=== PATIENT | female | born 1945 | race Caucasian/White ===

== ENCOUNTER 2017-10-19 12:57 | Inpatient (IN) | payer MEDICARE, OTHER, SELFPAY ==
[2017-10-08 11:19] VITALS: BP 150/87; PULSE 54; RESP 17; TEMP 37.1; O2SAT 99; BMI 42.7
--- NOTE | 2017-10-15 15:58 | CASEMGMT ---
TAMIE DAN called and spoke with patient regarding discharge needs after upcoming surgery. Patient states that she has a walker and cane, denies need for further DME. Patient states that she is setup with [facility] for outpatient therapy and that her will be providing transportation. TAMIE DAN will follow up with patient after surgery and will assist with discharge needs.
[2017-10-19] VITALS (12 sets, daily range): BP systolic 156–213; BP diastolic 60–90; PULSE 53–70; RESP 16–18; TEMP 36.7–37; O2SAT 94–100; BMI 42.7
[2017-10-19] MEDS: Acetaminophen 500 MG Tablet 1000 MG PO ×2 (13:38→22:08)
[2017-10-19] MEDS: Celecoxib 200 MG Capsule 400 MG PO (13:38)
[2017-10-19] MEDS: oxyCODONE HCl Cr 10 MG Tablet PO (13:39)
[2017-10-19] MEDS: Scopolamine 1mg/72hr Patch 1 PATCH TD (14:05)
--- NOTE | 2017-10-19 14:55 | KNEE_PTH ---
PATIENT: BIANCA MORAES LOC: [id number] U#:[id number] AGE/SX: 72/F ROOM: [facility] [place] RE10/19/[address]: Dr. Last Blanchard DO : 1945 BED: 1 DIS: 10/20/2017 SPEC #: [id number] RECD: 10/20/17 14:55 STATUS: WES REQ #: [id number] ARNALDO: 10/19/17 14:[address]: Last Blanchard DEPT: SURGICAL PATHOLOGY RECD BY: Chacorta Gill ENTERED: 10/20/17 11:58 SP TYPE: TOTAL KNEE OTHR DR: Dr. Miladys Del Valle DO Tissues: Knee, NOS Procedures: Decalcification bone/plaque Surgery Specimen Level IV HEADER OPERATION: Left total knee replacement PRE-OP DIAGNOSIS: Unilateral primary osteoarthritis left knee TISSUE SUBMITTED: Left knee bone chips MICROSCOPIC DIAGNOSIS Left knee bone, total knee replacement: Pieces of bone with degenerative osteoarthritic changes. CHANDRA:lucas 10/23/17 MICROSCOPIC DESCRIPTION Slides are reviewed. GROSS DESCRIPTION Received is one container designated left knee bone chips. The specimen consists of multiple fragments of kaminski-yellow bone measuring in aggregate 11 x 8 x 3.5 cm. No soft tissue is identified. A number of bony fragments contain articular surfaces consistent with tibial plateau and femoral condyle and displaying prominent osteophyte formation and bone erosion. Geologic Technician sections are submitted in one cassette after decalcification. / CHANDRA:lucas 10/20/17 TC:5 [facility]: [id number], [id number]
--- NOTE | 2017-10-19 15:52 | OP.PN_ITS ---
Immediate Post-Op Note Date of Procedure: 10/19/17 Primary Surgeon/Physician: Last Blanchard shipping receiving manager: Haim Madison Pre-Operative Diagnosis: OA left knee Post-Operative Diagnosis: same Surgery/Procedure Performed:: Left TKR Description of Surgical Findings:: see note Estimated Blood Loss: 25cc Specimen's removed: bone Type of Anesthesia:: Spinal ASA Class: ASA2 Mod Systematic Disease - Admit VTE Documentation VTE Present on Admission: No VTE Mechan Device Prophylaxis: SCD's, Thigh High MARCUS Hose VTE Pharm Prophylaxis ordered?: Yes
--- NOTE | 2017-10-19 16:34 | EKG12_ITS ---
Test Reason : HYPERTENSION Blood Pressure : / mmHG Vent. Rate : 052 BPM Atrial Rate : 052 BPM P-R Int : 278 ms QRS Dur : 104 ms QT Int : 462 ms P-R-T Axes : 063 033 019 degrees QTc Int : 429 ms Sinus bradycardia with 1st degree A-V block Otherwise normal ECG Confirmed by ERNA CAMPOS, DIPESH ([id number]), film and video editor GIRISH FREY ([id number]) on 10/23/2017 8:35:09 AM Referred By: Last Blanchard Confirmed By:DIPESH UMANZOR MD
--- NOTE | 2017-10-19 17:42 | SUR.PHASEI ---
SBP RUNNING IN LOW 200'S PERIODICALLY IN PACU, WAS WELL AT THE END OF THE O.R. CASE PER REPORT. PATIENT DENIES ANY NO CP, VISION CHANGES, HEADACHE, OR OTHER C/O. DR NEVILLE CONFERRED WITH DR GONZALEZ BY PHONE, NO FURTHER TREATMENT NEEDED AT THIS TIME. PATIENT DOES STATE THIS HAS HAPPENED TO ME BEFORE AFTER SURGERY. WILL NOTIFY MED-SURG NURSING.
[2017-10-19] MEDS: Lactated Ringers 1,000 ML 125 ML IV (17:55)
[2017-10-19 18:09] LABS: Hemoglobin 12.1 g/dl (12.0-15.0); Mean Corp Hgb Conc 31.8 g/gl (32-36); Mean Corpuscular Hgb 29.8 pg (27.0-32.0); Mean Corpuscular Volume 93.6 fL (81-99); Mean Platelet Vol. 10.4 fl (6.2-12.0); Platelet Count 288 K/mm3 (150-450); RBC Distribution Width CV 12.5 % (11.6-14.6); RBC Distribution Width SD 41.9 fl (35.1-43.9); Red Blood Count 4.06 M/mm3 (4.2-5.4); White Blood Count 10.6 K/mm3 (4.4-11.0)
[2017-10-19 18:12] LABS: Anion Gap 9 (5-15); BUN 19 mg/dL (7-18); BUN/Creat Ratio 27.8 RATIO (10-20); Calcium,Total 8.8 mg/dL (8.5-10.1); Chloride 106 mmol/L (98-107); Creatinine, Serum 0.68 mg/dL (0.55-1.02); EST Glomerular Filtration Rate 90 mL/min (>60); Est Glom Filt Rate - Afr Amer 109 mL/min (>60); Estimated Creatinine Clearance 79.42 ml/min; Glucose 93 mg/dL (74-106); Sodium Level 141 mmol/L (136-145)
[2017-10-19 18:14] LABS: Scan Indicated on CBC? Y/N NO
--- NOTE | 2017-10-19 20:55 | NURSING ---
Oxygen sats reading 89%. O2 applied at 1L via n/c and sats quickly abeba to 96%
[2017-10-19] MEDS: Carvedilol 12.5 MG Tablet PO (22:08)
[2017-10-19] MEDS: Aspirin 325 MG Tablet PO (22:09)
[2017-10-20 04:15] VITALS: BP 143/57; PULSE 56; RESP 16; TEMP 37.1; O2SAT 97
[2017-10-20] MEDS: Acetaminophen 500 MG Tablet 1000 MG PO ×2 (06:18→13:36)
[2017-10-20 06:30] LABS: Hematocrit 33.7 % (37-47); Hemoglobin 10.7 g/dl (12.0-15.0); Mean Corp Hgb Conc 31.8 g/gl (32-36); Mean Corpuscular Hgb 29.5 pg (27.0-32.0); Mean Corpuscular Volume 92.8 fL (81-99); Mean Platelet Vol. 10.2 fl (6.2-12.0); Platelet Count 222 K/mm3 (150-450); RBC Distribution Width CV 12.8 % (11.6-14.6); RBC Distribution Width SD 43.1 fl (35.1-43.9); Red Blood Count 3.63 M/mm3 (4.2-5.4); White Blood Count 7.9 K/mm3 (4.4-11.0)
[2017-10-20 06:36] LABS: Anion Gap 8 (5-15); BUN 22 mg/dL (7-18); BUN/Creat Ratio 35.6 RATIO (10-20); Calcium,Total 8.4 mg/dL (8.5-10.1); Chloride 106 mmol/L (98-107); Creatinine, Serum 0.62 mg/dL (0.55-1.02); EST Glomerular Filtration Rate 102 mL/min (>60); Est Glom Filt Rate - Afr Amer 123 mL/min (>60); Estimated Creatinine Clearance 79.42 ml/min; Glucose 126 mg/dL (74-106); Sodium Level 141 mmol/L (136-145)
[2017-10-20 06:37] LABS: Scan Indicated on CBC? Y/N NO
--- NOTE | 2017-10-20 07:49 | PCM.PN.ORT ---
Subjective: Pt. reports pain around the thigh from tourniquet, but knee pain is minimal. - Physical Exam General: Alert, Oriented x3, No apparent distress HEENT: Atraumatic Oral: Moist Mucosa Extremities: No clubbing, No cyanosis, No edema, Capillary Refill Less than 3 Seconds, No Calf Tenderness Skin: Incision - stable Neurological: Neuro grossly intact Vital Signs Temp Pulse Resp BP Pulse Ox 98.8 F 56 L 16 143/57 H 97 10/20/17 04:15 10/20/17 04:15 10/20/17 04:15 10/20/17 04:15 10/20/17 04:15 Oxygen Flow Rate (L/min) 2 Oxygen Delivery Method Room Air Weight: 211 lb 13.828 oz Body Mass Index (BMI) 42.7 Intake and Output for Last 24 Hours 10/18/17 10/19/17 10/20/17 23:59 23:59 23:59 Intake Total 1949 789 / 789 Output Total 200 / 200 Balance 1949 589 / 589 Laboratory Tests Past 24 Hrs 10/19/17 10/19/17 10/20/17 17:50 17:50 05:50 WBC 10.6 7.9 RBC 4.06 L 3.63 L Hgb 12.1 10.7 L Hct 38.0 33.7 L MCV 93.6 92.8 MCH 29.8 29.5 MCHC 31.8 L 31.8 L RDW 12.5 12.8 RDW Differential 41.9 43.1 Plt Count 288 222 MPV 10.4 10.2 Sodium 141 Potassium 4.0 Chloride 106 Carbon Dioxide 26.0 Anion Gap 9 BUN 19 H Creatinine 0.68 Estim Creat Clear Calc 79.42 Est GFR (MDRD) Af Amer 109 Est GFR (MDRD) Non-Af 90 BUN/Creatinine Ratio 27.8 H Glucose 93 Calcium 8.8 10/20/17 05:50 WBC RBC Hgb Hct MCV MCH MCHC RDW RDW Differential Plt Count MPV Sodium 141 Potassium 4.0 Chloride 106 Carbon Dioxide 27.0 Anion Gap 8 BUN 22 H Creatinine 0.62 Estim Creat Clear Calc 79.42 Est GFR (MDRD) Af Amer 123 Est GFR (MDRD) Non-Af 102 BUN/Creatinine Ratio 35.6 H Glucose 126 H Calcium 8.4 L Medical Necessity - Tobacco Use Smoking Status: Former smoker Tobacco Use: Cigarettes Assessment/Plan All Active Problems (Last Reviewed 07/30/17 @ 14:43 by Antoinette Kaplan) SVT (supraventricular tachycardia) (Acute) Premature ventricular contraction (Acute) Premature atrial contractions (Acute) Sinus bradycardia (Acute) Palpitations (Acute) s/p L TKR PT today, hoping to go home tonight. Will get everything ready to do so and check back on her this evening.
--- NOTE | 2017-10-20 08:09 | DCINST_ITS ---
Discharge Diet: No Restrictions Discharge Activity: May Not Drive, May Shower, Use Walker May shower in (days): 3 Ice area for (Minutes): 20 - each hour while awake. Weight Bearing Status: Weight bearing as tolerated Elevate: Operative Extremity Additional Activity Instructions:: Wear elastic stockings for 2 weeks after your surgery. Call your doctor if your incision/area has: Continuous Slow Oozing, Sudden Increased Bleeding, Increased Pain/ Swelling, Increased Redness, Foul Smelling Discharge Call your doctor if you observe: Fever of 101 or Higher, Coldness, Increased Pain - in extremity, Numbness or Tingling, Change in Color, Calf discomfort, Uncontrolled pain Change Dressing in (Days):: 0 - and daily as needed. Remove Dressing in (days):: 9 Cleanse incision/area with: Soap & Water Allergies/Adverse Reactions: Allergies Iodinated Contrast- Oral and IV Dye Allergy (Intermediate, Verified 10/08/17 11: 12) Rash Sulfa (Sulfonamide Antibiotics) Allergy (Verified 10/08/17 11:12) Rash Medications to take at Discharge Calcium Carbonate/Vitamin D3 [Calcium 500+D Tablet Chew] 1 ea PO BID 09/12/15 Multivitamin [Daily Multiple Vitamin] 1 ea PO DAILY 09/12/15 Omeprazole [Prilosec] 20 mg PO DAILY 09/12/15 Venlafaxine XR [Effexor Xr] 37.5 mg PO DAILY 09/12/15 Carvedilol 12.5 mg PO BID 10/08/17 Acetaminophen [Tylenol] 1,000 mg PO Q8 #90 tab 10/20/17 Aspirin 325 mg PO BIDCM #60 tab 10/20/17 Oxycodone [Oxyir] 5 - 10 mg PO Q4H PRN PRN 7 Days #90 tab 10/20/17 The following prescriptions were given: Oxycodone [Oxyir] 5 - 10 mg PO Q4H PRN PRN 7 Days #90 tab PRN Reason: Mod-Severe Pain (4-10/10) Acetaminophen [Tylenol] 1,000 mg PO Q8 #90 tab Aspirin 325 mg PO BIDCM #60 tab Primary Care Physician: Miladys Del Valle DO [Primary Care Provider] - Test Results: Test results from this visit will be discussed in further detail at your follow- up appointment, if applicable. Please Follow Up With: Knapic,Last, DO When: see pink sheet
[2017-10-20 08:20] VITALS: BP 160/60; PULSE 56; RESP 18; TEMP 36.7; O2SAT 95
[2017-10-20] MEDS: Multivitamins,Therapeutic Tablet 1 TABLET PO (08:23)
[2017-10-20] MEDS: Aspirin 325 MG Tablet PO (08:23)
[2017-10-20] MEDS: Venlafaxine XR 37.5 MG Capsule PO (08:24)
[2017-10-20] MEDS: Pantoprazole Sodium 20 MG Tablet PO (08:24)
[2017-10-20] MEDS: Carvedilol 12.5 MG Tablet PO (08:24)
[2017-10-20] MEDS: oxyCODONE 5 MG Tablet PO ×2 (08:27→12:09)
--- NOTE | 2017-10-20 09:08 | CASEMGMT ---
CM INITIAL ASSESSMENT: Home: Patient lives in a two story home with first floor setup (bedroom and bathroom). She lives with her spouse. He will assist with transportation to outpatient therapy. HHS/Aides: Denies. Patient has been scheduled for outpatient therapy to start this Thursday. Her will drive her. DME: Walker at bedside and cane at home. Patient also has grab bars in shower. Denies further DME needs. Home Oxygen: Denies. [facility]acy: [facility] [place] PCP: Miladys Del Valle Specialists: Dr. Lang, Dr. Veliz (Gym Instructor) and Dr. Blanchard Patient has a follow-up appointment scheduled for 11/17/[address] Blanchard's office. Outpatient therapy to start this Thursday. DC Plan: Home with outpatient therapy. No further needs identified.
[2017-10-20 11:53] VITALS: BP 162/67; PULSE 64; RESP 18; TEMP 36.5; O2SAT 94
== END 2017-10-20 14:15 | disposition home or self-care (01) | DRG 470 ==
LOC: ACINP 12:57 → MS3 10-20 07:57
PROVIDERS: Admitting Provider Orthopaedic Surgery; Family Provider Internal Medicine; PCP Internal Medicine; Visit Provider Orthopaedic Surgery
PROC: 0SRD069 Replacement of Left Knee Joint with Oxidized Zirconium on Polyethylene Synthetic Substitute, Cemented, Open Approach (ICD-10-PCS; CPT 27447; principal; 2017-10-19 14:30)
DX: M17.12 Unilateral primary osteoarthritis, left knee (principal); R00.2 Palpitations; I10 Essential (primary) hypertension; K21.9 Gastro-esophageal reflux disease without esophagitis; L40.9 Psoriasis, unspecified; Z79.899 Other long term (current) drug therapy; Z96.651 Presence of right artificial knee joint; Z85.3 Personal history of malignant neoplasm of breast; Z90.11 Acquired absence of right breast and nipple; F41.9 Anxiety disorder, unspecified; G47.30 Sleep apnea, unspecified; Z87.891 Personal history of nicotine dependence
CPT/HCPCS: 36415; 80048; 85027; 87081; 88305; 88311; 93005; 97162; 97166; 97530; C1776; J7120; A4216; J2405; J3260

== ENCOUNTER → 2018-07-01 | Outpatient (CLI) | payer MEDICARE, OTHER, SELFPAY ==
--- NOTE | 2018-07-01 12:17 | CT_ITS ---
STUDY: CTA CHEST REASON FOR EXAM: Female, 72 years old. SOB. Right breast CA. RADIATION DOSAGE (If Supplied By Facility): CTDIvol = ( 13.45 ) mGy, DLP = ( 469.60 ) mGycm TECHNIQUE: The examination was performed with the intravenous administration of 100CC IV Isovue 370. Post-processing of the angiographic images was performed, with multiplanar reformation and 3D reconstruction. Individualized dose optimization techniques were used for this CT. COMPARISON: None. FINDINGS: The heart and pericardium are normal. The aorta is normal in caliber, with no aneurysm or dissection. There is no mediastinal mass or adenopathy. There is no hilar or axillary adenopathy. There is no evidence of pulmonary embolus. Pulmonary arteries are unremarkable. There is a moderate right pleural effusion. There is no pulmonary consolidation. There is a 7 x 5 mm nodular density at the intersection of the right minor and major fissures. No additional pulmonary nodule is noted. Fibrotic atelectatic changes are noted in the lingula. There is compressive atelectasis in the right lung base. Visualized abdomen is unremarkable. There is no osseous abnormality. Surgical clips in the right axilla are consistent with lymph node dissection. There are multiple calcifications in the right breast, nonspecific. CT/CTA Chest W/WO Contrast IMPRESSION: 1. No pulmonary embolus or aortic dissection. 2. Right pleural effusion. 3. A 7 mm right pulmonary nodule, possibly fibrotic. Given the history of primary malignancy, 3-6 month follow-up is advised. 4. Right breast calcifications, nonspecific but possibly associated with the patient's known carcinoma. Electronically Signed: Lily Cramer MD at 17:11 EDT Tel , Service support ,
[2018-07-01 12:36] LABS: Anion Gap 7 (5-15); BUN 16 mg/dL (7-18); BUN/Creat Ratio 27.2 RATIO (10-20); Calcium,Total 9.2 mg/dL (8.5-10.1); Chloride 107 mmol/L (98-107); Creatinine, Serum 0.59 mg/dL (0.55-1.02); EST Glomerular Filtration Rate 107 mL/min (>60); Est Glom Filt Rate - Afr Amer 130 mL/min (>60); Glucose 91 mg/dL (74-106); Potassium 4.1 mmol/L (3.5-5.1); Sodium Level 142 mmol/L (136-145)
[2018-07-01 13:47] VITALS: BP 196/74; PULSE 67; RESP 18; O2SAT 97; BMI 42.4
[2018-07-01] MEDS: MethylPREDNISolone 125 MG/2 ML Vial 60 MG IV (14:05)
[2018-07-01] MEDS: DiphenhydrAMINE 50 MG/ML Syringe IV (14:05)
--- NOTE | 2018-07-01 15:42 | NURSING ---
PT TOLERATED CTA WELL. DRESSED AND AMBULATED TO ELEVATOR WITHOUT DIFFICULTY.
== END | disposition home or self-care (01) ==
LOC: CT 12:02
PROVIDERS: Family Provider Internal Medicine; PCP Internal Medicine; Referring Provider Internal Medicine; Visit Provider Internal Medicine
DX: R06.02 Shortness of breath (principal)
CPT/HCPCS: 36415; 71275; 80048; Q9967

== ENCOUNTER → 2018-07-05 10:04 | Outpatient (CLI) | payer MEDICARE, OTHER, SELFPAY ==
[2018-07-01 13:47] VITALS: BMI 42.4
--- NOTE | 2018-07-05 10:09 | RAD_ITS ---
STUDY: X-RAY CHEST REASON FOR EXAM: Female, 72 years old. History of pleural effusion. TECHNIQUE: Right and left decubitus views. COMPARISON: None. FINDINGS: No significant free flowing pleural effusion is seen. RAD/Special CXR (Obl/Decub/A/L) IMPRESSION: No free flowing pleural effusion is seen. Electronically Signed: Abhinav Freeman, at 10:56 EDT , Service support ,
== END ==
PROVIDERS: Family Provider Internal Medicine; PCP Internal Medicine; Referring Provider Internal Medicine; Visit Provider Internal Medicine
DX: J90 Pleural effusion, not elsewhere classified (principal)
CPT/HCPCS: 71046

== ENCOUNTER → 2018-07-13 13:07 | Outpatient (CLI) | payer MEDICARE, OTHER, SELFPAY ==
[2018-07-01 13:47] VITALS: BMI 42.4
[2018-07-13 14:00] LABS: Absolute Lymphocyte Count 1.46 X10^3/ul (0.83-4.51); Absolute Neutrophil Count 6.4 X10^3/uL (2.0-7.7); Basophil# 0.04 X10^3/uL; Basophil% 0.5 % (0-1); Eosinophil# 0.27 X10^3/uL; Eosinophils% 3.1 % (0-5); Hematocrit 41.5 % (37-47); Hemoglobin 13.4 g/dl (12.0-15.0); Lymphocyte # 1.46 X10^3/ul (4.0); Lymphocyte % 16.6 % (19-41); Mean Corp Hgb Conc 32.3 g/gl (32-36); Mean Corpuscular Volume 89.8 fL (81-99); Mean Platelet Vol. 10.1 fl (6.2-12.0); Monocyte# 0.56 X10^3/uL; Monocyte% 6.4 % (0-10); Neutrophil # 6.42 X10^3/uL (2.7-7.7); Neutrophil % 73.1 % (47-70); Platelet Count 304 K/mm3 (150-450); RBC Distribution Width CV 12.6 % (11.6-14.6); Red Blood Count 4.62 M/mm3 (4.2-5.4); White Blood Count 8.8 K/mm3 (4.4-11.0)
[2018-07-13 14:04] LABS: Prothrombin Time (Protime)PT. 13.3 SECONDS (11.7-14.9)
[2018-07-13 14:05] LABS: POSITIVE COUNT NO; POSITIVE DIFFERENTIAL NO; POSITIVE MORPHOLOGY NO; Partial Thromboplast Time 25.8 Seconds (24.1-36.2)
[2018-07-13 14:06] LABS: Erythrocyte Sedimentation Rate 21 mm/hr (0-30)
== END ==
PROVIDERS: Family Provider Internal Medicine; PCP Internal Medicine; Referring Provider Internal Medicine Pulmonary Disease; Visit Provider Internal Medicine Pulmonary Disease
DX: Z01.812 Encounter for preprocedural laboratory examination (principal); J90 Pleural effusion, not elsewhere classified
CPT/HCPCS: 36415; 85025; 85610; 85652; 85730

== ENCOUNTER → 2018-07-14 10:37 | Outpatient (CLI) | payer MEDICARE, OTHER, SELFPAY ==
[2018-07-01 13:47] VITALS: BMI 42.4
--- NOTE | 2018-07-14 10:41 | US_ITS ---
Procedure: Sonographic survey to evaluate for size of pleural effusion in anticipation of ultrasound-guided thoracentesis. Concent: Unknown. Physician: Bharat. Date of procedure July 14, 2018. FINDINGS: Survey images of the right and left lung bases are submitted. There is a small quantity of bibasilar, uncomplicated pleural fluid. US/Chest IMPRESSION: There is not enough pleural fluid to safely perform a thoracentesis. Procedure not performed. Comment: Sonographic imaging services provided for clinical procedure. Please refer to operating physician's procedure note for additional detail. Electronically Signed: Segun Son MD at 11:59 EDT , Service support ,
== END ==
PROVIDERS: Family Provider Internal Medicine; PCP Internal Medicine; Referring Provider Internal Medicine Pulmonary Disease; Visit Provider Internal Medicine Pulmonary Disease
DX: J90 Pleural effusion, not elsewhere classified (principal)
CPT/HCPCS: 76604

== ENCOUNTER → 2018-07-30 13:37 | Outpatient (CLI) | payer MEDICARE, OTHER, SELFPAY ==
[2018-07-01 13:47] VITALS: BMI 42.4
--- NOTE | 2018-07-30 13:41 | RAD_ITS ---
STUDY: X-RAY CHEST REASON FOR EXAM: Female, 72 years old. Pleural effusion TECHNIQUE: PA and lateral views of the chest. COMPARISON: July 05, 2018 minutes a chest x-ray, July 14, 2018 Thoracentesis chest ultrasound FINDINGS: There is partial opacification of the right lower lobe. Blunting of the right costophrenic angle. Postoperative changes in the right axilla. There is borderline cardiomegaly. Normal mediastinum and hazel. Normal visualized pulmonary arteries. Normal visualized aortic arch and descending thoracic aorta. There are diffuse degenerative changes of the visualized thoracic spine. Normal visualized ribs, clavicles, and shoulders. There is no demonstrated abnormality of the visualized soft tissue structures of the upper abdomen. RAD/Chest PA and Lateral IMPRESSION: Moderate volume right effusion. Right lower lobe atelectasis. This is persistent since prior study dated July 01, 2018 CT chest. There is postoperative change in the right axilla and right breast soft tissues status post axillary dissection and probable lumpectomy breast cancer history. Given the history. Consider possible metastatic effusion. Electronically Signed: Nancy Moya MD at 14:11 EDT Tel , Service support ,
== END ==
PROVIDERS: Family Provider Internal Medicine; PCP Internal Medicine; Referring Provider Internal Medicine Pulmonary Disease; Visit Provider Internal Medicine Pulmonary Disease
DX: J90 Pleural effusion, not elsewhere classified (principal)
CPT/HCPCS: 71046

== ENCOUNTER → 2018-08-31 12:40 | Outpatient (CLI) | payer MEDICARE, OTHER, SELFPAY ==
[2018-08-09 13:45] VITALS: BMI 41.8
--- NOTE | 2018-08-31 12:43 | ECHOD_ITS ---
Reason For Study: Arrhythmia Procedure This was a 2D Doppler, Color Flow transthoracic echocardiogram. Myocardial strain analysis was performed in this exam to aid in the assessment of cardiac function. The study was technically difficult. Exam performed in department. Left Ventricle Normal LV size. Left ventricular systolic function is normal. The estimated ejection fraction is 65 %. The global longitudinal strain = -26 % (normal). No evidence for diastolic dysfunction. No regional wall motion abnormalities noted. Right Ventricle Normal RV size. Normal systolic function. Atria The left atrium is mildly enlarged. Normal right atrium. No doppler evidence for ASD. Mitral Valve There is no mitral annular calcification. Normal mitral valve. Trivial mitral valve insufficiency. Tricuspid Valve Normal tricuspid valve. Trivial tricuspid valve insufficiency. Right ventricular systolic pressure estimated to be 40 mmHg. Aortic Valve Trisinus/trileaflet aortic valve. Mild focal aortic valve thickening. Pulmonic Valve The pulmonic valve is not well visualized. Great Vessels Normal sized aortic root. Pericardium/Pleural No pericardial effusion. MMode/2D Measurements & Calculations LVIDd: 4.1 cm IVSd: 1.5 cm Ao root diam: 3.0 cm LVIDs: 2.1 cm LVPWd: 1.2 cm LA dimension: 4.0 cm RVDd: 3.2 cm FS: 48.6 % LAV(MOD-bp): 56.8 ml LA A4 area: 20.5 cm2 LAV(MOD-bp) Indexed: 30.8 ml/m2 LAV(MOD-sp2): 48.8 ml LAV(MOD-sp4): 60.5 ml Time Measurements MV dec time: 0.22 sec Doppler Measurements & Calculations MV E max albino: 84.9 cm/sec Lat Peak E' Albino: 13.5 cm/sec Med Peak E' Albino: 8.6 cm/sec MV A max albino: 94.4 cm/sec E/E' lat: 6.3 E/E' med: 9.9 MV E/A: 0.90 MV V2 max: 94.4 cm/sec MV P1/2t max albino: 95.3 cm/sec Ao V2 max: 148.5 cm/sec MV max P.6 mmHg MV P1/2t: 84.1 msec Ao max P.8 mmHg MV V2 mean: 56.2 cm/sec MV dec slope: 332.1 cm/sec2 Ao V2 mean: 97.0 cm/sec MV mean P.5 mmHg MVA(P1/2t): 2.6 cm2 Ao mean P.3 mmHg MV V2 VTI: 28.1 cm Ao V2 VTI: 37.1 cm LV V1 max: 119.7 cm/sec PA V2 max: 95.3 cm/sec TR max albino: 303.9 cm/sec LV V1 max P.7 mmHg TR max P.9 mmHg LV V1 mean P.6 mmHg LV V1 mean: 75.3 cm/sec LV V1 VTI: 27.7 cm Interpretation Summary The study was technically difficult. Left ventricular systolic function is normal. The estimated ejection fraction is 65 %. The global longitudinal strain = -26 % (normal). The left atrium is mildly enlarged. Trivial mitral valve insufficiency. Trivial tricuspid valve insufficiency. Mild focal aortic valve thickening. Right ventricular systolic pressure estimated to be 40 mmHg. No evidence for diastolic dysfunction. Ordering Physician: Filemon Lang Referring Physician: Miladys Del Valle M.D. Performed By: Jonathon Kaufman RCS
--- NOTE | 2018-08-31 13:24 | RAD_ITS ---
HISTORY: follow up pleural effusion EXAMINATION/TECHNIQUE: XR Chest Special Views: bilateral decubitus chest 2 views COMPARISON: 2 view chest 08/31/2018 FINDINGS: Small right pleural effusion which layers with decubitus positioning and is free. No significant loculated fluid collections. With left lateral decubitus positioning, no significant right basilar infiltrate or atelectasis is seen. No pneumothorax. Normal heart size. No pleural effusion on the left. Right axillary surgical clips. RAD/Special CXR (Obl/Decub/A/L) IMPRESSION: Small right pleural effusion which is free and not loculated. at 0407 Reported and signed by: Conor Butt MD Electronically Signed: Conor Butt, at 4:06 EDT Tel , Service support ,
--- NOTE | 2018-08-31 13:24 | RAD_ITS ---
STUDY: X-RAY CHEST REASON FOR EXAM: Female, 73 years old. Follow-up pleural effusion. TECHNIQUE: PA and lateral views of the chest. COMPARISON: July 30, 2018 FINDINGS: There is a stable right pleural effusion. There are surgical clips projecting over the right axilla and right lower hemithorax. There is stable borderline cardiomegaly. Normal mediastinum and hazel. Normal visualized pulmonary arteries. Normal visualized aortic arch and descending thoracic aorta. Normal visualized thoracic spine. Normal visualized ribs, clavicles, and shoulders. There is no demonstrated abnormality of the visualized soft tissue structures of the upper abdomen. RAD/Chest PA and Lateral IMPRESSION: Stable right pleural effusion, cannot exclude associated right basilar atelectasis and/or pneumonia. Stable borderline cardiomegaly. Electronically Signed: Melanie Ulloa MD at 19:19 EDT Tel , Service support ,
== END ==
PROVIDERS: Family Provider Internal Medicine; PCP Internal Medicine; Referring Provider Internal Medicine Cardiovascular Disease; Visit Provider Internal Medicine Cardiovascular Disease
DX: I47.1 Supraventricular tachycardia (principal); J90 Pleural effusion, not elsewhere classified
CPT/HCPCS: 71046; 93306

== ENCOUNTER → 2018-09-17 14:33 | Outpatient (CLI) | payer MEDICARE, OTHER, SELFPAY ==
[2018-08-09 13:45] VITALS: BMI 41.8
--- NOTE | 2018-09-17 14:38 | RAD_ITS ---
STUDY: X-RAY CHEST REASON FOR EXAM: Female, 73 years old. Shortness of breath TECHNIQUE: Left side down decubitus COMPARISON: [id number] decubitus same day FINDINGS: There are surgical clips in the right axilla. No airspace consolidation. Blunting of the right costophrenic angle correlates to effusion evident on right decubitus x-ray. No layering effusion on the left side. There is borderline cardiomegaly. Normal mediastinum and hazel. Normal visualized pulmonary arteries. Normal visualized aortic arch and descending thoracic aorta. Normal visualized thoracic spine. Normal visualized ribs, clavicles, and shoulders. There is no demonstrated abnormality of the visualized soft tissue structures of the upper abdomen. RAD/Special CXR (Obl/Decub/A/L) IMPRESSION: 1. NO effusion on the left side. 2. Right pleural effusion described on right chest decubitus x-ray. Electronically Signed: Parminder Giang MD at 14:14 EDT , Service support ,
--- NOTE | 2018-09-17 14:38 | RAD_ITS ---
STUDY: X-RAY CHEST REASON FOR EXAM: Female, 73 years old. Pleural effusion TECHNIQUE: [id number] decubitus (one image) COMPARISON: 08/31/2018 FINDINGS: There are surgical clips in the right axilla. No airspace consolidation documented. A small layering right pleural effusion is similar in volume when compared to 08/31/2018. There is borderline cardiomegaly. Normal mediastinum and hazel. Normal visualized pulmonary arteries. Normal visualized aortic arch and descending thoracic aorta. Normal visualized thoracic spine. Normal visualized ribs, clavicles, and shoulders. There is no demonstrated abnormality of the visualized soft tissue structures of the upper abdomen. RAD/Special CXR (Obl/Decub/A/L) IMPRESSION: Similar volume right layering pleural effusion. Electronically Signed: Parminder Giang MD at 14:12 EDT , Service support ,
== END ==
PROVIDERS: Family Provider Internal Medicine; PCP Internal Medicine; Referring Provider Internal Medicine; Visit Provider Internal Medicine
DX: J90 Pleural effusion, not elsewhere classified (principal)
CPT/HCPCS: 71046

== ENCOUNTER → 2018-11-10 10:14 | Outpatient (CLI) | payer MEDICARE, OTHER, SELFPAY ==
[2018-08-09 13:45] VITALS: BMI 41.8
--- NOTE | 2018-11-10 10:19 | US_ITS ---
STUDY: ABDOMINAL ULTRASOUND - RIGHT UPPER QUADRANT REASON FOR VISIT: Female, 73 years old. Right upper quadrant pain. TECHNIQUE: Ultrasound evaluation of the right upper quadrant was performed with real-time and static arteaga-scale imaging. TECHNICAL QUALITY: Adequate. COMPARISON: CT dated 08/18/2016 FINDINGS: Incidentally noted is a right pleural effusion. Liver: The liver measures 13.6 cm. There is increased echogenicity consistent with fatty infiltration. The bile ducts are within normal limits. There is hepatic color flow. The direction of portal flow is hepatopetal. There is no demonstrated mass lesion. Gallbladder: Normal distended gallbladder. The gallbladder wall measures 2 mm. There is a negative sonographic Lim's sign. There is no pericholecystic fluid. There are no gallstones. There is a 3 mm polyp in the gallbladder. Common Bile Duct (C.B.D.): The common bile duct measures 7 mm. Pancreas: The pancreatic head and body are within normal limits. The pancreatic tail is not well-visualized. There is no demonstrated pancreatic mass or cyst. Right Kidney: Normal size of the right kidney. The right kidney measures 11.2 cm. Normal renal cortex. There is no demonstrated renal mass or cyst. There is no right hydronephrosis. US/Abdomen Limited IMPRESSION: 3 mm polyp in the gallbladder. Otherwise, normal gallbladder. Fatty liver. Incidentally noted is a right pleural effusion. Electronically Signed: Vinay Tapia, at 15:02 EDT Tel , Service support ,
== END ==
PROVIDERS: Family Provider Internal Medicine; PCP Internal Medicine; Referring Provider Nurse Practitioner; Visit Provider Nurse Practitioner
DX: K82.4 Cholesterolosis of gallbladder (principal); K76.0 Fatty (change of) liver, not elsewhere classified; R10.11 Right upper quadrant pain
CPT/HCPCS: 76705

== ENCOUNTER → 2018-11-15 09:21 | Outpatient (CLI) | payer MEDICARE, OTHER, SELFPAY ==
[2018-08-09 13:45] VITALS: BMI 41.8
--- NOTE | 2018-11-15 09:24 | NM_ITS ---
CLINICAL: 73-year-old female with reported history of right upper quadrant abdominal pain and nausea. RADIONUCLIDE HEPATOBILIARY SCINTIGRAPHY COMPARISON: Abdominal ultrasound report 11/10/2018 FINDINGS: Following the intravenous administration of 5.6 mCi of 99m Tc Mebrofenin, hepatobiliary images reveal: 1. Relatively prompt and homogeneous radiopharmaceutical concentration is noted by a normal sized liver. No parenchymal defects are identified. 2. Gallbladder activity is identified at 15 minutes post radiopharmaceutical administration. 3. Small intestinal tract is not visualized during 60 minutes of pre-CCK sequential imaging. Small bowel activity is identified following the administration of cholecystokinin. 4. Washout of the radiopharmaceutical by the hepatic parenchyma appears qualitatively normal. Cholecystokinin (0.02 ug/kg) was administered intravenously over a 30-minute period. The post CCK gallbladder ejection fraction calculated at 20 minutes following Cholecystokinin administration was noted to be 76.0 % (normal greater than 35%). During 30 minutes of post CCK imaging, there is no scintigraphic evidence of reflux of the radiotracer into the common hepatic duct or refilling of the gallbladder. AZ/Hepatobilliary Img w/Pharm Int IMPRESSION: 1. NORMAL 99m Tc Mebrofenin hepatobiliary imaging examination with Cholecystokinin. A. A gallbladder ejection fraction calculated to be greater than 35% following the administration of Cholecystokinin makes the probability of functional hepatobiliary disease (gallbladder and/or sphincter of Oddi dyskinesia) and/or organic hepatobiliary disease (chronic acalculous cholecystitis and/or cystic duct syndrome) to be low. (Hussein Cui et al, Journal of Nuclear Medicine 32:1695, 1990). Electronically Signed: Marc Gregory DO at 23:04 EDT Tel , Service support ,
== END ==
PROVIDERS: Family Provider Internal Medicine; PCP Internal Medicine; Referring Provider Nurse Practitioner; Visit Provider Nurse Practitioner
DX: R10.11 Right upper quadrant pain (principal)
CPT/HCPCS: 78227; A9537; J2805

== ENCOUNTER → 2018-12-13 09:55 | Outpatient (CLI) | payer MEDICARE, OTHER, SELFPAY ==
[2018-08-09 13:45] VITALS: BMI 41.8
[2018-12-09 15:43] LABS: Platelet Count 324 K/mm3 (150-450)
[2018-12-09 15:53] LABS: International Normalized Ratio 1.1; Partial Thromboplast Time 26.8 Seconds (24.1-36.2); Prothrombin Time (Protime)PT. 13.5 SECONDS (11.7-14.9)
--- NOTE | 2018-12-13 09:58 | US_ITS ---
PROCEDURE: ULTRASOUND GUIDED THORACENTESIS. DATE: December 13, 2018. INDICATION: Female, 73 years old. Right pleural effusion PHYSICIAN: Abhinav Freeman M.D. PROCEDURE: The risks, benefits, and alternatives to the procedure were explained to the patient. The specific risks of bleeding, infection, and pneumothorax requiring chest tube insertion were discussed and accepted. Written informed consent was obtained. Ultrasonographic evaluation of the right lower pleural space was carried out. An adequate pocket was identified. The patient was placed in the sitting, upright position. The overlying skin was prepped and draped in sterile fashion. 1% lidocaine was administered subcutaneously for local anesthesia. Under ultrasound guidance, a 5 [place] thoracentesis needle/catheter system was advanced into the right posterior lower pleural fluid collection. Approximately 950 mL of julita-colored fluid fluid was drained. The catheter was removed, and a sterile dressing was applied. The patient tolerated the procedure well. A chest x-ray was ordered. US/Thoracentesis W US IMPRESSION: Ultrasound-guided right thoracentesis. Electronically Signed: Abhinav Freeman, at 11:13 EDT , Service support ,
[2018-12-13 10:28] VITALS: PULSE 60; PULSE 66; RESP 16; RESP 18; O2SAT 93; O2SAT 94
--- NOTE | 2018-12-13 10:38 | RAD_ITS ---
STUDY: X-RAY CHEST REASON FOR EXAM: Female, 73 years old. The patient is status post right thoracentesis. TECHNIQUE: AP inspiration and expiration views. COMPARISON: Comparison is made with prior study dated August 31, 2018. FINDINGS: The patient is status post right thoracentesis. Residual mild pleural parenchymal changes at the right lung base. There is no evidence of pneumothorax. Surgical clips are seen in the right axillary region. Incidental note is made of calcific tendinitis of the right rotator cuff. RAD/Chest Insp/Exp 2 View IMPRESSION: Status post right thoracentesis. There is no evidence of pneumothorax. Minimal pleural-parenchymal changes persist at the right lung base. Electronically Signed: Abhinav Freeman, at 11:01 EDT , Service support ,
== END ==
PROVIDERS: Family Provider Internal Medicine; PCP Internal Medicine; Referring Provider Internal Medicine Pulmonary Disease; Visit Provider Internal Medicine Pulmonary Disease
DX: J90 Pleural effusion, not elsewhere classified (principal); Z79.82 Long term (current) use of aspirin
CPT/HCPCS: 32555; 36415; 71046; 85049; 85610; 85730

== ENCOUNTER → 2018-12-21 11:52 | Outpatient (CLI) | payer MEDICARE, OTHER, SELFPAY ==
[2018-08-09 13:45] VITALS: BMI 41.8
--- NOTE | 2018-12-21 11:55 | RAD_ITS ---
STUDY: X-RAY CHEST REASON FOR EXAM: Female, 73 years old. Fluid in the lungs TECHNIQUE: PA and lateral views of the chest. COMPARISON: 12/13/2018 FINDINGS: Increased right lower lobe effusion. Stable COPD. Lungs are otherwise clear. Normal size heart. Normal mediastinum and hazel. Normal visualized pulmonary arteries. Normal visualized aortic arch and descending thoracic aorta. There are diffuse degenerative changes of the visualized thoracic spine. Normal visualized ribs, clavicles, and shoulders. There is no demonstrated abnormality of the visualized soft tissue structures of the upper abdomen. RAD/Chest PA and Lateral IMPRESSION: Increased right basilar effusion Electronically Signed: Rafal Chao DO at 12:59 EDT Tel , Service support ,
--- NOTE | 2018-12-21 11:56 | RAD_ITS ---
STUDY: X-RAY - ABDOMEN/PELVIS REASON FOR EXAM: Female, 73 years old. Right upper quadrant pain. TECHNIQUE: Two AP supine views of the abdomen and pelvis. COMPARISON: Ultrasound dated 11/10/2018. FINDINGS: There is no bowel obstruction. There is a large amount of stool in the colon, consistent with constipation. There are surgical clips noted in the left lower quadrant. The visualized osseous structures are within normal limits. RAD/Abdomen Single View IMPRESSION: No bowel obstruction. Constipation. Electronically Signed: Vinay Tapia, at 16:21 EDT Tel , Service support ,
== END ==
PROVIDERS: Family Provider Internal Medicine; PCP Internal Medicine; Referring Provider Nurse Practitioner; Visit Provider Nurse Practitioner
DX: K59.00 Constipation, unspecified (principal); J90 Pleural effusion, not elsewhere classified; R10.84 Generalized abdominal pain; R05 Cough
CPT/HCPCS: 71046; 74018

== ENCOUNTER → 2019-01-03 13:59 | Outpatient (CLI) | payer MEDICARE, OTHER, SELFPAY ==
[2018-08-09 13:45] VITALS: BMI 41.8
--- NOTE | 2019-01-03 | FLU_PTH ---
PATIENT: BIANCA MORAES LOC: U#:[id number] AGE/SX: 79/F ROOM: RE01/03/[address]: ELI Latham : 1945 BED: DIS: SPEC #: [id number] RECD: 01/03/19 15:02 STATUS: WES DAVIS #: [id number] ARNALDO: 01/03/19 00:[address]: Isela Aldana NP DEPT: CYTOLOGY RECD BY: Chacorta Gill ENTERED: 01/04/19 09:50 SP TYPE: Fluid OTHR DR: Dr. Miladys Del Valle, Tissues: THORACIC FLUID Procedures: Special Stain Group II Surgery Specimen Level IV Cytospin Fluid HEADER OPERATION: Ultrasound-guided right thoracentesis PRE-OP DIAGNOSIS: Right pleural effusion TISSUE SUBMITTED: Thoracentesis fluid for cytology DIAGNOSIS CYTOLOGY Thoracentesis fluid for cytology (cytospin and cell block): Positive for malignant cells consistent with metastatic carcinoma consistent with breast primary. See comment. AM:lucas 01/05/19 COMMENT Immunohistochemistry ([id number]) supports the above diagnosis. Case has been reviewed in consultation with Dr. Kaufman who concurs with the above diagnosis. IDC:SJ CYTOLOGY STUDY Slides are reviewed. CYTOLOGY GROSS Received is 100 ml of cloudy yellow fluid labeled with the patient's name and and designated per the requisition as thoracentesis. Submitted for cytology preparation including cell block. / lucas 01/04/19 TC:0 CPT: 39722, 75762
--- NOTE | 2019-01-03 | IMM_PTH ---
PATIENT: BIANCA MORAES LOC: U#:[id number] AGE/SX: 79/F ROOM: RE01/03/[address]: ELI Latham : 1945 BED: DIS: SPEC #: [id number] RECD: 01/05/19 13:16 STATUS: WES REQ #: [id number] ARNALDO: 01/03/19 00:[address]: Isela Aldana NP DEPT: IMMUNOHISTOCHEMISTRY RECD BY: Betty Monahan ENTERED: 01/05/19 13:19 SP TYPE: IMMUNO OTHR DR: Dr. Miladys Del Valle, Tissues: THORACIC FLUID Procedures: RCC (add) NAPSIN A (add) CK14 (add) CK19 (add) CK20 (add) CK5-6 (add) CK7 (add) CK8 (add) HEP PAR (add) HER2 ROSEY (add) MAMM (add) NE (add) TTF1 (add) Vimentin (add) 34BE12 (add) Pankeratin (add) GATA3 (add) P40 (add) CDX2 (add) ER (initial) S-100 (add) PHYSICIAN & INSTITUTION [place] [address] SPECIMEN INFORMATION: Tissue Source: Thoracentesis fluid Clinical Info: Right pleural effusion Specimen Number: [id number] CPT code: 88190, 22150 x20 METHODOLOGY: Deparaffinized sections of prefer/formalin-fixed tissue or PAP/DQ stained slides are incubated with monoclonal/polyclonal antibodies/oligonucleotide probes. Localization is made via biotin free immunoperoxidase method. Appropriate controls are performed and reacted as expected. Results on target cell population are indicated in the following table: RESULTS: ANTIBODY / CLONE RESULT ER (6F11) positive NE (1E2) positive Her-2neu (CB11) negative Mammaglobin (31A5) positive, focal GATA3 (L50-823) positive AE1-3 (AE1/AE3/PCK26) positive CK7 (OV-TL12/30) positive CK8 (75klqzN60) positive CK20 (KS20.8) negative CDX2 (QXB9290C) negative Vimentin (V9) negative 34BE12 (34BE12) positive S-100 (4C4.9) negative CK19 (A53-B/A2.26) positive TTF-1 (8G7G3/1) negative Napsin A (Rabbit Polyclonal) negative HepPar (OCh1E5) negative RCC (PN-15) negative CK5-6 (D5 & 1684) negative CK14 (LL002) negative P40 (BC28) negative These tests were developed and their performance characteristics determined by [facility]. They may not have been cleared or approved by the U.S. Food and Drug Administration. The FDA has determined that such clearance or approval is not necessary. The above immunohistochemical/dualISH markers are ordered and reviewed by the Pathologist. 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 AM:lucas 01/06/19 Case has been reviewed in consultation with Dr. Kaufman who concurs with the above diagnosis. IDC:SJ
--- NOTE | 2019-01-03 14:02 | US_ITS ---
PROCEDURE: ULTRASOUND GUIDED THORACENTESIS. DATE: January 03, 2019. INDICATION: Female, 73 years old. Right pleural effusion. PHYSICIAN: Abhinav Freeman M.D. PROCEDURE: The risks, benefits, and alternatives to the procedure were explained to the patient. The specific risks of bleeding, infection, and pneumothorax requiring chest tube insertion were discussed and accepted. Written informed consent was obtained. Ultrasonographic evaluation of the right lower pleural space was carried out. An adequate pocket was identified. The patient was placed in the sitting, upright position. The overlying skin was prepped and draped in sterile fashion. 1% lidocaine was administered subcutaneously for local anesthesia. Under ultrasound guidance, a 5 Syriac thoracentesis needle/catheter system was advanced into the right posterior lower pleural fluid collection. Approximately 920 mL of julita-colored fluid was drained. The catheter was removed, and a sterile dressing was applied. A specimen was collected and sent to the laboratory for analysis, as requested by the referring clinician. The patient tolerated the procedure well. A chest x-ray was ordered. US/Thoracentesis W US IMPRESSION: Ultrasound-guided right thoracentesis. Electronically Signed: Abhinav Freeman, at 15:45 EDT , Service support ,
[2019-01-03 14:13] VITALS: BP 154/76; BP 155/70; BP 158/65; PULSE 62; PULSE 66; PULSE 69; RESP 16; RESP 18; O2SAT 95; O2SAT 98
--- NOTE | 2019-01-03 14:45 | RAD_ITS ---
STUDY: X-RAY CHEST REASON FOR EXAM: Female, 73 years old. Status post right thoracentesis. TECHNIQUE: AP inspiration and expiration views. COMPARISON: Comparison is made with prior study dated December 21, 2018. FINDINGS: Surgical clips are seen in the right axillary region. The patient is status post right thoracentesis. Minimal pleural-parenchymal changes persist at the right lung base. Incidental note is made of a right calcific tendinitis. RAD/Chest Insp/Exp 2 View IMPRESSION: Status post right thoracentesis. There is no evidence of pneumothorax. Electronically Signed: Abhinav Freeman, at 15:35 EDT , Service support ,
[2019-01-04 08:21] LABS: Cytology, Body Fluid / CSF SEE PATHOLOGY REPORT
[2019-01-04 09:00] LABS: Body Fluid Mononuclear WBC # 0.012 10^3/uL; Body Fluid Mononuclear WBC % 85.7 %; Body Fluid Polynuclear WBC # 0.002 10^3/uL; Body Fluid Polynuclear WBC % 14.3 %; Body Fluid Total Cells Counted 0.014 10^3/ul (0.000-0.000); White Blood Count/Body Fluid 0.014 10^3/uL
[2019-01-04 09:19] LABS: Appearance/Body Fluid CLEAR; Auto B Fluid Analyzer BKGD Ct COUNTS W/IN LIMITS (W/IN LIMITS); Color/Body Fluid YELLOW
[2019-01-04 09:20] LABS: Red Cell Count/Body Fluid 10 /mm3; Source- Body Fluid THORACENTESIS
[2019-01-04 09:53] LABS: Glucose, Body Fluid 106 mg/dL (40-70)
[2019-01-04 10:30] LABS: Lymphocytes 90 %; Macrophages 1 %; Monocytes 2 %; Neutrophil (Segs) 1 %; Other Cell Type/BF 6 %
[2019-01-04 10:36] LABS: Body Fluid QC Type(s) BF1Q,BF2Q
[2019-01-05 14:50] LABS: Pathologist Comment/Body Fluid Reviewed
== END ==
PROVIDERS: Family Provider Internal Medicine; PCP Internal Medicine; Referring Provider Nurse Practitioner; Visit Provider Nurse Practitioner
DX: J90 Pleural effusion, not elsewhere classified (principal); R07.9 Chest pain, unspecified
CPT/HCPCS: 32555; 71046; 82945; 84157; 87070; 87075; 87205; 88108; 88305; 88313; 88341; 88342; 89050

== ENCOUNTER → 2019-01-17 | Outpatient (CLI) | payer MEDICARE, OTHER, SELFPAY ==
[2018-08-09 13:45] VITALS: BMI 41.8
--- NOTE | 2019-01-17 11:00 | PET_ITS ---
EXAMINATION: FDG PET CT INDICATIONS: A 73-year-old female with reported history of carcinoma of the breast presenting for initial staging examination. COMPARISON EXAMINATION: None available. INDEX LESION SIZE SUV INTERPRETATION Right lower medial hemithorax pleural interface 40.8 mm largest (frame 179) 4.9 (max) Fulfills quantitative criteria for viable neoplasm Axial skeletal structures 8.4 (max) Fulfills quantitative criteria for viable osseous neoplasm TECHNIQUE: Following the intravenous administration of 14.4 mCi of F-18 deoxyglucose via the left antecubital fossa, multiplanar image acquisitions of the neck, chest, abdomen and pelvis to level of mid thigh, obtained at one hour post radiopharmaceutical administration contemporaneously interpreted with the current CT of the neck, chest, abdomen and pelvis to level of mid thigh, dated 01/17/19 via coregistration reveal: SERUM GLUCOSE LEVEL: 88 mg/dl. HEIGHT: 59 inches. WEIGHT: 186 lbs. FINDINGS: 1. There is an increase in glucose metabolism identified in the right lower medial and anteromedial hemithorax at the pleural interface generating a calculated maximum standard uptake value of 4.9. The largest corresponding pleural-based density on review of CT of the chest dated 01/17/19 is approximately 40.8 mm (AP). 2. Enhanced FDG concentration is noted in the first and second lumbar, the ninth, eleventh and twelfth thoracic vertebrae generating a calculated maximum standard uptake value of 8.4. Mixed sclerotic-lytic changes are noted in the analogous locations on review of CT of the chest-abdomen dated 01/17/19. 3. Normal physiologic distribution of the radiopharmaceutical is apparent in the hepatic (2.8) and splenic parenchyma, both renal units, bladder and visualized intestinal tract. There is uniform distribution of the radiopharmaceutical concentration defined in the visualized cerebellar hemispheres and cerebral cortical structures.? Diffuse intestinal tract activity is noted throughout all four quadrants of the abdominal-pelvic retroperitoneum, mesentery consistent with normal physiologic distribution of the radiopharmaceutical. Mild increased glucose metabolism is defined in the right anterior chest wall generating a calculated maximum standard uptake value of 1.3. Quantitative criteria for viable neoplasm are not fulfilled. Pertinent CT findings are as follows. CHEST: A right hemithorax pleural effusion demonstrates no evidence of quantitatively significant increased FDG concentration. Surgical clips are identified in the right breast-chest wall, as well as right axilla. Visualized right and left axillary soft tissue densities demonstrate no evidence of facilitated FDG uptake. There are no parenchymal densities-nodules defined in the right and left hemithorax demonstrating discernible increased glucose metabolism. A subcentimeter density noted in the left lower posterior medial lung field-left lower lobe is ametabolic. ABDOMEN AND PELVIS: Atherosclerotic calcification is defined in the abdominal aorta without evidence of dilatation, aneurysm formation. Pelvic arterial calcification is observed. A prominent fat-containing right inguinal hernia is noted. Bilateral inguinal soft tissue densities with fatty hilus are non-glucose avid. Colonic diverticulosis is defined. The uterus appears surgically absent. Apparent postsurgical changes are defined in the left anterior pelvic wall. SKELETAL: Degenerative changes defined in the cervical, thoracic and lumbar spine demonstrate no evidence for glucose hypermetabolism. Mixed sclerotic-lytic changes are manifest in the ninth, eleventh-twelfth thoracic, first-second lumbar vertebrae with facilitated increased glucose metabolism. PET/PET/CT Tumor Base -Thigh Init IMPRESSION: 1. ABNORMAL EXAMINATION INDICATIVE OF MALIGNANT-METASTATIC VIABLE NEOPLASM. 2. Facilitated radiopharmaceutical concentration observed in the right lower medial hemithorax at the pleural interface fulfills quantitative criteria for viable pleural neoplasm. (Cao, et al, Chest 122:1918, 2002). 3. Osseous skeletal hypermetabolic foci fulfill quantitative criteria for viable osseous neoplasm. (Yary almeida al, Clinical Nuclear Medicine 29:161, 2004). 4. Enhanced tracer distribution noted in the right anterior chest wall does not fulfill quantitative criteria for viable neoplasm and is most consistent with postsurgical change. (Hector almeida al, Journal of Nuclear Medicine 46:34P, 2005). Electronic Signature Marc Gregory D.O. Electronically Signed: Marc Gregory DO at 23:26 EDT Tel , Service support ,
== END | disposition home or self-care (01) ==
LOC: ONC 10:18
PROVIDERS: Family Provider Internal Medicine; PCP Internal Medicine; Referring Provider Internal Medicine Hematology & Oncology; Visit Provider Internal Medicine Hematology & Oncology
DX: C50.111 Malignant neoplasm of central portion of right female breast (principal); J91.0 Malignant pleural effusion
CPT/HCPCS: 78815; A9552

== ENCOUNTER → 2019-01-18 12:55 | Outpatient (CLI) | payer MEDICARE, OTHER, SELFPAY ==
[2018-08-09 13:45] VITALS: BMI 41.8
--- NOTE | 2019-01-18 13:08 | US_ITS ---
PROCEDURE: ULTRASOUND GUIDED THORACENTESIS. DATE: January 18, 2019.. INDICATION: Female, 73 years old. Right pleural effusion. PHYSICIAN: Abhinav Freeman M.D. PROCEDURE: The risks, benefits, and alternatives to the procedure were explained to the patient. The specific risks of bleeding, infection, and pneumothorax requiring chest tube insertion were discussed and accepted. Written informed consent was obtained. Ultrasonographic evaluation of the right lower pleural space was carried out. An adequate pocket was identified. The patient was placed in the sitting, upright position. The overlying skin was prepped and draped in sterile fashion. 1% lidocaine was administered subcutaneously for local anesthesia. Under ultrasound guidance, a 5 Montserratian thoracentesis needle/catheter system was advanced into the right posterior lower pleural fluid collection. Approximately 750 mL of julita-colored fluid was drained. The catheter was removed, and a sterile dressing was applied. The patient tolerated the procedure well. A chest x-ray was ordered. US/Thoracentesis W US IMPRESSION: Ultrasound-guided right thoracentesis. Electronically Signed: Abhinav Freeman, at 8:10 EDT , Service support ,
[2019-01-18 13:16] LABS: Hematocrit 43.5 % (37-47); Hemoglobin 13.6 g/dL (12.0-15.0); Mean Corp Hgb Conc 31.3 g/dL (32-36); Mean Corpuscular Hgb 29.3 pg (27.0-32.0); Mean Corpuscular Volume 93.8 fL (81-99); Mean Platelet Vol. 9.7 fl (6.2-12.0); Platelet Count 348 K/mm3 (150-450); RBC Distribution Width CV 12.4 % (11.6-14.6); RBC Distribution Width SD 42.6 fl (35.1-43.9); Red Blood Count 4.64 M/mm3 (4.2-5.4); White Blood Count 7.2 K/mm3 (4.4-11.0)
[2019-01-18 13:20] LABS: International Normalized Ratio 1.1; Prothrombin Time (Protime)PT. 13.6 SECONDS (11.7-14.9)
--- NOTE | 2019-01-18 14:00 | RAD_ITS ---
STUDY: X-RAY CHEST REASON FOR EXAM: Female, 73 years old. Status post right thoracentesis. TECHNIQUE: AP inspiration and expiration views. COMPARISON: Comparison is made with prior examination dated January 03, 2019. FINDINGS: Surgical clips are seen in the right axillary region. Minimal pleural parenchymal changes are seen at the right lung base. No evidence of pneumothorax. RAD/Chest Insp/Exp 2 View IMPRESSION: No evidence of pneumothorax. Electronically Signed: Abhinav Freeman, at 15:07 EDT , Service support ,
[2019-01-18 14:05] VITALS: BP 146/61; BP 147/75; BP 156/54; BP 156/67; BP 159/63; BP 161/71; PULSE 59; PULSE 61; PULSE 62; PULSE 63; RESP 16; RESP 18; O2SAT 96; O2SAT 99
== END ==
PROVIDERS: Nurse Practitioner; Family Provider Internal Medicine; PCP Internal Medicine; Referring Provider Internal Medicine Hematology & Oncology; Visit Provider Internal Medicine Hematology & Oncology
DX: C50.411 Malignant neoplasm of upper-outer quadrant of right female breast (principal); C79.9 Secondary malignant neoplasm of unspecified site; J91.0 Malignant pleural effusion
CPT/HCPCS: 32555; 36415; 71046; 85027; 85610

== ENCOUNTER → 2019-04-29 11:51 | Outpatient (CLI) | payer MEDICARE, OTHER, SELFPAY ==
[2018-08-09 13:45] VITALS: BMI 41.8
--- NOTE | 2019-04-29 | FLU_PTH ---
PATIENT: BIANCA MORAES LOC: U#:[id number] AGE/SX: 79/F ROOM: RE04/29/[address]: Dr. Fariba James MD : 1945 BED: DIS: SPEC #: [id number] RECD: 04/29/19 13:14 STATUS: WES DINGArlene #: [id number] ARNALDO: 04/29/19 00:[address]: Fariba James DEPT: CYTOLOGY RECD BY: Gena Breaux ENTERED: 04/29/19 14:06 SP TYPE: Fluid OTHR DR: Dr. Miladys Del Valle, Tissues: THORACIC FLUID Procedures: Special Stain Group II Surgery Specimen Level IV Cytospin Fluid HEADER OPERATION: Ultrasound-guided right thoracentesis PRE-OP DIAGNOSIS: Pleural effusion TISSUE SUBMITTED: Thoracentesis fluid for cytology DIAGNOSIS CYTOLOGY Thoracentesis fluid for cytology (cytospin and cell block): Negative for malignant cells. See comment. SJ:lucas 05/02/19 COMMENT Correlation with clinical findings and appropriate follow up are necessary. Please make reference to previous specimen ([id number]) thoracentesis fluid for cytology with diagnosis of positive for malignant cells consistent with metastatic carcinoma consistent with breast primary. CYTOLOGY STUDY Slides are reviewed. CYTOLOGY GROSS Received is 85 ml of yellow hazy fluid labeled with the patient's name and and designated per the requisition as thoracentesis. Submitted for cytology preparation including cell block. / lucas 04/29/19 TC:5 CPT: 51065, 43274
--- NOTE | 2019-04-29 12:09 | US_ITS ---
STUDY: ULTRASOUND-GUIDED RIGHT THORACENTESIS-diagnostic REASON FOR EXAM: Female, 73 years old. Difficulty breathing, right pleural effusion TECHNIQUE: Sonographic guidance COMPARISON: None. FINDINGS: Sonographic evaluation of the right hemithorax showed a large collection of anechoic fluid. Appropriate site for thoracentesis was marked. After informed consent was obtained, the patient was placed sitting upright on the edge of the sonographic bed leaning over on a table slightly. The area was prepped and draped in a sterile manner and 2% Xylocaine was used as local anesthetic. Under fluoroscopic guidance, a 14-gauge valved drainage catheter was advanced into the right hemithorax. 100 mL of straw-colored fluid was withdrawn and sent to the lab per the attending physician''s instructions. Another 900 mL of straw-colored serous fluid was withdrawn from the right thorax. Upright inspiration and expiration chest x-rays showed no pneumothorax and only a small residual right pleural effusion remaining. Patient tolerated the procedure well with no immediate complications and was discharged to home in stable condition. US/Thoracentesis W US IMPRESSION: Successful diagnostic ultrasound-guided thoracentesis Electronically Signed: Matt Koroma MD at 14:51 EST , Service support ,
[2019-04-29 12:29] LABS: Hematocrit 33.1 % (37-47); Mean Corp Hgb Conc 33.2 g/dL (32-36); Mean Corpuscular Hgb 34.2 pg (27.0-32.0); Mean Corpuscular Volume 102.8 fL (81-99); Mean Platelet Vol. 9.1 fl (6.2-12.0); POSITIVE MORPHOLOGY YES; Platelet Count 305 K/mm3 (150-450); RBC Distribution Width CV 17.2 % (11.6-14.6); RBC Distribution Width SD 65.1 fl (35.1-43.9); Red Blood Count 3.22 M/mm3 (4.2-5.4); White Blood Count 3.3 K/mm3 (4.4-11.0)
[2019-04-29 12:31] LABS: International Normalized Ratio 1.1; Partial Thromboplast Time 28.2 Seconds (24.1-36.2); Prothrombin Time (Protime)PT. 13.6 SECONDS (11.7-14.9)
[2019-04-29 12:43] VITALS: BP 130/60; BP 170/67; PULSE 53; PULSE 62; RESP 16; O2SAT 95; O2SAT 96
[2019-04-29 12:56] LABS: Scan Indicated on CBC? Y/N YES- FLAGS NOTED
--- NOTE | 2019-04-29 12:59 | RAD_ITS ---
STUDY: X-RAY CHEST REASON FOR EXAM: Female, 73 years old. Chest pain after thoracentesis TECHNIQUE: Inspiratory and expiratory films after thoracentesis COMPARISON: 01/18/2019 FINDINGS: No postprocedural pneumothorax noted. Small residual right pleural effusion noted with blunting of the right costophrenic angle. The left lung is clear and well expanded. Normal size heart. Normal mediastinum and hazel. Normal visualized pulmonary arteries. Normal visualized aortic arch and descending thoracic aorta. There are diffuse degenerative changes of the visualized thoracic spine. There is degenerative osteoarthritis of the bilateral shoulders. There is no demonstrated abnormality of the visualized soft tissue structures of the upper abdomen. RAD/Chest Insp/Exp 2 View IMPRESSION: No postprocedural pneumothorax Small residual right pleural effusion Left lung is clear Electronically Signed: Matt Koroma MD at 13:19 EST , Service support ,
[2019-04-29 13:24] LABS: Cytology, Body Fluid / CSF SEE PATHOLOGY REPORT
[2019-04-29 13:41] LABS: Body Fluid Mononuclear WBC # 0.426 10^3/uL; Body Fluid Mononuclear WBC % 98.2 %; Body Fluid Polynuclear WBC # 0.008 10^3/uL; Body Fluid Polynuclear WBC % 1.8 %; Body Fluid Total Cells Counted 0.443 10^3/ul; White Blood Count/Body Fluid 0.434 10^3/uL
[2019-04-29 14:11] LABS: Glucose, Body Fluid 103 mg/dL (40-70)
[2019-04-29 14:19] LABS: Auto B Fluid Analyzer BKGD Ct COUNTS W/IN LIMITS (W/IN LIMITS)
[2019-04-29 14:20] LABS: Appearance/Body Fluid CLEAR; Color/Body Fluid YELLOW; Red Cell Count/Body Fluid 189 /mm3; Source- Body Fluid THORACENTESIS
[2019-04-29 14:43] LABS: Lymphocytes 76 %; Macrophages 1 %; Mesothelial Cells 5 %; Monocytes 3 %; Neutrophil (Segs) 15 %
[2019-04-29 14:44] LABS: Body Fluid QC Type(s) BF1Q
[2019-05-02 13:41] LABS: Pathologist Comment/Body Fluid Reviewed
== END ==
PROVIDERS: PCP Internal Medicine; Referring Provider Internal Medicine Hematology & Oncology; Visit Provider Internal Medicine Hematology & Oncology
DX: C79.81 Secondary malignant neoplasm of breast (principal); C80.1 Malignant (primary) neoplasm, unspecified; J91.0 Malignant pleural effusion; R06.02 Shortness of breath
CPT/HCPCS: 32555; 36415; 71046; 82945; 85027; 85610; 85730; 88108; 88305; 88313; 89050

== ENCOUNTER → 2021-11-06 | Outpatient (CLI) | payer MEDICARE, OTHER, SELFPAY ==
--- NOTE | 2021-11-06 09:03 | CDU_ITS ---
Reason For Study: Bruit Rt. Velocities/BP Lt. Velocities/BP Prox CCA 122.9/22.5 cm/sec. Prox CCA 139/33.6 cm/sec. Mid CCA 132.1/26.1 cm/sec. Mid CCA 132.3/35.8 cm/sec. Dist CCA 88.2/24.3 cm/sec. Dist CCA 121.4/29.2 cm/sec. Prox ICA 88.8/21.2 cm/sec. Prox ICA 106.5/31.6 cm/sec. Mid ICA 82.6/23.7 cm/sec. Mid ICA 133.9/37.1 cm/sec. Dist ICA 82.6/23.7 cm/sec. Dist ICA 117.4/31.6 cm/sec. Rt. ICA/CCA = 0.72. Lt. ICA/CCA = 1.01. Prox ECA 115.6/18.8 cm/sec. Prox ECA 112/20.6 cm/sec. Rt. Vert. 54.4/16.3 cm/sec. Lt. Vert. 58.6/17.9 cm/sec. Right Extracranial There is intimal thickening but no significant atherosclerotic plaque noted in the right common carotid artery. There is intimal thickening but no significant atherosclerotic plaque noted in the right internal carotid artery. There is intimal thickening but no significant atherosclerotic plaque noted in the right external carotid artery. Antegrade flow is noted in the right vertebral artery. Left Extracranial There is intimal thickening but no significant atherosclerotic plaque noted in the left common carotid artery. There is intimal thickening but no significant atherosclerotic plaque noted in the left internal carotid artery. The left internal carotid artery is very tortuous. There is intimal thickening but no significant atherosclerotic plaque noted in the left external carotid artery. Antegrade flow is noted in the left vertebral artery. Procedure Carotid Duplex 12827. This is a Carotid Duplex examination using B-mode, color flow and specral Doppler. Exam performed in department. VL/Carotid Duplex Ultrasound Interpretation Summary Intimal thickening of the right carotid bulb and proximal internal carotid ernesto ry with less than 50% stenosis of the internal carotid artery Less than 50% stenosis right external carotid artery Intimal thickening at the left carotid bulb and proximal internal carotid arter y with 50 to 69% stenosis of the left mid internal carotid artery although no significant plaque identified at that location. Less than 50% stenosis left external carotid artery Patent antegrade vertebrals bilaterally Ordering Physician: Filemon Lang Referring Physician: Miladys Del Valle M.D. Performed By: Lili Hernandez RVT
== END | disposition home or self-care (01) ==
LOC: CVS 09:02
PROVIDERS: PCP Internal Medicine; Referring Provider Internal Medicine Cardiovascular Disease; Visit Provider Internal Medicine Cardiovascular Disease
DX: I47.1 Supraventricular tachycardia (principal); R09.89 Other specified symptoms and signs involving the circulatory and respiratory systems; I49.3 Ventricular premature depolarization; I49.1 Atrial premature depolarization; E78.5 Hyperlipidemia, unspecified; I10 Essential (primary) hypertension
CPT/HCPCS: 93880

== ENCOUNTER → 2022-01-14 | Outpatient (CLI) | payer MEDICARE, OTHER, SELFPAY ==
--- NOTE | 2022-01-14 08:06 | VDLE_ITS ---
Reason For Study: pain RIGHT LEFT GSV is normal. CFV is compressible, spontaneous, phasic, CFV is compressible, spontaneous, phasic, competent, and demonstrates normal competent and demonstrates normal augmentation. augmentation. FV is compressible, spontaneous, phasic, competent and demonstrates normal augmentation. POP V is compressible, spontaneous, phasic, competent and demonstrates normal augmentation. T/P Trunk is compressible. PTV is compressible. RT PerV is compressible. Procedure This is a venous duplex using B-mode, color flow and spectral Doppler. Exam performed in department. The exam was diagnostic. A preliminary report was called and/or faxed to Dr. Del Valle. VL/Venous Duplex US, Unilateral Interpretation Summary Deep veins of the right lower extremity are patent and compressible segmentally . There is no evidence of right lower extremity deep vein thrombosis. Valvular competence svetlana ears intact within the proximal deep venous system on the right . The right great saphenous vein a ppears patent and compressible segmentally. Ordering Physician: Miladys Del Valle Performed By: Jerry Jones RVT
== END | disposition home or self-care (01) ==
LOC: CVS 08:04
PROVIDERS: PCP Internal Medicine; Referring Provider Internal Medicine; Visit Provider Internal Medicine
DX: M79.604 Pain in right leg (principal)
CPT/HCPCS: 93971

== ENCOUNTER 2024-09-07 15:15 | Observation (INO) | payer MEDICARE, OTHER, SELFPAY ==
[2024-09-07] VITALS (19 sets, daily range): BP systolic 155–188; BP diastolic 51–83; PULSE 70–82; RESP 15–23; TEMP 36.7–37.6; O2SAT 88–100; BMI 40.2
[2024-09-07 16:44] LABS: Absolute Lymphocyte Count 0.24 X10^3/uL (0.83-4.51); Absolute Neutrophil Count 4.3 X10^3/uL (2.0-7.7); Basophil# 0.01 X10^3/uL; Basophil% 0.2 % (0-1); Eosinophil# 0.05 X10^3/uL; Hematocrit 16.6 % (37-47); Lymphocyte # 0.24 X10^3/ul (0.83-4.51); Mean Corp Hgb Conc 30.7 g/dL (32-36); Mean Corpuscular Hgb 35.4 pg (27.0-32.0); Mean Corpuscular Volume 115.3 fL (81-99); Monocyte# 0.19 X10^3/uL; Monocyte% 3.9 % (0-10); NRBC Flagged by Analyzer 0 % (0-5); Neutrophil # 4.29 X10^3/uL (2.7-7.7); Neutrophil % 88.7 % (47-70); POSITIVE COUNT YES; POSITIVE DIFFERENTIAL YES; POSITIVE MORPHOLOGY YES; RBC Distribution Width CV 16.1 % (11.6-14.6); RBC Distribution Width SD 65.6 fl (35.1-43.9); Red Blood Count 1.44 M/mm3 (4.2-5.4); White Blood Count 4.8 K/mm3 (4.4-11.0)
--- NOTE | 2024-09-07 16:46 | EDS_ITS ---
HPI History of Present Illness Chief Complaint: Abn Labs Informant: patient Narrative Narrative: 79-year-old female states that she is here for low hemoglobin. This case is historically very complicated as the patient was recently admitted at [facility] and gets outpatient care through [facility]. Patient states that she was admitted Hospital and Had an Intestine Surgery. She States That She Did Not Get a Blood Transfusion There. She States That She Gets Monthly Chemotherapy Injections for Breast Cancer at [facility] and Went There Today and Was Told That Her Hemoglobin Level Is Half of What It Should Be. She States That since Being Hospitalized She Feels Very Fatigued and Cold. I went online and given the limitations of [employer] was able to find some information. I see that the patient was admitted into the emergency on 08/12. She had a CT scan which showed ileocolic intussusception. Patient underwent surgery with Dr. Barton hemoglobin on admission to hospital was 10.8. Leukocytes 1.4 platelet count of 200. I see that on 08/20 of this year the patient had a hemoglobin level of 7.3 platelet count of 144. She states that she is having brown soft stools. [facility] Medical History (Updated 09/07/24 @ 18:[address] Jake Cortés, DO) Pleural effusion Hiatal hernia SVT (supraventricular tachycardia) Premature ventricular contraction Premature atrial contractions Breast cancer GERD (gastroesophageal reflux disease) Sinus bradycardia Palpitations Hyperlipidemia Atrial paroxysmal tachycardia Essential (primary) hypertension Home Medications ?Medication ?Instructions ?Recorded ?Last Taken ?Type multivitamin 1 ea PO DAILY SUPPLEMENT Unknown History omeprazole 20 mg capsule,delayed 20 mg PO DAILY GERD 0 09/12/15 10/19/17 10:00 History release venlafaxine 37.5 mg 37.5 mg PO DAILY ANXIETY 10/01/15 05:15 History capsule,extended release 24 hr fulvestrant 250 mg/5 mL 500 mg IM QMONTH 08/08/19 Un known History intramuscular syringe (Faslodex) calcium 500 mg (as carbonate)-vit 2 tab PO DAILY SUPPL EMENT 09/26/20 Unknown History D3 10 mcg (400 unit) chewable tablet loratadine 10 mg tablet (Claritin) 10 mg PO DAILY PRN allergy symptoms 09/26/20 Unknown History Lactobacillus rhamnosus GG 5 1 tab PO BID PRN 09/30/21 Unknown History billion cell chewable tablet (Culturelle Kids Probiotics) cyanocobalamin (vitamin B-12) 5,000 mcg PO DAILY 09/30 Unknown History 5,000 mcg disintegrating tablet elderberry fruit 460 mg-elderberry 1 cap PO DAILY 09/20 04/13 Unknown History flower 115 mg capsule melatonin 3 mg tablet 6 mg PO HS PRN sleep 2 Unknown History palbociclib 125 mg tablet (Ibrance) 125 mg PO .COMPLEX 09/30/21 Unknown History carvedilol 12.5 mg tablet See Rx Instructions .Route 1 04/05/23 Unknown Rx .COMPLEX #180 tabs Allergy/AdvReac Type Severity Reaction Status Date / Time Iodinated Contrast Media Allergy Intermediate Rash Verified 09/07/24 15:18 (Iodinated Contrast- Oral and IV Dye) Sulfa (Sulfonamide Allergy Rash Verified 09/07/24 15:18 Antibiotics) Family History Mother CAD (coronary artery disease) Surgical History History of lung surgery History of left knee replacement History of hernia repair (~07/2016) History of breast reconstruction History of breast biopsy History of total right knee replacement History of partial mastectomy of right breast Status post wrist surgery History of total hysterectomy Social History Smoking Status: Former smoker alcohol intake: current details: occasional substance use type: does not use ROS ROS ED ROS Narrative Fatigue Constitutional Constitutional ED: Reports weight loss; Denies chills or fever(s) Eyes Eyes: Denies change in vision or diplopia ENT ENT ED: Denies ear pain, rhinorrhea or sore throat Cardiovascular Cardiovascular: Denies chest pain, orthopnea, palpitations or racing heartbeat Respiratory/Chest Respiratory/Chest: Denies cough, dyspnea or orthopnea Gastrointestinal Gastrointestinal: Denies abdominal pain, diarrhea, nausea or vomiting Genitourinary Genitourinary ED: Denies dysuria, hematuria or urinary frequency Musculoskeletal Musculoskeletal: Denies arthralgias or myalgias Integumentary Denies abscess or rash Neurologic Neurologic: Denies headache(s) or weakness Psychiatric Psychiatric: Denies anxiety, depression, suicidal ideation or suicidal thoughts Endocrine Endocrinology: Denies polydipsia, polyphagia or polyuria Allergic/Immunologic Allergic/Immunologic ED: Denies mouth swelling, tongue swelling or urticaria EXAM Physical Exam Const Vital Signs: 09/07/24 15:15 09/07/24 16:15 09/07/24 16:28 Temperature 98.3 F Temperature Source Oral Pulse Rate 82 79 Respiratory Rate 16 21 H Respiratory Effort Short of Breath Respiratory Pattern Normal Blood Pressure 155/59 H Blood Pressure Mean 91 Blood Pressure Source Blood Pressure Position Blood Pressure Location Pulse Ox 98 88 Oxygen Delivery Method Room Air Room Air Oxygen Flow Rate (L/min) 09/07/24 16:33 09/07/24 17:20 09/07/24 18:00 Temperature Temperature Source Pulse Rate 74 76 80 Respiratory Rate 21 H 23 H 15 Respiratory Effort Respiratory Pattern Blood Pressure 179/66 H 162/62 H 178/51 H Blood Pressure Mean 103 95 93 Blood Pressure Source Blood Pressure Position Blood Pressure Location Pulse Ox 100 100 97 Oxygen Delivery Method Nasal Cannula Room Air Nasal Cannula Oxygen Flow Rate (L/min) 2 2 09/07/24 18:44 09/07/24 18:55 09/07/24 18:59 Temperature 99.4 F H 99.4 F H 99.6 F H Temperature Source Temporal Temporal Pulse Rate 78 79 80 Respiratory Rate 20 H 15 18 Respiratory Effort Respiratory Pattern Blood Pressure 182/57 H 181/56 H 177/62 H Blood Pressure Mean 98 97 100 Blood Pressure Source Monitor Monitor Blood Pressure Position Semi-Fowlers Semi-Fowlers Blood Pressure Location Left Arm Left Arm Pulse Ox 95 97 97 Oxygen Delivery Method Nasal Cannula Nasal Cannula Oxygen Flow Rate (L/min) 2 2 Positive well nourished, well developed and obese General Appearance ED: well developed and NAD Nutritional Appearance: obese HEENT Reports normocephalic, head/scalp atraumatic and moist mucous membranes Eyes PERRL and EOMs intact bilaterally Neck no lymphadenopathy, supple and no JVD Resp normal respiratory effort and clear to auscultation bilaterally Cardio regular rate, regular rhythm and no murmurs GI GI Narrative: There is a healing abdominal midline incision Inspection: Negative for abdominal distention Auscultation: normoactive bowel sounds Palpation: soft; Negative for guarding or rebound tenderness present Back/Spine no CVA tenderness and normal ROM Extremity normal to inspection General Extremety ED: Negative for edema General Extremity: Negative for edema Neuro oriented x3 and CN's II-XII intact bilaterally Sensorium / Orientation: alert Motor Exam: strength 5/5 throughout Psych mental status grossly normal Mood & Affect: Negative for depressed or tearful Skin no rashes or lesions noted and no wounds MDM MDM MDM Narrative Medical decision making narrative: Differential diagnosis includes but not limited to anemia requiring transfusion blood loss anemia bone marrow suppression dehydration Patient's white count is 4.8 hemoglobin level is 5.1. Interesting is that her MCV level is 115.3. BUN of 13 creatinine 0.81. She is Hemoccult negative. LFTs show an alkaline phosphatase of 108 total protein of 5.6 albumin 2.7. She is O+. She is typed and crossed for 2 units. Patient does not have any specific abdominal complaints. Her incision appears clean dry and intact. She does not have any evidence of blood per rectum or in the stool. The patient B12 returns at 885. Folic acid is currently pending. Plan of care will be admission for transfusion. History & Record Review Discussion w/independent historian: Patient and Family Additional record(s) reviewed:: Prior inpatient record, Prior outpatient record, Prior ED visit and Prior labs Lab Data Attestation: I reviewed the patient's lab results. Labs: Laboratory Results - last 24 hr 09/07/24 16:30 WBC 4.8 RBC 1.44 L Hgb 5.1 L* Hct 16.6 L MCV 115.3 H MCH 35.4 H MCHC 30.7 L RDW Std Deviation 65.6 H RDW Coeff of Isaias 16.1 H Plt Count TNP MPV TNP Immature Gran % (Auto) 1.200 H Neut % (Auto) 88.7 H Lymph % (Auto) 5.0 L Weakley % (Auto) 3.9 Eos % (Auto) 1.0 Baso % (Auto) 0.2 Absolute Neuts (auto) 4.3 Absolute Lymphs (auto) 0.24 L Nucleated RBC % 0 Differential Comment SCANNED Platelet Estimate ADEQUATE Polychromasia 2+ Anisocytosis 2+ Sodium 138 Potassium 3.8 Chloride 102 Carbon Dioxide 22.9 Anion Gap 14 BUN 13 Creatinine 0.81 Estim Creat Clear Calc 58.27 Est GFR (MDRD) Non-Af 75 BUN/Creatinine Ratio 15.7 Glucose 85 Calcium 8.6 Total Bilirubin 0.77 AST 33 H ALT 9 Alkaline Phosphatase 108 H Total Protein 5.6 L Albumin 2.7 L Globulin 2.9 Albumin/Globulin Ratio 1.0 Vitamin B12 885 Blood Type O POSITIVE Antibody Screen NEGATIVE Crossmatch See Detail Management Discussion w/another healthcare provider: Hospitalist (Dr Atkinson) Discharge Plan Dx/Rx/DC Orders Clinical Impression: Weakness, History of breast cancer, Anemia requiring transfusions Disposition Disposition: Acute Care Hospital [facility]
[2024-09-07 17:13] LABS: AST(SGOT) 33 U/L (<=31); Alanine Aminotransfer ALT/SGPT 9 U/L (<=34); Albumin, Serum 2.7 g/dL (3.4-4.8); Alkaline Phosphatase 108 U/L (35-104); Anion Gap 14 (5-15); BUN 13 mg/dL (4-19); BUN/Creat Ratio 15.7 RATIO (10-20); Calcium,Total 8.6 mg/dL (7.6-11.0); Carbon Dioxide 22.9 mmol/L (21.0-32.0); Chloride 102 mmol/L (98-108); Creatinine, Serum 0.81 mg/dL (0.70-1.20); EST Glomerular Filtration Rate 75 (>60); Estimated Creatinine Clearance 58.27 ml/min (50-250); Globulin 2.9 g/dL (2.2-4.2); Glucose 85 mg/dL (70-99); Potassium 3.8 mmol/L (3.3-5.1); Protein, Total 5.6 g/dL (5.9-8.4); Sodium Level 138 mmol/L (133-145); Total Bilirubin 0.77 mg/dL (0.00-1.30)
[2024-09-07 17:18] LABS: Hemoglobin 5.1 g/dL (12.0-15.0)
[2024-09-07 17:19] LABS: Differential Indicated SCAN CRITERIA MET
[2024-09-07 18:27] LABS: Differential Comment SCANNED
[2024-09-07 18:28] LABS: Anisocytosis 2+; Platelet Estimate ADEQUATE (ADEQ); Polychromasia 2+
--- NOTE | 2024-09-07 18:44 | HP.PCM.HOS_ITS ---
HPI - General General Date of Admission: 09/07/24 Date of Service: 09/07/24 Chief Complaint: Low hemoglobin level HPI Narrative BIANCA MORAES, is a 79 F who presented to [facility] ED on 09/07/2024 with low hemoglobin level. Patient has complex recent medical history, reviewed [facility] records. Patient was recent hospitalized at [facility] in [place] for an acute small bowel obstruction secondary to ileocolic intussusception. She underwent surgery at that time. Hemoglobin on admission to the hospital and was 10.8 but had dropped to 7.3 by the day of discharge on 08/20. She had follow-up labs drawn today that showed a hemoglobin of 5.1 so she was referred to the ED for further evaluation. Patient lives at home by herself. She was initially discharged to SNF but did not have a good experience there so she went home. She has at home health care seeing her since then. Patient actually works at [facility] and has good follow-up established there. She has prior history of breast cancer and the pathology from the small obstruction showed cancer consistent with a metastatic lesion from breast cancer. She is scheduled to see Dr. Hills with Oncology in the office next week. States that she has been feeling somewhat weak and fatigued over the past week or so but has otherwise been doing okay. She has been having normal bowel movements. Notably MCV was 115 on CBC today. Patient has vitamin B12 5000 mcg daily prescribed but she is unsure if she is taking this. 2 units of blood were ordered as well as folate and vitamin B12 levels, and hospitalist was contacted for admission. I saw the patient at bedside in the ED. Patient was pale appearing and mildly fatigued appearing but otherwise sitting back comfortably in bed, conversing normally and in no acute distress. She denied any acute pain or discomfort currently. No other acute concerns. Will be admitted for further management. [facility] Medical History (Updated 09/07/24 @ 18:[address] Jake Cortés, DO) Pleural effusion Hiatal hernia SVT (supraventricular tachycardia) Premature ventricular contraction Premature atrial contractions Breast cancer GERD (gastroesophageal reflux disease) Sinus bradycardia Palpitations Hyperlipidemia Atrial paroxysmal tachycardia Essential (primary) hypertension Home Medications ?Medication ?Instructions ?Recorded ?Last Taken ?Type multivitamin 1 ea PO DAILY SUPPLEMENT Unknown History omeprazole 20 mg capsule,delayed 20 mg PO DAILY GERD 0 6/22/16 07/30/18 10:00 History release venlafaxine 37.5 mg 37.5 mg PO DAILY ANXIETY 10/01/15 05:15 History capsule,extended release 24 hr fulvestrant 250 mg/5 mL 500 mg IM QMONTH 08/08/19 Un known History intramuscular syringe (Faslodex) calcium 500 mg (as carbonate)-vit 2 tab PO DAILY SUPPL EMENT 09/26/20 Unknown History D3 10 mcg (400 unit) chewable tablet loratadine 10 mg tablet (Claritin) 10 mg PO DAILY PRN allergy symptoms 09/26/20 Unknown History Lactobacillus rhamnosus GG 5 1 tab PO BID PRN 09/30/21 Unknown History billion cell chewable tablet ([employer]ll[employer]ood Kids Probiotics) cyanocobalamin (vitamin B-12) 5,000 mcg PO DAILY 09/30 Unknown History 5,000 mcg disintegrating tablet elderberry fruit 460 mg-elderberry 1 cap PO DAILY 09/20 04/13 Unknown History flower 115 mg capsule melatonin 3 mg tablet 6 mg PO HS PRN sleep 2 Unknown History palbociclib 125 mg tablet (Ibrance) 125 mg PO .COMPLEX 09/30/21 Unknown History carvedilol 12.5 mg tablet See Rx Instructions .Route 1 04/05/23 Unknown Rx .COMPLEX #180 tabs Allergy/AdvReac Type Severity Reaction Status Date / Time Iodinated Contrast Media Allergy Intermediate Rash Verified 09/07/24 15:18 (Iodinated Contrast- Oral and IV Dye) Sulfa (Sulfonamide Allergy Rash Verified 09/07/24 15:18 Antibiotics) Family History Mother CAD (coronary artery disease) Surgical History History of lung surgery History of left knee replacement History of hernia repair (~07/2016) History of breast reconstruction History of breast biopsy History of total right knee replacement History of partial mastectomy of right breast Status post wrist surgery History of total hysterectomy Social History Smoking Status: Former smoker alcohol intake: current details: occasional substance use type: does not use ROS Constitutional Constitutional: Reports fatigue; Denies chills, fever(s) or weakness Eyes Eyes: Denies change in vision Cardiovascular Cardiovascular: Denies chest pain Respiratory/Chest Respiratory/Chest: Denies shortness of breath at rest Gastrointestinal Gastrointestinal: Denies abdominal pain Musculoskeletal Musculoskeletal: Denies arthralgias or myalgias Neurologic Neurologic: Denies dizziness, focal weakness or headache(s) Vital Signs Vital Signs Vital Signs: 09/07/24 15:15 09/07/24 16:15 09/07/24 16:28 Temperature 98.3 F Temperature Source Oral Pulse Rate 82 79 Respiratory Rate 16 21 H Respiratory Effort Short of Breath Respiratory Pattern Normal Blood Pressure 155/59 H Blood Pressure Mean 91 Pulse Ox 98 88 Oxygen Delivery Method Room Air Room Air Oxygen Flow Rate (L/min) 09/07/24 16:33 09/07/24 17:20 Temperature Temperature Source Pulse Rate 74 76 Respiratory Rate 21 H 23 H Respiratory Effort Respiratory Pattern Blood Pressure 179/66 H 162/62 H Blood Pressure Mean 103 95 Pulse Ox 100 100 Oxygen Delivery Method Nasal Cannula Room Air Oxygen Flow Rate (L/min) 2 Weight Weight: 90.4 kg Body Mass Index (BMI) 40.2 Physical Exam Const alert, oriented x3 and no apparent distress Constitutional Narrative: Elderly female, class III obesity, mildly fatigued and pale appearing, otherwise laying back comfortably in bed, conversing normally, in no acute distress. General Appearance: cooperative and comfortable HEENT normocephalic, head/scalp atraumatic, hearing grossly normal bilaterally, nasal mucous membranes and turbinates normal and moist oral mucous membranes Eyes PERRL, EOMs intact bilaterally and conjunctivae normal Neck full ROM Chest inspection of chest normal Resp normal respiratory effort, normal air movement, no use of accessory muscles and clear to auscultation bilaterally Cardio regular rate, regular rhythm, no murmurs and peripheral pulses 2+ throughout GI normal to inspection, nondistended, normoactive bowel sounds, soft to palpation, non-tender and non-distended Back/Spine normal ROM Extremity normal to inspection, full ROM and no pedal edema Skin no rashes or lesions noted Psych mental status grossly normal Results Lab / Micro Data 09/07/24 16:30 09/07/24 16:30 Labs: Laboratory Results - last 24 hr 09/07/24 16:30: WBC 4.8, RBC 1.44 L, Hgb 5.1 L*, Hct 16.6 L, MCV 115.3 H, MCH 35.4 H, MCHC 30.7 L, RDW Std Deviation 65.6 H, RDW Coeff of Isaias 16.1 H, Plt Count TNP, MPV TNP, Immature Gran % (Auto) 1.200 H, Neut % (Auto) 88.7 H, Lymph % (Auto) 5.0 L, Coffee % (Auto) 3.9, Eos % (Auto) 1.0, Baso % (Auto) 0.2, Absolute Neuts (auto) 4.3, Absolute Lymphs (auto) 0.24 L, Nucleated RBC % 0, Differential Comment SCANNED, Platelet Estimate ADEQUATE, Polychromasia 2+, Anisocytosis 2+, Sodium 138, Potassium 3.8, Chloride 102, Carbon Dioxide 22.9, Anion Gap 14, BUN 13, Creatinine 0.81, Estim Creat Clear Calc 58.27, Est GFR (MDRD) Non-Af 75, BUN/Creatinine Ratio 15.7, Glucose 85, Calcium 8.6, Total Bilirubin 0.77, AST 33 H, ALT 9, Alkaline Phosphatase 108 H, Total Protein 5.6 L, Albumin 2.7 L, Globulin 2.9, Albumin/Globulin Ratio 1.0, Blood Type O POSITIVE, Antibody Screen NEGATIVE, Crossmatch See Detail Micro: Microbiology 09/07/24 17:28 Stool Stool Occult Blood (GE[facility]) - Final Assessment & Plan Assessment/Plan (1) Anemia requiring transfusions: PLAN: Plan Patient is a 79-year-old female who presented [facility] ED on 09/07/2024 for low hemoglobin level. 1. Acute on chronic macrocytic anemia ? Admit under patient status to [facility]. Hemoglobin 5.1 on admit, MCV 115. Most recent hemoglobin was 7.3 at outside hospital on 08/20. See HPI for further details. Stool occult is negative and patient with normal bowel movements. No other overt areas of blood loss noted. Suspect poor absorption of folate due to recent ileocecectomy is playing a role. Folate and vitamin B12 level ordered. Will transfuse with 3 units of blood tonight and recheck CBC tomorrow. If hemoglobin is responded well, patient should be fine for discharge home tomorrow. Continue home vitamin B12 supplement. 2. Recent SBO secondary to ileocecal intussusception s/p surgical ileocecectomy due to metastatic breast cancer with acute on chronic debility ? Patient with recent hospitalization at [facility] in [place] for ileocecal intussusception s/p surgical ileocecectomy. Pathology consistent with metastatic lesion from breast cancer. Has history of breast cancer from 15 years ago that was in remission until now. Has an appointment with Dr. Hills with oncology scheduled for next week. Lives at home alone and was recently discharged to SNF but had a poor experience there and opted to go home with home health care shortly after that. Patient has home health care set up so we will hold off on having case management or therapy see her while here, as I anticipate this will be a short hospitalization for her. 3. GERD ? Continue home PPI. 4. Hypertension ? Continue home Coreg. 5. Class III obesity ? BMI 40 on admit. Complicates hospital course, care and prognosis. DVT prophylaxis: SCDs CODE STATUS: Full code, verified Expected disposition: Home, 2 to 3 days Total clinical time spent by myself addressing the patient's medical issues, reviewing all the data, and collaborating with patient's care team: 75 minutes. Charges/Coding Visit Charges Inpatient E&M: 75412 Init Hosp L3
[2024-09-07 19:08] LABS: Vitamin B12 885 pg/mL (180-914)
--- NOTE | 2024-09-07 20:00 | CASEMGMT ---
Care Management Face to Face with patient for initial transition planning/care coordination assessment in the ED.? This news writer introduced self and role at [facility]. Patient alert and oriented. Patient willing to participate in assessment and is able to answer all questions appropriately.? Care providers, pharmacy, and demographics verified. Admitting Diagnosis: ?Anemia Other diagnosis history: ?breast cancer, hyperlipidemia, tachycardia, hypertension PCP: ?Eligio Specialists: ?[facility] oncology, public health engineer Preferred Pharmacy: [facility] Insurance: ?Medicare Prescription Benefit: ?yes Living Will/HPOA: would like to complete while admitted LNOK: daughter Living Arrangements: ?patient lives alone in a one story home, has required assistance with ADLs.? Transportation: ?daughter driving DME: ?walker, lift chair, raised toilet, bed rail, grab bars in bathroom, Alexas in 5 rooms set to call family if needed HHC: ?HH through [facility], OT and PT started this week SNF/Rehab: ?[facility] Community Resources: ?none Behavioral Health History: ?none Patient goals: Patient goals uncertain at this time. Disposition Plan: admission to acute; RN CM/SW to follow for discharge planning needs that may arise. Marian Guzman, DESKTOP ARCHITECT, STRUCTURAL IRON WORKER
--- OUTSIDE RECORDS SUMMARY | 2024-09-07 22:49 | XMS RPT_ITS | CCD ---
Author Organization [facility] Care Team Providers Care Java Developer Architect Name Role Phone Fady VAULT TELLER, Margret N Unavailable Unavailab le Fady VAULT TELLER, Margret N Unavailable Unavailab le Fady VAULT TELLER, Margret N Unavailable Unavailab Dot Schmitz Unavailable Niharika Leon Unavailable Unavailable Eloy Kwan Unavailable Unavailable Indu Lee Unavailable Unavailable Unavailable Unavailable Apollo Nicholson Unavailable Gravius, Denisa Unavailable Unavailable Yelena Aldana Unavailable Bhumika Ravi Unavailable Unavailable Julita Longoria Unavailable Unavailable Unavailable Unavailable Eloy Kwan Unavailable Unavailable Eloy Lee Unavailable Unavailable Niharika Leon Unavailable Unavailable Jorge, Shanta Unavailable Unavailable Gravius, Denisa Unavailable Unavailable Dot Allen DO Unavailable Apollo Nicholson Unavailable Gravkerry ALVAREZ, Denisa Unavailable Unavailable Niharika Leon RN Unavailable Unavailable Jesus HERNADEZ, Eloy Unavailable Unavailable Jorge VAULT TELLER, Shanta Unavailable Unavailable Unavailable Unavailable Slarb VAULT TELLER, Anushka Unavailable Unavailable Dot Allen DO Primary Care Provider Julita Galarza RN Unavailable Unavailable Apollo Daly Unavailable Stephania Hayes MD Unavailable Carito La RN Unavailable Stephania Hayes MD Unavailable Carito La RN Unavailable Dr. Dot Allen Primary Care Provider Dr. Dot Allen Referring Provider Dr. Dipesh Lang Attending Provider Dr. Apollo Valero Attending Provider Dot Allen DO Primary Care Provider Apollo Daly Unavailable Stephania Hayes MD Unavailable Abhinav WILLETT, Carito Unavailable Eligio DODot Primary Care Provider Abhinav WILLETT, Carito Unavailable Eligio DO, Dot Unavailable Tatum Santana [place] [facility] Unavailable Unavailable Unavailable Dr. Dipesh Lang Referring Provider [phone] Lucero Allenhleen Primary Care Unavailable Apollo Valero Attending Unavailable Dipesh Lang Referring Unavailable Dot Allen Primary Care Unavailable Dipesh Lang Referring Unavailable Dipesh Lang Attending Unavailable EligioDot crow Referring Unavailable EligioDot crow Attending Unavailable Dot Allen Primary Care Unavailable Dot Allen Referring Unavailable Dot Allen Primary Care Unavailable Dipesh Lang Attending Unavailable Eligio DO, Dot Attending Unavailable Eligio DO, Dot Referring Unavailable Eligio DO, Dot Consulting Unavailable [place] DIGITAL MEDIA STRATEGIST, Kayela Unavailable Unavailable Dot Allen DO Primary Care Provider Apollo Daly Unavailable Stephania Hayes MD Unavailable Abhinav WILLETT, Carito Unavailable Dipesh Lang Unavailable TATUM SANTANA Attending Unavailable DOT ALLEN Referring Unavailab le DOT ALLEN Primary Care Unavailab le [facility], [facility] Unavailable Alla VAULT TELLER, Zaki Unavailable Unavailable Dot Allen Unavailable Keith Cao Admitting Unavailable Keith Cao Attending Unavailable Keith Cao Referring Unavailable Eligio, Dr. Dot Giles Primary Care Unavailab le CaoKeith Admitting Unavailable CaoKeith Attending Unavailable CaoKeith Referring Unavailable Eligio, Dr. Dot Giles Primary Care Unavailab Dimas Gallegos Attending Unavailable Eligio, Dr. Dot Giles Primary Care Unavailab Dimas Gallegos Attending Unavailable Eligio, Dr. Dot Giles Primary Care Unavailab aidan La RN, Carito Unavailable Jeana CAMPOS, Damaso Unavailable Precious CAMPOS, Dipesh Dwyer Unavailable RICHARD CALDERÓN Attending Unavailable MONICA TOMPKINS Referring Unavailable ELIGIODOT Primary Care Unavailab le Eligio Dot MATT Primary Care Provider DOT ALLEN Primary Care Unavailable NANCI MCGEE Attending Unavailable Eligio Dot MATT Primary Care Provider DIMAS RUIZ Attending Unavailable DOT ALLEN Primary Care Unavailable YELENA GARCIA Attending Unavailable DTO ALLEN Primary Care Unavailable ELIGIODOT Primary Care Unavailab le ABRAMOVICDAMASO Borjas Referring Unavailable ELIGIODOT Primary Care Unavailab LUCIANA Patino Attending Unavailable LUCIANA FLOREZ Referring Unavailable ELIGIODOT CROW Primary Care Unavailab le ABRAMDAMASO JETER Referring Unavailable ELIGIODOT Primary Care Unavailab STEPHANIA Villafuerte Referring Unavailable ELIGIODOT Primary Care Unavailab STEPHANIA Villafuerte Referring Unavailable ELIGIODOT Primary Care Unavailab le ABRAMOVICDAMASO Borjas Referring Unavailable JYOTHIOVICHDAMASO Attending Unavailable DOT ALLEN Primary Care Unavailab STEPHANIA Villafuerte Referring Unavailable ELIGIO, DOT BUNDY Primary Care Unavailab le ABRAMOVICDAMASO Borjas Referring Unavailable ELIGIODOT Primary Care Unavailab le ABRAMDAMASO JETER Referring Unavailable ELIGIODOT Primary Care Unavailab STEPHANIA Villafuerte Referring Unavailable ELIGIODOT Primary Care Unavailab le ABRAMSTEFFANY, DAMASO Attending Unavailable ELIGIO, DOT BUNDY Primary Care Unavailab le ABRAMOVICH, DAMASO Referring Unavailable ELIGIO, DOT BUNDY Primary Care Unavailab le ABRAMOVICH, DAMASO Referring Unavailable ELIGIO, DOT BUNDY Primary Care Unavailab le ABRAMOVICH, DAMASO Attending Unavailable ABRAMOVICH, DAMASO Referring Unavailable ELIGIO, DOT BUNDY Primary Care Unavailab le ELIGIO, DOT BUNDY Primary Care Unavailab le GAUTAMLUCIANA Attending Unavailable ELIGIO, DOT BUNDY Primary Care Unavailab le ABRAMOVICH, DAMASO Referring Unavailable ELIGIO, DOT BUNDY Primary Care Unavailab le ABRAMOVICH, DAMASO Referring Unavailable ELIGIO, DOT BUNDY Primary Care Unavailab le ABRAMOVICH, DAMASO Referring Unavailable ELIGIO, DOT BUNDY Primary Care Unavailab le ABRAMOVICH, DAMASO Referring Unavailable ELIGIO, DOT BUNDY Primary Care Unavailab le ABRAMOVICH, DAMASO Referring Unavailable ELIGIO, DOT BUNDY Primary Care Unavailab le ELIGIO, DOT BUNDY Primary Care Unavailab le ABRAMOVICH, DAMASO Referring Unavailable JACOBSTEPHANIA Referring Unavailable ELIGIO, DOT BUNDY Primary Care Unavailab le ELIGIO, DOT BUNDY Primary Care Unavailab le ABRAMOVICH, DAMASO Referring Unavailable ELIGIO, DOT BUNDY Primary Care Unavailab le ABRAMOVICH, DAMASO Referring Unavailable ELIGIO, DOT BUNDY Primary Care Unavailab le ABRAMOVICH, DAMASO Referring Unavailable ELIGIO, DOT BUNDY Primary Care Unavailab le ELIGIO, DOT BUNDY Primary Care Unavailab le JACOBSTEPHANIA Referring Unavailable JACOBSTEPHANIA Referring Unavailable ELIGIO, DOT BUNDY Primary Care Unavailab le ELIGIO, DOT BUNDY Primary Care Unavailab le GAUTAMLUCIANA Attending Unavailable JACOBSTEPHANIA Referring Unavailable ELIGIO, DOT BUNDY Primary Care Unavailab le ELIGIO, DOT BUNDY Primary Care Unavailab le EILGIO, DOT BUNDY Primary Care Unavailab le GAUTAMLUCIANA Attending Unavailable ELIGIO, DOT BUNDY Primary Care Unavailab le ABRAMOVICH, DAMASO Referring Unavailable GAUTAM DAFIDE Attending Unavailable ABRAMOVICH, DAMASO Referring Unavailable ELIGIO, DOT BUNDY Primary Care Unavailab le ELIGIO, DOT BUNDY Primary Care Unavailab le ABRAMOVICH, DAMASO Referring Unavailable ELIGIO, DOT BUNDY Primary Care Unavailab DAMASO Ryan Referring Unavailable DOT ALLEN Primary Care Unavailab DAMASO Ryan Referring Unavailable DOT ALLEN Primary Care Unavailable YELENA GARCIA Consulting Unavailable YELENA GARCIA Attending Unavailable YELENA GARCIA Admitting Unavailable DOT ALLEN Primary Care Unavailable ABUNDIO BUCHANAN Attending Unavailable Eligio MATT, Dr. Hook Primary Care Provider Dr. Jake Cortés DO Emergency Provider Demetrio MATT, Dr. Burgos Admit Provider [phone] Dr. Aubrey Atkinson DO Attending Provider Dr. Aubrey Atkinson DO Referring Provider Allergies Allergy Classification Reported Allergen(s) Allergy Type Date of Onset Reaction(s) Facility Sulfonamides (antibiotic) (2 sources) Sulfonamides (Antibiotic); Translations: [Sulfa Drugs] Drug Allergy [facility]; [facility] Work Phone: (3 sources) Sulfonamides (Antibiotic) drug allergy 07-19-19 11 [facility] Work Phone: (20 sources) Sulfonamides (Antibiotic); Translations: [Sulfa Drugs] allergy to substance Hives [facility] Work Phone: (20 sources) Iodinated Contrast; Translations: [Iodinated Contrast] allergy to substance Hives [facility] Work Phone: (20 sources) Iodine; Translations: [IODINE] Drug Allergy 01-14-20 19 Rash [facility] Work Phone: (20 sources) Sulfonamides (Antibiotic); Translations: [SULFA (SULFONAMIDE ANTIBIOTICS)] Drug Intolerance 03-23-18 99 Rash, Hives, Unknown, Itching, Swelling [facility] (8 sources) Iodinated Contrast Media; Translations: [Iodinated Contrast Media] Allergy to substance 10-01-19 22 Hives, Swelling [facility] (2 sources) Sulfonamides (Antibiotic) Allergy to substance 10-01-19 22 Rash [facility] (1 source) Sulfonamides (Antibiotic) Drug allergy (disorder) 10-01-19 [facility] (4 sources) Contrast Media Ready-Box MISC; Translations: [Contrast Media Ready-Box MISC] Allergy to drug (finding) [id number] [address] Work Phone: (1 source) CT: IODINATED CONTRAST- ORAL AND IV DYE; Translations: [CT: IODINATED CONTRAST- ORAL AND IV DYE] Propensity to adverse reactions to drug (disorder) 07-27-19 [facility] Medications Current Medications Medication Drug Class(es) Dates Sig (Normalized) Sig (Original) acetaminophen 325 mg oral tablet (20 sources) Start: 08-21-2024 End: 08-31-2024 take 2 tablets by mouth every six hours for pain acetaminophen (Tylenol) 325 mg tablet Indications: Intussusception, ileocecal (Multi) Take 2 tablets (650 mg) by mouth every 6 hours if needed for mild pain (1 - 3) for up to 20 doses. 20 tablet 08/21/2024 08/31/2024 Active Start: 08-13-2024 End: 08-14-2024 take 1 tablet by mouth every six hours as needed 650 mg, oral, Every 6 hours PRN, pain mild (1-3), first line, Starting on 08/14/24 at 1815, Phase II/On Unit, If ordered PRN for pain, nurse is permitted to administer this medication for higher pain scores based on patient preference? Yes Start: 10-20-2017 End: 09-26-2020 take 2 tablets by mouth every eight hours Acetaminophen 500 MG tablet Discontinued 1000 mg PO EVERY 8 HOURS October 20, 2017 12:00am September 26, 2020 1:13pm Start: 10-20-2017 End: 09-26-2020 take 1000 mg by mouth every eight hours Acetaminophen Discontinued 1000 MG PO EVERY 8 HOURS October 20, 2017 12:00am September 26, 2020 1:13pm Tylenol Extra St rength 500 MG Oral Tablet one q6-8hrs prn (500 MG) Inactive calcium carb/vitamin D3/vit K1 (SOFT CHEWS CALCIUM ORAL) (20 sources) take 2 doses by mout h once daily calcium carb/vitamin D3/vit K1 (SOFT CHEWS CALCIUM ORAL) Take 2 Each by mouth once daily. Active take 2 doses by mouth once daily calcium carb/vitamin D3/vit K1 (SOFT CHEWS CALCIUM ORAL) Take 2 Each by mouth once daily. 0 Active calcium carb/vit marti D3/vit K1 (SOFT CHEWS CALCIUM ORAL) Take 2 Units by mouth once daily. 2 chewables daily 0 Active Comment on above: Take 2 Units by mout h once daily. 2 chewables daily Take 2 Each by mouth once daily. calcium carbonate 1250 mg / cholecalciferol 0.01 mg chewable tablet (20 sources) Vitamin D Start: 09-26-2020 Calcium Carbonate-Vitamin D3 500 mg(1,250mg) -400 unit tablet,chewable Active 2 {tbl} PO DAILY September 26, 2020 1:14pm Start: 09-12-2015 End: 09-26-2020 Calcium Carbonate-Vitamin D3 1 EACH tablet,chewable Discontinued 1 NMA PO TWICE A DAY September 12, 2015 12:00am September 26, 2020 1:16pm Start: 09-12-2015 End: 09-26-2020 Calcium Carbonate-Vitamin D3 Discontinued 1 EACH PO TWICE A DAY September 12, 2015 12:00am September 26, 2020 1:16pm Start: 05-15-2014 take 1 tablet by jean th once daily CALCIUM 500/VITAMIN D, [id number] (Oral Tablet) 1 (one) Tablet qd for 30 days Refills: 0 Ordered: 10-Feb-2022 Dot Allen DO, DO, Kathleen Start : 15-May-2014 Active End: 08-12-2024 take 1 tablet by mouth once daily calcium carbonate-vitamin D3 600 mg-5 mcg (200 unit) tablet Take 1 tablet by mouth once daily. 08/12/2024 Discontinued (Entered in Error) carvedilol 12.5 mg oral tablet (20 sources) alpha-Adrenergic Colt, beta-Adrenergic Colt Start: 09-12-2015 End: 06-23-2017 take 1 tablet by mouth twice daily Carvedilol 25 MG tablet Discontinued 25 mg PO TWICE A DAY September 12, 2015 12:00am June 23, 2017 9:49am Start: 03-21-2010 End: 02-04-2024 take 1 tablet by mouth twice daily Carvedilol 12.5 mg tablet Active 0 .ROUTE .COMPLEX 180 February 04, 2024 9:26am TAKE 1 TABLET BY MOUTH TWICE A DAY FOR HEART Start: 03-21-2010 carvedilol (CO REG) 12.5 mg tablet Take one(1) tablet two(2) times daily. 0 03/21/2010 Active Comment on above: Take one(1) tablet t wo(2) times daily. Take 12.5 mg by mout h twice daily with meals. Take with food. cephalexin 500 mg oral capsule (1 source) Cephalosporin Antibacterial Start: 10-28-19 End: 11-07-19 24 take 1 capsule by mouth twice daily cephALEXin (KEFLEX) 500 mg capsule Take 500 mg by mouth two times a day. 0 10/28/2023 11/07/2023 Active chlorhexidine gluconate 1.2 mg/ml mouthwash (20 sources) Start: 02-27-20 End: 06-16-19 Chlorhexidine Gluconate (PERIDEX) 0.12 % solution Use 15 mL as instructed two times a day. Rinse around mouth for 30 seconds then expectorate 473 mL 06/15/2024 Active Start: 02-26-2022 End: 08-12-2024 take 15 mL by mouth twice daily as needed chlorhexidine (Peridex) 0.12 % solution Place 15 mL into mouth between cheek and gum 2 times a day as needed. 02/26/2022 08/12/2024 Discontinued (Entered in Error) Comment on above: Use 15 mL as instruc susan twice daily. Rinse around mouth for 30 seconds then expectorate diphenhydrAMINE hydrochloride 50 mg oral capsule (9 sources) Histamine-1 Receptor Antagonist Start: 025 take 1 capsule by mouth every hour diphenhydrAMINE (BENADRYL) 50 mg capsule Take 1 capsule by mouth as directed for 1 dose. one (1) hour prior to exam. 1 capsule 04/21/2024 Active ELDERBERRY FRUIT (20 sources) take 1 tablet by mouth once daily ELDERBERRY FRUIT ORAL Take 1 tablet by mouth once daily. gummy Active take 1 tablet by mouth once norah y elderberry fruit (ELDERBERRY ORAL) Take 1 tablet by mouth once daily. Active take 1 tablet by mouth once norah y elderberry fruit (ELDERBERRY ORAL) Take 1 tablet by mouth once daily. 0 Active elderberry fruit (ELDERBERRY ORAL) Take by mouth. Daily gummy 0 Active Comment on above: Take by mouth. Daily gummy Take 1 tablet by jean th once daily. Elderberry Fruit And Flower (2 sources) Start: 2 take 1 capsule by mouth once daily Elderberry Fruit And Flower Active 1 CAP PO DAILY September 30, 2021 12:00am Elderberry Fruit And Flower 460-115 mg capsule (1 source) Start: 2 take 1 capsule by mouth once daily Elderberry Fruit And Flower 460-115 mg capsule Active 1 NMA PO DAILY September 30, 2021 12:00am 0.4 ml enoxaparin sodium 100 mg/ml prefilled syringe (3 sources) Low Molecular Weight Heparin Start: inject 40 mg by subcutaneous injection every twenty-four hours 40 mg, subcutaneous, Every 24 hours, First dose (after last modification) on Thu08/16/24 at 0900, Phase II/On Unit, Indications: deep vein thrombosis prevention Start: 08-15-2024 End: 08-16-2024 inject 30 mg by subcutaneous injection every twenty-four hours 30 mg, subcutaneous, Every 24 hours, First dose (after last modification) on Thu08/15/24 at 0900, Phase II/On Unit, Indications: deep vein thrombosis prevention Start: 08-13-2024 End: 08-14-2024 inject 40 mg by subcutaneous injection every twenty-four hours 40 mg, subcutaneous, Every 24 hours, First dose on Thu08/13/24 at 0900, Phase II/On Unit, Indications: deep vein thrombosis prevention enteric contrast (will be provided with radiology test) (5 sources) Start: 07-28-2024 End: 07-28-2024 take 1 dose by mouth once, then take 1 dose by mouth once enteric contrast (will be provided with radiology test) Indications: Malignant neoplasm of upper-outer quadrant of right breast in female, estrogen receptor positive (HCC) , Pleural effusion, malignant (HCC) , Malignant neoplasm metastatic to bone (HCC) , Malignant neoplasm of breast in female, estrogen receptor positive, unspecified laterality, unspecified site of breast (HCC) Take 1 each by mouth one time only for [address] ABD/PEL WO Routine order Administer, As Directed One Time Only, via Oral, Rectal, both Oral and Rectal, Enteric Tube, Stoma or Indwelling Catheter, Enteric Contrast as designated per enteric contrast guidelines 1 each 07/28/2024 07/28/2024 Active Start: 04-21-2024 End: 04-21-2024 take 1 dose by mouth once, then take 1 dose by mouth once enteric contrast (will be provided with radiology test) Take 1 Each by mouth one time only for [address] ABD/PEL WO Routine order Administer, As Directed One Time Only, via Oral, Rectal, both Oral and Rectal, Enteric Tube, Stoma or Indwelling Catheter, Enteric Contrast as designated per enteric contrast guidelines 1 Each 04/21/2024 04/21/2024 Start: 10-07-2023 End: 10-07-2023 take 1 dose by mouth once, then take 1 dose by mouth once enteric contrast (will be provided with radiology test) Take 1 Each by mouth one time only for [address] Chest ABD/PEL WO Routine order Administer, As Directed One Time Only, via Oral, Rectal, both Oral and Rectal, Enteric Tube, Stoma or Indwelling Catheter, Enteric Contrast as designated per enteric contrast guidelines 1 Each 0 10/07/2023 10/07/2023 Active Start: 11-26-2022 End: 11-27-2022 enteric contrast (will be pr ovided with radiology test) For CT CHESTABD/PEL W IVCON Routine order Administer, As Directed One Time Only, via Oral, Rectal, both Oral and Rectal, Enteric Tube, Stoma or Indwelling Catheter, Enteric Contrast as designated per enteric contrast guidelines 1 Each 0 11/26/2022 11/27/2022 Active Start: 12-04-2021 End: 12-04-2021 take 1 dose by mouth once, then take 1 dose by mouth once enteric contrast (will be provided with radiology test) Indications: Malignant neoplasm of upper-outer quadrant of right breast in female, estrogen receptor positive (HCC) , Bone metastases (HCC) , Malignant neoplasm of breast in female, estrogen receptor positive, unspecified laterality, unspecified site of breast (HCC) Take 1 Each by mouth one time only for [address] ABD/PEL WO Routine order Administer, As Directed One Time Only, via Oral, Rectal, both Oral and Rectal, Enteric Tube, Stoma or Indwelling Catheter, Enteric Contrast as designated per enteric contrast guidelines 1 Each 0 12/04/2021 12/04/2021 Active Comment on above: Take 1 Each by mouth one time only for [address] ABD/PEL WO Routine order Administer, As Directed One Time Only, via Oral, Rectal, both Oral and Rectal, Enteric Tube, Stoma or Indwelling Catheter, Enteric Contrast as designated per enteric contrast guidelines For CT CHESTABD/PEL W IVCON Routine order Administer, As Directed One Time Only, via Oral, Rectal, both Oral and Rectal, Enteric Tube, Stoma or Indwelling Catheter, Enteric Contrast as designated per enteric contrast guidelines fluorometholone 1 mg/ml ophthalmic suspension (20 sources) Corticosteroid Start: 022 take 1 drop(s) into the eye(s) three times daily fluorometholone (FML) 0.1 % ophthalmic suspension Administer 1 drop into affected eye(s) 3 times a day. 03/21/2022 Active Start: 02-17-2022 End: 03-21-2022 fluorometholone (FML LIQUID FILM) 0.1 % ophthalmic suspension Use 1 Drop in the right eye three times daily. 10 mL 2 03/21/2022 Active Comment on above: Use 1 Drop in both e yes three times daily. Use 1 Drop in the ri ght eye three times daily. ibuprofen 600 mg oral tablet (3 sources) Nonsteroidal Anti-inflammatory Drug Start: 08-21-2024 End: 08-31-2024 take 1 tablet by mouth every six hours for pain ibuprofen 600 mg tablet Indications: Intussusception, ileocecal (Multi) Take 1 tablet (600 mg) by mouth every 6 hours if needed for moderate pain (4 - 6) for up to 20 doses. 20 tablet 08/21/2024 08/31/2024 Active Start: 08-13-2024 End: 08-14-2024 take 800 mg by mouth every six hours as needed for pain 800 mg, oral, Every 6 hours scheduled, First dose on 08/13/24 at 0615, Phase II/On Unit, To be used in combination with narcotic analgesia. Post Op Day 1., If ordered PRN for pain, nurse is permitted to administer this medication for higher pain scores based on patient preference? Yes iv contrast (will be provided with radiology test) (1 source) Start: 11-26-2022 End: 11-27-2022 iv contrast (will be provided with radiology test) CT Chest ABD/PEL-Inject, intravenously, once for 1 dose.No IV access, insert saline lock prior to the beginning of sedation, infusion, injection of imaging exam. Discontinue saline lock post exam. If Pt. has a central line or IVAD, may access for administration according to line specific nursing protocol. Once exam is complete flush line and de-access according to line specific nursing protocol in the CT contrast administration guidelines link. 1 Each 0 11/26/2022 11/27/2022 Active Comment on above: CT Chest ABD/PEL-Inj ect, intravenously, once for 1 dose.No IV access, insert saline lock prior to the beginning of sedation, infusion, injection of imaging exam. Discontinue saline lock post exam. If Pt. has a central line or IVAD, may access for administration according to line specific nursing protocol. Once exam is complete flush line and de-access according to line specific nursing protocol in the CT contrast administration guidelines link. ketorolac tromethamine 5 mg/ml ophthalmic solution (9 sources) Nonsteroidal Anti-inflammatory Drug, Cyclooxygenase Inhibitor Start: 03-21-2022 End: 04-29-2022 take 1 drop(s) into the eye(s) four times daily keTORolac (ACULAR) 0.5 % ophthalmic solution Use 1 Drop in the right eye four times daily. 5 mL 1 03/25/2022 04/29/2022 Active Comment on above: Use 1 Drop in the le ft eye four times daily. Use 1 Drop in the ri ght eye four times daily. lactobacillus rhamnosus gg [id number] unt chewable tablet (6 sources) Start: 09-26-2020 End: 09-30-2021 take 5 tablets by mouth twice daily as needed Lactobacillus Rhamnosus Gg ([facility] [employer] Probiotics) 5 billion cell tablet,chewable Active 1 {tbl} PO TWICE A DAY as needed September 30, 2021 1:11pm loratadine 10 mg oral tablet (3 sources) Start: 09-26-2020 take 1 tablet by mouth once daily as needed Loratadine (Claritin) 10 mg tablet Active 10 mg PO DAILY as needed for allergy symptoms September 26, 2020 12:00am melatonin 3 mg oral tablet (20 sources) Start: 09-30-2021 take 2 tablets by mouth at bedtime as needed for sleep Melatonin 3 mg tablet Active 6 mg PO BEDTIME as needed for sleep September 30, 2021 12:00am Start: 09-30-2021 take 6 mg by mouth at bedtime Melatonin Active 6 MG PO BEDTIME September 30, 2021 12:00am Start: 11-23-2018 take 1 capsule by mo uth once daily at bedtime Melatonin 3 MG Oral Capsule 1 (one) Capsule qhs for 30 days Quantity: 30 {Capsule} Refills: 3 Ordered: 21-Dec-2018 Dot Allen DO, DO, Kathleen Start : 23-Nov-2018 Active take 3 tablets by mo uth once daily at bedtime as needed melatonin 3 mg tablet 6 mg daily at bedtime. Take 3 tablets by mouth at bedtime as needed. Active End: 06-18-2021 take 1 tablet by mouth every twenty-four hours as needed melatonin 10 mg tab Take 1 tablet by mouth at bedtime as needed for for insomnia. 0 06/18/2021 Discontinued Comment on above: Take 1 tablet by jean th at bedtime as needed for for insomnia. Take two tablets by mouth at bedtime as needed. Take 3 mg by mouth d aily at bedtime. Take 3 tablets by mouth at bedtime as needed. Take 3 tablets by mo uth at bedtime as needed. Multivitamin 1 EACH tablet (1 source) Start: 6 Multivitamin 1 EACH tablet Active 1 NMA PO DAILY September 12, 2015 12:00am multivitamin capsule (2 sources) multivitamin cap suki Take 2 capsules by mouth. Active MULTIVITAMIN ORAL (20 sources) take 1 tablet by mouth once daily MULTIVITAMIN ORAL Take 1 tablet by mouth once daily. Active take 1 tablet by mouth once norah y MULTIVITAMIN ORAL Take 1 tablet by mouth once daily. 0 Active Comment on above: Take 1 tablet by jean th once daily. Multivitamin preparation (2 sources) Start: 09-12-2015 Multivitamin Active 1 EACH PO DAILY September 12, 2015 12:00am multivitamin with minerals (HAIR,SKIN AND NAILS) tablet (20 sources) take 1 tablet by mouth once daily multivitamin with minerals (HAIR,SKIN AND NAILS) tablet Take 1 tablet by mouth once daily. Active take 1 tablet by mouth once norah y multivitamin with minerals (HAIR,SKIN AND NAILS) tablet Take 1 tablet by mouth once daily. 0 Active take 1 tablet by mouth every oth er day multivitamin with minerals (HAIR,SKIN AND NAILS) tablet Take 1 tablet by mouth every other day. 0 Active Comment on above: Take 1 tablet by jean th every other day. Take 1 tablet by jean th once daily. multivitamin with minerals (Hair,Skin and Nails) tablet (2 sources) take 1 tablet by mouth every twenty-four hours as needed multivitamin with minerals (Hair,Skin and Nails) tablet Take 1 tablet by mouth once daily as needed. Active Naloxone (1 source) Opioid Antagonist Start: 5 NON FORMULARY (2 sources) take 2 doses by mouth once daily NON FORMULARY Take 2 each by mouth once daily. Collagen gummies Active omeprazole 20 mg delayed release oral capsule (20 sources) Proton Pump Inhibitor Start: 1 take 1 tablet by mouth once daily PRILOSEC 20 MG CPDR One tablet by mouth daily OMEPRAZOLE [id number] Chayito Lawrence Start: 05-22-2006 take 1 capsule by mo m[facility] once daily Omeprazole 20 MG capsule Active 20 mg PO DAILY September 12, 2015 12:00am take 1 tablet by jean th once daily omeprazole OTC (PriLOSEC OTC) 20 mg EC tablet Take 1 tablet (20 mg) by mouth once daily. Active Comment on above: Take one(1) capsule daily. Take by mouth once d aily. ondansetron ODT (Zofran-ODT) disintegrating tablet 4 mg (1 source) Start: 5 take 1 tablet by mouth every eight hours as needed ondansetron ODT (Zofran-ODT) disintegrating tablet 4 mg oxyCODONE hydrochloride 5 mg oral tablet (5 sources) Opioid Agonist Start: 5 take 1 tablet by mouth every four hours as needed 5 mg, oral, Every 4 hours PRN, pain moderate (4-6), first line, Starting on 08/13/24 at 0559, Phase II/On Unit, If ordered PRN for pain, nurse is permitted to administer this medication for higher pain scores based on patient preference? Yes Start: 08-13-2024 take 1 tablet by jean th every four hours as needed Start: 10-20-2017 End: 08-09-2018 take 5-10 mg by mouth every four hours as needed for pain Oxycodone 5 MG tablet Discontinued 5 - 10 mg PO EVERY 4 HOURS NEEDED as needed for Mod-Severe Pain (-12/30) 90 7 October 20, 2017 12:00am August 09, 2018 1:50pm oxygen (O2) therapy (3 sources) Start: 08-13-2024 inhalation, Co ntinuous PRN - O2/gases, other, Starting on 08/13/24 at 1301, May use O2 vis Nasal Cannula if needed till NG is out, Device: Non-Invasive Ventilation, Rate in liters per minute: 2 LPM, FIO2: 28, Keep O2 Sat Above: 90% Start: 08-13-2024 inhalation, Co ntinuous PRN - O2/gases, other, Starting on 08/13/24 at 0559, Phase II/On Unit, Wean to room air., Device: Nasal Cannula, Rate in liters per minute: 2 Lpm, Keep O2 Sat Above: 92% Start: 08-13-2024 End: 08-13-2024 inhalation, Continuous PRN - O2/gases, other, Starting on 08/13/24 at 0125, Recovery (only), Device: Simple Face Mask, Rate in Liters per minute: 6 LPM, Keep O2 Sat Above: 92% palbociclib 125 mg oral tablet (20 sources) Kinase Inhibitor Start: 01-23-2023 palbociclib ( IBRANCE) 125 mg tablet Indications: Malignant neoplasm of upper-outer quadrant of right breast in female, estrogen receptor positive (HCC) Take 1 tablet (125mg) by mouth once daily for 3 weeks on, followed by 1 week off. Take with or without food 21 tablet 2 01/23/2023 Active Start: 01-20-2022 End: 12-03-2022 palbociclib (IBRANCE) 125 mg tablet Indications: Malignant neoplasm of upper-outer quadrant of right breast in female, estrogen receptor positive (HCC) Take 1 tablet (125mg) by mouth once daily for 3 weeks on, followed by 1 week off. Take with or without food 21 tablet 2 12/03/2022 Active Start: 09-30-2021 Palbociclib (I brance) 125 mg tablet Active 125 mg PO .COMPLEX September 30, 2021 1:12pm 125 mg orally administer on days 1 through 21 of a 28-day treatment cycle; Start: 08-08-2019 End: 01-17-2022 Palbociclib (Ibrance) 125 mg tablet Discontinued 125 mg PO DAILY August 08, 2019 12:00am September 30, 2021 1:15pm administer on days 1 through 21 of a 28-day treatment cycle palbociclib (IBR ANCE ORAL) Take by mouth. 28 days off and off 1 week Active take 1 mg by mouth once daily Ib mukul 125 MG Oral Capsule daily (125 MG) Active Comments: off of it for one week a monthDrKarol White Comment on above: off of it for one we ek a monthDr. White Take 1 tablet (125mg ) by mouth once daily for 3 weeks on, followed by 1 week off. Take with or without food pantoprazole 40 mg delayed release oral tablet (1 source) Proton Pump Inhibitor Start: take 40 mg by mouth once daily before breakfast for gastroesophageal reflux disease 40 mg, oral, Daily before breakfast, First dose on Thu08/13/24 at 0700, Phase II/On Unit, For patients with a pre-op history of GERD Do not crush, chew, or split. phenol 14 mg/ml mucosal spray (1 source) Start: 1 spray, Mouth/Throat, Every 2 hour PRN, sore throat, Starting on Thu08/13/24 at 1944, Phase II/On Unit, Instruct patient to spit out after 15 seconds. phenylephrine hydrochloride 25 mg/ml ophthalmic solution (1 source) alpha-1 Adrenergic Agonist Start: End: PHENYLephrine 2.5 % 1 Drop (AK-DILATE, ERA-SYNEPHRINE) potassium chloride 20 meq powder for oral solution (3 sources) Start: take 1 [oz_av] by mouth twice daily 20 mEq, oral, 2 times daily, First dose on Thu08/16/24 at 0900, Dissolve each packet in 4 ounces of water = 5 mEq per 1 oz fluid. Start: 08-15-2024 End: 08-15-2024 take 20 mEq intravenously every two hours 20 mEq, intravenous, at 50 mL/hr, Administer over 2 Hours, Every 2 hours, First dose on 08/15/24 at 0630, For 2 doses, Total dose is 40 mEq via peripheral line. Start: 08-13-2024 End: 08-13-2024 take 20 mEq intravenously every two hours 20 mEq, intravenous, at 50 mL/hr, Administer over 2 Hours, Every 2 hours, First dose on Thu08/13/24 at 1000, For 2 doses, Total dose is 40 mEq via peripheral line. prednisoLONE acetate 10 mg/ml ophthalmic suspension (9 sources) Corticosteroid Start: 03-21-2022 End: 04-29-2022 prednisoLONE acetate (PRED FORTE, ECONOPRED PLUS) 1 % ophthalmic suspension Use 1 Drop in the right eye four times daily. 5 mL 1 03/25/2022 04/29/2022 Active Comment on above: Use 1 Drop in the le ft eye four times daily. Use 1 Drop in the ri ght eye four times daily. Propylene glycol (20 sources) take 1 drop(s) into the eye(s) three times daily propylene glycol (SYSTANE BALANCE OPHTHALMIC) Use 1 Drop in eyes three times a day. Active take 1 drop(s) into the eye(s) three times daily propylene glycol (SYSTANE BALANCE OPHTHALMIC) Use 1 Drop in eyes three times a day. 0 Active take 1 drop(s) into the eye(s) three times daily propylene glycol (SYSTANE BALANCE OPHTHALMIC) Use 1 Drop in eyes three times daily. 0 Active Comment on above: Use 1 Drop in eyes t hree times daily. Use 1 Drop in eyes t hree times a day. sennosides, correction 8.6 mg oral tablet (20 sources) Start: 020 take 2 tablets by mouth once daily as needed senna (SENOKOT) 8.6 mg tab Take 2 tablets by mouth once daily as needed. 30 tablet 06/07/2019 Active Comment on above: Take 2 tablets by [facility] once daily as needed. triamcinolone acetonide 1 mg/ml topical cream (20 sources) Corticosteroid Start: 023 triamcinolone acetonide (KENALOG) 0.1 % cream Apply to affected area twice daily. APPLY TO AFFECTED AREA 07/10/2022 Active Comment on above: Apply to affected ar ea twice daily. APPLY TO AFFECTED AREA tropicamide 10 mg/ml ophthalmic solution (1 source) Anticholinergic Start: End: tropicamide 1 % 1 Drop (MYDRIACYL) 24 hr venlafaxine 37.5 mg extended release oral capsule (20 sources) Serotonin and Norepinephrine Reuptake Inhibitor Start: take 1 capsule by mouth once daily Venlafaxine 37.5 MG capsule Active 37.5 mg PO DAILY September 12, 2015 12:00am Start: 07-18-2010 take 1 tablet by jean th once daily EFFEXOR XR 37.5 MG [id number] One tablet by mouth daily VENLAFAXINE HCL [id number] Chayito Lawrence Comment on above: Take 37.5 mg by mout h once daily. vitamin b12 5 mg disintegrating oral tablet (20 sources) Vitamin B12 Start: take 1 tablet by mouth once daily Cyanocobalamin (Vitamin B-12) 5,000 mcg tablet,disintegrating Active 5000 ug PO DAILY September 30, 2021 12:00am End: 08-12-2024 cyanocobalamin, vitamin B-12 , 5,000 mcg cap Take by mouth once daily. Active Comment on above: Take by mouth once d aily. Completed/Discontinued Medications Medication Drug Class(es) Dates Sig (Normalized) Sig (Original) acetaminophen 325 mg / oxyCODONE hydrochloride 5 mg oral tablet (3 sources) Opioid Agonist Start: 08-18-2016 End: 07-30-2017 Oxycodone-Acetamino phen 1 TABLET tablet Discontinued 1 - 2 {tbl} PO EVERY 4 HOURS NEEDED as needed for Pain August 18, 2016 12:00am July 30, 2017 2:40pm Start: 08-18-2016 End: 07-30-2017 take 1 tablet by mouth every four hours as needed Oxycodone-Acetaminophen Discontinued 1 - 2 TABLET PO EVERY 4 HOURS NEEDED August 18, 2016 12:00am July 30, 2017 2:40pm albuterol 0.83 mg/ml inhalation solution (20 sources) beta2-Adrenergic Agonist Start: 07-01-2018 End: 11-23-2018 Albuterol Sulfate (2.5 MG/3ML) 0.083% Inhalation Nebulization Solution 1 (one) Milliliter Milliliter x1 for 0 days Quantity: 1 {Nebule} Refills: 0 Ordered: 23-Nov-2018 Julita Longoria RN Start : 01-Jul-2018 End : 23-Nov-2018 Inactive ALPRAZolam 0.5 mg oral tablet (20 sources) Benzodiazepine Start: 12-13-2019 End: 12-18-2021 take 1 tablet by mouth three times daily as needed ALPRAZolam 0.5 MG Oral Tablet 1 (one) Tablet tid prn for 0 days Quantity: 60 {Tablet} Refills: 0 Ordered: 18-Dec-2021 Art ALVAREZDenisa Start : 13-Dec-2019 End : 18-Dec-2021 Inactive Comments: [facility] Anxietysixty Comment on above: [facility] Anxietysix ty aluminum hydroxide 40 mg/ml / magnesium hydroxide 40 mg/ml / simethicone 4 mg/ml oral suspension (1 source) Start: 08-12-2024 End: 08-12-2024 take 30 mL by mouth once 30 mL, oral, Once, On Thu08/12/24 at 1205, For 1 dose aspirin 325 mg oral tablet (3 sources) Platelet Aggregation Inhibitor, Nonsteroidal Anti-inflammatory Drug Start: 10-20-2017 End: 08-09-2018 take 1 tablet by mouth twice daily at mealtime Aspirin 325 MG tablet Discontinued 325 mg PO TWICE DAILY WITH MEALS 60 October 20, 2017 12:00am August 09, 2018 1:49pm benzonatate 100 mg oral capsule (20 sources) Non-narcotic Antitussive Start: 11-23-2018 End: 12-21-2018 take 1 capsule by mouth three times daily as needed for cough Tessalon Perles 100 MG Oral Capsule 1 (one) Capsule tid prn cough for 0 days Quantity: 60 {Capsule} Refills: 0 Ordered: 21-Dec-2018 Eloy Lee LPN Start : 23-Nov-2018 End : 21-Dec-2018 Inactive Comments: or generic Comment on above: or generic bifidobacterium animalis [id number] unt / lactobacillus acidophilus [id number] unt oral capsule (20 sources) Start: 11-23-2018 take 1 capsule by mouth once daily Probiotic Oral Capsule 1 (one) Capsule daily as directed for 0 days Quantity: 30 {Capsule} Refills: 0 Ordered: 21-Dec-2018 Eloy Lee LPN Start : 23-Nov-2018 Active Start: 11-23-2018 take 1 capsule by mo [facility] once daily Probiotic Oral Capsule 1 (one) Capsule daily as directed for 0 days Quantity: 30 {Capsule} Refills: 0 Ordered: 21-Dec-2018 Aquiles HERNADEZ Eloy Start : 23-Nov-2018 Active biotin 1 mg oral tablet (1 source) End: 08-12-2024 take 2 tablets by mouth once daily biotin 1 mg tablet Take 2 tablets (2 mg) by mouth once daily. 08/12/2024 Discontinued (Entered in Error) calcium carbonate / vitamin D (3 sources) Start: 11-24-2012 take 1 tablet by jean th once daily CALCIUM + D 600-200 MG-UNIT TABS One tablet by mouth daily CALCIUM CARBONATE-VITAMIN D Antoinette Cohn PA-C calcium chloride 0.0014 meq/ml / potassium chloride 0.004 meq/ml / sodium chloride 0.103 meq/ml / sodium lactate 0.028 meq/ml injectable solution (3 sources) Start: 08-12-2024 End: 08-20-2024 take 75 mL intravenously every hour 75 mL/hr, intravenous, Continuous, Starting on 08/13/24 at 0200, For 192 hours, Recovery & On Unit CALCIUM-VITAMIN D-VITAMIN K CHEW (6 sources) Start: 07-18-2010 VIACTIV CHEW S oft calcium Chews - One tablet by mouth daily CALCIUM-VITAMIN D-VITAMIN K CHEW [id number] Chayito Lawrence Start: 07-18-2010 End: 05-24-2012 VIACTIV CHEW Soft calcium Ch ews - One tablet by mouth daily CALCIUM-VITAMIN D-VITAMIN K CHEW [id number] Dipesh Lang MD ceFAZolin 2000 mg injection (4 sources) Cephalosporin Antibacterial Start: 08-12-2024 End: 08-17-2024 take 2 g intravenously every eight hours 2 g, intravenous, at 100 mL/hr, Administer over 30 Minutes, Every 8 hours, First dose (after last modification) on Thu08/16/24 at 0915, Recovery & On Unit, Duplex bag - activate before hanging., Dosing of this medication varies based on severity of illness. Does this patient have sepsis or concern for sepsis (probable or documented infection plus systemic manifestations of infection)? No, Suspected Indication (Select all that apply): Surgical Prophylaxis, Indications: Surgical Prophylaxis diatrizoate polly-diatrizoat sod (Gastrografin 37% organic bound iodine) solution 60 mL (1 source) Start: 08-17-2024 End: 08-17-2024 60 mL, oral, Once, On Thu08/17/24 at 1215, For 1 dose, May be diluted 1:1 with water, carbonated beverage, milk, or mineral oil for older adults with cachexia., What is the indication of use? Diagnostic Use doxycycline hyclate 100 mg oral tablet (4 sources) Tetracycline-class Drug Start: 04-15-2021 End: 06-18-2021 take 1 tablet by mouth twice daily doxycycline (VIBRA-TABS) 100 mg tablet Take 100 mg by mouth twice daily. 0 04/15/2021 06/18/2021 Discontinued Comment on above: Take 100 mg by mouth twice daily. Elderberry preparation (4 sources) Elderberry CAPS TAKE 1 CAPSULE Daily Quantity: 0 Refills: 0 Ordered: 09-Oct-2022 DO Active 2 ml famotidine 10 mg/ml injection (1 source) Histamine-2 Receptor Antagonist Start: 08-12-2024 End: 08-12-2024 20 mg, intravenous, Administer over 2 Minutes, Once, On Thu08/12/24 at 2315, For 1 dose, Preprocedure Start: 08-12-2024 End: 08-12-2024 20 mg, intravenous, Administ er over 2 Minutes, Once, On Thu08/12/24 at 2315, For 1 dose, Preprocedure 5 ml fulvestrant 50 mg/ml prefilled syringe (20 sources) Estrogen Receptor Antagonist Start: 06-15-2024 End: 06-15-2024 inject 1 dose by intramuscular injection once 500 mg, INTRAMUSCULAR, ONCE, 1 dose, On Thu06/15/24 at 1400, Hazardous Chemotherapy Drug: Use appropriate PPE. Refrigerate. Start: 05-18-2024 End: 05-18-2024 inject 1 dose by intramuscular injection once 500 mg, INTRAMUSCULAR, ONCE, 1 dose, On Thu05/18/24 at 1430, Hazardous Chemotherapy Drug: Use appropriate PPE. Refrigerate. Start: 04-20-2024 End: 04-20-2024 inject 1 dose by intramuscular injection once 500 mg, INTRAMUSCULAR, ONCE, 1 dose, On Thu04/20/24 at 1430, Hazardous Chemotherapy Drug: Use appropriate PPE. Refrigerate. Start: 03-22-2024 End: 03-22-2024 inject 1 dose by intramuscular injection once 500 mg, INTRAMUSCULAR, ONCE, 1 dose, On Tu03/22/24 at 1330, Hazardous Chemotherapy Drug: Use appropriate PPE. Refrigerate. Start: 02-24-2024 End: 02-24-2024 inject 1 dose by intramuscular injection once 500 mg, INTRAMUSCULAR, ONCE, 1 dose, On Thu02/24/24 at 1430, Hazardous Chemotherapy Drug: Use appropriate PPE. Refrigerate. Start: 01-27-2024 End: 01-27-2024 inject 1 dose by intramuscular injection once 500 mg, INTRAMUSCULAR, ONCE, 1 dose, On Thu01/27/24 at 1400, Hazardous Chemotherapy Drug: Use appropriate PPE. Refrigerate. Start: 12-30-2023 End: 12-30-2023 inject 1 dose by intramuscular injection once 500 mg, INTRAMUSCULAR, ONCE, 1 dose, On 12/30/23 at 1430, Hazardous Chemotherapy Drug: Use appropriate PPE. Refrigerate. Start: 12-02-2023 End: 12-02-2023 inject 1 dose by intramuscular injection once 500 mg, INTRAMUSCULAR, ONCE, 1 dose, On Thu12/02/23 at 1430, Hazardous Chemotherapy Drug: Use appropriate PPE. Refrigerate. Start: 11-04-2023 End: 11-04-2023 fulvestrant 500 mg injection (FASLODEX) Start: 10-07-2023 End: 10-07-2023 fulvestrant 500 mg injection (FASLODEX) Start: 09-09-2023 End: 09-09-2023 fulvestrant 500 mg injection (FASLODEX) Start: 08-12-2023 End: 08-12-2023 fulvestrant 500 mg injection (FASLODEX) Start: 08-08-2019 End: 07-15-2023 fulvestrant 500 mg injection (FASLODEX) fulvestrant (FAS LODEX IM) Inject into the muscle. Every 28 days Active Faslodex SOLN IM every 28 days. Quantity: 0 Refills: 0 Ordered: 09-Oct-2022 DO Active Comment on above: Dr. White 2 ml furosemide 10 mg/ml injection (8 sources) Loop Diuretic Start: 08-19-2024 End: 08-20-2024 take 20 mg intravenously once 20 mg, intravenous, Once, On Thu08/20/24 at 0815, For 1 dose, For doses less than or = 160 mg, give IV push at maximum rate of 40 mg/min For doses greater than 160 mg, dilute in 50 mL and administer at 4 mg/min Start: 09-25-2022 take 1 tablet by jean th once daily in the morning as needed, then take 1 tablet by mouth once daily in the evening as needed Furosemide 20 MG Oral Tablet TAKE 1 TABLET BY MOUTH EVERY MORNING X3 DAYS THEN TAKE 1 TABLET EVERY EVENING NEEDED FOR EDEMMA Quantity: 30 Refills: 0 Ordered: 25-Sep-2022 DO Start : 25-Sep-2022 Active 50 ml glucose 500 mg/ml prefilled syringe (1 source) Start: 08-16-2024 End: 08-16-2024 12.5 g, intravenous, Once, O n 08/16/24 at 0700, For 1 dose Start: 08-16-2024 End: 08-16-2024 12.5 g, intravenous, Once, O n 08/16/24 at 0700, For 1 dose Hair/Skin/Nails Oral Tablet (11 sources) take 1 tablet by mouth once Hair/Skin/Nails Oral Tablet 1 (One) tab Once at night. Active 1 ml heparin sodium, porcine 5000 unt/ml injection (1 source) Unfractionated Heparin, Anti-coagulant Start: 2024 End: 2024 inject 5000 [IU] by subcutaneous injection once 5,000 Units, subcutaneous, Once, On Thu08/12/24 at 2300, For 1 dose, Preprocedure, Prior to surgery Start: 08-12-2024 End: 08-12-2024 inject 5000 [IU] by subcutaneous injection once 5,000 Units, subcutaneous, Once, On Thu08/12/24 at 2300, For 1 dose, Preprocedure, Prior to surgery 0.5 ml HYDROmorphone hydrochloride 1 mg/ml prefilled syringe (1 source) Opioid Agonist Start: 08-13-2024 End: 08-13-2024 0.5 mg, intravenous, Every 5 min PRN, pain moderate (4-6), first line, Starting on Thu08/13/24 at 0125, Recovery (only), Max total of 4 mg regardless of dose. iohexol (OMNIPaque) 12 mg iodine/mL oral contrast 500 mL (1 source) Start: 08-12-2024 End: 08-12-2024 500 mL, oral, Once, On Thu08/12/24 at 1455, For 1 dose, Administer over 20-60 minutes as directed by imaging protocol and/or imaging provider. CONTRAST - for procedural imaging use only. L.acid/L.casei/B.bif/B.frank /FOS (PROBIOTIC BLEND ORAL) (3 sources) End: 09-10-2021 L.acid/L.casei/B.bif/B.l on/FOS (PROBIOTIC BLEND ORAL) Take by mouth once daily. 0 09/10/2021 Discontinued L.acid/L.casei/B .bif/B.frank/FOS (PROBIOTIC BLEND ORAL) Take by mouth once daily. 0 Active Comment on above: Take by mouth once d aily. levoFLOXacin 750 mg oral tablet (20 sources) Quinolone Antimicrobial Start: 07-02-19 End: 11-24-19 19 take 1 tablet by mouth once daily levoFLOXacin 750 MG Oral Tablet 1 (one) Tablet Tablet qd for 0 days Quantity: 5 {Tablet} Refills: 0 Ordered: 23-Nov-2018 Julita Longoria RN Start : 01-Jul-2018 End : 23-Nov-2018 Inactive 10 ml lidocaine hydrochloride 10 mg/ml injection (2 sources) Antiarrhythmic, Amide Local Anesthetic Start: 08-17-19 25 End: 08-17-19 25 50 mg (5 mL), infiltration, Once, On Thu08/16/24 at 0715, For 1 dose Start: 08-12-2024 End: 08-12-2024 take 15 mL by mouth once 15 mL, oral, Once, On Thu at 1205, For 1 dose 50 ml magnesium sulfate 40 mg/ml injection (1 source) Start: 08-13-2024 End: 08-13-2024 2 g, intravenous, at 25 mL/hr, Administer over 2 Hours, Once, On Thu08/13/24 at 1000, For 1 dose 100 ml metroNIDAZOLE 5 mg/ml injection (2 sources) Nitroimidazole Antimicrobial Start: 08-13-2024 End: 08-17-2024 take 500 mg intravenously every eight hours 500 mg, intravenous, Administer over 60 Minutes, Every 8 hours, First dose on Thu08/13/24 at 0700, Recovery & On Unit, Do NOT give with alcohol or drug products with significant alcohol content., Suspected Indication (Select all that apply): Surgical Prophylaxis, Indications: Surgical Prophylaxis Start: 08-12-2024 End: 08-12-2024 500 mg, intravenous, Adminis ter over 60 Minutes, Once, On Thu08/12/24 at 2300, For 1 dose, Preprocedure, Administer within 60 minutes of incision., Dosing of this medication varies based on severity of illness. Does this patient have sepsis or concern for sepsis (probable or documented infection plus systemic manifestations of infection)? No, Suspected Indication (Select all that apply): Surgical Prophylaxis, Indications: Surgical Prophylaxis 1 ml morphine sulfate 4 mg/ml prefilled syringe (2 sources) Opioid Agonist Start: 08-12-2024 End: 08-12-2024 4 mg, intravenous, Once, On Thu08/12/24 at 1825, For 1 dose Start: 08-12-2024 End: 08-12-2024 2 mg, intravenous, Once, On Thu08/12/24 at 1425, For 1 dose Multi Adult Gummies Oral Tablet Chewable (4 sources) take 1 tablet by mouth once daily Multi Adult Gummies Oral Tablet Chewable CHEW AND SWALLOW 1 TABLET DAILY. Quantity: 0 Refills: 0 Ordered: 09-Oct-2022 DO Active MULTIPLE VITAMIN (3 sources) Start: 05-25-19 13 take 1 tablet by mouth once daily MULTIVITAMINS TABS One tablet by mouth daily MULTIPLE VITAMIN [id number] Dipesh Lang MD MULTIVITAMINS (Oral Capsule) (20 sources) Start: 05-15-19 15 take 1 capsule by mouth once daily MULTIVITAMINS (Oral Capsule) 1 (one) Capsule qd for 30 days Refills: 0 Ordered: 15-May-2014 Dot Allen DO, DO, Kathleen Start : 15-May-2014 Active naproxen sodium 220 mg oral capsule (20 sources) Nonsteroidal Anti-inflammatory Drug Start: 07-31-19 18 End: 10-21-19 18 take 2 capsules by mouth once daily as needed for pain Naproxen Sodium (Aleve) 220 mg capsule Discontinued 440 mg PO daily as needed for Pain July 30, 2017 12:00am October 20, 2017 8:07am Start: 09-12-2015 End: 10-03-2015 Naproxen Sodium (Aleve) 220 MG tablet Discontinued 220 mg PO NEEDED as needed for Pain September 12, 2015 12:00am October 03, 2015 2:55pm Start: 12-11-2014 End: 07-20-2016 ALEVE 220 MG TABS as needed NAPROXEN SODIUM [id number] Dipesh Lang MD naproxen sodium (ANAPROX) 220 mg tablet Take 440 mg by mouth as needed. Active Comment on above: Take 440 mg by mouth as needed. 2 ml ondansetron 2 mg/ml injection (2 sources) Serotonin-3 Receptor Antagonist Start: 08-12-2024 End: 08-12-2024 4 mg, intravenous, Once, On Thu08/12/24 at 1425, For 1 dose, When administering via IV Push, administer over 3-5 minutes. potassium phosphates 15 mmol in dextrose 5% 250 mL IV (1 source) Start: 08-13-2024 End: 08-13-2024 15 mmol, intravenous, at 63.8 mL/hr, Administer over 4 Hours, Once, On [facility] 08/13/24 at 1000, For 1 dose, Each 3 mmol contains 4.4 mEq potassium. potassium phosphates 21 mmol in dextrose 5% 250 mL IV (2 sources) Start: 08-20-2024 End: 08-20-2024 21 mmol, intravenous, at 42.8 mL/hr, Administer over 6 Hours, Once, On [facility] 08/20/24 at 0645, For 1 dose, Each 3 mmol contains 4.4 mEq potassium. Start: 08-18-2024 End: 08-18-2024 21 mmol, intravenous, at 42. 8 mL/hr, Administer over 6 Hours, Once, On [facility] 08/18/24 at 0800, For 1 dose, Each 3 mmol contains 4.4 mEq potassium. Probiotic Oral Capsule (6 sources) Start: 11-23-2018 take 1 capsule by mouth once daily Probiotic Oral Capsule 1 (one) Capsule daily as directed for 0 days Quantity: 30 {Capsule} Refills: 0 Ordered: 21-Dec-2018 Jesus HERNADEZ Eloy Start : 23-Nov-2018 Active prochlorperazine 5 mg/ml injectable solution (1 source) Phenothiazine Start: 08-12-2024 End: 08-12-2024 5 mg, intravenous, Once, On Thu08/12/24 at 1825, For 1 dose proparacaine hydrochloride 5 mg/ml ophthalmic solution (2 sources) Local Anesthetic Start: 03-21-2022 End: 03-22-2022 proparacaine 0.5 % 1 Drop (ALCAINE) Start: 01-24-2022 End: 01-24-2022 proparacaine 0.5 % 1 Drop (A LCAINE) 1000 ml sodium chloride 9 mg/ml injection (5 sources) Start: 08-12-2024 End: 08-14-2024 250 mL, intravenous, at 250 mL/hr, Administer over 1 Hours, Once, On Thu08/14/24 at 0715, For 1 dose tamoxifen 20 mg oral tablet (6 sources) Estrogen Agonist/Antago nist Start: 07-18-2010 End: 11-24-2012 take 1 tablet by mouth once daily TAMOXIFEN CITRATE 20 MG TABS One tablet by mouth daily TAMOXIFEN CITRATE [id number] Chayito Lawrence traMADol hydrochloride 50 mg oral tablet (6 sources) Opioid Agonist Start: 12-11-2014 End: 06-19-2015 take 1 tablet by mouth twice daily TRAMADOL HCL 50 MG TABS One tablet by mouth twice daily TRAMADOL HCL [id number] Dipesh Lang MD CHOLECALCIFEROL TABS (6 sources) Start: 11-24-2012 take 1 tablet by mouth once daily VITAMIN D TABS One tablet by mouth daily CHOLECALCIFEROL TABS [id number] Antoinette Cohn PA-C Start: 11-24-2012 End: 07-13-2013 take 1 tablet by mouth once daily VITAMIN D TABS One tablet by mouth daily CHOLECALCIFEROL TABS [id number] Dipesh Lang MD 100 ml zoledronic acid 0.04 mg/ml injection (20 sources) Bisphosphonate Start: 05-18-2024 End: 05-18-2024 4 mg, INTRAVENOUS, Administer over 15 Minutes, ONCE, 1 dose, On Thu05/18/24 at 1500, Hazardous Potential Reproductive Risk Drug: Use appropriate PPE. Start: 02-24-2024 End: 02-24-2024 4 mg, INTRAVENOUS, Administe r over 15 Minutes, ONCE, 1 dose, On Thu02/24/24 at 1500, Hazardous Potential Reproductive Risk Drug: Use appropriate PPE. Start: 12-02-2023 End: 12-02-2023 4 mg, INTRAVENOUS, Administe r over 15 Minutes, ONCE, 1 dose, On Thu12/02/23 at 1530, Hazardous Potential Reproductive Risk Drug: Use appropriate PPE. Start: 09-09-2023 End: 09-09-2023 zoledronic [id number]-[id number] Cl 4 mg iv piggyback 100 mL (ZOMETA) Start: 08-08-2019 End: 09-30-2021 zoledronic acid Discontinued 4 mg IV every 12 weeks August 08, 2019 12:00am September 30, 2021 1:14pm Start: 08-08-2019 End: 09-30-2021 zoledronic acid Discontinued 4 MG IV every 12 weeks August 08, 2019 12:00am September 30, 2021 1:14pm zoledronic acid (ZOMETA IV) Infuse into a venous catheter. Every 3 months Active Zometa 4 MG/5ML Intravenous Concentrate q 3 months (4 MG/5ML) Active Comments: dr white Comment on above: dr white Problems Active Problems Problem Classification Problem Date Documented Date Episodic/Chronic Abdominal pain (20 sources) Abdominal pain; Translations: [Right upper quadrant pain] Onset: 08-12-2024 Resolved: 02-10-2022 11-23-2018 Episodic Comment on above: on prilosec, try pro biotic now rt upper quad pa in Adjustment disorders (20 sources) Grief finding; Translations: [Grief] 12-13-2019 Chronic Anxiety disorders (20 sources) Anxiety; Translations: [Anxiety] Onset: 05-30-2019 07-01-2018 Chronic Biliary tract disease (20 sources) Polyp of gallbladder; Translations: [Gallbladder polyp] 11-23-2018 Episodic Comment on above: stable Cancer of breast (20 sources) Malignant tumor of breast ; Translations: [Primary malignant neoplasm of breast] Onset: 03-09-2007 07-01-2018 Chronic Comment on above: estrpgem [id number] mastectomy 2006-- partial maste ctomy Cancer of breast (20 sources) History of malignant neoplasm of breast; Translations: [Personal history of malignant neoplasm of breast] Onset: 07-04-2011 07-04-2011 Episodic Cardiac dysrhythmias (20 sources) Atrial paroxysmal tachycardia; Translations: [Sinus bradycardia] Onset: 07-18-2010 07-18-2010 Chronic Cardiac dysrhythmias (20 sources) Palpitations; Translations: [Sinus bradycardia] Onset: 07-18-2010 07-18-2010 Episodic Cataract (20 sources) Senile combined form cataract of right eye; Translations: [Combined forms of age-related cataract, right eye] Onset: 01-24-2022 Resolved: 03-21-2022 Chronic Coronary atherosclerosis and other heart disease (4 sources) Disorder of cardiovascular system; Translations: [Cardiovascular disease, unspecified] Chronic Coronary atherosclerosis and other heart disease (20 sources) Coronary atherosclerosis and other heart disease Deficiency and other anemia (1 source) Anemia in neoplastic disease; Translations: [Anemia in neoplastic disease] Chronic Deficiency and other anemia (20 sources) Anemia; Translations: [Anemia, unspecified] Onset: 10-31-2020 10-31-2020 Episodic Disorders of lipid metabolism (20 sources) Hyperlipidemia; Translations: [Hyperlipidemia, mild] Onset: 03-25-2011 03-25-2011 Chronic Esophageal disorders (20 sources) Gastroesophageal reflux disease; Translations: [Chronic GERD] Onset: 05-30-2019 07-01-2018 Chronic Esophageal disorders (20 sources) Esophageal disorders Essential hypertension (20 sources) Hypertensive disorder; Translations: [Benign essential hypertension] Onset: 07-18-2010 07-18-2010 Chronic Gastritis and duodenitis (2 sources) Gastritis, unspecified, without bleeding; Translations: [Gastritis, unspecified, without bleeding] Onset: 07-26-2024 Episodic Headache; including migraine (20 sources) Muscular headache ; Translations: [Muscle tension headache] 07-01-2018 Chronic Comment on above: gave rx fo rmassages Immunity disorders (3 sources) Patient immunocompromised; Translations: [Immunodeficiency, unspecified] Onset: 08-12-2024 08-12-2024 Chronic Immunizations and screening for infectious disease (20 sources) Encounter for screening for respiratory tuberculosis; Translations: [Tuberculosis screening status] 07-01-2018 Episodic Inflammation; infection of eye (except that caused by tuberculosis or sexually transmitteddisease) (20 sources) Bilateral punctate keratitis of eyes; Translations: [Punctate keratitis, bilateral] Onset: 01-24-2022 Chronic Intestinal obstruction without hernia (11 sources) Intussusception of intestine; Translations: [Intussusception] Onset: 08-12-2024 08-13-2024 Episodic Malaise and fatigue (5 sources) Fatigue; Translations: [Asthenia] Onset: 03-06-2014 03-06-2014 Episodic Mood disorders (20 sources) Depressive disorder; Translations: [Depression] 03-26-2020 Chronic Mood disorders (11 sources) Mood disorders; Translations: [Depression, unspecified] Onset: 03-25-2022 Nonmalignant breast conditions (20 sources) Breast lump; Translations: [Calcification of breast] Resolved: 10-02-2017 10-02-2017 Episodic Comment on above: left-- s/p lumpectom y due for mamm fu h/o breast cancer an d per pt after breast ca dx and treatment has had persisstnet calfication Nonspecific chest pain (20 sources) Chest pain, unspecified; Translations: [Atypical chest pain] Onset: 07-18-2010 Resolved: 02-10-2022 07-18-2010 Episodic Other aftercare (4 sources) Patient encounter status; Translations: [Therapeutic drug monitoring] 09-25-2022 Episodic Other aftercare (1 source) Radiotherapy follow-up; Translations: [Encounter for follow-up examination after completed treatment for conditions other than malignant neoplasm] 03-25-2024 Episodic Other bone disease and musculoskeletal deformities (20 sources) Osteopenia; Translations: [Osteopenia, unspecified location] 07-01-2018 Episodic Other circulatory disease (20 sources) Abnormal chest sounds; Translations: [Abnormal lung sounds] Resolved: 02-10-2022 07-05-2018 Episodic Other circulatory disease (3 sources) Carotid bruit; Translations: [Other specified symptoms and signs involving the circulatory and respiratory systems] 09-30-2021 Episodic Other connective tissue disease (1 source) Presence of unspecified artificial knee joint; Translations: [Presence of unspecified artificial knee joint] Onset: 03-25-2022 Chronic Other connective tissue disease (20 sources) Spasm; Translations: [Muscle spasm] 07-01-2018 Episodic Other connective tissue disease (20 sources) Pain in bilateral legs; Translations: [Pain in both lower extremities] 12-18-2021 Episodic Other connective tissue disease (1 source) Pain in right leg; Translations: [Pain in right leg] Onset: 01-20-2022 Episodic Other connective tissue disease (1 source) Pain in bilateral lower legs; Translations: [Pain in right lower leg] Episodic Other connective tissue disease (1 source) Pain in right lower leg; Translations: [Pain in both lower legs] Onset: 02-27-2022 Episodic Other connective tissue disease (1 source) Pain in left lower leg; Translations: [Pain in both lower legs] Onset: 02-27-2022 Episodic Other connective tissue disease (1 source) Other specified soft tissue disorders; Translations: [Other specified soft tissue disorders] Onset: 10-20-2022 Episodic Other diseases of veins and lymphatics (20 sources) Lymphedema of right upper limb; Translations: [Lymphedema, not elsewhere classified] Onset: 10-31-2020 10-31-2020 Chronic Other diseases of veins and lymphatics (4 sources) Lymphedema; Translations: [Lymphedema] 09-25-2022 Chronic Other eye disorders (1 source) H/O: R cataract extraction; Translations: [Cataract extraction status, right eye] Episodic Other inflammatory condition of skin (20 sources) Itching of skin; Translations: [Itchy skin] 12-13-2019 Episodic Other lower respiratory disease (20 sources) Dyspnea; Translations: [SOB (shortness of breath)] Onset: 07-18-2010 Resolved: 02-10-2022 07-18-2010 Episodic Other lower respiratory disease (20 sources) Cough; Translations: [Cough] Resolved: 02-10-2022 07-01-2018 Episodic Comment on above: persistent, has rt p leural effusion seeing SibiliaOk to use albuterol nebulizer Other lower respiratory disease (20 sources) Hypoxia; Translations: [Hypoxia] Resolved: 02-10-2022 07-01-2018 Episodic Other lower respiratory disease (16 sources) Lung mass; Translations: [Pulmonary nodule, right] 11-23-2018 Episodic Comment on above: to ask Sibilia re re peat CT Other lower respiratory disease (20 sources) Solitary pulmonary nodule; Translations: [Nodule of lung] 12-13-2019 Episodic Comment on above: to ask Sibilia re re peat CT Other lower respiratory disease (4 sources) Dyspnea on exertion; Translations: [Other respiratory abnormalities] Episodic Other lower respiratory disease (2 sources) Other forms of dyspnea; Translations: [Other forms of dyspnea] Onset: 10-22-2022 Episodic Other lower respiratory disease (1 source) Dyspnea, unspecified; Translations: [Dyspnea, unspecified] Onset: 10-22-2022 Episodic Other nutritional; endocrine; and metabolic disorders (9 sources) Body mass index (BMI) 39.0-39.9, adult; Translations: [Body mass index (BMI) 38.0-38.9, adult] Onset: 07-13-2013 07-13-2013 Chronic Other nutritional; endocrine; and metabolic disorders (20 sources) Body mass index 30+ - obesity; Translations: [BMI 35.0-35.9,adult] Resolved: 02-10-2022 07-01-2018 Chronic Other nutritional; endocrine; and metabolic disorders (20 sources) Body mass index 40+ - severely obese; Translations: [BMI 40.0-44.9, adult] 09-04-2017 Chronic Other nutritional; endocrine; and metabolic disorders (20 sources) Severe obesity; Translations: [Morbid (severe) obesity due to excess calories] Onset: 05-30-2019 05-30-2019 Chronic Other nutritional; endocrine; and metabolic disorders (2 sources) Body mass index 25-29 - overweight; Translations: [BMI 29.0-29.9,adult] 12-18-2021 Episodic Other nutritional; endocrine; and metabolic disorders (20 sources) Overweight in adulthood with body mass index of 25 or more but less than 30; Translations: [BMI 29.0-29.9,adult] Resolved: 02-10-2022 12-18-2021 Episodic Other and delivery including normal (20 sources) History of past delivery; Translations: [Vaginal delivery] 07-01-2018 Episodic Comment on above: Other skin disorders (20 sources) Eruption; Translations: [Rash] Resolved: 02-10-2022 12-13-2019 Episodic Pleurisy; pneumothorax; pulmonary collapse (20 sources) Pleural effusion; Translations: [Pleural effusion on right] Onset: 05-31-2019 07-05-2018 Episodic Comment on above: recurrent cough, SOB , and pain, chest xray showing fluid last thoracentesis Dec 20 2 weeks ago. will order thoracentesis. Pneumonia (except that caused by tuberculosis or sexually transmitted disease) (20 sources) Bacterial pneumonia; Translations: [Pneumonia, bacterial] Resolved: 02-10-2022 07-01-2018 Episodic Residual codes; unclassified (20 sources) Obstructive sleep apnea syndrome; Translations: [LAURA on CPAP] Onset: 05-30-2019 07-01-2018 Chronic Comment on above: stable wears cpap stable Residual codes; unclassified (20 sources) Sleep apnea; Translations: [Sleep apnea, unspecified] Onset: 01-24-2022 Chronic Residual codes; unclassified (1 source) Obstructive sleep apnea (adult) (pediatric); Translations: [Obstructive sleep apnea (adult) (pediatric)] Onset: 03-25-2022 Chronic Residual codes; unclassified (20 sources) H/O: hysterectomy; Translations: [Hysterectomy] 07-01-2018 Episodic Residual codes; unclassified (20 sources) Past history of procedure; Translations: [Breast biopsy] 07-01-2018 Episodic Comment on above: Residual codes; unclassified (20 sources) H/O: surgery; Translations: [Breast surgery] 07-01-2018 Episodic Comment on above: 2011 Residual codes; unclassified (20 sources) Postmenopausal state; Translations: [Postmenopausal (Renamed from Postmenopausal status)] 07-01-2018 Episodic Comment on above: gets nuclear bone de nsity scans bc mets to spine Residual codes; unclassified (20 sources) Non-smoker; Translations: [Non-smoker] 06-15-2019 Episodic Residual codes; unclassified (20 sources) Influenza vaccination declined; Translations: [Influenza vaccination declined (Renamed from Refused influenza vaccine)] 12-18-2021 Episodic Residual codes; unclassified (4 sources) Bilateral lower limb edema; Translations: [Bilateral leg edema] 09-25-2022 Episodic Residual codes; unclassified (4 sources) Edema of lower extremity; Translations: [Edema] Episodic Secondary malignancies (20 sources) Secondary malignant neoplasm of bone; Translations: [Secondary malignant neoplasm of bone] Onset: 02-15-2019 Chronic Secondary malignancies (20 sources) Malignant pleural effusion; Translations: [Malignant pleural effusion] Onset: 01-13-2019 Chronic Secondary malignancies (20 sources) Secondary malignant neoplasm of liver; Translations: [Secondary malignant neoplasm of liver and intrahepatic bile duct] Onset: 12-26-2020 12-26-2020 Chronic Secondary malignancies (1 source) Secondary malignant neoplasm of bone; Translations: [Malignant neoplasm metastatic to bone (HCC)] Onset: 06-24-2022 Chronic Unclassified (20 sources) BMI 40.0-44.9, adult Unclassified (20 sources) Non-smoker; Translations: [Non-smoker] 07-01-2018 Unclassified (20 sources) Body mass index (BMI) of 30.0 to 39.9 Unclassified (20 sources) LAURA on CPAP Unclassified (20 sources) PAT (paroxysmal atrial tachycardia) Unclassified (20 sources) PVC (premature ventricular contraction) Unclassified (20 sources) PAC (premature atrial contraction) Unclassified (20 sources) Benign essential HTN Unclassified (20 sources) Osteopenia, unspecified location Unclassified (2 sources) Pleural effusion, malignant (HCC) 07-28-2024 Unclassified (2 sources) Post-op; Translations: [Post-op] Onset: 08-26-2024 Past or Other Problems Problem Classification Problem Date Documented Date Episodic/Chronic Administrative/social admission (20 sources) Counseling procedure with explicit context; Translations: [Patient encounter status] Onset: 06-02-2019 07-01-2018 Episodic Allergic reactions (2 sources) Allergy status to sulfonamides status; Translations: [Radiographic dye allergy status] Onset: 03-25-2022 Episodic Fever of unknown origin (20 sources) Low grade pyrexia; Translations: [Fever, unspecified] Onset: 06-02-2019 06-02-2019 Episodic Headache; including migraine (20 sources) Headache; including migraine Hepatitis (1 source) Hepatitis Influenza (20 sources) Influenza Other aftercare (9 sources) 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; Translations: [Long-term (current) use of other medications] Onset: 09-21-2012 Resolved: 12-06-2014 12-06-2014 Episodic Other circulatory disease (10 sources) Other specified symptoms and signs involving the circulatory and respiratory systems; Translations: [Other symptoms involving cardiovascular system] Onset: 07-20-2016 07-20-2016 Episodic Other connective tissue disease (20 sources) Swelling of upper limb; Translations: [Other specified soft tissue disorders] Onset: 11-02-2020 11-02-2020 Episodic Other eye disorders (20 sources) 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; Translations: [Nodular corneal degeneration, bilateral] Onset: 01-24-2022 Episodic Other eye disorders (20 sources) Tear film insufficiency; Translations: [Dry eye syndrome of bilateral lacrimal glands] Onset: 01-24-2022 Episodic Other eye disorders (20 sources) Conjunctival hemorrhage of right eye; Translations: [Conjunctival hemorrhage, right eye] Onset: 02-24-2022 Episodic Other eye disorders (20 sources) H/O: L cataract extraction; Translations: [Cataract extraction status, left eye] Onset: 03-21-2022 Episodic Other nervous system disorders (20 sources) Acute postoperative pain; Translations: [Other acute postprocedural pain] Onset: 06-01-2019 06-02-2019 Episodic Other non-traumatic joint disorders (20 sources) Pain in lower limb; Translations: [Pain in unspecified knee] Onset: 06-06-2008 06-06-2008 Episodic Other screening for suspected conditions (not mental disorders or infectious disease) (20 sources) Breast neoplasm screening status; Translations: [Breast cancer screening] Onset: 09-17-2005 Resolved: 10-02-2017 07-01-2018 Episodic Comment on above: cologard neg 2016 cologard neg 2016pt refused colonosocpy 2020-- repeat cologard with breast ca being followed by oncology - Dr white Other skin disorders (20 sources) Sebaceous cyst of skin; Translations: [Sebaceous cyst] Onset: 06-17-2010 06-17-2010 Episodic Other upper respiratory infections (4 sources) Upper respiratory infection; Translations: [Acute sinusitis, unspecified] Onset: 07-20-2016 07-20-2016 Episodic Pneumonia (except that caused by tuberculosis or sexually transmitted disease) (20 sources) Pneumonia (except that caused by tuberculosis or sexually transmitted disease) Residual codes; unclassified (1 source) Acquired absence of unspecified breast and nipple; Translations: [Acquired absence of unspecified breast and nipple] Onset: 03-25-2022 Episodic Residual codes; unclassified (2 sources) Estrogen receptor positive status [ER+]; Translations: [Malignant neoplasm of breast in female, estrogen receptor positive, unspecified laterality, unspecified site of breast (HCC)] Onset: 06-01-2019 Episodic Tuberculosis (20 sources) Tuberculosis Unclassified (20 sources) Encounter for screening mammogram for breast cancer (Renamed from Encounter for screening mammogram for malignant neoplasm of breast); Translations: [Patient encounter status] 07-01-2018 Unclassified (20 sources) Patient encounter status; Translations: [Annual Medicare Physical WITH abnormal findings (Renamed from Encounter for general adult medical examination with abnormal findings)] Resolved: 10-02-2017 07-01-2018 Unclassified (20 sources) PHYSICAL EXAM, ROUTINE (V70.0) Unclassified (20 sources) Annual Medicare Phyiscal WITHOUT abnormal findings (Renamed from Encounter for general adult medical examination without abnormal findings) Unclassified (20 sources) Onset: 10-29-2023 Unclassified (20 sources) Breast cancer screening Unclassified (20 sources) Postmenopausal (Renamed from Postmenopausal status) Unclassified (20 sources) Encounter for screening for malignant neoplasm of colon (Renamed from Special screening for malignant neoplasms, colon); Translations: [Screening status] 07-01-2018 Comment on above: cologard neg 2016 Unclassified (20 sources) D&C 07-01-2018 Comment on above: 2008 Unclassified (20 sources) Lt wrist sx 07-01-2018 Comment on above: Unclassified (20 sources) Pregnancies (); Translations: [Pregnancies ()] 07-01-2018 Comment on above: 2. Unclassified (20 sources) Abnormal lung sounds Unclassified (20 sources) Nutritional counseling Unclassified (20 sources) Muscle spasm Unclassified (20 sources) Pleural effusion on right Unclassified (20 sources) Breast calcification, right Unclassified (20 sources) Tuberculosis screening status; Translations: [SCREENING EXAMINATION FOR PULMONARY TUBERCULOSIS] 07-05-2018 Unclassified (20 sources) BMI 38.0-38.9,adult Unclassified (20 sources) Gallbladder polyp Unclassified (20 sources) Abdominal pain, colicky Unclassified (20 sources) Abdominal pain, RUQ Unclassified (20 sources) Pulmonary nodule, right Unclassified (16 sources) BMI 36.0-36.9,adult Unclassified (16 sources) Chest pain, atypical Unclassified (19 sources) BMI 37.0-37.9, adult Unclassified (6 sources) Screening status; Translations: [Screening for osteoporosis (Renamed from Encounter for screening for osteoporosis)] Resolved: 10-02-2017 10-02-2017 Unclassified (20 sources) BMI 35.0-35.9,adult Unclassified (12 sources) Grief Unclassified (9 sources) Rash Unclassified (9 sources) Itchy skin Unclassified (4 sources) Metastatic breast cancer Unclassified (1 source) BMI 39.0-39.9,adult Unclassified (1 source) Encounter for annual general medical examination with abnormal findings in adult Results Test Name Value Interpretation Reference Range Facility Absolute lymphocyte countOrd ered By: Jake Cortés on 09-07-2024 Lymphocytes Auto (Unsp spec) [#/Vol] 0.24 10*3/uL Low 0.83-4.51 [facility] Absolute neutrophil countOrd ered By: Jake Cortés on 09-07-2024 Neutrophils (Bld) [#/Vol] 4.3 10*3/uL 2.0-7.7 [facility] Anion gap in Serum or Plasma Ordered By: Jake Cortés on 09-07-2024 Anion gap [Moles/Vol] 14 mmol/L 5-15 [facility] Automated lymphocyte count a s percentage of total leukocytesOrdered By: Jake Cortés on 09-07-2024 Lymphocytes/100 WBC Auto (Unsp spec) 5.0 % Low 19-41 [facility] BUN/creatinine ratioOrdered By: Jake Cortés on 09-07-2024 Urea nitrogen/Creatinine [Mass ratio] 15.7 mg/mg 10-20 [facility] Basophil percentageOrdered B y: Jake Cortés on 09-07-2024 Basophils/100 WBC (Bld) 0.2 % 0-1 [facility] Bilirubin, totalOrdered By: Jake Cortés on 09-07-2024 Bilirubin [Mass/Vol] 0.77 mg/dL 0.00-1.30 [facility] Blood manual differential co mment interpretation (narrative result)Ordered By: Jake Cortés on 09-07-2024 Manual differential comment Rubin (Bld) [Interp] SCANNED [facility] Blood polychromasia detectio n by light microscopyOrdered By: Jake Cortés on 09-07-2024 Polychromasia LM Ql (Bld) 2+ [facility] Carbon dioxide, total [Moles /volume] in Central venous bloodOrdered By: Jake Cortés on 09-07-2024 CO2 [Moles/Vol] 22.9 mmol/L 21.0-32.0 [facility] Chloride assayOrdered By: Polo Cortés on 09-07-2024 Chloride [Moles/Vol] 102 mmol/L 98-108 [facility] Eosinophil percentageOrdered By: Jake Cortés on 09-07-2024 Eosinophils/100 WBC (Bld) 1.0 % 0-5 [facility] Erythrocyte distribution wid th ratioOrdered By: Jake Cortés on 09-07-2024 Erythrocyte distribution width (RBC) [Ratio] 16.1 % High 11.6-14.6 [facility] Erythrocyte distribution wid th standard deviationOrdered By: Jake Cortés on 09-07-2024 Erythrocyte distribution width (RBC) [Ratio] 65.6 fl High 35.1-43.9 [facility] Glomerular filtration rate ( GFR) estimation/1.73 sq m using serum, plasma, or whole bOrdered By: Jake Cortés on 09-07-2024 GFR/1.73 sq M.predicted among non-blacks MDRD (S/P/Bld) [Vol rate/Area] 75 mL/min/{1.73_m2} >60 [facility] Comment on above: mL/min/1.73m2 CKD-EP I Creatinine Equation (2020) Hematocrit Auto (Bld) [Volum e fraction]Ordered By: Jake Cortés on 09-07-2024 Hematocrit (Bld) [Volume fraction] 16.6 % Low 37-47 [facility] Hemoglobin measurementOrdere d By: Jake Cortés on 09-07-2024 Hemoglobin (Bld) [Mass/Vol] 5.1 g/dL Low 12.0-15.0 [facility] Comment on above: CRITICAL VALUE FRANKS D TO MUKESH STAHL09/07/24 1718 Meliza Foy.RESULTS READ BACK BY SAME. Immature granulocytes/100 WB C Auto (Bld)Ordered By: Jake Cortés on 09-07-2024 Immature granulocytes/100 WBC (Bld) 1.200 % High 0.0-0.9 [facility] Comment on above: IG% - Immature Granu locytes (promyelocytes, myelocytes and metamyelocytes) > 1% indicates that a LEFT SHIFT is Present. Laboratory - Chemistry and C hemistry - challengeOrdered By: Jake Cortés on 09-07-2024 AST [Catalytic activity/Vol] 33 U/L High <32 [facility] Comment on above: Hemolysis present, R esults could be affected. Laboratory - Hematology and Cell countsOrdered By: Jake Cortés on 09-07-2024 Anisocytosis Ql (Bld) 2+ [facility] MCV (mean corpuscular volume ) determinationOrdered By: Jake Cortés on 09-07-2024 MCV (RBC) [Entitic vol] 115.3 fL High 81-99 [facility] Mean corpuscular hemoglobin (MCH) determinationOrdered By: Jake Cortés on 09-07-2024 MCH (RBC) [Entitic mass] 35.4 pg High 27.0-32.0 [facility] Mean corpuscular hemoglobin concentration (MCHC) determinationOrdered By: Jake Cortés on 09-07-2024 MCHC (RBC) [Mass/Vol] 30.7 g/dL Low 32-36 [facility] Mean platelet volume determi nationOrdered By: Jake Cortés on 09-07-2024 Mean platelet volume determination TNP [facility] Comment on above: Test not performed Monocyte percentageOrdered B y: Jake Cortés on 09-07-2024 Monocytes/100 WBC (Bld) 3.9 % 0-10 [facility] Neutrophil percentageOrdered By: Jake Cortés on 09-07-2024 Neutrophils/100 WBC (Bld) 88.7 % High 47-70 [facility] Nucleated red blood cell per centageOrdered By: Jake Cortés on 09-07-2024 Nucleated RBC/100 WBC (Bld) [Ratio] 0 % 0-5 [facility] Platelet countOrdered By: Polo Cortés on 09-07-2024 Platelet count TNP [facility] Comment on above: Test not performedPl ease note: For this sample, a platelet estimate is provided rather than a platelet count due to platelet clumping. Other parameters associated with this sample are not affected by platelet clumping. If a more accurate platelet count is required, a redraw of the patient will be necessary. Platelet estimateOrdered By: Jake Cortés on 09-07-2024 Platelets LM Ql (Bld) ADEQUATE ADEQ [facility] Potassium measurement (mass/ volume)Ordered By: Jake Cortés on 09-07-2024 Potassium (Unsp spec) [Mass/Vol] 3.8 mmol/L 3.3-5.1 [facility] Comment on above: Hemolysis present, R esults could be affected. RBC Auto (Bld) [#/Vol]Ordere d By: Jake Cortés on 09-07-2024 RBC (Bld) [#/Vol] 1.44 10*6/uL Low 4.2-5.4 [facility] Serum creatinine measurement (mass/volume)Ordered By: Jake Cortés on 09-07-2024 Creatinine [Mass/Vol] 0.81 mg/dL 0.70-1.20 [facility] Serum globulin measurementOr dered By: Jake Cortés on 09-07-2024 Globulin (S) [Mass/Vol] 2.9 g/dL 2.2-4.2 [facility] Serum glucose measurement (m ass/volume)Ordered By: Jake Cortés on 09-07-2024 Glucose [Mass/Vol] 85 mg/dL 70-99 [facility] Serum or plasma alanine marti otransferase (ALT) measurementOrdered By: Jake Cortés on 09-07-2024 ALT [Catalytic activity/Vol] 9 U/L <35 [facility] Serum or plasma albumin paddy urement (mass/volume)Ordered By: Jake Cortés on 09-07-2024 Albumin [Mass/Vol] 2.7 g/dL Low 3.4-4.8 [facility] Serum or plasma albumin/glob ulin mass ratioOrdered By: Jake Cortés on 09-07-2024 Albumin/Globulin [Mass ratio] 1.0 {ratio} 0.9-2.4 [facility] Serum or plasma alkaline kizzy sphatase measurementOrdered By: Jake Cortés on 09-07-2024 ALP [Catalytic activity/Vol] 108 U/L High 35-104 [facility] Serum or plasma calcium paddy urement (mass/volume)Ordered By: Jake Cortés on 09-07-2024 Calcium [Mass/Vol] 8.6 mg/dL 7.6-11.0 [facility] Serum or plasma urea nitroge n measurement (mass/volume)Ordered By: Jake Cortés on 09-07-2024 Urea nitrogen [Mass/Vol] 13 mg/dL 4-19 [facility] Sodium levelOrdered By: Brandan Cortés on 09-07-2024 Sodium [Moles/Vol] 138 mmol/L 133-145 [facility] Stool gastrointestinal hemog lobin detection by immunologic methodOrdered By: Jake Cortés on 09-07-2024 Lower GI hemoglobin IA Ql (Stl) [facility] Total proteinOrdered By: Troy Cortés on 09-07-2024 Protein [Mass/Vol] 5.6 g/dL Low 5.9-8.4 [facility] Vitamin B12 ser/plasOrdered By: Jake Cortés on 09-07-2024 Cobalamin (Vitamin B12) [Mass/Vol] 885 pg/mL 180-914 [facility] White blood cell (WBC) count Ordered By: Jake Cortés on 09-07-2024 WBC (Bld) [#/Vol] 4.8 10*3/uL 4.4-11.0 [facility] CNPNon 08-26-2024 CNPN Normal [facility] Basic metabolic 2000 panelon 08-20-2024 Anion gap [Moles/Vol] 10 mmol/L 10 - 2 0 mmol/L [facility] Calcium [Mass/Vol] 7.8 mg/dL Low 8.6 - 10. 3 mg/dL [facility] Chloride [Moles/Vol] 105 mmol/L 98 - 10 7 mmol/L [facility] CO2 [Moles/Vol] 30 mmol/L 21 - 32 mmol/L [facility] Creatinine [Mass/Vol] 0.66 mg/dL 0.50 - 1.05 mg/dL [facility] eGFR - PINF [facility] Comment on above: Calculations of nhan mated GFR are performed using the 2020 CKD-EPI Study Refit equation without the race variable for the IDMS-Traceable creatinine methods. https://jasn.asnjournals.org/content//ASN.901157 0459 Glucose [Mass/Vol] 99 mg/dL 74 - 99 mg/dL [facility] Potassium [Moles/Vol] 3.3 mmol/L Low 3.5 - 5.3 mmol/L [facility] Sodium [Moles/Vol] 142 mmol/L 136 - 145 mmol/L [facility] Urea nitrogen [Mass/Vol] 16 mg/dL 6 - 23 mg/dL [facility] Anion gap [Moles/Vol] 10 mmol/L Normal 10-20 [facility] Comment on above: Performed By: #### 2 524-7 #### FELICITAS PICKETT ([id number]) [facility] ([facility]) [address] [place] [address] Calcium [Mass/Vol] 7.8 mg/dL Low 8.6-10.3 [facility] Comment on above: Performed By: #### 2 524-7 #### FELICITAS PICKETT ([id number]) [facility] ([facility]) [address] [place] [address] Chloride [Moles/Vol] 105 mmol/L Normal 98-107 [facility] Comment on above: Performed By: #### 2 524-7 #### FELICITAS PICKETT ([id number]) [facility] ([facility]) [address] [place] [address] CO2 [Moles/Vol] 30 mmol/L Normal 21-32 [facility] Comment on above: Performed By: #### 2 524-7 #### FELICITAS PICKETT ([id number]) [facility] ([facility]) [address] [place] [address] Creatinine [Mass/Vol] 0.66 mg/dL Normal 0.50-1.05 [facility] Comment on above: Performed By: #### 2 524-7 #### FELICITAS PICKETT ([id number]) [facility] ([facility]) [address] [place] [phone] GFR/1.73 sq M.predicted MDRD (S/P/Bld) [Vol rate/Area] mL/min/{1.73_m2} Normal >60 [facility] Comment on above: Result Comment: Calc ulations of estimated GFR are performed using the 2020 CKD-EPI Study Refit equation without the race variable for the IDMS-Traceable creatinine methods. https://jasn.asnjournals.org/content/early//ASN.887659 9879 Performed By: #### 2 524-7 #### FELICITAS PICKETT ([id number]) [facility] ([facility]) [address] [place] [address] [phone] Glucose [Mass/Vol] 99 mg/dL Normal 74-99 [facility] Comment on above: Performed By: #### 2 524-7 #### FELICITAS PICKETT ([id number]) [facility] ([facility]) [address] [place] [address] [phone] Potassium [Moles/Vol] 3.3 mmol/L Low 3.5-5.3 [facility] Comment on above: Performed By: #### 2 524-7 #### FELICITAS PICKETT ([id number]) [facility] ([facility]) [address] [place] [address] 34487 Sodium [Moles/Vol] 142 mmol/L Normal 136-145 [facility] Comment on above: Performed By: #### 2 524-7 #### FELICITAS PICKETT ([id number]) [facility] ([facility]) [address] [place] [address] [phone] Urea nitrogen [Mass/Vol] 16 mg/dL Normal 6-23 [facility] Comment on above: Performed By: #### 2 524-7 #### FELICITAS PICKETT ([id number]) [facility] ([facility]) [address] [place] [address] CBC panel Auto (Bld)on 08-20 Erythrocyte distribution width (RBC) [Ratio] 18.1 % High 11.5 - 14.5 % [facility] Hematocrit (Bld) [Volume fraction] 22.2 % Low 36.0 - 46.0 % [facility] Hemoglobin (Bld) [Mass/Vol] 7.3 g/dL Low 12.0 - 16.0 g/dL [facility] Interpretation and review of laboratory results Abnormal [facility] MCH (RBC) [Entitic mass] 35.4 pg High 26.0 - 34.0 pg [facility] MCHC (RBC) [Mass/Vol] 32.9 g/dL 32.0 - 36.0 g/dL [facility] MCV (RBC) [Entitic vol] 108 fL High 80 - 100 fL [facility] Nucleated RBC/100 WBC (Bld) [Ratio] 0 % [facility] Platelets (Bld) [#/Vol] 144 10*3/uL Low [facility] RBC (Bld) [#/Vol] 2.06 10*6/uL [facility] WBC (Bld) [#/Vol] 4.4 10*3/uL [facility] Erythrocyte distribution width (RBC) [Ratio] 18.1 % High 11.5-14.5 [facility] Comment on above: Performed By: #### 2 524-7 #### FELICITAS PICKETT ([id number]) [facility] ([facility]) [address] [place] [address] Hematocrit (Bld) [Volume fraction] 22.2 % Low 36.0-46.0 [facility] Comment on above: Performed By: #### 2 524-7 #### FELICITAS PICKETT ([id number]) [facility] ([facility]) [address] [place] [address] Hemoglobin (Bld) [Mass/Vol] 7.3 g/dL Low 12.0-16.0 [facility] Comment on above: Performed By: #### 2 524-7 #### FELICITAS PICKETT ([id number]) [facility] ([facility]) [facility] [place] [address] MCH (RBC) [Entitic mass] 35.4 pg High 26.0-34.0 [facility] Comment on above: Performed By: #### 2 524-7 #### FELICITAS PICKETT ([id number]) [facility] ([facility]) [address] [place] [address] 08888 MCHC (RBC) [Mass/Vol] 32.9 g/dL Normal 32.0-36.0 [facility] Comment on above: Performed By: #### 2 524-7 #### FELICITAS PICKETT ([id number]) [facility] ([facility]) [address] [place] [address] 73703 MCV (RBC) [Entitic vol] 108 fL High 80-100 [facility] Comment on above: Performed By: #### 2 524-7 #### FELICITAS PICKETT ([id number]) [facility] ([facility]) [address] [place] [address] Nucleated RBC/100 WBC (Bld) [Ratio] 0.0 /100 WBCs Normal 0.0-0.0 [facility] Comment on above: Performed By: #### 2 524-7 #### FELICITAS PICKETT ([id number]) [facility] ([facility]) [address] [place] [address] [phone] Platelets (Bld) [#/Vol] 144 x10*3/uL Low 150-450 [facility] Comment on above: Performed By: #### 2 524-7 #### FELICITAS PICKETT ([id number]) [facility] ([facility]) [address] [place] [address] [phone] RBC (Bld) [#/Vol] 2.06 x10*6/uL Low 4.00-5.20 [facility] Comment on above: Performed By: #### 2 524-7 #### FELICITAS PICKETT ([id number]) [facility] ([facility]) [address] [place] [address] WBC (Bld) [#/Vol] 4.4 x10*3/uL Normal 4.4-11.3 [facility] Comment on above: Performed By: #### 2 524-7 #### FELICITAS PICKETT ([id number]) [facility] ([facility]) [address] [place] [address] [phone] Magnesiumon 08-20-2024 Magnesium [Mass/Vol] 1.82 mg/dL 1.60 - 2.40 mg/dL [facility] Magnesium [Mass/Vol] 1.82 mg/dL Normal 1.60-2.40 [facility] Comment on above: Performed By: #### 2 524-7 #### FELICITAS PICKETT ([id number]) [facility] ([facility]) [address] [place] [address] [phone] Magnesium [Mass/Vol]on 08-20 Interpretation and review of laboratory results Normal [facility] No Panel Informationon 08-20 Interpretation and review of laboratory results Abnormal [facility] Phosphateon 08-20-2024 Phosphate [Mass/Vol] 1.5 mg/dL Low 2.5-4.9 [facility] Comment on above: Performed By: #### 2 524-7 #### FELICITAS PICKETT ([id number]) [facility] ([facility]) [address] [place] [address] 39848 Phosphoruson 08-20-2024 Phosphate [Mass/Vol] 1.5 mg/dL Low 2.5 - 4 .9 mg/dL [facility] [place] SMALL BOWEL SERIESon 07-23 [place] SMALL BOWEL SERIES Interpreted By: Gautam Gordillo, STUDY: [place] SMALL BOWEL SERIES; 08/19/2024 11:31 am INDICATION: Signs/Symptoms:ileus. COMPARISON: None. ACCESSION NUMBER(S): [id number] ORDERING CLINICIAN: YELENA GARCIA TECHNIQUE: An initial radiograph of the abdomen and pelvis was obtained. Following the oral administration of approximately 240 mL of contrast Gastrografin, delayed static fluoroscopic images of the abdomen in the posteroanterior projection were obtained at multiple intervals until contrast was observed to reach the colon. 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 An enteric tube is present within the mid stomach. Residual oral contrast is seen within the colon. The small bowel is of normalcaliber with no mucosal thickening appreciated. A normal feathery appearance is observed to the jejunum. The normal smooth appearance of the ileum is observed. There is no evidence for annular constricting lesions, large intraluminal mass lesion, or mucosal ulceration. The terminal ileum and cecum are well visualized and within normal limits. Transit time of contrast to the cecum was identified by 80 minutes. IMPRESSION: 1. No evidence of bowel obstruction.. MACRO: None Signed by: Gautam Puri 08/19/2024 11:57 AM Dictation workstation: [id number] [facility] RF Small bowel Views W contr ast Nic 08-19-2024 1. No evidence of edmar wel obstruction.. MACRO: None Signed by: Gautam Puri 08/19/2024 11:57 AM Dictation workstation: [id number] [facility] WILSON Interpreted By: Gautam Coleman, STUDY: [place] SMALL BOWEL SERIES; 08/19/2024 11:31 am INDICATION: Signs/Symptoms:ileus. COMPARISON: None. ACCESSION NUMBER(S): [id number] ORDERING CLINICIAN: YELENA GARCIA TECHNIQUE: An initial radiograph of the abdomen and pelvis was obtained. Following the oral administration of approximately 240 mL of contrast Gastrografin, delayed static fluoroscopic images of the abdomen in the posteroanterior projection were obtained at multiple intervals until contrast was observed to reach the colon. 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 An enteric tube is present within the mid stomach. Residual oral contrast is seen within the colon. The small bowel is of normalcaliber with no mucosal thickening appreciated. A normal feathery appearance is observed to the jejunum. The normal smooth appearance of the ileum is observed. There is no evidence for annular constricting lesions, large intraluminal mass lesion, or mucosal ulceration. The terminal ileum and cecum are well visualized and within normal limits. Transit time of contrast to the cecum was identified by 80 minutes. [facility] Gautam Gallegos MD - 08/19/2024 Interpreted By: Gautam Puri, STUDY: [place] SMALL BOWEL SERIES; 08/19/2024 11:31 am INDICATION: Signs/Symptoms:ileus. COMPARISON: None. ACCESSION NUMBER(S): [id number] ORDERING CLINICIAN: YELENA GARCIA TECHNIQUE: An initial radiograph of the abdomen and pelvis was obtained. Following the oral administration of approximately 240 mL of contrast Gastrografin, delayed static fluoroscopic images of the abdomen in the posteroanterior projection were obtained at multiple intervals until contrast was observed to reach the colon. 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 An enteric tube is present within the mid stomach. Residual oral contrast is seen within the colon. The small bowel is of normalcaliber with no mucosal thickening appreciated. A normal feathery appearance is observed to the jejunum. The normal smooth appearance of the ileum is observed. There is no evidence for annular constricting lesions, large intraluminal mass lesion, or mucosal ulceration. The terminal ileum and cecum are well visualized and within normal limits. Transit time of contrast to the cecum was identified by 80 minutes. IMPRESSION: 1. No evidence of bowel obstruction.. MACRO: None Signed by: Gautam Puri 08/19/2024 11:57 AM Dictation workstation: [id number] [facility] Work Phone: [facility] Work Phone: Radiology Study observation (narrative) [facility] Work Phone: XR ABDOMEN 2 VIEWS WITH CHES T 1 VIEWon 08-19-2024 XR ABDOMEN 2 VIEWS WITH CHEST 1 VIEW Interpreted By: Romain Hoffmann, STUDY: XR ABDOMEN 2 VIEWS WITH CHEST 1 VIEW; 08/19/2024 8:29 am INDICATION: Signs/Symptoms:sbo. COMPARISON: 08/12/2024 ACCESSION NUMBER(S): [id number] ORDERING CLINICIAN: YELENA GARCIA TECHNIQUE: Abdomen supine and upright views Chest PA view FINDINGS: NG tube tip within the stomach. Contrast identified within the colon. No stigmata of bowel obstruction. Midline surgical marga. Pleural effusion right lung base. Fluid is present within the minor fissure on the right. Low lung volumes. Densities of the right hemithorax likely pleural plaques. No free air. IMPRESSION: 1. NG tube tip within the stomach. Proximal port near the GE junction. Consider advancement by 5 cm. 2. Chronic right pleural effusion albeit smaller than 2019. Densities of the right lung base likely reflecting pleural plaques. 3. Nonobstructive bowel gas pattern with residual contrast in the colon. MACRO: None Signed by: Romain Hoffmann 08/19/2024 10:17 AM Dictation workstation: [id number] [facility] XR Chest View and Abdomen [place] and [place] 08-19-2024 1. NG tube tip withi n the stomach. Proximal port near the GE junction. Consider advancement by 5 cm. 2. Chronic right pleural effusion albeit smaller than 2019. Densities of the right lung base likely reflecting pleural plaques. 3. Nonobstructive bowel gas pattern with residual contrast in the colon. MACRO: None Signed by: Romain Hoffmann 08/19/2024 10:17 AM Dictation workstation: [id number] [facility] Interpreted By: Romain Hoffmann, STUDY: XR ABDOMEN 2 VIEWS WITH CHEST 1 VIEW; 08/19/2024 8:29 am INDICATION: Signs/Symptoms:sbo. COMPARISON: 08/12/2024 ACCESSION NUMBER(S): [id number] ORDERING CLINICIAN: YELENA GARCIA TECHNIQUE: Abdomen supine and upright views Chest PA view FINDINGS: NG tube tip within the stomach. Contrast identified within the colon. No stigmata of bowel obstruction. Midline surgical marga. Pleural effusion right lung base. Fluid is present within the minor fissure on the right. Low lung volumes. Densities of the right hemithorax likely pleural plaques. No free air. [facility] Romain Hoffmann MD - 08/19/2024 Interpreted By: Romain Hoffmann, STUDY: XR ABDOMEN 2 VIEWS WITH CHEST 1 VIEW; 08/19/2024 8:29 am INDICATION: Signs/Symptoms:sbo. COMPARISON: 08/12/2024 ACCESSION NUMBER(S): [id number] ORDERING CLINICIAN: YELENA GARCIA TECHNIQUE: Abdomen supine and upright views Chest PA view FINDINGS: NG tube tip within the stomach. Contrast identified within the colon. No stigmata of bowel obstruction. Midline surgical marga. Pleural effusion right lung base. Fluid is present within the minor fissure on the right. Low lung volumes. Densities of the right hemithorax likely pleural plaques. No free air. IMPRESSION: 1. NG tube tip within the stomach. Proximal port near the GE junction. Consider advancement by 5 cm. 2. Chronic right pleural effusion albeit smaller than 2019. Densities of the right lung base likely reflecting pleural plaques. 3. Nonobstructive bowel gas pattern with residual contrast in the colon. MACRO: None Signed by: Romain Hoffmann 08/19/2024 10:17 AM Dictation workstation: [id number] [facility] Work Phone: Radiology Study observation (narrative) [facility] Work Phone: XR Chest View and Abdomen Bond [place] and UprightOrdered By: Romain Hoffmann on 08-19-2024 [facility] Work Phone: Basic metabolic 2000 panelon 08-18-2024 Anion gap [Moles/Vol] 11 mmol/L 10 - 2 0 mmol/L [facility] Calcium [Mass/Vol] 8 mg/dL Low 8.6 - 10. 3 mg/dL [facility] Chloride [Moles/Vol] 109 mmol/L High 98 - 10 7 mmol/L [facility] CO2 [Moles/Vol] 28 mmol/L 21 - 32 mmol/L [facility] Creatinine [Mass/Vol] 0.76 mg/dL 0.50 - 1.05 mg/dL [facility] GFR/1.73 sq M.predicted among non-blacks MDRD (S/P/Bld) [Vol rate/Area] 81 mL/min/{1.73_m2} - PINF [facility] Comment on above: Calculations of nhan mated GFR are performed using the 2020 CKD-EPI Study Refit equation without the race variable for the IDMS-Traceable creatinine methods. https://jasn.asnjournals.org/content/early/ASN.205131 3869 Glucose [Mass/Vol] 70 mg/dL Low 74 - 99 mg/dL [facility] Potassium [Moles/Vol] 3.8 mmol/L 3.5 - 5.3 mmol/L [facility] Sodium [Moles/Vol] 144 mmol/L 136 - 145 mmol/L [facility] Urea nitrogen [Mass/Vol] 19 mg/dL 6 - 23 mg/dL [facility] Anion gap [Moles/Vol] 11 mmol/L Normal 10-20 [facility] Comment on above: Performed By: #### 2 524-7 #### FELICITAS PICKETT ([id number]) [facility] ([facility]) [address] [place] [address] Calcium [Mass/Vol] 8.0 mg/dL Low 8.6-10.3 [facility] Comment on above: Performed By: #### 2 524-7 #### FELICITAS PICKETT ([id number]) [facility] ([facility]) [address] [place] [address] Chloride [Moles/Vol] 109 mmol/L High 98-107 [facility] Comment on above: Performed By: #### 2 524-7 #### FELICITAS PICKETT ([id number]) [facility] ([facility]) [address] [place] [address] CO2 [Moles/Vol] 28 mmol/L Normal 21-32 [facility] Comment on above: Performed By: #### 2 524-7 #### FELICITAS PICKETT ([id number]) [facility] ([facility]) [facility] [place] [address] Creatinine [Mass/Vol] 0.76 mg/dL Normal 0.50-1.05 [facility] Comment on above: Performed By: #### 2 524-7 #### FELICITAS PICKETT ([id number]) [facility] ([facility]) [facility] [place] [address] Glomerular filtration rate/1.73 sq M.predicted 81 mL/min/1.73m*2 Normal >60 [facility] Comment on above: Result Comment: Calc ulations of estimated GFR are performed using the 2020 CKD-EPI Study Refit equation without the race variable for the IDMS-Traceable creatinine methods. https://jasn.asnjournals.org/content//ASN.638297 5804 Performed By: #### 2 524-7 #### FELICITAS PICKETT ([id number]) [facility] ([facility]) [address] [place] [address] 16190 Glucose [Mass/Vol] 70 mg/dL Low 74-99 [facility] Comment on above: Performed By: #### 2 524-7 #### FELICITAS PICKETT ([id number]) [facility] ([facility]) [address] [place] [address] 11224 Potassium [Moles/Vol] 3.8 mmol/L Normal 3.5-5.3 [facility] Comment on above: Performed By: #### 2 524-7 #### FELICITAS PICKETT ([id number]) [facility] ([facility]) [address] [place] [address] 51585 Sodium [Moles/Vol] 144 mmol/L Normal 136-145 [facility] Comment on above: Performed By: #### 2 524-7 #### FELICITAS PICKETT ([id number]) [facility] ([facility]) [address] [place] [address] 35962 Urea nitrogen [Mass/Vol] 19 mg/dL Normal 6-23 [facility] Comment on above: Performed By: #### 2 524-7 #### FELICITAS PICKETT ([id number]) [facility] [facility] ([facility]) [address] [place] [address] [phone] CBC panel Auto (Bld)on 08-18 Erythrocyte distribution width (RBC) [Ratio] 18 % High 11.5 - 14.5 % [facility] Hematocrit (Bld) [Volume fraction] 24.8 % Low 36.0 - 46.0 % [facility] Hemoglobin (Bld) [Mass/Vol] 7.9 g/dL Low 12.0 - 16.0 g/dL [facility] Interpretation and review of laboratory results Abnormal [facility] MCH (RBC) [Entitic mass] 34.8 pg High 26.0 - 34.0 pg [facility] MCHC (RBC) [Mass/Vol] 31.9 g/dL Low 32.0 - 36.0 g/dL [facility] MCV (RBC) [Entitic vol] 109 fL High 80 - 100 fL [facility] Nucleated RBC/100 WBC (Bld) [Ratio] 0 % [facility] Platelets (Bld) [#/Vol] 135 10*3/uL Low [facility] RBC (Bld) [#/Vol] 2.27 10*6/uL [facility] WBC (Bld) [#/Vol] 2.5 10*3/uL Low [facility] Erythrocyte distribution width (RBC) [Ratio] 18.0 % High 11.5-14.5 [facility] Comment on above: Performed By: #### 3 040-3 #### FELICITAS PICKETT ([id number]) [facility] ([facility]) [address] [place] [address] 63892 Hematocrit (Bld) [Volume fraction] 24.8 % Low 36.0-46.0 [facility] Comment on above: Performed By: #### 3 040-3 #### FELICITAS PICKETT ([id number]) [facility] ([facility]) [address] [place] [address] 15837 Hemoglobin (Bld) [Mass/Vol] 7.9 g/dL Low 12.0-16.0 [facility] Comment on above: Performed By: #### 3 040-3 #### FELICITAS PICKETT ([id number]) [facility] ([facility]) [address] [place] [address] 07960 MCH (RBC) [Entitic mass] 34.8 pg High 26.0-34.0 [facility] Comment on above: Performed By: #### 3 040-3 #### FELICITAS PICKETT ([id number]) [facility] ([facility]) [address] [place] [address] 14558 MCHC (RBC) [Mass/Vol] 31.9 g/dL Low 32.0-36.0 [facility] Comment on above: Performed By: #### 3 040-3 #### FELICITAS PICKETT ([id number]) [facility] ([facility]) [address] [place] [address] 20181 MCV (RBC) [Entitic vol] 109 fL High 80-100 [facility] Comment on above: Performed By: #### 3 040-3 #### FLEICITAS PICKETT ([id number]) [facility] ([facility]) [address] [place] [address] 42875 Nucleated RBC/100 WBC (Bld) [Ratio] 0.0 /100 WBCs Normal 0.0-0.0 [facility] Comment on above: Performed By: #### 3 040-3 #### FELICITAS PICKETT ([id number]) [facility] ([facility]) [address] [place] [address] [phone] Platelets (Bld) [#/Vol] 135 x10*3/uL Low 150-450 [facility] Comment on above: Performed By: #### 3 040-3 #### FELICITAS PICKETT ([id number]) [facility] ([facility]) [address] [place] [address] 09048 RBC (Bld) [#/Vol] 2.27 x10*6/uL Low 4.00-5.20 [facility] Comment on above: Performed By: #### 3 040-3 #### FELICITAS PICKETT ([id number]) [facility] ([facility]) [address] [place] [address] 37601 WBC (Bld) [#/Vol] 2.5 x10*3/uL Low 4.4-11.3 [facility] Comment on above: Performed By: #### 3 040-3 #### FELICITAS PICKETT ([id number]) [facility] ([facility]) [address] [place], [place] [id number] Magnesiumon 08-18-2024 Magnesium [Mass/Vol] 2.18 mg/dL 1.60 - 2.40 mg/dL [facility] Magnesium [Mass/Vol] 2.18 mg/dL Normal 1.60-2.40 [facility] Comment on above: Performed By: #### 3 040-3 #### FELICITAS PICKETT ([id number]) [facility] ([facility]) [address] [place] [address] Magnesium [Mass/Vol]on 08-18 Interpretation and review of laboratory results Normal [facility] No Panel Informationon 08-18 Interpretation and review of laboratory results Abnormal [facility] Phosphateon 08-18-2024 Phosphate [Mass/Vol] 1.6 mg/dL Low 2.5-4.9 [facility] Comment on above: Performed By: #### 3 040-3 #### FELICITAS PICKETT ([id number]) [facility] ([facility]) [facility] [place] [address] Phosphoruson 08-18-2024 Phosphate [Mass/Vol] 1.6 mg/dL Low 2.5 - 4 .9 mg/dL [facility] RF Small bowel Views W contr ast Nic 08-18-2024 1. Patient unable to tolerate the examination, vomiting the majority of the administered contrast. 2. Minimal oral contrast seen within the nondilated small bowel. Signed by: Gautam Puri 08/18/2024 8:09 AM Dictation workstation: [id number] DENZEL WILSON Interpreted By: Gautam Coleman, STUDY: Double-contrast upper GI series with small-bowel follow-through dated 08/17/2024. INDICATION: Pain. COMPARISON: None. ACCESSION NUMBER(S): [id number] ORDERING CLINICIAN: YELENA GARCIA TECHNIQUE: [employer] Tender radiograph of the abdomen was obtained. The patient was then given a barium meal and serial radiography of the abdomen was obtained.. 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 Residual oral contrast is seen within the proximal colon. A nonobstructive small bowel gas pattern with present. The administered contrast remained within the stomach until 50 minutes at which point the patient vomited and was unable to continue with the examination. Only minimal contrast was seen within the nondilated small bowel. MMODAL Gautam Puri MD - 08/18/2024 Interpreted By: Gautam Puri, STUDY: Double-contrast upper GI series with small-bowel follow-through dated 08/17/2024. INDICATION: Pain. COMPARISON: None. ACCESSION NUMBER(S): [id number] ORDERING CLINICIAN: YELENA GARCIA TECHNIQUE: [employer] Furnace Tender radiograph of the abdomen was obtained. The patient was then given a barium meal and serial radiography of the abdomen was obtained.. 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 Residual oral contrast is seen within the proximal colon. A nonobstructive small bowel gas pattern with present. The administered contrast remained within the stomach until 50 minutes at which point the patient vomited and was unable to continue with the examination. Only minimal contrast was seen within the nondilated small bowel. IMPRESSION: 1. Patient unable to tolerate the examination, vomiting the majority of the administered contrast. 2. Minimal oral contrast seen within the nondilated small bowel. Signed by: Gautam Puri 08/18/2024 8:09 AM Dictation workstation: [id number] [facility] Work Phone: RF Small bowel Views W contr ast POOrdered By: Gautam Puri on 08-18-2024 [facility] Work Phone: SST TOPon 08-18-2024 Extra Tube Hold for add-ons. [facility] Work Phone: Comment on above: Auto resulted. [facility] Work Phone: FL SMALL BOWEL SERIESon 07-22 FL SMALL BOWEL SERIES Interpreted By: Gautam Gordillo, STUDY: Double-contrast upper GI series with small-bowel follow-through dated 08/17/2024. INDICATION: Pain. COMPARISON: None. ACCESSION NUMBER(S): [id number] ORDERING CLINICIAN: YELENA GARCIA TECHNIQUE: [employer]cible Furnace Tender radiograph of the abdomen was obtained. The patient was then given a barium meal and serial radiography of the abdomen was obtained.. 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 Residual oral contrast is seen within the proximal colon. A nonobstructive small bowel gas pattern with present. The administered contrast remained within the stomach until 50 minutes at which point the patient vomited and was unable to continue with the examination. Only minimal contrast was seen within the nondilated small bowel. IMPRESSION: 1. Patient unable to tolerate the examination, vomiting the majority of the administered contrast. 2. Minimal oral contrast seen within the nondilated small bowel. Signed by: Gautam Puri 08/18/2024 8:09 AM Dictation workstation: [id number] [facility] Comment on above: Order Comment: Venip uncture immediately after or during the administration of Metamizole may lead to falsely low results. Testing should be performed immediately prior to Metamizole dosing. RF Small bowel Views W contr ast Nic 08-17-2024 Radiology Study observation (narrative) [facility] Work Phone: Basic metabolic 2000 panelon 08-16-2024 Anion gap [Moles/Vol] 13 mmol/L 10 - 2 0 mmol/L [facility] Calcium [Mass/Vol] 7.9 mg/dL Low 8.6 - 10. 3 mg/dL [facility] Chloride [Moles/Vol] 110 mmol/L High 98 - 10 7 mmol/L [facility] CO2 [Moles/Vol] 22 mmol/L 21 - 32 mmol/L [facility] Creatinine [Mass/Vol] 1.05 mg/dL 0.50 - 1.05 mg/dL [facility] GFR/1.73 sq M.predicted among non-blacks MDRD (S/P/Bld) [Vol rate/Area] 55 mL/min/{1.73_m2} Low - PINF [facility] Comment on above: Calculations of nhan mated GFR are performed using the 2020 CKD-EPI Study Refit equation without the race variable for the IDMS-Traceable creatinine methods. https://jasn.asnjournals.org/content//ASN.073887 8612 Glucose [Mass/Vol] 59 mg/dL Low 74 - 99 mg/dL [facility] Interpretation and review of laboratory results Abnormal [facility] Potassium [Moles/Vol] 3.7 mmol/L 3.5 - 5.3 mmol/L [facility] Sodium [Moles/Vol] 141 mmol/L 136 - 145 mmol/L [facility] Urea nitrogen [Mass/Vol] 19 mg/dL 6 - 23 mg/dL [facility] Anion gap [Moles/Vol] 13 mmol/L Normal 10-20 [facility] Comment on above: Performed By: #### 3 040-3 #### FELICITAS PICKETT ([id number]) [facility] ([facility]) [facility] [place] [address] Calcium [Mass/Vol] 7.9 mg/dL Low 8.6-10.3 [facility] Comment on above: Performed By: #### 3 040-3 #### FELICITAS PICKETT ([id number]) [facility] ([facility]) [address] [place] [address] 31744 Chloride [Moles/Vol] 110 mmol/L High 98-107 [facility] Comment on above: Performed By: #### 3 040-3 #### FELICITAS PICKETT ([id number]) [facility] ([facility]) [address] [place] [address] 75595 CO2 [Moles/Vol] 22 mmol/L Normal 21-32 [facility] Comment on above: Performed By: #### 3 040-3 #### FELICITAS PICKETT ([id number]) [facility] ([facility]) [facility] [place] [address] Creatinine [Mass/Vol] 1.05 mg/dL Normal 0.50-1.05 [facility] Comment on above: Performed By: #### 3 040-3 #### FELICITAS PICKETT ([id number]) [facility] ([facility]) [address] [place] [address] 46070 Glomerular filtration rate/1.73 sq M.predicted 55 mL/min/1.73m*2 Low >60 [facility] Comment on above: Result Comment: Calc ulations of estimated GFR are performed using the 2020 CKD-EPI Study Refit equation without the race variable for the IDMS-Traceable creatinine methods. https://jasn.asnjournals.org/content//ASN.202111 0454 Performed By: #### 3 040-3 #### FELICITAS PICKETT ([id number]) [facility] ([facility]) [address] [place] [address] 08531 Glucose [Mass/Vol] 59 mg/dL Low 74-99 [facility] Comment on above: Performed By: #### 3 040-3 #### FELICITAS PICKETT ([id number]) [facility] ([facility]) [address] [place] [address] 36668 Potassium [Moles/Vol] 3.7 mmol/L Normal 3.5-5.3 [facility] Comment on above: Performed By: #### 3 040-3 #### FELICITAS PICKETT ([id number]) [facility] ([facility]) [address] [place] [address] 80440 Sodium [Moles/Vol] 141 mmol/L Normal 136-145 [facility] Comment on above: Performed By: #### 3 040-3 #### FELICITAS PICKETT ([id number]) [facility] ([facility]) [address] [place] [address] 80492 Urea nitrogen [Mass/Vol] 19 mg/dL Normal 6-23 [facility] Comment on above: Performed By: #### 3 040-3 #### FELICITAS PICKETT ([id number]) [facility] ([facility]) [address] [place] [address] 78524 CBC panel Auto (Bld)on 08-16 Erythrocyte distribution width (RBC) [Ratio] 18.3 % High 11.5 - 14.5 % [facility] Hematocrit (Bld) [Volume fraction] 25.8 % Low 36.0 - 46.0 % [facility] Hemoglobin (Bld) [Mass/Vol] 8.4 g/dL Low 12.0 - 16.0 g/dL [facility] Interpretation and review of laboratory results Abnormal [facility] MCH (RBC) [Entitic mass] 36.1 pg High 26.0 - 34.0 pg [facility] MCHC (RBC) [Mass/Vol] 32.6 g/dL 32.0 - 36.0 g/dL [facility] MCV (RBC) [Entitic vol] 111 fL High 80 - 100 fL [facility] Nucleated RBC/100 WBC (Bld) [Ratio] 0 % [facility] Platelets (Bld) [#/Vol] 128 10*3/uL Low [facility] RBC (Bld) [#/Vol] 2.33 10*6/uL [facility] WBC (Bld) [#/Vol] 2.6 10*3/uL Low [facility] Erythrocyte distribution width (RBC) [Ratio] 18.3 % High 11.5-14.5 [facility] Comment on above: Performed By: #### 3 040-3 #### FELICITAS PICKETT ([id number]) [facility] ([facility]) [address] [place] [address] Hematocrit (Bld) [Volume fraction] 25.8 % Low 36.0-46.0 [facility] Comment on above: Performed By: #### 3 040-3 #### FELICITAS PICKETT ([id number]) [facility] ([facility]) [address] [place] [address] 23364 Hemoglobin (Bld) [Mass/Vol] 8.4 g/dL Low 12.0-16.0 [facility] Comment on above: Performed By: #### 3 040-3 #### FELICITAS PICKETT ([id number]) [facility] ([facility]) [address] [place] [address] 60790 MCH (RBC) [Entitic mass] 36.1 pg High 26.0-34.0 [facility] Comment on above: Performed By: #### 3 040-3 #### FELICITAS PICKETT ([id number]) [facility] ([facility]) [address] [place] [address] 52916 MCHC (RBC) [Mass/Vol] 32.6 g/dL Normal 32.0-36.0 [facility] Comment on above: Performed By: #### 3 040-3 #### FELICITAS PICKETT ([id number]) [facility] ([facility]) [address] [place] [address] 46041 MCV (RBC) [Entitic vol] 111 fL High 80-100 [facility] Comment on above: Performed By: #### 3 040-3 #### FELICITAS PICKETT ([id number]) [facility] ([facility]) [address] [place] [address] 90403 Nucleated RBC/100 WBC (Bld) [Ratio] 0.0 /100 WBCs Normal 0.0-0.0 [facility] Comment on above: Performed By: #### 3 040-3 #### FELICITAS PICKETT ([id number]) [facility] ([facility]) [address] [place] [address] 79968 Platelets (Bld) [#/Vol] 128 x10*3/uL Low 150-450 [facility] Comment on above: Performed By: #### 3 040-3 #### FELICITAS PICKETT (68089) [facility] ([facility]) [address] [place] [address] 52968 RBC (Bld) [#/Vol] 2.33 x10*6/uL Low 4.00-5.20 [facility] Comment on above: Performed By: #### 3 040-3 #### FELICITAS PICKETT ([id number]) [facility] ([facility]) [address] [place] [address] 63697 WBC (Bld) [#/Vol] 2.6 x10*3/uL Low 4.4-11.3 [facility] Comment on above: Performed By: #### 3 040-3 #### FELICITAS PICKETT ([id number]) [facility] ([facility]) [address] [place] [address] 31514 Glucose Test strip manual (B ld) [Mass/Vol]on 08-16-2024 Glucose [Mass/Vol] 89 mg/dL 74 - 99 mg/dL [facility] Interpretation and review of laboratory results Normal [facility] Glucose [Mass/Vol] 89 mg/dL Normal 74-99 [facility] Comment on above: Performed By: #### 3 040-3 #### FELICITAS PICKETT ([id number]) [facility] ([facility]) [address] [place] [address] Magnesiumon 08-16-2024 Magnesium [Mass/Vol] 2.28 mg/dL 1.60 - 2.40 mg/dL [facility] Magnesium [Mass/Vol] 2.28 mg/dL Normal 1.60-2.40 [facility] Comment on above: Performed By: #### 3 040-3 #### POLK PIYUSH ([id number]) [facility] ([facility]) [address] [place] [address] Magnesium [Mass/Vol]on 08-16 Interpretation and review of laboratory results Normal [facility] No Panel InformationOrdered By: Jaden Bond on 08-16-2024 Extra Tube 293 [facility] Work Phone: [facility] Work Phone: No Panel Informationon 08-16 [facility] Basic metabolic 2000 panelon 08-15-2024 Anion gap [Moles/Vol] 12 mmol/L 10 - 2 0 mmol/L [facility] Calcium [Mass/Vol] 7.4 mg/dL Low 8.6 - 10. 3 mg/dL [facility] Chloride [Moles/Vol] 109 mmol/L High 98 - 10 7 mmol/L [facility] CO2 [Moles/Vol] 23 mmol/L 21 - 32 mmol/L [facility] Creatinine [Mass/Vol] 1.44 mg/dL High 0.50 - 1.05 mg/dL [facility] GFR/1.73 sq M.predicted among non-blacks MDRD (S/P/Bld) [Vol rate/Area] 38 mL/min/{1.73_m2} Low - PINF [facility] Comment on above: Calculations of nhan mated GFR are performed using the 2020 CKD-EPI Study Refit equation without the race variable for the IDMS-Traceable creatinine methods. https://jasn.asnjournals.org/content//ASN.301328 3906 Glucose [Mass/Vol] 70 mg/dL Low 74 - 99 mg/dL [facility] Interpretation and review of laboratory results Abnormal [facility] Potassium [Moles/Vol] 3.6 mmol/L 3.5 - 5.3 mmol/L [facility] Sodium [Moles/Vol] 140 mmol/L 136 - 145 mmol/L [facility] Urea nitrogen [Mass/Vol] 23 mg/dL 6 - 23 mg/dL [facility] Anion gap [Moles/Vol] 12 mmol/L Normal 10-20 [facility] Comment on above: Performed By: #### 3 040-3 #### FELICITAS PICKETT ([id number]) [facility] ([facility]) [address] [place] [address] 07418 Calcium [Mass/Vol] 7.4 mg/dL Low 8.6-10.3 [facility] Comment on above: Performed By: #### 3 040-3 #### FELICITAS PICKETT ([id number]) [facility] ([facility]) [address] [place] [address] 14103 Chloride [Moles/Vol] 109 mmol/L High 98-107 [facility] Comment on above: Performed By: #### 3 040-3 #### FELICITAS PICKETT ([id number]) [facility] ([facility]) [address] [place] [address] [phone] CO2 [Moles/Vol] 23 mmol/L Normal 21-32 [facility] Comment on above: Performed By: #### 3 040-3 #### FELICITAS PICKETT ([id number]) [facility] ([facility]) [address] [place] [address] 09622 Creatinine [Mass/Vol] 1.44 mg/dL High 0.50-1.05 [facility] Comment on above: Performed By: #### 3 040-3 #### FELICITAS PICKETT (35783) [facility] ([facility]) [address] [place] [address] 31713 Glomerular filtration rate/1.73 sq M.predicted 38 mL/min/1.73m*2 Low >60 [facility] Comment on above: Result Comment: Calc ulations of estimated GFR are performed using the 2020 CKD-EPI Study Refit equation without the race variable for the IDMS-Traceable creatinine methods. https://jasn.asnjournals.org/content//ASN.439271 2037 Performed By: #### 3 040-3 #### FELICITAS PICKETT ([id number]) [facility] ([facility]) [address] [place] [address] 83376 Glucose [Mass/Vol] 70 mg/dL Low 74-99 [facility] Comment on above: Performed By: #### 3 040-3 #### FELICITAS PICKETT ([id number]) [facility] ([facility]) [address] [place] [address] 17088 Potassium [Moles/Vol] 3.6 mmol/L Normal 3.5-5.3 [facility] Comment on above: Performed By: #### 3 040-3 #### FELICITAS PICKETT ([id number]) [facility] ([facility]) [address] [place] [address] 09959 Sodium [Moles/Vol] 140 mmol/L Normal 136-145 [facility] Comment on above: Performed By: #### 3 040-3 #### FELICITAS PICKETT (14903) [facility] ([facility]) [address] [place] [address] 91842 Urea nitrogen [Mass/Vol] 23 mg/dL Normal 6-23 [facility] Comment on above: Performed By: #### 3 040-3 #### FELICITAS PICKETT ([id number]) [facility] ([facility]) [address] [place] [address] 08828 CBC panel Auto (Bld)on 08-15 Erythrocyte distribution width (RBC) [Ratio] 17.9 % High 11.5 - 14.5 % [facility] Hematocrit (Bld) [Volume fraction] 24 % Low 36.0 - 46.0 % [facility] Hemoglobin (Bld) [Mass/Vol] 7.9 g/dL Low 12.0 - 16.0 g/dL [facility] Interpretation and review of laboratory results Abnormal [facility] MCH (RBC) [Entitic mass] 36.4 pg High 26.0 - 34.0 pg [facility] MCHC (RBC) [Mass/Vol] 32.9 g/dL 32.0 - 36.0 g/dL [facility] MCV (RBC) [Entitic vol] 111 fL High 80 - 100 fL [facility] Nucleated RBC/100 WBC (Bld) [Ratio] 0 % [facility] Platelets (Bld) [#/Vol] 133 10*3/uL Low [facility] RBC (Bld) [#/Vol] 2.17 10*6/uL [facility] WBC (Bld) [#/Vol] 1.7 10*3/uL [facility] Erythrocyte distribution width (RBC) [Ratio] 17.9 % High 11.5-14.5 [facility] Comment on above: Performed By: #### 2 4325-3 #### FELICITAS PICKETT ([id number]) [facility] ([facility]) [address] [place] [address] 84958 Hematocrit (Bld) [Volume fraction] 24.0 % Low 36.0-46.0 [facility] Comment on above: Performed By: #### 2 5-3 #### FELICITAS PICKETT ([id number]) [facility] ([facility]) [address] [place] [address] [phone] Hemoglobin (Bld) [Mass/Vol] 7.9 g/dL Low 12.0-16.0 [facility] Comment on above: Performed By: #### 2 4325-3 #### FELICITAS PICKETT (60262) [facility] ([facility]) [address] [place] [address] 57564 MCH (RBC) [Entitic mass] 36.4 pg High 26.0-34.0 [facility] Comment on above: Performed By: #### 2 4325-3 #### FELICITAS PICKETT ([id number]) [facility] ([facility]) [address] [place] [address] 68975 MCHC (RBC) [Mass/Vol] 32.9 g/dL Normal 32.0-36.0 [facility] Comment on above: Performed By: #### 2 4324-3 #### FELICITAS PICKETT ([id number]) [facility] ([facility]) [address] [place] [address] [phone] MCV (RBC) [Entitic vol] 111 fL High 80-100 [facility] Comment on above: Performed By: #### 2 4324-3 #### FELICITAS PICKETT ([id number]) [facility] ([facility]) [address] [place] [address] 62039 Nucleated RBC/100 WBC (Bld) [Ratio] 0.0 /100 WBCs Normal 0.0-0.0 [facility] Comment on above: Performed By: #### 2 4324-3 #### FELICITAS PICKETT ([id number]) [facility] ([facility]) [address] [place] [address] 32232 Platelets (Bld) [#/Vol] 133 x10*3/uL Low 150-450 [facility] Comment on above: Performed By: #### 2 4324-3 #### FELICITAS PICKETT ([id number]) [facility] ([facility]) [address] [place] [address] 60990 RBC (Bld) [#/Vol] 2.17 x10*6/uL Low 4.00-5.20 [facility] Comment on above: Performed By: #### 2 4324-3 #### FELICITAS PICKETT ([id number]) [facility] ([facility]) [address] [place] [address] 31192 WBC (Bld) [#/Vol] 1.7 x10*3/uL Low 4.4-11.3 [facility] Comment on above: Performed By: #### 2 4324-3 #### FELICITAS PICKETT ([id number]) [facility] ([facility]) [address] [place] [address] 48841 Magnesiumon 08-15-2024 Magnesium [Mass/Vol] 2.13 mg/dL 1.60 - 2.40 mg/dL [facility] Magnesium [Mass/Vol] 2.13 mg/dL Normal 1.60-2.40 [facility] Comment on above: Performed By: #### 3 040-3 #### FELICITAS PICKETT ([id number]) [facility] ([facility]) [address] [place] [address] No Panel Informationon 08-15 Interpretation and review of laboratory results Normal [facility] Phosphateon 08-15-2024 Phosphate [Mass/Vol] 3.0 mg/dL Normal 2.5-4.9 [facility] Comment on above: Performed By: #### 3 040-3 #### FELICITAS PICKETT ([id number]) [facility] ([facility]) [address] [place] [address] Phosphoruson 08-15-2024 Phosphate [Mass/Vol] 3 mg/dL 2.5 - 4 .9 mg/dL [facility] Bacteria identified Cx Nom ( U)Ordered By: Eugenia Rasheed on 08-14-2024 Interpretation and review of laboratory results Normal [facility] Basic metabolic 2000 panelon 08-14-2024 Anion gap [Moles/Vol] 12 mmol/L 10 - 2 0 mmol/L [facility] Calcium [Mass/Vol] 7.3 mg/dL Low 8.6 - 10. 3 mg/dL [facility] Chloride [Moles/Vol] 107 mmol/L 98 - 10 7 mmol/L [facility] CO2 [Moles/Vol] 22 mmol/L 21 - 32 mmol/L [facility] Creatinine [Mass/Vol] 1.75 mg/dL High 0.50 - 1.05 mg/dL [facility] GFR/1.73 sq M.predicted among non-blacks MDRD (S/P/Bld) [Vol rate/Area] 30 mL/min/{1.73_m2} Low - PINF [facility] Comment on above: Calculations of nhan mated GFR are performed using the 2020 CKD-EPI Study Refit equation without the race variable for the IDMS-Traceable creatinine methods. https://jasn.asnjournals.org/content/early//ASN.580405 2660 Glucose [Mass/Vol] 94 mg/dL 74 - 99 mg/dL [facility] Interpretation and review of laboratory results Abnormal [facility] Potassium [Moles/Vol] 4.3 mmol/L 3.5 - 5.3 mmol/L [facility] Sodium [Moles/Vol] 137 mmol/L 136 - 145 mmol/L [facility] Urea nitrogen [Mass/Vol] 24 mg/dL High 6 - 23 mg/dL [facility] Anion gap [Moles/Vol] 12 mmol/L Normal 10-20 [facility] Comment on above: Order Comment: Post op day 1. Performed By: #### 2 4325-3 #### FELICITAS PICKETT ([id number]) [facility] ([facility]) [address] [place] [address] 00102 Calcium [Mass/Vol] 7.3 mg/dL Low 8.6-10.3 [facility] Comment on above: Order Comment: Post op day 1. Performed By: #### 2 5-3 #### FELICITAS PICKETT ([id number]) [facility] ([facility]) [address] [place] [address] Chloride [Moles/Vol] 107 mmol/L Normal 98-107 [facility] Comment on above: Order Comment: Post op day 1. Performed By: #### 2 4325-3 #### FELICITAS PICKETT ([id number]) [facility] ([facility]) [facility] [place] [address] CO2 [Moles/Vol] 22 mmol/L Normal 21-32 [facility] Comment on above: Order Comment: Post op day 1. Performed By: #### 2 4325-3 #### FELICITAS PICKETT ([id number]) [facility] ([facility]) [facility] [place] [address] Creatinine [Mass/Vol] 1.75 mg/dL High 0.50-1.05 [facility] Comment on above: Order Comment: Post op day 1. Performed By: #### 2 5-3 #### FELICITAS PICKETT ([id number]) [facility] ([facility]) [facility] [place] [address] Glomerular filtration rate/1.73 sq M.predicted 30 mL/min/1.73m*2 Low >60 [facility] Comment on above: Order Comment: Post op day 1. Result Comment: Calc ulations of estimated GFR are performed using the 2020 CKD-EPI Study Refit equation without the race variable for the IDMS-Traceable creatinine methods. https://jasn.asnjournals.org/content/early//ASN.131260 6914 Performed By: #### 2 4325-3 #### FELICITAS PICKETT ([id number]) [facility] ([facility]) [address] [place] [address] 60434 Glucose [Mass/Vol] 94 mg/dL Normal 74-99 [facility] Comment on above: Order Comment: Post op day 1. Performed By: #### 2 4324-3 #### FELICITAS PICKETT ([id number]) [facility] ([facility]) [address] [place] [address] 68320 Potassium [Moles/Vol] 4.3 mmol/L Normal 3.5-5.3 [facility] Comment on above: Order Comment: Post op day 1. Performed By: #### 2 4325-3 #### FELICITAS PICKETT ([id number]) [facility] ([facility]) [address] [place] [address] 17963 Sodium [Moles/Vol] 137 mmol/L Normal 136-145 [facility] Comment on above: Order Comment: Post op day 1. Performed By: #### 2 4325-3 #### FELICITAS PICKETT ([id number]) [facility] ([facility]) [address] [place] [address] 35714 Urea nitrogen [Mass/Vol] 24 mg/dL High 6-23 [facility] Comment on above: Order Comment: Post op day 1. Performed By: #### 2 4325-3 #### FELICITAS PICKETT ([id number]) [facility] ([facility]) [address] [place] [address] CBC panel Auto (Bld)on 08-14 Erythrocyte distribution width (RBC) [Ratio] 17.7 % High 11.5 - 14.5 % [facility] Hematocrit (Bld) [Volume fraction] 26.6 % Low 36.0 - 46.0 % [facility] Hemoglobin (Bld) [Mass/Vol] 8.6 g/dL Low 12.0 - 16.0 g/dL [facility] Interpretation and review of laboratory results Abnormal [facility] MCH (RBC) [Entitic mass] 35.8 pg High 26.0 - 34.0 pg [facility] MCHC (RBC) [Mass/Vol] 32.3 g/dL 32.0 - 36.0 g/dL [facility] MCV (RBC) [Entitic vol] 111 fL High 80 - 100 fL [facility] Nucleated RBC/100 WBC (Bld) [Ratio] 0 % [facility] Platelets (Bld) [#/Vol] 128 10*3/uL Low [facility] RBC (Bld) [#/Vol] 2.4 10*6/uL Low [facility] WBC (Bld) [#/Vol] 1.7 10*3/uL Low [facility] Erythrocyte distribution width (RBC) [Ratio] 17.7 % High 11.5-14.5 [facility] Comment on above: Order Comment: Post op day 1. Performed By: #### 2 4325-3 #### FELICITAS PICKETT ([id number]) [facility] ([facility]) [facility] [place] [address] Hematocrit (Bld) [Volume fraction] 26.6 % Low 36.0-46.0 [facility] Comment on above: Order Comment: Post op day 1. Performed By: #### 2 4325-3 #### FELICITAS PICKETT ([id number]) [facility] ([facility]) [facility] [place] [address] Hemoglobin (Bld) [Mass/Vol] 8.6 g/dL Low 12.0-16.0 [facility] Comment on above: Order Comment: Post op day 1. Performed By: #### 2 4325-3 #### FELICITAS PICKETT ([id number]) [facility] ([facility]) [address] [place] [address] 69176 MCH (RBC) [Entitic mass] 35.8 pg High 26.0-34.0 [facility] Comment on above: Order Comment: Post op day 1. Performed By: #### 2 4324-3 #### FELICITAS PICKETT ([id number]) [facility] ([facility]) [address] [place] [address] 80286 MCHC (RBC) [Mass/Vol] 32.3 g/dL Normal 32.0-36.0 [facility] Comment on above: Order Comment: Post op day 1. Performed By: #### 2 4324-3 #### FELICITAS PICKETT ([id number]) [facility] ([facility]) [address] [place] [address] 68841 MCV (RBC) [Entitic vol] 111 fL High 80-100 [facility] Comment on above: Order Comment: Post op day 1. Performed By: #### 2 4324-3 #### FELICITAS PICKETT ([id number]) [facility] ([facility]) [address] [place] [address] 74913 Nucleated RBC/100 WBC (Bld) [Ratio] 0.0 /100 WBCs Normal 0.0-0.0 [facility] Comment on above: Order Comment: Post op day 1. Performed By: #### 2 4324-3 #### FELICITAS PICKETT ([id number]) [facility] ([facility]) [address] [place] [address] 95970 Platelets (Bld) [#/Vol] 128 x10*3/uL Low 150-450 [facility] Comment on above: Order Comment: Post op day 1. Performed By: #### 2 4325-3 #### FELICITAS PICKETT ([id number]) [facility] ([facility]) [address] [place] [address] 05188 RBC (Bld) [#/Vol] 2.40 x10*6/uL Low 4.00-5.20 [facility] Comment on above: Order Comment: Post op day 1. Performed By: #### 2 4325-3 #### FELICITAS PICKETT ([id number]) [facility] ([facility]) [address] [place] [address] WBC (Bld) [#/Vol] 1.7 x10*3/uL Low 4.4-11.3 [facility] Comment on above: Order Comment: Post op day 1. Performed By: #### 2 4325-3 #### FELICITAS PICKETT ([id number]) [facility] ([facility]) [facility] [place] [address] Urine CultureOrdered By: Adrienne Rasheed on 08-14-2024 Bacteria identified Cx Nom (U) Clinically insignificant growth based on current clinical standards. [facility] Basic metabolic 2000 panelon 08-13-2024 Anion gap [Moles/Vol] 13 mmol/L 10 - 2 0 mmol/L [facility] Calcium [Mass/Vol] 7.8 mg/dL Low 8.6 - 10. 3 mg/dL [facility] Comment on above: Confirmed by repeat analysis Chloride [Moles/Vol] 105 mmol/L 98 - 10 7 mmol/L [facility] CO2 [Moles/Vol] 24 mmol/L 21 - 32 mmol/L [facility] Creatinine [Mass/Vol] 1.78 mg/dL High 0.50 - 1.05 mg/dL [facility] Comment on above: Confirmed by repeat analysis GFR/1.73 sq M.predicted among non-blacks MDRD (S/P/Bld) [Vol rate/Area] 29 mL/min/{1.73_m2} Low - PINF [facility] Comment on above: Calculations of nhan mated GFR are performed using the 2020 CKD-EPI Study Refit equation without the race variable for the IDMS-Traceable creatinine methods. https://jasn.asnjournals.org/content//ASN.670350 1172 Glucose [Mass/Vol] 106 mg/dL High 74 - 99 mg/dL [facility] Interpretation and review of laboratory results Abnormal [facility] Potassium [Moles/Vol] 4.5 mmol/L 3.5 - 5.3 mmol/L [facility] Sodium [Moles/Vol] 137 mmol/L 136 - 145 mmol/L [facility] Urea nitrogen [Mass/Vol] 19 mg/dL 6 - 23 mg/dL [facility] Anion gap [Moles/Vol] 13 mmol/L Normal 10-20 [facility] Comment on above: Performed By: #### 2 4325-3 #### FELICITAS PICKETT (22007) [facility] ([facility]) [address] [place] [address] 99400 Calcium [Mass/Vol] 7.8 mg/dL Low 8.6-10.3 [facility] Comment on above: Result Comment: Conf irmed by repeat analysis Performed By: #### 2 5-3 #### FELICITAS PICKETT ([id number]) [facility] ([facility]) [address] [place] [address] 95112 Chloride [Moles/Vol] 105 mmol/L Normal 98-107 [facility] Comment on above: Performed By: #### 2 5-3 #### FELICITAS PICKETT ([id number]) [facility] ([facility]) [address] [place] [address] 30492 CO2 [Moles/Vol] 24 mmol/L Normal 21-32 [facility] Comment on above: Performed By: #### 2 5-3 #### FELICITAS PICKETT ([id number]) [facility] ([facility]) [address] [place] [address] 25417 Creatinine [Mass/Vol] 1.78 mg/dL High 0.50-1.05 [facility] Comment on above: Result Comment: Conf irmed by repeat analysis Performed By: #### 2 4325-3 #### FELICITAS PICKETT (58466) [facility] ([facility]) [address] [place] [address] 06855 Glomerular filtration rate/1.73 sq M.predicted 29 mL/min/1.73m*2 Low >60 [facility] Comment on above: Result Comment: Calc ulations of estimated GFR are performed using the 2020 CKD-EPI Study Refit equation without the race variable for the IDMS-Traceable creatinine methods. https://jasn.asnjournals.org/content/early/ASN.082454 1090 Performed By: #### 2 4325-3 #### FELICITAS PICKETT ([id number]) [facility] ([facility]) [address] [place] [address] 47598 Glucose [Mass/Vol] 106 mg/dL High 74-99 [facility] Comment on above: Performed By: #### 2 4325-3 #### FELICITAS PICKETT ([id number]) [facility] ([facility]) [address] [place] [address] 83542 Potassium [Moles/Vol] 4.5 mmol/L Normal 3.5-5.3 [facility] Comment on above: Performed By: #### 2 4325-3 #### FELICITAS PICKETT ([id number]) [facility] ([facility]) [address] [place] [address] 78487 Sodium [Moles/Vol] 137 mmol/L Normal 136-145 [facility] Comment on above: Performed By: #### 2 4325-3 #### FELICITAS PICKETT ([id number]) [facility] ([facility]) [address] [place] [address] 31138 Urea nitrogen [Mass/Vol] 19 mg/dL Normal 6-23 [facility] Comment on above: Performed By: #### 2 4325-3 #### FELICITAS PICKETT (28395) [facility] ([facility]) [address] [place] [address] 67357 Anion gap [Moles/Vol] 10 mmol/L 10 - 2 0 mmol/L [facility] Calcium [Mass/Vol] 6.6 mg/dL Low 8.6 - 10. 3 mg/dL [facility] Comment on above: Confirmed by repeat analysis Chloride [Moles/Vol] 112 mmol/L High 98 - 10 7 mmol/L [facility] CO2 [Moles/Vol] 21 mmol/L 21 - 32 mmol/L [facility] Creatinine [Mass/Vol] 0.97 mg/dL 0.50 - 1.05 mg/dL [facility] GFR/1.73 sq M.predicted among non-blacks MDRD (S/P/Bld) [Vol rate/Area] 61 mL/min/{1.73_m2} - PINF [facility] Comment on above: Calculations of nhan mated GFR are performed using the 2020 CKD-EPI Study Refit equation without the race variable for the IDMS-Traceable creatinine methods. https://jasn.asnjournals.org/content//ASN.121998 1970 Glucose [Mass/Vol] 107 mg/dL High 74 - 99 mg/dL [facility] Interpretation and review of laboratory results Abnormal [facility] Potassium [Moles/Vol] 3.2 mmol/L Low 3.5 - 5.3 mmol/L [facility] Sodium [Moles/Vol] 140 mmol/L 136 - 145 mmol/L [facility] Urea nitrogen [Mass/Vol] 12 mg/dL 6 - 23 mg/dL [facility] Anion gap [Moles/Vol] 10 mmol/L Normal 10-20 [facility] Comment on above: Performed By: #### 2 4325-3 #### FELICITAS PICKETT ([id number]) [facility] ([facility]) [address] [place] [address] [phone] Calcium [Mass/Vol] 6.6 mg/dL Low 8.6-10.3 [facility] Comment on above: Result Comment: Conf irmed by repeat analysis Performed By: #### 2 8435-3 #### FELICITAS PICKETT (28701) [facility] ([facility]) [facility] [place] [address] Chloride [Moles/Vol] 112 mmol/L High 98-107 [facility] Comment on above: Performed By: #### 2 4325-3 #### FELICITAS PICKETT (59647) [facility] ([facility]) [address] [place] [address] CO2 [Moles/Vol] 21 mmol/L Normal 21-32 [facility] Comment on above: Performed By: #### 2 5-3 #### FELICITAS PICKETT ([id number]) [facility] ([facility]) [address] [place] [address] 60781 Creatinine [Mass/Vol] 0.97 mg/dL Normal 0.50-1.05 [facility] Comment on above: Performed By: #### 2 4324-3 #### FELICITAS PICKETT (83182) [facility] ([facility]) [address] [place] [address] 96615 Glomerular filtration rate/1.73 sq M.predicted 61 mL/min/1.73m*2 Normal >60 [facility] Comment on above: Result Comment: Calc ulations of estimated GFR are performed using the 2020 CKD-EPI Study Refit equation without the race variable for the IDMS-Traceable creatinine methods. https://jasn.asnjournals.org/content/early//ASN.829656 0458 Performed By: #### 2 5-3 #### FELICITAS PICKETT ([id number]) [facility] ([facility]) [address] [place] [address] 89563 Glucose [Mass/Vol] 107 mg/dL High 74-99 [facility] Comment on above: Performed By: #### 2 4324-3 #### FELICITAS PICKETT (76258) [facility] ([facility]) [address] [place] [address] 45628 Potassium [Moles/Vol] 3.2 mmol/L Low 3.5-5.3 [facility] Comment on above: Performed By: #### 2 5-3 #### FELICITAS PICKETT ([id number]) [facility] ([facility]) [address] [place] [address] 22232 Sodium [Moles/Vol] 140 mmol/L Normal 136-145 [facility] Comment on above: Performed By: #### 2 4325-3 #### FELICITAS PICKETT (53453) [facility] ([facility]) [address] [place] [address] Urea nitrogen [Mass/Vol] 12 mg/dL Normal - [facility] Comment on above: Performed By: #### 2 4325-3 #### FELICITAS PICKETT ([id number]) [facility] ([facility]) [address] [place] [id number] CBC W Auto Differential pane l (Bld)on 08-13-2024 Erythrocyte distribution width (RBC) [Ratio] 17.9 % High 11.5 - 14.5 % [facility] Hematocrit (Bld) [Volume fraction] 32.3 % Low 36.0 - 46.0 % [facility] Hemoglobin (Bld) [Mass/Vol] 10.8 g/dL Low 12.0 - 16.0 g/dL [facility] Immature granulocytes (Bld) [#/Vol] 0.03 10*3/uL [facility] Immature granulocytes/100 WBC (Bld) 1.5 % High 0.0 - 0.9 % [facility] Comment on above: Immature Granulocyte Count (IG) includes promyelocytes, myelocytes and metamyelocytes but does not include bands. Percent differential counts (%) should be interpreted in the context of the absolute cell counts (cells/UL). MCH (RBC) [Entitic mass] 35.9 pg High 26.0 - 34.0 pg [facility] MCHC (RBC) [Mass/Vol] 33.4 g/dL 32.0 - 36.0 g/dL [facility] MCV (RBC) [Entitic vol] 107 fL High 80 - 100 fL [facility] Nucleated RBC/100 WBC (Bld) [Ratio] 0 % [facility] Platelets (Bld) [#/Vol] 138 10*3/uL Low [facility] RBC (Bld) [#/Vol] 3.01 10*6/uL Low [facility] WBC (Bld) [#/Vol] 2 10*3/uL Low [facility] Erythrocyte distribution width (RBC) [Ratio] 17.9 % High 11.5-14.5 [facility] Comment on above: Performed By: #### 2 4325-3 #### FELICITAS PICKETT ([id number]) [facility] ([facility]) [address] [place] [address] Hematocrit (Bld) [Volume fraction] 32.3 % Low 36.0-46.0 [facility] Comment on above: Performed By: #### 2 5-3 #### FELICITAS PICKETT (04657) [facility] ([facility]) [address] [place], [place] [phone] Hemoglobin (Bld) [Mass/Vol] 10.8 g/dL Low 12.0-16.0 [facility] Comment on above: Performed By: #### 2 4324-3 #### FELICITAS PICKETT (26677) [facility] ([facility]) [address] [place] [address] Immature granulocytes (Bld) [#/Vol] 0.03 x10*3/uL Normal 0.00-0.50 [facility] Comment on above: Performed By: #### 2 5-3 #### FELICITAS PICKETT ([id number]) [facility] ([facility]) [address] [place], [place] [phone] Immature granulocytes/100 WBC (Bld) 1.5 % High 0.0-0.9 [facility] Comment on above: Result Comment: Ioana ture Granulocyte Count (IG) includes promyelocytes, myelocytes and metamyelocytes but does not include bands. Percent differential counts (%) should be interpreted in the context of the absolute cell counts (cells/UL). Performed By: #### 2 5-3 #### FELICITAS PICKETT (26089) [facility] ([facility]) [address] [place] [address] [phone] MCH (RBC) [Entitic mass] 35.9 pg High 26.0-34.0 [facility] Comment on above: Performed By: #### 2 4325-3 #### FELICITAS PICKETT ([id number]) [facility] ([facility]) [address] [place] [address] 75247 MCHC (RBC) [Mass/Vol] 33.4 g/dL Normal 32.0-36.0 [facility] Comment on above: Performed By: #### 2 4324-3 #### FELICITAS PICKETT ([id number]) [facility] ([facility]) [address] [place] [address] [phone] MCV (RBC) [Entitic vol] 107 fL High 80-100 [facility] Comment on above: Performed By: #### 2 4324-3 #### FELICITAS PICKETT (35116) [facility] ([facility]) [address] [place] [address] [phone] Nucleated RBC/100 WBC (Bld) [Ratio] 0.0 /100 WBCs Normal 0.0-0.0 [facility] Comment on above: Performed By: #### 2 4324-3 #### FELICITAS PICKETT ([id number]) [facility] ([facility]) [address] [place] [address] 99535 Platelets (Bld) [#/Vol] 138 x10*3/uL Low 150-450 [facility] Comment on above: Performed By: #### 2 4324-3 #### FELICITAS PICKETT (99593) [facility] ([facility]) [address] [place] [address] [phone] RBC (Bld) [#/Vol] 3.01 x10*6/uL Low 4.00-5.20 [facility] Comment on above: Performed By: #### 2 4324-3 #### FELICITAS PICKETT ([id number]) [facility] ([facility]) [address] [place] [address] 38707 WBC (Bld) [#/Vol] 2.0 x10*3/uL Low 4.4-11.3 [facility] Comment on above: Performed By: #### 2 4324-3 #### FELICITAS PICKETT ([id number]) [facility] ([facility]) [address] [place] [address] 84124 CBC panel Auto (Bld)on 08-13 Erythrocyte distribution width (RBC) [Ratio] 17.2 % High 11.5 - 14.5 % [facility] Hematocrit (Bld) [Volume fraction] 35.5 % Low 36.0 - 46.0 % [facility] Hemoglobin (Bld) [Mass/Vol] 12 g/dL 12.0 - 16.0 g/dL [facility] Interpretation and review of laboratory results Abnormal [facility] MCH (RBC) [Entitic mass] 35.8 pg High 26.0 - 34.0 pg [facility] MCHC (RBC) [Mass/Vol] 33.8 g/dL 32.0 - 36.0 g/dL [facility] MCV (RBC) [Entitic vol] 106 fL High 80 - 100 fL [facility] Nucleated RBC/100 WBC (Bld) [Ratio] 0 % [facility] Platelets (Bld) [#/Vol] 205 10*3/uL [facility] RBC (Bld) [#/Vol] 3.35 10*6/uL [facility] WBC (Bld) [#/Vol] 1.3 10*3/uL Low [facility] Erythrocyte distribution width (RBC) [Ratio] 17.2 % High 11.5-14.5 [facility] Comment on above: Performed By: #### 2 4321-2 #### FELICITAS PICKETT ([id number]) [facility] ([facility]) [address] [place] [address] 32096 Hematocrit (Bld) [Volume fraction] 35.5 % Low 36.0-46.0 [facility] Comment on above: Performed By: #### 2 4321-2 #### FELICITAS PICKETT ([id number]) [facility] ([facility]) [address] [place] [address] [phone] Hemoglobin (Bld) [Mass/Vol] 12.0 g/dL Normal 12.0-16.0 [facility] Comment on above: Performed By: #### 2 4321-2 #### FELICITAS PICKETT ([id number]) [facility] ([facility]) [address] [place] [address] [phone] MCH (RBC) [Entitic mass] 35.8 pg High 26.0-34.0 [facility] Comment on above: Performed By: #### 2 4321-2 #### FELICITAS PICKETT ([id number]) [facility] ([facility]) [address] [place] [address] [phone] MCHC (RBC) [Mass/Vol] 33.8 g/dL Normal 32.0-36.0 [facility] Comment on above: Performed By: #### 2 4321-2 #### FELICITAS PICKETT ([id number]) [facility] ([facility]) [address] [place] [address] [phone] MCV (RBC) [Entitic vol] 106 fL High 80-100 [facility] Comment on above: Performed By: #### 2 432-2 #### FELICITAS PICKETT ([id number]) [facility] ([facility]) [address] [place] [address] [phone] Nucleated RBC/100 WBC (Bld) [Ratio] 0.0 /100 WBCs Normal 0.0-0.0 [facility] Comment on above: Performed By: #### 2 4321-2 #### FELICITAS PICKETT ([id number]) [facility] ([facility]) [address] [place] [address] [phone] Platelets (Bld) [#/Vol] 205 x10*3/uL Normal 150-450 [facility] Comment on above: Performed By: #### 2 4321-2 #### FELICITAS PICKETT ([id number]) [facility] ([facility]) [address] [place] [address] [phone] RBC (Bld) [#/Vol] 3.35 x10*6/uL Low 4.00-5.20 [facility] Comment on above: Performed By: #### 2 4321-2 #### FELICITAS PICKETT ([id number]) [facility] ([facility]) [address] [place] [address] 25815 WBC (Bld) [#/Vol] 1.3 x10*3/uL Low 4.4-11.3 [facility] Comment on above: Performed By: #### 2 4321-2 #### POLK PIYUSH ([id number]) [facility] ([facility]) [address] [place] [address] ECG 12 LeadOrdered By: Melissa Garcia on 08-13-2024 Atrial Rate 67 BPM [facility] Work Phone: P Burnside 61 degrees [facility] Work Phone: P Offset 166 ms [facility] Work Phone: P Onset 110 [facility] Work Phone: MI Interval 214 [facility] Work Phone: Q Onset 217 ms [facility] Work Phone: QRS Count 12 beats [facility] Work Phone: QRS Duration 94 ms [facility] Work Phone: QT Interval 384 [facility] Work Phone: QTC Calculation(Bazett) 405 [facility] Work Phone: QTC Fredericia 398 [facility] Work Phone: R Burnside 18 degrees [facility] Work Phone: T Burnside 24 degrees [facility] Work Phone: T Offset 409 ms [facility] Work Phone: Ventricular Rate 67 BPM [facility] Work Phone: [facility] Work Phone: ECG 12 Leadon 08-13-2024 Sinus rhythm with 1s t degree AV block Otherwise normal ECG When compared with ECG of 09-OCT-2022 15:45, No significant change was found See ED provider note for full interpretation and clinical correlation Confirmed by Jesusita Garcia ([id number]) on 08/13/2024 3:33:08 PM MUSE Gloria Garcia, DIGITIZER-SPEECH TEACHER - 08/13/2024 Sinus rhythm with 1st degree AV block Otherwise normal ECG When compared with ECG of 09-OCT-2022 15:45, No significant change was found See ED provider note for full interpretation and clinical correlation Confirmed by Jesusita Garcia ([id number]) on 08/13/2024 3:33:08 PM [facility] Work Phone: Extra Urine Doss Tubeon 07-22 Extra Tube Hold for add-ons. [facility] Comment on above: Auto resulted. [facility] Magnesiumon 08-13-2024 Magnesium [Mass/Vol] 2.14 mg/dL 1.60 - 2.40 mg/dL [facility] Magnesium [Mass/Vol] 2.14 mg/dL Normal 1.60-2.40 [facility] Comment on above: Performed By: #### 2 4325-3 #### FELICITAS PICKETT ([id number]) [facility] ([facility]) [address] [place] [address] Magnesium [Mass/Vol] 1.32 mg/dL Low 1.60 - 2.40 mg/dL [facility] Magnesium [Mass/Vol] 1.32 mg/dL Low 1.60-2.40 [facility] Comment on above: Performed By: #### 2 4321-2 #### FELICITAS PICKETT ([id number]) [facility] ([facility]) [address] [place] [address] Manual differential performe d Ql (Bld)on 08-13-2024 Band form neutrophils (Bld) [#/Vol] 0.14 10*3/uL [facility] Band form neutrophils/100 WBC (Bld) 7 % 0.0 - 5.0 % [facility] Basophils (Bld) [#/Vol] 0 10*3/uL [facility] Basophils/100 WBC (Bld) 0 % 0.0 - 2.0 % [facility] Cells Counted Total (Bld) [#] 100 {cells} [facility] Dacrocytes LM Ql (Bld) Few [facility] Eosinophils (Bld) [#/Vol] 0 10*3/uL [facility] Eosinophils/100 WBC (Bld) 0 % 0.0 - 6.0 % [facility] Lymphocytes (Bld) [#/Vol] 0.16 10*3/uL Low [facility] Lymphocytes/100 WBC (Bld) 8 % 13.0 - 44.0 % [facility] Monocytes (Bld) [#/Vol] 0.08 10*3/uL [facility] Monocytes/100 WBC (Bld) 4 % 2.0 - 10.0 % [facility] Neutrophils (Bld) [#/Vol] 1.76 10*3/uL [facility] Ovalocytes LM Ql (Bld) Many [facility] RBC morphology finding Nom (Bld) See Below [facility] Segmented neutrophils (Bld) [#/Vol] 1.62 10*3/uL [facility] Segmented neutrophils/100 WBC (Bld) 81 % 40.0 - 80.0 % [facility] Comment on above: Percent differential counts (%) should be interpreted in the context of the absolute cell counts (cells/uL). Band form neutrophils (Bld) [#/Vol] 0.14 x10*3/uL Normal 0.00-0.50 [facility] Comment on above: Performed By: #### 2 4325-3 #### FELICITAS PICKETT ([id number]) [facility] ([facility]) [address] [place] [address] [phone] Band form neutrophils/100 WBC (Bld) 7.0 % Normal 0.0-5.0 [facility] Comment on above: Performed By: #### 2 4325-3 #### FELICITAS PICKETT ([id number]) [facility] ([facility]) [address] [place] [address] 78022 Basophils (Bld) [#/Vol] 0.00 x10*3/uL Normal 0.00-0.10 [facility] Comment on above: Performed By: #### 2 4325-3 #### FELICITAS PICKETT ([id number]) [facility] ([facility]) [address] [place] [address] 89914 Basophils/100 WBC (Bld) 0.0 % Normal 0.0-2.0 [facility] Comment on above: Performed By: #### 2 4324-3 #### FELICITAS PICKETT ([id number]) [facility] ([facility]) [address] [place] [address] 64544 Cells Counted Total (Bld) [#] 100 Normal [facility] Comment on above: Performed By: #### 2 4324-3 #### FELICITAS PICKETT ([id number]) [facility] ([facility]) [address] [place] [address] 36943 Dacrocytes LM Ql (Bld) Few Normal [facility] Comment on above: Performed By: #### 2 4324-3 #### FELICITAS PICKETT (26505) [facility] ([facility]) [address] [place] [address] [phone] Eosinophils (Bld) [#/Vol] 0.00 x10*3/uL Normal 0.00-0.40 [facility] Comment on above: Performed By: #### 2 4324-3 #### FELICITAS PICKETT ([id number]) [facility] ([facility]) [address] [place] [address] 11184 Eosinophils/100 WBC (Bld) 0.0 % Normal 0.0-6.0 [facility] Comment on above: Performed By: #### 2 4324-3 #### FELICITAS PICKETT ([id number]) [facility] ([facility]) [address] [place] [address] 03213 Lymphocytes (Bld) [#/Vol] 0.16 x10*3/uL Low 0.80-3.00 [facility] Comment on above: Performed By: #### 2 4324-3 #### FELICITAS PICKETT ([id number]) [facility] ([facility]) [address] [place] [address] 94750 Lymphocytes/100 WBC (Bld) 8.0 % Normal 13.0-44.0 [facility] Comment on above: Performed By: #### 2 4324-3 #### FELICITAS PICKETT ([id number]) [facility] ([facility]) [address] [place] [address] 20523 Monocytes (Bld) [#/Vol] 0.08 x10*3/uL Normal 0.05-0.80 [facility] Comment on above: Performed By: #### 2 4324-3 #### FELICITAS PICKETT ([id number]) [facility] ([facility]) [address] [place] [address] 41700 Monocytes/100 WBC (Bld) 4.0 % Normal 2.0-10.0 [facility] Comment on above: Performed By: #### 2 4324-3 #### FELICITAS PICKETT ([id number]) [facility] ([facility]) [address] [place] [address] 08305 Neutrophils (Bld) [#/Vol] 1.76 x10*3/uL Normal 1.60-5.50 [facility] Comment on above: Performed By: #### 2 4324-3 #### FELICITAS PICKETT ([id number]) [facility] ([facility]) [address] [place] [address] 04144 Ovalocytes LM Ql (Bld) Many Normal [facility] Comment on above: Performed By: #### 2 4324-3 #### FELICITAS PICKETT ([id number]) [facility] ([facility]) [address] [place] [address] 85786 RBC morphology finding Nom (Bld) See Below Normal [facility] Comment on above: Performed By: #### 2 4324-3 #### FELICITAS PICKETT ([id number]) [facility] ([facility]) [address] [place] [address] 14336 Segmented neutrophils (Bld) [#/Vol] 1.62 x10*3/uL Normal 1.60-5.00 [facility] Comment on above: Performed By: #### 2 4324-3 #### FELICITAS PICKETT ([id number]) [facility] ([facility]) [address] [place] [address] 72187 Segmented neutrophils/100 WBC (Bld) 81.0 % Normal 40.0-80.0 [facility] Comment on above: Result Comment: Perc ent differential counts (%) should be interpreted in the context of the absolute cell counts (cells/uL). Performed By: #### 2 4325-3 #### FELICITAS PICKETT ([id number]) [facility] ([facility]) [address] [place] [address] No Panel Informationon 08-13 Interpretation and review of laboratory results Normal [facility] Interpretation and review of laboratory results Abnormal [facility] Interpretation and review of laboratory results Abnormal [facility] Phosphateon 08-13-2024 Phosphate [Mass/Vol] 4.7 mg/dL Normal 2.5-4.9 [facility] Comment on above: Performed By: #### 2 4325-3 #### FELICITAS PICKETT ([id number]) [facility] ([facility]) [address] [place] [address] Phosphate [Mass/Vol] 2.4 mg/dL Low 2.5-4.9 [facility] Comment on above: Performed By: #### 2 4321-2 #### FELICITAS PICKETT ([id number]) [facility] ([facility]) [address] [place] [address] Phosphoruson 08-13-2024 Phosphate [Mass/Vol] 4.7 mg/dL 2.5 - 4 .9 mg/dL [facility] Phosphate [Mass/Vol] 2.4 mg/dL Low 2.5 - 4 .9 mg/dL [facility] Surgical pathology studyon 0 08-13-2024 Surgical pathology study Pathology report.total SEE COMMENT Surgical Pathology Case: [id number] Authorizing Provider: Yelena Garcia MD Collected: 08/13/2024 0047 Ordering Location: [facility] Received: 08/16/2024 1620 Center OR Pathologist: Spring Pruitt MD Specimen: COLON - RIGHT HEMICOLECTOMY, ileocecectomy with intussusception Path report.final diagnosis SEE COMMENT A. 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 - Metastatic adenocarcinoma is present at the proximal and distal margins of resection. - Metastatic adenocarcinoma involves fifteen out of sixteen lymph nodes (15/16). - See note. NOTE: Multiple sections from the terminal ileum, appendix, ileocecal valve, cecum and ascending colon show involvement by invasive adenocarcinoma. No precursor lesion is identified. The tumor predominantly involves the submucosa, muscularis propria, and serosal surfaces of the small bowel and colon. Given the history of invasive ductal carcinoma (2008), the findings would be most consistent with metastatic breast cancer. The sampled mesenteric margin shows invasive carcinoma within a lymph node. The separate ring of bowel wall with marga does not show evidence of malignancy. Immunohistochemical stains were performed to further evaluate this lesion and show the following staining within lesional cells: Positive: CK7, MAURILIO-3 Negative:CK20, CDX-2 The case findings were communicated via secure email to Dr. Yelena Garcia on 08/22/2024 at 10:48 AM. The results of ancillary stains (ER/MI/HER2) will be reported as an addendum. Addendum electronically signed by Paresh Chino DO on 08/31/2024 at 1211 EDT Addendum electronically signed by Paresh Chino DO on 08/26/2024 at 1253 EDT at 1533 EDT Laboratory comment By the signature on this report, the individual or group listed as making the Final Interpretation/Diagnosis certifies that they have reviewed this case. Synoptic report SEE COMMENT Breast Biomarker Reporting Template (Added in Addendum) BREAST BIOMARKER REPORTING TEMPLATE - A Protocol posted: 03/04/2023 Test(s) Performed: Estrogen Receptor (ER) Status: Positive (greater than 10% of cells demonstrate nuclear positivity) Percentage of Cells with Nuclear Positivity: 21-30% Average Intensity of Staining: Moderate Test Type: Food and Drug Administration (FDA) cleared (test / vendor): Lyly CONFIRM anti-(ER) (SP1) Rabbit Monoclonal Primary Antibody, Lyly Multimer Detection Primary Antibody: SP1 Scoring System: No separate scoring system used Test(s) Performed: Progesterone Receptor (PgR) Status: Positive Percentage of Cells with Nuclear Positivity: 51-60% Average Intensity of Staining: Strong Test Type: Food and Drug Administration (FDA) cleared (test / vendor): Lyly CONFIRM anti-(MI) (1E2) Rabbit Monoclonal Primary Anitbody, Lyly Multimer Detection Primary Antibody: 1E2 Scoring System: No separate scoring system used Test(s) Performed: HER2 by Immunohistochemistry: Equivocal (Score 2+) Test Type: Food and Drug Administration (FDA) cleared (test / vendor): Lyly Pathway anti-HER-2/roderick (4B5) Rabbit Monoclonal Primary Antibody, Lyly Multimer Detection Primary Antibody: 4B5 Cold Ischemia and Fixation Times: Cannot be determined: Indeterminate Testing Performed on Block Number(s): A10 METHODS Fixative: Formalin Image Analysis: Not performed Comment(s): Her2 by DISH is in progress and results will be issued in an addendum Breast Biomarker Reporting Template (Added in Addendum) BREAST BIOMARKER REPORTING TEMPLATE - A Protocol posted: 03/04/2023 Test(s) Performed: HER2 by in situ Hybridization: Negative (not amplified) Number of Observers: 1 Number of Invasive Tumor Cells Counted: 20 cells Method: Dual probe assay Average Number of HER2 Signals per Cell: 3.2 Average Number of CEP17 Signals per Cell: 2.9 HER2 / CEP17 Ratio: 1.1 Test Type: Food and Drug Administration (FDA) cleared (test / vendor): Lyly Glyndon HER2 Dual JACIEL DNA Probe Cocktail Assay, Lyly UltraView SISH DNP Detection. Cold Ischemia and Fixation Times: Meet requirements specified in latest version of the ASCO / CAP Guidelines Testing Performed on Block Number(s): A10 METHODS Fixative: Formalin Image Analysis: Not performed Path report.relevant Hx SEE COMMENT Pre-op diagnosis: Intussusception (Multi) [K56.1] Path report.gross observation SEE COMMENT A: Received in formalin, labeled with the patient's name and hospital number, and HEMICOL R, is a convoluted and adhesed segment of colon, including the terminal ileum, and attached appendix. The terminal ileum measures 3.3 cm in length. The colon measures 10.5 cm in length. The attached appendix measures 4.5 cm in length and is centrally stenotic, measuring 0.2 cm (more content not included)... [facility] Comment on above: Order Comment: Venip uncture immediately after or during the administration of Metamizole may lead to falsely low results. Testing should be performed immediately prior to Metamizole dosing. Bacteria identifiedon 2024 Bacteria identified Cx Nom (U) Test: Urine Culture Specimen Source: Clean Catch/Voided Specimen Type: Urine Specimen Date: 08/12/20241324 Result Date: 08/14/2024824 Result Status: Final result Abnormal: No Resulting Lab: [facility] [address] [place] [address] CULTURE Clinically insignificant growth based on current clinical standards. [facility] Comment on above: Performed By: #### 2 4325-3 #### POLK PIYUSH ([id number]) [facility] ([facility]) [address] [place] [address] Basic metabolic 2000 panelon 08-12-2024 Anion gap [Moles/Vol] 11 mmol/L 10 - 2 0 mmol/L [facility] Calcium [Mass/Vol] 8.9 mg/dL 8.6 - 10. 3 mg/dL [facility] Chloride [Moles/Vol] 105 mmol/L 98 - 10 7 mmol/L [facility] CO2 [Moles/Vol] 27 mmol/L 21 - 32 mmol/L [facility] Creatinine [Mass/Vol] 0.81 mg/dL 0.50 - 1.05 mg/dL [facility] GFR/1.73 sq M.predicted among non-blacks MDRD (S/P/Bld) [Vol rate/Area] 75 mL/min/{1.73_m2} - PINF [facility] Comment on above: Calculations of nhan mated GFR are performed using the 2020 CKD-EPI Study Refit equation without the race variable for the IDMS-Traceable creatinine methods. https://jasn.asnjournals.org/content/early//ASN.859236 7517 Glucose [Mass/Vol] 94 mg/dL 74 - 99 mg/dL [facility] Potassium [Moles/Vol] 3.6 mmol/L 3.5 - 5.3 mmol/L [facility] Sodium [Moles/Vol] 139 mmol/L 136 - 145 mmol/L [facility] Urea nitrogen [Mass/Vol] 9 mg/dL 6 - 23 mg/dL [facility] Anion gap [Moles/Vol] 11 mmol/L Normal 10-20 [facility] Comment on above: Performed By: #### 2 4321-2 #### FELICITAS PICKETT ([id number]) [facility] ([facility]) [address] [place] [address] Calcium [Mass/Vol] 8.9 mg/dL Normal 8.6-10.3 [facility] Comment on above: Performed By: #### 2 4321-2 #### FELICITAS PICKETT ([id number]) [facility] ([facility]) [address] [place] [address] Chloride [Moles/Vol] 105 mmol/L Normal 98-107 [facility] Comment on above: Performed By: #### 2 4321-2 #### FELICITAS PICKETT ([id number]) [facility] ([facility]) [address] [place] [address] CO2 [Moles/Vol] 27 mmol/L Normal 21-32 [facility] Comment on above: Performed By: #### 2 4321-2 #### FELICITAS PICKETT ([id number]) [facility] ([facility]) [address] [place] [address] Creatinine [Mass/Vol] 0.81 mg/dL Normal 0.50-1.05 [facility] Comment on above: Performed By: #### 2 4321-2 #### FELICITAS PICKETT ([id number]) [facility] ([facility]) [facility] [place] [address] Glomerular filtration rate/1.73 sq M.predicted 75 mL/min/1.73m*2 Normal >60 [facility] Comment on above: Result Comment: Calc ulations of estimated GFR are performed using the 2020 CKD-EPI Study Refit equation without the race variable for the IDMS-Traceable creatinine methods. https://jasn.asnjournals.org/content/early//ASN.290244 8447 Performed By: #### 2 4321-2 #### FELICITAS PICKETT ([id number]) [facility] ([facility]) [address] [place] [address] 14496 Glucose [Mass/Vol] 94 mg/dL Normal 74-99 [facility] Comment on above: Performed By: #### 2 4321-2 #### FELICITAS PICKETT ([id number]) [facility] ([facility]) [address] [place] [address] 10097 Potassium [Moles/Vol] 3.6 mmol/L Normal 3.5-5.3 [facility] Comment on above: Performed By: #### 2 4321-2 #### FELICITAS PICKETT ([id number]) [facility] ([facility]) [address] [place] [address] 51041 Sodium [Moles/Vol] 139 mmol/L Normal 136-145 [facility] Comment on above: Performed By: #### 2 4321-2 #### FELICITAS PICKETT ([id number]) [facility] ([facility]) [address] [place] [address] 77743 Urea nitrogen [Mass/Vol] 9 mg/dL Normal 6-23 [facility] Comment on above: Performed By: #### 2 4321-2 #### FELICITAS PICKETT ([id number]) [facility] ([facility]) [address] [place] [address] 21920 Anion gap [Moles/Vol] 11 mmol/L 10 - 2 0 mmol/L [facility] Calcium [Mass/Vol] 9.5 mg/dL 8.6 - 10. 3 mg/dL [facility] Chloride [Moles/Vol] 104 mmol/L 98 - 10 7 mmol/L [facility] CO2 [Moles/Vol] 29 mmol/L 21 - 32 mmol/L [facility] Creatinine [Mass/Vol] 0.93 mg/dL 0.50 - 1.05 mg/dL [facility] GFR/1.73 sq M.predicted among non-blacks MDRD (S/P/Bld) [Vol rate/Area] 64 mL/min/{1.73_m2} - PINF [facility] Comment on above: Calculations of nhan mated GFR are performed using the 2020 CKD-EPI Study Refit equation without the race variable for the IDMS-Traceable creatinine methods. https://jasn.asnjournals.org/content//ASN.578819 8736 Glucose [Mass/Vol] 112 mg/dL High 74 - 99 mg/dL [facility] Interpretation and review of laboratory results Abnormal [facility] Potassium [Moles/Vol] 4 mmol/L 3.5 - 5.3 mmol/L [facility] Sodium [Moles/Vol] 140 mmol/L 136 - 145 mmol/L [facility] Urea nitrogen [Mass/Vol] 11 mg/dL 6 - 23 mg/dL [facility] Anion gap [Moles/Vol] 11 mmol/L Normal 10-20 [facility] Comment on above: Performed By: #### 2 4321-2 #### FELICITAS PICKETT ([id number]) [facility] ([facility]) [facility] [place] [address] Calcium [Mass/Vol] 9.5 mg/dL Normal 8.6-10.3 [facility] Comment on above: Performed By: #### 2 4321-2 #### FELICITAS PICKETT ([id number]) [facility] ([facility]) [address] [place] [address] Chloride [Moles/Vol] 104 mmol/L Normal 98-107 [facility] Comment on above: Performed By: #### 2 4321-2 #### FELICITAS PICKETT ([id number]) [facility] ([facility]) [facility] [place] [address] CO2 [Moles/Vol] 29 mmol/L Normal 21-32 [facility] Comment on above: Performed By: #### 2 4321-2 #### FELICITAS PICKETT ([id number]) [facility] ([facility]) [facility] [place] [address] Creatinine [Mass/Vol] 0.93 mg/dL Normal 0.50-1.05 [facility] Comment on above: Performed By: #### 2 4321-2 #### FELICITAS PICKETT ([id number]) [facility] ([facility]) [address] [place] [address]0844 Glomerular filtration rate/1.73 sq M.predicted 64 mL/min/1.73m*2 Normal >60 [facility] Comment on above: Result Comment: Calc ulations of estimated GFR are performed using the 2020 CKD-EPI Study Refit equation without the race variable for the IDMS-Traceable creatinine methods. https://jasn.asnjournals.org/content//ASN.632552 8661 Performed By: #### 2 4321-2 #### FELICITAS PICKETT ([id number]) [facility] ([facility]) [address] [place] [address] 17575 Glucose [Mass/Vol] 112 mg/dL High 74-99 [facility] Comment on above: Performed By: #### 2 4321-2 #### FELICITAS PICKETT ([id number]) [facility] ([facility]) [address] [place] [address] 64218 Potassium [Moles/Vol] 4.0 mmol/L Normal 3.5-5.3 [facility] Comment on above: Performed By: #### 2 4321-2 #### FELICITAS PICKETT ([id number]) [facility] ([facility]) [address] [place] [address] 34850 Sodium [Moles/Vol] 140 mmol/L Normal 136-145 [facility] Comment on above: Performed By: #### 2 4321-2 #### FELICITAS PICKETT ([id number]) [facility] ([facility]) [address] [place] [address] 10562 Urea nitrogen [Mass/Vol] 11 mg/dL Normal 6-23 [facility] Comment on above: Performed By: #### 2 4321-2 #### FELICITAS PICKETT ([id number]) [facility] ([facility]) [address] [place] [address] CBC W Auto Differential pane l (Bld)on 08-12-2024 Basophils (Bld) [#/Vol] 0.03 10*3/uL [facility] Basophils/100 WBC (Bld) 2.2 % 0.0 - 2.0 % [facility] Eosinophils (Bld) [#/Vol] 0.01 10*3/uL [facility] Eosinophils/100 WBC (Bld) 0.7 % 0.0 - 6.0 % [facility] Erythrocyte distribution width (RBC) [Ratio] 16.7 % High 11.5 - 14.5 % [facility] Hematocrit (Bld) [Volume fraction] 31.6 % Low 36.0 - 46.0 % [facility] Hemoglobin (Bld) [Mass/Vol] 10.8 g/dL Low 12.0 - 16.0 g/dL [facility] Immature granulocytes (Bld) [#/Vol] 0.01 10*3/uL [facility] Immature granulocytes/100 WBC (Bld) 0.7 % 0.0 - 0.9 % [facility] Comment on above: Immature Granulocyte Count (IG) includes promyelocytes, myelocytes and metamyelocytes but does not include bands. Percent differential counts (%) should be interpreted in the context of the absolute cell counts (cells/UL). Interpretation and review of laboratory results Abnormal [facility] Lymphocytes (Bld) [#/Vol] 0.24 10*3/uL Low [facility] Lymphocytes/100 WBC (Bld) 17.4 % 13.0 - 44.0 % [facility] MCH (RBC) [Entitic mass] 35.9 pg High 26.0 - 34.0 pg [facility] MCHC (RBC) [Mass/Vol] 34.2 g/dL 32.0 - 36.0 g/dL [facility] MCV (RBC) [Entitic vol] 105 fL High 80 - 100 fL [facility] Monocytes (Bld) [#/Vol] 0.2 10*3/uL [facility] Monocytes/100 WBC (Bld) 14.5 % 2.0 - 10.0 % [facility] Neutrophils (Bld) [#/Vol] 0.89 10*3/uL Low [facility] Comment on above: Percent differential counts (%) should be interpreted in the context of the absolute cell counts (cells/uL). Neutrophils/100 WBC (Bld) 64.5 % 40.0 - 80.0 % [facility] Nucleated RBC/100 WBC (Bld) [Ratio] 0 % [facility] Platelets (Bld) [#/Vol] 200 10*3/uL [facility] RBC (Bld) [#/Vol] 3.01 10*6/uL [facility] WBC (Bld) [#/Vol] 1.4 10*3/uL [facility] Basophils (Bld) [#/Vol] 0.03 x10*3/uL Normal 0.00-0.10 [facility] Comment on above: Performed By: #### 5 7021-8 #### FELICITAS PICKETT ([id number]) [facility] ([facility]) [address] [place] [address] 17604 Basophils/100 WBC (Bld) 2.2 % Normal 0.0-2.0 [facility] Comment on above: Performed By: #### 5 7021-8 #### FELICITAS PICKETT ([id number]) [facility] ([facility]) [address] [place] [address] 86045 Eosinophils (Bld) [#/Vol] 0.01 x10*3/uL Normal 0.00-0.40 [facility] Comment on above: Performed By: #### 5 7021-8 #### FELICITAS PICKETT ([id number]) [facility] ([facility]) [address] [place] [address] 39900 Eosinophils/100 WBC (Bld) 0.7 % Normal 0.0-6.0 [facility] Comment on above: Performed By: #### 5 7021-8 #### FELICITAS PICKETT ([id number]) [facility] ([facility]) [address] [place] [address] 51928 Erythrocyte distribution width (RBC) [Ratio] 16.7 % High 11.5-14.5 [facility] Comment on above: Performed By: #### 5 7021-8 #### FELICITAS PICKETT ([id number]) [facility] ([facility]) [address] [place] [address] Hematocrit (Bld) [Volume fraction] 31.6 % Low 36.0-46.0 [facility] Comment on above: Performed By: #### 5 7021-8 #### FELICITAS PICKETT ([id number]) [facility] ([facility]) [address] [place] [address] Hemoglobin (Bld) [Mass/Vol] 10.8 g/dL Low 12.0-16.0 [facility] Comment on above: Performed By: #### 5 7021-8 #### FELICITAS PICKETT ([id number]) [facility] ([facility]) [address] [place] [address] Immature granulocytes (Bld) [#/Vol] 0.01 x10*3/uL Normal 0.00-0.50 [facility] Comment on above: Performed By: #### 5 7021-8 #### FELICITAS PICKETT ([id number]) [facility] ([facility]) [address] [place] [address] Immature granulocytes/100 WBC (Bld) 0.7 % Normal 0.0-0.9 [facility] Comment on above: Result Comment: Ioana ture Granulocyte Count (IG) includes promyelocytes, myelocytes and metamyelocytes but does not include bands. Percent differential counts (%) should be interpreted in the context of the absolute cell counts (cells/UL). Performed By: #### 5 7021-8 #### FELICITAS PICKETT ([id number]) [facility] ([facility]) [address] [place], [place] [id number] Lymphocytes (Bld) [#/Vol] 0.24 x10*3/uL Low 0.80-3.00 [facility] Comment on above: Performed By: #### 5 7021-8 #### FELICITAS PICKETT ([id number]) [facility] ([facility]) [address] [place] [address] 33553 Lymphocytes/100 WBC (Bld) 17.4 % Normal 13.0-44.0 [facility] Comment on above: Performed By: #### 5 7021-8 #### FELICITAS PICKETT ([id number]) [facility] ([facility]) [address] [place] [address] 20857 MCH (RBC) [Entitic mass] 35.9 pg High 26.0-34.0 [facility] Comment on above: Performed By: #### 5 7021-8 #### FELICITAS PICKETT ([id number]) [facility] ([facility]) [address] [place] [address] 51773 MCHC (RBC) [Mass/Vol] 34.2 g/dL Normal 32.0-36.0 [facility] Comment on above: Performed By: #### 5 7021-8 #### FELICITAS PICKETT ([id number]) [facility] ([facility]) [address] [place] [address] 34470 MCV (RBC) [Entitic vol] 105 fL High 80-100 [facility] Comment on above: Performed By: #### 5 7021-8 #### FELICITAS PICKETT ([id number]) [facility] ([facility]) [address] [place] [address] 89410 Monocytes (Bld) [#/Vol] 0.20 x10*3/uL Normal 0.05-0.80 [facility] Comment on above: Performed By: #### 5 7021-8 #### FELICITAS PICKETT ([id number]) [facility] ([facility]) [address] [place] [address] 16436 Monocytes/100 WBC (Bld) 14.5 % Normal 2.0-10.0 [facility] Comment on above: Performed By: #### 5 7021-8 #### FELICITAS PICKETT ([id number]) [facility] ([facility]) [address] [place] [address] 69865 Neutrophils (Bld) [#/Vol] 0.89 x10*3/uL Low 1.60-5.50 [facility] Comment on above: Result Comment: Perc ent differential counts (%) should be interpreted in the context of the absolute cell counts (cells/uL). Performed By: #### 5 7021-8 #### FELICITAS PICKETT ([id number]) [facility] ([facility]) [address] [place] [address] 32770 Neutrophils/100 WBC (Bld) 64.5 % Normal 40.0-80.0 [facility] Comment on above: Performed By: #### 5 7021-8 #### FELICITAS PICKETT ([id number]) [facility] ([facility]) [address] [place] [address] 90617 Nucleated RBC/100 WBC (Bld) [Ratio] 0.0 /100 WBCs Normal 0.0-0.0 [facility] Comment on above: Performed By: #### 5 7021-8 #### FELICITAS PICKETT ([id number]) [facility] ([facility]) [address] [place] [address] 40163 Platelets (Bld) [#/Vol] 200 x10*3/uL Normal 150-450 [facility] Comment on above: Performed By: #### 5 7021-8 #### FELICITAS PICKETT ([id number]) [facility] ([facility]) [address] [place] [address] 20199 RBC (Bld) [#/Vol] 3.01 x10*6/uL Low 4.00-5.20 [facility] Comment on above: Performed By: #### 5 7021-8 #### FELICITAS PICKETT ([id number]) [facility] ([facility]) [address] [place] [address] 04543 WBC (Bld) [#/Vol] 1.4 x10*3/uL Low 4.4-11.3 [facility] Comment on above: Performed By: #### 5 7021-8 #### FELICITAS PICKETT ([id number]) [facility] ([facility]) [address] [place] [address] 22556 CBC panel Auto (Bld)on 08-12 Erythrocyte distribution width (RBC) [Ratio] 16.7 % High 11.5 - 14.5 % [facility] Hematocrit (Bld) [Volume fraction] 28.7 % Low 36.0 - 46.0 % [facility] Hemoglobin (Bld) [Mass/Vol] 9.7 g/dL Low 12.0 - 16.0 g/dL [facility] Interpretation and review of laboratory results Abnormal [facility] MCH (RBC) [Entitic mass] 35.8 pg High 26.0 - 34.0 pg [facility] MCHC (RBC) [Mass/Vol] 33.8 g/dL 32.0 - 36.0 g/dL [facility] MCV (RBC) [Entitic vol] 106 fL High 80 - 100 fL [facility] Nucleated RBC/100 WBC (Bld) [Ratio] 0 % [facility] Platelets (Bld) [#/Vol] 186 10*3/uL [facility] RBC (Bld) [#/Vol] 2.71 10*6/uL [facility] WBC (Bld) [#/Vol] 1.2 10*3/uL Low [facility] Erythrocyte distribution width (RBC) [Ratio] 16.7 % High 11.5-14.5 [facility] Comment on above: Performed By: #### 2 4321-2 #### FELICITAS PICKETT ([id number]) [facility] ([facility]) [address] [place] [address] 28199 Hematocrit (Bld) [Volume fraction] 28.7 % Low 36.0-46.0 [facility] Comment on above: Performed By: #### 2 4321-2 #### FELICITAS PICKETT (83641) [facility] ([facility]) [address] [place] [address] 47998 Hemoglobin (Bld) [Mass/Vol] 9.7 g/dL Low 12.0-16.0 [facility] Comment on above: Performed By: #### 2 4321-2 #### FELICITAS PICKETT ([id number]) [facility] ([facility]) [address] [place] [address] 82602 MCH (RBC) [Entitic mass] 35.8 pg High 26.0-34.0 [facility] Comment on above: Performed By: #### 2 4321-2 #### FELICITAS PICKETT ([id number]) [facility] ([facility]) [address] [place] [address] 34564 MCHC (RBC) [Mass/Vol] 33.8 g/dL Normal 32.0-36.0 [facility] Comment on above: Performed By: #### 2 4321-2 #### FELICITAS PICKETT ([id number]) [facility] ([facility]) [address] [place] [address] 44924 MCV (RBC) [Entitic vol] 106 fL High 80-100 [facility] Comment on above: Performed By: #### 2 4321-2 #### FELICITAS PICKETT ([id number]) [facility] ([facility]) [address] [place] [address] 41283 Nucleated RBC/100 WBC (Bld) [Ratio] 0.0 /100 WBCs Normal 0.0-0.0 [facility] Comment on above: Performed By: #### 2 4321-2 #### FELICITAS PICKETT ([id number]) [facility] ([facility]) [address] [place] [address] 74497 Platelets (Bld) [#/Vol] 186 x10*3/uL Normal 150-450 [facility] Comment on above: Performed By: #### 2 4321-2 #### FELICITAS PICKETT ([id number]) [facility] ([facility]) [address] [place] [address] 79106 RBC (Bld) [#/Vol] 2.71 x10*6/uL Low 4.00-5.20 [facility] Comment on above: Performed By: #### 2 4321-2 #### FELICITAS PICKETT ([id number]) [facility] ([facility]) [address] [place] [address] 67908 WBC (Bld) [#/Vol] 1.2 x10*3/uL Low 4.4-11.3 [facility] Comment on above: Performed By: #### 2 4321-2 #### POLK PIYUSH ([id number]) [facility] ([facility]) [address] [place] [address] CT ABDOMEN PELVIS WO IV CONT Juliana 08-12-2024 CT ABDOMEN PELVIS WO IV CONTRAST Interpreted By: Aubrey Middleton, STUDY: CT ABDOMEN PELVIS WO IV CONTRAST; 08/12/2024 5:11 pm INDICATION: Signs/Symptoms:Concern for intussusception. COMPARISON: Same day ACCESSION NUMBER(S): [id number] ORDERING CLINICIAN: JESUSITA SIM TECHNIQUE: CT of the abdomen and pelvis was performed without IV contrast.. Contiguous axial images were obtained at 3 mm slice thickness through the abdomen and pelvis. Coronal and sagittal reconstructions at 3 mm slice thickness were performed. No intravenous contrast was administered; positive oral contrast was given. FINDINGS: Please note that the evaluation of vessels, lymph nodes and organs is limited without intravenous contrast. LOWER CHEST: The visualized lung base is unremarkable. The heart is normal in size without evidence of pericardial effusion. No pleural effusion is present. Visualized distal esophagus appears normal. ABDOMEN: LIVER: The liver is normal in size without evidence of focal liver lesions. BILE DUCTS: The intrahepatic and extrahepatic ducts are not dilated. GALLBLADDER: The gallbladder is present. PANCREAS: The pancreas appears unremarkable without evidence of ductal dilatation or masses. SPLEEN: The spleen is normal in size. ADRENAL GLANDS: Bilateral adrenal glands appear normal. KIDNEYS AND URETERS: The kidneys are normal in size and unremarkable in appearance. No hydroureteronephrosis or nephroureterolithiasis is identified. PELVIS: BLADDER: The urinary bladder appears normal without abnormal wall thickening. REPRODUCTIVE ORGANS: Hysterectomy. 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 This fatty density (2/83, 81) may also reflect the ileocecal valve. Small bowel loops in the right lower quadrant are now more distended and there is new ascites. Diverticulosis. Evidence of prior left inguinal hernia/left ventral wall hernia repair. VESSELS: There is no aneurysmal dilatation of the abdominal aorta. The IVC appears normal. PERITONEUM/RETROPERITONEU M/LYMPH NODES: There is no free or loculated fluid collection, no free intraperitoneal air. The retroperitoneum appears normal. New small volume ascites. ABDOMINAL WALL: The abdominal wall soft tissues appear normal. Small fat containing right inguinal hernia. Induration of the gluteal soft tissues re-identified. Similar to earlier in the day BONES: Multifocal sclerotic lesions throughout the visualized spine. Posterior osteophyte formation at L3 causing moderate spinal canal stenosis. IMPRESSION: 1. Similar appearance of the fatty density and question of ileocolic intussusception. There may be a lipoma in this region acting as a lead point. There is progressed small-bowel dilatation and new ascites, concerning for progressive obstruction. Recommend surgical consultation. MACRO: None Signed by: Aubrey Middleton 08/12/2024 5:30 PM Dictation workstation: [id number] [facility] CT ABDOMEN PELVIS WO IV CONTRAST Interpreted By: Bari Campa, STUDY: CT ABDOMEN PELVIS WO IV CONTRAST; 08/12/2024 12:47 pm INDICATION: Signs/Symptoms:abdominal pain, vomiting. COMPARISON: None ACCESSION NUMBER(S): [id number] ORDERING CLINICIAN: JESUSITA SIM TECHNIQUE: CT of the abdomen and pelvis was performed. Contiguous axial images were obtained at 3 mm slice thickness through the abdomen and pelvis. Coronal and sagittal reconstructions at 3 mm slice thickness were performed. No intravenous or oral contrast agents were administered. FINDINGS: Please note that the evaluation of vessels, lymph nodes and organs is limited without intravenous contrast. LOWER CHEST: Small hiatus hernia otherwise unremarkable ABDOMEN: LIVER: Within normal limits. BILE DUCTS: Normal caliber. GALLBLADDER: No calcified stones. No wall thickening. PANCREAS: Some parenchymal atrophy and fat replacement otherwise unremarkable SPLEEN: Within normal limits. ADRENAL GLANDS: Bilateral adrenal glands appear normal. KIDNEYS AND URETERS: The kidneys are normal in size and unremarkable in appearance. No hydroureteronephrosis or nephroureterolithiasis is identified. PELVIS: BLADDER: Not well distended REPRODUCTIVE ORGANS: Surgically absent BOWEL: Small hiatus hernia otherwise unremarkable stomach. Proximal small bowel loops are normal in caliber. There is mild dilation of mid small bowel loops a moderate dilation of the distal ileum. Within the distal ileum, there is fecalization of some of the distal ileal contents. There is a short segment ileocolic intussusception possibly due to a lipoma or lipomatosis infiltration of the ileocecal valve. This may intermittently resultant short-segment intussusception cyst explaining the distal ileal contents. The appendix appears normal. VESSELS: There is no aneurysmal dilatation of the abdominal aorta. The IVC appears normal. PERITONEUM/RETROPERITONEU M/LYMPH NODES: There is a small amount of peritoneal fluid in the perihepatic peritoneum. Of note, no other peritoneal fluid is seen. No abdominopelvic lymphadenopathy is present. ABDOMINAL WALL: Hazy infiltration noted along both flanks in the subcutaneous fat. There is a moderate fat containing right inguinal hernia. Previous left inguinal hernia repair. Abdominal wall structures appear otherwise intact. BONES: There are significant degenerative findings in the lumbar spine. However there is more geographic sclerosis seen in the L2 vertebral body as well as the T10 and T8 vertebral bodies. Blastic metastases are consideration. Several smaller sclerotic foci are noted in the sacrum. The foci are noted in the proximal left femur as well as the right iliac bone. Blastic metastases are consideration. IMPRESSION: 1. Possible intermittent short-segment ileocolic intussusception resulting in some stasis veins and fecalization of distal ileal contents and moderate dilation of the distal ileal bowel loops. Of note, proximal bowel loops are normal in caliber the stomach is not distended. 2. Multifocal sclerotic lesions in several of the bony structures as detailed above. Blastic metastatic lesions are consideration. 3. There is a small amount of perihepatic peritoneal fluid. 4. There is a moderate size hiatus hernia. 5. There is a small fat containing right inguinal hernia. 6. Possible areas of ecchymosis along the flanks bilaterally posterolateral and superior to the superior aspect of the gluteus musculature. MACRO: None Signed by: Bari Campa 08/12/2024 1:27 PM Dictation workstation: [id number] [facility] CT Abdomen WO contraston 1. Similar appearanc e of the fatty density and question of ileocolic intussusception. There may be a lipoma in this region acting as a lead point. There is progressed small-bowel dilatation and new ascites, concerning for progressive obstruction. Recommend surgical consultation. MACRO: None Signed by: Aubrey Middleton 08/12/2024 5:30 PM Dictation workstation: [id number] [facility]AL Interpreted By: Aubrey Cannon, STUDY: CT ABDOMEN PELVIS WO IV CONTRAST; 08/12/2024 5:11 pm INDICATION: Signs/Symptoms:Concern for intussusception. COMPARISON: Same day ACCESSION NUMBER(S): [id number] ORDERING CLINICIAN: JESUSITA SIM TECHNIQUE: CT of the abdomen and pelvis was performed without IV contrast.. Contiguous axial images were obtained at 3 mm slice thickness through the abdomen and pelvis. Coronal and sagittal reconstructions at 3 mm slice thickness were performed. No intravenous contrast was administered; positive oral contrast was given. FINDINGS: Please note that the evaluation of vessels, lymph nodes and organs is limited without intravenous contrast. LOWER CHEST: The visualized lung base is unremarkable. The heart is normal in size without evidence of pericardial effusion. No pleural effusion is present. Visualized distal esophagus appears normal. ABDOMEN: LIVER: The liver is normal in size without evidence of focal liver lesions. BILE DUCTS: The intrahepatic and extrahepatic ducts are not dilated. GALLBLADDER: The gallbladder is present. PANCREAS: The pancreas appears unremarkable without evidence of ductal dilatation or masses. SPLEEN: The spleen is normal in size. ADRENAL GLANDS: Bilateral adrenal glands appear normal. KIDNEYS AND URETERS: The kidneys are normal in size and unremarkable in appearance. No hydroureteronephrosis or nephroureterolithiasis is identified. PELVIS: BLADDER: The urinary bladder appears normal without abnormal wall thickening. REPRODUCTIVE ORGANS: Hysterectomy. 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 This fatty density (2/83, 81) may also reflect the ileocecal valve. Small bowel loops in the right lower quadrant are now more distended and there is new ascites. Diverticulosis. Evidence of prior left inguinal hernia/left ventral wall hernia repair. VESSELS: There is no aneurysmal dilatation of the abdominal aorta. The IVC appears normal. PERITONEUM/RETROPERITONEU M/LYMPH NODES: There is no free or loculated fluid collection, no free intraperitoneal air. The retroperitoneum appears normal. New small volume ascites. ABDOMINAL WALL: The abdominal wall soft tissues appear normal. Small fat containing right inguinal hernia. Induration of the gluteal soft tissues re-identified. Similar to earlier in the day BONES: Multifocal sclerotic lesions throughout the visualized spine. Posterior osteophyte formation at L3 causing moderate spinal canal stenosis. MMAubrey Robles DO - 08/12/2024 Interpreted By: Aubrey Middleton, STUDY: CT ABDOMEN PELVIS WO IV CONTRAST; 08/12/2024 5:11 pm INDICATION: Signs/Symptoms:Concern for intussusception. COMPARISON: Same day ACCESSION NUMBER(S): [id number] ORDERING CLINICIAN: JESUSITA SIM TECHNIQUE: CT of the abdomen and pelvis was performed without IV contrast.. Contiguous axial images were obtained at 3 mm slice thickness through the abdomen and pelvis. Coronal and sagittal reconstructions at 3 mm slice thickness were performed. No intravenous contrast was administered; positive oral contrast was given. FINDINGS: Please note that the evaluation of vessels, lymph nodes and organs is limited without intravenous contrast. LOWER CHEST: The visualized lung base is unremarkable. The heart is normal in size without evidence of pericardial effusion. No pleural effusion is present. Visualized distal esophagus appears normal. ABDOMEN: LIVER: The liver is normal in size without evidence of focal liver lesions. BILE DUCTS: The intrahepatic and extrahepatic ducts are not dilated. GALLBLADDER: The gallbladder is present. PANCREAS: The pancreas appears unremarkable without evidence of ductal dilatation or masses. SPLEEN: The spleen is normal in size. ADRENAL GLANDS: Bilateral adrenal glands appear normal. KIDNEYS AND URETERS: The kidneys are normal in size and unremarkable in appearance. No hydroureteronephrosis or nephroureterolithiasis is identified. PELVIS: BLADDER: The urinary bladder appears normal without abnormal wall thickening. REPRODUCTIVE ORGANS: Hysterectomy. 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 This fatty density (2/83, 81) may also reflect the ileocecal valve. Small bowel loops in the right lower quadrant are now more distended and there is new ascites. Diverticulosis. Evidence of prior left inguinal hernia/left ventral wall hernia repair. VESSELS: There is no aneurysmal dilatation of the abdominal aorta. The IVC appears normal. PERITONEUM/RETROPERITONEU M/LYMPH NODES: There is no free or loculated fluid collection, no free intraperitoneal air. The retroperitoneum appears normal. New small volume ascites. ABDOMINAL WALL: The abdominal wall soft tissues appear normal. Small fat containing right inguinal hernia. Induration of the gluteal soft tissues re-identified. Similar to earlier in the day BONES: Multifocal sclerotic lesions throughout the visualized spine. Posterior osteophyte formation at L3 causing moderate spinal canal stenosis. IMPRESSION: 1. Similar appearance of the fatty density and question of ileocolic intussusception. There may be a lipoma in this region acting as a lead point. There is progressed small-bowel dilatation and new ascites, concerning for progressive obstruction. Recommend surgical consultation. MACRO: None Signed by: Aubrey Colonsdon 08/12/2024 5:30 PM Dictation workstation: [id number] [facility] Work Phone: Radiology Study observation (narrative) [facility] Work Phone: 1. Possible intermit tent short-segment ileocolic intussusception resulting in some stasis veins and fecalization of distal ileal contents and moderate dilation of the distal ileal bowel loops. Of note, proximal bowel loops are normal in caliber the stomach is not distended. 2. Multifocal sclerotic lesions in several of the bony structures as detailed above. Blastic metastatic lesions are consideration. 3. There is a small amount of perihepatic peritoneal fluid. 4. There is a moderate size hiatus hernia. 5. There is a small fat containing right inguinal hernia. 6. Possible areas of ecchymosis along the flanks bilaterally posterolateral and superior to the superior aspect of the gluteus musculature. MACRO: None Signed by: Bari Campa 08/12/2024 1:27 PM Dictation workstation: [id number] [facility] Interpreted By: Bari Campa, STUDY: CT ABDOMEN PELVIS WO IV CONTRAST; 08/12/2024 12:47 pm INDICATION: Signs/Symptoms:abdominal pain, vomiting. COMPARISON: None ACCESSION NUMBER(S): [id number] ORDERING CLINICIAN: JESUSITA SIM TECHNIQUE: CT of the abdomen and pelvis was performed. Contiguous axial images were obtained at 3 mm slice thickness through the abdomen and pelvis. Coronal and sagittal reconstructions at 3 mm slice thickness were performed. No intravenous or oral contrast agents were administered. FINDINGS: Please note that the evaluation of vessels, lymph nodes and organs is limited without intravenous contrast. LOWER CHEST: Small hiatus hernia otherwise unremarkable ABDOMEN: LIVER: Within normal limits. BILE DUCTS: Normal caliber. GALLBLADDER: No calcified stones. No wall thickening. PANCREAS: Some parenchymal atrophy and fat replacement otherwise unremarkable SPLEEN: Within normal limits. ADRENAL GLANDS: Bilateral adrenal glands appear normal. KIDNEYS AND URETERS: The kidneys are normal in size and unremarkable in appearance. No hydroureteronephrosis or nephroureterolithiasis is identified. PELVIS: BLADDER: Not well distended REPRODUCTIVE ORGANS: Surgically absent BOWEL: Small hiatus hernia otherwise unremarkable stomach. Proximal small bowel loops are normal in caliber. There is mild dilation of mid small bowel loops a moderate dilation of the distal ileum. Within the distal ileum, there is fecalization of some of the distal ileal contents. There is a short segment ileocolic intussusception possibly due to a lipoma or lipomatosis infiltration of the ileocecal valve. This may intermittently resultant short-segment intussusception cyst explaining the distal ileal contents. The appendix appears normal. VESSELS: There is no aneurysmal dilatation of the abdominal aorta. The IVC appears normal. PERITONEUM/RETROPERITONEU M/LYMPH NODES: There is a small amount of peritoneal fluid in the perihepatic peritoneum. Of note, no other peritoneal fluid is seen. No abdominopelvic lymphadenopathy is present. ABDOMINAL WALL: Hazy infiltration noted along both flanks in the subcutaneous fat. There is a moderate fat containing right inguinal hernia. Previous left inguinal hernia repair. Abdominal wall structures appear otherwise intact. BONES: There are significant degenerative findings in the lumbar spine. However there is more geographic sclerosis seen in the L2 vertebral body as well as the T10 and T8 vertebral bodies. Blastic metastases are consideration. Several smaller sclerotic foci are noted in the sacrum. The foci are noted in the proximal left femur as well as the right iliac bone. Blastic metastases are consideration. [facility] Bari Campa MD - 08/12/2024 Interpreted By: Bari Campa, STUDY: CT ABDOMEN PELVIS WO IV CONTRAST; 08/12/2024 12:47 pm INDICATION: Signs/Symptoms:abdominal pain, vomiting. COMPARISON: None ACCESSION NUMBER(S): [id number] ORDERING CLINICIAN: JESUSITA SIM TECHNIQUE: CT of the abdomen and pelvis was performed. Contiguous axial images were obtained at 3 mm slice thickness through the abdomen and pelvis. Coronal and sagittal reconstructions at 3 mm slice thickness were performed. No intravenous or oral contrast agents were administered. FINDINGS: Please note that the evaluation of vessels, lymph nodes and organs is limited without intravenous contrast. LOWER CHEST: Small hiatus hernia otherwise unremarkable ABDOMEN: LIVER: Within normal limits. BILE DUCTS: Normal caliber. GALLBLADDER: No calcified stones. No wall thickening. PANCREAS: Some parenchymal atrophy and fat replacement otherwise unremarkable SPLEEN: Within normal limits. ADRENAL GLANDS: Bilateral adrenal glands appear normal. KIDNEYS AND URETERS: The kidneys are normal in size and unremarkable in appearance. No hydroureteronephrosis or nephroureterolithiasis is identified. PELVIS: BLADDER: Not well distended REPRODUCTIVE ORGANS: Surgically absent BOWEL: Small hiatus hernia otherwise unremarkable stomach. Proximal small bowel loops are normal in caliber. There is mild dilation of mid small bowel loops a moderate dilation of the distal ileum. Within the distal ileum, there is fecalization of some of the distal ileal contents. There is a short segment ileocolic intussusception possibly due to a lipoma or lipomatosis infiltration of the ileocecal valve. This may intermittently resultant short-segment intussusception cyst explaining the distal ileal contents. The appendix appears normal. VESSELS: There is no aneurysmal dilatation of the abdominal aorta. The IVC appears normal. PERITONEUM/RETROPERITONEU M/LYMPH NODES: There is a small amount of peritoneal fluid in the perihepatic peritoneum. Of note, no other peritoneal fluid is seen. No abdominopelvic lymphadenopathy is present. ABDOMINAL WALL: Hazy infiltration noted along both flanks in the subcutaneous fat. There is a moderate fat containing right inguinal hernia. Previous left inguinal hernia repair. Abdominal wall structures appear otherwise intact. BONES: There are significant degenerative findings in the lumbar spine. However there is more geographic sclerosis seen in the L2 vertebral body as well as the T10 and T8 vertebral bodies. Blastic metastases are consideration. Several smaller sclerotic foci are noted in the sacrum. The foci are noted in the proximal left femur as well as the right iliac bone. Blastic metastases are consideration. IMPRESSION: 1. Possible intermittent short-segment ileocolic intussusception resulting in some stasis veins and fecalization of distal ileal contents and moderate dilation of the distal ileal bowel loops. Of note, proximal bowel loops are normal in caliber the stomach is not distended. 2. Multifocal sclerotic lesions in several of the bony structures as detailed above. Blastic metastatic lesions are consideration. 3. There is a small amount of perihepatic peritoneal fluid. 4. There is a moderate size hiatus hernia. 5. There is a small fat containing right inguinal hernia. 6. Possible areas of ecchymosis along the flanks bilaterally posterolateral and superior to the superior aspect of the gluteus musculature. MACRO: None Signed by: Bari Campa 08/12/2024 1:27 PM Dictation workstation: [id number] [facility] Work Phone: Radiology Study observation (narrative) [facility] Work Phone: CT Abdomen WO contrastOrdere d By: Aubrey Middleton on 08-12-2024 [facility] Work Phone: CT Abdomen WO contrastOrdere d By: Bari Campa on 08-12-2024 [facility] Work Phone: Critical Careon 08-12-2024 Kashif Zimmer DO 08/14/2024 7:21 AM Critical Care Performed by: Jesusita Sim PA-C Authorized by: Jesusita Sim PA-C Critical care provider statement: Critical care was necessary to treat or prevent imminent or life-threatening deterioration of the following conditions: Intussception. Critical care was time spent personally by me on the following activities: Ordering and performing treatments and interventions, ordering and review of laboratory studies, ordering and review of radiographic studies, re-evaluation of patient's condition, examination of patient, evaluation of patient's response to treatment and discussions with consultants Care discussed with: admitting provider [facility] Work Phone: Critical CareOrdered By: Enrique Zimmer on 08-12-2024 [facility] Work Phone: ECG 12-LEADon 08-12-2024 ECG 12-LEAD Ventricular Rate 67 Atrial Rate 67 P-R Interval 214 QRS Duration 94 Q-T Interval 384 QTC Calculation(Bazett) 405 P Burnside 61 R Burnside 18 T Burnside 24 QRS Count 12 Q Onset 217 P Onset 110 P Offset 166 T Offset 409 QTC Fredericia 398 Diagnosis Sinus rhythm with 1st degree AV block Otherwise normal ECG When compared with ECG of 09-OCT-2022 15:45, No significant change was found See ED provider note for full interpretation and clinical correlation Confirmed by Jesusita Garcia ([id number]) on 08/13/2024 3:33:08 PM Normal [facility] Hepatic function 2000 panelo n 08-12-2024 Albumin BCP dye [Mass/Vol] 4 g/dL 3.4 - 5.0 g/dL [facility] ALP [Catalytic activity/Vol] 59 U/L 33 - 136 U/L [facility] ALT With P-5'-P [Catalytic activity/Vol] 9 U/L 7 - 45 U/L [facility] Comment on above: Patients treated wit h Sulfasalazine may generate falsely decreased results for ALT. AST With P-5'-P [Catalytic activity/Vol] 17 U/L 9 - 39 U/L [facility] Bilirubin [Mass/Vol] 0.7 mg/dL 0.0 - 1 .2 mg/dL [facility] Bilirubin.direct [Mass/Vol] 0.1 mg/dL 0.0 - 0.3 mg/dL [facility] Protein [Mass/Vol] 6.7 g/dL 6.4 - 8.2 g/dL [facility] Albumin BCP dye [Mass/Vol] 4.0 g/dL Normal 3.4-5.0 [facility] Comment on above: Performed By: #### 2 4325-3 #### FELICITAS PICKETT ([id number]) [facility] ([facility]) [address] [place] [address] ALP [Catalytic activity/Vol] 59 U/L Normal 33-136 [facility] Comment on above: Performed By: #### 2 4325-3 #### FELICITAS PICKETT ([id number]) [facility] ([facility]) [address] [place] [id number] ALT With P-5'-P [Catalytic activity/Vol] 9 U/L Normal 7-45 [facility] Comment on above: Result Comment: Zulma ents treated with Sulfasalazine may generate falsely decreased results for ALT. Performed By: #### 2 4325-3 #### FELICITAS PICKETT ([id number]) [facility] ([facility]) [address] [place] [phone] AST With P-5'-P [Catalytic activity/Vol] 17 U/L Normal 9-39 [facility] Comment on above: Performed By: #### 2 4325-3 #### FELICITAS PICKETT ([id number]) [facility] ([facility]) [address] [place] [phone] Bilirubin [Mass/Vol] 0.7 mg/dL Normal 0.0-1.2 [facility] Comment on above: Performed By: #### 2 4325-3 #### FELICITAS PICKETT ([id number]) [facility] ([facility]) [address] [place] [address] Bilirubin.direct [Mass/Vol] 0.1 mg/dL Normal 0.0-0.3 [facility] Comment on above: Performed By: #### 2 4325-3 #### FELICITAS PICKETT ([id number]) [facility] ([facility]) [address] [place] [address] Protein [Mass/Vol] 6.7 g/dL Normal 6.4-8.2 [facility] Comment on above: Performed By: #### 2 4325-3 #### FELICITAS PICKETT ([id number]) [facility] ([facility]) [address] [place], [place] [id number] Lactateon 08-12-2024 Lactate [Moles/Vol] 0.5 mmol/L 0.4 - 2. 0 mmol/L [facility] Lactate [Moles/Vol] 0.5 mmol/L Normal 0.4-2.0 [facility] Comment on above: Order Comment: Venip uncture immediately after or during the administration of Metamizole may lead to falsely low results. Testing should be performed immediately prior to Metamizole dosing. Performed By: #### 2 4321-2 #### FELICITAS PICKETT ([id number]) [facility] ([facility]) [address] [place] [phone] Lactate [Moles/Vol] 0.9 mmol/L 0.4 - 2. 0 mmol/L [facility] Lactate [Moles/Vol] 0.9 mmol/L Normal 0.4-2.0 [facility] Comment on above: Order Comment: Venip uncture immediately after or during the administration of Metamizole may lead to falsely low results. Testing should be performed immediately prior to Metamizole dosing. Performed By: #### 2 524-7 #### FELICITAS PICKETT ([id number]) [facility] ([facility]) [address] [place] [address] Lactate [Moles/Vol]on 2024 Interpretation and review of laboratory results Normal [facility] Venipuncture immedia tely after or during the administration of Metamizole may lead to falsely low results. Testing should be performed immediately prior to Metamizole dosing. [facility] Lipaseon 08-12-2024 Lipase [Catalytic activity/Vol] 17 U/L 9 - 82 U/L [facility] Magnesiumon 08-12-2024 Magnesium [Mass/Vol] 1.83 mg/dL 1.60 - 2.40 mg/dL [facility] Magnesium [Mass/Vol] 1.83 mg/dL Normal 1.60-2.40 [facility] Comment on above: Performed By: #### 2 4321-2 #### FELICITAS PICKETT ([id number]) [facility] ([facility]) [address] [place] [address] No Panel Informationon 08-12 Interpretation and review of laboratory results Normal [facility] Interpretation and review of laboratory results Abnormal [facility] Interpretation and review of laboratory results Normal [facility] Venipuncture immedia tely after or during the administration of Metamizole may lead to falsely low results. Testing should be performed immediately prior to Metamizole dosing. [facility] Triacylglycerol lipaseon Lipase [Catalytic activity/Vol] 17 U/L Normal -82 [facility] Comment on above: Order Comment: Venip uncture immediately after or during the administration of Metamizole may lead to falsely low results. Testing should be performed immediately prior to Metamizole dosing. Performed By: #### 3 040-3 #### FELICITAS DORSEYHRLI ([id number]) [facility] ([facility]) [address] [place] [address] Tropinin I.cardiac panel Hig h sensitivity methodon 08-12-2024 Interpretation and review of laboratory results Normal [facility] Less than 99th perce ntile of normal range cutoff- Female and children under 18 years old <14 ng/L; Male <21 ng/L: Negative Repeat testing should be performed if clinically indicated. Female and children under 18 years old 14-50 ng/L; Male 21-50 ng/L: Consistent with possible cardiac damage and possible increased clinical risk. Serial measurements may help to assess extent of myocardial damage. >50 ng/L: Consistent with cardiac damage, increased clinical risk and myocardial infarction. Serial measurements may help assess extent of myocardial damage. NOTE: Children less than 1 year old may have higher baseline troponin levels and results should be interpreted in conjunction with the overall clinical context. NOTE: Troponin I testing is performed using a different testing methodology at [facility] than at other [facility]. Direct result comparisons should only be made within the same method. [facility] Troponin I, High Sensitivity on 08-12-2024 Tropinin I.cardiac panel High sensitivity method 7 ng/L 0 - 13 ng/L [facility] Troponin I.cardiac panelon 0 08-12-2024 Tropinin I.cardiac panel High sensitivity method 7 ng/L Normal 0-13 [facility] Comment on above: Order Comment: Less than 99th percentile of normal range cutoff- Female and children under 18 years old <14 ng/L; Male <21 ng/L: Negative Repeat testing should be performed if clinically indicated. Female and children under 18 years old 14-50 ng/L; Male 21-50 ng/L: Consistent with possible cardiac damage and possible increased clinical risk. Serial measurements may help to assess extent of myocardial damage. >50 ng/L: Consistent with cardiac damage, increased clinical risk and myocardial infarction. Serial measurements may help assess extent of myocardial damage. NOTE: Children less than 1 year old may have higher baseline troponin levels and results should be interpreted in conjunction with the overall clinical context. NOTE: Troponin I testing is performed using a different testing methodology at [facility] than at other [facility]. Direct result comparisons should only be made within the same method. Performed By: #### 8 9577-1 #### FELICITAS PICKETT ([id number]) [facility] ([facility]) [facility] [place] [address] Urinalysis complete W Reflex Culture panel (U)on 08-12-2024 Appearance (U) Clear Clear [facility] Bilirubin (U) [Mass/Vol] Negative NEGATIVE mg/dL [facility] Color (U) Light-Yellow Light-[place] ow, Yellow, Dark-Yello w [facility] Glucose Auto test strip (U) [Mass/Vol] Normal Normal mg/dL [facility] Ketones (U) [Mass/Vol] TRACE Abnormal NEGATIVE mg/dL [facility] Leukocyte esterase Auto test strip Ql (U) 250 Fadumo/uL Abnormal NEGATIVE [facility] Nitrite Auto test strip Ql (U) Negative NEGATIVE [facility] pH (U) 6.5 [pH] 5.0, 5.5, 6.0, 6.5, 7.0, 7.5, 8.0 [facility] Protein (U) [Mass/Vol] Negative NEGATIVE, 10 (TRACE), 20 (TRACE) mg/dL [facility] RBC (U) [#/Vol] Negative NEGATIVE mg/dL [facility] Specific gravity (U) [Rel density] 1.013 1.005 - 1.035 [facility] Urobilinogen (U) [Mass/Vol] Normal Normal mg/dL [facility] Appearance (U) Clear Normal Clear [facility] Comment on above: Performed By: #### 5 8077-9 #### FELICITAS PICKETT ([id number]) [facility] ([facility]) [facility] [place] [id number] Bilirubin (U) [Mass/Vol] Negative Normal NEGATIVE [facility] Comment on above: Performed By: #### 5 8077-9 #### FELICITAS PICKETT ([id number]) [facility] ([facility]) [address] [place] [phone] Color (U) Light-Yellow Normal Light-[place] ow, Yellow, Dark-Yello w [facility] Comment on above: Performed By: #### 5 8077-9 #### FELICITAS PICKETT ([id number]) [facility] ([facility]) [address] [place] [address] Glucose Auto test strip (U) [Mass/Vol] Normal Normal Normal [facility] Comment on above: Performed By: #### 5 8077-9 #### FELICITAS PICKETT ([id number]) [facility] ([facility]) [address] [place] [phone] Ketones (U) [Mass/Vol] TRACE Abnormal NEGATIVE [facility] Comment on above: Performed By: #### 5 8077-9 #### FELICITAS PICKETT ([id number]) [facility] ([facility]) [address] [place] [address] Leukocyte esterase Auto test strip Ql (U) 250 Fadumo/uL Abnormal NEGATIVE [facility] Comment on above: Performed By: #### 5 8077-9 #### FELICITAS PICKETT ([id number]) [facility] ([facility]) [address] [place] [address] Nitrite Auto test strip Ql (U) Negative Normal NEGATIVE [facility] Comment on above: Performed By: #### 5 8077-9 #### FELICITAS PICKETT ([id number]) [facility] ([facility]) [address] [place] [address] pH (U) 6.5 [pH] Normal 5.0, 5.5, 6.0, 6.5, 7.0, 7.5, 8.0 [facility] Comment on above: Performed By: #### 5 8077-9 #### FELICITAS PICKETT ([id number]) [facility] ([facility]) [address] [place] [phone] Protein (U) [Mass/Vol] Negative Normal NEGATIVE, 10 (TRACE), 20 (TRACE) [facility] Comment on above: Performed By: #### 5 8077-9 #### FELICITAS PICKETT ([id number]) [facility] ([facility]) [address] [place] [address]952 RBC (U) [#/Vol] Negative Normal NEGATIVE [facility] Comment on above: Performed By: #### 5 8077-9 #### FELICITAS PICKETT ([id number]) [facility] ([facility]) [address] [place] [address] Specific gravity (U) [Rel density] 1.013 Normal 1.005-1.[address] [place] [address] Comment on above: Performed By: #### 5 8077-9 #### FELICITAS PICKETT ([id number]) [facility] ([facility]) [address] [place] [address] Urobilinogen (U) [Mass/Vol] Normal Normal Normal [facility] Comment on above: Performed By: #### 5 8077-9 #### FELICITAS PIKCETT ([id number]) [facility] ([facility]) [address] [place] [address] Urinalysis microscopic panel Auto Ql (U)on 08-12-2024 Crystals.amorphous Computer assisted (U) [#/Area] 1+ NONE, 1+, 2+ /HPF [facility] Mucus Auto (Urine sed) [#/Area] FEW Reference range not establishe d. /LPF [facility] RBC Auto (Urine sed) [#/Area] 1-2 NONE, 1-2, 3-5 /HPF [facility] WBC Auto (Urine sed) [#/Area] 11-20 Abnormal 1-5, NONE /HPF [facility] Crystals.amorphous Computer assisted (U) [#/Area] 1+ /HPF Normal NONE, 1+, 2+ [facility] Comment on above: Performed By: #### 5 3315-8 #### FELICITAS PICKETT ([id number]) [facility] ([facility]) [address] [place] [address] Mucus Auto (Urine sed) [#/Area] FEW Normal Reference range not establishe d. [facility] Comment on above: Performed By: #### 5 3315-8 #### FELICITAS PICKETT ([id number]) [facility] ([facility]) [address] [place] [address] RBC Auto (Urine sed) [#/Area] 1-2 Normal NONE, 1-2, 3-5 [facility] Comment on above: Performed By: #### 5 3315-8 #### FELICITAS PICKETT ([id number]) [facility] ([facility]) [address] [place] [address] WBC Auto (Urine sed) [#/Area] 11-20 Abnormal 1-5, NONE [facility] Comment on above: Performed By: #### 5 3315-8 #### FELICITAS PICKETT ([id number]) [facility] ([facility]) [address] [place] [address] XR ABDOMEN 1 VIEWon 08-13-19 XR ABDOMEN 1 VIEW Interpreted By: Aubrey Cannon, STUDY: XR ABDOMEN 1 VIEW; 08/12/2024 8:55 pm INDICATION: Signs/Symptoms:per surgeon's request, to see if contrast has progressed since previous xray. COMPARISON: Multiple study same day ACCESSION NUMBER(S): [id number] ORDERING CLINICIAN: JESUSITA SIM FINDINGS: Enteric tube projects in the gastric fundus. Persistently dilated loops of small bowel up to 3.9 cm, with some minimally increased number of dilated loops. Question some oral contrast in the colon, however the contrast is very dilute and difficult to definitively evaluate. Limited evaluation of pneumoperitoneum on supine imaging, however no gross evidence of free air is noted. Visualized lungs are clear. Osseous structures demonstrate no acute bony changes. IMPRESSION: 1. Persistently dilated small bowel loops with minimal interval increase concerning for obstruction. Question some enteric contrast in the distal transverse colon, however evaluation is limited as the contrast is very dilute. Consider CT of the abdomen and pelvis follow-up. MACRO: None Signed by: Aubrey Middleton 08/12/2024 9:07 PM Dictation workstation: [id number] Normal [facility] XR ABDOMEN 1 VIEW Interpreted By: Aubrey Cannon, STUDY: XR ABDOMEN 1 VIEW; 08/12/2024 6:20 pm INDICATION: Signs/Symptoms:recent oral contrast-evaluation of contrast. COMPARISON: Same day CT abdomen and pelvis. ACCESSION NUMBER(S): [id number] ORDERING CLINICIAN: JESUSITA SIM FINDINGS: Dilated loops of small bowel now measuring up to 3.9 cm again appearing progressed concerning for obstruction. Orally administered contrast limited evaluation of pneumoperitoneum on supine imaging, however no gross evidence of free air is noted. Visualized lungs are clear. Osseous structures demonstrate no acute bony changes. IMPRESSION: 1. Orally administered contrast is very dilute and limits evaluation. Not definitively seen within the colon. There is again noted increasing distention of loops of small bowel now measuring up to 3.9 cm concerning for obstruction. MACRO: None Signed by: Aubrey Middleton 08/12/2024 6:30 PM Dictation workstation: [id number] [facility] XR Abdomen Single viewon 1. Persistently dila susan small bowel loops with minimal interval increase concerning for obstruction. Question some enteric contrast in the distal transverse colon, however evaluation is limited as the contrast is very dilute. Consider CT of the abdomen and pelvis follow-up. MACRO: None Signed by: Aubrey Middleton 08/12/2024 9:07 PM Dictation workstation: [id number] MMODAL Interpreted By: Aubrey Cannon, STUDY: XR ABDOMEN 1 VIEW; 08/12/2024 8:55 pm INDICATION: Signs/Symptoms:per surgeon's request, to see if contrast has progressed since previous xray. COMPARISON: Multiple study same day ACCESSION NUMBER(S): [id number] ORDERING CLINICIAN: JESUSITA SIM FINDINGS: Enteric tube projects in the gastric fundus. Persistently dilated loops of small bowel up to 3.9 cm, with some minimally increased number of dilated loops. Question some oral contrast in the colon, however the contrast is very dilute and difficult to definitively evaluate. Limited evaluation of pneumoperitoneum on supine imaging, however no gross evidence of free air is noted. Visualized lungs are clear. Osseous structures demonstrate no acute bony changes. [facility] Aubrey Middleton DO - 08/12/2024 Interpreted By: Aubrey Middleton, STUDY: XR ABDOMEN 1 VIEW; 08/12/2024 8:55 pm INDICATION: Signs/Symptoms:per surgeon's request, to see if contrast has progressed since previous xray. COMPARISON: Multiple study same day ACCESSION NUMBER(S): [id number] ORDERING CLINICIAN: JESUSITA SIM FINDINGS: Enteric tube projects in the gastric fundus. Persistently dilated loops of small bowel up to 3.9 cm, with some minimally increased number of dilated loops. Question some oral contrast in the colon, however the contrast is very dilute and difficult to definitively evaluate. Limited evaluation of pneumoperitoneum on supine imaging, however no gross evidence of free air is noted. Visualized lungs are clear. Osseous structures demonstrate no acute bony changes. IMPRESSION: 1. Persistently dilated small bowel loops with minimal interval increase concerning for obstruction. Question some enteric contrast in the distal transverse colon, however evaluation is limited as the contrast is very dilute. Consider CT of the abdomen and pelvis follow-up. MACRO: None Signed by: Aubrey Middleton 08/12/2024 9:07 PM Dictation workstation: [id number] [facility] Work Phone: [facility] Work Phone: Radiology Study observation (narrative) [facility] Work Phone: Interpreted By: Aubrey Cannon, STUDY: XR ABDOMEN 1 VIEW; 08/12/2024 6:20 pm INDICATION: Signs/Symptoms:recent oral contrast-evaluation of contrast. COMPARISON: Same day CT abdomen and pelvis. ACCESSION NUMBER(S): [id number] ORDERING CLINICIAN: JESUSITA SIM FINDINGS: Dilated loops of small bowel now measuring up to 3.9 cm again appearing progressed concerning for obstruction. Orally administered contrast limited evaluation of pneumoperitoneum on supine imaging, however no gross evidence of free air is noted. Visualized lungs are clear. Osseous structures demonstrate no acute bony changes. [facility] Aubrey Middleton , DO - 08/12/2024 Interpreted By: Aubrey Middleton, STUDY: XR ABDOMEN 1 VIEW; 08/12/2024 6:20 pm INDICATION: Signs/Symptoms:recent oral contrast-evaluation of contrast. COMPARISON: Same day CT abdomen and pelvis. ACCESSION NUMBER(S): [id number] ORDERING CLINICIAN: JESUSITA SIM FINDINGS: Dilated loops of small bowel now measuring up to 3.9 cm again appearing progressed concerning for obstruction. Orally administered contrast limited evaluation of pneumoperitoneum on supine imaging, however no gross evidence of free air is noted. Visualized lungs are clear. Osseous structures demonstrate no acute bony changes. IMPRESSION: 1. Orally administered contrast is very dilute and limits evaluation. Not definitively seen within the colon. There is again noted increasing distention of loops of small bowel now measuring up to 3.9 cm concerning for obstruction. MACRO: None Signed by: Aubrey Middleton 08/12/2024 6:30 PM Dictation workstation: [id number] [facility] Work Phone: [facility] Work Phone: Radiology Study observation (narrative) [facility] Work Phone: XR CHEST ABDOMEN FOR OG NG P LACEMENTon 08-12-2024 XR CHEST ABDOMEN FOR OG NG PLACEMENT Interpreted By: Aubrey Middleton, STUDY: XR CHEST ABDOMEN FOR OG NG PLACEMENT; ; 08/12/2024 7:05 pm INDICATION: Signs/Symptoms:NG tube placement confirmation. COMPARISON: Same day KUB ACCESSION NUMBER(S): [id number] ORDERING CLINICIAN: JESUSITA SIM FINDINGS: Enteric tube projects in the gastric fundus. Partially visualized bowel gas with multiple dilated loops of small bowel. No free air on limited exam. IMPRESSION: Enteric tube projects in the gastric fundus. MACRO: None Signed by: Aubrey Middleton 08/12/2024 7:32 PM Dictation workstation: [id number] [facility] XR Chest and Abdomen Viewson 08-12-2024 Enteric tube project s in the gastric fundus. MACRO: None Signed by: Aubrey Middleton 08/12/2024 7:32 PM Dictation workstation: [id number] [facility] Interpreted By: Aubrey Cannon, STUDY: XR CHEST ABDOMEN FOR OG NG PLACEMENT; ; 08/12/2024 7:05 pm INDICATION: Signs/Symptoms:NG tube placement confirmation. COMPARISON: Same day KUB ACCESSION NUMBER(S): [id number] ORDERING CLINICIAN: JESUSITA SIM FINDINGS: Enteric tube projects in the gastric fundus. Partially visualized bowel gas with multiple dilated loops of small bowel. No free air on limited exam. [facility] Aubrey Middleton DO - 08/12/2024 Interpreted By: Aubrey Middleton, STUDY: XR CHEST ABDOMEN FOR OG NG PLACEMENT; ; 08/12/2024 7:05 pm INDICATION: Signs/Symptoms:NG tube placement confirmation. COMPARISON: Same day KUB ACCESSION NUMBER(S): [id number] ORDERING CLINICIAN: JESUSITA SIM FINDINGS: Enteric tube projects in the gastric fundus. Partially visualized bowel gas with multiple dilated loops of small bowel. No free air on limited exam. IMPRESSION: Enteric tube projects in the gastric fundus. MACRO: None Signed by: Aubrey Middleton 08/12/2024 7:32 PM Dictation workstation: [id number] [facility] Work Phone: [facility] Work Phone: Radiology Study observation (narrative) [facility] Work Phone: CBC W Auto Differential pane l (Bld)on 08-10-2024 Anisocytosis Ql (Bld) Present Normal [facility] Comment on above: Order Comment: Speci men Type: BLOOD SPECIMENOrdering Facility: [facility] Address: [address] [place] [address] Performed By: #### 5 7021-8 ####[facility] [id number] [address] LABCLIA [id number] [place] [address] [place] Basophils (Bld) [#/Vol] 0.04 10*3/uL Normal <0.11 [facility] Comment on above: Order Comment: Speci men Type: BLOOD SPECIMENOrdering Facility: [facility] Address: [address] [place] [address] Performed By: #### 5 7021-8 ####[facility] [id number] [address] LABCLIA [id number] [place] [address] [place] Basophils/100 WBC (Bld) 2.0 % Normal [facility] Comment on above: Order Comment: Speci men Type: BLOOD SPECIMENOrdering Facility: [facility] Address: [address] [place] [address] Performed By: #### 5 7021-8 ####[facility] MILLWNCLIA [id number] [address] LABCLIA [id number] [place] [address] [place] Dacrocytes LM Ql (Bld) Few Normal [facility] Comment on above: Order Comment: Speci men Type: BLOOD SPECIMENOrdering Facility: [facility] Address: [address] [place] [address] Performed By: #### 5 7021-8 ####[facility] [id number] [address] LABCLIA [id number] [place] [address] [place] Differential cell count method Nom (Bld) Manual Normal [facility] Comment on above: Order Comment: Speci men Type: BLOOD SPECIMENOrdering Facility: [facility] Address: [address] [place] [address] Performed By: #### 5 7021-8 ####[facility] [id number] [address] LABCLIA [id number] [place] [address] [place] Eosinophils (Bld) [#/Vol] 0.02 10*3/uL Normal <0.46 [facility] Comment on above: Order Comment: Speci men Type: BLOOD SPECIMENOrdering Facility: [facility] Address: [address] [place] [address] Performed By: #### 5 7021-8 ####[facility] MILLWNCLIA [id number] [address] LABCLIA [id number] [facility] [address] [place] [address] [place] Eosinophils/100 WBC (Bld) 1.0 % Normal [facility] Comment on above: Order Comment: Speci men Type: BLOOD SPECIMENOrdering Facility: [facility] Address: [address] [place] [address] Performed By: #### 5 7021-8 ####[facility]ENTERWNCLIA [id number] [address] LABCLIA [id number] [facility] [address], [facility] [place] Erythrocyte distribution width (RBC) [Ratio] 17.0 % High 11.5-15.0 [facility] Comment on above: Order Comment: Speci men Type: BLOOD SPECIMENOrdering Facility: [facility] Address: [address] [place] [address] Performed By: #### 5 7021-8 ####[facility] CENTERWRILIA [id number] [address] LABCLIA [id number] [address] [place] [address] [place] Hematocrit (Bld) [Volume fraction] 31.0 % Low 36.0-46.0 [facility] Comment on above: Order Comment: Speci men Type: BLOOD SPECIMENOrdering Facility: [facility] Address: [address] [place], [place] [address] Performed By: #### 5 7021-8 ####[facility]ENTERWNCLIA [id number] [address] LABCLIA [id number] [facility] [address] [place] [address] [place] Hemoglobin (Bld) [Mass/Vol] 10.3 g/dL Low 11.5-15.5 [facility] Comment on above: Order Comment: Speci men Type: BLOOD SPECIMENOrdering Facility: [facility] Address: [address] [place] [address] Performed By: #### 5 7021-8 ####[facility] CENTERWNCLIA [id number] [address] LABCLIA [id number] [place] [address] [place] Lymphocytes (Bld) [#/Vol] 0.29 10*3/uL Low 1.00-4.00 [facility] Comment on above: Order Comment: Speci men Type: BLOOD SPECIMENOrdering Facility: [facility] Address: [address] [place] [address] Performed By: #### 5 7021-8 ####[facility]ALTHL[facility] [id number] [address] LABCLIA [id number] [place] [address] [place] Lymphocytes/100 WBC (Bld) 14.0 % Normal [facility] Comment on above: Order Comment: Speci men Type: BLOOD SPECIMENOrdering Facility: [facility] Address: [address] [place] [address] Performed By: #### 5 7021-8 ####[facility] PLACIDNCLIA [id number] [address] LABCLIA [id number] [place] [address] [place] MCH (RBC) [Entitic mass] 35.3 pg High 26.0-34.0 [facility] Comment on above: Order Comment: Speci men Type: BLOOD SPECIMENOrdering Facility: [facility] Address: [address] [place] [address] Performed By: #### 5 7021-8 ####[facility] MILLTOWNCLIA [id number] [address] LABCLIA [id number] [place] [address] [place] MCHC (RBC) [Mass/Vol] 33.2 g/dL Normal 30.5-36.0 [facility] Comment on above: Order Comment: Speci men Type: BLOOD SPECIMENOrdering Facility: [facility] Address: [address] [place] [address] Performed By: #### 5 7021-8 ####[facility] PLACIDNCLIA [id number] [address] LABROCK[facility] [id number] [place] [address] [place] MCV (RBC) [Entitic vol] 106.2 fL High 80.0-100.0 [facility] Comment on above: Order Comment: Speci men Type: BLOOD SPECIMENOrdering Facility: [facility] Address: [address] [place] [address] Performed By: #### 5 7021-8 ####[facility]ENTERWNCLIA [id number] [address] LABCLIA [id number] [place] [address] [place] Monocytes (Bld) [#/Vol] 0.12 10*3/uL Normal <0.87 [facility] Comment on above: Order Comment: Speci men Type: BLOOD SPECIMENOrdering Facility: [facility] Address: [address] [place] [address] Performed By: #### 5 7021-8 ####[facility] MILLTOWNCLIA [id number] [address] LABCLIA [id number] [address] [address] [place] Monocytes/100 WBC (Bld) 6.0 % Normal [facility] Comment on above: Order Comment: Speci men Type: BLOOD SPECIMENOrdering Facility: [facility] Address: [address] [place] [address] Performed By: #### 5 7021-8 ####[facility] MILLTOWNCLIA [id number] [place] [address] [place] [facility] LABCLIA [id number] [place] [address] [place] Neutrophils (Bld) [#/Vol] 1.60 10*3/uL Normal 1.45-7.50 [facility] Comment on above: Order Comment: Speci men Type: BLOOD SPECIMENOrdering Facility: [facility] Address: [address] [place] [address] Performed By: #### 5 7021-8 ####[facility] CENTERWNCLIA [id number] [address] LABCLIA [id number] [place] [address] [place] Neutrophils/100 WBC (Bld) 77.0 % Normal [facility] Comment on above: Order Comment: Speci men Type: BLOOD SPECIMENOrdering Facility: [facility] Address: [address] [place] [address] Performed By: #### 5 7021-8 ####[facility] MILLWNCLIA [id number] [place] [address] [place] [facility] LABCLIA [id number] [place] [address] [place] Nucleated RBC (Bld) [#/Vol] 10*3/uL Normal <0.01 [facility] Comment on above: Order Comment: Speci men Type: BLOOD SPECIMENOrdering Facility: [facility] Address: [address] [place] [address] Performed By: #### 5 7021-8 ####[facility] MILLTOWNCLIA [id number] [address] STATES [facility] LABCLIA [id number] [address] [place] Nucleated RBC/100 WBC (Bld) [Ratio] 0.0 /100 WBC Normal [facility] Comment on above: Order Comment: Speci men Type: BLOOD SPECIMENOrdering Facility: [facility] Address: [address] [place] [address] Performed By: #### 5 7021-8 ####[facility]ALTHLIA [id number] [address] STATES OF [facility] LABCLIA [id number] [place] [address] [place] Ovalocytes LM Ql (Bld) Few Normal [facility] Comment on above: Order Comment: Speci men Type: BLOOD SPECIMENOrdering Facility: [facility] Address: [address] [place] [address] Performed By: #### 5 7021-8 ####[facility]ENTERWNCLIA [id number] [place] [address] [place] [facility] LABCLIA [id number] [place] [address] [place] Platelet mean volume (Bld) [Entitic vol] 11.3 fL Normal 9.0-12.7 [facility] Comment on above: Order Comment: Speci men Type: BLOOD SPECIMENOrdering Facility: [facility] Address: [address] [place] [address] Performed By: #### 5 7021-8 ####[facility] MILLTOWNCLIA [id number] [place] [address] [place] [facility] LABCLIA [id number] [facility] [address] [place] [address] [place] Platelets (Bld) [#/Vol] 172 10*3/uL Normal 150-400 [facility] Comment on above: Order Comment: Speci men Type: BLOOD SPECIMENOrdering Facility: [facility] Address: [address] [place] [address] Result Comment: No c lot detected. Performed By: #### 5 7021-8 ####[facility] MILLTOWNCLIA [id number] [place] [address] [place] [facility] LABCLIA [id number] [facility] [address] [place] [address] [place] Platelets Estimate (Bld) [#/Vol] Adequate Normal [facility] Comment on above: Order Comment: Speci men Type: BLOOD SPECIMENOrdering Facility: [facility] Address: [address] [place] [address] Performed By: #### 5 7021-8 ####[facility]ENTERWNCLIA [id number] [address] STATES OF [facility] LABCLIA [id number] [facility] [address] [place] [address] [place] Polychromasia LM Ql (Bld) Slight Normal [facility] Comment on above: Order Comment: Speci men Type: BLOOD SPECIMENOrdering Facility: [facility] Address: [address] [place], [place] [address] Performed By: #### 5 7021-8 ####[facility] MILLTOWNCLIA [id number] [place] [address] [place] [facility] LABCLIA [id number] [facility] [address] [place] [address] [place] RBC (Bld) [#/Vol] 2.92 10*6/uL Low 3.90-5.20 [facility] Comment on above: Order Comment: Speci men Type: BLOOD SPECIMENOrdering Facility: [facility] Address: [address] [place] [address] Performed By: #### 5 7021-8 ####[facility] CENTERWNCLIA [id number] [address] STATES [facility] LABCLIA [id number] [address] [address] [place] RBC FRAGMENTS Few Abnormal None Seen [facility] Comment on above: Order Comment: Speci men Type: BLOOD SPECIMENOrdering Facility: [facility] Address: [address] [place] [address] Performed By: #### 5 7021-8 ####[facility] [id number] [place] [address] [place] [facility] LABCLIA [id number] [place] [address] [place] RED CELL MORPH Reviewed: see result s of individual morphologies Normal [facility] Comment on above: Order Comment: Speci men Type: BLOOD SPECIMENOrdering Facility: [facility] Address: [address] [place] [address] Performed By: #### 5 7021-8 ####[facility]ALTHL[facility] [id number] [address] STATES [facility] LABCLIA [id number] [address] [place] [address] [place] WBC (Bld) [#/Vol] 2.08 10*3/uL Low 3.70-11.00 [facility] Comment on above: Order Comment: Speci men Type: BLOOD SPECIMENOrdering Facility: [facility] Address: [address] [place] [address] Performed By: #### 5 7021-8 ####[facility] CENTERWNCLIA [id number] [place] [address] [place] [facility] LABCLIA [id number] [place] [address] [place] Cancer Ag15-3 SerPl-aCncon 0 08-10-2024 Cancer Ag 15-3 Qn 210.1 U/mL High <26.0 [facility] Comment on above: Order Comment: Speci men Type: BLOOD SPECIMENOrdering Facility: [facility] Address: [address] [place] [address] Result Comment: The CA 15-3 test methodology used is the Electrochemiluminescence Immunoassay by [employer]. Results obtained with different methods or kits cannot be used interchangeably. Performed By: #### 6 875-9 ####[facility] LABCLIA [id number] [place] [address] [place] Comprehensive metabolic 2000 panelon 08-10-2024 Albumin [Mass/Vol] 3.9 g/dL Normal 3.9-4.9 [facility] Comment on above: Order Comment: Speci men Type: BLOOD SPECIMENOrdering Facility: [facility] Address: [address] [place] [address] Performed By: #### 2 4323-8 ####[facility] PLACIDNCLIA [id number] [place] [address] [place] ALP [Catalytic activity/Vol] 66 U/L Normal 34-123 [facility] Comment on above: Order Comment: Speci men Type: BLOOD SPECIMENOrdering Facility: [facility] Address: [address] [place] [address] Performed By: #### 2 4323-8 ####[facility]IDNCLIA [id number] [place] [address] [place] ALT [Catalytic activity/Vol] 9 U/L Normal 7-38 [facility] Comment on above: Order Comment: Speci men Type: BLOOD SPECIMENOrdering Facility: [facility] Address: [address] [place] [address] Performed By: #### 2 4323-8 ####[facility] MILLTOWNCLIA [id number] [place] [address] [place] Anion gap [Moles/Vol] 11 mmol/L Normal 8-15 [facility] Comment on above: Order Comment: Speci men Type: BLOOD SPECIMENOrdering Facility: [facility] Address: [address] [place] [address] Performed By: #### 2 4323-8 ####[facility] MILLWNCLIA [id number] [place] [address] [place] AST [Catalytic activity/Vol] 17 U/L Normal 13-35 [facility] Comment on above: Order Comment: Speci men Type: BLOOD SPECIMENOrdering Facility: [facility] Address: [address] [place] [address] Performed By: #### 2 4323-8 ####[facility] MILLTOWNCLIA [id number] [place] [address] [place] Bilirubin [Mass/Vol] 0.5 mg/dL Normal 0.2-1.3 [facility] Comment on above: Order Comment: Speci men Type: BLOOD SPECIMENOrdering Facility: [facility] Address: [address] [place] [address] Performed By: #### 2 4323-8 ####[facility] MILLTOWNCLIA [id number] [place] [address] [place] Calcium [Mass/Vol] 9.6 mg/dL Normal 8.5-10.2 [facility] Comment on above: Order Comment: Speci men Type: BLOOD SPECIMENOrdering Facility: [facility] Address: [address] [place] [address] Performed By: #### 2 4323-8 ####[facility]ENTERWNCLIA [id number] [place] [address] [place] Chloride [Moles/Vol] 104 mmol/L Normal 98-107 [facility] Comment on above: Order Comment: Speci men Type: BLOOD SPECIMENOrdering Facility: [facility] Address: [address] [place] [address] Performed By: #### 2 4323-8 ####[facility]ALTH[facility] [id number] [place] [address] [place] CO2 [Moles/Vol] 23 mmol/L Normal 22-30 [facility] Comment on above: Order Comment: Speci men Type: BLOOD SPECIMENOrdering Facility: [facility] Address: [address] [place] [address] Performed By: #### 2 4323-8 ####[facility] [id number] [place] [address] [place] Creatinine [Mass/Vol] 1.02 mg/dL High 0.58-0.96 [facility] Comment on above: Order Comment: Speci men Type: BLOOD SPECIMENOrdering Facility: [facility] Address: [address] [place] [address] Performed By: #### 2 4323-8 ####[facility]ALTHLIA [id number] [place] [address] [place] [facility] Creatinine and Glomerular filtration rate.predicted panel (S/P/Bld) 57 mL/min/1.73m??? Low >=60 [facility] Comment on above: Order Comment: Speci men Type: BLOOD SPECIMENOrdering Facility: [facility] Address: [address] [place] [address] Result Comment: Nhan mated Glomerular Filtration Rate (eGFR) is calculated using the 2020 CKD-EPI creatinine equation. This equation utilizes serum creatinine, sex, and age as parameters. The creatinine assay has traceable calibration to isotope dilution-mass spectrometry. Refer to KDIGO guidelines for clinical interpretation. In patients with unstable renal function, e.g. those with acute kidney injury, the eGFR may not accurately reflect actual GFR. Performed By: #### 2 4323-8 ####[facility]ENTERWNCLIA [id number] [place] [address] [place] Glucose [Mass/Vol] 109 mg/dL High 74-99 [facility] Comment on above: Order Comment: Speci men Type: BLOOD SPECIMENOrdering Facility: [facility] Address: [address] [place], [place] [id number] Result Comment: The [place] Diabetes Association (ADA) provides guidance for cutoff values for fasting glucose and random glucose. The ADA defines fasting as no caloric intake for at least 8 hours. Fasting plasma glucose results between 100 to 125 mg/dL indicate increased risk for diabetes (prediabetes).Fasting plasma glucose results greater than or equal to 126 mg/dL meet the criteria for diagnosis of diabetes. In the absence of unequivocal hyperglycemia, results should be confirmed by repeat testing. In a patient with classic symptoms of hyperglycemia or hyperglycemic crisis, random plasma glucose results greater than or equal to 200 mg/dL meet the criteria for diagnosis of diabetes.Reference: Standards of Medical Care in Diabetes 2016, [place] Diabetes Association. Diabetes Care. 2016.39(Suppl 1). Performed By: #### 2 4323-8 ####[facility] PLACIDNCLIA [id number] [place] [address] [place] Potassium [Moles/Vol] 4.1 mmol/L Normal 3.7-5.1 [facility] Comment on above: Order Comment: Speci men Type: BLOOD SPECIMENOrdering Facility: [facility] Address: [address] [place] [address] Performed By: #### 2 4323-8 ####[facility] [id number] [place] [address] [place] Protein [Mass/Vol] 6.5 g/dL Normal 6.3-8.0 [facility] Comment on above: Order Comment: Speci men Type: BLOOD SPECIMENOrdering Facility: [facility] Address: [address] [place] [address] Performed By: #### 2 4323-8 ####[facility] RACHELLE SNOWLIA [id number] [place] [address] [place] Sodium [Moles/Vol] 138 mmol/L Normal 136-144 [facility] Comment on above: Order Comment: Speci men Type: BLOOD SPECIMENOrdering Facility: [facility] Address: [address] [place] [address] Performed By: #### 2 4323-8 ####[facility] EDYLIA [id number] [address] [place] Urea nitrogen [Mass/Vol] 12 mg/dL Normal 7-21 [facility] Comment on above: Order Comment: Speci men Type: BLOOD SPECIMENOrdering Facility: [facility] Address: [address] [place] [address] Performed By: #### 2 4323-8 ####[facility] RACHELLE EDYLIA [id number] [place] [address] [place] CNPNon 07-27-2024 CNPN Normal [facility] CT ABDOMEN PELVIS WITHOUT CO NTRASTon 07-26-2024 CT ABDOMEN PELVIS WITHOUT CONTRAST EXAMINATION: CT ABDOMEN PELVIS WITHOUT CONTRAST HISTORY: ORDERING SYSTEM PROVIDED HISTORY: Abd pain. TECHNOLOGIST PROVIDED HISTORY: Illness/Other. Reason for exam: [id number]-[id number] abd pain. Encounter Type: Initial. Additional signs and symptoms: Feels gassy. COMPARISON: None. TECHNIQUE: CT examination of the abdomen and pelvis without IV contrast. Coronal and sagittal reformations were performed. Dose reduction techniques were achieved by using automated exposure control and/or adjustment of mA and/or kV according to patient size and/or use of iterative reconstruction technique. FINDINGS: LOWER CHEST: Normal. ABDOMEN: Liver: Hepatomegaly. Subcentimeter low attending focus in the left hepatic lobe is too small to definitively characterize. Bile ducts: Normal caliber. Gallbladder: No calcified gallstones. Normal caliber wall. Pancreas: Moderate atrophy. No acute inflammatory changes identified. Spleen: Normal. Adrenals: Normal. Kidneys: No hydronephrosis or nephrolithiasis. PELVIS: Reproductive organs: No pelvic masses. Uterus is surgically absent. Ureters: Normal. Bladder: Suboptimally distended without gross abnormality. OTHER ABDOMEN AND PELVIS: Bowel: Nonspecific thickening and fecalization of the terminal ileum. Fatty infiltration of the ileocecal valve. No appendicitis. Mild diffuse colonic stool burden. No bowel obstruction. Sigmoid colonic diverticulosis. Peritoneum: No free intraperitoneal air. No ascites or fluid collection. Vessels: Normal caliber abdominal aorta with knpe-bo-[id number]. Lymph nodes: No enlarged lymph nodes. Abdominal wall: Small fat-containing umbilical hernia. Small fat-containing right inguinal hernia. Prior left inguinal hernia repair. Osseous structures: Sclerotic lesions scattered throughout the axial skeleton measuring up to 2.9 x 2.4 cm in the right iliac wing and 2.5 x 3.3 cm at the L2 vertebral body. Possible large posterior disc-osteophyte complex of L2-3 or exophytic osseous metastasis measuring up to 0.9 x 1.4 cm contributing to severe spinal canal stenosis. Interval tiny sclerotic lesions scattered throughout the axial skeleton. Miscellaneous: Moderate bilateral subcutaneous fat stranding in the gluteal regions. May relate to region injections. IMPRESSION: Interval sclerotic lesions scattered throughout the visualized axial skeleton. 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 Recommend oncology evaluation. Recommend mammogram if not recently performed and nonemergent enhanced CT of the chest, abdomen and pelvis. Large posterior disc-osteophyte complex of L2-3 or exophytic osseous metastasis contributing to severe spinal canal stenosis. Recommend MRI lumbar spine with without contrast. Nonspecific thickening and fecalization of the terminal ileum. Findings may relate to underlying ileus and/or ileitis. No overt bowel obstruction. Sigmoid colonic diverticulosis. No diverticulitis. [employer] Workstation ID: [id number] Dictated by: FILEMON ROBLES on ThuJuly 26, 2024 12:23:09 PM EDT Transcribed by: ROSEANNA BELTRAN on ThuJuly 26, 2024 12:30:06 PM EDT Finalized by: FILEMON ROBLES on ThuJuly 26, 2024 11:26:57 PM EDT [facility] Comment on above: Order Comment: Injur y/Trauma or Illness?:Illness/Other How long have you had these symptoms (acute/chronic)?:Acute Reason for exam?:mid to lower abd pain Type of Exam?:Initial Additional signs and symptoms?:luisflorence shazia ED Prov Noteon 07-26-2024 ED Prov Note HPI: 07/26/2024, Time: @CAMPOS@ Marina Moraes is a 78 y.o. female presenting to the ED for gradual onset of nausea vomiting and stomach upset, beginning over the last 3 weeks ago. The complaint has been intermittent, moderate in severity, and worsened by nothing. No alleviating factors. No fever chills or fatigue. No diarrhea or constipation or black or bloody stools ROS: Pertinent positives and negatives are stated within HPI, all other systems reviewed and are negative. PAST HISTORY Past Medical History: @[facility]@ Past Surgical History: has a past surgical history that includes Hysterectomy; Joint replacement; and orthopedic surgery. Social History: reports that she has never smoked. She has never used smokeless tobacco. She reports that she does not currently use alcohol. She reports that she does not use drugs. Family History: family history is not on file. The patient's home medications have been reviewed. Allergies: Ct: iodinated contrast- oral and iv dye and Sulfa (sulfonamide antibiotics) RESULTS All laboratory and radiology results have been personally reviewed by myself LABS: Results for orders placed or performed during the hospital encounter of 07/26/24 POC CBC and Differential Collection Time: 07/26/24 11:48 AM Result Value Ref Range WBC 2.51 (L) 4.50 - 11.00 K/mcL RBC 2.91 (L) 4.00 - 5.20 M/mcL Hemoglobin 10.2 (L) 12.0 - 16.0 g/dL Hematocrit 30.9 (L) 36.0 - 46.0 % MCV 106.2 (H) 80.0 - 100.0 fL MCH 35.1 (H) 26.0 - 34.0 pg MCHC 33.0 31.0 - 37.0 g/dL RDW - CV 16.6 (H) 11.6 - 14.8 % Platelets 255 150 - 400 K/mcL MPV 9.6 9.4 - 12.4 fL Comment See Comment (CR) (none) POC Basic Metabolic Panel Collection Time: 07/26/24 11:56 AM Result Value Ref Range Glucose 105 (H) 65 - 99 mg/dL BUN 10 8 - 25 mg/dL Creatinine 1.00 0.60 - 1.20 mg/dL GFR 59 (L) >=60 mL/min/1.73 m2 Sodium 139 135 - 145 mmol/L Potassium 4.2 3.5 - 5.1 mmol/L Chloride 103 98 - 108 mmol/L TCO2 27 21 - 32 mmol/L Ionized Calcium 4.9 4.5 - 5.3 mg/dL POC Liver Panel Plus Collection Time: 07/26/24 11:56 AM Result Value Ref Range Albumin 3.8 3.2 - 5.2 g/dL Alkaline Phosphatase 62 40 - 150 U/L ALT (SGPT) 14 0 - 40 U/L AST (SGOT) 25 0 - 45 U/L Bilirubin, Total 0.7 0.0 - 1.3 mg/dL Total Protein 6.7 6.0 - 8.0 g/dL Amylase 46 25 - 115 U/L GGT 17 7 - 33 U/L POC CBC and Differential Collection Time: 07/26/24 12:13 PM Result Value Ref Range WBC 2.63 (L) 4.50 - 11.00 K/mcL RBC 2.97 (L) 4.00 - 5.20 M/mcL Hemoglobin 10.6 (L) 12.0 - 16.0 g/dL Hematocrit 31.5 (L) 36.0 - 46.0 % MCV 106.1 (H) 80.0 - 100.0 fL MCH 35.7 (H) 26.0 - 34.0 pg MCHC 33.7 31.0 - 37.0 g/dL RDW - CV 16.8 (H) 11.6 - 14.8 % Platelets 289 150 - 400 K/mcL MPV 9.3 (L) 9.4 - 12.4 fL Neutrophils 73.4 % Lymphocytes 12.9 % Monocytes 9.9 % Eosinophils 1.5 % Basophils 1.9 % IG Percent 0.40 % Neutrophils Abs 1.93 1.70 - 7.00 K/mcL Lymphocytes Abs 0.34 (L) 0.90 - 4.00 K/mcL Monocytes Abs 0.26 (L) 0.30 - 0.90 K/mcL Eosinophils Abs 0.04 0.00 - 0.50 K/mcL Basophils Abs 0.05 0.00 - 0.30 K/mcL IG Absolute 0.01 0.00 - 0.30 K/mcL RADIOLOGY: Interpreted by Radiologist. CT Abdomen Pelvis Without Contrast Preliminary Result Interval sclerotic lesions scattered throughout the visualized axial skeleton. 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 Recommend oncology evaluation. Recommend mammogram if not recently performed and nonemergent enhanced CT of the chest, abdomen and pelvis. Large posterior disc-osteophyte complex of L2-3 or exophytic osseous metastasis contributing to severe spinal canal stenosis. Recommend MRI lumbar spine with without contrast. Nonspecific thickening and fecalization of the terminal ileum. Findings may relate to underlying ileus and/or ileitis. No overt bowel obstruction. Sigmoid colonic diverticulosis. No diverticulitis. [employer] Workstation ID: [id number] NURSING NOTES AND VITALS REVIEWED -- The nursing notes within the ED encounter and vital signs as below have been reviewed. BP (!) 154/70 (BP Location: Left arm, Patient Position: Sitting) Pulse 67 Temp 99 degrees F (37.2 degrees C) (Temporal) Resp 18 Ht 4' 11 Wt 83.9 kg (185 lb) SpO2 95% BMI 37.37 kg/m Oxygen Saturation Interpretation: Normal -PHYSICAL EXAM Constitutional/General: Alert and oriented x3, well appearing, non toxic in NAD Head: NC/AT Eyes: PERRL, EOMI Mouth: Oropharynx clear, handling secretions, no trismus Neck: Supple, full ROM, no meningeal signs Pulmonary: Lungs clear to auscultation bilaterally, no wheezes, rales, or rhonchi. Not in respirat (more content not included)... Normal [facility] POC BASIC METABOLIC PANEL - [facility] 07-26-2024 Chloride [Moles/Vol] 103 mmol/L Normal 98-108 [facility] Comment on above: Order Comment: [facility] has implemented the eGFR calculation approach that does not have a coefficient for race that conforms to the NKF-ASN Task Force Recommendations. CO2 [Moles/Vol] 27 mmol/L Normal 21-32 [facility] Comment on above: Order Comment: [facility] has implemented the eGFR calculation approach that does not have a coefficient for race that conforms to the NKF-ASN Task Force Recommendations. Creatinine [Mass/Vol] 1.00 mg/dL Normal 0.60-1.20 [facility] Comment on above: Order Comment: [facility] has implemented the eGFR calculation approach that does not have a coefficient for race that conforms to the NKF-ASN Task Force Recommendations. Glucose [Mass/Vol] 105 mg/dL High 65-99 [facility] Comment on above: Order Comment: [facility] has implemented the eGFR calculation approach that does not have a coefficient for race that conforms to the NKF-ASN Task Force Recommendations. POC GFR 59 mL/min/1.73 m2 Low >=60 [facility] Comment on above: Order Comment: [facility] has implemented the eGFR calculation approach that does not have a coefficient for race that conforms to the NKF-ASN Task Force Recommendations. Result Comment: Nhan mated GFR was calculated using the 2020 CKD-EPI creatinine equation. POC IONIZED CALCIUM 4.9 mg/dL Normal 4.5-5.3 [facility] Comment on above: Order Comment: [facility] has implemented the eGFR calculation approach that does not have a coefficient for race that conforms to the NKF-ASN Task Force Recommendations. Potassium [Moles/Vol] 4.2 mmol/L Normal 3.5-5.1 [facility] Comment on above: Order Comment: [facility] has implemented the eGFR calculation approach that does not have a coefficient for race that conforms to the NKF-ASN Task Force Recommendations. Sodium [Moles/Vol] 139 mmol/L Normal 135-145 [facility] Comment on above: Order Comment: [facility] has implemented the eGFR calculation approach that does not have a coefficient for race that conforms to the NKF-ASN Task Force Recommendations. Urea nitrogen [Mass/Vol] 10 mg/dL Normal 8-25 [facility] Comment on above: Order Comment: [facility] has implemented the eGFR calculation approach that does not have a coefficient for race that conforms to the NKF-ASN Task Force Recommendations. POC CBC AND DIFFERENTIALon 0 - BASOPHILS ABSOLUTE COUNT 0.05 K/mcL Normal 0.00-0.30 [facility] Basophils/100 WBC (Bld) 1.9 % Normal [facility] Eosinophils (Bld) [#/Vol] 0.04 10*3/uL Normal 0.00-0.50 [facility] Eosinophils/100 WBC (Bld) 1.5 % Normal [facility] Erythrocyte distribution width (RBC) [Ratio] 16.8 % High 11.6-14.8 [facility] Hematocrit (Bld) [Volume fraction] 31.5 % Low 36.0-46.0 [facility] Hemoglobin (Bld) [Mass/Vol] 10.6 g/dL Low 12.0-16.0 [facility] IG ABSOLUTE 0.01 K/mcL Normal 0.00-0.30 [facility] IG PERCENT 0.40 % Normal [facility] Comment on above: Result Comment: The IG parameter is the percentage of metamyelocytes, myelocytes and promyelocytes. An immature granulocyte count (IG) of 1% or more suggests the possibility of infection, an IG count of 3% is very likely related to an infection. Lymphocytes (Bld) [#/Vol] 0.34 10*3/uL Low 0.90-4.00 [facility] Lymphocytes/100 WBC (Bld) 12.9 % Normal [facility] MCH (RBC) [Entitic mass] 35.7 pg High 26.0-34.0 [facility] MCV (RBC) [Entitic vol] 106.1 fL High 80.0-100.0 [facility] MEAN CORPUSCULAR HEMOGLOBIN CONC 33.7 g/dL Normal 31.0-37.0 [facility] Monocytes (Bld) [#/Vol] 0.26 10*3/uL Low 0.30-0.90 [facility] Monocytes/100 WBC (Bld) 9.9 % Normal [facility] NEUTROPHILS ABSOLUTE COUNT 1.93 K/mcL Normal 1.70-7.00 [facility] Neutrophils/100 WBC (Bld) 73.4 % Normal [facility] Platelet mean volume (Bld) [Entitic vol] 9.3 fL Low 9.4-12.4 [facility] Platelets (Bld) [#/Vol] 289 10*3/uL Normal 150-400 [facility] RBC (Bld) [#/Vol] 2.97 10*6/uL Low 4.00-5.20 [facility] WBC (Bld) [#/Vol] 2.63 10*3/uL Low 4.50-11.00 [facility] Erythrocyte distribution width (RBC) [Ratio] 16.6 % High 11.6-14.8 [facility] Hematocrit (Bld) [Volume fraction] 30.9 % Low 36.0-46.0 [facility] Hemoglobin (Bld) [Mass/Vol] 10.2 g/dL Low 12.0-16.0 [facility] MCH (RBC) [Entitic mass] 35.1 pg High 26.0-34.0 [facility] MCV (RBC) [Entitic vol] 106.2 fL High 80.0-100.0 [facility] MEAN CORPUSCULAR HEMOGLOBIN CONC 33.0 g/dL Normal 31.0-37.0 [facility] Platelet mean volume (Bld) [Entitic vol] 9.6 fL Normal 9.4-12.4 [facility] Platelets (Bld) [#/Vol] 255 10*3/uL Normal 150-400 [facility] RBC (Bld) [#/Vol] 2.91 10*6/uL Low 4.00-5.20 [facility] WBC (Bld) [#/Vol] 2.51 10*3/uL Low 4.50-11.00 [facility] XNBLASTCOM See Comment Critically abnormal (none) [facility] Comment on above: Result Comment: JUAN VELAZQUEZ. CBCD reordered and sent to . Possible presence of Blasts/ immature granulocytes and /or atypical lymphocytes present. Automated differential not reported. POC LIVER PANEL PLUS [facility] 07-26-2024 Albumin [Mass/Vol] 3.8 g/dL Normal 3.2-5.2 [facility] ALP [Catalytic activity/Vol] 62 U/L Normal 40-150 [facility] ALT [Catalytic activity/Vol] 14 U/L Normal 0-40 [facility] Amylase [Catalytic activity/Vol] 46 U/L Normal 25-115 [facility] Amylase [Catalytic activity/Vol] 17 U/L Normal 7-33 [facility] AST [Catalytic activity/Vol] 25 U/L Normal 0-45 [facility] Bilirubin [Mass/Vol] 0.7 mg/dL Normal 0.0-1.3 [facility] Protein [Mass/Vol] 6.7 g/dL Normal 6.0-8.0 [facility] CA 27.29on 07-13-2024 Cancer Ag 27-29 Qn 329.2 [arb'U]/mL High <38.6 [facility] Comment on above: Order Comment: Speci men Type: BLOOD SPECIMENOrdering Facility: [facility] Address: [address] [id number] Result Comment: The CA27.29 test was performed using the Siemens Centaur XP chemiluminometric immunoassay method. Results obtained with different assay methods or kits cannot be used interchangeably.[facility] will discontinue CA 27.29 testing effective 08/09/2024, with CA 15-3 as its replacement. In preparation for the discontinuation, CA 15-3 testing in parallel was conducted with CA 27.29 to establish a new baseline. Performed By: #### L [id number] ####[facility] LABCLIA [id number] [address] [address] [place] CBC W Auto Differential pane l (Bld)on 07-13-2024 Anisocytosis Ql (Bld) Present Normal [facility] Comment on above: Order Comment: Speci men Type: BLOOD SPECIMENOrdering Facility: [facility] Address: [address] [place] [address] Performed By: #### 5 7021-8 ####[facility] MILLTOWNCLIA [id number] [place] [address] [place] [facility] LABCLIA [id number] [place] [address] [place] Basophils (Bld) [#/Vol] 0.09 10*3/uL Normal <0.11 [facility] Comment on above: Order Comment: Speci men Type: BLOOD SPECIMENOrdering Facility: [facility] Address: [address] [place] [address] Performed By: #### 5 7021-8 ####[facility] MILLTOWNCLIA [id number] [address] STATES [facility] LABCLIA [id number] [place] [address] [place] Basophils/100 WBC (Bld) 3.5 % Normal [facility] Comment on above: Order Comment: Speci men Type: BLOOD SPECIMENOrdering Facility: [facility] Address: [address] [place] [address] Performed By: #### 5 7021-8 ####[facility] MILLTOWNCLIA [id number] [address] LABCLIA [id number] [place] [address] [place] Dacrocytes LM Ql (Bld) Few Normal [facility] Comment on above: Order Comment: Speci men Type: BLOOD SPECIMENOrdering Facility: [facility] Address: [address] [place] [address] Performed By: #### 5 7021-8 ####[facility] MILLTOWNCLIA [id number] [address] LABCLIA [id number] [place] [address] [place] Differential cell count method Nom (Bld) Manual Normal [facility] Comment on above: Order Comment: Speci men Type: BLOOD SPECIMENOrdering Facility: [facility] Address: [address] [place] [address] Performed By: #### 5 7021-8 ####[facility] CENTERWNCLIA [id number] [address] LABCLIA [id number] [place] [address] [place] Eosinophils (Bld) [#/Vol] 0.07 10*3/uL Normal <0.46 [facility] Comment on above: Order Comment: Speci men Type: BLOOD SPECIMENOrdering Facility: [facility] Address: [address] [place] [address] Performed By: #### 5 7021-8 ####[facility] CENTERWNCLIA [id number] [address] LABCLIA [id number] [place] [address] [place] Eosinophils/100 WBC (Bld) 2.6 % Normal [facility] Comment on above: Order Comment: Speci men Type: BLOOD SPECIMENOrdering Facility: [facility] Address: [address] [place] [address] Performed By: #### 5 7021-8 ####[facility] CENTERWNCLIA [id number] [address] LABCLIA [id number] [facility] [address] [address] [place] Erythrocyte distribution width (RBC) [Ratio] 16.1 % High 11.5-15.0 [facility] Comment on above: Order Comment: Speci men Type: BLOOD SPECIMENOrdering Facility: [facility] Address: [address] [place] [address] Performed By: #### 5 7021-8 ####[facility] MILLTOWNCLIA [id number] [address] LABCLIA [id number] [facility] [place] [address] [place] Hematocrit (Bld) [Volume fraction] 30.5 % Low 36.0-46.0 [facility] Comment on above: Order Comment: Speci men Type: BLOOD SPECIMENOrdering Facility: [facility] Address: [address] [place] [address] Performed By: #### 5 7021-8 ####[facility] CENTERWNCLIA [id number] [address] LABCLIA [id number] [address], [facility]95 [place] Hemoglobin (Bld) [Mass/Vol] 10.4 g/dL Low 11.5-15.5 [facility] Comment on above: Order Comment: Speci men Type: BLOOD SPECIMENOrdering Facility: [facility] Address: [address] [place], [place] [address] Performed By: #### 5 7021-8 ####[facility] MILLWNCLIA [id number] [address] LABCLIA [id number] [facility] [place] [id number] [place] Lymphocytes (Bld) [#/Vol] 0.31 10*3/uL Low 1.00-4.00 [facility] Comment on above: Order Comment: Speci men Type: BLOOD SPECIMENOrdering Facility: [facility] Address: [address] [place] [address] Performed By: #### 5 7021-8 ####[facility] HEALTHLIA [id number] [address] LABCLIA [id number] [place] [address] [place] Lymphocytes/100 WBC (Bld) 12.3 % Normal [facility] Comment on above: Order Comment: Speci men Type: BLOOD SPECIMENOrdering Facility: [facility] Address: [address] [place] [address] Performed By: #### 5 7021-8 ####[facility] [id number] [address] LABCLIA [id number] [place] [address] [place] MCH (RBC) [Entitic mass] 35.0 pg High 26.0-34.0 [facility] Comment on above: Order Comment: Speci men Type: BLOOD SPECIMENOrdering Facility: [facility] Address: [address] [place] [address] Performed By: #### 5 7021-8 ####[facility] HEALTHLIA [id number] [address] LABCLIA [id number] [place] [address] [place] MCHC (RBC) [Mass/Vol] 34.1 g/dL Normal 30.5-36.0 [facility] Comment on above: Order Comment: Speci men Type: BLOOD SPECIMENOrdering Facility: [facility] Address: [address] [place] [address] Performed By: #### 5 7021-8 ####[facility] MILLTOWNCLIA [id number] [address] LABCLIA [id number] [address] [address] [place] MCV (RBC) [Entitic vol] 102.7 fL High 80.0-100.0 [facility] Comment on above: Order Comment: Speci men Type: BLOOD SPECIMENOrdering Facility: [facility] Address: [address] [place] [address] Performed By: #### 5 7021-8 ####[facility] PLACIDNCLIA [id number] [address] LABCLIA [id number] [place] [address] [place] Monocytes (Bld) [#/Vol] 0.15 10*3/uL Normal <0.87 [facility] Comment on above: Order Comment: Speci men Type: BLOOD SPECIMENOrdering Facility: [facility] Address: [address] [place] [address] Performed By: #### 5 7021-8 ####[facility] PLACIDNCLIA [id number] [address] LABCLIA [id number] [place] [address] [place] Monocytes/100 WBC (Bld) 6.1 % Normal [facility] Comment on above: Order Comment: Speci men Type: BLOOD SPECIMENOrdering Facility: [facility] Address: [address] [place] [address] Performed By: #### 5 7021-8 ####[facility] MILLWNCLIA [id number] [address] LABCLIA [id number] [address] [address] [place] Neutrophils (Bld) [#/Vol] 1.91 10*3/uL Normal 1.45-7.50 [facility] Comment on above: Order Comment: Speci men Type: BLOOD SPECIMENOrdering Facility: [facility] Address: [address] [place] [address] Performed By: #### 5 7021-8 ####[facility] MILLWNCLIA [id number] [address] STATES OF [facility] LABCLIA [id number] [place] [address] [place] Neutrophils/100 WBC (Bld) 75.5 % Normal [facility] Comment on above: Order Comment: Speci men Type: BLOOD SPECIMENOrdering Facility: [facility] Address: [address] [place] [address] Performed By: #### 5 7021-8 ####[facility] CENTERWNCLIA [id number] [address] LABCLIA [id number] [place] [address] [place] Nucleated RBC (Bld) [#/Vol] 10*3/uL Normal <0.01 [facility] Comment on above: Order Comment: Speci men Type: BLOOD SPECIMENOrdering Facility: [facility] Address: [address] [place] [address] Performed By: #### 5 7021-8 ####[facility] MILLWNCLIA [id number] [address] STATES OF [facility] LABCLIA [id number] [place] [id number] [place] Nucleated RBC/100 WBC (Bld) [Ratio] 0.0 /100 WBC Normal [facility] Comment on above: Order Comment: Speci men Type: BLOOD SPECIMENOrdering Facility: [facility] Address: [address] [place] [address] Performed By: #### 5 7021-8 ####[facility] MILLTOWNCLIA [id number] [place] [address] [place] [facility] LABCLIA [id number] [place] [address] [place] Ovalocytes LM Ql (Bld) Few Normal [facility] Comment on above: Order Comment: Speci men Type: BLOOD SPECIMENOrdering Facility: [facility] Address: [address] [place] [address] Performed By: #### 5 7021-8 ####[facility] CENTERWNCLIA [id number] [address] STATES [facility] LABCLIA [id number] [place] [address] [place] Platelet mean volume (Bld) [Entitic vol] 9.1 fL Normal 9.0-12.7 [facility] Comment on above: Order Comment: Speci men Type: BLOOD SPECIMENOrdering Facility: [facility] Address: [address] [place] [address] Performed By: #### 5 7021-8 ####[facility] CENTERWNCLIA [id number] [place] [address] [place] [facility] LABCLIA [id number] [place] [id number] [place] Platelets (Bld) [#/Vol] 182 10*3/uL Normal 150-400 [facility] Comment on above: Order Comment: Speci men Type: BLOOD SPECIMENOrdering Facility: [facility] Address: [address] [place] [address] Performed By: #### 5 7021-8 ####[facility] MILLWNCLIA [id number] [place] [address] [place] [facility] LABCLIA [id number] [facility] CENTERK [address] [place] [address] [place] Platelets Estimate (Bld) [#/Vol] Adequate Normal [facility] Comment on above: Order Comment: Speci men Type: BLOOD SPECIMENOrdering Facility: [facility] Address: [address] [place] [address] Performed By: #### 5 7021-8 ####[facility] MILLTOWNCLIA [id number] [address] STATES [facility] LABCLIA [id number] [place] [address] [place] Polychromasia LM Ql (Bld) Slight Normal [facility] Comment on above: Order Comment: Speci men Type: BLOOD SPECIMENOrdering Facility: [facility] Address: [address] [place] [address] Performed By: #### 5 7021-8 ####[facility] MILLTOWNCLIA [id number] [place] [address] [place] [facility] LABCLIA [id number] [address] [place] [address] [place] RBC (Bld) [#/Vol] 2.97 10*6/uL Low 3.90-5.20 [facility] Comment on above: Order Comment: Speci men Type: BLOOD SPECIMENOrdering Facility: [facility] Address: [address] [place] [address] Performed By: #### 5 7021-8 ####[facility] MILLTOWNCLIA [id number] [place] [address] [place] [facility] LABCLIA [id number] [facility] [address] [place] [address] [place] RBC FRAGMENTS Few Abnormal None Seen [facility] Comment on above: Order Comment: Speci men Type: BLOOD SPECIMENOrdering Facility: [facility] Address: [address] [place] [address] Performed By: #### 5 7021-8 ####[facility] PLACIDNCLIA [id number] [address] LABCLIA [id number] [place] [address] [place] RED CELL MORPH Reviewed: see result s of individual morphologies Normal [facility] Comment on above: Order Comment: Speci men Type: BLOOD SPECIMENOrdering Facility: [facility] Address: [address] [place] [address] Performed By: #### 5 7021-8 ####[facility] [id number] [address] LABCLIA [id number] [place] [address] [place] WBC (Bld) [#/Vol] 2.53 10*3/uL Low 3.70-11.00 [facility] Comment on above: Order Comment: Speci men Type: BLOOD SPECIMENOrdering Facility: [facility] Address: [address] [place] [address] Performed By: #### 5 7021-8 ####[facility] [id number] [address] LABCLIA [id number] [place] [address] [place] Cancer Ag15-3 SerPl-aCncon 0 07-13-2024 Cancer Ag 15-3 Qn 206.4 U/mL High <26.0 [facility] Comment on above: Order Comment: Speci men Type: BLOOD SPECIMENOrdering Facility: [facility] Address: [address] [place] [address] Result Comment: The CA 15-3 test methodology used is the Electrochemiluminescence Immunoassay by [employer]. Results obtained with different methods or kits cannot be used interchangeably.[facility] will discontinue CA 27.29 testing effective 08/09/2024, with CA 15-3 as its replacement. In preparation for the discontinuation, CA 15-3 testing in parallel was conducted with CA 27.29 to establish a new baseline. Performed By: #### 6 875-9 ####[facility] LABCLIA [id number] [place] [address] [place] Comprehensive metabolic 2000 panelon 07-13-2024 Albumin [Mass/Vol] 4.1 g/dL Normal 3.9-4.9 [facility] Comment on above: Order Comment: Speci men Type: BLOOD SPECIMENOrdering Facility: [facility] Address: [address] [place], [place] [address] Performed By: #### 2 4323-8 ####[facility]ITALA [id number] [place] [address] [place] ALP [Catalytic activity/Vol] 84 U/L Normal 34-123 [facility] Comment on above: Order Comment: Speci men Type: BLOOD SPECIMENOrdering Facility: [facility] Address: [address] [place], [place] [address] Performed By: #### 2 4323-8 ####[facility] HEALTHLIA [id number] [place] [address] [place] ALT [Catalytic activity/Vol] 11 U/L Normal 7-38 [facility] Comment on above: Order Comment: Speci men Type: BLOOD SPECIMENOrdering Facility: [facility] Address: [address] [place], [place] [address] Performed By: #### 2 4323-8 ####[facility] PLACIDNCLIA [id number] [place] [address] [place] Anion gap [Moles/Vol] 8 mmol/L Normal 8-15 [facility] Comment on above: Order Comment: Speci men Type: BLOOD SPECIMENOrdering Facility: [facility] Address: [address] [place] [address] Performed By: #### 2 4323-8 ####[facility] TASHANCLIA [id number] [place] [address] [place] AST [Catalytic activity/Vol] 17 U/L Normal 13-35 [facility] Comment on above: Order Comment: Speci men Type: BLOOD SPECIMENOrdering Facility: [facility] Address: [address] [place] [address] Performed By: #### 2 4323-8 ####[facility] RAJINDERWNCLIA [id number] [place] [address] [place] Bilirubin [Mass/Vol] 0.4 mg/dL Normal 0.2-1.3 [facility] Comment on above: Order Comment: Speci men Type: BLOOD SPECIMENOrdering Facility: [facility] Address: [address] [place] [address] Performed By: #### 2 4323-8 ####[facility] RAJINDERPEWAUKEENCLIA [id number] [place] [address] [place] Calcium [Mass/Vol] 9.9 mg/dL Normal 8.5-10.2 [facility] Comment on above: Order Comment: Speci men Type: BLOOD SPECIMENOrdering Facility: [facility] Address: [address] [place] [address] Performed By: #### 2 4323-8 ####[facility] PLACIDNCLIA [id number] [place] [address] [place] Chloride [Moles/Vol] 102 mmol/L Normal 98-107 [facility] Comment on above: Order Comment: Speci men Type: BLOOD SPECIMENOrdering Facility: [facility] Address: [address] [place] [address] Performed By: #### 2 4323-8 ####[facility] PLACIDNCLIA [id number] [place] [address] [place] CO2 [Moles/Vol] 28 mmol/L Normal 22-30 [facility] Comment on above: Order Comment: Speci men Type: BLOOD SPECIMENOrdering Facility: [facility] Address: [address] [place] [address] Performed By: #### 2 4323-8 ####[facility] PLACIDNCLI [id number] [place] [address] [place] Creatinine [Mass/Vol] 0.97 mg/dL High 0.58-0.96 [facility] Comment on above: Order Comment: Speci men Type: BLOOD SPECIMENOrdering Facility: [facility] Address: [address] [place] [address] Performed By: #### 2 4323-8 ####[facility] [id number] [place] [address] [place] Creatinine and Glomerular filtration rate.predicted panel (S/P/Bld) 61 mL/min/1.73m??? Normal >=60 [facility] Comment on above: Order Comment: Speci men Type: BLOOD SPECIMENOrdering Facility: [facility] Address: [address] [place] [address] Result Comment: Nhan mated Glomerular Filtration Rate (eGFR) is calculated using the 2020 CKD-EPI creatinine equation. This equation utilizes serum creatinine, sex, and age as parameters. The creatinine assay has traceable calibration to isotope dilution-mass spectrometry. Refer to KDIGO guidelines for clinical interpretation. In patients with unstable renal function, e.g. those with acute kidney injury, the eGFR may not accurately reflect actual GFR. Performed By: #### 2 4323-8 ####[facility] PLACIDNCLIA [id number] [place] [address] [place] Glucose [Mass/Vol] 87 mg/dL Normal 74-99 [facility] Comment on above: Order Comment: Speci men Type: BLOOD SPECIMENOrdering Facility: [facility] Address: [address] [place], [place] [address] Result Comment: The [place] Diabetes Association (ADA) provides guidance for cutoff values for fasting glucose and random glucose. The ADA defines fasting as no caloric intake for at least 8 hours. Fasting plasma glucose results between 100 to 125 mg/dL indicate increased risk for diabetes (prediabetes).Fasting plasma glucose results greater than or equal to 126 mg/dL meet the criteria for diagnosis of diabetes. In the absence of unequivocal hyperglycemia, results should be confirmed by repeat testing. In a patient with classic symptoms of hyperglycemia or hyperglycemic crisis, random plasma glucose results greater than or equal to 200 mg/dL meet the criteria for diagnosis of diabetes.Reference: Standards of Medical Care in Diabetes 2016, [place] [employer] Association. Diabetes Care. 2016.39(Suppl 1). Performed By: #### 2 4323-8 ####[facility] PLACIDDHEERAJHayley [id number] [place] [address] [place] Potassium [Moles/Vol] 4.2 mmol/L Normal 3.7-5.1 [facility] Comment on above: Order Comment: Amberi men Type: BLOOD SPECIMENOrdering Facility: [facility] Address: [address] [place], [place] [address] Performed By: #### 2 4323-8 ####[facility] PLACIDSUNDAY [id number] [place] [address] [place] Protein [Mass/Vol] 6.7 g/dL Normal 6.3-8.0 [facility] Comment on above: Order Comment: Speci men Type: BLOOD SPECIMENOrdering Facility: [facility] Address: [address] [place], [place] [address] Performed By: #### 2 4323-8 ####[facility] PLACIDDHEERAJLIA [id number] [place] [address] [place] Sodium [Moles/Vol] 138 mmol/L Normal 136-144 [facility] Comment on above: Order Comment: Speci men Type: BLOOD SPECIMENOrdering Facility: [facility] Address: [address] [place] [address] Performed By: #### 2 4323-8 ####[facility] CENTERRADAMESNCABRAHAM [id number] [place] [address] [place] Urea nitrogen [Mass/Vol] 16 mg/dL Normal 7-21 [facility] Comment on above: Order Comment: Speci men Type: BLOOD SPECIMENOrdering Facility: [facility] Address: [address] [place] [address] Performed By: #### 2 4323-8 ####[facility] PLACIDNCMOUNTAIN WEST [facility] [id number] [place] [address] [place] CA 27.29on 06-15-2024 Cancer Ag 27-29 Qn 318.2 [arb'U]/mL High <38.6 [facility] Comment on above: Order Comment: Speci men Type: BLOOD SPECIMENOrdering Facility: [facility] Address: [address] [place] [address] Result Comment: The CA27.29 test was performed using the [employer] Arachnoaur XP chemiluminometric immunoassay method. Results obtained with different assay methods or kits cannot be used interchangeably.[facility] will discontinue CA 27.29 testing effective 08/09/2024, with CA 15-3 as its replacement. In preparation for the discontinuation, CA 15-3 testing in parallel was conducted with CA 27.29 to establish a new baseline. Performed By: #### L [id number] ####[facility] LABCLIA [id number] [place] [address] [place] CBC W Auto Differential pane l (Bld)on 06-15-2024 Basophils (Bld) [#/Vol] 0.07 10*3/uL Normal <0.11 [facility] Comment on above: Order Comment: Speci men Type: BLOOD SPECIMENOrdering Facility: [facility] Address: [address] [place], [place] [address] Performed By: #### 5 7021-8 ####[facility] MILLTOWNCLIA [id number] [place] [address] [place] [facility] LABCLIA [id number] [facility] MED[facility] CENTERLID AVENUESHARP GROSSMONT HOSPITALK [address] [place] [address] [place] Basophils/100 WBC (Bld) 3.4 % Normal [facility] Comment on above: Order Comment: Speci men Type: BLOOD SPECIMENOrdering Facility: [facility] Address: [address] [place], [place] [address] Performed By: #### 5 7021-8 ####[facility] MILLTOWNCLIA [id number] [place] [address] [place] [facility] LABCLIA [id number] [facility] CENTERLID AVENUESHARP GROSSMONT HOSPITALK [address] [place] [address] [place] Dacrocytes LM Ql (Bld) Few Normal [facility] Comment on above: Order Comment: Speci men Type: BLOOD SPECIMENOrdering Facility: [facility] Address: [address] [place] [address] Performed By: #### 5 7021-8 ####[facility] MILLTOWNCLIA [id number] [place], [place] [address] [place] [address] [place] [facility] LABCLIA [id number] [facility] MED[facility] CENTERLID AVENUEDESK [address] [place] [address] [place] Differential cell count method Nom (Bld) Manual Normal [facility] Comment on above: Order Comment: Speci men Type: BLOOD SPECIMENOrdering Facility: [facility] Address: [address] [place], [place] [address] Performed By: #### 5 7021-8 ####[facility] MILLTOWNCLIA [id number] [place], [place] [id number] [place] [address] [place] [facility] LABCLIA [id number] [facility] [place] [address] [place] Eosinophils (Bld) [#/Vol] 0.06 10*3/uL Normal <0.46 [facility] Comment on above: Order Comment: Speci men Type: BLOOD SPECIMENOrdering Facility: [facility] Address: [address] [place] [address] Performed By: #### 5 7021-8 ####[facility] CENTERWNCLIA [id number] [address] LABCLIA [id number] [place] [address] [place] Eosinophils/100 WBC (Bld) 2.5 % Normal [facility] Comment on above: Order Comment: Speci men Type: BLOOD SPECIMENOrdering Facility: [facility] Address: [address] [place] [address] Performed By: #### 5 7021-8 ####[facility] CENTERWRILIA [id number] [address] LABCLIA [id number] [place] [address] [place] Erythrocyte distribution width (RBC) [Ratio] 14.4 % Normal 11.5-15.0 [facility] Comment on above: Order Comment: Speci men Type: BLOOD SPECIMENOrdering Facility: [facility] Address: [address] [place] [address] Performed By: #### 5 7021-8 ####[facility] CENTERWNCLIA [id number] [address] LABCLIA [id number] [address] [place] Hematocrit (Bld) [Volume fraction] 30.8 % Low 36.0-46.0 [facility] Comment on above: Order Comment: Speci men Type: BLOOD SPECIMENOrdering Facility: [facility] Address: [address] [place] [address] Performed By: #### 5 7021-8 ####[facility] RAJINDERMARIOLIA [id number] [address] LABCLIA [id number] [address] [address] [place] Hemoglobin (Bld) [Mass/Vol] 10.2 g/dL Low 11.5-15.5 [facility] Comment on above: Order Comment: Speci men Type: BLOOD SPECIMENOrdering Facility: [facility] Address: [address] [place] [address] Performed By: #### 5 7021-8 ####[facility] PLACIDDHEERAJLIA [id number] [address] LABCLIA [id number] [place] [address] [place] Lymphocytes (Bld) [#/Vol] 0.39 10*3/uL Low 1.00-4.00 [facility] Comment on above: Order Comment: Speci men Type: BLOOD SPECIMENOrdering Facility: [facility] Address: [address] [place] [address] Performed By: #### 5 7021-8 ####[facility] PLACIDDHEERAJLIA [id number] [address] LABCLIA [id number] [place] [address] [place] Lymphocytes/100 WBC (Bld) 17.6 % Normal [facility] Comment on above: Order Comment: Speci men Type: BLOOD SPECIMENOrdering Facility: [facility] Address: [address] [place] [address] Performed By: #### 5 7021-8 ####[facility] HEALTHLIA [id number] [place] [address] [place] [facility] LABCLIA [id number] [facility] [place] [address] [place] MCH (RBC) [Entitic mass] 34.2 pg High 26.0-34.0 [facility] Comment on above: Order Comment: Speci men Type: BLOOD SPECIMENOrdering Facility: [facility] Address: [address] [place] [address] Performed By: #### 5 7021-8 ####[facility] HEALTHLIA [id number] [address] STATES [facility] LABCLIA [id number] [place] [address] [place] MCHC (RBC) [Mass/Vol] 33.1 g/dL Normal 30.5-36.0 [facility] Comment on above: Order Comment: Speci men Type: BLOOD SPECIMENOrdering Facility: [facility] Address: [address] [place] [address] Performed By: #### 5 7021-8 ####[facility] [id number] [address] STATES [facility] LABCLIA [id number] [place] [address] [place] MCV (RBC) [Entitic vol] 103.4 fL High 80.0-100.0 [facility] Comment on above: Order Comment: Speci men Type: BLOOD SPECIMENOrdering Facility: [facility] Address: [address] [place] [address] Performed By: #### 5 7021-8 ####[facility] HEALTHLIA [id number] [place] [address] [place] [facility] LABCLIA [id number] [place] [address] [place] Monocytes (Bld) [#/Vol] 0.06 10*3/uL Normal <0.87 [facility] Comment on above: Order Comment: Speci men Type: BLOOD SPECIMENOrdering Facility: [facility] Address: [address] [place] [address] Performed By: #### 5 7021-8 ####[facility] CENTERWNCLIA [id number] [address] STATES OF [facility] LABCLIA [id number] [place] [address] [place] Monocytes/100 WBC (Bld) 2.5 % Normal [facility] Comment on above: Order Comment: Speci men Type: BLOOD SPECIMENOrdering Facility: [facility] Address: [address] [place] [address] Performed By: #### 5 7021-8 ####[facility]ALTHLIA [id number] [address] STATES OF [facility] LABCLIA [id number] [place] [address] [place] Neutrophils (Bld) [#/Vol] 1.63 10*3/uL Normal 1.45-7.50 [facility] Comment on above: Order Comment: Speci men Type: BLOOD SPECIMENOrdering Facility: [facility] Address: [address] [place] [address] Performed By: #### 5 7021-8 ####[facility] CENTERWNCLIA [id number] [address] STATES OF [facility] LABCLIA [id number] [place] [address] [place] Neutrophils/100 WBC (Bld) 74.0 % Normal [facility] Comment on above: Order Comment: Speci men Type: BLOOD SPECIMENOrdering Facility: [facility] Address: [address] [place] [address] Performed By: #### 5 7021-8 ####[facility] MILLTOWNCLIA [id number] [address] LABCLIA [id number] [place] [address] [place] Nucleated RBC (Bld) [#/Vol] 10*3/uL Normal <0.01 [facility] Comment on above: Order Comment: Speci men Type: BLOOD SPECIMENOrdering Facility: [facility] Address: [address] [place] [address] Performed By: #### 5 7021-8 ####[facility] MILLTOWNCLIA [id number] [address] LABCLIA [id number] [place] [address] [place] Nucleated RBC/100 WBC (Bld) [Ratio] 0.0 /100 WBC Normal [facility] Comment on above: Order Comment: Speci men Type: BLOOD SPECIMENOrdering Facility: [facility] Address: [address] [place] [address] Performed By: #### 5 7021-8 ####[facility] CENTERWNCLIA [id number] [address] LABCLIA [id number] [facility] [address] [place] Ovalocytes LM Ql (Bld) Few Normal [facility] Comment on above: Order Comment: Speci men Type: BLOOD SPECIMENOrdering Facility: [facility] Address: [address] [place] [address] Performed By: #### 5 7021-8 ####[facility] MILLTOWNCLIA [id number] [address] STATES OF [facility] LABCLIA [id number] [address] [address] [place] Platelet mean volume (Bld) [Entitic vol] 10.2 fL Normal 9.0-12.7 [facility] Comment on above: Order Comment: Speci men Type: BLOOD SPECIMENOrdering Facility: [facility] Address: [address] [place] [address] Performed By: #### 5 7021-8 ####[facility] MILLTOWNCLIA [id number] [place] [address] [place] [facility] LABCLIA [id number] [place] [address] [place] Platelets (Bld) [#/Vol] 148 10*3/uL Low 150-400 [facility] Comment on above: Order Comment: Speci men Type: BLOOD SPECIMENOrdering Facility: [facility] Address: [address] [place] [address] Performed By: #### 5 7021-8 ####[facility] MILLWNCLIA [id number] [place] [address] [place] [facility] LABCLIA [id number] [place] [address] [place] Platelets Estimate (Bld) [#/Vol] Decreased Normal [facility] Comment on above: Order Comment: Speci men Type: BLOOD SPECIMENOrdering Facility: [facility] Address: [address] [place] [address] Performed By: #### 5 7021-8 ####[facility] MILLPEWAUKEENCLIA [id number] [address] LABCLIA [id number] [place] [address] [place] Polychromasia LM Ql (Bld) Slight Normal [facility] Comment on above: Order Comment: Speci men Type: BLOOD SPECIMENOrdering Facility: [facility] Address: [address] [place] [address] Performed By: #### 5 7021-8 ####[facility] MILLWNCLIA [id number] [address] LABCLIA [id number] [address] [address] [place] RBC (Bld) [#/Vol] 2.98 10*6/uL Low 3.90-5.20 [facility] Comment on above: Order Comment: Speci men Type: BLOOD SPECIMENOrdering Facility: [facility] Address: [address] [place] [address] Performed By: #### 5 7021-8 ####[facility] MILLWNCLIA [id number] [address] LABCLIA [id number] [place] [address] [place] RBC FRAGMENTS Few Abnormal None Seen [facility] Comment on above: Order Comment: Speci men Type: BLOOD SPECIMENOrdering Facility: [facility] Address: [address] [place] [address] Performed By: #### 5 7021-8 ####[facility] PLACIDNCLIA [id number] [address] LABCLIA [id number] [address] [place] RED CELL MORPH Reviewed: see result s of individual morphologies Normal [facility] Comment on above: Order Comment: Speci men Type: BLOOD SPECIMENOrdering Facility: [facility] Address: [address] [place] [address] Performed By: #### 5 7021-8 ####[facility] MILLWNCLIA [id number] [address] LABCLIA [id number] [address] [address] [place] WBC (Bld) [#/Vol] 2.20 10*3/uL Low 3.70-11.00 [facility] Comment on above: Order Comment: Speci men Type: BLOOD SPECIMENOrdering Facility: [facility] Address: [address] [place] [address] Performed By: #### 5 7021-8 ####[facility] RACHELLE [facility] HOSPITALNCLIA [id number] [place] [address] [place] [facility] LABCLIA [id number] [place] [address] [place] CNOVSPon 06-15-2024 CNOVSP Normal [facility] Cancer Ag15-3 SerPl-aCncon 0 06-15-2024 Cancer Ag 15-3 Qn 173.0 U/mL High <26.0 [facility] Comment on above: Order Comment: Speci men Type: BLOOD SPECIMENOrdering Facility: [facility] Address: [address] [place] [address] Result Comment: The CA 15-3 test methodology used is the Electrochemiluminescence Immunoassay by [employer]. Results obtained with different methods or kits cannot be used interchangeably.[facility] will discontinue CA 27.29 testing effective 08/09/2024, with CA 15-3 as its replacement. In preparation for the discontinuation, CA 15-3 testing in parallel was conducted with CA 27.29 to establish a new baseline. Performed By: #### 6 875-9 ####[facility] LABCLIA [id number] [place] [address] [place] Comprehensive metabolic 2000 panelon 06-15-2024 Albumin [Mass/Vol] 4.1 g/dL Normal 3.9-4.9 [facility] Comment on above: Order Comment: Speci men Type: BLOOD SPECIMENOrdering Facility: [facility] Address: [address] [place] [address] Performed By: #### 2 4323-8 ####[facility] RACHELLE MILLTOWNCLIA [id number] [place] [address] [place] ALP [Catalytic activity/Vol] 85 U/L Normal 34-123 [facility] Comment on above: Order Comment: Speci men Type: BLOOD SPECIMENOrdering Facility: [facility] Address: [address] [place] [address] Performed By: #### 2 4323-8 ####[facility] MILLTOWNCLIA [id number] [place] [address] [place] ALT [Catalytic activity/Vol] 12 U/L Normal 7-38 [facility] Comment on above: Order Comment: Speci men Type: BLOOD SPECIMENOrdering Facility: [facility] Address: [address] [place] [address] Performed By: #### 2 4323-8 ####[facility] PLACIDNCLIA [id number] [place] [address] [place] Anion gap [Moles/Vol] 9 mmol/L Normal 8-15 [facility] Comment on above: Order Comment: Speci men Type: BLOOD SPECIMENOrdering Facility: [facility] Address: [address] [place] [address] Performed By: #### 2 4323-8 ####[facility] CENTERWNCLIA [id number] [place] [address] [place] AST [Catalytic activity/Vol] 19 U/L Normal 13-35 [facility] Comment on above: Order Comment: Speci men Type: BLOOD SPECIMENOrdering Facility: [facility] Address: [address] [place] [address] Performed By: #### 2 4323-8 ####[facility] CENTERWNCLIA [id number] [place] [address] [place] Bilirubin [Mass/Vol] 0.4 mg/dL Normal 0.2-1.3 [facility] Comment on above: Order Comment: Speci men Type: BLOOD SPECIMENOrdering Facility: [facility] Address: [address] [place] [address] Performed By: #### 2 4323-8 ####[facility] PLACIDNCLIA [id number] [place] [address] [place] Calcium [Mass/Vol] 9.9 mg/dL Normal 8.5-10.2 [facility] Comment on above: Order Comment: Speci men Type: BLOOD SPECIMENOrdering Facility: [facility] Address: [address] [place] [address] Performed By: #### 2 4323-8 ####[facility] PLACIDNCA [id number] [place] [address] [place] Chloride [Moles/Vol] 101 mmol/L Normal 98-107 [facility] Comment on above: Order Comment: Speci men Type: BLOOD SPECIMENOrdering Facility: [facility] Address: [address] [place] [address] Performed By: #### 2 4323-8 ####[facility]ITALA [id number] [place] [address] [place] CO2 [Moles/Vol] 29 mmol/L Normal 22-30 [facility] Comment on above: Order Comment: Speci men Type: BLOOD SPECIMENOrdering Facility: [facility] Address: [address] [place] [address] Performed By: #### 2 4323-8 ####[facility] PLACIDNCA [id number] [place] [address] [place] Creatinine [Mass/Vol] 0.99 mg/dL High 0.58-0.96 [facility] Comment on above: Order Comment: Speci men Type: BLOOD SPECIMENOrdering Facility: [facility] Address: [address] [place], [place] [address] Performed By: #### 2 4323-8 ####[facility] PLACIDNCLI [id number] [place] [address] [place] Creatinine and Glomerular filtration rate.predicted panel (S/P/Bld) 59 mL/min/1.73m??? Low >=60 [facility] Comment on above: Order Comment: Gianna corbett Type: BLOOD SPECIMENOrdering Facility: [facility] Address: [address] [place] [address] Result Comment: Nhan mated Glomerular Filtration Rate (eGFR) is calculated using the 2020 CKD-EPI creatinine equation. This equation utilizes serum creatinine, sex, and age as parameters. The creatinine assay has traceable calibration to isotope dilution-mass spectrometry. Refer to KDIGO guidelines for clinical interpretation. In patients with unstable renal function, e.g. those with acute kidney injury, the eGFR may not accurately reflect actual GFR. Performed By: #### 2 4323-8 ####[facility] [id number] [place] [address] [place] Glucose [Mass/Vol] 91 mg/dL Normal 74-99 [facility] Comment on above: Order Comment: Gianna corbett Type: BLOOD SPECIMENOrdering Facility: [facility] Address: [address] [place] [address] Result Comment: The [place] Diabetes Association (ADA) provides guidance for cutoff values for fasting glucose and random glucose. The ADA defines fasting as no caloric intake for at least 8 hours. Fasting plasma glucose results between 100 to 125 mg/dL indicate increased risk for diabetes (prediabetes).Fasting plasma glucose results greater than or equal to 126 mg/dL meet the criteria for diagnosis of diabetes. In the absence of unequivocal hyperglycemia, results should be confirmed by repeat testing. In a patient with classic symptoms of hyperglycemia or hyperglycemic crisis, random plasma glucose results greater than or equal to 200 mg/dL meet the criteria for diagnosis of diabetes.Reference: Standards of Medical Care in Diabetes 2016, [place] [employer] Association. Diabetes Care. 2016.39(Suppl 1). Performed By: #### 2 4323-8 ####[facility] PLACIDNCLIA [id number] [place] [address] [place] Potassium [Moles/Vol] 4.1 mmol/L Normal 3.7-5.1 [facility] Comment on above: Order Comment: Speci men Type: BLOOD SPECIMENOrdering Facility: [facility] Address: [address] [place] [address] Performed By: #### 2 4323-8 ####[facility] MILLWNCLIA [id number] [place] [address] [place] Protein [Mass/Vol] 6.8 g/dL Normal 6.3-8.0 [facility] Comment on above: Order Comment: Speci men Type: BLOOD SPECIMENOrdering Facility: [facility] Address: [address] [place] [address] Performed By: #### 2 4323-8 ####[facility] PLACIDDHEERAJLIA [id number] [place] [address] [place] Sodium [Moles/Vol] 139 mmol/L Normal 136-144 [facility] Comment on above: Order Comment: Speci men Type: BLOOD SPECIMENOrdering Facility: [facility] Address: [address] [place] [address] Performed By: #### 2 4323-8 ####[facility] PLACIDNCLIA [id number] [place] [address] [place] Urea nitrogen [Mass/Vol] 18 mg/dL Normal 7-21 [facility] Comment on above: Order Comment: Speci men Type: BLOOD SPECIMENOrdering Facility: [facility] Address: [address] [place] [address] Performed By: #### 2 4323-8 ####[facility] CENTERWNCLIA [id number] [place] [address] [place] CA 27.29on 05-18-2024 Cancer Ag 27-29 Qn 261.9 [arb'U]/mL High <38.6 [facility] Comment on above: Order Comment: Speci men Type: BLOOD SPECIMENOrdering Facility: [facility] Address: [address] [place] [address] Result Comment: The CA27.29 test was performed using the [employer] Centaur XP chemiluminometric immunoassay method. Results obtained with different assay methods or kits cannot be used interchangeably.[facility] will discontinue CA 27.29 testing effective 08/09/2024, with CA 15-3 as its replacement. In preparation for the discontinuation, CA 15-3 testing in parallel was conducted with CA 27.29 to establish a new baseline. Performed By: #### L [id number] ####[facility] LABCLIA [id number] [place] [address] [place] CBC W Auto Differential pane l (Bld)on 05-18-2024 Basophils (Bld) [#/Vol] 0.10 10*3/uL Normal <0.11 [facility] Comment on above: Order Comment: Speci men Type: BLOOD SPECIMENOrdering Facility: [facility] Address: [address] [place] [address] Performed By: #### 5 7021-8 ####[facility] [id number] [place] [address] [place] Basophils/100 WBC (Bld) 1.2 % Normal [facility] Comment on above: Order Comment: Speci men Type: BLOOD SPECIMENOrdering Facility: [facility] Address: [address] [place] [address] Performed By: #### 5 7021-8 ####[facility] [id number] [place] [address] [place] Differential cell count method Nom (Bld) Auto Normal [facility] Comment on above: Order Comment: Speci men Type: BLOOD SPECIMENOrdering Facility: [facility] Address: [address] [place] [address] Performed By: #### 5 7021-8 ####[facility] MILLWNCLIA [id number] [place] [address] [place] Eosinophils (Bld) [#/Vol] 0.50 10*3/uL High <0.46 [facility] Comment on above: Order Comment: Speci men Type: BLOOD SPECIMENOrdering Facility: [facility] Address: [address] [place] [address] Performed By: #### 5 7021-8 ####[facility]ALTHLIA [id number] [place] [address] [place] Eosinophils/100 WBC (Bld) 5.9 % Normal [facility] Comment on above: Order Comment: Speci men Type: BLOOD SPECIMENOrdering Facility: [facility] Address: [address] [place] [address] Performed By: #### 5 7021-8 ####[facility]ALTHLIA [id number] [place] [address] [place] Erythrocyte distribution width (RBC) [Ratio] 12.9 % Normal 11.5-15.0 [facility] Comment on above: Order Comment: Speci men Type: BLOOD SPECIMENOrdering Facility: [facility] Address: [address] [place] [address] Performed By: #### 5 7021-8 ####[facility]ALTHL[facility] [id number] [place] [address] [place] Hematocrit (Bld) [Volume fraction] 34.1 % Low 36.0-46.0 [facility] Comment on above: Order Comment: Speci men Type: BLOOD SPECIMENOrdering Facility: [facility] Address: [address] [place] [address] Performed By: #### 5 7021-8 ####[facility] PLACIDNCLIA [id number] [place] [id number] [place] Hemoglobin (Bld) [Mass/Vol] 11.3 g/dL Low 11.5-15.5 [facility] Comment on above: Order Comment: Speci men Type: BLOOD SPECIMENOrdering Facility: [facility] Address: [address] [place] [address] Performed By: #### 5 7021-8 ####[facility] PLACIDDHEERAJLIA [id number] [place] [address] [place] Immature granulocytes (Bld) [#/Vol] 0.12 10*3/uL High <0.10 [facility] Comment on above: Order Comment: Speci men Type: BLOOD SPECIMENOrdering Facility: [facility] Address: [address] [place] [address] Performed By: #### 5 7021-8 ####[facility]ITALA [id number] [place] [address] [place] Immature granulocytes/100 WBC (Bld) 1.4 % Normal [facility] Comment on above: Order Comment: Speci men Type: BLOOD SPECIMENOrdering Facility: [facility] Address: [address] [place] [address] Performed By: #### 5 7021-8 ####[facility]ALTHLIA [id number] [place] [address] [place] Lymphocytes (Bld) [#/Vol] 0.74 10*3/uL Low 1.00-4.00 [facility] Comment on above: Order Comment: Speci men Type: BLOOD SPECIMENOrdering Facility: [facility] Address: [address] [place] [address] Performed By: #### 5 7021-8 ####[facility] PLACIDNCLIA [id number] [place] [address] [place] Lymphocytes/100 WBC (Bld) 8.8 % Normal [facility] Comment on above: Order Comment: Speci men Type: BLOOD SPECIMENOrdering Facility: [facility] Address: [address] [place] [address] Performed By: #### 5 7021-8 ####[facility] LIANNA [id number] [place] [address] [place] MCH (RBC) [Entitic mass] 36.0 pg High 26.0-34.0 [facility] Comment on above: Order Comment: Speci men Type: BLOOD SPECIMENOrdering Facility: [facility] Address: [address] [place] [address] Performed By: #### 5 7021-8 ####[facility] PLACIDNCABRAHAM [id number] [place] [address] [place] MCHC (RBC) [Mass/Vol] 33.1 g/dL Normal 30.5-36.0 [facility] Comment on above: Order Comment: Speci men Type: BLOOD SPECIMENOrdering Facility: [facility] Address: [address] [place] [address] Performed By: #### 5 7021-8 ####[facility] PLACIDNCA [id number] [place] [address] [place] MCV (RBC) [Entitic vol] 108.6 fL High 80.0-100.0 [facility] Comment on above: Order Comment: Speci men Type: BLOOD SPECIMENOrdering Facility: [facility] Address: [address] [place] [address] Performed By: #### 5 7021-8 ####[facility] PLACIDNCA [id number] [place] [address] [place] Monocytes (Bld) [#/Vol] 0.91 10*3/uL High <0.87 [facility] Comment on above: Order Comment: Speci men Type: BLOOD SPECIMENOrdering Facility: [facility] Address: [address] [place] [address] Performed By: #### 5 7021-8 ####[facility] MILLWNCLIA [id number] [place] [address] [place] Monocytes/100 WBC (Bld) 10.8 % Normal [facility] Comment on above: Order Comment: Speci men Type: BLOOD SPECIMENOrdering Facility: [facility] Address: [address] [place] [address] Performed By: #### 5 7021-8 ####[facility] PLACIDNCLIA [id number] [place] [address] [place] Neutrophils (Bld) [#/Vol] 6.04 10*3/uL Normal 1.45-7.50 [facility] Comment on above: Order Comment: Speci men Type: BLOOD SPECIMENOrdering Facility: [facility] Address: [address] [place] [address] Performed By: #### 5 7021-8 ####[facility]ALTHLIA [id number] [place] [address] [place] Neutrophils/100 WBC (Bld) 71.9 % Normal [facility] Comment on above: Order Comment: Speci men Type: BLOOD SPECIMENOrdering Facility: [facility] Address: [address] [place] [address] Performed By: #### 5 7021-8 ####[facility]ACIDNCLIA [id number] [place] [address] [place] Nucleated RBC (Bld) [#/Vol] 10*3/uL Normal <0.01 [facility] Comment on above: Order Comment: Speci men Type: BLOOD SPECIMENOrdering Facility: [facility] Address: [address] [place] [address] Performed By: #### 5 7021-8 ####[facility] PLACIDNCLIA [id number] [place] [address] [place] Nucleated RBC/100 WBC (Bld) [Ratio] 0.0 /100 WBC Normal [facility] Comment on above: Order Comment: Speci men Type: BLOOD SPECIMENOrdering Facility: [facility] Address: [address] [place] [address] Performed By: #### 5 7021-8 ####[facility] PLACIDNCGEOVANIA [id number] [place] [address] [place] Platelet mean volume (Bld) [Entitic vol] 10.2 fL Normal 9.0-12.7 [facility] Comment on above: Order Comment: Speci men Type: BLOOD SPECIMENOrdering Facility: [facility] Address: [address] [place] [address] Performed By: #### 5 7021-8 ####[facility] PLACIDNCA [id number] [place] [address] [place] Platelets (Bld) [#/Vol] 316 10*3/uL Normal 150-400 [facility] Comment on above: Order Comment: Speci men Type: BLOOD SPECIMENOrdering Facility: [facility] Address: [address] [place] [address] Performed By: #### 5 7021-8 ####[facility] PLACIDNCLIA [id number] [place] [address] [place] RBC (Bld) [#/Vol] 3.14 10*6/uL Low 3.90-5.20 [facility] Comment on above: Order Comment: Speci men Type: BLOOD SPECIMENOrdering Facility: [facility] Address: [address] [place] [address] Performed By: #### 5 7021-8 ####[facility] PLACIDNCLIA [id number] [place] [address] [place] WBC (Bld) [#/Vol] 8.41 10*3/uL Normal 3.70-11.00 [facility] Comment on above: Order Comment: Speci men Type: BLOOD SPECIMENOrdering Facility: [facility] Address: [address] [place], [place] [address] Performed By: #### 5 7021-8 ####[facility]IDNCMOUNTAIN [facility] [id number] [place] [address] [place] CNPNon 05-18-2024 CNPN Normal [facility] Cancer Ag15-3 SerPl-aCncon 0 05-18-2024 Cancer Ag 15-3 Qn 125.0 U/mL High <26.0 [facility] Comment on above: Order Comment: Speci men Type: BLOOD SPECIMENOrdering Facility: [facility] Address: [address] [place] [address] Result Comment: The CA 15-3 test methodology used is the Electrochemiluminescence Immunoassay by [employer]. Results obtained with different methods or kits cannot be used interchangeably.[facility] will discontinue CA 27.29 testing effective 08/09/2024, with CA 15-3 as its replacement. In preparation for the discontinuation, CA 15-3 testing in parallel was conducted with CA 27.29 to establish a new baseline. Performed By: #### 6 875-9 ####[facility] LABORATORYCLIA [id number] [place] [address] [place] Comprehensive metabolic 2000 panelon 05-18-2024 Albumin [Mass/Vol] 4.1 g/dL Normal 3.9-4.9 [facility] Comment on above: Order Comment: Speci men Type: BLOOD SPECIMENOrdering Facility: [facility] Address: [address] [place] [address] Performed By: #### 2 4323-8 ####[facility] [id number] [place] [address] [place] ALP [Catalytic activity/Vol] 91 U/L Normal 34-123 [facility] Comment on above: Order Comment: Speci men Type: BLOOD SPECIMENOrdering Facility: [facility] Address: [address] [place] [address] Performed By: #### 2 4323-8 ####[facility] MILLWNCLIA [id number] [place] [address] [place] ALT [Catalytic activity/Vol] 13 U/L Normal 7-38 [facility] Comment on above: Order Comment: Speci men Type: BLOOD SPECIMENOrdering Facility: [facility] Address: [address] [place] [address] Performed By: #### 2 4323-8 ####[facility] PLACIDNCLIA [id number] [place] [address] [place] Anion gap [Moles/Vol] 9 mmol/L Normal 8-15 [facility] Comment on above: Order Comment: Speci men Type: BLOOD SPECIMENOrdering Facility: [facility] Address: [address] [place] [address] Performed By: #### 2 4323-8 ####[facility]ALTHLIA [id number] [place] [address] [place] AST [Catalytic activity/Vol] 21 U/L Normal 13-35 [facility] Comment on above: Order Comment: Speci men Type: BLOOD SPECIMENOrdering Facility: [facility] Address: [address] [place] [address] Performed By: #### 2 4323-8 ####[facility] PLACIDNCLIA [id number] [place] [address] [place] Bilirubin [Mass/Vol] 0.4 mg/dL Normal 0.2-1.3 [facility] Comment on above: Order Comment: Speci men Type: BLOOD SPECIMENOrdering Facility: [facility] Address: [address] [place] [address] Performed By: #### 2 4323-8 ####[facility] PLACIDNCLIA [id number] [place] [address] [place] Calcium [Mass/Vol] 10.3 mg/dL High 8.5-10.2 [facility] Comment on above: Order Comment: Speci men Type: BLOOD SPECIMENOrdering Facility: [facility] Address: [address] [place] [address] Performed By: #### 2 4323-8 ####[facility]ENTERWDHEERAJLIA [id number] [place] [address] [place] Chloride [Moles/Vol] 101 mmol/L Normal 98-107 [facility] Comment on above: Order Comment: Speci men Type: BLOOD SPECIMENOrdering Facility: [facility] Address: [address] [place] [address] Performed By: #### 2 4323-8 ####[facility] PLACIDDHEERAJLIA [id number] [place] [address] [place] CO2 [Moles/Vol] 29 mmol/L Normal 22-30 [facility] Comment on above: Order Comment: Speci men Type: BLOOD SPECIMENOrdering Facility: [facility] Address: [address] [place] [address] Performed By: #### 2 4323-8 ####[facility] PLACIDNCLIA [id number] [place] [address] [place] Creatinine [Mass/Vol] 0.81 mg/dL Normal 0.58-0.96 [facility] Comment on above: Order Comment: Speci men Type: BLOOD SPECIMENOrdering Facility: [facility] Address: [address] [place] [address] Performed By: #### 2 4323-8 ####[facility] HEALTHLIA [id number] [place] [address] [place] Creatinine and Glomerular filtration rate.predicted panel (S/P/Bld) 75 mL/min/1.73m??? Normal >=60 [facility] Comment on above: Order Comment: Gianna corbett Type: BLOOD SPECIMENOrdering Facility: [facility] Address: [address] [place] [address] Result Comment: Nhan mated Glomerular Filtration Rate (eGFR) is calculated using the 2020 CKD-EPI creatinine equation. This equation utilizes serum creatinine, sex, and age as parameters. The creatinine assay has traceable calibration to isotope dilution-mass spectrometry. Refer to KDIGO guidelines for clinical interpretation. In patients with unstable renal function, e.g. those with acute kidney injury, the eGFR may not accurately reflect actual GFR. Performed By: #### 2 4323-8 ####[facility] [id number] [place] [address] [place] Glucose [Mass/Vol] 82 mg/dL Normal 74-99 [facility] Comment on above: Order Comment: Gianna corbett Type: BLOOD SPECIMENOrdering Facility: [facility] Address: [address] [place] [address] Result Comment: The [place] Diabetes Association (ADA) provides guidance for cutoff values for fasting glucose and random glucose. The ADA defines fasting as no caloric intake for at least 8 hours. Fasting plasma glucose results between 100 to 125 mg/dL indicate increased risk for diabetes (prediabetes).Fasting plasma glucose results greater than or equal to 126 mg/dL meet the criteria for diagnosis of diabetes. In the absence of unequivocal hyperglycemia, results should be confirmed by repeat testing. In a patient with classic symptoms of hyperglycemia or hyperglycemic crisis, random plasma glucose results greater than or equal to 200 mg/dL meet the criteria for diagnosis of diabetes.Reference: Standards of Medical Care in Diabetes 2016, [place] Diabetes Association. Diabetes Care. 2016.39(Suppl 1). Performed By: #### 2 4323-8 ####[facility] [id number] [place] [address] [place] Potassium [Moles/Vol] 4.1 mmol/L Normal 3.7-5.1 [facility] Comment on above: Order Comment: Gianna corbett Type: BLOOD SPECIMENOrdering Facility: [facility] Address: [address] [place] [address] Performed By: #### 2 4323-8 ####[facility] RAJINDERWNCLIA [id number] [place] [address] [place] Protein [Mass/Vol] 7.1 g/dL Normal 6.3-8.0 [facility] Comment on above: Order Comment: Speci men Type: BLOOD SPECIMENOrdering Facility: [facility] Address: [address] [place] [address] Performed By: #### 2 4323-8 ####[facility] PLACIDNCLIA [id number] [place] [address] [place] Sodium [Moles/Vol] 139 mmol/L Normal 136-144 [facility] Comment on above: Order Comment: Speci men Type: BLOOD SPECIMENOrdering Facility: [facility] Address: [address] [place] [address] Performed By: #### 2 4323-8 ####[facility] HEALTHLIA [id number] [place] [address] [place] Urea nitrogen [Mass/Vol] 14 mg/dL Normal 7-21 [facility] Comment on above: Order Comment: Speci men Type: BLOOD SPECIMENOrdering Facility: [facility] Address: [address] [place] [address] Performed By: #### 2 4323-8 ####[facility] HEALTHLIA [id number] [place] [address] [place] ABD/PEL WO IVCONon 2024 CT ABD/PEL WO IVCON Normal [facility] CT CHEST WO IVCONon 05-11-19 CT CHEST WO IVCON Normal [facility] CNPNon 05-05-2024 CNPN Normal [facility] CBC W Auto Differential pane l (Bld)on 04-20-2024 Basophils (Bld) [#/Vol] 0.07 10*3/uL Normal <0.11 [facility] Comment on above: Order Comment: Speci men Type: BLOOD SPECIMENOrdering Facility: [facility] Address: [address] [place] [address] Performed By: #### 5 7021-8 ####[facility] MILLTOWNCLIA [id number] [address] STATES [facility] LABCLIA [id number] [place] [address] [place] Basophils/100 WBC (Bld) 2.1 % Normal [facility] Comment on above: Order Comment: Speci men Type: BLOOD SPECIMENOrdering Facility: [facility] Address: [address] [place] [address] Performed By: #### 5 7021-8 ####[facility] MILLWNCLIA [id number] [place] [address] [place] [facility] LABCLIA [id number] [place] [address] [place] Dacrocytes LM Ql (Bld) Few Normal [facility] Comment on above: Order Comment: Speci men Type: BLOOD SPECIMENOrdering Facility: [facility] Address: [address] [place] [address] Performed By: #### 5 7021-8 ####[facility] CENTERWNCLIA [id number] [address] STATES [facility] LABCLIA [id number] [place] [address] [place] Differential cell count method Nom (Bld) Auto Normal [facility] Comment on above: Order Comment: Speci men Type: BLOOD SPECIMENOrdering Facility: [facility] Address: [address] [place] [address] Performed By: #### 5 7021-8 ####[facility] MILLTOWNCLIA [id number] [address] LABCLIA [id number] [place] [address] [place] Eosinophils (Bld) [#/Vol] 0.05 10*3/uL Normal <0.46 [facility] Comment on above: Order Comment: Speci men Type: BLOOD SPECIMENOrdering Facility: [facility] Address: [address] [place] [address] Performed By: #### 5 7021-8 ####[facility] CENTERWNCLIA [id number] [address] LABCLIA [id number] [place] [address] [place] Eosinophils/100 WBC (Bld) 1.5 % Normal [facility] Comment on above: Order Comment: Speci men Type: BLOOD SPECIMENOrdering Facility: [facility] Address: [address] [place] [address] Performed By: #### 5 7021-8 ####[facility]ALTHLIA [id number] [address] LABCLIA [id number] [place] [address] [place] Erythrocyte distribution width (RBC) [Ratio] 14.3 % Normal 11.5-15.0 [facility] Comment on above: Order Comment: Speci men Type: BLOOD SPECIMENOrdering Facility: [facility] Address: [address] [place], [place] [address] Performed By: #### 5 7021-8 ####[facility] CENTERWNCLIA [id number] [address] LABCLIA [id number] [place] [address] [place] Hematocrit (Bld) [Volume fraction] 29.8 % Low 36.0-46.0 [facility] Comment on above: Order Comment: Speci men Type: BLOOD SPECIMENOrdering Facility: [facility] Address: [address] [place] [address] Performed By: #### 5 7021-8 ####[facility]ALTHL[facility] [id number] [address] LABCLIA [id number] [place] [address] [place] Hemoglobin (Bld) [Mass/Vol] 10.0 g/dL Low 11.5-15.5 [facility] Comment on above: Order Comment: Speci men Type: BLOOD SPECIMENOrdering Facility: [facility] Address: [address] [place] [address] Performed By: #### 5 7021-8 ####[facility]ITALA [id number] [address] LABCLIA [id number] [place] [address] [place] Immature granulocytes (Bld) [#/Vol] 0.03 10*3/uL Normal <0.10 [facility] Comment on above: Order Comment: Speci men Type: BLOOD SPECIMENOrdering Facility: [facility] Address: [address] [place] [address] Performed By: #### 5 7021-8 ####[facility] HEALTHLIA [id number] [address] LABCLIA [id number] [place] [address] [place] Immature granulocytes/100 WBC (Bld) 0.9 % Normal [facility] Comment on above: Order Comment: Speci men Type: BLOOD SPECIMENOrdering Facility: [facility] Address: [address] [place] [address] Performed By: #### 5 7021-8 ####[facility] MILLTOWNCLIA [id number] [address] LABCLIA [id number] [place] [address] [place] Lymphocytes (Bld) [#/Vol] 0.36 10*3/uL Low 1.00-4.00 [facility] Comment on above: Order Comment: Speci men Type: BLOOD SPECIMENOrdering Facility: [facility] Address: [address] [place] [address] Performed By: #### 5 7021-8 ####[facility] PLACIDNCLIA [id number] [address] LABCLIA [id number] [place] [address] [place] Lymphocytes/100 WBC (Bld) 11.0 % Normal [facility] Comment on above: Order Comment: Speci men Type: BLOOD SPECIMENOrdering Facility: [facility] Address: [address] [place] [address] Performed By: #### 5 7021-8 ####[facility] PLACIDNCLIA [id number] [address] LABCLIA [id number] [place] [address] [place] MCH (RBC) [Entitic mass] 38.2 pg High 26.0-34.0 [facility] Comment on above: Order Comment: Speci men Type: BLOOD SPECIMENOrdering Facility: [facility] Address: [address] [place] [address] Performed By: #### 5 7021-8 ####[facility] CENTERWNCLIA [id number] [address] [facility] LABCLIA [id number] [place] [address] [place] MCHC (RBC) [Mass/Vol] 33.6 g/dL Normal 30.5-36.0 [facility] Comment on above: Order Comment: Speci men Type: BLOOD SPECIMENOrdering Facility: [facility] Address: [address] [place] [address] Performed By: #### 5 7021-8 ####[facility] MILLTOWNCLIA [id number] [address] LABCLIA [id number] [place] [address] [place] MCV (RBC) [Entitic vol] 113.7 fL High 80.0-100.0 [facility] Comment on above: Order Comment: Speci men Type: BLOOD SPECIMENOrdering Facility: [facility] Address: [address] [place] [address] Performed By: #### 5 7021-8 ####[facility] MILLWNCLIA [id number] [address] LABCLIA [id number] [place] [address] [place] Monocytes (Bld) [#/Vol] 0.48 10*3/uL Normal <0.87 [facility] Comment on above: Order Comment: Speci men Type: BLOOD SPECIMENOrdering Facility: [facility] Address: [address] [place] [address] Performed By: #### 5 7021-8 ####[facility] MILLTOWNCLIA [id number] [address] LABCLIA [id number] [place] [address] [place] Monocytes/100 WBC (Bld) 14.7 % Normal [facility] Comment on above: Order Comment: Speci men Type: BLOOD SPECIMENOrdering Facility: [facility] Address: [address] [place] [address] Performed By: #### 5 7021-8 ####[facility] RAJINDERWNCLIA [id number] [address] LABCLIA [id number] [place] [address] [place] Neutrophils (Bld) [#/Vol] 2.27 10*3/uL Normal 1.45-7.50 [facility] Comment on above: Order Comment: Speci men Type: BLOOD SPECIMENOrdering Facility: [facility] Address: [address] [place] [address] Performed By: #### 5 7021-8 ####[facility] PLACIDNCLIA [id number] [address] LABCLIA [id number] [place] [address] [place] Neutrophils/100 WBC (Bld) 69.8 % Normal [facility] Comment on above: Order Comment: Speci men Type: BLOOD SPECIMENOrdering Facility: [facility] Address: [address] [place] [address] Performed By: #### 5 7021-8 ####[facility] PLACIDNCLIA [id number] [address] LABCLIA [id number] [place] [address] [place] Nucleated RBC (Bld) [#/Vol] 10*3/uL Normal <0.01 [facility] Comment on above: Order Comment: Speci men Type: BLOOD SPECIMENOrdering Facility: [facility] Address: [address] [place] [address] Performed By: #### 5 7021-8 ####[facility] MILLTOWNCLIA [id number] [address] LABCLIA [id number] [place] [address] [place] Nucleated RBC/100 WBC (Bld) [Ratio] 0.0 /100 WBC Normal [facility] Comment on above: Order Comment: Speci men Type: BLOOD SPECIMENOrdering Facility: [facility] Address: [address] [place] [address] Performed By: #### 5 7021-8 ####[facility] MILLWNCLIA [id number] [address] LABCLIA [id number] [place] [address] [place] Ovalocytes LM Ql (Bld) Few Normal [facility] Comment on above: Order Comment: Speci men Type: BLOOD SPECIMENOrdering Facility: [facility] Address: [address] [place] [address] Performed By: #### 5 7021-8 ####[facility] CENTERWNCLIA [id number] [address] LABCLIA [id number] [place] [address] [place] Platelet mean volume (Bld) [Entitic vol] 9.9 fL Normal 9.0-12.7 [facility] Comment on above: Order Comment: Speci men Type: BLOOD SPECIMENOrdering Facility: [facility] Address: [address] [place], [place] [address] Performed By: #### 5 7021-8 ####[facility] MILLTOWNCLIA [id number] [address] STATES [facility] LABCLIA [id number] [place] [address] [place] Platelets (Bld) [#/Vol] 189 10*3/uL Normal 150-400 [facility] Comment on above: Order Comment: Speci men Type: BLOOD SPECIMENOrdering Facility: [facility] Address: [address] [place] [address] Performed By: #### 5 7021-8 ####[facility] CENTERWNCLIA [id number] [place] [address] [place] [facility] LABCLIA [id number] [place] [address] [place] Platelets Estimate (Bld) [#/Vol] Adequate Normal [facility] Comment on above: Order Comment: Speci men Type: BLOOD SPECIMENOrdering Facility: [facility] Address: [address] [place] [address] Performed By: #### 5 7021-8 ####[facility] CENTERWNCLIA [id number] [place] [address] [place] [facility] LABCLIA [id number] [place] [address] [place] Polychromasia LM Ql (Bld) Slight Normal [facility] Comment on above: Order Comment: Speci men Type: BLOOD SPECIMENOrdering Facility: [facility] Address: [address] [place] [address] Performed By: #### 5 7021-8 ####[facility] MILLWNCLIA [id number] [place] [address] [place] [facility] LABCLIA [id number] [place] [address] [place] RBC (Bld) [#/Vol] 2.62 10*6/uL Low 3.90-5.20 [facility] Comment on above: Order Comment: Speci men Type: BLOOD SPECIMENOrdering Facility: [facility] Address: [address] [place] [address] Performed By: #### 5 7021-8 ####[facility] MILLTOWNCLIA [id number] [address] LABCLIA [id number] [place] [address] [place] RBC FRAGMENTS Few Abnormal None Seen [facility] Comment on above: Order Comment: Speci men Type: BLOOD SPECIMENOrdering Facility: [facility] Address: [address] [place] [address] Performed By: #### 5 7021-8 ####[facility] MILLWNCLIA [id number] [address] LABCLIA [id number] [place] [address] [place] RED CELL MORPH Reviewed: see result s of individual morphologies Normal [facility] Comment on above: Order Comment: Speci men Type: BLOOD SPECIMENOrdering Facility: [facility] Address: [address] [place] [address] Performed By: #### 5 7021-8 ####[facility] CENTERWNCLIA [id number] [address] LABCLIA [id number] [place] [address] [place] WBC (Bld) [#/Vol] 3.26 10*3/uL Low 3.70-11.00 [facility] Comment on above: Order Comment: Speci men Type: BLOOD SPECIMENOrdering Facility: [facility] Address: [address] [place] [address] Performed By: #### 5 7021-8 ####[facility] MILLTOWNCLIA [id number] [address] LABCLIA [id number] [address] [address] [place] CNPNon 04-20-2024 CNPN Normal [facility] Cancer Ag-29 SerPl-aCncon 04-20-2024 Cancer Ag Qn 193.7 [arb'U]/mL High <38.6 [facility] Comment on above: Order Comment: Speci men Type: BLOOD SPECIMENOrdering Facility: [facility] Address: [address] [place] [address] Result Comment: The CA27.29 test was performed using the [employer] Arachnoaur XP chemiluminometric immunoassay method. Results obtained with different assay methods or kits cannot be used interchangeably. Performed By: #### 1 7842-6 ####[facility] LABCLIA [id number] [address] [address] [place] Comprehensive metabolic 2000 panelon 04-20-2024 Albumin [Mass/Vol] 4.1 g/dL Normal 3.9-4.9 [facility] Comment on above: Order Comment: Speci men Type: BLOOD SPECIMENOrdering Facility: [facility] Address: [address] [place] [address] Performed By: #### 2 4323-8 ####[facility]ACIDSUNDAY [id number] [place] [address] [place] ALP [Catalytic activity/Vol] 87 U/L Normal 34-123 [facility] Comment on above: Order Comment: Speci men Type: BLOOD SPECIMENOrdering Facility: [facility] Address: [address] [place] [address] Performed By: #### 2 4323-8 ####[facility]ALTHGEOVANIA [id number] [place] [address] [place] ALT [Catalytic activity/Vol] 10 U/L Normal 7-38 [facility] Comment on above: Order Comment: Speci men Type: BLOOD SPECIMENOrdering Facility: [facility] Address: [address] [place] [address] Performed By: #### 2 4323-8 ####[facility] RACHELLE MILLTOWNCLIA [id number] [place] [address] [place] Anion gap [Moles/Vol] 9 mmol/L Normal 8-15 [facility] Comment on above: Order Comment: Speci men Type: BLOOD SPECIMENOrdering Facility: [facility] Address: [address] [place] [address] Performed By: #### 2 4323-8 ####[facility] MILLTOWNCLIA [id number] [place] [address] [place] AST [Catalytic activity/Vol] 20 U/L Normal 13-35 [facility] Comment on above: Order Comment: Speci men Type: BLOOD SPECIMENOrdering Facility: [facility] Address: [address] [place] [address] Performed By: #### 2 4323-8 ####[facility] MILLTOWNCLIA [id number] [place] [address] [place] Bilirubin [Mass/Vol] 0.4 mg/dL Normal 0.2-1.3 [facility] Comment on above: Order Comment: Speci men Type: BLOOD SPECIMENOrdering Facility: [facility] Address: [address] [place] [address] Performed By: #### 2 4323-8 ####[facility] MILLTOWNCLIA [id number] [place] [address] [place] Calcium [Mass/Vol] 9.8 mg/dL Normal 8.5-10.2 [facility] Comment on above: Order Comment: Speci men Type: BLOOD SPECIMENOrdering Facility: [facility] Address: [address] [place] [address] Performed By: #### 2 4323-8 ####[facility] MILLTOWNCLIA [id number] [place] [address] [place] Chloride [Moles/Vol] 104 mmol/L Normal 98-107 [facility] Comment on above: Order Comment: Speci men Type: BLOOD SPECIMENOrdering Facility: [facility] Address: [address] [place] [address] Performed By: #### 2 4323-8 ####[facility] [id number] [place] [address] [place] CO2 [Moles/Vol] 26 mmol/L Normal 22-30 [facility] Comment on above: Order Comment: Speci men Type: BLOOD SPECIMENOrdering Facility: [facility] Address: [address] [place] [address] Performed By: #### 2 4323-8 ####[facility] [id number] [place] [address] [place] Creatinine [Mass/Vol] 0.79 mg/dL Normal 0.58-0.96 [facility] Comment on above: Order Comment: Speci men Type: BLOOD SPECIMENOrdering Facility: [facility] Address: [address] [place] [address] Performed By: #### 2 4323-8 ####[facility] [id number] [address] [facility] Creatinine and Glomerular filtration rate.predicted panel (S/P/Bld) 78 mL/min/1.73m??? Normal >=60 [facility] Comment on above: Order Comment: Speci men Type: BLOOD SPECIMENOrdering Facility: [facility] Address: [address] [place] [address] Result Comment: Nhan mated Glomerular Filtration Rate (eGFR) is calculated using the 2020 CKD-EPI creatinine equation. This equation utilizes serum creatinine, sex, and age as parameters. The creatinine assay has traceable calibration to isotope dilution-mass spectrometry. Refer to KDIGO guidelines for clinical interpretation. In patients with unstable renal function, e.g. those with acute kidney injury, the eGFR may not accurately reflect actual GFR. Performed By: #### 2 4323-8 ####[facility] RAJINDERWNCLIA [id number] [place] [address] [place] Glucose [Mass/Vol] 99 mg/dL Normal 74-99 [facility] Comment on above: Order Comment: Speci men Type: BLOOD SPECIMENOrdering Facility: [facility] Address: [address] [place], [place] [address] Result Comment: The [place] Diabetes Association (ADA) provides guidance for cutoff values for fasting glucose and random glucose. The ADA defines fasting as no caloric intake for at least 8 hours. Fasting plasma glucose results between 100 to 125 mg/dL indicate increased risk for diabetes (prediabetes).Fasting plasma glucose results greater than or equal to 126 mg/dL meet the criteria for diagnosis of diabetes. In the absence of unequivocal hyperglycemia, results should be confirmed by repeat testing. In a patient with classic symptoms of hyperglycemia or hyperglycemic crisis, random plasma glucose results greater than or equal to 200 mg/dL meet the criteria for diagnosis of diabetes.Reference: Standards of Medical Care in Diabetes 2016, [place] [employer]. Diabetes Care. 2016.39(Suppl 1). Performed By: #### 2 4323-8 ####[facility] [id number] [place] [address] [place] Potassium [Moles/Vol] 4.2 mmol/L Normal 3.7-5.1 [facility] Comment on above: Order Comment: Speci men Type: BLOOD SPECIMENOrdering Facility: [facility] Address: [address] [place] [address] Performed By: #### 2 4323-8 ####[facility] PLACIDNCLIA [id number] [place] [address] [place] Protein [Mass/Vol] 6.7 g/dL Normal 6.3-8.0 [facility] Comment on above: Order Comment: Speci men Type: BLOOD SPECIMENOrdering Facility: [facility] Address: [address] [place] [address] Performed By: #### 2 4323-8 ####[facility] MILLWNCLIA [id number] [place] [address] [place] Sodium [Moles/Vol] 139 mmol/L Normal 136-144 [facility] Comment on above: Order Comment: Speci men Type: BLOOD SPECIMENOrdering Facility: [facility] Address: [address] [place] [address] Performed By: #### 2 4323-8 ####[facility] PLACIDNCLIA [id number] [place] [address] [place] Urea nitrogen [Mass/Vol] 16 mg/dL Normal 7-21 [facility] Comment on above: Order Comment: Speci men Type: BLOOD SPECIMENOrdering Facility: [facility] Address: [address] [place] [address] Performed By: #### 2 4323-8 ####[facility] PLACIDNCLIA [id number] [place] [address] [place] CBC W Auto Differential pane l (Bld)on 03-22-2024 Basophils (Bld) [#/Vol] 0.05 10*3/uL Normal <0.11 [facility] Comment on above: Order Comment: Speci men Type: BLOOD SPECIMENOrdering Facility: [facility] Address: [address] [place] [address] Performed By: #### 5 7021-8 ####[facility]ENTERWNCLIA [id number] [place] [address] [place] Basophils/100 WBC (Bld) 2.3 % Normal [facility] Comment on above: Order Comment: Speci men Type: BLOOD SPECIMENOrdering Facility: [facility] Address: [address] [place] [address] Performed By: #### 5 7021-8 ####[facility] PLACIDNCLIA [id number] [place] [address] [place] Differential cell count method Nom (Bld) Auto Normal [facility] Comment on above: Order Comment: Speci men Type: BLOOD SPECIMENOrdering Facility: [facility] Address: [address] [place] [address] Performed By: #### 5 7021-8 ####[facility] CENTERWDHEERAJA [id number] [place] [address] [place] Eosinophils (Bld) [#/Vol] 0.05 10*3/uL Normal <0.46 [facility] Comment on above: Order Comment: Speci men Type: BLOOD SPECIMENOrdering Facility: [facility] Address: [address] [place] [address] Performed By: #### 5 7021-8 ####[facility] PLACIDDHEERAJMOUNTAIN WEST [facility] [id number] [place] [address] [place] Eosinophils/100 WBC (Bld) 2.3 % Normal [facility] Comment on above: Order Comment: Speci men Type: BLOOD SPECIMENOrdering Facility: [facility] Address: [address] [place] [address] Performed By: #### 5 7021-8 ####[facility] PLACIDNCGEOVANI [id number] [place] [address] [place] Erythrocyte distribution width (RBC) [Ratio] 14.5 % Normal 11.5-15.0 [facility] Comment on above: Order Comment: Speci men Type: BLOOD SPECIMENOrdering Facility: [facility] Address: [address] [place] [address] Performed By: #### 5 7021-8 ####[facility] PLACIDNCLI [id number] [place] [address] [place] Hematocrit (Bld) [Volume fraction] 29.4 % Low 36.0-46.0 [facility] Comment on above: Order Comment: Speci men Type: BLOOD SPECIMENOrdering Facility: [facility] Address: [address] [place] [address] Performed By: #### 5 7021-8 ####[facility]IDSUNDAY [id number] [place] [address] [place] Hemoglobin (Bld) [Mass/Vol] 10.0 g/dL Low 11.5-15.5 [facility] Comment on above: Order Comment: Speci men Type: BLOOD SPECIMENOrdering Facility: [facility] Address: [address] [place] [address] Performed By: #### 5 7021-8 ####[facility] [id number] [place] [address] [place] Immature granulocytes (Bld) [#/Vol] 10*3/uL Normal <0.10 [facility] Comment on above: Order Comment: Speci men Type: BLOOD SPECIMENOrdering Facility: [facility] Address: [address] [place] [address] Performed By: #### 5 7021-8 ####[facility] [id number] [place] [address] [place] Immature granulocytes/100 WBC (Bld) 0.9 % Normal [facility] Comment on above: Order Comment: Speci men Type: BLOOD SPECIMENOrdering Facility: [facility] Address: [address] [place] [address] Performed By: #### 5 7021-8 ####[facility]LI [id number] [place] [address] [place] Lymphocytes (Bld) [#/Vol] 0.29 10*3/uL Low 1.00-4.00 [facility] Comment on above: Order Comment: Speci men Type: BLOOD SPECIMENOrdering Facility: [facility] Address: [address] [place] [address] Performed By: #### 5 7021-8 ####[facility] RAJINDERGretelNCGEOVANIA [id number] [place] [address] [place] Lymphocytes/100 WBC (Bld) 13.2 % Normal [facility] Comment on above: Order Comment: Speci men Type: BLOOD SPECIMENOrdering Facility: [facility] Address: [address] [place] [address] Performed By: #### 5 7021-8 ####[facility]IDSUN[facility] [id number] [place] [address] [place] MCH (RBC) [Entitic mass] 38.0 pg High 26.0-34.0 [facility] Comment on above: Order Comment: Speci men Type: BLOOD SPECIMENOrdering Facility: [facility] Address: [address] [place] [address] Performed By: #### 5 7021-8 ####[facility] PLACIDDHEERAJHayley [id number] [place] [address] [place] MCHC (RBC) [Mass/Vol] 34.0 g/dL Normal 30.5-36.0 [facility] Comment on above: Order Comment: Speci men Type: BLOOD SPECIMENOrdering Facility: [facility] Address: [address] [place] [address] Performed By: #### 5 7021-8 ####[facility]IDSUN[facility] [id number] [place] [address] [place] MCV (RBC) [Entitic vol] 111.8 fL High 80.0-100.0 [facility] Comment on above: Order Comment: Speci men Type: BLOOD SPECIMENOrdering Facility: [facility] Address: [address] [place] [address] Performed By: #### 5 7021-8 ####[facility] PLACIDNCLIA [id number] [place] [address] [place] Monocytes (Bld) [#/Vol] 0.26 10*3/uL Normal <0.87 [facility] Comment on above: Order Comment: Speci men Type: BLOOD SPECIMENOrdering Facility: [facility] Address: [address] [place] [address] Performed By: #### 5 7021-8 ####[facility] PLACIDNCA [id number] [place] [address] [place] Monocytes/100 WBC (Bld) 11.8 % Normal [facility] Comment on above: Order Comment: Speci men Type: BLOOD SPECIMENOrdering Facility: [facility] Address: [address] [place] [address] Performed By: #### 5 7021-8 ####[facility] PLACIDNCLI [id number] [place] [address] [place] Neutrophils (Bld) [#/Vol] 1.53 10*3/uL Normal 1.45-7.50 [facility] Comment on above: Order Comment: Speci men Type: BLOOD SPECIMENOrdering Facility: [facility] Address: [address] [place] [address] Performed By: #### 5 7021-8 ####[facility]ITALA [id number] [place] [address] [place] Neutrophils/100 WBC (Bld) 69.5 % Normal [facility] Comment on above: Order Comment: Speci men Type: BLOOD SPECIMENOrdering Facility: [facility] Address: [address] [place] [address] Performed By: #### 5 7021-8 ####[facility] PLACIDNCLIA [id number] [place] [address] [place] Nucleated RBC (Bld) [#/Vol] 10*3/uL Normal <0.01 [facility] Comment on above: Order Comment: Speci men Type: BLOOD SPECIMENOrdering Facility: [facility] Address: [address] [place] [address] Performed By: #### 5 7021-8 ####[facility] RAJINDERRADHA [id number] [place] [address] [place] Nucleated RBC/100 WBC (Bld) [Ratio] 0.0 /100 WBC Normal [facility] Comment on above: Order Comment: Speci men Type: BLOOD SPECIMENOrdering Facility: [facility] Address: [address] [place] [address] Performed By: #### 5 7021-8 ####[facility] PLACIDNCLIHayley [id number] [place] [address] [place] Platelet mean volume (Bld) [Entitic vol] 10.5 fL Normal 9.0-12.7 [facility] Comment on above: Order Comment: Speci men Type: BLOOD SPECIMENOrdering Facility: [facility] Address: [address] [place] [address] Performed By: #### 5 7021-8 ####[facility] PLACIDNCA [id number] [place] [address] [place] Platelets (Bld) [#/Vol] 208 10*3/uL Normal 150-400 [facility] Comment on above: Order Comment: Speci men Type: BLOOD SPECIMENOrdering Facility: [facility] Address: [address] [place] [address] Performed By: #### 5 7021-8 ####[facility] PLACIDNCLIA [id number] [place] [address] [place] RBC (Bld) [#/Vol] 2.63 10*6/uL Low 3.90-5.20 [facility] Comment on above: Order Comment: Speci men Type: BLOOD SPECIMENOrdering Facility: [facility] Address: [address] [place] [address] Performed By: #### 5 7021-8 ####[facility]ACIDNCMOUNTAIN WEST MEDICAL [facility]ENTER [id number] [place] [address] [place] WBC (Bld) [#/Vol] 2.20 10*3/uL Low 3.70-11.00 [facility] Comment on above: Order Comment: Speci men Type: BLOOD SPECIMENOrdering Facility: [facility] Address: [address] [place] [address] Performed By: #### 5 7021-8 ####[facility] PLACIDNCA [id number] [place] [address] [place] Cancer Ag27-29 SerPl-aCncon 03-22-2024 Cancer Ag 27-29 Qn 210.5 [arb'U]/mL High <38.6 [facility] Comment on above: Order Comment: Speci men Type: BLOOD SPECIMENOrdering Facility: [facility] Address: [address] [place] [address] Result Comment: The CA27.29 test was performed using the Siemens Arachnoaur XP chemiluminometric immunoassay method. Results obtained with different assay methods or kits cannot be used interchangeably. Performed By: #### 1 7842-6 ####[facility] LABCLIA [id number] [place] [address] [place] Comprehensive metabolic 2000 panelon 03-22-2024 Albumin [Mass/Vol] 4.2 g/dL Normal 3.9-4.9 [facility] Comment on above: Order Comment: Speci men Type: BLOOD SPECIMENOrdering Facility: [facility] Address: [address] [place] [address] Performed By: #### 2 4323-8 ####[facility]ITALA [id number] [place] [address] [place] ALP [Catalytic activity/Vol] 86 U/L Normal 34-123 [facility] Comment on above: Order Comment: Speci men Type: BLOOD SPECIMENOrdering Facility: [facility] Address: [address] [place] [address] Performed By: #### 2 4323-8 ####[facility] RACHELLE MILLTOWNCLIA [id number] [place] [address] [place] ALT [Catalytic activity/Vol] 10 U/L Normal 7-38 [facility] Comment on above: Order Comment: Speci men Type: BLOOD SPECIMENOrdering Facility: [facility] Address: [address] [place] [address] Performed By: #### 2 4323-8 ####[facility] RACHELLE MILLTOWNCLIA [id number] [place] [address] [place] Anion gap [Moles/Vol] 8 mmol/L Normal 8-15 [facility] Comment on above: Order Comment: Speci men Type: BLOOD SPECIMENOrdering Facility: [facility] Address: [address] [place] [address] Performed By: #### 2 4323-8 ####[facility] MILLTOWNCLIA [id number] [place] [address] [place] AST [Catalytic activity/Vol] 18 U/L Normal 13-35 [facility] Comment on above: Order Comment: Speci men Type: BLOOD SPECIMENOrdering Facility: [facility] Address: [address] [place] [address] Performed By: #### 2 4323-8 ####[facility] RACHELLE MILLTOWNCLIA [id number] [place] [address] [place] Bilirubin [Mass/Vol] 0.4 mg/dL Normal 0.2-1.3 [facility] Comment on above: Order Comment: Speci men Type: BLOOD SPECIMENOrdering Facility: [facility] Address: [address] [place] [address] Performed By: #### 2 4323-8 ####[facility] RACHELLE MILLTOWNCLIA [id number] [place] [address] [place] Calcium [Mass/Vol] 9.7 mg/dL Normal 8.5-10.2 [facility] Comment on above: Order Comment: Speci men Type: BLOOD SPECIMENOrdering Facility: [facility] Address: [address] [place] [address] Performed By: #### 2 4323-8 ####[facility] MILLWNCLIA [id number] [place] [address] [place] Chloride [Moles/Vol] 103 mmol/L Normal 98-107 [facility] Comment on above: Order Comment: Speci men Type: BLOOD SPECIMENOrdering Facility: [facility] Address: [address] [place] [address] Performed By: #### 2 4323-8 ####[facility] HEALTHLIA [id number] [place] [address] [place] CO2 [Moles/Vol] 27 mmol/L Normal 22-30 [facility] Comment on above: Order Comment: Speci men Type: BLOOD SPECIMENOrdering Facility: [facility] Address: [address] [place] [address] Performed By: #### 2 4323-8 ####[facility] HEALTHLIA [id number] [place] [address] [place] Creatinine [Mass/Vol] 0.82 mg/dL Normal 0.58-0.96 [facility] Comment on above: Order Comment: Speci men Type: BLOOD SPECIMENOrdering Facility: [facility] Address: [address] [place] [address] Performed By: #### 2 4323-8 ####[facility] PLACIDNCLIA [id number] [place] [address] [place] Creatinine and Glomerular filtration rate.predicted panel (S/P/Bld) 74 mL/min/1.73m??? Normal >=60 [facility] Comment on above: Order Comment: Gianna corbett Type: BLOOD SPECIMENOrdering Facility: [facility] Address: [address] [place] [address] Result Comment: Nhan mated Glomerular Filtration Rate (eGFR) is calculated using the 2020 CKD-EPI creatinine equation. This equation utilizes serum creatinine, sex, and age as parameters. The creatinine assay has traceable calibration to isotope dilution-mass spectrometry. Refer to KDIGO guidelines for clinical interpretation. In patients with unstable renal function, e.g. those with acute kidney injury, the eGFR may not accurately reflect actual GFR. Performed By: #### 2 4323-8 ####[facility] [id number] [place] [address] [place] Glucose [Mass/Vol] 97 mg/dL Normal 74-99 [facility] Comment on above: Order Comment: Gianna corbett Type: BLOOD SPECIMENOrdering Facility: [facility] Address: [address] [place] [address] Result Comment: The [place] Diabetes Association (ADA) provides guidance for cutoff values for fasting glucose and random glucose. The ADA defines fasting as no caloric intake for at least 8 hours. Fasting plasma glucose results between 100 to 125 mg/dL indicate increased risk for diabetes (prediabetes).Fasting plasma glucose results greater than or equal to 126 mg/dL meet the criteria for diagnosis of diabetes. In the absence of unequivocal hyperglycemia, results should be confirmed by repeat testing. In a patient with classic symptoms of hyperglycemia or hyperglycemic crisis, random plasma glucose results greater than or equal to 200 mg/dL meet the criteria for diagnosis of diabetes.Reference: Standards of Medical Care in Diabetes 2016, [place] [employer]. Diabetes Care. 2016.39(Suppl 1). Performed By: #### 2 4323-8 ####[facility] [id number] [place] [address] [place] Potassium [Moles/Vol] 3.7 mmol/L Normal 3.7-5.1 [facility] Comment on above: Order Comment: Gianna corbett Type: BLOOD SPECIMENOrdering Facility: [facility] Address: [address] [place] [address] Performed By: #### 2 4323-8 ####[facility] RAJINDERGretelNCLIA [id number] [place] [address] [place] Protein [Mass/Vol] 6.8 g/dL Normal 6.3-8.0 [facility] Comment on above: Order Comment: Speci men Type: BLOOD SPECIMENOrdering Facility: [facility] Address: [address] [place] [address] Performed By: #### 2 4323-8 ####[facility] PLACIDNCLIA [id number] [place] [address] [place] Sodium [Moles/Vol] 138 mmol/L Normal 136-144 [facility] Comment on above: Order Comment: Speci men Type: BLOOD SPECIMENOrdering Facility: [facility] Address: [address] [place] [address] Performed By: #### 2 4323-8 ####[facility] PLACIDNCLIA [id number] [place] [address] [place] Urea nitrogen [Mass/Vol] 16 mg/dL Normal 7-21 [facility] Comment on above: Order Comment: Speci men Type: BLOOD SPECIMENOrdering Facility: [facility] Address: [address] [place] [address] Performed By: #### 2 4323-8 ####[facility] CENTERWNCLIA [id number] [place] [address] [place] CNPNon 03-04-2024 CNPN Normal [facility] CNCNPATEDon 02-26-2024 CNCNPATED Normal [facility] CBC W Auto Differential pane l (Bld)on 02-24-2024 Basophils (Bld) [#/Vol] 0.05 10*3/uL Normal <0.11 [facility] Comment on above: Order Comment: Speci men Type: BLOOD SPECIMENOrdering Facility: [facility] Address: [address] [place] [address] Performed By: #### 5 7021-8 ####[facility] MILLTOWNCLIA [id number] [place] [address] [place] Basophils/100 WBC (Bld) 2.1 % Normal [facility] Comment on above: Order Comment: Speci men Type: BLOOD SPECIMENOrdering Facility: [facility] Address: [address] [place] [address] Performed By: #### 5 7021-8 ####[facility]ACIDNCLIA [id number] [place] [address] [place] Differential cell count method Nom (Bld) Auto Normal [facility] Comment on above: Order Comment: Speci men Type: BLOOD SPECIMENOrdering Facility: [facility] Address: [address] [place] [address] Performed By: #### 5 7021-8 ####[facility] MILLWRILIA [id number] [place] [address] [place] Eosinophils (Bld) [#/Vol] 0.06 10*3/uL Normal <0.46 [facility] Comment on above: Order Comment: Speci men Type: BLOOD SPECIMENOrdering Facility: [facility] Address: [address] [place] [address] Performed By: #### 5 7021-8 ####[facility] MILLTOWNCLIA [id number] [place] [address] [place] Eosinophils/100 WBC (Bld) 2.5 % Normal [facility] Comment on above: Order Comment: Speci men Type: BLOOD SPECIMENOrdering Facility: [facility] Address: [address] [place] [address] Performed By: #### 5 7021-8 ####[facility] MILLTOWNCLIA [id number] [place] [address] [place] Erythrocyte distribution width (RBC) [Ratio] 14.1 % Normal 11.5-15.0 [facility] Comment on above: Order Comment: Speci men Type: BLOOD SPECIMENOrdering Facility: [facility] Address: [address] [place] [address] Performed By: #### 5 7021-8 ####[facility] PLACIDSUNDAY [id number] [place] [address] [place] Hematocrit (Bld) [Volume fraction] 28.6 % Low 36.0-46.0 [facility] Comment on above: Order Comment: Speci men Type: BLOOD SPECIMENOrdering Facility: [facility] Address: [address] [place] [address] Performed By: #### 5 7021-8 ####[facility] PLACIDDHEERAJHayley [id number] [place] [address] [place] Hemoglobin (Bld) [Mass/Vol] 9.5 g/dL Low 11.5-15.5 [facility] Comment on above: Order Comment: Speci men Type: BLOOD SPECIMENOrdering Facility: [facility] Address: [address] [place] [address] Performed By: #### 5 7021-8 ####[facility] PLACIDSUNDAY [id number] [place] [address] [place] Immature granulocytes (Bld) [#/Vol] 10*3/uL Normal <0.10 [facility] Comment on above: Order Comment: Speci men Type: BLOOD SPECIMENOrdering Facility: [facility] Address: [address] [place] [address] Performed By: #### 5 7021-8 ####[facility] PLACIDNCLIA [id number] [place] [address] [place] Immature granulocytes/100 WBC (Bld) 0.4 % Normal [facility] Comment on above: Order Comment: Speci men Type: BLOOD SPECIMENOrdering Facility: [facility] Address: [address] [place] [address] Performed By: #### 5 7021-8 ####[facility] PLACIDNCGEOVANI [id number] [place] [address] [place] Lymphocytes (Bld) [#/Vol] 0.28 10*3/uL Low 1.00-4.00 [facility] Comment on above: Order Comment: Speci men Type: BLOOD SPECIMENOrdering Facility: [facility] Address: [address] [place] [address] Performed By: #### 5 7021-8 ####[facility] [id number] [place] [address] [place] Lymphocytes/100 WBC (Bld) 11.6 % Normal [facility] Comment on above: Order Comment: Speci men Type: BLOOD SPECIMENOrdering Facility: [facility] Address: [address] [place] [address] Performed By: #### 5 7021-8 ####[facility] [id number] [place] [address] [place] MCH (RBC) [Entitic mass] 37.7 pg High 26.0-34.0 [facility] Comment on above: Order Comment: Speci men Type: BLOOD SPECIMENOrdering Facility: [facility] Address: [address] [place] [address] Performed By: #### 5 7021-8 ####[facility]ITALA [id number] [place] [address] [place] MCHC (RBC) [Mass/Vol] 33.2 g/dL Normal 30.5-36.0 [facility] Comment on above: Order Comment: Speci men Type: BLOOD SPECIMENOrdering Facility: [facility] Address: [address] [place] [address] Performed By: #### 5 7021-8 ####[facility] PLACIDNCLIA [id number] [place] [address] [place] MCV (RBC) [Entitic vol] 113.5 fL High 80.0-100.0 [facility] Comment on above: Order Comment: Speci men Type: BLOOD SPECIMENOrdering Facility: [facility] Address: [address] [place] [address] Performed By: #### 5 7021-8 ####[facility]ACIDNCLIA [id number] [place] [address] [place] Monocytes (Bld) [#/Vol] 0.33 10*3/uL Normal <0.87 [facility] Comment on above: Order Comment: Speci men Type: BLOOD SPECIMENOrdering Facility: [facility] Address: [address] [place] [address] Performed By: #### 5 7021-8 ####[facility] PLACIDNCA [id number] [place] [address] [place] Monocytes/100 WBC (Bld) 13.7 % Normal [facility] Comment on above: Order Comment: Speci men Type: BLOOD SPECIMENOrdering Facility: [facility] Address: [address] [place] [address] Performed By: #### 5 7021-8 ####[facility] PLACIDNCLIA [id number] [place] [address] [place] Neutrophils (Bld) [#/Vol] 1.68 10*3/uL Normal 1.45-7.50 [facility] Comment on above: Order Comment: Speci men Type: BLOOD SPECIMENOrdering Facility: [facility] Address: [address] [place] [address] Performed By: #### 5 7021-8 ####[facility]ALTHLIA [id number] [place] [address] [place] Neutrophils/100 WBC (Bld) 69.7 % Normal [facility] Comment on above: Order Comment: Speci men Type: BLOOD SPECIMENOrdering Facility: [facility] Address: [address] [place] [address] Performed By: #### 5 7021-8 ####[facility] PLACIDDOROTEO [id number] [place] [address] [place] Nucleated RBC (Bld) [#/Vol] 0.03 10*3/uL High <0.01 [facility] Comment on above: Order Comment: Speci men Type: BLOOD SPECIMENOrdering Facility: [facility] Address: [address] [place] [address] Performed By: #### 5 7021-8 ####[facility] PLACIDNCMOUNTAIN [facility]ST [facility] [id number] [place] [address] [place] Nucleated RBC/100 WBC (Bld) [Ratio] 1.2 /100 WBC Normal [facility] Comment on above: Order Comment: Speci men Type: BLOOD SPECIMENOrdering Facility: [facility] Address: [address] [place] [address] Performed By: #### 5 7021-8 ####[facility] PLACIDNCABRAHAM [id number] [place] [address] [place] Platelet mean volume (Bld) [Entitic vol] 10.1 fL Normal 9.0-12.7 [facility] Comment on above: Order Comment: Speci men Type: BLOOD SPECIMENOrdering Facility: [facility] Address: [address] [place] [address] Performed By: #### 5 7021-8 ####[facility] PLACIDNCLI [id number] [place] [address] [place] Platelets (Bld) [#/Vol] 204 10*3/uL Normal 150-400 [facility] Comment on above: Order Comment: Speci men Type: BLOOD SPECIMENOrdering Facility: [facility] Address: [address] [place] [address] Performed By: #### 5 7021-8 ####[facility] PLACIDNCLIA [id number] [place] [address] [place] RBC (Bld) [#/Vol] 2.52 10*6/uL Low 3.90-5.20 [facility] Comment on above: Order Comment: Speci men Type: BLOOD SPECIMENOrdering Facility: [facility] Address: [address] [place] [address] Performed By: #### 5 7021-8 ####[facility] PLACIDNCA [id number] [place] [address] [place] WBC (Bld) [#/Vol] 2.41 10*3/uL Low 3.70-11.00 [facility] Comment on above: Order Comment: Speci men Type: BLOOD SPECIMENOrdering Facility: [facility] Address: [address] [place] [address] Performed By: #### 5 7021-8 ####[facility] PLACIDNCLIA [id number] [place] [address] [place] Cancer Ag27-29 SerPl-aCncon 02-24-2024 Cancer Ag 27-29 Qn 190.3 [arb'U]/mL High <38.6 [facility] Comment on above: Order Comment: Speci men Type: BLOOD SPECIMENOrdering Facility: [facility] Address: [address] [place] [address] Result Comment: The CA27.29 test was performed using the Siemens Centaur XP chemiluminometric immunoassay method. Results obtained with different assay methods or kits cannot be used interchangeably. Performed By: #### 1 7842-6 ####[facility] LABCLIA [id number] [place] [address] [place] Comprehensive metabolic 2000 panelon 02-24-2024 Albumin [Mass/Vol] 4.1 g/dL Normal 3.9-4.9 [facility] Comment on above: Order Comment: Speci men Type: BLOOD SPECIMENOrdering Facility: [facility] Address: [address] [place] [address] Performed By: #### 2 4323-8 ####[facility]ENTERWRILIA [id number] [place] [address] [place] ALP [Catalytic activity/Vol] 84 U/L Normal 34-123 [facility] Comment on above: Order Comment: Speci men Type: BLOOD SPECIMENOrdering Facility: [facility] Address: [address] [place] [address] Performed By: #### 2 4323-8 ####[facility] PLACIDNCLIA [id number] [place] [address] [place] ALT [Catalytic activity/Vol] 8 U/L Normal 7-38 [facility] Comment on above: Order Comment: Speci men Type: BLOOD SPECIMENOrdering Facility: [facility] Address: [address] [place] [address] Performed By: #### 2 4323-8 ####[facility] PLACIDNCLIA [id number] [place] [address] [place] Anion gap [Moles/Vol] 11 mmol/L Normal 8-15 [facility] Comment on above: Order Comment: Speci men Type: BLOOD SPECIMENOrdering Facility: [facility] Address: [address] [place] [address] Performed By: #### 2 4323-8 ####[facility] PLACIDNCLIA [id number] [place] [address] [place] AST [Catalytic activity/Vol] 20 U/L Normal 13-35 [facility] Comment on above: Order Comment: Speci men Type: BLOOD SPECIMENOrdering Facility: [facility] Address: [address] [place] [address] Performed By: #### 2 4323-8 ####[facility] RAJINDERMARIOGEOVANIA [id number] [place] [address] [place] Bilirubin [Mass/Vol] 0.4 mg/dL Normal 0.2-1.3 [facility] Comment on above: Order Comment: Speci men Type: BLOOD SPECIMENOrdering Facility: [facility] Address: [address] [place] [address] Performed By: #### 2 4323-8 ####[facility] PLACIDDHEERAJLIA [id number] [place] [address] [place] Calcium [Mass/Vol] 9.9 mg/dL Normal 8.5-10.2 [facility] Comment on above: Order Comment: Speci men Type: BLOOD SPECIMENOrdering Facility: [facility] Address: [address] [place] [address] Performed By: #### 2 4323-8 ####[facility] PLACIDDOROTEOA [id number] [place] [address] [place] Chloride [Moles/Vol] 105 mmol/L Normal 98-107 [facility] Comment on above: Order Comment: Speci men Type: BLOOD SPECIMENOrdering Facility: [facility] Address: [address] [place] [address] Performed By: #### 2 4323-8 ####[facility] PLACIDNCLIA [id number] [place] [address] [place] CO2 [Moles/Vol] 24 mmol/L Normal 22-30 [facility] Comment on above: Order Comment: Speci men Type: BLOOD SPECIMENOrdering Facility: [facility] Address: [address] [place] [address] Performed By: #### 2 4323-8 ####[facility] PLACIDNCLI [id number] [place] [address] [place] Creatinine [Mass/Vol] 0.87 mg/dL Normal 0.58-0.96 [facility] Comment on above: Order Comment: Specmanjeet corbett Type: BLOOD SPECIMENOrdering Facility: [facility] Address: [address] [place] [address] Performed By: #### 2 4323-8 ####[facility] [id number] [place] [address] [place] Creatinine and Glomerular filtration rate.predicted panel (S/P/Bld) 69 mL/min/1.73m??? Normal >=60 [facility] Comment on above: Order Comment: Gianna corbett Type: BLOOD SPECIMENOrdering Facility: [facility] Address: [address] [place] [address] Result Comment: Nhan mated Glomerular Filtration Rate (eGFR) is calculated using the 2020 CKD-EPI creatinine equation. This equation utilizes serum creatinine, sex, and age as parameters. The creatinine assay has traceable calibration to isotope dilution-mass spectrometry. Refer to KDIGO guidelines for clinical interpretation. In patients with unstable renal function, e.g. those with acute kidney injury, the eGFR may not accurately reflect actual GFR. Performed By: #### 2 4323-8 ####[facility] [id number] [place] [address] [place] Glucose [Mass/Vol] 104 mg/dL High 74-99 [facility] Comment on above: Order Comment: Speci men Type: BLOOD SPECIMENOrdering Facility: [facility] Address: [address] [id number] Result Comment: The [place] Diabetes Association (ADA) provides guidance for cutoff values for fasting glucose and random glucose. The ADA defines fasting as no caloric intake for at least 8 hours. Fasting plasma glucose results between 100 to 125 mg/dL indicate increased risk for diabetes (prediabetes).Fasting plasma glucose results greater than or equal to 126 mg/dL meet the criteria for diagnosis of diabetes. In the absence of unequivocal hyperglycemia, results should be confirmed by repeat testing. In a patient with classic symptoms of hyperglycemia or hyperglycemic crisis, random plasma glucose results greater than or equal to 200 mg/dL meet the criteria for diagnosis of diabetes.Reference: Standards of Medical Care in Diabetes 2016, [place] [employer]. Diabetes Care. 2016.39(Suppl 1). Performed By: #### 2 4323-8 ####[facility] PLACIDDHEERAJLIA [id number] [place] [address] [place] Potassium [Moles/Vol] 4.0 mmol/L Normal 3.7-5.1 [facility] Comment on above: Order Comment: Speci men Type: BLOOD SPECIMENOrdering Facility: [facility] Address: [address] [place] [address] Performed By: #### 2 4323-8 ####[facility] [id number] [place] [address] [place] Protein [Mass/Vol] 6.6 g/dL Normal 6.3-8.0 [facility] Comment on above: Order Comment: Speci men Type: BLOOD SPECIMENOrdering Facility: [facility] Address: [address] [place] [address] Performed By: #### 2 4323-8 ####[facility] [id number] [place] [address] [place] Sodium [Moles/Vol] 140 mmol/L Normal 136-144 [facility] Comment on above: Order Comment: Speci men Type: BLOOD SPECIMENOrdering Facility: [facility] Address: [address] [place] [address] Performed By: #### 2 4323-8 ####[facility] HEALTHLIA [id number] [place] [address] [place] Urea nitrogen [Mass/Vol] 14 mg/dL Normal 7-21 [facility] Comment on above: Order Comment: Speci men Type: BLOOD SPECIMENOrdering Facility: [facility] Address: [facility] [address] [id number] Performed By: #### 2 4323-8 ####[facility] RACHELLE RAJINDERPEWAUKEESUNDAY [id number] [place] [address] [place] CNOVon 02-23-2024 CNOV Normal [facility] CNOVon 02-16-2024 CNOV Normal [facility] CNOVon 02-12-2024 CNOV Normal [facility] CNPNon 02-12-2024 CNPN Normal [facility] CBC W Auto Differential pane l (Bld)on 01-27-2024 Basophils (Bld) [#/Vol] 0.06 10*3/uL [facility] Basophils/100 WBC (Bld) 1.9 % [facility] Differential cell count method Nom (Bld) Auto [facility] Eosinophils (Bld) [#/Vol] 0.07 10*3/uL [facility] Eosinophils/100 WBC (Bld) 2.2 % [facility] Erythrocyte distribution width (RBC) [Ratio] 13.6 % 11.5 - 15.0 % [facility] Hematocrit (Bld) [Volume fraction] 33.5 % Low 36.0 - 46.0 % [facility] Hemoglobin (Bld) [Mass/Vol] 11.3 g/dL Low 11.5 - 15.5 g/dL [facility] Immature granulocytes (Bld) [#/Vol] 0.04 10*3/uL [facility] Immature granulocytes/100 WBC (Bld) 1.2 % [facility] Interpretation and review of laboratory results Abnormal [facility] Lymphocytes (Bld) [#/Vol] 0.42 10*3/uL Low [facility] Lymphocytes/100 WBC (Bld) 13.0 % [facility] MCH (RBC) [Entitic mass] 38.2 pg High 26.0 - 34.0 pg [facility] MCHC (RBC) [Mass/Vol] 33.7 g/dL 30.5 - 36.0 g/dL [facility] MCV (RBC) [Entitic vol] 113.2 fL High 80.0 - 100.0 fL [facility] Monocytes (Bld) [#/Vol] 0.37 10*3/uL NINF [facility] Monocytes/100 WBC (Bld) 11.4 % [facility] Neutrophils (Bld) [#/Vol] 2.28 10*3/uL [facility] Neutrophils/100 WBC (Bld) 70.3 % [facility] Nucleated RBC (Bld) [#/Vol] 0.02 10*3/uL High NINF [facility] Nucleated RBC/100 WBC (Bld) [Ratio] 0.6 % /100 WBC [facility] Platelet mean volume (Bld) [Entitic vol] 10.0 fL 9.0 - 12.7 fL [facility] Platelets (Bld) [#/Vol] 222 10*3/uL [facility] RBC (Bld) [#/Vol] 2.96 10*6/uL Low 3.90 - 5.20 m/uL [facility] WBC (Bld) [#/Vol] 3.24 10*3/uL Low [facility] Basophils (Bld) [#/Vol] 0.06 10*3/uL Normal <0.11 [facility] Comment on above: Order Comment: Speci men Type: BLOOD SPECIMENOrdering Facility: [facility] Address: [address] [place] [address] Performed By: #### 5 7021-8 ####[facility] [id number] [place] [address] [place] Basophils/100 WBC (Bld) 1.9 % Normal [facility] Comment on above: Order Comment: Speci men Type: BLOOD SPECIMENOrdering Facility: [facility] Address: [address] [place] [address] Performed By: #### 5 7021-8 ####[facility] [id number] [place] [address] [place] Differential cell count method Nom (Bld) Auto Normal [facility] Comment on above: Order Comment: Speci men Type: BLOOD SPECIMENOrdering Facility: [facility] Address: [address] [place] [address] Performed By: #### 5 7021-8 ####[facility] MILLWNCLIA [id number] [place] [address] [place] Eosinophils (Bld) [#/Vol] 0.07 10*3/uL Normal <0.46 [facility] Comment on above: Order Comment: Speci men Type: BLOOD SPECIMENOrdering Facility: [facility] Address: [address] [place] [address] Performed By: #### 5 7021-8 ####[facility]ALTHL[facility] [id number] [place] [address] [place] Eosinophils/100 WBC (Bld) 2.2 % Normal [facility] Comment on above: Order Comment: Speci men Type: BLOOD SPECIMENOrdering Facility: [facility] Address: [address] [place] [address] Performed By: #### 5 7021-8 ####[facility]ALTHL[facility] [id number] [place] [address] [place] Erythrocyte distribution width (RBC) [Ratio] 13.6 % Normal 11.5-15.0 [facility] Comment on above: Order Comment: Speci men Type: BLOOD SPECIMENOrdering Facility: [facility] Address: [address] [place] [address] Performed By: #### 5 7021-8 ####[facility]ALTHLIA [id number] [place] [address] [place] Hematocrit (Bld) [Volume fraction] 33.5 % Low 36.0-46.0 [facility] Comment on above: Order Comment: Speci men Type: BLOOD SPECIMENOrdering Facility: [facility] Address: [address] [place] [address] Performed By: #### 5 7021-8 ####[facility]ALTHL[facility] [id number] [place] [address] [place] Hemoglobin (Bld) [Mass/Vol] 11.3 g/dL Low 11.5-15.5 [facility] Comment on above: Order Comment: Speci men Type: BLOOD SPECIMENOrdering Facility: [facility] Address: [address] [place] [address] Performed By: #### 5 7021-8 ####[facility] [id number] [place] [address] [place] Immature granulocytes (Bld) [#/Vol] 0.04 10*3/uL Normal <0.10 [facility] Comment on above: Order Comment: Speci men Type: BLOOD SPECIMENOrdering Facility: [facility] Address: [address] [place] [address] Performed By: #### 5 7021-8 ####[facility] [id number] [place] [address] [place] Immature granulocytes/100 WBC (Bld) 1.2 % Normal [facility] Comment on above: Order Comment: Speci men Type: BLOOD SPECIMENOrdering Facility: [facility] Address: [address] [place] [address] Performed By: #### 5 7021-8 ####[facility] [id number] [place] [address] [place] Lymphocytes (Bld) [#/Vol] 0.42 10*3/uL Low 1.00-4.00 [facility] Comment on above: Order Comment: Speci men Type: BLOOD SPECIMENOrdering Facility: [facility] Address: [address] [place] [address] Performed By: #### 5 7021-8 ####[facility] [id number] [place] [address] [place] Lymphocytes/100 WBC (Bld) 13.0 % Normal [facility] Comment on above: Order Comment: Speci men Type: BLOOD SPECIMENOrdering Facility: [facility] Address: [address] [place] [address] Performed By: #### 5 7021-8 ####[facility] RAJINDERGretelNCABRAHAM [id number] [place] [address] [place] MCH (RBC) [Entitic mass] 38.2 pg High 26.0-34.0 [facility] Comment on above: Order Comment: Speci men Type: BLOOD SPECIMENOrdering Facility: [facility] Address: [address] [place] [address] Performed By: #### 5 7021-8 ####[facility]ACIDNCMOUNT[facility] [id number] [place] [address] [place] MCHC (RBC) [Mass/Vol] 33.7 g/dL Normal 30.5-36.0 [facility] Comment on above: Order Comment: Speci men Type: BLOOD SPECIMENOrdering Facility: [facility] Address: [address] [place] [address] Performed By: #### 5 7021-8 ####[facility] PLACIDNCLIA [id number] [place] [address] [place] [place] MCV (RBC) [Entitic vol] 113.2 fL High 80.0-100.0 [facility] Comment on above: Order Comment: Speci men Type: BLOOD SPECIMENOrdering Facility: [facility] Address: [address] [place], [place] [address] Performed By: #### 5 7021-8 ####[facility]ACIDNCLIA [id number] [place] [address] [place] Monocytes (Bld) [#/Vol] 0.37 10*3/uL Normal <0.87 [facility] Comment on above: Order Comment: Speci men Type: BLOOD SPECIMENOrdering Facility: [facility] Address: [address] [place] [address] Performed By: #### 5 7021-8 ####[facility] RAJINDERPEWAUKEEDHEERAJLIA [id number] [place] [address] [place] Monocytes/100 WBC (Bld) 11.4 % Normal [facility] Comment on above: Order Comment: Speci men Type: BLOOD SPECIMENOrdering Facility: [facility] Address: [address] [place] [address] Performed By: #### 5 7021-8 ####[facility]ALTHL[facility] [id number] [place] [address] [place] Neutrophils (Bld) [#/Vol] 2.28 10*3/uL Normal 1.45-7.50 [facility] Comment on above: Order Comment: Speci men Type: BLOOD SPECIMENOrdering Facility: [facility] Address: [address] [place] [address] Performed By: #### 5 7021-8 ####[facility]ALTHL[facility] [id number] [place] [address] [place] Neutrophils/100 WBC (Bld) 70.3 % Normal [facility] Comment on above: Order Comment: Speci men Type: BLOOD SPECIMENOrdering Facility: [facility] Address: [address] [place] [address] Performed By: #### 5 7021-8 ####[facility]ALTHLIA [id number] [place] [address] [place] Nucleated RBC (Bld) [#/Vol] 0.02 10*3/uL High <0.01 [facility] Comment on above: Order Comment: Speci men Type: BLOOD SPECIMENOrdering Facility: [facility] Address: [address] [place] [address] Performed By: #### 5 7021-8 ####[facility]ALTHL[facility] [id number] [place] [address] [place] Nucleated RBC/100 WBC (Bld) [Ratio] 0.6 /100 WBC Normal [facility] Comment on above: Order Comment: Speci men Type: BLOOD SPECIMENOrdering Facility: [facility] Address: [address] [place] [address] Performed By: #### 5 7021-8 ####[facility] PLACIDDHEERAJABRAHAM [id number] [place] [address] [place] Platelet mean volume (Bld) [Entitic vol] 10.0 fL Normal 9.0-12.7 [facility] Comment on above: Order Comment: Speci men Type: BLOOD SPECIMENOrdering Facility: [facility] Address: [address] [place] [address] Performed By: #### 5 7021-8 ####[facility] PLACIDDHEERAJHayley [id number] [place] [address] [place] Platelets (Bld) [#/Vol] 222 10*3/uL Normal 150-400 [facility] Comment on above: Order Comment: Speci men Type: BLOOD SPECIMENOrdering Facility: [facility] Address: [address] [place] [address] Performed By: #### 5 7021-8 ####[facility] PLACIDDHEERAJABRAHAM [id number] [place] [address] [place] RBC (Bld) [#/Vol] 2.96 10*6/uL Low 3.90-5.20 [facility] Comment on above: Order Comment: Speci men Type: BLOOD SPECIMENOrdering Facility: [facility] Address: [address] [place] [address] Performed By: #### 5 7021-8 ####[facility] PLACIDNCLIA [id number] [place] [address] [place] WBC (Bld) [#/Vol] 3.24 10*3/uL Low 3.70-11.00 [facility] Comment on above: Order Comment: Speci men Type: BLOOD SPECIMENOrdering Facility: [facility] Address: [address] [place] [address] Performed By: #### 5 7021-8 ####[facility] RACHELLE CALVILLOPEWAUKEENCLIA [id number] [address] [place] CNOVSPon 01-27-2024 CNOVSP Normal [facility] Cancer Ag27-29 SerPl-aCncon 01-27-2024 Cancer Ag 27-29 Qn 170.7 [arb'U]/mL High <38.6 [facility] Comment on above: Order Comment: Speci men Type: BLOOD SPECIMENOrdering Facility: [facility] Address: [address] [place] [address] Result Comment: The CA27.29 test was performed using the Siemens Arachnoaur XP chemiluminometric immunoassay method. Results obtained with different assay methods or kits cannot be used interchangeably. Performed By: #### 1 7842-6 ####[facility] LABCLIA [id number] [address] [place] Comprehensive metabolic 2000 panelOrdered By: Candelaria Alonso on 01-27-2024 Albumin [Mass/Vol] 4.3 g/dL 3.9 - 4.9 g/dL [facility] ALP [Catalytic activity/Vol] 92 U/L 34 - 123 U/L [facility] ALT [Catalytic activity/Vol] 8 U/L 7 - 38 U/L [facility] Anion gap [Moles/Vol] 13 mmol/L 8 - 15 mmol/L [facility] AST [Catalytic activity/Vol] 19 U/L 13 - 35 U/L [facility] Bilirubin [Mass/Vol] 0.4 mg/dL 0.2 - 1 .3 mg/dL [facility] Calcium [Mass/Vol] 10.3 mg/dL High 8.5 - 10. 2 mg/dL [facility] Chloride [Moles/Vol] 103 mmol/L 98 - 10 7 mmol/L [facility] CO2 [Moles/Vol] 24 mmol/L 22 - 30 mmol/L [facility] Creatinine [Mass/Vol] 0.84 mg/dL 0.58 - 0.96 mg/dL [facility] GFR/1.73 sq M.predicted among non-blacks MDRD (S/P/Bld) [Vol rate/Area] 72 mL/min/{1.73_m2} - PINF [facility] Comment on above: Estimated Glomerular Filtration Rate (eGFR) is calculated using the 2020 CKD-EPI creatinine equation. This equation utilizes serum creatinine, sex, and age as parameters. The creatinine assay has traceable calibration to isotope dilution-mass spectrometry. Refer to KDIGO guidelines for clinical interpretation. In patients with unstable renal function, e.g. those with acute kidney injury, the eGFR may not accurately reflect actual GFR. Glucose [Mass/Vol] 116 mg/dL High 74 - 99 mg/dL [facility] Comment on above: The [place] Diabete s Association (ADA) provides guidance for cutoff values for fasting glucose and random glucose. The ADA defines fasting as no caloric intake for at least 8 hours. Fasting plasma glucose results between 100 to 125 mg/dL indicate increased risk for diabetes (prediabetes). Fasting plasma glucose results greater than or equal to 126 mg/dL meet the criteria for diagnosis of diabetes. In the absence of unequivocal hyperglycemia, results should be confirmed by repeat testing. In a patient with classic symptoms of hyperglycemia or hyperglycemic crisis, random plasma glucose results greater than or equal to 200 mg/dL meet the criteria for diagnosis of diabetes. Reference: Standards of Medical Care in Diabetes 2016, [place] [employer] Association. Diabetes Care. 2016.39(Suppl 1). Interpretation and review of laboratory results Abnormal [facility] Potassium [Moles/Vol] 4.2 mmol/L 3.7 - 5.1 mmol/L [facility] Protein [Mass/Vol] 7.2 g/dL 6.3 - 8.0 g/dL [facility] Sodium [Moles/Vol] 140 mmol/L 136 - 144 mmol/L [facility] Urea nitrogen [Mass/Vol] 16 mg/dL 7 - 21 mg/dL [facility] Comprehensive metabolic 2000 panelon 01-27-2024 Albumin [Mass/Vol] 4.3 g/dL Normal 3.9-4.9 [facility] Comment on above: Order Comment: Speci men Type: BLOOD SPECIMENOrdering Facility: [facility] Address: [address] [place] [address] Performed By: #### 2 4323-8 ####[facility] RACHELLE MILLTOWNCLIA [id number] [place] [address] [place] ALP [Catalytic activity/Vol] 92 U/L Normal 34-123 [facility] Comment on above: Order Comment: Speci men Type: BLOOD SPECIMENOrdering Facility: [facility] Address: [address] [place] [address] Performed By: #### 2 4323-8 ####[facility] MILLTOWNCLIA [id number] [place] [address] [place] ALT [Catalytic activity/Vol] 8 U/L Normal 7-38 [facility] Comment on above: Order Comment: Speci men Type: BLOOD SPECIMENOrdering Facility: [facility] Address: [address] [place] [address] Performed By: #### 2 4323-8 ####[facility] MILLTOWNCLIA [id number] [place] [address] [place] Anion gap [Moles/Vol] 13 mmol/L Normal 8-15 [facility] Comment on above: Order Comment: Speci men Type: BLOOD SPECIMENOrdering Facility: [facility] Address: [address] [place] [address] Performed By: #### 2 4323-8 ####[facility] MILLTOWNCLIA [id number] [place] [address] [place] AST [Catalytic activity/Vol] 19 U/L Normal 13-35 [facility] Comment on above: Order Comment: Speci men Type: BLOOD SPECIMENOrdering Facility: [facility] Address: [address] [place] [address] Performed By: #### 2 4323-8 ####[facility] MILLTOWNCLIA [id number] [place] [address] [place] Bilirubin [Mass/Vol] 0.4 mg/dL Normal 0.2-1.3 [facility] Comment on above: Order Comment: Speci men Type: BLOOD SPECIMENOrdering Facility: [facility] Address: [address] [place] [address] Performed By: #### 2 4323-8 ####[facility] RACHELLE MILLTOWNCLIA [id number] [place] [address] [place] Calcium [Mass/Vol] 10.3 mg/dL High 8.5-10.2 [facility] Comment on above: Order Comment: Speci men Type: BLOOD SPECIMENOrdering Facility: [facility] Address: [address] [place] [address] Performed By: #### 2 4323-8 ####[facility] MILLWNCLIA [id number] [place] [address] [place] Chloride [Moles/Vol] 103 mmol/L Normal 98-107 [facility] Comment on above: Order Comment: Speci men Type: BLOOD SPECIMENOrdering Facility: [facility] Address: [address] [place] [address] Performed By: #### 2 4323-8 ####[facility] RACHELLE MILLWNCLIA [id number] [place] [address] [place] CO2 [Moles/Vol] 24 mmol/L Normal 22-30 [facility] Comment on above: Order Comment: Speci men Type: BLOOD SPECIMENOrdering Facility: [facility] Address: [address] [place] [address] Performed By: #### 2 4323-8 ####[facility] RACHELLE MILLTOWNCLIA [id number] [place] [address] [place] Creatinine [Mass/Vol] 0.84 mg/dL Normal 0.58-0.96 [facility] Comment on above: Order Comment: Gianna corbett Type: BLOOD SPECIMENOrdering Facility: [facility] Address: [address] [place] [address] Performed By: #### 2 4323-8 ####[facility] [id number] [place] [address] [place] Creatinine and Glomerular filtration rate.predicted panel (S/P/Bld) 72 mL/min/1.73m??? Normal >=60 [facility] Comment on above: Order Comment: Gianna corbett Type: BLOOD SPECIMENOrdering Facility: [facility] Address: [address] [place] [address] Result Comment: Nhan mated Glomerular Filtration Rate (eGFR) is calculated using the 2020 CKD-EPI creatinine equation. This equation utilizes serum creatinine, sex, and age as parameters. The creatinine assay has traceable calibration to isotope dilution-mass spectrometry. Refer to KDIGO guidelines for clinical interpretation. In patients with unstable renal function, e.g. those with acute kidney injury, the eGFR may not accurately reflect actual GFR. Performed By: #### 2 4323-8 ####[facility] [id number] [place] [address] [place] Glucose [Mass/Vol] 116 mg/dL High 74-99 [facility] Comment on above: Order Comment: Gianna corbett Type: BLOOD SPECIMENOrdering Facility: [facility] Address: [address] [place] [address] Result Comment: The [place] Diabetes Association (ADA) provides guidance for cutoff values for fasting glucose and random glucose. The ADA defines fasting as no caloric intake for at least 8 hours. Fasting plasma glucose results between 100 to 125 mg/dL indicate increased risk for diabetes (prediabetes).Fasting plasma glucose results greater than or equal to 126 mg/dL meet the criteria for diagnosis of diabetes. In the absence of unequivocal hyperglycemia, results should be confirmed by repeat testing. In a patient with classic symptoms of hyperglycemia or hyperglycemic crisis, random plasma glucose results greater than or equal to 200 mg/dL meet the criteria for diagnosis of diabetes.Reference: Standards of Medical Care in Diabetes 2016, [place] [employer]. Diabetes Care. 2016.39(Suppl 1). Performed By: #### 2 4323-8 ####[facility] MILLTOWNCLIA [id number] [place] [address] [place] Potassium [Moles/Vol] 4.2 mmol/L Normal 3.7-5.1 [facility] Comment on above: Order Comment: Speci men Type: BLOOD SPECIMENOrdering Facility: [facility] Address: [address] [place] [address] Performed By: #### 2 4323-8 ####[facility] MILLTOWNCLIA [id number] [place] [address] [place] Protein [Mass/Vol] 7.2 g/dL Normal 6.3-8.0 [facility] Comment on above: Order Comment: Speci men Type: BLOOD SPECIMENOrdering Facility: [facility] Address: [address] [place] [address] Performed By: #### 2 4323-8 ####[facility] PLACIDNCLIA [id number] [place] [address] [place] Sodium [Moles/Vol] 140 mmol/L Normal 136-144 [facility] Comment on above: Order Comment: Speci men Type: BLOOD SPECIMENOrdering Facility: [facility] Address: [address] [place] [address] Performed By: #### 2 4323-8 ####[facility] MILLTOWNCLIA [id number] [place] [address] [place] Urea nitrogen [Mass/Vol] 16 mg/dL Normal 7-21 [facility] Comment on above: Order Comment: Speci men Type: BLOOD SPECIMENOrdering Facility: [facility] Address: [address] [place] [address] Performed By: #### 2 4323-8 ####[facility] MILLTOWNCLIA [id number] [place] [id number] [place] CT ABD/PEL WO IVCONon 2023 CT ABD/PEL WO IVCON Normal [facility] CT CHEST WO IVCONon 12-30-19 CT CHEST WO IVCON Normal [facility] Basic metabolic 2000 panelOr dered By: Candelaria Alonso on 12-02-2023 Anion gap [Moles/Vol] 9 mmol/L 8 - 15 mmol/L [facility] Calcium [Mass/Vol] 10.4 mg/dL High 8.5 - 10. 2 mg/dL [facility] Chloride [Moles/Vol] 103 mmol/L 98 - 10 7 mmol/L [facility] CO2 [Moles/Vol] 28 mmol/L 22 - 30 mmol/L [facility] Creatinine [Mass/Vol] 0.91 mg/dL 0.58 - 0.96 mg/dL [facility] GFR/1.73 sq M.predicted among non-blacks MDRD (S/P/Bld) [Vol rate/Area] 66 mL/min/{1.73_m2} - PINF [facility] Comment on above: Estimated Glomerular Filtration Rate (eGFR) is calculated using the 2020 CKD-EPI creatinine equation. This equation utilizes serum creatinine, sex, and age as parameters. The creatinine assay has traceable calibration to isotope dilution-mass spectrometry. Refer to KDIGO guidelines for clinical interpretation. In patients with unstable renal function, e.g. those with acute kidney injury, the eGFR may not accurately reflect actual GFR. Glucose [Mass/Vol] 116 mg/dL High 74 - 99 mg/dL [facility] Comment on above: The [place] Diabete s Association (ADA) provides guidance for cutoff values for fasting glucose and random glucose. The ADA defines fasting as no caloric intake for at least 8 hours. Fasting plasma glucose results between 100 to 125 mg/dL indicate increased risk for diabetes (prediabetes). Fasting plasma glucose results greater than or equal to 126 mg/dL meet the criteria for diagnosis of diabetes. In the absence of unequivocal hyperglycemia, results should be confirmed by repeat testing. In a patient with classic symptoms of hyperglycemia or hyperglycemic crisis, random plasma glucose results greater than or equal to 200 mg/dL meet the criteria for diagnosis of diabetes. Reference: Standards of Medical Care in Diabetes 2016, [place] Diabetes [employer]. Diabetes Care. 2016.39(Suppl 1). Interpretation and review of laboratory results Abnormal [facility] Potassium [Moles/Vol] 4.8 mmol/L 3.7 - 5.1 mmol/L [facility] Sodium [Moles/Vol] 140 mmol/L 136 - 144 mmol/L [facility] Urea nitrogen [Mass/Vol] 14 mg/dL 7 - 21 mg/dL [facility] Basic metabolic 2000 panelon 12-02-2023 Anion gap [Moles/Vol] 9 mmol/L Normal 8-15 [facility] Comment on above: Order Comment: Speci men Type: BLOOD SPECIMENOrdering Facility: [facility] Address: [address] [place] [address] Performed By: #### 2 4321-2 ####[facility] [id number] [place] [address] [place] Calcium [Mass/Vol] 10.4 mg/dL High 8.5-10.2 [facility] Comment on above: Order Comment: Speci men Type: BLOOD SPECIMENOrdering Facility: [facility] Address: [address] [place] [address] Performed By: #### 2 4321-2 ####[facility] PLACIDNCA [id number] [place] [address] [place] Chloride [Moles/Vol] 103 mmol/L Normal 98-107 [facility] Comment on above: Order Comment: Speci men Type: BLOOD SPECIMENOrdering Facility: [facility] Address: [address] [place] [address] Performed By: #### 2 4321-2 ####[facility] PLACIDNCLIA [id number] [place] [address] [place] CO2 [Moles/Vol] 28 mmol/L Normal 22-30 [facility] Comment on above: Order Comment: Speci men Type: BLOOD SPECIMENOrdering Facility: [facility] Address: [address] [place] [address] Performed By: #### 2 4321-2 ####[facility] PLACIDNCLIA [id number] [place] [address] [place] Creatinine [Mass/Vol] 0.91 mg/dL Normal 0.58-0.96 [facility] Comment on above: Order Comment: Speci men Type: BLOOD SPECIMENOrdering Facility: [facility] Address: [address] [place], [place] [address] [address] Performed By: #### 2 4321-2 ####[facility] PLACIDNCLI [id number] [place] [address] [place] Creatinine and Glomerular filtration rate.predicted panel (S/P/Bld) 66 mL/min/1.73m??? Normal >=60 [facility] Comment on above: Order Comment: Gianna corbett Type: BLOOD SPECIMENOrdering Facility: [facility] Address: [address] [place] [address] Result Comment: Nhan mated Glomerular Filtration Rate (eGFR) is calculated using the 2020 CKD-EPI creatinine equation. This equation utilizes serum creatinine, sex, and age as parameters. The creatinine assay has traceable calibration to isotope dilution-mass spectrometry. Refer to KDIGO guidelines for clinical interpretation. In patients with unstable renal function, e.g. those with acute kidney injury, the eGFR may not accurately reflect actual GFR. Performed By: #### 2 4321-2 ####[facility] [id number] [place] [address] [place] Glucose [Mass/Vol] 116 mg/dL High 74-99 [facility] Comment on above: Order Comment: Amberi men Type: BLOOD SPECIMENOrdering Facility: [facility] Address: [address] [place], [place] [id number] Result Comment: The [place] Diabetes Association (ADA) provides guidance for cutoff values for fasting glucose and random glucose. The ADA defines fasting as no caloric intake for at least 8 hours. Fasting plasma glucose results between 100 to 125 mg/dL indicate increased risk for diabetes (prediabetes).Fasting plasma glucose results greater than or equal to 126 mg/dL meet the criteria for diagnosis of diabetes. In the absence of unequivocal hyperglycemia, results should be confirmed by repeat testing. In a patient with classic symptoms of hyperglycemia or hyperglycemic crisis, random plasma glucose results greater than or equal to 200 mg/dL meet the criteria for diagnosis of diabetes.Reference: Standards of Medical Care in Diabetes 2016, [place] [employer]. Diabetes Care. 2016.39(Suppl 1). Performed By: #### 2 4321-2 ####[facility] MILLWNCLIA [id number] [place] [address] [place] Potassium [Moles/Vol] 4.8 mmol/L Normal 3.7-5.1 [facility] Comment on above: Order Comment: Amberi men Type: BLOOD SPECIMENOrdering Facility: [facility] Address: [address] [place] [address] Performed By: #### 2 4321-2 ####[facility] [id number] [place] [address] [place] Sodium [Moles/Vol] 140 mmol/L Normal 136-144 [facility] Comment on above: Order Comment: Gianna corbett Type: BLOOD SPECIMENOrdering Facility: [facility] Address: [address] [place] [address] Performed By: #### 2 4321-2 ####[facility]ALTHL[facility] [id number] [place] [address] [place] Urea nitrogen [Mass/Vol] 14 mg/dL Normal 7-21 [facility] Comment on above: Order Comment: Speci men Type: BLOOD SPECIMENOrdering Facility: [facility] Address: [address] [place] [address] Performed By: #### 2 4321-2 ####[facility]ALTH[facility] [id number] [place] [address] [place] CNOVSPon 09-11-2024 CNOVSP Normal [facility] CBC W Auto Differential pane l (Bld)on 10-07-2023 Basophils (Bld) [#/Vol] 0.06 10*3/uL Normal <0.11 [facility] Comment on above: Order Comment: Speci men Type: BLOOD SPECIMENOrdering Facility: [facility] Address: [address] [place] [address] Performed By: #### 5 7021-8 ####[facility] MILLWRILIA [id number] [place] [address] [place] Basophils/100 WBC (Bld) 2.2 % Normal [facility] Comment on above: Order Comment: Speci men Type: BLOOD SPECIMENOrdering Facility: [facility] Address: [address] [place] [address] Performed By: #### 5 7021-8 ####[facility] [id number] [place] [address] [place] Differential cell count method Nom (Bld) Auto Normal [facility] Comment on above: Order Comment: Speci men Type: BLOOD SPECIMENOrdering Facility: [facility] Address: [address] [place] [address] Performed By: #### 5 7021-8 ####[facility] [id number] [place] [address] [place] Eosinophils (Bld) [#/Vol] 0.07 10*3/uL Normal <0.46 [facility] Comment on above: Order Comment: Speci men Type: BLOOD SPECIMENOrdering Facility: [facility] Address: [address] [place] [address] Performed By: #### 5 7021-8 ####[facility]ALTHL[facility] [id number] [place] [address] [place] Eosinophils/100 WBC (Bld) 2.6 % Normal [facility] Comment on above: Order Comment: Speci men Type: BLOOD SPECIMENOrdering Facility: [facility] Address: [address] [place] [address] Performed By: #### 5 7021-8 ####[facility] RAJINDERRADHA [id number] [place] [address] [place] Erythrocyte distribution width (RBC) [Ratio] 13.7 % Normal 11.5-15.0 [facility] Comment on above: Order Comment: Speci men Type: BLOOD SPECIMENOrdering Facility: [facility] Address: [address] [place] [address] Performed By: #### 5 7021-8 ####[facility] PLACIDNCABRAHAM [id number] [place] [address] [place] Hematocrit (Bld) [Volume fraction] 28.6 % Low 36.0-46.0 [facility] Comment on above: Order Comment: Speci men Type: BLOOD SPECIMENOrdering Facility: [facility] Address: [address] [place] [address] Performed By: #### 5 7021-8 ####[facility] [id number] [place] [address] [place] Hemoglobin (Bld) [Mass/Vol] 9.8 g/dL Low 11.5-15.5 [facility] Comment on above: Order Comment: Speci men Type: BLOOD SPECIMENOrdering Facility: [facility] Address: [address] [place] [address] Performed By: #### 5 7021-8 ####[facility]ALTH[facility] [id number] [place] [address] [place] Immature granulocytes (Bld) [#/Vol] 10*3/uL Normal <0.10 [facility] Comment on above: Order Comment: Speci men Type: BLOOD SPECIMENOrdering Facility: [facility] Address: [address] [place] [address] Performed By: #### 5 7021-8 ####[facility]ACIDNCLIA [id number] [place] [address] [place] Immature granulocytes/100 WBC (Bld) 0.7 % Normal [facility] Comment on above: Order Comment: Speci men Type: BLOOD SPECIMENOrdering Facility: [facility] Address: [address] [place] [address] Performed By: #### 5 7021-8 ####[facility]ALTHLI [id number] [place] [address] [place] Lymphocytes (Bld) [#/Vol] 0.40 10*3/uL Low 1.00-4.00 [facility] Comment on above: Order Comment: Speci men Type: BLOOD SPECIMENOrdering Facility: [facility] Address: [address] [place] [address] Performed By: #### 5 7021-8 ####[facility] [id number] [place] [address] [place] Lymphocytes/100 WBC (Bld) 14.9 % Normal [facility] Comment on above: Order Comment: Speci men Type: BLOOD SPECIMENOrdering Facility: [facility] Address: [address] [place] [address] Performed By: #### 5 7021-8 ####[facility] PLACIDNCLIA [id number] [place] [address] [place] MCH (RBC) [Entitic mass] 38.0 pg High 26.0-34.0 [facility] Comment on above: Order Comment: Speci men Type: BLOOD SPECIMENOrdering Facility: [facility] Address: [address] [place] [address] Performed By: #### 5 7021-8 ####[facility] PLACIDNCLIA [id number] [place] [address] [place] MCHC (RBC) [Mass/Vol] 34.3 g/dL Normal 30.5-36.0 [facility] Comment on above: Order Comment: Speci men Type: BLOOD SPECIMENOrdering Facility: [facility] Address: [address] [place] [address] Performed By: #### 5 7021-8 ####[facility] [id number] [place] [address] [place] MCV (RBC) [Entitic vol] 110.9 fL High 80.0-100.0 [facility] Comment on above: Order Comment: Speci men Type: BLOOD SPECIMENOrdering Facility: [facility] Address: [address] [place] [address] Performed By: #### 5 7021-8 ####[facility] PLACIDNCMOUNTAIN [facility] [id number] [place] [address] [place] Monocytes (Bld) [#/Vol] 0.43 10*3/uL Normal <0.87 [facility] Comment on above: Order Comment: Speci men Type: BLOOD SPECIMENOrdering Facility: [facility] Address: [address] [place] [address] Performed By: #### 5 7021-8 ####[facility] [id number] [place] [address] [place] Monocytes/100 WBC (Bld) 16.0 % Normal [facility] Comment on above: Order Comment: Speci men Type: BLOOD SPECIMENOrdering Facility: [facility] Address: [address] [place] [address] Performed By: #### 5 7021-8 ####[facility] PLACIDNCLI [id number] [place] [address] [place] Neutrophils (Bld) [#/Vol] 1.70 10*3/uL Normal 1.45-7.50 [facility] Comment on above: Order Comment: Speci men Type: BLOOD SPECIMENOrdering Facility: [facility] Address: [address] [place] [address] Performed By: #### 5 7021-8 ####[facility] RAJINDERRADHA [id number] [place] [address] [place] Neutrophils/100 WBC (Bld) 63.6 % Normal [facility] Comment on above: Order Comment: Speci men Type: BLOOD SPECIMENOrdering Facility: [facility] Address: [address] [place] [address] Performed By: #### 5 7021-8 ####[facility] PLACIDDHEERAJMOUNTAIN WEST [facility]ICAL [facility] [id number] [place] [address] [place] Nucleated RBC (Bld) [#/Vol] 10*3/uL Normal <0.01 [facility] Comment on above: Order Comment: Speci men Type: BLOOD SPECIMENOrdering Facility: [facility] Address: [address] [place] [address] Performed By: #### 5 7021-8 ####[facility] PLACIDDHEERAJHayley [id number] [place] [address] [place] Nucleated RBC/100 WBC (Bld) [Ratio] 0.0 /100 WBC Normal [facility] Comment on above: Order Comment: Speci men Type: BLOOD SPECIMENOrdering Facility: [facility] Address: [address] [place] [address] Performed By: #### 5 7021-8 ####[facility] [id number] [place] [address] [place] Platelet mean volume (Bld) [Entitic vol] 10.0 fL Normal 9.0-12.7 [facility] Comment on above: Order Comment: Speci men Type: BLOOD SPECIMENOrdering Facility: [facility] Address: [address] [place] [address] Performed By: #### 5 7021-8 ####[facility] PLACIDNCLIA [id number] [place] [address] [place] Platelets (Bld) [#/Vol] 211 10*3/uL Normal 150-400 [facility] Comment on above: Order Comment: Speci men Type: BLOOD SPECIMENOrdering Facility: [facility] Address: [address] [place] [address] Performed By: #### 5 7021-8 ####[facility] PLACIDNCLIA [id number] [place] [address] [place] RBC (Bld) [#/Vol] 2.58 10*6/uL Low 3.90-5.20 [facility] Comment on above: Order Comment: Speci men Type: BLOOD SPECIMENOrdering Facility: [facility] Address: [address] [place] [address] Performed By: #### 5 7021-8 ####[facility] [id number] [place] [address] [place] WBC (Bld) [#/Vol] 2.68 10*3/uL Low 3.70-11.00 [facility] Comment on above: Order Comment: Speci men Type: BLOOD SPECIMENOrdering Facility: [facility] Address: [address] [place] [address] Performed By: #### 5 7021-8 ####[facility]ALTHLIA [id number] [place] [address] [place] CNOVSPon 10-07-2023 CNOVSP Normal [facility] Cancer Ag27-29 SerPl-aCncon 10-07-2023 Cancer Ag 27-29 Qn 96.6 [arb'U]/mL High <38.6 C [facility] Comment on above: Order Comment: Speci men Type: BLOOD SPECIMENOrdering Facility: [facility] Address: [address] [place] [address] Result Comment: The CA27.29 test was performed using the Siemens Centaur XP chemiluminometric immunoassay method. Results obtained with different assay methods or kits cannot be used interchangeably. Performed By: #### 1 7842-6 ####[facility] LABCLIA [id number] [address] [place] [address] [place] Comprehensive metabolic 2000 panelon 10-07-2023 Albumin [Mass/Vol] 4.0 g/dL Normal 3.9-4.9 [facility] Comment on above: Order Comment: Speci men Type: BLOOD SPECIMENOrdering Facility: [facility] Address: [address] [place] [address] Performed By: #### 2 4323-8 ####[facility] PLACIDNCMOUNTAIN WEST MEDICAL [facility]ENTER [id number] [place] [address] [place] ALP [Catalytic activity/Vol] 87 U/L Normal 34-123 [facility] Comment on above: Order Comment: Speci men Type: BLOOD SPECIMENOrdering Facility: [facility] Address: [address] [place] [address] Performed By: #### 2 4323-8 ####[facility]A [id number] [place] [address] [place] ALT [Catalytic activity/Vol] 8 U/L Normal 7-38 [facility] Comment on above: Order Comment: Speci men Type: BLOOD SPECIMENOrdering Facility: [facility] Address: [address] [place] [address] Performed By: #### 2 4323-8 ####[facility] PLACIDNCLIA [id number] [place] [address] [place] Anion gap [Moles/Vol] 10 mmol/L Normal 8-15 [facility] Comment on above: Order Comment: Speci men Type: BLOOD SPECIMENOrdering Facility: [facility] Address: [address] [place] [address] Performed By: #### 2 4323-8 ####[facility] MILLTOWNCLIA [id number] [place] [address] [place] AST [Catalytic activity/Vol] 18 U/L Normal 13-35 [facility] Comment on above: Order Comment: Speci men Type: BLOOD SPECIMENOrdering Facility: [facility] Address: [address] [place] [address] Performed By: #### 2 4323-8 ####[facility] MILLTOWNCLIA [id number] [place] [address] [place] Bilirubin [Mass/Vol] 0.4 mg/dL Normal 0.2-1.3 [facility] Comment on above: Order Comment: Speci men Type: BLOOD SPECIMENOrdering Facility: [facility] Address: [address] [place] [address] Performed By: #### 2 4323-8 ####[facility] CENTERWNCLIA [id number] [place] [address] [place] Calcium [Mass/Vol] 9.8 mg/dL Normal 8.5-10.2 [facility] Comment on above: Order Comment: Speci men Type: BLOOD SPECIMENOrdering Facility: [facility] Address: [address] [place] [address] Performed By: #### 2 4323-8 ####[facility] CENTERWNCLIA [id number] [place] [address] [place] Chloride [Moles/Vol] 103 mmol/L Normal 98-107 [facility] Comment on above: Order Comment: Speci men Type: BLOOD SPECIMENOrdering Facility: [facility] Address: [address] [place] [address] Performed By: #### 2 4323-8 ####[facility] CENTERWNCLIA [id number] [place] [address] [place] CO2 [Moles/Vol] 25 mmol/L Normal 22-30 [facility] Comment on above: Order Comment: Speci men Type: BLOOD SPECIMENOrdering Facility: [facility] Address: [address] [place] [address] Performed By: #### 2 4323-8 ####[facility] [id number] [place] [address] [place] Creatinine [Mass/Vol] 0.81 mg/dL Normal 0.58-0.96 [facility] Comment on above: Order Comment: Speci men Type: BLOOD SPECIMENOrdering Facility: [facility] Address: [address] [place] [address] Performed By: #### 2 4323-8 ####[facility] PLACIDNCMOUNTAIN WEST [facility] [id number] [place] [address] [place] Creatinine and Glomerular filtration rate.predicted panel (S/P/Bld) 75 mL/min/1.73m??? Normal >=60 [facility] Comment on above: Order Comment: Speci men Type: BLOOD SPECIMENOrdering Facility: [facility] Address: [address] [place] [address] Result Comment: Nhan mated Glomerular Filtration Rate (eGFR) is calculated using the 2020 CKD-EPI creatinine equation. This equation utilizes serum creatinine, sex, and age as parameters. The creatinine assay has traceable calibration to isotope dilution-mass spectrometry. Refer to KDIGO guidelines for clinical interpretation. In patients with unstable renal function, e.g. those with acute kidney injury, the eGFR may not accurately reflect actual GFR. Performed By: #### 2 4323-8 ####[facility]ITALA [id number] [place] [address] [place] Glucose [Mass/Vol] 97 mg/dL Normal 74-99 [facility] Comment on above: Order Comment: Speci men Type: BLOOD SPECIMENOrdering Facility: [facility] Address: [address] [place] [address] Result Comment: The [place] Diabetes Association (ADA) provides guidance for cutoff values for fasting glucose and random glucose. The ADA defines fasting as no caloric intake for at least 8 hours. Fasting plasma glucose results between 100 to 125 mg/dL indicate increased risk for diabetes (prediabetes).Fasting plasma glucose results greater than or equal to 126 mg/dL meet the criteria for diagnosis of diabetes. In the absence of unequivocal hyperglycemia, results should be confirmed by repeat testing. In a patient with classic symptoms of hyperglycemia or hyperglycemic crisis, random plasma glucose results greater than or equal to 200 mg/dL meet the criteria for diagnosis of diabetes.Reference: Standards of Medical Care in Diabetes 2016, [place] [employer] Association. Diabetes Care. 2016.39(Suppl 1). Performed By: #### 2 4323-8 ####[facility] PLACIDSUNDAY [id number] [place] [address] [place] Potassium [Moles/Vol] 4.1 mmol/L Normal 3.7-5.1 [facility] Comment on above: Order Comment: Speci men Type: BLOOD SPECIMENOrdering Facility: [facility] Address: [address] [place] [address] Performed By: #### 2 4323-8 ####[facility] HOSPITALHayley [id number] [place] [address] [place] Protein [Mass/Vol] 6.4 g/dL Normal 6.3-8.0 [facility] Comment on above: Order Comment: Speci men Type: BLOOD SPECIMENOrdering Facility: [facility] Address: [address] [id number] Performed By: #### 2 4323-8 ####[facility]ALTHABRAHAM [id number] [place] [address] [place] Sodium [Moles/Vol] 138 mmol/L Normal 136-144 [facility] Comment on above: Order Comment: Speci men Type: BLOOD SPECIMENOrdering Facility: [facility] Address: [address] [id number] Performed By: #### 2 4323-8 ####[facility] MILLTOWNCLIA [id number] [place] [address] [place] Urea nitrogen [Mass/Vol] 14 mg/dL Normal 7-21 [facility] Comment on above: Order Comment: Speci men Type: BLOOD SPECIMENOrdering Facility: [facility] Address: [address] [place] [address] Performed By: #### 2 4323-8 ####[facility] MILLTOWNCLIA [id number] [place] [address] [place] CBC W Auto Differential pane l (Bld)on 09-09-2023 Basophils (Bld) [#/Vol] 0.06 10*3/uL Normal <0.11 [facility] Comment on above: Order Comment: Speci men Type: BLOOD SPECIMENOrdering Facility: [facility] Address: [address] [place] [address] Performed By: #### L [id number] ####[facility] LABCLIA [id number] [place] [address] [place]#### 37807-3 ####[facility] MILLWNCLIA [id number] [place] [address] [place] [facility] LABCLIA [id number] [place] [address] [place] Basophils/100 WBC (Bld) 2.0 % Normal [facility] Comment on above: Order Comment: Speci men Type: BLOOD SPECIMENOrdering Facility: [facility] Address: [address] [place] [address] Performed By: #### L [id number] ####[facility] LABCLIA [id number] [place] [address] [place]#### 64373-9 ####[facility] MILLWNCLIA [id number] [place] [address] [place] [facility] LABCLIA [id number] [place] [address] [place] Dacrocytes LM Ql (Bld) Few Normal [facility] Comment on above: Order Comment: Speci men Type: BLOOD SPECIMENOrdering Facility: [facility] Address: [address] [place] [address] Performed By: #### L [id number] ####[facility] LABCLIA [id number] [place] [address] [place]#### 29390-5 ####[facility] MILLWNCLIA [id number] [address] STATES OF [facility] LABCLIA [id number] [place] [address] [place] Differential cell count method Nom (Bld) Manual Normal [facility] Comment on above: Order Comment: Speci men Type: BLOOD SPECIMENOrdering Facility: [facility] Address: [address] [place] [address] Performed By: #### L [id number] ####[facility] LABCLIA [id number] [place] [address] [place]#### 06002-8 ####[facility] CENTERWNCLIA [id number] [place] [address] [place] [facility] LABCLIA [id number] [place] [address] [place] Eosinophils (Bld) [#/Vol] 0.03 10*3/uL Normal <0.46 [facility] Comment on above: Order Comment: Speci men Type: BLOOD SPECIMENOrdering Facility: [facility] Address: [address] [place] [address] Performed By: #### L [id number] ####[facility] LABCLIA [id number] [place] [address] [place]#### 44898-6 ####[facility]ALTHL[facility] [id number] [address] STATES OF [facility] LABCLIA [id number] [place] [address] [place] Eosinophils/100 WBC (Bld) 1.0 % Normal [facility] Comment on above: Order Comment: Speci men Type: BLOOD SPECIMENOrdering Facility: [facility] Address: [address] [place] [address] Performed By: #### L [id number] ####[facility] LABCLIA [id number] [place] [address] [place]#### 03767-4 ####[facility]A [id number] [address] STATES OF [facility] LABCLIA [id number] [place] [address] [place] Erythrocyte distribution width (RBC) [Ratio] 14.1 % Normal 11.5-15.0 [facility] Comment on above: Order Comment: Speci men Type: BLOOD SPECIMENOrdering Facility: [facility] Address: [address] [place] [address] Performed By: #### L [id number] ####[facility] LABCLIA [id number] [place] [address] [place]#### 64374-9 ####[facility] PLACIDNCLIA [id number] [place] [address] [place] [facility] LABCLIA [id number] [place] [address] [place] Hematocrit (Bld) [Volume fraction] 31.1 % Low 36.0-46.0 [facility] Comment on above: Order Comment: Speci men Type: BLOOD SPECIMENOrdering Facility: [facility] Address: [address] [place] [address] Performed By: #### L [id number] ####[facility] LABCLIA [id number] [place] [address] [place]#### 33346-4 ####[facility]ALTHL[facility] [id number] [address] LABCLIA [id number] [place] [address] [place] Hemoglobin (Bld) [Mass/Vol] 10.4 g/dL Low 11.5-15.5 [facility] Comment on above: Order Comment: Speci men Type: BLOOD SPECIMENOrdering Facility: [facility] Address: [address] [place] [address] Performed By: #### L [id number] ####[facility] LABCLIA [id number] [place] [address] [place]#### 08268-5 ####[facility]ALTHL[facility] [id number] [address] STATES OF [facility] LABCLIA [id number] [place] [address] [place] Lymphocytes (Bld) [#/Vol] 0.78 10*3/uL Low 1.00-4.00 [facility] Comment on above: Order Comment: Speci men Type: BLOOD SPECIMENOrdering Facility: [facility] Address: [address] [place] [address] Performed By: #### L [id number] ####[facility] LABCLIA [id number] [place] [address] [place]#### 95785-5 ####[facility] CENTERWNCLIA [id number] [address] LABCLIA [id number] [place] [address] [place] Lymphocytes/100 WBC (Bld) 25.0 % Normal [facility] Comment on above: Order Comment: Speci men Type: BLOOD SPECIMENOrdering Facility: [facility] Address: [address] [place] [address] Performed By: #### L [id number] ####[facility] LABCLIA [id number] [address] [place]#### 23803-8 ####[facility]ITALA [id number] [address] LABCLIA [id number] [place] [address] [place] MCH (RBC) [Entitic mass] 38.0 pg High 26.0-34.0 [facility] Comment on above: Order Comment: Speci men Type: BLOOD SPECIMENOrdering Facility: [facility] Address: [address] [place] [address] Performed By: #### L [id number] ####[facility] LABCLIA [id number] [place] [address] [place]#### 11024-9 ####[facility]ALTHL[facility] [id number] [address] LABCLIA [id number] [place] [address] [place] MCHC (RBC) [Mass/Vol] 33.4 g/dL Normal 30.5-36.0 [facility] Comment on above: Order Comment: Speci men Type: BLOOD SPECIMENOrdering Facility: [facility] Address: [address] [place], [place] [address] Performed By: #### L [id number] ####[facility] LABCLIA [id number] [place] [address] [place]#### 43100-6 ####[facility] CENTERWNCLIA [id number] [place] [address] [place] [facility] LABCLIA [id number] [place] [address] [place] MCV (RBC) [Entitic vol] 113.5 fL High 80.0-100.0 [facility] Comment on above: Order Comment: Speci men Type: BLOOD SPECIMENOrdering Facility: [facility] Address: [address] [place] [address] Performed By: #### L [id number] ####[facility] LABCLIA [id number] [place] [address] [place]#### 12773-6 ####[facility] PLACIDNCLIA [id number] [place] [address] [place] [facility] LABCLIA [id number] [place] [address] [place] Monocytes (Bld) [#/Vol] 0.22 10*3/uL Normal <0.87 [facility] Comment on above: Order Comment: Speci men Type: BLOOD SPECIMENOrdering Facility: [facility] Address: [address] [place], [place] [address] Performed By: #### L [id number] ####[facility] LABCLIA [id number] [place] [address] [place]#### 20546-6 ####[facility] CENTERWNCLIA [id number] [address] [place] [id number] [place] [facility] LABCLIA [id number] [place] [address] [place] Monocytes/100 WBC (Bld) 7.0 % Normal [facility] Comment on above: Order Comment: Speci men Type: BLOOD SPECIMENOrdering Facility: [facility] Address: [address] [place], [place] [address] Performed By: #### L [id number] ####[facility] LABCLIA [id number] [place] [address] [place]#### 60095-9 ####[facility] MILLTOWNCLIA [id number] [address] STATES OF [facility] LABCLIA [id number] [place] [address] [place] MYELO% 1.0 % Normal [facility] Comment on above: Order Comment: Speci men Type: BLOOD SPECIMENOrdering Facility: [facility] Address: [address] [place] [address] Performed By: #### L [id number] ####[facility] LABCLIA [id number] [place] [address] [place]#### 81909-0 ####[facility] PLACIDNCLIA [id number] [place] [address] [place] [facility] LABCLIA [id number] [place] [address] [place] Neutrophils (Bld) [#/Vol] 1.98 10*3/uL Normal 1.45-7.50 [facility] Comment on above: Order Comment: Speci men Type: BLOOD SPECIMENOrdering Facility: [facility] Address: [address] [place], [place] [address] Performed By: #### L [id number] ####[facility] LABCLIA [id number] [place] [address] [place]#### 93475-8 ####[facility]ENTERWNCLIA [id number] [place] [address] [place] AMERICAAD[facility] LABCLIA [id number] [place] [address] [place] Neutrophils/100 WBC (Bld) 64.0 % Normal [facility] Comment on above: Order Comment: Speci men Type: BLOOD SPECIMENOrdering Facility: [facility] Address: [address] [place] [address] Result Comment: See Staff Review. Performed By: #### L [id number] ####[facility] LABCLIA [id number] [place] [address] [place]#### 00002-7 ####[facility]ACIDNCLIA [id number] [place] [address] [place] [facility] LABCLIA [id number] [place] [address] [place] Nucleated RBC (Bld) [#/Vol] 0.03 10*3/uL High <0.01 [facility] Comment on above: Order Comment: Speci men Type: BLOOD SPECIMENOrdering Facility: [facility] Address: [address] [place] [address] Performed By: #### L [id number] ####[facility] LABCLIA [id number] [place] [address] [place]#### 96624-8 ####[facility]ENTERWNCLIA [id number] [place] [address] [place] [facility] LABCLIA [id number] [place] [address] [place] Nucleated RBC/100 WBC (Bld) [Ratio] 1.0 /100 WBC Normal [facility] Comment on above: Order Comment: Speci men Type: BLOOD SPECIMENOrdering Facility: [facility] Address: [address] [place] [address] Performed By: #### L [id number] ####[facility] LABCLIA [id number] [place] [address] [place]#### 81964-0 ####[facility] MILLTOWNCLIA [id number] [place] [address] [place] [facility] LABCLIA [id number] [place] [address] [place] Ovalocytes LM Ql (Bld) Few Normal [facility] Comment on above: Order Comment: Speci men Type: BLOOD SPECIMENOrdering Facility: [facility] Address: [address] [place] [address] Performed By: #### L [id number] ####[facility] LABCLIA [id number] [place] [address] [place]#### 98776-2 ####[facility] PLACIDNCLIA [id number] [place] [address] [place] [facility] LABCLIA [id number] [place] [address] [place] Platelet mean volume (Bld) [Entitic vol] 10.9 fL Normal 9.0-12.7 [facility] Comment on above: Order Comment: Speci men Type: BLOOD SPECIMENOrdering Facility: [facility] Address: [address] [place] [address] Performed By: #### L [id number] ####[facility] LABCLIA [id number] [place] [address] [place]#### 56552-2 ####[facility]ITALA [id number] [place] [address] [place] [facility] LABCLIA [id number] [place] [address] [place] Platelets (Bld) [#/Vol] 219 10*3/uL Normal 150-400 [facility] Comment on above: Order Comment: Speci men Type: BLOOD SPECIMENOrdering Facility: [facility] Address: [address] [place] [address] Performed By: #### L [id number] ####[facility] LABCLIA [id number] [place] [address] [place]#### 07558-7 ####[facility]ALTHLIA [id number] [place] [address] [place] [facility] LABCLIA [id number] [place] [address] [place] Platelets Estimate (Bld) [#/Vol] Adequate Normal [facility] Comment on above: Order Comment: Speci men Type: BLOOD SPECIMENOrdering Facility: [facility] Address: [address] [place] [address] Performed By: #### L [id number] ####[facility] LABCLIA [id number] [place] [address] [place]#### 00274-1 ####[facility]ENTERWNCLIA [id number] [place] [address] [place] [facility] LABCLIA [id number] [place] [address] [place] Polychromasia LM Ql (Bld) Slight Normal [facility] Comment on above: Order Comment: Speci men Type: BLOOD SPECIMENOrdering Facility: [facility] Address: [address] [place] [address] Performed By: #### L [id number] ####[facility] LABCLIA [id number] [place] [address] [place]#### 61235-7 ####[facility] MILLWNCLIA [id number] [place] [address] [place] [facility] LABCLIA [id number] [place] [address] [place] RBC (Bld) [#/Vol] 2.74 10*6/uL Low 3.90-5.20 [facility] Comment on above: Order Comment: Speci men Type: BLOOD SPECIMENOrdering Facility: [facility] Address: [address] [place] [address] Performed By: #### L [id number] ####[facility] LABCLIA [id number] [place] [address] [place]#### 72194-4 ####[facility] PLACIDNCLIA [id number] [place] [address] [place] [facility] LABCLIA [id number] [place] [address] [place] RBC FRAGMENTS Few Abnormal None Seen [facility] Comment on above: Order Comment: Speci men Type: BLOOD SPECIMENOrdering Facility: [facility] Address: [address] [place] [address] Performed By: #### L [id number] ####[facility] LABCLIA [id number] [place] [address] [place]#### 98815-2 ####[facility]ENTERWNCLIA [id number] [place] [address] [place] [facility] LABCLIA [id number] [place] [address] [place] RED CELL MORPH Reviewed: see result s of individual morphologies Normal [facility] Comment on above: Order Comment: Speci men Type: BLOOD SPECIMENOrdering Facility: [facility] Address: [address] [place] [address] Performed By: #### L [id number] ####[facility] LABCLIA [id number] [place] [address] [place]#### 74586-9 ####[facility] MILLTOWNCLIA [id number] [address] LABCLIA [id number] [place] [address] [place] WBC (Bld) [#/Vol] 3.10 10*3/uL Low 3.70-11.00 [facility] Comment on above: Order Comment: Speci men Type: BLOOD SPECIMENOrdering Facility: [facility] Address: [address] [place] [address] Performed By: #### L [id number] ####[facility] LABCLIA [id number] [place] [address] [place]#### 02172-1 ####[facility] CENTERWRILIA [id number] [address] STATES OF [facility] LABCLIA [id number] [place] [address] [place] WBC Left Shift Ql (Bld) Present Normal [facility] Comment on above: Order Comment: Speci men Type: BLOOD SPECIMENOrdering Facility: [facility] Address: [address] [place] [address] Performed By: #### L [id number] ####[facility] LABCLIA [id number] [place] [address] [place]#### 94652-2 ####[facility] PLACIDNCLIA [id number] [place] [address] [place] [facility] LABCLIA [id number] [place] [address] [place] Cancer Ag27-29 SerPl-aCncon 09-09-2023 Cancer Ag 27-29 Qn 93.8 [arb'U]/mL High <38.6 C [facility] Comment on above: Order Comment: Speci men Type: BLOOD SPECIMENOrdering Facility: [facility] Address: [address] [place] [address] Result Comment: The CA27.29 test was performed using the Siemens Arachnoaur XP chemiluminometric immunoassay method. Results obtained with different assay methods or kits cannot be used interchangeably. Performed By: #### 1 7842-6 ####[facility] LABCLIA [id number] [place] [address] [place] Comprehensive metabolic 2000 panelon 09-09-2023 Albumin [Mass/Vol] 4.2 g/dL Normal 3.9-4.9 [facility] Comment on above: Order Comment: Speci men Type: BLOOD SPECIMENOrdering Facility: [facility] Address: [address] [place] [address] Performed By: #### 2 4323-8 ####[facility]ITALA [id number] [place] [address] [place] ALP [Catalytic activity/Vol] 85 U/L Normal 34-123 [facility] Comment on above: Order Comment: Speci men Type: BLOOD SPECIMENOrdering Facility: [facility] Address: [address] [place] [address] Performed By: #### 2 4323-8 ####[facility] PL[facility]IDNCLIA [id number] [place] [address] [place] ALT [Catalytic activity/Vol] 11 U/L Normal 7-38 [facility] Comment on above: Order Comment: Speci men Type: BLOOD SPECIMENOrdering Facility: [facility] Address: [address] [place] [address] Performed By: #### 2 4323-8 ####[facility] RAJINDERWDHEERAJLIA [id number] [place] [address] [place] Anion gap [Moles/Vol] 10 mmol/L Normal 8-15 [facility] Comment on above: Order Comment: Speci men Type: BLOOD SPECIMENOrdering Facility: [facility] Address: [address] [place] [address] Performed By: #### 2 4323-8 ####[facility]ALTHLIA [id number] [place] [address] [place] AST [Catalytic activity/Vol] 20 U/L Normal 13-35 [facility] Comment on above: Order Comment: Speci men Type: BLOOD SPECIMENOrdering Facility: [facility] Address: [address] [place] [address] Performed By: #### 2 4323-8 ####[facility]ALTHLIA [id number] [place] [address] [place] Bilirubin [Mass/Vol] 0.3 mg/dL Normal 0.2-1.3 [facility] Comment on above: Order Comment: Speci men Type: BLOOD SPECIMENOrdering Facility: [facility] Address: [address] [place] [address] Performed By: #### 2 4323-8 ####[facility] PLACIDNCLIA [id number] [place] [address] [place] Calcium [Mass/Vol] 9.8 mg/dL Normal 8.5-10.2 [facility] Comment on above: Order Comment: Speci men Type: BLOOD SPECIMENOrdering Facility: [facility] Address: [address] [place] [address] Performed By: #### 2 4323-8 ####[facility]ENTERWNCLIA [id number] [place] [address] [place] Chloride [Moles/Vol] 101 mmol/L Normal 98-107 [facility] Comment on above: Order Comment: Speci men Type: BLOOD SPECIMENOrdering Facility: [facility] Address: [address] [place] [address] Performed By: #### 2 4323-8 ####[facility]ALTHLI [id number] [place] [address] [place] CO2 [Moles/Vol] 27 mmol/L Normal 22-30 [facility] Comment on above: Order Comment: Speci men Type: BLOOD SPECIMENOrdering Facility: [facility] Address: [address] [place] [address] Performed By: #### 2 4323-8 ####[facility] [id number] [place] [address] [place] Creatinine [Mass/Vol] 0.86 mg/dL Normal 0.58-0.96 [facility] Comment on above: Order Comment: Speci men Type: BLOOD SPECIMENOrdering Facility: [facility] Address: [address] [place] [address] Performed By: #### 2 4323-8 ####[facility] PLACIDNCLIA [id number] [place] [address] [place] [facility] Creatinine and Glomerular filtration rate.predicted panel (S/P/Bld) 70 mL/min/1.73m??? Normal >=60 [facility] Comment on above: Order Comment: Speci men Type: BLOOD SPECIMENOrdering Facility: [facility] Address: [address] [place] [address] Result Comment: Nhan mated Glomerular Filtration Rate (eGFR) is calculated using the 2020 CKD-EPI creatinine equation. This equation utilizes serum creatinine, sex, and age as parameters. The creatinine assay has traceable calibration to isotope dilution-mass spectrometry. Refer to KDIGO guidelines for clinical interpretation. In patients with unstable renal function, e.g. those with acute kidney injury, the eGFR may not accurately reflect actual GFR. Performed By: #### 2 4323-8 ####[facility]ENTERWNCLIA [id number] [place] [address] [place] Glucose [Mass/Vol] 89 mg/dL Normal 74-99 [facility] Comment on above: Order Comment: Specmanjeet men Type: BLOOD SPECIMENOrdering Facility: [facility] Address: [address] [place] [address] Result Comment: The [place] Diabetes Association (ADA) provides guidance for cutoff values for fasting glucose and random glucose. The ADA defines fasting as no caloric intake for at least 8 hours. Fasting plasma glucose results between 100 to 125 mg/dL indicate increased risk for diabetes (prediabetes).Fasting plasma glucose results greater than or equal to 126 mg/dL meet the criteria for diagnosis of diabetes. In the absence of unequivocal hyperglycemia, results should be confirmed by repeat testing. In a patient with classic symptoms of hyperglycemia or hyperglycemic crisis, random plasma glucose results greater than or equal to 200 mg/dL meet the criteria for diagnosis of diabetes.Reference: Standards of Medical Care in Diabetes 2016, [place] Diabetes Association. Diabetes Care. 2016.39(Suppl 1). Performed By: #### 2 4323-8 ####[facility] PLACIDNCLIA [id number] [place] [address] [place] Potassium [Moles/Vol] 4.2 mmol/L Normal 3.7-5.1 [facility] Comment on above: Order Comment: Gianna corbett Type: BLOOD SPECIMENOrdering Facility: [facility] Address: [address] [place] [address] Performed By: #### 2 4323-8 ####[facility] PL[facility]IDNCLIA [id number] [place] [address] [place] Protein [Mass/Vol] 6.9 g/dL Normal 6.3-8.0 [facility] Comment on above: Order Comment: Speci men Type: BLOOD SPECIMENOrdering Facility: [facility] Address: [address] [place] [address] Performed By: #### 2 4323-8 ####[facility] RAJINDERWNCLIA [id number] [place] [address] [place] Sodium [Moles/Vol] 138 mmol/L Normal 136-144 [facility] Comment on above: Order Comment: Speci men Type: BLOOD SPECIMENOrdering Facility: [facility] Address: [address] [place] [address] Performed By: #### 2 4323-8 ####[facility] PLACIDNCA [id number] [address] [place] Urea nitrogen [Mass/Vol] 15 mg/dL Normal 7-21 [facility] Comment on above: Order Comment: Speci men Type: BLOOD SPECIMENOrdering Facility: [facility] Address: [address] [place] [address] Performed By: #### 2 4323-8 ####[facility] PLACIDNCLIA [id number] [address] [place] PATHOLOGIST INTERPRETATION C BC AND DIFFERENTIAL (LAB REFLEX ORDER-NO BILL)on 09-09-2023 Commercial Credit Officer review Rubin (Unsp spec) [Interp] Reviewed by Davey Alberto MD, PhD Normal [facility] Comment on above: Order Comment: Speci men Type: BLOOD SPECIMENOrdering Facility: [facility] Address: [address] [place] [address] Performed By: #### L [id number] ####[facility] LABCLIA [id number] [place] [address] [place]#### 22274-0 ####[facility]ENTERWNCLIA [id number] [place] [address] [place] [facility] LABCLIA [id number] [address] [place] STAFF REVIEW, CBCDIF Normal [facility] Comment on above: Order Comment: Speci men Type: BLOOD SPECIMENOrdering Facility: [facility] Address: [address] [place] [address] [place] [address] Result Comment: Macr ocytic anemia without hypersegmented PMN'sLeukoerythroblastic changesLeukopenia with absolute lymphopenia Performed By: #### L [id number] ####[facility] LABCLIA [id number] [place] [address] [place]#### 40393-8 ####[facility] RACHELLE MILLPEWAUKEENCLIA [id number] [place] [address] [place] [facility] LABCLIA [id number] [place] [address] [place] NM Whole body Bone Viewson 0 05-08-2023 [facility] Echocardiogramon 10-22-[address] [facility] [place] [address] [phone], TRANSTHORACIC ECHOCARDIOGRAM REPORT Patient Name: MARINA Gutierrez Physician: [id number] Dimas MORAES MD Study Date: 10/22/2022 Referring DIMAS RUIZ Physician: MRN/PID: [id number] PCP: Accession/Order#: [id number] Department [facility] Echo Lab Location: Date of : 1945 Fellow: Gender: F Nurse: Tamar Box RN Admit Date: Cnc Lathe Programmer: Jake Ramos RD Admission Status: Outpatient Additional Staff: Height: 152.40 cm CC Report to: Weight: 94.35 kg Study Type: Echocardiogram BSA: 1.90 m2 Diagnosis/ICD: R06.02-Shortness of breath Indication: Procedure/CPT: Echo Complete w Full Doppler-34262 Study Detail: The following Echo studies were performed: 2D, M-Mode, color flow and Doppler. Definity used as a contrast agent for endocardial border definition and agitated saline used as a contrast agent for intraseptal flow evaluation. Total contrast used for this procedure was 1.75cc mL via IV push. PHYSICIAN INTERPRETATION: Left Ventricle: Left ventricular systolic function is normal, with an estimated ejection fraction of 60-65%. There are no regional wall motion abnormalities. The left ventricular cavity size is normal. Spectral Doppler shows a pseudonormal pattern of left ventricular diastolic filling. Left Atrium: The left atrium is normal in size. A bubble study using agitated saline was performed. Bubble study is negative. Right Ventricle: The right ventricle is normal in size. There is normal right ventricular global systolic function. Right Atrium: The right atrium is normal in size. Aortic Valve: The aortic valve is probably trileaflet. There is no evidence of aortic valve regurgitation. The peak instantaneous gradient of the aortic valve is 13.5 mmHg. The mean gradient of the aortic valve is 7.0 mmHg. Mitral Valve: The mitral valve is normal in structure. There is no evidence of mitral valve regurgitation. Tricuspid Valve: The tricuspid valve is structurally normal. No evidence of tricuspid regurgitation. Pulmonic Valve: The pulmonic valve is not well visualized. There is no indication of pulmonic valve regurgitation. Pericardium: There is no pericardial effusion noted. Aorta: The aortic root is normal. Systemic Veins: The inferior vena cava appears to be of normal size. There is IVC inspiratory collapse greater than 50%. CONCLUSIONS: 1. Left ventricular systolic function is normal with a 60-65% estimated ejection fraction. 2. Spectral Doppler shows a pseudonormal pattern of left ventricular diastolic filling. QUANTITATIVE DATA SUMMARY: 2D MEASUREMENTS: Normal Ranges: Ao Root d: 2.90 cm (2.0-3.7cm) LAs: 3.80 cm (2.7-4.0cm) IVSd: 0.82 cm (0.6-1.1cm) LVPWd: 0.94 cm (0.6-1.1cm) LVIDd: 4.97 cm (3.9-5.9cm) LVIDs: 2.75 cm LV Mass Index: 80.1 g/m2 LV % FS 44.7 % LA VOLUME: Normal Ranges: LA Vol A4C: 54.6 ml (22+/-6mL/m2) LA Vol A2C: 34.7 ml LA Vol BP: 44.2 ml LA Vol Index A4C: 28.8ml/m2 LA Vol Index A2C: 18.3 ml/m2 LA Vol Index BP: 23.3 ml/m2 LA Area A4C: 19.1 cm2 LA Area A2C: 15.0 cm2 LA Major Burnside A4C: 5.7 cm LA Major Burnside A2C: 5.5 cm LA Volume Index: 28.2 ml/m2 LA Vol A4C: 53.5 ml LA Vol A2C: 35.0 ml LV SYSTOLIC FUNCTION BY 2D PLANIMETRY (MOD): Normal Ranges: EF-A4C View: 58.4 % (>=55%) EF-A2C View: 66.4 % EF-Biplane: 63.0 % LV DIASTOLIC FUNCTION: Normal Ranges: MV Peak E: 1.00 m/s (0.7-1.2 m/s) MV Peak A: 0.88 m/s (0.42-0.7 m/s) E/A Ratio: 1.14 (1.0-2.2) MV lateral e' 0.12 m/s MV medial e' 0.09 m/s MITRAL VALVE: Normal Ranges: MV DT: 239 msec (150-240msec) AORTIC VALVE: Normal Ranges: AoV Vmax: 1.84 m/s (<=1.7m/s) AoV Peak P.5 mmHg (<20mmHg) AoV Mean P.0 mmHg (1.7-11.5mmHg) LVOT Max Charissa: 1.27 m/s (<=1.1m/s) AoV VTI: 44.30 cm (18-25cm) LVOT VTI: 34.20 cm LVOT Diameter: 1.70 cm (1.8-2.4cm) AoV Area, VTI: 1.75 cm2 (2.5-5.5cm2) AoV Area,Vmax: 1.57 cm2 (2.5-4.5cm2) AoV Dimensionless Index: 0.77 RIGHT VENTRICLE: RV Basal 3.87 cm RV Mid 2.37 cm RV Major 8.4 cm TAPSE: 25.4 mm RV s' 0.13 m/s PULMONIC VALVE: Normal Ranges: PV Accel Time: 74 msec (>120ms) PV Max Charissa: 0.9 m/s (0.6-0.9m/s) PV Max P.4 mmHg [id number] Dimas Ruiz MD Electronically signed on 10/23/2022 at 1:01:23 PM Final Normal [facility] Echocardiography Please click on the link to view the study images Normal [address] Work Phone: Narrative Note - Outpatient- CPS for definityon 10-22-2022 Narrative Note - Outpatient-CPS for definity Narrative Note: Discipline/ClinicCPS for definity Description Was called to CPS department to give Definity. TAMIE Gilliam started a 22g IV in the L FA via US after two unsuccessful attempts by this RN. Flushed the IV with normal saline. Then the shampoo technician instructed to give 1.75 ml of Definity. Exam completed and IV flushed with normal saline and d/c with angiocath intact. Dressing applied to IV location. Patient tolerated without complaint Electronic Signatures: Tamar Box (RN) (Signed 22-Oct-2022 14:13) Authored: Narrative Note - OP Last Updated: 22-Oct-2022 14:13 by Tamar Box (RN) Normal [facility] Lipid Panelon 10-20-2022 Cholesterol [Mass/Vol] 181 mg/dL 0 - [address] Work Phone: Comment on above: . AGE DESIRABLE BORD ALEXANDRA HIGH HIGH 0-19 Y 0 - 169 170 - 199 >/= 200 20-24 Y 0 - 189 190 - 224 >/= 225 >24 Y 0 - 199 200 - 239 >/= 240 All ranges are based on fasting samples. Specific therapeutic targets will vary based on patient-specific cardiac risk.. Pediatric guidelines reference:Pediatrics 2011, 128(S5). Adult guidelines reference: NCEP ATPIII Guidelines, JOSE EDUARDO 2001, 258:2486-97. Venipuncture immediately after or during the administration of Metamizole may lead to falsely low results. Testing should be performed immediately prior to Metamizole dosing. Cholesterol in HDL [Mass/Vol] 49.0 mg/dL [place] [address] [employer] Work Phone: Comment on above: . AGE VERY LOW LOW N ORMAL HIGH 0-19 Y < 35 < 40 40-45 ---- 20- 24 Y ---- < 40 >45 ---- >24 Y ---- < 40 40-60 >60. Cholesterol in LDL [Mass/Vol] 106 mg/dL above high threshold 0 - 99 [employer] Work Phone: Comment on above: . NEAR BORD AGE TIM RABLE OPTIMAL HIGH HIGH VERY HIGH 0-19 Y 0 - 109 --- 110-129 >/= 130 ---- 20-24 Y 0 - 119 --- 120-159 >/= 160 ---- >24 Y 0 - 99 100-129 130-159 160-189 >/=190. Cholesterol.total/Cho lesterol in HDL [Mass ratio] 3.7 {ratio} [employer] Work Phone: Comment on above: REF VALUESDESIRABLE < 3.4HIGH RISK > 5.0 Triglyceride [Mass/Vol] 129 mg/dL 0 - 149 [employer] Work Phone: Comment on above: . AGE DESIRABLE BORD ALEXANDRA HIGH HIGH VERY HIGH 0 D-90 D 19 - 174 ---- ---- ----91 D- 9 Y 0 - 74 75 - 99 >/= 100 ---- 10-19 Y 0 - 89 90 - 129 >/= 130 ---- 20-24 Y 0 - 114 115 - 149 >/= 150 ---- >24 Y 0 - 149 150 - 199 200- 499 >/= 500. Venipuncture immediately after or during the administration of Metamizole may lead to falsely low results. Testing should be performed immediately prior to Metamizole dosing. Lipid Panel 26 mg/dL 0 - 40 [employer] Work Phone: No Panel Informationon 10-20 43 pg/mL 0 - 99 [employer] Work Phone: Comment on above: . <100 pg/mL - Heart failure gltydpbx854-788 pg/mL - Intermediate probability of acute heart. failure exacerbation. Correlate with clinical. context and patient history. >=300 pg/mL - Heart Failure likely. Correlate with clinical. context and patient history.BNP testing is performed using different testing methodology at [facility] than at other [facility]. Direct result comparisons should only be made within the same method. VAS LAB Venous Duplex Ultra sound DVTon 10-20-2022 VAS LAB Venous [place] [address] [phone], Vascular Lab Report Lower Venous Duplex Ultrasound Patient Name: MARINA GARCIADANICA Reading Physician: [id number] Omkar Tristan MD Study Date: 10/20/2022 Referring Physician: DIMAS RUIZ MRN/PID: [id number] PCP: Accession/Order#: [id number] CC Report to: Date of : 1945 Technologist: Chester Barnett RVT Gender: F Technologist 2: Admission Status: Outpatient Location Performed: [facility] Diagnosis/ICD: M79.604-Pain in right leg; M79.605-Pain in left leg Procedure/CPT: 76077 Peripheral venous duplex scan for DVT Limited-[id number] Pertinent History: Leg pain. CONCLUSIONS: Right Lower Venous: No evidence of acute deep vein thrombus visualized in the right lower extremity. Difficult bilaterally due to shadowing from calcified arteries. Left Lower Venous: No evidence of acute deep vein thrombus visualized in the left lower extremity. Imaging AND Doppler Findings: Right Compressible Thrombus Flow Distal External Iliac Spontaneous/Phasic CFV Yes None Spontaneous/Phasic PFV Yes None FV Proximal Yes None Spontaneous/Phasic FV Mid Yes None FV Distal Yes None Popliteal Yes None Spontaneous/Phasic Peroneal Yes None PTV Yes None Left Compress Thrombus Flow Distal External Iliac Spontaneous/Phasic CFV Yes None Spontaneous/Phasic PFV Yes None FV Proximal Yes None Spontaneous/Phasic FV Mid Yes None FV Distal Yes None Popliteal Yes None Spontaneous/Phasic Peroneal Yes None PTV Yes None [id number] Omkar Tristan MD Final [facility] VAS LAB Venous Duplex Ultra sound for DVTon 10-20-2022 VAS LAB Venous Duplex Ultrasound for DVT -Cardiology- [place] Gely Morales Work Phone: Office Visit (Cardiology)on 10-09-2022 Follow-up visit Diagnoses/Problems Health Maintenance/Risks Encounter for preventive health examination (V70.0) (Z00.00) Assessed Exertional dyspnea (786.09) (R06.09) Leg edema (782.3) (R60.0) Cardiovascular disorder (429.2) (I25.10) Orders Cardiovascular disorder Brain Natriuretic Peptide BNP; Status:Active; Requested for:[id number]; Cardiovascular disorder, Exertional dyspnea Echocardiogram; Status:Hold For - Scheduling; Requested for:[id number]; Cardiovascular disorder, Leg edema Lipid Panel; Status:Active; Requested for:[id number]; [facility] Venous Duplex Ultrasound for DVT; Status:Hold For - Scheduling; Requested for:[id number]; Laterality : Bilateral Health Maintenance IO EKG Electrocardiogram- 12 Lead; Status:Complete; Done: [id number] SocHx: Does not use tobacco Tobacco Use Screening; Status:Complete; Done: 64Mlm8301 Chief Complaint Shortness of breath History of Present [id number] female with a medical history of recurrent pleural effusions, metastatic breast cancer, Echocardiogram December 11, 2009: Normal left ventricular ejection fraction (65%,), mild left atrial enlargement, mild mitral regurgitation, mild tricuspid regurgitation Stress test December 11, 2009: Rest and stress SPECT Cardiolite imaging showed normal myocardial perfusion Holter monitor June 03, 2010: No sustained tachyarrhythmias noted. Patient here to establish care with a sock lining examiner. She notes shortness of breath with exertion that is mild to moderate. However that has remained stable for the past few years. She does note trace lower extremity edema and notes that her extremities are sore and painful and the soreness has been worsening over the past few weeks. She denies any orthopnea/PND. Denies any exertional angina. Surgical History Problems History of Hysterectomy History of Lung surgery History of Tubal ligation History of Wrist surgery Current Meds Medication NameInstruction Carvedilol 12.5 MG Oral TabletTAKE 1 TABLET BY MOUTH TWICE A DAY FOR HEART Furosemide 20 MG Oral TabletTAKE 1 TABLET BY MOUTH EVERY MORNING X3 DAYS THEN TAKE 1 TABLET EVERY EVENING NEEDED FOR EDEMMA Ibrance 125 MG Oral TabletTAKE 1 TABLET Daily on for 21 days, then off for 7 days, then resume Venlafaxine HCl ER 37.5 MG Oral Capsule Extended Release 24 HourTAKE 1 CAPSULE BY MOUTH EVERY DAY Allergies Medication Contrast Media Ready-Box MISC Recorded By: Lili Stoddard; 10/09/2022 3:42:32 PM Sulfa Drugs Other; Recorded By: Lili Stoddard; 10/09/2022 3:42:32 PM Family History Brother Family history of diabetes mellitus (V18.0) (Z83.3) Family history of malignant neoplasm of prostate (V16.42) (Z80.42) Family history of myocardial infarction (V17.3) (Z82.49) Social History Problems Daily caffeine consumption Does not use tobacco (V49.89) (Z78.9) No alcohol use No illicit drug use Review of Systems Constitutional: Denies any fever or chills Eyes: Denies any eye pain or blurry vision ENT: Denies any ear pain or hearing loss Cardiovascular: The heart rate is not slow, the heart rate is not fast Respiratory: Denies any asthma/wheezing Gastrointestinal: Denies any pierre colored stools or fatty food intolerance Genitourinary: Denies any blood in the urine or pelvic pain Musculoskeletal: Denies any swelling in the joints or difficulty walking Skin: Denies any skin lumps or skin lesions Neurological: Denies any dizziness/tingling Vitals Vital Signs Recorded: 91Tle5775 03:39PM Heart Rate81 Ynhaybhr155 Vbmqmedsu10 Height4 ft 11 in Ncnqlg158 lb 8 oz BMI Ignkqxepbq42.52 kg/m2 BSA Calculated1.88 Tobacco Useb) No Falls Screening (Age 18+)a) No falls within the last year O2 Glctsffeju04 Physical Exam General: AANDOx3 HEENT: NC/AT; EOMI; PERRLA, external ear is normal Neck: supple; no JVD Chest: CTAB; no wheezing CVS: S1S2 normal, no murmurs Abdomen: Soft, NT/ND, no organomegaly Extremities: no clubbing/cyanosis/edema Neuro: Grossly intact Impressions 77-year-old female with a medical history of recurrent pleural effusions, metastatic breast cancer, Echocardiogram December 11, 2009: Normal left ventricular ejection fraction (65%,), mild left atrial enlargement, mild mitral regurgitation, mild tricuspid regurgitation Stress test December 11, 2009: Rest and stress SPECT Cardiolite imaging showed normal myocardial perfusion Holter monitor June 03, 2010: No sustained tachyarrhythmias noted. Patient here to establish care with a sock lining examiner. She notes shortness of breath with exertion that is mild to moderate. However that has remained stable for the past few years. She does note trace lower extremity edema and notes that her extremities are sore and painful and the soreness has been worsening over the past few weeks. She denies any orthopnea/PND. Denies any exertional angina. Plan: -Overall the patient only appears to have trace lower extremity edema. In the absence of any JVD/rales (more content not included)... Normal [facility] Tobacco Screening.on 023 Fall risk assessment a) No falls within the last year [facility] Work Phone: Tobacco use status [facility] b) No [facility] Work Phone: Order Reconciliationon 03-25 Order Reconciliation Page 1 Discharge Reconciliation Document Reconciliation Type: Discharge requested on behalf of Keith Cao (Physician) done by Keith Cao) Discharge - Reconciliation: 25-Mar-2022 07:12 by: Keith Cao) Home Medications EnteredHOME MEDICATIONS AT DISCHARGE DateReconciliation Comment/ Additional Information biotin 1000 mcg oral tablet 1 tab(s) orally once a day 13-Mar-2022 12:19 biotin 1000 mcg oral tablet 1 tab(s) orally once a day 13-Mar-2022 12:19 biotin 1000 mcg oral tablet is continued as biotin 1000 mcg oral tablet Calcium 600+D 600 mg-5 mcg (200 intl units) oral tablet 1 tab(s) orally once a day 13-Mar-2022 12:19 Calcium 600+D 600 mg-5 mcg (200 intl units) oral tablet 1 tab(s) orally once a day 13-Mar-2022 12:19 Calcium 600+D 600 mg-5 mcg (200 intl units) oral tablet is continued as Calcium 600+D 600 mg-5 mcg (200 intl units) oral tablet Coreg 12.5 mg oral tablet 1 tab(s) orally 2 times a day 13-Mar-2022 12:19 Coreg 12.5 mg oral tablet 1 tab(s) orally 2 times a day 13-Mar-2022 12:19 Coreg 12.5 mg oral tablet is continued as Coreg 12.5 mg oral tablet Effexor 37.5 mg oral tablet 1 tab(s) orally once a day 13-Mar-2022 12:19 Effexor 37.5 mg oral tablet 1 tab(s) orally once a day 13-Mar-2022 12:19 Effexor 37.5 mg oral tablet is continued as Effexor 37.5 mg oral tablet FLAXIDEX every 28 days 15-Apr-2021 10:05 FLAXIDEX every 28 days 15-Apr-2021 10:05 FLAXIDEX is continued as FLAXIDEX Ibrance 3 weeks on, 1 week off 15-Apr-2021 10:04 Ibrance 3 weeks on, 1 week off 15-Apr-2021 10:04 Ibrance is continued as Ibrance Multiple Vitamins oral capsule 1 cap(s) orally once a day 13-Mar-2022 12:19 Multiple Vitamins oral capsule 1 cap(s) orally once a day 13-Mar-2022 12:19 Multiple Vitamins oral capsule is continued as Multiple Vitamins oral capsule PriLOSEC OTC 20 mg oral delayed release tablet 1 tab(s) orally once a day 15-Apr-2021 10:05 PriLOSEC OTC 20 mg oral delayed release tablet 1 tab(s) orally once a day 15-Apr-2021 10:05 PriLOSEC OTC 20 mg oral delayed release tablet is continued as PriLOSEC OTC 20 mg oral delayed release tablet Home Medications Added During Discharge Reconciliation Additional Patient Instructions Follow printed discharge instructions Discharge Discharge Diagnosis< H25.811 Combined forms of age-related cataract of right eye Discharge Provider, Keith Cao Discharge Disposition : .Home Condition at Discharge: Satisfactory Discharge Communication Instructions for Nursing Only: Remove IV prior to discharge from hospital. Do not remove any midline, if present, without an order from the provider. Discharge Instructions - PHR After your discharge from the hospital, two Summary of Care Documents will be available online in your Personal Health Record (PHR). 1.Consolidated-Clinical Document Architecture (C-CDA) Patient Discharge Summary This document is a summary of your hospital stay to be kept for your reference.2.C-CDA Visit Summary This document is a summary of your hospital stay to be shared with your follow-up providers (doctor, 911 telecommunicator, physical therapist, etc.). Post Procedure Discharge Criteria Criteria: Easily arousable / responding appropriately; Significant complications are absent; SpO2 = or > 92%, or if SpO2 < 92%, maintains within 2% of baseline; Vital signs +/- 20% of preprocedure status; Ambulates without dizziness / age appropriate activity and ambulatory status returns to pre-procedure baseline. 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 Do not remove any midline, if present, without an order from the provider. Discharge Instructions - PHR After your discharge from the hospital, two Summary of Care Documents will be available online in your Personal Health Record (PHR). 1.Consolidated-Clinical Document Architecture (C-CDA) Patient Discharge Summary This document is a summary of your hospital stay to be kept for your reference.2.C-CDA Visit Summary This document is a summary of your hospital stay to be shared with your follow-up providers (doctor, 911 telecommunicator, physical therapist, etc.). Effexor 37.5 mg oral tablet 1 tab(s) orally once a day FLAXIDEX every 28 days Ibrance 3 weeks on, 1 week off Multiple Vitamins oral capsule 1 cap(s) orally once a day Post Procedure Discharge Criteria Criteria: Easily a (more content not included)... [facility] Patient Profile - Preop v3on 03-21-2022 Patient Profile - Preop v3 Patient Profile - Preop: Initial Info: Patient DemographicsName: MARINA MORAES Date: 1945 Address: [facility] [address], [facility] Primary Phone [phone] Call Attemptedattempt 1 Instructions Givenappropriate clothing, bring responsible adult as the cdl b driver (procedure may be cancelled if no cdl b driver), center location, insurance information Prep Instructions Reviewedyes How to be AddressedANNE Spoken Language PreferredEnglish Source of Informationpatient Stated Reason for Admissionright cataract Primary Contact Name and NumberTERESA- DAUGHTER IN LAW [phone] Medications Brought to Hospitalno General Health: Weight in kg93.5 kilogram(s) Weight in hhe915.1 pound(s) Weight Methodactual (measured) Scale Typestanding Height in feet5 feet Height in inches0 inch(es) Height in cm152.4 centimeter(s) Height Methodstated BMI (kg/m2)40.257 square meter Patient or Family Member Reaction to Anesthesiano previous reaction; no previous family member reaction Blood Avoidance/Restrictionsnon e Previous Transfusion Reactionnot applicable Health Mgmt: Symptoms/Conditions Managed at [place] Barriers to Managing Healthnone Relationship/Environ: Lives Withalone Living Arrangementshouse Resource/Environmental Concernsnone [facility] Anticipated at Transitionnone Tobacco Use: Tobacco Useno Pre-op Checklist: Arrival [id number] Arrival Time07:05 Procedure TypeRIGHT EYE CATARACT NPOyes Last Food Fcjjrp38-Ebp-6384 18:30 Last Clear Fluid Bhkstr49-Pxf-7954 23:00 NPO CommentSIPS OF WATER WITH MEDS ID Band On Patientpatient ID (name), allergy Consent Signedyes H&P Completeyes Anesthesia Assessment Completedyes Chest X-Ray Performednot ordered Preop Antibioticsnot ordered Type and Screen Resultedn/a HCG Urine TestN/A Chlorhexadine Bath Givennot applicable Nasal Antiseptic Appliednot applicable Soap and Water Bath the Night Before Surgeryyes Hair Washed with Shampoonot applicable Bowel Prepno Surgical Site Infection Preventionno Pain Scales and Managementno Additional Information: Information Review: Allergies, Home Meds and Significant Events have been Reviewed and Verified with Patient/Familyyes Allergy, Intolerance, Adverse Event: Allergies: contrast (specific type unknown): Contrast, Hives/Urticaria, Active sulfamethizole: Drug, Hives/Urticaria, Active Electronic Signatures: Jennifer Arriaza) (Signed 25-Mar-2022 07:20) Authored: Initial Info, General Health, Pre-op Checklist, Additional Information January Butt (RN) (Signed 21-Mar-2022 10:12) Authored: Initial Info, General Health, Health Mgmt, Relationship/Environ, Tobacco Use, Pre-op Checklist, Additional Information Last Updated: 25-Mar-2022 07:20 by Jennifer Arriaza (RN) [facility] Order Reconciliationon 03-20 Order Reconciliation Page 1 Discharge Reconciliation Document Reconciliation Type: Discharge requested on behalf of Keith Cao (Physician) done by Keith Cao) Discharge - Reconciliation: 20-Mar-2022 09:42 by: Keith Cao) Home Medications EnteredHOME MEDICATIONS AT DISCHARGE DateReconciliation Comment/ Additional Information biotin 1000 mcg oral tablet 1 tab(s) orally once a day 13-Mar-2022 12:19 biotin 1000 mcg oral tablet 1 tab(s) orally once a day 13-Mar-2022 12:19 biotin 1000 mcg oral tablet is continued as biotin 1000 mcg oral tablet Calcium 600+D 600 mg-5 mcg (200 intl units) oral tablet 1 tab(s) orally once a day 13-Mar-2022 12:19 Calcium 600+D 600 mg-5 mcg (200 intl units) oral tablet 1 tab(s) orally once a day 13-Mar-2022 12:19 Calcium 600+D 600 mg-5 mcg (200 intl units) oral tablet is continued as Calcium 600+D 600 mg-5 mcg (200 intl units) oral tablet Coreg 12.5 mg oral tablet 1 tab(s) orally 2 times a day 13-Mar-2022 12:19 Coreg 12.5 mg oral tablet 1 tab(s) orally 2 times a day 13-Mar-2022 12:19 Coreg 12.5 mg oral tablet is continued as Coreg 12.5 mg oral tablet Effexor 37.5 mg oral tablet 1 tab(s) orally once a day 13-Mar-2022 12:19 Effexor 37.5 mg oral tablet 1 tab(s) orally once a day 13-Mar-2022 12:19 Effexor 37.5 mg oral tablet is continued as Effexor 37.5 mg oral tablet FLAXIDEX every 28 days 15-Apr-2021 10:05 FLAXIDEX every 28 days 15-Apr-2021 10:05 FLAXIDEX is continued as FLAXIDEX Ibrance 3 weeks on, 1 week off 15-Apr-2021 10:04 Ibrance 3 weeks on, 1 week off 15-Apr-2021 10:04 Ibrance is continued as Ibrance Multiple Vitamins oral capsule 1 cap(s) orally once a day 13-Mar-2022 12:19 Multiple Vitamins oral capsule 1 cap(s) orally once a day 13-Mar-2022 12:19 Multiple Vitamins oral capsule is continued as Multiple Vitamins oral capsule PriLOSEC OTC 20 mg oral delayed release tablet 1 tab(s) orally once a day 15-Apr-2021 10:05 PriLOSEC OTC 20 mg oral delayed release tablet 1 tab(s) orally once a day 15-Apr-2021 10:05 PriLOSEC OTC 20 mg oral delayed release tablet is continued as PriLOSEC OTC 20 mg oral delayed release tablet Current OrdersDateHOME MEDICATIONS AT DISCHARGE DateReconciliation Comment/ Additional Information Artificial Tears (Preservative Free) SolutionDOSE = 1 drop(s) Left Eye Every 10 Minutes, PRN Dry EyesStop After 4 Doses 13-Mar-2022 09:42 Artificial Tears (Preservative Free) is not required Ketorolac 0.5% Ophthalmic. Solution (ACULAR)DOSE = 1 drop(s) Left Eye Every 10 MinutesStop After 4 Doses 13-Mar-2022 09:42 Ketorolac 0.5% Ophthalmic. is not required Lactated Ringers Infusion IV Bag Volume = 1,000 mL Run at: 30 mL/hr IntraVenous 20-Mar-2022 08:50 Lactated Ringers Infusion is not required Lidocaine 1% - Phenylephrine 1.5% Intravitreal SolutionDOSE = 2 mL Intravitreal OnceClinician Notes: To be administered by surgeon 13-Mar-2022 09:42 Lidocaine 1% - Phenylephrine 1.5% Intravitreal is not required Midazolam Injectable (VERSED)DOSE = 2 mg IntraVenous Push Once 20-Mar-2022 08:50 Midazolam Injectable is not required Moxifloxacin 0.5% Ophthalmic. Solution (VIGAMOX)DOSE = 1 mL Left Eye OnceClinician Notes: To be administered by surgeon 13-Mar-2022 09:42 Moxifloxacin 0.5% Ophthalmic. is not required Phenylephrine 10% - Tropicamide 1% Ophthalmic Solution (MYDRIATIC COCKTAIL)DOSE = 1 drop(s) Left Eye Every 10 MinutesStop After 4 Doses 13-Mar-2022 09:42 Phenylephrine 10% - Tropicamide 1% Ophthalmic is not required Home Medications Added During Discharge Reconciliation Additional Patient Instructions Follow printed discharge instructions Discharge Discharge Diagnosis< H25.812 Combined form of age-related cataract, left eye Discharge Provider, Keith Cao Discharge Disposition : .Home Condition at Discharge: Satisfactory Discharge Communication Instructions for Nursing Only: Remove IV prior to discharge from hospital. Do not remove any midline, if present, without an order from the provider. Discharge Instructions - PHR After your discharge from the hospital, two Summary of Care Documents will be available online in your Personal Health Record (PHR). 1.Consolidated-Clinical Document Architecture (C-CDA) Patient Discharge Summary This document is a summary of your hospital stay to be kept for your reference.2.C-CDA Visit Summary This document is a summary of your hospital stay to be shared with your follow-up providers (doctor, 911 telecommunicator, physical therapist, etc.). Post Procedure Discharge Criteria Criteria: Easily arousable / responding appropriately; Significant complications are absent; SpO2 = or > 92%, or if SpO2 < 92%, maintains within 2% of baseline; Vital signs +/- 20% of preprocedure status; Ambulates without dizziness / age appropriate activity and ambulatory status returns to pre-procedure baseline. All Active Home Medications at time of Discharge Reconciliation: 20-Mar-2022 09:42 Addition (more content not included)... [facility] Patient Profile - Preop v3on 03-13-2022 Patient Profile - Preop v3 Patient Profile - Preop: Initial Info: Patient DemographicsName: MARINA MORAES Date: 1945 Address: [facility] [address], [address] Primary Phone [phone] Call Attemptedattempt 1 Instructions Givenappropriate clothing, bring responsible adult as the cdl b driver (procedure may be cancelled if no cdl b driver), center location, insurance information Prep Instructions Reviewedyes Instructed to Have No Fluids Aftermidnight How to be AddressedANNE Spoken Language PreferredEnglish Source of Informationpatient Stated Reason for AdmissionLEFT EYE Primary Contact Name and NumberTERESA- DAUGHTER IN LAW [phone] Medications Brought to Hospitalno General Health: Weight in kg92.4 kilogram(s) Weight in zgq080.7 pound(s) Weight Methodactual (measured) Scale Typestanding Height in feet5 feet Height in inches0 inch(es) Height in cm152.4 centimeter(s) Height Methodstated BMI (kg/m2)39.783 square meter Patient or Family Member Reaction to Anesthesiano previous reaction; no previous family member reaction Blood Avoidance/Restrictionsnon e Previous Transfusion Reactionnot applicable Health Mgmt: Symptoms/Conditions Managed at [place] Barriers to Managing Healthnone Relationship/Environ: Lives Withalone Living Arrangementshouse Resource/Environmental Concernsnone [facility] Anticipated at [facility]none Tobacco Use: Tobacco Useno Pre-op Checklist: Arrival [id number] Arrival Time08:50 Procedure TypeLEFT EYE CATARACT NPOyes Last Food Bzcsqa81-Vlr-7563 18:30 Last Clear Fluid Cuneee00-Rwj-5150 08:15 NPO CommentSIPS OF WATER WITH MEDS ID Band On Patientpatient ID (name), allergy Consent Signedyes H&P Completeyes Anesthesia Assessment Completedyes Chest X-Ray Performednot ordered Preop Antibioticsnot ordered Type and Screen Resultedn/a HCG Urine TestN/A Chlorhexadine Bath Givennot applicable Nasal Antiseptic Appliednot applicable Soap and Water Bath the Night Before Surgeryyes Hair Washed with Shampoonot applicable Bowel Prepno Surgical Site Infection Preventionno Pain Scales and Managementno Additional Information: Information Review: Allergies, Home Meds and Significant Events have been Reviewed and Verified with Patient/Familyyes Allergy, Intolerance, Adverse Event: Allergies: contrast (specific type unknown): Contrast, Hives/Urticaria, Active sulfamethizole: Drug, Hives/Urticaria, Active Problem List: Medical History: Hypertension: Catalog Name: Essential (primary) hypertension GERD (gastroesophageal reflux disease): Catalog Name: Gastro-esophageal reflux disease without esophagitis Anxiety and depression: Catalog Name: Anxiety disorder, unspecified LAURA on CPAP: Catalog Name: Obstructive sleep apnea (adult) (pediatric) Breast cancer: Catalog Name: Malignant neoplasm of unspecified site of unspecified female breast Surg History: History of mastectomy: Catalog Name: Acquired absence of unspecified breast and nipple History of lung surgery: Catalog Name: Other specified postprocedural states History of tubal ligation: Catalog Name: Tubal ligation status Wrist fracture: Catalog Name: Fracture of unspecified carpal bone, unspecified wrist, initial encounter for closed fracture Total knee replacement status: Catalog Name: Presence of unspecified artificial knee joint Electronic Signatures: Hilaria Weber (RN) (Signed 20-Mar-2022 09:30) Authored: Initial Info, General Health, Health Mgmt, Relationship/Environ, Pre-op Checklist, Additional Information January Butt (RN) (Signed 13-Mar-2022 12:42) Authored: Initial Info, General Health, Tobacco Use, Additional Information Last Updated: 20-Mar-2022 09:30 by Hilaria Weber (RN) [facility] [place] 02-27-2022 [facility] Office Visit (AGMIL) ----- AMITAMARINA ([id number]) 1945 F Date Time Provider Department 02/27/22 11:30 AM TATUM SANTANA During your visit today, we recorded the following information about you: Pulse Respiration Blood pressure Weight 64/minute 16/minute 128/66 94.3 kg Height 1.524 m Tatum Santana MD 02/27/2022 11:59 AM Signed Marina Nickkary is a 76 year old female presents for evaluation of leg pain. 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 Her BMI is 41. She had a RLE US done 12/2021 that showed no evidence of DVT. She was referred by her pcp for tender and raised on legs. The pt complains of some pain in her B ankles as well as some superficial bumps she has noticed that cause her discomfort when she is having the area massaged. She denies claudication or rest pain, though she does occasionally get a charliehorse at night. She has no tissue loss. She has no swelling in her legs and denies swelling. She does wear compression stockngs because they feel good to her and she was encouraged to keep doing this. She has easily palpable DP/PT pulses and I have a low suspicion of significant arterial disease. She dose have some superficial masses that you can feel mildly under the skin that are without infection or inflammation. I suspect they might be c/w something like a benign lymphoma, but will defer to pcp for further workup. HISTORIES: PAST MEDICAL HISTORY Diagnosis Date Bone metastases (HCC) 02/15/2019 Esophageal reflux Malignant neoplasm of upper-outer quadrant of right breast in female, estrogen receptor positive (HCC) 01/13/2019 Malignant neoplasm of upper-outer quadrant of right breast in female, estrogen receptor positive (HCC) 01/13/2019 Unspecified sleep apnea PAST SURGICAL HISTORY Procedure Laterality Date BREAST RECONSTRUCTION 2011 right BX BREAST PERC VACUUM/ROTN 04/18/13 left - benign BX/EXC LYMPH NODE OPEN DEEP AXILLARY NODE 04/20/2007 Negative HERNIA REPAIR HX 08/18/2016 HYSTERECTOMY HX 10/30 MASTECTOMY, PARTIAL 03/04/2007 Right upper outer quadrant PAST SURGICAL HISTORY OF 2006 left wrist fx ORIF PAST SURGICAL HISTORY OF 1997 left wrist FX - ex-fix PAST SURGICAL HISTORY OF tubal ligation Social History Tobacco Use Smoking status: Former Types: Cigarettes Quit date: 03/18/1979 Years since quittin.9 Smokeless tobacco: Never Tobacco comments: Pt smoked 1 cigarette daily on AND off x 10 years. Vaping Use Vaping Use: Never used Substance Use Topics Alcohol use: Yes Comment: occ Drug use: No MEDICATIONS: Current Outpatient Medications Medication Sig propylene glycol (SYSTANE BALANCE OPHTHALMIC) Use 1 Drop in eyes three times daily. multivitamin with minerals (HAIR,SKIN AND NAILS) tablet Take 1 tablet by mouth every other day. Chlorhexidine Gluconate (PERIDEX) 0.12 % solution Use 15 mL as instructed twice daily. Rinse around mouth for 30 seconds then expectorate fluorometholone (FML LIQUID FILM) 0.1 % ophthalmic suspension Use 1 Drop in both eyes three times daily. palbociclib (IBRANCE) 125 mg tablet Take 1 tablet (125mg) by mouth once daily for 3 weeks on, followed by 1 week off. Take with or without food cyanocobalamin, vitamin B-12, 5,000 mcg cap Take by mouth once daily. melatonin 3 mg tablet Take two tablets by mouth at bedtime as needed. elderberry fruit (ELDERBERRY ORAL) Take by mouth. Daily gummy naproxen sodium (ANAPROX) 220 mg tablet Take 440 mg by mouth as needed. calcium carb/vitamin D3/vit K1 (SOFT CHEWS CALCIUM ORAL) Take 2 Units by mouth once daily. 2 chewables daily senna (SENOKOT) 8.6 mg tab Take 2 tablets by mouth once daily as needed. MULTIVITAMIN ORAL Take 1 tablet by mouth once daily. VENLAFAXINE XR 37.5 mg 24 hr capsule Take 37.5 mg by mouth once daily. carvedilol (COREG) 12.5 mg tablet Take one(1) tablet two(2) times daily. PRILOSEC 20 MG CAP Take by mouth once daily. No current facility-administered medications for this visit. ALLERGIES: ALLERGIES Allergen Reactions Contrast Dye [Iodin* Rash Sulfa (Sulfonamide * Rash, Hives, Unknown REVIEW OF SYSTEMS: All other ROS: negative PHYSICAL EXAM: General appearance: Normal, healthy, well nourished, alert and cooperative individual, in no acute distress. Skin: No lesions, rashes or ulcerations; normal color and turgor. Pulmonary: No wheezing or rhonchi. Breathing unlabored on RA Coronary: RRR Lower Extremities: Feet and toes warm Negative edema Negative Ulcers Neuro: Awake, alert, and oriented., Gait normal. Sensation grossly intact., CN II-XII grossly intact. PULSES: Easily palpable DP/PT pulse IMPRESSION: BLE discomfort No evidence of significant arterial or venous disease PLAN: Continue compression and elevation Continue workup of source of discomfort and/or rodney (more content not included)... Normal [facility] CBC W/AUTO DIFF WBC (20668)O rdered By: T Rail Turner on 02-10-2022 Basophils (Bld) [#/Vol] 0.1 10*3/uL Normal 0.0-0.2 [facility]; [facility] Work Phone: Comment on above: PATIENT NOT FASTINGP ERFORMED BY: RAJ [facility] Uyejql1504 [facility] [id number] Basophils/100 WBC (Bld) 3 % Normal [facility]; [facility] Work Phone: Comment on above: PATIENT NOT FASTINGP ERFORMED BY: CB [facility] Doqjvk2954 [address] [place] [id number] Eosinophils (Bld) [#/Vol] 0.1 10*3/uL Normal 0.0-0.4 [facility]; [facility] Work Phone: Comment on above: PATIENT NOT FASTINGP ERFORMED BY: CB [facility] Suoatw3818 [address]Dublin [place] [id number] Eosinophils/100 WBC (Bld) 4 % Normal [facility]; [facility] Work Phone: Comment on above: PATIENT NOT FASTINGP ERFORMED BY: CB [facility] Ivtgip9529 [address]Dublin [place] [id number] Erythrocyte distribution width (RBC) [Ratio] 13.2 % Normal 11.7-15.4 [facility]; [facility] Work Phone: Comment on above: PATIENT NOT FASTINGP ERFORMED BY: CB [facility] Wpjudm9204 [address] [place] [id number] Hematocrit (Bld) [Volume fraction] 30.7 % Abnormal 34.0-46.6 [facility]; [facility] Work Phone: Comment on above: PATIENT NOT FASTINGP ERFORMED BY: CB [facility] Uybdks4883 [address] [place] [id number] Hemoglobin (Bld) [Mass/Vol] 10.6 g/dL Abnormal 11.1-15.9 [facility]; [facility] Work Phone: Comment on above: PATIENT NOT FASTINGP ERFORMED BY: CB [facility] Cyelue2857 [address]Dublin [place] [id number] Immature granulocytes (Bld) [#/Vol] 0.0 10*3/uL Normal 0.0-0.1 [facility]; [facility] Work Phone: Comment on above: PATIENT NOT FASTINGP ERFORMED BY: CB [facility] Ikxjad8991 [address]Dublin [place] [id number] Immature granulocytes/100 WBC (Bld) 1 % Normal [facility]; [facility] Work Phone: Comment on above: PATIENT NOT FASTINGP ERFORMED BY: CB [facility] Akcgwf6392 [address] [place] [id number] Lymphocytes (Bld) [#/Vol] 0.4 10*3/uL Abnormal 0.7-3.1 [facility]; [facility] Work Phone: Comment on above: PATIENT NOT FASTINGP ERFORMED BY: CB [facility] Ujetob9228 [address]Dublin [place] [id number] Lymphocytes/100 WBC (Bld) 16 % Normal [facility]; [facility] Work Phone: Comment on above: PATIENT NOT FASTINGP ERFORMED BY: CB [facility] Jpfsda6859 [address]Dublin [place] [id number] MCH (RBC) [Entitic mass] 37.2 pg Abnormal 26.6-33.0 [facility]; [facility] Work Phone: Comment on above: PATIENT NOT FASTINGP ERFORMED BY: CB [facility] Dkwdla7007 [address] [place] [id number] MCHC (RBC) [Mass/Vol] 34.5 g/dL Normal 31.5-35.7 [facility]; [facility] Work Phone: Comment on above: PATIENT NOT FASTINGP ERFORMED BY: CB [facility] Tgsrmd3346 [address] [place] [id number] MCV (RBC) [Entitic vol] 108 fL Abnormal 79-97 [facility]; [facility] Work Phone: Comment on above: PATIENT NOT FASTINGP ERFORMED BY: CB [facility] Blecth9801 [address]Dublin [place] [id number] Monocytes (Bld) [#/Vol] 0.2 10*3/uL Normal 0.1-0.9 [facility]; [facility] Work Phone: Comment on above: PATIENT NOT FASTINGP ERFORMED BY: CB [facility] Rhgjto0353 [address] [place] [id number] Monocytes/100 WBC (Bld) 8 % Normal [facility]; [facility] Work Phone: Comment on above: PATIENT NOT FASTINGP ERFORMED BY: CB [facility] Dsmhrg5656 [address] [place] [id number] Morphology Rubin (Bld) [Interp] Note: Normal [facility]; [facility] Work Phone: Comment on above: Verified by microsco pic examination. PATIENT NOT FASTINGP ERFORMED BY: CB [facility] Iazdru6779 [address] [place] [id number] Neutrophils (Bld) [#/Vol] 1.7 10*3/uL Normal 1.4-7.0 [facility]; [facility] Work Phone: Comment on above: PATIENT NOT FASTINGP ERFORMED BY: CB [facility] Grniab8300 [address] [place] [id number] Neutrophils/100 WBC (Bld) 68 % Normal [facility]; [facility] Work Phone: Comment on above: PATIENT NOT FASTINGP ERFORMED BY: CB [facility] Rpvyme4878 [address] [place] [id number] Platelets (Bld) [#/Vol] 308 10*3/uL Normal 150-450 [facility]; [facility] Work Phone: Comment on above: PATIENT NOT FASTINGP ERFORMED BY: CB [facility] Kxtdoj6495 [address]Dublin [place] [id number] RBC (Bld) [#/Vol] 2.85 10*6/uL Abnormal 3.77-5.28 Compr e[facility]; [facility] Work Phone: Comment on above: Polychromasia presen t PATIENT NOT FASTINGP ERFORMED BY: CB [facility] Ufrxpe2939 [address] [place] [id number] WBC (Bld) [#/Vol] 2.5 10*3/uL Abnormal 3.4-10.8 Compre [facility]; [facility] Work Phone: Comment on above: PATIENT NOT FASTINGP ERFORMED BY: CB [facility] Vyjnlo9466 [address]Dublin [place] [id number] METABOLIC PANEL, COMPREHENSI VE ([id number])Ordered By: T Rail Turner on 02-10-2022 Albumin [Mass/Vol] 4.2 g/dL Normal 3.7-4.7 [facility]; [facility] Work Phone: Comment on above: PATIENT NOT FASTINGP ERFORMED BY: CB [facility] Dtfoml4115 [address]Dublin [place] [id number] Albumin/Globulin [Mass ratio] 1.8 {ratio} Normal 1.2-2.2 [facility]; [facility] Work Phone: Comment on above: PATIENT NOT FASTINGP ERFORMED BY: CB [facility] Vecpht3737 [address] [place] [id number] ALP [Catalytic activity/Vol] 92 U/L Normal 44-121 [facility]; [facility] Work Phone: Comment on above: PATIENT NOT FASTINGP ERFORMED BY: CB [facility] Itmrxb8803 [address] [place] [id number] ALT [Catalytic activity/Vol] 10 U/L Normal 0-32 [facility]; [facility] Work Phone: Comment on above: PATIENT NOT FASTINGP ERFORMED BY: CB [facility] Rdwtdf2251 [address]Dublin [place] [id number] AST [Catalytic activity/Vol] 19 U/L Normal 0-40 [facility]; [facility] Work Phone: Comment on above: PATIENT NOT FASTINGP ERFORMED BY: CB [facility] Iopzai3203 [address] [place] [id number] Bilirubin [Mass/Vol] 0.3 mg/dL Normal 0.0-1.2 [facility]; [facility] Work Phone: Comment on above: PATIENT NOT FASTINGP ERFORMED BY: CB [facility] Jtcpkw2996 [address] [place] [id number] Calcium [Mass/Vol] 9.3 mg/dL Normal 8.7-10.3 [facility]; [facility] Work Phone: Comment on above: PATIENT NOT FASTINGP ERFORMED BY: CB [facility] Xeyuyz0120 [address]Dublin [place] [id number] Chloride [Moles/Vol] 104 mmol/L Normal 96-106 [facility] rehensive Internal Medicine; [facility] Work Phone: Comment on above: PATIENT NOT FASTINGP ERFORMED BY: CB [facility] Oimpha8205 [address]Dublin [place] [id number] CO2 [Moles/Vol] 24 mmol/L Normal 20-29 [facility]; [facility] Work Phone: Comment on above: PATIENT NOT FASTINGP ERFORMED BY: CB [facility] Vwznak5219 [address]Dublin [place] [id number] Creatinine [Mass/Vol] 0.75 mg/dL Normal 0.57-1.00 [facility] prehensive Internal Medicine; [facility] Work Phone: Comment on above: PATIENT NOT FASTINGP ERFORMED BY: CB [facility] Fzldts9784 [address]blin [place] [id number] GFR/1.73 sq M.predicted among non-blacks MDRD (S/P/Bld) [Vol rate/Area] 83 mL/min/{1.73_m2} Normal Comprehensiv e [facility]; [facility] Work Phone: Comment on above: PATIENT NOT FASTINGP ERFORMED BY: RAJ [facility] Nvdblg7495 [address]Duin [place] [id number] Globulin (S) [Mass/Vol] 2.4 g/dL Normal 1.5-4.5 [facility]; [facility] Work Phone: Comment on above: PATIENT NOT FASTINGP ERFORMED BY: CB [facility] Pfufls0746 [address] [place] [id number] Glucose [Mass/Vol] 93 mg/dL Normal 70-99 [facility]; [facility] Work Phone: Comment on above: PATIENT NOT FASTINGP ERFORMED BY: CB [facility] Clgwwj4472 [address]Dublin [place] [id number] Potassium [Moles/Vol] 4.6 mmol/L Normal 3.5-5.2 [facility] prehensive Internal Medicine; [facility] Work Phone: Comment on above: PATIENT NOT FASTINGP ERFORMED BY: RAJ [facility] Jobeny2573 [address]Dublin [place] [id number] Protein [Mass/Vol] 6.6 g/dL Normal 6.0-8.5 [facility]; [facility] Work Phone: Comment on above: PATIENT NOT FASTINGP ERFORMED BY: CB [facility] Ovggce9471 [address]Dublin [place] [id number] Sodium [Moles/Vol] 142 mmol/L Normal 134-144 [facility]; [facility] Work Phone: Comment on above: PATIENT NOT FASTINGP ERFORMED BY: RAJ [facility] Wqhpvt6646 [address]Dublin [place] [id number] Urea nitrogen [Mass/Vol] 16 mg/dL Normal 8-27 [facility]; [facility] Work Phone: Comment on above: PATIENT NOT FASTINGP ERFORMED BY: CB [facility] Yacmpr8337 [address] [place] [id number] Urea nitrogen/Creatinine [Mass ratio] 21 mg/mg Normal 12-28 [facility]; [facility] Work Phone: Comment on above: PATIENT NOT FASTINGP ERFORMED BY: CB [facility] Tpzhkv4877 [address] [place] [id number] PT (Prothrobim Time) (81628) Ordered By: T Rail Turner on 02-10-2022 INR Coag (PPP) [Relative time] 1.0 {INR} Normal 0.9-1.2 [facility]; [facility] Work Phone: Comment on above: Reference interval i s for non-anticoagulated patients. . Suggested INR therapeutic range for Vitamin K antagonist therapy: Standard Dose (moderate intensity therapeutic range): 2.0 - 3.0 Higher intensity therapeutic range 2.5 - 3.5 PATIENT NOT FASTINGP ERFORMED BY: CB [facility] Qxpefs4264 [address]Dublin [place] [id number] PT Coag (PPP) [Time] 10.2 s Normal 9.1-12.0 Comp rehensive [facility] Medicine; [facility] Work Phone: Comment on above: PATIENT NOT FASTINGP ERFORMED BY: [facility]6[address] [facility] [id number] PTT (Activated Partial Throm boplastin Time) (65533)Ordered By: T Rail Turner on 02-10-2022 aPTT Coag (PPP) [Time] 29 s Normal 24-33 [facility]; [facility] Work Phone: Comment on above: This test has not be en validated for monitoring unfractionated heparintherapy. aPTT-based therapeutic ranges for unfractionated heparintherapy have not been established. For general guidelines onHeparin monitoring, refer to the [facility] Directory of Services. PATIENT NOT FASTINGP ERFORMED BY: [facility]6[address] [facility] [id number] Venous Duplex US, Unilateral on 01-14-2022 Venous Duplex US, Unilateral [facility] [address] [place] [address] Venous Duplex US, Unilateral 01/14/22 0811 MR#: [id number] Acct: [id number] Name: MARINA MORAES Rep #: [id number] : 1945 76 From: Juarez Gutierres MD Attending Dr: Dr. Dot Allen, Status: R EG CLI Ordering Dr: Dot Allen DO Date: 01/14/22 Location: [facility] Sex: F C Admitted: Reason For Study: pain RIGHT LEFT GSV is normal. CFV is compressible, spontaneous, phasic, CFV is compressible, spontaneous, phasic, competent, and demonstrates normal competent and demonstrates normal augmentation. augmentation. FV is compressible, spontaneous, phasic, competent and demonstrates normal augmentation. POP V is compressible, spontaneous, phasic, competent and demonstrates normal augmentation. T/P Trunk is compressible. PTV is compressible. RT PerV is compressible. Procedure This is a venous duplex using B-mode, color flow and spectral Doppler. Exam performed in department. The exam was diagnostic. A preliminary report was called and/or faxed to Dr. Allen. VL/Venous Duplex US, Unilateral Interpretation Summary Deep veins of the right lower extremity are patent and compressible segmentally. There is no evidence of right lower extremity deep vein thrombosis. Valvular competence appears intact within the proximal deep venous system on the right . The right great saphenous vein appears patent and compressible segmentally. ___ Ordering Physician: Dot Allen Performed By: Jerry Jones RVT 01/14/221623 Date Juarez Gutierres MD CC: Dr. Dot Allen DO Date Dictated: 01/14/22810 Date Transcribed: 01/14/221623 Spark Plug Tester: Signed [facility] 12-23-2021 [facility] Telephone ([facility]) ----- MARINA MORAES ([id number]) 1945 F Date Time Provider Department 12/23/21 [facility] During your visit today, we recorded the following information about you: Shanta Allen 12/23/2021 2:07 PM Signed 2nd call Left to schedule OV in [place]. Also need confirmation on venous doppler testing that was ordered by Internal Medicine/Dot Allen DO Referral from Dot Allen DO #[phone] - Tender and raised on legs (venous doppler scheduled for ??) Allergies As of Date: 12/23/2021 Noted Allergy Reaction CONTRAST DYE (IODINE) 01/13/2019 2 - Rash SULFA (SULFONAMIDE ANTIBIOTICS) 09/17/2005 2 - Rash Date Reviewed: 12/04/2021 Reviewed by: Sandra Hogue APRN.SPEECH TEACHER - Fully Assessed Reason for Visit: Appointment [186] Cmt: Appointment Prescriptions as of 12/23/2021 - palbociclib (IBRANCE) 125 mg tablet Take 1 tablet (125mg) by mouth once daily for 3 weeks on, followed by 1 week off. Take with or without food - cyanocobalamin, vitamin B-12, 5,000 mcg cap Take by mouth once daily. - melatonin 3 mg tablet Take two tablets by mouth at bedtime as needed. - elderberry fruit (ELDERBERRY ORAL) Take by mouth. Daily gummy - naproxen sodium (ANAPROX) 220 mg tablet Take 440 mg by mouth as needed. - calcium carb/vitamin D3/vit K1 (SOFT CHEWS CALCIUM ORAL) Take 2 Units by mouth once daily. 2 chewables daily - senna (SENOKOT) 8.6 mg tab Take 2 tablets by mouth once daily as needed. - MULTIVITAMIN ORAL Take 1 tablet by mouth once daily. - VENLAFAXINE XR 37.5 mg 24 hr capsule Take 37.5 mg by mouth once daily. - carvedilol (COREG) 12.5 mg tablet Take one(1) tablet two(2) times daily. - PRILOSEC 20 MG CAP Take by mouth once daily. Problem List As Of Date 12/23/2021 Noted Resolved abnormal mammogram [R92.8] 09/17/2005 Malignant neoplasm of upper-outer quadrant of f*03/09/2007 PAIN IN JOINT, LOWER LEG [M25.569] 06/06/2008 Sebaceous cyst [L72.3] 06/17/2010 Personal history of breast cancer [Z85.3] 07/04/2011 Malignant neoplasm of upper-outer quadrant of r*01/13/2019 Pleural effusion, malignant [J91.0] 01/13/2019 Bone metastases (HCC) [C79.51] 02/15/2019 Tachycardia [R00.0] 05/30/2019 LAURA (obstructive sleep apnea) [G47.33] 05/30/2019 GERD (gastroesophageal reflux disease) [K21.9] 05/30/2019 Anxiety and depression [F41.9, F32.A] 05/30/2019 Class 2 severe obesity due to excess calories w*05/30/2019 Pleural effusion [J90] 05/31/2019 Acute post-operative pain [G89.18] 06/01/2019 Low grade fever [R50.9] 06/02/2019 Discharge planning issues [Z02.9] 06/02/2019 Anemia [D64.9] 10/31/2020 Lymphedema of right upper extremity [I89.0] 10/31/2020 Arm swelling [M79.89] 11/02/2020 Liver metastasis (HCC) [C78.7] 12/26/2020 Encounter Status:Closed by SHANTA ALLEN on 12/23/21 [facility] BONE WHOLE BODYon [facility] No Panel Informationon 12-23 [facility] C[facility] Telephone ([facility]) ----- MARINA MORAES ([id number]) 1945 F Date Time Provider Department 12/18/21 [facility] During your visit today, we recorded the following information about you: Shanta Allen 12/18/2021 2:50 PM Signed Left to schedule OV in [place]. Also need confirmation on venous doppler testing that was ordered by Internal Medicine/Dot Allen, Referral from Dot Allen DO #[phone] - Tender and raised on legs (venous doppler scheduled for ??) Allergies As of Date: 12/18/2021 Noted Allergy Reaction CONTRAST DYE (IODINE) 01/13/2019 2 - Rash SULFA (SULFONAMIDE ANTIBIOTICS) 09/17/2005 2 - Rash Date Reviewed: 12/04/2021 Reviewed by: Sandra Hogue APRN.SPEECH TEACHER - Fully Assessed Reason for Visit: Appointment [186] Cmt: Appointment Prescriptions as of 12/18/2021 - palbociclib (IBRANCE) 125 mg tablet Take 1 tablet (125mg) by mouth once daily for 3 weeks on, followed by 1 week off. Take with or without food - cyanocobalamin, vitamin B-12, 5,000 mcg cap Take by mouth once daily. - melatonin 3 mg tablet Take two tablets by mouth at bedtime as needed. - elderberry fruit (ELDERBERRY ORAL) Take by mouth. Daily gummy - naproxen sodium (ANAPROX) 220 mg tablet Take 440 mg by mouth as needed. - calcium carb/vitamin D3/vit K1 (SOFT CHEWS CALCIUM ORAL) Take 2 Units by mouth once daily. 2 chewables daily - senna (SENOKOT) 8.6 mg tab Take 2 tablets by mouth once daily as needed. - MULTIVITAMIN ORAL Take 1 tablet by mouth once daily. - VENLAFAXINE XR 37.5 mg 24 hr capsule Take 37.5 mg by mouth once daily. - carvedilol (COREG) 12.5 mg tablet Take one(1) tablet two(2) times daily. - PRILOSEC 20 MG CAP Take by mouth once daily. Problem List As Of Date 12/18/2021 Noted Resolved abnormal mammogram [R92.8] 09/17/2005 Malignant neoplasm of upper-outer quadrant of f*03/09/2007 PAIN IN JOINT, LOWER LEG [M25.569] 06/06/2008 Sebaceous cyst [L72.3] 06/17/2010 Personal history of breast cancer [Z85.3] 07/04/2011 Malignant neoplasm of upper-outer quadrant of r*01/13/2019 Pleural effusion, malignant [J91.0] 01/13/2019 Bone metastases (HCC) [C79.51] 02/15/2019 Tachycardia [R00.0] 05/30/2019 LAURA (obstructive sleep apnea) [G47.33] 05/30/2019 GERD (gastroesophageal reflux disease) [K21.9] 05/30/2019 Anxiety and depression [F41.9, F32.A] 05/30/2019 Class 2 severe obesity due to excess calories w*05/30/2019 Pleural effusion [J90] 05/31/2019 Acute post-operative pain [G89.18] 06/01/2019 Low grade fever [R50.9] 06/02/2019 Discharge planning issues [Z02.9] 06/02/2019 Anemia [D64.9] 10/31/2020 Lymphedema of right upper extremity [I89.0] 10/31/2020 Arm swelling [M79.89] 11/02/2020 Liver metastasis (HCC) [C78.7] 12/26/2020 Encounter Status:Closed by SHANTA ALLEN on 12/18/21 Normal [facility] Carotid Duplex Ultrasoundon 11-06-2021 Carotid Duplex Ultrasound [facility] [address] [place] [address] Carotid Duplex Ultrasound 11/06/21911 MR#: [id number] Acct: [id number] Name: MARINA MORAES Rep #: [id number] : 1945 76 From: Apollo Valero MD Attending Dr: Dr. Dipesh Lang MD Status: RE G CLI Ordering Dr: Dipesh Lang MD Date: 11/06/21 [facility] Sex: F C Admitted: Reason For Study: Bruit Rt. Velocities/BP Lt. Velocities/BP Prox CCA 122.9/22.5 cm/sec. Prox CCA 139/33.6 cm/sec. Mid CCA 132.1/26.1 cm/sec. Mid CCA 132.3/35.8 cm/sec. Dist CCA 88.2/24.3 cm/sec. Dist CCA 121.4/29.2 cm/sec. Prox ICA 88.8/21.2 cm/sec. Prox ICA 106.5/31.6 cm/sec. Mid ICA 82.6/23.7 cm/sec. Mid ICA 133.9/37.1 cm/sec. Dist ICA 82.6/23.7 cm/sec. Dist ICA 117.4/31.6 cm/sec. Rt. ICA/CCA = 0.72. Lt. ICA/CCA = 1.01. Prox ECA 115.6/18.8 cm/sec. Prox ECA 112/20.6 cm/sec. Rt. Vert. 54.4/16.3 cm/sec. Lt. Vert. 58.6/17.9 cm/sec. Right Extracranial There is intimal thickening but no significant atherosclerotic plaque noted in the right common carotid artery. There is intimal thickening but no significant atherosclerotic plaque noted in the right internal carotid artery. There is intimal thickening but no significant atherosclerotic plaque noted in the right external carotid artery. Antegrade flow is noted in the right vertebral artery. Left Extracranial There is intimal thickening but no significant atherosclerotic plaque noted in the left common carotid artery. There is intimal thickening but no significant atherosclerotic plaque noted in the left internal carotid artery. The left internal carotid artery is very tortuous. There is intimal thickening but no significant atherosclerotic plaque noted in the left external carotid artery. Antegrade flow is noted in the left vertebral artery. Procedure Carotid Duplex 64029. This is a Carotid Duplex examination using B-mode, color flow and specral Doppler. Exam performed in department. VL/Carotid Duplex Ultrasound Interpretation Summary Intimal thickening of the right carotid bulb and proximal internal carotid artery with less than 50% stenosis of the internal carotid artery Less than 50% stenosis right external carotid artery Intimal thickening at the left carotid bulb and proximal internal carotid artery with 50 to 69% stenosis of the left mid internal carotid artery although no significant plaque identified at that location. Less than 50% stenosis left external carotid artery Patent antegrade vertebrals bilaterally _ Ordering Physician: Dipesh Lang Referring Physician: Dot Allen M.D. Performed By: Lili Hernandez RVT 11/06/21 1123 Date Apollo Valero MD CC: Dr. Dot Allen DO; Dr. Dipesh Lang MD Date Dictated: 11/06/21911 Date Transcribed: 11/06/21 1123 Spark Plug Tester: Signed Normal [facility] Cardiology Visit Reporton Cardiology Visit Report [facility] [address] [place] [address] OFFICE VISIT Date of Service: 09/30/21 MR#: [id number] Acct: [id number] Name: MARINA MORAES Rep #: [id number] : 1945 Provider: Dr. Dipesh medrano MD Age/Sex: 76/F [place] [facility] [place] Signed HPI HPI History of Present Illness Details: This is a 76-year-old white female who presents today for outpatient follow-up of her history of PSVT, PACs, PVCs, superimposed upon a history of hyperlipidemia and hypertension. Overall since her last visit of approximately 1 year ago she states she is doing well from a cardiac standpoint. The patient denies symptoms considered classic for angina pectoris, CHF / pulmonary edema (with respect to orthopnea / PND), ongoing palpitations, or near syncope / syncope. The patient denies ongoing peripheral pitting edema. States based upon her oncology care she is been anemic . She states both her white blood count and red blood count have been low. Secondary to this she sometimes feels tired and fatigued. Intake Vital Signs 09/26/20 13:11 09/30/21 13:07 09/30/21 13:10 Height 4 ft 11 in 4 ft 11 in 4 ft 11 in Weight: 205 lb BMI 41.4 41.4 41.3 BP 140/74 H Blood Pressure Location Lt brachial Position Sitting Respiration 16 Pulse 64 Pulse Source Auscultation Intake Visit Reasons: 1 y fu Intern Brand Required: No Accompanied by: Self Allergies Iodinated Contrast Media [Iodinated Contrast- Oral and IV Dye] Allergy (Intermediate, Verified 09/30/21 13:11) Rash Sulfa (Sulfonamide Antibiotics) Allergy (Verified 09/30/21 13:11) Rash Medications multivitamin 1 ea PO DAILY SUPPLEMENT 09/12/15 [History Confirmed 09/30/21] omeprazole 20 mg capsule,delayed release 20 mg PO DAILY GERD 09/12/15 [History Confirmed 09/30/21] venlafaxine 37.5 mg capsule,extended release 24 hr 37.5 mg PO DAILY ANXIETY 09/12/15 [History Confirmed 09/30/21] fulvestrant 250 mg/5 mL intramuscular syringe (Faslodex) 500 mg IM QMONTH 08/08/19 [History Confirmed 09/30/21] carvedilol 12.5 mg tablet See Rx Instructions .Route .COMPLEX #180 tabs 09/05/20 [Rx Confirmed 09/30/21] calcium carbonate 500 mg-vitamin D3 10 mcg (400 unit) chewable tablet 2 tab PO DAILY SUPPLEMENT 09/26/20 [History Confirmed 09/30/21] loratadine 10 mg tablet (Claritin) 10 mg PO DAILY PRN 09/26/20 [History Confirmed 09/30/21] Lactobacillus rhamnosus GG 5 billion cell chewable tablet (Xunleis Probiotics) 1 tab PO BID PRN 09/30/21 [History Confirmed 09/30/21] cyanocobalamin (vitamin B-12) 5,000 mcg disintegrating tablet 5,000 mcg PO DAILY 09/30/21 [History Confirmed 09/30/21] elderberry fruit 460 mg-elderberry flower 115 mg capsule 1 cap PO DAILY 09/30/21 [History Confirmed 09/30/21] melatonin 3 mg tablet 6 mg PO HS PRN 09/30/21 [History Confirmed 09/30/21] palbociclib 125 mg tablet (Ibrance) 125 mg PO .COMPLEX 09/30/21 [History] [facility] Medical History (Updated 09/30/21 @ 13:[address] Dipesh Lang MD) Atrial paroxysmal tachycardia Breast cancer Essential (primary) hypertension GERD (gastroesophageal reflux disease) Hiatal hernia Hyperlipidemia Palpitations Pleural effusion Premature atrial contractions Premature ventricular contraction Sinus bradycardia SVT (supraventricular tachycardia) Surgical History History of breast biopsy History of breast reconstruction History of hernia repair ( 07/2016) History of left knee replacement History of lung surgery History of partial mastectomy of right breast History of total hysterectomy History of total right knee replacement Status post wrist surgery Family History Mother CAD (coronary artery disease) Social History Smoking Status: Former smoker alcohol intake: current details: occasional substance use type: does not use ROS Const Const: Positive for fatigue; Negative for weakness, body ache, fever(s), headache(s), chills, frequent falls, night sweats, daytime sleepiness, difficulty sleeping, excessive sweating, weight gain, weight loss, increased appetite, poor appetite, anorexia or other Eyes Eyes: Negative for blurry vision or double vision ENT ENT: Positive for dizziness (occasional;random); Negative for headache(s) or balance problems Cardio Chest Pain: No Palpitations: No Edema: Right (UE HX lymphademia) Muscle aches with walking: None Resp Respiratory: Positive for SOB with activity (baseline); Negative for SOB at rest, SOB orthopnea SOB lying down, Cough, Coughing up blood/hemoptysis, chest congestion, pain on inspiration, snoring, stridor, wheezing, crackles, paroxysmal nocturnal dyspnea or other (more content not included)... [facility] FERRITIN BLDon 09-10-2021 Ferritin [Mass/Vol] 101.0 ng/mL 14.7 - 205.1 ng/mL [facility] FOLATE SERUMon 09-10-2021 Folate [Mass/Vol] ng/mL >4.7 ng/mL [facility] Iron and Iron binding capaci ty panelon 09-10-2021 Iron [Mass/Vol] 59 ug/dL 41 - 186 ug/dL [facility] Iron binding capacity [Mass/Vol] 247 ug/dL 232 - 386 ug/dL [facility] Iron/TIBC [Molar ratio] 23.9 % 15.0 - 57.0 % [facility] RETIC COUNTon 09-10-2021 Reticulocytes (Bld) [#/Vol] 0.95819 10*3/uL High 0.018 - 0.100 M/uL [facility] Reticulocytes (Bld) [#/Vol]o n 09-10-2021 Reticulocytes/100 RBC (Bld) 3.9 % High 0.4 - 2.0 % [facility] VITAMIN B12 BLOODon 09-11-19 Cobalamin (Vitamin B12) [Mass/Vol] 541 pg/mL 232-1,245 pg/mL [facility] CBC and Differentialon 02-03 Abs Baso 0.04 k/uL Normal <0.11 [facility] Comment on above: Performed By: #### C BCDIF, CMP #### [facility] [address] [place] [address] Abs [place] 0.31 k/uL Normal <0.87 [facility] Comment on above: Performed By: #### C BCDIF, CMP #### [facility] [address] [place] [address] Abs Neut 6.15 k/uL Normal 1.45-7.50 [facility] Comment on above: Performed By: #### C BCDIF, CMP #### [facility] [address] [place] [address] Basophils/100 WBC (Bld) 0.5 % Normal [facility] Comment on above: Performed By: #### C BCDIF, CMP #### [facility] [address] [place] [address] Eosinophils (Bld) [#/Vol] 0.29 10*3/uL Normal <0.46 [facility] Comment on above: Performed By: #### C BCDIF, CMP #### [facility] [address] [place] [address] Eosinophils/100 WBC (Bld) 3.6 % Normal [facility] Comment on above: Performed By: #### C BCDIF, CMP #### [address] [phone] Erythrocyte distribution width (RBC) [Ratio] 13.0 % Normal 11.5-15.0 [facility] Comment on above: Performed By: #### C BCDIF, CMP #### [address] [phone] Hematocrit (Bld) [Volume fraction] 41.7 % Normal 36.0-46.0 [facility] Comment on above: Performed By: #### C BCDIF, CMP #### [address] [phone] Hemoglobin (Bld) [Mass/Vol] 13.3 g/dL Normal 11.5-15.5 [facility] Comment on above: Performed By: #### C BCDIF, CMP #### [address] [phone] Lymphocytes (Bld) [#/Vol] 1.22 10*3/uL Normal 1.00-4.00 [facility] Comment on above: Performed By: #### C BCDIF, CMP #### [address] [phone] Lymphocytes/100 WBC (Bld) 15.2 % Normal [facility] Comment on above: Performed By: #### C BCDIF, CMP #### [address] [phone] MCH (RBC) [Entitic mass] 30.1 pG Normal 26.0-34.0 [facility] Comment on above: Performed By: #### C BCDIF, CMP #### [address] [phone] MCHC (RBC) [Mass/Vol] 31.9 g/dL Normal 30.5-36.0 [facility] Comment on above: Performed By: #### C BCDIF, CMP #### [address] [phone] MCV (RBC) [Entitic vol] 94.3 fL Normal 80.0-100.0 [facility] Comment on above: Performed By: #### C BCDIF, CMP #### [address] [phone] Monocytes/100 WBC (Bld) 3.9 % Normal [facility] Comment on above: Performed By: #### C BCDIF, CMP #### [address] [phone] Neutrophils/100 WBC (Bld) 76.8 % Normal [facility] Comment on above: Performed By: #### C BCDIF, CMP #### [address] [phone] Platelet mean volume (Bld) [Entitic vol] 10.0 fL Normal 9.0-12.7 [facility] Comment on above: Performed By: #### C BCDIF, CMP #### [place] [phone] Platelets (Bld) [#/Vol] 327 10*3/uL Normal 150-400 [facility] Comment on above: Performed By: #### C BCDIF, CMP #### [address] [phone] RBC (Bld) [#/Vol] 4.42 10*6/uL Normal 3.90-5.20 [facility] Comment on above: Performed By: #### C BCDIF, CMP #### [address] [phone] WBC (Bld) [#/Vol] 8.01 10*3/uL Normal 3.70-11.00 [facility] Comment on above: Performed By: #### C BCDIF, CMP #### [address] [phone] Comp Metabolic Panelon 02-03 Albumin [Mass/Vol] 4.1 g/dL Normal 3.9-4.9 [facility] Comment on above: Performed By: #### C BCDIF, CMP #### [address] [phone] ALP [Catalytic activity/Vol] 111 U/L Normal 34-123 [facility] Comment on above: Performed By: #### C BCDIF, CMP #### [address] [phone] ALT [Catalytic activity/Vol] 14 U/L Normal 7-38 [facility] Comment on above: Performed By: #### C BCDIF, CMP #### [facility] [address] [facility] [phone] Anion gap [Moles/Vol] 11 mmol/L Normal 9-18 [facility] Comment on above: Performed By: #### C BCDIF, CMP #### [facility] [address] [place] [address] AST [Catalytic activity/Vol] 19 U/L Normal 13-35 [facility] Comment on above: Performed By: #### C BCDIF, CMP #### [facility] [address] [place] [address] Bilirubin [Mass/Vol] 0.4 mg/dL Normal 0.2-1.3 [facility] Comment on above: Performed By: #### C BCDIF, CMP #### [address] [phone] Calcium [Mass/Vol] 9.5 mg/dL Normal 8.8-10.2 [facility] Comment on above: Performed By: #### C BCDIF, CMP #### [facility] [address] [place] [address] Chloride [Moles/Vol] 100 mmol/L Normal 97-105 [facility] Comment on above: Performed By: #### C BCDIF, CMP #### [facility] [address] [place] [address] CO2 [Moles/Vol] 30 mmol/L Normal 22-30 [facility] Comment on above: Performed By: #### C BCDIF, CMP #### [facility] [address] [place] [address] Creatinine [Mass/Vol] 0.80 mg/dL Normal 0.58-0.96 [facility] Comment on above: Performed By: #### C BCDIF, CMP #### [address] [phone] eGFR- Amer. >60 Normal [facility] Comment on above: Performed By: #### C BCDIF, CMP #### [address] [phone] GFR/1.73 sq M predicted among non-blacks MDRD (S/P/Bld) [Vol rate/Area] mL/min/{1.73_m2} Normal [facility] Comment on above: Performed By: #### C BCDIF, CMP #### [address] [phone] Glucose [Mass/Vol] 106 mg/dL High 74-99 [facility] Comment on above: Performed By: #### C BCDIF, CMP #### [address] [phone] Potassium [Moles/Vol] 4.2 mmol/L Normal 3.7-5.1 [facility] Comment on above: Performed By: #### C BCDIF, CMP #### [address] [phone] Protein [Mass/Vol] 6.9 g/dL Normal 6.3-8.0 [facility] Comment on above: Performed By: #### C BCDIF, CMP #### [address] [phone] Sodium [Moles/Vol] 141 mmol/L Normal 136-144 [facility] Comment on above: Performed By: #### C BCDIF, CMP #### [address] [phone] Urea nitrogen [Mass/Vol] 11 mg/dL Normal 8-21 [facility] Comment on above: Performed By: #### C BCDIF, CMP #### [address] [phone] XR Chest 2 Viewson 9 XR Chest 2 Views Exam Date/Time: 10/21/2018 15:20 EDT Reason for Exam: Cough Report STUDY: XR Chest 2 Views; 10/21/2018 3:20 pm INDICATION: Cough. COMPARISON: None. ACCESSION NUMBER(S): [id number] ORDERING CLINICIAN: Woo Abdi FINDINGS: PA and lateral views of the chest were obtained. A small to moderate-sized right-sided pleural effusion is present. Adjacent airspace consolidation may represent atelectasis and/or pneumonia. No pneumothorax is identified. The cardiac silhouette is prominent. Mild discogenic degenerative changes are seen throughout the thoracic spine. IMPRESSION: Right-sided pleural effusion and basilar airspace consolidation, as described above. Clinical correlation and continued follow-up until clearing is recommended. FINAL REPORT Dictated: 10/21/2018 3:50 pm Gautam Puri MD Signed (Electronic Signature): 10/21/2018 3:50 pm Signed by: Gautam Puri MD Technologist: [facility] Normal [facility] Basic Metabolic Profile (BMP )on 07-01-2018 Basic metabolic 2000 panel 27.2 {RATIO} Abnormal 10-20 [facility] Work Phone: Comment on above: [facility] [address] [place], [place], [id number] Basic metabolic 2000 panel 130 mL/min Normal [facility] Work Phone: Comment on above: GFR Calc [facility] [address] [place], [place], [id number] Basic metabolic 2000 panel 7 1 Normal 5-15 [facility] Work Phone: Comment on above: [facility] [address] [place], [place], [address] Basic metabolic 2000 panel 4.1 mmol/L Normal 3.5-5.1 [facility] Work Phone: Comment on above: [facility] [address] [place], [place], [id number] Basic metabolic 2000 panel 142 mmol/L Normal 136-145 [facility] Work Phone: Comment on above: [facility] [address] [place], [place], [id number] Basic metabolic 2000 panel 107 mL/min Normal [facility] Work Phone: Comment on above: Non- GFR Calc [facility] [address] [place], [address] Basic metabolic 2000 panel 0.59 mg/dL Normal 0.55-1.02 [facility] Work Phone: Comment on above: The validity of the calculated GFR AND GFRAA in patients over70 years has not been determined. Clinical correlation isessential. [facility] [address] [place], [place], [address] Basic metabolic 2000 panel 9.2 mg/dL Normal 8.5-10.1 [facility] Work Phone: Comment on above: [facility] [address] [place], [place], [address] Basic metabolic 2000 panel 16 mg/dL Normal 7-18 [facility] Work Phone: Comment on above: [place] [address] [place], [place], [address] Basic metabolic 2000 panel 107 mmol/L Normal 98-107 [facility] Work Phone: Comment on above: [facility] [address] [place], [place], [address] Basic metabolic 2000 panel 28.0 mmol/L Normal 21.0-32.0 [facility] Work Phone: Comment on above: [place] [address] [place], [place], [address] Basic metabolic 2000 panel 91 mg/dL Normal 74-106 [facility] Work Phone: Comment on above: Please note revised GLUCOSE reference range wclvwqqty52/02/2018. [facility] [address] [place], [place], [id number] MRSA/SAID SCREENon 8 MRSA+SAID SCRN See Note Normal Comprehens jazmín [facility] Work Phone: Comment on above: MRSA/SAID SCRNS. AUR EUS S. aureus NegativeMRSA MRSA Negative [facility] [address] [place], [address] CBC W/AUTO DIFF WBC (64756)o n 09-04-2017 Basophils #/vol (Bld) 0.0 {x10E3/uL} Normal 0.0-0.2 [facility] Work Phone: Comment on above: PATIENT WAS FASTINGP ERFORMED BY: [address] [id number] BY: [facility] Dpfgks5865 Teran RoadDublin [place] [id number] Basophils/100 WBC (Bld) 0 % Normal [facility] Work Phone: Comment on above: PATIENT WAS FASTINGP ERFORMED BY: LabVycon[address] [id number] BY: [facility] Axqkff5[address] Teran RoadUNC Health Johnston [facility] [id number] Eosinophils #/vol (Bld) 0.2 {x10E3/uL} Normal 0.0-0.4 [facility] Work Phone: Comment on above: PATIENT WAS FASTINGP ERFORMED BY: LabVycon[address] [id number] BY: LabCoBayshore Community HospitalCpjfhp3001 Teran RoadUNC Health Johnston [facility] [id number] Eosinophils/100 WBC (Bld) 3 % Normal [facility] Work Phone: Comment on above: PATIENT WAS FASTINGP ERFORMED BY: [address]Vycon[address] [id number] BY: [facility] Eqsxjw[address] [facility] [id number] Erythrocyte distribution width Ratio (RBC) 13.6 % Normal 12.3-15.4 [facility] Work Phone: Comment on above: PATIENT WAS FASTINGP ERFORMED BY: [address] [id number] BY: [facility] Azhupt2682 [facility] [id number] Hematocrit Volume Fraction (Bld) 38.3 % Normal 34.0-46.6 [facility] Work Phone: Comment on above: PATIENT WAS FASTINGP ERFORMED BY: [address] [id number] BY: [facility]CoBayshore Community HospitalAcqwlk5685 TeranDeaconess Incarnate Word Health [facility] [id number] Hemoglobin mass conc (Bld) 12.5 g/dL Normal 11.1-15.9 [facility] Work Phone: Comment on above: PATIENT WAS FASTINGP ERFORMED BY: [address] [id number] BY: LabCoJoseph [place] [id number] [facility] [id number] Immature granulocytes #/vol (Bld) 0.0 {x10E3/uL} Normal 0.0-0.1 [facility] Work Phone: Comment on above: PATIENT WAS FASTINGP ERFORMED BY: [address] [id number] BY: [facility]CoBays[facility]ore Community HospitalTzkwqo9050 [facility] [id number] Immature granulocytes/100 WBC (Bld) 0 % Normal [facility] Work Phone: Comment on above: PATIENT WAS FASTINGP ERFORMED BY: [address] [id number] BY: LabCheryl [place] [id number] [facility] [id number] Lymphocytes #/vol (Bld) 1.5 {x10E3/uL} Normal 0.7-3.1 [facility] Work Phone: Comment on above: PATIENT WAS FASTINGP ERFORMED BY: [address] [id number] BY: [facility] Rssmcf[address] [facility] [id number] Lymphocytes/100 WBC (Bld) 22 % Normal [facility] Work Phone: Comment on above: PATIENT WAS FASTINGP ERFORMED BY: [address] [id number] BY: [facility]CoBays[facility] Community HospitalNjuczt4088 [facility] [id number] MCH Entitic mass (RBC) 29.5 pg Normal 26.6-33.0 [facility] Work Phone: Comment on above: PATIENT WAS FASTINGP ERFORMED BY: [address] [id number] BY: [facility]CoBayshore Community HospitalHtimrg5685 [facility] [id number] MCHC mass conc (RBC) 32.6 g/dL Normal 31.5-35.7 Comp [facility] Work Phone: Comment on above: PATIENT WAS FASTINGP ERFORMED BY: [address] [id number] BY: LabCheryl [place] [id number] [facility] [id number] MCV Entitic volume (RBC) 90 fL Normal 79-97 [facility] Work Phone: Comment on above: PATIENT WAS FASTINGP ERFORMED BY: [address] [id number] BY: LabBeaumont Hospital6370 [facility] [id number] Monocytes #/vol (Bld) 0.5 {x10E3/uL} Normal 0.1-0.9 [facility] Work Phone: Comment on above: PATIENT WAS FASTINGP ERFORMED BY: [address] [id number] BY: LabC[place] [id number] [facility] [id number] Monocytes/100 WBC (Bld) 7 % Normal [facility] Work Phone: Comment on above: PATIENT WAS FASTINGP ERFORMED BY: BN [address] [id number] BY: LabCoMiners' Colfax Medical CenterVodnqq5207 Teran RoadDublin [place] [id number] Neutrophils #/vol (Bld) 4.7 {x10E3/uL} Normal 1.4-7.0 [facility] Work Phone: Comment on above: PATIENT WAS FASTINGP ERFORMED BY: [address] [id number] BY: LabCoJoseph [place] 7895670 Teran RoadUnc Health Lenoirin [place] [id number] Neutrophils/100 WBC (Bld) 68 % Normal [facility] Work Phone: Comment on above: PATIENT WAS FASTINGP ERFORMED BY: [address] [id number] BY: LabCoJoseph [place] [id number] Teran RoadUNC Health Johnston [facility] [id number] Platelets #/vol (Bld) 331 {x10E3/uL} Normal 150-379 [facility] Work Phone: Comment on above: PATIENT WAS FASTINGP ERFORMED BY: [address] [id number] BY: LabBeaumont Hospital6370 [address] [facility] [id number] RBC #/vol (Bld) 4.24 {x10E6/uL} Normal 3.77-5.28 [facility] Work Phone: Comment on above: PATIENT WAS FASTINGP ERFORMED BY: [address] [id number] BY: LabCoBayshore Community HospitalLfyiog4839 [address] [facility] Hospitalin [place] [id number] WBC #/vol (Bld) 7.0 {x10E3/uL} Normal 3.4-10.8 [facility] Internal [facility] Work Phone: Comment on above: PATIENT WAS FASTINGP ERFORMED BY: [address] [id number] BY: [facility]6[address] [facility] [id number] CBC W/AUTO DIFF WBC (01828)O rdered By: T Rail Turner on 09-04-2017 Basophils (Bld) [#/Vol] 0.0 10*3/uL Normal 0.0-0.2 [facility]; [facility] Work Phone: Comment on above: PATIENT WAS FASTINGP ERFORMED BY: [address] [id number] BY: [place] [id number] [facility] [id number] Eosinophils (Bld) [#/Vol] 0.2 10*3/uL Normal 0.0-0.4 [facility]; [facility] Work Phone: Comment on above: PATIENT WAS FASTINGP ERFORMED BY: [address] [id number] BY: [place] [id number] [facility] [id number] Immature granulocytes (Bld) [#/Vol] 0.0 10*3/uL Normal 0.0-0.1 [facility]; [facility] Work Phone: Comment on above: PATIENT WAS FASTINGP ERFORMED BY: [address] [id number] BY: [place] [id number] [facility] [id number] Lymphocytes (Bld) [#/Vol] 1.5 10*3/uL Normal 0.7-3.1 [facility]; [facility] Work Phone: Comment on above: PATIENT WAS FASTINGP ERFORMED BY: [address] [id number] BY: [place] [id number] [facility] [id number] Monocytes (Bld) [#/Vol] 0.5 10*3/uL Normal 0.1-0.9 [facility]; [facility] Work Phone: Comment on above: PATIENT WAS FASTINGP ERFORMED BY: [facility] [address] [id number] BY: [facility] Njgwto4961 Teran RoadDublin [place] [id number] Neutrophils (Bld) [#/Vol] 4.7 10*3/uL Normal 1.4-7.0 [facility]; [facility] Work Phone: Comment on above: PATIENT WAS FASTINGP ERFORMED BY: [facility] [address] [id number] BY: [facility] Glcmqd8631 Teran RoadDublin [place] [id number] Platelets (Bld) [#/Vol] 331 10*3/uL Normal 150-379 [facility]; [facility] Work Phone: Comment on above: PATIENT WAS FASTINGP ERFORMED BY: [facility] [address] [id number] BY: [facility] Uuablh7820 [address] RoadDublin [place] [id number] RBC (Bld) [#/Vol] 4.24 10*6/uL Normal 3.77-5.28 Compr ensive [facility] Medicine; [facility] Work Phone: Comment on above: PATIENT WAS FASTINGP ERFORMED BY: [facility] [address] [id number] BY: [facility] Rcsngs1449 [address] RoadDublin [place] [id number] WBC (Bld) [#/Vol] 7.0 10*3/uL Normal 3.4-10.8 [facility]pre [facility]; [facility] Work Phone: Comment on above: PATIENT WAS FASTINGP ERFORMED BY: [address] [id number] BY: CB [facility] Pgpeou6330 Teran RoadDublin [place] [id number] LIPOPROTEIN, BLD, BY NMR (83 702)on 09-04-2017 Cholesterol in HDL mass conc 40 mg/dL Normal [facility] Work Phone: Comment on above: PATIENT WAS FASTINGP ERFORMED BY: [employer] [address] [id number] BY: [email or web address] [facility] [id number] Cholesterol in LDL mass conc 114 mg/dL Abnormal 0-99 [facility] Work Phone: Comment on above: . Optimal < 100 Abov e optimal 100 - 129 Borderline 130 - 159 High 160 - 189 Very high > 189 .LDL-C is inaccurate if patient is non-fasting. PATIENT WAS FASTINGP ERFORMED BY: IT MOVES IT[address] [id number] BY: [email or web address] [facility] SystemsUNC [facility] [id number] Cholesterol mass conc 189 mg/dL Normal 100-199 [facility] prehensive Internal Medicine Work Phone: Comment on above: PATIENT WAS FASTINGP ERFORMED BY: IT MOVES IT[address] [id number] BY: [email or web address] [address] [employer] ([email or web address])[facility] [id number] Lipoprotein.alpha molar conc 28.5 umol/L Abnormal [facility] Work Phone: Comment on above: PATIENT WAS FASTINGP ERFORMED BY: IT MOVES [address] [id number] BY: [email or web address] [facility] [id number] Lipoprotein.beta.subp article Entitic length 20.4 nm Normal [facility] Work Phone: Comment on above: INTERPRETATIVE INFORMATION PARTICLE CONCENTRATION AND SIZE <--Lower CVD Risk Higher CVD Risk--> LDL AND HDL PARTICLES Percentile in Reference Population HDL-P (total) High 75th 50th 25th Low >34.9 34.9 30.5 26.7 <26.7 . Small LDL-P Low 25th 50th 75th High <117 117 527 839 >839 . LDL Size <-Large (Pattern A)-> <-Small (Pattern B)-> 23.0 20.6 20.5 19.0 Small LDL-P and LDL Size are associated with CVD risk, but not afterLDL-P is taken into account. .These assays were developed and their performance characteristicsdetermined by [employer]. These assays have not been cleared by [place] Food and Drug Administration. The clinical utility of theselaboratory values have not been fully established. PATIENT WAS FASTINGP ERFORMED BY: IT MOVES ITton1447 [facility] [id number] BY: [email or web address] [facility] SystemsUNC [facility] Johnston [facility] [id number] Lipoprotein.beta.subp article molar conc 1443 nmol/L Abnormal [facility] Work Phone: Comment on above: Low < 1000 Moderate 1000 - 1299 Borderline-High 1300 - 1599 High 1600 - 2000 Very High > 2000 PATIENT WAS FASTINGP ERFORMED BY: IT MOVES ITton1447 [facility] [id number] BY: [email or web address] [facility] [id number] Lipoprotein.beta.subp article.small molar conc 913 nmol/L Abnormal [facility] Work Phone: Comment on above: PATIENT WAS FASTINGP ERFORMED BY: IT MOVES IT[address] [id number] BY: [email or web address] [facility] [id number] Triglyceride mass conc 173 mg/dL Abnormal 0-149 [facility] Work Phone: Comment on above: PATIENT WAS FASTINGP ERFORMED BY: [facility] Zczechyfkd3015 [facility] [id number] BY: RAJ [facility] Xrcojm1256 Teran Roadblin [place] [id number] METABOLIC PANEL, COMPREHENSI VE (06519)on 09-04-2017 Albumin mass conc 4.3 g/dL Normal 3.5-4.8 Compreh bannerive Internal Medicine Work Phone: Comment on above: PATIENT WAS FASTINGP ERFORMED BY: [facility] [address] [id number] BY: [facility] Jbmmay9238 [address] [facility] [id number] Albumin/Globulin mass ratio 1.7 {ratio} Normal 1.2-2.2 [facility] Work Phone: Comment on above: PATIENT WAS FASTINGP ERFORMED BY: [facility] [address] [id number] BY: RAJ [facility] Ziuxro3284 [address] [facility] [id number] ALP enzyme act/vol 101 [iU]/L Normal 39-117 [facility] Work Phone: Comment on above: PATIENT WAS FASTINGP ERFORMED BY: [facility] [id number] BY: [facility] Teksoz6716 [address] [facility]in [place] [id number] ALT enzyme act/vol 18 [iU]/L Normal 0-32 [facility] Work Phone: Comment on above: PATIENT WAS FASTINGP ERFORMED BY: [facility] [address] [id number] BY: CB [facility] Prguze1173 [address] RoadDublin [place] [id number] AST enzyme act/vol 25 [iU]/L Normal 0-40 [facility] Work Phone: Comment on above: PATIENT WAS FASTINGP ERFORMED BY: [facility] [address] [id number] BY: RAJ [facility] Gcsvsy6878 [address] [facility] [id number] Bilirubin mass conc 0.3 mg/dL Normal 0.0-1.2 Compr ehensive Internal Medicine Work Phone: Comment on above: PATIENT WAS FASTINGP ERFORMED BY: BN [facility] Yldxnfvgyu5[address] [id number] BY: RAJ [facility] Etjqsn5423 Ter[address] RoadUnc Health Lenoirin [place] [id number] Calcium mass conc 9.7 mg/dL Normal 8.7-10.3 Compreh ensive Internal Medicine Work Phone: Comment on above: PATIENT WAS FASTINGP ERFORMED BY: [facility] [address] [id number] BY: RAJ [facility] Ryuaen6434 [address] [facility] [id number] Chloride molar conc 101 mmol/L Normal 96-106 Compr ehensive Internal Medicine Work Phone: Comment on above: PATIENT WAS FASTINGP ERFORMED BY: [facility] [address] [id number] BY: RAJ [facility] Aylixl7950 [address] [facility] [id number] CO2 molar conc 25 mmol/L Normal 20-29 Comprehens jazmín Internal Medicine Work Phone: Comment on above: Please note refere nce interval change PATIENT WAS FASTINGP ERFORMED BY: [facility] [id number] BY: [facility] Ggduac5580 [facility] [id number] Creatinine mass conc 0.70 mg/dL Normal 0.57-1.00 Comp rehensive Internal Medicine Work Phone: Comment on above: PATIENT WAS FASTINGP ERFORMED BY: [facility] [address] [id number] BY: [facility] Wjfwho4020 [address] RoadDublin [place] [id number] GFR/1.73 sq M predicted among blacks CKD-EPI vol rate/area (S/P/Bld) 102 mL/min/1.73 Normal Comprehensiv e Internal Medicine Work Phone: Comment on above: PATIENT WAS FASTINGP ERFORMED BY: [facility] [id number] BY: [facility] Behfoi55[address] [facility] [place] [id number] GFR/1.73 sq M predicted among non-blacks CKD-EPI vol rate/area (S/P/Bld) 88 mL/min/1.73 Normal [facility] Work Phone: Comment on above: PATIENT WAS FASTINGP ERFORMED BY: Lab[address] [id number] BY: LabCoBayshore Community HospitalSbitwd5420 [facility] [id number] Globulin mass conc (S) 2.6 g/dL Normal 1.5-4.5 [facility] Work Phone: Comment on above: PATIENT WAS FASTINGP ERFORMED BY: [employer] [id number] BY: [facility] Ftgobx2429 [facility] [id number] Glucose mass conc 90 mg/dL Normal 65-99 Compreh ensive Internal Medicine Work Phone: Comment on above: PATIENT WAS FASTINGP ERFORMED BY: [employer] [id number] BY: [facility] Hotgtc7808 [facility] [id number] Potassium molar conc 5.0 mmol/L Normal 3.5-5.2 Comp rehensive Internal Medicine Work Phone: Comment on above: PATIENT WAS FASTINGP ERFORMED BY: [facility] [id number] BY: RAJ [facility] Stmkli5534 [address] RoadDublin [place] [id number] Protein mass conc 6.9 g/dL Normal 6.0-8.5 Compreh ensive Internal Medicine Work Phone: Comment on above: PATIENT WAS FASTINGP ERFORMED BY: [facility] [address] [id number] BY: CB [facility] Wuvmuh0525 [address] RoadDublin [place] [id number] Sodium molar conc 144 mmol/L Normal 134-144 Compreh ensive Internal Medicine Work Phone: Comment on above: PATIENT WAS FASTINGP ERFORMED BY: [facility] [id number] BY: RAJ [facility] Togwsc6281 [address] RoadDublin [place] [id number] Urea nitrogen mass conc 15 mg/dL Normal 8-27 [facility] Work Phone: Comment on above: PATIENT WAS FASTINGP ERFORMED BY: [facility] [id number] BY: RAJ [facility] Ubgwny1318 [address] RoadDublin [place] [id number] Urea nitrogen/Creatinine mass ratio 21 mg/mg Normal 12-28 [facility] Work Phone: Comment on above: PATIENT WAS FASTINGP ERFORMED BY: [facility] [id number] BY: [facility] Lspzqz6604 [address] RoadDublin [place] [id number] METABOLIC PANEL, COMPREHENSI VE (33456)Ordered By: T Rail Turner on 09-04-2017 ALP [Catalytic activity/Vol] 101 U/L Normal 39-117 [facility]; [facility] Work Phone: Comment on above: PATIENT WAS FASTINGP ERFORMED BY: [facility] [id number] BY: CB [facility] Ovzccu7528 [address] RoadDublin [place] [id number] ALT [Catalytic activity/Vol] 18 U/L Normal 0-32 [facility]; [facility] Work Phone: Comment on above: PATIENT WAS FASTINGP ERFORMED BY: [facility] [id number] BY: RAJ [facility] Prtfje2297 [address] RoadDublin [place] [id number] AST [Catalytic activity/Vol] 25 U/L Normal 0-40 [facility]; [facility] Work Phone: Comment on above: PATIENT WAS FASTINGP ERFORMED BY: [facility] [id number] BY: RAJ [facility] Zyuozq1101 [address] RoadDublin [place] [id number] MICROALBUMINOrdered By: Syst em Ham Doctor on 09-04-2017 Albumin DL <= 20 mg/L (U) [Mass/Vol] mg/dL Normal [facility]; [facility] Work Phone: Comment on above: PATIENT WAS FASTINGP ERFORMED BY: [address] [id number] BY: RAJ [facility] Kgpqmw3059 [address] RoadDublin [place] [id number] MICROALBUMINon 09-04-2017 Albumin DL <= 20 mg/L mass conc (U) mg/dL Normal [facility] Work Phone: Comment on above: PATIENT WAS FASTINGP ERFORMED BY: [facility] [id number] BY: RAJ [facility] Sjcgrx4292 [address] RoadDublin [place] [id number] Albumin/Creatinine mass ratio (U) <5.9 Normal 0.0-30.0 [facility] Work Phone: Comment on above: PATIENT WAS FASTINGP ERFORMED BY: [facility] [id number] BY: RAJ [facility] Bdadsa8155 [address] RoadDublin [place] [id number] Creatinine mass conc (U) 50.9 mg/dL Normal [facility] Work Phone: Comment on above: PATIENT WAS FASTINGP ERFORMED BY: [address] [id number] BY: [facility] Mrhsmp7620 [address] [facility] [id number] Microscopic Examinationon Bacteria LM.HPF #/area (Urine sed) Few Normal [facility] Work Phone: Comment on above: PATIENT WAS FASTINGP ERFORMED BY: [address] [id number] BY: LabCoJoseph Ville [id number] [facility] [id number] Epithelial cells LM.HPF #/area (Urine sed) 0-10 Normal 0 - 10 [facility] Work Phone: Comment on above: PATIENT WAS FASTINGP ERFORMED BY: [address] [id number] BY: [facility] Etruhr7263 [address] [facility] [id number] Mucus Ql (Urine sed) Present Normal Comp rehensive Internal Medicine Work Phone: Comment on above: PATIENT WAS FASTINGP ERFORMED BY: [address] [id number] BY: [facility] Xzwzdv2125 [address] [facility] [id number] RBC LM.HPF #/area (Urine sed) 0-2 Normal 0 - 2 [facility] Work Phone: Comment on above: PATIENT WAS FASTINGP ERFORMED BY: [address] [id number] BY: [facility] Ruvvuu2851 Teran RoadUnc Health Lenoirin [place] [id number] WBC LM.HPF #/area (Urine sed) 0-5 Normal 0 - 5 [facility] Work Phone: Comment on above: PATIENT WAS FASTINGP ERFORMED BY: [facility] [id number] BY: RAJ [facility] Nieadl7763 [address] RoadDublin [place] [id number] TSH (27859)on 09-04-2017 Thyrotropin Qn 1.680 {uIU/mL} Normal 0.450-4.50 0 [facility] Work Phone: Comment on above: PATIENT WAS FASTINGP ERFORMED BY: [facility] [id number] BY: RAJ [facility] Pnszrm2999 [address] RoadDublin [place] [id number] URINALYSIS, W/ MICRO (14941) on 09-04-2017 Appearance Nom (U) Clear Normal Compre hensive Internal Medicine Work Phone: Comment on above: PATIENT WAS FASTINGP ERFORMED BY: [facility] [id number] BY: RAJ [facility] Fopwsc8423 [address] RoadDublin [place] [id number] Bilirubin Ql (U) Negative Normal Comprehe nsive Internal Medicine Work Phone: Comment on above: PATIENT WAS FASTINGP ERFORMED BY: [facility] [id number] BY: RAJ [facility] Orgbac7125 [address] RoadDublin [place] [id number] Color Nom (U) Yellow Normal Comprehensi ve Internal Medicine Work Phone: Comment on above: PATIENT WAS FASTINGP ERFORMED BY: [facility] [id number] BY: RAJ [facility] Upzroh0110 [address] RoadDublin [place] [id number] Glucose Ql (U) Negative Normal Comprehens jazmín Internal Medicine Work Phone: Comment on above: PATIENT WAS FASTINGP ERFORMED BY: [facility] [id number] BY: [facility] Styyte9592 [address] RoadDublin [place] [id number] Hemoglobin Ql (U) Negative Normal Compreh ensive Internal Medicine Work Phone: Comment on above: PATIENT WAS FASTINGP ERFORMED BY: [address] [id number] BY: [facility] Ynbnsl8644 [address] RoadDublin [place] [id number] Ketones Ql (U) Negative Normal Comprehens jazmín Internal Medicine Work Phone: Comment on above: PATIENT WAS FASTINGP ERFORMED BY: [address] [id number] BY: [facility]6370 [address] RoadDublin [place] [id number] Leukocyte esterase Test strip Ql (U) Negative Normal [facility] Work Phone: Comment on above: PATIENT WAS FASTINGP ERFORMED BY: [address] [id number] BY: [facility]6[address] RoadDublin [place] [id number] Microscopic observation LM Nom (Urine sed) MICRON Normal [facility] Work Phone: Comment on above: Microscopic follows if indicated. PATIENT WAS FASTINGP ERFORMED BY: [address] [id number] BY: [facility] Jzupmq8999 [address] RoadDublin [place] [id number] Microscopic observation LM Nom (Urine sed) See below: Normal [facility] Work Phone: Comment on above: Microscopic was venita cated and was performed. PATIENT WAS FASTINGP ERFORMED BY: [address] [id number] BY: [facility]lin6370 [address] RoadDublin [place] [id number] Nitrite Ql (U) Negative Normal Comprehens jazmín Internal Medicine Work Phone: Comment on above: PATIENT WAS FASTINGP ERFORMED BY: [address] [id number] BY: [facility] Hyvcjk2308 [facility] [id number] pH (U) 6.0 [pH] Normal 5.0-7.5 [facility] Work Phone: Comment on above: PATIENT WAS FASTINGP ERFORMED BY: [address] [id number] BY: LabCoJoseph [place] 7895670 Ter[address] [facility] [id number] Protein Ql (U) Negative Normal Comprehens jazmín Internal Medicine Work Phone: Comment on above: PATIENT WAS FASTINGP ERFORMED BY: [address] [id number] BY: [place] [id number] [facility] [id number] Specific gravity Relative Density (U) 1.012 1 Normal 1.005-1.03 0 [facility] Work Phone: Comment on above: PATIENT WAS FASTINGP ERFORMED BY: [address] [id number] BY: [facility]6370 [facility] [id number] Urobilinogen Test strip mass conc (U) 0.2 mg/dL Normal 0.2-1.0 Comprehensiv e Internal Medicine Work Phone: Comment on above: PATIENT WAS FASTINGP ERFORMED BY: [address] [id number] BY: [facility]6370 [facility] [id number] URINALYSIS, W/ MICRO (14609) Ordered By: T Rail Turner on 09-04-2017 Bilirubin Ql (U) Negative Normal Comprehe nsive Internal Medicine; [facility] Work Phone: Comment on above: PATIENT WAS FASTINGP ERFORMED BY: [address] [id number] BY: RAJ [facility] Zxrtlr8893 [address] RoadDublin [place] [id number] Glucose Ql (U) Negative Normal Comprehens jazmín [facility]; [facility] Work Phone: Comment on above: PATIENT WAS FASTINGP ERFORMED BY: [address] [id number] BY: RAJ [facility] Uycchi6822 [address] RoadDublin [place] [id number] Hemoglobin Ql (U) Negative Normal Compreh ensive Internal Medicine; [facility] Work Phone: Comment on above: PATIENT WAS FASTINGP ERFORMED BY: [address] [id number] BY: RAJ [facility] Rqoiek1589 [address] RoadDublin [place] [id number] Ketones Ql (U) Negative Normal Comprehens jazmín [facility]; [facility] Work Phone: Comment on above: PATIENT WAS FASTINGP ERFORMED BY: [address] [id number] BY: RAJ [facility] Kbqswe0014 [address] RoadDublin [place] [id number] Leukocyte esterase Test strip Ql (U) Negative Normal [facility]; [facility] Work Phone: Comment on above: PATIENT WAS FASTINGP ERFORMED BY: [address] [id number] BY: [facility] Igzbcz8407 [address] RoadDublin [place] [id number] Nitrite Ql (U) Negative Normal Comprehens jazmín [facility]; [facility] Work Phone: Comment on above: PATIENT WAS FASTINGP ERFORMED BY: [address] [id number] BY: RAJ [facility] Avxxuv2286 [address] RoadDublin [place] [id number] Protein Ql (U) Negative Normal Comprehens jazmín [facility]; [facility] Work Phone: Comment on above: PATIENT WAS FASTINGP ERFORMED BY: [employer] [id number] BY: [facility] Sihuqt6052 [address] RoadDublin [place] [id number] Urobilinogen (U) [Mass/Vol] 0.2 mg/dL Normal 0.2-1.0 [facility]; [facility] Work Phone: Comment on above: PATIENT WAS FASTINGP ERFORMED BY: [facility] [id number] BY: [facility] Tspgux9840 [address] RoadDublin [place] [id number] CBC W/AUTO DIFF WBC (02595)o n 10-20-2016 Basophils #/vol (Bld) 0.1 {x10E3/uL} Normal 0.0-0.2 [facility] Work Phone: Comment on above: PATIENT WAS FASTINGP ERFORMED BY: [facility] Epfmhp1510 [address] RoadDublin [place] [id number] Basophils/100 WBC (Bld) 1 % Normal [facility] Work Phone: Comment on above: PATIENT WAS FASTINGP ERFORMED BY: [facility] Kpvavk9861 [address] RoadDublin [place] [id number] Eosinophils #/vol (Bld) 0.3 {x10E3/uL} Normal 0.0-0.4 [facility] Work Phone: Comment on above: PATIENT WAS FASTINGP ERFORMED BY: [facility] Rqwoqo1001 [address] RoadDublin [place] [id number] Eosinophils/100 WBC (Bld) 5 % Normal [facility] Work Phone: Comment on above: PATIENT WAS FASTINGP ERFORMED BY: [facility] Wjhurk4367 [address] RoadDublin [place] [id number] Erythrocyte distribution width Ratio (RBC) 13.6 % Normal 12.3-15.4 [facility] Work Phone: Comment on above: PATIENT WAS FASTINGP ERFORMED BY: RAJ Mckinneylin6370 [address] [facility]in [place] [id number] Hematocrit Volume Fraction (Bld) 37.7 % Normal 34.0-46.6 [facility] Work Phone: Comment on above: PATIENT WAS FASTINGP ERFORMED BY: RAJ Mckinneylin6[address] [facility]in [place] [id number] Hemoglobin mass conc (Bld) 12.3 g/dL Normal 11.1-15.9 [facility] Work Phone: Comment on above: PATIENT WAS FASTINGP ERFORMED BY: RAJ Mckinneylin6370 [address] RoadUnc Health [place]oirin [place] [id number] Immature granulocytes #/vol (Bld) 0.0 {x10E3/uL} Normal 0.0-0.1 [facility] Work Phone: Comment on above: PATIENT WAS FASTINGP ERFORMED BY: RAJ Mckinneylin6370 [address] [facility] [id number] Immature granulocytes/100 WBC (Bld) 0 % Normal [facility] Work Phone: Comment on above: PATIENT WAS FASTINGP ERFORMED BY: RAJ Mckinneylin6[address] [facility]in [place] [id number] Lymphocytes #/vol (Bld) 1.3 {x10E3/uL} Normal 0.7-3.1 [facility] Work Phone: Comment on above: PATIENT WAS FASTINGP ERFORMED BY: RAJ Mckinneylin6[address] [facility]in [place] [id number] Lymphocytes/100 WBC (Bld) 19 % Normal [facility] Work Phone: Comment on above: PATIENT WAS FASTINGP ERFORMED BY: RAJ Mckinneylin6[address] [facility] [place] [id number] [facility] Entitic mass (RBC) 29.2 pg Normal 26.6-33.0 [facility] Work Phone: Comment on above: PATIENT WAS FASTINGP ERFORMED BY: RAJ Mckinneylin6370 [address] RoadUNC Health Johnston [facility] [id number] MCHC mass conc (RBC) 32.6 g/dL Normal 31.5-35.7 Comp [facility] Internal Medicine Work Phone: Comment on above: PATIENT WAS FASTINGP ERFORMED BY: RAJ [facility] Cfkarz2943 [facility] [id number] MCV Entitic volume (RBC) 90 fL Normal 79-97 [facility] Work Phone: Comment on above: PATIENT WAS FASTINGP ERFORMED BY: RAJ [facility] Grlfnn7070 [facility] [id number] Monocytes #/vol (Bld) 0.5 {x10E3/uL} Normal 0.1-0.9 [facility] Work Phone: Comment on above: PATIENT WAS FASTINGP ERFORMED BY: RAJ [facility] Kptqis5386 [facility] [id number] Monocytes/100 WBC (Bld) 7 % Normal [facility] Work Phone: Comment on above: PATIENT WAS FASTINGP ERFORMED BY: RAJ [facility] Ijtnos7301 [facility] [id number] Neutrophils #/vol (Bld) 4.9 {x10E3/uL} Normal 1.4-7.0 [facility] Work Phone: Comment on above: PATIENT WAS FASTINGP ERFORMED BY: [facility] Hewjgp2731 [facility] [id number] Neutrophils/100 WBC (Bld) 68 % Normal [facility] Work Phone: Comment on above: PATIENT WAS FASTINGP ERFORMED BY: [facility] Ffmqqu6937 [facility] [id number] Platelets #/vol (Bld) 288 {x10E3/uL} Normal 150-379 [facility] Work Phone: Comment on above: PATIENT WAS FASTINGP ERFORMED BY: RAJ [facility] Zdpuoi3565 [facility] [id number] RBC #/vol (Bld) 4.21 {x10E6/uL} Normal 3.77-5.28 [facility] Internal Medicine Work Phone: Comment on above: PATIENT WAS FASTINGP ERFORMED BY: RAJ Vickers Werebo4743 [facility] [id number] WBC #/vol (Bld) 7.1 {x10E3/uL} Normal 3.4-10.8 [facility] Internal Medicine Work Phone: Comment on above: PATIENT WAS FASTINGP ERFORMED BY: [address] [id number] CBC W/AUTO DIFF WBC ([id number])O rdered By: T Rail Turner on 10-20-2016 Basophils (Bld) [#/Vol] 0.1 10*3/uL Normal 0.0-0.2 [facility]; [facility] Work Phone: Comment on above: PATIENT WAS FASTINGP ERFORMED BY: [place] [id number] [facility] [id number] Eosinophils (Bld) [#/Vol] 0.3 10*3/uL Normal 0.0-0.4 [facility]; [facility] Work Phone: Comment on above: PATIENT WAS FASTINGP ERFORMED BY: [facility]6370 [facility] [id number] Immature granulocytes (Bld) [#/Vol] 0.0 10*3/uL Normal 0.0-0.1 [facility]; [facility] Work Phone: Comment on above: PATIENT WAS FASTINGP ERFORMED BY: [facility]6370 [facility] [id number] Lymphocytes (Bld) [#/Vol] 1.3 10*3/uL Normal 0.7-3.1 [facility]; [facility] Work Phone: Comment on above: PATIENT WAS FASTINGP ERFORMED BY: [place] [id number] [facility] [id number] Monocytes (Bld) [#/Vol] 0.5 10*3/uL Normal 0.1-0.9 [facility]; [facility] Work Phone: Comment on above: PATIENT WAS FASTINGP ERFORMED BY: RAJ Aleeglenis Quwbct9276 [address] RoadDublin [place] [id number] Neutrophils (Bld) [#/Vol] 4.9 10*3/uL Normal 1.4-7.0 [facility]; [facility] Work Phone: Comment on above: PATIENT WAS FASTINGP ERFORMED BY: RAJ LabAndrews MckinneyRygsqc0865 [address] RoadDublin [place] [id number] Platelets (Bld) [#/Vol] 288 10*3/uL Normal 150-379 [facility]; [facility] Work Phone: Comment on above: PATIENT WAS FASTINGP ERFORMED BY: RAJ Aleeglenis Gawtvd6689 [address] RoadDublin [place] [id number] RBC (Bld) [#/Vol] 4.21 10*6/uL Normal 3.77-5.28 Compr ehensive Internal Medicine; [facility] Work Phone: Comment on above: PATIENT WAS FASTINGP ERFORMED BY: RAJ SierraAndrews Rkinmi6652 [address] Road[address]ublin [place] [id number] WBC (Bld) [#/Vol] 7.1 10*3/uL Normal 3.4-10.8 [facility]; [facility] Work Phone: Comment on above: PATIENT WAS FASTINGP ERFORMED BY: RAJ Mckinneylin6370 [address] [facility] [place] [id number] LIPID PANEL (51244)on 2016 Cholesterol in HDL mass conc 47 mg/dL Normal [facility] Work Phone: Comment on above: PATIENT WAS FASTINGP ERFORMED BY: RAJ LabAndrews Jzontn1429 [address] Road[address]ublin [place] [id number] Cholesterol in LDL mass conc 108 mg/dL Abnormal 0-99 [facility] Work Phone: Comment on above: PATIENT WAS FASTINGP ERFORMED BY: RAJ LabAndrews MckinneyCdpyum9065 [address] RoadDublin [place] [id number] Cholesterol in LDL/Cholesterol in HDL mass ratio 2.3 {ratio_units} Normal 0.0-3.2 [facility] Work Phone: Comment on above: LDL/HDL Ratio Men Wo men 1/2 Avg.Risk 1.0 1.5 Avg.Risk 3.6 3.2 2X Avg.Risk 6.2 5.0 3X Avg.Risk 8.0 6.1 PATIENT WAS FASTINGP ERFORMED BY: RAJ [facility] Dietzz5962 [facility] [id number] Cholesterol in VLDL mass conc 25 mg/dL Normal 5-40 [facility] Work Phone: Comment on above: PATIENT WAS FASTINGP ERFORMED BY: RAJ [facility] Qcqbin3709 [facility] [id number] Cholesterol mass conc 180 mg/dL Normal 100-199 [facility] prehensive Internal Medicine Work Phone: Comment on above: PATIENT WAS FASTINGP ERFORMED BY: ARJ LabCoglenis Rkkbhi6478 [facility] [id number] Triglyceride mass conc 125 mg/dL Normal 0-149 [facility] Work Phone: Comment on above: PATIENT WAS FASTINGP ERFORMED BY: RAJ LabCoglenis MckinneyNsinzt5001 [facility] [id number] METABOLIC PANEL, COMPREHENSI VE ([id number])on 10-20-2016 Albumin mass conc 4.1 g/dL Normal 3.6-4.8 Compreh ensive Internal Medicine Work Phone: Comment on above: PATIENT WAS FASTINGP ERFORMED BY: RAJ [facility] Rdzkld2724 [facility] [id number] Albumin/Globulin mass ratio 1.5 {ratio} Normal 1.2-2.2 [facility] Work Phone: Comment on above: PATIENT WAS FASTINGP ERFORMED BY: RAJ [facility] Olqiwh6832 [facility] [id number] ALP enzyme act/vol 110 [iU]/L Normal 39-117 [facility]pre [facility] Internal Medicine Work Phone: Comment on above: PATIENT WAS FASTINGP ERFORMED BY: RAJ [facility] Nvijse6024 [address] RoadDublin [place] [id number] ALT enzyme act/vol 17 [iU]/L Normal 0-32 [facility] Work Phone: Comment on above: PATIENT WAS FASTINGP ERFORMED BY: RAJ [facility] Owalus9370 [address] RoadDublin [place] [id number] AST enzyme act/vol 22 [iU]/L Normal 0-40 [facility] Work Phone: Comment on above: PATIENT WAS FASTINGP ERFORMED BY: RAJ [facility] Mpkzbm5676 [address] RoadDublin [place] [id number] Bilirubin mass conc 0.4 mg/dL Normal 0.0-1.2 Compr ensive Internal Medicine Work Phone: Comment on above: PATIENT WAS FASTINGP ERFORMED BY: RAJ LabAndrews Baker6370 [address]ublin [place] [id number] Calcium mass conc 9.5 mg/dL Normal 8.7-10.3 Compreh bannerive Internal Medicine Work Phone: Comment on above: PATIENT WAS FASTINGP ERFORMED BY: RAJ LabAndrews MckinneySmqaqp4444 [address] RoadDublin [place] [id number] Chloride molar conc 102 mmol/L Normal 96-106 Compr [facility] Internal Medicine Work Phone: Comment on above: PATIENT WAS FASTINGP ERFORMED BY: RAJ [facility] Chjxxe6003 [address] RoadDublin [place] [id number] CO2 molar conc 27 mmol/L Normal 18-29 Comprehens jazmín Internal Medicine Work Phone: Comment on above: PATIENT WAS FASTINGP ERFORMED BY: RAJ [facility] Nwoncx0538 [address] RoadDublin [place] [id number] Creatinine mass conc 0.68 mg/dL Normal 0.57-1.00 Comp [facility] Internal [facility] Work Phone: Comment on above: PATIENT WAS FASTINGP ERFORMED BY: RAJ [facility] Fwplhv7391 [address] RoadDublin [place] [id number] GFR/1.73 sq M predicted among blacks CKD-EPI vol rate/area (S/P/Bld) 103 mL/min/1.73 Normal Comprehensiv e Internal Medicine Work Phone: Comment on above: PATIENT WAS FASTINGP ERFORMED BY: RAJ [facility] Jnyldq5864 [address] Roadblin [place] [id number] GFR/1.73 sq M predicted among non-blacks CKD-EPI vol rate/area (S/P/Bld) 90 mL/min/1.73 Normal [facility] Work Phone: Comment on above: PATIENT WAS FASTINGP ERFORMED BY: RAJ [facility] Gkpljy9716 Ter[address] RoadUnc Health Lenoirin [place] [id number] Globulin mass conc (S) 2.8 g/dL Normal 1.5-4.5 [facility] Work Phone: Comment on above: PATIENT WAS FASTINGP ERFORMED BY: RAJ LabCoglenis MckinneyGsxold0987 [facility] [id number] Glucose mass conc 85 mg/dL Normal 65-99 Compreh ensive Internal Medicine Work Phone: Comment on above: PATIENT WAS FASTINGP ERFORMED BY: RAJ LabCoglenis Hmgmdo8006 Ter[address] [facility]in [place] [id number] Potassium molar conc 5.1 mmol/L Normal 3.5-5.2 Comp rehensive Internal Medicine Work Phone: Comment on above: PATIENT WAS FASTINGP ERFORMED BY: RAJ [facility] Utylhm9085 [facility] [id number] Protein mass conc 6.9 g/dL Normal 6.0-8.5 Compreh ensive Internal Medicine Work Phone: Comment on above: PATIENT WAS FASTINGP ERFORMED BY: RAJ [facility] Gljyzd6371 [address] [facility]in [place] [id number] Sodium molar conc 144 mmol/L Normal 134-144 Compreh ensive Internal Medicine Work Phone: Comment on above: PATIENT WAS FASTINGP ERFORMED BY: RAJ [facility] Puupqw6967 [facility] [id number] Urea nitrogen mass conc 17 mg/dL Normal 8-27 [facility] Work Phone: Comment on above: PATIENT WAS FASTINGP ERFORMED BY: RAJ Aleeglenis Sjgmwi3091 [address] RoadDublin [place] [id number] Urea nitrogen/Creatinine mass ratio 25 mg/mg Normal 12-28 [facility] Work Phone: Comment on above: PATIENT WAS FASTINGP ERFORMED BY: RAJ LabLalyglenis MckinneyGaqqqy6827 [address] RoadDublin [place] [id number] METABOLIC PANEL, COMPREHENSI VE ([id number])Ordered By: T Rail Turner on 10-20-2016 ALP [Catalytic activity/Vol] 110 U/L Normal 39-117 [facility]; [facility] Work Phone: Comment on above: PATIENT WAS FASTINGP ERFORMED BY: RAJ SierraAndrews MckinneyJnvhbi4895 [address] RoadDublin [place] [id number] ALT [Catalytic activity/Vol] 17 U/L Normal 0-32 [facility]; [facility] Work Phone: Comment on above: PATIENT WAS FASTINGP ERFORMED BY: RAJ SierraAndrews MckinneySxhzvt0627 [address] RoadDublin [place] [id number] AST [Catalytic activity/Vol] 22 U/L Normal 0-40 [facility]; [facility] Work Phone: Comment on above: PATIENT WAS FASTINGP ERFORMED BY: RAJ Mckinneylin6370 [address] RoadDublin [place] [id number] MICROALBUMINOrdered By: Syst em Ham Doctor on 10-20-2016 Albumin DL <= 20 mg/L (U) [Mass/Vol] mg/dL Normal [facility]; [facility] Work Phone: Comment on above: PATIENT WAS FASTINGP ERFORMED BY: RAJ LabAndrews MckinneyCuvger0262 [address] RoadDublin [place] [id number] MICROALBUMINon 10-20-2016 Albumin DL <= 20 mg/L mass conc (U) mg/dL Normal [facility] Work Phone: Comment on above: PATIENT WAS FASTINGP ERFORMED BY: RAJ LabS[facility] Rxoyvs5961 [address] RoadDublin [place] [id number] Albumin/Creatinine mass ratio (U) <11.4 Normal 0.0-30.0 [facility] Work Phone: Comment on above: PATIENT WAS FASTINGP ERFORMED BY: LabCoBayshore Community HospitalCtczwr6464 [address] [facility]in [place] [id number] Creatinine mass conc (U) 26.4 mg/dL Normal [facility] Work Phone: Comment on above: PATIENT WAS FASTINGP ERFORMED BY: LabCoBayshore Community HospitalFkbuup4476 [facility] [id number] Microscopic Examinationon Bacteria LM.HPF #/area (Urine sed) Few Normal [facility] Work Phone: Comment on above: PATIENT WAS FASTINGP ERFORMED BY: [facility]6370 [facility] [id number] Epithelial cells LM.HPF #/area (Urine sed) /[HPF] Abnormal 0 - 10 [facility] Work Phone: Comment on above: PATIENT WAS FASTINGP ERFORMED BY: [facility]CoBayshore Community HospitalHeluor1052 [facility] [id number] RBC LM.HPF #/area (Urine sed) 0-2 Normal 0 - 2 [facility] Work Phone: Comment on above: PATIENT WAS FASTINGP ERFORMED BY: [facility]CoBayshore Community HospitalPeeocg0495 [facility] [id number] WBC LM.HPF #/area (Urine sed) 0-5 Normal 0 - 5 [facility] Work Phone: Comment on above: PATIENT WAS FASTINGP ERFORMED BY: [facility] Nyqtnf7940 [facility] [id number] TSH ([id number])on 10-20-2016 Thyrotropin Qn 2.730 {uIU/mL} Normal 0.450-4.50 0 [facility] Work Phone: Comment on above: PATIENT WAS FASTINGP ERFORMED BY: [facility] Uyzwkd3755 [facility] [id number] URINALYSIS, W/ MICRO (00205) on 10-20-2016 Appearance Nom (U) Clear Normal Compre hensive Internal Medicine Work Phone: Comment on above: PATIENT WAS FASTINGP ERFORMED BY: RAJ Mckinneylin6370 [address] RoadDublin [place] [id number] Bilirubin Ql (U) Negative Normal Comprehe nsive Internal Medicine Work Phone: Comment on above: PATIENT WAS FASTINGP ERFORMED BY: RAJ LabAndrews MckinneyWfknos8938 [address] Roadblin [place] [id number] Color Nom (U) Yellow Normal Comprehensi ve Internal Medicine Work Phone: Comment on above: PATIENT WAS FASTINGP ERFORMED BY: RAJ LabAndrews MckinneyLbutku2037 [address] RoadUnc Health Lenoirin [place] [id number] Glucose Ql (U) Negative Normal Comprehens jazmín Internal Medicine Work Phone: Comment on above: PATIENT WAS FASTINGP ERFORMED BY: RAJ Mckinneylin6370 [address] RoadUnc Health [facility]in [place] [id number] Hemoglobin Ql (U) Negative Normal Compreh ensive Internal Medicine Work Phone: Comment on above: PATIENT WAS FASTINGP ERFORMED BY: RAJ Mckinneylin6370 [address] RoadUnc Health [facility]in [place] [id number] Ketones Ql (U) Negative Normal Comprehens jazmín Internal Medicine Work Phone: Comment on above: PATIENT WAS FASTINGP ERFORMED BY: RAJ Mckinneylin6370 [address] RoadLihue [place] [id number] Leukocyte esterase Test strip Ql (U) Negative Normal [facility] Work Phone: Comment on above: PATIENT WAS FASTINGP ERFORMED BY: RAJ LabAndrews MckinneyFctqws6486 [address] RoadDublin [place] [id number] Microscopic observation LM Nom (Urine sed) See below: Normal [facility] Work Phone: Comment on above: Microscopic was venita cated and was performed. PATIENT WAS FASTINGP ERFORMED BY: RAJ LabAndrews MckinneyCntabp8483 [address] RoadDublin [place] [id number] Microscopic observation LM Nom (Urine sed) MICRON Normal [facility] Work Phone: Comment on above: Microscopic follows if indicated. PATIENT WAS FASTINGP ERFORMED BY: RAJ Cesar Baker6370 [address] Vitals ([email or web address].[employer])bl[place] [id number] Nitrite Ql (U) Negative Normal Comprehens jazmín Internal Medicine Work Phone: Comment on above: PATIENT WAS FASTINGP ERFORMED BY: RAJ Alee Zzhgnu4470 [facility] [id number] pH (U) 6.5 [pH] Normal 5.0-7.5 [facility] Work Phone: Comment on above: PATIENT WAS FASTINGP ERFORMED BY: RAJ Alee Lzopnb4804 [facility] [id number] Protein Ql (U) Negative Normal Comprehens jazmín Internal Medicine Work Phone: Comment on above: PATIENT WAS FASTINGP ERFORMED BY: RAJ Alee Fiogda5835 [facility] [id number] Specific gravity Relative Density (U) 1.008 1 Normal 1.005-1.03 0 [facility] Work Phone: Comment on above: PATIENT WAS FASTINGP ERFORMED BY: RAJ Cesar Baker6370 [facility] [id number] Urobilinogen Test strip mass conc (U) 0.2 mg/dL Normal 0.2-1.0 Comprehensiv e Internal Medicine Work Phone: Comment on above: PATIENT WAS FASTINGP ERFORMED BY: RAJ SierraSsm Rehab Zgijbg8675 [facility] [id number] URINALYSIS, W/ MICRO ([id number]) Ordered By: T Rail Turner on 10-20-2016 Bilirubin Ql (U) Negative Normal Comprehe nsive Internal Medicine; [facility] Work Phone: Comment on above: PATIENT WAS FASTINGP ERFORMED BY: RAJ LabSsm Re[facility] Fnbjrn0818 Ter[address] [facility]in [place] [id number] Glucose Ql (U) Negative Normal Comprehens jazmín Internal Medicine; [facility] Work Phone: Comment on above: PATIENT WAS FASTINGP ERFORMED BY: RAJ [facility] Kgwrvq1626 [address] RoadDublin [place] [id number] Hemoglobin Ql (U) Negative Normal Compreh ensive Internal Medicine; [facility] Work Phone: Comment on above: PATIENT WAS FASTINGP ERFORMED BY: RAJ [facility] Jmmuga4744 [address] RoadDublin [place] [id number] Ketones Ql (U) Negative Normal Comprehens jazmín Internal Medicine; [facility] Work Phone: Comment on above: PATIENT WAS FASTINGP ERFORMED BY: RAJ [facility] Lpgduh6177 [address] RoadDublin [place] [id number] Leukocyte esterase Test strip Ql (U) Negative Normal [facility]; [facility] Work Phone: Comment on above: PATIENT WAS FASTINGP ERFORMED BY: RAJ [facility] Dwfjnp1255 [address] RoadDublin [place] [id number] Nitrite Ql (U) Negative Normal Comprehens jazmín Internal Medicine; [facility] Work Phone: Comment on above: PATIENT WAS FASTINGP ERFORMED BY: RAJ [facility] Weitmn6307 [address] RoadDublin [place] [id number] Protein Ql (U) Negative Normal Comprehens jazmín Internal Medicine; [facility] Work Phone: Comment on above: PATIENT WAS FASTINGP ERFORMED BY: RAJ [facility] Grelpp8866 [address] RoadDublin [place] [id number] Urobilinogen (U) [Mass/Vol] 0.2 mg/dL Normal 0.2-1.0 [facility]; [facility] Work Phone: Comment on above: PATIENT WAS FASTINGP ERFORMED BY: CB [facility] Kcrxpy5786 [address] RoadDublin [place] [id number] Basic Metabolic Profile (BMP )on 08-18-2016 Basic metabolic 2000 panel 9.8 mg/dL Normal 8.5-10.1 [facility] Work Phone: Comment on above: [facility] [address] [place], [place], [address]506[address] Basic metabolic 2000 panel 3.6 mmol/L Normal 3.5-5.1 [facility] Work Phone: Comment on above: [facility] [address] [place], [place], [address]6541 Basic metabolic 2000 panel 106 mmol/L Normal 98-107 [facility] Work Phone: Comment on above: [facility] [address]wn[address]vmf[address] [place], [place], [id number] Basic metabolic 2000 panel 30.0 mmol/L Normal 21.0-32.0 [facility] Work Phone: Comment on above: [facility] [address] [place], [place], [id number] Basic metabolic 2000 panel 8 1 Normal 5-15 [facility] Work Phone: Comment on above: [place] [address] [place], [place], [id number] Basic metabolic 2000 panel 0.79 mg/dL Normal 0.55-1.02 [facility] Work Phone: Comment on above: The validity of the calculated GFR AND GFRAA in patients over70 years has not been determined. Clinical correlation isessential. [facility] [address] [place], [place], [id number] Basic metabolic 2000 panel 14 mg/dL Normal 7-18 [facility] Work Phone: Comment on above: [facility] [address] [place], [place], [id number] Basic metabolic 2000 panel 117 mg/dL Abnormal 70-110 [facility] Work Phone: Comment on above: Fasting Glucose resu lt from 110 to <126 mg/dLsuggests IMPAIRED HOMEOSTASIS per A.D.A. criteria. [facility] [address] [place], [place], [id number] Basic metabolic 2000 panel 144 mmol/L Normal 136-145 [facility] Work Phone: Comment on above: [facility] [address] [place], [place], [address] Basic metabolic 2000 panel 77 mL/min Normal [facility] Work Phone: Comment on above: Non- GFR Calc [facility] [address] [place], [place], [id number] Basic metabolic 2000 panel 93 mL/min Normal [facility] Work Phone: Comment on above: GFR Calc [facility] [address] [place], [place], [address]1691 Basic metabolic 2000 panel 38.68 ml/min Normal [facility] Work Phone: Comment on above: [facility] [address]ibisty[address] [place], [place], [id number] Basic metabolic 2000 panel 17.7 {RATIO} Normal 10-20 [facility] Work Phone: Comment on above: [facility] [address] [place], [place], [id number] CBC W/Diff, Automatedon 05-2 Absolute Neut 10.2 {X10_3/uL} Abnormal 2.0-7.7 [facility] Internal Medicine Work Phone: Comment on above: [facility] [address] [place], [place], [address] Basophils/100 WBC (Bld) 0.2 % Normal 0-1 [facility] Work Phone: Comment on above: [facility] [address] [place], [place], [address] Eosinophils/100 WBC (Bld) 0.8 % Normal 0-5 [facility] Work Phone: Comment on above: [facility] [address]uf[address] [place], [place], [id number] Erythrocyte distribution width Ratio (RBC) 13.1 % Normal 11.6-14.6 [facility] Work Phone: Comment on above: [facility] [address] [place], [address] Hematocrit Volume Fraction (Bld) 46.1 % Normal 37-47 [facility] Work Phone: Comment on above: [facility] [address] [place], [address] Hemoglobin mass conc (Bld) 15.2 g/dL Abnormal 12.0-15.0 [facility] Work Phone: Comment on above: [facility] [address] [place], [address] IM GRAN % 0.200 % Normal 0.0-0.9 [facility] Work Phone: Comment on above: IG% - Immature Granu locytes (promyelocytes, myelocytes andmetamyelocytes) > 1% indicates that a LEFT SHIFT is Present. [facility] [address] [place], [address] Lymphocytes #/vol (Bld) 1.27 {X10_3/ul} Normal 0.83-4.51 [facility] Work Phone: Comment on above: [facility] [address] [place], [address] Lymphocytes/100 WBC (Bld) 10.1 % Abnormal 19-41 [facility] Work Phone: Comment on above: [facility] [address] [place], [address] MCH Entitic mass (RBC) 30.2 pg Normal 27.0-32.0 [facility] Work Phone: Comment on above: [facility] [address] [place], [address] MCHC mass conc (RBC) 33.0 {g/gl} Normal 32-36 Com prehensive Internal Medicine Work Phone: Comment on above: [facility] [address] [place], [address] MCV Entitic volume (RBC) 91.7 fL Normal 81-99 [facility] Work Phone: Comment on above: [facility] [address] [place], [address] Monocytes/100 WBC (Bld) 6.9 % Normal 0-10 [facility] Work Phone: Comment on above: [facility] [address] [place], [address] Neutrophils/100 WBC (Bld) 81.8 % Abnormal 47-70 [facility] Work Phone: Comment on above: [facility] [address] [place], [address] Platelet mean volume Entitic volume (Bld) 10.4 fL Normal 6.2-12.0 Comprehensi ve Internal Medicine Work Phone: Comment on above: [facility] [address] [place], [address] Platelets #/vol (Bld) 364 10*3/uL Normal 150-450 [facility] rehabehensive Internal Medicine Work Phone: Comment on above: [facility] [address] [place], [address] RBC #/vol (Bld) 5.03 {M/mm3} Normal 4.2-5.4 Compreh ensive Internal Medicine Work Phone: Comment on above: [facility] [address] [place], [address] RDW SD 43.3 fL Normal 35.1-43.9 [facility] Work Phone: Comment on above: [facility] [address] [place], [place], [address] WBC #/vol (Bld) 12.5 10*3/uL Abnormal 4.4-11.0 Compreh ensive Internal Medicine Work Phone: Comment on above: [facility] [address] [place], [place], [address] Office Visit: UC: barbara x 1 w magno 07-20-2016 Dietary management education, guidance, and counseling (procedure) yes Invalid Interpretation Code [facility] Work Phone: Documentation of current medications (procedure) Done Invalid Interpretation Code [facility] Work Phone: Fall risk assessment No Invalid Interpretation Code [facility] Work Phone: Tobacco use CPHS Former smoker Invalid Interpretation Code [facility] Work Phone: CBC W/AUTO DIFF WBC (57004)o n 05-02-2016 Basophils #/vol (Bld) 0.1 {x10E3/uL} Normal 0.0-0.2 [facility] Work Phone: Comment on above: PATIENT WAS FASTINGP ERFORMED BY: RAJ [employer]Match Tclolm7832 [facility] [id number] Information: DIFFICULT DRAW Basophils/100 WBC (Bld) 1 % Normal [facility] Work Phone: Comment on above: PATIENT WAS FASTINGP ERFORMED BY: RAJ [employer] Lytghh5630 [facility] [id number] Information: DIFFICULT DRAW Eosinophils #/vol (Bld) 0.3 {x10E3/uL} Normal 0.0-0.4 [facility] Work Phone: Comment on above: PATIENT WAS FASTINGP ERFORMED BY: RAJ ClauseMatchBayshore Community HospitalFpcxuj9975 [facility] [id number] Information: DIFFICULT DRAW Eosinophils/100 WBC (Bld) 4 % Normal [facility] Work Phone: Comment on above: PATIENT WAS FASTINGP ERFORMED BY: [place] [id number] [facility] [id number] Information: DIFFICULT DRAW Erythrocyte distribution width Ratio (RBC) 13.8 % Normal 12.3-15.4 [facility] Work Phone: Comment on above: PATIENT WAS FASTINGP ERFORMED BY: [place] [id number] [facility] [id number] Information: DIFFICULT DRAW Hematocrit Volume Fraction (Bld) 40.9 % Normal 34.0-46.6 [facility] Work Phone: Comment on above: PATIENT WAS FASTINGP ERFORMED BY: [address] [id number] Information: DIFFICULT DRAW Hemoglobin mass conc (Bld) 13.5 g/dL Normal 11.1-15.9 [facility] Work Phone: Comment on above: PATIENT WAS FASTINGP ERFORMED BY: [address] [id number] Information: DIFFICULT DRAW Immature granulocytes #/vol (Bld) 0.0 {x10E3/uL} Normal 0.0-0.1 [facility] Work Phone: Comment on above: PATIENT WAS FASTINGP ERFORMED BY: [place] [id number] [facility] [id number] Information: DIFFICULT DRAW Immature granulocytes/100 WBC (Bld) 0 % Normal [facility] Work Phone: Comment on above: PATIENT WAS FASTINGP ERFORMED BY: [place] [id number] [facility] [id number] Information: DIFFICULT DRAW Lymphocytes #/vol (Bld) 1.7 {x10E3/uL} Normal 0.7-3.1 [facility] Work Phone: Comment on above: PATIENT WAS FASTINGP ERFORMED BY: [place] [id number] [facility] [id number] Information: DIFFICULT DRAW Lymphocytes/100 WBC (Bld) 20 % Normal [facility] Work Phone: Comment on above: PATIENT WAS FASTINGP ERFORMED BY: RAJ [facility]6370 [facility] [id number] Information: DIFFICULT DRAW MCH Entitic mass (RBC) 29.9 pg Normal 26.6-33.0 [facility] Work Phone: Comment on above: PATIENT WAS FASTINGP ERFORMED BY: RAJ [place] [id number] [facility] [id number] Information: DIFFICULT DRAW MCHC mass conc (RBC) 33.0 g/dL Normal 31.5-35.7 Comp [facility] Internal Medicine Work Phone: Comment on above: PATIENT WAS FASTINGP ERFORMED BY: RAJ [place] [id number] [facility] [id number] Information: DIFFICULT DRAW MCV Entitic volume (RBC) 91 fL Normal 79-97 [facility] Work Phone: Comment on above: PATIENT WAS FASTINGP ERFORMED BY: RAJ [place] [id number] [facility] [id number] Information: DIFFICULT DRAW Monocytes #/vol (Bld) 0.6 {x10E3/uL} Normal 0.1-0.9 [facility] Work Phone: Comment on above: PATIENT WAS FASTINGP ERFORMED BY: RAJ [place] [id number] [facility] [id number] Information: DIFFICULT DRAW Monocytes/100 WBC (Bld) 7 % Normal [facility] Work Phone: Comment on above: PATIENT WAS FASTINGP ERFORMED BY: RAJ [place] 1477070 [facility] [id number] Information: DIFFICULT DRAW Neutrophils #/vol (Bld) 5.9 {x10E3/uL} Normal 1.4-7.0 [facility] Work Phone: Comment on above: PATIENT WAS FASTINGP ERFORMED BY: [place] [id number] [facility] [id number] Information: DIFFICULT DRAW Neutrophils/100 WBC (Bld) 68 % Normal [facility] Internal Medicine Work Phone: Comment on above: PATIENT WAS FASTINGP ERFORMED BY: RAJ Mckinneylin6370 [facility] [id number] Information: DIFFICULT DRAW Platelets #/vol (Bld) 318 {x10E3/uL} Normal 150-379 [facility] Internal Medicine Work Phone: Comment on above: PATIENT WAS FASTINGP ERFORMED BY: RAJ [address]ck[address] [id number] Information: DIFFICULT DRAW RBC #/vol (Bld) 4.52 {x10E6/uL} Normal 3.77-5.28 [facility] Internal Medicine Work Phone: Comment on above: PATIENT WAS FASTINGP ERFORMED BY: RAJ [facility] HospitalAndrew[facility] MckinneyLworpy7[address] [id number] Information: DIFFICULT DRAW WBC #/vol (Bld) 8.7 {x10E3/uL} Normal 3.4-10.8 [facility] Internal Medicine Work Phone: Comment on above: PATIENT WAS FASTINGP ERFORMED BY: RAJ Mckinney[address] [id number] Information: DIFFICULT DRAW CBC W/AUTO DIFF WBC (01020)O rdered By: T Rail Turner on 05-02-2016 Basophils (Bld) [#/Vol] 0.1 10*3/uL Normal 0.0-0.2 [facility] Internal Medicine; [facility] Internal Medicine Work Phone: Comment on above: PATIENT WAS FASTINGP ERFORMED BY: RAJ Guerrero [address] [id number] Information: DIFFICULT DRAW Eosinophils (Bld) [#/Vol] 0.3 10*3/uL Normal 0.0-0.4 [facility] Internal Medicine; [facility] Internal Medicine Work Phone: Comment on above: PATIENT WAS FASTINGP ERFORMED BY: RAJ Mckinney[address] [id number] Information: DIFFICULT DRAW Immature granulocytes (Bld) [#/Vol] 0.0 10*3/uL Normal 0.0-0.1 [facility] Internal Medicine; [facility] Internal Medicine Work Phone: Comment on above: PATIENT WAS FASTINGP ERFORMED BY: RAJ Baker6370 [facility] [id number] Information: DIFFICULT DRAW Lymphocytes (Bld) [#/Vol] 1.7 10*3/uL Normal 0.7-3.1 [facility] Internal Medicine; [facility] Internal Medicine Work Phone: Comment on above: PATIENT WAS FASTINGP ERFORMED BY: RAJ [address] [id number] Information: DIFFICULT DRAW Monocytes (Bld) [#/Vol] 0.6 10*3/uL Normal 0.1-0.9 [facility] Internal [facility] Work Phone: Comment on above: PATIENT WAS FASTINGP ERFORMED BY: RAJ [facility] Mycujt[address] [id number] Information: DIFFICULT DRAW Neutrophils (Bld) [#/Vol] 5.9 10*3/uL Normal 1.4-7.0 [facility] Internal Medicine; [facility] Internal Medicine Work Phone: Comment on above: PATIENT WAS FASTINGP ERFORMED BY: RAJ Alee Hucprr8550 [facility] [id number] Information: DIFFICULT DRAW Platelets (Bld) [#/Vol] 318 10*3/uL Normal 150-379 [facility] Internal Medicine; [facility] Internal Medicine Work Phone: Comment on above: PATIENT WAS FASTINGP ERFORMED BY: [place] [id number] [facility] [id number] Information: DIFFICULT DRAW RBC (Bld) [#/Vol] 4.52 10*6/uL Normal 3.77-5.28 [facility] Internal Medicine; [facility] Internal Medicine Work Phone: Comment on above: PATIENT WAS FASTINGP ERFORMED BY: RAJ [place] [id number] [facility] [id number] Information: DIFFICULT DRAW WBC (Bld) [#/Vol] 8.7 10*3/uL Normal 3.4-10.8 [facility] Internal Medicine; [facility] Work Phone: Comment on above: PATIENT WAS FASTINGP ERFORMED BY: RAJ [facility] Gvyscl6921 [address] RoadDublin [place] [id number] Information: DIFFICULT DRAW LIPID PANEL (20640)on 2016 Cholesterol in HDL mass conc 44 mg/dL Normal [facility] Work Phone: Comment on above: PATIENT WAS FASTINGP ERFORMED BY: RAJ [facility] Kctqvc4182 [address] RoadDublin [place] [id number] Cholesterol in LDL mass conc 138 mg/dL Abnormal 0-99 [facility] Work Phone: Comment on above: PATIENT WAS FASTINGP ERFORMED BY: RAJ LabCoglenis MckinneyTvbsyc9447 [address] RoadDuin [place] [id number] Cholesterol in LDL/Cholesterol in HDL mass ratio 3.1 {ratio_units} Normal 0.0-3.2 [facility] Work Phone: Comment on above: LDL/HDL Ratio Men Wo men 1/2 Avg.Risk 1.0 1.5 Avg.Risk 3.6 3.2 2X Avg.Risk 6.2 5.0 3X Avg.Risk 8.0 6.1 PATIENT WAS FASTINGP ERFORMED BY: RAJ LabCoglenis Fjaxdn[address] [facility] [place] [id number] Cholesterol in VLDL mass conc 33 mg/dL Normal 5-40 [facility] Work Phone: Comment on above: PATIENT WAS FASTINGP ERFORMED BY: RAJ [facility] Xzaixy7068 [address] RoadDublin [place] [id number] Cholesterol mass conc 215 mg/dL Abnormal 100-199 [facility] prehensive Internal Medicine Work Phone: Comment on above: PATIENT WAS FASTINGP ERFORMED BY: RAJ [facility] Jfgrbx7391 [address] RoadDublin [place] [id number] Triglyceride mass conc 167 mg/dL Abnormal 0-149 [facility] Work Phone: Comment on above: PATIENT WAS FASTINGP ERFORMED BY: RAJ [facility] Jhnepw[address] [facility] [place] [id number] METABOLIC PANEL, COMPREHENSI VE (91963)on 05-02-2016 Albumin mass conc 4.3 g/dL Normal 3.6-4.8 Compreh ensive Internal Medicine Work Phone: Comment on above: PATIENT WAS FASTINGP ERFORMED BY: RAJ [facility] Mjbibl[address] [facility] [place] [id number] Albumin/Globulin mass ratio 1.7 {ratio} Normal 1.1-2.5 [facility] Work Phone: Comment on above: PATIENT WAS FASTINGP ERFORMED BY: RAJ [facility] Uueugo3349 [address] RoadUnc Health Lenoirin [place] [id number] ALP enzyme act/vol 110 [iU]/L Normal 39-117 Compre [facility] Internal Medicine Work Phone: Comment on above: PATIENT WAS FASTINGP ERFORMED BY: RAJ [facility] Vjkuni[address] [facility] [place] [id number] ALT enzyme act/vol 18 [iU]/L Normal 0-32 Compre [facility] Internal Medicine Work Phone: Comment on above: PATIENT WAS FASTINGP ERFORMED BY: RAJ [facility] Euddcw[address] [facility] [place] [id number] AST enzyme act/vol 25 [iU]/L Normal 0-40 Compre [facility] Internal Medicine Work Phone: Comment on above: PATIENT WAS FASTINGP ERFORMED BY: [facility] Uctyjf[address] [facility] [place] [id number] Bilirubin mass conc 0.4 mg/dL Normal 0.0-1.2 Compr [facility] Internal Medicine Work Phone: Comment on above: PATIENT WAS FASTINGP ERFORMED BY: RAJ [facility] Zcrwuq74[address] [facility] [place] [id number] Calcium mass conc 9.7 mg/dL Normal 8.7-10.3 Compreh ensive Internal Medicine Work Phone: Comment on above: PATIENT WAS FASTINGP ERFORMED BY: RAJ LabAndrews Baker6370 [address] Roadblin [place] [id number] Chloride molar conc 101 mmol/L Normal 96-106 Compr ehensive Internal Medicine Work Phone: Comment on above: PATIENT WAS FASTINGP ERFORMED BY: RAJ LabAndrews Baker6370 [address] RoadDublin [place] [id number] CO2 molar conc 21 mmol/L Normal 18-29 Comprehens jazmín Internal Medicine Work Phone: Comment on above: PATIENT WAS FASTINGP ERFORMED BY: RAJ LabAndrews Baker6370 [address] RoadUnc Health Lenoirin [place] [id number] Creatinine mass conc 0.64 mg/dL Normal 0.57-1.00 Comp [facility] Internal Medicine Work Phone: Comment on above: PATIENT WAS FASTINGP ERFORMED BY: RAJ Mckinneylin6370 [address] RoadUnc Health Lenoirin [place] [id number] GFR/1.73 sq M predicted among blacks CKD-EPI vol rate/area (S/P/Bld) 106 mL/min/1.73 Normal Comprehensiv e Internal Medicine Work Phone: Comment on above: PATIENT WAS FASTINGP ERFORMED BY: RAJ Mckinneylin6370 [address] RoadUnc Health Lenoirin [place] [id number] GFR/1.73 sq M predicted among non-blacks CKD-EPI vol rate/area (S/P/Bld) 92 mL/min/1.73 Normal [facility] Internal Medicine Work Phone: Comment on above: PATIENT WAS FASTINGP ERFORMED BY: RAJ LabS[facility] Ltbvwx[address] [facility] [place] [id number] Globulin mass conc (S) 2.5 g/dL Normal 1.5-4.5 [facility] Work Phone: Comment on above: PATIENT WAS FASTINGP ERFORMED BY: RAJ LabAndrews MckinneyAogxkn60[address] [facility] [place] [id number] Glucose mass conc 84 mg/dL Normal 65-99 Compreh ensive Internal Medicine Work Phone: Comment on above: PATIENT WAS FASTINGP ERFORMED BY: RAJ LabAndrews MckinneyEbwusc3012 [address] RoadDublin [place] [id number] Potassium molar conc 5.0 mmol/L Normal 3.5-5.2 Comp rehensive Internal Medicine Work Phone: Comment on above: PATIENT WAS FASTINGP ERFORMED BY: RAJ LabCoglenis MckinneyOvcgmy0594 [address] RoadDublin [place] [id number] Protein mass conc 6.8 g/dL Normal 6.0-8.5 Compreh ensive Internal Medicine Work Phone: Comment on above: PATIENT WAS FASTINGP ERFORMED BY: RAJ LabCoglenis MckinneyQrjdld9445 [address] RoadDublin [place] [id number] Sodium molar conc 144 mmol/L Normal 134-144 Compreh ensive Internal Medicine Work Phone: Comment on above: PATIENT WAS FASTINGP ERFORMED BY: RAJ LabLalyglenis MckinneyUevxmq7156 [address] RoadDuin [place] [id number] Urea nitrogen mass conc 18 mg/dL Normal 8-27 [facility] Work Phone: Comment on above: PATIENT WAS FASTINGP ERFORMED BY: RAJ LabAndrews MckinneyHmvbam[address] [facility] [place] [id number] Urea nitrogen/Creatinine mass ratio 28 mg/mg Abnormal 11-26 [facility] Work Phone: Comment on above: PATIENT WAS FASTINGP ERFORMED BY: RAJ Mckinneylin[address] [facility]in [place] [id number] METABOLIC PANEL, COMPREHENSI VE (96790)Ordered By: T Rail Turner on 05-02-2016 ALP [Catalytic activity/Vol] 110 U/L Normal 39-117 [facility]; [facility] Work Phone: Comment on above: PATIENT WAS FASTINGP ERFORMED BY: RAJ [facility] Ardkgg4944 [address] RoadDublin [place] [id number] ALT [Catalytic activity/Vol] 18 U/L Normal 0-32 [facility]; [facility] Work Phone: Comment on above: PATIENT WAS FASTINGP ERFORMED BY: RAJ [facility] Zlmhec2810 [address] RoadDublin [place] [id number] AST [Catalytic activity/Vol] 25 U/L Normal 0-40 [facility]; [facility] Work Phone: Comment on above: PATIENT WAS FASTINGP ERFORMED BY: RAJ LabAndrews MckinneyAgzdec7280 [address] RoadDublin [place] [id number] MICROALBUMINOrdered By: Syst em Ham Doctor on 05-02-2016 Albumin DL <= 20 mg/L (U) [Mass/Vol] mg/dL Normal [facility]; [facility] Work Phone: Comment on above: PATIENT WAS FASTINGP ERFORMED BY: RAJ LabAndrews MckinneyBzuuzh0802 [address] RoadDublin [place] [id number] MICROALBUMINon 05-02-2016 Albumin DL <= 20 mg/L mass conc (U) mg/dL Normal [facility] Work Phone: Comment on above: PATIENT WAS FASTINGP ERFORMED BY: RAJ Mckinneylin6370 [address] RoadDublin [place] [id number] Albumin/Creatinine mass ratio (U) <8.5 Normal 0.0-30.0 [facility] Work Phone: Comment on above: PATIENT WAS FASTINGP ERFORMED BY: RAJ Mckinneylin6[address] RoadDublin [place] [id number] Creatinine mass conc (U) 35.4 mg/dL Normal [facility] Work Phone: Comment on above: PATIENT WAS FASTINGP ERFORMED BY: RAJ Mckinneylin6370 [address] RoadDublin [place] [id number] Microscopic Examinationon Bacteria LM.HPF #/area (Urine sed) None seen Normal [facility] Work Phone: Comment on above: PATIENT WAS FASTINGP ERFORMED BY: RAJ LabCoglenis Gemgpq6519 [address] RoadDublin [place] [id number] Epithelial cells LM.HPF #/area (Urine sed) /[HPF] Abnormal 0 - 10 [facility] Work Phone: Comment on above: PATIENT WAS FASTINGP ERFORMED BY: RAJ [facility] Hyyrhu1538 [address] RoadDublin [place] [id number] Mucus Ql (Urine sed) Present Normal Comp rehensive Internal Medicine Work Phone: Comment on above: PATIENT WAS FASTINGP ERFORMED BY: RAJ [facility] Hpextx0664 [address] RoadDublin [place] [id number] RBC LM.HPF #/area (Urine sed) None seen Normal 0 - 2 [facility] Work Phone: Comment on above: PATIENT WAS FASTINGP ERFORMED BY: CB [facility] Eoebwz4250 [address] RoadDublin [place] [id number] WBC LM.HPF #/area (Urine sed) 0-5 Normal 0 - 5 [facility] Work Phone: Comment on above: PATIENT WAS FASTINGP ERFORMED BY: RAJ [facility] Kkbtny8084 [address] RoadDublin [place] [id number] TSH (79724)on 05-02-2016 Thyrotropin Qn 1.490 {uIU/mL} Normal 0.450-4.50 0 [facility] Work Phone: Comment on above: PATIENT WAS FASTINGP ERFORMED BY: RAJ [facility] Geyfkh3141 [address] RoadDublin [place] [id number] URINALYSIS, W/ MICRO (18073) on 05-02-2016 Appearance Nom (U) Clear Normal Compre hensive Internal Medicine Work Phone: Comment on above: PATIENT WAS FASTINGP ERFORMED BY: RAJ [facility] Emspho9005 [address] RoadDublin [place] [id number] Bilirubin Ql (U) Negative Normal Comprehe nsive Internal Medicine Work Phone: Comment on above: PATIENT WAS FASTINGP ERFORMED BY: CB [facility] Lbcttf6644 [address] RoadDublin [place] [id number] Color Nom (U) Yellow Normal Comprehensi ve Internal Medicine Work Phone: Comment on above: PATIENT WAS FASTINGP ERFORMED BY: CB [facility] Yewukm1799 [address] RoadDublin [place] [id number] Glucose Ql (U) Negative Normal Comprehens jazmín Internal Medicine Work Phone: Comment on above: PATIENT WAS FASTINGP ERFORMED BY: RAJ [facility] Btidzu4848 [address] RoadDublin [place] [id number] Hemoglobin Ql (U) Negative Normal Compreh ensive Internal Medicine Work Phone: Comment on above: PATIENT WAS FASTINGP ERFORMED BY: RAJ [facility] Zytqne6108 [address] RoadDublin [place] [id number] Ketones Ql (U) Negative Normal Comprehens jazmín Internal Medicine Work Phone: Comment on above: PATIENT WAS FASTINGP ERFORMED BY: RAJ [facility] Xnsvqn3092 [address] RoadDublin [place] [id number] Leukocyte esterase Test strip Ql (U) 1+ Abnormal [facility] Work Phone: Comment on above: PATIENT WAS FASTINGP ERFORMED BY: RAJ [facility] Yfrzyv2972 [address] RoadDublin [place] [id number] Microscopic observation LM Nom (Urine sed) See below: Normal [facility] Work Phone: Comment on above: Microscopic was venita cated and was performed. PATIENT WAS FASTINGP ERFORMED BY: ARJ [facility] Hnpzqt4288 [address] RoadDublin [place] [id number] Nitrite Ql (U) Negative Normal Comprehens jazmín Internal Medicine Work Phone: Comment on above: PATIENT WAS FASTINGP ERFORMED BY: RAJ [facility] Xvdbik7385 [address] RoadDublin [place] [id number] pH (U) 6.5 [pH] Normal 5.0-7.5 [facility] Work Phone: Comment on above: PATIENT WAS FASTINGP ERFORMED BY: RAJ [facility] Fuwuht1647 [address] RoadDublin [place] [id number] Protein Ql (U) Negative Normal Comprehens jazmín Internal Medicine Work Phone: Comment on above: PATIENT WAS FASTINGP ERFORMED BY: RAJ [facility] Tbfrko0460 [address] RoadDublin [place] [id number] Specific gravity Relative Density (U) 1.010 1 Normal 1.005-1.03 0 [facility] Work Phone: Comment on above: PATIENT WAS FASTINGP ERFORMED BY: RAJ SierraAndrews MckinneySvvcss2428 [facility] [id number] Urobilinogen Test strip mass conc (U) 0.2 mg/dL Normal 0.2-1.0 Comprehensiv e Internal Medicine Work Phone: Comment on above: PATIENT WAS FASTINGP ERFORMED BY: RAJ SierraAndrews MckinneyXpnlmz2302 [facility] [id number] URINALYSIS, W/ MICRO ([id number]) Ordered By: T Rail Turner on 05-02-2016 Bilirubin Ql (U) Negative Normal Comprehe nsive Internal Medicine; [facility] Work Phone: Comment on above: PATIENT WAS FASTINGP ERFORMED BY: RAJ SierraAndrews MckinneyPixvgp4293 [facility] [id number] Glucose Ql (U) Negative Normal Comprehens jazmín Internal Medicine; [facility] Work Phone: Comment on above: PATIENT WAS FASTINGP ERFORMED BY: RAJ SierraAndrews MckinneyWpkvjc5252 [facility] [id number] Hemoglobin Ql (U) Negative Normal Compreh ensive Internal Medicine; [facility] Work Phone: Comment on above: PATIENT WAS FASTINGP ERFORMED BY: RAJ SierraAndrews MckinneyOzdufx4331 [facility] [id number] Ketones Ql (U) Negative Normal Comprehens jazmín Internal Medicine; [facility] Work Phone: Comment on above: PATIENT WAS FASTINGP ERFORMED BY: RAJ Mckinneylin6370 [facility] [id number] Nitrite Ql (U) Negative Normal Comprehens jazmín Internal Medicine; [facility] Work Phone: Comment on above: PATIENT WAS FASTINGP ERFORMED BY: RAJ SierraAndrews MckinneyPcrobn8776 [facility] [id number] Protein Ql (U) Negative Normal Comprehens jazmín Internal Medicine; [facility] Work Phone: Comment on above: PATIENT WAS FASTINGP ERFORMED BY: RAJ SierraAndrews MckinneyVethgk6381 [facility] [id number] Urobilinogen (U) [Mass/Vol] 0.2 mg/dL Normal 0.2-1.0 [facility]; [facility] Work Phone: Comment on above: PATIENT WAS FASTINGP ERFORMED BY: RAJ LabCoBayshore Community HospitalXlwzig9898 [facility] [id number] Office Visiton 12-10-2015 Dietary management education, guidance, and counseling (procedure) yes Invalid Interpretation Code [facility] Now [facility] Work Phone: Documentation of current medications (procedure) Done Invalid Interpretation Code [facility] Work Phone: Clinical Lists Update: 10-03-2015 Hematocrit (HCT) 35.1 % Invalid Interpretation Code [facility] Work Phone: Hemoglobin (HGB) 11.2 g/dL Invalid Interpretation Code [facility] Work Phone: Platelets 253 10*3/mm3 Invalid Interpretation Code [facility] Work Phone: WBC (Leukocytes) 12.5 10*3/uL Invalid Interpretation Code [facility] Work Phone: Clinical Lists Update: 10-02-2015 BUN/Creatinine Ratio 20.2 mg/mg Invalid Interpretation Code [facility] Work Phone: Calcium 8.4 mg/dL Invalid Interpretation Code [facility] Work Phone: Chloride 107 mmol/L Invalid Interpretation Code [facility] Work Phone: CO2 27.0 mmol/L Invalid Interpretation Code [facility] Work Phone: Creatinine 0.74 mg/dL Invalid Interpretation Code [facility] Work Phone: Glucose 137 mg/dL Invalid Interpretation Code [facility] Work Phone: Potassium 3.9 mmol/L Invalid Interpretation Code [facility] Work Phone: Sodium 142 mmol/L Invalid Interpretation Code [facility] Work Phone: Urea nitrogen 15 mg/dL Invalid Interpretation Code [facility] Work Phone: MRSA/SAID SCREENon 6 MRSA+SAID SCRN See Note Normal Comprehens jazmín Internal Medicine Work Phone: Comment on above: MRSA/SAID SCRNS. AUR EUS S. aureus NegativeMRSA MRSA Negative [facility] [address] [place], [place], [address] Basic Metabolic Profile (BMP )on 09-12-2015 Basic metabolic 2000 panel 9.1 mg/dL Normal 8.5-10.1 [facility] Work Phone: Comment on above: [facility] [address] [place], [place], [id number] Basic metabolic 2000 panel 105 mmol/L Normal 98-107 [facility] Work Phone: Comment on above: [facility] [address] [place], [place], [id number] Basic metabolic 2000 panel 17 mg/dL Normal 7-18 [facility] Work Phone: Comment on above: [facility] [address] [place], [place], [id number] Basic metabolic 2000 panel 0.65 mg/dL Normal 0.55-1.20 [facility] Work Phone: Comment on above: The validity of the calculated GFR AND GFRAA in patients over70 years has not been determined. Clinical correlation isessential. [facility] [address] [place], [place], [id number] Basic metabolic 2000 panel 97 mL/min Normal [facility] Work Phone: Comment on above: Non- GFR Calc [facility] [address] [place], [place], [id number] Basic metabolic 2000 panel 117 mL/min Normal [facility] Work Phone: Comment on above: GFR Calc [facility] [address] [place], [place], [id number] Basic metabolic 2000 panel 38.68 ml/min Normal [facility] Work Phone: Comment on above: [facility] [address] [place], [place], [address] Basic metabolic 2000 panel 26.3 {RATIO} Abnormal 10-20 [facility] Work Phone: Comment on above: [facility] [address] [place], [address] Basic metabolic 2000 panel 78 mg/dL Normal 70-110 [facility] Work Phone: Comment on above: [facility] [address] [place], [address] Basic metabolic 2000 panel 140 mmol/L Normal 136-145 [facility] Work Phone: Comment on above: [facility] [address] [place], [address] Basic metabolic 2000 panel 4.4 mmol/L Normal 3.5-5.1 [facility] Work Phone: Comment on above: [facility] [address] [place], [address] Basic metabolic 2000 panel 4 1 Abnormal 5-15 [facility] Work Phone: Comment on above: [facility] [address] [place], [address] Basic metabolic 2000 panel 31.0 mmol/L Normal 21.0-32.0 [facility] Work Phone: Comment on above: [facility] [address] [place], [place], [address] CBC-Complete Blood Cnt No Di ffon 09-12-2015 Erythrocyte distribution width Ratio (RBC) 12.7 % Normal 11.6-14.6 [facility] Work Phone: Comment on above: [facility] [address] [place], [address] Hematocrit Volume Fraction (Bld) 40.9 % Normal 37-47 [facility] Work Phone: Comment on above: [facility] [address] [place], [address] Hemoglobin mass conc (Bld) 13.3 g/dL Normal 12.0-15.0 [facility] Work Phone: Comment on above: [facility] [address] [place], [address] MCH Entitic mass (RBC) 30.4 pg Normal 27.0-32.0 [facility] Internal Medicine Work Phone: Comment on above: [facility] [address] [place], [address] MCHC mass conc (RBC) 32.5 {g/gl} Normal 32-36 Com prehensive Internal Medicine Work Phone: Comment on above: [facility] [address] [place], [address] MCV Entitic volume (RBC) 93.6 fL Normal 81-99 [facility] Work Phone: Comment on above: [facility] [address] [place], [address] Platelet mean volume Entitic volume (Bld) 10.9 fL Normal 6.2-12.0 Comprehensi Internal Medicine Work Phone: Comment on above: [facility] [address] [place], [address] Platelets #/vol (Bld) 290 10*3/uL Normal 150-450 [facility] Internal Medicine Work Phone: Comment on above: [facility] [address] [place], [address] RBC #/vol (Bld) 4.37 {M/mm3} Normal 4.2-5.4 Compreh [facility] Internal Medicine Work Phone: Comment on above: [facility] [address] [place], [place], [id number] WBC #/vol (Bld) 8.0 10*3/uL Normal 4.4-11.0 Comprehe nsive Internal Medicine Work Phone: Comment on above: [facility] [address] [place], [place], [id number] CBC-Complete Blood Cnt No Diff 42.5 fL Normal 35.1-43.9 [facility] Work Phone: Comment on above: [facility] [address] [place], [place], [id number] Urinalysis, Completeon 09-11 Protein mass conc (U) Negative Normal Com prehensive Internal Medicine Work Phone: Comment on above: How was Urine Obtain ed? [facility] [address] [place], [address] RBC #/vol (U) 0 SEEN Normal 0-5 Comprehensi ve Internal Medicine Work Phone: Comment on above: How was Urine Obtain ed? [facility] [address] [place], [address] Urinalysis complete panel - Urine 0 SEEN Normal [facility] Work Phone: Comment on above: How was Urine Obtain ed? [facility] [address] [place], [address] Urinalysis complete panel - Urine Negative Normal [facility] Work Phone: Comment on above: How was Urine Obtain ed? [facility] [address] [place], [place], [phone] Urinalysis complete panel - Urine Clear Normal [facility] Work Phone: Comment on above: How was Urine Obtain ed? [facility] [address] [place], [place], [address] Urinalysis complete panel - Urine 1.015 1 Normal 1.002-1.03 0 [facility] Work Phone: Comment on above: How was Urine Obtain ed? [facility] [address] [place], [place], [id number] Urinalysis complete panel - Urine Normal Normal [facility] Work Phone: Comment on above: How was Urine Obtain ed? [facility] [address] [place], [place], [id number] Urinalysis complete panel - Urine 6.0 1 Normal 5.0 - 8.0 [facility] Work Phone: Comment on above: How was Urine Obtain ed? [facility] [address] [place], [place], [id number] Urinalysis complete panel - Urine 5-10 SEEN Normal 5-10 [facility] Work Phone: Comment on above: How was Urine Obtain ed? [facility] [address] [place], [place], [phone] Urinalysis complete panel - Urine Yellow Normal [facility] Work Phone: Comment on above: How was Urine Obtain ed? [facility] [address] [place], [place], [address] Clinical Lists Updateon 05-22 Left ventricular Ejection fraction 65 % Invalid Interpretation Code [facility] Work Phone: Office Visiton 12-11-2014 General cardiovascular disease 10Y risk [#] [place].D'Agostino 11 % Invalid Interpretation Code [facility] Work Phone: Tobacco use CPHS Former smoker Invalid Interpretation Code [facility] Work Phone: Replaced Document: Mid[employer] E CG Observationson 12-11-2014 electrocardiogram interpretation Sinus Rhythm -First degree A-V block Giselle = 238-RSR(V1) -nondiagnostic. BORDERLINE RHYTHM Invalid Interpretation Code [facility] Work Phone: GE use only - for LinkLogic import when terms are not otherwise specified 392 ms Invalid Interpretation Code [facility] Work Phone: P wave axis, electrocardiogram 49 deg Invalid Interpretation Code [facility] Work Phone: MI interval, electrocardiogram 238 ms Invalid Interpretation Code [facility] Work Phone: Pulse (Heart Rate) 66 /min Invalid Interpretation Code [facility] Work Phone: QRS axis, electrocardiogram 17 deg Invalid Interpretation Code [facility] Work Phone: QRS duration, electrocardiogram 102 ms Invalid Interpretation Code [facility] Work Phone: QT interval, electrocardiogram new path ms Invalid Interpretation Code [facility] Work Phone: T wave axis, electrocardiogram 11 deg Invalid Interpretation Code [facility] Work Phone: Lab Report: Lipid Profileon 12-05-2014 Cholesterol 193 mg/dL Normal [facility] Work Phone: Comment on above: <200 mg/dL Desirable 200-240 mg/dL Borderline >240 mg/dL High Risk DONE PER PT. REQUEST Test performed at:[facility] [address] [place] [address] HDL Cholesterol 47 mg/dL Normal [facility] Work Phone: Comment on above: Reference Range HDL <40 mg/dL Low HDL Cholesterol HDL >or= 60 mg/dL High HDL Cholesterol DONE PER PT. REQUEST Test performed at:[facility] [address] [place], [place] [id number] LDL Cholesterol 120 mg/dL Normal 0-130 [facility] Work Phone: Comment on above: DONE PER PT. REQUEST Test performed at:[facility] [address] [place] [address] Triglyceride 131 mg/dL Normal [facility] Work Phone: Comment on above: Serum Triglycerides Reference Interval Normal <150 mg/dL Borderline high 150 - 199 mg/dL High 200 - 499 mg/dL Very High > or = 500 mg/dL DONE PER PT. REQUEST Test performed at:[facility] [address] [place] [address] very low density lipoproteins 26 mg/dL Invalid Interpretation Code 5-40 [facility] Work Phone: Lab Report: Liver Profileon 12-05-2014 Alanine aminotransferase (ALT) 30 U/L Normal 12-78 [facility] Work Phone: Comment on above: DONE PER PT. REQUEST Test performed at:[facility] [address] [place] [address] Albumin 3.4 g/dL Normal 3.4-5.0 [facility] Work Phone: Comment on above: DONE PER PT. REQUEST Test performed at:[facility] [address] [place] [address] Alkaline phosphatase (ALP) 118 U/L Normal 50-136 [facility] Work Phone: Comment on above: DONE PER PT. REQUEST Test performed at:[facility] [address] [place] [address] Aspartate aminotransferase (AST) 22 U/L Normal 15-37 [facility] Work Phone: Comment on above: DONE PER PT. REQUEST Test performed at:[facility] [address] [place] [address] Bilirubin (direct) 0.08 mg/dL Normal 0.00-0.30 [facility] Work Phone: Comment on above: DONE PER PT. REQUEST Test performed at:[facility] [address] [place] [address] Bilirubin (total) 0.30 mg/dL Normal 0.20-1.00 [facility] Work Phone: Comment on above: DONE PER PT. REQUEST Test performed at:[facility] [address] [place], [place] [id number] Protein 7.3 g/dL Normal 6.4-8.2 [facility] Work Phone: Comment on above: DONE PER PT. REQUEST Test performed at:[facility] [address] [place] [address] Globulin 3.9 g/dL High 2.3-3.5 [facility] Work Phone: Lipid Profileon 12-05-2014 Cholesterol in VLDL mass conc 26 mg/dL Normal 5-40 [facility] Work Phone: Comment on above: DONE PER PT. REQUEST Test performed at:[facility] [address] [place] [address] Liver Profileon 12-05-2014 Globulin mass conc (S) 3.9 g/dL Abnormal 2.3-3.5 [facility] Work Phone: Comment on above: DONE PER PT. REQUEST Test performed at:[facility] [address] [place] [address] LIPID PANEL ([id number])on 2014 Cholesterol in HDL mass conc 49 mg/dL Normal [facility] Work Phone: Comment on above: According to ATP-III Guidelines, HDL-C >59 mg/dL is considered anegative risk factor for CHD. PATIENT WAS FASTINGP ERFORMED BY: [employer] Vino70 [facility] [id number] Information: [id number] Cholesterol in LDL mass conc 111 mg/dL Abnormal 0-99 [facility] Work Phone: Comment on above: PATIENT WAS FASTINGP ERFORMED BY: [employer] Ljiqjg0846 [facility] [id number] Information: [id number] Cholesterol in LDL/Cholesterol in HDL mass ratio 2.3 {ratio_units} Normal 0.0-3.2 [facility] Work Phone: Comment on above: LDL/HDL Ratio Men Wo men 1/2 Avg.Risk 1.0 1.5 Avg.Risk 3.6 3.2 2X Avg.Risk 6.2 5.0 3X Avg.Risk 8.0 6.1 PATIENT WAS FASTINGP ERFORMED BY: CB [facility] Kqwszl5467 [facility] [id number] Information: [id number] Cholesterol in VLDL mass conc 23 mg/dL Normal 5-40 [facility] Work Phone: Comment on above: PATIENT WAS FASTINGP ERFORMED BY: CB [facility] Zaueog8717 [facility] [id number] Information: [id number] Cholesterol mass conc 183 mg/dL Normal 100-199 [facility] prehensive Internal Medicine Work Phone: Comment on above: PATIENT WAS FASTINGP ERFORMED BY: CB [facility] Vcqtej8251 [facility] [id number] Information: [id number] Triglyceride mass conc 117 mg/dL Normal 0-149 [facility] Work Phone: Comment on above: PATIENT WAS FASTINGP ERFORMED BY: CB [facility] Hjhshu2920 [facility] [id number] Information: [id number] PPD ([id number])Ordered By: Silvio Uribe on 07-04-2014 PPD ([id number]) Negative Normal [facility] Work Phone: Comment on above: lot:[id number]:06/05ro nan:IDdose:0.1mgSite:L forearmgiven by: ANSpt aware that test needs to be read in 48 to 72 hours PPD ([id number])on 07-04-2014 PPD (35017) Negative Normal [facility]; [facility] Work Phone: Comment on above: lot:[id number]:06/05ro nan:IDdose:0.1mgSite:L forearmgiven by: ANSpt aware that test needs to be read in 48 to 72 hours Office Visit: [facility] 03-06-20 14 cardiac risk group B Invalid Interpretation Code [facility] Work Phone: Lab Report: Ordered by Dr. Tisha gaytan 06-02-2013 Cholesterol to HDL Ratio N/A Invalid Interpretation Code [facility] Work Phone: Erythrocytes (RBC) 4.29 10*6/uL Invalid Interpretation Code [facility] Work Phone: MCH 31.5 pg Invalid Interpretation Code [facility] Work Phone: MCHC 34.2 % Invalid Interpretation Code [facility] Work Phone: MCV 92.0 fL Invalid Interpretation Code [facility] Work Phone: PMV by Bridger 8.5 fL Invalid Interpretation Code [facility] Work Phone: RDW-CA 12.9 % Invalid Interpretation Code [facility] Work Phone: Replaced Document: Phu Bautistaon 11-24-2012 Pulse (Heart Rate) 392 ms Invalid Interpretation Code [facility] Work Phone: IOL BIOMETRY W/ IOL CALC OU (BOTH EYES) [facility] Vital Signs Date Time Vital Sign Value Performing Clinician Facility 09-07-2024 21:00-0400 Diastolic blood pressure 83 mm[Hg] Dr. Dot Allen DO Work Phone: [facility] 09-07-2024 21:00-0400 Heart rate 75 /min Dr. Dot Allen DO Work Phone: [facility] 09-07-2024 21:00-0400 Inhaled oxygen flow rate 2 L/min Dr. Dot Allen DO Work Phone: [facility] 09-07-2024 21:00-0400 Respiratory rate 16 /min Dr. Dot Allen DO Work Phone: [facility] 09-07-2024 21:00-0400 SaO2% (BldA) [Mass fraction] 97 % Dr. Dot Allen DO Work Phone: [facility] 09-07-2024 21:00-0400 Systolic blood pressure 183 mm[Hg] Dr. Dot Allen DO Work Phone: [facility] 09-07-2024 20:41-0400 Body temperature 98.4 [degF] Dr. Dot Allen DO Work Phone: [facility] 09-07-2024 16:26-0400 Body mass index (BMI) [Ratio] 40.2 kg/m2 Dr. Dot Allen DO Work Phone: [facility] 09-07-2024 16:26-0400 Body weight 90.[address] Dot Allen DO Work Phone: [facility] 09-07-2024 15:15-0400 Body height 149.[address] Dot Allen DO Work Phone: [facility] 08-26-2024 10:19-0400 Body height 149.9 cm Yelena Garcia MD Work Phone: [facility] 08-26-2024 10:19-0400 Body mass index (BMI) [Ratio] 36.56 kg/m2 Yelena Garcia MD Work Phone: [facility] 08-26-2024 10:19-0400 Body weight 82.1 kg Yelena Garcia MD Work Phone: [facility] Comment on above: Recorded weight from last visit. 08-26-2024 10:19-0400 Diastolic blood pressure 76 mm[Hg] Yelena Garcia MD Work Phone: [facility] 08-26-2024 10:19-0400 Heart rate 70 /min Yelena Garcia MD Work Phone: [facility] 08-26-2024 10:19-0400 Systolic blood pressure 140 mm[Hg] Yelena Garcia MD Work Phone: [facility] 08-21-2024 07:00-0400 Body temperature 97.7 [degF] Yelena Garcia MD Work Phone: [facility] 08-21-2024 07:00-0400 Diastolic blood pressure 58 mm[Hg] Yelena Garcia MD Work Phone: [facility] 08-21-2024 07:00-0400 Heart rate 86 /min Yelena Garcia MD Work Phone: [facility] 08-21-2024 07:00-0400 Respiratory rate 16 /min Yelena Garcia MD Work Phone: [facility] 08-21-2024 07:00-0400 SaO2% (BldA) [Mass fraction] 95 % Yelena Garcia MD Work Phone: [facility] 08-21-2024 07:00-0400 Systolic blood pressure 98 mm[Hg] Yelena Garcia MD Work Phone: [facility] 08-21-2024 06:00-0400 Body mass index (BMI) [Ratio] 36.65 kg/m2 Yelena Garcia MD Work Phone: [facility] 08-21-2024 06:00-0400 Body weight 82.3 kg Yelena Garcia MD Work Phone: [facility] 08-12-2024 11:42-0400 Body height 149.9 cm Yelena Garcia MD Work Phone: [facility] 06-15-2024 13:51-0400 Body mass index (BMI) [Ratio] 39.08 kg/m2 Damaso Alvarez MD Work Phone: [facility] 06-15-2024 13:51-0400 Body temperature 97 [degF] Damaso Alvarez MD Work Phone: [facility] 06-15-2024 13:51-0400 Body weight 87.77 kg Damaso Alvarez MD Work Phone: [facility] 06-15-2024 13:51-0400 Diastolic blood pressure 57 mm[Hg] Damaso Alvarez MD Work Phone: [facility] 06-15-2024 13:51-0400 Heart rate 62 /min Damaso Alvarez MD Work Phone: [facility] 06-15-2024 13:51-0400 SaO2% (BldA) [Mass fraction] 95 % Damaso Alvarez MD Work Phone: [facility] 06-15-2024 13:51-0400 Systolic blood pressure 123 mm[Hg] Damaso Alvarez MD Work Phone: [facility] 05-18-2024 13:00-0500 Body temperature 98.29 [degF] Treatment Wstr Work Phone: [facility] 05-18-2024 13:00-0500 Diastolic blood pressure 80 mm[Hg] Treatment Wstr Work Phone: [facility] 05-18-2024 13:00-0500 Heart rate 72 /min Treatment Wstr Work Phone: [facility] 05-18-2024 13:00-0500 Systolic blood pressure 139 mm[Hg] Treatment Wstr Work Phone: [facility] 04-20-2024 14:15-0500 Body mass index (BMI) [Ratio] 39.99 kg/m2 Injection Wstr Work Phone: [facility] 04-20-2024 14:15-0500 Body temperature 97.59 [degF] Injection Wstr Work Phone: [facility] 04-20-2024 14:15-0500 Body weight 89.81 kg Injection Wstr Work Phone: [facility] 04-20-2024 14:15-0500 Diastolic blood pressure 70 mm[Hg] Injection Wstr Work Phone: [facility] 04-20-2024 14:15-0500 Heart rate 76 /min Injection Wstr Work Phone: [facility] 04-20-2024 14:15-0500 Respiratory rate 12 /min Injection Wstr Work Phone: [facility] 04-20-2024 14:15-0500 SaO2% (BldA) [Mass fraction] 98 % Injection Wstr Work Phone: [facility] 04-20-2024 14:15-0500 Systolic blood pressure 130 mm[Hg] Injection Wstr Work Phone: [facility] 03-22-2024 13:40-0500 Body mass index (BMI) [Ratio] 39.79 kg/m2 Injection Wstr Work Phone: [facility] 03-22-2024 13:40-0500 Body temperature 97.7 [degF] Injection Wstr Work Phone: [facility] 03-22-2024 13:40-0500 Body weight 89.36 kg Injection Wstr Work Phone: [facility] 03-22-2024 13:40-0500 Diastolic blood pressure 70 mm[Hg] Injection Wstr Work Phone: [facility] 03-22-2024 13:40-0500 Heart rate 60 /min Injection Wstr Work Phone: [facility] 03-22-2024 13:40-0500 Respiratory rate 12 /min Injection Wstr Work Phone: [facility] 03-22-2024 13:40-0500 SaO2% (BldA) [Mass fraction] 95 % Injection Wstr Work Phone: [facility] 03-22-2024 13:40-0500 Systolic blood pressure 110 mm[Hg] Injection Wstr Work Phone: [facility] 02-24-2024 14:19-0500 Body temperature 97.9 [degF] Treatment Wstr Work Phone: [facility] 02-24-2024 14:19-0500 Respiratory rate 16 /min Treatment Wstr Work Phone: [facility] 02-24-2024 14:19-0500 SaO2% (BldA) [Mass fraction] 95 % Treatment Wstr Work Phone: [facility] 02-23-2024 15:14-0500 Body mass index (BMI) [Ratio] 41.2 kg/m2 Luciana Florez MD Work Phone: [facility] 02-23-2024 15:14-0500 Body temperature 98.01 [degF] Luciana Florez MD Work Phone: [facility] 02-23-2024 15:14-0500 Body weight 92.53 kg Luciana Florez MD Work Phone: [facility] 02-23-2024 15:14-0500 Heart rate 56 /min Luciana Florez MD Work Phone: [facility] 02-23-2024 15:14-0500 Respiratory rate 16 /min Luciana Florez MD Work Phone: [facility] 02-23-2024 15:14-0500 SaO2% (BldA) [Mass fraction] 94 % Luciana Florez MD Work Phone: [facility] 02-12-2024 09:26-0500 Body mass index (BMI) [Ratio] 41.4 kg/m2 Luciana Florez MD Work Phone: [facility] 02-12-2024 09:26-0500 Body temperature 98.01 [degF] Luciana Florez MD Work Phone: [facility] 02-12-2024 09:26-0500 Body weight 92.99 kg Luciana Florez MD Work Phone: [facility] 02-12-2024 09:26-0500 Diastolic blood pressure 80 mm[Hg] Luciana Florez MD Work Phone: [facility] 02-12-2024 09:26-0500 Heart rate 63 /min Luciana Florez MD Work Phone: [facility] 02-12-2024 09:26-0500 Respiratory rate 16 /min Luciana Florez MD Work Phone: [facility] [facility] 09:26-0500 SaO2% (BldA) [Mass fraction] 95 % Luciana Florez MD Work Phone: [facility] 02-12-2024 09:26-0500 Systolic blood pressure 136 mm[Hg] Luciana Florez MD Work Phone: [facility] 01-27-2024 13:26-0500 Body mass index (BMI) [Ratio] 40.8 kg/m2 Damaso Alvarez MD Work Phone: [facility] 01-27-2024 13:26-0500 Body temperature 98.49 [degF] Damaso Alvarez MD Work Phone: [facility] 01-27-2024 13:26-0500 Body weight 91.63 kg Damaso Alvarez MD Work Phone: [facility] 01-27-2024 13:26-0500 Diastolic blood pressure 78 mm[Hg] Damaso Alvarez MD Work Phone: [facility] 01-27-2024 13:26-0500 Heart rate 64 /min Damaso Alvarez MD Work Phone: [facility] 01-27-2024 13:26-0500 SaO2% (BldA) [Mass fraction] 94 % Damaso Alvarez MD Work Phone: [facility] 01-27-2024 13:26-0500 Systolic blood pressure 118 mm[Hg] Damaso Alvarez MD Work Phone: [facility] 12-30-2023 14:07-0400 Body mass index (BMI) [Ratio] 41.2 kg/m2 Injection Wstr Work Phone: [facility] 12-30-2023 14:07-0400 Body temperature 97.7 [degF] Injection Wstr Work Phone: [facility] 12-30-2023 14:07-0400 Body weight 92.53 kg Injection Wstr Work Phone: [facility] 12-30-2023 14:07-0400 Diastolic blood pressure 70 mm[Hg] Injection Wstr Work Phone: [facility] 12-30-2023 14:07-0400 Heart rate 76 /min Injection Wstr Work Phone: [facility] 12-30-2023 14:07-0400 Respiratory rate 12 /min Injection Wstr Work Phone: [facility] 12-30-2023 14:07-0400 Systolic blood pressure 110 mm[Hg] Injection Wstr Work Phone: [facility] 12-02-2023 14:13-0400 Body temperature 96.91 [degF] Treatment Wstr Work Phone: [facility] 12-02-2023 14:13-0400 Diastolic blood pressure 78 mm[Hg] Treatment Wstr Work Phone: [facility] 12-02-2023 14:13-0400 Heart rate 59 /min Treatment Wstr Work Phone: [facility] 12-02-2023 14:13-0400 Respiratory rate 18 /min Treatment Wstr Work Phone: [facility] 12-02-2023 14:13-0400 SaO2% (BldA) [Mass fraction] 94 % Treatment Wstr Work Phone: [facility] 12-02-2023 14:13-0400 Systolic blood pressure 132 mm[Hg] Treatment Wstr Work Phone: [facility] 11-04-2023 15:25-0400 Body mass index (BMI) [Ratio] 41.2 kg/m2 Injection Wstr Work Phone: [facility] 11-04-2023 15:25-0400 Body temperature 98.4 [degF] Injection Wstr Work Phone: [facility] 11-04-2023 15:25-0400 Body weight 92.53 kg Injection Wstr Work Phone: [facility] 11-04-2023 15:25-0400 Diastolic blood pressure 83 mm[Hg] Injection Wstr Work Phone: [facility] 11-04-2023 15:25-0400 Heart rate 56 /min Injection Wstr Work Phone: [facility] 11-04-2023 15:25-0400 Systolic blood pressure 152 mm[Hg] Injection Wstr Work Phone: [facility] 10-07-2023 13:52-0400 Body mass index (BMI) [Ratio] 41.4 kg/m2 Damaso Alvarez MD Work Phone: [facility] 10-07-2023 13:52-0400 Body temperature 98.49 [degF] Damaso Alvarez MD Work Phone: [facility] 10-07-2023 13:52-0400 Body weight 92.99 kg Damaso Alvarez MD Work Phone: [facility] 10-07-2023 13:52-0400 Diastolic blood pressure 84 mm[Hg] Damaso Alvarez MD Work Phone: [facility] Comment on above: manual 10-07-2023 13:52-0400 Heart rate 55 /min Damaso Alvarez MD Work Phone: [facility] 10-07-2023 13:52-0400 SaO2% (BldA) [Mass fraction] 94 % Damaso Alvarez MD Work Phone: [facility] 10-07-2023 13:52-0400 Systolic blood pressure 148 mm[Hg] Damaso Alvarez MD Work Phone: [facility] Comment on above: manual 09-09-2023 14:17-0400 Body mass index (BMI) [Ratio] 41.51 kg/m2 Treatment Wstr Work Phone: [facility] 09-09-2023 14:17-0400 Body temperature 97.39 [degF] Treatment Wstr Work Phone: [facility] 09-09-2023 14:17-0400 Body weight 93.21 kg Treatment Wstr Work Phone: [facility] 09-09-2023 14:17-0400 Heart rate 57 /min Treatment Wstr Work Phone: [facility] 09-09-2023 14:17-0400 SaO2% (BldA) [Mass fraction] 97 % Treatment Wstr Work Phone: [facility] 08-12-2023 11:21-0400 Body mass index (BMI) [Ratio] 41.81 kg/m2 Injection Wstr Work Phone: [facility] 08-12-2023 11:21-0400 Body temperature 97.5 [degF] Injection Wstr Work Phone: [facility] 08-12-2023 11:21-0400 Body weight 93.89 kg Injection Wstr Work Phone: [facility] 08-12-2023 11:21-0400 Diastolic blood pressure 71 mm[Hg] Injection Wstr Work Phone: [facility] 08-12-2023 11:21-0400 Heart rate 66 /min Injection Wstr Work Phone: [facility] 08-12-2023 11:21-0400 Respiratory rate 12 /min Injection Wstr Work Phone: [facility] 08-12-2023 11:21-0400 SaO2% (BldA) [Mass fraction] 94 % Injection Wstr Work Phone: [facility] 08-12-2023 11:21-0400 Systolic blood pressure 149 mm[Hg] Injection Wstr Work Phone: [facility] 07-15-2023 11:35-0400 Body temperature 97.5 [degF] Injection Wstr Work Phone: [facility] 07-15-2023 11:35-0400 Diastolic blood pressure 80 mm[Hg] Injection Wstr Work Phone: [facility] 07-15-2023 11:35-0400 Heart rate 55 /min Injection Wstr Work Phone: [facility] 07-15-2023 11:35-0400 Respiratory rate 12 /min Injection Wstr Work Phone: [facility] 07-15-2023 11:35-0400 SaO2% (BldA) [Mass fraction] 97 % Injection Wstr Work Phone: [facility] 07-15-2023 11:35-0400 Systolic blood pressure 130 mm[Hg] Injection Wstr Work Phone: [facility] 05-20-2023 10:57-0500 Body temperature 97.7 [degF] Damaso Alvarez MD Work Phone: [facility] 05-20-2023 10:57-0500 Body weight 95.48 kg Damaso Alvarez MD Work Phone: [facility] 05-20-2023 10:57-0500 Diastolic blood pressure 74 mm[Hg] Damaso Alvarez MD Work Phone: [facility] 05-20-2023 10:57-0500 Heart rate 62 /min Damaso Alvarez MD Work Phone: [facility] 05-20-2023 10:57-0500 SaO2% (BldA) [Mass fraction] 97 % Damaso Alvarez MD Work Phone: [facility] 05-20-2023 10:57-0500 Systolic blood pressure 132 mm[Hg] Damaso Alvarez MD Work Phone: [facility] 02-23-2023 10:16-0500 Body temperature 98.2 [degF] Injection Wstr Work Phone: [facility] 02-23-2023 10:16-0500 Body weight 96.62 kg Injection Wstr Work Phone: [facility] 02-23-2023 10:16-0500 Diastolic blood pressure 86 mm[Hg] Injection Wstr Work Phone: [facility] 02-23-2023 10:16-0500 Heart rate 72 /min Injection Wstr Work Phone: [facility] 02-23-2023 10:16-0500 Systolic blood pressure 126 mm[Hg] Injection Wstr Work Phone: [facility] 01-26-2023 13:32-0500 Body temperature 98.2 [degF] Treatment Wstr Work Phone: [facility] 01-26-2023 13:32-0500 Body weight 96.16 kg Treatment Wstr Work Phone: [facility] 01-26-2023 13:32-0500 Diastolic blood pressure 98 mm[Hg] Treatment Wstr Work Phone: [facility] 01-26-2023 13:32-0500 Heart rate 74 /min Treatment Wstr Work Phone: [facility] 01-26-2023 13:32-0500 Systolic blood pressure 174 mm[Hg] Treatment Wstr Work Phone: [facility] 01-08-2023 09:58-0400 Body temperature 97.81 [degF] Damaso Alvarez MD Work Phone: [facility] 01-08-2023 09:58-0400 Body weight 97.07 kg Damaso Alvarez MD Work Phone: [facility] 01-08-2023 09:58-0400 Diastolic blood pressure 80 mm[Hg] Damaso Alvarez MD Work Phone: [facility] 01-08-2023 09:58-0400 Heart rate 61 /min Damaso Alvarez MD Work Phone: [facility] 01-08-2023 09:58-0400 Systolic blood pressure 120 mm[Hg] Damaso Alvarez MD Work Phone: [facility] 11-26-2022 10:46-0400 Body temperature 98.1 [degF] Injection Wstr Work Phone: [facility] 11-26-2022 10:46-0400 Body weight 94.8 kg Injection Wstr Work Phone: [facility] 11-26-2022 10:46-0400 Diastolic blood pressure 70 mm[Hg] Injection Wstr Work Phone: [facility] 11-26-2022 10:46-0400 Heart rate 104 /min Injection Wstr Work Phone: [facility] 11-26-2022 10:46-0400 Systolic blood pressure 130 mm[Hg] Injection Wstr Work Phone: [facility] 10-27-2022 11:44-0400 Body temperature 97.81 [degF] Injection Wstr Work Phone: [facility] 10-27-2022 11:44-0400 Body weight 96.16 kg Injection Wstr Work Phone: [facility] 10-27-2022 11:44-0400 Diastolic blood pressure 80 mm[Hg] Injection Wstr Work Phone: [facility] 10-27-2022 11:44-0400 Heart rate 60 /min Injection Wstr Work Phone: [facility] 10-27-2022 11:44-0400 Systolic blood pressure 140 mm[Hg] Injection Wstr Work Phone: [facility] 10-09-2022 15:39-0400 Body height 149.86 cm Dot Allen Work Phone: [facility] [address] Work Phone: 10-09-2022 15:39-0400 Body mass index (BMI) [Ratio] 42.52 kg/m2 Dot Allen Work Phone: EV-Yfyarhnbss-Vkqcms [address] Work Phone: 10-09-2022 15:39-0400 Body surface area Derived from formula 1.88 m2 Dot Allen Work Phone: VU-Bmoqldvvvg-Qnwsdv [address] Work Phone: 10-09-2022 15:39-0400 Body weight 95.48 kg Dot Allen Work Phone: SX-Ftqfscjjxo-Gkjxyh [address] Work Phone: 10-09-2022 15:39-0400 Diastolic blood pressure 62 mm[Hg] Dot Allen Work Phone: FK-Ufjeomlkzs-Ywhjgp [address] Work Phone: 10-09-2022 15:39-0400 Heart rate 81 /min Dot Allen Work Phone: OB-Lrbalgyvnz-Vutmzd [address] Work Phone: 10-09-2022 15:39-0400 SaO2% (BldA) [Mass fraction] 96 % Dot Allen Work Phone: MZ-Uxmbueuwlg-Odcipr [address] Work Phone: 10-09-2022 15:39-0400 Systolic blood pressure 132 mm[Hg] Dot Allen Work Phone: KD-Xjttnpoijy-Ksgipw [address] Work Phone: 09-25-2022 11:41-0400 Body height 153.67 cm [facility] Work Phone: 09-25-2022 11:41-0400 Body mass index (BMI) [Ratio] 40.53 kg/m2 [facility] Work Phone: 09-25-2022 11:41-0400 Body surface area Derived from formula 1.92 m2 [facility] Work Phone: 09-25-2022 11:41-0400 Body temperature 97 [degF] [facility] Work Phone: 09-25-2022 11:41-0400 Body weight 95.71 kg [facility] Work Phone: 09-25-2022 11:41-0400 Diastolic blood pressure 72 mm[Hg] [facility] Work Phone: Comment on above: Patient Position: Sitting; Cuff Location : Left Arm; Cuff Size: Standard 09-25-2022 11:41-0400 Heart rate 55 /min [facility] Work Phone: Comment on above: Pattern: Regular 09-25-2022 11:41-0400 Respiratory rate 16 /min [facility] Work Phone: Comment on above: Pattern: Unlabored 09-25-2022 11:41-0400 SaO2% (BldA) [Mass fraction] 96 % [facility] Work Phone: Comment on above: Room air 09-25-2022 11:41-0400 Systolic blood pressure 124 mm[Hg] [facility] Work Phone: Comment on above: Patient Position: Sitting; Cuff Location : Left Arm; Cuff Size: Standard 09-25-2022 09:55-0400 Body temperature 98.01 [degF] Injection Wstr Work Phone: [facility] 09-25-2022 09:55-0400 Body weight 95.71 kg Injection Wstr Work Phone: [facility] 09-25-2022 09:55-0400 Diastolic blood pressure 60 mm[Hg] Injection Wstr Work Phone: [facility] 09-25-2022 09:55-0400 Heart rate 60 /min Injection Wstr Work Phone: [facility] 09-25-2022 09:55-0400 Systolic blood pressure 90 mm[Hg] Injection Wstr Work Phone: [facility] 08-27-2022 10:17-0400 Body temperature 98.2 [degF] Injection Wstr Work Phone: [facility] 08-27-2022 10:17-0400 Body weight 95.25 kg Injection Wstr Work Phone: [facility] 08-27-2022 10:17-0400 Diastolic blood pressure 80 mm[Hg] Injection Wstr Work Phone: [facility] 08-27-2022 10:17-0400 Heart rate 60 /min Injection Wstr Work Phone: [facility] 08-27-2022 10:17-0400 Systolic blood pressure 140 mm[Hg] Injection Wstr Work Phone: [facility] 07-30-2022 09:50-0400 Body temperature 97.59 [degF] Injection Wstr Work Phone: [facility] 07-30-2022 09:50-0400 Body weight 95.25 kg Injection Wstr Work Phone: [facility] 07-30-2022 09:50-0400 Diastolic blood pressure 66 mm[Hg] Injection Wstr Work Phone: [facility] 07-30-2022 09:50-0400 Heart rate 61 /min Injection Wstr Work Phone: [facility] 07-30-2022 09:50-0400 Systolic blood pressure 118 mm[Hg] Injection Wstr Work Phone: [facility] 07-02-2022 11:20-0400 Body temperature 97.7 [degF] Injection Wstr Work Phone: [facility] 07-02-2022 11:20-0400 Diastolic blood pressure 70 mm[Hg] Injection Wstr Work Phone: [facility] 07-02-2022 11:20-0400 Heart rate 76 /min Injection Wstr Work Phone: [facility] 07-02-2022 11:20-0400 Systolic blood pressure 130 mm[Hg] Injection Wstr Work Phone: [facility] 06-04-2022 09:36-0400 Body temperature 97.5 [degF] Injection Wstr Work Phone: [facility] 06-04-2022 09:36-0400 Body weight 96.62 kg Injection Wstr Work Phone: [facility] 06-04-2022 09:36-0400 Diastolic blood pressure 70 mm[Hg] Injection Wstr Work Phone: [facility] 06-04-2022 09:36-0400 Heart rate 60 /min Injection Wstr Work Phone: [facility] 06-04-2022 09:36-0400 Systolic blood pressure 132 mm[Hg] Injection Wstr Work Phone: [facility] 05-21-2022 14:39-0500 Body height 150.7 cm Patricia Buck MD Work Phone: [facility] 05-21-2022 14:39-0500 Body temperature 98.49 [degF] Patricia Buck MD Work Phone: [facility] 05-21-2022 14:39-0500 Body weight 95.71 kg Patricia Buck MD Work Phone: [facility] 05-21-2022 14:39-0500 Diastolic blood pressure 72 mm[Hg] Patricia Buck MD Work Phone: [facility] 05-21-2022 14:39-0500 Heart rate 58 /min Patricia Buck MD Work Phone: [facility] 05-21-2022 14:39-0500 SaO2% (BldA) [Mass fraction] 96 % Patricia Buck MD Work Phone: [facility] 05-21-2022 14:39-0500 Systolic blood pressure 126 mm[Hg] Patricia Buck MD Work Phone: [facility] 05-07-2022 12:04-0500 Body temperature 98.4 [degF] Injection Wstr Work Phone: [facility] 05-07-2022 12:04-0500 Diastolic blood pressure 72 mm[Hg] Injection Wstr Work Phone: [facility] 05-07-2022 12:04-0500 Heart rate 60 /min Injection Wstr Work Phone: [facility] 05-07-2022 12:04-0500 Systolic blood pressure 110 mm[Hg] Injection Wstr Work Phone: [facility] 04-09-2022 11:15-0500 Diastolic blood pressure 84 mm[Hg] Injection Wstr Work Phone: [facility] 04-09-2022 11:15-0500 Systolic blood pressure 120 mm[Hg] Injection Wstr Work Phone: [facility] 04-09-2022 11:11-0500 Body weight 93.89 kg Injection Wstr Work Phone: [facility] 03-21-2022 15:52-0500 Diastolic blood pressure 72 mm[Hg] Keith Cao MD Work Phone: [facility] 03-21-2022 15:52-0500 Heart rate 68 /min Keith Cao MD Work Phone: [facility] 03-21-2022 15:52-0500 Systolic blood pressure 130 mm[Hg] Keith Cao MD Work Phone: [facility] 03-12-2022 12:21-0500 Body weight 93.89 kg Injection Wstr Work Phone: [facility] 03-12-2022 12:07-0500 Body temperature 98.1 [degF] Injection Wstr Work Phone: [facility] 03-12-2022 12:07-0500 Diastolic blood pressure 70 mm[Hg] Injection Wstr Work Phone: [facility] 03-12-2022 12:07-0500 Heart rate 76 /min Injection Wstr Work Phone: [facility] 03-12-2022 12:07-0500 Systolic blood pressure 130 mm[Hg] Injection Wstr Work Phone: [facility] 02-27-2022 11:40-0500 Body height 152.4 cm Tatum Santana MD Work Phone: [facility] 02-27-2022 11:40-0500 Body weight 94.35 kg Tatum Santana MD Work Phone: [facility] 02-27-2022 11:40-0500 Diastolic blood pressure 66 mm[Hg] Tatum Santana MD Work Phone: [facility] 02-27-2022 11:40-0500 Heart rate 64 /min Tatum Santana MD Work Phone: [facility] 02-27-2022 11:40-0500 Respiratory rate 16 /min Tatum Santana MD Work Phone: [facility] 02-27-2022 11:40-0500 Systolic blood pressure 128 mm[Hg] Tatum Santana MD Work Phone: [facility] 02-26-2022 14:14-0500 Body temperature 98.91 [degF] Stephania Hayes MD Work Phone: [facility] 02-26-2022 14:14-0500 Body weight 95.03 kg Stephania Hayes MD Work Phone: [facility] 02-26-2022 14:14-0500 Diastolic blood pressure 78 mm[Hg] Stephania Hayes MD Work Phone: [facility] 02-26-2022 14:14-0500 Heart rate 60 /min Stephania Hayes MD Work Phone: [facility] 02-26-2022 14:14-0500 SaO2% (BldA) [Mass fraction] 96 % Stephania Hayes MD Work Phone: [facility] 02-26-2022 14:14-0500 Systolic blood pressure 124 mm[Hg] Stephania Hayes MD Work Phone: [facility] 02-17-2022 11:10-0500 Diastolic blood pressure 72 mm[Hg] Keith Cao MD Work Phone: [facility] 02-17-2022 11:10-0500 Heart rate 68 /min Keith Cao MD Work Phone: [facility] 02-17-2022 11:10-0500 Systolic blood pressure 130 mm[Hg] Keith Cao MD Work Phone: [facility] 02-12-2022 10:47-0500 Body temperature 97.9 [degF] Injection Wstr Work Phone: [facility] 02-12-2022 10:47-0500 Body weight 94.35 kg Injection Wstr Work Phone: [facility] 02-12-2022 10:47-0500 Diastolic blood pressure 72 mm[Hg] Injection Wstr Work Phone: [facility] 02-12-2022 10:47-0500 Heart rate 68 /min Injection Wstr Work Phone: [facility] 02-12-2022 10:47-0500 Systolic blood pressure 130 mm[Hg] Injection Wstr Work Phone: [facility] 02-10-2022 11:53-0500 Body height 153.67 cm [facility] Work Phone: 02-10-2022 11:53-0500 Body mass index (BMI) [Ratio] 39.98 kg/m2 [facility] Work Phone: 02-10-2022 11:53-0500 Body surface area Derived from formula 1.91 m2 [facility]; [facility] Work Phone: 02-10-2022 11:53-0500 Body temperature 96.9 [degF] [facility]; [facility] Work Phone: 02-10-2022 11:53-0500 Body weight 94.41 kg [facility]; [facility] Work Phone: 02-10-2022 11:53-0500 Diastolic blood pressure 80 mm[Hg] [facility] Work Phone: Comment on above: Patient Position: Sitting; Cuff Location : Left Arm; Cuff Size: Standard 02-10-2022 11:53-0500 Heart rate 60 /min [facility]; [facility] Work Phone: Comment on above: Pattern: Regular 02-10-2022 11:53-0500 Respiratory rate 16 /min Sy Jacobson [facility]; [facility] Work Phone: Comment on above: Pattern: Unlabored 02-10-2022 11:53-0500 SaO2% (BldA) [Mass fraction] 94 % Sy Jacobson [facility]; [facility] Work Phone: Comment on above: Room air 02-10-2022 11:53-0500 Systolic blood pressure 130 mm[Hg] Sy Jacobson [facility]; [facility] Work Phone: Comment on above: Patient Position: Sitting; Cuff Location : Left Arm; Cuff Size: Standard 01-08-2022 10:29-0400 Body temperature 97.39 [degF] Injection Wstr Work Phone: [facility] 01-08-2022 10:29-0400 Body weight 94.35 kg Injection Wstr Work Phone: [facility] 01-08-2022 10:29-0400 Diastolic blood pressure 70 mm[Hg] Injection Wstr Work Phone: [facility] 01-08-2022 10:29-0400 Heart rate 60 /min Injection Wstr Work Phone: [facility] 01-08-2022 10:29-0400 Systolic blood pressure 130 mm[Hg] Injection Wstr Work Phone: [facility] 12-18-2021 11:30-0400 Body height 153.67 cm [facility]; [facility] Work Phone: 12-18-2021 11:30-0400 Body mass index (BMI) [Ratio] 39.57 kg/m2 [facility]; [facility] Work Phone: 12-18-2021 11:30-0400 Body surface area Derived from formula 1.9 m2 [facility]; [facility] Work Phone: 12-18-2021 11:30-0400 Body temperature 97.4 [degF] Denisa Cordova CMA [facility]; [facility] Work Phone: Comment on above: Method: Infrared 12-18-2021 11:30-0400 Body weight 93.44 kg Denisa Cordova CMA [facility]; [facility] Work Phone: 12-18-2021 11:30-0400 Diastolic blood pressure 72 mm[Hg] Denisa Cordova CMA [facility]; [facility] Work Phone: Comment on above: Patient Position: Sitting; Cuff Location : Left Arm; Cuff Size: Standard 12-18-2021 11:30-0400 Heart rate 60 /min Denisa Cordova CMA [facility]; [facility] Work Phone: Comment on above: Pattern: Regular 12-18-2021 11:30-0400 Respiratory rate 16 /min Denisa Cordova CMA [facility]; [facility] Work Phone: Comment on above: Pattern: Unlabored 12-18-2021 11:30-0400 SaO2% (BldA) [Mass fraction] 97 % Denisa Cordova [employer] [facility]; [facility] Work Phone: Comment on above: Room air 12-18-2021 11:30-0400 Systolic blood pressure 130 mm[Hg] Denisa Cordova CMA [facility]; [facility] Work Phone: Comment on above: Patient Position: Sitting; Cuff Location : Left Arm; Cuff Size: Standard 10-08-2021 15:01-0400 Body temperature 97.7 [degF] Injection Wstr Work Phone: [facility] 10-08-2021 15:01-0400 Body weight 94.35 kg Injection Wstr Work Phone: [facility] 10-08-2021 15:01-0400 Diastolic blood pressure 80 mm[Hg] Injection Wstr Work Phone: [facility] 10-08-2021 15:01-0400 Heart rate 72 /min Injection Wstr Work Phone: [facility] 10-08-2021 15:01-0400 Systolic blood pressure 130 mm[Hg] Injection Wstr Work Phone: [facility] 09-30-2021 13:10-0400 Body height 149.[address] Dot Allen Work Phone: [facility] Work Phone: 09-30-2021 13:10-0400 Body mass index (BMI) [Ratio] 41.3 kg/m2 Dr. Dot Allen Work Phone: [facility] Work Phone: 09-30-2021 13:10-0400 Body weight 92.[address] Dot Allen Work Phone: [facility] Work Phone: 09-30-2021 13:10-0400 Diastolic blood pressure 74 mm[Hg] Dr. Dot Allen Work Phone: [facility] Work Phone: 09-30-2021 13:10-0400 Heart rate 64 /min Dr. Dot Allen Work Phone: [facility] Work Phone: 09-30-2021 13:10-0400 Respiratory rate 16 /min Dr. Dot Allen Work Phone: [facility] Work Phone: 09-30-2021 13:10-0400 Systolic blood pressure 140 mm[Hg] Dr. Dot Allen Work Phone: [facility] Work Phone: 09-10-2021 09:39-0400 Body temperature 98.91 [degF] Stephania Hayes MD Work Phone: [facility] 09-10-2021 09:39-0400 Body weight 93.44 kg Stephania Hayes MD Work Phone: [facility] 09-10-2021 09:39-0400 Diastolic blood pressure 74 mm[Hg] Stephania Hayes MD Work Phone: [facility] 09-10-2021 09:39-0400 Heart rate 56 /min Stephania Hayes MD Work Phone: [facility] 09-10-2021 09:39-0400 SaO2% (BldA) [Mass fraction] 94 % Stephania Hayes MD Work Phone: [facility] 09-10-2021 09:39-0400 Systolic blood pressure 128 mm[Hg] Stephania Hayes MD Work Phone: [facility] 08-13-2021 15:45-0400 Body temperature 98.4 [degF] Injection Wstr Work Phone: [facility] 08-13-2021 15:45-0400 Body weight 92.99 kg Injection Wstr Work Phone: [facility] 08-13-2021 15:45-0400 Diastolic blood pressure 72 mm[Hg] Injection Wstr Work Phone: [facility] 08-13-2021 15:45-0400 Heart rate 65 /min Injection Wstr Work Phone: [facility] 08-13-2021 15:45-0400 Systolic blood pressure 118 mm[Hg] Injection Wstr Work Phone: [facility] 07-16-2021 14:58-0400 Body temperature 97.59 [degF] Injection Wstr Work Phone: [facility] 07-16-2021 14:58-0400 Body weight 93.44 kg Injection Wstr Work Phone: [facility] 07-16-2021 14:58-0400 Diastolic blood pressure 70 mm[Hg] Injection Wstr Work Phone: [facility] 07-16-2021 14:58-0400 Heart rate 62 /min Injection Wstr Work Phone: [facility] 07-16-2021 14:58-0400 Systolic blood pressure 157 mm[Hg] Injection Wstr Work Phone: [facility] 06-18-2021 09:38-0400 Body temperature 97.9 [degF] Stephania Hayes MD Work Phone: [facility] 06-18-2021 09:38-0400 Body weight 93.67 kg Stephania Hayes MD Work Phone: [facility] 06-18-2021 09:38-0400 Diastolic blood pressure 60 mm[Hg] Stephania Hayes MD Work Phone: [facility] 06-18-2021 09:38-0400 Heart rate 65 /min Stephania Hayes MD Work Phone: [facility] 06-18-2021 09:38-0400 Systolic blood pressure 134 mm[Hg] Stephania Hayes MD Work Phone: [facility] 10-05-2020 10:41-0400 Body height 153.67 cm Anushka Slarb [employer] [facility]; [facility] Work Phone: Comment on above: sara Martino yearly 10-05-2020 10:41-0400 Body mass index (BMI) [Ratio] 39.76 kg/m2 Anushka Slarb [employer] [facility]; [facility] Work Phone: Comment on above: sara Martino yearly 10-05-2020 10:41-0400 Body surface area Derived from formula 1.91 m2 Anushka Slarb [employer] [facility]; [facility] Work Phone: Comment on above: sara Martino yearly 10-05-2020 10:41-0400 Body temperature 97.1 [degF] Anushka Andrésrb [employer] [facility]; [facility] Work Phone: Comment on above: sara Martino yearly 10-05-2020 10:41-0400 Body weight 93.9 kg Anushka Slarb [employer] [facility]; [facility] Work Phone: Comment on above: sara Martino yearly 10-05-2020 10:41-0400 Diastolic blood pressure 80 mm[Hg] Anushka Slarb [employer] [facility]; [facility] Work Phone: Comment on above: Patient Position: Sitting; Cuff Location : Left Arm; Cuff Size: Standard hearing Giuseppe Martino yearly 10-05-2020 10:41-0400 Heart rate 61 /min Anushka Andrésrb [employer] [facility]; [facility] Work Phone: Comment on above: Pattern: Regular hearing Giuseppe Martino yearly 10-05-2020 10:41-0400 Respiratory rate 16 /min Anushka Andrésrb [employer] [facility]; [facility] Work Phone: Comment on above: Pattern: Unlabored hearing Giuseppe Martino yearly 10-05-2020 10:41-0400 SaO2% (BldA) [Mass fraction] 96 % Anushka Andrésrb [employer] [facility]; [facility] Work Phone: Comment on above: Room air hearing Giuseppe Martino yearly 10-05-2020 10:41-0400 Systolic blood pressure 122 mm[Hg] Anushka Andrésrb [employer] [facility]; [facility] Work Phone: Comment on above: Patient Position: Sitting; Cuff Location : Left Arm; Cuff Size: Standard hearing Giuseppe Martino yearly 03-26-2020 12:28-0500 BMI (Body Mass Index) 35.54 kg/m2 Denisa Gravius [facility]; [facility] Work Phone: 03-26-2020 12:28-0500 Body Temperature 97.1 [degF] Denisa Cordova [facility]; [facility] Work Phone: Comment on above: Method: Infrared 03-26-2020 12:28-0500 Body weight 83.93 kg Denisa Cordova [facility]; [facility] Work Phone: 03-26-2020 12:28-0500 BP Diastolic 78 mm[Hg] Denisa Gravius [facility]; [facility] Work Phone: Comment on above: Patient Position: Sitting; Cuff Location : Left Arm; Cuff Size: Standard 03-26-2020 12:28-0500 BP Systolic 136 mm[Hg] Denisa Cordova [facility]; [facility] Work Phone: Comment on above: Patient Position: Sitting; Cuff Location : Left Arm; Cuff Size: Standard 03-26-2020 12:28-0500 BSA (Body Surface Area) 1.82 m2 Denisa Cordova [facility]; [facility] Work Phone: 03-26-2020 12:28-0500 Height 153.67 cm Denisa Cordova [facility]; [facility] Work Phone: 03-26-2020 12:28-0500 Pulse (Heart Rate) 69 /min Denisa Cordova CMA [facility]; [facility] Work Phone: Comment on above: Pattern: Regular 03-26-2020 12:28-0500 Pulse Oximetry 97 % Dot Allen [facility]; [facility] Work Phone: Comment on above: Room air 03-26-2020 12:28-0500 Respiratory Rate 18 /min Denisa Cordova [facility]; [facility] Work Phone: Comment on above: Pattern: Unlabored 03-26-2020 12:28-0500 SaO2% (BldA) [Mass fraction] 97 % Denisa Cordova [facility]; [facility] Work Phone: Comment on above: Room air 12-13-2019 12:10-0400 BMI (Body Mass Index) 35.54 kg/m2 Eloy Lee LPN [facility] Work Phone: 12-13-2019 12:10-0400 Body weight 83.93 kg Eloy Lee LPN [facility] Work Phone: 12-13-2019 12:10-0400 BSA (Body Surface Area) 1.82 m2 Eloy Lee [employer] [facility] Work Phone: 12-13-2019 12:10-0400 Height 153.67 cm Eloy Lee [facility] Work Phone: 06-15-2019 13:04-0400 BMI (Body Mass Index) 35.54 kg/m2 Shanta Patel LPN [facility] Work Phone: Comment on above: telemed visit. Vitals reported by pt. 06-15-2019 13:04-0400 Body Temperature 98.6 [degF] Shanta Patel LPN [facility] Work Phone: Comment on above: Method: Temporal telemed visit. Vital s reported by pt. 06-15-2019 13:04-0400 Body weight 83.93 kg Shanta Patel [facility] Work Phone: Comment on above: telemed visit. Vitals reported by pt. 06-15-2019 13:04-0400 BSA (Body Surface Area) 1.82 m2 Shanta Patel [employer] [facility] Work Phone: Comment on above: telemed visit. Vitals reported by pt. 06-15-2019 13:04-0400 Height 153.67 cm Shanta Patel [employer] [facility] Work Phone: Comment on above: telemed visit. Vitals reported by pt. 12-29-2018 08:15-0400 BMI (Body Mass Index) 36.89 kg/m2 Eloy Jesus HERNADEZ [facility] Work Phone: 12-29-2018 08:15-0400 BMI (Body Mass Index) 37.46 kg/m2 Dot Allen [facility] Work Phone: 12-29-2018 08:15-0400 Body Temperature 97.1 [degF] Eloy Lee LPN [facility] Work Phone: Comment on above: Method: Temporal 12-29-2018 08:15-0400 Body weight 87.11 kg Eloy Lee LPN [facility] Work Phone: 12-29-2018 08:15-0400 Body weight 88.47 kg Dot Allen [facility] Work Phone: 12-29-2018 08:15-0400 BP Diastolic 68 mm[Hg] Eloy Lee LPN [facility] Work Phone: Comment on above: Patient Position: Sitting; Cuff Location : Left Arm; Cuff Size: Standard 12-29-2018 08:15-0400 BP Systolic 120 mm[Hg] Eloy Lee LPN [facility] Work Phone: Comment on above: Patient Position: Sitting; Cuff Location : Left Arm; Cuff Size: Standard 12-29-2018 08:15-0400 BSA (Body Surface Area) 1.85 m2 Eloy Lee LPN [facility] Work Phone: 12-29-2018 08:15-0400 BSA (Body Surface Area) 1.86 m2 Dot Allen [facility] Work Phone: 12-29-2018 08:15-0400 Height 153.67 cm Eloy Lee LPN [facility] Work Phone: 12-29-2018 08:15-0400 Pulse (Heart Rate) 62 /min Eloy Lee LPN [facility] Work Phone: Comment on above: Pattern: Regular 12-29-2018 08:15-0400 Pulse Oximetry 97 % Dot Allen [facility] Work Phone: Comment on above: Room air 12-29-2018 08:15-0400 Respiratory Rate 16 /min Eloy Lee LPN [facility] Work Phone: Comment on above: Pattern: Unlabored 12-29-2018 08:15-0400 SaO2% (BldA) [Mass fraction] 97 % Eloy Lee LPN [facility]; [facility] Work Phone: Comment on above: Room air 12-21-2018 10:04-0400 BMI (Body Mass Index) 38.03 kg/m2 Dot Allen [facility] Work Phone: 12-21-2018 10:04-0400 BMI (Body Mass Index) 37.46 kg/m2 Eloy Lee LPN [facility] Work Phone: 12-21-2018 10:04-0400 Body Temperature 97.5 [degF] Eloy Lee LPN [facility] Work Phone: Comment on above: Method: Temporal 12-21-2018 10:04-0400 Body weight 89.81 kg Dot Allen [facility] Work Phone: 12-21-2018 10:04-0400 Body weight 88.47 kg Eloy Lee LPN [facility] Work Phone: 12-21-2018 10:04-0400 BP Diastolic 82 mm[Hg] Eloy Lee LPN [facility] Work Phone: Comment on above: Patient Position: Sitting; Cuff Location : Left Arm; Cuff Size: Standard 12-21-2018 10:04-0400 BP Systolic 152 mm[Hg] Eloy Lee LPN [facility] Work Phone: Comment on above: Patient Position: Sitting; Cuff Location : Left Arm; Cuff Size: Standard 12-21-2018 10:04-0400 BSA (Body Surface Area) 1.87 m2 Dot Eligio [facility] Work Phone: 12-21-2018 10:04-0400 BSA (Body Surface Area) 1.86 m2 Eloy Lee LPN [facility] Work Phone: 12-21-2018 10:04-0400 Height 153.67 cm Eloy Lee LPN [facility] Work Phone: 12-21-2018 10:04-0400 Pulse (Heart Rate) 74 /min Eloy Lee LPN [facility] Work Phone: Comment on above: Pattern: Regular 12-21-2018 10:04-0400 Pulse Oximetry 95 % Dot Eligio [facility] Work Phone: Comment on above: Room air 12-21-2018 10:04-0400 Respiratory Rate 16 /min Eloy Lee LPN [facility] Work Phone: Comment on above: Pattern: Unlabored 12-21-2018 10:04-0400 SaO2% (BldA) [Mass fraction] 95 % Eloy Lee LPN [facility]; [facility] Work Phone: Comment on above: Room air 11-23-2018 10:58-0400 BMI (Body Mass Index) 38.03 kg/m2 Julita Henry Von WILLETT [facility] Work Phone: 11-23-2018 10:58-0400 Body Temperature 97.6 [degF] Julita Henry Von RN [facility] Work Phone: Comment on above: Method: Temporal 11-23-2018 10:58-0400 Body weight 89.81 kg Julitaherson Longoria RN [facility] Work Phone: 11-23-2018 10:58-0400 BP Diastolic 78 mm[Hg] Julita Henry Von RN [facility] Work Phone: Comment on above: Patient Position: Sitting; Cuff Location : Left Arm; Cuff Size: Standard 11-23-2018 10:58-0400 BP Systolic 132 mm[Hg] Julita Henry Von RN [facility] Work Phone: Comment on above: Patient Position: Sitting; Cuff Location : Left Arm; Cuff Size: Standard 11-23-2018 10:58-0400 BSA (Body Surface Area) 1.87 m2 Julita Henry Von WILLETT [facility] Work Phone: 11-23-2018 10:58-0400 Height 153.67 cm Julitaherson Longoria RN [facility] Work Phone: 11-23-2018 10:58-0400 Pulse (Heart Rate) 75 /min Julita Longoria RN [facility] Work Phone: Comment on above: Pattern: Regular 11-23-2018 10:58-0400 Pulse Oximetry 91 % Dot Grubbson [facility] Work Phone: Comment on above: Room air 11-23-2018 10:58-0400 Respiratory Rate 17 /min Julita Longoria RN [facility] Work Phone: Comment on above: Pattern: Unlabored 11-23-2018 10:58-0400 SaO2% (BldA) [Mass fraction] 91 % Julita Longoria RN [facility]; [facility] Work Phone: Comment on above: Room air 11-08-2018 15:24-0400 BMI (Body Mass Index) 38.42 kg/m2 Eloy Lee MARICARMEN [facility] Work Phone: 11-08-2018 15:24-0400 Body Temperature 97.2 [degF] Eloy Lee [employer] [facility] Work Phone: Comment on above: Method: Temporal 11-08-2018 15:24-0400 Body weight 90.73 kg Eloy Jesus [employer] [facility] Work Phone: 11-08-2018 15:24-0400 BP Diastolic 74 mm[Hg] Eloy Lee [employer] [facility] Work Phone: Comment on above: Patient Position: Sitting; Cuff Location : Left Arm; Cuff Size: Standard 11-08-2018 15:24-0400 BP Systolic 142 mm[Hg] Eloy Lee [employer] [facility] Work Phone: Comment on above: Patient Position: Sitting; Cuff Location : Left Arm; Cuff Size: Standard 11-08-2018 15:24-0400 BSA (Body Surface Area) 1.88 m2 Eloy Jesus [employer] [facility] Work Phone: 11-08-2018 15:24-0400 Height 153.67 cm Eloy Lee [employer] [facility] Work Phone: 11-08-2018 15:24-0400 Pulse (Heart Rate) 65 /min Eloy Lee MARICARMEN [facility] Work Phone: Comment on above: Pattern: Regular 11-08-2018 15:24-0400 Pulse Oximetry 96 % Dot Allen [facility] Work Phone: Comment on above: Room air 11-08-2018 15:24-0400 Respiratory Rate 16 /min Eloy Lee [employer] [facility] Work Phone: Comment on above: Pattern: Unlabored 11-08-2018 15:24-0400 SaO2% (BldA) [Mass fraction] 96 % Eloy Lee [facility]; [facility] Work Phone: Comment on above: Room air 07-05-2018 08:57-0400 BMI (Body Mass Index) 40.92 kg/m2 Denisa Gravius [facility] Work Phone: 07-05-2018 08:57-0400 Body Temperature 96.7 [degF] Denisa Cordova CMA [facility] Work Phone: Comment on above: Method: Axillary 07-05-2018 08:57-0400 Body weight 96.63 kg Denisa Cordova CMA [facility] Work Phone: 07-05-2018 08:57-0400 BP Diastolic 98 mm[Hg] Denisa Cordova CMA [facility] Work Phone: Comment on above: Patient Position: Sitting; Cuff Location : Left Arm; Cuff Size: Standard 07-05-2018 08:57-0400 BP Systolic 141 mm[Hg] Denisa Cordova CMA [facility] Work Phone: Comment on above: Patient Position: Sitting; Cuff Location : Left Arm; Cuff Size: Standard 07-05-2018 08:57-0400 BSA (Body Surface Area) 1.93 m2 Denisa Cordova CMA [facility] Work Phone: 07-05-2018 08:57-0400 Height 153.67 cm Denisa Cordova CMA [facility] Work Phone: 07-05-2018 08:57-0400 Pulse (Heart Rate) 86 /min Denisa Cordova CMA [facility] Work Phone: Comment on above: Pattern: Regular 07-05-2018 08:57-0400 Pulse Oximetry 94 % Dot Allen [facility] Work Phone: Comment on above: Room air 07-05-2018 08:57-0400 Respiratory Rate 16 /min Denisa Cordova CMA [facility] Work Phone: Comment on above: Pattern: Unlabored 07-05-2018 08:57-0400 SaO2% (BldA) [Mass fraction] 94 % Denisa Cordova CMA [facility]; [facility] Work Phone: Comment on above: Room air 07-05-2018 08:57-0400 Weight 96.63 kg Dot Allen [facility] Work Phone: 07-01-2018 09:26-0400 BMI (Body Mass Index) 40.92 kg/m2 Eloy Lee LPN [facility] Work Phone: 07-01-2018 09:26-0400 Body Temperature 97.9 [degF] Eloy Lee LPN [facility] Work Phone: Comment on above: Method: Temporal 07-01-2018 09:26-0400 Body weight 96.63 kg Eloy Lee LPN [facility] Work Phone: 07-01-2018 09:26-0400 BP Diastolic 80 mm[Hg] Eloy Lee LPN [facility] Work Phone: Comment on above: Patient Position: Sitting; Cuff Location : Left Arm; Cuff Size: Standard 07-01-2018 09:26-0400 BP Systolic 138 mm[Hg] Eloy Lee LPN [facility] Work Phone: Comment on above: Patient Position: Sitting; Cuff Location : Left Arm; Cuff Size: Standard 07-01-2018 09:26-0400 BSA (Body Surface Area) 1.93 m2 Eloy Lee LPN [facility] Work Phone: 07-01-2018 09:26-0400 Height 153.67 cm Eloy Lee LPN [facility] Work Phone: 07-01-2018 09:26-0400 Pulse (Heart Rate) 70 /min Eloy Lee LPN [facility] Work Phone: Comment on above: Pattern: Regular 07-01-2018 09:26-0400 Pulse Oximetry 94 % Dot Allen [facility] Work Phone: Comment on above: Room air 07-01-2018 09:26-0400 Respiratory Rate 16 /min Eloy Lee LPN [facility] Work Phone: Comment on above: Pattern: Unlabored 07-01-2018 09:26-0400 SaO2% (BldA) [Mass fraction] 94 % Eloy Lee LPN [facility]; [facility] Work Phone: Comment on above: Room air 07-01-2018 09:26-0400 Weight 96.63 kg Dot Allen [facility] Work Phone: 10-02-2017 09:33-0400 BMI (Body Mass Index) 40.77 kg/m2 Niharika Leon RN [facility] Work Phone: Comment on above: hearing wnlDR. Denbo and had a glaucoma test done 10-02-2017 09:33-0400 Body weight 96.28 kg Niharika Leon RN [facility] Work Phone: Comment on above: hearing wnlDR. Denbo and had a glaucoma test done 10-02-2017 09:33-0400 BP Diastolic 82 mm[Hg] Niharika Leon RN [facility] Work Phone: Comment on above: Patient Position: Sitting; Cuff Location : Left Arm; Cuff Size: Large hearing wnlDR. Denbo and had a glaucoma test done 10-02-2017 09:33-0400 BP Systolic 148 mm[Hg] Niharika Leon RN [facility] Work Phone: Comment on above: Patient Position: Sitting; Cuff Location : Left Arm; Cuff Size: Large hearing wnlDR. Denbo and had a glaucoma test done 10-02-2017 09:33-0400 BSA (Body Surface Area) 1.93 m2 Niharika Leon RN [facility] Work Phone: Comment on above: hearing wnlDR. Denbo and had a glaucoma test done 10-02-2017 09:33-0400 Height 153.67 cm Niharika Leon RN [facility] Work Phone: Comment on above: hearing wnlDR. Denbo and had a glaucoma test done 10-02-2017 09:33-0400 Pulse (Heart Rate) 64 /min Niharika Leon RN [facility] Work Phone: Comment on above: Pattern: Regular hearing wnlDR. Denbo and had a glaucoma test done 10-02-2017 09:33-0400 Pulse Oximetry 98 % Dot Allen [facility] Work Phone: Comment on above: Room air hearing wnlDR. Denbo and had a glaucoma test done 10-02-2017 09:33-0400 Respiratory Rate 18 /min Niharika Leon RN [facility] Work Phone: Comment on above: Pattern: Unlabored hearing wnlDR. Denbo and had a glaucoma test done 10-02-2017 09:33-0400 SaO2% (BldA) [Mass fraction] 98 % Niharika Leon RN [facility]; [facility] Work Phone: Comment on above: Room air hearing wnlDR. Denbo and had a glaucoma test done 10-02-2017 09:33-0400 Weight 96.28 kg Dot Eligio [facility] Work Phone: Comment on above: hearing wnlDR. Denbo and had a glaucoma test done 09-04-2017 11:16-0400 BMI (Body Mass Index) 41.15 kg/m2 [facility] Work Phone: 09-04-2017 11:16-0400 Body weight 97.18 kg [facility] Work Phone: 09-04-2017 11:16-0400 BP Diastolic 70 mm[Hg] [facility] Work Phone: Comment on above: Patient Position: Sitting; Cuff Location : Left Arm; Cuff Size: Standard 09-04-2017 11:16-0400 BP Systolic 122 mm[Hg] [facility] Work Phone: Comment on above: Patient Position: Sitting; Cuff Location : Left Arm; Cuff Size: Standard 09-04-2017 11:16-0400 BSA (Body Surface Area) 1.93 m2 [facility] Work Phone: 09-04-2017 11:16-0400 Height 153.67 cm [facility] Work Phone: 09-04-2017 11:16-0400 Pulse (Heart Rate) 57 /min [facility] Work Phone: Comment on above: Pattern: Regular 09-04-2017 11:16-0400 Pulse Oximetry 67 % Dot Allen [facility] Work Phone: Comment on above: Room air 09-04-2017 11:16-0400 Respiratory Rate 18 /min Indu Lee [facility] Work Phone: Comment on above: Pattern: Unlabored 09-04-2017 11:16-0400 SaO2% (BldA) [Mass fraction] 67 % Indu Lee [facility]; [facility] Work Phone: Comment on above: Room air 09-04-2017 11:16-0400 Weight 97.18 kg Dot Allen [facility] Work Phone: 11-03-2016 09:52-0400 BMI (Body Mass Index) 40.15 kg/m2 Niharika Leon RN [facility] Work Phone: 11-03-2016 09:52-0400 Body weight 94.8 kg Niharika Leon RN [facility] Work Phone: 11-03-2016 09:52-0400 BP Diastolic 78 mm[Hg] Niharika Leon RN [facility] Work Phone: Comment on above: Patient Position: Sitting; Cuff Location : Left Arm; Cuff Size: Large 11-03-2016 09:52-0400 BP Systolic 148 mm[Hg] Niharika Leon RN [facility] Work Phone: Comment on above: Patient Position: Sitting; Cuff Location : Left Arm; Cuff Size: Large 11-03-2016 09:52-0400 BSA (Body Surface Area) 1.91 m2 Niharika Leon RN [facility] Work Phone: 11-03-2016 09:52-0400 Height 153.67 cm Niharika Leon RN [facility] Work Phone: 11-03-2016 09:52-0400 Pulse (Heart Rate) 63 /min Niharika Leon RN [facility] Work Phone: Comment on above: Pattern: Regular 11-03-2016 09:52-0400 Pulse Oximetry 97 % Dot Allen [facility] Work Phone: Comment on above: Room air 11-03-2016 09:52-0400 Respiratory Rate 18 /min Niharika Leon RN [facility] Work Phone: Comment on above: Pattern: Unlabored 11-03-2016 09:52-0400 SaO2% (BldA) [Mass fraction] 97 % Niharika Leon RN [facility]; [facility] Work Phone: Comment on above: Room air 11-03-2016 09:52-0400 Weight 94.8 kg Dot Allen [facility] Work Phone: 10-20-2016 10:13-0400 BMI (Body Mass Index) 40.24 kg/m2 Niharika Leon RN [facility] Work Phone: 10-20-2016 10:13-0400 Body weight 95.03 kg Niharika Leon RN [facility] Work Phone: 10-20-2016 10:13-0400 BP Diastolic 82 mm[Hg] Niharika Leon RN [facility] Work Phone: Comment on above: Patient Position: Sitting; Cuff Location : Left Arm; Cuff Size: Large 10-20-2016 10:13-0400 BP Systolic 120 mm[Hg] Niharika Leon RN [facility] Work Phone: Comment on above: Patient Position: Sitting; Cuff Location : Left Arm; Cuff Size: Large 10-20-2016 10:13-0400 BSA (Body Surface Area) 1.92 m2 Niharika Leon RN [facility] Work Phone: 10-20-2016 10:13-0400 Height 153.67 cm Niharika Leon RN [facility] Work Phone: 10-20-2016 10:13-0400 Pulse (Heart Rate) 59 /min Niharika Leon RN [facility] Work Phone: Comment on above: Pattern: Regular 10-20-2016 10:13-0400 Pulse Oximetry 98 % Dot Allen [facility] Work Phone: Comment on above: Room air 10-20-2016 10:13-0400 Respiratory Rate 18 /min Niharika Leon RN [facility] Work Phone: Comment on above: Pattern: Unlabored 10-20-2016 10:13-0400 SaO2% (BldA) [Mass fraction] 98 % Niharika Leon RN [facility]; [facility] Internal Medicine Work Phone: Comment on above: Room air 10-20-2016 10:13-0400 Weight 95.03 kg Dot Allen [facility] Work Phone: 09-15-2016 10:00-0400 BMI (Body Mass Index) 39.79 kg/m2 Niharika Leon RN [facility] Work Phone: 09-15-2016 10:00-0400 Body weight 93.95 kg Niharika Leon RN [facility] Work Phone: 09-15-2016 10:00-0400 BP Diastolic 82 mm[Hg] Niharika Leon RN [facility] Work Phone: Comment on above: Patient Position: Sitting; Cuff Location : Left Arm; Cuff Size: Large 09-15-2016 10:00-0400 BP Systolic 138 mm[Hg] Niharika Leon RN [facility] Work Phone: Comment on above: Patient Position: Sitting; Cuff Location : Left Arm; Cuff Size: Large 09-15-2016 10:00-0400 BSA (Body Surface Area) 1.91 m2 Niharika Leon RN [facility] Work Phone: 09-15-2016 10:00-0400 Height 153.67 cm Niharika Leon RN [facility] Work Phone: 09-15-2016 10:00-0400 Pulse (Heart Rate) 60 /min Niharika Leon RN Comprehens jazmín Internal Medicine Work Phone: Comment on above: Pattern: Regular 09-15-2016 10:00-0400 Pulse Oximetry 98 % Dot Allen [facility] Work Phone: Comment on above: Room air 09-15-2016 10:00-0400 Respiratory Rate 18 /min Niharika Leon RN Comprehensiv e Internal Medicine Work Phone: Comment on above: Pattern: Unlabored 09-15-2016 10:00-0400 SaO2% (BldA) [Mass fraction] 98 % Niharika Leon RN [facility]; [facility] Work Phone: Comment on above: Room air 09-15-2016 10:00-0400 Weight 93.95 kg Dot Allen [facility] Work Phone: 07-20-2016 09:34-0400 BMI (Body Mass Index) 40.85 kg/m2 Margret Shrestha LPN [facility] Work Phone: 07-20-2016 09:34-0400 Body Temperature 98.3 [degF] Margret Shrestha LPN [facility] Work Phone: 07-20-2016 09:34-0400 BP Diastolic 68 mm[Hg] Margret Shrestha LPN [facility] Work Phone: 07-20-2016 09:34-0400 BP Systolic 116 mm[Hg] Margret Shrestha LPN [facility] Work Phone: 07-20-2016 09:34-0400 Height 152.4 cm Margret Shrestha LPN [facility] Work Phone: 07-20-2016 09:34-0400 Pulse (Heart Rate) 75 /min Margret Shrestha LPN [facility] Work Phone: 07-20-2016 09:34-0400 Pulse Oximetry 98 % Margret Shrestha LPN [facility] Work Phone: 07-20-2016 09:34-0400 Respiratory Rate 13 /min Margret Shrestha LPN [facility] Work Phone: 07-20-2016 09:34-0400 Weight 94.89 kg Margret Shrestha LPN [facility] Work Phone: 05-02-2016 10:48-0500 BMI (Body Mass Index) 39.86 kg/m2 Niharika Leon RN [facility] Work Phone: 05-02-2016 10:48-0500 Body weight 94.12 kg Niharika Leon RN [facility] Work Phone: 05-02-2016 10:48-0500 BP Diastolic 80 mm[Hg] Niharika Leon RN [facility] Work Phone: Comment on above: Patient Position: Sitting; Cuff Location : Left Arm; Cuff Size: Large 05-02-2016 10:48-0500 BP Systolic 142 mm[Hg] Niharika Leon RN [facility] Work Phone: Comment on above: Patient Position: Sitting; Cuff Location : Left Arm; Cuff Size: Large 05-02-2016 10:48-0500 BSA (Body Surface Area) 1.91 m2 Niharika Leon RN [facility] Work Phone: 05-02-2016 10:48-0500 Height 153.67 cm Niharika Leon RN [facility] Work Phone: 05-02-2016 10:48-0500 Pulse (Heart Rate) 67 /min Niharika Leon RN Comprehens jazmín Internal Medicine Work Phone: Comment on above: Pattern: Regular 05-02-2016 10:48-0500 Pulse Oximetry 97 % Dot Allen [facility] Work Phone: Comment on above: Room air 05-02-2016 10:48-0500 Respiratory Rate 18 /min Niharika Leon RN Comprehensiv e Internal Medicine Work Phone: 05-02-2016 10:48-0500 SaO2% (BldA) [Mass fraction] 97 % Niharika Leon RN [facility]; [facility] Work Phone: Comment on above: Room air 05-02-2016 10:48-0500 Weight 94.12 kg Dot Allen [facility] Work Phone: 12-10-2015 11:00-0400 BMI (Body Mass Index) 37.79 kg/m2 Margret Shrestha LPN [facility] Work Phone: 12-10-2015 11:00-0400 BP Diastolic 64 mm[Hg] Margret Shrestha LPN [facility] Work Phone: 12-10-2015 11:00-0400 BP Systolic 128 mm[Hg] Margret Shrestha LPN [facility] Work Phone: 12-10-2015 11:00-0400 BSA (Body Surface Area) 1.89 m2 Margret Shrestha LPN [facility] Work Phone: 12-10-2015 11:00-0400 Pulse (Heart Rate) 64 /min Margret Shrestha LPN [facility] Work Phone: 12-10-2015 11:00-0400 Respiratory Rate 16 /min Margret Shrestha LPN [facility] Work Phone: 12-10-2015 11:00-0400 Weight 90.72 kg Margret Shrestha LPN [facility] Work Phone: 09-10-2015 11:38-0400 BMI (Body Mass Index) 39.28 kg/m2 Niharika Leon RN [facility] Work Phone: Comment on above: Dr. Calix and had a glaucoma test [facility] 09-10-2015 11:38-0400 Body weight 92.76 kg Niharika Leon RN [facility] Work Phone: Comment on above: Dr. Calix and had a glaucoma test [facility] 09-10-2015 11:38-0400 BP Diastolic 78 mm[Hg] Niharika Leon RN [facility] Work Phone: Comment on above: Patient Position: Sitting; Cuff Location : Left Arm; Cuff Size: Large Dr. Calix and had a glaucoma test [place] [facility] 09-10-2015 11:38-0400 BP Systolic 128 mm[Hg] Niharika Leon RN [facility] Work Phone: Comment on above: Patient Position: Sitting; Cuff Location : Left Arm; Cuff Size: Large Dr. Calix and had a glaucoma test [place] [facility] 09-10-2015 11:38-0400 BSA (Body Surface Area) 1.9 m2 Niharika Leon RN [facility] Work Phone: Comment on above: Dr. Calix and had a glaucoma test [facility] 09-10-2015 11:38-0400 Height 153.67 cm Niharika Leon RN [facility] Work Phone: Comment on above: Dr. Calix and had a glaucoma test [facility] 09-10-2015 11:38-0400 Pulse (Heart Rate) 59 /min Niharika Leon RN Comprehens jazmín Internal Medicine Work Phone: Comment on above: Pattern: Regular Dr. Calix and had a glaucoma test [place] [facility] 09-10-2015 11:38-0400 Pulse Oximetry 99 % Dot Allen [facility] Work Phone: Comment on above: Room air Dr. Calix and had a glaucoma test [place] [facility] 09-10-2015 11:38-0400 Respiratory Rate 18 /min Niharika Leon RN Comprehensiv e Internal Medicine Work Phone: Comment on above: Pattern: Unlabored Dr. Calix and had a glaucoma test [place] [facility] 09-10-2015 11:38-0400 SaO2% (BldA) [Mass fraction] 99 % Niharika Leon RN [facility]; [facility] Work Phone: Comment on above: Room air Dr. Calix and had a glaucoma test [place] [facility] 09-10-2015 11:38-0400 Weight 92.76 kg Dot Allen [facility] Work Phone: Comment on above: Dr. Calix and had a glaucoma test [place] [facility] 09-03-2015 10:42-0400 BMI (Body Mass Index) 39.81 kg/m2 Niharika Leon RN [facility] Work Phone: 09-03-2015 10:42-0400 Body weight 94.01 kg Niharika Leon RN [facility] Work Phone: 09-03-2015 10:42-0400 BP Diastolic 80 mm[Hg] Niharika Leon RN [facility] Work Phone: Comment on above: Patient Position: Sitting; Cuff Location : Left Arm; Cuff Size: Standard 09-03-2015 10:42-0400 BP Systolic 122 mm[Hg] Niharika Leon RN [facility] Work Phone: Comment on above: Patient Position: Sitting; Cuff Location : Left Arm; Cuff Size: Standard 09-03-2015 10:42-0400 BSA (Body Surface Area) 1.91 m2 Niharika Leon RN [facility] Work Phone: 09-03-2015 10:42-0400 Height 153.67 cm Niharika Leon RN [facility] Work Phone: 09-03-2015 10:42-0400 Pulse (Heart Rate) 69 /min Niharika Leon RN Comprehens jazmín Internal Medicine Work Phone: Comment on above: Pattern: Regular 09-03-2015 10:42-0400 Pulse Oximetry 94 % Dot Allen [facility] Internal Medicine Work Phone: Comment on above: Room air 09-03-2015 10:42-0400 Respiratory Rate 18 /min Niharika Leon RN Comprehensiv e Internal Medicine Work Phone: Comment on above: Pattern: Unlabored 09-03-2015 10:42-0400 SaO2% (BldA) [Mass fraction] 94 % Niharika Leon RN [facility]; [facility] Work Phone: Comment on above: Room air 09-03-2015 10:42-0400 Weight 94.01 kg Dot Allen [facility] Work Phone: 05-15-2014 14:11-0500 BMI (Body Mass Index) 39.18 kg/m2 Niharika Leon RN [facility] Work Phone: 05-15-2014 14:11-0500 Body weight 92.53 kg Niharika Leon RN [facility] Work Phone: 05-15-2014 14:11-0500 BP Diastolic 82 mm[Hg] Niharika Leon RN [facility] Work Phone: Comment on above: Patient Position: Sitting; Cuff Location : Left Arm; Cuff Size: Large 05-15-2014 14:11-0500 BP Systolic 148 mm[Hg] Niharika Leon RN [facility] Work Phone: Comment on above: Patient Position: Sitting; Cuff Location : Left Arm; Cuff Size: Large 05-15-2014 14:11-0500 BSA (Body Surface Area) 1.89 m2 Niharika Leon RN [facility] Work Phone: 05-15-2014 14:11-0500 Height 153.67 cm Niharika Leon RN [facility] Work Phone: 05-15-2014 14:11-0500 Pulse (Heart Rate) 84 /min Niharika Leon RN Comprehens jazmín Internal Medicine Work Phone: Comment on above: Pattern: Regular 05-15-2014 14:11-0500 Pulse Oximetry 90 % Dot Allen [facility] Work Phone: Comment on above: Room air 05-15-2014 14:11-0500 Respiratory Rate 20 /min Niharika Leon RN Comprehensiv e Internal Medicine Work Phone: Comment on above: Pattern: Unlabored 05-15-2014 14:11-0500 SaO2% (BldA) [Mass fraction] 90 % Niharika Leon RN [facility]; [facility] Work Phone: Comment on above: Room air 05-15-2014 14:110500 Weight 92.53 kg Dot Allen [facility] Work Phone: 05-05-2011 10:22-0500 Height 154.94 cm Margret Shrestha LPN [facility] Work Phone: Encounters Encounter Date Encounter Type Care Provider Facility Start: 09-07-2024 Evaluation and management of inpatient Dr. Aubrey Atkinson DO -Medical Surgical 3 Work Phone: Start: 09-07-[address] Nicol Allen DO Work Phone: [facility] Work Phone: Start: 08-26-2024 End: 08-31-2024 Telephone encounter Damaso Alvarez MD Work Phone: Hematology/Oncology Comment on above: Patient Update Start: 08-26-2024 End: 08-26-2024 Postop follow up visit related to original px Yelena Garcia MD Work Phone: [facility] Comment on above: Intussusception (Mul ti) (Primary Dx) Start: 08-26-2024 End: 08-26-2024 ambulatory YELENA GARCIA [facility] Start: 08-12-2024 End: 08-21-2024 Evaluation and management of inpatient Yelena Garcia MD Work Phone: [facility] 3 Comment on above: Intussusception (Mul ti) (Primary Dx); Upper abdominal pain; Intussusception, ileocecal (Multi); Intestinal obstruction, unspecified cause, unspecified whether partial or complete (Multi) Start: 08-10-2024 End: 08-10-2024 ambulatory DOT ALLEN Facility:[facility] Start: 07-27-2024 End: 07-29-2024 Orders Only Damaso Alvarez MD Work Phone: Hematology/Oncology Comment on above: Malignant neoplasm o f upper-outer quadrant of right breast in female, estrogen receptor positive (HCC) (Primary Dx); Pleural effusion, malignant (HCC); Malignant neoplasm metastatic to bone (HCC); Malignant neoplasm of breast in female, estrogen receptor positive, unspecified laterality, unspecified site of breast (HCC) Start: 07-26-2024 End: 07-26-2024 Emergency department patient visit DOT ALLEN [facility] Start: 07-13-2024 End: 07-13-2024 ambulatory DOT ALLEN Facility:[facility] Start: 06-15-2024 End: 06-15-2024 Patient encounter procedure Damaso Alvarez MD Work Phone: Hematology/Oncology Start: 06-15-2024 End: 06-15-2024 ambulatory Injection [facility] Work Phone: Hematology/Oncology Comment on above: Malignant neoplasm o f upper-outer quadrant of right breast in female, estrogen receptor positive (HCC) (Primary Dx); Pleural effusion, malignant Malignant neoplasm o f upper-outer quadrant of right breast in female, estrogen receptor positive (HCC) (Primary Dx); Pleural effusion, malignant; Malignant neoplasm metastatic to bone (HCC) Start: 05-18-2024 End: 06-01-2024 Telephone encounter Damaso Alvarez MD Work Phone: Hematology/Oncology Comment on above: Refill Request Start: 05-18-2024 End: 05-18-2024 ambulatory Treatment Rm 14 [facility] Work Phone: Hematology/Oncology Comment on above: Malignant neoplasm o f breast in female, estrogen receptor positive, unspecified laterality, unspecified site of breast (HCC) (Primary Dx); Malignant neoplasm of upper-outer quadrant of right breast in female, estrogen receptor positive (HCC); Pleural effusion, malignant; Malignant neoplasm metastatic to bone (HCC) Start: 05-11-2024 End: 05-11-2024 ambulatory DOT ALLEN Facility:[facility] Start: 05-11-2024 End: 05-11-2024 Subsequent hospital visit by physician [facility] ([facility]) Work Phone: Cat Scan Comment on above: Malignant neoplasm o f breast in female, estrogen receptor positive, unspecified laterality, unspecified site of breast (HCC) [C50.919, Z17.0] Start: 05-05-2024 End: 05-05-2024 Telephone encounter Dacia MITCHELL Hematology/Oncology Start: 04-20-2024 End: 04-20-2024 ambulatory Injection [facility] Work Phone: Hematology/Oncology Comment on above: Malignant neoplasm o f upper-outer quadrant of right breast in female, estrogen receptor positive (HCC) (Primary Dx); Pleural effusion, malignant Start: 04-20-2024 End: 04-27-2024 Telephone encounter Damaso Alvarez MD Work Phone: Hematology/Oncology Start: 03-25-2024 End: 03-25-2024 ambulatory DOT GRUBBSON Facility:[facility] Start: 03-25-2024 End: 03-25-2024 Follow-up encounter Luciana Florez MD Work Phone: Radiation Oncology Comment on above: Radiotherapy follow- up (Primary Dx); Malignant neoplasm metastatic to bone (HCC) Start: 03-25-2024 End: 03-25-2024 Telemedicine consultation with patient Luciana Florez MD Work Phone: Radiation Oncology Start: 03-22-2024 End: 03-22-2024 [facility] Work Phone: H[facility]Oncology Comment on above: Malignant neoplasm o f upper-outer quadrant of right breast in female, estrogen receptor positive (HCC) (Primary Dx); Pleural effusion, malignant Start: 03-04-2024 End: 03-04-2024 Telephone encounter Luciana Florez MD Work Phone: Radiation Oncology Comment on above: Diarrhea; Pain ([place] area) Start: 02-26-2024 End: 02-26-2024 ambulatory Luciana Florez MD Work Phone: Radiation Oncology Comment on above: Patient Education Start: 02-25-2024 End: 02-25-2024 ambulatory DOT ALLEN Facility:[facility] Start: 02-25-2024 End: 03-08-2024 Telephone encounter Carito La RN Work Phone: Hematology/Oncology Comment on above: Opened In Error Start: 02-24-2024 End: 02-24-2024 ambulatory Treatment Rm 14 Jose [facility] Work Phone: Hematology/Oncology Comment on above: Malignant neoplasm o f upper-outer quadrant of right breast in female, estrogen receptor positive (HCC) (Primary Dx); Pleural effusion, malignant; Malignant neoplasm metastatic to bone (HCC) Start: 02-23-2024 End: 02-23-2024 Patient encounter procedure Luciana Florez MD Work Phone: Radiation Oncology Comment on above: Malignant neoplasm m etastatic to bone (HCC) (Primary Dx) Start: 02-23-2024 End: 02-23-2024 ambulatory DOT ALLEN Facility:[facility] Start: 02-22-2024 End: 02-22-2024 ambulatory DOT ALLEN Facility:[facility] Start: 02-16-2024 End: 02-17-2024 Radiation Oncology Note Luciana Florez MD Work Phone: Radiation Oncology Comment on above: Treatment Planning Simulation Note Start: 02-16-2024 End: 02-16-2024 ambulatory DOT ALLEN Facility:[facility] Start: 02-16-2024 End: 02-17-2024 Patient encounter procedure Luciana Florez MD Work Phone: Radiation Oncology Comment on above: Malignant neoplasm m etastatic to bone (HCC) (Primary Dx) Start: 02-15-2024 End: 02-15-2024 Orders Only Luciana Florez MD Work Phone: Radiation Oncology Comment on above: Malignant neoplasm m etastatic to bone (HCC) (Primary Dx) Start: 02-12-2024 End: 02-12-2024 Telephone encounter Dacia MITCHELL Hematology/Oncology Comment on above: 2024 Aditya Rossia [facility] Start: 02-12-2024 End: 02-12-2024 ambulatory DOT NIHARIKA ELIGIO Facility:[facility] Start: 02-12-2024 End: 02-12-2024 Patient encounter procedure Luciana Florez MD Work Phone: Radiation Oncology Comment on above: Pleural effusion, ma lignant; Malignant neoplasm metastatic to bone (HCC) Start: 01-27-2024 End: 01-27-2024 ambulatory Injection Jose [facility] Work Phone: Hematology/Oncology Comment on above: Malignant neoplasm o f upper-outer quadrant of right breast in female, estrogen receptor positive (HCC) (Primary Dx); Pleural effusion, malignant Pleural effusion, ma lignant (Primary Dx); Malignant neoplasm metastatic to bone (HCC); Other abnormal tumor markers Start: 01-27-2024 End: 01-27-2024 Patient encounter procedure Damaso Alvarez MD Work Phone: Hematology/Oncology Start: 12-30-2023 End: 12-30-2023 ambulatory Injection Jose [facility] Work Phone: Hematology/Oncology Comment on above: Malignant neoplasm o f upper-outer quadrant of right breast in female, estrogen receptor positive (HCC) (Primary Dx); Pleural effusion, malignant Start: 12-30-2023 End: 12-30-2023 Subsequent hospital visit by physician [facility] ([facility]) Work Phone: Cat Scan Comment on above: Malignant neoplasm o f breast in female, estrogen receptor positive, unspecified laterality, unspecified site of breast (HCC) [C50.919, Z17.0] Start: 12-02-2023 End: 12-02-2023 Patient encounter procedure Treatment Rm 14 Jose [facility] Work Phone: Hematology/Oncology Start: 12-02-2023 End: 12-02-2023 ambulatory DAMASO ALVAREZ Hematology/Oncology Comment on above: Malignant neoplasm o f upper-outer quadrant of right breast in female, estrogen receptor positive (HCC) (Primary Dx); Pleural effusion, malignant; Malignant neoplasm metastatic to bone (HCC) Start: 12-01-2023 End: 12-02-2023 Orders Only Damaso Alvarez MD Work Phone: Hematology/Oncology Comment on above: Malignant neoplasm o f upper-outer quadrant of right breast in female, estrogen receptor positive (HCC) (Primary Dx); Malignant neoplasm metastatic to bone (HCC) Start: 11-04-2023 End: 11-04-2023 ambulatory Injection [facility] Work Phone: Hematology/Oncology Comment on above: Malignant neoplasm o f upper-outer quadrant of right breast in female, estrogen receptor positive (HCC) (Primary Dx); Pleural effusion, malignant Start: 10-29-2023 End: 10-29-2023 ambulatory [facility] Ambulatory Start: 10-28-2023 End: 10-28-2023 ambulatory DOT ALLEN [facility] Start: 10-07-2023 End: 11-04-2023 ambulatory Injection [facility] Work Phone: Hematology/Oncology Comment on above: Malignant neoplasm o f upper-outer quadrant of right breast in female, estrogen receptor positive (HCC) (Primary Dx); Pleural effusion, malignant Malignant neoplasm o f breast in female, estrogen receptor positive, unspecified laterality, unspecified site of breast (HCC) (Primary Dx) Start: 10-07-2023 End: 10-07-2023 Patient encounter procedure Damaso Alvarez MD Work Phone: Hematology/Oncology Start: 10-07-2023 End: 10-07-2023 ambulatory DOT ALLEN Facility:[facility] Start: 09-09-2023 End: 09-09-2023 ambulatory Treatment Rm 11 [facility] Work Phone: Hematology/Oncology Comment on above: Malignant neoplasm o f upper-outer quadrant of right breast in female, estrogen receptor positive (HCC) (Primary Dx); Pleural effusion, malignant; Malignant neoplasm metastatic to bone (HCC) Start: 08-31-2023 Telephone encounter Damaso jeter MD Work Phone: Hematology/Oncology Comment on above: Appointment Start: 08-12-2023 End: 08-12-2023 ambulatory Injection Jose [facility] Work Phone: Hematology/Oncology Comment on above: Malignant neoplasm o f upper-outer quadrant of right breast in female, estrogen receptor positive (HCC) (Primary Dx); Pleural effusion, malignant Start: 07-15-2023 End: 07-15-2023 ambulatory Injection Jose [facility] Work Phone: Hematology/Oncology Comment on above: Malignant neoplasm o f upper-outer quadrant of right breast in female, estrogen receptor positive (HCC) (Primary Dx); Pleural effusion, malignant Start: 06-10-2023 End: 06-10-2023 ambulatory Chacorta Herring [facility] Work Phone: [facility] Comment on above: Malignant neoplasm o f upper-outer quadrant of right breast in female, estrogen receptor positive (HCC) Start: 06-10-2023 End: 06-10-2023 Telemedicine consultation with patient Chacorta Herring [facility] Work Phone: [facility] Start: 05-20-2023 End: 05-20-2023 ambulatory Injection [facility] [employer] Work Phone: Hematology/Oncology Comment on above: Malignant neoplasm o f upper-outer quadrant of right breast in female, estrogen receptor positive (HCC) (Primary Dx); Pleural effusion, malignant Malignant neoplasm m etastatic to bone (HCC) (Primary Dx) Start: 05-20-2023 End: 05-20-2023 Patient encounter procedure Damaso Alvarez MD Work [facility]: [facility] Start: 05-08-2023 End: 05-08-2023 Subsequent hospital visit by physician [facility] [employer] Work Phone: Nuclear Medicine Comment on above: Malignant neoplasm o f left female breast, unspecified estrogen receptor status, unspecified site of breast (HCC) [C50.912] Malignant neoplasm o f upper-inner quadrant of breast in female, estrogen receptor positive, unspecified laterality (HCC) (HCC) [C50.219, Z17.0] Start: 02-23-2023 End: 02-23-2023 ambulatory Injection Jose [facility] [employer] Work Phone: Hematology/Oncology Comment on above: Malignant neoplasm o f upper-outer quadrant of right breast in female, estrogen receptor positive (HCC) (Primary Dx); Pleural effusion, malignant Start: 01-26-2023 End: 01-26-2023 ambulatory Treatment Rm 13 [facility] [employer] Work Phone: Hematology/Oncology Comment on above: Malignant neoplasm m etastatic to bone (HCC) (Primary Dx); Malignant neoplasm of upper-outer quadrant of right breast in female, estrogen receptor positive (HCC) ; Pleural effusion, malignant Start: 01-08-2023 End: 01-08-2023 ambulatory Damaso Alvarez MD Work Phone: Hematology/Oncology Comment on above: Malignant neoplasm m etastatic to bone (HCC) (Primary Dx) Start: 01-08-2023 End: 01-08-2023 Patient encounter procedure Damaso Alvarez MD Work Phone: [facility] Start: 12-03-2022 Refill Damaso borjas MD Work Phone: Hematology/Oncology Comment on above: Refill Request Start: 11-26-2022 Telephone encounter Damaso jeter MD Work Phone: Hematology/Oncology Comment on above: AVS 11/26/22 Start: 11-26-2022 End: 11-26-2022 ambulatory Injection [facility] [employer] [employer] Work Phone: Hematology/Oncology Comment on above: Malignant neoplasm o f upper-outer quadrant of right breast in female, estrogen receptor positive (HCC) (Primary Dx); Pleural effusion, malignant Start: 11-06-2022 ambulatory Damaso borjas MD Work Phone: Hematology/Oncology Comment on above: Test results questio n Start: 11-03-2022 End: 11-03-2022 ambulatory Treatment Rm 8 [facility] Work Phone: Hematology/Oncology Comment on above: Malignant neoplasm o f upper-outer quadrant of right breast in female, estrogen receptor positive (HCC) (Primary Dx); Malignant neoplasm metastatic to bone (HCC) Start: 11-03-2022 Telephone encounter Damaso jeter MD Work Phone: Hematology/Oncology Comment on above: AVS 11/03 Start: 10-27-2022 End: 10-27-2022 ambulatory Injection Jose [facility] Work Phone: Hematology/Oncology Comment on above: Malignant neoplasm o f upper-outer quadrant of right breast in female, estrogen receptor positive (HCC) (Primary Dx); Pleural effusion, malignant Start: 10-22-2022 Chart Update Dot perez Work Phone: [employer] Work Phone: Start: 10-22-2022 ambulatory Dimas Saud Facilit y:[id number] Start: 10-20-2022 ambulatory Dimas Saud Facilit y:[id number] Start: 10-09-2022 Office outpatient ne w 45 minutes Dot Allen Work Phone: [place] Work Phone: Start: 09-25-2022 End: 09-25-2022 Office outpatient visit 15 minutes Dot Allen DO Work Phone: [facility] Start: 09-25-2022 End: 09-25-2022 ambulatory Injection Jose [facility] Work Phone: Hematology/Oncology Comment on above: Malignant neoplasm o f upper-outer quadrant of right breast in female, estrogen receptor positive (HCC) (Primary Dx); Pleural effusion, malignant Start: 08-27-2022 End: 08-27-2022 ambulatory Injection Jose [facility] Work Phone: Hematology/Oncology Comment on above: Malignant neoplasm o f upper-outer quadrant of right breast in female, estrogen receptor positive (HCC) (Primary Dx); Pleural effusion, malignant Start: 07-30-2022 End: 07-30-2022 ambulatory Injection Jose [facility] [employer] Work Phone: Hematology/Oncology Comment on above: Malignant neoplasm o f upper-outer quadrant of right breast in female, estrogen receptor positive (HCC) (Primary Dx); Pleural effusion, malignant Start: 07-02-2022 End: 07-02-2022 ambulatory Injection Jose [facility] [employer] Work Phone: Hematology/Oncology Comment on above: Malignant neoplasm o f upper-outer quadrant of right breast in female, estrogen receptor positive (HCC) (Primary Dx); Pleural effusion, malignant Start: 06-04-2022 End: 06-04-2022 ambulatory Injection Jose [facility] [employer] Work Phone: Hematology/Oncology Comment on above: Malignant neoplasm o f upper-outer quadrant of right breast in female, estrogen receptor positive (HCC) (Primary Dx); Pleural effusion, malignant Start: 05-21-2022 End: 05-21-2022 ambulatory Treatment Rm 13 Jose [facility] [employer] Work Phone: Hematology/Oncology Comment on above: Bone metastases (HCC ) (Primary Dx); Malignant neoplasm of upper-outer quadrant of right breast in female, estrogen receptor positive (HCC) Bone metastasis (HCC ) (Primary Dx); Malignant neoplasm of lower-inner quadrant of right breast of female, estrogen receptor positive (HCC) Start: 05-21-2022 End: 05-21-2022 Patient encounter procedure Patricia Buck MD Work Phone: [facility] Start: 05-20-2022 Orders Only Patricia Buck MD Work Phone: Hematology/Oncology Comment on above: Malignant neoplasm o f upper-outer quadrant of right breast in female, estrogen receptor positive (HCC) (Primary Dx); Bone metastases (HCC); Liver metastasis (HCC) Start: 05-07-2022 End: 05-07-2022 ambulatory Injection Jose [facility] [employer] Work Phone: Hematology/Oncology Comment on above: Malignant neoplasm o f upper-outer quadrant of right breast in female, estrogen receptor positive (HCC) (Primary Dx); Pleural effusion, malignant Start: 04-15-2022 Telephone encounter Dacia Bharagvdale MITCHELL Hematology/Oncology Comment on above: Ibrance Approval Start: 04-09-2022 Documentation procedure Mammog sadie Coordinator [facility] Start: 04-09-2022 Letter encounter Mammography Coordinator [facility] Department Start: 04-09-2022 End: 04-09-2022 ambulatory Injection Jose [facility] Work Phone: Hematology/Oncology Comment on above: Malignant neoplasm o f upper-outer quadrant of right breast in female, estrogen receptor positive (HCC) (Primary Dx); Pleural effusion, malignant Start: 03-26-2022 End: 03-26-2022 Patient encounter procedure Keith Cao MD Work Phone: Ophthalmology Comment on above: Status post cataract extraction and insertion of intraocular lens of right eye (Primary Dx); Status post cataract extraction and insertion of intraocular lens of left eye Start: 03-25-2022 End: 03-25-2022 ambulatory Keith Cao Facility:[id number] Start: 03-21-2022 End: 03-21-2022 Patient encounter procedure Keith Cao MD Work Phone: Ophthalmology Comment on above: 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); 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; Punctate keratitis of both eyes; Dry eye syndrome of both eyes; Status post cataract extraction and insertion of intraocular lens of left eye; Unspecified sleep apnea; Tachycardia; Malignant neoplasm of upper-outer quadrant of right breast in female, estrogen receptor positive (HCC) Start: 03-20-2022 End: 03-20-2022 ambulatory Keith Cao Facility:[id number] Start: 03-12-2022 End: 03-12-2022 ambulatory Injection Jose [facility] Work Phone: Hematology/Oncology Comment on above: Malignant neoplasm o f upper-outer quadrant of right breast in female, estrogen receptor positive (HCC) (Primary Dx); Pleural effusion, malignant Start: 02-27-2022 End: 02-27-2022 ambulatory TATUM SANTANA Facility:[facility] Start: 02-27-2022 End: 02-27-2022 Patient encounter procedure Tatum Santana MD Work Phone: [facility] Comment on above: Pain in both lower l egs (Primary Dx) Start: 02-26-2022 End: 02-26-2022 ambulatory Treatment Rm 9 Jose [facility] Work Phone: Hematology/Oncology Comment on above: Bone metastases (HCC ) (Primary Dx); Malignant neoplasm of upper-outer quadrant of right breast in female, estrogen receptor positive (HCC) Malignant neoplasm o f upper-outer quadrant of right breast in female, estrogen receptor positive (HCC) (Primary Dx); Bone metastases (HCC); Breast screening; Encounter for screening mammogram for malignant neoplasm of breast Start: 02-26-2022 End: 02-26-2022 Patient encounter procedure Stephania Hayes MD Work Phone: [facility] Start: 02-24-2022 End: 02-24-2022 Patient encounter procedure Keith Cao MD Work Phone: Ophthalmology Comment on above: Conjunctival hemorrh age, right eye (Primary Dx); Combined forms of age-related cataract of left eye; Combined form of age-related cataract, right eye; 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; Punctate keratitis, bilateral; Dry eye syndrome, bilateral; Unspecified sleep apnea; Malignant neoplasm of upper-outer quadrant of right breast in female, estrogen receptor positive (HCC) Start: 02-18-2022 Specialty Pharmacy Sofia Figueroa [facility] Comment on above: SPP Oral Oncology/he matology - Medication Refill (Ibrance) Start: 02-17-2022 End: 02-17-2022 Patient encounter procedure Keith Cao MD Work Phone: Ophthalmology Comment on above: Combined forms of ag e-related cataract of left eye (Primary Dx); Combined forms of age-related cataract of right eye; 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; Punctate keratitis, bilateral; Dry eye syndrome, bilateral; Unspecified sleep apnea; Tachycardia; Malignant neoplasm of upper-outer quadrant of right breast in female, estrogen receptor positive (HCC) Start: 02-12-2022 Telephone encounter Stephania Hayes MD Work Phone: Hematology/Oncology Comment on above: Patient Question Start: 02-12-2022 End: 02-12-2022 ambulatory Injection Jose [facility] Work Phone: Hematology/Oncology Comment on above: Malignant neoplasm o f upper-outer quadrant of right breast in female, estrogen receptor positive (HCC) (Primary Dx); Pleural effusion, malignant Start: 02-10-2022 Review Dot bains DO Work Phone: [facility] Start: 02-10-2022 End: 02-10-2022 Office outpatient visit 25 minutes Dot Allen DO Work Phone: [facility] Start: 02-10-2022 End: 02-10-2022 Preoperative state Dot Allen DO Work Phone: [facility]; [facility] Work Phone: Start: 01-24-2022 ambulatory Dot Allen DO [facility] Start: 01-24-2022 End: 01-24-2022 Patient encounter procedure Keith Cao MD Work Phone: Ophthalmology Comment on above: Combined form of age -related cataract, right eye (Primary Dx); Combined forms of age-related cataract of left eye; 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 Dot Allen Work Phone: [facility] Work Phone: Start: 01-14-2022 End: 01-14-[address] Dot Allen Work Phone: [facility] Start: 01-08-2022 End: 01-08-2022 ambulatory Injection Jose [facility] Work Phone: Hematology/Oncology Comment on above: Malignant neoplasm o f upper-outer quadrant of right breast in female, estrogen receptor positive (HCC) (Primary Dx); Pleural effusion, malignant Start: 12-23-2021 End: 12-23-2021 Subsequent hospital visit by physician [facility] Work Phone: Nuclear Medicine Comment on above: Malignant neoplasm o f upper-outer quadrant of right breast in female, estrogen receptor positive (HCC) [C50.411, Z17.0] Start: 12-23-2021 Telephone encounter Tatum Santana MD Work Phone: [facility] Comment on above: Appointment (Appoint ment) Start: 12-23-2021 End: 12-23-2021 Subsequent hospital visit by physician Ct [facility] (I-Stat) Work Phone: Cat Scan Comment on above: Malignant neoplasm o f upper-outer quadrant of right breast in female, estrogen receptor positive (HCC) [C50.411, Z17.0] Start: 12-20-2021 Specialty Pharmacy Jessica smith [facility] Comment on above: SPP Oral Oncology/he matology - Medication Refill (Ibrance 125mg) Start: 12-18-2021 Telephone encounter Tatum Santana MD Work Phone: [facility] Comment on above: Appointment (Appoint ment) Start: 12-18-2021 End: 12-18-2021 Office outpatient visit 10 minutes Dot Allen DO Work Phone: [facility] Start: 12-04-2021 End: 12-04-2021 ambulatory Treatment Rm 7 Jose [facility] Work Phone: Hematology/Oncology Comment on above: Malignant neoplasm o f upper-outer quadrant of right breast in female, estrogen receptor positive (HCC) (Primary Dx); Pleural effusion, malignant; Bone metastases (HCC) Start: 11-06-2021 End: 11-06-2021 ambulatory Dot Allen Facility:[facility] Start: 11-06-2021 Non-patient / Non-visit Dr. Bettye Allen Work Phone: [facility] Start: 11-06-2021 End: 11-06-[address] Dot Allen Work Phone: [facility] Start: 10-25-2021 Specialty Pharmacy [facility] Rigoberto smith [facility] Comment on above: SPP Oral Oncology/he matology - Medication Refill (Ibrance) Start: 10-24-2021 Refill Stephania Hayes MD Work Phone: Hematology/Oncology Comment on above: Refill Request Start: 10-08-2021 End: 10-08-2021 ambulatory Injection Jose [facility] Work Phone: Hematology/Oncology Comment on above: Malignant neoplasm o f upper-outer quadrant of right breast in female, estrogen receptor positive (HCC) (Primary Dx); Pleural effusion, malignant Start: 09-30-2021 End: 09-30-2021 Specialty Pharmacy Jessica Garg [facility] Comment on above: SPP Oral Oncology/he matology - Medication Refill (Ibrance) Start: 09-30-2021 End: 09-30-[address] 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); Bone metastases (HCC); Pleural effusion, malignant; Malignant neoplasm of upper-outer quadrant of right breast in female, estrogen receptor positive (HCC) Start: 09-10-2021 End: 09-10-2021 Patient encounter procedure Stephania Hayes MD Work Phone: [facility] Start: 09-09-2021 Telephone encounter Stephania Hayes MD Work Phone: Hematology/Oncology Comment on above: Patient Update Start: 08-13-2021 End: 08-13-2021 [facility] Work Phone: [facility] Comment on above: Malignant neoplasm o f upper-outer quadrant of right breast in female, estrogen receptor positive (HCC) (Primary Dx); Pleural effusion, malignant Start: 08-02-2021 Refill Stephania Hayes MD Work Phone: Hematology/Oncology Comment on above: Refill Request Start: 07-16-2021 End: 07-16-2021 ambulatory [facility] Work Phone: [facility]Oncology Comment on above: Malignant neoplasm o f upper-outer quadrant of right breast in female, estrogen receptor positive (HCC) (Primary Dx); Pleural effusion, malignant Start: 06-18-2021 End: 06-18-2021 ambulatory Treatment Rm 10 Jose [facility] Work Phone: Hematology/Oncology Comment on above: Bone metastases (HCC ) (Primary Dx); Malignant neoplasm of upper-outer quadrant of right breast in female, estrogen receptor positive (HCC); Pleural effusion, malignant Malignant neoplasm o f upper-outer quadrant of right breast in female, estrogen receptor positive (HCC) (Primary Dx); Pleural effusion, malignant; Bone metastases (HCC); Liver metastasis (HCC) Start: 06-18-2021 End: 06-18-2021 Patient encounter procedure Stephania Hayes MD Work Phone: [facility] [employer] Start: 06-14-2021 End: 06-14-2021 Subsequent hospital visit by physician Ct Prep [facility] Cat Scan Comment on above: Canceled (Pt cx: Sigrid nge in Condition, Sick) Bone metastases (HCC ) [C79.51] Start: 10-05-2020 End: 10-05-2020 Patient encounter procedure Anushka Malka HERNADEZ [facility]; [facility] Work Phone: Start: 10-05-2020 End: 10-05-2020 Periodic preventive med est patient 65yrs& older Dot Allen DO Work Phone: [facility] Start: 03-26-2020 End: 03-26-2020 Office outpatient visit 15 minutes Dot Allen [facility] Start: 12-13-2019 End: 12-13-2019 Office outpatient visit 15 minutes Dot Allen [facility] Start: 06-15-2019 End: 06-15-2019 Office outpatient visit 10 minutes Dot Allen [facility] Start: 06-07-2019 End: 06-07-2019 [facility] Start: 01-07-2019 End: 01-07-2019 Annotation/Addendum Dot Allen [facility] Start: 12-29-2018 End: 12-29-2018 Office outpatient visit 15 minutes Dot Allen [facility] Start: 12-29-2018 Review Dot Allen [facility] Start: 12-21-2018 Review Dot Allen [facility] Start: 12-21-2018 End: 12-21-2018 Office outpatient visit 15 minutes Dot Allen [facility] Start: 12-21-2018 Review Dot Eligio [facility] Start: 11-23-2018 End: 11-23-2018 Office outpatient visit 25 minutes Dot Allen [facility] Start: 11-08-2018 End: 11-08-2018 Office outpatient visit 15 minutes Dot Allen [facility] Start: 09-02-2018 End: 09-02-2018 Phone Encounter Dot Allen [facility] Start: 07-05-2018 End: 07-05-2018 Office outpatient visit 25 minutes Dot Allen [facility] Start: 07-01-2018 End: 07-01-2018 Office outpatient visit 25 minutes Dot Allen [facility] Start: 10-02-2017 End: 10-02-2017 Patient encounter procedure Niharika Leon RN [facility]; [facility] Work Phone: Start: 10-02-2017 End: 10-02-2017 Periodic preventive med est patient 65yrs& older Dot Allen [facility] Start: 09-04-2017 End: 09-04-2017 Office outpatient visit 25 minutes Dot Allen [facility] Start: 11-03-2016 End: 11-03-2016 Office outpatient visit 15 minutes Dot Allen [facility] Start: 10-20-2016 End: 10-20-2016 Office outpatient visit 25 minutes Dot Allen [facility] Start: 09-15-2016 End: 09-15-2016 Office outpatient visit 15 minutes Dot Allen [facility] Start: 09-15-2016 End: 09-15-2016 Patient encounter procedure Dot Allen DO Work Phone: [facility] Start: 05-02-2016 End: 05-02-2016 Office outpatient visit 25 minutes Dot Allen [facility] Start: 09-10-2015 End: 09-10-2015 Patient encounter procedure Dot Allen DO Work Phone: [facility] Start: 09-10-2015 End: 09-10-2015 Periodic preventive med est patient 65yrs& older Dot Allen [facility] Start: 09-03-2015 End: 09-03-2015 Office outpatient visit 25 minutes Dot Allen [facility] Start: 07-04-2014 End: 07-04-2014 Office outpatient visit 5 minutes Dot Allen [facility] Start: 06-06-2014 End: 06-06-2014 Lab Order Dotwolfgang Grubbson [facility] Start: 05-15-2014 End: 05-15-2014 Initial preventive medicine new patient 67yrs&> Dot Allen [facility] Start: 05-15-2014 End: 05-15-2014 Physical examination Dot Allen DO Work Phone: [facility] Patient encounter procedure Denisa Gravius [facility]; [facility] Work Phone: Patient encounter procedure Denisa Gravius [facility]; [facility] Work Phone: Patient encounter procedure Venkateshhayley Indira [facility]; [facility] Work Phone: Patient encounter procedure Zaki Gold [facility]; [facility] Work Phone: Physical examination Niharika Simpson [facility]; [facility] Work Phone: Preoperative [facility] Alla [employer] TE[employer] Compr ehens[facility] Internal [facility]; [facility] Work Phone: Procedures Date Procedure Procedure Detail Performing Clinician Start: 09-07-[address] Dot Allen DO Work Phone: Start: 09-07-2024 Measurement of occult blood in stool specimen using immunoassay Dr. Dot Allen DO Work Phone: Start: 08-20-2024 Basic metabolic panel calcium total Yelena Garcia MD Work Phone: Start: 08-19-2024 Radiologic exam small int single contrast study Yelena Garcia MD Work Phone: Start: 08-19-2024 Radiologic exam complete acute abdomen series Yelena Garcia MD Work Phone: Start: 08-18-2024 EXTRA TUBES Yelena Garcia MD Work Phone: Start: 08-18-2024 SST TOP Yelena Garcia MD Work Phone: Start: 08-18-2024 Basic metabolic panel calcium total Yelena Garcia MD Work Phone: Start: 08-17-2024 Radiologic exam small int single contrast study Yelena Garcia MD Work Phone: Start: 08-16-2024 Glucose quantitative blood xcpt reagent strip Yelena Garcia MD Work Phone: Start: 08-16-2024 Basic metabolic panel calcium total Yelena Garcia MD Work Phone: Start: 08-15-2024 Basic metabolic panel calcium total Yelena Garcia MD Work Phone: Start: 08-14-2024 Basic metabolic panel calcium total Yelena Garcia MD Work Phone: Start: 08-13-2024 Basic metabolic panel calcium total Yelena Garcia MD Work Phone: Start: 08-13-2024 Basic metabolic panel calcium total Yelena Garcia MD Work Phone: Start: 08-13-2024 PULSE OXIMETRY, CONTINUOUS Barak Hays DO Work Phone: Start: 08-13-2024 PULSE OXIMETRY, CONTINUOUS Barak Hays DO Work Phone: Start: 08-12-2024 End: 08-13-2024 Colectomy partial w/anastomosis Yelena Garcia MD Work Phone: Start: 08-12-2024 End: 08-13-2024 Tap block bilateral by injection(s) Yelena Garcia MD Work Phone: Start: 08-12-2024 End: 08-12-2024 EXTRA TUBES Braeden Rankin MD Work Phone: Start: 08-12-2024 End: 08-12-2024 LIGHT BLUE TOP Braeden Rankni MD Work Phone: Start: 08-12-2024 Basic metabolic panel calcium total Yelena Garcia MD Work Phone: Start: 08-12-2024 Radiologic exam abdomen 1 view Jesusita Manocchio PA-C Work Phone: Start: 08-12-2024 Radiologic exam chest single view Jesusita Manocchio PA-C Work Phone: Start: 08-12-2024 Radiologic exam abdomen 1 view Jesusita Manocchio PA-C Work Phone: Start: 08-12-2024 Ct abdomen & pelvis w/o contrast material Jesusita Manocchio PA-C Work Phone: Start: 08-12-2024 Culture bacterial quanttative colony count urine Jesusita Manocchio PA-C Work Phone: Start: 08-12-2024 EXTRA URINE DOSS TUBE Jesusita Manocchio PA-C Work Phone: Start: 08-12-2024 Urinalysis complete W Reflex Culture panel - Urine Jesusita Sim PA-C Work Phone: Start: 08-12-2024 Urinalysis microscopic panel - Urine Qualitative by Automated Jesusita Sim PA-C Work Phone: Start: 08-12-2024 Ct abdomen & pelvis w/o contrast material Jesusita Sim PA-C Work Phone: Start: 08-12-2024 Comprehensive metabolic panel Jesusita Sim PA-C Work Phone: Start: 08-12-2024 Ecg routine ecg w/least 12 lds trcg only w/o i&r Jesusita Sim PA-C Work Phone: Start: 08-12-2024 PB ED PLACEHOLDER Jesusita Sim PA-C Work Phone: Start: 05-08-2023 Bone &/joint imaging whole body Damaso Alvarez MD Work Phone: Start: 10-22-2022 Echocardiography Dot K Eligio Work Phone: Start: 10-20-2022 Lipid 1996 panel - Serum or Plasma Damaso Alvarez MD Work Phone: Start: 04-09-2022 Mammography Injection Wstr Work Phone: Start: 02-17-2022 IOL BIOMETRY W/ IOL CALC OU (BOTH EYES) Keith Cao MD Work Phone: Start: 01-14-2022 End: 01-14-2022 Venous Duplex US, Unilateral Procedure Note: See Note; NOTES: [facility] [address] [place] [address] Venous Duplex US, Unilateral 01/14/22 0811 MR#: [id number] Acct: [id number] Name: MARINA MORAES Rep #: [id number] : [id number] From: Juarez Gutierres MD Attending Dr: Dr. Dot Allen DO Status: R EG CLI Ordering Dr: Dot Allen DO Date: 01/14/22 Location: [facility] Sex: F C Admitted: Reason For Study: pain RIGHT LEFT GSV is normal. CFV is compressible, spontaneous, phasic, CFV is compressible, spontaneous, phasic, competent, and demonstrates normal competent and demonstrates normal augmentation. augmentation. FV is compressible, spontaneous, phasic, competent and demonstrates normal augmentation. POP V is compressible, spontaneous, phasic, competent and demonstrates normal augmentation. T/P Trunk is compressible. PTV is compressible. RT PerV is compressible. Procedure This is a venous duplex using B-mode, color flow and spectral Doppler. Exam performed in department. The exam was diagnostic. A preliminary report was called and/or faxed to Dr. Allen. VL/Venous Duplex US, Unilateral Interpretation Summary Deep veins of the right lower extremity are patent and compressible segmentally. There is no evidence of right lower extremity deep vein thrombosis. Valvular competence appears intact within the proximal deep venous system on the right . The right great saphenous vein appears patent and compressible segmentally. Ordering Physician: Dot Allen Performed By: Jerry Jones, RVT 01/14/224 Date Juarez Gutierres MD CC: Dr. Dot Allen DO Date Dictated: 01/14/22 0811 Date Transcribed: 01/14/221623 Spark Plug Tester: Signed Dot Allen DO Work Phone: Start: 10-03-2022 Bone &/joint imaging whole body Sandra Hogue DIGITIZER.SPEECH TEACHER Work Phone: Start: 12-23-2021 Ct abdomen & pelvis w/o contrast material Sandra Hogue DIGITIZER.SPEECH TEACHER Work Phone: Start: 12-23-2021 Ct thorax w/o contrast material Sandra Hogue DIGITIZER.SPEECH TEACHER Work Phone: Start: 11-06-2021 End: 11-06-2021 Carotid Duplex Ultrasound Procedure Note: See Note; NOTES: [facility] [address] [place] [address] Carotid Duplex Ultrasound 11/06/2112 MR#: [id number] Acct: [id number] Name: MARINA MORAES Rep #: [id number] : 1945 76 From: Apollo Valero MD Attending Dr: Dr. Dipesh Lang MD Status: RE G CLI Ordering Dr: Dipesh Lang MD Date: 11/06/21 Location: [facility] Sex: F C Admitted: Reason For Study: Bruit Rt. Velocities/BP Lt. Velocities/BP Prox CCA 122.9/22.5 cm/sec. Prox CCA 139/33.6 cm/sec. Mid CCA 132.1/26.1 cm/sec. Mid CCA 132.3/35.8 cm/sec. Dist CCA 88.2/24.3 cm/sec. Dist CCA 121.4/29.2 cm/sec. Prox ICA 88.8/21.2 cm/sec. Prox ICA 106.5/31.6 cm/sec. Mid ICA 82.6/23.7 cm/sec. Mid ICA 133.9/37.1 cm/sec. Dist ICA 82.6/23.7 cm/sec. Dist ICA 117.4/31.6 cm/sec. Rt. ICA/CCA = 0.72. Lt. ICA/CCA = 1.01. Prox ECA 115.6/18.8 cm/sec. Prox ECA 112/20.6 cm/sec. Rt. Vert. 54.4/16.3 cm/sec. Lt. Vert. 58.6/17.9 cm/sec. Right Extracranial There is intimal thickening but no significant atherosclerotic plaque noted in the right common carotid artery. There is intimal thickening but no significant atherosclerotic plaque noted in the right internal carotid artery. There is intimal thickening but no significant atherosclerotic plaque noted in the right external carotid artery. Antegrade flow is noted in the right vertebral artery. Left Extracranial There is intimal thickening but no significant atherosclerotic plaque noted in the left common carotid artery. There is intimal thickening but no significant atherosclerotic plaque noted in the left internal carotid artery. The left internal carotid artery is very tortuous. There is intimal thickening but no significant atherosclerotic plaque noted in the left external carotid artery. Antegrade flow is noted in the left vertebral artery. Procedure Carotid Duplex 01126. This is a Carotid Duplex examination using B-mode, color flow and specral Doppler. Exam performed in department. VL/Carotid Duplex Ultrasound Interpretation Summary Intimal thickening of the right carotid bulb and proximal internal carotid artery with less than 50% stenosis of the internal carotid artery Less than 50% stenosis right external carotid artery Intimal thickening at the left carotid bulb and proximal internal carotid artery with 50 to 69% stenosis of the left mid internal carotid artery although no significant plaque identified at that location. Less than 50% stenosis left external carotid artery Patent antegrade vertebrals bilaterally _ Ordering Physician: Dipesh Lang Referring Physician: Dot Allen M.D. Performed By: Lili Hernandez RVT 11/06/21 1123 Date Apollo Valero MD CC: Dr. Dot Allen DO; Dr. Dipesh Lang MD Date Dictated: 11/06/21911 Date Transcribed: 11/06/21 1123 Spark Plug Tester: Signed Dot Allen DO Work Phone: Start: 09-30-2021 End: 09-30-2021 Cardiology Visit Report Procedure Note: See Note; NOTES: [facility] [address] [place] [address] OFFICE VISIT Date of Service: 09/30/21 MR#: [id number] Acct: [id number] Name: MARINA MORAES Rep #: [id number] : 1945 Provider: Dr. Dipesh medrano MD Age/Sex: 76/F Location: [facility] Status: Signed [facility] History of Present Illness Details: This is a 76-year-old white female who presents today for outpatient follow-up of her history of PSVT, PACs, PVCs, superimposed upon a history of hyperlipidemia and hypertension. Overall since her last visit of approximately 1 year ago she states she is doing well from a cardiac standpoint. The patient denies symptoms considered classic for angina pectoris, CHF / pulmonary edema (with respect to orthopnea / PND), ongoing palpitations, or near syncope / syncope. The patient denies ongoing peripheral pitting edema. States based upon her oncology care she is been anemic . She states both her white blood count and red blood count have been low. Secondary to this she sometimes feels tired and fatigued. Intake Vital Signs 09/26/20 13:11 09/30/21 13:07 09/30/21 13:10 Height 4 ft 11 in 4 ft 11 in 4 ft 11 in Weight: 205 lb BMI 41.4 41.4 41.3 BP 140/74 H Blood Pressure Location Lt brachial Position Sitting Respiration 16 Pulse 64 Pulse Source Auscultation Intake Visit Reasons: 1 y fu Intern Brand Required: No Accompanied by: Self Allergies Iodinated Contrast Media [Iodinated Contrast- Oral and IV Dye] Allergy (Intermediate, Verified 09/30/21 13:11) Rash Sulfa (Sulfonamide Antibiotics) Allergy (Verified 09/30/21 13:11) Rash Medications multivitamin 1 ea PO DAILY SUPPLEMENT 09/12/15 [History Confirmed 09/30/21] omeprazole 20 mg capsule,delayed release 20 mg PO DAILY GERD 09/12/15 [History Confirmed 09/30/21] venlafaxine 37.5 mg capsule,extended release 24 hr 37.5 mg PO DAILY ANXIETY 09/12/15 [History Confirmed 09/30/21] fulvestrant 250 mg/5 mL intramuscular syringe (Faslodex) 500 mg IM QMONTH 08/08/19 [History Confirmed 09/30/21] carvedilol 12.5 mg tablet See Rx Instructions .Route .COMPLEX #180 tabs 09/05/20 [Rx Confirmed 09/30/21] calcium carbonate 500 mg-vitamin D3 10 mcg (400 unit) chewable tablet 2 tab PO DAILY SUPPLEMENT 09/26/20 [History Confirmed 09/30/21] loratadine 10 mg tablet (Claritin) 10 mg PO DAILY PRN 09/26/20 [History Confirmed 09/30/21] Lactobacillus rhamnosus GG 5 billion cell chewable tablet (Eferio Probiotics) 1 tab PO BID PRN 09/30/21 [History Confirmed 09/30/21] cyanocobalamin (vitamin B-12) 5,000 mcg disintegrating tablet 5,000 mcg PO DAILY 09/30/21 [History Confirmed 09/30/21] elderberry fruit 460 mg-elderberry flower 115 mg capsule 1 cap PO DAILY 09/30/21 [History Confirmed 09/30/21] melatonin 3 mg tablet 6 mg PO HS PRN 09/30/21 [History Confirmed 09/30/21] palbociclib 125 mg tablet (Ibrance) 125 mg PO .COMPLEX 09/30/21 [History] [facility] Medical History (Updated 09/30/21 @ 13:[address] Dipesh Lang MD) Atrial paroxysmal tachycardia Breast cancer Essential (primary) hypertension GERD (gastroesophageal reflux disease) Hiatal hernia Hyperlipidemia Palpitations Pleural effusion Premature atrial contractions Premature ventricular contraction Sinus bradycardia SVT (supraventricular tachycardia) Surgical History History of breast biopsy History of breast reconstruction History of hernia repair ( 07/2016) History of left knee replacement History of lung surgery History of partial mastectomy of right breast History of total hysterectomy History of total right knee replacement Status post wrist surgery Family History Mother CAD (coronary artery disease) Social History Smoking Status: Former smoker alcohol intake: current details: occasional substance use type: does not use ROS Const Const: Positive for fatigue; Negative for weakness, body ache, fever(s), headache(s), chills, frequent falls, night sweats, daytime sleepiness, difficulty sleeping, excessive sweating, weight gain, weight loss, increased appetite, poor appetite, anorexia or other Eyes Eyes: Negative for blurry vision or double vision ENT ENT: Positive for dizziness (occasional;random); Negative for headache(s) or balance problems Cardio Chest Pain: No Palpitations: No Edema: Right (UE HX lymphademia) Muscle aches with walking: None Resp Respiratory: Positive for SOB with activity (baseline); Negative for SOB at rest, SOB orthopnea SOB lying down, Cough, Coughing up blood/hemoptysis, chest congestion, pain on inspiration, snoring, stridor, wheezing, crackles, paroxysmal nocturnal dyspnea or other Musc Musc: Negative for muscle aches/ myalgia, muscle weakness, joint pain or balance problems Neuro Neuro: Positive for dizziness (occasional;random); Negative for lightheadedness, near syncope, syncope, orthostatic symptoms, frequent falls, headache(s), weakness, confusion, memory loss, restless legs, blurry vision, double vision, vertigo, seizures, lack of coordination or other Endo Endo: Positive for fatigue; Negative for excessive sweating Cardiology Exam Const Appearance: cooperative, healthy appearing, comfortable, no acute distress, well developed and well groomed Nutritional Appearance: obese Orientation: alert, awake and oriented x3 Head Head: normal to inspection, normocephalic and atraumatic Ears: hearing grossly normal bilaterally Nose: external nose normal Face and Sinus: face symmetric Eyes Eyelids: eyelids normal Conjunctivae: conjunctivae normal Pupils: PERRL EOM: EOM intact bilaterally Neck Neck: normal visual inspection and full ROM Carotids: normal carotid upstroke carotid endarterectomy: Left Chest Chest inspection: normal inspection of the chest, symmetric chest movement and normal respiratory effort Auscultation: Bilateral: Clear to Auscultation Cardio Rate: regular rate Rhythm: regular rhythm Heart sounds: S1 normal and S2 normal GI GI: normal to inspection, soft, bowel sounds present and obese Neuro General: patient alert, patient awake, patient oriented x3 and moves all extremities Skin Skin: no rashes or lesions noted Extremities Pulses: Normal: Right Radial Pulse and Left Radial Pulse Lower Extremity Edema: None: Bilateral Psych Psychological: normal affect Supplemental Info Supplemental Information Transthoracic echocardiogram: 12/11/2009 Interpretation Summary Left ventricular systolic function is normal. The estimated ejection fraction is 65 %. The left atrium is mildly enlarged. Mild (1+) mitral valve insufficiency. Mild tricuspid valve insufficiency. Right ventricular systolic pressure estimated to be 25 mmHg. Stress test: 12/11/2009 MYOCARDIAL PERFUSION SCAN TECHNIQUE The patient was injected with 12.3 mCi of Tc:99m Cardiolite and subsequently rest SPECT Cardiolite nuclear imaging was obtained in the horizontal long, vertical long, and short axes views. The patient exercised on a Abiel protocol for 5 minutes achieving a peak heart rate of 144 beats per minute (91% predicted maximum heart rate) with a peak blood pressure of 180/90 mmHg and a peak MET capacity of 7 METs. The patient was injected with 34.a mCi of Tc99rn Cardiolite and subsequently stress SPECT Ca rdioiite nuc:lear imaging was obta med in the horizontal long, vert ica] I onq, and short axes views. Dated Cardiolite study was not performed. INTERPRETATION Rest and stress SPECT Cardiolite nuclear imaging demonstrate areas of diminished to absence of tracer uptake in portions of the mid to distal anterior/anteroseptal segments. This is without significant change between rest and stress. There are similar type findings on the resting and stress polar map images. A gated Cardiolite study at peak exercise was not obtained. The aforementioned chanqes appear compatible with soft Li ssue/hreasr attenuation, however, an element of previous myocardial injury/ Ln fa rct ion cannot he excluded. There are no myocardial perfusion changes consi de red diagnostic for stress induced myocardial ischemia. IMPRESSION 1. Rest and stress SPECT Cardiolite nuclear imaging demonstrate myocardial perfusion changes appearing compatible with soft tissue/breast attenuation, however, an element of previous myocardial injury/infarction cannot be excluded. There are no myocardial perfusion changes considered diagnostic for stress induced myocardial ischemia. 2. A gated Cardiolite study at peak stress was not obtained. Holter monitor: 06-03-10 NORMAL SINUS RHYTHM MINIMUM HR 56 8PM AT 4;46:5O AM WHILE ASLEEP. AVERAGE HR 71 8PM MAXIMUM HR 117 8PM AT 5:53:36 PM WHILE VOLUNTEERING, NO SYMPTOM RECORDED. RARE ISOLATED PREMATURE ATRIAL COMPLEXES. ONE 6 BEAT RUN OF PROBABLE ECTOPIC ATRIAL TACHYCARDIA RATE 143 8PM AT 4:42:52 PM. NO FURTHER RUNS NOTED. NO ISOLATED PREMATURE VENTRICULAR COMPLEXES. NO SYMPTOMS DOCUMENTED IN 24 HOUR IIOLTER DIARY Labs: LDL Cholesterol 120 mg/dL (0-130) HDL Cholesterol 47 mg/dL (40-) Triglycerides 131 mg/dL (-199) VLDL Cholesterol 26 mg/dL (5-40) Diagnostics: Electrocardiogram Echocardiogram Abdomen US Chest X-Ray Pulmonary: No Data to Display Assessment and Plan Assessment and Plan (1) SVT (supraventricular tachycardia): Status: Acute Plan: At the present time she appears to be doing well overall with no acute symptoms or adverse events. She will continue her current medical therapy. (2) Premature atrial contractions: Status: Acute Plan: She does have a history of cardiac ectopy with PACs and PVCs. Again she appears to be doing well overall. She will continue her medical management. (3) Premature ventricular contraction: Status: Acute Plan: She will continue evaluation care as noted above. (4) Hyperlipidemia: Status: Chronic Qualifiers: Hyperlipidemia type: unspecified Qualified Code(s): E78.5 - Hyperlipidemia, unspecified Plan: A copy of her PCP lipid labs will be appreciated for continuity of care. (5) Essential (primary) hypertension: Status: Chronic Plan: She will need to continue to monitor her blood pressure. If her blood pressure trends upward then she may need to adjust her medications. (6) Bruit of left carotid artery: Status: Acute Plan: She does have a left carotid artery bruit. It does not appear she has undergone any evaluation in the past for her carotid arteries with respect to carotid artery disease/stenosis. Thus she will be asked to have a carotid artery duplex study performed. Orders: Orders Carotid Duplex Ultrasound Today E78.5 - Hyperlipidemia, unspecified, I10 - Essential (primary) hypertension, I47.1 - Supraventricular tachycardia, I49.1 - Atrial premature depolarization, I49.3 - Ventricular premature depolarization, R09.89 - Other specified symptoms and signs involving the circulatory and respiratory systems Plan Details Additional Comments: She will be asked to have an outpatient visit in approximately one year. Thank you for allowing me to participate in the care of your patient. Please don't hesitate to call if any issues arise. This note was generated using a voice recognition system and there may be incorrect words, spelling or punctuation that were not noted when reviewing the office note prior to saving. Follow Up: 1 Year (with PFM ) 09/30/21 (copy of [facility] labs) COVID (Procedure Consent) Procedure Criteria Procedure Criteria: Yes Elective The surgeon/proceduralist and patient have discussed in detail the risk of exposure to and/or potential harm posed by the COVID-19 virus with having a surgery/procedure at this time versus the risk of??? delaying the surgery/procedure. It is not possible to know either the risk of delaying the surgery or procedure or chance of getting an infection with perfect accuracy, but a joint decision was made between the patient and the surgeon/proceduralist ???to proceed at this time with the scheduled surgery/procedure as indicated on the consent form. Coding Level of Care Code Off vis,est,level 4 Diagnoses SVT (supraventricular tachycardia) I47.1 Premature atrial contractions I49.1 Premature ventricular contraction I49.3 Hyperlipidemia E78.5 Hyperlipidemia type: unspecified Essential (primary) hypertension I10 Bruit of left carotid artery R09.89 Coding Level of Care Code Off vis,est,level 4 Diagnoses SVT (supraventricular tachycardia) I47.1 Premature atrial contractions I49.1 Premature ventricular contraction I49.3 Hyperlipidemia E78.5 Hyperlipidemia type: unspecified Essential (primary) hypertension I10 Bruit of left carotid artery R09.89 09/30/21 1350 <Electronically signed by Dipesh Lang MD> Date Dipesh Lang MD Cosigner Signature: Date (if applicable) CC: Dr. Dot Allen DO; MD Dot Claudio DO Work Phone: Start: 06-14-2021 Ct thorax w/o contrast material Stephania Hayes MD Work Phone: Start: 06-14-2021 Ct abdomen & pelvis w/o contrast material Stephania Hayes MD Work Phone: Start: 09-26-2020 End: 09-26-2020 Cardiology Visit Report Comments: See Note; NOTES: [facility] [address] [place] [address] OFFICE VISIT Date of Service: 09/26/20 MR#: [id number] Acct: [id number] Name: MARINA MORAES Rep #: [id number] : 1945 Provider: Dr. Dipesh medrano MD Age/Sex: 75/F Location: [facility] Status: Signed HPI HPI History of Present Illness Details: This is a 75-year-old white female who presents today for outpatient follow-up of her history of PSVT, PACs, PVCs, superimposed upon a history of hyperlipidemia and hypertension. Overall since her last visit of approximately 1 year ago she states she is doing well from a cardiac standpoint. The patient denies symptoms considered classic for angina pectoris, CHF / pulmonary edema (with respect to orthopnea / PND), ongoing palpitations, or near syncope / syncope. The patient denies ongoing peripheral pitting edema. She states that through the [facility] system, as part of her oncology evaluation, she does remember having an echocardiogram and stress test performed in some way shape or form at one of their satellite institutions. Those results are unavailable for review. From her understanding those results did not lead to the need to change medical therapy or do any invasive cardiovascular evaluation. Intake Vital Signs 09/26/20 13:11 Height 4 ft 11 in Weight: 205 lb 1 oz BMI 41.4 BP 140/78 H Blood Pressure Location Lt brachial Position Sitting Respiration 16 Pulse 60 Pulse Source Auscultation Intake Visit Reasons: 1 Y FU Intern Brand Required: No Accompanied by: Self Allergies Iodinated Contrast Media [Iodinated Contrast- Oral and IV Dye] Allergy (Intermediate, Verified 09/26/20 13:13) Rash Sulfa (Sulfonamide Antibiotics) Allergy (Verified 09/26/20 13:13) Rash Medications multivitamin 1 ea PO DAILY 09/12/15 [History Confirmed 09/26/20] omeprazole 20 mg PO DAILY 09/12/15 [History Confirmed 09/26/20] venlafaxine 37.5 mg PO DAILY 09/12/15 [History Confirmed 09/26/20] fulvestrant 250 mg/5 mL intramuscular syringe 500 mg IM QMONTH 08/08/19 [History Confirmed 09/26/20] palbociclib 125 mg tablet 125 mg PO DAILY 08/08/19 [History Confirmed 09/26/20] zoledronic acid 4 mg IV Q12W 08/08/19 [History Confirmed 09/26/20] carvedilol 12.5 mg tablet See Rx Instructions .ROUTE .COMPLEX #180 tab 09/05/20 [Rx Confirmed 09/26/20] Lactobacillus rhamnosus GG 5 billion cell chewable tablet 1 tab PO BID 09/26/20 [History Confirmed 09/26/20] calcium carbonate 500 mg(1,250 mg)-vitamin D3 400 unit chewable tablet 2 tab PO DAILY tab 09/26/20 [History Confirmed 09/26/20] loratadine 10 mg tablet 10 mg PO DAILY PRN 09/26/20 [History Confirmed 09/26/20] PFSH Medical History Atrial paroxysmal tachycardia Breast cancer Essential (primary) hypertension GERD (gastroesophageal reflux disease) Hiatal hernia Hyperlipidemia Palpitations Pleural effusion Premature atrial contractions Premature ventricular contraction Sinus bradycardia SVT (supraventricular tachycardia) Surgical History History of breast biopsy History of breast reconstruction History of hernia repair ( 07/2016) History of left knee replacement History of lung surgery History of partial mastectomy of right breast History of total hysterectomy History of total right knee replacement Status post wrist surgery Family History Mother CAD (coronary artery disease) Social History Smoking Status: Former smoker alcohol intake: current details: occasional substance use type: does not use ROS Const Const: Positive for fatigue (increased; currently taking cancer medications); Negative for weakness, frequent falls, excessive sweating, weight gain or weight loss Eyes Eyes: Negative for transient loss of vision, blurry vision or change in vision ENT ENT: Positive for balance problems (slight); Negative for dizziness Cardio Chest Pain: No Palpitations: Yes (rare) feels like its: fast Edema: None Muscle aches with walking: None Resp Respiratory: Positive for SOB with activity (going upstairs carrying something; baseline); Negative for SOB at rest GI GI: Negative vomiting or vomiting blood/hematemesis : Negative for hematuria Musc Musc: Positive for balance problems (slight); Negative for muscle aches/ myalgia, muscle weakness or joint pain Skin Skin: Negative non-healing lesions or rash Neuro Neuro: Negative for dizziness, lightheadedness, orthostatic symptoms, frequent falls, weakness or blurry vision Jose Hematologic/Lymphatic: Negative for easy bleeding Endo Endo: Positive for fatigue (increased; currently taking cancer medications); Negative for excessive sweating Psych Psych: Negative for anxiety or depression Allergy Allergy/Immunology: Negative for hives and Negative for rash Cardiology Exam Const Appearance: cooperative, healthy appearing, comfortable, no acute distress, well developed and well groomed Nutritional Appearance: obese Orientation: alert, awake and oriented x3 Head Head: normal to inspection, normocephalic and atraumatic Ears: hearing grossly normal bilaterally Nose: external nose normal Face and Sinus: face symmetric Eyes Eyelids: eyelids normal Conjunctivae: conjunctivae normal Pupils: PERRL EOM: EOM intact bilaterally Neck Neck: normal visual inspection and full ROM Carotids: normal carotid upstroke Chest Chest inspection: normal inspection of the chest, symmetric chest movement and normal respiratory effort Auscultation: Bilateral: Clear to Auscultation Cardio Rate: regular rate Rhythm: regular rhythm Heart sounds: S1 normal and S2 normal GI GI: normal to inspection, soft, bowel sounds present and obese Neuro General: patient alert, patient awake, patient oriented x3 and moves all extremities Skin Skin: no rashes or lesions noted Extremities Pulses: Normal: Right Radial Pulse and Left Radial Pulse Lower Extremity Edema: None: Bilateral Psych Psychological: normal affect Assessment and Plan Assessment and Plan (1) SVT (supraventricular tachycardia): Status: Acute Plan - Dr. Dipesh Lang MD: At the present time she appears to be doing well overall with no acute symptoms or adverse events. She will continue her current medical therapy. (2) Premature atrial contractions: Status: Acute Plan - Dr. Dipesh Lang MD: She does have a history of cardiac ectopy with PACs and PVCs. Again she appears to be doing well overall. She will continue her medical management. (3) Premature ventricular contraction: Status: Acute Plan - Dr. Dipesh Lang MD: She will continue evaluation care as noted above. (4) Hyperlipidemia: Status: Chronic Qualifiers: Hyperlipidemia type: unspecified Qualified Code(s): E78.5 - Hyperlipidemia, unspecified Plan - Dr. Dipesh Lang MD: A copy of her PCP lipid labs will be appreciated for continuity of care. (5) Essential (primary) hypertension: Status: Chronic Plan - Dr. Dipesh Lang MD: She is her blood pressure is usually under pretty good control with her systolic blood pressure being less than or no greater than approximately 140 mmHg when she is not [facility]. Plan Details Additional Comments: Thank you for allowing me to participate in the care of your patient. Please don't hesitate to call if any issues arise. This note was generated using a voice recognition system and there may be incorrect words, spelling or punctuation that were not noted when reviewing the office note prior to saving. Follow Up: 09/26/20 (copy of [facility] echo and stress test results) 09/26/20 (with PFM) Coding Level of Care Code Off vis,est,level 3 Diagnoses SVT (supraventricular tachycardia) I47.1 Premature atrial contractions I49.1 Premature ventricular contraction I49.3 Hyperlipidemia E78.5 Hyperlipidemia type: unspecified Essential (primary) hypertension I10 Coding Level of Care Code Off vis,est,level 3 Diagnoses SVT (supraventricular tachycardia) I47.1 Premature atrial contractions I49.1 Premature ventricular contraction I49.3 Hyperlipidemia E78.5 Hyperlipidemia type: unspecified Essential (primary) hypertension I10 Supplemental Info Supplemental Information Transthoracic echocardiogram: 12/11/2009 Interpretation Summary Left ventricular systolic function is normal. The estimated ejection fraction is 65 %. The left atrium is mildly enlarged. Mild (1+) mitral valve insufficiency. Mild tricuspid valve insufficiency. Right ventricular systolic pressure estimated to be 25 mmHg. Stress test: 12/11/2009 MYOCARDIAL PERFUSION SCAN TECHNIQUE The patient was injected with 12.3 mCi of Tc:99m Cardiolite and subsequently rest SPECT Cardiolite nuclear imaging was obtained in the horizontal long, vertical long, and short axes views. The patient exercised on a Abiel protocol for 5 minutes achieving a peak heart rate of 144 beats per minute (91% predicted maximum heart rate) with a peak blood pressure of 180/90 mmHg and a peak MET capacity of 7 METs. The patient was injected with 34.a mCi of Tc99rn Cardiolite and subsequently stress SPECT Ca rdioiite nuc:lear imaging was obta med in the horizontal long, vert ica] I onq, and short axes views. Dated Cardiolite study was not performed. INTERPRETATION Rest and stress SPECT Cardiolite nuclear imaging demonstrate areas of diminished to absence of tracer uptake in portions of the mid to distal anterior/anteroseptal segments. This is without significant change between rest and stress. There are similar type findings on the resting and stress polar map images. A gated Cardiolite study at peak exercise was not obtained. The aforementioned chanqes appear compatible with soft Li ssue/hreasr attenuation, however, an element of previous myocardial injury/ Ln fa rct ion cannot he excluded. There are no myocardial perfusion changes consi de red diagnostic for stress induced myocardial ischemia. IMPRESSION 1. Rest and stress SPECT Cardiolite nuclear imaging demonstrate myocardial perfusion changes appearing compatible with soft tissue/breast attenuation, however, an element of previous myocardial injury/infarction cannot be excluded. There are no myocardial perfusion changes considered diagnostic for stress induced myocardial ischemia. 2. A gated Cardiolite study at peak stress was not obtained. Holter monitor: 06-03-10 NORMAL SINUS RHYTHM MINIMUM HR 56 8PM AT 4;46:5O AM WHILE ASLEEP. AVERAGE HR 71 8PM MAXIMUM HR 117 8PM AT 5:53:36 PM WHILE VOLUNTEERING, NO SYMPTOM RECORDED. RARE ISOLATED PREMATURE ATRIAL COMPLEXES. ONE 6 BEAT RUN OF PROBABLE ECTOPIC ATRIAL TACHYCARDIA RATE 143 8PM AT 4:42:52 PM. NO FURTHER RUNS NOTED. NO ISOLATED PREMATURE VENTRICULAR COMPLEXES. NO SYMPTOMS DOCUMENTED IN 24 HOUR IIOLTER DIARY Labs: LDL Cholesterol 120 mg/dL (0-130) HDL Cholesterol 47 mg/dL (40-) Triglycerides 131 mg/dL (-199) VLDL Cholesterol 26 mg/dL (5-40) Diagnostics: Electrocardiogram Echocardiogram Abdomen US Chest X-Ray Pulmonary: No Data to Display 09/26/20 8427 <Electronically signed by Dipesh Lang MD> Date Dipesh Lang MD Cosigner Signature: Date (if applicable) CC: Dr. Dot Allen, DO Dot Allen DO Work Phone: Start: 09-29-2019 End: 09-29-2019 Cardiology Visit Report Comments: See Note; NOTES: [facility] [address] [place] [address] OFFICE VISIT Date of Service: 09/29/19 MR#: [id number] Acct: [id number] Name: MARINA MORAES Rep #: [id number] : 1945 Provider: Dr. Dipesh medrano MD Age/Sex: 74/F [place] [facility] [place] Signed HPI HPI History of Present Illness Details: MARINA MORAES, is a 74 year old white female who presents to the office today for for outpatient cardiovascular follow-up with a history of PACs, PVCs, and an ectopic atrial tachycardia/SVT, sinus bradycardia, hyperlipidemia, and hypertension. Overall she states she has been doing well with respect to her underlying ectopy. She does not describe any ongoing issues with classic palpitations or dysrhythmias. There has been no near sync ope or syncope. At the same time she does not describe any classic symptoms for angina pectoris. There is been no evidence of CHF or pulmonary edema. There has been no other new cardiac issues or concerns she is aware of. She continues to undergo evaluation care through the [facility] system for her breast carcinoma. As you know she had recurrent pleural effusions. She did require pleurodesis. She still has some discomfort on her right side related to her surgical incision and the procedure. She did have a dobutamine stress echocardiogram performed at [facility] in May of this year. That study was reported as negative. Intake Vital Signs 09/29/19 Height 4 ft 11 in 09/29/19 Weight: 194 lb 3 oz 09/29/19 BMI 39.2 09/29/19 BP 160/82 H 09/29/19 Blood Pressure Location Lt brachial 09/29/19 Position Sitting 09/29/19 Respiration 18 09/29/19 Pulse 56 L 09/29/19 Pulse Source Auscultation 09/29/19 BMI 38.0 Intake Visit Reasons: 1 M FU Intern Brand Required: No Accompanied by: Self Allergies Iodinated Contrast Media [Iodinated Contrast- Oral and IV Dye] Allergy (Intermediate, Verified 09/29/19 16:11) Rash Sulfa (Sulfonamide Antibiotics) Allergy (Verified 09/29/19 16:11) Rash Medications Calcium Carbonate/Vitamin D3 [Calcium 500+D Tablet Chew] 1 ea PO BID 09/12/15 [History Confirmed 09/29/19] Multivitamin [Daily Multiple Vitamin] 1 ea PO DAILY 09/12/15 [History Confirmed 09/29/19] Omeprazole [Prilosec] 20 mg PO DAILY 09/12/15 [History Confirmed 09/29/19] Venlafaxine XR [Effexor Xr] 37.5 mg PO DAILY 09/12/15 [History Confirmed 09/29/19] Acetaminophen [Tylenol] 1,000 mg PO Q8 #90 tab 10/20/17 [Rx Confirmed 09/29/19] carvedilol 12.5 mg tablet 12.5 mg PO BID #180 tab 08/08/19 [Rx Confirmed 09/29/19] fulvestrant 250 mg/5 mL intramuscular syringe 500 mg IM QMONTH 08/08/19 [History Confirmed 09/29/19] palbociclib 125 mg tablet 125 mg PO DAILY 08/08/19 [History Confirmed 09/29/19] zoledronic acid 4 mg IV Q12W 08/08/19 [History Confirmed 09/29/19] PFSH Medical History Pleural effusion (Acute) SVT (supraventricular tachycardia) (Acute) Premature ventricular contraction (Acute) Premature atrial contractions (Acute) GERD (gastroesophageal reflux disease) (Chronic) Sinus bradycardia (Acute) Palpitations (Acute) Hyperlipidemia (Chronic) Atrial paroxysmal tachycardia (Chronic) Essential (primary) hypertension (Chronic) Breast cancer (Acute) Hiatal hernia (Acute) Surgical History History of partial mastectomy of right breast (Chronic) History of breast biopsy (Resolved) History of breast reconstruction (Resolved) History of hernia repair (Resolved 07/2016) History of left knee replacement (Resolved) History of lung surgery (Resolved) History of total hysterectomy (Resolved) History of total right knee replacement (Resolved) Status post wrist surgery (Resolved) Family History Mother CAD (coronary artery disease) Social History (Updated 09/29/19 @ 16:[address] Dipesh Lang MD) Smoking Status: Former smoker alcohol intake: current details: occasional substance use type: does not use ROS Const Const: Positive for fatigue; negative for weakness, frequent falls, excessive sweating, weight gain or weight loss Eyes Eyes: Negative for transient loss of vision, blurry vision or change in vision ENT ENT: Positive for balance problems (occasional); negative for dizziness Cardio Chest Pain: No Palpitations: No Edema: None Muscle aches with walking: None Resp Respiratory: Positive for SOB with activity (improved) and Cough (occasional dry); negative for SOB at rest GI GI: Negative vomiting or vomiting blood/hematemesis : Negative for hematuria Musc Musc: Positive for balance problems (occasional); negative for muscle aches/ myalgia, muscle weakness or joint pain Skin Skin: Negative non-healing lesions or rash Neuro Neuro: Negative for dizziness, lightheadedness, orthostatic symptoms, frequent falls, weakness or blurry vision Jose Hematologic/Lymphatic: Negative for easy bleeding Endo Endo: Positive for fatigue; negative for excessive sweating Psych Psych: Negative for anxiety or depression Allergy Allergy/Immunology: Negative for hives, Negative for rash Cardiology Exam Const Appearance: cooperative, healthy appearing, comfortable, no acute distress, well developed and well groomed Nutritional Appearance: overweight Orientation: alert, awake and oriented x3 Head Head: normal to inspection and normocephalic Ears: hearing grossly normal bilaterally Nose: external nose normal Face and Sinus: face symmetric Eyes Eyelids: eyelids normal Conjunctivae: conjunctivae normal Pupils: PERRL EOM: EOM intact bilaterally Neck Neck: normal visual inspection and full ROM Carotids: normal carotid upstroke Chest Chest inspection: normal inspection of the chest, symmetric chest movement and normal respiratory effort Auscultation: Right: Diminished Base Cardio Palpation: normal PMI Rate: regular rate Rhythm: regular rhythm Heart sounds: S1 normal and S2 normal GI GI: normal to inspection, soft and bowel sounds present Neuro General: alert, awake, oriented x3 and moves all extremities Skin Skin: no rashes or lesions noted Extremities Pulses: Normal: Right Radial Pulse, Left Radial Pulse Lower Extremity Edema: None: Bilateral Musculoskel Musculoskeletal: joint tenderness Psych Psychological: normal affect Assessment Plan 1. PAC (premature atrial contraction) I49.1 Plan At the present time she states she has not been sensing any of her ectopy or dysrhythmias. She will continue her current therapy and follow-up 2. PVC (premature ventricular contraction) I49.3 Plan Again she states she has been doing well with her ectopy and dysrhythmias. She will continue her current medical management and follow-up. 3. SVT (supraventricular tachycardia) I47.1 Plan There is been no obvious report of any recurrent tachycardia dysrhythmias. She will continue her medical therapy and follow-up. 4. Sinus bradycardia R00.1 Plan She does not appear to be markedly bradycardic at this time. Thus she will continue her current medications and follow-up. 5. Hyperlipidemia, unspecified hyperlipidemia type E78.5 Plan A copy of her lipid labs will be appreciated for continuity of care. 6. Essential (primary) hypertension I10 Plan Her blood pressure somewhat elevated today. She states this does occur after she receives her chemotherapy injections. She notes at other times her blood pressures have been under good control. She will continue to monitor her blood pressures. However if her trends are increasing then she may need adjustment of her medications. Plan Detail Additional Comments Thank you for allowing me to participate in the care of your patient. Please don't hesitate to call if any issues arise. This note was generated using a voice recognition system and there may be incorrect words, spelling or punctuation that were not noted when reviewing the office note prior to saving. Follow Up 1 Year (with PFM) Coding Level of Care Code Off vis,est,level 3 Diagnoses PAC (premature atrial contraction) I49.1 PVC (premature ventricular contraction) I49.3 SVT (supraventricular tachycardia) I47.1 Sinus bradycardia R00.1 Hyperlipidemia, unspecified hyperlipidemia type E78.5 ?Hyperlipidemia type: unspecified Essential (primary) hypertension I10 Coding Level of Care Code Off vis,est,level 3 Diagnoses PAC (premature atrial contraction) I49.1 PVC (premature ventricular contraction) I49.3 SVT (supraventricular tachycardia) I47.1 Sinus bradycardia R00.1 Hyperlipidemia, unspecified hyperlipidemia type E78.5 ?Hyperlipidemia type: unspecified Essential (primary) hypertension I10 Supplemental Info Supplemental Information Transthoracic echocardiogram: 12/11/2009 Interpretation Summary Left ventricular systolic function is normal. The estimated ejection fraction is 65 %. The left atrium is mildly enlarged. Mild (1+) mitral valve insufficiency. Mild tricuspid valve insufficiency. Right ventricular systolic pressure estimated to be 25 mmHg. Stress test: 12/11/2009 MYOCARDIAL PERFUSION SCAN TECHNIQUE The patient was injected with 12.3 mCi of Tc:99m Cardiolite and subsequently rest SPECT Cardiolite nuclear imaging was obtained in the horizontal long, vertical long, and short axes views. The patient exercised on a Abiel protocol for 5 minutes achieving a peak heart rate of 144 beats per minute (91% predicted maximum heart rate) with a peak blood pressure of 180/90 mmHg and a peak MET capacity of 7 METs. The patient was injected with 34.a mCi of Tc99rn Cardiolite and subsequently stress SPECT Ca rdioiite nuc:lear imaging was obta med in the horizontal long, vert ica] I onq, and short axes views. Dated Cardiolite study was not performed. INTERPRETATION Rest and stress SPECT Cardiolite nuclear imaging demonstrate areas of diminished to absence of tracer uptake in portions of the mid to distal anterior/anteroseptal segments. This is without significant change between rest and stress. There are similar type findings on the resting and stress polar map images. A gated Cardiolite study at peak exercise was not obtained. The aforementioned chanqes appear compatible with soft Li ssue/hreasr attenuation, however, an element of previous myocardial injury/ Ln fa rct ion cannot he excluded. There are no myocardial perfusion changes consi de red diagnostic for stress induced myocardial ischemia. IMPRESSION 1. Rest and stress SPECT Cardiolite nuclear imaging demonstrate myocardial perfusion changes appearing compatible with soft tissue/breast attenuation, however, an element of previous myocardial injury/infarction cannot be excluded. There are no myocardial perfusion changes considered diagnostic for stress induced myocardial ischemia. 2. A gated Cardiolite study at peak stress was not obtained. Holter monitor: 06-03-10 NORMAL SINUS RHYTHM MINIMUM HR 56 8PM AT 4;46:5O AM WHILE ASLEEP. AVERAGE HR 71 8PM MAXIMUM HR 117 8PM AT 5:53:36 PM WHILE VOLUNTEERING, NO SYMPTOM RECORDED. RARE ISOLATED PREMATURE ATRIAL COMPLEXES. ONE 6 BEAT RUN OF PROBABLE ECTOPIC ATRIAL TACHYCARDIA RATE 143 8PM AT 4:42:52 PM. NO FURTHER RUNS NOTED. NO ISOLATED PREMATURE VENTRICULAR COMPLEXES. NO SYMPTOMS DOCUMENTED IN 24 HOUR IIOLTER DIARY Labs LDL Cholesterol 120 mg/dL (0-130) 12/05/14 HDL Cholesterol 47 mg/dL (40-) 12/05/14 Triglycerides 131 mg/dL (-199) 12/05/14 VLDL Cholesterol 26 mg/dL (5-40) 12/05/14 Diagnostics Electrocardiogram 10/19/17 Echocardiogram 08/31/18 Abdomen Ultrasound 11/10/18 Chest X-Ray 04/29/19 09/29/19 2129 <Electronically signed by Dipesh Lang MD> Date Dipesh Lang MD Cosigner Signature: Date (if applicable) CC: DO Dot Macdonald Start: 08-18-[address] (I-Stat) Work Phone: Start: 08-08-2019 End: 08-08-2019 [email or web address] Comments: See Note; NOTES: [facility] [address] [place] [address] OFFICE VISIT Date of Service: 08/08/19 MR#: [id number] Acct: [id number] Patient: MARINA MORAES Rep #: [id number] : 1945 Provider: Dr. Dipesh medrano MD Age/Sex: 73/F Location: [facility] [place] Status: Signed Intake Vital Signs 08/08/19 Height 4 ft 11 in 08/08/19 Weight: 188 lb 08/08/19 BMI 38.0 08/08/19 BP 128/64 H 08/08/19 Pulse 53 L 08/08/19 Comment Vital Signs obtained per patient 08/08/19 BMI 41.8 Intake Visit Reasons: 1 y fu/PHONE Chief Complaint: PACs; PVCs; SVT; Sinus Bradycardia; HLD; HTN; Pleural Effusion Allergies Iodinated Contrast Media [Iodinated Contrast- Oral and IV Dye] Allergy (Intermediate, Verified 08/08/19 13:43) Rash Sulfa (Sulfonamide Antibiotics) Allergy (Verified 08/08/19 13:43) Rash Medications Calcium Carbonate/Vitamin D3 [Calcium 500+D Tablet Chew] 1 ea PO BID 09/12/15 [History Confirmed 08/08/19] Multivitamin [Daily Multiple Vitamin] 1 ea PO DAILY 09/12/15 [History Confirmed 08/08/19] Omeprazole [Prilosec] 20 mg PO DAILY 09/12/15 [History Confirmed 08/08/19] Venlafaxine XR [Effexor Xr] 37.5 mg PO DAILY 09/12/15 [History Confirmed 08/08/19] Acetaminophen [Tylenol] 1,000 mg PO Q8 #90 tab 10/20/17 [Rx Confirmed 08/08/19] carvedilol 12.5 mg tablet 12.5 mg PO BID #180 tab 08/08/19 [Rx Confirmed 08/08/19] fulvestrant 250 mg/5 mL intramuscular syringe 500 mg IM QMONTH 08/08/19 [History Confirmed 08/08/19] palbociclib 125 mg tablet 125 mg PO DAILY 08/08/19 [History] zoledronic acid 4 mg IV Q12W 08/08/19 [History Confirmed 08/08/19] PFS Medical History Pleural effusion (Acute) SVT (supraventricular tachycardia) (Acute) Premature ventricular contraction (Acute) Premature atrial contractions (Acute) GERD (gastroesophageal reflux disease) (Chronic) Sinus bradycardia (Acute) Palpitations (Acute) Hyperlipidemia (Chronic) Atrial paroxysmal tachycardia (Chronic) Essential (primary) hypertension (Chronic) Breast cancer (Acute) Hiatal hernia (Acute) Surgical History History of lung surgery (Resolved) History of partial mastectomy of right breast (Chronic) History of breast biopsy (Resolved) History of breast reconstruction (Resolved) History of hernia repair (Resolved 07/2016) History of left knee replacement (Resolved) History of total hysterectomy (Resolved) History of total right knee replacement (Resolved) Status post wrist surgery (Resolved) Family History Mother CAD (coronary artery disease) Social History (Updated 08/08/19 @ 14:[address] Dipesh Lang MD) Smoking Status: Former smoker alcohol intake: current details: occasional substance use type: does not use HPI HPI Chief Complaint: PACs; PVCs; SVT; Sinus Bradycardia; HLD; HTN; Pleural Effusion Details: Patient was informed that this visit will be billed to patient. This visit was conducted during pandemic. MARINA MORAES, is a 73 year old white female with a past medical history of PACs, PVCs, PSVT, Sinus Bradycardia; hyperlipidemia, hypertension, and pleural effusion who presents for an outpatient telephone visit secondary to the ongoing coronavirus pandemic. She states since her last visit she has been undergoing additional evaluation care for her history of breast carcinoma. This eventually led to [facility] evaluation which included surgery, chemotherapy, and based upon recurrent right-sided pleural effusions a pleurodesis procedure. She notes during this time, in preparation for her noncardiac procedures, she did have a stress test performed through the [facility]. She states this did not lead to further evaluation with diagnostic cardiac catheterization. To the best of her knowledge her cardiac status did not become an issue during or following her surgery. She has had some intermittent sharp fleeting discomforts in her chest since her surgical procedure. However she has had no other symptoms suspicious for angina pectoris. She denies any ongoing episodes of obvious CHF such as orthopnea or PND or peripheral pitting edema. There has been no episodes of near syncope or syncope. She is noted very rare palpitations. She continues on her beta-colt therapy. Her heart rate and blood pressure she presents today appear to be well controlled. Her previous [facility] stress test and other procedure notes, etc., are unavailable for review at this time. ROS Const Constitutional: Positive for fatigue; no anorexia, body ache, chills, excessive sweating, fever(s), frequent falls, headache(s), decreased energy, malaise, night sweats, snoring, weakness, weight change, sleep problems, abnormal sleep pattern, change in appetite or other Eyes Eyes: No visual disturbances ENT ENT: No abnormal hearing, headache(s) or neck pain Resp Respiratory: Positive for cough Cough: Yes non-productive and shortness of breath (due chemo medicine) sob: SOB with activity; no change in phlegm color, chest congestion, excessive phlegm production, hemoptysis, pain on inspiration, pain with cough, snoring, stridor, wheezing or other Cardio Cardiology: Positive for chest pain with exertion (Twinge/brief) Symptoms: Sharp, generalized swelling (Rt hand) and palpitations (slight; fast); no chest pain at rest, leg pain with exertion, excessive sweating, shortness of breath, dyspnea on exertion, irregular heart rhythm, lightheadedness, orthopnea, radiating jaw, neck or arm pain, fast heart rate, slow heart rate or other Musc Musculoskeletal: No abnormal walking, joint pain, back pain, deformity, joint swelling, limited range of motion, loss of height, muscle cramps, muscle weakness, decreased muscle mass, body aches, neck pain, numbness, radiating pain into limb, stiffness, tingling or other Neuro Neurology: No abnormal walking, abnormal hearing, abnormal movements, abnormal speech, behavioral changes, confusion, unsteady gait/balance, dizziness, weakness, frequent falls, headache(s), lack of coordination, loss of vision, memory loss, numbness, tingling, visual disturbances, restless legs, fainting, tremor(s) or other Psych Psychiatric: No abnormal sleep pattern, No behavioral changes, No change in appetite, No confusion, No memory loss Endo Endocrine: Positive for fatigue; no excessive sweating Aller/Imm Allergy/Immunologic: No wheezing Exam Const Other: Examination not performed secondary to telephone visit secondary to COVID-19. [facility] [place] Musculoskeletal: No muscle weakness Details: Details:: Exam was limited due to phone visit with no video. Supplemental Info She did have a transthoracic echocardiogram performed on 12/11/2009. The results are as noted below. Left ventricular systolic function is normal. The estimated ejection fraction is 65 %. The left atrium is mildly enlarged. Mild (1+) mitral valve insufficiency. Mild tricuspid valve insufficiency. Right ventricular systolic pressure estimated to be 25 mmHg. She also had a stress test performed on 12/11/2009. At that time she exercised on a Abiel protocol for 5 minutes achieving 91% predicted maximal heart rate with a peak blood pressure of 180/90 mmHg and a peak metabolic equivalent of 7 metabolic equivalents. She had no obvious ECG changes. She had a rare PAC pretest and during recovery. Her nuclear images demonstrated myocardial perfusion changes appearing compatible soft tissue/breast attenuation although an element of previous myocardial injury/infarction cannot be excluded. There were no myocardial perfusion changes consider diagnostic for stress-induced myocardial ischemia. Echocardiogram: 08/31/2018 Interpretation Summary The study was technically difficult. Left ventricular systolic function is normal. The estimated ejection fraction is 65 %. The global longitudinal strain = -26 % (normal). The left atrium is mildly enlarged. Trivial mitral valve insufficiency. Trivial tricuspid valve insufficiency. Mild focal aortic valve thickening. Right ventricular systolic pressure estimated to be 40 mmHg. No evidence for diastolic dysfunction. He had a 24-hour Holter monitor performed on 05/28/2010. The results are as noted below. NORMAL SINUS RHYTHM MINIMUM HR 56 8PM AT 4;46:5O AM WHILE ASLEEP. AVERAGE HR 71 8PM MAXIMUM HR 117 8PM AT 5:53:36 PM WHILE VOLUNTEERING, NO SYMPTOM RECORDED. RARE ISOLATED PREMATURE ATRIAL COMPLEXES. ONE 6 BEAT RUN OF PROBABLE ECTOPIC ATRIAL TACHYCARDIA RATE 143 8PM AT 4:42:52 PM. NO FURTHER RUNS NOTED. NO ISOLATED PREMATURE VENTRICULAR COMPLEXES. NO SYMPTOMS DOCUMENTED IN 24 HOUR IIOLTER DIARY Quality Reporting Medication Reconciliation ([facility] 68) acetaminophen 1,000 mg (2 x 500 mg) PO Q8 calcium carbonate-vitamin D3 500 mg(1,250mg) -400 unit 1 ea PO BID carvedilol 12.5 mg PO BID fulvestrant (Faslodex) 500 mg IM QMONTH multivitamin 1 ea PO DAILY omeprazole 20 mg PO DAILY palbociclib 125 mg tablet (Ibrance) 125 mg PO DAILY venlafaxine ER 37.5 mg PO DAILY [zoledronic acid 4 mg IV Q12W] BMI Screening (CMS 69) Body Mass Index (BMI): 41.8 Tobacco Screening (CMS 138) Smoking Status: Former smoker Assessment Plan 1. PAC (premature atrial contraction) I49.1 Plan At the present time she appears to be doing doing well without any acute symptoms or adverse events. She will continue her current medical management and follow-up. 2. PVC (premature ventricular contraction) I49.3 Plan She will continue evaluation care as noted above. 3. SVT (supraventricular tachycardia) I47.1 Plan There is been no obvious report of recurrent supraventricular tachycardia dysrhythmias. She will continue her beta-colt therapy. 4. Sinus bradycardia R00.1 Plan She also has a history of sinus bradycardia. Her heart rate is in the 50s. However she appears to be stable at this time with a balance between her heart rate and her medications. Thus she will continue her current medical therapy. 5. Hyperlipidemia, unspecified hyperlipidemia type E78.5 Plan She states she is following with her PCP for her lipid labs. 6. Essential (primary) hypertension I10 Plan Her blood pressure appears to be under good control. She will continue medical therapy. 7. Pleural effusion J90 Plan She notes she underwent reevaluation for her pleural effusion which led to a pleurodesis procedure. Since that time she believes she has been doing much better. 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 She believes she is tolerating her medications well thus far. A request will be made to obtain her [facility] records for continuity care purposes. She will also be requested to have future outpatient cardiovascular follow-up. The above was discussed with her she was agreeable to this approach. Thank you for allowing me to participate in the care of your patient. Please don't hesitate to call if any issues arise. This note was generated using a voice recognition system and there may be incorrect words, spelling or punctuation that were not noted when reviewing the office note prior to saving. Time spent in the patient's evaluation/care/medical decision making process: 15 minutes Follow Up 08/08/19 (copy of [facility] records) 1 Month (with PF) 08/08/19 2360 <Electronically signed by Dipesh Lang MD> Date Dipesh Lang MD Cosigner Signature: Date (if applicable) CC: DO Dot Macdonald Start: 01-18-2019 End: 01-18-2019 Chest Insp/Exp 2 View Comments: See Note; NOTES: [facility] [address] [place] [address] Chest Insp/Exp 2 View MR#: [id number] Acct: [id number] Name: MARINA MORAES Rep #: [id number] : 1945 F 73 From: Abhinav Freeman MD PCP: Dot Allen DO Status: REG CLI Study: Chest Insp/Exp 2 View Date of Exam: 01/18/19 Exam# [id number] Ordering Dr: Abhinav Freeman MD STUDY: X-RAY CHEST REASON FOR EXAM: Female, 73 years old. Status post right thoracentesis. TECHNIQUE: AP inspiration and expiration views. COMPARISON: Comparison is made with prior examination dated January 03, 2019. FINDINGS: Surgical clips are seen in the right axillary region. Minimal pleural parenchymal changes are seen at the right lung base. No evidence of pneumothorax. RAD/Chest Insp/Exp 2 View IMPRESSION: No evidence of pneumothorax. Electronically Signed: Abhinav Freeman, at 15:07 EDT , Service support , CC: Abhinav Freeman MD; Dot Allen DO Spark Plug Tester: Signed Dot Allen Start: 01-18-2019 End: 01-20-2019 Thoracentesis W US Comments: See Note; NOTES: [facility] [address] [place] [address] Thoracentesis W US MR#: [id number] Acct: [id number] Name: MARINA MORAES Rep #: [id number] : 1945 F 73 From: Abhinav Freeman MD PCP: Dot Allen DO Status: REG CLI Study: Thoracentesis W US Date of Exam: 01/18/19 Exam# [id number] Ordering Dr: Yelena Aldana PROCEDURE: ULTRASOUND GUIDED THORACENTESIS. DATE: January 18, 2019.. INDICATION: Female, 73 years old. Right pleural effusion. PHYSICIAN: Abhinav Freeman M.D. PROCEDURE: The risks, benefits, and alternatives to the procedure were explained to the patient. The specific risks of bleeding, infection, and pneumothorax requiring chest tube insertion were discussed and accepted. Written informed consent was obtained. Ultrasonographic evaluation of the right lower pleural space was carried out. An adequate pocket was identified. The patient was placed in the sitting, upright position. The overlying skin was prepped and draped in sterile fashion. 1% lidocaine was administered subcutaneously for local anesthesia. Under ultrasound guidance, a 5 Solomon Islander thoracentesis needle/catheter system was advanced into the right posterior lower pleural fluid collection. Approximately 750 mL of julita-colored fluid was drained. The catheter was removed, and a sterile dressing was applied. The patient tolerated the procedure well. A chest x-ray was ordered. US/Thoracentesis W US IMPRESSION: Ultrasound-guided right thoracentesis. Electronically Signed: Abhinav Freeman, at 8:10 EDT , Service support , CC: ELI Aldana; Dot Allen DO Spark Plug Tester: Signed Yelena Aldana Work Phone: Start: 01-17-2019 End: 01-18-2019 PET/CT Tumor Base -Thigh Init Comments: See Note; NOTES: [facility] [address] [place] [address] PET/CT Tumor Base -Thigh Init MR#: [id number] Acct: [id number] Name: MARINA MORAES Rep #: [id number] : 1945 F 73 From: Marc Gregory DO PCP: Dot Allen DO Status: REG CLI Study: PET/CT Tumor Base -Thigh Init Date of Exam: 01/17/19 Exam# [id number] Ordering Dr: Stephania Hayes MD EXAMINATION: FDG PET CT INDICATIONS: A 73-year-old female with reported history of carcinoma of the breast presenting for initial staging examination. COMPARISON EXAMINATION: None available. INDEX LESION SIZE SUV INTERPRETATION Right lower medial hemithorax pleural interface 40.8 mm largest (frame 179) 4.9 (max) Fulfills quantitative criteria for viable neoplasm Axial skeletal structures 8.4 (max) Fulfills quantitative criteria for viable osseous neoplasm TECHNIQUE: Following the intravenous administration of 14.4 mCi of F-18 deoxyglucose via the left antecubital fossa, multiplanar image acquisitions of the neck, chest, abdomen and pelvis to level of mid thigh, obtained at one hour post radiopharmaceutical administration contemporaneously interpreted with the current CT of the neck, chest, abdomen and pelvis to level of mid thigh, dated 01/17/19 via coregistration reveal: SERUM GLUCOSE LEVEL: 88 mg/dl. HEIGHT: 59 inches. WEIGHT: 186 lbs. FINDINGS: 1. There is an increase in glucose metabolism identified in the right lower medial and anteromedial hemithorax at the pleural interface generating a calculated maximum standard uptake value of 4.9. The largest corresponding pleural-based density on review of CT of the chest dated 01/17/19 is approximately 40.8 mm (AP). 2. Enhanced FDG concentration is noted in the first and second lumbar, the ninth, eleventh and twelfth thoracic vertebrae generating a calculated maximum standard uptake value of 8.4. Mixed sclerotic-lytic changes are noted in the analogous locations on review of CT of the chest-abdomen dated 01/17/19. 3. Normal physiologic distribution of the radiopharmaceutical is apparent in the hepatic (2.8) and splenic parenchyma, both renal units, bladder and visualized intestinal tract. There is uniform distribution of the radiopharmaceutical concentration defined in the visualized cerebellar hemispheres and cerebral cortical structures.? Diffuse intestinal tract activity is noted throughout all four quadrants of the abdominal-pelvic retroperitoneum, mesentery consistent with normal physiologic distribution of the radiopharmaceutical. Mild increased glucose metabolism is defined in the right anterior chest wall generating a calculated maximum standard uptake value of 1.3. Quantitative criteria for viable neoplasm are not fulfilled. Pertinent CT findings are as follows. CHEST: A right hemithorax pleural effusion demonstrates no evidence of quantitatively significant increased FDG concentration. Surgical clips are identified in the right breast-chest wall, as well as right axilla. Visualized right and left axillary soft tissue densities demonstrate no evidence of facilitated FDG uptake. There are no parenchymal densities-nodules defined in the right and left hemithorax demonstrating discernible increased glucose metabolism. A subcentimeter density noted in the left lower posterior medial lung field-left lower lobe is ametabolic. ABDOMEN AND PELVIS: Atherosclerotic calcification is defined in the abdominal aorta without evidence of dilatation, aneurysm formation. Pelvic arterial calcification is observed. A prominent fat-containing right inguinal hernia is noted. Bilateral inguinal soft tissue densities with fatty hilus are non-glucose avid. Colonic diverticulosis is defined. The uterus appears surgically absent. Apparent postsurgical changes are defined in the left anterior pelvic wall. SKELETAL: Degenerative changes defined in the cervical, thoracic and lumbar spine demonstrate no evidence for glucose hypermetabolism. Mixed sclerotic-lytic changes are manifest in the ninth, eleventh-twelfth thoracic, first-second lumbar vertebrae with facilitated increased glucose metabolism. PET/PET/CT Tumor Base -Thigh Init IMPRESSION: 1. ABNORMAL EXAMINATION INDICATIVE OF MALIGNANT-METASTATIC VIABLE NEOPLASM. 2. Facilitated radiopharmaceutical concentration observed in the right lower medial hemithorax at the pleural interface fulfills quantitative criteria for viable pleural neoplasm. (Cao, et al, Chest 122:1918, 2002). 3. Osseous skeletal hypermetabolic foci fulfill quantitative criteria for viable osseous neoplasm. (Yary almeida al, Clinical Nuclear Medicine 29:161, 2004). 4. Enhanced tracer distribution noted in the right anterior chest wall does not fulfill quantitative criteria for viable neoplasm and is most consistent with postsurgical change. (Hector et al, Journal of Nuclear Medicine 46:34P, 2005). Electronic Signature Marc Gregory D.O. Electronically Signed: Marc Gregory DO at 23:26 EDT Tel , Service support , CC: Dot Allen DO; Stephania Hayes MD Spark Plug Tester: Signed Dot Allen Start: 01-03-2019 End: 01-03-2019 Chest Insp/Exp 2 View Comments: See Note; NOTES: [facility] [address] [place] [address] Chest Insp/Exp 2 View MR#: [id number] Acct: [id number] Name: MARINA MORAES Rep #: [id number] : 1945 F 73 From: Abhinav Freeman MD PCP: Dot Allen DO Status: REG CLI Study: Chest Insp/Exp 2 View Date of Exam: 01/03/19 Exam# [id number] Ordering Dr: Abhinav Freeman MD STUDY: X-RAY CHEST REASON FOR EXAM: Female, 73 years old. Status post right thoracentesis. TECHNIQUE: AP inspiration and expiration views. COMPARISON: Comparison is made with prior study dated December 21, 2018. FINDINGS: Surgical clips are seen in the right axillary region. The patient is status post right thoracentesis. Minimal pleural-parenchymal changes persist at the right lung base. Incidental note is made of a right calcific tendinitis. RAD/Chest Insp/Exp 2 View IMPRESSION: Status post right thoracentesis. There is no evidence of pneumothorax. Electronically Signed: Abhinav Freeman, at 15:35 EDT , Service support , CC: Abhinav Freeman MD; Dot Allen DO Spark Plug Tester: Signed Dot Allen Start: 01-03-2019 End: 01-03-2019 Thoracentesis W US Comments: See Note; NOTES: [facility] [address] [place] [address] Thoracentesis W US MR#: [id number] Acct: [id number] Name: MARINA MORAES Rep #: [id number] : 1945 F 73 From: Abhinav Freeman MD PCP: Dot Allen DO Status: REG CLI Study: Thoracentesis W US Date of Exam: 01/03/19 Exam# [id number] Ordering Dr: Yelena Aldana PROCEDURE: ULTRASOUND GUIDED THORACENTESIS. DATE: January 03, 2019. INDICATION: Female, 73 years old. Right pleural effusion. PHYSICIAN: Abhinav Freeman M.D. PROCEDURE: The risks, benefits, and alternatives to the procedure were explained to the patient. The specific risks of bleeding, infection, and pneumothorax requiring chest tube insertion were discussed and accepted. Written informed consent was obtained. Ultrasonographic evaluation of the right lower pleural space was carried out. An adequate pocket was identified. The patient was placed in the sitting, upright position. The overlying skin was prepped and draped in sterile fashion. 1% lidocaine was administered subcutaneously for local anesthesia. Under ultrasound guidance, a 5 Solomon Islander thoracentesis needle/catheter system was advanced into the right posterior lower pleural fluid collection. Approximately 920 mL of julita-colored fluid was drained. The catheter was removed, and a sterile dressing was applied. A specimen was collected and sent to the laboratory for analysis, as requested by the referring clinician. The patient tolerated the procedure well. A chest x-ray was ordered. US/Thoracentesis W US IMPRESSION: Ultrasound-guided right thoracentesis. Electronically Signed: Abhinav Freeman, at 15:45 EDT , Service support , CC: ELI Aldana; Dot Allen DO Spark Plug Tester: Signed Yelena Aldana Work Phone: Start: 12-21-2018 End: 12-21-2018 Abdomen Single View Comments: See Note; NOTES: [facility] [address] [place] [address] Abdomen Single View MR#: [id number] Acct: [id number] Name: MARINA MORAES Rep #: [id number] : 1945 F 73 From: Vinay Tapia MD PCP: Dot Allen DO Status: REG CLI Study: Abdomen Single View Date of Exam: 12/21/18 Exam# [id number] Ordering Dr: Yelena Aldana STUDY: X-RAY - ABDOMEN/PELVIS REASON FOR EXAM: Female, 73 years old. Right upper quadrant pain. TECHNIQUE: Two AP supine views of the abdomen and pelvis. COMPARISON: Ultrasound dated 11/10/2018. FINDINGS: There is no bowel obstruction. There is a large amount of stool in the colon, consistent with constipation. There are surgical clips noted in the left lower quadrant. The visualized osseous structures are within normal limits. RAD/Abdomen Single View IMPRESSION: No bowel obstruction. Constipation. Electronically Signed: Vinay Tapia, at 16:21 EDT Tel , Service support , CC: ELI Allen DO Spark Plug Tester: Signed Yelena Aldana Work Phone: Start: 12-21-2018 End: 12-22-2018 Chest PA and Lateral Comments: See Note; NOTES: [facility] [address] [place] [address] Chest PA and Lateral MR#: [id number] Acct: [id number] Name: MARINA MORAES Rep #: [id number] : 1945 F 73 From: Rafal Chao DO PCP: Dot Allen DO Status: REG CLI Study: Chest PA and Lateral Date of Exam: 12/21/18 Exam# [id number] Ordering Dr: Yelena Aldana ADDENDUM by Vinay Tapia MD on 12/22/18 at 5833 ADDENDUM Case discussed with Yelena Aldana ([facility]). Comparison was made with the study dated 12/13/2018. There is currently a [id number] pleural effusion which is worse than compared with the postthoracentesis film on 12/13/2018. There is no x-ray available from immediately before the thoracentesis. However, there is an ultrasound of the chest performed during the thoracentesis procedure. It is felt that the current diffusion is not as big as the effusion which was demonstrated on the thoracentesis ultrasound. Electronically Signed: Vinay Tapia, at 15:45 EDT Tel , Service support , 12/22/18 6370 Date cc: ELI Aldana; Dot Allen DO * Signed ADDENDUM by Vinay Tapia MD on 10/02/19 at 1545 RAD/Chest PA and Lateral 12/22/18 1552 Date cc: ELI Aldana; Dot Allen DO * Signed STUDY: X-RAY CHEST REASON FOR EXAM: Female, 73 years old. Fluid in the lungs TECHNIQUE: PA and lateral views of the chest. COMPARISON: 12/13/2018 FINDINGS: Increased right lower lobe effusion. Stable COPD. Lungs are otherwise clear. Normal size heart. Normal mediastinum and hazel. Normal visualized pulmonary arteries. Normal visualized aortic arch and descending thoracic aorta. There are diffuse degenerative changes of the visualized thoracic spine. Normal visualized ribs, clavicles, and shoulders. There is no demonstrated abnormality of the visualized soft tissue structures of the upper abdomen. RAD/Chest PA and Lateral IMPRESSION: Increased right basilar effusion Electronically Signed: Rafal Chao DO at 12:59 EDT Tel , Service support , CC: ELI Aldana; Dot Allen DO Spark Plug Tester: Signed Yelena Aldana Work Phone: Start: 12-13-2018 End: 12-13-2018 Chest Insp/Exp 2 View Comments: See Note; NOTES: [facility] [address] [place] [address] Chest Insp/Exp 2 View MR#: [id number] Acct: [id number] Name: MARINA MORAES Rep #: [id number] : 1945 F 73 From: Abhinav Freeman MD PCP: Dot Allen DO Status: REG CLI Study: Chest Insp/Exp 2 View Date of Exam: 12/13/18 Exam# [id number] Ordering Dr: Abhinav Freeman MD STUDY: X-RAY CHEST REASON FOR EXAM: Female, 73 years old. The patient is status post right thoracentesis. TECHNIQUE: AP inspiration and expiration views. COMPARISON: Comparison is made with prior study dated August 31, 2018. FINDINGS: The patient is status post right thoracentesis. Residual mild pleural parenchymal changes at the right lung base. There is no evidence of pneumothorax. Surgical clips are seen in the right axillary region. Incidental note is made of calcific tendinitis of the right rotator cuff. RAD/Chest Insp/Exp 2 View IMPRESSION: Status post right thoracentesis. There is no evidence of pneumothorax. Minimal pleural-parenchymal changes persist at the right lung base. Electronically Signed: Abhinav Freeman, at 11:01 EDT , Service support , CC: Abhinav Freeman MD; Dot Allen DO Spark Plug Tester: Signed Dot Allen Start: 12-13-2018 End: 12-13-2018 Thoracentesis W US Comments: See Note; NOTES: [facility] [address] [place] [address] Thoracentesis W US MR#: [id number] Acct: [id number] Name: MARINA MORAES Rep #: [id number] : 1945 F 73 From: Abhinav Freeman MD PCP: Dot Allen DO Status: REG CLI Study: Thoracentesis W US Date of Exam: 12/13/18 Exam# [id number] Ordering Dr: Apollo Nicholson MD PROCEDURE: ULTRASOUND GUIDED THORACENTESIS. DATE: December 13, 2018. INDICATION: Female, 73 years old. Right pleural effusion PHYSICIAN: Abhinav Freeman M.D. PROCEDURE: The risks, benefits, and alternatives to the procedure were explained to the patient. The specific risks of bleeding, infection, and pneumothorax requiring chest tube insertion were discussed and accepted. Written informed consent was obtained. Ultrasonographic evaluation of the right lower pleural space was carried out. An adequate pocket was identified. The patient was placed in the sitting, upright position. The overlying skin was prepped and draped in sterile fashion. 1% lidocaine was administered subcutaneously for local anesthesia. Under ultrasound guidance, a 5 Solomon Islander thoracentesis needle/catheter system was advanced into the right posterior lower pleural fluid collection. Approximately 950 mL of julita-colored fluid fluid was drained. The catheter was removed, and a sterile dressing was applied. The patient tolerated the procedure well. A chest x-ray was ordered. US/Thoracentesis W US IMPRESSION: Ultrasound-guided right thoracentesis. Electronically Signed: Abhinav Freeman, at 11:13 EDT , Service support , CC: Dot Allen DO; Apollo Nicholson MD Spark Plug Tester: Signed Apollo Nicholson Work Phone: Start: 11-15-2018 End: 11-15-2018 Hepatobilliary Img w/Pharm Int Comments: See Note; NOTES: [facility] [address] [place] [address] Hepatobilliary Img w/Pharm Int MR#: [id number] Acct: [id number] Name: MARINA MORAES Rep #: [id number] : 1945 F 73 From: Marc Gregory DO PCP: Dot Allen DO Status: [facility] Study: Hepatobilliary Img w/Pharm Int Date of Exam: 11/15/18 Exam# [id number] Ordering Dr: Yelena Aldana CUSTOMER OPERATIONS REPRESENTATIVE-C CLINICAL: 73-year-old female with reported history of right upper quadrant abdominal pain and nausea. RADIONUCLIDE HEPATOBILIARY SCINTIGRAPHY COMPARISON: Abdominal ultrasound report 11/10/2018 FINDINGS: Following the intravenous administration of 5.6 mCi of 99m Tc Mebrofenin, hepatobiliary images reveal: 1. Relatively prompt and homogeneous radiopharmaceutical concentration is noted by a normal sized liver. No parenchymal defects are identified. 2. Gallbladder activity is identified at 15 minutes post radiopharmaceutical administration. 3. Small intestinal tract is not visualized during 60 minutes of pre-CCK sequential imaging. Small bowel activity is identified following the administration of cholecystokinin. 4. Washout of the radiopharmaceutical by the hepatic parenchyma appears qualitatively normal. Cholecystokinin (0.02 ug/kg) was administered intravenously over a 30-minute period. The post CCK gallbladder ejection fraction calculated at 20 minutes following Cholecystokinin administration was noted to be 76.0 % (normal greater than 35%). During 30 minutes of post CCK imaging, there is no scintigraphic evidence of reflux of the radiotracer into the common hepatic duct or refilling of the gallbladder. [place]/Hepatobilliary Img w/Pharm Int IMPRESSION: 1. NORMAL 99m Tc Mebrofenin hepatobiliary imaging examination with Cholecystokinin. A. A gallbladder ejection fraction calculated to be greater than 35% following the administration of Cholecystokinin makes the probability of functional hepatobiliary disease (gallbladder and/or sphincter of Oddi dyskinesia) and/or organic hepatobiliary disease (chronic acalculous cholecystitis and/or cystic duct syndrome) to be low. (Hussein Cui et al, Journal of Nuclear Medicine 32:1695, 1991). Electronically Signed: Marc Gregory DO at 23:04 EDT Tel , Service support , CC: ELI Aldana; Dot Allen DO Spark Plug Tester: Signed Yelena Aladna Work Phone: Start: 11-10-2018 End: 11-10-2018 Abdomen Limited Comments: See Note; NOTES: [facility] [address] [place] [address] Abdomen Limited MR#: [id number] Acct: [id number] Name: MARINA MORASE Rep #: [id number] : 1945 F 73 From: Vinay Tapia MD PCP: Dot Allen DO Status: REG CLI Study: Abdomen Limited Date of Exam: 11/10/18 Exam# [id number] Ordering Dr: Yelena Aldana CUSTOMER OPERATIONS REPRESENTATIVE-Calvin STUDY: ABDOMINAL ULTRASOUND - RIGHT UPPER QUADRANT REASON FOR VISIT: Female, 73 years old. Right upper quadrant pain. TECHNIQUE: Ultrasound evaluation of the right upper quadrant was performed with real-time and static doss-scale imaging. TECHNICAL QUALITY: Adequate. COMPARISON: CT dated 08/18/2016 FINDINGS: Incidentally noted is a right pleural effusion. Liver: The liver measures 13.6 cm. There is increased echogenicity consistent with fatty infiltration. The bile ducts are within normal limits. There is hepatic color flow. The direction of portal flow is hepatopetal. There is no demonstrated mass lesion. Gallbladder: Normal distended gallbladder. The gallbladder wall measures 2 mm. There is a negative sonographic Lim's sign. There is no pericholecystic fluid. There are no gallstones. There is a 3 mm polyp in the gallbladder. Common Bile Duct (C.B.D.): The common bile duct measures 7 mm. Pancreas: The pancreatic head and body are within normal limits. The pancreatic tail is not well-visualized. There is no demonstrated pancreatic mass or cyst. Right Kidney: Normal size of the right kidney. The right kidney measures 11.2 cm. Normal renal cortex. There is no demonstrated renal mass or cyst. There is no right hydronephrosis. US/Abdomen Limited IMPRESSION: 3 mm polyp in the gallbladder. Otherwise, normal gallbladder. Fatty liver. Incidentally noted is a right pleural effusion. Electronically Signed: Vinay Tapia, at 15:02 EDT Tel , Service support , CC: ELI Aldana; Dot Allen DO Spark Plug Tester: Signed Yelena Aldana Work Phone: Start: 09-17-2018 End: 09-18-2018 Special CXR (Obl/Decub/A/L) Comments: See Note; NOTES: [facility] [facility] [address] [place] [address] Special CXR (Obl/Decub/A/L) MR#: [id number] Acct: [id number] Name: MARINA MORAES Rep #: [id number] : 1945 F 73 From: Parminder Giang MD PCP: Dot Allen DO Status: REG CLI Study: Special CXR (Obl/Decub/A/L) Date of Exam: 09/17/18 Exam# [id number] Ordering Dr: Dot Allen DO STUDY: X-RAY CHEST REASON FOR EXAM: Female, 73 years old. Shortness of breath TECHNIQUE: Left side down decubitus COMPARISON: Dwapv-hlhc-fhwa decubitus same day FINDINGS: There are surgical clips in the right axilla. No airspace consolidation. Blunting of the right costophrenic angle correlates to effusion evident on right decubitus x-ray. No layering effusion on the left side. There is borderline cardiomegaly. Normal mediastinum and hazel. Normal visualized pulmonary arteries. Normal visualized aortic arch and descending thoracic aorta. Normal visualized thoracic spine. Normal visualized ribs, clavicles, and shoulders. There is no demonstrated abnormality of the visualized soft tissue structures of the upper abdomen. RAD/Special CXR (Obl/Decub/A/L) IMPRESSION: 1. NO effusion on the left side. 2. Right pleural effusion described on right chest decubitus x-ray. Electronically Signed: Parminder Giang MD at 14:14 EDT , Service support , CC: Dot Allen DO Spark Plug Tester: Signed Dot Eligio Work Phone: Start: 08-31-2018 End: 08-31-2018 Echocardiogram Complete Comments: See Note; NOTES: [facility] [address] [place] [address] Echo Complete 08/31/18 1253 MR#: [id number] Acct: [id number] Name: MARINA MORAES Rep #: [id number] : 1945 73 From: Dipesh Lang MD Attending Dr: Dipesh Lang MD Status: REG CLI Ordering Dr: Dipesh Lang MD Date: 08/31/18 Location: [facility] Sex: F C Admitted: Reason For Study: Arrhythmia Procedure This was a 2D Doppler, Color Flow transthoracic echocardiogram. Myocardial strain analysis was performed in this exam to aid in the assessment of cardiac function. The study was technically difficult. Exam performed in department. Left Ventricle Normal LV size. Left ventricular systolic function is normal. The estimated ejection fraction is 65 %. The global longitudinal strain = -26 % (normal). No evidence for diastolic dysfunction. No regional wall motion abnormalities noted. Right Ventricle Normal RV size. Normal systolic function. Atria The left atrium is mildly enlarged. Normal right atrium. No doppler evidence for ASD. Mitral Valve There is no mitral annular calcification. Normal mitral valve. Trivial mitral valve insufficiency. Tricuspid Valve Normal tricuspid valve. Trivial tricuspid valve insufficiency. Right ventricular systolic pressure estimated to be 40 mmHg. Aortic Valve Trisinus/trileaflet aortic valve. Mild focal aortic valve thickening. Pulmonic Valve The pulmonic valve is not well visualized. Great Vessels Normal sized aortic root. Pericardium/Pleural No pericardial effusion. MMode/2D Measurements AND Calculations LVIDd: 4.1 cm IVSd: 1.5 cm Ao root diam: 3.0 cm LVIDs: 2.1 cm LVPWd: 1.2 cm LA dimension: 4.0 cm RVDd: 3.2 cm FS: 48.6 % LAV(MOD-bp): 56.8 ml LA A4 area: 20.5 cm2 LAV(MOD-bp) Indexed: 30.8 ml/m2 LAV(MOD-sp2): 48.8 ml LAV(MOD-sp4): 60.5 ml Time Measurements MV dec time: 0.22 sec Doppler Measurements AND Calculations MV E max charissa: 84.9 cm/sec Lat Peak E' Charissa: 13.5 cm/sec Med Peak E' Charissa: 8.6 cm/sec MV A max charissa: 94.4 cm/sec E/E' lat: 6.3 E/E' med: 9.9 MV E/A: 0.90 MV V2 max: 94.4 cm/sec MV P1/2t max charissa: 95.3 cm/sec Ao V2 max: 148.5 cm/sec MV max P.6 mmHg MV P1/2t: 84.1 msec Ao max P.8 mmHg MV V2 mean: 56.2 cm/sec MV dec slope: 332.1 cm/sec2 Ao V2 mean: 97.0 cm/sec MV mean P.5 mmHg MVA(P1/2t): 2.6 cm2 Ao mean P.3 mmHg MV V2 VTI: 28.1 cm Ao V2 VTI: 37.1 cm LV V1 max: 119.7 cm/sec PA V2 max: 95.3 cm/sec TR max charissa: 303.9 cm/sec LV V1 max P.7 mmHg TR max P.9 mmHg LV V1 mean P.6 mmHg LV V1 mean: 75.3 cm/sec LV V1 VTI: 27.7 cm Interpretation Summary The study was technically difficult. Left ventricular systolic function is normal. The estimated ejection fraction is 65 %. The global longitudinal strain = -26 % (normal). The left atrium is mildly enlarged. Trivial mitral valve insufficiency. Trivial tricuspid valve insufficiency. Mild focal aortic valve thickening. Right ventricular systolic pressure estimated to be 40 mmHg. No evidence for diastolic dysfunction. Ordering Physician: Dipesh Lang Referring Physician: Dot Allen M.D. Performed By: Jonathon Kaufman RCS 08/31/18 1401 Date Dipesh Lang MD CC: Dot Allen DO; Dipesh Lang MD Date Dictated: 08/31/18 1253 Date Transcribed: 08/31/18 1401 Spark Plug Tester: Signed Dot Allen Start: 08-31-2018 End: 09-01-2018 Special CXR (Obl//A/L) Comments: See Note; NOTES: [facility] Imaging Services [address] [place] [address] Special CXR (Obl/Decub/A/L) MR#: [id number] Acct: [id number] Name: MARINA MORAES Rep #: [id number] : 1945 F 73 From: Conor Butt MD PCP: Dot Allen DO Status: REG CLI Study: Special CXR (Obl/Decub/A/L) Date of Exam: 08/31/18 Exam# [id number] Ordering Dr: Dipesh Lang MD HISTORY: follow up pleural effusion EXAMINATION/TECHNIQUE: XR Chest Special Views: bilateral decubitus chest 2 views COMPARISON: 2 view chest 08/31/2018 FINDINGS: Small right pleural effusion which layers with decubitus positioning and is free. No significant loculated fluid collections. With left lateral decubitus positioning, no significant right basilar infiltrate or atelectasis is seen. No pneumothorax. Normal heart size. No pleural effusion on the left. Right axillary surgical clips. RAD/Special CXR (Obl/Decub/A/L) IMPRESSION: Small right pleural effusion which is free and not loculated. at 0407 Reported and signed by: Conor Butt MD Electronically Signed: Conor Butt, at 4:06 EDT Tel , Service support , CC: Dot Allen DO; Dipesh Lang MD Spark Plug Tester: Signed Dot Allen Start: 08-31-2018 End: 08-31-2018 Chest PA and Lateral Comments: See Note; NOTES: [facility] Imaging Services [address] [place] [address] [place] [address] Chest PA and Lateral MR#: [id number] Acct: [id number] Name: MARINA MORAES Rep #: [id number] : 1945 F 73 From: Melanie Ulloa MD PCP: Dot Allen DO Status: REG CLI Study: Chest PA and Lateral Date of Exam: 08/31/18 Exam# [id number] Ordering Dr: Apollo Nicholson MD STUDY: X-RAY CHEST REASON FOR EXAM: Female, 73 years old. Follow-up pleural effusion. TECHNIQUE: PA and lateral views of the chest. COMPARISON: July 30, 2018 FINDINGS: There is a stable right pleural effusion. There are surgical clips projecting over the right axilla and right lower hemithorax. There is stable borderline cardiomegaly. Normal mediastinum and hazel. Normal visualized pulmonary arteries. Normal visualized aortic arch and descending thoracic aorta. Normal visualized thoracic spine. Normal visualized ribs, clavicles, and shoulders. There is no demonstrated abnormality of the visualized soft tissue structures of the upper abdomen. RAD/Chest PA and Lateral IMPRESSION: Stable right pleural effusion, cannot exclude associated right basilar atelectasis and/or pneumonia. Stable borderline cardiomegaly. Electronically Signed: Melanie Ulloa MD at 19:19 EDT Tel , Service support , CC: Dot Allen DO; Apollo Nicholson MD Spark Plug Tester: Signed Apollo Nicholson Work Phone: Start: 08-09-2018 End: 08-09-2018 Cardiology Visit Report Comments: See Note; NOTES: [facility] [address] [place] [address] OFFICE VISIT Date of Service: 08/09/18 MR#: [id number] Acct: [id number] Name: MARINA MORAES Rep #: [id number] : 1945 Provider: Dipesh Lang MD Age/Sex: 72/F [place] [facility] [place] Signed HPI HPI History of Present Illness Details: MARINA MORAES, is a 72 F who presents to the office today for for outpatient cardiovascular follow-up. She is being followed for history of PACs, PVCs, and an ectopic atrial tachycardia/SVT. This is superimposed upon a history of hyperlipidemia and hypertension. Overall she states she has been doing well with respect to her underlying ectopy. She does not describe any ongoing issues with classic palpitations or dysrhythmias. There has been no near syncope or syncope. At the same time she does not describe any classic symptoms for angina pectoris. There is been no evidence of CHF or pulmonary edema. There has been no other new cardiac issues or concerns she is aware of. She notes her main concern has been pneumonia. She states she was quite ill but did not require hospitalization. She has been undergoing evaluation care for a pleural effusion. She states there was consideration for a thoracentesis but then it was placed on hold. She is due for a follow-up pulmonology and radiology evaluation. Her most recent chest x-ray from 07/30/2018 was reviewed. She does have a right-sided pleural effusion. Intake Vital Signs08/09/18 Height 4 ft 11 in 08/09/18 Weight: 207 lb 08/09/18 Body Mass Index (BMI) 41.8 08/09/18 Blood Pressure 132/78 H Intake Visit Reasons: 1 Y FU Intern Brand Required: No Accompanied by: Self Allergies Iodinated Contrast- Oral and IV Dye Allergy (Intermediate, Verified 08/09/18 13:46) Rash Sulfa (Sulfonamide Antibiotics) Allergy (Verified 08/09/18 13:46) Rash Medications Calcium Carbonate/Vitamin D3 [Calcium 500+D Tablet Chew] 1 ea PO BID 09/12/15 [History Confirmed 08/09/18] Multivitamin [Daily Multiple Vitamin] 1 ea PO DAILY 09/12/15 [History Confirmed 08/09/18] Omeprazole [Prilosec] 20 mg PO DAILY 09/12/15 [History Confirmed 08/09/18] Venlafaxine XR [Effexor Xr] 37.5 mg PO DAILY 09/12/15 [History Confirmed 08/09/18] Acetaminophen [Tylenol] 1,000 mg PO Q8 #90 tab 10/20/17 [Rx Confirmed 08/09/18] carvedilol 12.5 mg tablet 12.5 mg PO BID #180 tab 08/09/18 [Rx Confirmed 08/09/18] PFSH Medical History SVT (supraventricular tachycardia) (Acute) Premature ventricular contraction (Acute) Premature atrial contractions (Acute) GERD (gastroesophageal reflux disease) (Chronic) Sinus bradycardia (Acute) Palpitations (Acute) Hyperlipidemia (Chronic) Atrial paroxysmal tachycardia (Chronic) Essential (primary) hypertension (Chronic) Breast cancer (Acute) Hiatal hernia (Acute) Surgical History History of left knee replacement (Resolved) History of partial mastectomy of right breast (Chronic) History of breast biopsy (Resolved) History of breast reconstruction (Resolved) History of hernia repair (Resolved 07/2016) History of total hysterectomy (Resolved) History of total right knee replacement (Resolved) Status post wrist surgery (Resolved) Family History Mother CAD (coronary artery disease) Social History Smoking Status: Former smoker alcohol intake: current details: occasional substance use type: does not use ROS Const Const: Positive for fatigue (increased rcovering pneumonia); negative for weakness, frequent falls, excessive sweating, weight gain or weight loss Eyes Eyes: Negative for transient loss of vision, blurry vision or change in vision ENT ENT: Negative for dizziness or balance problems Cardio Chest Pain: No Palpitations: No Edema: None Muscle aches with walking: None Resp Respiratory: Positive for SOB with activity (going upstairs, ambulating long distance) and Cough (productive, white sputum); negative for SOB at rest GI GI: Negative vomiting or vomiting blood/hematemesis : Negative for hematuria Musc Musc: Negative for muscle aches/ myalgia, muscle weakness, joint pain or balance problems Skin Skin: Negative non-healing lesions or rash Neuro Neuro: Negative for dizziness, lightheadedness, orthostatic symptoms, frequent falls, weakness or blurry vision Jose Hematologic/Lymphatic: Negative for easy bleeding Endo Endo: Positive for fatigue (increased rcovering pneumonia); negative for excessive sweating Psych Psych: Negative for anxiety or depression Allergy Allergy/Immunology: Negative for hives, Negative for rash Cardiology Exam Const Appearance: cooperative, healthy appearing, comfortable, no acute distress, well developed and well groomed Nutritional Appearance: overweight Orientation: alert, awake and oriented x3 Head Head: normal to inspection and normocephalic Ears: hearing grossly normal bilaterally Nose: external nose normal Face and Sinus: face symmetric Mouth: oral mucosae normal Teeth and gingiva: fair dentition Eyes Eyelids: eyelids normal Conjunctivae: conjunctivae normal Pupils: PERRL EOM: EOM intact bilaterally Neck Neck: normal visual inspection and full ROM Carotids: normal carotid upstroke Chest Chest inspection: normal inspection of the chest, symmetric chest movement and normal respiratory effort Auscultation: Right: Diminished Base Cardio Palpation: normal PMI Rate: regular rate Rhythm: regular rhythm Heart sounds: S1 normal and S2 normal GI GI: normal to inspection, soft and bowel sounds present Neuro General: alert, awake, oriented x3 and moves all extremities Skin Skin: no rashes or lesions noted Extremities Pulses: Normal: Right Radial Pulse, Left Radial Pulse Lower Extremity Edema: None: Bilateral Musculoskel Musculoskeletal: joint tenderness Psych Psychological: normal affect Assessment AND Plan 1. Premature atrial beat I49.1 Plan At the present time, with respect to her ectopy, she appears to be stable with respect and no acute symptoms or adverse events. She will continue her current beta-colt therapy. 2. Premature ventricular beat I49.3 Plan Again, with respect to her ectopy, she will continue evaluation care as noted above. 3. SVT (supraventricular tachycardia) I47.1 Plan She has had no ongoing symptoms of rapid rates. She will continue her current medical management and follow-up. Orders Orders: 4. Sinus bradycardia R00.1 Plan She does not appear to be markedly bradycardic at this time. She appears to be tolerating her beta-blockers well. She will continue her current therapy and follow-up. 5. Hyperlipidemia, unspecified hyperlipidemia type E78.5 Plan A copy of her most recent lipid labs would be appreciated for continuity of care. 6. Essential (primary) hypertension I10 Plan Her blood pressure appears to be recently well controlled. She will continue medical management. 7. Pleural effusion J90 Plan She does have a right-sided pleural effusion. This may be secondary to her history of pneumonia. At the present time she will undergo an echocardiogram to assess her ventricular size wall motion and systolic function as well as her valvular anatomy and physiology as well as her pericardial space for any concerns of cardiovascular involvement in some way shape or form related to her underlying pleural effusion. Otherwise she will continue to follow with her tomb maker helper for further evaluation and care. Orders Orders: Plan Detail Other Medications Refilled: Additional Comments The above was discussed with her. She was agreeable to this approach. Thank you for allowing me to participate in the care of your patient. Please don't hesitate to call if any issues arise. This note was generated using a voice recognition system and there may be incorrect words, spelling or punctuation that were not noted when reviewing the office note prior to saving. Follow Up 1 Year (PFM) Coding Level of Care Code Off vis,est,level 4 Diagnoses Premature atrial beat I49.1 Premature ventricular beat I49.3 SVT (supraventricular tachycardia) I47.1 Sinus bradycardia R00.1 Hyperlipidemia, unspecified hyperlipidemia type E78.5 Hyperlipidemia type: unspecified Essential (primary) hypertension I10 Pleural effusion J90 Coding Level of Care Code Off vis,est,level 4 Diagnoses Premature atrial beat I49.1 Premature ventricular beat I49.3 SVT (supraventricular tachycardia) I47.1 Sinus bradycardia R00.1 Hyperlipidemia, unspecified hyperlipidemia type E78.5 Hyperlipidemia type: unspecified Essential (primary) hypertension I10 Pleural effusion J90 Supplemental Info Supplemental Information Transthoracic echocardiogram: 12/11/2009 Interpretation Summary Left ventricular systolic function is normal. The estimated ejection fraction is 65 %. The left atrium is mildly enlarged. Mild (1+) mitral valve insufficiency. Mild tricuspid valve insufficiency. Right ventricular systolic pressure estimated to be 25 mmHg. Stress test: 12/11/2009 MYOCARDIAL PERFUSION SCAN TECHNIQUE The patient was injected with 12.3 mCi of Tc:99m Cardiolite and subsequently rest SPECT Cardiolite nuclear imaging was obtained in the horizontal long, vertical long, and short axes views. The patient exercised on a Abiel protocol for 5 minutes achieving a peak heart rate of 144 beats per minute (91% predicted maximum heart rate) with a peak blood pressure of 180/90 mmHg and a peak MET capacity of 7 METs. The patient was injected with 34.a mCi of Tc99rn Cardiolite and subsequently stress SPECT Ca rdioiite nuc:lear imaging was obta med in the horizontal long, vert ica] I onq, and short axes views. Dated Cardiolite study was not performed. INTERPRETATION Rest and stress SPECT Cardiolite nuclear imaging demonstrate areas of diminished to absence of tracer uptake in portions of the mid to distal anterior/anteroseptal segments. This is without significant change between rest and stress. There are similar type findings on the resting and stress polar map images. A gated Cardiolite study at peak exercise was not obtained. The aforementioned chanqes appear compatible with soft Li ssue/hreasr attenuation, however, an element of previous myocardial injury/ Ln fa rct ion cannot he excluded. There are no myocardial perfusion changes consi de red diagnostic for stress induced myocardial ischemia. IMPRESSION 1. Rest and stress SPECT Cardiolite nuclear imaging demonstrate myocardial perfusion changes appearing compatible with soft tissue/breast attenuation, however, an element of previous myocardial injury/infarction cannot be excluded. There are no myocardial perfusion changes considered diagnostic for stress induced myocardial ischemia. 2. A gated Cardiolite study at peak stress was not obtained. Holter monitor: 06-03-10 NORMAL SINUS RHYTHM MINIMUM HR 56 8PM AT 4;46:5O AM WHILE ASLEEP. AVERAGE HR 71 8PM MAXIMUM HR 117 8PM AT 5:53:36 PM WHILE VOLUNTEERING, NO SYMPTOM RECORDED. RARE ISOLATED PREMATURE ATRIAL COMPLEXES. ONE 6 BEAT RUN OF PROBABLE ECTOPIC ATRIAL TACHYCARDIA RATE 143 8PM AT 4:42:52 PM. NO FURTHER RUNS NOTED. NO ISOLATED PREMATURE VENTRICULAR COMPLEXES. NO SYMPTOMS DOCUMENTED IN 24 HOUR IIOLTER DIARY Labs LDL Cholesterol 120 mg/dL (0-130) 12/05/14 HDL Cholesterol 47 mg/dL (40-) 12/05/14 Triglycerides 131 mg/dL (-199) 12/05/14 VLDL Cholesterol 26 mg/dL (5-40) 12/05/14 Diagnostics Electrocardiogram 10/19/17 Chest X-Ray 07/30/18 08/09/18 2558 <Electronically signed by Dipesh Lang MD> Date Dipesh Lang MD Cosigner Signature: Date (if applicable) CC: Dot Allen DO Dot Allen Start: 07-30-2018 End: 07-30-2018 Chest PA and Lateral Comments: See Note; NOTES: [facility] [address] [place] [address] Chest PA and Lateral MR#: [id number] Acct: [id number] Name: MARINA MORAES Rep #: [id number] : 1945 F 72 From: Nancy Moya MD PCP: Dot Allen DO Status: REG CLI Study: Chest PA and Lateral Date of Exam: 07/30/18 Exam# [id number] Ordering Dr: Apollo Nicholson MD STUDY: X-RAY CHEST REASON FOR EXAM: Female, 72 years old. Pleural effusion TECHNIQUE: PA and lateral views of the chest. COMPARISON: July 05, 2018 minutes a chest x-ray, July 14, 2018 Thoracentesis chest ultrasound FINDINGS: There is partial opacification of the right lower lobe. Blunting of the right costophrenic angle. Postoperative changes in the right axilla. There is borderline cardiomegaly. Normal mediastinum and hazel. Normal visualized pulmonary arteries. Normal visualized aortic arch and descending thoracic aorta. There are diffuse degenerative changes of the visualized thoracic spine. Normal visualized ribs, clavicles, and shoulders. There is no demonstrated abnormality of the visualized soft tissue structures of the upper abdomen. RAD/Chest PA and Lateral IMPRESSION: Moderate volume right effusion. Right lower lobe atelectasis. This is persistent since prior study dated July 01, 2018 CT chest. There is postoperative change in the right axilla and right breast soft tissues status post axillary dissection and probable lumpectomy breast cancer history. Given the history. Consider possible metastatic effusion. Electronically Signed: Nancy Moya MD at 14:11 EDT Tel , Service support , CC: Dot Allen DO; Apollo Nicholson MD Spark Plug Tester: Signed Apollo Nicholson Work Phone: Start: 07-14-2018 End: 07-14-2018 Chest Comments: See Note; NOTES: [facility] Services [address] [place] [address] Chest MR#: [id number] Acct: [id number] Name: MARINA MORAES Rep #: [id number] : 1945 F 72 From: Segun Son MD PCP: Dot Allen DO Status: REG CLI Study: Chest Date of Exam: 07/14/18 Exam# [id number] Ordering Dr: Apollo Nicholson MD Procedure: Sonographic survey to evaluate for size of pleural effusion in anticipation of ultrasound-guided thoracentesis. Concent: Unknown. Physician: Bharat. Date of procedure July 14, 2018. FINDINGS: Survey images of the right and left lung bases are submitted. There is a small quantity of bibasilar, uncomplicated pleural fluid. US/Chest IMPRESSION: There is not enough pleural fluid to safely perform a thoracentesis. Procedure not performed. Comment: Sonographic imaging services provided for clinical procedure. Please refer to operating physician's procedure note for additional detail. Electronically Signed: Segun Son MD at 11:59 EDT , Service support , CC: Dot Allen DO; Apollo Nicholson MD Spark Plug Tester: Signed Apollo Nicholson Work Phone: Start: 07-05-2018 End: 07-05-2018 Special CXR (Obl/Decub/A/L) Comments: See Note; NOTES: [facility] Services [address] [place] [address] Special CXR (Obl/Decub/A/L) MR#: [id number] Acct: [id number] Name: MARINA MORAES Rep #: [id number] : 1945 F 72 From: Abhinav Freeman MD PCP: Dot Allen DO Status: REG CLI Study: Special CXR (Obl/Decub/A/L) Date of Exam: 07/05/18 Exam# [id number] Ordering Dr: Dot Allen DO STUDY: X-RAY CHEST REASON FOR EXAM: Female, 72 years old. History of pleural effusion. TECHNIQUE: Right and left decubitus views. COMPARISON: None. FINDINGS: No significant free flowing pleural effusion is seen. RAD/Special CXR (Obl/Decub/A/L) IMPRESSION: No free flowing pleural effusion is seen. Electronically Signed: Abhinav Freeman, at 10:56 EDT , Service support , CC: Dot Allen DO Spark Plug Tester: Signed Dot Allen Work Phone: Start: 07-01-2018 End: 07-01-2018 CTA Chest W/WO Contrast Comments: See Note; NOTES: [facility] Services [address] [place] [address] CTA Chest W/WO Contrast MR#: [id number] Acct: [id number] Name: MARINA MORAES Rep #: [id number] : 1945 F 72 From: Lily Cramer MD PCP: Dot Allen DO Status: REG CLI Study: CTA Chest W/WO Contrast Date of Exam: 07/01/18 Exam# [id number] Ordering Dr: Dot Allen DO STUDY: CTA CHEST REASON FOR EXAM: Female, 72 years old. SOB. Right breast CA. RADIATION DOSAGE (If Supplied By Facility): CTDIvol = ( 13.45 ) mGy, DLP = ( 469.60 ) mGycm TECHNIQUE: The examination was performed with the intravenous administration of 100CC IV Isovue 370. Post-processing of the angiographic images was performed, with multiplanar reformation and 3D reconstruction. Individualized dose optimization techniques were used for this CT. COMPARISON: None. FINDINGS: The heart and pericardium are normal. The aorta is normal in caliber, with no aneurysm or dissection. There is no mediastinal mass or adenopathy. There is no hilar or axillary adenopathy. There is no evidence of pulmonary embolus. Pulmonary arteries are unremarkable. There is a moderate right pleural effusion. There is no pulmonary consolidation. There is a 7 x 5 mm nodular density at the intersection of the right minor and major fissures. No additional pulmonary nodule is noted. Fibrotic atelectatic changes are noted in the lingula. There is compressive atelectasis in the right lung base. Visualized abdomen is unremarkable. There is no osseous abnormality. Surgical clips in the right axilla are consistent with lymph node dissection. There are multiple calcifications in the right breast, nonspecific. CT/CTA Chest W/WO Contrast IMPRESSION: 1. No pulmonary embolus or aortic dissection. 2. Right pleural effusion. 3. A 7 mm right pulmonary nodule, possibly fibrotic. Given the history of primary malignancy, 3-6 month follow-up is advised. 4. Right breast calcifications, nonspecific but possibly associated with the patient's known carcinoma. Electronically Signed: Lily Cramer MD at 17:11 EDT Tel , Service support , CC: Dot Allen DO Spark Plug Tester: Signed Dot Allen Work Phone: Start: 07-30-2017 End: 07-30-2017 Cardiology Visit Report Comments: See Note; NOTES: [facility] [place] [address] OFFICE VISIT Date of Service: 07/30/17 MR#: [id number] Acct: [id number] Name: MARINA MORAES Rep #: [id number] : 1945 Provider: Dipesh Lang MD Age/Sex: 71/F Location: [facility] [place] Status: Signed HPI HPI Details: MARINA MORAES, is a 71 F who presents to the office today for for outpatient cardiovascular follow-up. Her last visit to the office was on 12/10/2015. She is being followed for history of PACs, PVCs, and an ectopic atrial tachycardia/SVT. This is superimposed upon a history of hyperlipidemia and hypertension. Overall she states she has been doing well with respect to her underlying ectopy. She does not describe any ongoing issues with classic palpitations or dysrhythmias. There has been no near syncope or syncope. At the same time she does not describe any classic symptoms for angina pectoris. There is been no evidence of CHF or pulmonary edema. There has been no other new cardiac issues or concerns she is aware of. She states that her main concern is her left knee. She is undergoing evaluation and care for it. She believes this is going to result in a left knee replacement surgery at some point in time and the Intake Vital Signs07/30/17 Height 4 ft 11 in 07/30/17 Weight: 214 lb 07/30/17 Body Mass Index (BMI) 43.2 07/30/17 Blood Pressure 138/80 Intake Visit Reasons: overdue for FU to refill meds Allergies Iodinated Contrast- Oral and IV Dye Allergy (Intermediate, Verified 07/30/17 14:40) Rash Sulfa (Sulfonamide Antibiotics) Allergy (Verified 07/30/17 14:40) Rash Medications Calcium Carbonate/Vitamin D3 [Calcium 500+D Tablet Chew] 1 ea PO BID 09/12/15 [History Confirmed 07/30/17] Multivitamin [Daily Multiple Vitamin] 1 ea PO DAILY 09/12/15 [History Confirmed 07/30/17] Omeprazole [Prilosec] 20 mg PO DAILY 09/12/15 [History Confirmed 07/30/17] Venlafaxine XR [Effexor Xr] 37.5 mg PO DAILY 09/12/15 [History Confirmed 07/30/17] carvedilol 12.5 mg tablet 12.5 mg PO BID #180 tab 07/02/17 [Rx Confirmed 07/30/17] acetaminophen 325 mg capsule 650 mg PO Q6H cap 07/30/17 [History Confirmed 07/30/17] naproxen sodium 220 mg capsule 440 mg PO QDAY cap 07/30/17 [History Confirmed 07/30/17] PFSH Medical History SVT (supraventricular tachycardia) (Acute) Premature ventricular contraction (Acute) Premature atrial contractions (Acute) GERD (gastroesophageal reflux disease) (Chronic) Sinus bradycardia (Acute) Palpitations (Acute) Hyperlipidemia (Chronic) Atrial paroxysmal tachycardia (Chronic) Essential (primary) hypertension (Chronic) Breast cancer (Acute) Hiatal hernia (Acute) Surgical History History of partial mastectomy of right breast (Chronic) History of breast biopsy (Resolved) History of breast reconstruction (Resolved) History of hernia repair (Resolved 07/2016) History of total hysterectomy (Resolved) History of total right knee replacement (Resolved) Status post wrist surgery (Resolved) Family History Mother CAD (coronary artery disease) Social History Smoking Status: Former smoker alcohol intake: current details: occasional substance use type: does not use ROS Const Const: Negative for fatigue, weakness, weight gain, weight loss, frequent falls or excessive sweating Eyes Eyes: Negative for change in vision, blurry vision or transient loss of vision ENT ENT: Positive for balance problems (due to left knee pain); negative for dizziness Cardio Chest Pain: No Palpitations: Yes (occasional) feels like its: irregular Edema: None Muscle aches with walking: Left (left knee pain) Resp Respiratory: Positive for SOB with activity (breathing at baseline); negative for SOB at rest GI GI: Negative vomiting or vomiting blood/hematemesis : Negative for hematuria Musc Musc: Positive for balance problems (due to left knee pain), muscle aches/ myalgia (generalized) and joint pain (left knee); negative for muscle weakness Skin Skin: Negative non-healing lesions or rash Neuro Neuro: Negative for weakness, blurry vision, dizziness, lightheadedness, frequent falls or orthostatic symptoms Jose Hematologic/Lymphatic: Negative for easy bleeding Endo Endo: Negative for fatigue or excessive sweating Psych Psych: Negative for anxiety or depression Allergy Allergy/Immunology: Negative for hives, Negative for rash Cardiology Exam Const Appearance: cooperative, healthy appearing, comfortable, no acute distress, well developed and well groomed Nutritional Appearance: overweight Orientation: alert, awake and oriented x3 Head Head: normal to inspection and normocephalic Ears: hearing grossly normal bilaterally Nose: external nose normal Face and Sinus: face symmetric Mouth: oral mucosae normal Teeth and gingiva: fair dentition Eyes General: appearance normal, both eyes and all related structures Eyelids: eyelids normal Conjunctivae: conjunctivae normal Pupils: PERRL EOM: EOM intact bilaterally Neck Neck: normal visual inspection and full ROM Carotids: normal carotid upstroke Chest Chest inspection: normal inspection of the chest and symmetric chest movement Auscultation: Bilateral: Clear to Auscultation Cardio Palpation: normal PMI Rate: regular rate Rhythm: regular rhythm Heart sounds: S1 normal and S2 normal GI GI: normal to inspection, soft, no hepatosplenomegaly and bowel sounds present Neuro General: alert, awake and oriented x3 Skin Skin: no rashes or lesions noted Extremities Pulses: Normal: Right Radial Pulse, Left Radial Pulse Lower Extremity Edema: None: Bilateral Musculoskel Musculoskeletal: joint tenderness Psych Psychological: normal affect Supplemental Info She did have a transthoracic echocardiogram performed on 12/11/2009. The results are as noted below. Left ventricular systolic function is normal. The estimated ejection fraction is 65 %. The left atrium is mildly enlarged. Mild (1+) mitral valve insufficiency. Mild tricuspid valve insufficiency. Right ventricular systolic pressure estimated to be 25 mmHg. She also had a stress test performed on 12/11/2009. At that time she exercised on a Abiel protocol for 5 minutes achieving 91% predicted maximal heart rate with a peak blood pressure of 180/90 mmHg and a peak metabolic equivalent of 7 metabolic equivalents. She had no obvious ECG changes. She had a rare PAC pretest and during recovery. Her nuclear images demonstrated myocardial perfusion changes appearing compatible soft tissue/breast attenuation although an element of previous myocardial injury/infarction cannot be excluded. There were no myocardial perfusion changes consider diagnostic for stress-induced myocardial ischemia. He had a 24-hour Holter monitor performed on 05/28/2010. The results are as noted below. NORMAL SINUS RHYTHM MINIMUM HR 56 8PM AT 4;46:5O AM WHILE ASLEEP. AVERAGE HR 71 8PM MAXIMUM HR 117 8PM AT 5:53:36 PM WHILE VOLUNTEERING, NO SYMPTOM RECORDED. RARE ISOLATED PREMATURE ATRIAL COMPLEXES. ONE 6 BEAT RUN OF PROBABLE ECTOPIC ATRIAL TACHYCARDIA RATE 143 8PM AT 4:42:52 PM. NO FURTHER RUNS NOTED. NO ISOLATED PREMATURE VENTRICULAR COMPLEXES. NO SYMPTOMS DOCUMENTED IN 24 HOUR IIOLTER DIARY Assessment AND Plan 1. Premature atrial beat I49.1 Plan At the present time she appears to be doing well with her underlying ectopy. She is not describing any ongoing symptoms. She will continue her beta-colt therapy. 2. Premature ventricular beat I49.3 Plan Again she appears to be doing well without any ongoing symptoms of ectopy or dysrhythmia. She will continue her beta-colt therapy. 3. SVT (supraventricular tachycardia) I47.1 Plan There is been no obvious recurrence of her supraventricular tachydysrhythmias. She will continue her beta-colt therapy. 4. Hyperlipidemia, unspecified hyperlipidemia type E78.5 Plan She states her lipid labs have been followed by her primary care physician. A copy would be appreciated for continuity of care. 5. Essential (primary) hypertension I10 Plan Her blood pressure appears reasonably well controlled today. She will continue her current medical management. Plan Detail Other Medications Discontinued: oxycodone-acetaminophen 5-325 mg Discontinued Reason: 1 - 2 tabs PO Q4H PRN PRN Pain Pt no longer taking Additional Comments She will be scheduled for an outpatient visit approximately 1 year unless needed sooner. Thank you for allowing me to participate in the care of your patient. Please don't hesitate to call if any issues arise. This note was generated using a voice recognition system and there may be incorrect words, spelling or punctuation that were not noted when reviewing the office note prior to saving. Follow Up 1 Year (PFM) Coding Level of Care Code Off vis,est,level 3 Diagnoses Premature atrial beat I49.1 Premature ventricular beat I49.3 SVT (supraventricular tachycardia) I47.1 Hyperlipidemia, unspecified hyperlipidemia type E78.5 Hyperlipidemia type: unspecified Essential (primary) hypertension I10 Coding Level of Care Code Off vis,est,level 3 Diagnoses Premature atrial beat I49.1 Premature ventricular beat I49.3 SVT (supraventricular tachycardia) I47.1 Hyperlipidemia, unspecified hyperlipidemia type E78.5 Hyperlipidemia type: unspecified Essential (primary) hypertension I10 07/30/17 1524 <Electronically signed by Dipesh Lang MD> Date Dipesh Lang MD Cosigner Signature: Date (if applicable) CC: Dot Lala Start: 10-23-2016 End: 10-30-2016 Dexa Bone Density Study (HP) Comments: See Note; NOTES: [facility] Imaging Services [address] [address] Dexa Bone Density Study (HP) MR#: [id number] Acct: [id number] Name: MARINA MORAES Rep #: [id number] : 1945 F 71 From: Abhinav Freeman MD PCP: Dot Allen DO Status: [facility] Study: Dexa Bone Density Study (HP) Date of Exam: 10/23/16 Exam# [id number] Ordering Dr: Dot Allen DO STUDY: DUAL ENERGY X-RAY ABSORPTIOMETRY / DXA REASON FOR EXAM: Female, 71 years old. The patient is postmenopausal. Loss of height. TECHNIQUE: Bone Mineral Density (BMD) measurements of lumbar spine and bilateral hips were obtained. COMPARISON: None. FINDINGS: Lumbar Spine (L1-L4): g/cm2 (1.223) / T-score (0.5) / Z-score (2.1) Findings are suggestive of normal bone density with a low fracture risk. Left Femur Total: g/cm2 (0.910) / T-score (-0.8) / Z-score (0.6) Left Femoral Neck: g/cm2 (0.811) / T-score (-1.6) / Z-score (0.0) Right Femur Total: g/cm2 (0.911) / T-score (-0.8) / Z-score (0.6) Right Femoral Neck: g/cm2 (0.813) / T-score (-1.6) / Z-score (0.0) HPBD/Dexa Bone Density Study (HP) IMPRESSION: The patient is considered osteopenic as outlined below according to World Diomedes Organization (WHO) criteria with a moderate fracture risk. Reference Information: The T-score is the number of standard deviations above or below the standard which is normal for young adults at their peak bone mineral density. The World Health Organization (WHO) interprets the T-scores as follows: Above -1 Normal bone density Between -1 and -2.5 Osteopenia Equal to / or below -2.5 Osteoporosis As a practical clinical guideline, osteopenia may be graded as follows: Mild -1 through -1.5 Moderate -1.6 through -2.0 Severe -2.1 through -2.4 The Z-score is the number of standard deviations above or below age-matched controls. A Z-score of less than -1.5 would be considered abnormal. References: 1. NIH Osteoporosis and Related Bone Diseases http://www.osteo.org 2. International Society for Clinical Densitometry http://www.iscd.org 3. National Osteoporosis Foundation http://www.nof.org Electronically Signed: Abhinav Freeman MD at 16:05 EDT Tel [phone], Service support , CC: Dot Allen DO Spark Plug Tester: Signed Dot Allen Work Phone: Start: 10-23-2016 End: 10-27-2016 SCREENING MAMM (CAD), BILAT Comments: See Note; NOTES: [facility] Imaging Services [address] [place] [address] SCREENING MAMM (CAD), BILAT MR#: [id number] Acct: [id number] Name: MARINA MORAES Rep #: [id number] : 1945 F 71 From: Abhinav Freeman MD PCP: Dot Allen DO Status: REG CLI Study: SCREENING MAMM (CAD), BILAT Date of Exam: 10/23/16 Exam# [id number] Ordering Dr: Dot Allen DO MAMMOGRAPHY - BILATERAL SCREENING REASON FOR EXAM: Female, 71 years old. Routine annual screening examination. PERTINENT HISTORY: Personal history of breast cancer. Grandmother with breast cancer. Aunt with breast cancer. TECHNIQUE: Digital bilateral breast yariel (3D mammographic acquisition) in the CC and MLO projections. 2-D mediolateral oblique (MLO) and craniocaudad (CC) views of both breasts were obtained. CAD: Full Field Digital Mammography with Computer Added Detection was performed. COMPARISON: Comparison is made with prior outside examination dated June 20, 2014. FINDINGS: Breast Composition: The patient is status post right lumpectomy with resultant postoperative scarring and deformity of the breast in the deep upper outer portion of the breast. Calcifications are seen at the operative site. These F progressed as compared to prior study. Small lymph nodes are seen in the left axillary region. There are no dominant masses or suspicious calcifications. No other significant abnormalities are identified. HPBI/SCREENING MAMM (CAD), BILAT IMPRESSION: Stable bilateral screening mammogram. Yearly follow-up mammogram recommended. (A) ASSESSMENT CATEGORY: BIRADS Category 2: Benign. A letter regarding these results will be sent to the patient by the facility within 30 days. Approximately 10% of breast cancers are not detected by mammography. A normal mammogram should not delay biopsy of a clinically suspicious abnormality. [id number] Electronically Signed: Abhinav Freeman MD at 9:18 EDT Tel [phone], Service support , CC: Dot Allen DO Spark Plug Tester: Signed Dot Allen Work Phone: Start: 08-21-2016 End: 08-21-2016 12 lead ECG Comments: See Note; NOTES: [facility] Cardiovascular Services [address] [place] [address] 12 Lead EKG 08/18/16 133 MR#: [id number] Acct: [id number] Name: MARINA MORAES Rep #: [id number] : 1945 70 From: Dipesh Lang MD Attending Dr: Jake Rutledge MD Status: DEP [facility] Ordering Dr: Angelo Fisher MD Date: 08/18/16 Location: [facility] Sex: F C Admitted: Test Reason : Blood Pressure : / mmHG Vent. Rate : 084 BPM Atrial Rate : 084 BPM P-R Int : 220 ms QRS Dur : 104 ms QT Int : 404 ms P-R-T Axes : 056 041 023 degrees QTc Int : 477 ms Sinus rhythm with 1st degree A-V block Otherwise normal ECG Confirmed by PRECIOUS CAMPOS, DIPESH ([id number]), news videotape editor GIRISH FREY ([id number]) on 08/21/2016 3:58:49 PM Referred By: Confirmed By:DIPESH LANG MD 08/21/16 1558 Date Dipesh Lang MD CC: Dot Allen DO Date Dictated: 08/18/161330 Date Transcribed: 08/18/161330 Spark Plug Tester: Signed Dot Allen Start: 08-20-2016 End: 08-20-2016 History and Physical Exam Comments: See Note; NOTES: [facility] Medical Records Department [address] [place] [address] History and Physical 08/18/16 1355 MR#: [id number] Acct: [id number] Name: MARINA MORAES Rep #: [id number] : 1945 70 From: Jake Rutledge MD PCP: Dot Allen DO Status: [facility] Location: [facility] DATE OF SERVICE: 08/18/2016 HISTORY OF PRESENT ILLNESS: This is a 70-year-old female who presents to the emergency department with nausea, vomiting, and abdominal pain. She has had 6 episodes of vomiting, came on all of a sudden, started yesterday, increasing in nature, noticed a bulge in her left lower groin area. PAST MEDICAL HISTORY: Significant for GERD and hypertension. PAST SURGICAL HISTORY: Hysterectomy. She has had a knee surgery. Left breast surgery for cancer. MEDICATIONS: Include Effexor, Prilosec, Coreg, and multivitamins. ALLERGIES: Sulfa. REVIEW OF SYSTEMS: General: No subjective chills or fevers. Eyes: No visual changes. ENT: No ear pain. CVS: No chest pains, heart palpitations, or heart racing. Respiratory: No dyspnea, cough, or sputum production. GI: Per HPI. : No dysuria or hematuria. Musculoskeletal: No myalgias or arthralgias. Skin: No rash or abrasions. Neurologic: No headaches or paresthesias. Does complain of some weakness. Psychiatric: Does have some depression. PHYSICAL EXAMINATION: VITAL SIGNS: Blood pressure is 155/100, temperature 97.1, heart rate 99, respiratory rate is 16. GENERAL: Obese white female, in no acute distress. HEENT: Benign. LUNGS: Clear. HEART: Regular rate. ABDOMEN: Palpable irreducible mass in the left lower groin area, most likely consistent with previous incisional hernia from her previous hysterectomy. EXTREMITIES: No clubbing, cyanosis, or edema. LABORATORY DATA: WBC is 12.5, hemoglobin is 15.2, hematocrit 46.1, platelets are 364,000. Sodium is 144, potassium 3.6, chloride 106, bicarb 30, BUN is 14, creatinine is 0.79. CAT scan shows an incarcerated hernia in the left lower quadrant consistent with an incarcerated left incisional hernia. ASSESSMENT: Incarcerated left incisional hernia. PLAN: Perform a laparoscopic reduction ____ laparoscopic repair. Risks and benefits have been reviewed with the patient and the patient agrees to proceed. Jake Rutledge MD C C: Angelo Fisher MD T: NTS JOB: [id number] 08/20/16 1705 <Electronically signed by Jake Rutledge MD> Date: Time: Jake Rutledge MD CC: Jake Rutledge MD; Dot Allen DO; Angelo Fisher MD Date Dictated: 08/18/16 135 Date Transcribed: 08/18/161354 Spark Plug Tester: Signed ____ I have re-examined the patient. There are no clinical changes since date of exam. ____ See Progress Notes for Changes ____ Dictated on Admission Date: Time: Signature: Dot Allen Start: 08-20-2016 End: 08-20-2016 Operative Report Comments: See Note; NOTES: [facility] Medical Records Department [address] [place] [address] Operative Report MR#: [id number] Acct: [id number] Name: MARINA MORAES Rep #: [id number] : 1945 70 From: Jake Rutledge MD PCP: Dot Allen DO Status: [facility] DATE OF SERVICE: 08/18/2016 DATE OF SERVICE: 08/18/2016 PREOPERATIVE DIAGNOSIS: Incarcerated incisional hernia. POSTOPERATIVE DIAGNOSIS: Incarcerated incisional hernia. PROCEDURE: Laparoscopic repair of incarcerated incisional hernia. SURGEON: Jake Rutledge M.D. ANESTHESIA: Endotracheal intubation with Dr. Carlin Adams. ESTIMATED BLOOD LOSS: Less than 25 mL. FLUID REPLACEMENT: About 1 L of crystalloid. ASA: IIIE. DESCRIPTION OF PROCEDURE: The patient was brought into the operating room, placed in supine position. Under excellent general endotracheal intubation, Zuniga catheter was placed. The abdomen was sterilely prepped and draped in usual fashion. Local was injected supraumbilically. Curvilinear incision was made. Dissection was carried down to the fascia. The fascia was grasped with the Manjula. Veress needle was placed inside the abdomen. The abdomen was insufflated to 15 torr. A 10/12 trocar was placed without difficulty. It was flanked by two #5 trocars placed under direct visualization without injury to underlying structures. The patient had a left incisional hernia down where her previous Pfannenstiel incision was located. At the time of when the abdomen was inflated and I got my trocars in, the bowel had come out. I inspected the bowel. It looked pink and it did not look like it was in trouble at all. I decided to remove the rest of the omentum, which was adherent into the hernia sac. I pulled this through, used electrocautery just on the edges of the hernia sac and brought the omentum into the abdominal cavity without difficulty. I scored the peritoneum, dissected down to Jose A's ligament, dissected laterally, dissected out the round ligament, placed Hem-o-Donald clips proximally and distally on the round ligament, ____ ligament, dissected further laterally until I got to the hernia. I then dissected the hernia and the hernia sac back into the abdominal cavity without difficulty. I then fashioned. I then dissected further laterally to make sure that I had enough to place a large piece of mesh in. I fashioned a large mesh into the wound. I tacked it to Jose A's ligament with a ProTacker. I tacked it superiorly and laterally with extra tack superiorly to where the hernia defect was located. I then reperitonealized every area covering this mesh completely and without difficulty. Ilioinguinal nerve block was performed. Before removing the trocars under direct visualization, I did inspect the bowel one more time. It looked nice, pink, viable and had peristalsis. Removed the trocars under direct visualization. Good hemostasis was noted. I closed the fascia of the umbilical port with [id number] stitch of 0 Vicryl. Skin incisions were closed with subcuticular stitches of 4-0 Monocryl. Steri-Strips were applied. Sterile dressings were applied and the patient tolerated the procedure well. Jake Rutledge MD T: NTS JOB: [id number] 08/20/16 1705 <Electronically signed by Jake Rutledge MD> Date Jake Rutledge MD Cosigner Signature (If Indicated): Date CC: Jake Rutledge MD; Dot Allen DO Date Dictated: 08/18/161554 Date Transcribed: 08/18/161554 Spark Plug Tester: Signed Dot Allen Start: 08-18-2016 End: 08-18-2016 Discharge Instruction Comments: See Note; NOTES: [facility] Medical Records Department [address] [place] [address] Instructions for Home/Discharge Instructions 08/18/16 1542 MR#: [id number] Acct: [id number] Name: MARINA MORAES Rep #: [id number] : 1945 70 From: Jake Rutledge MD PCP: Dot Allen DO Status: REG [facility] [place] Discharge Diet: Light diet - advance as tolerated Discharge Activity: Return to Normal Activity, May Drive - when you are no longer taking narcotic pain medications., May Shower - with the bandage in place 1-2 days after surgery. Lifting Restrictions: 20 pounds for 8 weeks. Additional Activity Instructions:: Climbing stairs is fine, walking is encouraged. Sitting in bed may be uncomfortable. Sitting up using your lateral muscles (sitting up sideways) is usually more comfortable. Do not drive, work heavy equipment of sign legal documents for 24 hours. If your hernia repair was an ingunial repair, you may have scrotal swelling, an ice pack and/or athletic support can provide more comfort. Pain medications may cause nausea, you should typically eat light foods as you take your pain medications. Pain medications may also cause constipation. If you have difficulty with this, discuss with your doctor. Call your doctor if your incision/area has: Continuous Slow Oozing, Sudden Increased Bleeding, Increased Pain/ Swelling, Increased Redness, Foul Smelling Discharge Call your doctor if you observe: Fever of 101 or Higher Suture Line Care: Avoid Pulling/Pushing, Avoid Pinching/Bending Additional Dressing/Incision Instructions:: Leave the operative bandage on for 2-3 days. When you remove the bandage, leave the steri-strips on place until your follow up appointment or they fall off. Allergies/Adverse Reactions: Allergies Sulfa (Sulfonamide Antibiotics) Allergy (Verified 08/18/16 10:44) Rash Medications to take at Discharge Calcium Carbonate/Vitamin D3 [Calcium 500+D Tablet Chew] 1 each PO BID 09/12/15 Carvedilol [Coreg (Beta Colt)] 25 mg PO BID 09/12/15 Multivitamin [Daily Multiple Vitamin] 1 each PO DAILY 09/12/15 Omeprazole [Prilosec] 20 mg PO DAILY 09/12/15 Venlafaxine XR [Effexor Xr] 37.5 mg PO DAILY 09/12/15 Oxycodone HCl/Acetaminophen [Percocet 5/325] 1 - 2 tablet PO Q4H PRN PRN #30 tablet 08/18/16 The following prescriptions were given: Oxycodone HCl/Acetaminophen [Percocet 5/325] 1 - 2 tablet PO Q4H PRN PRN #30 tablet PRN Reason: Pain Primary Care Physician: Dot Allen DO [Primary Care Provider] - Please Follow Up With: Jake Rutledge - [phone] When: Plan to have a follow up appointment in 7 days. Call to schedule. 08/18/16 9760 <Electronically signed by Jake Rutledge MD> Date Jake Rutledge MD CC: Dot Lala Start: 08-18-2016 End: 08-18-2016 Emergency Department Summary Comments: See Note; NOTES: [facility] Medical Records Department [address] [place] [address] Emergency Department Summary MR#: [id number] Acct: [id number] Name: AMITAMARINA Rep #: [id number] : 1945 70 From: Angelo Fisher MD PCP: Dot Allen DO Status: REG ER DATE OF SERVICE: 08/18/2016 HISTORY OF PRESENT ILLNESS: The patient is a 70-year-old woman who presents with mass, left lower quadrant over the laparoscopic port site for her hysterectomy with nausea and vomiting. She states she has vomited 6 times since yesterday. She does complain of thirst, dry mouth and lightheadedness. She also reports decreased urination. She has no other complaints. PAST MEDICAL HISTORY: GERD, hypertension, and depression. PAST SURGICAL HISTORY: Hysterectomy, and mastectomy for breast cancer. She states the hysterectomy secondary to abnormal bleeding from the chemotherapy. PRIMARY CARE PHYSICIAN: Dr. Allen. BLEACHER KRAFT PULP: Elena Willett M.D. GENERAL SURGEON: Dr. Olson. SOCIAL HISTORY: She is a former smoker. PHYSICAL EXAMINATION: VITAL SIGNS: Remarkable for an elevated blood pressure of 105/100. HEENT: Remarkable for dry mucosa. HEART: Regular without murmur, gallop or rub. LUNGS: Clear to auscultation. ABDOMEN: Reveals a palpable mass, which is very tender. The hernia is not reducible. Bowel sounds are diminished. She is slightly tympanitic. Remainder of exam is unremarkable. Please see written note. EMERGENCY DEPARTMENT COURSE: Dr. Jake Rutledge was contacted. He requested CAT scan with p.o. and IV contrast. This was ordered and per my read, there is evidence of obstruction secondary to an incarcerated ventral hernia, left lower quadrant. White count is 12.5 thousand with a slight shift. There is no bandemia. Electrolyte panel is unremarkable. The patient received 1 liter of normal saline wide open and 4 mg of Zofran and 4 mg of morphine. IMPRESSION: Obstruction secondary to incarcerated ventral hernia. DISPOSITION: OR. MD Calvin Tian C: Elena Allen DO T: [facility] JOB: [id number] 08/18/16 1407 <Electronically signed by Angelo Fisher MD> Date Angelo Fisher MD Cosigner Signature (If Indicated): Date CC: Elena Willett MD; Jake Rutledge MD; Dot Allen DO Date Dictated: 08/18/16 1323 Date Transcribed: 08/18/161322 Spark Plug Tester: Signed Dot Allen Start: 08-18-2016 End: 08-18-2016 Hernia repair Eloy Kwan Start: 08-18-2016 End: 08-18-2016 Abdomen/Pelvis WITH Contrast Comments: See Note; NOTES: [facility] Imaging Services [address] [place] [address] Verdana 4d Abdomen/Pelvis WITH Contrast MR#: [id number] Acct: [id number] Name: MARINA MORAES Rep #: [id number] : 1945 F 70 From: Mell Frey MD PCP: Dot Allen DO Status: REG ER Study: Abdomen/Pelvis WITH Contrast Date of Exam: 08/18/16 Exam# [id number] Ordering Dr: Angelo Fisher MD STUDY: CT ABDOMEN AND PELVIS WITH CONTRAST REASON FOR EXAM: Female, 70 years old. Left lower quadrant abdominal pain. Suspect incarcerated hernia. RADIATION DOSAGE (If Supplied By Facility): CTDIvol = ( 47.5 ) mGy, DLP = ( 1150.20 ) mGycm TECHNIQUE: Transaxial images were obtained from the dome of the diaphragm to the symphysis pubis without oral contrast. 100CC ml of Isovue 300 contrast was administered. Sagittal and coronal images were reconstructed. Individualized dose optimization techniques were used for this CT. COMPARISON: None. FINDINGS: There is bilateral basilar dependent atelectasis. The visualized heart is mildly enlarged. Appears to be a hiatal hernia containing some fat Normal liver. Normal gallbladder and extrahepatic biliary system. Normal spleen. Normal pancreas. Normal bilateral adrenal glands. Normal right kidney. Normal left kidney. Normal visualized stomach. There is dilated small bowel with maximum transverse dimension of approximately 3.3 cm. This appears to involve the proximal small bowel. The etiology is likely related to a left-sided spigelian hernia which contains small bowel. There are multiple colonic diverticula consistent with diverticulosis. The appendix is visualized and appears normal. There is diffuse atherosclerotic calcification of the abdominal aorta with elongation and tortuosity, but without a demonstrated aneurysm. Normal inferior vena cava. Normal retroperitoneum. Normal urinary bladder. There is absence of the uterus consistent with a prior hysterectomy. There is a small umbilical hernia containing fat. There is multilevel degenerative disc disease of the lumbar spine. CT/Abdomen/Pelvis WITH Contrast IMPRESSION: Small bowel obstruction secondary to incarcerated left-sided spigelian hernia. Electronically Signed: Mell Frey MD at 13:56 EDT , Service support , CC: Dot Allen DO; Angelo Fisher MD Spark Plug Tester: Signed Dot Allen Start: 09-10-2015 End: 09-10-2015 Ecg routine ecg w/least 12 lds w/i&r [MEASUREMENTS ANALYSIS] Date of Test: 09/10/2015 12:04:22; Heart Rate: 52; MI Interval: 242; QRS: 102; QT Interval: 424; Corrected QT Interval (QTc): 410; P Wave Burnside: 49; QRS Wave Burnside: 25; T Wave Burnside: 11; Blood Pressure: 128/78 [ECG DIAGNOSTIC STATEMENTS] Date of Test: 09/10/2015 12:04:22; Summary: Sinus Bradycardia -First degree A-V block Giselle = 242-RSR(V1) -nondiagnostic. BORDERLINE RHYTHM Dot Allen Work Phone: Comment on above: nsr ivcd- no acute chg Start: 06-19-2015 End: 06-19-2015 Follow Up Appt 6 months Antoinette Cohn PA-C Work Phone: Start: 06-19-2015 End: 06-19-2015 PFM Antoinette Cohn PA-C Work Phone: Start: 12-11-2014 End: 12-12-2014 Documentation of current medications Dipesh Lang MD Start: 12-11-2014 End: 12-11-2014 Electrocardiogram, complete Dipesh Lang MD Start: 12-11-2014 End: 12-11-2014 Follow Up Appt 6 months Dipesh Lang MD Start: 12-11-2014 End: 12-11-2014 MMM Dipesh Lang MD Start: 12-05-2014 End: 12-05-2014 *Hepatic Function Panel Antoinette Cohn PA-C Work Phone: Start: 12-05-2014 End: 12-05-2014 Lipid panel [AGGREGATE] Antoinette Cohn PA-C Work Phone: Start: 03-06-2014 End: 03-06-2014 Follow Up Appt 6 months Antoinette Cohn PA-C Work Phone: Start: 03-06-2014 End: 03-06-2014 PFM Antoinette Cohn PA-C Work Phone: Start: 11-21-2013 End: 12-28-2013 *Hepatic Function Panel Antoinette Cohn PA-C Work Phone: Start: 11-21-2013 End: 12-28-2013 Lipid panel [AGGREGATE] Antoinette Cohn PA-C Work Phone: Start: 07-13-2013 End: 07-13-2013 Follow Up Appt 6 months Dipesh Lang MD Start: 07-13-2013 End: 07-13-2013 Follow Up Appt Other Dipesh Lang MD Start: 07-13-2013 End: 07-13-2013 MMM Dipesh Lang MD Start: 11-24-2012 End: 11-24-2012 Electrocardiogram, complete Antoinette Cohn PA-C Work Phone: Start: 11-24-2012 End: 11-24-2012 Follow Up Appt 6 months Antoinette Cohn PA-C Work Phone: Start: 11-24-2012 End: 11-24-2012 PFM Antoinette Cohn PA-C Work Phone: Start: 11-21-2012 End: 12-22-2012 *Hepatic Function Panel Antoinette Cohn PA-C Work Phone: Start: 11-21-2012 End: 12-27-2012 Lipid panel [AGGREGATE] Antoinette Cohn PA-C Work Phone: Start: 08-21-2012 End: 09-20-2012 *Hepatic Function Panel Dipesh Lang MD Start: 08-21-2012 End: 09-20-2012 Lipid panel [AGGREGATE] Dipesh Lang MD Start: 05-24-2012 End: 11-11-2012 Follow Up Appt 6 months Dipesh Lang MD Start: 05-24-2012 End: 11-11-2012 MMM Dipesh Lang MD Start: 11-17-2011 End: 11-17-2011 Follow Up Appt 6 months Dipesh Lang MD Start: 11-17-2011 End: 11-11-2012 Follow Up Appt Other Dipesh Lang MD Start: 06-24-2011 End: 09-11-2011 *Hepatic Function Panel Dipesh Lang MD Start: 06-24-2011 End: 09-11-2011 Lipid panel [AGGREGATE] Dipesh Lang MD Start: 05-05-2011 End: 09-11-2011 *BMP Dipesh Lang MD Start: 05-05-2011 End: 11-11-2012 Follow Up Appt 6 months Dipesh Lang MD H/O: hysterectomy Hysterectomy Denisa Gra vius DIGITAL MEDIA STRATEGIST H/O: hysterectomy Hysterectomy Anushka Sla rb VAULT TELLER H/O: hysterectomy Hysterectomy Denisa Gra vius DIGITAL MEDIA STRATEGIST H/O: hysterectomy Hysterectomy Kayela Rad ahn DIGITAL MEDIA STRATEGIST H/O: hysterectomy Hysterectomy Zaki Pry or VAULT TELLER H/O: surgery Breast surgery Denisa Graviu s DIGITAL MEDIA STRATEGIST Comment on above: 2011 H/O: surgery Breast surgery Anushka Slarb VAULT TELLER Comment on above: 2011 H/O: surgery Breast surgery Denisa Graviu s DIGITAL MEDIA STRATEGIST Comment on above: 2011 H/O: surgery Breast surgery Kayela Radfor d DIGITAL MEDIA STRATEGIST Comment on above: 2011 H/O: surgery Breast surgery Zaki Alla VAULT TELLER Comment on above: 2011 Hysterectomy Dot Tisha Grubbs on Work Phone: Laboratory test resu lt abnormal Other abnormal tumor markers Damaso Alvarez MD Work Phone: Ligation of fallopia n tube Dot Allen Work Phone: Operation on lung Dot Allen Work Phone: Operative procedure on wrist Dot Allen Work Phone: Replacement of total knee joint Eoly Lee Comment on above: rt 10/01/15 Replacement of total knee joint Denisa Gravius Comment on above: rt 10/01/15 Replacement of total knee joint Anushka Slarb VAULT TELLER Comment on above: rt 10/01/15 Replacement of total knee joint Denisa Gravius DIGITAL MEDIA STRATEGIST Comment on above: rt 10/01/15 Replacement of total knee joint Kayela Indira DIGITAL MEDIA STRATEGIST Comment on above: rt 10/01/15 Replacement of total knee joint Zaki Alla VAULT TELLER Comment on above: rt 10/01/15 Screening for osteoporosis Screening for osteoporosis (Renamed from Encounter for screening for osteoporosis) Dot Allen Screening for osteoporosis Screening for osteoporosis (Renamed from Encounter for screening for osteoporosis) Dot Allen DO Work Phone: Total hysterectomy Eloy Sm ith Total hysterectomy Denisa Gr avius Total hysterectomy Bhumika C oulter Total hysterectomy Eloy Sm ith Total hysterectomy Eloy Sm ith Total hysterectomy Eloy Da vis Total hysterectomy Denisa Gr avius Total hysterectomy Eloy Sm ith Total hysterectomy Anushka Sl arb VAULT TELLER Total hysterectomy Denisa Gr avius DIGITAL MEDIA STRATEGIST Total hysterectomy Kayela Ra dford DIGITAL MEDIA STRATEGIST Total hysterectomy Zaki Pr yor VAULT TELLER Total knee replacement Rigo Kwan Comment on above: rt 10/01/15 Total knee replacement Yannii n Art Comment on above: rt 10/01/15 Total knee replacement Pam Ravi Comment on above: rt 10/01/15 Total knee replacement Rigo Kwan Comment on above: rt 10/01/15 Total knee replacement Rigo Kwan Comment on above: rt 10/01/15 Total knee replacement Rigo Lee Comment on above: rt 10/01/15 Total knee replacement Rigo Kwan Comment on above: rt 10/01/15 Plan of Treatment Date Care Activity Detail Author Start: 10-21-2027 Lipid 1996 panel - Serum or Plasma Lipid Screening [facility] Start: 10-21-2027 Lipid panel [facility] Start: 10-21-2027 LIPID SCREEN LIPID SCREEN [facility] Start: 08-21-2027 Diabetes Screening Diabetes Screenin [facility] Start: 07-14-2027 Diabetes Screening Diabetes Screenin [facility] Start: 06-16-2027 Diabetes Screening Diabetes Screenin g [facility] Start: 05-18-2027 Diabetes Screening Diabetes Screenin g [facility] Start: 04-20-2027 Diabetes Screening Diabetes Screenin g [facility] Start: 03-22-2027 Diabetes Screening Diabetes Screenin g [facility] Start: 02-23-2027 Diabetes Screening Diabetes Screenin g [facility] Start: 01-26-2027 Diabetes Screening Diabetes Screenin g [facility] Start: 12-01-2026 Diabetes Screening Diabetes Screenin g [facility] Start: 10-06-2026 Diabetes Screening Diabetes Screenin g [facility] Start: 09-08-2026 Diabetes Screening Diabetes Screenin g [facility] Start: 08-11-2026 Diabetes Screening Diabetes Screenin g [facility] Start: 07-14-2026 Diabetes Screening Diabetes Screenin g [facility] Start: 05-20-2026 Diabetes Screening Diabetes Screenin g [facility] Start: 04-22-2026 Diabetes Screening Diabetes Screenin g [facility] Start: 02-23-2026 Diabetes Screening Diabetes Screenin g [facility] Start: 01-26-2026 Diabetes Screening Diabetes Screenin g [facility] Start: 11-03-2025 DIABETES SCREEN DIABETES SCREEN [facility] Start: 11-03-2025 Diabetes Screening Diabetes Screenin g [facility] Start: 08-16-2025 Diabetes mellitus screening Diabetes Screening [facility] Start: 08-13-2025 DIABETES SCREEN DIABETES SCREEN [facility] Start: 05-21-2025 DIABETES SCREEN DIABETES SCREEN [facility] Start: 02-26-2025 DIABETES SCREEN DIABETES SCREEN [facility] Start: 12-04-2024 DIABETES SCREEN DIABETES SCREEN [facility] Start: 11-21-2024 Influenza vaccination Influenz a Vaccine (Season Ended) [facility] Start: 11-02-2024 End: 11-02-2024 ambulatory [facility] Comment on above: QMO(SO) CBC/CMP/CA27 .29* 2nd Start: 10-28-2024 End: 10-28-2024 Patient encounter procedure 10/28/2024 11:30 AM EDT Office Visit [facility] [address] [place] [address] Flores Ly, DIGITIZER-SPEECH TEACHER, DNP [address] [place] [address] [facility] Start: 10-05-2024 End: 10-05-2024 ambulatory [facility] Comment on above: QMO(SO) CBC/CMP/CA27 .29* QMO FASLODEX/LAB EAR LY* MON/WED/FRI APPTS Start: 09-30-2024 End: 09-30-2024 Patient encounter procedure 09/30/2024 10:30 AM EDT Office Visit [facility] [address] [place] [id number] Yelena Garcia MD [address] [place] [address] [facility] Start: 09-14-2024 End: 09-14-2024 ambulatory 09/14/2024 2:20 PM EDT Visit (SP) Office Hematology/Oncology [address] [place] [address] Damaso Alvarez MD [address] [place] [address] OV/CT 09/07* Hematology/Oncology Comment on above: OV/CT 09/07* Start: 09-12-2024 End: 08-26-2025 CT Abdomen and Pelvis WO contrast CT ABD/PEL WO IVCON Radiology Routine Malignant neoplasm of upper-outer quadrant of right breast in female, estrogen receptor positive (HCC) Pleural effusion, malignant (HCC) Malignant neoplasm metastatic to bone (HCC) Malignant neoplasm of breast in female, estrogen receptor positive, unspecified laterality, unspecified site of breast (HCC) Expected: 09/12/2024 (Approximate), Expires: 08/26/2025 [facility] Comment on above: Expected: 09/12/2024 (Approximate), Expires: 08/26/2025 Start: 09-12-2024 End: 08-26-2025 CT Chest WO contrast CT CHEST WO IVCON Radiology Routine Malignant neoplasm of upper-outer quadrant of right breast in female, estrogen receptor positive (HCC) Pleural effusion, malignant (HCC) Malignant neoplasm metastatic to bone (HCC) Malignant neoplasm of breast in female, estrogen receptor positive, unspecified laterality, unspecified site of breast (HCC) Expected: 09/12/2024 (Approximate), Expires: 08/26/2025 [facility] Work Phone: Comment on above: Expected: 09/12/2024 (Approximate), Expires: 08/26/2025 Start: 09-10-2024 DIABETES SCREEN DIABETES SCREEN [facility] Start: 09-07-2024 Administration of bl ood product [facility] Start: 09-07-2024 Verification routine [facility] Start: 09-07-2024 Hospital admission, emergency, from emergency room, medical nature [facility] Start: 09-07-2024 Admission procedure Joe ster [facility] [place] [place] Start: 09-07-2024 Administration of bl ood product [facility] Start: 09-07-2024 Leukocyte reduced re d blood cells [facility] Start: 09-07-2024 End: 09-07-2024 ambulatory [facility] Comment on above: QMO(SO) CBC/CMP/CA27 .29* QMO FASLODEX/MDCR* M /THU/THU APPTS Start: 09-07-2024 End: 09-07-2024 Patient encounter procedure Cat Scan Comment on above: pt allergic to contr ast- provider to sign new orders Dx: Malignant neopla sm of upper-outer quadrant of breast in female, estrogen receptor positive, unspecified laterality (HCC) [C50.419, Z17.0]; Malignant neoplasm of left breast in female, estrogen receptor positive, unspecified site of breast (HCC) [C50.912, Z17.0] Start: 08-10-2024 End: 08-10-2024 [facility] Comment on above: QMO(SO) CBC/CMP/CA27 .29* 2nd Start: 07-13-2024 End: 07-13-2024 [facility] Comment on above: QMO(SO) CBC/CMP/CA27 .29* QMO FASLODEX/MDCR* M ON/THU/THU APPTS Start: 06-15-2024 End: 06-15-2024 [facility] Comment on above: QMO(SO) CBC/CMP/CA27 .29* QMO FASLODEX/MDCR* M ON/THU/THU APPTS -OV DUE MAR 4 MO OV/LAB&INJ TODA Y* Start: 06-14-2024 DIABETES SCREEN DIABETES SCREEN [facility] Start: 05-18-2024 End: 05-18-2024 ambulatory [facility] Comment on above: QMO(SO) CBC/CMP/CA27 .29* 2nd Start: 05-11-2024 End: 05-11-2024 Patient encounter procedure 05/11/2024 1:00 PM EST Appointment Cat Scan [address] [place], [place] [id number] Malignant neoplasm of upper-outer quadrant of breast in female, estrogen recepto... Cat Scan Comment on above: Malignant neoplasm o f upper-outer quadrant of breast in female, estrogen recepto... Start: 05-02-2024 End: 05-02-2024 Patient encounter procedure 05/02/2024 3:00 PM EST Appointment Cat Scan [address] [place] [address] Malignant neoplasm of upper-outer quadrant of breast in female, estrogen recepto... Cat Scan Comment on above: Malignant neoplasm o f upper-outer quadrant of breast in female, estrogen recepto... Start: 04-20-2024 End: 04-20-2024 [facility] Comment on above: QMO(SO) CBC/CMP/CA27 .29* QMO FASLODEX/MDCR* M ON/THU/THU APPTS -OV DUE MAY Start: 03-25-2024 End: 03-25-2024 Follow-up encounter 03/25/2024 1:00 PM EST [facility] Radiation Oncology [address] [place] [address] Luciana Florez MD [address] [place] [address] 4 WEEK FOLLOW UP Radiation Oncology Comment on above: 4 WEEK FOLLOW UP Start: 03-23-2024 Advance Directive Discussion Advance Directive Discussion [facility] Start: 03-22-2024 End: 03-22-2024 ambulatory Hematology/Oncology Comment on above: QMO FASLODEX/MDCR* M ON/THU/THU APPTS QMO(SO) CBC/CMP/CA27 .29* QMO FASLODEX/MDCR* M ON/THU/THU APPTS -OV DUE MAY Start: 02-26-2024 End: 02-26-2024 Patient encounter procedure 02/26/2024 3:00 PM EST Appointment Radiation Oncology [address] [place] [address] Location: [facility] Radiation Oncology Comment on above: Location: [facility] Start: 02-25-2024 End: 02-25-2024 Patient encounter procedure 02/25/2024 3:00 PM EST Appointment Radiation Oncology [address] [place] [address] Location: [facility] Comment on above: Location: [facility] Start: 02-24-2024 End: 02-24-2024 Patient encounter procedure 02/24/2024 3:00 PM EST Appointment Radiation Oncology [address] [place] [address] Location: [facility] Comment on above: Location: [facility] Start: 02-24-2024 End: 02-24-2024 [facility] Comment on above: LAB* 2nd QMO(SO) CBC/CMP/CA27 .29* Start: 02-23-2024 End: 02-23-2024 Patient encounter procedure Radiation Oncology Comment on above: Location: [facility] Location: [facility] VIS[facility] Start: 02-22-2024 End: 02-22-2024 Patient encounter procedure Radiation Oncology Comment on above: tent time Location: [facility] Start: 02-16-2024 End: 02-16-2024 Nursing evaluation of patient and report 02/16/2024 9:00 AM EST Nurse Visit Radiation Oncology [address] [place] [address] Wstr, Nurse Radt [facility] [address] [place] [address] Location: [facility] Radiation Oncology Comment on above: Location: [facility] Start: 02-16-2024 End: 02-16-2024 Patient encounter procedure 02/16/2024 8:30 AM EST Office Visit Radiation Oncology [address] [place] [address] Luciana Florez MD [address] [place] [address] sim at this time. Radiation Oncology Comment on above: sim at this time. Start: 02-12-2024 End: 02-12-2024 Patient encounter procedure 02/12/2024 9:30 AM EST Office Visit Radiation Oncology [address] [place] [address] Luciana Florez MD [address] [place] [address] CUSTOMER OPERATIONS REPRESENTATIVE/PLEURAL EFFUSION/BONE METS/REF DAMASO ALVAREZ* - THIS DATE PER PATIENT Radiation Oncology Comment on above: CUSTOMER OPERATIONS REPRESENTATIVE/PLEURAL EFFUSION/ BONE METS/REF DAMASO ALVAREZ* - THIS DATE PER PATIENT Start: 01-27-2024 End: 01-27-2024 ambulatory Hematology/Oncology Comment on above: 4 MO OV/CT 12/29* QMO FASLODEX/MDCR* M /THU/THU APPTS Start: 12-30-2023 End: 12-30-2023 ambulatory 12/30/2023 2:00 PM EDT Infusion Center Hematology/Oncology [address] [place] [address] Wstr, Injection Jose [facility] [address] [place] [address] QMO FASLODEX/MDCR* THU/THU/THU APPTS Hematology/Oncology Comment on above: QMO FASLODEX/MDCR* M /THU/THU APPTS Start: 12-30-2023 End: 12-30-2023 Patient encounter procedure Cat Scan Comment on above: NO ORAL CONTRAST - M alignant neoplasm of breast in female, estrogen receptor positive, unspecified laterality, unspecified site of breast (HCC) [C50.919, Z17.0] Malignant neoplasm o f breast in female, estrogen receptor positive, unspecified laterality, unspecified site of breast (HCC) [C50.919, Z17.0] Start: 12-02-2023 End: 12-02-2023 ambulatory [facility] Comment on above: LAB* Q3MO ZOMETA/QMO FASL ODEX/LAB EARLY(MDCR)* THU/THU/THU APPTS 2nd Start: 11-22-2023 COVID-19 Vaccine ( season) COVID-19 Vaccine ( season) [facility] Start: 11-22-2023 Influenza vaccination [facility] Start: 11-04-2023 End: 11-04-2023 ambulatory 11/04/2023 3:00 PM EDT Infusion Center Hematology/Oncology [address] [place] [address] Wstr, Injection Jose [facility] [address] [place] [address] QMO FASLODEX/MDCR* THU/THU/THU APPTS Hematology/Oncology Comment on above: QMO FASLODEX/MDCR* M APPTS Start: 10-14-2023 FUV, Provider: Dimas Ruiz, Status: Pen, Time: 2:15 PM FUV, Provider: Dimas Ruiz, Status: Pen, Time: 2:15 PM [id number] Work Phone: Start: 10-07-2023 End: 10-07-2023 ambulatory Hematology/Oncology Comment on above: QMO FASLODEX/MDCR* M /THU/THU APPTS OV/LAB EARLY/INJ TOD AY* Start: 10-07-2023 End: 10-07-2023 ambulatory [facility] Comment on above: CBC/CMP/CA 27.29 -PE R 10 TE OV/LAB EARLY/INJ TOD AY* Start: 10-07-2023 End: 10-07-2023 [facility] Comment on above: LAB* QMO FASLODEX/MDCR* M /THU APPTS Start: 09-09-2023 End: 09-09-2023 ambulatory [facility] Comment on above: LAB* Q3MO ZOMETA/QMO FASL ODEX/LAB EARLY(MDCR)* THU/THU/THU APPTS Start: 08-12-2023 End: 08-12-2023 ambulatory [facility] Comment on above: LAB* QMO FASLODEX/MDCR* M /THU/THU APPTS Start: 06-15-2023 End: 09-14-2023 [facility] SEND OUT TST 1 [facility] SEND OUT TST 1 Lab Routine Malignant neoplasm of upper-outer quadrant of right breast in female, estrogen receptor positive (HCC) Expected: 06/15/2023, Expires: 09/14/2023 [facility] Work Phone: Comment on above: Expected: 06/15/2023 , Expires: 09/14/2023 Start: 04-09-2023 Mammography MAMMOGRAM [facility] Start: 03-23-2023 Advance Directive Discussion Advance Directive Discussion [facility] Start: 01-26-2023 End: 04-27-2023 Comprehensive metabolic 2000 panel - Serum or Plasma COMP METABOLIC PANEL Lab STAT Malignant neoplasm metastatic to bone (HCC) Expected: 01/26/2023, Expires: 04/27/2023 [facility] Work Phone: Comment on above: Expected: 01/26/2023 , Expires: 04/27/2023 Start: 11-21-2022 Influenza vaccination [facility] Start: 10-20-2022 VNINSUFFBI, Provider : [facility], Status: Pen, Time: 1:00 PM VNINSUFFBI, Provider: [facility], Status: Pen, Time: 1:00 PM [id number] [place] Work Phone: Start: 10-20-2022 ECHO, Provider: TIARA YANEZI ECHO 1,SMCECHO1, Status: Pen, Time: 12:00 PM ECHO, Provider: TIARA HHVI ECHO 1,SMCECHO1, Status: Pen, Time: 12:00 PM [id number] [address] [place] Work Phone: Start: 09-25-2022 Procedure Education Eprescribe d prescriptions (G8553) [facility] Work Phone: Start: 09-25-2022 Basic metabolic pane l calcium total Metabolic Panel, Basic (23252) [facility]; [facility] Work Phone: Start: 08-22-2022 RSV High Risk: (Elde rly (60+) or Population) (1 - 1-dose 75+ series) RSV High Risk: (Elderly (60+) or Population) (1 - 1-dose 75+ series) [facility] Start: 08-22-2022 RSV Vaccine (1 - 1-d ose 75+ series) RSV Vaccine (1 - 1-dose 75+ series) [facility] Start: 05-21-2022 End: 07-21-2022 Cancer Ag 15-3 [Units/volume] in Serum or Plasma CA 15-3 BLD Lab Routine Malignant neoplasm of upper-outer quadrant of right breast in female, estrogen receptor positive (HCC) Bone metastases (HCC) Liver metastasis (HCC) Expected: 05/21/2022, Expires: 07/21/2022 [facility] Work Phone: Comment on above: Expected: 05/21/2022 , Expires: 07/21/2022 Start: 05-21-2022 End: 07-21-2022 Cancer Ag 27-29 [Units/volume] in Serum or Plasma CA 27.29 BLOOD Lab Routine Malignant neoplasm of upper-outer quadrant of right breast in female, estrogen receptor positive (HCC) Bone metastases (HCC) Liver metastasis (HCC) Expected: 05/21/2022, Expires: 07/21/2022 [facility] Work Phone: Comment on above: Expected: 05/21/2022 , Expires: 07/21/2022 Start: 05-21-2022 End: 07-21-2022 CBC W Auto Differential panel - Blood CBC + DIFF Lab STAT Malignant neoplasm of upper-outer quadrant of right breast in female, estrogen receptor positive (HCC) Bone metastases (HCC) Liver metastasis (HCC) Expected: 05/21/2022, Expires: 07/21/2022 [facility] Work Phone: Comment on above: Expected: 05/21/2022 , Expires: 07/21/2022 Start: 05-21-2022 End: 07-21-2022 Comprehensive metabolic 2000 panel - Serum or Plasma COMP METABOLIC PANEL Lab STAT Malignant neoplasm of upper-outer quadrant of right breast in female, estrogen receptor positive (HCC) Bone metastases (HCC) Liver metastasis (HCC) Expected: 05/21/2022, Expires: 07/21/2022 [facility] Work Phone: Comment on above: Expected: 05/21/2022 , Expires: 07/21/2022 Start: 03-23-2022 ADVANCE DIRECTIVE DISCUSSION ADVANCE DIRECTIVE DISCUSSION [facility] Start: 02-10-2022 Procedure Education Eprescribe d prescriptions (G8553) [facility] Work Phone: Start: 02-10-2022 Prothrombin time PT (Prothrobi m Time) (54971) [facility]; [facility] Work Phone: Start: 02-10-2022 Thromboplastin time partial plasma/whole blood PTT (Activated Partial Thromboplastin Time) (02784) [facility]; [facility] Work Phone: Start: 02-10-2022 Comprehensive metabo lic panel METABOLIC PANEL, COMPREHENSIVE (36376) [facility]; [facility] Work Phone: Start: 02-10-2022 Blood count complete auto&auto difrntl wbc CBC W/AUTO DIFF WBC (08453) [facility]; [facility] Work Phone: Start: 12-18-2021 Procedure Education Eprescribe d prescriptions (G8553) [facility]; [facility] Work Phone: Start: 11-21-2021 Influenza vaccination C [facility] Start: 10-06-2021 Medicare Annual Wellness Visit Medicare Annual Wellness Visit (AWV) [facility] Start: 03-23-2021 ADVANCE DIRECTIVE DISCUSSION ADVANCE DIRECTIVE DISCUSSION [facility] Start: 11-21-2020 Influenza vaccination INFLUENZA (#1) [facility] Start: 10-05-2020 Provider Instruction s for Treatment [facility]; [facility] Work Phone: Start: 10-05-2020 Hepatitis c antibody HEPATITIS C ANTIBODY (52995) [facility]; [facility] Work Phone: Comment on above: send results to dr Reymundo mendez Start: 10-05-2020 Oncology colorectal screening alfonzo 10 dna markrs Cologuard - Strool Based DNA Test, CRC SCREEN (59191) [facility]; [facility] Work Phone: Start: 08-17-2020 Mammography MAMMOGRAM [facility] Start: 03-26-2020 Procedure Education Eprescribe d prescriptions (G8553) [facility]; [facility] Work Phone: Start: 12-13-2019 Procedure Education Eprescribe d prescriptions (G8553) [facility] Work Phone: Start: 12-13-2019 Provider Instruction s for Treatment Follow up if no improvement or if symptoms worsen [facility] Work Phone: Start: 12-06-2019 LIPID SCREEN LIPID SCREEN [facility] Start: 06-15-2019 Procedure Education Eprescribe d prescriptions (G8553) [facility] Work Phone: Start: 12-29-2018 Glucose [Mass/Vol] GLUCOSE (43466) [facility] Work Phone: Start: 12-29-2018 Glucose quantitative blood xcpt reagent strip GLUCOSE (63999) [facility]; [facility] Work Phone: Start: 12-29-2018 Level iv surg pathol ogy gross&microscopic exam CYTOLOGY, BODY FLUID/CSF (24089) [facility] Work Phone: Start: 12-29-2018 Protein [Mass/Vol] PROTEIN, [place], [place]. (55456) [facility] Work Phone: Start: 12-29-2018 Protein xcpt refractometry serum plasma/whl bld PROTEIN, T[place], [place]. (55355) [facility]; [facility] Work Phone: Start: 12-29-2018 Lactate dehydrogenas e ldh LDH, FLUID (55963) [facility] Work Phone: Start: 12-29-2018 Cul bact aerobic add l meths definitive ea isol Culture, Aerobic, Bacterial ID (33574) [facility] Work Phone: Start: 12-29-2018 Microscopic observat ion Gram stain Nom (Unsp spec) GRAM STAIN (89068) [facility] Work Phone: Start: 12-29-2018 Cell count misc body fluids w/differential count CELL COUNT, PLEURAL FLUID (92314) [facility] Work Phone: Start: 12-29-2018 Procedure Education Eprescribe d prescriptions (G8553) [facility] Work Phone: Start: 12-21-2018 Procedure Education Eprescribe d prescriptions (G8553) [facility] Work Phone: Start: 12-21-2018 Provider Instruction s for Treatment Follow up if no improvement or if symptoms worsen [facility] Work Phone: Start: 11-23-2018 Procedure Education Eprescribe d prescriptions (G8553) [facility] Work Phone: Start: 11-08-2018 Procedure Education Eprescribe d prescriptions (G8553) [facility] Work Phone: Start: 07-05-2018 Procedure Education Eprescribe d prescriptions (G8553) [facility] Work Phone: Start: 07-05-2018 Provider Instruction s for Treatment Continue Current Prescription(s) [facility] Work Phone: Start: 07-01-2018 Procedure Education Eprescribe d prescriptions (G8553) [facility] Work Phone: Start: 07-01-2018 Provider Instruction s for Treatment Continue Current Prescription(s) [facility] Work Phone: Start: 07-01-2018 Basic metabolic pane l calcium total METABOLIC PANEL, BASIC (27069) [facility] Work Phone: Comment on above: STAT STAT STAT STAT STAT!! Start: 10-02-2017 Provider Instruction s for Treatment [facility] Work Phone: Start: 09-04-2017 Procedure Education Eprescribe d prescriptions (G8553) [facility] Work Phone: Start: 09-04-2017 Provider Instruction s for Treatment [facility] Work Phone: Start: 09-04-2017 Lipid panel LIPID PANEL (12636) [facility] Work Phone: Start: 11-03-2016 Provider Instruction s for Treatment Reviewed Diagnostic Tests [facility] Work Phone: Start: 10-20-2016 Provider Instruction s for Treatment [facility] Work Phone: Start: 09-15-2016 Provider Instruction s for Treatment [facility] Work Phone: Start: 07-20-2016 End: 07-20-2016 Appointment Appointment [facility] Work Phone: Start: 05-02-2016 Procedure Education Eprescribe d prescriptions (G8553) [facility] Work Phone: Start: 05-02-2016 Provider Instruction s for Treatment [facility] Work Phone: Start: 03-20-2016 LIPID SCREEN LIPID SCREEN [facility] Start: 12-10-2015 End: 12-10-2015 *Hepatic Function Panel *Hepatic Function Panel [facility] Work Phone: Start: 12-10-2015 End: 12-10-2015 Follow Up Appt 6 months Follow Up Appt 6 months [facility] Work Phone: Start: 12-10-2015 End: 12-10-2015 Lipid panel [AGGREGATE] *Lipid Profile CC PCP [facility] Work Phone: Start: 12-10-2015 End: 12-10-2015 MMM MMM [facility] Work Phone: Start: 12-06-2015 End: 12-06-2014 *Hepatic Function Panel *Hepatic Function Panel [facility] Work Phone: Start: 12-06-2015 End: 12-06-2014 Lipid panel [AGGREGATE] *Lipid Profile CC PCP [facility] Work Phone: Start: 10-08-2015 End: 09-13-2015 24 hour holter monitor 24 hour holter monitor [facility] Work Phone: Start: 09-10-2015 Procedure Education Eprescribe d prescriptions (G8553) [facility] Work Phone: Start: 09-10-2015 Provider Instruction s for Treatment [facility] Work Phone: Start: 06-20-2016 Blood occult fecal h gb deter ia qual feces 1-3 FECAL OCCULT- Tubes sent home (94802) [facility] Work Phone: Start: 09-03-2015 Provider Instruction s for Treatment [facility] Work Phone: Start: 09-03-2015 Assay of thyroid stimulating hormone tsh TSH (43691) [facility]; [facility] Work Phone: Start: 09-03-2015 Thyrotropin Qn TSH (25343) [facility] Work Phone: Start: 09-03-2015 Urnls dip stick/tabl et reagent auto microscopy URINALYSIS, W/ MICRO (09929) [facility] Work Phone: Start: 09-03-2015 Urine albumin quantitative MICROALBUMIN: CREATININE RATIO (09800) AND (23524) [facility] Work Phone: Start: 09-03-2015 Comprehensive metabo lic panel METABOLIC PANEL, COMPREHENSIVE (62882) [facility] Work Phone: Start: 09-03-2015 Lipid panel LIPID PANEL (74556) [facility] Work Phone: Start: 09-03-2015 Blood count complete auto&auto difrntl wbc CBC W/AUTO DIFF WBC (39407) [facility] Work Phone: Start: 06-19-2015 End: 06-19-2015 Follow Up Appt 6 months Follow Up Appt 6 months [facility] Work Phone: Start: 06-19-2015 End: 06-19-2015 PFM PFM [facility] Work Phone: Start: 01-20-2015 End: 12-05-2014 *Hepatic Function Panel *Hepatic Function Panel [facility] Work Phone: Start: 01-20-2015 End: 12-05-2014 Lipid panel [AGGREGATE] *Lipid Profile CC PCP [facility] Work Phone: Start: 12-11-2014 End: 12-11-2014 Electrocardiogram, complete EKG (In office) [facility] Work Phone: Start: 12-11-2014 End: 12-11-2014 Follow Up Appt 6 months Follow Up Appt 6 months [facility] Work Phone: Start: 12-11-2014 End: 12-11-2014 MMM MMM [facility] Work Phone: Start: 05-15-2014 Procedure Education Eprescribe d prescriptions (G8553) [facility] Work Phone: Start: 05-15-2014 Provider Instruction s for Treatment Follow up in 1 year [facility] Work Phone: Start: 03-06-2014 End: 03-06-2014 Follow Up Appt 6 months Follow Up Appt 6 months [facility] Work Phone: Start: 03-06-2014 End: 03-06-2014 PFM PFM [facility] Work Phone: Start: 11-21-2013 End: 12-28-2013 *Hepatic Function Panel *Hepatic Function Panel [facility] Work Phone: Start: 11-21-2013 End: 12-28-2013 Lipid panel [AGGREGATE] *Lipid Profile CC PCP [facility] Work Phone: Start: 07-13-2013 End: 07-13-2013 Follow Up Appt 6 months Follow Up Appt 6 months [facility] Work Phone: Start: 07-13-2013 End: 07-13-2013 Follow Up Appt Other Follow Up Appt Other [facility] Work Phone: Start: 07-13-2013 End: 07-13-2013 MMM MMM [facility] Work Phone: Start: 11-24-2012 End: 11-24-2012 Electrocardiogram, complete EKG (In office) [facility] Work Phone: Start: 11-24-2012 End: 11-24-2012 Follow Up Appt 6 months Follow Up Appt 6 months [facility] Work Phone: Start: 11-24-2012 End: 11-24-2012 PFM PFM [facility] Work Phone: Start: 11-21-2012 End: 12-22-2012 *Hepatic Function Panel *Hepatic Function Panel [facility] Work Phone: Start: 11-21-2012 End: 12-27-2012 Lipid panel [AGGREGATE] *Lipid Profile CC PCP [facility] Work Phone: Start: 08-22-2012 BONE DENSITY BONE DENSITY [facility] Start: 08-22-2012 Bone Density Screening Bone Density Screening [facility] Start: 08-22-2012 PNEUMOVAX AGE 65 AND OVER WITH 5YR LOOKBACK (#1) PNEUMOVAX AGE 65 AND OVER WITH 5YR LOOKBACK (#1) [facility] Start: 08-22-2012 Screening for osteoporosis Bone Density Screening [facility] Start: 08-21-2012 Medicare Annual Wellness Visit Medicare Annual Wellness Visit [facility] Start: 08-21-2012 End: 09-20-2012 *Hepatic Function Panel *Hepatic Function Panel [facility] Work Phone: Start: 08-21-2012 End: 09-20-2012 Lipid panel [AGGREGATE] *Lipid Profile [facility] Work Phone: Start: 05-24-2012 End: 11-11-2012 Follow Up Appt 6 months Follow Up Appt 6 months [facility] Work Phone: Start: 05-24-2012 End: 11-11-2012 MMM MMM [facility] Work Phone: Start: 11-17-2011 End: 11-17-2011 Follow Up Appt 6 months Follow Up Appt 6 months [facility] Work Phone: Start: 11-17-2011 End: 11-11-2012 Follow Up Appt Other Follow Up Appt Other [facility] Work Phone: Start: 06-24-2011 End: 09-11-2011 *Hepatic Function Panel *Hepatic Function Panel [facility] Work Phone: Start: 06-24-2011 End: 09-11-2011 Lipid panel [AGGREGATE] *Lipid Profile [facility] Work Phone: Start: 05-05-2011 End: 09-11-2011 *BMP *BMP [facility] Work Phone: Start: 05-05-2011 End: 11-11-2012 Follow Up Appt 6 months Follow Up Appt 6 months [facility] Work Phone: Start: 2007 Hepatitis B Vaccines (1 of 3 - Risk 3-dose series) Hepatitis B Vaccines (1 of 3 - Risk 3-dose series) [facility] Start: 2007 RSV Vaccine (1 - 1-d ose 60+ series) RSV Vaccine (1 - 1-dose 60+ series) [facility] Start: 08-22-1997 Pneumococcal vaccination Pneumococcal Vaccine (1 of 1 - PCV) [facility] Start: 08-22-1997 SHINGRIX VACCINE (1 of 2) SHINGRIX VACCINE (1 of 2) [facility] Start: 08-22-1997 Zoster Vaccines (1 o f 2) Zoster Vaccines (1 of 2) [facility] Start: 08-22-1992 COLOGUARD (FIT-DNA) COLOGUARD (FIT-D NA) [facility] Start: 08-22-1992 Colonoscopy COLONOSCOPY [facility] Start: 08-22-1992 COLORECTAL CANCER SCREENING COLORECTAL CANCER SCREENING [facility] Start: 08-22-[address] COLONOGRAPHY [facility] Start: 08-22-1992 FECAL OCCULT BLOOD FECAL OCCULT BLOO D [facility] Start: 08-22-1992 Screening for malign ant neoplasm of colon [facility] Start: 08-22-1992 SIGMOIDOSCOPY SIGMOIDOSCOPY [facility] Start: 08-22-1969 DTaP/Tdap/Td Vaccine s (1 - Tdap) DTaP/Tdap/Td Vaccines (1 - Tdap) [facility] Start: 08-22-1966 Hepatitis A Vaccines (1 of 2 - Risk 2-dose series) Hepatitis A Vaccines (1 of 2 - Risk 2-dose series) [facility] Start: 08-22-1966 Pneumococcal Vaccine : 50+ (1 of 2 - PCV) Pneumococcal Vaccine: 50+ (1 of 2 - PCV) [facility] Start: 08-22-1966 SHINGRIX VACCINE (1 of 2) SHINGRIX VACCINE (1 of 2) [facility] Start: 08-22-1966 Urine microalbumin profile [facility] Start: 08-22-1965 HEPATITIS C SCREENING HEPATITIS C [facility] Start: 08-22-1965 Hepatitis C screening Hepatitis C [facility] Start: 1959 COVID-19 VACCINE (1) COVID-19 VACCIN E (1) [facility] Start: 08-22-1958 Screening for malign ant neoplasm of cervix Cervical Cancer Screening [facility] Start: 08-22-1953 Pneumococcal Vaccine : 65+ (1 - PCV) Pneumococcal Vaccine: 65+ (1 - PCV) [facility] Start: 08-22-1953 Pneumococcal Vaccine : 65+ (1 of 2 - PCV) Pneumococcal Vaccine: 65+ (1 of 2 - PCV) [facility] Start: 08-22-1953 PNEUMOCOCCAL: 65+ (1 - PCV) PNEUMOCOCCAL: 65+ (1 - PCV) [facility] Start: 08-22-1952 COVID-19 VACCINE (#1) COVID-19 VACCI NE (#1) [facility] Start: 02-22-1948 COVID-19 VACCINE (#1) COVID-19 VACCI NE (#1) [facility] Start: 1947 Screening for osteoporosis Bone Density Scan [facility] End: 08-16-2024 Bedside Midline Imaging Bedside Midline Imaging Imaging Routine Once for 1 Occurrences starting 08/16/2024 until 08/16/2024 [facility] Work Phone: Comment on above: Once for 1 Occurrenc es starting 08/16/2024 until 08/16/2024 End: 05-21-2023 Cancer Ag 15-3 [Units/volume] in Serum or Plasma CA 15-3 BLD Lab Routine Bone metastasis (HCC) Malignant neoplasm of lower-inner quadrant of right breast of female, estrogen receptor positive (HCC) Once per month for 10 Occurrences starting 05/21/2022 until 05/21/2023 [facility] Work Phone: Comment on above: Once per month for 1 0 Occurrences starting 05/21/2022 until 05/21/2023 End: 05-21-2023 Cancer Ag 27-29 [Units/volume] in Serum or Plasma CA 27.29 BLOOD Lab Routine Bone metastasis (HCC) Malignant neoplasm of lower-inner quadrant of right breast of female, estrogen receptor positive (HCC) Once per month for 10 Occurrences starting 05/21/2022 until 05/21/2023 [facility] Work Phone: Comment on above: Once per month for 1 0 Occurrences starting 05/21/2022 until 05/21/2023 End: 01-26-2025 Cancer Ag 27-29 [Units/volume] in Serum or Plasma CA 27.29 BLOOD Lab Routine Pleural effusion, malignant Malignant neoplasm metastatic to bone (HCC) Other abnormal tumor markers Once per month for 12 Occurrences starting 01/27/2024 until 01/26/2025 [facility] Comment on above: Once per month for 1 2 Occurrences starting 01/27/2024 until 01/26/2025 Cancer Ag 27-29 [Units/volume] in Serum or Plasma CA 27.29 BLOOD Lab Routine Pleural effusion, malignant Malignant neoplasm metastatic to bone (HCC) Other abnormal tumor markers 01/27/2024 2:00 PM EST [facility] End: 05-21-2023 CBC W Auto Differential panel - Blood CBC + DIFF Lab Routine Bone metastasis (HCC) Once per month for 10 Occurrences starting 05/21/2022 until 05/21/2023 [facility] Work Phone: Comment on above: Once per month for 1 0 Occurrences starting 05/21/2022 until 05/21/2023 End: 01-26-2025 CBC W Auto Differential panel - Blood COMPLETE BLOOD COUNT AND DIFFERENTIAL Lab Routine Pleural effusion, malignant Malignant neoplasm metastatic to bone (HCC) Once per month for 12 Occurrences starting 01/27/2024 until 01/26/2025, 1 completed [facility] Comment on above: Once per month for 1 2 Occurrences starting 01/27/2024 until 01/26/2025, 1 completed End: 05-21-2023 Comprehensive metabolic 2000 panel - Serum or Plasma COMP METABOLIC PANEL Lab Routine Bone metastasis (HCC) Once per month for 10 Occurrences starting 05/21/2022 until 05/21/2023 [facility] Work Phone: Comment on above: Once per month for 1 0 Occurrences starting 05/21/2022 until 05/21/2023 End: 01-26-2025 Comprehensive metabolic 2000 panel - Serum or Plasma COMPREHENSIVE METABOLIC PANEL Lab Routine Pleural effusion, malignant Malignant neoplasm metastatic to bone (HCC) Once per month for 12 Occurrences starting 01/27/2024 until 01/26/2025, 1 completed [facility] Work Phone: Comment on above: Once per month for 1 2 Occurrences starting 01/27/2024 until 01/26/2025, 1 completed CORNEAL TOPOGRAPHY ATLAS OU (BOTH EYES) CORNEAL TOPOGRAPHY ATLAS OU (BOTH EYES) OPHT Imaging Routine Combined form of age-related cataract, right eye Combined forms of age-related cataract of left eye Ordered: 01/24/2022 [facility] Work Phone: Comment on above: Ordered: 01/24/2022 Ct abdomen & pelvis w/o contrast material CT ABD/PEL WO IVCON Radiology Routine Bone metastases (HCC) Liver metastasis (HCC) Malignant neoplasm of upper-outer quadrant of right breast in female, estrogen receptor positive (HCC) 06/14/2021 10:21 AM EDT [facility] Work Phone: CT Abdomen and Pelvi s WO contrast CT ABD/PEL WO IVCON Radiology Routine Malignant neoplasm of left female breast, unspecified estrogen receptor status, unspecified site of breast (HCC) 05/08/2023 11:07 AM EST [facility] Work Phone: End: 11-05-2024 CT Abdomen and Pelvis WO contrast CT ABD/PEL WO IVCON Radiology Routine Malignant neoplasm of breast in female, estrogen receptor positive, unspecified laterality, unspecified site of breast (HCC) 1 Occurrences starting 10/07/2023 until 11/05/2024 [facility] Comment on above: 1 Occurrences starti ng 10/07/2023 until 11/05/2024 CT Abdomen and Pelvi s WO contrast CT ABD/PEL WO IVCON Radiology Routine Malignant neoplasm of breast in female, estrogen receptor positive, unspecified laterality, unspecified site of breast (HCC) 12/30/2023 1:49 PM EDT [facility] End: 05-21-2025 CT Abdomen and Pelvis WO contrast CT ABD/PEL WO IVCON Radiology Routine Malignant neoplasm of breast in female, estrogen receptor positive, unspecified laterality, unspecified site of breast (HCC) 1 Occurrences starting 04/21/2024 until 05/21/2025 [facility] Comment on above: 1 Occurrences starti ng 04/21/2024 until 05/21/2025 CT Abdomen and Pelvi s WO contrast CT ABD/PEL WO IVCON Radiology Routine Malignant neoplasm of breast in female, estrogen receptor positive, unspecified laterality, unspecified site of breast (HCC) 05/11/2024 1:26 PM EST [facility] CT Chest WO contrast CT CHEST WO IVCON Radiology Routine Malignant neoplasm of left female breast, unspecified estrogen receptor status, unspecified site of breast (HCC) 05/08/2023 11:07 AM EST [facility] Work Phone: End: 11-05-2024 CT Chest WO contrast CT CHEST WO IVCON Radiology Routine Malignant neoplasm of breast in female, estrogen receptor positive, unspecified laterality, unspecified site of breast (HCC) 1 Occurrences starting 10/07/2023 until 11/05/2024 [facility] Work Phone: Comment on above: 1 Occurrences starti ng 10/07/2023 until 11/05/2024 CT Chest WO contrast CT CHEST WO IVCON Radiology Routine Malignant neoplasm of breast in female, estrogen receptor positive, unspecified laterality, unspecified site of breast (HCC) 12/30/2023 1:49 PM EDT [facility] Work Phone: End: 05-21-2025 CT Chest WO contrast CT CHEST WO IVCON Radiology Routine Malignant neoplasm of breast in female, estrogen receptor positive, unspecified laterality, unspecified site of breast (HCC) 1 Occurrences starting 04/21/2024 until 05/21/2025 [facility] Work Phone: Comment on above: 1 Occurrences starti ng 04/21/2024 until 05/21/2025 CT Chest WO contrast CT CHEST WO IVCON Radiology Routine Malignant neoplasm of breast in female, estrogen receptor positive, unspecified laterality, unspecified site of breast (HCC) 05/11/2024 1:26 PM EST [facility] Work Phone: CT Guidance for radiation treatment of Unspecified body region CT SIM PLANNING RADIATION ONCOLOGY Radiology Routine Malignant neoplasm metastatic to bone (HCC) Ordered: 02/15/2024 [facility] Work Phone: Comment on above: Ordered: 02/15/2024 Ct thorax w/o contra st material CT CHEST WO IVCON Radiology Routine Bone metastases (HCC) Liver metastasis (HCC) Malignant neoplasm of upper-outer quadrant of right breast in female, estrogen receptor positive (HCC) 06/14/2021 10:22 AM EDT [facility] Work Phone: Electrocardiogram, 12-lead PRN ACS symptoms Electrocardiogram, 12-lead PRN ACS symptoms ECG Routine As needed until discontinued starting 08/13/2024 [facility] Work Phone: Comment on above: As needed until disc ontinued starting 08/13/2024 Folate [Moles/volume ] in Serum or Plasma [facility] End: 08-16-2024 Incentive spirometry Instruct Incentive spirometry Instruct Respiratory Care Routine Once for 1 Occurrences starting 08/16/2024 until 08/16/2024 [facility] Work Phone: Comment on above: Once for 1 Occurrenc es starting 08/16/2024 until 08/16/2024 IOL BIOMETRY W/ IOL CALC OU (BOTH EYES) IOL BIOMETRY W/ IOL CALC OU (BOTH EYES) OPHT Imaging Routine Combined form of age-related cataract, right eye Combined forms of age-related cataract of left eye Ordered: 01/24/2022 [facility] Work Phone: Comment on above: Ordered: 01/24/2022 End: 03-28-2023 MARLEY SCREENING MARLEY SCREENING Radiology Routine Malignant neoplasm of upper-outer quadrant of right breast in female, estrogen receptor positive (HCC) Bone metastases (HCC) Breast screening Encounter for screening mammogram for malignant neoplasm of breast 1 Occurrences starting 02/26/2022 until 03/28/2023 [facility] Work Phone: Comment on above: 1 Occurrences starti ng 02/26/2022 until 03/28/2023 End: 08-13-2024 Noninvasive Ventilation Patient to use: At night; Mode: CPAP; Ventilation type: CPAP; PEEP/CPAP (cm H2O): 5 Noninvasive Ventilation Patient to use: At night; Mode: CPAP; Ventilation type: CPAP; PEEP/CPAP (cm H2O): 5 Respiratory Care Routine Continuous until discontinued starting 08/13/2024 [facility] Work Phone: Comment on above: Continuous until dis continued starting 08/13/2024 OCT MACULA CIRRUS OU (BOTH EYES) OCT MACULA CIRRUS OU (BOTH EYES) OPHT Imaging Routine Combined form of age-related cataract, right eye Combined forms of age-related cataract of left eye Ordered: 01/24/2022 [facility] Work Phone: Comment on above: Ordered: 01/24/2022 Patient Education [facility] Work Phone: Patient referral [facility] Work Phone: Pulse oximetry, overnight Pulse oximetry, overnight Respiratory Care Routine At bedtime until discontinued starting 08/21/2024 [facility] Work Phone: Comment on above: At bedtime until dis continued starting 08/21/2024 Surgical pathology study [facility] Work Phone: Comment on above: Release Upon Orderin g for 1 Occurrences starting 08/13/2024, 1 completed [facility] Work Phone: [facility] Work Phone: [facility] Work Phone: [facility] Work Phone: [facility] Work Phone: [facility] Work Phone[facility] Work Phone: [facility] Work Phone: [facility] Work Phone: [facility] Work Phone: [facility] Work Phone: [facility] Work Phone: [facility] Work Phone[facility] Work Phone: [facility] Work Phone: [facility] Work Phone: [facility] Work Phone: [facility] Work Phone: [facility]; [facility] Work Phone: [facility]; [facility] Work Phone: [facility]; [facility] Work Phone: [facility]; [facility] Work Phone: [facility] Immunizations Immunization Date Immunization Notes Care Provider Maria Ines case 03-23-2020 [employer] (AD26 .5 ML) Dot Allen DO Work Phone: [facility]; [facility] Work Phone: Payers Date Payer Category Payer Self-pay [id number] 2020 Medicare [id number] 2015 Medicare supplementa l policy (as second payer) HUMANA MEDICARE SUPPLEMENT [id number] 2015 Private Health Insurance HUMANA HUMANA MEDICARE SUPPLEMENT [id number] 2015-Present [phone] [address] [address] [place] [address] Indemnity [id number] 2015 Private Health Insurance [id number] 2014 Private Health Insurance [id number] 2012 Medicare MEDICARE MEDICAR E A AND B [id number] 2012-Present [phone] [place] [address] Medicare [id number] 2012 Medicare [id number] 2012 Medicare [id number] 1945 [facility] [id number] .2.716 1945 Unknown [id number] 2.16.840.1.040454.3.579 .2.9 1945 Unknown [id number] 2.16.840.1.899504.3.579 .2.1069 1945 Unknown [id number] 2.16.840.1.123193.3.579 .2.106 1945 Unknown [id number] 2.16.840.1.929621.3.579 .2.106 1945 Unknown [id number] 2.16.840.1.634875.3.579 .2.902 1945 Unknown [id number] 2.16.840.1.205335.3.579 .2.1244 1947 Unknown [id number] 2.16.840.1.586613.3.579 .2.1244 1947 Unknown [id number] 2.16.840.1.404678.3.579 .2.1243 1947 Unknown [id number] 2.16.840.1.716673.3.579 .2.1243 Unknown Unknown [id number] 2.16.840.1.224575.3.579 .2.462 Unknown [id number] 2.16.840.1.858328.3.579 .2.462 Unknown [id number] 2.16.840.1.943916.3.579 .2.462 Unknown [id number] 2.16.840.1.646800.3.579 .2.462 Social History Date Type Detail Facility Start: 02-26-2020 End: 09-25-2022 Alcohol Use Former smoker [facility] Work Phone: Comment on above: 2-3 mo qd none Exercise History: Does not exercise. [facility] Work Phone: Living Situation: Lives with spouse. [facility] Work Phone: Tobacco use: Former smoker. [facility] Work Phone: Exercise History: Exercise History: [facility]; [facility] Work Phone: Living Situation: Living Situation: [facility]; [facility] Work Phone: Tobacco use: Tobacco use: [facility]; [facility] Work Phone: Start: 05-19-2019 End: 09-07-2024 Tobacco smoking status NHIS Ex-smoker [facility] End: 03-18-1979 History of tobacco use Current smoker [facility] End: 03-18-1979 History of tobacco use Cigarette Smoker [facility] Start: 05-19-2019 End: 02-12-2024 Tobacco use and exposure Smokeless tobacco non-user [facility] Start: 06-18-2021 End: 06-15-2024 Alcohol intake Current drinker of alcohol (finding) [facility] Start: 06-24-2011 History SDOH Alcohol Comment occ [facility] Start: 07-03-2020 End: 01-24-2022 Tobacco Comment Pt smoked 1 cigarette daily on & off x 10 years. [facility] Start: 1945 Sex Assigned At Female [facility] Start: 06-04-2021 End: 08-26-2024 Exposure to SARS-CoV-2 (event) Not sure [facility] Start: 09-30-2021 Tobacco smoking stat us NJIS Unknown if ever smoked [facility] Work Phone: Start: 10-20-2017 Cigarettes [facility] Start: 02-26-2020 End: 09-25-2022 Tobacco use panel [facility] Adult Depression Screening Assessment 0 [facility] Start: 01-08-2019 Gender identity Identifies as female gender (finding) [facility] Start: 01-08-2019 Sexual orientation Heterosexual (fin frederick) [facility] History of tobacco use Passive smoker [facility] Work Phone: Start: 08-17-2024 End: 08-26-2024 Alcoholic beverage intake Ex-drinker (finding) [facility] Work Phone: Has the [employer], [employer], [employer], or water [employer] threatened to shut off services in your home in past 12Mo No [facility] Work Phone: How often to you hav e a drink containing alcohol? Never [facility] Work Phone: (I/We) worried wheth er (my/our) food would run out before (I/we) got money to buy more. Never true [facility] Work Phone: Start: 1945 [facility] Work [facility]: Medical Equipment Procedure Code Equipment Code Equipment Original Text Equipment Identifier Dates Mrkr 8ga Sec Sit e Id Mamrk - [id number] Start: 04-18-2013 DOUGH,CEMENT 6191-1-010 FDA Start: 10-19-2017 DOUGH,CEMENT 6191-1-010 FDA Start: 10-19-2017 TRIATHLON CRUC RET FEM COMP FDA Start: 10-19-2017 TRIATHLON PRIM TIB BASEPLATE FDA Start: 10-19-2017 TRIATHLON X3 PATELLA FDA Start: 10-19-2017 TRIATHLON X3 TIBIAL INSERT-CS FDA Start: 10-19-2017 DOUGH,CEMENT 6191-1-010 FDA Start: 10-19-2017 DOUGH,CEMENT 6191-1-010 FDA Start: 10-19-2017 TRIATHLON CRUC RET FEM COMP FDA Start: 10-19-2017 TRIATHLON PRIM TIB BASEPLATE FDA Start: 10-19-2017 TRIATHLON X3 PATELLA FDA Start: 10-19-2017 TRIATHLON X3 TIBIAL INSERT-CS FDA Start: 10-19-2017 Lens, Intraocular, Sn60wf 15.5 Case [id number] Start: 03-20-2022 Comment on above: Description: Convert ed from [facility]. Please see archived information for full log information. Lens, Intraocular, Sn60wf 18.5 Maryellen Case [id number] Start: 03-25-2022 Comment on above: Description: Convert ed from [facility]. Please see archived information for full log information. SANAM COLEY 6191-1-010 FDA Start: 10-19-2017 SANAM COLEY 6191-1-010 FDA Start: 10-19-2017 TRIATHLON CRUC RET FEM COMP FDA Start: 10-19-2017 TRIATHLON PRIM TIB BASEPLATE FDA Start: 10-19-2017 TRIATHLON X3 PATELLA FDA Start: 10-19-2017 TRIATHLON X3 TIBIAL INSERT-CS FDA Start: 10-19-2017 Functional Status Date Assessment Result Facility 08-13-2024 Total score [AUDIT-C] 0 08/14/19 25 2:33 AM EDT Sulema Braxton RN [facility] Work Phone: 08-13-2024 Patient Health [facility] ionnaire 2 item (PHQ-2) [Reported] [facility] Work Phone: 08-12-2024 [facility] s everity rating scale screener - recent [C-SSRS] [facility] Work Phone: 06-02-2019 Are you deaf, or do you have serious difficulty hearing No 06/02/2019 2:43 PM EDT Yas Cummins RN No [facility] 06-02-2019 Are you blind, or do you have serious difficulty seeing, even when wearing glasses No 06/02/2019 2:43 PM EDT Yas Cummins RN No [facility] 06-02-2019 Do you have serious difficulty walking or climbing stairs No 06/02/2019 2:43 PM EDT Yas Cummins RN No [facility] 06-02-2019 Do you have difficul ty dressing or bathing No 06/02/2019 2:43 PM EDT Yas Cummins RN No [facility] 06-02-2019 Because of a physica l, mental, or emotional condition, do you have difficulty doing errands alone such as visiting a physician's office or shopping No 06/02/2019 2:43 PM EDT Yas Cummins RN No [facility] 09-04-2017 LP-IR Score LP-IR Score 71 [facility] Work Phone: Comment on above: INSULIN RESISTANCE Glenn PENA <--Insulin Sensitive Insulin Resistant--> Percentile in Reference PopulationInsulin Resistance ScoreLP-IR Score Low 25th 50th 75th High <27 27 45 63 >63LP-IR Score is inaccurate if patient is non-fasting. .The LP-IR score is a laboratory developed index that has beenassociated with insulin resistance and diabetes risk and should beused as one component of a physician's clinical assessment. TheLP-IR score listed above has not been cleared by the [place] Food andDrug Administration. PATIENT WAS FASTINGP ERFORMED BY: BN [facility] [id number] [facility] [id number] BY: CB [facility] [id number] [facility] [id number] [facility] Work Phone: Mental Status Date Assessment Result Facility 09-07-2024 Cognitive function Level Of Cons ciousness Awake;Alert;Appropriate;Fol lows Commands [facility] Work Phone: 06-02-2019 Because of a physica l, mental, or emotional condition, do you have serious difficulty concentrating, remembering, or making decisions No 06/02/2019 2:43 PM EDT Yas Cummins RN No [facility] Clinical Notes 12-11-2009 to 09-07-2024 Note Date & Type Note Facility 09-07-2024 Evaluation note Diagnosis Onset Date Resolution Anemia requiring transfusions acute September 07, 2024 6:44pm History of breast cancer acute September 07, 2024 6:44pm Weakness acute September 07 6:44pm [facility] Work Phone: 1(227) 298-645806-18-2025 History and physical note Author Aubrey Atkinson [facility] Note Date/Time September 07, 2024 7:32 pm [facility] Medical Records Department [address] [place] [address] H&P Exam - Hospitalist 09/07/24 1844 MR#: [id number] Acct: [id number] Name: MARINA MORAES Rep #:[id number] 6 : 1945 79 From: Aubrey andrea DO PCP: Dr. Dot Allen DO Status:RE G ER Location: ED HPI - General General Date of Admission: 09/07/24 Date of Service: 09/07/24 Chief Complaint: Low hemoglobin level HPI Narrative MARINA MORAES, is a 79 F who presented to [facility] ED on 09/07/2024 with low hemoglobin level. Patient has complex recent medical history, reviewed [facility] records. Patient was recent hospitalized at [facility] in [place] for an acute small bowel obstruction secondary to ileocolicintussusception. She underwent surgery at that time. Hemoglobin on admission to the hospital and was 10.8 but had dropped to 7.3 by the day of discharge on 08/20. She had follow-up labs drawn today that showed a hemoglobin of 5.1 so shewas referred to the ED for further evaluation. Patient lives at home by herself. She was initially discharged to SNF but did not have a good experiencethere so she went home. She has at home health care seeing her since then. Patient actually works at [facility] and has good follow-up established there. She has prior history of breast cancer and the pathology from the small obstruction showed cancer consistent with a metastatic lesion from breast cancer. She is scheduled to see Dr. Alvarez with Oncology in the office nextweek. States that she has been feeling somewhat weak and fatigued over the pastweek or so but has otherwise been doing okay. She has been having normal bowel movements. Notably MCV was 115 on CBC today. Patient has vitamin B12 5000 mcg daily prescribed but she is unsure if she is taking this. 2 units of blood wereordered as well as folate and vitamin B12 levels, and hospitalist was contacted for admission. I saw the patient at bedside in the ED. Patient was pale appearing and mildly fatigued appearing but otherwise sitting back comfortably in bed, conversing normally and in no acute distress. She denied any acute painor discomfort currently. No other acute concerns. Will be admitted for furthermanagement. [facility] Medical History (Updated 09/07/24 @ 18:[address] Jake Cortés, ) Pleural effusion Hiatal hernia SVT (supraventricular tachycardia) Premature ventricular contraction Premature atrial contractions Breast cancer GERD (gastroesophageal reflux disease) Sinus bradycardia Palpitations Hyperlipidemia Atrial paroxysmal tachycardia Essential (primary) hypertension Home Medications ?Medication ?Instructions ?Recorded ?Last Taken ?Type multivitamin 1 ea PO DAILY SUPPLEMENT Unknown History omeprazole 20 mg capsule,delayed 20 mg PO DAILY GERD 0 09/12/15 10/19/17 10:00 History release venlafaxine 37.5 mg 37.5 mg PO DAILY ANXIETY 10/01/15 05:15 History capsule,extended release 24 hr fulvestrant 250 mg/5 mL 500 mg IM QMONTH 08/08/19 Un known History intramuscular syringe (Faslodex) calcium 500 mg (as carbonate)-vit 2 tab PO DAILY SUPPL EMENT 09/26/20 Unknown History D3 10 mcg (400 unit) chewable tablet loratadine 10 mg tablet (Claritin) 10 mg PO DAILY PRN allergy symptoms 09/26/20 Unknown History Lactobacillus rhamnosus GG 5 1 tab PO BID PRN 09/30/21 Unknown History billion cell chewable tablet ([employer]) cyanocobalamin (vitamin B-12) 5,000 mcg PO DAILY 09/30 Unknown History 5,000 mcg disintegrating tablet elderberry fruit 460 mg-elderberry 1 cap PO DAILY 09/20 04/13 Unknown History flower 115 mg capsule melatonin 3 mg tablet 6 mg PO HS PRN sleep 2 Unknown History palbociclib 125 mg tablet (Ibrance) 125 mg PO .COMPLEX 09/30/21 Unknown History carvedilol 12.5 mg tablet See Rx Instructions .Route 1 04/05/23 Unknown Rx .COMPLEX #180 tabs Allergy/AdvReac Type Severity Reaction Status Date / Time Iodinated Contrast Media Allergy Intermediate Rash Verified 09/07/24 15:18 (Iodinated Contrast- Oral and IV Dye) Sulfa (Sulfonamide Allergy Rash Verified 09/07/24 15:18 Antibiotics) Family History Mother CAD (coronary artery disease) Surgical History History of lung surgery History of left knee replacement History of hernia repair (~07/2016) History of breast reconstruction History of breast biopsy History of total right knee replacement History of partial mastectomy of right breast Status post wrist surgery History of total hysterectomy Social History Smoking Status: Former smoker alcohol intake: current details: occasional substance use type: does not use ROS Constitutional Constitutional: Reports fatigue; Denies chills, fever(s) or weakness Eyes Eyes: Denies change in vision Cardiovascular Cardiovascular: Denies chest pain Respiratory/Chest Respiratory/Chest: Denies shortness of breath at rest Gastrointestinal Gastrointestinal: Denies abdominal pain Musculoskeletal Musculoskeletal: Denies arthralgias or myalgias Neurologic Neurologic: Denies dizziness, focal weakness or headache(s) Vital Signs Vital Signs Vital Signs: 09/07/24 15:15 09/07/24 16:15 09/07/24 16:28 Temperature 98.3 F Temperature Source Oral Pulse Rate 82 79 Respiratory Rate 16 21 H Respiratory Effort Short of Breath Respiratory Pattern Normal Blood Pressure 155/59 H Blood Pressure Mean 91 Pulse Ox 98 88 Oxygen Delivery Method Room Air Room Air Oxygen Flow Rate (L/min) 09/07/24 16:33 09/07/24 17:20 Temperature Temperature Source Pulse Rate 74 76 Respiratory Rate 21 H 23 H Respiratory Effort Respiratory Pattern Blood Pressure 179/66 H 162/62 H Blood Pressure Mean 103 95 Pulse Ox 100 100 Oxygen Delivery Method Nasal Cannula Room Air Oxygen Flow Rate (L/min) 2 Weight Weight: 90.4 kg Body Mass Index (BMI) 40.2 Physical Exam Const alert, oriented x3 and no apparent distress Constitutional Narrative: Elderly female, class III obesity, mildly fatigued and pale appearing, otherwiselaying back comfortably in bed, conversing normally, in no acute distress. General Appearance: cooperative and comfortable HEENT normocephalic, head/scalp atraumatic, hearing grossly normal bilaterally, nasal mucous membranes and turbinates normal and moist oral mucous membranes Eyes PERRL, EOMs intact bilaterally and conjunctivae normal Neck full ROM Chest inspection of chest normal Resp normal respiratory effort, normal air movement, no use of accessory muscles and clear to auscultation bilaterally Cardio regular rate, regular rhythm, no murmurs and peripheral pulses 2+ throughout GI normal to inspection, nondistended, normoactive bowel sounds, soft to palpation,non-tender and non-distended Back/Spine normal ROM Extremity normal to inspection, full ROM and no pedal edema Skin no rashes or lesions noted Psych mental status grossly normal Results Lab / Micro Data 09/07/24 16:30 09/07/24 16:30 Labs: Laboratory Results - last 24 hr 09/07/24 16:30: WBC 4.8, RBC 1.44 L, Hgb 5.1 L*, Hct 16.6 L, MCV 115.3 H, MCH 35.4 H, MCHC 30.7 L, RDW Std Deviation 65.6 H, RDW Coeff of Isaias 16.1 H, Plt Count TNP, MPV TNP, Immature Gran % (Auto) 1.200 H, Neut % (Auto) 88.7 H, Lymph % (Auto) 5.0 L, [place] % (Auto) 3.9, Eos % (Auto) 1.0, Baso % (Auto) 0.2, AbsoluteNeuts (auto) 4.3, Absolute Lymphs (auto) 0.24 L, Nucleated RBC % 0, DifferentialComment SCANNED, Platelet Estimate ADEQUATE, Polychromasia 2+, Anisocytosis 2+, Sodium 138, Potassium 3.8, Chloride 102, Carbon Dioxide 22.9, Anion Gap 14, BUN 13, Creatinine 0.81, Estim Creat Clear Calc 58.27, Est GFR (MDRD) Non-Af 75, BUN/Creatinine Ratio 15.7, Glucose 85, Calcium 8.6, Total Bilirubin 0.77, AST 33H, ALT 9, Alkaline Phosphatase 108 H, Total Protein 5.6 L, Albumin 2.7 L, Globulin 2.9, Albumin/Globulin Ratio 1.0, Blood Type O POSITIVE, Antibody ScreenNEGATIVE, Crossmatch See Detail Micro: Microbiology 09/07/24 17:28 Stool Stool Occult Blood (GEGE) - Final Assessment & Plan Assessment/Plan (1) Anemia requiring transfusions: PLAN: Plan Patient is a 79-year-old female who presented [facility] ED on 09/07/2024 for low hemoglobin level. 1. Acute on chronic macrocytic anemia ? Admit under patient status to [facility]. Hemoglobin 5.1 on admit, MCV 115. Most recent hemoglobin was 7.3 at outside hospital on 08/20. See HPI for furtherdetails. Stool occult is negative and patient with normal bowel movements. No other overt areas of blood loss noted. Suspect poor absorption of folate due torecent ileocecectomy is playing a role. Folate and vitamin B12 level ordered. Will transfuse with 3 units of blood tonight and recheck CBC tomorrow. If hemoglobin is responded well, patient should be fine for discharge home tomorrow. Continue home vitamin B12 supplement. 2. Recent SBO secondary to ileocecal intussusception s/p surgical ileocecectomydue to metastatic breast cancer with acute on chronic debility ? Patient with recent hospitalization at [facility] in [place] for ileocecal intussusception s/p surgical ileocecectomy. Pathology consistent with metastatic lesion from breast cancer. Has history of breast cancer from 15 years ago that was in remission until now. Has an appointment with Dr. Alvarez with oncology scheduled for next week. Lives at home alone and was recently discharged to SNF but had a poor experience there and opted to go home with home health care shortly after that. Patient has home health care set up so we will hold off on having case management or therapy see her while here, as I anticipate this will be a short hospitalization for her. 3. GERD ? Continue home PPI. 4. Hypertension ? Continue home Coreg. 5. Class III obesity ? BMI 40 on admit. Complicates hospital course, care and prognosis. DVT prophylaxis: SCDs CODE STATUS: Full code, verified Expected disposition: Home, 2 to 3 days Total clinical time spent by myself addressing the patient's medical issues, reviewing all the data, and collaborating with patient's care team: 75 minutes. Charges/Coding Visit Charges Inpatient E&M: 67955 Init Hosp L3 09/07/241931 <Electronically signed by Aubrey Atkinson DO> Cosigner Signature (if applicable): CC: Dr. Aubrey Atkinson DO; Dr. Dot Allen DO~ Signed [facility] Work Phone: 1(961) 885-559606-18-2025 History and physical note [facility] Medical Records Department [address] [place] [address] H&P Exam - Hospitalist 09/07/24 1844 MR#: [id number] Acct: [id number] Name: MARINA MORAES Rep #:[id number] : 1945 79 From: Aubrey andrea DO PCP: Dr. Dot Allen DO Status:RE G ER Location: ED HPI - General General Date of Admission: 09/07/24 Date of Service: 09/07/24 Chief Complaint: Low hemoglobin level HPI Narrative MARINA MORAES, is a 79 F who presented to [facility] ED on 09/07/2024 with low hemoglobin level. Patient has complex recent medical history, reviewed [facility] records. Patient wasrecent hospitalized at [facility] in [place] for an acute small bowel obstruction secondary to ile ocolicintussusception. She underwent surgery at that time. Hemoglobin on admission to the hospital and was 10.8 but had dropped to 7.3 by the day of discharge on 08/20. She had follow-up labs drawn today that showed a hemoglobin of 5.1 so shewas referred to the ED for further evaluation. Patient lives at home by herself. She was initially discharged to SNF but did not have a good experiencethere so she went home. She has at home health care seeing her since then. Patient actually works at [facility] and has good follow-up established there. She has prior history of breast cancer and the pathology from the small obstruction showed cancer consistent with a metastatic lesion from breast cancer . She is scheduled to see Dr. Alvarez with Oncology in the office nextweek. States that she has been feeling somewhat weak and fatigued over the pastweek or so but has otherwise been doing okay. She has been having normal bowel movements. Notably MCV was 115 on CBC today. Patient has vitamin [id number] mcg daily prescribed but she is unsure if she is taking this. 2 units of blood wereordered as well as folate and vitamin B12 levels, and hospitalist was contacted for admission. I saw the patient at bedside in the ED. Patient was pale appearing and mildly fatigued appearing but otherwise sitting back comfortably in bed, conversing normally and in no acute distress. She denied any acute painor discomfort currently. No other acute concerns. Will be admitted for furthermanagement. [facility] Medical History (Updated 09/07/24 @ 18:[address] Jake Cortés, DO) Pleural effusion Hiatal hernia SVT (supraventricular tachycardia) Premature ventricular contraction Premature atrial contractions Breast cancer GERD (gastroesophageal reflux disease) Sinus bradycardia Palpitations Hyperlipidemia Atrial paroxysmal tachycardia Essential (primary) hypertension Home Medications ?Medication ?Instructions ?Recorded ?Last Taken ?Type multivitamin 1 ea PO DAILY SUPPLEMENT Unknown History omeprazole 20 mg capsule,delayed 20 mg PO DAILY GERD 0 09/12/15 10/19/17 10:00 History release venlafaxine 37.5 mg 37.5 mg PO DAILY ANXIETY 10/01/15 05:15 History capsule,extended release 24 hr fulvestrant 250 mg/5 mL 500 mg IM QMONTH 08/08/19 Un known History intramuscular syringe (Faslodex) calcium 500 mg (as carbonate)-vit 2 tab PO DAILY SUPPL EMENT 09/26/20 Unknown History D3 10 mcg (400 unit) chewable tablet loratadine 10 mg tablet (Claritin) 10 mg PO DAILY PRN allergy symptoms 09/26/20 Unknown History Lactobacillus rhamnosus GG 5 1 tab PO BID PRN 09/30/21 Unknown History billion cell chewable tablet (Culturelle Kids Probiotics) cyanocobalamin (vitamin B-12) 5,000 mcg PO DAILY 09/30 Unknown History 5,000 mcg disintegrating tablet elderberry fruit 460 mg-elderberry 1 cap PO DAILY 09/20 04/13 Unknown History flower 115 mg capsule melatonin 3 mg tablet 6 mg PO HS PRN sleep 2 Unknown History palbociclib 125 mg tablet (Ibrance) 125 mg PO .COMPLEX 09/30/21 Unknown History carvedilol 12.5 mg tablet See Rx Instructions .Route 1 04/05/23 Unknown Rx .COMPLEX #180 tabs Allergy/AdvReac Type Severity Reaction Status Date / Time Iodinated Contrast Media Allergy Intermediate Rash Verified 09/07/24 15:18 (Iodinated Contrast- Oral and IV Dye) Sulfa (Sulfonamide Allergy Rash Verified 09/07/24 15:18 Antibiotics) Family History Mother CAD (coronary artery disease) Surgical History History of lung surgery History of left knee replacement History of hernia repair (~07/2016) History of breast reconstruction History of breast biopsy History of total right knee replacement History of partial mastectomy of right breast Status post wrist surgery History of total hysterectomy Social History Smoking Status: Former smoker alcohol intake: current details: occasional substance use type: does not use ROS Constitutional Constitutional: Reports fatigue; Denies chills, fever(s) or weakness Eyes Eyes: Denies change in vision Cardiovascular Cardiovascular: Denies chest pain Respiratory/Chest Respiratory/Chest: Denies shortness of breath at rest Gastrointestinal Gastrointestinal: Denies abdominal pain Musculoskeletal Musculoskeletal: Denies arthralgias or myalgias Neurologic Neurologic: Denies dizziness, focal weakness or headache(s) Vital Signs Vital Signs Vital Signs: 09/07/24 15:15 09/07/24 16:15 09/07/24 16:28 Temperature 98.3 F Temperature Source Oral Pulse Rate 82 79 Respiratory Rate 16 21 H Respiratory Effort Short of Breath Respiratory Pattern Normal Blood Pressure 155/59 H Blood Pressure Mean 91 Pulse Ox 98 88 Oxygen Delivery Method Room Air Room Air Oxygen Flow Rate (L/min) 09/07/24 16:33 09/07/24 17:20 Temperature Temperature Source Pulse Rate 74 76 Respiratory Rate 21 H 23 H Respiratory Effort Respiratory Pattern Blood Pressure 179/66 H 162/62 H Blood Pressure Mean 103 95 Pulse Ox 100 100 Oxygen Delivery Method Nasal Cannula Room Air Oxygen Flow Rate (L/min) 2 Weight Weight: 90.4 kg Body Mass Index (BMI) 40.2 Physical Exam Const alert, oriented x3 and no apparent distress Constitutional Narrative: Elderly female, class III obesity, mildly fatigued and pale appearing, otherwiselaying back comfortably in bed, conversing normally, in no acute distress. General Appearance: cooperative and comfortable HEENT normocephalic, head/scalp atraumatic, hearing grossly normal bilaterally, nasal mucous membranes and turbinates normal and moist oral mucous membranes Eyes PERRL, EOMs intact bilaterally and conjunctivae normal Neck full ROM Chest inspection of chest normal Resp normal respiratory effort, normal air movement, no use of accessory muscles and clear to auscultation bilaterally Cardio regular rate, regular rhythm, no murmurs and peripheral pulses 2+ throughout GI normal to inspection, nondistended, normoactive bowel sounds, soft to palpation,non-tender and non-distended Back/Spine normal ROM Extremity normal to inspection, full ROM and no pedal edema Skin no rashes or lesions noted Psych mental status grossly normal Results Lab / Micro Data 09/07/24 16:30 09/07/24 16:30 Labs: Laboratory Results - last 24 hr 09/07/24 16:30: WBC 4.8, RBC 1.44 L, Hgb 5.1 L*, Hct 16.6 L, MCV 115.3 H, MCH 35.4 H, MCHC 30.7 L, RDW Std Deviation 65.6 H, RDW Coeff of Isaias 16.1 H, Plt Count TNP, MPV TNP, Immature Gran % (Auto) 1.200 H, Neut % (Auto) 88.7 H, Lymph % (Auto) 5.0 L, [place] % (Auto) 3.9, Eos % (Auto) 1.0, Baso % (Auto) 0.2, AbsoluteNeuts (auto) 4.3, Absolute Lymphs (auto) 0.24 L, Nucleated RBC % 0, DifferentialComment SCANNED, Platelet Estimate ADEQUATE, Polychromasia 2+, Anisocytosis 2+, Sodium 138, Potassium 3.8, Chloride 102, Carbon Dioxide 22.9, Anion Gap 14, BUN 13, Creatinine 0.81, Estim Creat Clear Calc 58.27, Est GFR (MDRD) Non-Af 75, BUN/Creatinine Ratio 15.7, Glucose 85, Calcium 8.6, Total Bilirubin 0.77, AST 33H, ALT 9, Alkaline Phosphatase 108 H, Total Protein 5.6 L, Albumin 2.7 L, Globulin 2.9, Albumin/Globulin Ratio 1.0, Blood Type O POSITIVE, Antibody ScreenNEGATIVE, Crossmatch See Detail Micro: Microbiology 09/07/24 17:28 Stool Stool Occult Blood (GEGE) - Final Assessment & Plan Assessment/Plan (1) Anemia requiring transfusions: PLAN: Plan Patient is a 79-year-old female who presented [facility] ED on 09/07/2024 for low hemoglobin level. 1. Acute on chronic macrocytic anemia ? Admit under patient status to [facility]. Hemoglobin 5.1 on admit, MCV 115. Most recent hemoglobin was 7.3 at outside hospital on 08/20. See HPI for furtherdetails. Stool occult is negative and patientwith normal bowel movements. No other overt areas of blood loss noted. Suspect poor absorption of folate due torecent ileocecectomy is playing a role. Folate and vitamin B12 level ordered. Will transfuse with 3 units of blood tonight and recheck CBC tomorrow. If hemoglobin is responded well, patient should be fine for discharge home tomorrow. Continue home vitamin B12 supplement. 2. Recent SBO secondary to ileocecal intussusception s/p surgical ileocecectomydue to metastatic breast cancer with acute on chronic debility ? Patient with recent hospitalization at [facility] in [place] for ileocecal intussusception s/p surgical ileocecectomy. Pathology consistent with metastatic lesion from breast cancer. Has history of breast cancer from 15 years ago that was in remission until now. Has an appointment with Dr. Alvarez with oncology scheduled for next week. Lives at home alone and was recently discharged to SNF but had a poor experience there and opted to go home with home health care shortly after that. Patient has home health care set up so we will hold off on having case management or therapy see her while here, as I anticipate this will be a short hospitalization for her. 3. GERD ? Continue home PPI. 4. Hypertension ? Continue home Coreg. 5. Class III obesity ? BMI 40 on admit. Complicates hospital course, care and prognosis. DVT prophylaxis: SCDs CODE STATUS: Full code, verified Expected disposition: Home, 2 to 3 days Total clinical time spent by myself addressing the patient's medical issues, reviewing all the data, and collaborating with patient's care team: 75 minutes. Charges/Coding Visit Charges Inpatient E&M: 57658 Init Hosp L3 09/07/241931 Cosigner Signature (if applicable): CC: Dr. Aubrey Atkinson, DO; Dr. Dot Allen, DO~ Signed [facility]06-11-2025 Telephone encounter Note* Telephone Encounter - Carito La RN - 08/31/2024 9:53 AM EDT Updated pathology report noted to have breast marker included. All set for OV 09/14/24. Aicha La RN [facility] Work Phone: 1(834) 136-239106-11-2025 Miscellaneous Notes* Telephone Encounter - Carito La RN - 08/31/2024 9:53 AM EDT Updated pathology report noted to have breast marker included. All set for OV 09/14/24. Aicha La RN * Telephone Encounter - Carito La RN - 08/29/2024 4:[address] Alvarez aware, reviewed and will discuss at OV on 09/14/24 and ask if they are doing breast markers and if not, please request. Aicha La RN * Telephone Encounter - Maryam Gerber LPN - 08/29/2024 8:24 AM EDT FINAL DIAGNOSIS [facility] A. 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 - Metastatic adenocarcinoma is present at the proximal and distal margins of resection. - Metastatic adenocarcinoma involves fifteen out of sixteen lymph nodes (15/16). - See note. Records in Care Everywhere. Maryam Gerber LPN * Telephone Encounter - Mesha Yun - 08/26/2024 10:55 AM EDT Received call from Dr. Yelena Garcia office- They are sending results from pathology to [facility] Telephone encounter Note * Telephone Encounter - Carito La RN - 08/29/2024 4:[address] Alvarez aware, reviewed and will discuss at OV on 09/14/24 and ask if they are doing breast markers and if not, please request. Aicha La RN [facility]06-09-2025 Telephone encounter Note* Telephone Encounter - Maryam Gerber LPN - 08/29/2024 8:24 AM EDT FINAL DIAGNOSIS [facility] A. 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 - Metastatic adenocarcinoma is present at the proximal and distal margins of resection. - Metastatic adenocarcinoma involves fifteen out of sixteen lymph nodes (15/16). - See note. Records in Care Everywhere. Maryam Gerber LPN [facility]06-06-2025 Telephone encounter Note* Telephone Encounter - Mesha Yun - 08/26/2024 10:55 AM EDT Received call from Dr. Yelena Garcia office- They are sending results from pathology to [facility] Work Phone: [phone]) 780-885306-06-2025 History of Present illness Narrative* Yelena Garcia MD - 08/26/2024 10:15 AM EDT Subjective Patient ID: Marina Moraes is a 79 y.o. female who presents for Post-op (Post OP #1 staple removal s/p ileocecectomy for acute bowel obstruction secondary to intussusception on 08-12-24 with hospitalization until 08-21-24. Patient have slight abdominal tenderness and takes Aleve for discomfort prn, last dose last night. Patient denies any incision drainage, bleeding or pain and no problems withbowel movements or urination. ). Patient returns for staple removal. She was initially sent home at her insistence but then she decided to go to an F. She does not really like it there and states they push her too hard. Otherwise she is doing well. She had had some diarrhea which is probably secondary to the contrast, but they called I told him we could order C. difficile. The diarrhea resolved so they never had this done. Objective Physical Exam Constitutional: General: She is not in acute distress. Appearance: She is not toxic-appearing. Eyes: General: No scleral icterus. Extraocular Movements: Extraocular movements intact. Pupils: Pupils are equal, round, and reactive to light. Cardiovascular: Rate and Rhythm: Normal rate. Pulmonary: Effort: Pulmonary effort is normal. No respiratory distress. Abdominal: Palpations: Abdomen is soft. Comments: Obese and soft. She has a midline incision that extends the entire way with marga. There is irritation around the marga but no cellulitis. Musculoskeletal: General: No swelling. Neurological: General: No focal deficit present. Mental Status: She is alert and oriented to person, place, and time. Psychiatric: Mood and Affect: Mood normal. Assessment/Plan Post ileocecectomy for intussusception Marga are removed and Steri-Strips applied. Wound care and activity restrictions are reviewed. Bud see her back in a month for wound check or sooner if there are any issues. Pathology is just returned and this was consistent with cancer probable metastatic from her breast.She took this fairly well. I was called out to the OR and requested that my staff send a copy of the pathology to her oncologist and make sure she has an appointment. All questions answered. Yelena Garcia MD 08/29/24 1:08 PM documented in this [facility] Work Phone: 1(554) 885-411006-01-2025 Hospital Discharge instructions* Discharge Instructions* Anjel Kwok RN - 08/21/2024 11:17 AM EDT Images from the original note were not included. Intussusception Discharge Instructions About this topic When the bowel slides inside itself you have an intussusception. It is like the folding of a telescope. The folded parts of the bowel get stuck and rub against each other. This can cause pain and mayblock the bowel. It may also change the blood flow to the bowel. The decreased blood flow may lead to serious health problems. The main cause of intussusception is often unknown. An intussusception is an emergency. It needs to be treated right away. Treatment may include drugs,procedures, and surgery. What care is needed at home? Ask your doctor what you need to do when you go home. Make sure you ask questions if you do not understand what the doctor says. Your doctor may tell you to go on a soft or liquid diet until your bowel movements are stable and ready for regular diet. Drink 6 to 8 glasses of water each day. If you had surgery, talk to your doctor about how to care for your cut site. Ask your doctor about: When you should change your bandages When you may take a bath or shower If you need to be careful with lifting things over 10 pounds (4.5 kg) When you may go back to your normal activities like work or driving Be sure to wash your hands before and after touching your wound or dressing. What follow-up care is needed? Your doctor may ask you to make visits to the office to check on your progress. Be sure to keep these visits. If you have stitches or marga, you will need to have them taken out. Your doctor will often want to do this in 1 to 2 weeks. What drugs may be needed? The doctor may order drugs to: Help with pain and swelling Prevent or fight an infection Soften stool Will physical activity be limited? You may have to limit your activity for a while. Talk to your doctor about the right amount of activity for you. What problems could happen? Infection Bleeding Hole in the bowel tissue Lower blood flow to bowels, causing a part of the bowel tissue to Internal bleeding When do I need to call the doctor? Signs of infection. These include a fever of 100.4 F (38 C) or higher, chills, pain with passing urine, wound that will not heal. Signs of wound infection. These include swelling, redness, warmth around the wound; too much pain when touched; yellowish, greenish, or bloody discharge; foul smell coming from the cut site; cut siteopens up. Very bad belly pain No bowel movement for 1 to 2 days Bloody, mucus-like bowel movement. Sometimes described as currant jelly stool. Swelling of the belly Throwing up Teach Back: Helping You Understand The Teach Back Method helps you understand the information we are giving you. After you talk with the staff, tell them in your own words what you learned. This helps to make sure the staff has described each thing clearly. It also helps to explain things that may have been confusing. Before going home, make sure you can do these: I can tell you about my condition. I can tell you how to care for my cut site, if I have one. I can tell you what I will do if I have a fever; bad belly pain; throwing up; or bloody, mucus-likestools. I can tell you when I need to follow up with my doctor. Last Reviewed Date 2020-08-14 documented in this [facility] Work Phone: 1(757) 185-932306-01-2025 Hospital course Narrative* Yelena Garcia MD - 08/21/2024 10:22 AM EDT Discharge Diagnosis Intussusception (Multi) Issues Requiring Follow-Up Still await pathology as to the etiology of the intussusception. Patient understands there is an 80% chance it is a cancer even though the CT showed it to be a lipoma. She will need an appointment Thursday for staple removal. Test Results Pending At Discharge Pending Labs Order Current Status Surgical Pathology Exam In process Hospital Course Patient was admitted status post emergent ileocecectomy for an acute bowel obstruction secondary toher intussusception which should probably been chronic for a number of months. She has a sleep apnea and could not wear her CPAP while in-house. She had a prolonged postop ileus. She vomited with thefirst attempted small bowel follow-through and this was repeated 2 days later which showed no evidence of obstruction and commenced numerous bowel movements. She has been tolerating a diet although she does not like the food and she thinks she will eat better when she goes home. I have reviewed herdischarge instructions. She will follow-up with me on Thursday for staple removal or call sooner if there are any issues. Pertinent Physical Exam At Time of Discharge Physical Exam Constitutional: General: She is not in acute distress. Appearance: She is not toxic-appearing. Eyes: General: No scleral icterus. Extraocular Movements: Extraocular movements intact. Pupils: Pupils are equal, round, and reactive to light. Cardiovascular: Rate and Rhythm: Normal rate. Pulmonary: Effort: Pulmonary effort is normal. No respiratory distress. Abdominal: Palpations: Abdomen is soft. Comments: Abdomen obese soft appropriately tender no cellulitis drainage has stopped Musculoskeletal: General: No swelling. Neurological: General: No focal deficit present. Mental Status: She is alert and oriented to person, place, and time. Psychiatric: Mood and Affect: Mood normal. Home Medications Medication List START taking these medications acetaminophen 325 mg tablet; Commonly known as: Tylenol; Take 2 tablets (650 mg) by mouth every 6 hours if needed for mild pain (1 - 3) for up to 20 doses. ibuprofen 600 mg tablet; Take 1 tablet (600 mg) by mouth every 6 hours if needed for moderate pain (4 - 6) for up to 20 doses. CONTINUE taking these medications carvedilol 12.5 mg tablet; Commonly known as: Coreg ELDERBERRY FRUIT ORAL FASLODEX IM fluorometholone 0.1 % ophthalmic suspension; Commonly known as: FML Hair,Skin and Nails tablet; Generic drug: multivitamin with minerals IBRANCE ORAL melatonin 3 mg tablet multivitamin capsule naproxen sodium 220 mg tablet; Commonly known as: Aleve NON FORMULARY PriLOSEC OTC 20 mg EC tablet; Generic drug: omeprazole OTC venlafaxine XR 37.5 mg 24 hr capsule; Commonly known as: Effexor-XR ZOMETA IV Outpatient Follow-Up Future Appointments Date Time Provider Department Center 10/28/2024 11:30 AM Flores Ly APRN-SPEECH TEACHER, DNP [id number] [facility] Yelena Garcia MD documented in this [facility] Work Phone: 1(730) 329-975006-01-2025 History of Present illness Narrative* Yelena Garcia MD - 08/21/2024 10:16 AM EDT Marina Moraes is a 78 y.o. female on day 8 of admission presenting with Intussusception (Multi). Status post ileocecectomy. Subjective Patient does not like the foods that she has not been eating much. She denies any nausea. She has been tolerating liquids and states her urine has lightened up in color and she is making adequate volumes. Her I's and O's were not recorded last night. Objective Physical Exam Constitutional: General: She is not in acute distress. Appearance: She is not toxic-appearing. Eyes: General: No scleral icterus. Extraocular Movements: Extraocular movements intact. Pupils: Pupils are equal, round, and reactive to light. Cardiovascular: Rate and Rhythm: Normal rate. Pulmonary: Effort: Pulmonary effort is normal. No respiratory distress. Abdominal: Palpations: Abdomen is soft. Comments: Abdomen is obese and soft. Dressing is removed. She has no drainage from the wound. Thereis no cellulitis. Musculoskeletal: General: No swelling. Neurological: General: No focal deficit present. Mental Status: She is alert and oriented to person, place, and time. Psychiatric: Mood and Affect: Mood normal. Last Recorded Vitals Blood pressure 98/58, pulse 86, temperature 36.5 C (97.7 F), resp. rate 16, height 1.499 m (4' 11), weight 82.3 kg (181 lb 7 oz), SpO2 95%. Intake/Output last 3 Shifts: I/O last 3 completed shifts: In: 3504 (42.6 mL/kg) [P.O.:1342; I.V.:1215 (14.8 mL/kg); NG/GT:690; IV Piggyback:257] Out: 350 (4.3 mL/kg) [Emesis/NG output:350] Weight: 82.3 kg Assessment & Plan Intussusception (Multi) HTN (hypertension) LAURA (obstructive sleep apnea) Immunocompromised Postoperative day #8-9 status post ileocecectomy for intussusception. Pathology is not back yet. Patient states her CPAP was not working last night she took it off and her sats dropped and they put her on oxygen. She states she will wear it at home. She does not think she needs oxygen at home. Her ankles are swollen still and I have offered her more Lasix which she refuses. Discharge instructionsare written and given. Yelena Garcia MD * Julita Stone MD - 08/20/2024 2:56 PM EDT General Surgery Afternoon Rounds Patient tolerated 500cc of a full liquid diet for breakfast. She had 2 loose bowel movements. I advance diet to a soft/low fiber regular diet this afternoon. She has been out of bed and sitting in the chair, and she also got out of bed to shower this morning. However, she has not yet ambulated in the hallway today. We discussed the importance of ambulation and I encouraged her to take at least a c ouple walks this afternoon. Julita Stone MD 08/20/24 2:59 PM * JOSE Caballero - 08/20/2024 2:11 PM EDT Pt reviewed during Care Rounds today and she is not medically ready for discharge. SW met with pt to review her discharge plan and low AMPAC scores. Pt confirms her desires to return home where a friend will be staying with her. She is currently refusing [facility] services indicating her friend has HHC background and will assist. Low AMPAC is from nonparticipation with therapies today re: loose stools.Pt will discharge back home when medically ready without services. No needs identified; Care Transitions will follow as needed. JOSE Caballero * Yelena Garcia MD - 08/20/2024 7:45 AM EDT Marina Moraes is a 78 y.o. female on day 7 of admission presenting with Intussusception (Multi). Status post ileocecectomy. Small bowel follow-through showed no evidence of obstruction yesterday and she began having multiple bowel movements. Subjective She states due to the frequent bowel movements she did not try and eat much because she thought it would just run through her. Residuals have not been too high. I have given her the option of trying to eat more today and checking residuals or simply pulling the tube and then reinserting it if necessary, which I think will be unlikely. She opts for the latter. Objective Physical Exam Constitutional: General: She is not in acute distress. Appearance: She is not toxic-appearing. Eyes: General: No scleral icterus. Extraocular Movements: Extraocular movements intact. Pupils: Pupils are equal, round, and reactive to light. Cardiovascular: Rate and Rhythm: Normal rate. Pulmonary: Effort: Pulmonary effort is normal. No respiratory distress. Abdominal: Palpations: Abdomen is soft. Comments: Obese soft appropriate incisional tenderness. Dressing in place with scant amount of serous drainage inferiorly Musculoskeletal: General: No swelling. Neurological: General: No focal deficit present. Mental Status: She is alert and oriented to person, place, and time. Psychiatric: Mood and Affect: Mood normal. Last Recorded Vitals Blood pressure 110/77, pulse 83, temperature 37.2 C (99 F), temperature source Temporal, resp. rate18, height 1.499 m (4' 11), weight 89.7 kg (197 lb 12 oz), SpO2 91%. Intake/Output last 3 Shifts: I/O last 3 completed shifts: In: 3485 (38.9 mL/kg) [P.O.:360; I.V.:2355 (26.3 mL/kg); NG/GT:770] Out: 1925 (21.5 mL/kg) [Urine:625 (0.2 mL/kg/hr); Emesis/NG output:1300] Weight: 89.7 kg Relevant Results Results for orders placed or performed during the hospital encounter of 08/12/24 (from the past 24 hours) CBC Result Value Ref Range WBC 4.4 4.4 - 11.3 x10*3/uL nRBC 0.0 0.0 - 0.0 /100 WBCs RBC 2.06 (L) 4.00 - 5.20 x10*6/uL Hemoglobin 7.3 (L) 12.0 - 16.0 g/dL Hematocrit 22.2 (L) 36.0 - 46.0 % MCV 108 (H) 80 - 100 fL MCH 35.4 (H) 26.0 - 34.0 pg MCHC 32.9 32.0 - 36.0 g/dL RDW 18.1 (H) 11.5 - 14.5 % Platelets 144 (L) 150 - 450 x10*3/uL Basic Metabolic Panel Result Value Ref Range Glucose 99 74 - 99 mg/dL Sodium 142 136 - 145 mmol/L Potassium 3.3 (L) 3.5 - 5.3 mmol/L Chloride 105 98 - 107 mmol/L Bicarbonate 30 21 - 32 mmol/L Anion Gap 10 10 - 20 mmol/L Urea Nitrogen 16 6 - 23 mg/dL Creatinine 0.66 0.50 - 1.05 mg/dL eGFR >90 >60 mL/min/1.73m*2 Calcium 7.8 (L) 8.6 - 10.3 mg/dL Magnesium Result Value Ref Range Magnesium 1.82 1.60 - 2.40 mg/dL Phosphorus Result Value Ref Range Phosphorus 1.5 (L) 2.5 - 4.9 mg/dL Assessment & Plan Intussusception (Multi) HTN (hypertension) LAURA (obstructive sleep apnea) Immunocompromised Receiving replacement for low potassium and phosphorus. Will give Lasix again today to try and get rid of some of her free water. I will Hep-Lock her IV and discontinue her NG tube. She is on full liquids and I have encouraged her to eat some of these as well as her supplements and we can consider advancing her diet to a soft diet later on today with possible discharge tomorrow or Thursday. Patientis in agreement with plan. Yelena Garcia MD * JOSE Caballero - 08/19/2024 12:55 PM EDT Pt reviewed during Care Rounds today and she is not medically ready for discharge. SW met with pt to review her plan and she confirms her desires to return home. We discussed [facility] services which she is denying. Reporting she has a good informal support, some of which are [facility] staff, who will assist her. We reviewed the IM without questions/concerns. No needs identified; Care Transitions will followas needed. JOSE Caballero * Radha Monahan RDN, BRIAN - 08/19/2024 11:10 AM EDT Nutrition Follow Up Assessment Nutrition Assessment Reason for Assessment: Dietitian discretion Patient is a 78 y.o. female presented with intussusception. She is now POD #6 from ileocecectomy. SBFT was attempted on 08/17, however unsuccessful. NG tube currently clamped. PMH includes breast cancer. Patient was assessed virtually. Nutrition History: Energy Intake: Poor < 50 % Food and Nutrient History: Pt has now been NPO x 7 days. Spoke with family who reports pt has not started liquids yet as they are repeating the SBFT today. They are unsure if pt has been drinking theJuven supplements. Per RN, pt prefers Ensure Clear supplements. Anthropometrics: Height: 149.9 cm (4' 11) Weight: 92.3 kg (203 lb 7.8 oz) BMI (Calculated): 41.08 IBW/kg (Dietitian Calculated): 45 kg Admission Weight Trend: Wt Readings from Last 5 Encounters: 08/19/24 92.3 kg (203 lb 7.8 oz) 07/26/24 83.9 kg (185 lb) 10/29/23 90.7 kg (199 lb 14.4 oz) 10/28/23 90.7 kg (200 lb) 10/09/22 95.5 kg (210 lb 8 oz) Weight Change %: Weight History / % Weight Change: Noted an 8.4 kg GAIN (10% change) from 07/26 to 08/19 - noted edema Significant Weight Gain: Fluid related Nutrition Focused Physical Exam Findings: defer: remote assessment Subcutaneous Fat Loss: Muscle Wasting: Edema: Edema: +2 mild Edema Location: bilateral lower extremities Physical Findings: Skin: Positive (surgical incision to abdomen) Digestive System Findings: Other (Comment) (hypoactive bowel sounds) Nutrition Significant Labs: BMP Trend: Results from last 7 days Lab Units 08/18/24 0501 08/16/24 0546 08/15/24 0440 08/14/24 0531 GLUCOSE mg/dL 70* 59* 70* 94 CALCIUM mg/dL 8.0* 7.9* 7.4* 7.3* SODIUM mmol/L 144 141 140 137 POTASSIUM mmol/L 3.8 3.7 3.6 4.3 CO2 mmol/L 28 22 23 22 CHLORIDE mmol/L 109* 110* 109* 107 BUN mg/dL 19 19 23 24* CREATININE mg/dL 0.76 1.05 1.44* 1.75* , BG POCT trend: Results from last 7 days Lab Units 08/16/24 0729 POCT GLUCOSE mg/dL 89 Nutrition Specific Medications: pantoprazole, 40 mg, oral, Daily before breakfast potassium chloride, 20 mEq, oral, BID lactated Ringer's, 75 mL/hr, Last Rate: Stopped (08/19/24 0754) I/O: Last BM Date: 08/19/24; Stool Appearance: Loose (08/19/24 1351) Dietary Orders (From admission, onward) Start Ordered 08/19/24 1350 Oral nutritional supplements Until discontinued Question Answer Comment Deliver with All meals Select supplement: Ensure Clear 08/19/24 1350 08/19/24 1103 Adult diet Full Liquid Diet effective now Question: Diet type Answer: Full Liquid 08/19/24 1103 08/13/24 0232 May Participate in Room Service ( ROOM SERVICE MAY PARTICIPATE) Once Question: . Answer: Yes 08/13/24 023 Estimated Needs: Total Energy Estimated Needs in 24 hours (kCal): 1230 kCal Method for Estimating Needs: MSJ Total Protein Estimated Needs in 24 Hours (g): (84-100) Method for Estimating 24 Hour Protein Needs: 1.0-1.2g/kg Total Fluid Estimated Needs in 24 Hours (mL): 1230 mL Method for Estimating 24 Hour Fluid Needs: 1ml/kcal or per MD Nutrition Diagnosis Malnutrition Diagnosis Patient has Malnutrition Diagnosis: Yes Diagnosis Status: Active Malnutrition Diagnosis: Moderate malnutrition related to acute disease or injury Related to: poor appetite As Evidenced by: Mild-Moderate subcutaneous fat loss (Triceps), Mild-Moderate Muscle wasting (temporalis, interosseous) Nutrition Diagnosis Patient has Nutrition Diagnosis: Yes Diagnosis Status (1): Active Nutrition Diagnosis 1: Predicted inadequate nutrient intake Related to (1): intussusception As Evidenced by (1): pt reported n/v poor po intake, weight loss upon admission Nutrition Interventions/Recommendations Nutrition Prescription: Individualized Nutrition Prescription Provided for : Advance diet per MD direction. Adjust supplement orders to provide Ensure Clear TID (720 kcal, 24 gm protein) Nutrition Interventions: Food and/or Nutrient Delivery Interventions Interventions: Meals and snacks, Medical food supplement Goal: Advance diet per MD. If unable to advance to full liquids today, consider TPN as pt has now been NPO x 7 days. Goal: Adjust supplement orders to provide Ensure Clear TID (720 kcal, 24 gm protein total) Coordination of Nutrition Care by a Nutrition Professional Goal: Spoke with RNLakshmi Nutrition Education: Nutrition Monitoring and Evaluation Food/Nutrient Related History Monitoring Monitoring and Evaluation Plan: Intake / amount of food Intake / Amount of food: Consumes at least 75% or more of meals/snacks/supplements Anthropometric Measurements Monitoring and Evaluation Plan: Body weight Body Weight: Body weight - Weight reduction from fluids, as needed Biochemical Data, Medical Tests and Procedures Monitoring and Evaluation Plan: Electrolyte/renal panel Electrolyte and Renal Panel: Electrolytes within normal limits Goal Status: Some digression away from goal(s) Time Spent/Follow-up Reminder: Time Spent (min): 60 minutes Last Date of Nutrition Visit: 08/19/24 Nutrition Follow-Up Needed?: Dietitian to reassess per policy Follow up Comment: Mod mal, NPO x 7 days 08/19/24 at 1:53 PM - RADHA MONAHAN RDN, LD * Yelena Garcia MD - 08/19/2024 7:39 AM EDT Marina Moraes is a 78 y.o. female on day 6 of admission presenting with Intussusception (Multi). Subjective Patient continues to pass small amounts of gas. She feels like her bowels will move today. Objective Physical Exam Constitutional: General: She is not in acute distress. Appearance: She is not toxic-appearing. Eyes: General: No scleral icterus. Extraocular Movements: Extraocular movements intact. Pupils: Pupils are equal, round, and reactive to light. Cardiovascular: Rate and Rhythm: Normal rate. Pulmonary: Effort: Pulmonary effort is normal. No respiratory distress. Abdominal: Palpations: Abdomen is soft. Tenderness: There is no abdominal tenderness. Comments: Obese with dressing in place. Inferior portion of dressing with serous drainage. No obvious cellulitis. Musculoskeletal: General: No swelling. Neurological: General: No focal deficit present. Mental Status: She is alert and oriented to person, place, and time. Psychiatric: Mood and Affect: Mood normal. Last Recorded Vitals Blood pressure 96/58, pulse 73, temperature 36.3 C (97.3 F), temperature source Temporal, resp. rate 18, height 1.499 m (4' 11), weight 92.3 kg (203 lb 7.8 oz), SpO2 97%. Intake/Output last 3 Shifts: I/O last 3 completed shifts: In: 1145 (12.4 mL/kg) [P.O.:120; I.V.:835 (9 mL/kg); NG/GT:190] Out: 2725 (29.5 mL/kg) [Urine:1200 (0.4 mL/kg/hr); Emesis/NG output:1525] Weight: 92.3 kg Relevant Results Assessment & Plan Intussusception (Multi) HTN (hypertension) LAURA (obstructive sleep apnea) Immunocompromised Essentially postoperative day #6 status post ileocecectomy for intussusception. Patient has a prolonged postop ileus. We have tried to do a small bowel follow- through the other day and it did not move anywhere and she ended up vomiting. She is now passing gas. She feels like she may move her bowelstoday. Her feet appear swollen and she is 8 kg over her dry weight at least what was listed in the chart. She is complaining of thick secretions that are in her hypopharynx. We again encouraged ambulation. I will give some Lasix to see if this does not help her diuresis and maybe help shrink down her small bowel. We will check acute abdominal series and depending on how it looks consider repeat small bowel follow-through. The patient is willing to try it if indicated. If not we could consider doing a Gastrografin challenge this weekend. Emotional support is given. Yelena Garcia MD * JOSE Caballero - 08/18/2024 5:10 PM EDT Pt reviewed during Care Rounds today and she is not medically ready for discharge. Attempted to meet with pt to review her discharge plan re: [facility]; however, she was occupied with nursing and then family. The plan on assessment was to return home without needs. Care Transitions will continue to follow. JOSE Caballero * Yelena Garcia MD - 08/18/2024 3:34 PM EDT Marina Moraes is a 78 y.o. female on day 5 of admission presenting with Intussusception (Multi). Subjective Patient states she is passed flatus. She is beginning to have some crampy abdominal pain. She is ingood spirits because she has had numerous close friends as visitors today and someone told her theyhad had an NG tube for 14 days so now she does not feel like she is an outlier. She had a shower today and feels much better. Objective Physical Exam Constitutional: General: She is not in acute distress. Appearance: She is not toxic-appearing. Eyes: General: No scleral icterus. Extraocular Movements: Extraocular movements intact. Pupils: Pupils are equal, round, and reactive to light. Cardiovascular: Rate and Rhythm: Normal rate. Pulmonary: Effort: Pulmonary effort is normal. No respiratory distress. Abdominal: Palpations: Abdomen is soft. Comments: Obese soft incisional tenderness. Dressing with serous drainage underneath Musculoskeletal: General: No swelling. Neurological: General: No focal deficit present. Mental Status: She is alert and oriented to person, place, and time. Psychiatric: Mood and Affect: Mood normal. Last Recorded Vitals Blood pressure 142/80, pulse 73, temperature 36.1 C (97 F), temperature source Temporal, resp. rate16, height 1.499 m (4' 11), weight 91.2 kg (201 lb 1 oz), SpO2 97%. Intake/Output last 3 Shifts: I/O last 3 completed shifts: In: 5527.5 (60.6 mL/kg) [P.O.:420; I.V.:4647.5 (51 mL/kg); NG/GT:110; IV Piggyback:350] Out: 2975 (32.6 mL/kg) [Urine:1275 (0.4 mL/kg/hr); Emesis/NG output:1700] Weight: 91.2 kg Relevant Results Results for orders placed or performed during the hospital encounter of 08/12/24 (from the past 24 hours) CBC Result Value Ref Range WBC 2.5 (L) 4.4 - 11.3 x10*3/uL nRBC 0.0 0.0 - 0.0 /100 WBCs RBC 2.27 (L) 4.00 - 5.20 x10*6/uL Hemoglobin 7.9 (L) 12.0 - 16.0 g/dL Hematocrit 24.8 (L) 36.0 - 46.0 % MCV 109 (H) 80 - 100 fL MCH 34.8 (H) 26.0 - 34.0 pg MCHC 31.9 (L) 32.0 - 36.0 g/dL RDW 18.0 (H) 11.5 - 14.5 % Platelets 135 (L) 150 - 450 x10*3/uL Basic Metabolic Panel Result Value Ref Range Glucose 70 (L) 74 - 99 mg/dL Sodium 144 136 - 145 mmol/L Potassium 3.8 3.5 - 5.3 mmol/L Chloride 109 (H) 98 - 107 mmol/L Bicarbonate 28 21 - 32 mmol/L Anion Gap 11 10 - 20 mmol/L Urea Nitrogen 19 6 - 23 mg/dL Creatinine 0.76 0.50 - 1.05 mg/dL eGFR 81 >60 mL/min/1.73m*2 Calcium 8.0 (L) 8.6 - 10.3 mg/dL Magnesium Result Value Ref Range Magnesium 2.18 1.60 - 2.40 mg/dL Phosphorus Result Value Ref Range Phosphorus 1.6 (L) 2.5 - 4.9 mg/dL SST TOP Result Value Ref Range Extra Tube Hold for add-ons. Malnutrition Diagnosis Status: New Malnutrition Diagnosis: Moderate malnutrition related to acute disease or injury Related to: poor appetite As Evidenced by: Mild-Moderate subcutaneous fat loss (Triceps), Mild-Moderate Muscle wasting (temporalis, interosseous) I agree with the dietitian's malnutrition diagnosis. Assessment & Plan Intussusception (Multi) HTN (hypertension) LAURA (obstructive sleep apnea) Immunocompromised K-Phos replaced today. IV is running at 75. I anticipate her moving her bowels in the next day or so. As her NG output comes down we will clamp it and begin clears and see how she tolerates and then advance her as tolerated. Words of encouragement are given. I have placed orders for the showers andthe dressing changes so she does not run into any difficulty. Yelena Garcia MD * Mesha Simpson Colt, RETAIL SPECIALIST - 08/18/2024 12:23 PM EDT Physical Therapy Physical Therapy Treatment Patient Name: Marina Moraes Department: [facility] Room: [address] [place] [address] Today's Date: 08/18/2024 Time Calculation Start Time: 1132 Stop Time: 1151 Time Calculation (min): 19 min Assessment/Plan PT Assessment PT Assessment Results: Decreased endurance, Decreased mobility, Impaired balance, Decreased safety awareness, Decreased skin integrity, Pain Rehab Prognosis: Excellent Barriers to Discharge Home: No anticipated barriers End of Session Communication: Bedside nurse Assessment Comment: Pt. with fair tolerance with heel raises and ankle pumps. Pt. has c/o swelling on her lower legs/feet. Pt. walked in room with no LOB noted. RETAIL SPECIALIST assisted with line mangament. Pt. denies feeling fatigued or SOB at end of session. End of Session Patient Position: Up in chair, Alarm off, not on at start of session (call light within reach) PT Plan Inpatient/Swing Bed or Outpatient: Inpatient PT Plan Treatment/Interventions: Bed mobility, Transfer training, Gait training, Balance training, Endurance training, Therapeutic exercise, Therapeutic activity, Home exercise program PT Plan: Ongoing PT PT Frequency: 3 times per week PT Discharge Recommendations: Low intensity level of continued care PT Recommended Transfer Status: Stand by assist PT - OK to Discharge: Yes PT Visit Info: PT Received On: 08/18/24 General Visit Information: General Reason for Referral: impaired mobility; 78 year old female admitted for ileocolic intussusception with ileocecectomy on 08/12/24. Referred By: Jose Past Medical History Relevant to Rehab: metastatic breast CA Family/Caregiver Present: No Prior to Session Communication: Bedside nurse Patient Position Received: Up in chair, Alarm off, not on at start of session General Comment: pt agreeable to assessment. pt states she has been going to and from bathroom independently at times as well as walking hallway Subjective Precautions: Precautions Medical Precautions: Abdominal precautions, Other (comment), Fall precautions, Oxygen therapy device and L/min (large abdominal incision; 2L) Date/Time Vitals Session Patient Position Pulse Resp SpO2 BP MAP (mmHg) 08/18/24 1132 -- -- -- -- 97 % -- -- Objective Pain: Pain Assessment 0-10 (Numeric) Pain Score: 1 (soreness with abdomen) Cognition: Cognition Orientation Level: Oriented X4 Coordination: Postural Control: Activity Tolerance: Activity Tolerance Endurance: Endurance does not limit participation in activity Treatments: Therapeutic Exercise Therapeutic Exercise Performed: Yes Therapeutic Exercise Activity 1: seated HR's x10 B Therapeutic Exercise Activity 2: seated LAQ's x10 B Therapeutic Exercise Activity 3: seated ankle pumps x10 B Ambulation/Gait Training Ambulation/Gait Training Performed: Yes Ambulation/Gait Training 1 Surface 1: Level tile Device 1: Rolling walker Gait Support Devices: Gait belt Assistance 1: Close supervision Quality of Gait 1: Forward flexed posture Comments/Distance (ft) 1: 35ft x2 Transfers Transfer: Yes Transfer 1 Technique 1: Sit to stand, Stand to sit Transfer Device 1: Walker Transfer Level of Assistance 1: Modified independent Outcome Measures: [facility] Basic Mobility Turning from your back to your side while in a flat bed without using bedrails: A little Moving from lying on your back to sitting on the side of a flat bed without using bedrails: A little Moving to and from bed to chair (including a wheelchair): A little Standing up from a chair using your arms (e.g. wheelchair or bedside chair): A little To walk in hospital room: A little Climbing 3-5 steps with railing: Total Basic Mobility - Total Score: 16 Education Documentation Mobility Training, taught by Mesha Gregory PTA at 08/18/2024 12:20 PM. Learner: Patient Readiness: Acceptance Method: Explanation Response: Verbalizes Understanding Education Comments No comments found. OP EDUCATION: Encounter Problems Encounter Problems (Active) PT Problem PT Goal 1 Start: 08/17/24 Expected End: 08/31/24 Marina Moraes will be independent with bed mobility for supine to and from sitting EOB and utilizing log roll and sidelying to sit, without use of rail and bed flat PT Goal 2 Start: 08/17/24 Expected End: 08/31/24 Marina Moraes will ambulate 75 ft without assistive device , level surface, good balance, steady SBA PT Goal 3 Start: 08/17/24 Expected End: 08/31/24 Patient will have improved activity tolerance to participate in 30 min PT session with 3 or less 1 min rest breaks PT Goal 4 Start: 08/17/24 Expected End: 08/31/24 Pain - Adult Cosigned by Soila Corea, PT at 08/19/2024 8:18 AM EDT * Margret Holguin RDN, LD - 08/17/2024 1:01 PM EDT Nutrition Initial Assessment: Nutrition Assessment Reason for Assessment: Dietitian discretion Patient is a 78 y.o. female presenting with Intussusception Medical History[1] Nutrition History: Energy Intake: Poor < 50 % Food and Nutrient History: pt reports eating 2-3 meals/day. more small frequent meals. pt reports since passed, less cooking taking place. may have a egg sandwhich or a grilled cheese. pt reports for the last several months, decrease in po intake d/t n/v abdominal pain. 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 states d/t poor po intake pt has use this to her advantage to loose weight. per H&-pt reported 25lb weight loss on admission. per EMR, pt with a 15lb weight loss in 9 months. Significant Weight Loss: No Nutrition Focused Physical Exam Findings: Subcutaneous Fat Loss: Orbital Fat Pads: Well nourished (slightly bulging fat pads) Buccal Fat Pads: Well nourished (full, rounded cheeks) Triceps: Mild-Moderate (less than ample fat tissue) Muscle Wasting: Temporalis: Mild-Moderate (slight depression) Pectoralis (Clavicular Region): Well nourished (clavicle not visible) Deltoid/Trapezius: Well nourished (rounded appearance at arm, shoulder, neck) Interosseous: Mild-Moderate (slightly depressed area between thumb and forefinger) Edema: Edema: none Physical Findings: Digestive System Findings: Abdominal pain, Nausea, Vomiting Nutrition Significant Labs: CBC Trend: Results from last 7 days Lab Units 08/16/24 0546 08/15/24 0440 08/14/24 0531 08/13/24 1836 WBC AUTO x10*3/uL 2.6* 1.7* 1.7* 2.0* RBC AUTO x10*6/uL 2.33* 2.17* 2.40* 3.01* HEMOGLOBIN g/dL 8.4* 7.9* 8.6* 10.8* HEMATOCRIT % 25.8* 24.0* 26.6* 32.3* MCV fL 111* 111* 111* 107* PLATELETS AUTO x10*3/uL 128* 133* 128* 138* , BMP Trend: Results from last 7 days Lab Units 08/16/24 0546 08/15/24 0440 08/14/24 0531 08/13/24 1836 GLUCOSE mg/dL 59* 70* 94 106* CALCIUM mg/dL 7.9* 7.4* 7.3* 7.8* SODIUM mmol/L 141 140 137 137 POTASSIUM mmol/L 3.7 3.6 4.3 4.5 CO2 mmol/L 22 23 22 24 CHLORIDE mmol/L 110* 109* 107 105 BUN mg/dL 19 23 24* 19 CREATININE mg/dL 1.05 1.44* 1.75* 1.78* , A1C:No results found for: HGBA1C Nutrition Specific Medications: Scheduled Medications[2] I/O: ; Dietary Orders (From admission, onward) Start Ordered 08/13/241944 NPO Diet Except: Ice chips, Sips with meds; Effective now Diet effective now Comments: May have popsicles Question Answer Comment Except: Ice chips Except: Sips with meds 08/13/24194408/13/24 0232 May Participate in Room Service ( ROOM SERVICE MAY PARTICIPATE) Once Question: . Answer: Yes 08/13/24230 Estimated Needs: Total Energy Estimated Needs in 24 hours (kCal): 1230 kCal Method for Estimating Needs: MSJ Total Protein Estimated Needs in 24 Hours (g): (84-100) Method for Estimating 24 Hour Protein Needs: 1.0-1.2g/kg Total Fluid Estimated Needs in 24 Hours (mL): 1230 mL Method for Estimating 24 Hour Fluid Needs: 1ml/kcal or per MD Nutrition Diagnosis Malnutrition Diagnosis Patient has Malnutrition Diagnosis: Yes Diagnosis Status: New Malnutrition Diagnosis: Moderate malnutrition related to acute disease or injury Related to: poor appetite As Evidenced by: Mild-Moderate subcutaneous fat loss (Triceps), Mild-Moderate Muscle wasting (temporalis, interosseous) Nutrition Diagnosis Patient has Nutrition Diagnosis: Yes Diagnosis Status (1): Active Nutrition Diagnosis 1: Predicted inadequate nutrient intake Related to (1): intussusception As Evidenced by (1): pt reported n/v poor po intake, weight loss upon admission Nutrition Interventions/Recommendations Nutrition prescription for parenteral nutrition Nutrition Recommendations: Individualized Nutrition Prescription Provided for : if unable to advance diet, consider nutrition support. PPN @30ml/hr Nutrition Interventions/Goals: Parenteral Nutrition: Management of delivery rate of parenteral nutrition Goal: start PPN Clinimix 4.25/5@ 30ml/hr advance as appropriate to goal rate of 80ml/hr to meet protein needs Coordination of Care with Providers: Provider Goal: to attend daily care rounds Additional Interventions: if unable to advance diet, consider nutrition support Education Documentation No documentation found. Nutrition Monitoring and Evaluation Food/Nutrient Related History Monitoring Monitoring and Evaluation Plan: Enteral and parenteral nutrition intake determination Enteral and Parenteral Nutrition Intake Determination: Parenteral nutrition intake - Titrate to goal without metabolic complications Additional Plans: diet advancement vs NS Anthropometric Measurements Monitoring and Evaluation Plan: Body weight, Body weight change Body Weight: Body weight - Maintain stable weight Body Weight Change: Body weight gain - Gradual weight gain Biochemical Data, Medical Tests and Procedures Monitoring and Evaluation Plan: Electrolyte/renal panel, Glucose/endocrine profile Electrolyte and Renal Panel: Electrolytes within normal limits, Magnesium, Phosphorus, Potassium Criteria: WNL Glucose/Endocrine Profile: Glucose within normal limits (80-180 mg/dL) Physical Exam Findings Monitoring and Evaluation Plan: Adipose, Muscles Adipose Finding: Loss of subcutaneous fat Criteria: pt to maintain and gain subcutaneous fat Muscle Finding: Muscle atrophy Criteria: pt maintain and gain muscle mass Goal Status: Some digression away from goal(s) Time Spent (min): 60 minutes 08/17/24 at 1:27 PM - MARGRET HOLGUIN RDN, LD [1] Past Medical History: Diagnosis Date Breast CA [2] carvedilol, 12.5 mg, oral, BID enoxaparin, 40 mg, subcutaneous, q24h pantoprazole, 40 mg, oral, Daily before breakfast potassium chloride, 20 mEq, oral, BID venlafaxine XR, 37.5 mg, oral, Daily with breakfast * Soila Corea, PT - 08/17/2024 11:07 AM EDT Physical Therapy Physical Therapy Evaluation & Treatment Patient Name: Marina Moraes Department: [facility] Room: 314/314-A Today's Date: 08/17/2024 Time Calculation Start Time: 850 Stop Time: 931 Time Calculation (min): 41 min Assessment/Plan Skilled PT intervention is indicated due to patient presents with deficits in bed mobility, transfers, gait, stair negotiation, strength, activity tolerance, and safety awareness. Patient with recent abdominal surgery and now has decreased mobility and is using a FWW for mobility due to pain and weakness (was indep at [facility]). Recommend continued physical therapy intervention at a low intensity following hospitalization to improve strength, balance, mobility and reduce fall risk. Continue ambulation with FWW. PT Assessment PT Assessment Results: Decreased endurance, Decreased mobility, Impaired balance, Decreased safety awareness, Decreased skin integrity, Pain Rehab Prognosis: Excellent Barriers to Discharge Home: No anticipated barriers Evaluation/Treatment Tolerance: Patient tolerated treatment well End of Session Communication: Bedside nurse (communication on white board) End of Session Patient Position: Up in chair, Alarm off, not on at start of session (call light in reach) IP OR SWING BED PT PLAN Inpatient or Swing Bed: Inpatient PT Plan Treatment/Interventions: Bed mobility, Transfer training, Gait training, Balance training, Endurance training, Therapeutic exercise, Therapeutic activity, Home exercise program PT Plan: Ongoing PT PT Frequency: 3 times per week PT Discharge Recommendations: Low intensity level of continued care PT Recommended Transfer Status: Stand by assist PT - OK to Discharge: (once medically appropriate and safe DC plan in place) Subjective PT Visit Info: PT Received On: 08/17/24 General Visit Information: General Reason for Referral: impaired mobility; 78 year old female admitted for ileocolic intussusception with ileocecectomy on 08/12/24. Referred By: Jose Past Medical History Relevant to Rehab: metastatic breast CA Family/Caregiver Present: No Co-Treatment: OT (partial) Co-Treatment Reason: to maximize pt safety with mobility Prior to Session Communication: Bedside nurse (nurse present and disconnects NG suction) Patient Position Received: Bed, 2 rail up, Alarm off, not on at start of session General Comment: pt agreeable to assessment. pt states she has been going to and from bathroom independently at times as well as walking hallway Home Living: Home Living Type of Home: House Lives With: Alone Home Adaptive Equipment: Wheelchair-manual, Cane, Walker rolling or standard Home Layout: One level Home Access: Level entry Bathroom Shower/Tub: Walk-in shower Bathroom Equipment: Grab bars in shower, Built-in shower seat Home Living Comments: sleeps in regular bed, no rail Prior Level of Function: Prior Function Per Pt/Caregiver Report ADL Assistance: Independent Homemaking Assistance: Independent (pt has a cleaning lady and mower) Ambulatory Assistance: Independent (no device) 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 ) Prior Function Comments: + drives Precautions: Precautions Medical Precautions: Abdominal precautions, Other (comment), Fall precautions, Oxygen therapy device and L/min (large abdominal incision; 2L) Objective Pain: Pain Assessment Pain Assessment: 0-10 0-10 (Numeric) Pain Score: 4 Pain Type: Surgical pain Pain Location: Abdomen Cognition: Cognition Overall Cognitive Status: Within Functional Limits Orientation Level: Oriented X4 General Assessments: Activity Tolerance Endurance: Endurance does not limit participation in activity Sensation Light Touch: No apparent deficits Strength Strength Comments: LES grossly >/=4-/5 Strength Strength Comments: LES grossly >/=4-/5 Coordination Movements are Fluid and Coordinated: Yes Static Sitting Balance Static Sitting-Balance Support: Feet supported Static Sitting-Level of Assistance: Independent Dynamic Sitting Balance Dynamic Sitting-Balance Support: Feet supported Dynamic Sitting-Level of Assistance: Independent Dynamic Sitting-Balance: Forward lean Static Standing Balance Static Standing-Balance Support: No upper extremity supported Static Standing-Level of Assistance: Contact guard Static Standing-Comment/Number of Minutes: reaching for UE support with mild LOB with PT tighteningabdominal binder and patient request Dynamic Standing Balance Dynamic Standing-Balance Support: No upper extremity supported Dynamic Standing-Level of Assistance: Contact guard Dynamic Standing-Balance: Turning Dynamic Standing-Comments: reaching for UE support for balance Functional Assessments: Bed Mobility Bed Mobility: Yes Bed Mobility 1 Bed Mobility 1: Supine to sitting, Log roll, Side lying left to sit Level of Assistance 1: Minimum assistance Bed Mobility Comments 1: education on log rolling and sidelying to sit Transfers Transfer: Yes Transfer 1 Technique 1: Sit to stand, Stand to sit Transfer Device 1: Walker Transfer Level of Assistance 1: Modified independent Ambulation/Gait Training Ambulation/Gait Training Performed: Yes Ambulation/Gait Training 1 Surface 1: Level tile Device 1: Rolling walker Gait Support Devices: Gait belt Assistance 1: Close supervision Quality of Gait 1: (extra time) Comments/Distance (ft) 1: 96ft, PT managing IV and O2 Treatments: Therapeutic activities for moblity and transfer training Bed Mobility Bed Mobility: Yes Bed Mobility 1 Bed Mobility 1: Supine to sitting, Log roll, Side lying left to sit Level of Assistance 1: Minimum assistance Bed Mobility Comments 1: education on log rolling and sidelying to sit Ambulation/Gait Training Ambulation/Gait Training Performed: Yes Ambulation/Gait Training 1 Surface 1: Level tile Device 1: Rolling walker Gait Support Devices: Gait belt Assistance 1: Close supervision Quality of Gait 1: (extra time) Comments/Distance (ft) 1: 96ft, PT managing IV and O2 Transfers Transfer: Yes Transfer 1 Technique 1: Sit to stand, Stand to sit Transfer Device 1: Walker Transfer Level of Assistance 1: Modified independent Outcome Measures: [facility] Basic Mobility Turning from your back to your side while in a flat bed without using bedrails: A little Moving from lying on your back to sitting on the side of a flat bed without using bedrails: A little Moving to and from bed to chair (including a wheelchair): A little Standing up from a chair using your arms (e.g. wheelchair or bedside chair): A little To walk in hospital room: A little Climbing 3-5 steps with railing: Total Basic Mobility - Total Score: 16 Encounter Problems Encounter Problems (Active) PT Problem PT Goal 1 Start: 08/17/24 Expected End: 08/31/24 Marina Moraes will be independent with bed mobility for supine to and from sitting EOB and utilizing log roll and sidelying to sit, without use of rail and bed flat PT Goal 2 Start: 08/17/24 Expected End: 08/31/24 Marina Moraes will ambulate 75 ft without assistive device , level surface, good balance, steady SBA PT Goal 3 Start: 08/17/24 Expected End: 08/31/24 Patient will have improved activity tolerance to participate in 30 min PT session with 3 or less 1 min rest breaks PT Goal 4 Start: 08/17/24 Expected End: 08/31/24 Pain - Adult Education Documentation Mobility Training, taught by Soila Corea PT at 08/17/2024 11:04 AM. Learner: Patient Readiness: Acceptance Method: Explanation, Demonstration Response: Verbalizes Understanding, Demonstrated Understanding, Needs Reinforcement Comment: log rolling and sidelying to sit for bed mobility; safety with transfers and mobility wihtdevice Education Comments No comments found. * ABBY Carvalho - 08/17/2024 11:05 AM EDT Per medical team, patient is not yet medically appropriate for discharge; Patient may require a small bowel follow through which will likely require another 24 to 48 hours in the hospital. Tool Supervisor met with patient at bedside to review plan and Medicare IM. Patient declining HHC at this time; s tating that patient will request same through PCP if patient returns home and feels HHC is necessary after all. - 1500: SW asked Dr. Garcia and pharm/Chacorta to clarify need for Midline, placed yesterday. Dr Garcia confirmed that patient will likely ONLY need Midline for IV access while patient is in the hospital due to difficult IV placement. Patient will not likely need IVs upon discharge. Patient's current plan is to return home when medically ready with no Care Transitions needs foreseen. Care Transitions to follow and assist should any new needs arise. ABBY Oesguera * Yelena Garcia MD - 08/17/2024 10:51 AM EDT Marina Moraes is a 78 y.o. female on day 4 of admission presenting with Intussusception (Multi). Status post ileocecectomy patient also has a history of metastatic breast cancer with mets that make her white count low Subjective Patient's mood is better today. She states however that she has been having episodes of nausea which usually respond to her drinking some water to get the NG tube working or having the nurses fixed the NG tube. She denies any flatus. She states infusion of the antibiotics correlates with some of the nausea. We will DC them. Is been 5 days. I kept them running due to her immunocompromise state. Objective Physical Exam Constitutional: General: She is not in acute distress. Appearance: She is not toxic-appearing. Eyes: General: No scleral icterus. Extraocular Movements: Extraocular movements intact. Pupils: Pupils are equal, round, and reactive to light. Cardiovascular: Rate and Rhythm: Normal rate. Pulmonary: Effort: Pulmonary effort is normal. No respiratory distress. Abdominal: Palpations: Abdomen is soft. Comments: Dressing was serous drainage Musculoskeletal: General: No swelling. Neurological: General: No focal deficit present. Mental Status: She is alert and oriented to person, place, and time. Psychiatric: Mood and Affect: Mood normal. Left upper extremity midline Last Recorded Vitals Blood pressure (!) 142/94, pulse 72, temperature 36.3 C (97.3 F), temperature source Temporal, resp. rate 18, height 1.499 m (4' 11), weight 90.6 kg (199 lb 11.8 oz), SpO2 95%. Intake/Output last 3 Shifts: I/O last 3 completed shifts: In: 6387.5 (70.5 mL/kg) [P.O.:300; I.V.:5397.5 (59.6 mL/kg); NG/GT:140; IV Piggyback:550] Out: 2645 (29.2 mL/kg) [Urine:970 (0.3 mL/kg/hr); Emesis/NG output:1675] Weight: 90.6 kg Relevant Results No labs were done today. She is on twice daily K liquid Assessment & Plan Intussusception (Multi) HTN (hypertension) LAURA (obstructive sleep apnea) Immunocompromised She is maintained on her home medications. Blood pressures for the most part controlled but she hasoccasional hypertension. She cannot wear her CPAP with the NG tube. Given the lack of bowel activity we will check a small bowel follow- through. I explained to her I think it is most likely just swelling at the anastomosis but this may be diagnostic as well as therapeutic. She agrees. Yelena Garcia MD * Niharika Goodman, OT - 08/17/2024 10:47 AM EDT Occupational Therapy Evaluation and Treatment Patient Name: Marina Moraes Today's Date: 08/17/2024 Time Calculation Start Time: 0850 Stop Time: 0913 Time Calculation (min): 23 min 314/314-A Assessment IP OT Assessment OT Assessment: pt initially needed assist for LB ADLs due to large incision and pain in abdomen. ptis educated on use of long handle AE for ADLs and where to purchase equipment. pt is able to returndemo all education with 100% accuracy. No further OT recommended at this time. Prognosis: Excellent Barriers to Discharge Home: No anticipated barriers Evaluation/Treatment Tolerance: Patient tolerated treatment well Medical Staff Made Aware: Yes End of Session Communication: (communication on white board) End of Session Patient Position: (pt left with PT) Plan: Treatment Interventions: ADL retraining OT Frequency: Other (Comment) (OT eval and 1 tx at time of eval) OT Discharge Recommendations: No further acute OT, No OT needed after discharge Equipment Recommended upon Discharge: Other (comment) (sock aid, leasing machine tender) OT Recommended Transfer Status: Stand by assist OT - OK to Discharge: Yes (once medically stable) Subjective Current Problem: 1. Intussusception (Multi) Case Request Operating Room: COLECTOMY, right hemicolectomy Case Request Operating Room: COLECTOMY, right hemicolectomy Surgical Pathology Exam Surgical Pathology Exam 2. Upper abdominal pain 3. Intussusception, ileocecal (Multi) 4. Intestinal obstruction, unspecified cause, unspecified whether partial or complete (Multi) General: General Reason for Referral: 78 year old female admitted for ileocolic intussusception with ileocecectomy on 08/12/24. Referred By: Jose Past Medical History Relevant to Rehab: metastatic breast CA Family/Caregiver Present: No Co-Treatment: PT Co-Treatment Reason: to maximize pt safety Prior to Session Communication: Bedside nurse (nurse present and disconnects NG suction) Patient Position Received: Bed, 2 rail up, Alarm off, not on at start of session General Comment: pt agreeable to assessment. pt states she has been going to and from bathroom independently at times Precautions: Medical Precautions: Abdominal precautions, Other (comment), Fall precautions (large abdominal incision) Vital Signs: Vital Signs Comment: no concerns Pain: Pain Assessment Pain Assessment: 0-10 0-10 (Numeric) Pain Score: 4 Pain Type: Surgical pain Pain Location: Abdomen Objective Cognition: Overall Cognitive Status: Within Functional Limits Orientation Level: Oriented X4 Home Living: Type of Home: House Lives With: Alone Home Adaptive Equipment: Wheelchair-manual, Cane, Walker rolling or standard Home Layout: One level Home Access: Level entry Bathroom Shower/Tub: Walk-in shower Bathroom Equipment: Grab bars in shower, Built-in shower seat Home Living Comments: sleeps in regular bed Prior Function: ADL Assistance: Independent Homemaking Assistance: Independent (pt has a cleaning lady and mower) Ambulatory Assistance: Independent (no device) 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 ) Prior Function Comments: + drives ADL: Eating Assistance: Other (Comment) (pt is NPO yet per clinical judgement would be indep in self feeding) Grooming Assistance: Independent Bathing Assistance: Stand by UE Dressing Assistance: Stand by LE Dressing Assistance: Moderate (pt was moderate assist but with education on AE for ADLs (leasing machine tender, sock aid) was able to return demo appropriate use and increase indep to supervision.) Toileting Assistance with Device: Modified independent (extra time) Activity Tolerance: Endurance: Endurance does not limit participation in activity Bed Mobility/Transfers: Bed Mobility Bed Mobility: Yes Bed Mobility 1 Bed Mobility 1: Supine to sitting, Log roll Level of Assistance 1: Minimum assistance Bed Mobility Comments 1: education on how to log roll correctly Transfers Transfer: Yes Transfer 1 Technique 1: Sit to stand, Stand to sit Transfer Device 1: Walker Transfer Level of Assistance 1: Modified independent Ambulation/Gait Training: Functional Mobility Functional Mobility Performed: Yes Functional Mobility 1 Surface 1: Level tile Device 1: Rolling walker Assistance 1: Close supervision Vision: Vision - Basic Assessment Current Vision: No visual deficits Sensation: Light Touch: No apparent deficits Strength: Strength Comments: MAGDA WNL Perception: Coordination: Movements are Fluid and Coordinated: Yes Outcome Measures: [facility] Daily Activity Putting on and taking off regular lower body clothing: A little (after education and training on long handled AE) Bathing (including washing, rinsing, drying): A little Putting on and taking off regular upper body clothing: A little Toileting, which includes using toilet, bedpan or urinal: None Taking care of personal grooming such as brushing teeth: None Eating Meals: None Daily Activity - Total Score: 21 EDUCATION: Education Documentation ADL Training, taught by Niharika Goodman OT at 08/17/2024 10:48 AM. Learner: Patient Readiness: Acceptance Method: Explanation, Demonstration Response: Verbalizes Understanding, Demonstrated Understanding Comment: use of AE for ADLs- sock aid and leasing machine tender Education Comments No comments found. * ABYB Carvalho - 08/16/2024 11:10 AM EDT Per medical team, patient is not yet medically appropriate for discharge; will likely require another 48 hours in the hospital. Tool Supervisor went to patient's room to review plan; Patient currently having Midline placed. No family present. SW to visit again at a later time. - 1615: Per surgeon/Dr. Garcia, PT/OT orders are indicated, and will order same. Patient's current plan TBD, pending PT/OT evals. Patient has been hoping to return home when medically ready with no Care Transitions needs foreseen. Care Transitions to follow and assist as patient's discharge planning needs become clearer. ABBY Oseguera * Yelena Garcia MD - 08/16/2024 10:27 AM EDT Marina Moraes is a 78 y.o. female on day 3 of admission presenting with Intussusception (Multi). Patient is postop day 3.5 status post ileocecectomy for intussusception. Subjective She states her pain continues to be minimal. She has not passed gas nor moved her bowels. NG tube still putting out about 300. She states she is starting to get depressed because her bowels have not moved. Objective Physical Exam Constitutional: General: She is not in acute distress. Appearance: She is not toxic-appearing. Eyes: General: No scleral icterus. Extraocular Movements: Extraocular movements intact. Pupils: Pupils are equal, round, and reactive to light. Cardiovascular: Rate and Rhythm: Normal rate. Pulmonary: Effort: Pulmonary effort is normal. No respiratory distress. Abdominal: Palpations: Abdomen is soft. Comments: Obese with midline incision with dressing covering with serous drainage centrally. This will be changed today. She is wearing an abdominal binder although it tends to ride up given her bodyhabitus. Musculoskeletal: General: No swelling. Neurological: General: No focal deficit present. Mental Status: She is alert and oriented to person, place, and time. Psychiatric: Mood and Affect: Mood normal. Last Recorded Vitals Blood pressure 167/71, pulse 62, temperature 36.3 C (97.3 F), temperature source Temporal, resp. rate 16, height 1.499 m (4' 11), weight 88.2 kg (194 lb 7.1 oz), SpO2 98%. Intake/Output last 3 Shifts: I/O last 3 completed shifts: In: 2781.3 (31.5 mL/kg) [P.O.:60; I.V.:1811.3 (20.5 mL/kg); NG/GT:310; IV Piggyback:600] Out: 2750 (31.2 mL/kg) [Urine:1625 (0.5 mL/kg/hr); Emesis/NG output:1125] Weight: 88.2 kg Relevant Results Results for orders placed or performed during the hospital encounter of 08/12/24 (from the past 24 hours) CBC Result Value Ref Range WBC 2.6 (L) 4.4 - 11.3 x10*3/uL nRBC 0.0 0.0 - 0.0 /100 WBCs RBC 2.33 (L) 4.00 - 5.20 x10*6/uL Hemoglobin 8.4 (L) 12.0 - 16.0 g/dL Hematocrit 25.8 (L) 36.0 - 46.0 % MCV 111 (H) 80 - 100 fL MCH 36.1 (H) 26.0 - 34.0 pg MCHC 32.6 32.0 - 36.0 g/dL RDW 18.3 (H) 11.5 - 14.5 % Platelets 128 (L) 150 - 450 x10*3/uL Basic metabolic panel Result Value Ref Range Glucose 59 (L) 74 - 99 mg/dL Sodium 141 136 - 145 mmol/L Potassium 3.7 3.5 - 5.3 mmol/L Chloride 110 (H) 98 - 107 mmol/L Bicarbonate 22 21 - 32 mmol/L Anion Gap 13 10 - 20 mmol/L Urea Nitrogen 19 6 - 23 mg/dL Creatinine 1.05 0.50 - 1.05 mg/dL eGFR 55 (L) >60 mL/min/1.73m*2 Calcium 7.9 (L) 8.6 - 10.3 mg/dL Magnesium Result Value Ref Range Magnesium 2.28 1.60 - 2.40 mg/dL POCT GLUCOSE Result Value Ref Range POCT Glucose 89 74 - 99 mg/dL Assessment & Plan Intussusception (Multi) HTN (hypertension) LAURA (obstructive sleep apnea) Immunocompromised Postop day #4 status post ileocecectomy. Patient states that she finished the case very late at night when it is really only 3-1/2 days. Encouragement is given and I have told her that sometimes takes longer and there is nothing we can do except encourage ambulation and replace potassium if needed etc. Patient's potassium was low but given her difficulties with IVs I have ordered it oral and we will clamp. I told her she may shower if they can get her IV and everything protected and continue coughing and deep breathing and walking. I have put in a consult for a midline as multiple people are trying to get an IV with ultrasound. Now if given the time difference they can get an IV with ultrasound that would certainly even be preferable to a midline although the midline might last longer. Yelena Garcia MD * Yelena Garcia MD - 08/15/2024 12:12 PM EDT Marina Moraes is a 78 y.o. female on day 2 of admission presenting with Intussusception (Multi). Patient is postop day #2 status post ileocecectomy for intussusception from a presumed lipomatous lead point Subjective Patient continues to deny any real pain. She is taking Tylenol as needed. She thinks she feels stuff really moving around she might have a bowel movement today. She is voiding more and without difficulty. The potassium is burning her arm with infusion. She has been ambulating. Objective Last Recorded Vitals BP 146/65 Pulse 71 Temp 35.8 C (96.5 F) (Temporal) Resp 20 Wt 84.2 kg (185 lb 10 oz) [id number]% Intake/Output last 3 Shifts: Intake/Output Summary (Last 24 hours) at 08/15/2024 1213 Last data filed at 08/15/2024 1030 Gross per 24 hour Intake 2541.25 ml Output 2175 ml Net 366.25 ml Admission Weight Weight: 82.6 kg (182 lb) (08/12/24 1142) Daily Weight 08/15/24 : 84.2 kg (185 lb 10 oz) Image Results ECG 12 Lead Sinus rhythm with 1st degree AV block Otherwise normal ECG When compared with ECG of 09-OCT-2022 15:45, No significant change was found See ED provider note for full interpretation and clinical correlation Confirmed by Jesusita Garcia ([id number]) on 08/13/2024 3:33:08 PM Physical Exam Constitutional: General: She is not in acute distress. Appearance: She is not toxic-appearing. Eyes: General: No scleral icterus. Extraocular Movements: Extraocular movements intact. Pupils: Pupils are equal, round, and reactive to light. Cardiovascular: Rate and Rhythm: Normal rate. Pulmonary: Effort: Pulmonary effort is normal. No respiratory distress. Abdominal: Palpations: Abdomen is soft. Tenderness: There is no abdominal tenderness. Comments: Midline dressing in place with some staining. She is appropriately tender. Musculoskeletal: General: No swelling. Neurological: General: No focal deficit present. Mental Status: She is alert and oriented to person, place, and time. Psychiatric: Mood and Affect: Mood normal. Relevant Results Results for orders placed or performed during the hospital encounter of 08/12/24 (from the past 24 hours) CBC Result Value Ref Range WBC 1.7 (L) 4.4 - 11.3 x10*3/uL nRBC 0.0 0.0 - 0.0 /100 WBCs RBC 2.17 (L) 4.00 - 5.20 x10*6/uL Hemoglobin 7.9 (L) 12.0 - 16.0 g/dL Hematocrit 24.0 (L) 36.0 - 46.0 % MCV 111 (H) 80 - 100 fL MCH 36.4 (H) 26.0 - 34.0 pg MCHC 32.9 32.0 - 36.0 g/dL RDW 17.9 (H) 11.5 - 14.5 % Platelets 133 (L) 150 - 450 x10*3/uL Basic Metabolic Panel Result Value Ref Range Glucose 70 (L) 74 - 99 mg/dL Sodium 140 136 - 145 mmol/L Potassium 3.6 3.5 - 5.3 mmol/L Chloride 109 (H) 98 - 107 mmol/L Bicarbonate 23 21 - 32 mmol/L Anion Gap 12 10 - 20 mmol/L Urea Nitrogen 23 6 - 23 mg/dL Creatinine 1.44 (H) 0.50 - 1.05 mg/dL eGFR 38 (L) >60 mL/min/1.73m*2 Calcium 7.4 (L) 8.6 - 10.3 mg/dL Magnesium Result Value Ref Range Magnesium 2.13 1.60 - 2.40 mg/dL Phosphorus Result Value Ref Range Phosphorus 3.0 2.5 - 4.9 mg/dL Assessment & Plan Intussusception (Multi) HTN (hypertension) LAURA (obstructive sleep apnea) Immunocompromised Postop day #2 awaiting return of bowel function. She states she feels stuff moving around more and thinks she may have a bowel movement later today. She is encouraged to ambulate cough and deep breathe. Her blood pressure is in a more normal range. Creatinine is coming down. I have not given her any more fluid as she should mobilize soon and that will help to creatinine reduce. Continue current meds. Yelena Garcia MD * Yelena Garcia MD - 08/14/2024 12:01 PM EDT Marina Moraes is a 78 y.o. female on day 1 of admission presenting with Intussusception (Multi). She is postop day 1. She was under resuscitated yesterday and had minimal urine output with a bump in her creatinine. She was given boluses and her IV rate increased. She began voiding overnight and so far today is made 300 mL of urine. Creatinine is coming down but is still elevated. Medicationadjustments are being made. Subjective Patient continues to deny any real pain. She denies any flatus but felt like she was going to have a bowel movement earlier. She enjoyed the popsicles. She did walk in the hallways last evening. She is complaining of her ankle swelling if she is up. She still is wearing the oxygen. NG tube was flushed Objective Physical Exam Constitutional: General: She is not in acute distress. Appearance: She is not toxic-appearing. Eyes: General: No scleral icterus. Extraocular Movements: Extraocular movements intact. Pupils: Pupils are equal, round, and reactive to light. Cardiovascular: Rate and Rhythm: Normal rate. Pulmonary: Effort: Pulmonary effort is normal. No respiratory distress. Abdominal: Palpations: Abdomen is soft. Comments: Abdomen is obese and soft. Dressing is in place. She has some serous drainage in the central portion. She is appropriately tender Musculoskeletal: General: No swelling. Skin: Comments: She has chronic venous changes on her lower legs Neurological: General: No focal deficit present. Mental Status: She is alert and oriented to person, place, and time. Psychiatric: Mood and Affect: Mood normal. Last Recorded Vitals Blood pressure (!) 92/49, pulse 66, temperature 35.9 C (96.7 F), temperature source Temporal, resp.rate 20, height 1.499 m (4' 11), weight 84.1 kg (185 lb 6.5 oz), SpO2 92%. Intake/Output last 3 Shifts: I/O last 3 completed shifts: In: 5875.5 (69.9 mL/kg) [I.V.:4870.5 (57.9 mL/kg); NG/GT:100; IV Piggyback:905] Out: 870 (10.3 mL/kg) [Urine:345 (0.1 mL/kg/hr); Emesis/NG output:525] Weight: 84.1 kg Relevant Results Results for orders placed or performed during the hospital encounter of 08/12/24 (from the past 24 hours) CBC and Auto Differential Result Value Ref Range WBC 2.0 (L) 4.4 - 11.3 x10*3/uL nRBC 0.0 0.0 - 0.0 /100 WBCs RBC 3.01 (L) 4.00 - 5.20 x10*6/uL Hemoglobin 10.8 (L) 12.0 - 16.0 g/dL Hematocrit 32.3 (L) 36.0 - 46.0 % MCV 107 (H) 80 - 100 fL MCH 35.9 (H) 26.0 - 34.0 pg MCHC 33.4 32.0 - 36.0 g/dL RDW 17.9 (H) 11.5 - 14.5 % Platelets 138 (L) 150 - 450 x10*3/uL Immature Granulocytes %, Automated 1.5 (H) 0.0 - 0.9 % Immature Granulocytes Absolute, Automated 0.03 0.00 - 0.50 x10*3/uL Basic metabolic panel Result Value Ref Range Glucose 106 (H) 74 - 99 mg/dL Sodium 137 136 - 145 mmol/L Potassium 4.5 3.5 - 5.3 mmol/L Chloride 105 98 - 107 mmol/L Bicarbonate 24 21 - 32 mmol/L Anion Gap 13 10 - 20 mmol/L Urea Nitrogen 19 6 - 23 mg/dL Creatinine 1.78 (H) 0.50 - 1.05 mg/dL eGFR 29 (L) >60 mL/min/1.73m*2 Calcium 7.8 (L) 8.6 - 10.3 mg/dL Magnesium Result Value Ref Range Magnesium 2.14 1.60 - 2.40 mg/dL Phosphorus Result Value Ref Range Phosphorus 4.7 2.5 - 4.9 mg/dL Manual Differential Result Value Ref Range Neutrophils %, Manual 81.0 40.0 - 80.0 % Bands %, Manual 7.0 0.0 - 5.0 % Lymphocytes %, Manual 8.0 13.0 - 44.0 % Monocytes %, Manual 4.0 2.0 - 10.0 % Eosinophils %, Manual 0.0 0.0 - 6.0 % Basophils %, Manual 0.0 0.0 - 2.0 % Seg Neutrophils Absolute, Manual 1.62 1.60 - 5.00 x10*3/uL Bands Absolute, Manual 0.14 0.00 - 0.50 x10*3/uL Lymphocytes Absolute, Manual 0.16 (L) 0.80 - 3.00 x10*3/uL Monocytes Absolute, Manual 0.08 0.05 - 0.80 x10*3/uL Eosinophils Absolute, Manual 0.00 0.00 - 0.40 x10*3/uL Basophils Absolute, Manual 0.00 0.00 - 0.10 x10*3/uL Total Cells Counted 100 Neutrophils Absolute, Manual 1.76 1.60 - 5.50 x10*3/uL RBC Morphology See Below Ovalocytes Many Teardrop Cells Few Basic Metabolic Panel Result Value Ref Range Glucose 94 74 - 99 mg/dL Sodium 137 136 - 145 mmol/L Potassium 4.3 3.5 - 5.3 mmol/L Chloride 107 98 - 107 mmol/L Bicarbonate 22 21 - 32 mmol/L Anion Gap 12 10 - 20 mmol/L Urea Nitrogen 24 (H) 6 - 23 mg/dL Creatinine 1.75 (H) 0.50 - 1.05 mg/dL eGFR 30 (L) >60 mL/min/1.73m*2 Calcium 7.3 (L) 8.6 - 10.3 mg/dL CBC Result Value Ref Range WBC 1.7 (L) 4.4 - 11.3 x10*3/uL nRBC 0.0 0.0 - 0.0 /100 WBCs RBC 2.40 (L) 4.00 - 5.20 x10*6/uL Hemoglobin 8.6 (L) 12.0 - 16.0 g/dL Hematocrit 26.6 (L) 36.0 - 46.0 % MCV 111 (H) 80 - 100 fL MCH 35.8 (H) 26.0 - 34.0 pg MCHC 32.3 32.0 - 36.0 g/dL RDW 17.7 (H) 11.5 - 14.5 % Platelets 128 (L) 150 - 450 x10*3/uL Assessment & Plan Intussusception (Multi) HTN (hypertension) LAURA (obstructive sleep apnea) Immunocompromised Postoperative day #2 status post ileocecectomy for ileocolic intussusception. With the fluid boluses she is now making urine and her creatinine is slowly beginning to recover. She has made 300 thus far so I will turn down her IVs to 75. I have encouraged ambulation and to elevate her extremities when she is not up ambulating. We will repeat her labs in the morning and continue to await return of bowel function. Nursing has been intermittently holding her Coreg due to her lower blood pressure. Yelena Garcia MD * Laure Lowe, [facility] - 08/13/2024 12:50 PM EDT 08/13/24 1247 Discharge Planning Living Arrangements Alone Support Systems Children Assistance Needed none Type of Residence Private residence Number of Stairs to Enter Residence 0 Number of Stairs Within Residence 0 Do you have animals or pets at home? No Who is requesting discharge planning? Provider Yao met with patient and reviewed the role that CT plays in the discharge process. Confirmed her address and also insurance. She does live alone in one story home with no steps to get into the home. She does not uses any community agencies and is Independent at home. Her PCP is in [place] and she does use [facility] here in [place] as her Pharmacy. She does not think that she will need anything at discharge -and explained that we can follow up with her if she does. She does have a son that lives local that can assist. # 1 IMM 5/23/25 @ 10:[address] to follow * Yelena Garcia MD - 08/13/2024 10:52 AM EDT Marina Moraes is a 78 y.o. female postoperative day #1 status post ileocecectomy for ileocolic intussusception in patient with metastatic breast cancer. Subjective Patient is awake and alert this morning. She states she has incisional discomfort but is otherwise doing well. She is not taking any narcotics overnight. NG tube is still in position. It is not draining much Objective Physical Exam Constitutional: General: She is not in acute distress. Appearance: She is not toxic-appearing. Eyes: General: No scleral icterus. Extraocular Movements: Extraocular movements intact. Pupils: Pupils are equal, round, and reactive to light. Cardiovascular: Rate and Rhythm: Normal rate. Pulmonary: Effort: Pulmonary effort is normal. No respiratory distress. Abdominal: Palpations: Abdomen is soft. Tenderness: There is abdominal tenderness. Comments: Abdominal binder in place. She has a small area of dried blood centrally on the dressing.Abdomen seems appropriately tender. Musculoskeletal: General: No swelling. Neurological: General: No focal deficit present. Mental Status: She is alert and oriented to person, place, and time. Psychiatric: Mood and Affect: Mood normal. Last Recorded Vitals Blood pressure 85/55, pulse 87, temperature 35.8 C (96.5 F), temperature source Temporal, resp. rate 18, height 1.499 m (4' 11), weight 82.6 kg (182 lb), SpO2 93%. Intake/Output last 3 Shifts: I/O last 3 completed shifts: In: 3469.5 (42 mL/kg) [I.V.:2470.5 (29.9 mL/kg); IV Piggyback:999] Out: 100 (1.2 mL/kg) [Urine:100 (0 mL/kg/hr)] Weight: 82.6 kg Relevant Results Results for orders placed or performed during the hospital encounter of 08/12/24 (from the past 24 hours) ECG 12 Lead Result Value Ref Range Ventricular Rate 67 BPM Atrial Rate 67 BPM MI Interval 214 ms QRS Duration 94 ms QT Interval 384 ms QTC Calculation(Bazett) 405 ms P Burnside 61 degrees R Burnside 18 degrees T Burnside 24 degrees QRS Count 12 beats Q Onset 217 ms P Onset 110 ms P Offset 166 ms T Offset 409 ms QTC Fredericia 398 ms CBC and Auto Differential Result Value Ref Range WBC 1.4 (L) 4.4 - 11.3 x10*3/uL nRBC 0.0 0.0 - 0.0 /100 WBCs RBC 3.01 (L) 4.00 - 5.20 x10*6/uL Hemoglobin 10.8 (L) 12.0 - 16.0 g/dL Hematocrit 31.6 (L) 36.0 - 46.0 % MCV 105 (H) 80 - 100 fL MCH 35.9 (H) 26.0 - 34.0 pg MCHC 34.2 32.0 - 36.0 g/dL RDW 16.7 (H) 11.5 - 14.5 % Platelets 200 150 - 450 x10*3/uL Neutrophils % 64.5 40.0 - 80.0 % Immature Granulocytes %, Automated 0.7 0.0 - 0.9 % Lymphocytes % 17.4 13.0 - 44.0 % Monocytes % 14.5 2.0 - 10.0 % Eosinophils % 0.7 0.0 - 6.0 % Basophils % 2.2 0.0 - 2.0 % Neutrophils Absolute 0.89 (L) 1.60 - 5.50 x10*3/uL Immature Granulocytes Absolute, Automated 0.01 0.00 - 0.50 x10*3/uL Lymphocytes Absolute 0.24 (L) 0.80 - 3.00 x10*3/uL Monocytes Absolute 0.20 0.05 - 0.80 x10*3/uL Eosinophils Absolute 0.01 0.00 - 0.40 x10*3/uL Basophils Absolute 0.03 0.00 - 0.10 x10*3/uL Basic metabolic panel Result Value Ref Range Glucose 112 (H) 74 - 99 mg/dL Sodium 140 136 - 145 mmol/L Potassium 4.0 3.5 - 5.3 mmol/L Chloride 104 98 - 107 mmol/L Bicarbonate 29 21 - 32 mmol/L Anion Gap 11 10 - 20 mmol/L Urea Nitrogen 11 6 - 23 mg/dL Creatinine 0.93 0.50 - 1.05 mg/dL eGFR 64 >60 mL/min/1.73m*2 Calcium 9.5 8.6 - 10.3 mg/dL Lipase Result Value Ref Range Lipase 17 9 - 82 U/L Hepatic function panel Result Value Ref Range Albumin 4.0 3.4 - 5.0 g/dL Bilirubin, Total 0.7 0.0 - 1.2 mg/dL Bilirubin, Direct 0.1 0.0 - 0.3 mg/dL Alkaline Phosphatase 59 33 - 136 U/L ALT 9 7 - 45 U/L AST 17 9 - 39 U/L Total Protein 6.7 6.4 - 8.2 g/dL Lactate Result Value Ref Range Lactate 0.9 0.4 - 2.0 mmol/L Troponin I, High Sensitivity Result Value Ref Range Troponin I, High Sensitivity 7 0 - 13 ng/L Urinalysis with Reflex Culture and Microscopic Result Value Ref Range Color, Urine Light-Yellow Light-Yellow, Yellow, Dark-Yellow Appearance, Urine Clear Clear Specific Drake, Urine 1.013 1.005 - 1.035 pH, Urine 6.5 5.0, 5.5, 6.0, 6.5, 7.0, 7.5, 8.0 Protein, Urine NEGATIVE NEGATIVE, 10 (TRACE), 20 (TRACE) mg/dL Glucose, Urine Normal Normal mg/dL Blood, Urine NEGATIVE NEGATIVE mg/dL Ketones, Urine TRACE (A) NEGATIVE mg/dL Bilirubin, Urine NEGATIVE NEGATIVE mg/dL Urobilinogen, Urine Normal Normal mg/dL Nitrite, Urine NEGATIVE NEGATIVE Leukocyte Esterase, Urine 250 Fadumo/uL (A) NEGATIVE Extra Urine Doss Tube Result Value Ref Range Extra Tube Hold for add-ons. Microscopic Only, Urine Result Value Ref Range WBC, Urine 11-20 (A) 1-5, NONE /HPF RBC, Urine 1-2 NONE, 1-2, 3-5 /HPF Mucus, Urine FEW Reference range not established. /LPF Amorphous Crystals, Urine 1+ NONE, 1+, 2+ /HPF CBC Result Value Ref Range WBC 1.2 (L) 4.4 - 11.3 x10*3/uL nRBC 0.0 0.0 - 0.0 /100 WBCs RBC 2.71 (L) 4.00 - 5.20 x10*6/uL Hemoglobin 9.7 (L) 12.0 - 16.0 g/dL Hematocrit 28.7 (L) 36.0 - 46.0 % MCV 106 (H) 80 - 100 fL MCH 35.8 (H) 26.0 - 34.0 pg MCHC 33.8 32.0 - 36.0 g/dL RDW 16.7 (H) 11.5 - 14.5 % Platelets 186 150 - 450 x10*3/uL Basic metabolic panel Result Value Ref Range Glucose 94 74 - 99 mg/dL Sodium 139 136 - 145 mmol/L Potassium 3.6 3.5 - 5.3 mmol/L Chloride 105 98 - 107 mmol/L Bicarbonate 27 21 - 32 mmol/L Anion Gap 11 10 - 20 mmol/L Urea Nitrogen 9 6 - 23 mg/dL Creatinine 0.81 0.50 - 1.05 mg/dL eGFR 75 >60 mL/min/1.73m*2 Calcium 8.9 8.6 - 10.3 mg/dL Lactate Result Value Ref Range Lactate 0.5 0.4 - 2.0 mmol/L Magnesium Result Value Ref Range Magnesium 1.83 1.60 - 2.40 mg/dL CBC Result Value Ref Range WBC 1.3 (L) 4.4 - 11.3 x10*3/uL nRBC 0.0 0.0 - 0.0 /100 WBCs RBC 3.35 (L) 4.00 - 5.20 x10*6/uL Hemoglobin 12.0 12.0 - 16.0 g/dL Hematocrit 35.5 (L) 36.0 - 46.0 % MCV 106 (H) 80 - 100 fL MCH 35.8 (H) 26.0 - 34.0 pg MCHC 33.8 32.0 - 36.0 g/dL RDW 17.2 (H) 11.5 - 14.5 % Platelets 205 150 - 450 x10*3/uL Basic metabolic panel Result Value Ref Range Glucose 107 (H) 74 - 99 mg/dL Sodium 140 136 - 145 mmol/L Potassium 3.2 (L) 3.5 - 5.3 mmol/L Chloride 112 (H) 98 - 107 mmol/L Bicarbonate 21 21 - 32 mmol/L Anion Gap 10 10 - 20 mmol/L Urea Nitrogen 12 6 - 23 mg/dL Creatinine 0.97 0.50 - 1.05 mg/dL eGFR 61 >60 mL/min/1.73m*2 Calcium 6.6 (L) 8.6 - 10.3 mg/dL Magnesium Result Value Ref Range Magnesium 1.32 (L) 1.60 - 2.40 mg/dL Phosphorus Result Value Ref Range Phosphorus 2.4 (L) 2.5 - 4.9 mg/dL Current Medications[1] Assessment & Plan Intussusception (Multi) HTN (hypertension) LAURA (obstructive sleep apnea) Immunocompromised With the drop in blood pressure, I gave a 250 mL fluid bolus. Patient has not made urine overnight.She was bladder scanned and only showed 28 mL although given her body habitus and the surgical incision this may not be accurate. I repeated labs and her hemoglobin is stable. Her Phos mag and potassium are all in requirement for replacement. Creatinine is increased slightly so I have increased herIV rate. White count is currently 1.3. NG output has minimal drainage and we will asked them to flush this. Once we assure that she is not bleeding, I have encouraged her to get up and ambulate. She is working with her incentive's. Continue to await return of bowel function. I did discuss the operative findings with her. Yelena Garcia MD [1] Current Facility-Administered Medications: acetaminophen (Tylenol) tablet 650 mg, 650 mg, oral, q6h, Yelena Garcia MD, 650 mg at 08/13/24 0632 carvedilol (Coreg) tablet 12.5 mg, 12.5 mg, oral, BID, Yelena Garcia MD, 12.5 mg at 08/13/24 0610 ceFAZolin (Ancef) 2 g in dextrose (iso) IV 50 mL, 2 g, intravenous, q8h, Yelena Garcia MD, Stopped at 08/13/24 0928 enoxaparin (Lovenox) syringe 40 mg, 40 mg, subcutaneous, q24h, Yelena Garcia MD, 40 mg at 08/13/24 0857 ibuprofen tablet 800 mg, 800 mg, oral, q6h REJI, Yelena Garcia MD, 800 mg at 08/13/24 0632 lactated Ringer's infusion, 150 mL/hr, intravenous, Continuous, Yelena Garcia MD, Last Rate: 150 mL/hr at 08/13/24 1014, 150 mL/hr at 08/13/24 1014 magnesium sulfate 2 g in sterile water for injection 50 mL, 2 g, intravenous, Once, Yelena Garcia MD metroNIDAZOLE (Flagyl) 500 mg in sodium chloride (iso) IV 100 mL, 500 mg, intravenous, q8h, Yelena Garcia MD, Stopped at 08/13/24 0725 naloxone (Narcan) injection 0.2 mg, 0.2 mg, intravenous, q5 min PRN, Yelena Garcia MD ondansetron ODT (Zofran-ODT) disintegrating tablet 4 mg, 4 mg, oral, q8h PRN OR ondansetron (Zofran) injection 4 mg, 4 mg, intravenous, q8h PRN, Yelena Garcia MD oxyCODONE (Roxicodone) immediate release tablet 10 mg, 10 mg, oral, q4h PRN, Yelena Garcia MD oxyCODONE (Roxicodone) immediate release tablet 5 mg, 5 mg, oral, q4h PRN, Yelena Garcia MD oxygen (O2) therapy, , inhalation, Continuous PRN - O2/gases, Yelena Garcia MD, 21 L/min at 08/13/24 1002 pantoprazole (ProtoNix) EC tablet 40 mg, 40 mg, oral, Daily before breakfast, Yelena Garcia MD,40 mg at 08/13/24 0632 potassium chloride 20 mEq in sterile water for injection 100 mL, 20 mEq, intravenous, q2h, Yelena Garcia MD potassium phosphates 15 mmol in dextrose 5% 250 mL IV, 15 mmol, intravenous, Once, Yelena Garcia MD venlafaxine XR (Effexor-XR) 24 hr capsule 37.5 mg, 37.5 mg, oral, Daily with breakfast, Yelena Garcia MD, 37.5 mg at 08/13/24 0857 documented in this [facility] Work Phone: [phone] 194-377106-01-2025 Plan of care note* Care Plan - Pauline Monteiro RN - 08/21/2024 5:06 AM EDT The patient's goals for the shift include rest and comfort The clinical goals for the shift include pain management Over the shift, the patient did make progress toward the following goals. Barriers to progression include none. Recommendations to address these barriers include none. [facility]06-01-2025 Miscellaneous Notes* Care Plan - Pauline Monteiro RN - 08/21/2024 5:06 AM EDT The patient's goals for the shift include rest and comfort The clinical goals for the shift include pain management Over the shift, the patient did make progress toward the following goals. Barriers to progression include none. Recommendations to address these barriers include none. * Significant Event - Lea Chowdhury RRT - 08/21/2024 12:52 AM EDT Pt took off Home CPAP and overnight pulse ox study. Pt stated she hasn't worn the cpap in weeks andshe didn't care to wear the Home CPAP anymore. Tried to re- educate pt but pt said she didn't want to wear CPAP anymore. I explained to pt that she did require 3L FiO2 bleed in her Home CPAP while shesleep due to her SpO2 83% RA 21% while asleep and if she wasn't going to wear her Home CPAP unit then we needed to wear 3L NC to keep her SpO2 >92%. Pt agreed 3L NC placed and overnight pulse ox study placed back on pt. Overnight PO study continues. Pt currently on 3L NC SpO2 93% hr 76 RR 18 * Care Plan - Nisha Frey RRT - 08/20/2024 10:28 PM EDT Patient was found off CPAP and oxygen and was sating 74%. Patient was placed back on her CPAP and only recovered to 83%. Patient was removed from CPAP and placed on 2L NC which she recovered to 94%. Dr Boston was made aware and RT asked for overnight PO study to be done. Patient was placed on overnight PO at 2228 on room air on Home CPAP. Patient is maintaining sats at this time. * Care Plan - Lisette Egan RN - 08/20/2024 11:16 AM EDT The patient's goals for the shift include The clinical goals for the shift include have BM Over the shift, the patient did progress toward goals Problem: Discharge Planning Goal: Discharge to home or other facility with appropriate resources Outcome: Progressing Problem: Skin Goal: Decreased wound size/increased tissue granulation at next dressing change Outcome: Progressing Problem: Skin Goal: Prevent/manage excess moisture Outcome: Progressing * Care Plan - Lakshmi Pollock RN - 08/19/2024 9:26 AM EDT Problem: Skin Goal: Decreased wound size/increased tissue granulation at next dressing change Outcome: Progressing Goal: Participates in plan/prevention/treatment measures Outcome: Progressing Goal: Prevent/manage excess moisture Outcome: Progressing Goal: Prevent/minimize sheer/friction injuries Outcome: Progressing Goal: Promote/optimize nutrition Outcome: Progressing Goal: Promote skin healing Outcome: Progressing Problem: Fall/Injury Goal: Not fall by end of shift Outcome: Progressing Goal: Be free from injury by end of the shift Outcome: Progressing Goal: Verbalize understanding of personal risk factors for fall in the hospital Outcome: Progressing Goal: Verbalize understanding of risk factor reduction measures to prevent injury from fall in the home Outcome: Progressing Goal: Use assistive devices by end of the shift Outcome: Progressing Goal: Pace activities to prevent fatigue by end of the shift Outcome: Progressing Problem: Pain Goal: Takes deep breaths with improved pain control throughout the shift Outcome: Progressing Goal: Turns in bed with improved pain control throughout the shift Outcome: Progressing Goal: Walks with improved pain control throughout the shift Outcome: Progressing Goal: Performs ADL's with improved pain control throughout shift Outcome: Progressing Goal: Participates in PT with improved pain control throughout the shift Outcome: Progressing Goal: Free from opioid side effects throughout the shift Outcome: Progressing Goal: Free from acute confusion related to pain meds throughout the shift Outcome: Progressing Problem: Pain - Adult Goal: Verbalizes/displays adequate comfort level or baseline comfort level Outcome: Progressing Problem: Safety - Adult Goal: Free from fall injury Outcome: Progressing Problem: Discharge Planning Goal: Discharge to home or other facility with appropriate resources Outcome: Progressing Problem: Chronic Conditions and Co-morbidities Goal: Patient's chronic conditions and co-morbidity symptoms are monitored and maintained or improved Outcome: Progressing Problem: Nutrition Goal: Nutrient intake appropriate for maintaining nutritional needs Outcome: Progressing * Documentation Clarification Note - Yelena Garcia MD - 08/18/2024 9:46 AM EDT PATIENT: MARINA MORAES : 1945 ADMIT DATE: 08/12/2024 11:37 AM DISCH DATE: RESPONDING PROVIDER #: [id number] PROVIDER RESPONSE TEXT: I agree with 911 telecommunicator diagnosis of Moderate malnutrition on 08/17/24 CDI QUERY TEXT: Clarification Instruction: Based on your assessment of the patient and the clinical information, please provide the requested documentation by clicking on the appropriate radio button and enter any additional information if prompted. Question: Please further clarify this patient nutritional status as When answering this query, please exercise your independent professional judgment. The fact that a question is being asked, does not imply that any particular answer is desired or expected. The patient's clinical indicators include: Clinical Information: * 78 year old female admitted for intussusception Clinical Indicators: * 08/17/[address] Malnutrition Diagnosis: Moderate malnutrition related to acute disease or injury Related to: poor appetite As Evidenced by: Mild-Moderate subcutaneous fat loss - Triceps, Mild-Moderate Muscle wasting -temporalis, interosseous Treatment: * Advance diet if able- If unable RD recommendations of Parenteral Nutrition: Management of delivery rate of parenteral nutrition. Goal: start PPN Clinimix 4.25/5at 30ml/hr advance as appropriate togoal rate of 80ml/hr to meet protein needs Risk Factors: * 08/17/24 PN most likely still has a prolonged postop ileus * NPO Options provided: -- I agree with 911 telecommunicator diagnosis of Moderate malnutrition on 08/17/24 -- Other - I will add my own diagnosis -- Refer to Clinical Documentation Reviewer Query created by: Kylie Schultz on 08/18/2024 7:29 AM Electronically signed by: YELENA GARCIA MD 08/18/2024 9:45 AM * Documentation Clarification Note - Yelena Garcia MD - 08/18/2024 9:46 AM EDT PATIENT: MARINA MORAES : 1945 ADMIT DATE: 08/12/2024 11:37 AM DISCH DATE: RESPONDING PROVIDER #: [id number] PROVIDER RESPONSE TEXT: Acute renal failure is clinically significant and required treatment/monitoring CDI QUERY TEXT: Clarification Instruction: Based on your assessment of the patient and the clinical information, please provide the requested documentation by clicking on the appropriate radio button and enter any additional information if prompted. Question: Is there a diagnosis indicative of the lab values or image study When answering this query, please exercise your independent professional judgment. The fact that a question is being asked, does not imply that any particular answer is desired or expected. The patient's clinical indicators include: Clinical Information: * 78 year old female admitted for Intussusception Clinical Indicators: * 08/12/24 to OR for resection * 08/13/24 progress note Repeat labs show her BUN and creatinine are elevated. Her decreased urine output is probably secondary to under resuscitation * 08/14/24 Progress note She was under resuscitated yesterday and had minimal urine output with a bump in her creatinine. She was given boluses and her IV rate increased. She began voiding overnight and so far today is made 300 mL of urine. Creatinine is coming down but is still elevated. Medication adjustments are being made * Labs creatinine/BUN 08/12- 11/0.93, 08/13 18:36 -19/1.78 - 08/14 24/1.75- 08/15 -23/1.44- 08/16 19/1.05, 08/18 - 19/0.76 Treatment: * Serial labs * 08/12 1250 ml IV bolus NS- IV LR 75 ml/hr * 08/13 NS 500 ml IV bolus * 08/14 500 ml IV bolus NS Risk Factors: * OR * bowel intussusception * under fluid resuscitated Options provided: -- Acute renal failure is clinically significant and required treatment/monitoring -- Elevated BUN and creatinine not requiring treatment or evaluation -- Other - I will add my own diagnosis -- Refer to Clinical Documentation Reviewer Query created by: Kylie Schultz on 08/18/2024 7:07 AM Electronically signed by: YELENA GARCIA MD 08/18/2024 9:45 AM * Care Plan - Asha Braxton RN - 08/18/2024 7:27 AM EDT Problem: Skin Goal: Decreased wound size/increased tissue granulation at next dressing change Outcome: Progressing Goal: Participates in plan/prevention/treatment measures Outcome: Progressing Goal: Prevent/manage excess moisture Outcome: Progressing Goal: Prevent/minimize sheer/friction injuries Outcome: Progressing Goal: Promote/optimize nutrition Outcome: Progressing Goal: Promote skin healing Outcome: Progressing Problem: Fall/Injury Goal: Not fall by end of shift Outcome: Progressing Goal: Be free from injury by end of the shift Outcome: Progressing Goal: Verbalize understanding of personal risk factors for fall in the hospital Outcome: Progressing Goal: Verbalize understanding of risk factor reduction measures to prevent injury from fall in the home Outcome: Progressing Goal: Use assistive devices by end of the shift Outcome: Progressing Goal: Pace activities to prevent fatigue by end of the shift Outcome: Progressing Problem: Pain Goal: Takes deep breaths with improved pain control throughout the shift Outcome: Progressing Goal: Turns in bed with improved pain control throughout the shift Outcome: Progressing Goal: Walks with improved pain control throughout the shift Outcome: Progressing Goal: Performs ADL's with improved pain control throughout shift Outcome: Progressing Goal: Participates in PT with improved pain control throughout the shift Outcome: Progressing Goal: Free from opioid side effects throughout the shift Outcome: Progressing Goal: Free from acute confusion related to pain meds throughout the shift Outcome: Progressing Problem: Pain - Adult Goal: Verbalizes/displays adequate comfort level or baseline comfort level Outcome: Progressing Problem: Safety - Adult Goal: Free from fall injury Outcome: Progressing Problem: Discharge Planning Goal: Discharge to home or other facility with appropriate resources Outcome: Progressing Problem: Chronic Conditions and Co-morbidities Goal: Patient's chronic conditions and co-morbidity symptoms are monitored and maintained or improved Outcome: Progressing Problem: Nutrition Goal: Nutrient intake appropriate for maintaining nutritional needs Outcome: Progressing The patient's goals for the shift include keep ambulating and pass gas The clinical goals for the shift include less nausea,active bowel sounds no falls, labs and vs wdl,increase bowel sounds * Significant Event - Yelena Garcia MD - 08/17/2024 4:10 PM EDT Sent patient for small bowel study today. She vomited up the contrast and the study was terminated.Only very scant amount that out of her stoma. She does have stool and air with contrast distal to her anastomosis which probably represents the contrast from preop. The colon was not distorted like the small bowel was distended. There were no air-fluid levels. Because the bowel was not displaced I do not think it was fluid-filled. Patient most likely still has a prolonged postop ileus so I will not proceed with CT at this point. Patient is encouraged to get up and ambulate. We discussed the possibility of starting peripheral TPN if she gets to about 7 days with no bowel function. She states she would prefer to not have TPN. Patient has had some hypertension. Hemoglobin is slightly down on yesterday's labs. It is possible she is mobilizing fluid. I will decrease her IV rate and observe at this point. We will repeat her labs in the morning. * Care Plan - Lisa Salvador RN - 08/17/2024 1:06 PM EDT Problem: Skin Goal: Decreased wound size/increased tissue granulation at next dressing change Outcome: Progressing Goal: Participates in plan/prevention/treatment measures Outcome: Progressing Goal: Prevent/manage excess moisture Outcome: Progressing Goal: Prevent/minimize sheer/friction injuries Outcome: Progressing Goal: Promote/optimize nutrition Outcome: Progressing Goal: Promote skin healing Outcome: Progressing Problem: Fall/Injury Goal: Not fall by end of shift Outcome: Progressing Goal: Be free from injury by end of the shift Outcome: Progressing Goal: Verbalize understanding of personal risk factors for fall in the hospital Outcome: Progressing Goal: Verbalize understanding of risk factor reduction measures to prevent injury from fall in the home Outcome: Progressing Goal: Use assistive devices by end of the shift Outcome: Progressing Goal: Pace activities to prevent fatigue by end of the shift Outcome: Progressing Problem: Pain Goal: Takes deep breaths with improved pain control throughout the shift Outcome: Progressing Goal: Turns in bed with improved pain control throughout the shift Outcome: Progressing Goal: Walks with improved pain control throughout the shift Outcome: Progressing Goal: Performs ADL's with improved pain control throughout shift Outcome: Progressing Goal: Participates in PT with improved pain control throughout the shift Outcome: Progressing Goal: Free from opioid side effects throughout the shift Outcome: Progressing Goal: Free from acute confusion related to pain meds throughout the shift Outcome: Progressing Problem: Pain - Adult Goal: Verbalizes/displays adequate comfort level or baseline comfort level Outcome: Progressing Problem: Safety - Adult Goal: Free from fall injury Outcome: Progressing Problem: Discharge Planning Goal: Discharge to home or other facility with appropriate resources Outcome: Progressing Problem: Chronic Conditions and Co-morbidities Goal: Patient's chronic conditions and co-morbidity symptoms are monitored and maintained or improved Outcome: Progressing Problem: Nutrition Goal: Nutrient intake appropriate for maintaining nutritional needs Outcome: Progressing The clinical goals for the shift include active bowel sounds, decrease nausea * Care Plan - Lisa Salvador RN - 08/16/2024 9:18 AM EDT Problem: Skin Goal: Decreased wound size/increased tissue granulation at next dressing change Outcome: Progressing Goal: Participates in plan/prevention/treatment measures Outcome: Progressing Goal: Prevent/manage excess moisture Outcome: Progressing Goal: Prevent/minimize sheer/friction injuries Outcome: Progressing Goal: Promote/optimize nutrition Outcome: Progressing Goal: Promote skin healing Outcome: Progressing Problem: Fall/Injury Goal: Not fall by end of shift Outcome: Progressing Goal: Be free from injury by end of the shift Outcome: Progressing Goal: Verbalize understanding of personal risk factors for fall in the hospital Outcome: Progressing Goal: Verbalize understanding of risk factor reduction measures to prevent injury from fall in the home Outcome: Progressing Goal: Use assistive devices by end of the shift Outcome: Progressing Goal: Pace activities to prevent fatigue by end of the shift Outcome: Progressing Problem: Pain Goal: Takes deep breaths with improved pain control throughout the shift Outcome: Progressing Goal: Turns in bed with improved pain control throughout the shift Outcome: Progressing Goal: Walks with improved pain control throughout the shift Outcome: Progressing Goal: Performs ADL's with improved pain control throughout shift Outcome: Progressing Goal: Participates in PT with improved pain control throughout the shift Outcome: Progressing Goal: Free from opioid side effects throughout the shift Outcome: Progressing Goal: Free from acute confusion related to pain meds throughout the shift Outcome: Progressing The clinical goals for the shift include active bowel sounds, pass flatus * Significant Event - Yelena Garcia MD - 08/15/2024 4:20 PM EDT Patient accidentally pulled her left upper arm IV out. Nursing has been trying to place IVs with ultrasound etc. and have been unable to obtain 1. I think the central line is overkill. Patient prefers to not use her right arm as she had an axillary lymph node dissection a number of years ago related to a breast cancer operation. As such the only reasonable option is to put it in her foot which was done. This is secured. She is encouraged to still ambulate and to keep her foot elevated when in bed. They will also elevate her left upper extremity and apply conservative measures to try and take down the swelling and the bruising so if she does need access again we could try the left arm. I explained to her why we cannot just simply feed her without having flatus or bowel movement and NG outputs being 350 this shift. She is struggling to understand. * Care Plan - Lakshmi Pollock RN - 08/15/2024 8:59 AM EDT Problem: Skin Goal: Participates in plan/prevention/treatment measures Outcome: Progressing Goal: Prevent/manage excess moisture Outcome: Progressing Goal: Prevent/minimize sheer/friction injuries Outcome: Progressing Goal: Promote/optimize nutrition Outcome: Progressing Problem: Fall/Injury Goal: Not fall by end of shift Outcome: Progressing Goal: Be free from injury by end of the shift Outcome: Progressing Goal: Verbalize understanding of personal risk factors for fall in the hospital Outcome: Progressing Goal: Verbalize understanding of risk factor reduction measures to prevent injury from fall in the home Outcome: Progressing Goal: Use assistive devices by end of the shift Outcome: Progressing Goal: Pace activities to prevent fatigue by end of the shift Outcome: Progressing Problem: Pain Goal: Takes deep breaths with improved pain control throughout the shift Outcome: Progressing Goal: Turns in bed with improved pain control throughout the shift Outcome: Progressing Goal: Walks with improved pain control throughout the shift Outcome: Progressing Goal: Performs ADL's with improved pain control throughout shift Outcome: Progressing Goal: Participates in PT with improved pain control throughout the shift Outcome: Progressing Goal: Free from opioid side effects throughout the shift Outcome: Progressing Goal: Free from acute confusion related to pain meds throughout the shift Outcome: Progressing * Significant Event - Yelena Garcia MD - 08/14/2024 6:18 PM EDT Patient continues to make urine. She has wanted to delay the Tylenol as she is not having much discomfort so we will switch it to as needed. She asked nursing to hold her Coreg until she knew her blood pressure was maintaining which it seems to be. She has not ambulated in the [place] yet but plans ondoing it this evening. She has not had flatus but is having some crampy abdominal pain. She states her mouth feels dry and I have told her she can chew gum or have hard candies. She is making adequate urine at this point. I feel her creatinine will continue to come down. She is a difficult blood draw so we will just wait until the morning to get the blood. We rediscussed the operative findings with her right colon stuck far laterally to the retroperitoneum. We again discussed the fact I do not know the etiology whether this was simply a lipoma, a polyp or some form of cancer. She believes shehad a PET/CT in March to did not show any abnormality other than the lesion in her hip for which she received radiation. * Care Plan - Lakshmi Pollock RN - 08/14/2024 8:45 AM EDT Problem: Fall/Injury Goal: Not fall by end of shift Outcome: Progressing Goal: Be free from injury by end of the shift Outcome: Progressing Goal: Verbalize understanding of personal risk factors for fall in the hospital Outcome: Progressing Goal: Verbalize understanding of risk factor reduction measures to prevent injury from fall in the home Outcome: Progressing Goal: Use assistive devices by end of the shift Outcome: Progressing Goal: Pace activities to prevent fatigue by end of the shift Outcome: Progressing Problem: Pain Goal: Takes deep breaths with improved pain control throughout the shift Outcome: Progressing Goal: Turns in bed with improved pain control throughout the shift Outcome: Progressing Goal: Walks with improved pain control throughout the shift Outcome: Progressing Goal: Performs ADL's with improved pain control throughout shift Outcome: Progressing Goal: Participates in PT with improved pain control throughout the shift Outcome: Progressing Goal: Free from opioid side effects throughout the shift Outcome: Progressing Goal: Free from acute confusion related to pain meds throughout the shift Outcome: Progressing * Significant Event - Yelena Garcia MD - 08/13/2024 7:36 PM EDT Repeat labs show her BUN and creatinine are elevated. Her decreased urine output is probably secondary to under resuscitation. I explained to the patient that I did not give her a lot of fluids as I was not anticipating her third spacing a lot which she apparently appears to be doing. I will give her a fluid bolus and have increased her IV rate. Hemoglobin is stable. White count is now at 2. Her p hosphorus magnesium and potassium are all within the normal range. I have encouraged her to get up and ambulate to lessen her risk for DVT as well as pneumonia. She has been in the room but I have encouraged her to get up in the hallway. She has been sitting in the chair. Otherwise we continue to await return of bowel function. I have told her she could have some ice chips and popsicles which will help with the dry feeling in her mouth from her dehydration and I have offered her Chloraseptic spray which she currently declines but we will have it at her bedside. * Care Plan - Lakshmi Pollock RN - 08/13/2024 9:10 AM EDT Problem: Skin Goal: Participates in plan/prevention/treatment measures Outcome: Progressing Goal: Prevent/manage excess moisture Outcome: Progressing Goal: Prevent/minimize sheer/friction injuries Outcome: Progressing Goal: Promote/optimize nutrition Outcome: Progressing Problem: Fall/Injury Goal: Not fall by end of shift Outcome: Progressing Goal: Be free from injury by end of the shift Outcome: Progressing Goal: Verbalize understanding of personal risk factors for fall in the hospital Outcome: Progressing Goal: Verbalize understanding of risk factor reduction measures to prevent injury from fall in the home Outcome: Progressing Goal: Use assistive devices by end of the shift Outcome: Progressing Goal: Pace activities to prevent fatigue by end of the shift Outcome: Progressing Problem: Pain Goal: Takes deep breaths with improved pain control throughout the shift Outcome: Progressing Goal: Turns in bed with improved pain control throughout the shift Outcome: Progressing Goal: Walks with improved pain control throughout the shift Outcome: Progressing Goal: Performs ADL's with improved pain control throughout shift Outcome: Progressing Goal: Participates in PT with improved pain control throughout the shift Outcome: Progressing Goal: Free from opioid side effects throughout the shift Outcome: Progressing Goal: Free from acute confusion related to pain meds throughout the shift Outcome: Progressing * Care Plan - Sulema Braxton RN - 08/13/2024 4:25 AM EDT The patient's goals for the shift include pain reduction The clinical goals for the shift include reduction of pain, nausea Over the shift, the patient did not make progress toward the following goals. Barriers to progression include recent surgery. Recommendations to address these barriers include movement, walking, painmedications.. Problem: Skin Goal: Decreased wound size/increased tissue granulation at next dressing change Outcome: Not Progressing Goal: Participates in plan/prevention/treatment measures Outcome: Not Progressing Goal: Prevent/manage excess moisture Outcome: Not Progressing Goal: Prevent/minimize sheer/friction injuries 08/13/2024424 by Sulema Braxton RN Outcome: Not Progressing 08/13/2024423 by Sulema Braxton RN Flowsheets (Taken 08/13/2024423) Prevent/minimize sheer/friction injuries: Increase activity/out of bed for meals HOB 30 degrees or less Turn/reposition every 2 hours/use positioning/transfer devices Goal: Promote/optimize nutrition Outcome: Not Progressing Goal: Promote skin healing Outcome: Not Progressing Problem: Fall/Injury Goal: Not fall by end of shift Outcome: Not Progressing Goal: Be free from injury by end of the shift Outcome: Not Progressing Goal: Verbalize understanding of personal risk factors for fall in the hospital Outcome: Not Progressing Goal: Verbalize understanding of risk factor reduction measures to prevent injury from fall in the home Outcome: Not Progressing Goal: Use assistive devices by end of the shift Outcome: Not Progressing Goal: Pace activities to prevent fatigue by end of the shift Outcome: Not Progressing Problem: Pain Goal: Takes deep breaths with improved pain control throughout the shift Outcome: Not Progressing Goal: Turns in bed with improved pain control throughout the shift Outcome: Not Progressing Goal: Walks with improved pain control throughout the shift Outcome: Not Progressing Goal: Performs ADL's with improved pain control throughout shift Outcome: Not Progressing Goal: Participates in PT with improved pain control throughout the shift Outcome: Not Progressing Goal: Free from opioid side effects throughout the shift Outcome: Not Progressing Goal: Free from acute confusion related to pain meds throughout the shift Outcome: Not Progressing * Op Note - Yelena Garcia MD - 08/12/2024 11:21 PM EDT ileocecectomy, tap block Operative Note Date: 08/12/2024 - 08/13/2024 OR Location: [facility] OR Name: Marina Moraes, : 1945, Age: 78 y.o., , Sex: female Diagnosis Pre-op Diagnosis * Intussusception (Multi) [K56.1] Post-op Diagnosis * Intussusception (Multi) [K56.1] Procedures ileocecectomy, tap block 51534 - MI COLECTOMY PARTIAL W/ANASTOMOSIS ileocecectomy, tap block 87121 - [place] TAP BLOCK BILATERAL BY INJECTION(S) Surgeons * Yelena Garcia - Primary Resident/Fellow/Other Clerk Telegraph Service: Surgeons and Role: * No surgeons found with a matching role * Staff: PHYSICIAN SURGEON: Combatant Diver Officer: Hiro Scrub Person: Dionicio Riveraub Person: Vasile Anesthesia Staff: Anesthesiologist: Barak Hays, Procedure Summary Anesthesia: General ASA: III Estimated Blood Loss: 50mL Intra-op Medications: Administrations occurring from 08/12/24 2245 to 08/13/24 0205: Medication Name Total Dose bupivacaine PF 0.25 % (Marcaine) 0.25 % (2.5 mg/mL) injection 40 mL ePHEDrine injection 25 mg fentaNYL (Sublimaze) injection 50 mcg/mL 250 mcg glycopyrrolate (Robinul) injection 0.5 mg hydrALAZINE (Apresoline) injection 5 mg ketamine injection 50 mg/ 5 mL (10 mg/mL) 30 mg lactated Ringer's infusion Cannot be calculated lactated Ringer's infusion 37 mL lidocaine PF (Xylocaine-MPF) local injection 1 % 40 mg neostigmine (Bloxiverz) 3 mg/3 mL syringe 3 mg propofol (Diprivan) injection 10 mg/mL 150 mg rocuronium (ZeMuron) 50 mg/5 mL injection 35 mg succinylcholine chloride injection syringe 100 mg/5 mL 100 mg ceFAZolin (Ancef) 2 g in dextrose (iso) IV 50 mL 50 mL famotidine PF (Pepcid) injection 20 mg 20 mg heparin (porcine) injection 5,000 Units 5,000 Units metroNIDAZOLE (Flagyl) 500 mg in sodium chloride (iso) IV 100 mL 500 mg Anesthesia Record Intraprocedure I/O Totals Intake Neostigmine 0.00 mL The total shown is the total volume documented since Anesthesia Start was filed. lactated Ringer's infusion 2100.00 mL Total Intake 2100 mL Output Urine 100 mL Total Output 100 mL Net Net Volume 2000 mL Specimen: ID Type Source Tests Collected by Time 1 : ileocecum Tissue COLON - CECUM BIOPSY SURGICAL PATHOLOGY EXAM Yelena Garcia MD 08/13/2024 0047 Drains and/or Catheters: NG/OG/Feeding Tube NG - [place] sump 16 Fr Right nostril (Active) Present on Admission to Healthcare Facility N 08/12/241858 Tube Status Clamped 08/12/242243 Placement Verification X-ray 08/12/242243 Site Assessment Clean;Dry;Intact 08/12/242243 NG/OG Interventions Air injected into blue air vent port 08/12/241858 Response To Intervention No resistance met 08/12/241858 Tube Securement Anchored to nostril center with adhesive device 08/12/241858 [REMOVED] Urethral Catheter Latex 16 Fr. (Removed) Tourniquet Times: Implants: Findings: Terminal ileum was intussuscepted into the ascending colon and went up about to the mid ascending colon. There was a desmoplastic reaction in the retroperitoneum. It was difficult to tell what the etiology for the intussusception was as we could not reduce it. As we came around the hepatic flexure towards the pylorus of the stomach there was a desmoplastic reaction there. Indications: Marina Moraes is an 78 y.o. female who is having surgery for Intussusception (Multi) [K56.1]. The patient was seen in the preoperative area. The risks, benefits, complications, treatment options, non-operative alternatives, expected recovery and outcomes were discussed with the patient. The possibilities of reaction to medication, pulmonary aspiration, injury to surrounding structures, bleeding, recurrent infection, the need for additional procedures, failure to diagnose a condition, and creating a complication requiring transfusion or operation were discussed with the patient. The patient concurred with the proposed plan, giving informed consent. The site of surgery was properly noted/marked if necessary per policy. The patient has been actively warmed in preoperative area. Preopera tive antibiotics have been ordered and given within 1 hours of incision. Venous thrombosis prophylaxis have been ordered including unilateral sequential compression device Procedure Details: Patient was brought to the operating room and placed supine upon the operating table. SCD devices were in place. Operative huddle was done. After the uneventful administration of ageneral anesthetic the abdomen was prepped and draped in usual sterile fashion. Due to her history of right partial mastectomy with axillary lymph node dissection the blood pressure cuff was placed on her leg. Midline incision was made and the peritoneal cavity entered under direct vision. There isascitic fluid which was bile-stained. This was aspirated. Due to her body habitus we had to extend the incision the full length to just try and get lateral enough to see the line of Toldt. The small bowel was intussuscepted into the cecum I went about midway up the ascending colon. It was quite hard. There is a desmoplastic reaction. There was some whitish plaques which were adherent to the smallbowel but did not look like carcinomatosis and of uncertain significance. The appendix was grasped and the mesoappendix taken down with the impact. The mesentery of the ascending colon was scored andthe line of Toldt incised using cautery. Once we got through the desmoplastic reaction we were ableto mobilize the mesentery. We came up around the hepatic flexure and as we got towards the pylorus it seemed to be more densely adherent. The distal ileum was divided using RAIN stapler and the mesente ry taken down with the impact. As we got to the intussuscepted portion the mesentery was were somewhat together we went through them very carefully. As we got towards the mid ascending colon we passed another RAIN stapler and divided the bowel. The specimen was removed using the impact. There was some mesenteric bleeders and these were clamped and tied with Vicryl ties. A functional end-to-end anastomosis was then done using the RAIN staplers. The bowel was closed off using another RAIN stapler. The mesentery's were approximated using 3- 0 Vicryl and the staple line reinforced with 3-0 Vicryl. The abdomen was irrigated and aspirated. Bilateral tap blocks were then done. New line we then switched out to the clean closure pack and closed the fascia using a running suture of looped #1 PDS. This was tied in the midline. Subcutaneous tissues were approximated using interrupted sutures of 3-0 Vicryl. The skin was closed with clips. Sterile dressings were applied. Patient tolerated the procedurewell and was sent to the recovery area in stable condition. All needle and sponge counts were correct. Evidence of Infection: Complications: None; patient tolerated the procedure well. Disposition: PACU - hemodynamically stable. Condition: stable Yelena Garcia documented in this [facility] Work Phone: 1(335) 407-801906-01-2025 Procedure note* Lea Chowdhury RRT - 08/21/2024 3:23 AM EDTProcedure(s): PULSE OXIMETRY, OVERNIGHT Overnight Pulse OX Study: 08/20-@ 2227 pt started on RA 21% on Home CPAP SpO2 100% 2325 -pt asleep on Home CPAP machine RA 21% SpO2 83% HR 69 3L FiO2 Bleed in via Home CPAP post NnD328% HR 69 w/3L FiO2 0041- found pt off CPAP asleep RA 21% along with overnight PO taken off SpO2 88%. Woke pt up and asked to place pt back on Overnight PO along with Home CPAP but pt refused to go back on Home CPAP. Pt agreed to allow RT to place NC on but not Home CPAP. 3L NC and overnight PO back on pt. SpO2 93% HR 76. 0207- pt asleep 3L NC SpO2 99% HR 77 0253- pt is asleep 3L NC SpO2 97% HR 81 0400- pt is asleep 3L NC SpO2 98 HR 81 [facility]06-01-2025 Procedure note* Lea Chowdhury RRT - 08/21/2024 3:23 AM EDTProcedure(s): PULSE OXIMETRY, OVERNIGHT Overnight Pulse OX Study: 08/20-@ 2227 pt started on RA 21% on Home CPAP SpO2 100% 2325 -pt asleep on Home CPAP machine RA 21% SpO2 83% HR 69 3L FiO2 Bleed in via Home CPAP post GlU618% HR 69 w/3L FiO2 0041- found pt off CPAP asleep RA 21% along with overnight PO taken off SpO2 88%. Woke pt up and asked to place pt back on Overnight PO along with Home CPAP but pt refused to go back on Home CPAP. Pt agreed to allow RT to place NC on but not Home CPAP. 3L NC and overnight PO back on pt. SpO2 93% HR 76. 0207- pt asleep 3L NC SpO2 99% HR 77 0253- pt is asleep 3L NC SpO2 97% HR 81 0400- pt is asleep 3L NC SpO2 98 HR 81 * Swetha Biswas RN - 08/16/2024 11:08 AM EDT Midline Insertion Procedure Note Procedure: Insertion of #4 FR/18G Midline Indications: IV therapy Procedure Details Midline sterile techniques were used including antiseptics, cap, gloves, hand hygiene, mask, and sheet. Sedation: No #4 FR/18G Midline inserted to the left Basilic vein per hospital protocol. Blood return: yes Findings: Catheter inserted to 14 cm, with 0 cm. Exposed. Mid upper arm circumference is 42.5 cm. There were no changes to vital signs. The catheter was flushed with 20 cc NS. Patient did tolerate the procedure well. Recommendations: Midline Brochure given to patient with teaching instruction. Okay to use Midline at this time. documented in this [facility] Work Phone: 1(319) 258-585406-01-2025 veterinary practice manager Note* Significant Event - Lea Chowdhury RRT - 08/21/2024 12:52 AM EDT Pt took off Home CPAP and overnight pulse ox study. Pt stated she hasn't worn the cpap in weeks andshe didn't care to wear the Home CPAP anymore. Tried to re- educate pt but pt said she didn't want to wear CPAP anymore. I explained to pt that she did require 3L FiO2 bleed in her Home CPAP while shesleep due to her SpO2 83% RA 21% while asleep and if she wasn't going to wear her Home CPAP unit then we needed to wear 3L NC to keep her SpO2 >92%. Pt agreed 3L NC placed and overnight pulse ox study placed back on pt. Overnight PO study continues. Pt currently on 3L NC SpO2 93% hr 76 RR 18 [facility] Work Phone: [phone]) [phone] Plan of care note* Care Plan - Nisha Frey RRT - 08/20/2024 10:28 PM EDT Patient was found off CPAP and oxygen and was sating 74%. Patient was placed back on her CPAP and only recovered to 83%. Patient was removed from CPAP and placed on 2L NC which she recovered to 94%. Dr Boston was made aware and RT asked for overnight PO study to be done. Patient was placed on overnight PO at 2228 on room air on Home CPAP. Patient is maintaining sats at this time. [facility]05-31-2025 Plan of care note* Care Plan - Lisette Egan RN - 08/20/2024 11:16 AM EDT The patient's goals for the shift include The clinical goals for the shift include have BM Over the shift, the patient did progress toward goals Problem: Discharge Planning Goal: Discharge to home or other facility with appropriate resources Outcome: Progressing Problem: Skin Goal: Decreased wound size/increased tissue granulation at next dressing change Outcome: Progressing Problem: Skin Goal: Prevent/manage excess moisture Outcome: Progressing [facility]05-30-2025 Plan of care note* Care Plan - Lakshmi Pollock RN - 08/19/2024 9:26 AM EDT Problem: Skin Goal: Decreased wound size/increased tissue granulation at next dressing change Outcome: Progressing Goal: Participates in plan/prevention/treatment measures Outcome: Progressing Goal: Prevent/manage excess moisture Outcome: Progressing Goal: Prevent/minimize sheer/friction injuries Outcome: Progressing Goal: Promote/optimize nutrition Outcome: Progressing Goal: Promote skin healing Outcome: Progressing Problem: Fall/Injury Goal: Not fall by end of shift Outcome: Progressing Goal: Be free from injury by end of the shift Outcome: Progressing Goal: Verbalize understanding of personal risk factors for fall in the hospital Outcome: Progressing Goal: Verbalize understanding of risk factor reduction measures to prevent injury from fall in the home Outcome: Progressing Goal: Use assistive devices by end of the shift Outcome: Progressing Goal: Pace activities to prevent fatigue by end of the shift Outcome: Progressing Problem: Pain Goal: Takes deep breaths with improved pain control throughout the shift Outcome: Progressing Goal: Turns in bed with improved pain control throughout the shift Outcome: Progressing Goal: Walks with improved pain control throughout the shift Outcome: Progressing Goal: Performs ADL's with improved pain control throughout shift Outcome: Progressing Goal: Participates in PT with improved pain control throughout the shift Outcome: Progressing Goal: Free from opioid side effects throughout the shift Outcome: Progressing Goal: Free from acute confusion related to pain meds throughout the shift Outcome: Progressing Problem: Pain - Adult Goal: Verbalizes/displays adequate comfort level or baseline comfort level Outcome: Progressing Problem: Safety - Adult Goal: Free from fall injury Outcome: Progressing Problem: Discharge Planning Goal: Discharge to home or other facility with appropriate resources Outcome: Progressing Problem: Chronic Conditions and Co-morbidities Goal: Patient's chronic conditions and co-morbidity symptoms are monitored and maintained or improved Outcome: Progressing Problem: Nutrition Goal: Nutrient intake appropriate for maintaining nutritional needs Outcome: Progressing [facility]05-29-2025 Nurse Note* Jaxson Marr RRT - 08/18/2024 7:28 PM EDT Pt has home CPAP but cannot wear due to NG tube. [facility]05-29-2025 Nurse Note* Jaxson Marr RRT - 08/18/2024 7:28 PM EDT Pt has home CPAP but cannot wear due to NG tube. [facility] Work Phone: [phone]) 969-551505-29-2025 Note* Documentation Clarification Note - Yelena Garcia MD - 08/18/2024 9:46 AM EDT PATIENT: MARINA MORAES : 1945 ADMIT DATE: 08/12/2024 11:37 AM DISCH DATE: RESPONDING PROVIDER #: [id number] PROVIDER RESPONSE TEXT: I agree with 911 telecommunicator diagnosis of Moderate malnutrition on 08/17/24 CDI QUERY TEXT: Clarification Instruction: Based on your assessment of the patient and the clinical information, please provide the requested documentation by clicking on the appropriate radio button and enter any additional information if prompted. Question: Please further clarify this patient nutritional status as When answering this query, please exercise your independent professional judgment. The fact that a question is being asked, does not imply that any particular answer is desired or expected. The patient's clinical indicators include: Clinical Information: * 78 year old female admitted for intussusception Clinical Indicators: * 08/17/[address] Malnutrition Diagnosis: Moderate malnutrition related to acute disease or injury Related to: poor appetite As Evidenced by: Mild-Moderate subcutaneous fat loss - Triceps, Mild-Moderate Muscle wasting -temporalis, interosseous Treatment: * Advance diet if able- If unable RD recommendations of Parenteral Nutrition: Management of delivery rate of parenteral nutrition. Goal: start PPN Clinimix 4.25/5at 30ml/hr advance as appropriate togoal rate of 80ml/hr to meet protein needs Risk Factors: * 08/17/24 PN most likely still has a prolonged postop ileus * NPO Options provided: -- I agree with 911 telecommunicator diagnosis of Moderate malnutrition on 08/17/24 -- Other - I will add my own diagnosis -- Refer to Clinical Documentation Reviewer Query created by: Kylie Schultz on 08/18/2024 7:29 AM Electronically signed by: YELENA GARCIA MD 08/18/2024 9:45 AM [facility] Work Phone: 1([phone]) [phone] Note* Documentation Clarification Note - Yelena Garcia MD - 08/18/2024 9:46 AM EDT PATIENT: MARINA MORAES #: [id number] : 1945 ADMIT DATE: 08/12/2024 11:37 AM DISCH DATE: RESPONDING PROVIDER #: [id number] PROVIDER RESPONSE TEXT: Acute renal failure is clinically significant and required treatment/monitoring CDI QUERY TEXT: Clarification Instruction: Based on your assessment of the patient and the clinical information, please provide the requested documentation by clicking on the appropriate radio button and enter any additional information if prompted. Question: Is there a diagnosis indicative of the lab values or image study When answering this query, please exercise your independent professional judgment. The fact that a question is being asked, does not imply that any particular answer is desired or expected. The patient's clinical indicators include: Clinical Information: * 78 year old female admitted for Intussusception Clinical Indicators: * 08/12/24 to OR for resection * 08/13/24 progress note Repeat labs show her BUN and creatinine are elevated. Her decreased urine output is probably secondary to under resuscitation * 08/14/24 Progress note She was under resuscitated yesterday and had minimal urine output with a bump in her creatinine. She was given boluses and her IV rate increased. She began voiding overnight and so far today is made 300 mL of urine. Creatinine is coming down but is still elevated. Medication adjustments are being made * Labs creatinine/BUN 08/12- 11/0.93, 08/13 18:36 -19/1.78 - 08/14 24/1.75- 08/15 -/1.44- 08/16 19/1.05, 08/18 - 19/0.76 Treatment: * Serial labs * 08/12 1250 ml IV bolus NS- IV LR 75 ml/hr * 08/13 NS 500 ml IV bolus * 08/14 500 ml IV bolus NS Risk Factors: * OR * bowel intussusception * under fluid resuscitated Options provided: -- Acute renal failure is clinically significant and required treatment/monitoring -- Elevated BUN and creatinine not requiring treatment or evaluation -- Other - I will add my own diagnosis -- Refer to Clinical Documentation Reviewer Query created by: Kylie Schultz on 08/18/2024 7:07 AM Electronically signed by: YELENA GARCIA MD 08/18/2024 9:45 AM [facility] Work Phone: [phone]) [phone] Plan of care note* Care Plan - Asha Braxton RN - 08/18/2024 7:27 AM EDT Problem: Skin Goal: Decreased wound size/increased tissue granulation at next dressing change Outcome: Progressing Goal: Participates in plan/prevention/treatment measures Outcome: Progressing Goal: Prevent/manage excess moisture Outcome: Progressing Goal: Prevent/minimize sheer/friction injuries Outcome: Progressing Goal: Promote/optimize nutrition Outcome: Progressing Goal: Promote skin healing Outcome: Progressing Problem: Fall/Injury Goal: Not fall by end of shift Outcome: Progressing Goal: Be free from injury by end of the shift Outcome: Progressing Goal: Verbalize understanding of personal risk factors for fall in the hospital Outcome: Progressing Goal: Verbalize understanding of risk factor reduction measures to prevent injury from fall in the home Outcome: Progressing Goal: Use assistive devices by end of the shift Outcome: Progressing Goal: Pace activities to prevent fatigue by end of the shift Outcome: Progressing Problem: Pain Goal: Takes deep breaths with improved pain control throughout the shift Outcome: Progressing Goal: Turns in bed with improved pain control throughout the shift Outcome: Progressing Goal: Walks with improved pain control throughout the shift Outcome: Progressing Goal: Performs ADL's with improved pain control throughout shift Outcome: Progressing Goal: Participates in PT with improved pain control throughout the shift Outcome: Progressing Goal: Free from opioid side effects throughout the shift Outcome: Progressing Goal: Free from acute confusion related to pain meds throughout the shift Outcome: Progressing Problem: Pain - Adult Goal: Verbalizes/displays adequate comfort level or baseline comfort level Outcome: Progressing Problem: Safety - Adult Goal: Free from fall injury Outcome: Progressing Problem: Discharge Planning Goal: Discharge to home or other facility with appropriate resources Outcome: Progressing Problem: Chronic Conditions and Co-morbidities Goal: Patient's chronic conditions and co-morbidity symptoms are monitored and maintained or improved Outcome: Progressing Problem: Nutrition Goal: Nutrient intake appropriate for maintaining nutritional needs Outcome: Progressing The patient's goals for the shift include keep ambulating and pass gas The clinical goals for the shift include less nausea,active bowel sounds no falls, labs and vs wdl,increase bowel sounds [facility]05-28-2025 veterinary practice manager Note* Significant Event - Yelena Garcia MD - 08/17/2024 4:10 PM EDT Sent patient for small bowel study today. She vomited up the contrast and the study was terminated.Only very scant amount that out of her stoma. She does have stool and air with contrast distal to her anastomosis which probably represents the contrast from preop. The colon was not distorted like the small bowel was distended. There were no air-fluid levels. Because the bowel was not displaced I do not think it was fluid-filled. Patient most likely still has a prolonged postop ileus so I will not proceed with CT at this point. Patient is encouraged to get up and ambulate. We discussed the possibility of starting peripheral TPN if she gets to about 7 days with no bowel function. She states she would prefer to not have TPN. Patient has had some hypertension. Hemoglobin is slightly down on yesterday's labs. It is possible she is mobilizing fluid. I will decrease her IV rate and observe at this point. We will repeat her labs in the morning. [facility] Work Phone: [phone]) 139-366605-28-2025 Plan of care note* Care Plan - Lisa Salvador RN - 08/17/2024 1:06 PM EDT Problem: Skin Goal: Decreased wound size/increased tissue granulation at next dressing change Outcome: Progressing Goal: Participates in plan/prevention/treatment measures Outcome: Progressing Goal: Prevent/manage excess moisture Outcome: Progressing Goal: Prevent/minimize sheer/friction injuries Outcome: Progressing Goal: Promote/optimize nutrition Outcome: Progressing Goal: Promote skin healing Outcome: Progressing Problem: Fall/Injury Goal: Not fall by end of shift Outcome: Progressing Goal: Be free from injury by end of the shift Outcome: Progressing Goal: Verbalize understanding of personal risk factors for fall in the hospital Outcome: Progressing Goal: Verbalize understanding of risk factor reduction measures to prevent injury from fall in the home Outcome: Progressing Goal: Use assistive devices by end of the shift Outcome: Progressing Goal: Pace activities to prevent fatigue by end of the shift Outcome: Progressing Problem: Pain Goal: Takes deep breaths with improved pain control throughout the shift Outcome: Progressing Goal: Turns in bed with improved pain control throughout the shift Outcome: Progressing Goal: Walks with improved pain control throughout the shift Outcome: Progressing Goal: Performs ADL's with improved pain control throughout shift Outcome: Progressing Goal: Participates in PT with improved pain control throughout the shift Outcome: Progressing Goal: Free from opioid side effects throughout the shift Outcome: Progressing Goal: Free from acute confusion related to pain meds throughout the shift Outcome: Progressing Problem: Pain - Adult Goal: Verbalizes/displays adequate comfort level or baseline comfort level Outcome: Progressing Problem: Safety - Adult Goal: Free from fall injury Outcome: Progressing Problem: Discharge Planning Goal: Discharge to home or other facility with appropriate resources Outcome: Progressing Problem: Chronic Conditions and Co-morbidities Goal: Patient's chronic conditions and co-morbidity symptoms are monitored and maintained or improved Outcome: Progressing Problem: Nutrition Goal: Nutrient intake appropriate for maintaining nutritional needs Outcome: Progressing The clinical goals for the shift include active bowel sounds, decrease nausea [facility]05-27-2025 Procedure note* Swetha Biswas RN - 08/16/2024 11:08 AM EDT Midline Insertion Procedure Note Procedure: Insertion of #4 FR/18G Midline Indications: IV therapy Procedure Details Midline sterile techniques were used including antiseptics, cap, gloves, hand hygiene, mask, and sheet. Sedation: No #4 FR/18G Midline inserted to the left Basilic vein per hospital protocol. Blood return: yes Findings: Catheter inserted to 14 cm, with 0 cm. Exposed. Mid upper arm circumference is 42.5 cm. There were no changes to vital signs. The catheter was flushed with 20 cc NS. Patient did tolerate the procedure well. Recommendations: Midline Brochure given to patient with teaching instruction. Okay to use Midline at this time. [facility]05-27-2025 Plan of care note* Care Plan - Lisa Salvador RN - 08/16/2024 9:18 AM EDT Problem: Skin Goal: Decreased wound size/increased tissue granulation at next dressing change Outcome: Progressing Goal: Participates in plan/prevention/treatment measures Outcome: Progressing Goal: Prevent/manage excess moisture Outcome: Progressing Goal: Prevent/minimize sheer/friction injuries Outcome: Progressing Goal: Promote/optimize nutrition Outcome: Progressing Goal: Promote skin healing Outcome: Progressing Problem: Fall/Injury Goal: Not fall by end of shift Outcome: Progressing Goal: Be free from injury by end of the shift Outcome: Progressing Goal: Verbalize understanding of personal risk factors for fall in the hospital Outcome: Progressing Goal: Verbalize understanding of risk factor reduction measures to prevent injury from fall in the home Outcome: Progressing Goal: Use assistive devices by end of the shift Outcome: Progressing Goal: Pace activities to prevent fatigue by end of the shift Outcome: Progressing Problem: Pain Goal: Takes deep breaths with improved pain control throughout the shift Outcome: Progressing Goal: Turns in bed with improved pain control throughout the shift Outcome: Progressing Goal: Walks with improved pain control throughout the shift Outcome: Progressing Goal: Performs ADL's with improved pain control throughout shift Outcome: Progressing Goal: Participates in PT with improved pain control throughout the shift Outcome: Progressing Goal: Free from opioid side effects throughout the shift Outcome: Progressing Goal: Free from acute confusion related to pain meds throughout the shift Outcome: Progressing The clinical goals for the shift include active bowel sounds, pass flatus [facility] Work Phone: [phone] 383-511805-26-2025 veterinary practice manager Note* Significant Event - Yelena Garcia MD - 08/15/2024 4:20 PM EDT Patient accidentally pulled her left upper arm IV out. Nursing has been trying to place IVs with ultrasound etc. and have been unable to obtain 1. I think the central line is overkill. Patient prefers to not use her right arm as she had an axillary lymph node dissection a number of years ago related to a breast cancer operation. As such the only reasonable option is to put it in her foot which was done. This is secured. She is encouraged to still ambulate and to keep her foot elevated when in bed. They will also elevate her left upper extremity and apply conservative measures to try and take down the swelling and the bruising so if she does need access again we could try the left arm. I explained to her why we cannot just simply feed her without having flatus or bowel movement and NG outputs being 350 this shift. She is struggling to understand. [facility] Work Phone: [phone]) [phone] Plan of care note* Care Plan - Lakshmi Pollock RN - 08/15/2024 8:59 AM EDT Problem: Skin Goal: Participates in plan/prevention/treatment measures Outcome: Progressing Goal: Prevent/manage excess moisture Outcome: Progressing Goal: Prevent/minimize sheer/friction injuries Outcome: Progressing Goal: Promote/optimize nutrition Outcome: Progressing Problem: Fall/Injury Goal: Not fall by end of shift Outcome: Progressing Goal: Be free from injury by end of the shift Outcome: Progressing Goal: Verbalize understanding of personal risk factors for fall in the hospital Outcome: Progressing Goal: Verbalize understanding of risk factor reduction measures to prevent injury from fall in the home Outcome: Progressing Goal: Use assistive devices by end of the shift Outcome: Progressing Goal: Pace activities to prevent fatigue by end of the shift Outcome: Progressing Problem: Pain Goal: Takes deep breaths with improved pain control throughout the shift Outcome: Progressing Goal: Turns in bed with improved pain control throughout the shift Outcome: Progressing Goal: Walks with improved pain control throughout the shift Outcome: Progressing Goal: Performs ADL's with improved pain control throughout shift Outcome: Progressing Goal: Participates in PT with improved pain control throughout the shift Outcome: Progressing Goal: Free from opioid side effects throughout the shift Outcome: Progressing Goal: Free from acute confusion related to pain meds throughout the shift Outcome: Progressing [facility] Work Phone: [phone]) 898-472605-26-2025 Consult note* Margret Holguin RDN, LD - 08/15/2024 7:51 AM EDTAssociated Order(s): IP CONSULT TO NUTRITION SERVICES Nutrition Initial Assessment: Nutrition Assessment Reason for Assessment: Admission nursing screening Patient is a 78 y.o. 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 per EMR, ptwith a 15lb weight loss in 9 months. unable to verify recent weight loss at this time. will continue to monitor Significant Weight Loss: No Nutrition Focused Physical Exam Findings: Subcutaneous Fat Loss: Defer Subcutaneous Fat Loss Assessment: Defer all Defer All Reason: remote assessmenmt Muscle Wasting: Defer Muscle Wasting Assessment: Defer all Defer All Reason: remote assessment Edema: Edema: none Physical Findings: Digestive System Findings: Abdominal pain, Nausea, Vomiting Nutrition Significant Labs: CBC Trend: Results from last 7 days Lab Units 08/15/24 0440 08/14/24 0531 08/13/24 1836 08/13/24 0837 WBC AUTO x10*3/uL 1.7* 1.7* 2.0* 1.3* RBC AUTO x10*6/uL 2.17* 2.40* 3.01* 3.35* HEMOGLOBIN g/dL 7.9* 8.6* 10.8* 12.0 HEMATOCRIT % 24.0* 26.6* 32.3* 35.5* MCV fL 111* 111* 107* 106* PLATELETS AUTO x10*3/uL 133* 128* 138* 205 , BMP Trend: Results from last 7 days Lab Units 08/15/24 0440 08/14/24 0531 08/13/24 1836 08/13/24 0837 GLUCOSE mg/dL 70* 94 106* 107* CALCIUM mg/dL 7.4* 7.3* 7.8* 6.6* SODIUM mmol/L 140 137 137 140 POTASSIUM mmol/L 3.6 4.3 4.5 3.2* CO2 mmol/L 23 22 24 21 CHLORIDE mmol/L 109* 107 105 112* BUN mg/dL 23 24* 19 12 CREATININE mg/dL 1.44* 1.75* 1.78* 0.97 , A1C:No results found for: HGBA1C Nutrition Specific Medications: Scheduled Medications[2] I/O: ; Dietary Orders (From admission, onward) Start Ordered 08/13/241944 NPO Diet Except: Ice chips, Sips with meds; Effective now Diet effective now Comments: May have popsicles Question Answer Comment Except: Ice chips Except: Sips with meds 08/13/24194408/13/24 023 May Participate in Room Service ( ROOM SERVICE MAY PARTICIPATE) Once Question: . Answer: Yes 08/13/24230 Estimated Needs: Total Energy Estimated Needs in 24 hours (kCal): 1230 kCal Method for Estimating Needs: [facility] [place] Protein Estimated Needs in 24 Hours (g): (84-100) Method for Estimating 24 Hour Protein Needs: 1.0-1.2g/kg Total Fluid Estimated Needs in 24 Hours (mL): 1230 mL Method for Estimating 24 Hour Fluid Needs: 1ml/kcal or per MD Nutrition Diagnosis Nutrition Diagnosis Patient has Nutrition Diagnosis: Yes Diagnosis Status (1): New Nutrition Diagnosis 1: Predicted inadequate nutrient intake Related to (1): intussusception As Evidenced by (1): pt reported n/v poor po intake, weight loss upon admission Nutrition Interventions/Recommendations Nutrition Recommendations: Individualized Nutrition Prescription Provided for : once able to advance diet, slowly advance as tolerated supplementing with ensure clear for added calories and protein Nutrition Interventions/Goals: Goal: to attend daily care rounds Additional Interventions: if unable to advance diet, consider nutrition support Education Documentation No documentation found. Nutrition Monitoring and Evaluation Food/Nutrient Related History Monitoring Additional Plans: diet advancement and tolerance Anthropometric Measurements Monitoring and Evaluation Plan: Body weight, Body weight change Body Weight: Body weight - Maintain stable weight Body Weight Change: Body weight gain - Gradual weight gain Biochemical Data, Medical Tests and Procedures Monitoring and Evaluation Plan: Electrolyte/renal panel, Glucose/endocrine profile Electrolyte and Renal Panel: Electrolytes within normal limits, Magnesium, Phosphorus, Potassium Criteria: WNL Glucose/Endocrine Profile: Glucose within normal limits (80-180 mg/dL) Goal Status: New goal(s) identified Time Spent (min): 60 minutes 08/15/24 at 8:05 AM - MARGRET HOLGUIN RDN, LD [1] Past Medical History: Diagnosis Date Breast CA [2] carvedilol, 12.5 mg, oral, BID ceFAZolin, 2 g, intravenous, BID enoxaparin, 30 mg, subcutaneous, q24h metroNIDAZOLE, 500 mg, intravenous, q8h pantoprazole, 40 mg, oral, Daily before breakfast potassium chloride, 20 mEq, intravenous, q2h venlafaxine XR, 37.5 mg, oral, Daily with breakfast [facility] Work Phone: 1(492) 702-450205-26-2025 Consult note* Margret Holguin RDN, LD - 08/15/2024 7:51 AM EDTAssociated Order(s): IP CONSULT TO NUTRITION SERVICES Nutrition Initial Assessment: Nutrition Assessment Reason for Assessment: Admission nursing screening Patient is a 78 y.o. 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 per EMR, ptwith a 15lb weight loss in 9 months. unable to verify recent weight loss at this time. will continue to monitor Significant Weight Loss: No Nutrition Focused Physical Exam Findings: Subcutaneous Fat Loss: Defer Subcutaneous Fat Loss Assessment: Defer all Defer All Reason: remote assessmenmt Muscle Wasting: Defer Muscle Wasting Assessment: Defer all Defer All Reason: remote assessment Edema: Edema: none Physical Findings: Digestive System Findings: Abdominal pain, Nausea, Vomiting Nutrition Significant Labs: CBC Trend: Results from last 7 days Lab Units 08/15/24 0440 08/14/24 0531 08/13/24 18308/13/24 0837 WBC AUTO x10*3/uL 1.7* 1.7* 2.0* 1.3* RBC AUTO x10*6/uL 2.17* 2.40* 3.01* 3.35* HEMOGLOBIN g/dL 7.9* 8.6* 10.8* 12.0 HEMATOCRIT % 24.0* 26.6* 32.3* 35.5* MCV fL 111* 111* 107* 106* PLATELETS AUTO x10*3/uL 133* 128* 138* 205 , BMP Trend: Results from last 7 days Lab Units 08/15/24 0440 08/14/24 0531 08/13/24 18308/13/24 0837 GLUCOSE mg/dL 70* 94 106* 107* CALCIUM mg/dL 7.4* 7.3* 7.8* 6.6* SODIUM mmol/L 140 137 137 140 POTASSIUM mmol/L 3.6 4.3 4.5 3.2* CO2 mmol/L 23 22 24 21 CHLORIDE mmol/L 109* 107 105 112* BUN mg/dL 23 24* 19 12 CREATININE mg/dL 1.44* 1.75* 1.78* 0.97 , A1C:No results found for: HGBA1C Nutrition Specific Medications: Scheduled Medications[2] I/O: ; Dietary Orders (From admission, onward) Start Ordered 08/13/241944 NPO Diet Except: Ice chips, Sips with meds; Effective now Diet effective now Comments: May have popsicles Question Answer Comment Except: Ice chips Except: Sips with meds 08/13/24194408/13/24 023 May Participate in Room Service ( ROOM SERVICE MAY PARTICIPATE) Once Question: . Answer: Yes 08/13/24 023 Estimated Needs: Total Energy Estimated Needs in 24 hours (kCal): 1230 kCal Method for Estimating Needs: MSJ Total Protein Estimated Needs in 24 Hours (g): (84-100) Method for Estimating 24 Hour Protein Needs: 1.0-1.2g/kg Total Fluid Estimated Needs in 24 Hours (mL): 1230 mL Method for Estimating 24 Hour Fluid Needs: 1ml/kcal or per MD Nutrition Diagnosis Nutrition Diagnosis Patient has Nutrition Diagnosis: Yes Diagnosis Status (1): New Nutrition Diagnosis 1: Predicted inadequate nutrient intake Related to (1): intussusception As Evidenced by (1): pt reported n/v poor po intake, weight loss upon admission Nutrition Interventions/Recommendations Nutrition Recommendations: Individualized Nutrition Prescription Provided for : once able to advance diet, slowly advance as tolerated supplementing with ensure clear for added calories and protein Nutrition Interventions/Goals: Goal: to attend daily care rounds Additional Interventions: if unable to advance diet, consider nutrition support Education Documentation No documentation found. Nutrition Monitoring and Evaluation Food/Nutrient Related History Monitoring Additional Plans: diet advancement and tolerance Anthropometric Measurements Monitoring and Evaluation Plan: Body weight, Body weight change Body Weight: Body weight - Maintain stable weight Body Weight Change: Body weight gain - Gradual weight gain Biochemical Data, Medical Tests and Procedures Monitoring and Evaluation Plan: Electrolyte/renal panel, Glucose/endocrine profile Electrolyte and Renal Panel: Electrolytes within normal limits, Magnesium, Phosphorus, Potassium Criteria: WNL Glucose/Endocrine Profile: Glucose within normal limits (80-180 mg/dL) Goal Status: New goal(s) identified Time Spent (min): 60 minutes 08/15/24 at 8:05 AM - MARGRET HOLGUIN RDN, BRIAN [1] Past Medical History: Diagnosis Date Breast CA [2] carvedilol, 12.5 mg, oral, BID ceFAZolin, 2 g, intravenous, BID enoxaparin, 30 mg, subcutaneous, q24h metroNIDAZOLE, 500 mg, intravenous, q8h pantoprazole, 40 mg, oral, Daily before breakfast potassium chloride, 20 mEq, intravenous, q2h venlafaxine XR, 37.5 mg, oral, Daily with breakfast * Yelena Garcia MD - 08/12/2024 9:44 PM EDT Reason For Consult Ileocolic intussusception History Of Present Illness Marina Moraes is a 78 y.o. female presenting with 3-week history of episodic crescendo decrescendo type pain. She denies any blood in her stool. She developed nausea and vomiting today. She hasnot been able to eat much and has lost approximately 25 pounds this past few weeks. She went to an outside ER earlier this week and they did a scan and told her she had gastritis. She presented todayand CT scan was done which raise the possibility of an ileocolic intussusception. Small bowel follow-through had been requested but they would not do it electively and an additional CT was done with oral contrast which showed increase in the amount of small bowel distention from a presumed ileocolic intussusception. Radiology was called to see if they would even consider doing a air barium reduction which they would not. Sequential x-rays were done which did not show the Gastrografin passing into her colon due to the dilute nature at that point, but continued to show increasing small bowel dis tention. She has continued to have episodic abdominal pain to this evening.. Her oncologist was also consulted as her white count was 1.4 and he felt that this should come up with as she had stopped her Ibrance. He stated if her ANC gets below 1 that we could call for recommendations. Past Medical History She has a past medical history of Breast CA. she has hypertension controlled with medication Surgical History She has a past surgical history that includes Joint replacement. She has had a previous left inguinal hernia repair with perforated bowel which she thinks was repaired laparoscopically. She has had hysterectomy. She has had a partial mastectomy with axillary dissection and currently is dealing withmetastatic breast cancer for which she takes medications and recently had radiation therapy to her right hip. Social History She reports that she has quit smoking. Her smoking use included cigarettes. She has been exposed totobacco smoke. She has never used smokeless tobacco. She reports that she does not currently use alcohol. She reports that she does not use drugs. Family History Family History[1] Allergies Iodinated contrast media and Sulfa (sulfonamide antibiotics) Review of Systems Constitutional: no fever, sweats, and chills Cardiovascular: No chest pain or palpitations Respiratory: No cough or shortness of breath Gastrointestinal: As in HPI Genitourinary: no dysuria or urinary frequency Musculoskeletal: no weakness or swelling Integumentary: no rashes Neurological: no confusion Endocrine: no heat or cold intolerance Heme/Lymph: no easy bruising or bleeding Physical Exam Constitutional: No acute distress, conversant, pleasant she is currently pain-free. Neurologic: Alert and oriented Psych: Appropriate affect Ears, Nose, Mouth and Throat: mucus membranes moist Pulmonary: No labored breathing Cardiovascular: Regular rate and rhythm Abdomen: Soft, non-distended, non-tender NG tube in position Musculoskeletal: Moves all extremities, no edema Skin: No jaundice Last Recorded Vitals Blood pressure 173/60, pulse 70, temperature 36.9 C (98.5 F), temperature source Oral, resp. rate 16, height 1.499 m (4' 11), weight 82.6 kg (182 lb), SpO2 96%. Relevant Results I have independently reviewed all her x-rays studies and I have reordered labs given the length of time since the initial presenting labs. Assessment/Plan She states she is known about the metastatic cancer for a while and she has been fairly stable on her current regimen. We discussed the fact that this is an acute problem and even though she has metastatic cancer indication would be to proceed with that as she is done fairly well. We did discuss the uniqueness of intussusceptions in adults and the fact it could be a lipoma but it often is a cancer. I explained I doubt it is her breast cancer and that we usually just resect this and the bowel could be ischemic. She would prefer to proceed with surgery. I did discuss with her we could get in there and there could be nothing wrong or it could just be adhesions that we would take care of. She prefers to proceed with this. We discussed the risks and potential complications. Given the amount ofsmall bowel distention we will plan on doing this open. She understands we will be removing bowel and most likely hooking her back up although she could require a colostomy. We discussed the risk of infections or obstructions necessitating future procedures or operations. All questions were answered and she asked us to proceed. Multiple family members were present. She signed the consent and the OR team was alerted. Yelena Garcia MD [1] No family history on file. documented in this [facility] Work Phone: 1(696) 130-421405-25-2025 veterinary practice manager Note* Significant Event - Yelena Garcia MD - 08/14/2024 6:18 PM EDT Patient continues to make urine. She has wanted to delay the Tylenol as she is not having much discomfort so we will switch it to as needed. She asked nursing to hold her Coreg until she knew her blood pressure was maintaining which it seems to be. She has not ambulated in the [place] yet but plans ondoing it this evening. She has not had flatus but is having some crampy abdominal pain. She states her mouth feels dry and I have told her she can chew gum or have hard candies. She is making adequate urine at this point. I feel her creatinine will continue to come down. She is a difficult blood draw so we will just wait until the morning to get the blood. We rediscussed the operative findings with her right colon stuck far laterally to the retroperitoneum. We again discussed the fact I do not know the etiology whether this was simply a lipoma, a polyp or some form of cancer. She believes shehad a PET/CT in March to did not show any abnormality other than the lesion in her hip for which she received radiation. [facility] Work Phone: 1(165) 789-249705-25-2025 Plan of care note* Care Plan - Lakshmi Pollock RN - 08/14/2024 8:45 AM EDT Problem: Fall/Injury Goal: Not fall by end of shift Outcome: Progressing Goal: Be free from injury by end of the shift Outcome: Progressing Goal: Verbalize understanding of personal risk factors for fall in the hospital Outcome: Progressing Goal: Verbalize understanding of risk factor reduction measures to prevent injury from fall in the home Outcome: Progressing Goal: Use assistive devices by end of the shift Outcome: Progressing Goal: Pace activities to prevent fatigue by end of the shift Outcome: Progressing Problem: Pain Goal: Takes deep breaths with improved pain control throughout the shift Outcome: Progressing Goal: Turns in bed with improved pain control throughout the shift Outcome: Progressing Goal: Walks with improved pain control throughout the shift Outcome: Progressing Goal: Performs ADL's with improved pain control throughout shift Outcome: Progressing Goal: Participates in PT with improved pain control throughout the shift Outcome: Progressing Goal: Free from opioid side effects throughout the shift Outcome: Progressing Goal: Free from acute confusion related to pain meds throughout the shift Outcome: Progressing [facility] Work Phone: 1([phone]) 636-547805-24-2025 veterinary practice manager Note* Significant Event - Yelena Garcia MD - 08/13/2024 7:36 PM EDT Repeat labs show her BUN and creatinine are elevated. Her decreased urine output is probably secondary to under resuscitation. I explained to the patient that I did not give her a lot of fluids as I was not anticipating her third spacing a lot which she apparently appears to be doing. I will give her a fluid bolus and have increased her IV rate. Hemoglobin is stable. White count is now at 2. Her p hosphorus magnesium and potassium are all within the normal range. I have encouraged her to get up and ambulate to lessen her risk for DVT as well as pneumonia. She has been in the room but I have encouraged her to get up in the hallway. She has been sitting in the chair. Otherwise we continue to await return of bowel function. I have told her she could have some ice chips and popsicles which will help with the dry feeling in her mouth from her dehydration and I have offered her Chloraseptic spray which she currently declines but we will have it at her bedside. [facility] Work Phone: 1([phone]) 652-390705-24-2025 Plan of care note* Care Plan - Lakshmi Pollock RN - 08/13/2024 9:10 AM EDT Problem: Skin Goal: Participates in plan/prevention/treatment measures Outcome: Progressing Goal: Prevent/manage excess moisture Outcome: Progressing Goal: Prevent/minimize sheer/friction injuries Outcome: Progressing Goal: Promote/optimize nutrition Outcome: Progressing Problem: Fall/Injury Goal: Not fall by end of shift Outcome: Progressing Goal: Be free from injury by end of the shift Outcome: Progressing Goal: Verbalize understanding of personal risk factors for fall in the hospital Outcome: Progressing Goal: Verbalize understanding of risk factor reduction measures to prevent injury from fall in the home Outcome: Progressing Goal: Use assistive devices by end of the shift Outcome: Progressing Goal: Pace activities to prevent fatigue by end of the shift Outcome: Progressing Problem: Pain Goal: Takes deep breaths with improved pain control throughout the shift Outcome: Progressing Goal: Turns in bed with improved pain control throughout the shift Outcome: Progressing Goal: Walks with improved pain control throughout the shift Outcome: Progressing Goal: Performs ADL's with improved pain control throughout shift Outcome: Progressing Goal: Participates in PT with improved pain control throughout the shift Outcome: Progressing Goal: Free from opioid side effects throughout the shift Outcome: Progressing Goal: Free from acute confusion related to pain meds throughout the shift Outcome: Progressing [facility] Work Phone: 1([phone]) 655-707705-24-2025 Plan of care note* Care Plan - Sulema Braxton RN - 08/13/2024 4:25 AM EDT The patient's goals for the shift include pain reduction The clinical goals for the shift include reduction of pain, nausea Over the shift, the patient did not make progress toward the following goals. Barriers to progression include recent surgery. Recommendations to address these barriers include movement, walking, painmedications.. Problem: Skin Goal: Decreased wound size/increased tissue granulation at next dressing change Outcome: Not Progressing Goal: Participates in plan/prevention/treatment measures Outcome: Not Progressing Goal: Prevent/manage excess moisture Outcome: Not Progressing Goal: Prevent/minimize sheer/friction injuries 08/13/2024424 by Sulema Braxton RN Outcome: Not Progressing 08/13/2024423 by Sulema Braxton RN Flowsheets (Taken 08/13/2024423) Prevent/minimize sheer/friction injuries: Increase activity/out of bed for meals HOB 30 degrees or less Turn/reposition every 2 hours/use positioning/transfer devices Goal: Promote/optimize nutrition Outcome: Not Progressing Goal: Promote skin healing Outcome: Not Progressing Problem: Fall/Injury Goal: Not fall by end of shift Outcome: Not Progressing Goal: Be free from injury by end of the shift Outcome: Not Progressing Goal: Verbalize understanding of personal risk factors for fall in the hospital Outcome: Not Progressing Goal: Verbalize understanding of risk factor reduction measures to prevent injury from fall in the home Outcome: Not Progressing Goal: Use assistive devices by end of the shift Outcome: Not Progressing Goal: Pace activities to prevent fatigue by end of the shift Outcome: Not Progressing Problem: Pain Goal: Takes deep breaths with improved pain control throughout the shift Outcome: Not Progressing Goal: Turns in bed with improved pain control throughout the shift Outcome: Not Progressing Goal: Walks with improved pain control throughout the shift Outcome: Not Progressing Goal: Performs ADL's with improved pain control throughout shift Outcome: Not Progressing Goal: Participates in PT with improved pain control throughout the shift Outcome: Not Progressing Goal: Free from opioid side effects throughout the shift Outcome: Not Progressing Goal: Free from acute confusion related to pain meds throughout the shift Outcome: Not Progressing [facility] Work Phone: 1([phone]) 482-921705-23-2025 Surgery Surgical operation note* Op Note - Yelena Garcia MD - 08/12/2024 11:21 PM EDT ileocecectomy, tap block Operative Note Date: 08/12/2024 - 08/13/2024 OR Location: [facility] OR Name: Marina Moraes, : 1945, Age: 78 y.o., , Sex: female Diagnosis Pre-op Diagnosis * Intussusception (Multi) [K56.1] Post-op Diagnosis * Intussusception (Multi) [K56.1] Procedures ileocecectomy, tap block 44538 - MI COLECTOMY PARTIAL W/ANASTOMOSIS ileocecectomy, tap block 37696 - [place] TAP BLOCK BILATERAL BY INJECTION(S) Surgeons * Yelena Garcia - Primary Resident/Fellow/Other Clerk Telegraph Service: Surgeons and Role: * No surgeons found with a matching role * Staff: PHYSICIAN SURGEON: Combatant Diver Officer: Hiro Riveraub Person: Dionicio Riveraub Person: Vasile Anesthesia Staff: Anesthesiologist: Barak Hays, Procedure Summary Anesthesia: General ASA: III Estimated Blood Loss: 50mL Intra-op Medications: Administrations occurring from 08/12/24 2245 to 08/13/24 0205: Medication Name Total Dose bupivacaine PF 0.25 % (Marcaine) 0.25 % (2.5 mg/mL) injection 40 mL ePHEDrine injection 25 mg fentaNYL (Sublimaze) injection 50 mcg/mL 250 mcg glycopyrrolate (Robinul) injection 0.5 mg hydrALAZINE (Apresoline) injection 5 mg ketamine injection 50 mg/ 5 mL (10 mg/mL) 30 mg lactated Ringer's infusion Cannot be calculated lactated Ringer's infusion 37 mL lidocaine PF (Xylocaine-MPF) local injection 1 % 40 mg neostigmine (Bloxiverz) 3 mg/3 mL syringe 3 mg propofol (Diprivan) injection 10 mg/mL 150 mg rocuronium (ZeMuron) 50 mg/5 mL injection 35 mg succinylcholine chloride injection syringe 100 mg/5 mL 100 mg ceFAZolin (Ancef) 2 g in dextrose (iso) IV 50 mL 50 mL famotidine PF (Pepcid) injection 20 mg 20 mg heparin (porcine) injection 5,000 Units 5,000 Units metroNIDAZOLE (Flagyl) 500 mg in sodium chloride (iso) IV 100 mL 500 mg Anesthesia Record Intraprocedure I/O Totals Intake Neostigmine 0.00 mL The total shown is the total volume documented since Anesthesia Start was filed. lactated Ringer's infusion 2100.00 mL Total Intake 2100 mL Output Urine 100 mL Total Output 100 mL Net Net Volume 2000 mL Specimen: ID Type Source Tests Collected by Time 1 : ileocecum Tissue COLON - CECUM BIOPSY SURGICAL PATHOLOGY EXAM Yelena Garcia MD 08/13/2024 0047 Drains and/or Catheters: NG/OG/Feeding Tube NG - [place] sump 16 Fr Right nostril (Active) Present on Admission to Healthcare Facility N 08/12/241858 Tube Status Clamped 08/12/242243 Placement Verification X-ray 08/12/242243 Site Assessment Clean;Dry;Intact 08/12/242243 NG/OG Interventions Air injected into blue air vent port 08/12/241858 Response To Intervention No resistance met 08/12/241858 Tube Securement Anchored to nostril center with adhesive device 08/12/241858 [REMOVED] Urethral Catheter Latex 16 Fr. (Removed) Tourniquet Times: Implants: Findings: Terminal ileum was intussuscepted into the ascending colon and went up about to the mid ascending colon. There was a desmoplastic reaction in the retroperitoneum. It was difficult to tell what the etiology for the intussusception was as we could not reduce it. As we came around the hepatic flexure towards the pylorus of the stomach there was a desmoplastic reaction there. Indications: Marina Moraes is an 78 y.o. female who is having surgery for Intussusception (Multi) [K56.1]. The patient was seen in the preoperative area. The risks, benefits, complications, treatment options, non-operative alternatives, expected recovery and outcomes were discussed with the patient. The possibilities of reaction to medication, pulmonary aspiration, injury to surrounding structures, bleeding, recurrent infection, the need for additional procedures, failure to diagnose a condition, and creating a complication requiring transfusion or operation were discussed with the patient. The patient concurred with the proposed plan, giving informed consent. The site of surgery was properly noted/marked if necessary per policy. The patient has been actively warmed in preoperative area. Preopera tive antibiotics have been ordered and given within 1 hours of incision. Venous thrombosis prophylaxis have been ordered including unilateral sequential compression device Procedure Details: Patient was brought to the operating room and placed supine upon the operating table. SCD devices were in place. Operative huddle was done. After the uneventful administration of ageneral anesthetic the abdomen was prepped and draped in usual sterile fashion. Due to her history of right partial mastectomy with axillary lymph node dissection the blood pressure cuff was placed on her leg. Midline incision was made and the peritoneal cavity entered under direct vision. There isascitic fluid which was bile-stained. This was aspirated. Due to her body habitus we had to extend the incision the full length to just try and get lateral enough to see the line of Toldt. The small bowel was intussuscepted into the cecum I went about midway up the ascending colon. It was quite hard. There is a desmoplastic reaction. There was some whitish plaques which were adherent to the smallbowel but did not look like carcinomatosis and of uncertain significance. The appendix was grasped and the mesoappendix taken down with the impact. The mesentery of the ascending colon was scored andthe line of Toldt incised using cautery. Once we got through the desmoplastic reaction we were ableto mobilize the mesentery. We came up around the hepatic flexure and as we got towards the pylorus it seemed to be more densely adherent. The distal ileum was divided using RAIN stapler and the mesente ry taken down with the impact. As we got to the intussuscepted portion the mesentery was were somewhat together we went through them very carefully. As we got towards the mid ascending colon we passed another RAIN stapler and divided the bowel. The specimen was removed using the impact. There was some mesenteric bleeders and these were clamped and tied with Vicryl ties. A functional end-to-end anastomosis was then done using the RAIN staplers. The bowel was closed off using another RAIN stapler. The mesentery's were approximated using 3- 0 Vicryl and the staple line reinforced with 3-0 Vicryl. The abdomen was irrigated and aspirated. Bilateral tap blocks were then done. New line we then switched out to the clean closure pack and closed the fascia using a running suture of looped #1 PDS. This was tied in the midline. Subcutaneous tissues were approximated using interrupted sutures of 3-0 Vicryl. The skin was closed with clips. Sterile dressings were applied. Patient tolerated the procedurewell and was sent to the recovery area in stable condition. All needle and sponge counts were correct. Evidence of Infection: Complications: None; patient tolerated the procedure well. Disposition: PACU - hemodynamically stable. Condition: stable Yelena Garcia [facility] Work Phone: [phone]) 798-549305-23-2025 History and physical note* Yelena Garcia MD - 08/12/2024 10:27 PM EDT Consult note will function as H&P. It was decision for surgery [facility] Work Phone: [phone]) 551-904605-23-2025 History and physical note* Yelena Garcia MD - 08/12/2024 10:27 PM EDT Consult note will function as H&P. It was decision for surgery [facility] Work Phone: [phone] 791-951305-23-2025 Consult note* Yelena Garcia MD - 08/12/2024 9:44 PM EDT Reason For Consult Ileocolic intussusception History Of Present Illness Marina Moraes is a 78 y.o. female presenting with 3-week history of episodic crescendo decrescendo type pain. She denies any blood in her stool. She developed nausea and vomiting today. She hasnot been able to eat much and has lost approximately 25 pounds this past few weeks. She went to an outside ER earlier this week and they did a scan and told her she had gastritis. She presented todayand CT scan was done which raise the possibility of an ileocolic intussusception. Small bowel follow-through had been requested but they would not do it electively and an additional CT was done with oral contrast which showed increase in the amount of small bowel distention from a presumed ileocolic intussusception. Radiology was called to see if they would even consider doing a air barium reduction which they would not. Sequential x-rays were done which did not show the Gastrografin passing into her colon due to the dilute nature at that point, but continued to show increasing small bowel dis tention. She has continued to have episodic abdominal pain to this evening.. Her oncologist was also consulted as her white count was 1.4 and he felt that this should come up with as she had stopped her Ibrance. He stated if her ANC gets below 1 that we could call for recommendations. Past Medical History She has a past medical history of Breast CA. she has hypertension controlled with medication Surgical History She has a past surgical history that includes Joint replacement. She has had a previous left inguinal hernia repair with perforated bowel which she thinks was repaired laparoscopically. She has had hysterectomy. She has had a partial mastectomy with axillary dissection and currently is dealing withmetastatic breast cancer for which she takes medications and recently had radiation therapy to her right hip. Social History She reports that she has quit smoking. Her smoking use included cigarettes. She has been exposed totobacco smoke. She has never used smokeless tobacco. She reports that she does not currently use alcohol. She reports that she does not use drugs. Family History Family History[1] Allergies Iodinated contrast media and Sulfa (sulfonamide antibiotics) Review of Systems Constitutional: no fever, sweats, and chills Cardiovascular: No chest pain or palpitations Respiratory: No cough or shortness of breath Gastrointestinal: As in HPI Genitourinary: no dysuria or urinary frequency Musculoskeletal: no weakness or swelling Integumentary: no rashes Neurological: no confusion Endocrine: no heat or cold intolerance Heme/Lymph: no easy bruising or bleeding Physical Exam Constitutional: No acute distress, conversant, pleasant she is currently pain-free. Neurologic: Alert and oriented Psych: Appropriate affect Ears, Nose, Mouth and Throat: mucus membranes moist Pulmonary: No labored breathing Cardiovascular: Regular rate and rhythm Abdomen: Soft, non-distended, non-tender NG tube in position Musculoskeletal: Moves all extremities, no edema Skin: No jaundice Last Recorded Vitals Blood pressure 173/60, pulse 70, temperature 36.9 C (98.5 F), temperature source Oral, resp. rate 16, height 1.499 m (4' 11), weight 82.6 kg (182 lb), SpO2 96%. Relevant Results I have independently reviewed all her x-rays studies and I have reordered labs given the length of time since the initial presenting labs. Assessment/Plan She states she is known about the metastatic cancer for a while and she has been fairly stable on her current regimen. We discussed the fact that this is an acute problem and even though she has metastatic cancer indication would be to proceed with that as she is done fairly well. We did discuss the uniqueness of intussusceptions in adults and the fact it could be a lipoma but it often is a cancer. I explained I doubt it is her breast cancer and that we usually just resect this and the bowel could be ischemic. She would prefer to proceed with surgery. I did discuss with her we could get in there and there could be nothing wrong or it could just be adhesions that we would take care of. She prefers to proceed with this. We discussed the risks and potential complications. Given the amount ofsmall bowel distention we will plan on doing this open. She understands we will be removing bowel and most likely hooking her back up although she could require a colostomy. We discussed the risk of infections or obstructions necessitating future procedures or operations. All questions were answered and she asked us to proceed. Multiple family members were present. She signed the consent and the OR team was alerted. Yelena Garcia MD [1] No family history on file. [facility] Work Phone: [phone] Note1. Orally administered contrast is very dilute and limits evaluation. Not definitively seen within the colon. There is again noted increasing distention of loops of small bowel now measuring up to 3.9 cm concerning for obstruction. MACRO: None Signed by: Aubrey Middleton 08/12/2024 6:30 PM Dictation workstation: [id number] Physician Emergency department Note* Jesusita Sim PA-C - 08/12/2024 12:00 PM EDTAssociated Order(s): ECG 12 Lead; Critical Care Patient is a 78-year-old female with a history of metastatic breast cancer, currently undergoing immunotherapy who presents to the emergency room with a chief complaint of epigastric abdominal pain and vomiting. She states that this has been ongoing for at least 3 to 4 weeks. She states that this morning she was unable to even keep down water. She states that she will get intermittent abdominal pain that comes and goes. She states that she can hear gurgling in her stomach. She has had 1 episodeof diarrhea but otherwise denies any diarrhea or constipation. She was seen at [facility] ER on July [address] scan. She states that she was told she had gastritis. She is on Prilosec, reports that she has been on Carafate which did not seem to help. She denies any fever or chills. No chest pain or shortness of breath. She was prescribed Zofran but states that it was not the ODT Zofran. Review of Systems Constitutional: Negative for chills and fever. HENT: Negative for ear pain and sore throat. Eyes: Negative for pain and visual disturbance. Respiratory: Negative for cough and shortness of breath. Cardiovascular: Negative for chest pain and palpitations. Gastrointestinal: Positive for abdominal pain, nausea and vomiting. Genitourinary: Negative for dysuria and hematuria. Musculoskeletal: Negative for arthralgias and back pain. Skin: Negative for color change and rash. Neurological: Negative for seizures and syncope. All other systems reviewed and are negative. Physical Exam Vitals and nursing note reviewed. Constitutional: General: She is not in acute distress. Appearance: She is well-developed. She is not ill-appearing. HENT: Head: Normocephalic and atraumatic. Eyes: Extraocular Movements: Extraocular movements intact. Conjunctiva/sclera: Conjunctivae normal. Pupils: Pupils are equal, round, and reactive to light. Cardiovascular: Rate and Rhythm: Normal rate and regular rhythm. Heart sounds: No murmur heard. Pulmonary: Effort: Pulmonary effort is normal. No respiratory distress. Breath sounds: Normal breath sounds. No stridor. No wheezing, rhonchi or rales. Chest: Chest wall: No tenderness. Abdominal: General: Bowel sounds are increased. Palpations: Abdomen is soft. There is no fluid wave, hepatomegaly, splenomegaly, mass or pulsatile mass. Tenderness: There is abdominal tenderness in the right upper quadrant, epigastric area and left upper quadrant. Negative signs include Lim's sign, Rovsing's sign, McBurney's sign and psoas sign. Hernia: No hernia is present. Musculoskeletal: General: No swelling. Cervical back: Neck supple. Skin: General: Skin is warm and dry. Capillary Refill: Capillary refill takes less than 2 seconds. Neurological: General: No focal deficit present. Mental Status: She is alert and oriented to person, place, and time. Psychiatric: Mood and Affect: Mood normal. Labs Reviewed CBC WITH AUTO DIFFERENTIAL - Abnormal Result Value WBC 1.4 (*) nRBC 0.0 RBC 3.01 (*) Hemoglobin 10.8 (*) Hematocrit 31.6 (*) MCV 105 (*) MCH 35.9 (*) MCHC 34.2 RDW 16.7 (*) Platelets 200 Neutrophils % 64.5 Immature Granulocytes %, Automated 0.7 Lymphocytes % 17.4 Monocytes % 14.5 Eosinophils % 0.7 Basophils % 2.2 Neutrophils Absolute 0.89 (*) Immature Granulocytes Absolute, Automated 0.01 Lymphocytes Absolute 0.24 (*) Monocytes Absolute 0.20 Eosinophils Absolute 0.01 Basophils Absolute 0.03 BASIC METABOLIC PANEL - Abnormal Glucose 112 (*) Sodium 140 Potassium 4.0 Chloride 104 Bicarbonate 29 Anion Gap 11 Urea Nitrogen 11 Creatinine 0.93 eGFR 64 Calcium 9.5 URINALYSIS WITH REFLEX CULTURE AND MICROSCOPIC - Abnormal Color, Urine Light-Yellow Appearance, Urine Clear Specific Drake, Urine 1.013 pH, Urine 6.5 Protein, Urine NEGATIVE Glucose, Urine Normal Blood, Urine NEGATIVE Ketones, Urine TRACE (*) Bilirubin, Urine NEGATIVE Urobilinogen, Urine Normal Nitrite, Urine NEGATIVE Leukocyte Esterase, Urine 250 Fadumo/uL (*) MICROSCOPIC ONLY, URINE - Abnormal WBC, Urine 11-20 (*) RBC, Urine 1-2 Mucus, Urine FEW Amorphous Crystals, Urine 1+ CBC - Abnormal WBC 1.2 (*) nRBC 0.0 RBC 2.71 (*) Hemoglobin 9.7 (*) Hematocrit 28.7 (*) MCV 106 (*) MCH 35.8 (*) MCHC 33.8 RDW 16.7 (*) Platelets 186 LIPASE - Normal Lipase 17 Narrative: Venipuncture immediately after or during the administration of Metamizole may lead to falsely low results. Testing should be performed immediately prior to Metamizole dosing. HEPATIC FUNCTION PANEL - Normal Albumin 4.0 Bilirubin, Total 0.7 Bilirubin, Direct 0.1 Alkaline Phosphatase 59 ALT 9 AST 17 Total Protein 6.7 LACTATE - Normal Lactate 0.9 Narrative: Venipuncture immediately after or during the administration of Metamizole may lead to falsely low results. Testing should be performed immediately prior to Metamizole dosing. TROPONIN I, HIGH SENSITIVITY - Normal Troponin I, High Sensitivity 7 Narrative: Less than 99th percentile of normal range cutoff- Female and children under 18 years old <14 ng/L; Male <21 ng/L: Negative Repeat testing should be performed if clinically indicated. Female and children under 18 years old 14-50 ng/L; Male 21-50 ng/L: Consistent with possible cardiac damage and possible increased clinical risk. Serial measurements may help to assess extent of myocardial damage. >50 ng/L: Consistent with cardiac damage, increased clinical risk and myocardial infarction. Serial measurements may help assess extent of myocardial damage. NOTE: Children less than 1 year old may have higher baseline troponin levels and results should be interpreted in conjunction with the overall clinical context. NOTE: Troponin I testing is performed using a different testing methodology at [facility] than at other [facility]. Direct result comparisons should only be made within the same method. BASIC METABOLIC PANEL - Normal Glucose 94 Sodium 139 Potassium 3.6 Chloride 105 Bicarbonate 27 Anion Gap 11 Urea Nitrogen 9 Creatinine 0.81 eGFR 75 Calcium 8.9 LACTATE - Normal Lactate 0.5 Narrative: Venipuncture immediately after or during the administration of Metamizole may lead to falsely low results. Testing should be performed immediately prior to Metamizole dosing. MAGNESIUM - Normal Magnesium 1.83 URINE CULTURE URINALYSIS WITH REFLEX CULTURE AND MICROSCOPIC Narrative: The following orders were created for panel order Urinalysis with Reflex Culture and Microscopic. Procedure Abnormality Status --------- ------ Urinalysis with Reflex C...[[id number]] Abnormal Final result Extra Urine Doss Tube[[id number]] In process Please view results for these tests on the individual orders. EXTRA URINE DOSS TUBE XR abdomen 1 view Final Result 1. Persistently dilated small bowel loops with minimal interval increase concerning for obstruction. Question some enteric contrast in the distal transverse colon, however evaluation is limited as the contrast is very dilute. Consider CT of the abdomen and pelvis follow-up. MACRO: None Signed by: Aubrey Middleton 08/12/2024 9:07 PM Dictation workstation: [id number] XR chest abdomen for OG NG placement Final Result Enteric tube projects in the gastric fundus. MACRO: None Signed by: Aubrey Colonsdon 08/12/2024 7:32 PM Dictation workstation: [id number] XR abdomen 1 view Final Result 1. Orally administered contrast is very dilute and limits evaluation. Not definitively seen within the colon. There is again noted increasing distention of loops of small bowel now measuring up to 3.9 cm concerning for obstruction. MACRO: None Signed by: Aubrey Colonsdon 08/12/2024 6:30 PM Dictation workstation: [id number] CT abdomen pelvis wo IV contrast Final Result 1. Similar appearance of the fatty density and question of ileocolic intussusception. There may be a lipoma in this region acting as a lead point. There is progressed small-bowel dilatation and new ascites, concerning for progressive obstruction. Recommend surgical consultation. MACRO: None Signed by: Aubrey Colonsdon 08/12/2024 5:30 PM Dictation workstation: [id number] CT abdomen pelvis wo IV contrast Final Result 1. Possible intermittent short-segment ileocolic intussusception resulting in some stasis veins and fecalization of distal ileal contents and moderate dilation of the distal ileal bowel loops. Of note, proximal bowel loops are normal in caliber the stomach is not distended. 2. Multifocal sclerotic lesions in several of the bony structures as detailed above. Blastic metastatic lesions are consideration. 3. There is a small amount of perihepatic peritoneal fluid. 4. There is a moderate size hiatus hernia. 5. There is a small fat containing right inguinal hernia. 6. Possible areas of ecchymosis along the flanks bilaterally posterolateral and superior to the superior aspect of the gluteus musculature. MACRO: None Signed by: Bari Campa 08/12/2024 1:27 PM Dictation workstation: [id number] ECG 12 Lead Performed by: Jesusita Sim PA-C Authorized by: Jesusita Sim PA-C ECG interpreted by ED Physician in the absence of a sock lining examiner: yes Comments: EKG shows sinus rhythm with first-degree AV block. At rate of 67 bpm. MI interval is 214 ms and QRSduration is 94 ms. EKG interpretation per myself, Jesusita Sim Critical Care Performed by: Jesusita Sim PA-C Authorized by: Jesusita Sim PA-C Critical care provider statement: Critical care was necessary to treat or prevent imminent or life-threatening deterioration of the following conditions: Intussception. Critical care was time spent personally by me on the following activities: Ordering and performing treatments and interventions, ordering and review of laboratory studies, ordering and review of radiographic studies, re-evaluation of patient's condition, examination of patient, evaluation of patient's response to treatment and discussions with consultants Care discussed with: admitting provider Medical Decision Making Patient is a 78-year-old female who presents with intermittent abdominal pain for the past 20. She states that her pain comes and goes, at times significant. Neurologist asked her to get CT scan abdomen pelvis without IV contrast shows a possible intermittent shortness of breath, chronic intussusception resulting in some stasis wounds and fecalization of the distal abdominal contents and moderatedilation of the distal ileal bowel. Given this finding, CT scan was discussed with surgeon on-call,Dr. Yelena Garcia. She recommended a small bowel follow-through. I discussed this with radiologist, Dr. Johnson. He reviewed the CT images and does not feel that patient has an intussusception. We discussed imaging options given that the reading radiologist was concerned for an intussusception. Itwas decided that patient would have a CT scan of the abdomen pelvis repeated but with oral contrast. CT scan of the abdomen pelvis with oral contrast shows a similar appearance of a question of an ileocolic intussusception possibly with a lipoma acting as a lead point and there is progression of small bowel dilatation and new ascites concerning for progressive obstruction. I consulted once again with surgeon on- call, Dr. Garcia. She requested that I speak with the radiologist to see if an airor barium reduction is something that could potentially be performed on this. I spoke with radiologist, Dr. Aubrey Middleton who stated that this is not typically done in adults and also given the obstruction this was something that he did not feel patient was a candidate for. He did recommend having a KUB performed to see if the oral contrast that the patient had drink for CT scan had progressed. KUB shows the orally administered contrast is dilute and limits evaluation but no contrast is definitely seen within the colon and bowel loops are distended concerning for obstruction. NG tube was placed per recommendation of surgeon. Dr. Garcia later requested another KUB to see if progression of contrast had occurred. Dr. Garcia also requested that I speak with oncology given the patient's wbc. I spoke with the oncologist on-call for the patient's oncologist, Dr. Thomas. He recommended that the patient's Ibrance be held. He is not concerned about the patient's wbc at this time, states that it is typical forthe patient. He states that neulasta can be considered at an ANC of <1 or <0.5 but did not feel that it needed to be given at this time and recommended reconsultation at that time. Patient re-evaluated by Dr. Garcia and patient will be taken to the OR Amount and/or Complexity of Data Reviewed Labs: ordered. Decision-making details documented in ED Course. Radiology: ordered. Decision-making details documented in ED Course. Risk Decision regarding hospitalization. Diagnoses as of 08/12/242 Intussusception (Multi) Upper abdominal pain Intussusception, ileocecal (Multi) Intestinal obstruction, unspecified cause, unspecified whether partial or complete (Multi) Jesusita Sim PA-C 08/12/242242 Cosigned by Kashif Zimmer DO at 08/14/2024 7:21 AM EDT Associated attestation - Kashif Zimmer DO - 08/14/2024 7:21 AM EDT This patient was seen by the advanced practice provider. I have personally performed a substantive portion of the encounter. I have seen and examined the patient; agree with the workup, evaluation, MDM, management and diagnosis. The care plan has been discussed. I personally saw the patient and made/approved the management plan and take responsibility for the patient management. History: 78-year-old female presents with concern for abdominal pain and vomiting. States has been present over the past 3 to 4 weeks. Pain is aching in nature. Previous ER visits diagnosed with gastritis. Denies any fever, chills, chest pain, shortness of breath, urinary symptoms. Exam: Patient appears well nontoxic. Tenderness in the upper abdomen. S1-S2 appreciated without murmur. Lungs are bilaterally. MDM: CT concerning for intussusception. Case discussed with radiologist at [facility] who does not feel this is intussusception at this time. Recommended CT with oral contrast. Again shows intussusception with concern for obstruction. NG tube was placed. Case again discussed with radiology who advises x-ray which will confirm obstruction. Patient had been evaluated by general surgery throughout. Patient be taken the operating room for further treatment and evaluation. Patient does have leukopenia which is secondary to her current chemotherapy. Case was discussed with oncology who advised stopping her specific medication. Stable at time of transfer the operating room. Diagnosis: 1. Intussusception 2. Intestinal obstruction [facility] Work Phone: [phone] 326-481905-23-2025 Emergency department Note* Jesusita Sim PA-C - 08/12/2024 12:00 PM EDTAssociated Order(s): ECG 12 Lead; Critical Care Patient is a 78-year-old female with a history of metastatic breast cancer, currently undergoing immunotherapy who presents to the emergency room with a chief complaint of epigastric abdominal pain and vomiting. She states that this has been ongoing for at least 3 to 4 weeks. She states that this morning she was unable to even keep down water. She states that she will get intermittent abdominal pain that comes and goes. She states that she can hear gurgling in her stomach. She has had 1 episodeof diarrhea but otherwise denies any diarrhea or constipation. She was seen at [facility] ER on July [address] scan. She states that she was told she had gastritis. She is on Prilosec, reports that she has been on Carafate which did not seem to help. She denies any fever or chills. No chest pain or shortness of breath. She was prescribed Zofran but states that it was not the ODT Zofran. Review of Systems Constitutional: Negative for chills and fever. HENT: Negative for ear pain and sore throat. Eyes: Negative for pain and visual disturbance. Respiratory: Negative for cough and shortness of breath. Cardiovascular: Negative for chest pain and palpitations. Gastrointestinal: Positive for abdominal pain, nausea and vomiting. Genitourinary: Negative for dysuria and hematuria. Musculoskeletal: Negative for arthralgias and back pain. Skin: Negative for color change and rash. Neurological: Negative for seizures and syncope. All other systems reviewed and are negative. Physical Exam Vitals and nursing note reviewed. Constitutional: General: She is not in acute distress. Appearance: She is well-developed. She is not ill-appearing. HENT: Head: Normocephalic and atraumatic. Eyes: Extraocular Movements: Extraocular movements intact. Conjunctiva/sclera: Conjunctivae normal. Pupils: Pupils are equal, round, and reactive to light. Cardiovascular: Rate and Rhythm: Normal rate and regular rhythm. Heart sounds: No murmur heard. Pulmonary: Effort: Pulmonary effort is normal. No respiratory distress. Breath sounds: Normal breath sounds. No stridor. No wheezing, rhonchi or rales. Chest: Chest wall: No tenderness. Abdominal: General: Bowel sounds are increased. Palpations: Abdomen is soft. There is no fluid wave, hepatomegaly, splenomegaly, mass or pulsatile mass. Tenderness: There is abdominal tenderness in the right upper quadrant, epigastric area and left upper quadrant. Negative signs include Lim's sign, Rovsing's sign, McBurney's sign and psoas sign. Hernia: No hernia is present. Musculoskeletal: General: No swelling. Cervical back: Neck supple. Skin: General: Skin is warm and dry. Capillary Refill: Capillary refill takes less than 2 seconds. Neurological: General: No focal deficit present. Mental Status: She is alert and oriented to person, place, and time. Psychiatric: Mood and Affect: Mood normal. Labs Reviewed CBC WITH AUTO DIFFERENTIAL - Abnormal Result Value WBC 1.4 (*) nRBC 0.0 RBC 3.01 (*) Hemoglobin 10.8 (*) Hematocrit 31.6 (*) MCV 105 (*) MCH 35.9 (*) MCHC 34.2 RDW 16.7 (*) Platelets 200 Neutrophils % 64.5 Immature Granulocytes %, Automated 0.7 Lymphocytes % 17.4 Monocytes % 14.5 Eosinophils % 0.7 Basophils % 2.2 Neutrophils Absolute 0.89 (*) Immature Granulocytes Absolute, Automated 0.01 Lymphocytes Absolute 0.24 (*) Monocytes Absolute 0.20 Eosinophils Absolute 0.01 Basophils Absolute 0.03 BASIC METABOLIC PANEL - Abnormal Glucose 112 (*) Sodium 140 Potassium 4.0 Chloride 104 Bicarbonate 29 Anion Gap 11 Urea Nitrogen 11 Creatinine 0.93 eGFR 64 Calcium 9.5 URINALYSIS WITH REFLEX CULTURE AND MICROSCOPIC - Abnormal Color, Urine Light-Yellow Appearance, Urine Clear Specific Drake, Urine 1.013 pH, Urine 6.5 Protein, Urine NEGATIVE Glucose, Urine Normal Blood, Urine NEGATIVE Ketones, Urine TRACE (*) Bilirubin, Urine NEGATIVE Urobilinogen, Urine Normal Nitrite, Urine NEGATIVE Leukocyte Esterase, Urine 250 Fadumo/uL (*) MICROSCOPIC ONLY, URINE - Abnormal WBC, Urine 11-20 (*) RBC, Urine 1-2 Mucus, Urine FEW Amorphous Crystals, Urine 1+ CBC - Abnormal WBC 1.2 (*) nRBC 0.0 RBC 2.71 (*) Hemoglobin 9.7 (*) Hematocrit 28.7 (*) MCV 106 (*) MCH 35.8 (*) MCHC 33.8 RDW 16.7 (*) Platelets 186 LIPASE - Normal Lipase 17 Narrative: Venipuncture immediately after or during the administration of Metamizole may lead to falsely low results. Testing should be performed immediately prior to Metamizole dosing. HEPATIC FUNCTION PANEL - Normal Albumin 4.0 Bilirubin, Total 0.7 Bilirubin, Direct 0.1 Alkaline Phosphatase 59 ALT 9 AST 17 Total Protein 6.7 LACTATE - Normal Lactate 0.9 Narrative: Venipuncture immediately after or during the administration of Metamizole may lead to falsely low results. Testing should be performed immediately prior to Metamizole dosing. TROPONIN I, HIGH SENSITIVITY - Normal Troponin I, High Sensitivity 7 Narrative: Less than 99th percentile of normal range cutoff- Female and children under 18 years old <14 ng/L; Male <21 ng/L: Negative Repeat testing should be performed if clinically indicated. Female and children under 18 years old 14-50 ng/L; Male 21-50 ng/L: Consistent with possible cardiac damage and possible increased clinical risk. Serial measurements may help to assess extent of myocardial damage. >50 ng/L: Consistent with cardiac damage, increased clinical risk and myocardial infarction. Serial measurements may help assess extent of myocardial damage. NOTE: Children less than 1 year old may have higher baseline troponin levels and results should be interpreted in conjunction with the overall clinical context. NOTE: Troponin I testing is performed using a different testing methodology at [facility] than at other system hospitals. Direct result comparisons should only be made within the same method. BASIC METABOLIC PANEL - Normal Glucose 94 Sodium 139 Potassium 3.6 Chloride 105 Bicarbonate 27 Anion Gap 11 Urea Nitrogen 9 Creatinine 0.81 eGFR 75 Calcium 8.9 LACTATE - Normal Lactate 0.5 Narrative: Venipuncture immediately after or during the administration of Metamizole may lead to falsely low results. Testing should be performed immediately prior to Metamizole dosing. MAGNESIUM - Normal Magnesium 1.83 URINE CULTURE URINALYSIS WITH REFLEX CULTURE AND MICROSCOPIC Narrative: The following orders were created for panel order Urinalysis with Reflex Culture and Microscopic. Procedure Abnormality Status --------- ------ Urinalysis with Reflex C...[[id number]] Abnormal Final result Extra Urine Doss Tube[[id number]] In process Please view results for these tests on the individual orders. EXTRA URINE DOSS TUBE XR abdomen 1 view Final Result 1. Persistently dilated small bowel loops with minimal interval increase concerning for obstruction. Question some enteric contrast in the distal transverse colon, however evaluation is limited as the contrast is very dilute. Consider CT of the abdomen and pelvis follow-up. MACRO: None Signed by: Aubrey Middleton 08/12/2024 9:07 PM Dictation workstation: [id number] XR chest abdomen for OG NG placement Final Result Enteric tube projects in the gastric fundus. MACRO: None Signed by: Aubrey Middleton 08/12/2024 7:32 PM Dictation workstation: [id number] XR abdomen 1 view Final Result 1. Orally administered contrast is very dilute and limits evaluation. Not definitively seen within the colon. There is again noted increasing distention of loops of small bowel now measuring up to 3.9 cm concerning for obstruction. MACRO: None Signed by: Aubrey Middleton 08/12/2024 6:30 PM Dictation workstation: [id number] CT abdomen pelvis wo IV contrast Final Result 1. Similar appearance of the fatty density and question of ileocolic intussusception. There may be a lipoma in this region acting as a lead point. There is progressed small-bowel dilatation and new ascites, concerning for progressive obstruction. Recommend surgical consultation. MACRO: None Signed by: Aubrey Middleton 08/12/2024 5:30 PM Dictation workstation: [id number] CT abdomen pelvis wo IV contrast Final Result 1. Possible intermittent short-segment ileocolic intussusception resulting in some stasis veins and fecalization of distal ileal contents and moderate dilation of the distal ileal bowel loops. Of note, proximal bowel loops are normal in caliber the stomach is not distended. 2. Multifocal sclerotic lesions in several of the bony structures as detailed above. Blastic metastatic lesions are consideration. 3. There is a small amount of perihepatic peritoneal fluid. 4. There is a moderate size hiatus hernia. 5. There is a small fat containing right inguinal hernia. 6. Possible areas of ecchymosis along the flanks bilaterally posterolateral and superior to the superior aspect of the gluteus musculature. MACRO: None Signed by: Bari Campa 08/12/2024 1:27 PM Dictation workstation: [id number] ECG 12 Lead Performed by: Jesusita Sim PA-C Authorized by: Jesusita Sim PA-C ECG interpreted by ED Physician in the absence of a sock lining examiner: yes Comments: EKG shows sinus rhythm with first-degree AV block. At rate of 67 bpm. MI interval is 214 ms and QRSduration is 94 ms. EKG interpretation per myself, Jesusita Sim Critical Care Performed by: Jesusita Sim PA-C Authorized by: Jesusita Sim PA-C Critical care provider statement: Critical care was necessary to treat or prevent imminent or life-threatening deterioration of the following conditions: Intussception. Critical care was time spent personally by me on the following activities: Ordering and performing treatments and interventions, ordering and review of laboratory studies, ordering and review of radiographic studies, re-evaluation of patient's condition, examination of patient, evaluation of patient's response to treatment and discussions with consultants Care discussed with: admitting provider Medical Decision Making Patient is a 78-year-old female who presents with intermittent abdominal pain for the past 20. She states that her pain comes and goes, at times significant. Neurologist asked her to get CT scan abdomen pelvis without IV contrast shows a possible intermittent shortness of breath, chronic intussusception resulting in some stasis wounds and fecalization of the distal abdominal contents and moderatedilation of the distal ileal bowel. Given this finding, CT scan was discussed with surgeon on-call,Dr. Yelena Garcia. She recommended a small bowel follow-through. I discussed this with radiologist, Dr. Johnson. He reviewed the CT images and does not feel that patient has an intussusception. We discussed imaging options given that the reading radiologist was concerned for an intussusception. Itwas decided that patient would have a CT scan of the abdomen pelvis repeated but with oral contrast. CT scan of the abdomen pelvis with oral contrast shows a similar appearance of a question of an ileocolic intussusception possibly with a lipoma acting as a lead point and there is progression of small bowel dilatation and new ascites concerning for progressive obstruction. I consulted once again with surgeon on- call, Dr. Garcia. She requested that I speak with the radiologist to see if an airor barium reduction is something that could potentially be performed on this. I spoke with radiologist, Dr. Aubrey Middleton who stated that this is not typically done in adults and also given the obstruction this was something that he did not feel patient was a candidate for. He did recommend having a KUB performed to see if the oral contrast that the patient had drink for CT scan had progressed. KUB shows the orally administered contrast is dilute and limits evaluation but no contrast is definitely seen within the colon and bowel loops are distended concerning for obstruction. NG tube was placed per recommendation of surgeon. Dr. Garcia later requested another KUB to see if progression of contrast had occurred. Dr. Garcia also requested that I speak with oncology given the patient's wbc. I spoke with the oncologist on-call for the patient's oncologist, Dr. Thomas. He recommended that the patient's Ibrance be held. He is not concerned about the patient's wbc at this time, states that it is typical forthe patient. He states that neulasta can be considered at an ANC of <1 or <0.5 but did not feel that it needed to be given at this time and recommended reconsultation at that time. Patient re-evaluated by Dr. Garcia and patient will be taken to the OR Amount and/or Complexity of Data Reviewed Labs: ordered. Decision-making details documented in ED Course. Radiology: ordered. Decision-making details documented in ED Course. Risk Decision regarding hospitalization. Diagnoses as of 08/12/24 2242 Intussusception (Multi) Upper abdominal pain Intussusception, ileocecal (Multi) Intestinal obstruction, unspecified cause, unspecified whether partial or complete (Multi) Jesusita Sim PA-C 08/12/24 2246 Cosigned by Kashif Zimmer DO at 08/14/2024 7:21 AM EDT Associated attestation - Kashif Zimmer DO - 08/14/2024 7:21 AM EDT This patient was seen by the advanced practice provider. I have personally performed a substantive portion of the encounter. I have seen and examined the patient; agree with the workup, evaluation, MDM, management and diagnosis. The care plan has been discussed. I personally saw the patient and made/approved the management plan and take responsibility for the patient management. History: 78-year-old female presents with concern for abdominal pain and vomiting. States has been present over the past 3 to 4 weeks. Pain is aching in nature. Previous ER visits diagnosed with gastritis. Denies any fever, chills, chest pain, shortness of breath, urinary symptoms. Exam: Patient appears well nontoxic. Tenderness in the upper abdomen. S1-S2 appreciated without murmur. Lungs are bilaterally. MDM: CT concerning for intussusception. Case discussed with radiologist at [facility] who does not feel this is intussusception at this time. Recommended CT with oral contrast. Again shows intussusception with concern for obstruction. NG tube was placed. Case again discussed with radiology who advises x-ray which will confirm obstruction. Patient had been evaluated by general surgery throughout. Patient be taken the operating room for further treatment and evaluation. Patient does have leukopenia which is secondary to her current chemotherapy. Case was discussed with oncology who advised stopping her specific medication. Stable at time of transfer the operating room. Diagnosis: 1. Intussusception 2. Intestinal obstruction [facility] Work Phone: [phone]) 332-776605-08-2025 Telephone encounter Note* Telephone Encounter - Mesha Yun - 07/28/2024 9:28 AM EDT Okay. I will swap orders once he signs. I will cancel orders with contrast so they are not used in the future. Thank you. [facility] Work Phone: 1([phone]) 406-358705-08-2025 Miscellaneous Notes* Telephone Encounter - Mesha Yun - 07/28/2024 9:28 AM EDT Okay. I will swap orders once he signs. I will cancel orders with contrast so they are not used in the future. Thank you. * Telephone Encounter - Maryam Gerber LPN - 07/28/2024 9:22 AM EDT I pended orders yesterday for Dr. Hardy. The orders from March can't be used because they are with contrast and the patient is allergic. Maryam Gerber LPN * Telephone Encounter - Mesha Yun - 07/28/2024 9:21 AM EDT Scheduled with patient. Used CT orders from March. * Telephone Encounter - Maryam Gerber LPN - 07/27/2024 4:10 PM EDT Will need CT's at the end of August and then an OV several days later with Dr. Alvarez. I will pend the CT orders in a separate encounter. Maryam Gerber LPN * Telephone Encounter - Mesha Yun - 07/27/2024 3:58 PM EDT No AVS from last office visit in May. Please advise when next office visit should be. [facility] Telephone encounter Note * Telephone Encounter - Maryam Gerber LPN - 07/28/2024 9:22 AM EDT I pended orders yesterday for Dr. Hardy. The orders from March can't be used because they are with contrast and the patient is allergic. Maryam Gerber LPN [facility]05-08-2025 Telephone encounter Note* Telephone Encounter - Mesha Yun - 07/28/2024 9:21 AM EDT Scheduled with patient. Used CT orders from March. [facility]05-07-2025 NoteHNO ID: [id number] Author: MARYAM GERBER LPN Service: ? Author Type: LICENSED NURSE Type: Progress Notes Filed: 07/27/2024 16:20 Note Text: CT's WO contrast- allergy to iodine.[facility] History of Present illness Narrative* Maryam Gerber LPN - 07/27/2024 4:[address] WO contrast- allergy to iodine. [facility] in [facility] encounter[facility]25 Telephone encounter Note * Telephone Encounter - Maryam Gerber LPN - 07/27/2024 4:10 PM EDT Will need CT's at the end of August and then an OV several days later with Dr. Alvarez. I will pend the CT orders in a separate encounter. Maryam Gerber LPN [facility]05-07-2025 Telephone encounter Note* Telephone Encounter - Mesha Yun - 07/27/2024 3:58 PM EDT No AVS from last office visit in May. Please advise when next office visit should be. [facility]04-23-2025 [facility]Bl[facility] Note [facility]03-26-2025 History of Present illness Narrative* Suzette Rodriguez LPN - 06/15/2024 2:30 PM EDT Patient here for injection of Faslodex given IM, one injection of 250 mg in each buttocks. Patient tolerated well. For all other information regarding today, see today's OV note with Dr Alvarez. 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 Initial FISH for HER-2 was equivocal, repeat should showed sample to be nonamplified. Patient had decided not to proceed with chemotherapy at that time and an Oncotype DX was not performed. Patient presented with several month history of epigastric right upper quadrant pain along with shortness of breath in December 2018. Evaluation showed a right pleural effusion, but ultrasound of the gallbladder showed no evidence of cholecystitis. She had multiple thoracentesis from November and most recently in 2 weeks. 900 cc of malignant fluid removed and cytology was positive for malignant cells consistent with metastatic carcinoma with breast primary. Estrogen and progesterone receptor were both positive, HER-2/roderick negative mamoglobin was positive focally per Dr Hayes's notes. Pleurodesis right lung 2019 Completed radiation therapy on 07/16/2007 Started AI therapy July 2007. Changed to tamoxifen March 2008 secondary to myalgia or arthralgia. 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 Bone mets suggested on PET scan. ER/MI+ Her2-per notes, report not readily available. PIK3Ca positive on Guardant Current treatment: Fulvestrant and Ibrance Zoledronic acid IV every 3 months. RT to right iliac wing February 2024 Here for follow up, feeling well. We reviewed labs, CT scans, also images.CA 27.29 up last time. 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 Overall remains fairly stable other than slow growth of right iliac lesion. This is now post RT RECOMMENDATION/PLAN: 1. Continue as above, labs as ordered. Plan to continue to follow CA 27-29. Otherwise plan to continue fulvestrant and ibrance 2. . Update scans in August 2024 Written and verbal health teaching given to patient, patient verbalizes understanding and agrees with treatment plan. PAST MEDICAL HISTORY Diagnosis Date Bone metastases 02/15/2019 Esophageal reflux Malignant neoplasm of upper-outer quadrant of right breast in female, estrogen receptor positive (HCC) 01/13/2019 Malignant neoplasm of upper-outer quadrant of right breast in female, estrogen receptor positive (HCC) 01/13/2019 Paroxysmal supraventricular tachycardia (HCC) Seborrhea Unspecified sleep apnea PAST SURGICAL HISTORY Procedure Laterality Date BREAST RECONSTRUCTION 2011 right BX BREAST PERC VACUUM/ROTN 04/18/2013 left - benign BX/EXC LYMPH NODE OPEN DEEP AXILLARY NODE 04/20/2007 Negative HERNIA REPAIR HX 08/18/2016 HYSTERECTOMY HX 10/2009 MASTECTOMY, PARTIAL 03/04/2007 Right upper outer quadrant PAST SURGICAL HISTORY OF 2006 left wrist fx ORIF PAST SURGICAL HISTORY OF 1997 left wrist FX - ex-fix PAST SURGICAL HISTORY OF tubal ligation REMV CATARACT EXTRACAP,INSERT LENS Left 03/20/2022 SN60WF +15.5 D REMV CATARACT EXTRACAP,INSERT LENS Right 03/25/2022 FAMILY HISTORY Problem Relation Age of Onset No Ocular Disease Father Alcohol/Drug Father Blood Disease Father No Ocular Disease Mother COPD Mother Prostate Cancer Brother Coronary Artery Disease Maternal Grandmother Breast Cancer Paternal Grandmother Social History Tobacco Use Smoking status: Former Current packs/day: 0.00 Types: Cigarettes Quit date: 03/18/1979 Years since quittin.2 Smokeless tobacco: Never Tobacco comments: Pt smoked 1 cigarette daily on & off x 10 years. Vaping Use Vaping status: Never Used Substance Use Topics Alcohol use: Yes Comment: occ Drug use: No ALLERGIES: ALLERGIES Allergen Reactions Contrast Dye [Iodin* Rash Sulfa (Sulfonamide * Rash, Hives, Unknown CURRENT OUTPATIENT MEDICATIONS: palbociclib (IBRANCE) 125 mg tablet^Take 1 tablet (125mg) by mouth once daily for 3 weeks on, followed by 1 week off. Take with or without food^Disp: 21 tablet^Rfl: 2 propylene glycol (SYSTANE BALANCE OPHTHALMIC)^Use 1 Drop in eyes three times a day.^Disp: ^Rfl: multivitamin with minerals (HAIR,SKIN AND NAILS) tablet^Take 1 tablet by mouth once daily.^Disp: ^Rfl: melatonin 3 mg tablet^Take 6 mg by mouth at bedtime as needed.^Disp: ^Rfl: elderberry fruit (ELDERBERRY ORAL)^Take 1 tablet by mouth once daily.^Disp: ^Rfl: naproxen sodium (ANAPROX) 220 mg tablet^Take 440 mg by mouth as needed.^Disp: ^Rfl: calcium carb/vitamin D3/vit K1 (SOFT CHEWS CALCIUM ORAL)^Take 2 Each by mouth once daily.^Disp: ^Rfl: senna (SENOKOT) 8.6 mg tab^Take 2 tablets by mouth once daily as needed.^Disp: 30 tablet^Rfl: 0 MULTIVITAMIN ORAL^Take 1 tablet by mouth once daily. ^Disp: ^Rfl: VENLAFAXINE XR 37.5 mg 24 hr capsule^Take 37.5 mg by mouth once daily.^Disp: ^Rfl: carvedilol (COREG) 12.5 mg tablet^Take 12.5 mg by mouth twice daily with meals. Take with food.^Disp: ^Rfl: 0 PRILOSEC 20 MG CAP^Take 20 mg by mouth once daily.^Disp: ^Rfl: 0 Chlorhexidine Gluconate (PERIDEX) 0.12 % solution^Use 15 mL as instructed two times a day. Rinse around mouth for 30 seconds then expectorate^Disp: 473 mL^Rfl: 0 diphenhydrAMINE (BENADRYL) 50 mg capsule^Take 1 capsule by mouth as directed for 1 dose. one (1) hour prior to exam.^Disp: 1 capsule^Rfl: 0 (Patient not taking: Reported on 06/15/2024) triamcinolone acetonide (KENALOG) 0.1 % cream^Apply to affected area twice daily. APPLY TO AFFECTEDAREA^Disp: ^Rfl: (Patient not taking: Reported on 02/12/2024) fluorometholone (FML LIQUID FILM) 0.1 % ophthalmic suspension^Use 1 Drop in the right eye three times daily.^Disp: 10 mL^Rfl: 2 (Patient not taking: Reported on 07/30/2022) cyanocobalamin, vitamin B-12, 5,000 mcg cap^Take by mouth once daily.^Disp: ^Rfl: (Patient not taking: No sig reported) REVIEW OF SYSTEMS: GENERAL: No fever, night sweats, weight loss or malaise. All other reviewed and negative other than HPI. PHYSICAL EXAMINATION: VITAL SIGNS: BP 123/57 Pulse 62 Temp (Src) 97 (Temporal) Wt 193 lb 8 oz (87.8kg) SpO2 95% GENERAL APPEARANCE: Well appearing, in no acute distress, alert and oriented x3, well-hydrated, well nourished. I spent a total of 30 minutes reviewing separately obtained history, performing a medically appropriate examination, counseling and educating the patient/family/caregiver, ordering medications, tests, or procedures, independently interpreting results (not separately reported), and communicating results to the patient/family/caregiver. Electronically Signed: Damaso Alvarez MD June 15, 2024 documented in this encounterU[facility] Center02-26-2025 Miscellaneous Notes* Telephone Encounter - Sis Tripp RN - 05/18/2024 2:15 PM EST Prescription Refill Information The patient has been identified by name and date of : Yes Caregiver verified no other encounters exist for this prescription request: Yes Caregiver confirmed with patient/requestor that no other refills are due, in the near future, with this provider at this time: Yes Chlorhexidine Gluconate 0.12% solution Requested Prescriptions No prescriptions requested or ordered in this encounter Sis Tripp RN May 18, 2024 2:15 PM documented in this encounterUc Medical Center02-26-2025 Telephone encounter Note * Telephone Encounter - Sis Tripp RN - 05/18/2024 2:15 PM EST Prescription Refill Information The patient has been identified by name and date of : Yes Caregiver verified no other encounters exist for this prescription request: Yes Caregiver confirmed with patient/requestor that no other refills are due, in the near future, with this provider at this time: Yes Chlorhexidine Gluconate 0.12% solution Requested Prescriptions No prescriptions requested or ordered in this encounter Sis Tripp RN May 18, 2024 2:15 PM [facility]02-19-[facility] History of Present illness Narrative* Diya Wilcox RT(R) - 05/11/2024 1:00 PM EST Radiology Service Progress Note PATIENT NAME: Marina Moraes DATE OF SERVICE: May 11, 2024 TIME: 2:04 PM PATIENT IDENTITY VERIFICATION COMPLETED USING TWO (2) IDENTIFIERS: Name and Date of confirmedby patient verbally. FALL SCREENING: Has the patient had 2 falls in the last year or 1 fall with injury or currently using an Ambulatory Assistive Device (Walker, Cane, Wheelchair, Crutches, etc.)? No PATIENT GENDER DATA: Assigned female at . status: : No status:NO. PATIENT RELEVANT IMPLANT DATA REVIEWED: Yes PATIENT PRESENTS WITH AN IMPLANTABLE OR ATTACHED LEAD RETAIL SALES ASSOCIATE: No RADIOLOGY DEPARTMENT: CT; Exam(s) Completed: Chest Abdomen Pelvis PERIPHERAL IV DATA: Not applicable SIGNED BY: RT Kesha(R) May 11, 2024 2:04 PM documented in this encounterUc Medical Center02-19-2025 NoteBl[facility]02-13-2025 Telephone encounter Note* Telephone Encounter - Dacia Espinoza LISW - 05/05/2024 4:08 PM EST SOCIAL WORK FOLLOW UP NOTE: [facility] Date of service: May 05, 2024 Marina Moraes is being seen for a follow up social work visit. Today's visit includes: patient TOPICS ADDRESSED: Spoke with pt this date and discussed Ibrance renewal. Pt reports she spoke with [employer] and completed final steps they were asking for to complete. Will check with [employer] and pt on Thursday when SW back in office. PLAN: Continue follow up as needed F/U APPOINTMENT: PRN Assigned SW listed in Care Team tab: Yes JOSE Lomeli [facility]02-13-2025 Miscellaneous Notes* Telephone Encounter - Dacia Espinoza LISW - 05/05/2024 4:08 PM EST SOCIAL WORK FOLLOW UP NOTE: [facility] Date of service: May 05, 2024 Marina Moraes is being seen for a follow up social work visit. Today's visit includes: patient TOPICS ADDRESSED: Spoke with pt this date and discussed Ibrance renewal. Pt reports she spoke with [employer] and completed final steps they were asking for to complete. Will check with [employer] and pt on Thursday when SW back in office. PLAN: Continue follow up as needed F/U APPOINTMENT: PRN Assigned SW listed in Care Team tab: Yes JOSE Lomeli documented in this encounterUc Medical Center02-05-2025 Telephone encounter Note * Telephone Encounter - Petrona Mann - 04/27/2024 3:35 PM EST This has been completed as directed. Petrona Mann [facility]02-05-2025 Miscellaneous Notes* Telephone Encounter - Petrona Mann - 04/27/2024 3:35 PM EST This has been completed as directed. Petrona Mann * Telephone Encounter - Suzette Rodriguez LPN - 04/27/2024 2:49 PM EST Ilda from CT calls stating pt gets hives from CT dye and that the orders placed say CT with. Looking at the orders that were placed by Dr Alvarez in a phone note on 04/20, those CT orders were without contrast. Can someone please link the CT C/A/P without contrast to the apt for 05/02/24. Thanks * Telephone Encounter - Petrona Mann - 04/21/2024 3:25 PM EST This has been scheduled 05/02. Petrona Mann * Telephone Encounter - Carito La, TAMIE - 04/21/2024 2:[address] Alvarez filed order for CT C/A/P. Please call patient to schedule beginning of May, prior to OV with him 06/15/24. Aicha La, RN * Telephone Encounter - Suzette Rodriguez LPN - 04/20/2024 2:23 PM EST Patient here for Faslodex today. She states she had her 5 rounds of radiation, had a f/u with Dr Florez and wondered if she needed any follow up scans prior to her apt with you in May. Suzette Rodriguez LPN documented in this encounterUc Medical Center02-05-2025 Telephone encounter Note * Telephone Encounter - Suzette Rodriguez LPN - 04/27/2024 2:49 PM EST Ilda from CT calls stating pt gets hives from CT dye and that the orders placed say CT with. Looking at the orders that were placed by Dr Alvarez in a phone note on 04/20, those CT orders were without contrast. Can someone please link the CT C/A/P without contrast to the apt for 05/02/24. Thanks [facility] Telephone encounter Note* Telephone Encounter - Petrona Mann - 04/21/2024 3:25 PM EST This has been scheduled 05/02. Petrona Mann [facility]01-30-[facility] Telephone encounter Note* Telephone Encounter - Carito La RN - 04/21/2024 2:[address] Alvarez filed order for CT C/A/P. Please call patient to schedule beginning of May, prior to OV with him 06/15/24. Aicha La, RN [facility]01-29-[facility] Telephone encounter Note* Telephone Encounter - Suzette Rodriguez LPN - 04/20/2024 2:23 PM EST Patient here for Faslodex today. She states she had her 5 rounds of radiation, had a f/u with Dr Florez and wondered if she needed any follow up scans prior to her apt with you in May. Suzette Rodriguez LPN [facility]01-29-2025 NoteBl[facility]01-29-2025 History of Present illness Narrative* Suzette Rodriguez LPN - 04/20/2024 2:12 PM EST Patient here for injection of Faslodex given IM, one injection of 250 mg in each buttocks. Patient tolerated well. Suzette Rodriguez LPN documented in this encounterUc Medical Center01-03-2025 NoteBl[facility]ard Valley [facility]01-03-2025 History of Present illness Narrative* Luciana Florez MD - 03/25/2024 1:15 PM EST AMBULATORY TELEPHONE VISIT Marina Moraes has consented to this telephone encounter. Persons Present: patient Chief Complaint/Reason: Four week follow-up after radiation treatment. HPI: Metastatic breast cancer with progressive bone metastasis in the right iliac bone and pain s/ppalliative radiation treatment finished on 02/26/24. She is doing well without any specific new complaints. She denies any pain in the right pelvis. Shereports that she has mild hyperpigmentation in the right pelvic area. She denies any diarrhea now. Data Reviewed: None. Assessment: Clinically stable. Plan: She is on Faslodex and is regularly followed with Dr. Alvarez. I will see her as needed. Total Time Spent: 5 minutes Luciana Florez MD documented in this encounterUc Medical Center12-31-2024 NoteBlanchard Valley [facility]12-31-2024 History of Present illness Narrative* Suzette Rodriguez LPN - 03/22/2024 1:39 PM EST Patient here for injection of Faslodex given IM, one injection of 250 mg in each buttocks. Patient tolerated well. Suzette Rodriguez LPN documented in this encounterUc Medical Center12-13-2024 Telephone encounter Note * Telephone Encounter - Aimee Henry RN - 03/04/2024 10:26 AM EST Pt finished radiation to right iliac bone 02/26/24 Yesterday she had one episode of very explosive diarrhea. She took imodium and no more episodes since. She states she did not eat all day or today but has had a water. Just no appetite and the thought of eating does not sound good. No vomiting. Since the episode of diarrhea she has developed pain and irritation in perineal area. No bleeding noted in stool or urine. States severe pain with urination because of external irritation. Slight brownish-green vaginal discharge noted.Putting Aquaphor on it which helps some. Rates pain as a 9 at its worse which is when she urinates or as area gets tumbler drier operator after Aquaphor wears off. She had not tried to look at area to see if irritated. Slight stuffing nose and cough but states that is not too unusually for her. No other complaints. Dr Florez notified and states this would not be from the radiation in this area and that she should contact her PCP and get their advise on situation, possibly a UTI from the diarrhea. Explained this topt and she states understanding. [facility] Miscellaneous Notes* Telephone Encounter - Aimee Henry RN - 03/04/2024 10:26 AM EST Pt finished radiation to right iliac bone 02/26/24 Yesterday she had one episode of very explosive diarrhea. She took imodium and no more episodes since. She states she did not eat all day or today but has had a water. Just no appetite and the thought of eating does not sound good. No vomiting. Since the episode of diarrhea she has developed pain and irritation in perineal area. No bleeding noted in stool or urine. States severe pain with urination because of external irritation. Slight brownish-green vaginal discharge noted.Putting Aquaphor on it which helps some. Rates pain as a 9 at its worse which is when she urinates or as area gets tumbler drier operator after Aquaphor wears off. She had not tried to look at area to see if irritated. Slight stuffing nose and cough but states that is not too unusually for her. No other complaints. Dr Florez notified and states this would not be from the radiation in this area and that she should contact her PCP and get their advise on situation, possibly a UTI from the diarrhea. Explained this topt and she states understanding. documented in this encounterUc Medical Center12-06-2024 Nurse Note* Cheli Chung RN - 02/26/2024 11:40 AM EST AMBULATORY PATIENT EDUCATION NOTE TOPIC: SURVIVAL SKILLS: Symptom Management READINESS TO LEARN COGNITIVE ABILITY: Alert and oriented MOTIVATION TO LEARN: Eager Interested FAMILY SUPPORT: Unable to assess - Family not present INSTRUCTION PROVIDED TO: Patient PATIENT LEARNS BEST BY: Multiple Methods FACTORS AFFECTING LEARNING: None PHYSICAL LIMITATIONS AFFECTING LEARNING: None LEARNING RESPONSE DIAGNOSIS: 174.4 METHOD OF INSTRUCTION: Teach Back skin care Individual instruction Written instruction/Handouts Verbal instruction PATIENT / FAMILY RESPONSE: Verbalizes understanding of: SYMPTOM MANAGEMENT- Correct actions to take to manage symptoms associated with his/her disease/illness FOLLOW-UP PLAN: Patient instructed to call with any further issues Reinforce - Repeat previous content Contact information given. SUPPLEMENTAL MATERIAL: D/C sheet REFERRAL (RECOMMENDATION): None Written discharge instructions given and reviewed with patient. Patient verbalizes understanding. Encouraged to call with any questions or concerns. Instruction for 4 week phone follow up appointmentgiven by Dr. Florez. Electronically Signed By: Cheli Chung RN In Department: RADIATION ONCOLOGY Time spent on patient education: 05 minutes. [facility] Note* Cheli Chung RN - 02/26/2024 11:40 AM EST AMBULATORY PATIENT EDUCATION NOTE TOPIC: SURVIVAL SKILLS: Symptom Management READINESS TO LEARN COGNITIVE ABILITY: Alert and oriented MOTIVATION TO LEARN: Eager Interested FAMILY SUPPORT: Unable to assess - Family not present INSTRUCTION PROVIDED TO: Patient PATIENT LEARNS BEST BY: Multiple Methods FACTORS AFFECTING LEARNING: None PHYSICAL LIMITATIONS AFFECTING LEARNING: None LEARNING RESPONSE DIAGNOSIS: 174.4 METHOD OF INSTRUCTION: Teach Back skin care Individual instruction Written instruction/Handouts Verbal instruction PATIENT / FAMILY RESPONSE: Verbalizes understanding of: SYMPTOM MANAGEMENT- Correct actions to take to manage symptoms associated with his/her disease/illness FOLLOW-UP PLAN: Patient instructed to call with any further issues Reinforce - Repeat previous content Contact information given. SUPPLEMENTAL MATERIAL: D/C sheet REFERRAL (RECOMMENDATION): None Written discharge instructions given and reviewed with patient. Patient verbalizes understanding. Encouraged to call with any questions or concerns. Instruction for 4 week phone follow up appointmentgiven by Dr. Florez. Electronically Signed By: Cheli Chung RN In Department: RADIATION ONCOLOGY Time spent on patient education: 05 minutes. documented in this encounterUc Medical Center12-06-2024 NoteBl[facility]ard Valley [facility]12-03-2024 Nurse Note* Renetta Shipman RN - 02/23/2024 3:17 PM EST Radiation Therapy - Nursing Note (OTV) PATIENT NAME: Marina Moraes PATIENT February 23, 2024 [facility] FACILITY/LOCATION: [place] NURSING NOTE TYPE: MAGNETIC TESTING TECHNICIAN - FEMALE PELVIS Subjective Data Follow up for Rt. Iliac bone radiation Additional Data Do you want to see a Ct Scan Special Procedures Technologist? No Status: Post-menopausal. Stress Scale: On a scale of 0 to 10, what number best describes how much distress you have experienced in the past week?(0 being no distress and 10 being extreme distress) 4 Social work notified: yes, already working with [facility] Assessment Fatigue: increased fatigue over baseline but not altering normal activities Appetite: excellent Nutritional Intake: Regular oral intake. Weight Gain/Loss: Not applicable Ambulatory weight history: Last 6 Encounter Wt Readings: Date: Wt: 02/23/2024 92.5 kg (204 lb) 02/12/2024 93 kg (205 lb) 01/27/2024 91.6 kg (202 lb) 12/30/2023 92.5 kg (204 lb) 11/04/2023 92.5 kg (204 lb) 10/07/2023 93 kg (205 lb) Nausea: Sometimes after I eat Vomiting: None Bowel Function: constipation 0 - bowel movement every day Erythema/Hyperpigmentation:none Desquamation:none Rash:none Skin Care: None Skin Sensation: Within Normal Limits Focused Assessment MAGNETIC TESTING TECHNICIAN - FEMALE PELVIS: Rectal bleeding: No. Rectal pain: No. Urinary frequency (D/N): 0/0. Vaginal bleeding: No. SIGNED by: Renetta Shipman RN [facility]12-[facility] Nurse Note* Renetta Shipman RN - 02/23/2024 3:17 PM EST Radiation Therapy - Nursing Note (OTV) PATIENT NAME: Marina Moraes PATIENT February 23, 2024 [facility] FACILITY/LOCATION: [facility] NOTE TYPE: MAGNETIC TESTING TECHNICIAN - FEMALE PELVIS Subjective Data Follow up for Rt. Iliac bone radiation Additional Data Do you want to see a Ct Scan Special Procedures Technologist? No Status: Post-menopausal. Stress Scale: On a scale of 0 to 10, what number best describes how much distress you have experienced in the past week?(0 being no distress and 10 being extreme distress) 4 Social work notified: yes, already working with [facility] Assessment Fatigue: increased fatigue over baseline but not altering normal activities Appetite: excellent Nutritional Intake: Regular oral intake. Weight Gain/Loss: Not applicable Ambulatory weight history: Last 6 Encounter Wt Readings: Date: Wt: 02/23/2024 92.5 kg (204 lb) 02/12/2024 93 kg (205 lb) 01/27/2024 91.6 kg (202 lb) 12/30/2023 92.5 kg (204 lb) 11/04/2023 92.5 kg (204 lb) 10/07/2023 93 kg (205 lb) Nausea: Sometimes after I eat Vomiting: None Bowel Function: constipation 0 - bowel movement every day Erythema/Hyperpigmentation:none Desquamation:none Rash:none Skin Care: None Skin Sensation: Within Normal Limits Focused Assessment MAGNETIC TESTING TECHNICIAN - FEMALE PELVIS: Rectal bleeding: No. Rectal pain: No. Urinary frequency (D/N): 0/0. Vaginal bleeding: No. SIGNED by: Renetta Shipman RN documented in this encounterUc Medical Center12-03-2024 NoteBlanchard Valley [facility]12-03-2024 History of Present illness Narrative* Luciana Florez MD - 02/23/2024 3:14 PM EST Radiation Oncology - On Treatment Review (OTR) Note PATIENT NAME: Marina PIERRE DIAGNOSIS: Metastatic breast cancer with progressive bone metastasis in the right iliac bone and pain. COURSE: palliative AREA TREATED: Right iliac bone CURRENT DOSE: 800 cGy in 2 fx PLANNED DOSE: 2000 cGy in 5 fx Status: Post-menopausal SUBJECTIVE: She is doing well without any specific new complaints. EXAM: KPS: 90 General Appearance: Alert and oriented. No acute distress. IMAGING/LAB RESULTS: None Treatment chart checked: Yes Patient treatment site reviewed and verified:Yes Port films reviewed and current:Yes Medications started: None ASSESSMENT/PLAN: Clinically stable. No signs of toxicity. Continue radiation treatment as planned. Luciana Florez MD documented in this encounterUc Medical Center11-26-2024 Nurse Note* Renetta Shipman RN - 02/16/2024 9:07 AM EST Radiation Therapy - Patient Education Note PATIENT NAME: Marina Moraes PATIENT February 16, 2024 [facility] FACILITY/LOCATION: [place] READINESS TO LEARN Cognitive Ability: Alert and oriented Motivation to learn: Eager Interested Family Support: Unable to assess - Family not present Instruction provide to: Patient Patient learns best by: Individual Instruction Written Instruction - Hand-outs Verbal Instruction Demonstration Factors effecting learning: None Physical limitations effecting learning: None LEARNING RESPONSE Diagnosis: Pt simulated today for radiation therapy to Rt iliac bone. Education Topic/Teaching Points: Radiation therapy, Side effects, and OTV: Method of instruction: Teach Back verbal Individual instruction Written instruction/Handouts Verbal instruction Patient /Family response: Patient verbalized understanding of radiation treatments, side effects, OTV, and transportation. Follow-up plan: Complete - No need for follow-up Supplemental material: Informational handouts on Fatigue and Skin changes. Referral (recommendation): Social Work- Already working with [facility] Patient has an Onbody or Implanted device: Yes, person notified was: Radiation Tech's; pt. Has bilateral knees hardware & lt. Wrist pins and screws Signed by: Renetta Shipman RN [facility]11-26-[facility] Nurse Note* Renetta Shipman RN - 02/16/2024 9:07 AM EST Radiation Therapy - Patient Education Note PATIENT NAME: Marina Moraes PATIENT February 16, 2024 [facility] FACILITY/LOCATION: [place] READINESS TO LEARN Cognitive Ability: Alert and oriented Motivation to learn: Eager Interested Family Support: Unable to assess - Family not present Instruction provide to: Patient Patient learns best by: Individual Instruction Written Instruction - Hand-outs Verbal Instruction Demonstration Factors effecting learning: None Physical limitations effecting learning: None LEARNING RESPONSE Diagnosis: Pt simulated today for radiation therapy to Rt iliac bone. Education Topic/Teaching Points: Radiation therapy, Side effects, and OTV: Method of instruction: Teach Back verbal Individual instruction Written instruction/Handouts Verbal instruction Patient /Family response: Patient verbalized understanding of radiation treatments, side effects, OTV, and transportation. Follow-up plan: Complete - No need for follow-up Supplemental material: Informational handouts on Fatigue and Skin changes. Referral (recommendation): Social Work- Already working with [employer] Patient has an Onbody or Implanted device: Yes, person notified was: Radiation Tech's; pt. Has bilateral knees hardware & lt. Wrist pins and screws Signed by: Renetta Shipman RN documented in this encounterUc Medical Center11-26-2024 History of Present illness Narrative* Luciana Florez MD - 02/16/2024 12:00 AM EST MARINA MORAES [id number] 02/16/2024 [facility] Department of Radiation Oncology Treatment Planning Note For reasons stated in the consult note, Marina Moraes is a candidate for radiation therapy. Based on review and interpretation of the relevant diagnostic studies together with the exam findings, Marina Moraes was simulated on 02/16/2024 at which time the target volume and/or requisite stark were delineated, as indicated in the simulation note, to be treated according to the prescription. After reviewing the treatment plan with dosimetry, the plan was approved to deliver the prescribed course of radiation to the target area to allow for the best isodose distribution, treating to the 99% isodose line with 15MV and 4 stark. Custom MLC wedges asym jaws were the treatment device(s) used to shape/modify the beams. A completed summary of this plan dated 02/16/2024 incorporated herein by reference includes dose, beam arrangements, energy, blocking, isodose distribution, and/or ports and DVH. Electronically Signed Luciana Florez M.D. :18 PM documented in this encounterUc Medical Center11-26-2024 History of Present illness Narrative* Luciana Florez MD - 02/16/2024 12:00 AM EST MARINA MORAES [id number] 02/16/2024 [facility] Department of Radiation Oncology [facility] RADIATION ONCOLOGY SIMULATION NOTE DATE OF SIMULATION: 02/16/2024 MACHINE: Siemens Definition CT Simulator Diagnosis: Metastatic breast cancer with progressive bone metastasis in the right iliac bone and pain. AREA:Rt iliac bone PATIENT POSITION: Supine. CONTRAST: None PROTOCOL: None BLOCKING: Custom blocking to be determined at treatment planning. FIXATION DEVICE: In order to achieve accurate and reproducible treatments, the patient is to be immobilized with vac bag. PROCEDURE: A time-out was conducted and recorded by the therapist. Patient was simulated on the CT scanner for external beam radiation therapy. Treatment site was marked by the simulation therapist. ASSESSMENT/PLAN: Patient tolerated simulation procedure well. Treatments will be initiated after treatment planning. The patient is scheduled for a verification simulation on the treatment machine toensure proper set-up and field arrangement is correct prior to the first treatment of primary and boost stark if applicable. Electronically Signed Luciana Florez M.D./irma :19 PM documented in this encounterUc Medical Center11-26-2024 NoteBlanchard Valley [facility]11-26-2024 NoteBl[facility]ard [facility]11-22-2024 Telephone encounter Note* Telephone Encounter - Dacia Espinoza LISW - 02/12/2024 9:32 AM EST SOCIAL WORK FOLLOW UP NOTE: [facility] Date of service: February 12, 2024 Marina Moraes is being seen for a follow up social work visit. Today's visit includes: patient TOPICS ADDRESSED: SW met with pt this date who brought in received application from [employer] renew her patient assistance for Ibrance. Pt reports she completed the pt portion online howevergave SW the healthcare provider portion of the application and also asked if SW would fax her insurance card (pt provided). SW to have physician review and sign HCP forms and fax to [employer] once completed. No other needs identified this date, pt here today for consult to [facility]. PLAN: Assist with financial support applications and Continue follow up as needed F/U APPOINTMENT: PRN Assigned YAO listed in Care Team tab: Yes JOSE Lomeli [facility]11-22-2024 Miscellaneous Notes* Telephone Encounter - Dacia Espinoza LISW - 02/12/2024 9:32 AM EST SOCIAL WORK FOLLOW UP NOTE: [facility] Date of service: February 12, 2024 Marina oMraes is being seen for a follow up social work visit. Today's visit includes: patient TOPICS ADDRESSED: SW met with pt this date who brought in received application from [employer] renew her patient assistance for Ibrance. Pt reports she completed the pt portion online howevergave YAO the healthcare provider portion of the application and also asked if SW would fax her insurance card (pt provided). SW to have physician review and sign HCP forms and fax to [employer] once completed. No other needs identified this date, pt here today for consult to [facility]. PLAN: Assist with financial support applications and Continue follow up as needed F/U APPOINTMENT: PRN Assigned YAO listed in Care Team tab: Yes JOSE Lomeli documented [facility]24 Nurse Note* Cheli Chung RN - 02/12/2024 9:30 AM EST Radiation Therapy - Nursing Note (Consult) PATIENT NAME: Marina Moraes PATIENT February 12, 2024 [facility] FACILITY/LOCATION: [place] Chief Complaint: consult Reason for visit: Consult. Referring physician: Internal provider Dr Alvarez Subjective Data: consult Additional Data Do you want to see a Ct Scan Special Procedures Technologist? No Are you interested in information about fertility? No Status: History of hysterectomy Stress Scale: On a scale of 0 to 10, what number best describes how much distress you have experienced in the past week?(0 being no distress and 10 being extreme distress) 0 Social work notified: no SIGNED by: Cheli Chung RN [facility] Nurse Note* Cheil Chung RN - 02/12/2024 9:30 AM EST Radiation Therapy - Nursing Note (Consult) PATIENT NAME: Marina Moraes PATIENT February 12, 2024 [facility] FACILITY/LOCATION: [place] Chief Complaint: consult Reason for visit: Consult. Referring physician: Internal provider Dr Alvarez Subjective Data: consult Additional Data Do you want to see a Ct Scan Special Procedures Technologist? No Are you interested in information about fertility? No Status: History of hysterectomy Stress Scale: On a scale of 0 to 10, what number best describes how much distress you have experienced in the past week?(0 being no distress and 10 being extreme distress) 0 Social work notified: no SIGNED by: Cheli Chung RN documented in this encounterUc [facility] Center11-22-2024 NoteBl[facility] History of Present illness Narrative* Luciana Florez MD - 02/12/2024 9:19 AM EST Radiation Oncology - New Patient/Consult Note PATIENT NAME: Marina Moraes PATIENT REQUESTING PROVIDER: Dr. Damaso Alvarez DIAGNOSIS: Metastatic breast cancer with progressive bone metastasis in the right iliac bone and pain. HPI: 78 year old female who presents with above diagnosis, for an opinion regarding the role of radiation therapy in the management of the patient's disease. Final recommendations will be communicated back to the requesting physician by way of the shared medical record, or letter to requesting physician via US mail. 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 She was then treated with Arimidex which changed to Tamoxifen in 2008. She finished Tamoxifen in 07/2012. She had distant recurrence in 2018 when she presented with malignant pleural effusion. PET scan then showed bone metastases. She is on Fulvestrant and Ibrance and Zoledronic acid. CT C/A/P on 01/03/24 showed further interval enlargement of the right iliac bone metastasis from 2.2 x 1.2 cm to 2.6 x 1.9 cm. Other osseous metastases do not appear appreciably changed. No new sitesof metastatic disease identified in the chest, abdomen, or pelvis. She has moderate tenderness in the right pelvis. ALLERGIES Allergen Reactions Contrast Dye [Iodin* Rash Sulfa (Sulfonamide * Rash, Hives, Unknown Current Outpatient Medications on File Prior to Visit Medication Sig palbociclib (IBRANCE) 125 mg tablet Take 1 tablet (125mg) by mouth once daily for 3 weeks on, followed by 1 week off. Take with or without food triamcinolone acetonide (KENALOG) 0.1 % cream Apply to affected area twice daily. APPLY TO AFFECTEDAREA fluorometholone (FML LIQUID FILM) 0.1 % ophthalmic suspension Use 1 Drop in the right eye three times daily. (Patient not taking: Reported on 07/30/2022) propylene glycol (SYSTANE BALANCE OPHTHALMIC) Use 1 Drop in eyes three times a day. multivitamin with minerals (HAIR,SKIN AND NAILS) tablet Take 1 tablet by mouth once daily. Chlorhexidine Gluconate (PERIDEX) 0.12 % solution Use 15 mL as instructed twice daily. Rinse aroundmouth for 30 seconds then expectorate (Patient taking differently: Use 15 mL as instructed two times a day. Rinse around mouth for 30 seconds then expectorate PRN) cyanocobalamin, vitamin B-12, 5,000 mcg cap Take by mouth once daily. (Patient not taking: No sig reported) melatonin 3 mg tablet 6 mg daily at bedtime. Take 3 tablets by mouth at bedtime as needed. elderberry fruit (ELDERBERRY ORAL) Take 1 tablet by mouth once daily. naproxen sodium (ANAPROX) 220 mg tablet Take 440 mg by mouth as needed. calcium carb/vitamin D3/vit K1 (SOFT CHEWS CALCIUM ORAL) Take 2 Each by mouth once daily. senna (SENOKOT) 8.6 mg tab Take 2 tablets by mouth once daily as needed. (Patient not taking: No sig reported) MULTIVITAMIN ORAL Take 1 tablet by mouth once daily. VENLAFAXINE XR 37.5 mg 24 hr capsule Take 37.5 mg by mouth once daily. carvedilol (COREG) 12.5 mg tablet Take 12.5 mg by mouth twice daily with meals. Take with food. PRILOSEC 20 MG CAP Take 20 mg by mouth once daily. No current facility-administered medications on file prior to visit. PAST MEDICAL HISTORY Diagnosis Date Bone metastases 02/15/2019 Esophageal reflux Malignant neoplasm of upper-outer quadrant of right breast in female, estrogen receptor positive (HCC) 01/13/2019 Malignant neoplasm of upper-outer quadrant of right breast in female, estrogen receptor positive (HCC) 01/13/2019 Paroxysmal supraventricular tachycardia (HCC) Seborrhea Unspecified sleep apnea Prior radiation therapy, collagen vascular disease, or inflammatory bowel disease: Yes, previous radiation treatment to the right breast as above. Any implanted or external electric devices? No status: Post-menopausal. PAST SURGICAL HISTORY Procedure Laterality Date BREAST RECONSTRUCTION 2011 right BX BREAST PERC VACUUM/ROTN 04/18/2013 left - benign BX/EXC LYMPH NODE OPEN DEEP AXILLARY NODE 04/20/2007 Negative HERNIA REPAIR HX 08/18/2016 HYSTERECTOMY HX 10/2009 MASTECTOMY, PARTIAL 03/04/2007 Right upper outer quadrant PAST SURGICAL HISTORY OF 2006 left wrist fx ORIF PAST SURGICAL HISTORY OF 1997 left wrist FX - ex-fix PAST SURGICAL HISTORY OF tubal ligation REMV CATARACT EXTRACAP,INSERT LENS Left 03/20/2022 SN60WF +15.5 D REMV CATARACT EXTRACAP,INSERT LENS Right 03/25/2022 FAMILY HISTORY Problem Relation Age of Onset No Ocular Disease Father Alcohol/Drug Father Blood Disease Father No Ocular Disease Mother COPD Mother Prostate Cancer Brother Coronary Artery Disease Maternal Grandmother Breast Cancer Paternal Grandmother Social History Tobacco Use Smoking status: Former Current packs/day: 0.00 Types: Cigarettes Quit date: 03/18/1979 Years since quittin.9 Smokeless tobacco: Never Tobacco comments: Pt smoked 1 cigarette daily on & off x 10 years. Vaping Use Vaping status: Never Used Substance Use Topics Alcohol use: Yes Comment: occ Drug use: No COMPLETE REVIEW OF SYSTEMS: GENERAL: feeling well without fatigue, no recent change in weight HEENT: denies WONG, change in hearing or vision, no other ENT complaints NECK: denies swelling or pain in neck RESPIRATORY: chronic shortness of breath CARDIOVASCULAR: no chest pain, no palpitations GI: constipation taking Senna : urination is normal MUSCULOSKELETAL: denies any painful or swollen joints, no muscle aches SKIN: no rash HEMATOLOGY/LYMPHOLOGY: negative for prolonged bleeding, no swollen lymph nodes NEURO: no numbness or paresthesias and no weakness of the extremities PHYSICAL EXAM: VS: BP 136/80 Pulse 63 Temp 36.7 C (98 F) (Temporal) Resp 16 Wt 93 kg (205 lb) SpO2 95% BMI 41.40 kg/m KPS: 90 General Appearance: Alert and oriented. No acute distress. HEENT: NCAT. Sclera anicteric. EOMI. Neck: Normal ROM. Chest: No respiratory distress. Musculoskeletal: Normal ROM in extremities. Neuro: Speech fluent. Gait normal. No focal deficits. Hematologic: No signs of active bleeding. RADIOLOGY/LABORATORY DATA: see HPI ASSESSMENT AND PLAN: 78 year old woman with metastatic breast cancer with progressive bone metastasis in the right iliac bone and pain. I recommend palliative radiation treatment to the right iliac bone. I explained the rationale, benefits, alternative management options and potential complications of radiation treatment to the patient and she understands and agrees to proceed. It was explained and understood that other personnel such as radiation therapists, web content executive, and physicists will partici knowles in planning and delivery of radiation treatment. Permanent tattoo norman will be placed to aid with positioning for daily treatment and the patient consented. Patient will have a simulation procedure next week. Thank you very much for allowing us to participate in her care. Signed by: Luciana Florez MD cc: Dot Allen DO ([facility]) [id number] [place] [address] Damaso Alvarez [id number] [facility] [id number] documented in this encounterUc Medical Center11-06-2024 Nurse Note* Suzette Rodriguez LPN - 01/27/2024 2:04 PM EST Pt here for injection of Faslodex. Given IM, one 250 mg injection in each buttock. Pt tolerated well. For all other information regarding today, see today's OV note with Dr Alvarez. Suzette Rodriguez LPN [facility] Nurse Note* Suzette Rodriguez LPN - 01/27/2024 2:04 PM EST Pt here for injection of Faslodex. Given IM, one 250 mg injection in each buttock. Pt tolerated well. For all other information regarding today, see today's OV note with Dr Alvarez. Suzette Rodriguez LPN documented in this encounterUc [facility] Center11-06-2024 NoteBl[facility]11-06-2024 History of Present illness Narrative* Damaso Alvarez MD - 01/27/2024 1:29 PM EST (Elements copied from my note dated October 07, 2023, have been reviewed and updated where appropriate, and all reflect current assessment and medical decision making from today's encounter, January) HISTORY OF PRESENT ILLNESS: Marina Moraes is a 77 year old female who had a partial mastectomy and sentinel lymph node sampling on April 20, 2007 for a stage Ib, pT1b,No Mx moderately differentiated, 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 Initial FISH for HER-2 was equivocal, repeat should showed sample to be nonamplified. Patient had decided not to proceed with chemotherapy at that time and an Oncotype DX was not performed. Patient presented with several month history of epigastric right upper quadrant pain along with shortness of breath in December 2018. Evaluation showed a right pleural effusion, but ultrasound of the gallbladder showed no evidence of cholecystitis. She had multiple thoracentesis from November and most recently in 2 weeks. 900 cc of malignant fluid removed and cytology was positive for malignant cells consistent with metastatic carcinoma with breast primary. Estrogen and progesterone receptor were both positive, HER-2/roderick negative mamoglobin was positive focally. Completed radiation therapy on 07/16/2007 Started AI therapy July 2007. Changed to tamoxifen March 2008 secondary to myalgia or arthralgia. 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 Bone mets suggested on PET scan. ER/MI Her2 not done Current treatment: Fulvestrant and Ibrance Zoledronic acid IV every 3 months. Here for follow up, feeling well. Feels restless 3 days after faslodex, awake, insomnia. Reviewed family history brother with prostate cancer at age 60, also aunt and gm with breast cancer. CA 27.29 reasonably stable. 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 Overall remains fairly stable other than slow growth of right iliac lesion. RECOMMENDATION/PLAN: 1. Continue as above, labs as ordered. Plan to continue to follow CA 27-29. Otherwise plan to continue fulvestrant and ibrance 2. . Update scans in April 2024 3. Referral to RT re possible RT to right iliac bone lesion Written and verbal health teaching given to patient, patient verbalizes understanding and agrees with treatment plan. PAST MEDICAL HISTORY Diagnosis Date Bone metastases 02/15/2019 Esophageal reflux Malignant neoplasm of upper-outer quadrant of right breast in female, estrogen receptor positive (HCC) 01/13/2019 Malignant neoplasm of upper-outer quadrant of right breast in female, estrogen receptor positive (HCC) 01/13/2019 Paroxysmal supraventricular tachycardia (HCC) Seborrhea Unspecified sleep apnea PAST SURGICAL HISTORY Procedure Laterality Date BREAST RECONSTRUCTION 2011 right BX BREAST PERC VACUUM/ROTN 04/18/2013 left - benign BX/EXC LYMPH NODE OPEN DEEP AXILLARY NODE 04/20/2007 Negative HERNIA REPAIR HX 08/18/2016 HYSTERECTOMY HX 10/2009 MASTECTOMY, PARTIAL 03/04/2007 Right upper outer quadrant PAST SURGICAL HISTORY OF 2006 left wrist fx ORIF PAST SURGICAL HISTORY OF 1997 left wrist FX - ex-fix PAST SURGICAL HISTORY OF tubal ligation REMV CATARACT EXTRACAP,INSERT LENS Left 03/20/2022 SN60WF +15.5 D REMV CATARACT EXTRACAP,INSERT LENS Right 03/25/2022 FAMILY HISTORY Problem Relation Age of Onset No Ocular Disease Father Alcohol/Drug Father Blood Disease Father No Ocular Disease Mother COPD Mother Prostate Cancer Brother Coronary Artery Disease Maternal Grandmother Breast Cancer Paternal Grandmother Social History Tobacco Use Smoking status: Former Current packs/day: 0.00 Types: Cigarettes Quit date: 03/18/1979 Years since quittin.8 Smokeless tobacco: Never Tobacco comments: Pt smoked 1 cigarette daily on & off x 10 years. Vaping Use Vaping status: Never Used Substance Use Topics Alcohol use: Yes Comment: occ Drug use: No ALLERGIES: ALLERGIES Allergen Reactions Contrast Dye [Iodin* Rash Sulfa (Sulfonamide * Rash, Hives, Unknown CURRENT OUTPATIENT MEDICATIONS: palbociclib (IBRANCE) 125 mg tablet Take 1 tablet (125mg) by mouth once daily for 3 weeks on, followed by 1 week off. Take with or without food triamcinolone acetonide (KENALOG) 0.1 % cream Apply to affected area twice daily. APPLY TO AFFECTEDAREA propylene glycol (SYSTANE BALANCE OPHTHALMIC) Use 1 Drop in eyes three times a day. multivitamin with minerals (HAIR,SKIN AND NAILS) tablet Take 1 tablet by mouth once daily. melatonin 3 mg tablet 6 mg daily at bedtime. Take 3 tablets by mouth at bedtime as needed. elderberry fruit (ELDERBERRY ORAL) Take 1 tablet by mouth once daily. naproxen sodium (ANAPROX) 220 mg tablet Take 440 mg by mouth as needed. MULTIVITAMIN ORAL Take 1 tablet by mouth once daily. VENLAFAXINE XR 37.5 mg 24 hr capsule Take 37.5 mg by mouth once daily. carvedilol (COREG) 12.5 mg tablet Take 12.5 mg by mouth twice daily with meals. Take with food. PRILOSEC 20 MG CAP Take 20 mg by mouth once daily. fluorometholone (FML LIQUID FILM) 0.1 % ophthalmic suspension Use 1 Drop in the right eye three times daily. (Patient not taking: Reported on 07/30/2022) Chlorhexidine Gluconate (PERIDEX) 0.12 % solution Use 15 mL as instructed twice daily. Rinse aroundmouth for 30 seconds then expectorate (Patient taking differently: Use 15 mL as instructed two times a day. Rinse around mouth for 30 seconds then expectorate PRN) cyanocobalamin, vitamin B-12, 5,000 mcg cap Take by mouth once daily. (Patient not taking: No sig reported) calcium carb/vitamin D3/vit K1 (SOFT CHEWS CALCIUM ORAL) Take 2 Each by mouth once daily. senna (SENOKOT) 8.6 mg tab Take 2 tablets by mouth once daily as needed. (Patient not taking: No sig reported) REVIEW OF SYSTEMS: GENERAL: No fever, night sweats, weight loss or malaise. All other reviewed and negative other than HPI. PHYSICAL EXAMINATION: VITAL SIGNS: BP 118/78 Pulse 64 Temp (Src) 98.5 (Temporal) Wt 202 lb (91.6kg) SpO2 94% GENERAL APPEARANCE: Well appearing, in no acute distress, alert and oriented x3, well-hydrated, well nourished. I spent a total of 30 minutes reviewing separately obtained history, performing a medically appropriate examination, counseling and educating the patient/family/caregiver, ordering medications, tests, or procedures, independently interpreting results (not separately reported), and communicating results to the patient/family/caregiver. Electronically Signed: Damaso Alvarez MD January 27, 2024 documented in this encounterUc Medical Center10-09-2024 Nurse Note* Suzette Rodriguez LPN - 12/30/2023 2:09 PM EDT Patient here for injection of Faslodex given IM, one injection of 250 mg in each buttocks. Patient tolerated well. Suzette Rodriguez LPN [facility] Nurse Note* Suzette Rodriguez LPN - 12/30/2023 2:09 PM EDT Patient here for injection of Faslodex given IM, one injection of 250 mg in each buttocks. Patient tolerated well. Suzette Rodriguez LPN documented in this encounterUc Medical Center10-09-2024 History of Present illness Narrative* Diya Wilcox RT(R) - 12/30/2023 1:40 PM EDT Radiology Service Progress Note PATIENT NAME: Marina Moraes DATE OF SERVICE: December 30, 2023 TIME: 1:51 PM PATIENT IDENTITY VERIFICATION COMPLETED USING TWO (2) IDENTIFIERS: Name and Date of confirmedby patient verbally. FALL SCREENING: Has the patient had 2 falls in the last year or 1 fall with injury or currently using an Ambulatory Assistive Device (Walker, Cane, Wheelchair, Crutches, etc.)? No PATIENT GENDER DATA: Female. status: : No status: NO. 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 Maryam Gerber LPN [facility] Nurse Note* Maryam Gerber LPN - 11/04/2023 3:24 PM EDT Faslodex injection administered bilateral buttocks, tolerated well, no immediate adverse reactions noted. Maryam Gerber LPN documented in this encounterUc Medical Center07-17-2024 Nurse Note* Suzette Rodriguez LPN - 10/07/2023 3:00 PM EDT Pt here for injection of Faslodex. Given IM in B/L buttocks. Pt tolerated well. For all other information regarding today, see today's OV note today with Dr Alvarez. Suzette Rodriguez LPN [facility] Nurse Note* Suzette Rodriguez LPN - 10/07/2023 3:00 PM EDT Pt here for injection of Faslodex. Given IM in B/L buttocks. Pt tolerated well. For all other information regarding today, see today's OV note today with Dr Alvarez. 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 Initial FISH for HER-2 was equivocal, repeat should showed sample to be nonamplified. Patient had decided not to proceed with chemotherapy at that time and an Oncotype DX was not performed. Patient presented with several month history of epigastric right upper quadrant pain along with shortness of breath in December 2018. Evaluation showed a right pleural effusion, but ultrasound of the gallbladder showed no evidence of cholecystitis. She had multiple thoracentesis from November and most recently in 2 weeks. 900 cc of malignant fluid removed and cytology was positive for malignant cells consistent with metastatic carcinoma with breast primary. Estrogen and progesterone receptor were both positive, HER-2/roderick negative mamoglobin was positive focally. Completed radiation therapy on 07/16/2007 Started AI therapy July 2007. Changed to tamoxifen March 2008 secondary to myalgia or arthralgia. 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 Bone mets suggested on PET scan. ER/MI Her2 not done Current treatment: Fulvestrant and Ibrance Zoledronic acid IV every 3 months. Here for follow up, feeling well. Feels restless 3 days after faslodex, awake, insomnia. Reviewed family history brother with prostate cancer at age 60, also aunt and gm with breast cancer. CA 27.29 reasonably stable. 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 Overall remains stable, ?significance of iliac wing measurement, see little if any difference to myeye RECOMMENDATION/PLAN: 1. Continue as above, labs as ordered. Plan to continue to follow CA 27-29. Otherwise plan to continue fulvestrant and ibrance 2. . Update scans in December 2023 Written and verbal health teaching given to patient, patient verbalizes understanding and agrees with treatment plan. PAST MEDICAL HISTORY Diagnosis Date Bone metastases 02/15/2019 Esophageal reflux Malignant neoplasm of upper-outer quadrant of right breast in female, estrogen receptor positive (HCC) 01/13/2019 Malignant neoplasm of upper-outer quadrant of right breast in female, estrogen receptor positive (HCC) 01/13/2019 Paroxysmal supraventricular tachycardia (HCC) Seborrhea Unspecified sleep apnea PAST SURGICAL HISTORY Procedure Laterality Date BREAST RECONSTRUCTION 2011 right BX BREAST PERC VACUUM/ROTN 04/18/2013 left - benign BX/EXC LYMPH NODE OPEN DEEP AXILLARY NODE 04/20/2007 Negative HERNIA REPAIR HX 08/18/2016 HYSTERECTOMY HX 10/2009 MASTECTOMY, PARTIAL 03/04/2007 Right upper outer quadrant PAST SURGICAL HISTORY OF 2006 left wrist fx ORIF PAST SURGICAL HISTORY OF 1997 left wrist FX - ex-fix PAST SURGICAL HISTORY OF tubal ligation REMV CATARACT EXTRACAP,INSERT LENS Left 03/20/2022 SN60WF +15.5 D REMV CATARACT EXTRACAP,INSERT LENS Right 03/25/2022 FAMILY HISTORY Problem Relation Age of Onset No Ocular Disease Father Alcohol/Drug Father Blood Disease Father No Ocular Disease Mother COPD Mother Prostate Cancer Brother Coronary Artery Disease Maternal Grandmother Breast Cancer Paternal Grandmother Social History Tobacco Use Smoking status: Former Types: Cigarettes Quit date: 03/18/1979 Years since quittin.5 Smokeless tobacco: Never Tobacco comments: Pt smoked 1 cigarette daily on & off x 10 years. Vaping Use Vaping Use: Never used Substance Use Topics Alcohol use: Yes Comment: occ Drug use: No ALLERGIES: ALLERGIES Allergen Reactions Contrast Dye [Iodin* Rash Sulfa (Sulfonamide * Rash, Hives, Unknown CURRENT OUTPATIENT MEDICATIONS: palbociclib (IBRANCE) 125 mg tablet^Take 1 tablet (125mg) by mouth once daily for 3 weeks on, followed by 1 week off. Take with or without food^Disp: 21 tablet^Rfl: 2 triamcinolone acetonide (KENALOG) 0.1 % cream^Apply to affected area twice daily. APPLY TO AFFECTEDAREA^Disp: ^Rfl: propylene glycol (SYSTANE BALANCE OPHTHALMIC)^Use 1 Drop in eyes three times a day.^Disp: ^Rfl: multivitamin with minerals (HAIR,SKIN AND NAILS) tablet^Take 1 tablet by mouth once daily.^Disp: ^Rfl: melatonin 3 mg tablet^6 mg daily at bedtime. Take 3 tablets by mouth at bedtime as needed.^Disp: ^Rfl: elderberry fruit (ELDERBERRY ORAL)^Take 1 tablet by mouth once daily.^Disp: ^Rfl: naproxen sodium (ANAPROX) 220 mg tablet^Take 440 mg by mouth as needed.^Disp: ^Rfl: calcium carb/vitamin D3/vit K1 (SOFT CHEWS CALCIUM ORAL)^Take 2 Each by mouth once daily.^Disp: ^Rfl: MULTIVITAMIN ORAL^Take 1 tablet by mouth once daily. ^Disp: ^Rfl: VENLAFAXINE XR 37.5 mg 24 hr capsule^Take 37.5 mg by mouth once daily.^Disp: ^Rfl: carvedilol (COREG) 12.5 mg tablet^Take 12.5 mg by mouth twice daily with meals. Take with food.^Disp: ^Rfl: 0 PRILOSEC 20 MG CAP^Take 20 mg by mouth once daily.^Disp: ^Rfl: 0 fluorometholone (FML LIQUID FILM) 0.1 % ophthalmic suspension^Use 1 Drop in the right eye three times daily.^Disp: 10 mL^Rfl: 2 (Patient not taking: Reported on 07/30/2022) Chlorhexidine Gluconate (PERIDEX) 0.12 % solution^Use 15 mL as instructed twice daily. Rinse aroundmouth for 30 seconds then expectorate^Disp: 473 mL^Rfl: 0 (Patient taking differently: Use 15 mL asinstructed two times a day. Rinse around mouth for 30 seconds then expectorate PRN) cyanocobalamin, vitamin B-12, 5,000 mcg cap^Take by mouth once daily.^Disp: ^Rfl: (Patient not taking: No sig reported) senna (SENOKOT) 8.6 mg tab^Take 2 tablets by mouth once daily as needed.^Disp: 30 tablet^Rfl: 0 (Patient not taking: No sig reported) REVIEW OF SYSTEMS: GENERAL: No fever, night sweats, weight loss or malaise. All other reviewed and negative other than HPI. PHYSICAL EXAMINATION: VITAL SIGNS: BP 148/84[manual[ Pulse 55 Temp (Src) 98.5 (Temporal) Wt 205 lb (93.0kg) SpO2 94% GENERAL APPEARANCE: Well appearing, in no acute distress, alert and oriented x3, well-hydrated, well nourished. I spent a total of 30 minutes reviewing separately obtained history, performing a medically appropriate examination, counseling and educating the patient/family/caregiver, ordering medications, tests, or procedures, independently interpreting results (not separately reported), and communicating results to the patient/family/caregiver. Electronically Signed: Damaso Alvarez MD October 07, 2023 [facility] Telephone encounter Note * Telephone Encounter - Mesha Yun - 08/31/2023 4:02 PM EDT Scheduled [facility] Work Phone: [phone] 621-753706-10-2024 Miscellaneous Notes* Telephone Encounter - Mesha Yun - 08/31/2023 4:02 PM EDT Scheduled * Telephone Encounter - Maryam Gerber LPN - 08/31/2023 3:04 PM EDT Ok to schedule CBC/CMP/CA 27.[address] Alvarez when convenient for patient. He has an opening on 10/07/2023 (patient here for faslodex that day). Maryam Gerber LPN * Telephone Encounter - Mesha Yun - 08/31/2023 2:49 PM EDT Please advise of next office visit [facility] Telephone encounter Note * Telephone Encounter - Maryam Gerber LPN - 08/31/2023 3:04 PM EDT Ok to schedule CBC/CMP/CA 27.[address] Alvarez when convenient for patient. He has an opening on 10/07/2023 (patient here for faslodex that day). Maryam Gerber LPN [facility]06-10[facility] Telephone encounter Note* Telephone Encounter - Mesha Yun - 08/31/2023 2:49 PM EDT Please advise of next office visit [facility]05-22[facility] Nurse Note* Suzette Rodriguez LPN - 08/12/2023 11:23 AM EDT Pt here for injection of Faslodex. Given IM in B/L buttocks. Pt tolerated well. Suzette Rodriguez LPN [facility]05-22-[facility] Nurse Note* Suzette Rodriguez LPN - 08/12/2023 11:23 AM EDT Pt here for injection of Faslodex. Given IM in B/L buttocks. Pt tolerated well. Suzette Rodriguez LPN [facility] Nurse Note* Suzette Rodriguez LPN - 07/15/2023 11:34 AM EDT Pt here for injection of Faslodex. Given IM in B/L buttocks. Pt tolerated well. Suzette Rodriguez LPN [facility] Nurse Note* Suzette Rodriguez LPN - 07/15/2023 11:34 AM EDT Pt here for injection of Faslodex. Given IM in B/L buttocks. Pt tolerated well. Suzette Rodriguez LPN [facility] History of Present illness Narrative* Chacorta Herring LGC - 06/10/2023 10:07 AM EDT [facility] Consultation Note Genetic Counselor: Chacorta Herring, MS, CGC Patient: Marina Moraes Patient Name and confirmed at initiation of visit. HIGH LEVEL SUMMARY: The patient's personal history is potentially suggestive of a hereditary cancer syndrome. The patient provided informed consent for Multi-Cancer panel through [facility]. Results are expected in 2-3 weeks. IDENTIFICATION AND CHIEF COMPLAINT: Dr. Damaso Alvarez requested a consultation for genetic counseling and risk assessment for Marina Moraes, a 77 year old female, for discussion of her personal history of cancer. She presents to clinic today to discuss the possibility of a genetic predisposition to cancer, and to further clarify her risks, as well as her family members' risks for cancer. HISTORY OF PRESENT ILLNESS: In 2007, Marina Moraes was diagnosed with invasive ductal carcinoma of the Right breast. This was treated with lumpectomy. In 2018, Mrs. Moraes was diagnosed with a metastatic recurrence involving her bones. She is currently taking Faslodex and ibrance. PAST MEDICAL HISTORY Diagnosis Date Bone metastases 02/15/2019 Esophageal reflux Malignant neoplasm of upper-outer quadrant of right breast in female, estrogen receptor positive (HCC) 01/13/2019 Malignant neoplasm of upper-outer quadrant of right breast in female, estrogen receptor positive (HCC) 01/13/2019 Paroxysmal supraventricular tachycardia (HCC) Seborrhea Unspecified sleep apnea PAST SURGICAL HISTORY Procedure Laterality Date BREAST RECONSTRUCTION 2011 right BX BREAST PERC VACUUM/ROTN 04/18/2013 left - benign BX/EXC LYMPH NODE OPEN DEEP AXILLARY NODE 04/20/2007 Negative HERNIA REPAIR HX 08/18/2016 HYSTERECTOMY HX 10/2009 MASTECTOMY, PARTIAL 03/04/2007 Right upper outer quadrant PAST SURGICAL HISTORY OF 2006 left wrist fx ORIF PAST SURGICAL HISTORY OF 1997 left wrist FX - ex-fix PAST SURGICAL HISTORY OF tubal ligation REMV CATARACT EXTRACAP,INSERT LENS Left 03/20/2022 SN60WF +15.5 D REMV CATARACT EXTRACAP,INSERT LENS Right 03/25/2022 SOCIAL HISTORY: Social History Tobacco Use Smoking status: Former Types: Cigarettes Quit date: 03/18/1979 Years since quittin.2 Smokeless tobacco: Never Tobacco comments: Pt smoked 1 cigarette daily on & off x 10 years. Vaping Use Vaping Use: Never used Substance Use Topics Alcohol use: Yes Comment: occ Drug use: No FAMILY HISTORY: We obtained a detailed, 4-generation family history. Significant diagnoses are listed below: FAMILY HISTORY Problem Relation Age of Onset No Ocular Disease Father Alcohol/Drug Father Blood Disease Father No Ocular Disease Mother COPD Mother Prostate Cancer Brother Coronary Artery Disease Maternal Grandmother Breast Cancer Paternal Grandmother GENETIC COUNSELING RISK ASSESSMENT, DISCUSSION, AND SUGGESTED FOLLOW UP: We reviewed the natural history and genetic etiology of sporadic, familial and hereditary cancer syndromes. The patient's personal and family history is potentially suggestive of: a hereditary cancer syndrome The patient meets NCCN HBOC testing criteria based on her personal history of cancer in which testing can aid in systemic therapy decision making and personal history of breast cancer and 2 close relatives with breast or prostate cancer at any age. We discussed that identification of a hereditary cancer syndrome may help her care providers tailorher medical management. If a mutation is detected, the patient will be referred back to the referring provider and to any additional appropriate care providers to discuss the relevant options. Inheritance of hereditary cancer syndromes was discussed with the patient. If a mutation is not found in the patient, this will decrease the likelihood of a hereditary cancersyndrome as the explanation for the patient's personal and family history of cancer. However, it cannot completely rule out this possibility. Cancer surveillance options would be discussed for the patient according to the appropriate standard National Comprehensive Cancer Network and [place] [employer] guidelines, with consideration of their personal and family history risk factors. In this case, the patient will be referred back to their care providers for discussions of management. Based on this assessment of the patient's family and personal history, genetic testing is recommended. The patient was offered Multi-Cancer panel through [facility]. After considering the risks, benefits, and limitations, the patient chose to pursue and provided informed consent for the following testing: Multi-Cancer panel through [facility]. The Multi-Cancer Panel includes AIP, ALK, APC, CARLOTTA, AXIN2, BAP1, BARD1, BLM, BMPR1A, BRCA1, BRCA2, BRIP1, CDC73, CDH1, CDK4, CDKN1B, CDKN2A, CHEK2, CTNNA1, DICER1, EGFR, EPCAM, FH, FLCN, GREM1, HOXB13, KIT, LZTR1, MAX, MBD4, MEN1, MET, MITF, MLH1, MSH2, MSH3, MSH6, MUTYH, NF1, NF2, NTHL1, PALB2, PDGFRA, PMS2, POLD1, POLE, POT1, GTOTV5P, PTCH1, PTEN, RAD51C, RAD51D, RB1, RET, SDHA, SDHAF2, SDHB, SDHC, SDHD, SMAD4, SMARCA4, SMARCB1, SMARCE1, STK11, SUFU, SCQW658, TP53, TSC1, TSC2, and VHL The Multi-Cancer panel looks at genes associated with cancers of the breast, gynecologic tract (ovarian, uterine/endometrial), gastrointestinal system (colorectal, gastric, pancreatic), endocrine glands (thyroid, parathyroid, pituitary, adrenal glands), genitourinary tract (renal/urinary tract, prostate), skin (melanoma, basal cell carcinoma), and brain/nervous system. We discussed that an NGS panel can rarely result in an unexpected finding which may or may not be related to the presenting phenotype. We discussed that [facility] may contact the patient by text or email regarding billing. The patient should watch for this communication and respond promptly. The patient should contact [facility] directlywith any billing questions (ph. [phone]). Per the patient's request, I will contact her by telephone to discuss these results. A follow up genetic counseling visit will be scheduled if requested. The patient was seen for a total of 30 minutes, greater than 50% of which was spent [id number] counseling. This plan is being carried out under the oversight of Dr. Deisi Castro. This note will also be sent to the referring provider via the electronic medical record. Chacorta Herring MS, [facility] Licensed, Certified Genetic Counselor [facility] CC: Dr. 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 Initial FISH for HER-2 was equivocal, repeat should showed sample to be nonamplified. Patient had decided not to proceed with chemotherapy at that time and an Oncotype DX was not performed. Patient presented with several month history of epigastric right upper quadrant pain along with shortness of breath in December 2018. Evaluation showed a right pleural effusion, but ultrasound of the gallbladder showed no evidence of cholecystitis. She had multiple thoracentesis from November and most recently in 2 weeks. 900 cc of malignant fluid removed and cytology was positive for malignant cells consistent with metastatic carcinoma with breast primary. Estrogen and progesterone receptor were both positive, HER-2/roderick negative mamoglobin was positive focally. Completed radiation therapy on 07/16/2007 Started AI therapy July 2007. Changed to tamoxifen March 2008 secondary to myalgia or arthralgia. 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 Bone mets suggested on PET scan. ER/MI Her2 not done Current treatment: Fulvestrant and Ibrance Zoledronic acid IV every 3 months. Here for follow up, feeling well. Reviewed family history brother with prostate cancer at age 60, also aunt and gm with breast cancer. 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 Overall remains stable, ?significance of iliac wing measurement. RECOMMENDATION/PLAN: 1. Continue as above, labs as ordered. Plan to continue to follow CA 27-29. Otherwise seems best tocontinue current treatment 2. . Update scans in 2-3 months Written and verbal health teaching given to patient, patient verbalizes understanding and agrees with treatment plan. PAST MEDICAL HISTORY Diagnosis Date Bone metastases 02/15/2019 Esophageal reflux Malignant neoplasm of upper-outer quadrant of right breast in female, estrogen receptor positive (HCC) 01/13/2019 Malignant neoplasm of upper-outer quadrant of right breast in female, estrogen receptor positive (HCC) 01/13/2019 Paroxysmal supraventricular tachycardia (HCC) Seborrhea Unspecified sleep apnea PAST SURGICAL HISTORY Procedure Laterality Date BREAST RECONSTRUCTION 2011 right BX BREAST PERC VACUUM/ROTN 04/18/2013 left - benign BX/EXC LYMPH NODE OPEN DEEP AXILLARY NODE 04/20/2007 Negative HERNIA REPAIR HX 08/18/2016 HYSTERECTOMY HX 10/2009 MASTECTOMY, PARTIAL 03/04/2007 Right upper outer quadrant PAST SURGICAL HISTORY OF 2006 left wrist fx ORIF PAST SURGICAL HISTORY OF 1997 left wrist FX - ex-fix PAST SURGICAL HISTORY OF tubal ligation REMV CATARACT EXTRACAP,INSERT LENS Left 03/20/2022 SN60WF +15.5 D REMV CATARACT EXTRACAP,INSERT LENS Right 03/25/2022 FAMILY HISTORY Problem Relation Age of Onset No Ocular Disease Father Alcohol/Drug Father Blood Disease Father No Ocular Disease Mother COPD Mother Prostate Cancer Brother Coronary Artery Disease Maternal Grandmother Breast Cancer Paternal Grandmother Social History Tobacco Use Smoking status: Former Types: Cigarettes Quit date: 03/18/1979 Years since quittin.2 Smokeless tobacco: Never Tobacco comments: Pt smoked 1 cigarette daily on & off x 10 years. Vaping Use Vaping Use: Never used Substance Use Topics Alcohol use: Yes Comment: occ Drug use: No ALLERGIES: ALLERGIES Allergen Reactions Contrast Dye [Iodin* Rash Sulfa (Sulfonamide * Rash, Hives, Unknown CURRENT OUTPATIENT MEDICATIONS: palbociclib (IBRANCE) 125 mg tablet Take 1 tablet (125mg) by mouth once daily for 3 weeks on, followed by 1 week off. Take with or without food triamcinolone acetonide (KENALOG) 0.1 % cream Apply to affected area twice daily. APPLY TO AFFECTEDAREA propylene glycol (SYSTANE BALANCE OPHTHALMIC) Use 1 Drop in eyes three times a day. multivitamin with minerals (HAIR,SKIN AND NAILS) tablet Take 1 tablet by mouth once daily. Chlorhexidine Gluconate (PERIDEX) 0.12 % solution Use 15 mL as instructed twice daily. Rinse aroundmouth for 30 seconds then expectorate (Patient taking differently: Use 15 mL as instructed two times a day. Rinse around mouth for 30 seconds then expectorate PRN) melatonin 3 mg tablet Take 3 tablets by mouth at bedtime as needed. elderberry fruit (ELDERBERRY ORAL) Take 1 tablet by mouth once daily. naproxen sodium (ANAPROX) 220 mg tablet Take 440 mg by mouth as needed. calcium carb/vitamin D3/vit K1 (SOFT CHEWS CALCIUM ORAL) Take 2 Each by mouth once daily. MULTIVITAMIN ORAL Take 1 tablet by mouth once daily. VENLAFAXINE XR 37.5 mg 24 hr capsule Take 37.5 mg by mouth once daily. carvedilol (COREG) 12.5 mg tablet Take 12.5 mg by mouth twice daily with meals. Take with food. PRILOSEC 20 MG CAP Take by mouth once daily. fluorometholone (FML LIQUID FILM) 0.1 % ophthalmic suspension Use 1 Drop in the right eye three times daily. (Patient not taking: Reported on 07/30/2022) cyanocobalamin, vitamin B-12, 5,000 mcg cap Take by mouth once daily. (Patient not taking: No sig reported) senna (SENOKOT) 8.6 mg tab Take 2 tablets by mouth once daily as needed. (Patient not taking: No sig reported) REVIEW OF SYSTEMS: GENERAL: No fever, night sweats, weight loss or malaise. All other reviewed and negative other than HPI. PHYSICAL EXAMINATION: VITAL SIGNS: BP 132/74 Pulse 62 Temp (Src) 97.7 (Temporal) Wt 210 lb 8 oz (95.5kg) SpO2 97% GENERAL APPEARANCE: Well appearing, in no acute distress, alert and oriented x3, well-hydrated, well nourished. I spent a total of 30 minutes reviewing separately obtained history, performing a medically appropriate examination, counseling and educating the patient/family/caregiver, ordering medications, tests, or procedures, independently interpreting results (not separately reported), and communicating results to the patient/family/caregiver. Electronically Signed: Damaso Alvarez MD May 20, 2023 documented in this [facility]-28-[facility]24 History of Present illness Narrative* Suzette Rodriguez LPN - 05/20/2023 10:57 AM EST Pt here for injection of Faslodex. Given IM in B/L buttocks. For all other information, see todays OV with Dr Alvarez. Pt tolerated well. Suzette Rodriguez LPN documented in this [facility]02-16-[facility]24 History of Present illness Narrative* Diya Wilcox, RT(R) - 05/08/2023 11:00 AM EST Radiology Service Progress Note PATIENT NAME: Marina Moraes DATE OF SERVICE: May 08, 2023 TIME: 1:26 PM PATIENT IDENTITY VERIFICATION COMPLETED USING TWO (2) IDENTIFIERS: Name and Date of confirmedby patient verbally. FALL SCREENING: Has the patient had 2 falls in the last year or 1 fall with injury or currently using an Ambulatory Assistive Device (Walker, Cane, Wheelchair, Crutches, etc.)? No PATIENT GENDER DATA: Female. status: : No status: NO. PATIENT RELEVANT IMPLANT DATA REVIEWED: Yes PATIENT PRESENTS WITH AN IMPLANTABLE OR ATTACHED LEAD RETAIL SALES ASSOCIATE: No RADIOLOGY DEPARTMENT: CT; Exam(s) Completed: Chest Abdomen Pelvis PERIPHERAL IV DATA: Not applicable SIGNED BY: RT Kesha(R) May 08, 2023 1:26 PM documented in this encounter[facility]02-16-2024 History of Present illness Narrative* Nicki Castro RT(R) - 05/08/2023 10:00 AM EST RADIOLOGY SERVICE PROGRESS NOTE SERVICE DATE: 05/08/2023 SERVICE TIME: \10:07 AM PATIENT IDENTITY VERIFICATION COMPLETED USING TWO (2) STANDARD IDENTIFIERS: Name and Date of confirmed by patient verbally FALL SCREENING: Has the patient had 2 falls in the last year or 1 fall with injury or currently using an Ambulatory Assistive Device (Walker, Cane, Wheelchair, Crutches, etc.)? No PATIENT GENDER DATA: .female : No ALLERGIES: Reviewed and unchanged MEDICATIONS REVIEWED: No PATIENT RELEVANT IMPLANT DATA REVIEWED: Not Applicable PATIENT PRESENTS WITH AN IMPLANTABLE OR ATTACHED LEAD RETAIL SALES ASSOCIATE: N/A CREATININE: Creatinine Date Value Ref Range Status 04/22/2023 0.87 0.58 - 0.96 mg/dL Final 03/24/2023 0.90 0.58 - 0.96 mg/dL Final 02/23/2023 0.93 0.58 - 0.96 mg/dL Final Estimated Glomerular Filtration Rate Date Value Ref Range Status 04/22/2023 70 >=60 mL/min/1.73m Final Comment: Estimated Glomerular Filtration Rate (eGFR) is calculated using the 2020 CKD-EPI creatinine equation. This equation utilizes serum creatinine, sex, and age as parameters. The creatinine assay has traceable calibration to isotope dilution- mass spectrometry. Refer to KDIGO guidelines for clinical interpretation. In patients with unstable renal function, e.g. those with acute kidney injury, the eGFRmay not accurately reflect actual GFR. eGFR- Date Value Ref Range Status 03/26/2021 >60 Final P.O.C.T. RESULTS: N/A May 08, [address] PERFORMED: No IV SITE: Ambulatory: A peripheral IV was started in the Left hand with a Angio cath: 24 gauge. POST EXAM PIV STATUS: Discontinued PROCEDURE TYPE: NM INJECT: Whole Body Bone Scan. 22.6 mCi Tc99m MDP. No other medications given.. ADMINISTRATION TIME: 10:15 PATIENT DISCHARGED TO: Ambulatory patient, left NM department area. A Diagnostic radioactive procedure has taken place, with no further precautions necessary other than routine body substance precautions. More information regarding radiation safety can be found usingthis link: [email or web address] SIGNATURE: ANGY Parekh) PATIENT NAME: Marina Moraes DATE: May 08, 2023 TIME: 2:37 PM PAGER/CONTACT #: documented in this [facility]12-04-2023 Nurse Note* Susan Christopher LPN - 02/23/2023 10:20 AM EST faslodex injection administered, bilateral buttocks,tolerated well, no immediate adverse reactions noted. Susan Christopher LPN documented in this [facility]12-04-2023 History of Present illness Narrative* Susan Christopher LPN - 02/23/2023 10:12 AM EST .inj documented in this [facility]10-19-2023 History of Present illness Narrative* Damaso Alvarez MD - 01/08/2023 9:35 AM EDT (Elements copied from my note dated November 03, 2022, have been reviewed and updated where appropriate, and all reflect current assessment and medical decision making from today's encounter, January 08, 2023) HISTORY OF PRESENT ILLNESS: Marina Moraes is a 77 year old female who had a partial mastectomy and sentinel lymph node sampling on April 20, 2017 for a stage Ib, pT1b,No Mx moderately differentiated, 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 Initial FISH for HER-2 was equivocal, repeat should showed sample to be nonamplified. Patient had decided not to proceed with chemotherapy at that time and an Oncotype DX was not performed. Patient presented with several month history of epigastric right upper quadrant pain along with shortness of breath in December 2018. Evaluation showed a right pleural effusion, but ultrasound of the gallbladder showed no evidence of cholecystitis. She had multiple thoracentesis from November and most recently in 2 weeks. 900 cc of malignant fluid removed and cytology was positive for malignant cells consistent with metastatic carcinoma with breast primary. Estrogen and progesterone receptor were both positive, HER-2/roderick negative mamoglobin was positive focally. Completed radiation therapy on 07/16/2007 Started AI therapy July 2007. Changed to tamoxifen March 2008 secondary to myalgia or arthralgia. 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 Bone mets suggested on PET scan. ER/MI Her2 not done Current treatment: Fulvestrant and Ibrance Zoledronic acid IV every 3 months. Here for follow up, feeling well. Labs, radiographs reviewed. Right iliac wing lesion sl larger on CT, bone scan is stable. 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 Overall remains stable, ?significance of iliac wing measurement. RECOMMENDATION/PLAN: 1. Continue as above, labs as ordered. Plan to continue to follow CA 27-29, if it continue to increase will rescan in 3 months or so. Otherwise seems best to continue current treatment Written and verbal health teaching given to patient, patient verbalizes understanding and agrees with treatment plan. PAST MEDICAL HISTORY Diagnosis Date Bone metastases 02/15/2019 Esophageal reflux Malignant neoplasm of upper-outer quadrant of right breast in female, estrogen receptor positive (HCC) 01/13/2019 Malignant neoplasm of upper-outer quadrant of right breast in female, estrogen receptor positive (HCC) 01/13/2019 Paroxysmal supraventricular tachycardia (HCC) Seborrhea Unspecified sleep apnea PAST SURGICAL HISTORY Procedure Laterality Date BREAST RECONSTRUCTION 2011 right BX BREAST PERC VACUUM/ROTN 04/18/2013 left - benign BX/EXC LYMPH NODE OPEN DEEP AXILLARY NODE 04/20/2007 Negative HERNIA REPAIR HX 08/18/2016 HYSTERECTOMY HX 10/2009 MASTECTOMY, PARTIAL 03/04/2007 Right upper outer quadrant PAST SURGICAL HISTORY OF 2006 left wrist fx ORIF PAST SURGICAL HISTORY OF 1997 left wrist FX - ex-fix PAST SURGICAL HISTORY OF tubal ligation REMV CATARACT EXTRACAP,INSERT LENS Left 03/20/2022 SN60WF +15.5 D REMV CATARACT EXTRACAP,INSERT LENS Right 03/25/2022 FAMILY HISTORY Problem Relation Age of Onset No Ocular Disease Father Alcohol/Drug Father Blood Disease Father No Ocular Disease Mother COPD Mother Prostate Cancer Brother Coronary Artery Disease Maternal Grandmother Breast Cancer Paternal Grandmother Social History Tobacco Use Smoking status: Former Types: Cigarettes Quit date: 03/18/1979 Years since quittin.8 Smokeless tobacco: Never Tobacco comments: Pt smoked 1 cigarette daily on & off x 10 years. Vaping Use Vaping Use: Never used Substance Use Topics Alcohol use: Yes Comment: occ Drug use: No ALLERGIES: ALLERGIES Allergen Reactions Contrast Dye [Iodin* Rash Sulfa (Sulfonamide * Rash, Hives, Unknown CURRENT OUTPATIENT MEDICATIONS: palbociclib (IBRANCE) 125 mg tablet Take 1 tablet (125mg) by mouth once daily for 3 weeks on, followed by 1 week off. Take with or without food triamcinolone acetonide (KENALOG) 0.1 % cream Apply to affected area twice daily. APPLY TO AFFECTEDAREA fluorometholone (FML LIQUID FILM) 0.1 % ophthalmic suspension Use 1 Drop in the right eye three times daily. (Patient not taking: Reported on 07/30/2022) propylene glycol (SYSTANE BALANCE OPHTHALMIC) Use 1 Drop in eyes three times daily. (Patient not taking: Reported on 12/24/2022) multivitamin with minerals (HAIR,SKIN AND NAILS) tablet Take 1 tablet by mouth every other day. Chlorhexidine Gluconate (PERIDEX) 0.12 % solution Use 15 mL as instructed twice daily. Rinse aroundmouth for 30 seconds then expectorate (Patient taking differently: Use 15 mL as instructed twice daily. Rinse around mouth for 30 seconds then expectorate PRN) cyanocobalamin, vitamin B-12, 5,000 mcg cap Take by mouth once daily. (Patient not taking: No sig reported) melatonin 3 mg tablet Take 3 mg by mouth daily at bedtime. Take 3 tablets by mouth at bedtime as needed. elderberry fruit (ELDERBERRY ORAL) Take by mouth. Daily gummy naproxen sodium (ANAPROX) 220 mg tablet Take 440 mg by mouth as needed. calcium carb/vitamin D3/vit K1 (SOFT CHEWS CALCIUM ORAL) Take 2 Units by mouth once daily. 2 chewables daily senna (SENOKOT) 8.6 mg tab Take 2 tablets by mouth once daily as needed. (Patient not taking: No sig reported) MULTIVITAMIN ORAL Take 1 tablet by mouth once daily. VENLAFAXINE XR 37.5 mg 24 hr capsule Take 37.5 mg by mouth once daily. carvedilol (COREG) 12.5 mg tablet Take 12.5 mg by mouth twice daily with meals. Take with food. PRILOSEC 20 MG CAP Take by mouth once daily. REVIEW OF SYSTEMS: GENERAL: No fever, night sweats, weight loss or malaise. All other reviewed and negative other than HPI. PHYSICAL EXAMINATION: VITAL SIGNS: There were no vitals taken for this visit. GENERAL APPEARANCE: Well appearing, in no acute distress, alert and oriented x3, well-hydrated, well nourished. I spent a total of 30 minutes on the date of the service which included preparing to see the patient, [id number] patient care, completing clinical documentation, obtaining and/or reviewing separately obtained history, performing a medically appropriate examination, counseling and educating the pat ient/family/caregiver, ordering medications, tests, or procedures, independently interpreting results (not separately reported), and communicating results to the patient/family/caregiver. Electronically Signed: Damaso Alvarez MD January 08, 2023 documented [facility]23 Miscellaneous Notes* Telephone Encounter - Mesha Yun - 12/03/2022 9:31 AM EDT Patient has been identified by name and date of : Yes Last office visit in this department: 04/05/2013 RX INSTRUCTIONS: Patient aware RX escripted to mail away pharmacy. No need to notify patient. Patient states [employer] contacted her informing that last rx was still under Dr. Hayes. Patient phones requesting refills as follows: Requested Prescriptions Pending Prescriptions Disp Refills palbociclib (IBRANCE) 125 mg tablet 21 tablet 2 Sig: Take 1 tablet (125mg) by mouth once daily for 3 weeks on, followed by 1 week off. Take with orwithout food Please review and advise. Mesha Liu Pss documented in this encounter[facility]09-07-2023 Miscellaneous Notes* Telephone Encounter - Qi Kincaid - 11/27/2022 2:32 PM EDT Orders changed and pt scheduled * Telephone Encounter - Qi Kincaid - 11/26/2022 4:42 PM EDT Spoke to pt and scheduled WHOLE BODY BONE SCAN Pt stated that she is Allergic to dye for CT scan. Sent [employer] chat message to Provider requesting the orders to be updated * Telephone Encounter - Marielena Braxton - 11/26/2022 11:38 AM EDT PER ALYX Peguero, i just placed orders for CT CAP and bone scan on pt, can we schedule them? documented in this encounter[facility]09-[facility]-2023 History of Present illness Narrative* Suzette Rodriguez LPN - 11/26/2022 12:00 PM EDT Pt here for injection of Faslodex. Given IM in B/L buttocks. Pt tolerated well. Suzette Rodriguez LPN documented in this encounter[facility]08-17-2023 Miscellaneous Notes* Telephone Encounter - Carito La RN - 11/06/2022 10:22 AM EDT Images from the original note were not included. documented in this encounter[facility] Center08-15-2023 Miscellaneous Notes* Telephone Encounter - Mesha Yun - 11/04/2022 10:05 AM EDT completed * Telephone Encounter - Maryam Gerber LPN - 11/04/2022 8:44 AM EDT Q month Falsodex. Q 3 month Zometa. Continue Ibrance. CBC/CMP/CA 15-3/CA 27.29/OV in 3 months. Maryam Gerber LPN * Telephone Encounter - Maryam Gerber LPN - 11/03/2022 4:20 PM EDT OV note not completed yet. Maryam Gerber LPN * Telephone Encounter - Qi Kincaid - 11/03/2022 3:51 PM EDT Lab orders and Marley Order placed NO avs note at check out, please advise on scheduling documented in this encounterU[facility] Center08-07-2023 Nurse Note* Suzette Rodriguez LPN - 10/27/2022 11:46 AM EDT Pt here for injection of Faslodex. Given IM in B/L buttocks. Pt tolerated well. Suzette Rodriguez LPN documented in this [facility]07-06-2023 Nurse Note* Suzette Rodriguez LPN - 09/25/2022 9:54 AM EDT Pt here for injection of Faslodex. Given IM in B/L buttocks. Pt tolerated well. Suzette Rodriguez LPN documented in this [facility]06-07-2023 Nurse Note* Suzette Rodriguez LPN - 08/27/2022 10:43 AM EDT Pt here for injection of Faslodex. Given IM in B/L buttocks. Pt tolerated well. Suzette Rodriguez LPN documented in this [facility]04-12-2023 History of Present illness Narrative* Suzette Rodriguez LPN - 07/02/2022 11:16 AM EDT Pt here for injection of Faslodex. Given IM in B/L buttocks. Pt tolerated well. Suzette Rodriguez LPN documented in this [facility]03-15-2023 Nurse Note* Suzette Rodriguez LPN - 06/04/2022 9:45 AM EDT Pt here for injection of Faslodex. Given IM in B/L buttocks. Pt tolerated well. Suzette Rodriguez LPN documented in this [facility]03-01-2023 History of Present illness Narrative* Patricia Buck MD - 05/21/2022 5:03 PM EST Images from the original note were not included. SERVICE DATE: May 21, 2022 CHIEF COMPLAINT: Marina Moraes is a 76 year old female returning today for follow up of her metastatic breast cancer INTERVAL HISTORY: Very pleasant 76-year-old white lady seen for evaluation and management of metastatic breast cancer. She was diagnosed about 15 years ago with localized breast cancer. She did not have chemotherapy at the time since she refused it. It Tomiko and later on presenting as malignant pleural effusion. She underwent thoracentesis followed by talc pleurodesis. She has been maintained onFaslodex and Aromasin with stable and plateaued tumor markers. She also gets Zometa every 3 months Diagnostic Studies: Reviewed CURRENT MEDICATIONS: fluorometholone (FML LIQUID FILM) 0.1 % ophthalmic suspension^Use 1 Drop in the right eye three times daily.^Disp: 10 mL^Rfl: 2 propylene glycol (SYSTANE BALANCE OPHTHALMIC)^Use 1 Drop in eyes three times daily.^Disp: ^Rfl: multivitamin with minerals (HAIR,SKIN AND NAILS) tablet^Take 1 tablet by mouth every other day.^Disp: ^Rfl: Chlorhexidine Gluconate (PERIDEX) 0.12 % solution^Use 15 mL as instructed twice daily. Rinse aroundmouth for 30 seconds then expectorate^Disp: 473 mL^Rfl: 0 palbociclib (IBRANCE) 125 mg tablet^Take 1 tablet (125mg) by mouth once daily for 3 weeks on, followed by 1 week off. Take with or without food^Disp: 21 tablet^Rfl: 2 melatonin 3 mg tablet^Take 3 mg by mouth daily at bedtime. Take 3 tablets by mouth at bedtime as needed.^Disp: ^Rfl: elderberry fruit (ELDERBERRY ORAL)^Take by mouth. Daily gummy^Disp: ^Rfl: naproxen sodium (ANAPROX) 220 mg tablet^Take 440 mg by mouth as needed.^Disp: ^Rfl: calcium carb/vitamin D3/vit K1 (SOFT CHEWS CALCIUM ORAL)^Take 2 Units by mouth once daily. 2 chewables daily^Disp: ^Rfl: MULTIVITAMIN ORAL^Take 1 tablet by mouth once daily. ^Disp: ^Rfl: VENLAFAXINE XR 37.5 mg 24 hr capsule^Take 37.5 mg by mouth once daily.^Disp: ^Rfl: carvedilol (COREG) 12.5 mg tablet^Take 12.5 mg by mouth twice daily with meals. Take with food.^Disp: ^Rfl: 0 PRILOSEC 20 MG CAP^Take by mouth once daily.^Disp: ^Rfl: 0 cyanocobalamin, vitamin B-12, 5,000 mcg cap^Take by mouth once daily.^Disp: ^Rfl: (Patient not taking: No sig reported) senna (SENOKOT) 8.6 mg tab^Take 2 tablets by mouth once daily as needed.^Disp: 30 tablet^Rfl: 0 (Patient not taking: No sig reported) ALLERGIES/INTOLERANCES: ALLERGIES Allergen Reactions Contrast Dye [Iodin* Rash Sulfa (Sulfonamide * Rash, Hives, Unknown ROS: Denies bone pain or symptoms that suggest cord compression No fever night sweats or weight loss Occasional exertional dyspnea with no pleuritic pain or hemoptysis Denies nausea vomiting or any significant alteration of bowel habits PHYSICAL EXAM: BP 126/72 Pulse 58 Temp 36.9 C (98.5 F) Ht 150.7 cm (4' 11.35) Wt 95.7 kg (211 lb) SpO2 96% BMI 42.12 kg/m2 Body mass index is 42.12 kg/m . ECO No lymphadenopathy or palpable masses Lungs are clear to auscultation percussion DATA REVIEW: I personally reviewed the patient's data and medical records. PERTINENT LABS: Reviewed PERTINENT IMAGING: Reviewed ASSESSMENT AND Plan Metastatic breast cancer with stable response. We will consider changing her antiestrogen hopefullyto improve the response. We will also consider changing to Xgeva depending on logistics The patient was able to ask questions and these were answered in detail. Patricia Buck MD cc: Stephania Allen DO, DO documented in this encounter[facility] Center02-15-2023 History of Present illness Narrative* Suzette Rodriguez LPN - 05/07/2022 12:03 PM EST Pt here for injection of Faslodex. Given IM in B/L buttocks. Pt tolerated well. Suzette Rodriguez LPN documented in this encounter[facility] Center01-24-2023 Miscellaneous Notes* Telephone Encounter - STEPHEN Lomeli - 04/15/2022 8:28 AM EST SW received fax from [facility] this date stating pt has been approved for free Ibrance through 03/22/23. YAO sent letter to internal scanning. STEPHEN Lomeli-S documented in this encounterUc [facility] Center01-18-2023 Miscellaneous Notes* Letter - Mammography Coordinator - 04/09/2022 12:45 PM EST April 10, 2022 PID: [id number] Marina Moraes [address] [place] [address] Dear Ms. Moraes, Your recent breast imaging exam on 04/09/2022 showed a possible finding that requires additional imaging studies for a complete evaluation. Most such findings are probably benign (not cancer). Your mammogram demonstrates that you have dense breast tissue, which could hide abnormalities. Dense breast tissue, in and of itself, is a relatively common condition. Therefore, this information is not provided to cause undue concern; rather, it is to raise your awareness and promote discussion with your health care provider regarding the presence of dense breast tissue in addition to other riskfactors. If you have a healthcare provider who ordered/prescribed your screening mammogram: Please call [phone] or [phone]: [phone] to schedule an appointment for your additional imaging (if youhave not already done so). If you DO NOT have a healthcare provider (ie you did not have an order/prescription for your screening mammogram): Please call to schedule an appointment for your additional imaging (if you have not already done so). You must have an order/prescription from your physician when calling to schedule your appointment. If your order/prescription is not electronic, you must bring the hard copy with you on the day of your exam to avoid delays. Your imaging studies and reports are [facility] part of [facility] permanent medical record, and are available for your continuing care. Thank you for allowing us to help in meeting your health care needs. Sincerely, Dr. Rangel Interpreting Radiologist [facility] (Additional imaging) documented in this encounterUc Medical Center01-18-2023 Nurse Note* Suzette Rodriguez LPN - 04/09/2022 11:13 AM EST Pt here for injection of Faslodex. Given IM in B/L buttocks. pt experienced cough after her injection. She was given water. She denied any other symptom. Suzette Rodriguez LPN documented in this encounterU[facility] Center01-04-2023 Instructions* Patient Instructions* Keith Cao MD - 03/26/2022 4:27 PM EST Current Ophthalmic Meds prednisoLONE acetate (PRED FORTE, ECONOPRED PLUS) 1 % ophthalmic suspension Use 1 Drop in the righteye four times daily. keTORolac (ACULAR) 0.5 % ophthalmic solution Use 1 Drop in the right eye four times daily. keTORolac (ACULAR) 0.5 % ophthalmic solution Use 1 Drop in the left eye four times daily. prednisoLONE acetate (PRED FORTE) 1 % ophthalmic suspension Use 1 Drop in the left eye four times daily. Continue: Systane Complete solution instill 1 drop 3 times daily Both Eyes. Continue post-operative care with Dr. Martino. If you have any questions please contact our office at [phone]. After office hours or on the weekend, please call Dr. Cao on his cell phone at [phone]. documented in this encounterU[facility] Center01-04-2023 History of Present illness Narrative* Keith Cao MD - 03/26/2022 4:25 PM EST ASSESSMENT/PLAN: 1. Status post cataract extraction and insertion of intraocular lens of right eye - ICD9: V45.61, V43.1, ICD10: Z98.41, Z96.1 (primary diagnosis) 2. Status post cataract extraction and insertion of intraocular lens of left eye - ICD9: V45.61, V43.1, ICD10: Z98.42, Z96.1 Status Post Cataract Surgery with Monofocal Intraocular Lens Implant Right Eye (03/25/2022) Status Post Cataract Surgery with Monofocal Intraocular Lens Implant Left Eye (03/20/2022) Current Ophthalmic Meds prednisoLONE acetate (PRED FORTE, ECONOPRED PLUS) 1 % ophthalmic suspension Use 1 Drop in the righteye four times daily. keTORolac (ACULAR) 0.5 % ophthalmic solution Use 1 Drop in the right eye four times daily. keTORolac (ACULAR) 0.5 % ophthalmic solution Use 1 Drop in the left eye four times daily. prednisoLONE acetate (PRED FORTE) 1 % ophthalmic suspension Use 1 Drop in the left eye four times daily. Continue: Systane Complete solution instill 1 drop 3 times daily Both Eyes. Continue post-operative care with Dr. Martino. Keith Cao MD I have confirmed and edited as necessary the relevant ophthalmic history, review of systems, surgical history, and ophthalmological examination findings as obtained by the ophthalmic technical staff.I have seen and examined Marina Moraes. I have discussed the examination findings, diagnosis, and treatment options with Marina Moraes and/or her family. I have also reviewed and agree with the assessment and plan as stated above and agree with all its relevant components. I gave the patient the opportunity to ask questions about the findings, diagnosis, and treatment options. documented in this encounterUc [facility] Center01-03-2023 NotePost Operative Note: Post-Procedure Diagnosis: 1. Combined Form Age Related Cataract Right Eye Procedure: 1. Cataract Extraction with Intraocular Lens Implant Right Eye (Right Eye corrected for Intermediate vision) Surgeon: Keith Cao MD Resident/Fellow/Other Clerk Telegraph Service: None Estimated Blood Loss (mL): none Specimen: no Findings: 1. Combined Form Age Related Cataract Right Eye Operative Report Dictated: Dictation: not applicable - note contains Operative Report Operative Report: The patient was correctly identified and the patient's operative eye was marked with a marking pen and verified with the patient in the pre-operative area. The operative eye was dilated in the preoperative area. The patient was then taken to the operating room where timeout was performed before starting the procedure. Combined anesthesia with intravenous sedation and topical tetracaine eyedrops were instilled into the right eye. The operative eye was prepped and draped in the standard sterile ophthalmic fashion in preparation for ophthalmic surgery. A Rainer wire speculum was then inserted between the eyelids of the right eye and the operating microscope was placed over the right eye. A paracentesis incision was made approximately 30 away from the planned surgical incision site with the help of MVR blade. 1% lidocaine MPF with Phenylephrine 1.5% PF was injected into the anterior chamber through the paracentesis incision. A near limbal clear corneal incision was fashioned in the temporal quadrant just outside the vascular arcade and Viscoat was injected into anterior chamber to firm the eye. A bent needle cystotome was used and Utrata forceps were utilized to create a continuous curvilinear capsulorrhexis. BSS was injected beneath the anterior capsule to hydrodissect the nucleus from adjacent cortex and capsule. The residual cortex was then aspirated with irrigation/aspiration handpiece. The posterior capsule was then polished with the help of soft irrigation-aspiration tip. Provisc viscoelastic was then injected into the eye to reform the anterior chamber and to open the capsular bag. The intraocular lens implant was taken from its sterile wrapping, inspected under the surgical microscope and found to be in good condition. The intraocular lens implant 18.5D was injected into the capsule bag. The Provisc was then aspirated from the anterior chamber and from behind the intraocular lens implant. The anterior chamber was inflated with the help of BSS to moderate tension. And the edges of the surgical incision were then hydrated with the help of BSS. Vigamox was then injected into the anterior chamber and into the capsule bag through the paracentesis incision. The surgical wound was then inspected and found to be watertight. The wire speculum and drapes were then removed. Pred Forte eyedrops, Acular eyedrops and Betadine 5% sterile ophthalmic solution were instilled in the conjunctival sac. The patient tolerated the procedure well and was taken to recovery room in stable condition. Attestation: Note Completion: Attending AttestationI performed the procedure without a resident Electronic Signatures: Keith Cao) (Signed 25-Mar-2022 09:09) Authored: Post Operative Note, Note Completion Last Updated: 25-Mar-2022 09:09 by Keith Cao)[facility] 03-25-2022 NoteHistory & Physical Reviewed: I have reviewed the History and Physical dated: 21-Mar-2022 History and Physical reviewed and relevant findings noted. Patient examined to review pertinent physical findings.: No significant changes Home Medications Reviewed: no changes noted Allergies Reviewed: no changes noted ERAS (Enhanced Recovery After Surgery): ERAS Patient: no Consent: COVID-19 Consent: COVID-19 Risk ConsentSurgeon has reviewed hardin risks related to the risk of catalino COVID-19 and if they contract COVID-19 what the risks are. Electronic Signatures: Keith Cao) (Signed 25-Mar-2022 07:11) Authored: History & Physical Reviewed, ERAS, Consent, Note Completion Last Updated: 25-Mar-2022 07:11 by Keith Cao)[facility] 03-21-2022 History of Present illness Narrative* Keith Cao MD - 03/21/2022 4:31 PM EST ASSESSMENT/PLAN: 1. Combined forms of age-related cataract of right eye - ICD9: 366.19, ICD10: H25.811 (primary diagnosis) Cataract Presurgical Documentation Cataract: Right eye (OD) Current Visual Acuity Right Eye Distance SC 20/50 Left Eye Distance SC 20/30 Visual Function: Marina Amita states that the decline in vision from the cataract impedes her abilities as listed in the HPI, as well as other activities of daily living. Marina Moraes has confirmed that she is no longer able to function adequately on a day-to-day basis because of her current visual condition. Further, it is my medical opinion that the cataract is the primary cause, or at least a significantly contributory cause of her visual dysfunction. With uncomplicated cataract surgery and lens implantation, it is my expectation that her visual function and quality of life will improve, significantly. The risks, benefits, alternatives, personnel and complications of cataract surgery with lens implantation were discussed with Marina Moraes in detail. she appeared to understand and asked that I proceed with plans for surgery. PHYSICAL EXAM: Vital Signs: Blood pressure 130/72, pulse 68. Respiratory: Normal breath sounds, no wheezing. CARD: Normal heart sounds 1 & 2, normal sinus rhythm. Patient wishes to have traditional cataract surgery with basic Intraocular lens - Right eye on 03/25/2022 at [facility]. Patient wishes to have cataract surgery with the option stated above. Patient understands that an intraocular lens implant does not necessarily replace the need for glasses. Patient understands that it is impossible for the surgeon to inform him/her of every possible complication that may occur. The surgeon has answered all of the patient's questions. Patient understands that if he/she has a mature or dense cataract, pseudoexfoliation cataract, or history of use of Flomax, he/she may require the use of Maluyugin Ring and/or Vision Blue during surgery. Patient understands the risks, benefits, and alternatives to surgery. 2. 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 Punctate keratitis of both eyes - ICD9: 370.21, ICD10: H16.143 4. Dry eye syndrome of both eyes - ICD9: 375.15, ICD10: H04.123 Continue: Current Ophthalmic Meds fluorometholone (FML LIQUID FILM) 0.1 % ophthalmic suspension Use 1 Drop in the right eye three times daily. Systane Complete Artificial Tears - Use 1 Drop into both eyes three times a day. 5. Status post cataract extraction and insertion of intraocular lens of left eye - ICD9: V45.61, V43.1, ICD10: Z98.42, Z96.1 Intraocular lens in good position, Left eye Continue: Current Ophthalmic Meds keTORolac (ACULAR) 0.5 % ophthalmic solution Use 1 Drop in the left eye four times daily. prednisoLONE acetate (PRED FORTE) 1 % ophthalmic suspension Use 1 Drop in the left eye four times daily. 6. Unspecified sleep apnea - ICD9: 780.57, ICD10: G47.30 7. Tachycardia - ICD9: 785.0, ICD10: R00.0 8. Malignant neoplasm of upper-outer quadrant of right breast in female, estrogen receptor positive(HCC) - ICD9: 174.4, V86.0, ICD10: C50.411, Z17.0 Continue care with primary care physician I have confirmed and edited as necessary the relevant ophthalmic history, review of systems, surgical history, and ophthalmological examination findings as obtained by the ophthalmic technical staff.I have seen and examined Marina Moraes. I have discussed the examination findings, diagnosis, and treatment options with Marina Moraes and/or her family. I have also reviewed and agree with the assessment and plan as stated above and agree with all its relevant components. I gave the patient the opportunity to ask questions about the findings, diagnosis, and treatment options. Keith Cao MD documented in this encounterUc [facility] Center12-30-2022 Instructions* Patient Instructions* Keith Cao MD - 03/21/2022 4:14 PM EST Continue: Current Ophthalmic Meds keTORolac (ACULAR) 0.5 % ophthalmic solution Use 1 Drop in the left eye four times daily. prednisoLONE acetate (PRED FORTE) 1 % ophthalmic suspension Use 1 Drop in the left eye four times daily. fluorometholone (FML LIQUID FILM) 0.1 % ophthalmic suspension Use 1 Drop in the right eye three times daily. Systane Complete Artificial Tears - Use 1 Drop into both eyes three times a day. If you have any questions please contact our office at [phone]. After office hours or on the weekend, please call Dr. Cao on his cell phone at [phone]. documented in this encounterUc Medical Center12-29-2022 NotePost Operative Note: Post-Procedure Diagnosis: 1. Combined Form Age Related Cataract Left Eye Procedure: 1. Cataract Extraction with Intraocular Lens Implant Left Eye Surgeon: Keith Cao MD Resident/Fellow/Other Clerk Telegraph Service: None Estimated Blood Loss (mL): none Specimen: no Findings: 1. Combined Form Age Related Cataract Left Eye Operative Report Dictated: Dictation: not applicable - note contains Operative Report Operative Report: The patient was correctly identified in the preop area and the operative eye was marked with a marking pen. The operative eye was dilated in the preoperative area. The patient was then taken to the operating room where timeout was performed before starting the procedure. Combined anesthesia with intravenous sedation and topical tetracaine eyedrops were given the left eye. The operative eye was prepped and draped in the standard sterile ophthalmic fashion in preparation for ophthalmic surgery. A Rainer wire speculum was then inserted between the eyelids of the left eye and the operating microscope was placed over the left eye. A paracentesis incision was made approximately 30 away from the planned surgical incision site with the help of MVR blade. 1% lidocaine MPF with Phenylephrine 1.5% PF was injected into the anterior chamber through the paracentesis incision. A near limbal clear corneal incision was fashioned in the temporal quadrant just outside the vascular arcade and Viscoat was injected into anterior chamber to firm the eye. A bent needle cystotome was used and Utrata forceps were utilized to create a continuous curvilinear capsulorrhexis. BSS was injected beneath the anterior capsule to hydrodissect the nucleus from adjacent cortex and capsule. The residual cortex were then aspirated with irrigation aspiration handpiece. The posterior capsule was then polished with the help of soft irrigation-aspiration tip. Provisc viscoelastic was then injected into the eye to reform the anterior chamber and to open the capsular bag. The intraocular lens implant was taken from its sterile wrapping, inspected under the surgical microscope and found to be in good condition. The intraocular lens implant 15.5D was injected into the capsule bag. The Provisc was then aspirated from the anterior chamber and from behind the intraocular lens implant. The anterior chamber was inflated with the help of BSS to moderate tension. The edges of the surgical incision were then hydrated with the help of BSS. Vigamox was then injected into the anterior chamber and into the capsule bag through the paracentesis incision. The surgical wound was then inspected and found to be watertight. The wire speculum and drapes were then removed. Pred Forte eyedrops, Acular eyedrops and Betadine 5% sterile ophthalmic solution were instilled in the conjunctival sac. The patient tolerated the procedure well and was taken to recovery room in stable condition. Attestation: Note Completion: Attending AttestationI performed the procedure without a resident Electronic Signatures: Keith Cao) (Signed 20-Mar-2022 11:04) Authored: Post Operative Note, Note Completion Last Updated: 20-Mar-2022 11:04 by Keith Cao)[facility] 03-20-2022 NoteHistory & Physical Reviewed: I have reviewed the History and Physical dated: 12-Mar-2022 History and Physical reviewed and relevant findings noted. Patient examined to review pertinent physical findings.: No significant changes Home Medications Reviewed: no changes noted Allergies Reviewed: no changes noted ERAS (Enhanced Recovery After Surgery): ERAS Patient: no Consent: COVID-19 Consent: COVID-19 Risk ConsentSurgeon has reviewed hardin risks related to the risk of catalino COVID-19 and if they contract COVID-19 what the risks are. Electronic Signatures: Keith Cao) (Signed 20-Mar-2022 09:36) Authored: History & Physical Reviewed, ERAS, Consent, Note Completion Last Updated: 20-Mar-2022 09:36 by Keith Cao)[facility] 03-12-2022 Nurse Note* Suzette Rodriguez LPN - 03/12/2022 12:21 PM EST Pt here for injection of Faslodex. Given IM in B/L buttocks. Pt tolerated well. Suzette Rodriguez LPN documented in [facility]22 NoteHNO ID: [id number] Author: Tatum Santana MD Service: ? Author Type: Physician Type: Progress Notes Filed: 02/27/2022 11:59 AM Note Text: Marina Moraes is a 76 year old female presents for evaluation of leg pain. 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 Her BMI is 41. She had a RLE US done 12/2021 that showed no evidence of DVT. She was referred by her pcp for tender and raised on legs. The pt complains of some pain in her B ankles as well as some superficial bumps she has noticed that cause her discomfort when she is having the area massaged. She denies claudication or rest pain, though she does occasionally get a charliehorse at night. She has no tissue loss. She has no swelling in her legs and denies swelling. She does wear compression stockngs because they feel good to her and she was encouraged to keep doing this. She has easily palpable DP/PT pulses and I have a low suspicion of significant arterial disease. She dose have some superficial masses that you can feel mildly under the skin that are without infection or inflammation. I suspect they might be c/w something like a benign lymphoma, but will defer to pcp for further workup. HISTORIES: PAST MEDICAL HISTORY Diagnosis Date Bone metastases (HCC) 02/15/2019 Esophageal reflux Malignant neoplasm of upper-outer quadrant of right breast in female, estrogen receptor positive (HCC) 01/13/2019 Malignant neoplasm of upper-outer quadrant of right breast in female, estrogen receptor positive (HCC) 01/13/2019 Unspecified sleep apnea PAST SURGICAL HISTORY Procedure Laterality Date BREAST RECONSTRUCTION 2011 right BX BREAST PERC VACUUM/ROTN 04/18/13 left - benign BX/EXC LYMPH NODE OPEN DEEP AXILLARY NODE 04/20/2007 Negative HERNIA REPAIR HX 08/18/2016 HYSTERECTOMY HX 10/30 MASTECTOMY, PARTIAL 03/04/2007 Right upper outer quadrant PAST SURGICAL HISTORY OF 2006 left wrist fx ORIF PAST SURGICAL HISTORY OF 1997 left wrist FX - ex-fix PAST SURGICAL HISTORY OF tubal ligation Social History Tobacco Use Smoking status: Former Types: Cigarettes Quit date: 03/18/1979 Years since quittin.9 Smokeless tobacco: Never Tobacco comments: Pt smoked 1 cigarette daily on AND off x 10 years. Vaping Use Vaping Use: Never used Substance Use Topics Alcohol use: Yes Comment: occ Drug use: No MEDICATIONS: Current Outpatient Medications Medication Sig propylene glycol (SYSTANE BALANCE OPHTHALMIC) Use 1 Drop in eyes three times daily. multivitamin with minerals (HAIR,SKIN AND NAILS) tablet Take 1 tablet by mouth every other day. Chlorhexidine Gluconate (PERIDEX) 0.12 % solution Use 15 mL as instructed twice daily. Rinse around mouth for 30 seconds then expectorate fluorometholone (FML LIQUID FILM) 0.1 % ophthalmic suspension Use 1 Drop in both eyes three times daily. palbociclib (IBRANCE) 125 mg tablet Take 1 tablet (125mg) by mouth once daily for 3 weeks on, followed by 1 week off. Take with or without food cyanocobalamin, vitamin B-12, 5,000 mcg cap Take by mouth once daily. melatonin 3 mg tablet Take two tablets by mouth at bedtime as needed. elderberry fruit (ELDERBERRY ORAL) Take by mouth. Daily gummy naproxen sodium (ANAPROX) 220 mg tablet Take 440 mg by mouth as needed. calcium carb/vitamin D3/vit K1 (SOFT CHEWS CALCIUM ORAL) Take 2 Units by mouth once daily. 2 chewables daily senna (SENOKOT) 8.6 mg tab Take 2 tablets by mouth once daily as needed. MULTIVITAMIN ORAL Take 1 tablet by mouth once daily. VENLAFAXINE XR 37.5 mg 24 hr capsule Take 37.5 mg by mouth once daily. carvedilol (COREG) 12.5 mg tablet Take one(1) tablet two(2) times daily. PRILOSEC 20 MG CAP Take by mouth once daily. No current facility-administered medications for this visit. ALLERGIES: ALLERGIES Allergen Reactions Contrast Dye [Iodin* Rash Sulfa (Sulfonamide * Rash, Hives, Unknown REVIEW OF SYSTEMS: All other ROS: negative PHYSICAL EXAM: General appearance: Normal, healthy, well nourished, alert and cooperative individual, in no acute distress. Skin: No lesions, rashes or ulcerations; normal color and turgor. Pulmonary: No wheezing or rhonchi. Breathing unlabored on RA Coronary: RRR Lower Extremities: Feet and toes warm Negative edema Negative Ulcers Neuro: Awake, alert, and oriented., Gait normal. Sensation grossly intact., CN II-XII grossly intact. PULSES: Easily palpable DP/PT pulse IMPRESSION: BLE discomfort No evidence of significant arterial or venous disease PLAN: Continue compression and elevation Continue workup of source of discomfort and/or masses Follow up prn if new or changing sx or concerns Tatum Santana MD I spent 30 minutes in the visit, with more than 50% of the total [id number] time of the visit in counseling / coordination of care.[facility]12-08-2022 History of Present illness Narrative* Tatum Santana MD - 02/27/2022 11:37 AM EST Marina Moraes is a 76 year old female presents for evaluation of leg pain. 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 Her BMI is 41. She had a RLE US done 12/2021 that showed no evidence of DVT. She was referred by her pcp for tender and raised on legs. The pt complains of some pain in her B ankles as well as some superficial bumps she has noticed that cause her discomfort when she is having the area massaged. She denies claudication or rest pain, though she does occasionally get a charliehorse at night. Shehas no tissue loss. She has no swelling in her legs and denies swelling. She does wear compression stockngs because they feel good to her and she was encouraged to keep doing this. She has easily palpable DP/PT pulses and I have a low suspicion of significant arterial disease. She dose have some superficial masses that you can feel mildly under the skin that are without infection or inflammation. I suspect they might be c/w something like a benign lymphoma, but will defer to pcp for further workup. HISTORIES: PAST MEDICAL HISTORY Diagnosis Date Bone metastases (HCC) 02/15/2019 Esophageal reflux Malignant neoplasm of upper-outer quadrant of right breast in female, estrogen receptor positive (HCC) 01/13/2019 Malignant neoplasm of upper-outer quadrant of right breast in female, estrogen receptor positive (HCC) 01/13/2019 Unspecified sleep apnea PAST SURGICAL HISTORY Procedure Laterality Date BREAST RECONSTRUCTION 2011 right BX BREAST PERC VACUUM/ROTN 04/18/13 left - benign BX/EXC LYMPH NODE OPEN DEEP AXILLARY NODE 04/20/2007 Negative HERNIA REPAIR HX 08/18/2016 HYSTERECTOMY HX 10/30 MASTECTOMY, PARTIAL 03/04/2007 Right upper outer quadrant PAST SURGICAL HISTORY OF 2006 left wrist fx ORIF PAST SURGICAL HISTORY OF 1997 left wrist FX - ex-fix PAST SURGICAL HISTORY OF tubal ligation Social History Tobacco Use Smoking status: Former Types: Cigarettes Quit date: 03/18/1979 Years since quittin.9 Smokeless tobacco: Never Tobacco comments: Pt smoked 1 cigarette daily on & off x 10 years. Vaping Use Vaping Use: Never used Substance Use Topics Alcohol use: Yes Comment: occ Drug use: No MEDICATIONS: Current Outpatient Medications Medication Sig propylene glycol (SYSTANE BALANCE OPHTHALMIC) Use 1 Drop in eyes three times daily. multivitamin with minerals (HAIR,SKIN AND NAILS) tablet Take 1 tablet by mouth every other day. Chlorhexidine Gluconate (PERIDEX) 0.12 % solution Use 15 mL as instructed twice daily. Rinse aroundmouth for 30 seconds then expectorate fluorometholone (FML LIQUID FILM) 0.1 % ophthalmic suspension Use 1 Drop in both eyes three times daily. palbociclib (IBRANCE) 125 mg tablet Take 1 tablet (125mg) by mouth once daily for 3 weeks on, followed by 1 week off. Take with or without food cyanocobalamin, vitamin B-12, 5,000 mcg cap Take by mouth once daily. melatonin 3 mg tablet Take two tablets by mouth at bedtime as needed. elderberry fruit (ELDERBERRY ORAL) Take by mouth. Daily gummy naproxen sodium (ANAPROX) 220 mg tablet Take 440 mg by mouth as needed. calcium carb/vitamin D3/vit K1 (SOFT CHEWS CALCIUM ORAL) Take 2 Units by mouth once daily. 2 chewables daily senna (SENOKOT) 8.6 mg tab Take 2 tablets by mouth once daily as needed. MULTIVITAMIN ORAL Take 1 tablet by mouth once daily. VENLAFAXINE XR 37.5 mg 24 hr capsule Take 37.5 mg by mouth once daily. carvedilol (COREG) 12.5 mg tablet Take one(1) tablet two(2) times daily. PRILOSEC 20 MG CAP Take by mouth once daily. No current facility-administered medications for this visit. ALLERGIES: ALLERGIES Allergen Reactions Contrast Dye [Iodin* Rash Sulfa (Sulfonamide * Rash, Hives, Unknown REVIEW OF SYSTEMS: All other ROS: negative PHYSICAL EXAM: General appearance: Normal, healthy, well nourished, alert and cooperative individual, in no acute distress. Skin: No lesions, rashes or ulcerations; normal color and turgor. Pulmonary: No wheezing or rhonchi. Breathing unlabored on RA Coronary: RRR Lower Extremities: Feet and toes warm Negative edema Negative Ulcers Neuro: Awake, alert, and oriented., Gait normal. Sensation grossly intact., CN II-XII grossly intact. PULSES: Easily palpable DP/PT pulse IMPRESSION: BLE discomfort No evidence of significant arterial or venous disease PLAN: Continue compression and elevation Continue workup of source of discomfort and/or masses Follow up prn if new or changing sx or concerns Tatum Santana MD I spent 30 minutes in the visit, with more than 50% of the total [id number] time of the visit in counseling / coordination of care. documented in this encounter[facility]12-[facility]-2022 History of Present illness Narrative* Stephania Hayes MD - 02/26/2022 3:04 PM EST PATIENT NAME: Marina Moraes. CLINIC NO: [id number]. ATTENDING PHYSICIAN: Stephania Hayes MD. DATE OF SERVICE: 02/26/2022 DIAGNOSIS: Metastatic breast cancer; with malignant right pleural effusion -Status post pleurodesis & Skeletal metastasis L2. HPI: 76-year-old postmenopausal lady who had a partial mastectomy and sentinel lymph node sampling on April 20, 2017 for a stage Ib, pT1b,No Mx moderately differentiated, 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 Initial FISH for HER-2 was equivocal, repeat should showed sample to be nonamplified. Patient had decided not to proceed with chemotherapy at that time and an Oncotype DX was not performed. Patient presented with several month history of epigastric right upper quadrant pain along with shortness of breath. Evaluation showed a right pleural effusion, but ultrasound of the gallbladder showed no evidence of cholecystitis. She had multiple thoracentesis from November and most recently in 2 weeks. 900 cc of malignant fluid removed and cytology was positive for malignant cells consistent with metastatic carcinoma with breast primary. Estrogen and progesterone receptor were both positive, HER-2/roderick negative mamoglobin was positive focally. Patient complaining of increased shortness of breath and right shoulder pain for the last couple days. She is concerned that her malignant effusion has come back since 2 weeks ago. Patient has no cough or shortness of breath. She has pruritic chest pain but no bone pain. Patient has no headaches orneurological symptom. She denies change in weight or appetite. No fever, chills, night sweats or fatigue. She had not had a mammogram for 2 years but denies any problem with her breasts. She has no lymphedema. She has family history of prostate cancer and breast cancer in multiple family members. Oncological history: Completed radiation therapy on 07/16/2007 Started AI therapy July 2007. Changed to tamoxifen March 2008 secondary to myalgia or arthralgia. Completed 5 years of tamoxifen in July 2012 Current treatment: Fulvestrant and Ibrance Zoledronic acid IV every 3 months Interim history: She is doing well Faslodex injection and Ibrance. No bone pain or jaw pain. 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 She has chronic lymphedema from her mastectomy. She has no chest pain, cough or shortness of breath. She has occasional stomatitis, but no diarrhea. Her weight and appetite is stable. Her CT scan and bone scan in December showed complete remission with sclerotic change and increase activity at L2 All medications & allergies updated and reviewed by me. REVIEW OF SYSTEMS: CONSTITUTIONAL: No fevers, chills, nightsweats, unintended weight loss HEENT: Denies frequent or severe heaches, nasal congestion/sinus symptoms, problematic allergy problems. EYES: No diplopia or blurry vision. CARDIOVASCULAR: No chest pain, dyspnea, palpitations, orthopnea, PND, ankle edema. PULM: No dyspnea, unexplained cough. GI: No dysphagia/odynophagia, problematic reflux, constipation, diarrhea, changes in stool habits, hematochezia, melena. : No new urinary complaints, including dysuria, gross hematuria or pyuria. NEURO: No new balance problems, peripheral weakness/paresthesias or numbness of concern. MUSC-SKEL: No new joint pain, swelling, or erythema. PSY: No concerns regarding depression, anxiety or panic. INTEGUMENTARY: No new skin changes (rash, new or changing mole, new growth) PHYSICAL EXAMINATION: 76-year-old postmenopausal lady in no acute distress Performance status 90% BP 124/78 Pulse 60 Temp (Src) 98.9 (Temporal) Wt 209 lb 8 oz (95.0kg) SpO2 96% HEENT: Head is normocephalic, atraumatic. Sclerae white, conjunctivae pink. PEERL. EOMs are intact.Oropharynx is benign. LYMPHATICS: There is no palpable adenopathy in the neck, supraclavicular region, axillae, or groin. BREASTS: Without skin dimpling, nipple discharge or masses. Right lumpectomy site with radiation changes; no mass/nodule b/l, surgical scars b/l well healed. LUNGS: Lungs are clear to auscultation. Slightly decreased right base. HEART: Heart is normal without murmurs, gallops, or rubs. ABDOMEN: Soft and nontender without organomegaly. No masses can be palpated. EXTREMITIES: Are without edema. + Mild lymphedema of right arm & hand NEUROLOGIC: Exam is physiologic. Nonfocal. LABORATORY DATA: Component Latest Ref Rng & Units 02/26/2022 WBC 3.70 - 11.00 k/uL 3.18 (L) RBC 3.90 - 5.20 m/uL 2.85 (L) Hemoglobin 11.5 - 15.5 g/dL 10.8 (L) Hematocrit 36.0 - 46.0 % 32.5 (L) MCV 80.0 - 100.0 fL 114.0 (H) MCH 26.0 - 34.0 pg 37.9 (H) MCHC 30.5 - 36.0 g/dL 33.2 RDW-CV 11.5 - 15.0 % 13.7 Platelet Count 150 - 400 k/uL 261 MPV 9.0 - 12.7 fL 10.1 Recheck Done Neut% % 65.4 Abs Neut (ANC) 1.45 - 7.50 k/uL 2.08 Lymph% % 14.2 Abs Lymph 1.00 - 4.00 k/uL 0.45 (L) [place]% % 14.5 Abs [place] <0.87 k/uL 0.46 Eosin% % 1.9 Abs Eosin <0.46 k/uL 0.06 Baso% % 3.1 Abs Baso <0.11 k/uL 0.10 Immature Gran % % 0.9 IMMATURE GRANS (ABS) <0.10 k/uL 0.03 NRBC /100 WBC 0.6 Absolute nRBC <0.01 k/uL 0.02 (H) Platelet Estimate Adequate Red Cell Morph Reviewed: see results of individual morphologies Polychromasia Slight Ovalocytes Few RBC Fragments None Seen Few (A) DTYPE Auto Component Latest Ref Rng & Units 09/10/2021 12/04/2021 02/26/2022 CA27.29 <38.6 U/mL 68.6 (H) 67.0 (H) 67.4 (H) Breast CA 15-3 <26.0 U/mL 61.6 (H) 56.2 (H) 60.8 (H) Component Latest Ref Rng & Units 02/26/2022 Protein, Total 6.3 - 8.0 g/dL 6.6 Albumin 3.9 - 4.9 g/dL 4.1 Calcium 8.5 - 10.2 mg/dL 9.3 Bilirubin, Total 0.2 - 1.3 mg/dL 0.3 Alkaline Phosphatase 34 - 123 U/L 89 AST 13 - 35 U/L 20 ALT 7 - 38 U/L 10 Glucose 74 - 99 mg/dL 97 BUN 7 - 21 mg/dL 13 Creatinine 0.58 - 0.96 mg/dL 0.90 Sodium 136 - 144 mmol/L 139 Potassium 3.7 - 5.1 mmol/L 4.4 Chloride 97 - 105 mmol/L 102 CO2 22 - 30 mmol/L 29 Anion Gap 9 - 18 mmol/L 8 (L) eGFR >=60 mL/min/1.73m 67 CT chest abdomen pelvis showed no metastatic disease. Sclerotic bone lesion consistent with treatedor healed metastasis. Bone scan:Slightly increasing uptake at L2, the remaining findings are stable compared to 04/05/2020. 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 1) metastatic ER positive /HER2 negative breast cancer -Stable disease on Faslodex and Ibrance. She is asymptomatic with no bone pain or shortness of breath and tolerating treatment except for moderate neutropenia, anemia, and mild stomatitis. 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 PLAN: -Continue Faslodex 500mg IM every 4 weeks & Ibrance 150mg daily; day 1-21 every 28 days -Continue Zometa every 3 months -Peridex mouthwash twice daily - Repeat CBC, CMP, CA 27-29, CA 15-3 and office visit in 3 months - Follow-up with PCP and see dentist for stomatitis Portions of this documentation were copied and pasted from previous office visit notes in order to provide a cohesive continuity of the history. The note has been reviewed and edited and updated as necessary. Stephania Hayse MD Cc: Dot Allen DO documented in this encounter[facility]12-[facility]-2022 History of Present illness Narrative* Keith Cao MD - 02/24/2022 9:27 AM EST ASSESSMENT/PLAN: 1. Conjunctival hemorrhage, right eye - ICD9: 372.72, ICD10: H11.31 (primary diagnosis) Ice Packs 4 times daily for 2 weeks 2. 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 Marina Moraes has confirmed that she is no longer able to function adequately on a day-to-day basis because of her current visual condition. Further, it is my medical opinion that the cataract is the primary cause, or at least a significantly contributory cause of her visual dysfunction. With uncomplicated cataract surgery and lens implantation, it is my expectation that her visual function and quality of life will improve, significantly. The risks, benefits, alternatives, personnel and complications of cataract surgery with lens implantation were discussed with Marina Moraes in detail. she appeared to understand and asked that I proceed with plans for surgery. PHYSICAL EXAM: Vital Signs: Blood pressure 130/72, pulse 68. Respiratory: Normal breath sounds, no wheezing. CARD: Normal heart sounds 1 & 2, normal sinus rhythm. Patient wishes to have traditional cataract surgery with basic Intraocular lens - Left eye on 03/20/2022 at [facility]. Patient wishes to have cataract surgery withthe option stated above. Patient understands that an intraocular lens implant does not necessarily replace the need for glasses. Patient understands that it is impossible for the surgeon to inform him/her of every possible complication that may occur. The surgeon has answered all of the patient's questions. Patient understands that if he/she has a mature or dense cataract, pseudoexfoliation cataract, or history of use of Flomax, he/she may require the use of Maluyugin Ring and/or Vision Blue during surgery. Patient understands the risks, benefits, and alternatives to surgery. 3. Combined forms of age-related cataract of right eye - ICD9: 366.19, ICD10: H25.811 Plan cataract surgery in Right eye once Left eye is stable 4. 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 Punctate keratitis, bilateral - ICD9: 370.21, ICD10: H16.143 6. Dry eye syndrome, bilateral - ICD9: 375.15, ICD10: H04.123 Continue: Inveltys 1 drop twice daily both eyes until gone, then switch to FML eyedrops- Instill 1 drop into both eyes three times a day Systane Complete 1 drop in both three times daily 7. Unspecified sleep apnea - ICD9: 780.57, ICD10: G47.30 8. Tachycardia - ICD9: 785.0, ICD10: R00.0 9. Malignant neoplasm of upper-outer quadrant of right breast in female, estrogen receptor positive(HCC) - ICD9: 174.4, V86.0, ICD10: C50.411, Z17.0 Manage care with primary care physician Keith Cao MD documented in this encounter[facility]11-29-[facility]22 History of Present illness Narrative* Jesusita Vera - 02/18/2022 9:55 AM EST [facility] Refill Assessment Medication(s): Ibrance Patient's current medication list and adherence status to current therapy were reviewed by Specialty Pharmacy clinical pharmacist to identify any new drug interactions or non-compliance to therapy. Therapy continues to be appropriate for disease, patient response, and medical condition. Verification of therapeutic benefit and effectiveness with current therapy was completed. Adverse events, barriers in adherence, and side effects were assessed and addressed if applicable. Will proceed with refill with no changes in therapy - patient progressing towards achieving therapeutic goals based on medication- specific laboratory parameters, disease state markers and outcomes. Erp Analyst Assessment Patient confirmed: Yes Med/dose confirmed: Yes Supplies needed: No supplies needed Missed doses: No Estimated days supply on hand: 0 Next cycle/dose due: 02/24/22 Copay amount: 0 Copay form of payment: Credit card on file Payment confirmed: Yes Delivery method: FedEx Signature required: No Delivery address: [address] [place], [place] [id number] Delivery date: 02/21/22 Questions or concerns for the pharmacist?: No [facility] Assessment - Hematology/Oncology: Assessment to use: Refill Vaccination Assessment: Date of influenza vaccination reminder: 11/28/2021 Date of most recent vaccination assessment: 11/28/2021 Jesusita Vera documented in this encounter[facility] Center11-28-2022 History of Present illness Narrative* Keith Cao MD - 02/17/2022 11:55 AM EST Patient surgically and medically cleared by Dr. Allen, DO ASSESSMENT/PLAN: 1. 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 Marina Moraes has confirmed that she is no longer able to function adequately on a day-to-day basis because of her current visual condition. Further, it is my medical opinion that the cataract is the primary cause, or at least a significantly contributory cause of her visual dysfunction. With uncomplicated cataract surgery and lens implantation, it is my expectation that her visual function and quality of life will improve, significantly. The risks, benefits, alternatives, personnel and complications of cataract surgery with lens implantation were discussed with Marina Moraes in detail. she appeared to understand and asked that I proceed with plans for surgery. PHYSICAL EXAM: Vital Signs: Blood pressure 130/72, pulse 68. Respiratory: Normal breath sounds, no wheezing. CARD: Normal heart sounds 1 & 2, normal sinus rhythm. Patient wishes to have traditional cataract surgery with basic Intraocular lens - Left eye on 03/20/2022 at [facility]. Patient wishes to have cataract surgery withthe option stated above. Patient understands that an intraocular lens implant does not necessarily replace the need for glasses. Patient understands that it is impossible for the surgeon to inform him/her of every possible complication that may occur. The surgeon has answered all of the patient's questions. Patient understands that if he/she has a mature or dense cataract, pseudoexfoliation cataract, or history of use of Flomax, he/she may require the use of Maluyugin Ring and/or Vision Blue during surgery. Patient understands the risks, benefits, and alternatives to surgery. 2. Combined forms of age-related cataract of right eye - ICD9: 366.19, ICD10: H25.811 Plan cataract surgery in Right eye once Left eye is stable 3. 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 Punctate keratitis, bilateral - ICD9: 370.21, ICD10: H16.143 5. Dry eye syndrome, bilateral - ICD9: 375.15, ICD10: H04.123 Continue: Inveltys 1 drop twice daily both eyes until gone, then switch to FML eyedrops- Instill 1 drop into both eyes three times a day Systane Complete 1 drop in both three times daily 6. Unspecified sleep apnea - ICD9: 780.57, ICD10: G47.30 7. Tachycardia - ICD9: 785.0, ICD10: R00.0 8. Malignant neoplasm of upper-outer quadrant of right breast in female, estrogen receptor positive(HCC) - ICD9: 174.4, V86.0, ICD10: C50.411, Z17.0 Manage care with primary care physician I have confirmed and edited as necessary the relevant ophthalmic history, review of systems, surgical history, and ophthalmological examination findings as obtained by the ophthalmic technical staff.I have seen and examined Marina Moraes. I have discussed the examination findings, diagnosis, and treatment options with Marina Moraes and/or her family. I have also reviewed and agree with the assessment and plan as stated above and agree with all its relevant components. I gave the patient the opportunity to ask questions about the findings, diagnosis, and treatment options. Keith Cao MD documented in this encounterUc [facility] Center11-28-2022 Instructions* Patient Instructions* Keith Cao MD - 02/17/2022 11:48 AM EST Continue: Inveltys 1 drop twice daily both eyes until gone, then switch to FML eyedrops- Instill 1 drop into both eyes three times a day (prescription waiting at [facility] in [place]) Systane Complete 1 drop in both three times daily If you have any questions please contact our office at [phone]. After office hours or on the weekend, please call Dr. Cao on his cell phone at [phone]. documented in this encounterU[facility] Center11-23-2022 Miscellaneous Notes* Telephone Encounter - Maryam Gerber LPN - 02/12/2022 4:09 PM EST A copy of this note was faxed to Dr. Allen. Maryam Gerber LPN * Telephone Encounter - Stephania Hayes MD - 02/12/2022 3:47 PM EST She is on Ibrance, therefore her WBC has been low for the last 3 years. She could go ahead with cataract surgery. Stephania Hayes MD * Telephone Encounter - Suzette Rodriguez LPN - 02/12/2022 3:07 PM EST Labs received, will give to Dr Hayes for review. Suzette Rodriguez LPN * Telephone Encounter - Pauline Dumont - 02/12/2022 12:[address] Allen's office called. They are sending/or have sent recent labs for pt. They indicated that they need to know if Dr. Hayes would clear the pt for cataract surgery (not scheduled yet) based on the results of the labs they are sending. documented in this encounterUc [facility] Center11-23-2022 Nurse Note* Suzette Rodriguez LPN - 02/12/2022 11:26 AM EST Pt here for injection of faslodex. Given IM in B/L buttocks. Pt tolerated well. Suzette Rodriguez LPN documented in this encounter[facility]c [facility] Center11-04-2022 History of Past illness Narrative* Problem Noted Date Resolved Date Combined forms of age-related cataract of left e ye 01/24/2022 03/21/2022 documented as of this encounter (statuses as of 03/26/2022) [address]04-2022 History of Past illness Narrative* Problem Noted Date Resolved Date Combined forms of age-related cataract of left e ye 01/24/2022 03/21/2022 documented as of this encounter (statuses as of 03/28/2022) [address]04-2022 History of Past illness Narrative* Problem Noted Date Resolved Date Combined forms of age-related cataract of left e ye 01/24/2022 03/21/2022 documented as of this encounter (statuses as of 04/09/2022) [address]04-2022 History of Past illness Narrative* Problem Noted Date Resolved Date Combined forms of age-related cataract of left e ye 01/24/2022 03/21/2022 documented as of this encounter (statuses as of 04/11/2022) [place] [address]04-2022 History of Past illness Narrative* Problem Noted Date Resolved Date Combined forms of age-related cataract of left e ye 01/24/2022 03/21/2022 documented as of this encounter (statuses as of 04/15/2022) [place] [address]22 History of Past illness Narrative* Problem Noted Date Resolved Date Combined forms of age-related cataract of left e ye 01/24/2022 03/21/2022 documented as of this encounter (statuses as of 05/07/2022) [address]04-2022 History of Past illness Narrative* Problem Noted Date Resolved Date Combined forms of age-related cataract of left e ye 01/24/2022 03/21/2022 documented as of this encounter (statuses as of 05/20/2022) [address]04-2022 History of Past illness Narrative* Problem Noted Date Resolved Date Combined forms of age-related cataract of left e ye 01/24/2022 03/21/2022 documented as of this encounter (statuses as of 05/22/2022) [address]04-2022 History of Past illness Narrative* Problem Noted Date Resolved Date Combined forms of age-related cataract of left e ye 01/24/2022 03/21/2022 documented as of this encounter (statuses as of 05/22/2022) [address]04-2022 History of Past illness Narrative* Problem Noted Date Resolved Date Combined forms of age-related cataract of left e ye 01/24/2022 03/21/2022 documented as of this encounter (statuses as of 06/04/2022) [address]04-2022 History of Past illness Narrative* Problem Noted Date Resolved Date Combined forms of age-related cataract of left e ye 01/24/2022 03/21/2022 documented as of this encounter (statuses as of 07/03/2022) [address]04-2022 History of Past illness Narrative* Problem Noted Date Resolved Date Combined forms of age-related cataract of left e ye 01/24/2022 03/21/2022 documented as of this encounter (statuses as of 07/30/2022) [address]04-2022 History of Past illness Narrative* Problem Noted Date Resolved Date Combined forms of age-related cataract of left e ye 01/24/2022 03/21/2022 documented as of this encounter (statuses as of 08/27/2022) [address]04-2022 History of Past illness Narrative* Problem Noted Date Resolved Date Combined forms of age-related cataract of left e ye 01/24/2022 03/21/2022 documented as of this encounter (statuses as of 09/25/2022) [address]04-2022 History of Past illness Narrative* Problem Noted Date Diagnosed Date Resolved Date Combined forms of age-relate d cataract of left eye 01/24/2022 03/21/2022 documented as of this encounter (statuses as of 10/27/2022) [address]04-2022 History of Past illness Narrative* Problem Noted Date Diagnosed Date Resolved Date Combined forms of age-relate d cataract of left eye 01/24/2022 03/21/2022 documented as of this encounter (statuses as of 11/04/2022) [address]04-2022 History of Past illness Narrative* Problem Noted Date Diagnosed Date Resolved Date Combined forms of age-relate d cataract of left eye 01/24/2022 03/21/2022 documented as of this encounter (statuses as of 11/04/2022) [address]04-2022 History of Past illness Narrative* Problem Noted Date Diagnosed Date Resolved Date Combined forms of age-relate d cataract of left eye 01/24/2022 03/21/2022 documented as of this encounter (statuses as of 11/06/2022) [address]04-2022 History of Past illness Narrative* Problem Noted Date Diagnosed Date Resolved Date Combined forms of age-relate d cataract of left eye 01/24/2022 03/21/2022 documented as of this encounter (statuses as of 11/27/2022) [address]04-2022 History of Past illness Narrative* Problem Noted Date Diagnosed Date Resolved Date Combined forms of age-relate d cataract of left eye 01/24/2022 03/21/2022 documented as of this encounter (statuses as of 11/28/2022) [address]04-2022 History of Past illness Narrative* Problem Noted Date Diagnosed Date Resolved Date Combined forms of age-relate d cataract of left eye 01/24/2022 03/21/2022 documented as of this encounter (statuses as of 12/03/2022) [place] [address]22 History of Past illness Narrative* Problem Noted Date Diagnosed Date Resolved Date Combined forms of age-relate d cataract of left eye 01/24/2022 03/21/2022 documented as of this encounter (statuses as of 01/08/2023) [address]04-2022 History of Past illness Narrative* Problem Noted Date Diagnosed Date Resolved Date Combined forms of age-relate d cataract of left eye 01/24/2022 03/21/2022 documented as of this encounter (statuses as of 01/27/2023) [address]04-2022 History of Past illness Narrative* Problem Noted Date Diagnosed Date Resolved Date Combined forms of age-relate d cataract of left eye 01/24/2022 03/21/2022 documented as of this encounter (statuses as of 02/23/2023) [address]04-[address]22 History of Past illness Narrative* Problem Noted Date Diagnosed Date Resolved Date Combined forms of age-relate d cataract of left eye 01/24/2022 03/21/2022 documented as of this encounter (statuses as of 05/09/2023) [address]04-[address]22 History of Past illness Narrative* Problem Noted Date Diagnosed Date Resolved Date Combined forms of age-relate d cataract of left eye 01/24/2022 03/21/2022 documented as of this encounter (statuses as of 05/09/2023) [address]04-[address]22 History of Past illness Narrative* Problem Noted Date Diagnosed Date Resolved Date Combined forms of age-relate d cataract of left eye 01/24/2022 03/21/2022 documented as of this encounter (statuses as of 05/09/2023) [address]04-2022 History of Past illness Narrative* Problem Noted Date Diagnosed Date Resolved Date Combined forms of age-relate d cataract of left eye 01/24/2022 03/21/2022 documented as of this encounter (statuses as of 05/09/2023) [address]04-2022 History of Past illness Narrative* Problem Noted Date Diagnosed Date Resolved Date Combined forms of age-relate d cataract of left eye 01/24/2022 03/21/2022 documented as of this encounter (statuses as of 05/20/2023) [address]04-2022 History of Past illness Narrative* Problem Noted Date Diagnosed Date Resolved Date Combined forms of age-relate d cataract of left eye 01/24/2022 03/21/2022 documented as of this encounter (statuses as of 05/21/2023) [address]04-[address]22 History of Past illness Narrative* Problem Noted Date Diagnosed Date Resolved Date Combined forms of age-relate d cataract of left eye 01/24/2022 03/21/2022 documented as of this encounter (statuses as of 06/15/2023) [address]04-[address]22 History of Present illness Narrative* Keith Cao MD - 01/24/2022 9:21 AM EDT ASSESSMENT/PLAN: 1. Combined form of age-related cataract, right eye - ICD9: 366.19, ICD10: H25.811 (primary diagnosis) 2. Combined forms of age-related cataract of left eye - ICD9: 366.19, ICD10: H25.812 Begin: Inveltys 1 drop twice daily both eyes Systane Complete 1 drop in both three times daily Patient to see Dr. Dot Allen for physical, EKG and Bloodwork on 02-10-22 Patient will follow up with us after seeing Dr. Allen to schedule cataract surgery 3. 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 Dry eye syndrome, bilateral - ICD9: 375.15, ICD10: H04.123 5. Punctate keratitis, bilateral - ICD9: 370.21, ICD10: H16.143 Patient will begin using: Inveltys 1 drop twice daily both eyes Systane Complete 1 drop in both three times daily 6. Unspecified sleep apnea - ICD9: 780.57, ICD10: G47.30 Continue care as directed by physician 7. Malignant neoplasm of upper-outer quadrant of right breast in female, estrogen receptor positive(HCC) - ICD9: 174.4, V86.0, ICD10: C50.411, Z17.0 Continue care as directed by physician I have confirmed and edited as necessary the relevant ophthalmic history, review of systems, surgical history, and ophthalmological examination findings as obtained by the ophthalmic technical staff.I have seen and examined Marina Moraes. I have discussed the examination findings, diagnosis, and treatment options with Marina Moraes and/or her family. I have also reviewed and agree with the assessment and plan as stated above and agree with all its relevant components. I gave the patient the opportunity to ask questions about the findings, diagnosis, and treatment options. Keith Cao MD documented in this encounterUc Medical Center10-31-2022 Miscellaneous Notes* Telephone Encounter - Stephania Hayes MD - 01/20/2022 7:38 AM EDT Patient's request for medication is as follows Requested Prescriptions Signed Prescriptions Disp Refills palbociclib (IBRANCE) 125 mg tablet 21 tablet 2 Sig: Take 1 tablet (125mg) by mouth once daily for 3 weeks on, followed by 1 week off. Take with orwithout food Authorizing Provider: STEPHANIA HAYES Order entered - please phone pharmacy and notify patient. Stephania Hayes MD documented in this encounterUc Medical Center10-19-2022 Nurse Note* Suzette Rodriguez LPN - 01/08/2022 10:28 AM EDT Pt here for injection of Faslodex. Given IM in B/L buttocks. Pt tolerated well. documented in this [facility]10-03-2022 Miscellaneous Notes* Telephone Encounter - Shanta Allen - 12/23/2021 2:07 PM EDT 2nd call Left to schedule OV in [place]. Also need confirmation on venous doppler testing that was ordered by Internal Medicine/Dot Allen, Referral from Dot Allen, DO #[phone] - Tender and raised on legs (venous doppler scheduled for ??) documented in this [facility]10-03-2022 History of Present illness Narrative* Diya Villagomez, RT(R) - 12/23/2021 2:00 PM EDT Radiology Service Progress Note PATIENT NAME: Marina Moraes DATE OF SERVICE: December 23, 2021 TIME: 2:13 PM PATIENT IDENTITY VERIFICATION COMPLETED USING TWO (2) IDENTIFIERS: Name and Date of confirmedby patient verbally. FALL SCREENING: Has the patient had 2 falls in the last year or 1 fall with injury or currently using an Ambulatory Assistive Device (Walker, Cane, Wheelchair, Crutches, etc.)? No PATIENT GENDER DATA: Female. status: : No status: NO. PATIENT RELEVANT IMPLANT DATA REVIEWED: Yes RADIOLOGY DEPARTMENT: CT; Exam(s) Completed: Chest Abdomen Pelvis PERIPHERAL IV DATA: Not applicable SIGNED BY: RT Kesha(R) December 23, 2021 2:13 PM documented in this encounterUc [facility] Center10-03-2022 History of Present illness Narrative* RT Izabella(R) - 12/23/2021 12:30 PM EDT RADIOLOGY SERVICE PROGRESS NOTE SERVICE DATE: 12/23/2021 SERVICE TIME: 12:35 PM PATIENT IDENTITY VERIFICATION COMPLETED USING TWO (2) STANDARD IDENTIFIERS: Name and Date of confirmed by patient verbally FALL SCREENING: Has the patient had 2 falls in the last year or 1 fall with injury or currently using an Ambulatory Assistive Device (Walker, Cane, Wheelchair, Crutches, etc.)? No PATIENT GENDER DATA: .female : No ALLERGIES: Reviewed and unchanged MEDICATIONS REVIEWED: No PATIENT RELEVANT IMPLANT DATA REVIEWED: Not Applicable CREATININE: Creatinine Date Value Ref Range Status 12/04/2021 0.81 0.58 - 0.96 mg/dL Final 09/10/2021 0.78 0.58 - 0.96 mg/dL Final 06/14/2021 0.76 0.58 - 0.96 mg/dL Final Estimated Glomerular Filtration Rate Date Value Ref Range Status 12/04/2021 76 >=60 mL/min/1.73m Final Comment: Estimated Glomerular Filtration Rate (eGFR) is calculated using the 2020 CKD-EPI creatinine equation. This equation utilizes serum creatinine, sex, and age as parameters. The creatinine assay has traceable calibration to isotope dilution- mass spectrometry. Refer to KDIGO guidelines for clinical interpretation. In patients with unstable renal function, e.g. those with acute kidney injury, the eGFRmay not accurately reflect actual GFR. eGFR- Date Value Ref Range Status 03/26/2021 >60 Final P.O.C.T. RESULTS: N/A December 23, [address] PERFORMED: No IV SITE: Ambulatory: A peripheral IV was started in the medial side of left wrist with a Angio cath: 24 gauge. POST EXAM PIV STATUS: Discontinued PROCEDURE TYPE: NM INJECT: Whole Body Bone Scan. 20.7 mCi Tc99m MDP. No other medications given.. ADMINISTRATION TIME: 12:55 PATIENT DISCHARGED TO: Ambulatory patient, left [place] department area. A Diagnostic radioactive procedure has taken place, with no further precautions necessary other than routine body substance precautions. More information regarding radiation safety can be found usingthis link: [email or web address] SIGNATURE: MICHAEL Parekh PATIENT NAME: Marina Moraes DATE: December 23, 2021 TIME: 3:10 PM PAGER/CONTACT #: documented in this encounterUc Medical Center09-30-2022 History of Present illness Narrative* Lakshmi Garza - 12/20/2021 11:29 AM EDT [facility] Specialty Refill Assessment Medication(s): Ibrance Patient's current medication list and adherence status to current therapy were reviewed by Specialty Pharmacy clinical pharmacist to identify any new drug interactions or non-compliance to therapy. Therapy continues to be appropriate for disease, patient response, and medical condition. Verification of therapeutic benefit and effectiveness with current therapy was completed. Adverse events, barriers in adherence, and side effects were assessed and addressed if applicable. Will proceed with refill with no changes in therapy - patient progressing towards achieving therapeutic goals based on medication- specific laboratory parameters, disease state markers and outcomes. Erp Analyst Assessment Patient confirmed: Yes Med/dose confirmed: Yes Supplies needed: No supplies needed Missed doses: No Estimated days supply on hand: 3 Next cycle/dose due: 12/30/21 Copay amount: 0 Delivery method: FedEx Signature required: No Delivery address: [address] [place] [address] Delivery date: 12/25/21 Questions or concerns for the pharmacist?: No [facility] Visit Assessment - Hematology/Oncology: Assessment to use: Refill Vaccination Assessment: Date of influenza vaccination reminder: 11/28/2021 Date of most recent vaccination assessment: 11/28/2021 Laskhmi Garza documented in this encounterUc Medical Center09-28-2022 Miscellaneous Notes* Telephone Encounter - Shanta Allen - 12/18/2021 2:45 PM EDT Left VM to schedule OV in [place]. Also need confirmation on venous doppler testing that was ordered by Internal Medicine/Dot Allen DO Referral from Dot Allen, DO #[phone] - Tender and raised on legs (venous doppler scheduled for ??) documented in this encounterUc Medical Center08-05-2022 History of Present illness Narrative* Dacia Nina - 10/25/2021 10:42 AM EDT [facility] Specialty Refill Assessment Medication(s): Ibrance Patient's current medication list and adherence status to current therapy were reviewed by Specialty Pharmacy clinical pharmacist to identify any new drug interactions or non-compliance to therapy. Therapy continues to be appropriate for disease, patient response, and medical condition. Verification of therapeutic benefit and effectiveness with current therapy was completed. Adverse events, barriers in adherence, and side effects were assessed and addressed if applicable. Will proceed with refill with no changes in therapy - patient progressing towards achieving therapeutic goals based on medication- specific laboratory parameters, disease state markers and outcomes. [facility] Visit Assessment - Hematology/Oncology: Assessment to use: Refill Non-Clinical Assessment: Estimated days supply on hand: 2 Next cycle/dose due: 11/04/2021 Copay amount: 0 Payment confirmed: Yes Address confirmed: Yes Delivery method: iRates Delivery address: [address] [facility] [address] Delivery date: 11/01/2021 Patient has questions: No Additional questions, comments, concerns: Vaccination Assessment: Date of influenza vaccination reminder: 11/29/2020 Date of most recent vaccination assessment: 11/29/2020 Dacia Nina documented in this encounterUc Medical Center08-05-2022 Miscellaneous Notes* Telephone Encounter - Stephania Hayes MD - 10/25/2021 8:05 AM EDT Patient's request for medication is as follows Signed Prescriptions Disp Refills palbociclib (IBRANCE) 125 mg tablet 21 tablet 2 Sig: Take 1 tablet (125mg) by mouth once daily for 3 weeks on, followed by 1 week off. Take with orwithout food DANNY: No Authorizing Provider: STEPHANIA HAYES Order entered - please phone pharmacy and notify patient. Stephania Hayes MD documented in this encounterUc Medical Center07-19-2022 Nurse Note* Suzette Rodriguez LPN - 10/08/2021 3:13 PM EDT Pt here for injection of Faslodex. Given IM in B/L buttocks. Pt tolerated well. Suzette Rodriguez LPN [facility] History of Present illness Narrative* Vandana Mejias ([place]) - 09/30/2021 11:07 AM EDT [facility] Assessment Medication(s): Ibrance Reviewed OV note on 09/10. Labs reviewed from 09/10, tumor markers slightly up - will continue to monitor trend, G2 leukopenia, G1 anemia. Next clinic visit scheduled 12/04 with labs. Therapy continues to be appropriate for disease, patient response, and medical condition. Verification of therapeutic benefit and effectiveness with current therapy. Adverse events, barriers in adherence, and side effects assessed and addressed. Will proceed with refill with no changes. Palbociclib cycles (28DS: 21 on / 7 off) are as follows (C1:01/31/19): 02/27/21 (delayed 2 days d/t anil), 03/25/21 (patient stopped last cycle 03/18 to get back to Thursday cycle start), 04/22/20, 05/20/21, 06/17/21, 07/15/21, 08/12/21, 09/09/21, 10/07/21, 11/04/21 Sumit Berg, Juan FD Clinical Pharmacist, Oncology [facility] P: ; F: Pool: [id number] [facility] Pool #: [id number] [facility] Visit Assessment - Hematology/Oncology: Ivent complete: No Assessment to use: Refill Non-Clinical Assessment: Patient confirmed: Yes Med/dose confirmed: Yes Supplies needed: N/A Missed doses: No Estimated days supply on hand: 0 Next cycle/dose due: 10/07/2021 Copay amount: 0 Payment confirmed: Yes Address confirmed: Yes Delivery method: FedEx Delivery address: [address] [facility] [address] Delivery date: 10/02/2021 Patient has questions: No Additional questions, comments, concerns: Ok for Mychart message for next fill. Vaccination Assessment: Date of influenza vaccination reminder: 11/29/2020 Date of most recent vaccination assessment: 11/29/2020 Refill Assessment: Lab monitoring inclusive of CBC, Chem-7, and other labs as pertinent for therapy: Yes Chemo cycle timing assessment: Yes Screening for infection: Yes Adverse reactions and mitigation: Yes Medication changes and interaction assessment: Yes Assessment of injection issues: N/A Additional Assessment: Assessment of continued need for prophylactic medications at regular intervals: Yes Radiology procedure timing to assess for disease progression: Yes Scheduled future appointments: Yes Vandana Mejias ([place]) documented in this encounter[facility]22 History of Present illness Narrative* Stephania Hayes MD - 09/10/2021 10:34 AM EDT PATIENT NAME: Marina Moraes. CLINIC NO: [id number]. ATTENDING PHYSICIAN: Stephania Hayes MD. DATE OF SERVICE: 09/10/2021 DIAGNOSIS: Metastatic breast cancer; with malignant right pleural effusion -Status post pleurodesis & Skeletal metastasis T9 - L2. HPI: 75-year-old postmenopausal lady who had a partial mastectomy and sentinel lymph node sampling on April 20, 2017 for a stage Ib, pT1b,No Mx moderately differentiated, 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 Initial FISH for HER-2 was equivocal, repeat should showed sample to be nonamplified. Patient had decided not to proceed with chemotherapy at that time and an Oncotype DX was not performed. Patient presented with several month history of epigastric right upper quadrant pain along with shortness of breath. Evaluation showed a right pleural effusion, but ultrasound of the gallbladder showed no evidence of cholecystitis. She had multiple thoracentesis from November and most recently in 2 weeks. 900 cc of malignant fluid removed and cytology was positive for malignant cells consistent with metastatic carcinoma with breast primary. Estrogen and progesterone receptor were both positive, HER-2/roderick negative mamoglobin was positive focally. Patient complaining of increased shortness of breath and right shoulder pain for the last couple days. She is concerned that her malignant effusion has come back since 2 weeks ago. Patient has no cough or shortness of breath. She has pruritic chest pain but no bone pain. Patient has no headaches orneurological symptom. She denies change in weight or appetite. No fever, chills, night sweats or fatigue. She had not had a mammogram for 2 years but denies any problem with her breasts. She has no lymphedema. She has family history of prostate cancer and breast cancer in multiple family members. Oncological history: Completed radiation therapy on 07/16/2007 Started AI therapy July 2007. Changed to tamoxifen March 2008 secondary to myalgia or arthralgia. Completed 5 years of tamoxifen in July 2012 Current treatment: Fulvestrant and Ibrance Zoledronic acid IV every 3 months Interim history: She is doing well Faslodex injection and Ibrance. No bone pain or jaw pain. She has no problem with her breasts. She has chronic lymphedema. She denies any neck pain or right shoulder pain. She has no chest pain, cough or shortness of breath. She has occasional stomatitis, but no diarrhea. Her weight and appetite is stable. She fallen recently, and complaining of unsteadiness. All medications & allergies updated and reviewed by me. REVIEW OF SYSTEMS: CONSTITUTIONAL: No fevers, chills, nightsweats, unintended weight loss HEENT: Denies frequent or severe heaches, nasal congestion/sinus symptoms, problematic allergy problems. EYES: No diplopia or blurry vision. CARDIOVASCULAR: No chest pain, dyspnea, palpitations, orthopnea, PND, ankle edema. PULM: No dyspnea, unexplained cough. GI: No dysphagia/odynophagia, problematic reflux, constipation, diarrhea, changes in stool habits, hematochezia, melena. : No new urinary complaints, including dysuria, gross hematuria or pyuria. NEURO: No new balance problems, peripheral weakness/paresthesias or numbness of concern. MUSC-SKEL: No new joint pain, swelling, or erythema. PSY: No concerns regarding depression, anxiety or panic. INTEGUMENTARY: No new skin changes (rash, new or changing mole, new growth) PHYSICAL EXAMINATION: 76-year-old postmenopausal lady in no acute distress Performance status 90% BP 134/60 Pulse 65 Temp (Src) 97.9 (Temporal) Wt 206 lb 8 oz (93.7kg) HEENT: Head is normocephalic, atraumatic. Sclerae white, conjunctivae pink. PEERL. EOMs are intact.Oropharynx is benign. LYMPHATICS: There is no palpable adenopathy in the neck, supraclavicular region, axillae, or groin. BREASTS: Without skin dimpling, nipple discharge or masses. Right lumpectomy site with radiation changes; no mass/nodule b/l, surgical scars b/l well healed. LUNGS: Lungs are clear to auscultation. Slightly decreased right base. HEART: Heart is normal without murmurs, gallops, or rubs. ABDOMEN: Soft and nontender without organomegaly. No masses can be palpated. EXTREMITIES: Are without edema. + Mild lymphedema of right arm & hand NEUROLOGIC: Exam is physiologic. Nonfocal. LABORATORY DATA: Component Latest Ref Rng & Units 09/10/2021 WBC 3.70 - 11.00 k/uL 2.75 (L) RBC 3.90 - 5.20 m/uL 2.83 (L) Hemoglobin 11.5 - 15.5 g/dL 10.6 (L) Hematocrit 36.0 - 46.0 % 31.3 (L) MCV 80.0 - 100.0 fL 110.6 (H) MCH 26.0 - 34.0 pg 37.5 (H) MCHC 30.5 - 36.0 g/dL 33.9 RDW-CV 11.5 - 15.0 % 14.0 Platelet Count 150 - 400 k/uL 207 MPV 9.0 - 12.7 fL 9.7 Neut% % 60.0 Abs Neut (ANC) 1.45 - 7.50 k/uL 1.65 Lymph% % 18.2 Abs Lymph 1.00 - 4.00 k/uL 0.50 (L) Darlington% % 15.3 Abs [place] <0.87 k/uL 0.42 Eosin% % 2.5 Abs Eosin <0.46 k/uL 0.07 Baso% % 2.9 Abs Baso <0.11 k/uL 0.08 Immature Gran % % 1.1 IMMATURE GRANS (ABS) <0.10 k/uL 0.03 NRBC /100 WBC 0.7 Absolute nRBC <0.01 k/uL 0.02 (H) DTYPE Auto Component Latest Ref Rng & Units 09/10/2021 Iron 41 - 186 ug/dL 59 TIBC 232 - 386 ug/dL 247 Transferrin Saturation 15.0 - 57.0 % 23.9 Retic % 0.4 - 2.0 % 3.9 (H) Abs Retic 0.018 - 0.100 M/uL 0.110 (H) Vitamin B12 232-1,245 pg/mL 541 Folate >4.7 ng/mL >20.0 Ferritin 14.7 - 205.1 ng/mL 101.0 Component Latest Ref Rng & Units 09/10/2021 Protein, Total 6.3 - 8.0 g/dL 5.9 (L) Albumin 3.9 - 4.9 g/dL 3.8 (L) Calcium 8.5 - 10.2 mg/dL 8.7 Bilirubin, Total 0.2 - 1.3 mg/dL 0.4 Alkaline Phosphatase 34 - 123 U/L 88 AST 13 - 35 U/L 17 ALT 7 - 38 U/L 9 Glucose 74 - 99 mg/dL 107 (H) BUN 7 - 21 mg/dL 12 Creatinine 0.58 - 0.96 mg/dL 0.78 Sodium 136 - 144 mmol/L 138 Potassium 3.7 - 5.1 mmol/L 4.3 Chloride 97 - 105 mmol/L 103 CO2 22 - 30 mmol/L 24 Anion Gap 9 - 18 mmol/L 11 eGFR >=60 mL/min/1.73m 80 ASSESSMENT: 75-year-old female with history of stage Ib, moderately differentiated invasive ductal carcinoma ER MI positive HER-2 non-overexpressed of the right breast presented with malignant pleural effusion, liver metastasis and bone metastasis. 1) metastatic ER positive /HER2 negative breast cancer -Stable disease on Faslodex and Ibrance. She is asymptomatic with no bone pain or shortness of breath and tolerating treatment except for moderate neutropenia, mild stomatitis. 2) anemia and leukopenia secondary to Ibrance 3) chronic lymphedema of right arm 4) microcytic anemia -anemia of chronic disease PLAN: - Continue Faslodex 500mg IM every 4 weeks & Ibrance 150mg daily; day 1-21 every 28 days - Continue Zometa every 3 months - Check iron study, vitamin B12 and folic acid daily for anemia - Repeat CBC, CMP, CA 27-29, CA 15-3 and office visit in 3 months - Follow-up with PCP regarding her balance and unsteadiness. Portions of this documentation were copied and pasted from previous office visit notes in order to provide a cohesive continuity of the history. The note has been reviewed and edited and updated as necessary. Stephania Hayes MD Cc: Dot Allen DO documented in this [facility]06-20-2022 Miscellaneous Notes* Telephone Encounter - Vanda Trevino RN - 09/09/2021 2:14 PM EDT Pt will come in early prior to OV to allow time for CMP to result. Chemistry analyzer currently outof service for labs on 09/08/21 documented in this [facility]05-24-2022 Nurse Note* Susan Day LPN - 08/13/2021 3:44 PM EDT faslodex injection administered,bilateral buttocks, tolerated well, no immediate adverse reactions noted. Susan Day LPN documented in this [facility]05-13-2022 Miscellaneous Notes* Telephone Encounter - Stephania Hayes MD - 08/02/2021 2:45 PM EDT Patient's request for medication is as follows Signed Prescriptions Disp Refills palbociclib (IBRANCE) 125 mg tablet 21 tablet 2 Sig: Take 1 tablet (125mg) by mouth once daily for 3 weeks on, followed by 1 week off. Take with orwithout food DANNY: No Authorizing Provider: STEPHANIA HAYES Order entered - please phone pharmacy and notify patient. Stephania Hayes MD documented in this encounter[facility]04-26-2022 Nurse Note* Suzette Rodriguez LPN - 07/16/2021 3:30 PM EDT Pt here for injection of Faslodex. Given IM in B/L buttocks. Pt tolerated well. Suzette Rodriguez LPN documented in this encounter[facility]03-29-2022 History of Present illness Narrative* Stephania Hayes MD - 06/18/2021 11:59 AM EDT PATIENT NAME: Marina Moraes. CLINIC NO: [id number]. ATTENDING PHYSICIAN: Stephania Hayes MD. DATE OF SERVICE: 06/18/2021 DIAGNOSIS: Metastatic breast cancer; with malignant right pleural effusion -Status post pleurodesis & Skeletal metastasis T9 - L2, and liver metastasis? HPI: 75-year-old postmenopausal lady who had a partial mastectomy and sentinel lymph node sampling on April 20, 2017 for a stage Ib, pT1b,No Mx moderately differentiated, 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 Initial FISH for HER-2 was equivocal, repeat should showed sample to be nonamplified. Patient had decided not to proceed with chemotherapy at that time and an Oncotype DX was not performed. Patient presented with several month history of epigastric right upper quadrant pain along with shortness of breath. Evaluation showed a right pleural effusion, but ultrasound of the gallbladder showed no evidence of cholecystitis. She had multiple thoracentesis from November and most recently in 2 weeks. 900 cc of malignant fluid removed and cytology was positive for malignant cells consistent with metastatic carcinoma with breast primary. Estrogen and progesterone receptor were both positive, HER-2/roderick negative mamoglobin was positive focally. Patient complaining of increased shortness of breath and right shoulder pain for the last couple days. She is concerned that her malignant effusion has come back since 2 weeks ago. Patient has no cough or shortness of breath. She has pruritic chest pain but no bone pain. Patient has no headaches orneurological symptom. She denies change in weight or appetite. No fever, chills, night sweats or fatigue. She had not had a mammogram for 2 years but denies any problem with her breasts. She has no lymphedema. She has family history of prostate cancer and breast cancer in multiple family members. Oncological history: Completed radiation therapy on 07/16/2007 Started AI therapy July 2007. Changed to tamoxifen March 2008 secondary to myalgia or arthralgia. Completed 5 years of tamoxifen in July 2012 Current treatment: Fulvestrant and Ibrance Zoledronic acid IV every 3 months Interim history: She is doing well Faslodex injection and Ibrance. No bone pain or jaw pain. She has no problem with her breasts. She has chronic lymphedema. She denies any neck pain or right shoulder pain. No neuropathy of her right hand. She has no chest pain, cough or shortness of breath. She has occasional stomatitis, but no diarrhea. Her weight and appetite is stable. All medications & allergies updated and reviewed by me. REVIEW OF SYSTEMS: CONSTITUTIONAL: No fevers, chills, nightsweats, unintended weight loss HEENT: Denies frequent or severe heaches, nasal congestion/sinus symptoms, problematic allergy problems. EYES: No diplopia or blurry vision. CARDIOVASCULAR: No chest pain, dyspnea, palpitations, orthopnea, PND, ankle edema. PULM: No dyspnea, unexplained cough. GI: No dysphagia/odynophagia, problematic reflux, constipation, diarrhea, changes in stool habits, hematochezia, melena. : No new urinary complaints, including dysuria, gross hematuria or pyuria. NEURO: No new balance problems, peripheral weakness/paresthesias or numbness of concern. MUSC-SKEL: No new joint pain, swelling, or erythema. PSY: No concerns regarding depression, anxiety or panic. INTEGUMENTARY: No new skin changes (rash, new or changing mole, new growth) PHYSICAL EXAMINATION: 75-year-old postmenopausal lady in no acute distress Performance status 90% BP 134/60 Pulse 65 Temp (Src) 97.9 (Temporal) Wt 206 lb 8 oz (93.7kg) HEENT: Head is normocephalic, atraumatic. Sclerae white, conjunctivae pink. PEERL. EOMs are intact.Oropharynx is benign. LYMPHATICS: There is no palpable adenopathy in the neck, supraclavicular region, axillae, or groin. BREASTS: Without skin dimpling, nipple discharge or masses. Right lumpectomy site with radiation changes; no mass/nodule b/l, surgical scars b/l well healed. LUNGS: Lungs are clear to auscultation. Slightly decreased right base. HEART: Heart is normal without murmurs, gallops, or rubs. ABDOMEN: Soft and nontender without organomegaly. No masses can be palpated. EXTREMITIES: Are without edema. + Mild lymphedema of right arm & hand NEUROLOGIC: Exam is physiologic LABORATORY DATA: Component Latest Ref Rng & Units 06/14/2021 WBC 3.70 - 11.00 k/uL 2.67 (L) RBC 3.90 - 5.20 m/uL 3.07 (L) Hemoglobin 11.5 - 15.5 g/dL 11.3 (L) Hematocrit 36.0 - 46.0 % 34.1 (L) MCV 80.0 - 100.0 fL 111.1 (H) MCH 26.0 - 34.0 pg 36.8 (H) MCHC 30.5 - 36.0 g/dL 33.1 RDW-CV 11.5 - 15.0 % 14.2 Platelet Count 150 - 400 k/uL 172 MPV 9.0 - 12.7 fL 11.3 Neut% % 69.2 Abs Neut (ANC) 1.45 - 7.50 k/uL 1.85 Lymph% % 16.9 Abs Lymph 1.00 - 4.00 k/uL 0.45 (L) Darlington% % 9.4 Abs [place] <0.87 k/uL 0.25 Eosin% % 1.9 Abs Eosin <0.46 k/uL 0.05 Baso% % 2.2 Abs Baso <0.11 k/uL 0.06 Immature Gran % % 0.4 IMMATURE GRANS (ABS) <0.10 k/uL <0.03 NRBC /100 WBC 0.0 Absolute nRBC <0.01 k/uL <0.01 DTYPE Auto Component Latest Ref Rng & Units 06/14/2021 Protein, Total 6.3 - 8.0 g/dL 6.6 Albumin 3.9 - 4.9 g/dL 4.0 Calcium 8.5 - 10.2 mg/dL 9.0 Bilirubin, Total 0.2 - 1.3 mg/dL 0.4 Alkaline Phosphatase 34 - 123 U/L 77 AST 13 - 35 U/L 18 ALT 7 - 38 U/L 10 Glucose 74 - 99 mg/dL 99 BUN 7 - 21 mg/dL 12 Creatinine 0.58 - 0.96 mg/dL 0.76 Sodium 136 - 144 mmol/L 140 Potassium 3.7 - 5.1 mmol/L 4.0 Chloride 97 - 105 mmol/L 104 CO2 22 - 30 mmol/L 25 Anion Gap 9 - 18 mmol/L 11 eGFR >=60 mL/min/1.73m 83 CA27.29 <38.6 U/mL 59.2 (H) Breast CA 15-3 <26.0 U/mL 50.6 (H) CT SCAN: Chest Comparison: 12/24/2020 IMPRESSION: Stable scans through the chest. No developing suspicious mass or adenopathy. Grossly stable bony metastatic disease. CT abdomen pelvis:COMPARISON: 12/24/2020. IMPRESSION: No significant interval change with findings of osseous metastatic disease. 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 1) metastatic breast cancer -Stable disease on Faslodex and Ibrance. She is asymptomatic with no bone pain or shortness of breath and tolerating treatment except for moderate neutropenia, mild stomatitis and mild anemia of chronic disease. 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 The note has been reviewed and edited and updated as necessary. Stephania Hayes MD Cc: Dot Allen DO documented in this encounter[facility]03-29-2022 History of Present illness Narrative* Jennifer Caro RN - 06/18/2021 10:54 AM EDT \[id number] documented in this encounter[facility] Center03-25-2022 History of Present illness Narrative* RT Moira(R) - 06/14/2021 10:40 AM EDT Radiology Service Progress Note PATIENT NAME: Marina Moraes DATE OF SERVICE: June 14, 2021 TIME: 4:16 PM PATIENT IDENTITY VERIFICATION COMPLETED USING TWO (2) IDENTIFIERS: Name and Date of confirmedby patient verbally. FALL SCREENING: Has the patient had 2 falls in the last year or 1 fall with injury or currently using an Ambulatory Assistive Device (Walker, Cane, Wheelchair, Crutches, etc.)? No PATIENT GENDER DATA: Female. status: : No status: NO. PATIENT RELEVANT IMPLANT DATA REVIEWED: Not Applicable RADIOLOGY DEPARTMENT: CT; Exam(s) Completed: Chest Abdomen Pelvis PERIPHERAL IV DATA: Not applicable SIGNED BY: RT Kesha(R) June 14, 2021 4:16 PM documented in this encounterU[facility] Center09-21-2010 History of Present illness Narrative* 77-year-old female with a medical history of recurrent pleural effusions, metastatic breast cancer, * Echocardiogram December 11, 2009: Normal left ventricular ejection fraction (65%,), mild left atrial enlargement, mild mitral regurgitation, mild tricuspid regurgitation * Stress test December 11, 2009: Rest and stress SPECT Cardiolite imaging showed normal myocardial perfusion * Holter monitor June 03, 2010: No sustained tachyarrhythmias noted. * Patient here to establish care with a sock lining examiner. She notes shortness of breath with exertion that is mild to moderate. However that has remained stable for the past few years. She does note trace lower extremity edema and notes that her extremities are sore and painful and the soreness has been w orsening over the past few weeks. She denies any orthopnea/PND. Denies any exertional angina. [id number] Gely Morales Work Phone: Evaluation note* Diagnosis Bone metastases (HCC)- Primary Secondary malignant neoplasm of bone and bone marrow Malignant neoplasm of upper-outer quadrant of right breast in female, estrogen receptor positive (HCC) Pleural effusion, malignant Malignant pleural effusion [facility] Malignant neoplasm of upper-outer quadrant of right breast in female, estrogen receptor positive (HCC)- Primary Pleural effusion, malignant Malignant pleural effusion Bone metastases (HCC) Secondary malignant neoplasm of bone and bone marrow Liver metastasis (HCC) Secondary malignant neoplasm of liver [facility] Bone metastases ([facility]CC) Secondary malignant neoplasm of bone and bone marrow Liver metastasis (HCC) Secondary malignant neoplasm of liver Malignant neoplasm of upper-outer quadrant of right breast in female, estrogen receptor positive (HCC) [facility] Diagnosis Malignant neoplasm of upper-outer quadrant of right breast in female, estrogen receptor positive (HCC)- Primary Pleural effusion, malignant Malignant pleural effusion [facility] Diagnosis Malignant neoplasm of upper-outer quadrant of right breast in female, estrogen receptor positive (HCC) [facility] Diagnosis Malignant neoplasm of upper-outer quadrant of right breast in female, estrogen receptor positive (HCC)- Primary Pleural effusion, malignant Malignant pleural effusion [facility] Diagnosis Malignant neoplasm of upper-outer quadrant of right breast in female, estrogen receptor positive (HCC)- Primary Pleural effusion, malignant Malignant pleural effusion Bone metastases (HCC) Secondary malignant neoplasm of bone and bone marrow [facility] Diagnosis Anemia in neoplastic disease- Primary Bone metastases (HCC) Secondary malignant neoplasm of bone and bone marrow Pleural effusion, malignant Malignant pleural effusion Malignant neoplasm of upper-outer quadrant of right breast in female, estrogen receptor positive (HCC) [facility] Diagnosis Malignant neoplasm of upper-outer quadrant of right breast in female, estrogen receptor positive (HCC) [facility] Diagnosis Malignant neoplasm of upper-outer quadrant of right breast in female, estrogen receptor positive (HCC)- Primary [facility] Diagnosis Onset Date Resolution Status Bruit of left carotid artery acute Premature atrial contractions acute Premature ventricular contraction acute SVT (supraventricular tachycardia) acute Essential (primary) hypertension chronic Hyperlipidemia chronic [facility] Work Phone: Evaluation note* Diagnosis Malignant neoplasm of upper-outer quadrant of right breast in female, estrogen receptor positive (HCC)- Primary Pleural effusion, malignant Malignant pleural effusion Bone metastases (HCC) Secondary malignant neoplasm of bone and bone marrow [facility] Diagnosis Malignant neoplasm of upper-outer quadrant of right breast in female, estrogen receptor positive (HCC) Bone metastases (HCC) Secondary malignant neoplasm of bone and bone marrow Malignant neoplasm of breast in female, estrogen receptor positive, unspecified laterality, unspecified site of breast (HCC) [facility] Diagnosis Malignant neoplasm of upper-outer quadrant of right breast in female, estrogen receptor positive (HCC) Bone metastases (HCC) Secondary malignant neoplasm of bone and bone marrow Malignant neoplasm of breast in female, estrogen receptor positive, unspecified laterality, unspecified site of breast (HCC) [facility] Diagnosis Malignant neoplasm of upper-outer quadrant of right breast in female, estrogen receptor positive (HCC)- Primary Pleural effusion, malignant Malignant pleural effusion [facility] Diagnosis Malignant neoplasm of upper-outer quadrant of right breast in female, estrogen receptor positive (HCC) [facility] Combined form of age-related cataract, right eye- Primary Combined forms of age-related cataract of left eye Other and combined forms of senile cataract 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 syndrome, bilateral Punctate keratitis, bilateral Unspecified sleep apnea Malignant neoplasm of upper-outer quadrant of right breast in female, estrogen receptor positive (HCC) [facility] Malignant neoplasm of upper-outer quadrant of right breast in female, estrogen receptor positive (HCC)- Primary Pleural effusion, malignant Malignant pleural effusion [facility] Diagnosis Combined forms of age-related cataract of left eye- Primary Other and combined forms of senile cataract Combined forms of age-related cataract of right eye Other and combined forms of senile cataract 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 Punctate keratitis, bilateral Dry eye syndrome, bilateral Unspecified sleep apnea Tachycardia Tachycardia, unspecified Malignant neoplasm of upper-outer quadrant of right breast in female, estrogen receptor positive (HCC) [facility] Malignant neoplasm of upper-outer quadrant of right breast in female, estrogen receptor positive (HCC)- Primary [facility] Diagnosis Conjunctival hemorrhage, right eye- Primary Combined forms of age-related cataract of left eye Other and combined forms of senile cataract Combined form of age-related cataract, right eye 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 Punctate keratitis, bilateral Dry eye syndrome, bilateral Unspecified sleep apnea Malignant neoplasm of upper-outer quadrant of right breast in female, estrogen receptor positive (HCC) Combined form of age-related cataract, left eye [facility] Diagnosis Bone metastases (HCC)- Primary Secondary malignant neoplasm of bone and bone marrow Malignant neoplasm of upper-outer quadrant of right breast in female, estrogen receptor positive (HCC) Combined form of age-related cataract, left eye [facility] Diagnosis Malignant neoplasm of upper-outer quadrant of right breast in female, estrogen receptor positive (HCC)- Primary Bone metastases (HCC) Secondary malignant neoplasm of bone and bone marrow Breast screening Breast screening, unspecified Encounter for screening mammogram for malignant neoplasm of breast Other screening mammogram Combined form of age-related cataract, left eye [facility] Diagnosis Pain in both lower legs- Primary Combined form of age-related cataract, left eye [facility] Diagnosis Malignant neoplasm of upper-outer quadrant of right breast in female, estrogen receptor positive (HCC)- Primary Pleural effusion, malignant Malignant pleural effusion Combined form of age-related cataract, left eye [facility] Diagnosis Combined forms of age-related cataract of right eye- Primary Other and combined forms of senile cataract 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 Punctate keratitis of both eyes Punctate keratitis Dry eye syndrome of both eyes Status post cataract extraction and insertion of intraocular lens of left eye Unspecified sleep apnea Tachycardia Tachycardia, unspecified Malignant neoplasm of upper-outer quadrant of right breast in female, estrogen receptor positive (HCC) [facility] Diagnosis Status post cataract extraction and insertion of intraocular lens of right eye- Primary Status post cataract extraction and insertion of intraocular lens of left eye [facility] Diagnosis Malignant neoplasm of upper-outer quadrant of right breast in female, estrogen receptor positive (HCC)- Primary Pleural effusion, malignant Malignant pleural effusion [facility] Diagnosis Malignant neoplasm of upper-outer quadrant of right breast in female, estrogen receptor positive (HCC)- Primary Pleural effusion, malignant Malignant pleural effusion [facility] Diagnosis Malignant neoplasm of upper-outer quadrant of right breast in female, estrogen receptor positive (HCC)- Primary Bone metastases (HCC) Secondary malignant neoplasm of bone and bone marrow Liver metastasis (HCC) Secondary malignant neoplasm of liver [facility] Diagnosis Bone metastases (HCC)- Primary Secondary malignant neoplasm of bone and bone marrow Malignant neoplasm of upper-outer quadrant of right breast in female, estrogen receptor positive (HCC) [facility] Diagnosis Bone metastasis (HCC)- Primary Secondary malignant neoplasm of bone and bone marrow Malignant neoplasm of lower-inner quadrant of right breast of female, estrogen receptor positive (HCC) [facility] Diagnosis Malignant neoplasm of upper-outer quadrant of right breast in female, estrogen receptor positive (HCC)- Primary Pleural effusion, malignant Malignant pleural effusion [facility] Diagnosis Malignant neoplasm of upper-outer quadrant of right breast in female, estrogen receptor positive (HCC)- Primary Pleural effusion, malignant Malignant pleural effusion [facility] Diagnosis Malignant neoplasm of upper-outer quadrant of right breast in female, estrogen receptor positive (HCC)- Primary Pleural effusion, malignant Malignant pleural effusion [facility] Diagnosis Malignant neoplasm of upper-outer quadrant of right breast in female, estrogen receptor positive (HCC)- Primary Pleural effusion, malignant Malignant pleural effusion [facility] Diagnosis Malignant neoplasm of upper-outer quadrant of right breast in female, estrogen receptor positive (HCC)- Primary 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 [facility] Diagnosis Malignant neoplasm of upper-outer quadrant of right breast in female, estrogen receptor positive (HCC) [facility] Diagnosis Malignant neoplasm metastatic to bone (HCC)- Primary Secondary malignant neoplasm of bone and bone marrow [facility] Diagnosis Malignant neoplasm metastatic to bone (HCC)- Primary Secondary malignant neoplasm of bone and bone marrow Malignant neoplasm of upper-outer quadrant of right breast in female, estrogen receptor positive (HCC) Pleural effusion, malignant Malignant pleural effusion [facility] Diagnosis Malignant neoplasm of upper-outer quadrant of right breast in female, estrogen receptor positive (HCC)- Primary Pleural effusion, malignant Malignant pleural effusion [facility] Diagnosis Malignant neoplasm of left female breast, unspecified estrogen receptor status, unspecified site of breast (HCC) [facility] Diagnosis Malignant neoplasm of upper-inner quadrant of breast in female, estrogen receptor positive, unspecified laterality (HCC) (HCC) [facility] Diagnosis Malignant neoplasm of upper-outer quadrant of right breast in female, estrogen receptor positive (HCC)- Primary Pleural effusion, malignant Malignant pleural effusion [facility] Diagnosis Malignant neoplasm metastatic to bone (HCC)- Primary Secondary malignant neoplasm of bone and bone marrow [facility] Diagnosis Malignant neoplasm of upper-outer quadrant of right breast in female, estrogen receptor positive (HCC) [facility] Diagnosis Malignant neoplasm of upper-outer quadrant of right breast in female, estrogen receptor positive (HCC)- Primary Pleural effusion, malignant Malignant pleural effusion [facility] Diagnosis Malignant neoplasm of upper-outer quadrant of right breast in female, estrogen receptor positive (HCC)- Primary Pleural effusion, malignant Malignant pleural effusion 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 [facility] Diagnosis Malignant neoplasm of upper-outer quadrant of right breast in female, estrogen receptor positive (HCC)- Primary Pleural effusion, malignant Malignant pleural effusion [facility] Diagnosis Malignant neoplasm of breast in female, estrogen receptor positive, unspecified laterality, unspecified site of breast (HCC)- Primary [facility] Diagnosis Pre-operative examination- Primary Preoperative examination, unspecified Pleural effusion, malignant Malignant pleural effusion Malignant neoplasm of upper-outer quadrant of right breast in female, estrogen receptor positive (HCC) Tachycardia Tachycardia, unspecified LAURA (obstructive sleep apnea) Obstructive sleep apnea (adult) (pediatric) Gastroesophageal reflux disease, esophagitis presence not specified Anxiety and depression Dysthymic disorder Class 2 severe obesity due to excess calories with serious comorbidity and body mass index (BMI) of 38.0 to 38.9 in adult (HCC) Malignant neoplasm of upper-outer quadrant of right breast in female, estrogen receptor positive (HCC)- Primary 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 [facility] Diagnosis Pre-operative examination- Primary Preoperative examination, unspecified Pleural effusion, malignant Malignant pleural effusion Malignant neoplasm of upper-outer quadrant of right breast in female, estrogen receptor positive (HCC) Tachycardia Tachycardia, unspecified LAURA (obstructive sleep apnea) Obstructive sleep apnea (adult) (pediatric) Gastroesophageal reflux disease, esophagitis presence not specified Anxiety and depression Dysthymic disorder Class 2 severe obesity due to excess calories with serious comorbidity and body mass index (BMI) of 38.0 to 38.9 in adult (HCC) Malignant neoplasm of upper-outer quadrant of right breast in female, estrogen receptor positive (HCC)- Primary Pleural effusion, malignant Malignant pleural effusion 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 [facility] Diagnosis Pre-operative examination- Primary Preoperative examination, unspecified Pleural effusion, malignant Malignant pleural effusion Malignant neoplasm of upper-outer quadrant of right breast in female, estrogen receptor positive (HCC) Tachycardia Tachycardia, unspecified LAURA (obstructive sleep apnea) Obstructive sleep apnea (adult) (pediatric) Gastroesophageal reflux disease, esophagitis presence not specified Anxiety and depression Dysthymic disorder Class 2 severe obesity due to excess calories with serious comorbidity and body mass index (BMI) of 38.0 to 38.9 in adult (HCC) Malignant neoplasm of upper-outer quadrant of right breast in female, estrogen receptor positive (HCC)- Primary Pleural effusion, malignant Malignant pleural effusion [facility] Diagnosis Pre-operative examination- Primary Preoperative examination, unspecified Pleural effusion, malignant Malignant pleural effusion Malignant neoplasm of upper-outer quadrant of right breast in female, estrogen receptor positive (HCC) Tachycardia Tachycardia, unspecified LAURA (obstructive sleep apnea) Obstructive sleep apnea (adult) (pediatric) Gastroesophageal reflux disease, esophagitis presence not specified Anxiety and depression Dysthymic disorder Class 2 severe obesity due to excess calories with serious comorbidity and body mass index (BMI) of 38.0 to 38.9 in adult (HCC) Malignant neoplasm of breast in female, estrogen receptor positive, unspecified laterality, unspecified site of breast (HCC) [facility] Diagnosis Pre-operative examination- Primary Preoperative examination, unspecified Pleural effusion, malignant Malignant pleural effusion Malignant neoplasm of upper-outer quadrant of right breast in female, estrogen receptor positive (HCC) Tachycardia Tachycardia, unspecified LAURA (obstructive sleep apnea) Obstructive sleep apnea (adult) (pediatric) Gastroesophageal reflux disease, esophagitis presence not specified Anxiety and depression Dysthymic disorder Class 2 severe obesity due to excess calories with serious comorbidity and body mass index (BMI) of 38.0 to 38.9 in adult (HCC) Malignant neoplasm of upper-outer quadrant of right breast in female, estrogen receptor positive (HCC)- Primary Pleural effusion, malignant Malignant pleural effusion [facility] Diagnosis Pre-operative examination- Primary Preoperative examination, unspecified Pleural effusion, malignant Malignant pleural effusion Malignant neoplasm of upper-outer quadrant of right breast in female, estrogen receptor positive (HCC) Tachycardia Tachycardia, unspecified LAURA (obstructive sleep apnea) Obstructive sleep apnea (adult) (pediatric) Gastroesophageal reflux disease, esophagitis presence not specified Anxiety and depression Dysthymic disorder Class 2 severe obesity due to excess calories with serious comorbidity and body mass index (BMI) of 38.0 to 38.9 in adult (HCC) Pleural effusion, malignant- Primary Malignant pleural effusion 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 Other abnormal tumor markers [facility] Diagnosis Pre-operative examination- Primary Preoperative examination, unspecified Pleural effusion, malignant Malignant pleural effusion Malignant neoplasm of upper-outer quadrant of right breast in female, estrogen receptor positive (HCC) Tachycardia Tachycardia, unspecified LAURA (obstructive sleep apnea) Obstructive sleep apnea (adult) (pediatric) Gastroesophageal reflux disease, esophagitis presence not specified Anxiety and depression Dysthymic disorder Class 2 severe obesity due to excess calories with serious comorbidity and body mass index (BMI) of 38.0 to 38.9 in adult (HCC) Pleural effusion, malignant Malignant pleural effusion 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 [facility] Diagnosis Pre-operative examination- Primary Preoperative examination, unspecified Pleural effusion, malignant Malignant pleural effusion Malignant neoplasm of upper-outer quadrant of right breast in female, estrogen receptor positive (HCC) Tachycardia Tachycardia, unspecified LAURA (obstructive sleep apnea) Obstructive sleep apnea (adult) (pediatric) Gastroesophageal reflux disease, esophagitis presence not specified Anxiety and depression Dysthymic disorder Class 2 severe obesity due to excess calories with serious comorbidity and body mass index (BMI) of 38.0 to 38.9 in adult (HCC) Malignant neoplasm metastatic to bone (HCC)- Primary Secondary malignant neoplasm of bone and bone marrow [facility] Diagnosis Pre-operative examination- Primary Preoperative examination, unspecified Pleural effusion, malignant Malignant pleural effusion Malignant neoplasm of upper-outer quadrant of right breast in female, estrogen receptor positive (HCC) Tachycardia Tachycardia, unspecified LAURA (obstructive sleep apnea) Obstructive sleep apnea (adult) (pediatric) Gastroesophageal reflux disease, esophagitis presence not specified Anxiety and depression Dysthymic disorder Class 2 severe obesity due to excess calories with serious comorbidity and body mass index (BMI) of 38.0 to 38.9 in adult (HCC) Malignant neoplasm metastatic to bone (HCC)- Primary Secondary malignant neoplasm of bone and bone marrow [facility] Diagnosis Pre-operative examination- Primary Preoperative examination, unspecified Pleural effusion, malignant Malignant pleural effusion Malignant neoplasm of upper-outer quadrant of right breast in female, estrogen receptor positive (HCC) Tachycardia Tachycardia, unspecified LAURA (obstructive sleep apnea) Obstructive sleep apnea (adult) (pediatric) Gastroesophageal reflux disease, esophagitis presence not specified Anxiety and depression Dysthymic disorder Class 2 severe obesity due to excess calories with serious comorbidity and body mass index (BMI) of 38.0 to 38.9 in adult (HCC) Malignant neoplasm metastatic to bone (HCC)- Primary Secondary malignant neoplasm of bone and bone marrow [facility] Diagnosis Pre-operative examination- Primary Preoperative examination, unspecified Pleural effusion, malignant Malignant pleural effusion Malignant neoplasm of upper-outer quadrant of right breast in female, estrogen receptor positive (HCC) Tachycardia Tachycardia, unspecified LAURA (obstructive sleep apnea) Obstructive sleep apnea (adult) (pediatric) Gastroesophageal reflux disease, esophagitis presence not specified Anxiety and depression Dysthymic disorder Class 2 severe obesity due to excess calories with serious comorbidity and body mass index (BMI) of 38.0 to 38.9 in adult (HCC) Malignant neoplasm of upper-outer quadrant of right breast in female, estrogen receptor positive (HCC)- Primary Pleural effusion, malignant Malignant pleural effusion 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 [facility] Diagnosis Pre-operative examination- Primary Preoperative examination, unspecified Pleural effusion, malignant Malignant pleural effusion Malignant neoplasm of upper-outer quadrant of right breast in female, estrogen receptor positive (HCC) Tachycardia Tachycardia, unspecified LAURA (obstructive sleep apnea) Obstructive sleep apnea (adult) (pediatric) Gastroesophageal reflux disease, esophagitis presence not specified Anxiety and depression Dysthymic disorder Class 2 severe obesity due to excess calories with serious comorbidity and body mass index (BMI) of 38.0 to 38.9 in adult (HCC) Malignant neoplasm of upper-outer quadrant of right breast in female, estrogen receptor positive (HCC)- Primary Pleural effusion, malignant Malignant pleural effusion [facility] Diagnosis Pre-operative examination- Primary Preoperative examination, unspecified Pleural effusion, malignant Malignant pleural effusion Malignant neoplasm of upper-outer quadrant of right breast in female, estrogen receptor positive (HCC) Tachycardia Tachycardia, unspecified LAURA (obstructive sleep apnea) Obstructive sleep apnea (adult) (pediatric) Gastroesophageal reflux disease, esophagitis presence not specified Anxiety and depression Dysthymic disorder Class 2 severe obesity due to excess calories with serious comorbidity and body mass index (BMI) of 38.0 to 38.9 in adult (HCC) Radiotherapy follow-up- Primary Radiotherapy follow-up examination 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 documented in this encounter [facility] note* Diagnosis Pre-operative examination- Primary Preoperative examination, unspecified Pleural effusion, malignant Malignant pleural effusion Malignant neoplasm of upper-outer quadrant of right breast in female, estrogen receptor positive (HCC) Tachycardia Tachycardia, unspecified LAURA (obstructive sleep apnea) Obstructive sleep apnea (adult) (pediatric) Gastroesophageal reflux disease, esophagitis presence not specified Anxiety and depression Dysthymic disorder Class 2 severe obesity due to excess calories with serious comorbidity and body mass index (BMI) of 38.0 to 38.9 in adult (HCC) Malignant neoplasm of breast in female, estrogen receptor positive, unspecified laterality, unspecified site of breast (HCC)- Primary documented in this encounter [facility] note* Diagnosis Pre-operative examination- Primary Preoperative examination, unspecified Pleural effusion, malignant Malignant pleural effusion Malignant neoplasm of upper-outer quadrant of right breast in female, estrogen receptor positive (HCC) Tachycardia Tachycardia, unspecified LAURA (obstructive sleep apnea) Obstructive sleep apnea (adult) (pediatric) Gastroesophageal reflux disease, esophagitis presence not specified Anxiety and depression Dysthymic disorder Class 2 severe obesity due to excess calories with serious comorbidity and body mass index (BMI) of 38.0 to 38.9 in adult (HCC) Malignant neoplasm of breast in female, estrogen receptor positive, unspecified laterality, unspecified site of breast (HCC) documented in this encounter [facility] note* Diagnosis Pre-operative examination- Primary Preoperative examination, unspecified Pleural effusion, malignant Malignant pleural effusion Malignant neoplasm of upper-outer quadrant of right breast in female, estrogen receptor positive (HCC) Tachycardia Tachycardia, unspecified LAURA (obstructive sleep apnea) Obstructive sleep apnea (adult) (pediatric) Gastroesophageal reflux disease, esophagitis presence not specified Anxiety and depression Dysthymic disorder Class 2 severe obesity due to excess calories with serious comorbidity and body mass index (BMI) of 38.0 to 38.9 in adult (HCC) Malignant neoplasm of breast in female, estrogen receptor positive, unspecified laterality, unspecified site of breast (HCC)- Primary Malignant neoplasm of upper-outer quadrant of right breast in female, estrogen receptor positive (HCC) Pleural effusion, malignant Malignant pleural effusion 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 documented in this encounter [facility] note* Diagnosis Pre-operative examination- Primary Preoperative examination, unspecified Pleural effusion, malignant Malignant pleural effusion Malignant neoplasm of upper-outer quadrant of right breast in female, estrogen receptor positive (HCC) Tachycardia Tachycardia, unspecified LAURA (obstructive sleep apnea) Obstructive sleep apnea (adult) (pediatric) Gastroesophageal reflux disease, esophagitis presence not specified Anxiety and depression Dysthymic disorder Class 2 severe obesity due to excess calories with serious comorbidity and body mass index (BMI) of 38.0 to 38.9 in adult (HCC) Malignant neoplasm of upper-outer quadrant of right breast in female, estrogen receptor positive (HCC)- Primary Pleural effusion, malignant Malignant pleural effusion [facility] note* Diagnosis Pre-operative examination- Primary Preoperative examination, unspecified Pleural effusion, malignant Malignant pleural effusion Malignant neoplasm of upper-outer quadrant of right breast in female, estrogen receptor positive (HCC) Tachycardia Tachycardia, unspecified LAURA (obstructive sleep apnea) Obstructive sleep apnea (adult) (pediatric) Gastroesophageal reflux disease, esophagitis presence not specified Anxiety and depression Dysthymic disorder Class 2 severe obesity due to excess calories with serious comorbidity and body mass index (BMI) of 38.0 to 38.9 in adult (HCC) Malignant neoplasm of upper-outer quadrant of right breast in female, estrogen receptor positive (HCC)- Primary Pleural effusion, malignant Malignant pleural effusion 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 [facility]* Diagnosis Pre-operative examination- Primary Preoperative examination, unspecified Pleural effusion, malignant (HCC) Malignant pleural effusion Malignant neoplasm of upper-outer quadrant of right breast in female, estrogen receptor positive (HCC) Tachycardia Tachycardia, unspecified LAURA (obstructive sleep apnea) Obstructive sleep apnea (adult) (pediatric) Gastroesophageal reflux disease, esophagitis presence not specified Anxiety and depression Dysthymic disorder Class 2 severe obesity due to excess calories with serious comorbidity and body mass index (BMI) of 38.0 to 38.9 in adult (HCC) Malignant neoplasm of upper-outer quadrant of right breast in female, estrogen receptor positive (HCC)- Primary Pleural effusion, malignant (HCC) Malignant pleural effusion 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 Malignant neoplasm of breast in female, estrogen receptor positive, unspecified laterality, unspecified site of breast (HCC) [facility]* Diagnosis Intussusception (Multi)- Primary Intussusception Intussusception (Multi) Intussusception Upper abdominal pain Intussusception, ileocecal (Multi) Intussusception Intestinal obstruction, unspecified cause, unspecified whether partial or complete (Multi) HTN (hypertension) Unspecified essential hypertension LAURA (obstructive sleep apnea) Obstructive sleep apnea (adult) (pediatric) Immunocompromised Unspecified immunity deficiency documented in this encounter [facility] Work Phone: Evaluation note* Diagnosis Intussusception (Multi)- Primary Intussusception documented in this encounter [facility] Work Phone: Instructions* Name Dates Details Patient Instructions Indication:Non-smoker Start:26-Mar-2020 Instruction Type:Provider Instructions for Treatment How to Access Health Informa tion Online using Patient Portal and [employer]rd [employer] Apps Indication:Non-smoker Start:26-Mar-2020 Instruction Type:Patient Education How to access health informa tion online Indication:BMI 35.0-35.9,adult Start:13-Dec-2019 Instruction Type:Patient Education How to access health informa tion online - Detail Indication:BMI 35.0-35.9,adult Start:13-Dec-2019 Instruction Type:Patient Education Patient Instructions Indication:BMI 35.0-35.9,adult Start:13-Dec-2019 Instruction Type:Provider Instructions for Treatment How to access health informa tion online Indication:BMI 35.0-35.9,adult Start:15-Jun-2019 Instruction Type:Patient Education How to access health informa tion online - Detail Indication:BMI 35.0-35.9,adult Start:15-Jun-2019 Instruction Type:Patient Education Patient Instructions Indication:BMI 35.0-35.9,adult Start:15-Jun-2019 Instruction Type:Provider Instructions for Treatment How to access health informa tion online Indication:Non-smoker Start:29-Dec-2018 Instruction Type:Patient Education How to access health informa tion online - Detail Indication:Non-smoker Start:29-Dec-2018 Instruction Type:Patient Education Patient Instructions Indication:Non-smoker Start:29-Dec-2018 Instruction Type:Provider Instructions for Treatment How to access health informa tion online Indication:Non-smoker Start:21-Dec-2018 Instruction Type:Patient Education How to access health informa tion online - Detail Indication:Non-smoker Start:21-Dec-2018 Instruction Type:Patient Education Patient Instructions Indication:Non-smoker Start:21-Dec-2018 Instruction Type:Provider Instructions for Treatment How to access health informa tion online Indication:Non-smoker Start:23-Nov-2018 Instruction Type:Patient Education How to access health informa tion online - Detail Indication:Non-smoker Start:23-Nov-2018 Instruction Type:Patient Education Patient Instructions Indication:Non-smoker Start:23-Nov-2018 Instruction Type:Provider Instructions for Treatment How to access health informa tion online Indication:Non-smoker Start:08-Nov-2018 Instruction Type:Patient Education How to access health informa tion online - Detail Indication:Non-smoker Start:08-Nov-2018 Instruction Type:Patient Education Patient Instructions Indication:Non-smoker Start:08-Nov-2018 Instruction Type:Provider Instructions for Treatment How to access health informa tion online Indication:Non-smoker Start:05-Jul-2018 Instruction Type:Patient Education How to access health informa tion online - Detail Indication:Non-smoker Start:05-Jul-2018 Instruction Type:Patient Education Patient Instructions Indication:Non-smoker Start:05-Jul-2018 Instruction Type:Provider Instructions for Treatment How to access health informa tion online Indication:Non-smoker Start:01-Jul-2018 Instruction Type:Patient Education How to access health informa tion online - Detail Indication:Non-smoker Start:01-Jul-2018 Instruction Type:Patient Education Patient Instructions Indication:Non-smoker Start:01-Jul-2018 Instruction Type:Provider Instructions for Treatment obesity counseling Indication:Benign essential HTN Start:02-Oct-2017 Instruction Type:Provider Instructions for Treatment How to access health informa tion online Indication:BMI 40.0-44.9, adult Start:02-Oct-2017 Instruction Type:Patient Education How to access health informa tion online - Detail Indication:BMI 40.0-44.9, adult Start:02-Oct-2017 Instruction Type:Patient Education Patient Instructions Indication:BMI 40.0-44.9, adult Start:02-Oct-2017 Instruction Type:Provider Instructions for Treatment How to access health informa tion online Indication:Non-smoker Start:04-Sep-2017 Instruction Type:Patient Education How to access health informa tion online - Detail Indication:Non-smoker Start:04-Sep-2017 Instruction Type:Patient Education Patient Instructions Indication:Non-smoker Start:04-Sep-2017 Instruction Type:Provider Instructions for Treatment How to access health informa tion online Indication:Non-smoker Start:03-Nov-2016 Instruction Type:Patient Education How to access health informa tion online - Detail Indication:Non-smoker Start:03-Nov-2016 Instruction Type:Patient Education Patient Instructions Indication:Non-smoker Start:03-Nov-2016 Instruction Type:Provider Instructions for Treatment How to access health informa tion online Indication:Non-smoker Start:20-Oct-2016 Instruction Type:Patient Education How to access health informa tion online - Detail Indication:Non-smoker Start:20-Oct-2016 Instruction Type:Patient Education Patient Instructions Indication:Non-smoker Start:20-Oct-2016 Instruction Type:Provider Instructions for Treatment obesity counseling Indication:Benign essential HTN Start:15-Sep-2016 Instruction Type:Provider Instructions for Treatment How to access health informa tion online Indication:Non-smoker Start:15-Sep-2016 Instruction Type:Patient Education How to access health informa tion online - Detail Indication:Non-smoker Start:15-Sep-2016 Instruction Type:Patient Education Patient Instructions Indication:Non-smoker Start:15-Sep-2016 Instruction Type:Provider Instructions for Treatment How to access health informa tion online Indication:Anxiety Start:02-May-2016 Instruction Type:Patient Education How to access health informa tion online - Detail Indication:Anxiety Start:02-May-2016 Instruction Type:Patient Education Patient Instructions Indication:Anxiety Start:02-May-2016 Instruction Type:Provider Instructions for Treatment obesity counseling Indication:Benign essential HTN Start:10-Sep-2015 Instruction Type:Provider Instructions for Treatment How to access health informa tion online Indication:Anxiety Start:10-Sep-2015 Instruction Type:Patient Education How to access health informa tion online - Detail Indication:Anxiety Start:10-Sep-2015 Instruction Type:Patient Education Patient Instructions Indication:Anxiety Start:10-Sep-2015 Instruction Type:Provider Instructions for Treatment How to access health informa tion online Indication:Hyperlipidemia, mild Start:03-Sep-2015 Instruction Type:Patient Education How to access health informa tion online - Detail Indication:Hyperlipidemia, mild Start:03-Sep-2015 Instruction Type:Patient Education Patient Instructions Indication:Hyperlipidemia, mild Start:03-Sep-2015 Instruction Type:Provider Instructions for Treatment Patient Instructions Indication:Screening, lipid Start:15-May-2014 Instruction Type:Provider Instructions for Treatment [facility]; [facility] Work Phone: Instructions* Name Dates Details obesity counseling Indication:LAURA on CPAP Start:05-Oct-2020 Instruction Type:Provider Instructions for Treatment cardiovascular counseling Indication:Benign essential HTN Start:05-Oct-2020 Instruction Type:Provider Instructions for Treatment Patient Instructions Indication:Non-smoker Start:26-Mar-2020 Instruction Type:Provider Instructions for Treatment How to Access Health Informa tion Online using Patient Portal and [employer]rd [employer] Apps Indication:Non-smoker Start:26-Mar-2020 Instruction Type:Patient Education How to access health informa tion online Indication:BMI 35.0-35.9,adult Start:13-Dec-2019 Instruction Type:Patient Education How to access health informa tion online - Detail Indication:BMI 35.0-35.9,adult Start:13-Dec-2019 Instruction Type:Patient Education Patient Instructions Indication:BMI 35.0-35.9,adult Start:13-Dec-2019 Instruction Type:Provider Instructions for Treatment How to access health informa tion online Indication:BMI 35.0-35.9,adult Start:15-Jun-2019 Instruction Type:Patient Education How to access health informa tion online - Detail Indication:BMI 35.0-35.9,adult Start:15-Jun-2019 Instruction Type:Patient Education Patient Instructions Indication:BMI 35.0-35.9,adult Start:15-Jun-2019 Instruction Type:Provider Instructions for Treatment How to access health informa tion online Indication:Non-smoker Start:29-Dec-2018 Instruction Type:Patient Education How to access health informa tion online - Detail Indication:Non-smoker Start:29-Dec-2018 Instruction Type:Patient Education Patient Instructions Indication:Non-smoker Start:29-Dec-2018 Instruction Type:Provider Instructions for Treatment How to access health informa tion online Indication:Non-smoker Start:21-Dec-2018 Instruction Type:Patient Education How to access health informa tion online - Detail Indication:Non-smoker Start:21-Dec-2018 Instruction Type:Patient Education Patient Instructions Indication:Non-smoker Start:21-Dec-2018 Instruction Type:Provider Instructions for Treatment How to access health informa tion online Indication:Non-smoker Start:23-Nov-2018 Instruction Type:Patient Education How to access health informa tion online - Detail Indication:Non-smoker Start:23-Nov-2018 Instruction Type:Patient Education Patient Instructions Indication:Non-smoker Start:23-Nov-2018 Instruction Type:Provider Instructions for Treatment How to access health informa tion online Indication:Non-smoker Start:08-Nov-2018 Instruction Type:Patient Education How to access health informa tion online - Detail Indication:Non-smoker Start:08-Nov-2018 Instruction Type:Patient Education Patient Instructions Indication:Non-smoker Start:08-Nov-2018 Instruction Type:Provider Instructions for Treatment How to access health informa tion online Indication:Non-smoker Start:05-Jul-2018 Instruction Type:Patient Education How to access health informa tion online - Detail Indication:Non-smoker Start:05-Jul-2018 Instruction Type:Patient Education Patient Instructions Indication:Non-smoker Start:05-Jul-2018 Instruction Type:Provider Instructions for Treatment How to access health informa tion online Indication:Non-smoker Start:01-Jul-2018 Instruction Type:Patient Education How to access health informa tion online - Detail Indication:Non-smoker Start:01-Jul-2018 Instruction Type:Patient Education Patient Instructions Indication:Non-smoker Start:01-Jul-2018 Instruction Type:Provider Instructions for Treatment obesity counseling Indication:Benign essential HTN Start:02-Oct-2017 Instruction Type:Provider Instructions for Treatment How to access health informa tion online Indication:BMI 40.0-44.9, adult Start:02-Oct-2017 Instruction Type:Patient Education How to access health informa tion online - Detail Indication:BMI 40.0-44.9, adult Start:02-Oct-2017 Instruction Type:Patient Education Patient Instructions Indication:BMI 40.0-44.9, adult Start:02-Oct-2017 Instruction Type:Provider Instructions for Treatment How to access health informa tion online Indication:Non-smoker Start:04-Sep-2017 Instruction Type:Patient Education How to access health informa tion online - Detail Indication:Non-smoker Start:04-Sep-2017 Instruction Type:Patient Education Patient Instructions Indication:Non-smoker Start:04-Sep-2017 Instruction Type:Provider Instructions for Treatment How to access health informa tion online Indication:Non-smoker Start:03-Nov-2016 Instruction Type:Patient Education How to access health informa tion online - Detail Indication:Non-smoker Start:03-Nov-2016 Instruction Type:Patient Education Patient Instructions Indication:Non-smoker Start:03-Nov-2016 Instruction Type:Provider Instructions for Treatment How to access health informa tion online Indication:Non-smoker Start:20-Oct-2016 Instruction Type:Patient Education How to access health informa tion online - Detail Indication:Non-smoker Start:20-Oct-2016 Instruction Type:Patient Education Patient Instructions Indication:Non-smoker Start:20-Oct-2016 Instruction Type:Provider Instructions for Treatment obesity counseling Indication:Benign essential HTN Start:15-Sep-2016 Instruction Type:Provider Instructions for Treatment How to access health informa tion online Indication:Non-smoker Start:15-Sep-2016 Instruction Type:Patient Education How to access health informa tion online - Detail Indication:Non-smoker Start:15-Sep-2016 Instruction Type:Patient Education Patient Instructions Indication:Non-smoker Start:15-Sep-2016 Instruction Type:Provider Instructions for Treatment How to access health informa tion online Indication:Anxiety Start:02-May-2016 Instruction Type:Patient Education How to access health informa tion online - Detail Indication:Anxiety Start:02-May-2016 Instruction Type:Patient Education Patient Instructions Indication:Anxiety Start:02-May-2016 Instruction Type:Provider Instructions for Treatment obesity counseling Indication:Benign essential HTN Start:10-Sep-2015 Instruction Type:Provider Instructions for Treatment How to access health informa tion online Indication:Anxiety Start:10-Sep-2015 Instruction Type:Patient Education How to access health informa tion online - Detail Indication:Anxiety Start:10-Sep-2015 Instruction Type:Patient Education Patient Instructions Indication:Anxiety Start:10-Sep-2015 Instruction Type:Provider Instructions for Treatment How to access health informa tion online Indication:Hyperlipidemia, mild Start:03-Sep-2015 Instruction Type:Patient Education How to access health informa tion online - Detail Indication:Hyperlipidemia, mild Start:03-Sep-2015 Instruction Type:Patient Education Patient Instructions Indication:Hyperlipidemia, mild Start:03-Sep-2015 Instruction Type:Provider Instructions for Treatment Patient Instructions Indication:Screening, lipid Start:15-May-2014 Instruction Type:Provider Instructions for Treatment [facility]; [facility] Work Phone: Instructions* Name Dates Details Patient Instructions Indication:BMI 29.0-29.9,adult Start:18-Dec-2021 Instruction Type:Provider Instructions for Treatment How to Access Health Informa tion Online using Patient Portal and [employer]rd [employer] Apps Indication:BMI 29.0-29.9,adult Start:18-Dec-2021 Instruction Type:Patient Education obesity counseling Indication:LAURA on CPAP Start:05-Oct-2020 Instruction Type:Provider Instructions for Treatment cardiovascular counseling Indication:Benign essential HTN Start:05-Oct-2020 Instruction Type:Provider Instructions for Treatment Patient Instructions Indication:Non-smoker Start:26-Mar-2020 Instruction Type:Provider Instructions for Treatment How to Access Health Informa tion Online using Patient Portal and [employer]rd [employer] Apps Indication:Non-smoker Start:26-Mar-2020 Instruction Type:Patient Education How to access health informa tion online Indication:BMI 35.0-35.9,adult Start:13-Dec-2019 Instruction Type:Patient Education How to access health informa tion online - Detail Indication:BMI 35.0-35.9,adult Start:13-Dec-2019 Instruction Type:Patient Education Patient Instructions Indication:BMI 35.0-35.9,adult Start:13-Dec-2019 Instruction Type:Provider Instructions for Treatment How to access health informa tion online Indication:BMI 35.0-35.9,adult Start:15-Jun-2019 Instruction Type:Patient Education How to access health informa tion online - Detail Indication:BMI 35.0-35.9,adult Start:15-Jun-2019 Instruction Type:Patient Education Patient Instructions Indication:BMI 35.0-35.9,adult Start:15-Jun-2019 Instruction Type:Provider Instructions for Treatment How to access health informa tion online Indication:Non-smoker Start:29-Dec-2018 Instruction Type:Patient Education How to access health informa tion online - Detail Indication:Non-smoker Start:29-Dec-2018 Instruction Type:Patient Education Patient Instructions Indication:Non-smoker Start:29-Dec-2018 Instruction Type:Provider Instructions for Treatment How to access health informa tion online Indication:Non-smoker Start:21-Dec-2018 Instruction Type:Patient Education How to access health informa tion online - Detail Indication:Non-smoker Start:21-Dec-2018 Instruction Type:Patient Education Patient Instructions Indication:Non-smoker Start:21-Dec-2018 Instruction Type:Provider Instructions for Treatment How to access health informa tion online Indication:Non-smoker Start:23-Nov-2018 Instruction Type:Patient Education How to access health informa tion online - Detail Indication:Non-smoker Start:23-Nov-2018 Instruction Type:Patient Education Patient Instructions Indication:Non-smoker Start:23-Nov-2018 Instruction Type:Provider Instructions for Treatment How to access health informa tion online Indication:Non-smoker Start:08-Nov-2018 Instruction Type:Patient Education How to access health informa tion online - Detail Indication:Non-smoker Start:08-Nov-2018 Instruction Type:Patient Education Patient Instructions Indication:Non-smoker Start:08-Nov-2018 Instruction Type:Provider Instructions for Treatment How to access health informa tion online Indication:Non-smoker Start:05-Jul-2018 Instruction Type:Patient Education How to access health informa tion online - Detail Indication:Non-smoker Start:05-Jul-2018 Instruction Type:Patient Education Patient Instructions Indication:Non-smoker Start:05-Jul-2018 Instruction Type:Provider Instructions for Treatment How to access health informa tion online Indication:Non-smoker Start:01-Jul-2018 Instruction Type:Patient Education How to access health informa tion online - Detail Indication:Non-smoker Start:01-Jul-2018 Instruction Type:Patient Education Patient Instructions Indication:Non-smoker Start:01-Jul-2018 Instruction Type:Provider Instructions for Treatment obesity counseling Indication:Benign essential HTN Start:02-Oct-2017 Instruction Type:Provider Instructions for Treatment How to access health informa tion online Indication:BMI 40.0-44.9, adult Start:02-Oct-2017 Instruction Type:Patient Education How to access health informa tion online - Detail Indication:BMI 40.0-44.9, adult Start:02-Oct-2017 Instruction Type:Patient Education Patient Instructions Indication:BMI 40.0-44.9, adult Start:02-Oct-2017 Instruction Type:Provider Instructions for Treatment How to access health informa tion online Indication:Non-smoker Start:04-Sep-2017 Instruction Type:Patient Education How to access health informa tion online - Detail Indication:Non-smoker Start:04-Sep-2017 Instruction Type:Patient Education Patient Instructions Indication:Non-smoker Start:04-Sep-2017 Instruction Type:Provider Instructions for Treatment How to access health informa tion online Indication:Non-smoker Start:03-Nov-2016 Instruction Type:Patient Education How to access health informa tion online - Detail Indication:Non-smoker Start:03-Nov-2016 Instruction Type:Patient Education Patient Instructions Indication:Non-smoker Start:03-Nov-2016 Instruction Type:Provider Instructions for Treatment How to access health informa tion online Indication:Non-smoker Start:20-Oct-2016 Instruction Type:Patient Education How to access health informa tion online - Detail Indication:Non-smoker Start:20-Oct-2016 Instruction Type:Patient Education Patient Instructions Indication:Non-smoker Start:20-Oct-2016 Instruction Type:Provider Instructions for Treatment obesity counseling Indication:Benign essential HTN Start:15-Sep-2016 Instruction Type:Provider Instructions for Treatment How to access health informa tion online Indication:Non-smoker Start:15-Sep-2016 Instruction Type:Patient Education How to access health informa tion online - Detail Indication:Non-smoker Start:15-Sep-2016 Instruction Type:Patient Education Patient Instructions Indication:Non-smoker Start:15-Sep-2016 Instruction Type:Provider Instructions for Treatment How to access health informa tion online Indication:Anxiety Start:02-May-2016 Instruction Type:Patient Education How to access health informa tion online - Detail Indication:Anxiety Start:02-May-2016 Instruction Type:Patient Education Patient Instructions Indication:Anxiety Start:02-May-2016 Instruction Type:Provider Instructions for Treatment obesity counseling Indication:Benign essential HTN Start:10-Sep-2015 Instruction Type:Provider Instructions for Treatment How to access health informa tion online Indication:Anxiety Start:10-Sep-2015 Instruction Type:Patient Education How to access health informa tion online - Detail Indication:Anxiety Start:10-Sep-2015 Instruction Type:Patient Education Patient Instructions Indication:Anxiety Start:10-Sep-2015 Instruction Type:Provider Instructions for Treatment How to access health informa tion online Indication:Hyperlipidemia, mild Start:03-Sep-2015 Instruction Type:Patient Education How to access health informa tion online - Detail Indication:Hyperlipidemia, mild Start:03-Sep-2015 Instruction Type:Patient Education Patient Instructions Indication:Hyperlipidemia, mild Start:03-Sep-2015 Instruction Type:Provider Instructions for Treatment Patient Instructions Indication:Screening, lipid Start:15-May-2014 Instruction Type:Provider Instructions for Treatment [facility]; [facility] Work Phone: Instructions* Name Dates Details Patient Instructions Indication:BMI 29.0-29.9,adult Start:18-Dec-2021 Instruction Type:Provider Instructions for Treatment How to Access Health Informa tion Online using Patient Portal and [employer]rd [employer] Apps Indication:BMI 29.0-29.9,adult Start:18-Dec-2021 Instruction Type:Patient Education obesity counseling Indication:LAURA on CPAP Start:05-Oct-2020 Instruction Type:Provider Instructions for Treatment cardiovascular counseling Indication:Benign essential HTN Start:05-Oct-2020 Instruction Type:Provider Instructions for Treatment Patient Instructions Indication:Non-smoker Start:26-Mar-2020 Instruction Type:Provider Instructions for Treatment How to Access Health Informa tion Online using Patient Portal and [employer]rd [employer] Apps Indication:Non-smoker Start:26-Mar-2020 Instruction Type:Patient Education How to access health informa tion online Indication:BMI 35.0-35.9,adult Start:13-Dec-2019 Instruction Type:Patient Education How to access health informa tion online - Detail Indication:BMI 35.0-35.9,adult Start:13-Dec-2019 Instruction Type:Patient Education Patient Instructions Indication:BMI 35.0-35.9,adult Start:13-Dec-2019 Instruction Type:Provider Instructions for Treatment How to access health informa tion online Indication:BMI 35.0-35.9,adult Start:15-Jun-2019 Instruction Type:Patient Education How to access health informa tion online - Detail Indication:BMI 35.0-35.9,adult Start:15-Jun-2019 Instruction Type:Patient Education Patient Instructions Indication:BMI 35.0-35.9,adult Start:15-Jun-2019 Instruction Type:Provider Instructions for Treatment How to access health informa tion online Indication:Non-smoker Start:29-Dec-2018 Instruction Type:Patient Education How to access health informa tion online - Detail Indication:Non-smoker Start:29-Dec-2018 Instruction Type:Patient Education Patient Instructions Indication:Non-smoker Start:29-Dec-2018 Instruction Type:Provider Instructions for Treatment How to access health informa tion online Indication:Non-smoker Start:21-Dec-2018 Instruction Type:Patient Education How to access health informa tion online - Detail Indication:Non-smoker Start:21-Dec-2018 Instruction Type:Patient Education Patient Instructions Indication:Non-smoker Start:21-Dec-2018 Instruction Type:Provider Instructions for Treatment How to access health informa tion online Indication:Non-smoker Start:23-Nov-2018 Instruction Type:Patient Education How to access health informa tion online - Detail Indication:Non-smoker Start:23-Nov-2018 Instruction Type:Patient Education Patient Instructions Indication:Non-smoker Start:23-Nov-2018 Instruction Type:Provider Instructions for Treatment How to access health informa tion online Indication:Non-smoker Start:08-Nov-2018 Instruction Type:Patient Education How to access health informa tion online - Detail Indication:Non-smoker Start:08-Nov-2018 Instruction Type:Patient Education Patient Instructions Indication:Non-smoker Start:08-Nov-2018 Instruction Type:Provider Instructions for Treatment How to access health informa tion online Indication:Non-smoker Start:05-Jul-2018 Instruction Type:Patient Education How to access health informa tion online - Detail Indication:Non-smoker Start:05-Jul-2018 Instruction Type:Patient Education Patient Instructions Indication:Non-smoker Start:05-Jul-2018 Instruction Type:Provider Instructions for Treatment How to access health informa tion online Indication:Non-smoker Start:01-Jul-2018 Instruction Type:Patient Education How to access health informa tion online - Detail Indication:Non-smoker Start:01-Jul-2018 Instruction Type:Patient Education Patient Instructions Indication:Non-smoker Start:01-Jul-2018 Instruction Type:Provider Instructions for Treatment obesity counseling Indication:Benign essential HTN Start:02-Oct-2017 Instruction Type:Provider Instructions for Treatment How to access health informa tion online Indication:BMI 40.0-44.9, adult Start:02-Oct-2017 Instruction Type:Patient Education How to access health informa tion online - Detail Indication:BMI 40.0-44.9, adult Start:02-Oct-2017 Instruction Type:Patient Education Patient Instructions Indication:BMI 40.0-44.9, adult Start:02-Oct-2017 Instruction Type:Provider Instructions for Treatment How to access health informa tion online Indication:Non-smoker Start:04-Sep-2017 Instruction Type:Patient Education How to access health informa tion online - Detail Indication:Non-smoker Start:04-Sep-2017 Instruction Type:Patient Education Patient Instructions Indication:Non-smoker Start:04-Sep-2017 Instruction Type:Provider Instructions for Treatment How to access health informa tion online Indication:Non-smoker Start:03-Nov-2016 Instruction Type:Patient Education How to access health informa tion online - Detail Indication:Non-smoker Start:03-Nov-2016 Instruction Type:Patient Education Patient Instructions Indication:Non-smoker Start:03-Nov-2016 Instruction Type:Provider Instructions for Treatment How to access health informa tion online Indication:Non-smoker Start:20-Oct-2016 Instruction Type:Patient Education How to access health informa tion online - Detail Indication:Non-smoker Start:20-Oct-2016 Instruction Type:Patient Education Patient Instructions Indication:Non-smoker Start:20-Oct-2016 Instruction Type:Provider Instructions for Treatment obesity counseling Indication:Benign essential HTN Start:15-Sep-2016 Instruction Type:Provider Instructions for Treatment How to access health informa tion online Indication:Non-smoker Start:15-Sep-2016 Instruction Type:Patient Education How to access health informa tion online - Detail Indication:Non-smoker Start:15-Sep-2016 Instruction Type:Patient Education Patient Instructions Indication:Non-smoker Start:15-Sep-2016 Instruction Type:Provider Instructions for Treatment How to access health informa tion online Indication:Anxiety Start:02-May-2016 Instruction Type:Patient Education How to access health informa tion online - Detail Indication:Anxiety Start:02-May-2016 Instruction Type:Patient Education Patient Instructions Indication:Anxiety Start:02-May-2016 Instruction Type:Provider Instructions for Treatment obesity counseling Indication:Benign essential HTN Start:10-Sep-2015 Instruction Type:Provider Instructions for Treatment How to access health informa tion online Indication:Anxiety Start:10-Sep-2015 Instruction Type:Patient Education How to access health informa tion online - Detail Indication:Anxiety Start:10-Sep-2015 Instruction Type:Patient Education Patient Instructions Indication:Anxiety Start:10-Sep-2015 Instruction Type:Provider Instructions for Treatment How to access health informa tion online Indication:Hyperlipidemia, mild Start:03-Sep-2015 Instruction Type:Patient Education How to access health informa tion online - Detail Indication:Hyperlipidemia, mild Start:03-Sep-2015 Instruction Type:Patient Education Patient Instructions Indication:Hyperlipidemia, mild Start:03-Sep-2015 Instruction Type:Provider Instructions for Treatment Patient Instructions Indication:Screening, lipid Start:15-May-2014 Instruction Type:Provider Instructions for Treatment [facility]; [facility] Work Phone: Instructions* Name Dates Details Patient Instructions Indication:BMI 39.0-39.9,adult Start:10-Feb-2022 Instruction Type:Provider Instructions for Treatment How to Access Health Informa tion Online using Patient Portal and [employer]rd [employer] Apps Indication:BMI 39.0-39.9,adult Start:10-Feb-2022 Instruction Type:Patient Education Patient Instructions Indication:BMI 29.0-29.9,adult Start:18-Dec-2021 Instruction Type:Provider Instructions for Treatment How to Access Health Informa tion Online using Patient Portal and [employer]rd [employer] Apps Indication:BMI 29.0-29.9,adult Start:18-Dec-2021 Instruction Type:Patient Education obesity counseling Indication:LAURA on CPAP Start:05-Oct-2020 Instruction Type:Provider Instructions for Treatment cardiovascular counseling Indication:Benign essential HTN Start:05-Oct-2020 Instruction Type:Provider Instructions for Treatment Patient Instructions Indication:Non-smoker Start:26-Mar-2020 Instruction Type:Provider Instructions for Treatment How to Access Health Informa tion Online using Patient Portal and [employer] Apps Indication:Non-smoker Start:26-Mar-2020 Instruction Type:Patient Education How to access health informa tion online Indication:BMI 35.0-35.9,adult Start:13-Dec-2019 Instruction Type:Patient Education How to access health informa tion online - Detail Indication:BMI 35.0-35.9,adult Start:13-Dec-2019 Instruction Type:Patient Education Patient Instructions Indication:BMI 35.0-35.9,adult Start:13-Dec-2019 Instruction Type:Provider Instructions for Treatment How to access health informa tion online Indication:BMI 35.0-35.9,adult Start:15-Jun-2019 Instruction Type:Patient Education How to access health informa tion online - Detail Indication:BMI 35.0-35.9,adult Start:15-Jun-2019 Instruction Type:Patient Education Patient Instructions Indication:BMI 35.0-35.9,adult Start:15-Jun-2019 Instruction Type:Provider Instructions for Treatment How to access health informa tion online Indication:Non-smoker Start:29-Dec-2018 Instruction Type:Patient Education How to access health informa tion online - Detail Indication:Non-smoker Start:29-Dec-2018 Instruction Type:Patient Education Patient Instructions Indication:Non-smoker Start:29-Dec-2018 Instruction Type:Provider Instructions for Treatment How to access health informa tion online Indication:Non-smoker Start:21-Dec-2018 Instruction Type:Patient Education How to access health informa tion online - Detail Indication:Non-smoker Start:21-Dec-2018 Instruction Type:Patient Education Patient Instructions Indication:Non-smoker Start:21-Dec-2018 Instruction Type:Provider Instructions for Treatment How to access health informa tion online Indication:Non-smoker Start:23-Nov-2018 Instruction Type:Patient Education How to access health informa tion online - Detail Indication:Non-smoker Start:23-Nov-2018 Instruction Type:Patient Education Patient Instructions Indication:Non-smoker Start:23-Nov-2018 Instruction Type:Provider Instructions for Treatment How to access health informa tion online Indication:Non-smoker Start:08-Nov-2018 Instruction Type:Patient Education How to access health informa tion online - Detail Indication:Non-smoker Start:08-Nov-2018 Instruction Type:Patient Education Patient Instructions Indication:Non-smoker Start:08-Nov-2018 Instruction Type:Provider Instructions for Treatment How to access health informa tion online Indication:Non-smoker Start:05-Jul-2018 Instruction Type:Patient Education How to access health informa tion online - Detail Indication:Non-smoker Start:05-Jul-2018 Instruction Type:Patient Education Patient Instructions Indication:Non-smoker Start:05-Jul-2018 Instruction Type:Provider Instructions for Treatment How to access health informa tion online Indication:Non-smoker Start:01-Jul-2018 Instruction Type:Patient Education How to access health informa tion online - Detail Indication:Non-smoker Start:01-Jul-2018 Instruction Type:Patient Education Patient Instructions Indication:Non-smoker Start:01-Jul-2018 Instruction Type:Provider Instructions for Treatment obesity counseling Indication:Benign essential HTN Start:02-Oct-2017 Instruction Type:Provider Instructions for Treatment How to access health informa tion online Indication:BMI 40.0-44.9, adult Start:02-Oct-2017 Instruction Type:Patient Education How to access health informa tion online - Detail Indication:BMI 40.0-44.9, adult Start:02-Oct-2017 Instruction Type:Patient Education Patient Instructions Indication:BMI 40.0-44.9, adult Start:02-Oct-2017 Instruction Type:Provider Instructions for Treatment How to access health informa tion online Indication:Non-smoker Start:04-Sep-2017 Instruction Type:Patient Education How to access health informa tion online - Detail Indication:Non-smoker Start:04-Sep-2017 Instruction Type:Patient Education Patient Instructions Indication:Non-smoker Start:04-Sep-2017 Instruction Type:Provider Instructions for Treatment How to access health informa tion online Indication:Non-smoker Start:03-Nov-2016 Instruction Type:Patient Education How to access health informa tion online - Detail Indication:Non-smoker Start:03-Nov-2016 Instruction Type:Patient Education Patient Instructions Indication:Non-smoker Start:03-Nov-2016 Instruction Type:Provider Instructions for Treatment How to access health informa tion online Indication:Non-smoker Start:20-Oct-2016 Instruction Type:Patient Education How to access health informa tion online - Detail Indication:Non-smoker Start:20-Oct-2016 Instruction Type:Patient Education Patient Instructions Indication:Non-smoker Start:20-Oct-2016 Instruction Type:Provider Instructions for Treatment obesity counseling Indication:Benign essential HTN Start:15-Sep-2016 Instruction Type:Provider Instructions for Treatment How to access health informa tion online Indication:Non-smoker Start:15-Sep-2016 Instruction Type:Patient Education How to access health informa tion online - Detail Indication:Non-smoker Start:15-Sep-2016 Instruction Type:Patient Education Patient Instructions Indication:Non-smoker Start:15-Sep-2016 Instruction Type:Provider Instructions for Treatment How to access health informa tion online Indication:Anxiety Start:02-May-2016 Instruction Type:Patient Education How to access health informa tion online - Detail Indication:Anxiety Start:02-May-2016 Instruction Type:Patient Education Patient Instructions Indication:Anxiety Start:02-May-2016 Instruction Type:Provider Instructions for Treatment obesity counseling Indication:Benign essential HTN Start:10-Sep-2015 Instruction Type:Provider Instructions for Treatment How to access health informa tion online Indication:Anxiety Start:10-Sep-2015 Instruction Type:Patient Education How to access health informa tion online - Detail Indication:Anxiety Start:10-Sep-2015 Instruction Type:Patient Education Patient Instructions Indication:Anxiety Start:10-Sep-2015 Instruction Type:Provider Instructions for Treatment How to access health informa tion online Indication:Hyperlipidemia, mild Start:03-Sep-2015 Instruction Type:Patient Education How to access health informa tion online - Detail Indication:Hyperlipidemia, mild Start:03-Sep-2015 Instruction Type:Patient Education Patient Instructions Indication:Hyperlipidemia, mild Start:03-Sep-2015 Instruction Type:Provider Instructions for Treatment Patient Instructions Indication:Screening, lipid Start:15-May-2014 Instruction Type:Provider Instructions for Treatment [facility]; [facility] Work Phone: Instructions* Name Dates Details Patient Instructions Indication:BMI 39.0-39.9,adult Start:10-Feb-2022 Instruction Type:Provider Instructions for Treatment How to Access Health Informa tion Online using Patient Portal and [employer]rd [employer] Apps Indication:BMI 39.0-39.9,adult Start:10-Feb-2022 Instruction Type:Patient Education Patient Instructions Indication:BMI 29.0-29.9,adult Start:18-Dec-2021 Instruction Type:Provider Instructions for Treatment How to Access Health Informa tion Online using Patient Portal and [employer]rd [employer] Apps Indication:BMI 29.0-29.9,adult Start:18-Dec-2021 Instruction Type:Patient Education obesity counseling Indication:LAURA on CPAP Start:05-Oct-2020 Instruction Type:Provider Instructions for Treatment cardiovascular counseling Indication:Benign essential HTN Start:05-Oct-2020 Instruction Type:Provider Instructions for Treatment Patient Instructions Indication:Non-smoker Start:26-Mar-2020 Instruction Type:Provider Instructions for Treatment How to Access Health Informa tion Online using Patient Portal and [employer]rd [employer] Apps Indication:Non-smoker Start:26-Mar-2020 Instruction Type:Patient Education How to access health informa tion online Indication:BMI 35.0-35.9,adult Start:13-Dec-2019 Instruction Type:Patient Education How to access health informa tion online - Detail Indication:BMI 35.0-35.9,adult Start:13-Dec-2019 Instruction Type:Patient Education Patient Instructions Indication:BMI 35.0-35.9,adult Start:13-Dec-2019 Instruction Type:Provider Instructions for Treatment How to access health informa tion online Indication:BMI 35.0-35.9,adult Start:15-Jun-2019 Instruction Type:Patient Education How to access health informa tion online - Detail Indication:BMI 35.0-35.9,adult Start:15-Jun-2019 Instruction Type:Patient Education Patient Instructions Indication:BMI 35.0-35.9,adult Start:15-Jun-2019 Instruction Type:Provider Instructions for Treatment How to access health informa tion online Indication:Non-smoker Start:29-Dec-2018 Instruction Type:Patient Education How to access health informa tion online - Detail Indication:Non-smoker Start:29-Dec-2018 Instruction Type:Patient Education Patient Instructions Indication:Non-smoker Start:29-Dec-2018 Instruction Type:Provider Instructions for Treatment How to access health informa tion online Indication:Non-smoker Start:21-Dec-2018 Instruction Type:Patient Education How to access health informa tion online - Detail Indication:Non-smoker Start:21-Dec-2018 Instruction Type:Patient Education Patient Instructions Indication:Non-smoker Start:21-Dec-2018 Instruction Type:Provider Instructions for Treatment How to access health informa tion online Indication:Non-smoker Start:23-Nov-2018 Instruction Type:Patient Education How to access health informa tion online - Detail Indication:Non-smoker Start:23-Nov-2018 Instruction Type:Patient Education Patient Instructions Indication:Non-smoker Start:23-Nov-2018 Instruction Type:Provider Instructions for Treatment How to access health informa tion online Indication:Non-smoker Start:08-Nov-2018 Instruction Type:Patient Education How to access health informa tion online - Detail Indication:Non-smoker Start:08-Nov-2018 Instruction Type:Patient Education Patient Instructions Indication:Non-smoker Start:08-Nov-2018 Instruction Type:Provider Instructions for Treatment How to access health informa tion online Indication:Non-smoker Start:05-Jul-2018 Instruction Type:Patient Education How to access health informa tion online - Detail Indication:Non-smoker Start:05-Jul-2018 Instruction Type:Patient Education Patient Instructions Indication:Non-smoker Start:05-Jul-2018 Instruction Type:Provider Instructions for Treatment How to access health informa tion online Indication:Non-smoker Start:01-Jul-2018 Instruction Type:Patient Education How to access health informa tion online - Detail Indication:Non-smoker Start:01-Jul-2018 Instruction Type:Patient Education Patient Instructions Indication:Non-smoker Start:01-Jul-2018 Instruction Type:Provider Instructions for Treatment obesity counseling Indication:Benign essential HTN Start:02-Oct-2017 Instruction Type:Provider Instructions for Treatment How to access health informa tion online Indication:BMI 40.0-44.9, adult Start:02-Oct-2017 Instruction Type:Patient Education How to access health informa tion online - Detail Indication:BMI 40.0-44.9, adult Start:02-Oct-2017 Instruction Type:Patient Education Patient Instructions Indication:BMI 40.0-44.9, adult Start:02-Oct-2017 Instruction Type:Provider Instructions for Treatment How to access health informa tion online Indication:Non-smoker Start:04-Sep-2017 Instruction Type:Patient Education How to access health informa tion online - Detail Indication:Non-smoker Start:04-Sep-2017 Instruction Type:Patient Education Patient Instructions Indication:Non-smoker Start:04-Sep-2017 Instruction Type:Provider Instructions for Treatment How to access health informa tion online Indication:Non-smoker Start:03-Nov-2016 Instruction Type:Patient Education How to access health informa tion online - Detail Indication:Non-smoker Start:03-Nov-2016 Instruction Type:Patient Education Patient Instructions Indication:Non-smoker Start:03-Nov-2016 Instruction Type:Provider Instructions for Treatment How to access health informa tion online Indication:Non-smoker Start:20-Oct-2016 Instruction Type:Patient Education How to access health informa tion online - Detail Indication:Non-smoker Start:20-Oct-2016 Instruction Type:Patient Education Patient Instructions Indication:Non-smoker Start:20-Oct-2016 Instruction Type:Provider Instructions for Treatment obesity counseling Indication:Benign essential HTN Start:15-Sep-2016 Instruction Type:Provider Instructions for Treatment How to access health informa tion online Indication:Non-smoker Start:15-Sep-2016 Instruction Type:Patient Education How to access health informa tion online - Detail Indication:Non-smoker Start:15-Sep-2016 Instruction Type:Patient Education Patient Instructions Indication:Non-smoker Start:15-Sep-2016 Instruction Type:Provider Instructions for Treatment How to access health informa tion online Indication:Anxiety Start:02-May-2016 Instruction Type:Patient Education How to access health informa tion online - Detail Indication:Anxiety Start:02-May-2016 Instruction Type:Patient Education Patient Instructions Indication:Anxiety Start:02-May-2016 Instruction Type:Provider Instructions for Treatment obesity counseling Indication:Benign essential HTN Start:10-Sep-2015 Instruction Type:Provider Instructions for Treatment How to access health informa tion online Indication:Anxiety Start:10-Sep-2015 Instruction Type:Patient Education How to access health informa tion online - Detail Indication:Anxiety Start:10-Sep-2015 Instruction Type:Patient Education Patient Instructions Indication:Anxiety Start:10-Sep-2015 Instruction Type:Provider Instructions for Treatment How to access health informa tion online Indication:Hyperlipidemia, mild Start:03-Sep-2015 Instruction Type:Patient Education How to access health informa tion online - Detail Indication:Hyperlipidemia, mild Start:03-Sep-2015 Instruction Type:Patient Education Patient Instructions Indication:Hyperlipidemia, mild Start:03-Sep-2015 Instruction Type:Provider Instructions for Treatment Patient Instructions Indication:Screening, lipid Start:15-May-2014 Instruction Type:Provider Instructions for Treatment [facility]; [facility] Work Phone: Instructions* Name Dates Details Patient Instructions Indication:BMI 39.0-39.9,adult Start:10-Feb-2022 Instruction Type:Provider Instructions for Treatment How to Access Health Informa tion Online using Patient Portal and [employer] Indication:BMI 39.0-39.9,adult Start:10-Feb-2022 Instruction Type:Patient Education Patient Instructions Indication:BMI 29.0-29.9,adult Start:18-Dec-2021 Instruction Type:Provider Instructions for Treatment How to Access Health Informa tion Online using Patient Portal and [employer]rd [employer] Apps Indication:BMI 29.0-29.9,adult Start:18-Dec-2021 Instruction Type:Patient Education obesity counseling Indication:LAURA on CPAP Start:05-Oct-2020 Instruction Type:Provider Instructions for Treatment cardiovascular counseling Indication:Benign essential HTN Start:05-Oct-2020 Instruction Type:Provider Instructions for Treatment Patient Instructions Indication:Non-smoker Start:26-Mar-2020 Instruction Type:Provider Instructions for Treatment How to Access Health Informa tion Online using Patient Portal and [employer] Apps Indication:Non-smoker Start:26-Mar-2020 Instruction Type:Patient Education How to access health informa tion online Indication:BMI 35.0-35.9,adult Start:13-Dec-2019 Instruction Type:Patient Education How to access health informa tion online - Detail Indication:BMI 35.0-35.9,adult Start:13-Dec-2019 Instruction Type:Patient Education Patient Instructions Indication:BMI 35.0-35.9,adult Start:13-Dec-2019 Instruction Type:Provider Instructions for Treatment How to access health informa tion online Indication:BMI 35.0-35.9,adult Start:15-Jun-2019 Instruction Type:Patient Education How to access health informa tion online - Detail Indication:BMI 35.0-35.9,adult Start:15-Jun-2019 Instruction Type:Patient Education Patient Instructions Indication:BMI 35.0-35.9,adult Start:15-Jun-2019 Instruction Type:Provider Instructions for Treatment How to access health informa tion online Indication:Non-smoker Start:29-Dec-2018 Instruction Type:Patient Education How to access health informa tion online - Detail Indication:Non-smoker Start:29-Dec-2018 Instruction Type:Patient Education Patient Instructions Indication:Non-smoker Start:29-Dec-2018 Instruction Type:Provider Instructions for Treatment How to access health informa tion online Indication:Non-smoker Start:21-Dec-2018 Instruction Type:Patient Education How to access health informa tion online - Detail Indication:Non-smoker Start:21-Dec-2018 Instruction Type:Patient Education Patient Instructions Indication:Non-smoker Start:21-Dec-2018 Instruction Type:Provider Instructions for Treatment How to access health informa tion online Indication:Non-smoker Start:23-Nov-2018 Instruction Type:Patient Education How to access health informa tion online - Detail Indication:Non-smoker Start:23-Nov-2018 Instruction Type:Patient Education Patient Instructions Indication:Non-smoker Start:23-Nov-2018 Instruction Type:Provider Instructions for Treatment How to access health informa tion online Indication:Non-smoker Start:08-Nov-2018 Instruction Type:Patient Education How to access health informa tion online - Detail Indication:Non-smoker Start:08-Nov-2018 Instruction Type:Patient Education Patient Instructions Indication:Non-smoker Start:08-Nov-2018 Instruction Type:Provider Instructions for Treatment How to access health informa tion online Indication:Non-smoker Start:05-Jul-2018 Instruction Type:Patient Education How to access health informa tion online - Detail Indication:Non-smoker Start:05-Jul-2018 Instruction Type:Patient Education Patient Instructions Indication:Non-smoker Start:05-Jul-2018 Instruction Type:Provider Instructions for Treatment How to access health informa tion online Indication:Non-smoker Start:01-Jul-2018 Instruction Type:Patient Education How to access health informa tion online - Detail Indication:Non-smoker Start:01-Jul-2018 Instruction Type:Patient Education Patient Instructions Indication:Non-smoker Start:01-Jul-2018 Instruction Type:Provider Instructions for Treatment obesity counseling Indication:Benign essential HTN Start:02-Oct-2017 Instruction Type:Provider Instructions for Treatment How to access health informa tion online Indication:BMI 40.0-44.9, adult Start:02-Oct-2017 Instruction Type:Patient Education How to access health informa tion online - Detail Indication:BMI 40.0-44.9, adult Start:02-Oct-2017 Instruction Type:Patient Education Patient Instructions Indication:BMI 40.0-44.9, adult Start:02-Oct-2017 Instruction Type:Provider Instructions for Treatment How to access health informa tion online Indication:Non-smoker Start:04-Sep-2017 Instruction Type:Patient Education How to access health informa tion online - Detail Indication:Non-smoker Start:04-Sep-2017 Instruction Type:Patient Education Patient Instructions Indication:Non-smoker Start:04-Sep-2017 Instruction Type:Provider Instructions for Treatment How to access health informa tion online Indication:Non-smoker Start:03-Nov-2016 Instruction Type:Patient Education How to access health informa tion online - Detail Indication:Non-smoker Start:03-Nov-2016 Instruction Type:Patient Education Patient Instructions Indication:Non-smoker Start:03-Nov-2016 Instruction Type:Provider Instructions for Treatment How to access health informa tion online Indication:Non-smoker Start:20-Oct-2016 Instruction Type:Patient Education How to access health informa tion online - Detail Indication:Non-smoker Start:20-Oct-2016 Instruction Type:Patient Education Patient Instructions Indication:Non-smoker Start:20-Oct-2016 Instruction Type:Provider Instructions for Treatment obesity counseling Indication:Benign essential HTN Start:15-Sep-2016 Instruction Type:Provider Instructions for Treatment How to access health informa tion online Indication:Non-smoker Start:15-Sep-2016 Instruction Type:Patient Education How to access health informa tion online - Detail Indication:Non-smoker Start:15-Sep-2016 Instruction Type:Patient Education Patient Instructions Indication:Non-smoker Start:15-Sep-2016 Instruction Type:Provider Instructions for Treatment How to access health informa tion online Indication:Anxiety Start:02-May-2016 Instruction Type:Patient Education How to access health informa tion online - Detail Indication:Anxiety Start:02-May-2016 Instruction Type:Patient Education Patient Instructions Indication:Anxiety Start:02-May-2016 Instruction Type:Provider Instructions for Treatment obesity counseling Indication:Benign essential HTN Start:10-Sep-2015 Instruction Type:Provider Instructions for Treatment How to access health informa tion online Indication:Anxiety Start:10-Sep-2015 Instruction Type:Patient Education How to access health informa tion online - Detail Indication:Anxiety Start:10-Sep-2015 Instruction Type:Patient Education Patient Instructions Indication:Anxiety Start:10-Sep-2015 Instruction Type:Provider Instructions for Treatment How to access health informa tion online Indication:Hyperlipidemia, mild Start:03-Sep-2015 Instruction Type:Patient Education How to access health informa tion online - Detail Indication:Hyperlipidemia, mild Start:03-Sep-2015 Instruction Type:Patient Education Patient Instructions Indication:Hyperlipidemia, mild Start:03-Sep-2015 Instruction Type:Provider Instructions for Treatment Patient Instructions Indication:Screening, lipid Start:15-May-2014 Instruction Type:Provider Instructions for Treatment [facility]; [facility] Work Phone: Instructions* Name Dates Details How to Access Health Informa tion Online using Patient Portal and 3rd [employer] Apps Indication:Non-smoker Start:25-Sep-2022 Instruction Type:Patient Education Patient Instructions Indication:Non-smoker Start:25-Sep-2022 Instruction Type:Provider Instructions for Treatment Patient Instructions Indication:BMI 39.0-39.9,adult Start:10-Feb-2022 Instruction Type:Provider Instructions for Treatment How to Access Health Informa tion Online using Patient Portal and [employer]rd [employer] Apps Indication:BMI 39.0-39.9,adult Start:10-Feb-2022 Instruction Type:Patient Education Patient Instructions Indication:BMI 29.0-29.9,adult Start:18-Dec-2021 Instruction Type:Provider Instructions for Treatment How to Access Health Informa tion Online using Patient Portal and [employer]rd [employer] Apps Indication:BMI 29.0-29.9,adult Start:18-Dec-2021 Instruction Type:Patient Education obesity counseling Indication:LAURA on CPAP Start:05-Oct-2020 Instruction Type:Provider Instructions for Treatment cardiovascular counseling Indication:Benign essential HTN Start:05-Oct-2020 Instruction Type:Provider Instructions for Treatment Patient Instructions Indication:Non-smoker Start:26-Mar-2020 Instruction Type:Provider Instructions for Treatment How to Access Health Informa tion Online using Patient Portal and [employer]rd [employer] Apps Indication:Non-smoker Start:26-Mar-2020 Instruction Type:Patient Education How to access health informa tion online Indication:BMI 35.0-35.9,adult Start:13-Dec-2019 Instruction Type:Patient Education How to access health informa tion online - Detail Indication:BMI 35.0-35.9,adult Start:13-Dec-2019 Instruction Type:Patient Education Patient Instructions Indication:BMI 35.0-35.9,adult Start:13-Dec-2019 Instruction Type:Provider Instructions for Treatment How to access health informa tion online Indication:BMI 35.0-35.9,adult Start:15-Jun-2019 Instruction Type:Patient Education How to access health informa tion online - Detail Indication:BMI 35.0-35.9,adult Start:15-Jun-2019 Instruction Type:Patient Education Patient Instructions Indication:BMI 35.0-35.9,adult Start:15-Jun-2019 Instruction Type:Provider Instructions for Treatment How to access health informa tion online Indication:Non-smoker Start:29-Dec-2018 Instruction Type:Patient Education How to access health informa tion online - Detail Indication:Non-smoker Start:29-Dec-2018 Instruction Type:Patient Education Patient Instructions Indication:Non-smoker Start:29-Dec-2018 Instruction Type:Provider Instructions for Treatment How to access health informa tion online Indication:Non-smoker Start:21-Dec-2018 Instruction Type:Patient Education How to access health informa tion online - Detail Indication:Non-smoker Start:21-Dec-2018 Instruction Type:Patient Education Patient Instructions Indication:Non-smoker Start:21-Dec-2018 Instruction Type:Provider Instructions for Treatment How to access health informa tion online Indication:Non-smoker Start:23-Nov-2018 Instruction Type:Patient Education How to access health informa tion online - Detail Indication:Non-smoker Start:23-Nov-2018 Instruction Type:Patient Education Patient Instructions Indication:Non-smoker Start:23-Nov-2018 Instruction Type:Provider Instructions for Treatment How to access health informa tion online Indication:Non-smoker Start:08-Nov-2018 Instruction Type:Patient Education How to access health informa tion online - Detail Indication:Non-smoker Start:08-Nov-2018 Instruction Type:Patient Education Patient Instructions Indication:Non-smoker Start:08-Nov-2018 Instruction Type:Provider Instructions for Treatment How to access health informa tion online Indication:Non-smoker Start:05-Jul-2018 Instruction Type:Patient Education How to access health informa tion online - Detail Indication:Non-smoker Start:05-Jul-2018 Instruction Type:Patient Education Patient Instructions Indication:Non-smoker Start:05-Jul-2018 Instruction Type:Provider Instructions for Treatment How to access health informa tion online Indication:Non-smoker Start:01-Jul-2018 Instruction Type:Patient Education How to access health informa tion online - Detail Indication:Non-smoker Start:01-Jul-2018 Instruction Type:Patient Education Patient Instructions Indication:Non-smoker Start:01-Jul-2018 Instruction Type:Provider Instructions for Treatment obesity counseling Indication:Benign essential HTN Start:02-Oct-2017 Instruction Type:Provider Instructions for Treatment How to access health informa tion online Indication:BMI 40.0-44.9, adult Start:02-Oct-2017 Instruction Type:Patient Education How to access health informa tion online - Detail Indication:BMI 40.0-44.9, adult Start:02-Oct-2017 Instruction Type:Patient Education Patient Instructions Indication:BMI 40.0-44.9, adult Start:02-Oct-2017 Instruction Type:Provider Instructions for Treatment How to access health informa tion online Indication:Non-smoker Start:04-Sep-2017 Instruction Type:Patient Education How to access health informa tion online - Detail Indication:Non-smoker Start:04-Sep-2017 Instruction Type:Patient Education Patient Instructions Indication:Non-smoker Start:04-Sep-2017 Instruction Type:Provider Instructions for Treatment How to access health informa tion online Indication:Non-smoker Start:03-Nov-2016 Instruction Type:Patient Education How to access health informa tion online - Detail Indication:Non-smoker Start:03-Nov-2016 Instruction Type:Patient Education Patient Instructions Indication:Non-smoker Start:03-Nov-2016 Instruction Type:Provider Instructions for Treatment How to access health informa tion online Indication:Non-smoker Start:20-Oct-2016 Instruction Type:Patient Education How to access health informa tion online - Detail Indication:Non-smoker Start:20-Oct-2016 Instruction Type:Patient Education Patient Instructions Indication:Non-smoker Start:20-Oct-2016 Instruction Type:Provider Instructions for Treatment obesity counseling Indication:Benign essential HTN Start:15-Sep-2016 Instruction Type:Provider Instructions for Treatment How to access health informa tion online Indication:Non-smoker Start:15-Sep-2016 Instruction Type:Patient Education How to access health informa tion online - Detail Indication:Non-smoker Start:15-Sep-2016 Instruction Type:Patient Education Patient Instructions Indication:Non-smoker Start:15-Sep-2016 Instruction Type:Provider Instructions for Treatment How to access health informa tion online Indication:Anxiety Start:02-May-2016 Instruction Type:Patient Education How to access health informa tion online - Detail Indication:Anxiety Start:02-May-2016 Instruction Type:Patient Education Patient Instructions Indication:Anxiety Start:02-May-2016 Instruction Type:Provider Instructions for Treatment obesity counseling Indication:Benign essential HTN Start:10-Sep-2015 Instruction Type:Provider Instructions for Treatment How to access health informa tion online Indication:Anxiety Start:10-Sep-2015 Instruction Type:Patient Education How to access health informa tion online - Detail Indication:Anxiety Start:10-Sep-2015 Instruction Type:Patient Education Patient Instructions Indication:Anxiety Start:10-Sep-2015 Instruction Type:Provider Instructions for Treatment How to access health informa tion online Indication:Hyperlipidemia, mild Start:03-Sep-2015 Instruction Type:Patient Education How to access health informa tion online - Detail Indication:Hyperlipidemia, mild Start:03-Sep-2015 Instruction Type:Patient Education Patient Instructions Indication:Hyperlipidemia, mild Start:03-Sep-2015 Instruction Type:Provider Instructions for Treatment Patient Instructions Indication:Screening, lipid Start:15-May-2014 Instruction Type:Provider Instructions for Treatment [facility]; [facility] Work Phone: reason for referral (narrative)* Diagnostic Procedure Only (Routine) - Closed Specialty Diagnoses / Procedures Referred By Contac t Referred To Contact MOLECULAR [facility] FUNCTIONAL IMAGING Diagnoses Malignant neoplasm of upper-outer quadrant of right breast in female, estrogen receptor positive (HCC) Bone metastases (HCC) Malignant neoplasm of breast in female, estrogen receptor positive, unspecified laterality, unspecified site of breast (HCC) Procedures NM BONE WHOLE BODY BONE &/JOINT IMAGING WHOLE BODY Sandra Hogue APRN.CNP [address] [place] [address] [facility] [address] [place] [address] Referral ID Status Reason Start Date Expiration Date V isits Requested Visits Authorized [id number] Closed Auto-Generate d Referral 12/04/2021 01/03/2023 1 1 [facility] for referral (narrative)* Diagnostic Procedure Only (Routine) - Authorized Specialty Diagnoses / Procedures Referred By Contac t Referred To Contact BR IMAGING Diagnoses Malignant neoplasm of upper-outer quadrant of right breast in female, estrogen receptor positive (HCC) Bone metastases (HCC) Breast screening Encounter for screening mammogram for malignant neoplasm of breast Procedures MARLEY SCREENING SCREENING MAMMOGRAPHY BI 2-VIEW BREAST INC CAD Stephania Hayes MD [address] [facility] [place] [address] [facility] [address] [place] [address] Referral ID Status Reason Start Date Expiration Date Visits Requested Visits Authorized [id number] Authorized Auto-Generat ed Referral 02/26/2022 03/28/2023 1 1 [facility] for referral (narrative)* Diagnostic Procedure Only (Routine) - Closed Specialty Diagnoses / Procedures Referred By Contac t Referred To Contact MOLECULAR & FUNCTIONAL IMAGING Diagnoses Malignant neoplasm of upper-inner quadrant of breast in female, estrogen receptor positive, unspecified laterality (HCC) (HCC) Procedures NM BONE WHOLE BODY BONE &/JOINT [place] [address] [place] [address] [facility] [address] [place] [address] Referral ID Status Reason Start Date Expiration Date V isits Requested Visits Authorized [id number] Closed Auto-Generate d Referral 04/22/2023 05/21/2024 1 1 [facility] for referral (narrative)No reason for referral [facility] Narrative* Diagnostic Procedure Only (Routine) - Closed Specialty Diagnoses / Procedures Referred By Contac t Referred To Contact MOLECULAR & FUNCTIONAL IMAGING Diagnoses Malignant neoplasm of upper-outer quadrant of right breast in female, estrogen receptor positive (HCC) Bone metastases (HCC) Malignant neoplasm of breast in female, estrogen receptor positive, unspecified laterality, unspecified site of breast (HCC) Procedures NM BONE WHOLE BODY BONE &/JOINT IMAGING WHOLE BODY Sandra Hogue APRN.SPEECH TEACHER [address] [place] [address] [facility] [address] [place] [address] Referral ID Status Reason Start Date Expiration Date V isits Requested Visits Authorized [id number] Closed Auto-Generate d Referral 12/04/2021 01/03/2023 1 1 [facility] for visit Narrative* Diagnostic Procedure Only (Routine) - Closed Specialty Diagnoses / Procedures Referred By Contac t Referred To Contact MOLECULAR [facility] FUNCTIONAL IMAGING Diagnoses Malignant neoplasm of upper-inner quadrant of breast in female, estrogen receptor positive, unspecified laterality (HCC) (HCC) Procedures NM BONE WHOLE BODY BONE &/JOINT [place]ING [place] [address] [place] [address] [facility] [address] [place] [address] Referral ID Status Reason Start Date Expiration Date V isits Requested Visits Authorized [id number] Closed Auto-Generate d Referral 04/22/2023 05/21/2024 1 1 [facility] Family History Unknown Family Member Name Dates Details Alcohol Abuse Comments:Maternal Grandfathe r. Status:Active Blood Disorder Comments:Maternal Grandfathe r. Status:Active COPD Comments:Maternal Grandmothe r. Status:Active Heart Disease Comments:Paternal Grandfathe r. Status:Active Hypertension Comments:Paternal Grandfathe r. Status:Active Pelvic dx Comments:Paternal Grandmothe r. Status:Active Prostate Cancer Comments:Brother. Status:Active Unknown Family Member Name Dates Details Alcohol Abuse Comments:Maternal Grandfathe r. Status:Active Blood Disorder Comments:Maternal Grandfathe r. Status:Active COPD Comments:Maternal Grandmothe r. Status:Active Heart Disease Comments:Paternal Grandfathe r. Status:Active Hypertension Comments:Paternal Grandfathe r. Status:Active Pelvic dx Comments:Paternal Grandmothe r. Status:Active Prostate Cancer Comments:Brother. Status:Active Unknown Family Member Name Dates Details Alcohol Abuse Comments:Maternal Grandfathe r. Status:Active Blood Disorder Comments:Maternal Grandfathe r. Status:Active COPD Comments:Maternal Grandmothe r. Status:Active Heart Disease Comments:Paternal Grandfathe r. Status:Active Hypertension Comments:Paternal Grandfathe r. Status:Active Pelvic dx Comments:Paternal Grandmothe r. Status:Active Prostate Cancer Comments:Brother. Status:Active Unknown Family Member Name Dates Details Alcohol Abuse Comments:Maternal Grandfathe r. Status:Active Blood Disorder Comments:Maternal Grandfathe r. Status:Active COPD Comments:Maternal Grandmothe r. Status:Active Heart Disease Comments:Paternal Grandfathe r. Status:Active Hypertension Comments:Paternal Grandfathe r. Status:Active Pelvic dx Comments:Paternal Grandmothe r. Status:Active Prostate Cancer Comments:Brother. Status:Active Unknown Family Member Name Dates Details Alcohol Abuse Comments:Maternal Grandfathe r. Status:Active Blood Disorder Comments:Maternal Grandfathe r. Status:Active COPD Comments:Maternal Grandmothe r. Status:Active Heart Disease Comments:Paternal Grandfathe r. Status:Active Hypertension Comments:Paternal Grandfathe r. Status:Active Pelvic dx Comments:Paternal Grandmothe r. Status:Active Prostate Cancer Comments:Brother. Status:Active Unknown Family Member Name Dates Details Alcohol Abuse Comments:Maternal Grandfathe r. Status:Active Blood Disorder Comments:Maternal Grandfathe r. Status:Active COPD Comments:Maternal Grandmothe r. Status:Active Heart Disease Comments:Paternal Grandfathe r. Status:Active Hypertension Comments:Paternal Grandfathe r. Status:Active Pelvic dx Comments:Paternal Grandmothe r. Status:Active Prostate Cancer Comments:Brother. Status:Active Unknown Family Member Name Dates Details Alcohol Abuse Comments:Maternal Grandfathe r. Status:Active Blood Disorder Comments:Maternal Grandfathe r. Status:Active COPD Comments:Maternal Grandmothe r. Status:Active Heart Disease Comments:Paternal Grandfathe r. Status:Active Hypertension Comments:Paternal Grandfathe r. Status:Active Pelvic dx Comments:Paternal Grandmothe r. Status:Active Prostate Cancer Comments:Brother. Status:Active Unknown Family Member Name Dates Details Alcohol Abuse Comments:Maternal Grandfathe r. Status:Active Blood Disorder Comments:Maternal Grandfathe r. Status:Active COPD Comments:Maternal Grandmothe r. Status:Active Heart Disease Comments:Paternal Grandfathe r. Status:Active Hypertension Comments:Paternal Grandfathe r. Status:Active Pelvic dx Comments:Paternal Grandmothe r. Status:Active Prostate Cancer Comments:Brother. Status:Active Unknown Family Member Name Dates Details Alcohol Abuse Comments:Maternal Grandfathe r. Status:Active Blood Disorder Comments:Maternal Grandfathe r. Status:Active COPD Comments:Maternal Grandmothe r. Status:Active Heart Disease Comments:Paternal Grandfathe r. Status:Active Hypertension Comments:Paternal Grandfathe r. Status:Active Pelvic dx Comments:Paternal Grandmothe r. Status:Active Prostate Cancer Comments:Brother. Status:Active Unknown Family Member Name Dates Details Alcohol Abuse Comments:Maternal Grandfathe r. Status:Active Blood Disorder Comments:Maternal Grandfathe r. Status:Active COPD Comments:Maternal Grandmothe r. Status:Active Heart Disease Comments:Paternal Grandfathe r. Status:Active Hypertension Comments:Paternal Grandfathe r. Status:Active Pelvic dx Comments:Paternal Grandmothe r. Status:Active Prostate Cancer Comments:Brother. Status:Active Unknown Family Member Name Dates Details Alcohol Abuse Comments:Maternal Grandfathe r. Status:Active Blood Disorder Comments:Maternal Grandfathe r. Status:Active COPD Comments:Maternal Grandmothe r. Status:Active Heart Disease Comments:Paternal Grandfathe r. Status:Active Hypertension Comments:Paternal Grandfathe r. Status:Active Pelvic dx Comments:Paternal Grandmothe r. Status:Active Prostate Cancer Comments:Brother. Status:Active Unknown Family Member Name Dates Details Alcohol Abuse Comments:Maternal Grandfathe r. Status:Active Blood Disorder Comments:Maternal Grandfathe r. Status:Active COPD Comments:Maternal Grandmothe r. Status:Active Heart Disease Comments:Paternal Grandfathe r. Status:Active Hypertension Comments:Paternal Grandfathe r. Status:Active Pelvic dx Comments:Paternal Grandmothe r. Status:Active Prostate Cancer Comments:Brother. Status:Active Unknown Family Member Name Dates Details Alcohol Abuse Comments:Maternal Grandfathe r. Status:Active Blood Disorder Comments:Maternal Grandfathe r. Status:Active COPD Comments:Maternal Grandmothe r. Status:Active Heart Disease Comments:Paternal Grandfathe r. Status:Active Hypertension Comments:Paternal Grandfathe r. Status:Active Pelvic dx Comments:Paternal Grandmothe r. Status:Active Prostate Cancer Comments:Brother. Status:Active Unknown Family Member Name Dates Details Alcohol Abuse Comments:Maternal Grandfathe r. Status:Active Blood Disorder Comments:Maternal Grandfathe r. Status:Active COPD Comments:Maternal Grandmothe r. Status:Active Heart Disease Comments:Paternal Grandfathe r. Status:Active Hypertension Comments:Paternal Grandfathe r. Status:Active Pelvic dx Comments:Paternal Grandmothe r. Status:Active Prostate Cancer Comments:Brother. Status:Active Unknown Family Member Name Dates Details Alcohol Abuse Comments:Maternal Grandfathe r. Status:Active Blood Disorder Comments:Maternal Grandfathe r. Status:Active COPD Comments:Maternal Grandmothe r. Status:Active Heart Disease Comments:Paternal Grandfathe r. Status:Active Hypertension Comments:Paternal Grandfathe r. Status:Active Pelvic dx Comments:Paternal Grandmothe r. Status:Active Prostate Cancer Comments:Brother. Status:Active Unknown Family Member Name Dates Details Alcohol Abuse Comments:Maternal Grandfathe r. Status:Active Blood Disorder Comments:Maternal Grandfathe r. Status:Active COPD Comments:Maternal Grandmothe r. Status:Active Heart Disease Comments:Paternal Grandfathe r. Status:Active Hypertension Comments:Paternal Grandfathe r. Status:Active Pelvic dx Comments:Paternal Grandmothe r. Status:Active Prostate Cancer Comments:Brother. Status:Active Unknown Family Member Name Dates Details Alcohol Abuse Comments:Maternal Grandfathe r. Status:Active Blood Disorder Comments:Maternal Grandfathe r. Status:Active COPD Comments:Maternal Grandmothe r. Status:Active Heart Disease Comments:Paternal Grandfathe r. Status:Active Hypertension Comments:Paternal Grandfathe r. Status:Active Pelvic dx Comments:Paternal [place] r. Status:Active Prostate Cancer Comments:Brother. Status:Active Unknown Family Member Name Dates Details Alcohol Abuse Comments:Maternal Grandfathe r. Status:Active Blood Disorder Comments:Maternal Grandfathe r. Status:Active COPD Comments:Maternal Grandmothe r. Status:Active Heart Disease Comments:Paternal Grandfathe r. Status:Active Hypertension Comments:Paternal Grandfathe r. Status:Active Pelvic dx Comments:Paternal Grandmothe r. Status:Active Prostate Cancer Comments:Brother. Status:Active Unknown Family Member Name Dates Details Alcohol Abuse Comments:Maternal Grandfathe r. Status:Active Blood Disorder Comments:Maternal Grandfathe r. Status:Active COPD Comments:Maternal Grandmothe r. Status:Active Heart Disease Comments:Paternal Grandfathe r. Status:Active Hypertension Comments:Paternal Grandfathe r. Status:Active Pelvic dx Comments:Paternal Grandmothe r. Status:Active Prostate Cancer Comments:Brother. Status:Active Unknown Family Member Name Dates Details Alcohol Abuse Comments:Maternal Grandfathe r. Status:Active Blood Disorder Comments:Maternal Grandfathe r. Status:Active COPD Comments:Maternal Grand[place] r. Status:Active Heart Disease Comments:Paternal Grandfathe r. Status:Active Hypertension Comments:Paternal Grandfathe r. Status:Active Pelvic dx Comments:Paternal Grandmothe r. Status:Active Prostate Cancer Comments:Brother. Status:Active Unknown Family Member Name Dates Details Alcohol Abuse Comments:Maternal Grandfathe r. Status:Active Blood Disorder Comments:Maternal Grandfathe r. Status:Active COPD Comments:Maternal Grandm[place] r. Status:Active Heart Disease Comments:Paternal Grandfathe r. Status:Active Hypertension Comments:Paternal Grandfathe r. Status:Active Pelvic dx Comments:Paternal Grandmothe r. Status:Active Prostate Cancer Comments:Brother. Status:Active Relationship Condition Age at Onset Recorded Date/T chhaya mother Coronary artery disease Unknown Unknown Family Member Name Dates Details Alcohol Abuse Comments:Maternal Grandfathe r. Status:Active Blood Disorder Comments:Maternal Grandfathe r. Status:Active COPD Comments:Maternal Grandmothe r. Status:Active Heart Disease Comments:Paternal Grandfathe r. Status:Active Hypertension Comments:Paternal Grandfathe r. Status:Active Pelvic dx Comments:Paternal Grandmothe r. Status:Active Prostate Cancer Comments:Brother. Status:Active Unknown Family Member Name Dates Details Alcohol Abuse Comments:Maternal Grandfathe r. Status:Active Blood Disorder Comments:Maternal Grandfathe r. Status:Active COPD Comments:Maternal Grandmothe r. Status:Active Heart Disease Comments:Paternal Grandfathe r. Status:Active Hypertension Comments:Paternal Grandfathe r. Status:Active Pelvic dx Comments:Paternal Grandmothe r. Status:Active Prostate Cancer Comments:Brother. Status:Active Unknown Family Member Name Dates Details Alcohol Abuse Comments:Maternal Grandfathe r. Status:Active Blood Disorder Comments:Maternal Grandfathe r. Status:Active COPD Comments:Maternal Grandmothe r. Status:Active Heart Disease Comments:Paternal Grandfathe r. Status:Active Hypertension Comments:Paternal Grandfathe r. Status:Active Pelvic dx Comments:Paternal Grandmothe r. Status:Active Prostate Cancer Comments:Brother. Status:Active Unknown Family Member Name Dates Details Alcohol Abuse Comments:Maternal Grandfathe r. Status:Active Blood Disorder Comments:Maternal Grandfathe r. Status:Active COPD Comments:Maternal Grandm[place] r. Status:Active Heart Disease Comments:Paternal Grandfathe r. Status:Active Hypertension Comments:Paternal Grandfathe r. Status:Active Pelvic dx Comments:Paternal Grandmothe r. Status:Active Prostate Cancer Comments:Brother. Status:Active Unknown Family Member Name Dates Details Alcohol Abuse Comments:Maternal Grandfathe r. Status:Active Blood Disorder Comments:Maternal Grandfathe r. Status:Active COPD Comments:Maternal Grandmothe r. Status:Active Heart Disease Comments:Paternal Grandfathe r. Status:Active Hypertension Comments:Paternal Grandfathe r. Status:Active Pelvic dx Comments:Paternal Grandmothe r. Status:Active Prostate Cancer Comments:Brother. Status:Active Unknown Family Member Name Dates Details Alcohol Abuse Comments:Maternal Grandfathe r. Status:Active Blood Disorder Comments:Maternal Grandfathe r. Status:Active COPD Comments:Maternal Grandmothe r. Status:Active Heart Disease Comments:Paternal Grandfathe r. Status:Active Hypertension Comments:Paternal Grandfathe r. Status:Active Pelvic dx Comments:Paternal Grandmothe r. Status:Active Prostate Cancer Comments:Brother. Status:Active Unknown Family Member Name Dates Details Family history of diabetes m ellitus: Brother(V18.0, Z83.3) Status:Active Family history of myocardial infarction: Brother(V17.3, Z82.49) Status:Active Family history of malignant neoplasm of prostate: Brother(V16.42, Z80.42) Status:Active Unknown Family Member Name Dates Details Family history of diabetes m ellitus: Brother(V18.0, Z83.3) Status:Active Family history of myocardial infarction: Brother(V17.3, Z82.49) Status:Active Family history of malignant neoplasm of prostate: Brother(V16.42, Z80.42) Status:Active Unknown Family Member Name Dates Details Family history of diabetes m ellitus: Brother(V18.0, Z83.3) Status:Active Family history of myocardial infarction: Brother(V17.3, Z82.49) Status:Active Family history of malignant neoplasm of prostate: Brother(V16.42, Z80.42) Status:Active Unknown Family Member Name Dates Details Family history of diabetes m ellitus: Brother(V18.0, Z83.3) Status:Active Family history of myocardial infarction: Brother(V17.3, Z82.49) Status:Active Family history of malignant neoplasm of prostate: Brother(V16.42, Z80.42) Status:Active Instructions Name Dates Details Non-smoker : How to access h ealth information online Indication:Non-smoker Non-smoker : How to access h ealth information online - Detail Indication:Non-smoker Non-smoker : Patient Instruc tions Indication:Non-smoker Benign essential HTN : obesi ty counseling Indication:Benign essential HTN BMI 40.0-44.9, adult : How t o access health information online Indication:BMI 40.0-44.9, adult BMI 40.0-44.9, adult : How t o access health information online - Detail Indication:BMI 40.0-44.9, adult BMI 40.0-44.9, adult : Patie nt Instructions Indication:BMI 40.0-44.9, adult Anxiety : How to access heal th information online Indication:Anxiety Anxiety : How to access heal th information online - Detail Indication:Anxiety Anxiety : Patient Instructio ns Indication:Anxiety Hyperlipidemia, mild : How t o access health information online Indication:Hyperlipidemia, mild Hyperlipidemia, mild : How t o access health information online - Detail Indication:Hyperlipidemia, mild Hyperlipidemia, mild : Patie nt Instructions Indication:Hyperlipidemia, mild Screening, lipid : Patient I nstructions Indication:Screening, lipid Name Dates Details Non-smoker : How to access h ealth information online Indication:Non-smoker Non-smoker : How to access h ealth information online - Detail Indication:Non-smoker Non-smoker : Patient Instruc tions Indication:Non-smoker Benign essential HTN : obesi ty counseling Indication:Benign essential HTN BMI 40.0-44.9, adult : How t o access health information online Indication:BMI 40.0-44.9, adult BMI 40.0-44.9, adult : How t o access health information online - Detail Indication:BMI 40.0-44.9, adult BMI 40.0-44.9, adult : Patie nt Instructions Indication:BMI 40.0-44.9, adult Anxiety : How to access heal th information online Indication:Anxiety Anxiety : How to access heal th information online - Detail Indication:Anxiety Anxiety : Patient Instructio ns Indication:Anxiety Hyperlipidemia, mild : How t o access health information online Indication:Hyperlipidemia, mild Hyperlipidemia, mild : How t o access health information online - Detail Indication:Hyperlipidemia, mild Hyperlipidemia, mild : Patie nt Instructions Indication:Hyperlipidemia, mild Screening, lipid : Patient I nstructions Indication:Screening, lipid Name Dates Details How to access health informa tion online Indication:Non-smoker Start:05-Jul-2018 Instruction Type:Patient Education How to access health informa tion online - Detail Indication:Non-smoker Start:05-Jul-2018 Instruction Type:Patient Education Patient Instructions Indication:Non-smoker Start:05-Jul-2018 Instruction Type:Provider Instructions for Treatment How to access health informa tion online Indication:Non-smoker Start:01-Jul-2018 Instruction Type:Patient Education How to access health informa tion online - Detail Indication:Non-smoker Start:01-Jul-2018 Instruction Type:Patient Education Patient Instructions Indication:Non-smoker Start:01-Jul-2018 Instruction Type:Provider Instructions for Treatment obesity counseling Indication:Benign essential HTN Start:02-Oct-2017 Instruction Type:Provider Instructions for Treatment How to access health informa tion online Indication:BMI 40.0-44.9, adult Start:02-Oct-2017 Instruction Type:Patient Education How to access health informa tion online - Detail Indication:BMI 40.0-44.9, adult Start:02-Oct-2017 Instruction Type:Patient Education Patient Instructions Indication:BMI 40.0-44.9, adult Start:02-Oct-2017 Instruction Type:Provider Instructions for Treatment How to access health informa tion online Indication:Non-smoker Start:04-Sep-2017 Instruction Type:Patient Education How to access health informa tion online - Detail Indication:Non-smoker Start:04-Sep-2017 Instruction Type:Patient Education Patient Instructions Indication:Non-smoker Start:04-Sep-2017 Instruction Type:Provider Instructions for Treatment How to access health informa tion online Indication:Non-smoker Start:03-Nov-2016 Instruction Type:Patient Education How to access health informa tion online - Detail Indication:Non-smoker Start:03-Nov-2016 Instruction Type:Patient Education Patient Instructions Indication:Non-smoker Start:03-Nov-2016 Instruction Type:Provider Instructions for Treatment How to access health informa tion online Indication:Non-smoker Start:20-Oct-2016 Instruction Type:Patient Education How to access health informa tion online - Detail Indication:Non-smoker Start:20-Oct-2016 Instruction Type:Patient Education Patient Instructions Indication:Non-smoker Start:20-Oct-2016 Instruction Type:Provider Instructions for Treatment obesity counseling Indication:Benign essential HTN Start:15-Sep-2016 Instruction Type:Provider Instructions for Treatment How to access health informa tion online Indication:Non-smoker Start:15-Sep-2016 Instruction Type:Patient Education How to access health informa tion online - Detail Indication:Non-smoker Start:15-Sep-2016 Instruction Type:Patient Education Patient Instructions Indication:Non-smoker Start:15-Sep-2016 Instruction Type:Provider Instructions for Treatment How to access health informa tion online Indication:Anxiety Start:02-May-2016 Instruction Type:Patient Education How to access health informa tion online - Detail Indication:Anxiety Start:02-May-2016 Instruction Type:Patient Education Patient Instructions Indication:Anxiety Start:02-May-2016 Instruction Type:Provider Instructions for Treatment obesity counseling Indication:Benign essential HTN Start:10-Sep-2015 Instruction Type:Provider Instructions for Treatment How to access health informa tion online Indication:Anxiety Start:10-Sep-2015 Instruction Type:Patient Education How to access health informa tion online - Detail Indication:Anxiety Start:10-Sep-2015 Instruction Type:Patient Education Patient Instructions Indication:Anxiety Start:10-Sep-2015 Instruction Type:Provider Instructions for Treatment How to access health informa tion online Indication:Hyperlipidemia, mild Start:03-Sep-2015 Instruction Type:Patient Education How to access health informa tion online - Detail Indication:Hyperlipidemia, mild Start:03-Sep-2015 Instruction Type:Patient Education Patient Instructions Indication:Hyperlipidemia, mild Start:03-Sep-2015 Instruction Type:Provider Instructions for Treatment Patient Instructions Indication:Screening, lipid Start:15-May-2014 Instruction Type:Provider Instructions for Treatment Name Dates Details How to access health informa tion online Indication:Non-smoker Start:05-Jul-2018 Instruction Type:Patient Education How to access health informa tion online - Detail Indication:Non-smoker Start:05-Jul-2018 Instruction Type:Patient Education Patient Instructions Indication:Non-smoker Start:05-Jul-2018 Instruction Type:Provider Instructions for Treatment How to access health informa tion online Indication:Non-smoker Start:01-Jul-2018 Instruction Type:Patient Education How to access health informa tion online - Detail Indication:Non-smoker Start:01-Jul-2018 Instruction Type:Patient Education Patient Instructions Indication:Non-smoker Start:01-Jul-2018 Instruction Type:Provider Instructions for Treatment obesity counseling Indication:Benign essential HTN Start:02-Oct-2017 Instruction Type:Provider Instructions for Treatment How to access health informa tion online Indication:BMI 40.0-44.9, adult Start:02-Oct-2017 Instruction Type:Patient Education How to access health informa tion online - Detail Indication:BMI 40.0-44.9, adult Start:02-Oct-2017 Instruction Type:Patient Education Patient Instructions Indication:BMI 40.0-44.9, adult Start:02-Oct-2017 Instruction Type:Provider Instructions for Treatment How to access health informa tion online Indication:Non-smoker Start:04-Sep-2017 Instruction Type:Patient Education How to access health informa tion online - Detail Indication:Non-smoker Start:04-Sep-2017 Instruction Type:Patient Education Patient Instructions Indication:Non-smoker Start:04-Sep-2017 Instruction Type:Provider Instructions for Treatment How to access health informa tion online Indication:Non-smoker Start:03-Nov-2016 Instruction Type:Patient Education How to access health informa tion online - Detail Indication:Non-smoker Start:03-Nov-2016 Instruction Type:Patient Education Patient Instructions Indication:Non-smoker Start:03-Nov-2016 Instruction Type:Provider Instructions for Treatment How to access health informa tion online Indication:Non-smoker Start:20-Oct-2016 Instruction Type:Patient Education How to access health informa tion online - Detail Indication:Non-smoker Start:20-Oct-2016 Instruction Type:Patient Education Patient Instructions Indication:Non-smoker Start:20-Oct-2016 Instruction Type:Provider Instructions for Treatment obesity counseling Indication:Benign essential HTN Start:15-Sep-2016 Instruction Type:Provider Instructions for Treatment How to access health informa tion online Indication:Non-smoker Start:15-Sep-2016 Instruction Type:Patient Education How to access health informa tion online - Detail Indication:Non-smoker Start:15-Sep-2016 Instruction Type:Patient Education Patient Instructions Indication:Non-smoker Start:15-Sep-2016 Instruction Type:Provider Instructions for Treatment How to access health informa tion online Indication:Anxiety Start:02-May-2016 Instruction Type:Patient Education How to access health informa tion online - Detail Indication:Anxiety Start:02-May-2016 Instruction Type:Patient Education Patient Instructions Indication:Anxiety Start:02-May-2016 Instruction Type:Provider Instructions for Treatment obesity counseling Indication:Benign essential HTN Start:10-Sep-2015 Instruction Type:Provider Instructions for Treatment How to access health informa tion online Indication:Anxiety Start:10-Sep-2015 Instruction Type:Patient Education How to access health informa tion online - Detail Indication:Anxiety Start:10-Sep-2015 Instruction Type:Patient Education Patient Instructions Indication:Anxiety Start:10-Sep-2015 Instruction Type:Provider Instructions for Treatment How to access health informa tion online Indication:Hyperlipidemia, mild Start:03-Sep-2015 Instruction Type:Patient Education How to access health informa tion online - Detail Indication:Hyperlipidemia, mild Start:03-Sep-2015 Instruction Type:Patient Education Patient Instructions Indication:Hyperlipidemia, mild Start:03-Sep-2015 Instruction Type:Provider Instructions for Treatment Patient Instructions Indication:Screening, lipid Start:15-May-2014 Instruction Type:Provider Instructions for Treatment Name Dates Details How to access health informa tion online Indication:Non-smoker Start:05-Jul-2018 Instruction Type:Patient Education How to access health informa tion online - Detail Indication:Non-smoker Start:05-Jul-2018 Instruction Type:Patient Education Patient Instructions Indication:Non-smoker Start:05-Jul-2018 Instruction Type:Provider Instructions for Treatment How to access health informa tion online Indication:Non-smoker Start:01-Jul-2018 Instruction Type:Patient Education How to access health informa tion online - Detail Indication:Non-smoker Start:01-Jul-2018 Instruction Type:Patient Education Patient Instructions Indication:Non-smoker Start:01-Jul-2018 Instruction Type:Provider Instructions for Treatment obesity counseling Indication:Benign essential HTN Start:02-Oct-2017 Instruction Type:Provider Instructions for Treatment How to access health informa tion online Indication:BMI 40.0-44.9, adult Start:02-Oct-2017 Instruction Type:Patient Education How to access health informa tion online - Detail Indication:BMI 40.0-44.9, adult Start:02-Oct-2017 Instruction Type:Patient Education Patient Instructions Indication:BMI 40.0-44.9, adult Start:02-Oct-2017 Instruction Type:Provider Instructions for Treatment How to access health informa tion online Indication:Non-smoker Start:04-Sep-2017 Instruction Type:Patient Education How to access health informa tion online - Detail Indication:Non-smoker Start:04-Sep-2017 Instruction Type:Patient Education Patient Instructions Indication:Non-smoker Start:04-Sep-2017 Instruction Type:Provider Instructions for Treatment How to access health informa tion online Indication:Non-smoker Start:03-Nov-2016 Instruction Type:Patient Education How to access health informa tion online - Detail Indication:Non-smoker Start:03-Nov-2016 Instruction Type:Patient Education Patient Instructions Indication:Non-smoker Start:03-Nov-2016 Instruction Type:Provider Instructions for Treatment How to access health informa tion online Indication:Non-smoker Start:20-Oct-2016 Instruction Type:Patient Education How to access health informa tion online - Detail Indication:Non-smoker Start:20-Oct-2016 Instruction Type:Patient Education Patient Instructions Indication:Non-smoker Start:20-Oct-2016 Instruction Type:Provider Instructions for Treatment obesity counseling Indication:Benign essential HTN Start:15-Sep-2016 Instruction Type:Provider Instructions for Treatment How to access health informa tion online Indication:Non-smoker Start:15-Sep-2016 Instruction Type:Patient Education How to access health informa tion online - Detail Indication:Non-smoker Start:15-Sep-2016 Instruction Type:Patient Education Patient Instructions Indication:Non-smoker Start:15-Sep-2016 Instruction Type:Provider Instructions for Treatment How to access health informa tion online Indication:Anxiety Start:02-May-2016 Instruction Type:Patient Education How to access health informa tion online - Detail Indication:Anxiety Start:02-May-2016 Instruction Type:Patient Education Patient Instructions Indication:Anxiety Start:02-May-2016 Instruction Type:Provider Instructions for Treatment obesity counseling Indication:Benign essential HTN Start:10-Sep-2015 Instruction Type:Provider Instructions for Treatment How to access health informa tion online Indication:Anxiety Start:10-Sep-2015 Instruction Type:Patient Education How to access health informa tion online - Detail Indication:Anxiety Start:10-Sep-2015 Instruction Type:Patient Education Patient Instructions Indication:Anxiety Start:10-Sep-2015 Instruction Type:Provider Instructions for Treatment How to access health informa tion online Indication:Hyperlipidemia, mild Start:03-Sep-2015 Instruction Type:Patient Education How to access health informa tion online - Detail Indication:Hyperlipidemia, mild Start:03-Sep-2015 Instruction Type:Patient Education Patient Instructions Indication:Hyperlipidemia, mild Start:03-Sep-2015 Instruction Type:Provider Instructions for Treatment Patient Instructions Indication:Screening, lipid Start:15-May-2014 Instruction Type:Provider Instructions for Treatment Name Dates Details How to access health informa tion online Indication:Non-smoker Start:23-Nov-2018 Instruction Type:Patient Education How to access health informa tion online - Detail Indication:Non-smoker Start:23-Nov-2018 Instruction Type:Patient Education Patient Instructions Indication:Non-smoker Start:23-Nov-2018 Instruction Type:Provider Instructions for Treatment How to access health informa tion online Indication:Non-smoker Start:08-Nov-2018 Instruction Type:Patient Education How to access health informa tion online - Detail Indication:Non-smoker Start:08-Nov-2018 Instruction Type:Patient Education Patient Instructions Indication:Non-smoker Start:08-Nov-2018 Instruction Type:Provider Instructions for Treatment How to access health informa tion online Indication:Non-smoker Start:05-Jul-2018 Instruction Type:Patient Education How to access health informa tion online - Detail Indication:Non-smoker Start:05-Jul-2018 Instruction Type:Patient Education Patient Instructions Indication:Non-smoker Start:05-Jul-2018 Instruction Type:Provider Instructions for Treatment How to access health informa tion online Indication:Non-smoker Start:01-Jul-2018 Instruction Type:Patient Education How to access health informa tion online - Detail Indication:Non-smoker Start:01-Jul-2018 Instruction Type:Patient Education Patient Instructions Indication:Non-smoker Start:01-Jul-2018 Instruction Type:Provider Instructions for Treatment obesity counseling Indication:Benign essential HTN Start:02-Oct-2017 Instruction Type:Provider Instructions for Treatment How to access health informa tion online Indication:BMI 40.0-44.9, adult Start:02-Oct-2017 Instruction Type:Patient Education How to access health informa tion online - Detail Indication:BMI 40.0-44.9, adult Start:02-Oct-2017 Instruction Type:Patient Education Patient Instructions Indication:BMI 40.0-44.9, adult Start:02-Oct-2017 Instruction Type:Provider Instructions for Treatment How to access health informa tion online Indication:Non-smoker Start:04-Sep-2017 Instruction Type:Patient Education How to access health informa tion online - Detail Indication:Non-smoker Start:04-Sep-2017 Instruction Type:Patient Education Patient Instructions Indication:Non-smoker Start:04-Sep-2017 Instruction Type:Provider Instructions for Treatment How to access health informa tion online Indication:Non-smoker Start:03-Nov-2016 Instruction Type:Patient Education How to access health informa tion online - Detail Indication:Non-smoker Start:03-Nov-2016 Instruction Type:Patient Education Patient Instructions Indication:Non-smoker Start:03-Nov-2016 Instruction Type:Provider Instructions for Treatment How to access health informa tion online Indication:Non-smoker Start:20-Oct-2016 Instruction Type:Patient Education How to access health informa tion online - Detail Indication:Non-smoker Start:20-Oct-2016 Instruction Type:Patient Education Patient Instructions Indication:Non-smoker Start:20-Oct-2016 Instruction Type:Provider Instructions for Treatment obesity counseling Indication:Benign essential HTN Start:15-Sep-2016 Instruction Type:Provider Instructions for Treatment How to access health informa tion online Indication:Non-smoker Start:15-Sep-2016 Instruction Type:Patient Education How to access health informa tion online - Detail Indication:Non-smoker Start:15-Sep-2016 Instruction Type:Patient Education Patient Instructions Indication:Non-smoker Start:15-Sep-2016 Instruction Type:Provider Instructions for Treatment How to access health informa tion online Indication:Anxiety Start:02-May-2016 Instruction Type:Patient Education How to access health informa tion online - Detail Indication:Anxiety Start:02-May-2016 Instruction Type:Patient Education Patient Instructions Indication:Anxiety Start:02-May-2016 Instruction Type:Provider Instructions for Treatment obesity counseling Indication:Benign essential HTN Start:10-Sep-2015 Instruction Type:Provider Instructions for Treatment How to access health informa tion online Indication:Anxiety Start:10-Sep-2015 Instruction Type:Patient Education How to access health informa tion online - Detail Indication:Anxiety Start:10-Sep-2015 Instruction Type:Patient Education Patient Instructions Indication:Anxiety Start:10-Sep-2015 Instruction Type:Provider Instructions for Treatment How to access health informa tion online Indication:Hyperlipidemia, mild Start:03-Sep-2015 Instruction Type:Patient Education How to access health informa tion online - Detail Indication:Hyperlipidemia, mild Start:03-Sep-2015 Instruction Type:Patient Education Patient Instructions Indication:Hyperlipidemia, mild Start:03-Sep-2015 Instruction Type:Provider Instructions for Treatment Patient Instructions Indication:Screening, lipid Start:15-May-2014 Instruction Type:Provider Instructions for Treatment Name Dates Details How to access health informa tion online Indication:Non-smoker Start:21-Dec-2018 Instruction Type:Patient Education How to access health informa tion online - Detail Indication:Non-smoker Start:21-Dec-2018 Instruction Type:Patient Education Patient Instructions Indication:Non-smoker Start:21-Dec-2018 Instruction Type:Provider Instructions for Treatment How to access health informa tion online Indication:Non-smoker Start:23-Nov-2018 Instruction Type:Patient Education How to access health informa tion online - Detail Indication:Non-smoker Start:23-Nov-2018 Instruction Type:Patient Education Patient Instructions Indication:Non-smoker Start:23-Nov-2018 Instruction Type:Provider Instructions for Treatment How to access health informa tion online Indication:Non-smoker Start:08-Nov-2018 Instruction Type:Patient Education How to access health informa tion online - Detail Indication:Non-smoker Start:08-Nov-2018 Instruction Type:Patient Education Patient Instructions Indication:Non-smoker Start:08-Nov-2018 Instruction Type:Provider Instructions for Treatment How to access health informa tion online Indication:Non-smoker Start:05-Jul-2018 Instruction Type:Patient Education How to access health informa tion online - Detail Indication:Non-smoker Start:05-Jul-2018 Instruction Type:Patient Education Patient Instructions Indication:Non-smoker Start:05-Jul-2018 Instruction Type:Provider Instructions for Treatment How to access health informa tion online Indication:Non-smoker Start:01-Jul-2018 Instruction Type:Patient Education How to access health informa tion online - Detail Indication:Non-smoker Start:01-Jul-2018 Instruction Type:Patient Education Patient Instructions Indication:Non-smoker Start:01-Jul-2018 Instruction Type:Provider Instructions for Treatment obesity counseling Indication:Benign essential HTN Start:02-Oct-2017 Instruction Type:Provider Instructions for Treatment How to access health informa tion online Indication:BMI 40.0-44.9, adult Start:02-Oct-2017 Instruction Type:Patient Education How to access health informa tion online - Detail Indication:BMI 40.0-44.9, adult Start:02-Oct-2017 Instruction Type:Patient Education Patient Instructions Indication:BMI 40.0-44.9, adult Start:02-Oct-2017 Instruction Type:Provider Instructions for Treatment How to access health informa tion online Indication:Non-smoker Start:04-Sep-2017 Instruction Type:Patient Education How to access health informa tion online - Detail Indication:Non-smoker Start:04-Sep-2017 Instruction Type:Patient Education Patient Instructions Indication:Non-smoker Start:04-Sep-2017 Instruction Type:Provider Instructions for Treatment How to access health informa tion online Indication:Non-smoker Start:03-Nov-2016 Instruction Type:Patient Education How to access health informa tion online - Detail Indication:Non-smoker Start:03-Nov-2016 Instruction Type:Patient Education Patient Instructions Indication:Non-smoker Start:03-Nov-2016 Instruction Type:Provider Instructions for Treatment How to access health informa tion online Indication:Non-smoker Start:20-Oct-2016 Instruction Type:Patient Education How to access health informa tion online - Detail Indication:Non-smoker Start:20-Oct-2016 Instruction Type:Patient Education Patient Instructions Indication:Non-smoker Start:20-Oct-2016 Instruction Type:Provider Instructions for Treatment obesity counseling Indication:Benign essential HTN Start:15-Sep-2016 Instruction Type:Provider Instructions for Treatment How to access health informa tion online Indication:Non-smoker Start:15-Sep-2016 Instruction Type:Patient Education How to access health informa tion online - Detail Indication:Non-smoker Start:15-Sep-2016 Instruction Type:Patient Education Patient Instructions Indication:Non-smoker Start:15-Sep-2016 Instruction Type:Provider Instructions for Treatment How to access health informa tion online Indication:Anxiety Start:02-May-2016 Instruction Type:Patient Education How to access health informa tion online - Detail Indication:Anxiety Start:02-May-2016 Instruction Type:Patient Education Patient Instructions Indication:Anxiety Start:02-May-2016 Instruction Type:Provider Instructions for Treatment obesity counseling Indication:Benign essential HTN Start:10-Sep-2015 Instruction Type:Provider Instructions for Treatment How to access health informa tion online Indication:Anxiety Start:10-Sep-2015 Instruction Type:Patient Education How to access health informa tion online - Detail Indication:Anxiety Start:10-Sep-2015 Instruction Type:Patient Education Patient Instructions Indication:Anxiety Start:10-Sep-2015 Instruction Type:Provider Instructions for Treatment How to access health informa tion online Indication:Hyperlipidemia, mild Start:03-Sep-2015 Instruction Type:Patient Education How to access health informa tion online - Detail Indication:Hyperlipidemia, mild Start:03-Sep-2015 Instruction Type:Patient Education Patient Instructions Indication:Hyperlipidemia, mild Start:03-Sep-2015 Instruction Type:Provider Instructions for Treatment Patient Instructions Indication:Screening, lipid Start:15-May-2014 Instruction Type:Provider Instructions for Treatment Name Dates Details How to access health informa tion online Indication:Non-smoker Start:29-Dec-2018 Instruction Type:Patient Education How to access health informa tion online - Detail Indication:Non-smoker Start:29-Dec-2018 Instruction Type:Patient Education Patient Instructions Indication:Non-smoker Start:29-Dec-2018 Instruction Type:Provider Instructions for Treatment How to access health informa tion online Indication:Non-smoker Start:21-Dec-2018 Instruction Type:Patient Education How to access health informa tion online - Detail Indication:Non-smoker Start:21-Dec-2018 Instruction Type:Patient Education Patient Instructions Indication:Non-smoker Start:21-Dec-2018 Instruction Type:Provider Instructions for Treatment How to access health informa tion online Indication:Non-smoker Start:23-Nov-2018 Instruction Type:Patient Education How to access health informa tion online - Detail Indication:Non-smoker Start:23-Nov-2018 Instruction Type:Patient Education Patient Instructions Indication:Non-smoker Start:23-Nov-2018 Instruction Type:Provider Instructions for Treatment How to access health informa tion online Indication:Non-smoker Start:08-Nov-2018 Instruction Type:Patient Education How to access health informa tion online - Detail Indication:Non-smoker Start:08-Nov-2018 Instruction Type:Patient Education Patient Instructions Indication:Non-smoker Start:08-Nov-2018 Instruction Type:Provider Instructions for Treatment How to access health informa tion online Indication:Non-smoker Start:05-Jul-2018 Instruction Type:Patient Education How to access health informa tion online - Detail Indication:Non-smoker Start:05-Jul-2018 Instruction Type:Patient Education Patient Instructions Indication:Non-smoker Start:05-Jul-2018 Instruction Type:Provider Instructions for Treatment How to access health informa tion online Indication:Non-smoker Start:01-Jul-2018 Instruction Type:Patient Education How to access health informa tion online - Detail Indication:Non-smoker Start:01-Jul-2018 Instruction Type:Patient Education Patient Instructions Indication:Non-smoker Start:01-Jul-2018 Instruction Type:Provider Instructions for Treatment obesity counseling Indication:Benign essential HTN Start:02-Oct-2017 Instruction Type:Provider Instructions for Treatment How to access health informa tion online Indication:BMI 40.0-44.9, adult Start:02-Oct-2017 Instruction Type:Patient Education How to access health informa tion online - Detail Indication:BMI 40.0-44.9, adult Start:02-Oct-2017 Instruction Type:Patient Education Patient Instructions Indication:BMI 40.0-44.9, adult Start:02-Oct-2017 Instruction Type:Provider Instructions for Treatment How to access health informa tion online Indication:Non-smoker Start:04-Sep-2017 Instruction Type:Patient Education How to access health informa tion online - Detail Indication:Non-smoker Start:04-Sep-2017 Instruction Type:Patient Education Patient Instructions Indication:Non-smoker Start:04-Sep-2017 Instruction Type:Provider Instructions for Treatment How to access health informa tion online Indication:Non-smoker Start:03-Nov-2016 Instruction Type:Patient Education How to access health informa tion online - Detail Indication:Non-smoker Start:03-Nov-2016 Instruction Type:Patient Education Patient Instructions Indication:Non-smoker Start:03-Nov-2016 Instruction Type:Provider Instructions for Treatment How to access health informa tion online Indication:Non-smoker Start:20-Oct-2016 Instruction Type:Patient Education How to access health informa tion online - Detail Indication:Non-smoker Start:20-Oct-2016 Instruction Type:Patient Education Patient Instructions Indication:Non-smoker Start:20-Oct-2016 Instruction Type:Provider Instructions for Treatment obesity counseling Indication:Benign essential HTN Start:15-Sep-2016 Instruction Type:Provider Instructions for Treatment How to access health informa tion online Indication:Non-smoker Start:15-Sep-2016 Instruction Type:Patient Education How to access health informa tion online - Detail Indication:Non-smoker Start:15-Sep-2016 Instruction Type:Patient Education Patient Instructions Indication:Non-smoker Start:15-Sep-2016 Instruction Type:Provider Instructions for Treatment How to access health informa tion online Indication:Anxiety Start:02-May-2016 Instruction Type:Patient Education How to access health informa tion online - Detail Indication:Anxiety Start:02-May-2016 Instruction Type:Patient Education Patient Instructions Indication:Anxiety Start:02-May-2016 Instruction Type:Provider Instructions for Treatment obesity counseling Indication:Benign essential HTN Start:10-Sep-2015 Instruction Type:Provider Instructions for Treatment How to access health informa tion online Indication:Anxiety Start:10-Sep-2015 Instruction Type:Patient Education How to access health informa tion online - Detail Indication:Anxiety Start:10-Sep-2015 Instruction Type:Patient Education Patient Instructions Indication:Anxiety Start:10-Sep-2015 Instruction Type:Provider Instructions for Treatment How to access health informa tion online Indication:Hyperlipidemia, mild Start:03-Sep-2015 Instruction Type:Patient Education How to access health informa tion online - Detail Indication:Hyperlipidemia, mild Start:03-Sep-2015 Instruction Type:Patient Education Patient Instructions Indication:Hyperlipidemia, mild Start:03-Sep-2015 Instruction Type:Provider Instructions for Treatment Patient Instructions Indication:Screening, lipid Start:15-May-2014 Instruction Type:Provider Instructions for Treatment Name Dates Details How to access health informa tion online Indication:Non-smoker Start:29-Dec-2018 Instruction Type:Patient Education How to access health informa tion online - Detail Indication:Non-smoker Start:29-Dec-2018 Instruction Type:Patient Education Patient Instructions Indication:Non-smoker Start:29-Dec-2018 Instruction Type:Provider Instructions for Treatment How to access health informa tion online Indication:Non-smoker Start:21-Dec-2018 Instruction Type:Patient Education How to access health informa tion online - Detail Indication:Non-smoker Start:21-Dec-2018 Instruction Type:Patient Education Patient Instructions Indication:Non-smoker Start:21-Dec-2018 Instruction Type:Provider Instructions for Treatment How to access health informa tion online Indication:Non-smoker Start:23-Nov-2018 Instruction Type:Patient Education How to access health informa tion online - Detail Indication:Non-smoker Start:23-Nov-2018 Instruction Type:Patient Education Patient Instructions Indication:Non-smoker Start:23-Nov-2018 Instruction Type:Provider Instructions for Treatment How to access health informa tion online Indication:Non-smoker Start:08-Nov-2018 Instruction Type:Patient Education How to access health informa tion online - Detail Indication:Non-smoker Start:08-Nov-2018 Instruction Type:Patient Education Patient Instructions Indication:Non-smoker Start:08-Nov-2018 Instruction Type:Provider Instructions for Treatment How to access health informa tion online Indication:Non-smoker Start:05-Jul-2018 Instruction Type:Patient Education How to access health informa tion online - Detail Indication:Non-smoker Start:05-Jul-2018 Instruction Type:Patient Education Patient Instructions Indication:Non-smoker Start:05-Jul-2018 Instruction Type:Provider Instructions for Treatment How to access health informa tion online Indication:Non-smoker Start:01-Jul-2018 Instruction Type:Patient Education How to access health informa tion online - Detail Indication:Non-smoker Start:01-Jul-2018 Instruction Type:Patient Education Patient Instructions Indication:Non-smoker Start:01-Jul-2018 Instruction Type:Provider Instructions for Treatment obesity counseling Indication:Benign essential HTN Start:02-Oct-2017 Instruction Type:Provider Instructions for Treatment How to access health informa tion online Indication:BMI 40.0-44.9, adult Start:02-Oct-2017 Instruction Type:Patient Education How to access health informa tion online - Detail Indication:BMI 40.0-44.9, adult Start:02-Oct-2017 Instruction Type:Patient Education Patient Instructions Indication:BMI 40.0-44.9, adult Start:02-Oct-2017 Instruction Type:Provider Instructions for Treatment How to access health informa tion online Indication:Non-smoker Start:04-Sep-2017 Instruction Type:Patient Education How to access health informa tion online - Detail Indication:Non-smoker Start:04-Sep-2017 Instruction Type:Patient Education Patient Instructions Indication:Non-smoker Start:04-Sep-2017 Instruction Type:Provider Instructions for Treatment How to access health informa tion online Indication:Non-smoker Start:03-Nov-2016 Instruction Type:Patient Education How to access health informa tion online - Detail Indication:Non-smoker Start:03-Nov-2016 Instruction Type:Patient Education Patient Instructions Indication:Non-smoker Start:03-Nov-2016 Instruction Type:Provider Instructions for Treatment How to access health informa tion online Indication:Non-smoker Start:20-Oct-2016 Instruction Type:Patient Education How to access health informa tion online - Detail Indication:Non-smoker Start:20-Oct-2016 Instruction Type:Patient Education Patient Instructions Indication:Non-smoker Start:20-Oct-2016 Instruction Type:Provider Instructions for Treatment obesity counseling Indication:Benign essential HTN Start:15-Sep-2016 Instruction Type:Provider Instructions for Treatment How to access health informa tion online Indication:Non-smoker Start:15-Sep-2016 Instruction Type:Patient Education How to access health informa tion online - Detail Indication:Non-smoker Start:15-Sep-2016 Instruction Type:Patient Education Patient Instructions Indication:Non-smoker Start:15-Sep-2016 Instruction Type:Provider Instructions for Treatment How to access health informa tion online Indication:Anxiety Start:02-May-2016 Instruction Type:Patient Education How to access health informa tion online - Detail Indication:Anxiety Start:02-May-2016 Instruction Type:Patient Education Patient Instructions Indication:Anxiety Start:02-May-2016 Instruction Type:Provider Instructions for Treatment obesity counseling Indication:Benign essential HTN Start:10-Sep-2015 Instruction Type:Provider Instructions for Treatment How to access health informa tion online Indication:Anxiety Start:10-Sep-2015 Instruction Type:Patient Education How to access health informa tion online - Detail Indication:Anxiety Start:10-Sep-2015 Instruction Type:Patient Education Patient Instructions Indication:Anxiety Start:10-Sep-2015 Instruction Type:Provider Instructions for Treatment How to access health informa tion online Indication:Hyperlipidemia, mild Start:03-Sep-2015 Instruction Type:Patient Education How to access health informa tion online - Detail Indication:Hyperlipidemia, mild Start:03-Sep-2015 Instruction Type:Patient Education Patient Instructions Indication:Hyperlipidemia, mild Start:03-Sep-2015 Instruction Type:Provider Instructions for Treatment Patient Instructions Indication:Screening, lipid Start:15-May-2014 Instruction Type:Provider Instructions for Treatment Name Dates Details How to access health informa tion online Indication:Non-smoker Start:29-Dec-2018 Instruction Type:Patient Education How to access health informa tion online - Detail Indication:Non-smoker Start:29-Dec-2018 Instruction Type:Patient Education Patient Instructions Indication:Non-smoker Start:29-Dec-2018 Instruction Type:Provider Instructions for Treatment How to access health informa tion online Indication:Non-smoker Start:21-Dec-2018 Instruction Type:Patient Education How to access health informa tion online - Detail Indication:Non-smoker Start:21-Dec-2018 Instruction Type:Patient Education Patient Instructions Indication:Non-smoker Start:21-Dec-2018 Instruction Type:Provider Instructions for Treatment How to access health informa tion online Indication:Non-smoker Start:23-Nov-2018 Instruction Type:Patient Education How to access health informa tion online - Detail Indication:Non-smoker Start:23-Nov-2018 Instruction Type:Patient Education Patient Instructions Indication:Non-smoker Start:23-Nov-2018 Instruction Type:Provider Instructions for Treatment How to access health informa tion online Indication:Non-smoker Start:08-Nov-2018 Instruction Type:Patient Education How to access health informa tion online - Detail Indication:Non-smoker Start:08-Nov-2018 Instruction Type:Patient Education Patient Instructions Indication:Non-smoker Start:08-Nov-2018 Instruction Type:Provider Instructions for Treatment How to access health informa tion online Indication:Non-smoker Start:05-Jul-2018 Instruction Type:Patient Education How to access health informa tion online - Detail Indication:Non-smoker Start:05-Jul-2018 Instruction Type:Patient Education Patient Instructions Indication:Non-smoker Start:05-Jul-2018 Instruction Type:Provider Instructions for Treatment How to access health informa tion online Indication:Non-smoker Start:01-Jul-2018 Instruction Type:Patient Education How to access health informa tion online - Detail Indication:Non-smoker Start:01-Jul-2018 Instruction Type:Patient Education Patient Instructions Indication:Non-smoker Start:01-Jul-2018 Instruction Type:Provider Instructions for Treatment obesity counseling Indication:Benign essential HTN Start:02-Oct-2017 Instruction Type:Provider Instructions for Treatment How to access health informa tion online Indication:BMI 40.0-44.9, adult Start:02-Oct-2017 Instruction Type:Patient Education How to access health informa tion online - Detail Indication:BMI 40.0-44.9, adult Start:02-Oct-2017 Instruction Type:Patient Education Patient Instructions Indication:BMI 40.0-44.9, adult Start:02-Oct-2017 Instruction Type:Provider Instructions for Treatment How to access health informa tion online Indication:Non-smoker Start:04-Sep-2017 Instruction Type:Patient Education How to access health informa tion online - Detail Indication:Non-smoker Start:04-Sep-2017 Instruction Type:Patient Education Patient Instructions Indication:Non-smoker Start:04-Sep-2017 Instruction Type:Provider Instructions for Treatment How to access health informa tion online Indication:Non-smoker Start:03-Nov-2016 Instruction Type:Patient Education How to access health informa tion online - Detail Indication:Non-smoker Start:03-Nov-2016 Instruction Type:Patient Education Patient Instructions Indication:Non-smoker Start:03-Nov-2016 Instruction Type:Provider Instructions for Treatment How to access health informa tion online Indication:Non-smoker Start:20-Oct-2016 Instruction Type:Patient Education How to access health informa tion online - Detail Indication:Non-smoker Start:20-Oct-2016 Instruction Type:Patient Education Patient Instructions Indication:Non-smoker Start:20-Oct-2016 Instruction Type:Provider Instructions for Treatment obesity counseling Indication:Benign essential HTN Start:15-Sep-2016 Instruction Type:Provider Instructions for Treatment How to access health informa tion online Indication:Non-smoker Start:15-Sep-2016 Instruction Type:Patient Education How to access health informa tion online - Detail Indication:Non-smoker Start:15-Sep-2016 Instruction Type:Patient Education Patient Instructions Indication:Non-smoker Start:15-Sep-2016 Instruction Type:Provider Instructions for Treatment How to access health informa tion online Indication:Anxiety Start:02-May-2016 Instruction Type:Patient Education How to access health informa tion online - Detail Indication:Anxiety Start:02-May-2016 Instruction Type:Patient Education Patient Instructions Indication:Anxiety Start:02-May-2016 Instruction Type:Provider Instructions for Treatment obesity counseling Indication:Benign essential HTN Start:10-Sep-2015 Instruction Type:Provider Instructions for Treatment How to access health informa tion online Indication:Anxiety Start:10-Sep-2015 Instruction Type:Patient Education How to access health informa tion online - Detail Indication:Anxiety Start:10-Sep-2015 Instruction Type:Patient Education Patient Instructions Indication:Anxiety Start:10-Sep-2015 Instruction Type:Provider Instructions for Treatment How to access health informa tion online Indication:Hyperlipidemia, mild Start:03-Sep-2015 Instruction Type:Patient Education How to access health informa tion online - Detail Indication:Hyperlipidemia, mild Start:03-Sep-2015 Instruction Type:Patient Education Patient Instructions Indication:Hyperlipidemia, mild Start:03-Sep-2015 Instruction Type:Provider Instructions for Treatment Patient Instructions Indication:Screening, lipid Start:15-May-2014 Instruction Type:Provider Instructions for Treatment Name Dates Details How to access health informa tion online Indication:Non-smoker Start:29-Dec-2018 Instruction Type:Patient Education How to access health informa tion online - Detail Indication:Non-smoker Start:29-Dec-2018 Instruction Type:Patient Education Patient Instructions Indication:Non-smoker Start:29-Dec-2018 Instruction Type:Provider Instructions for Treatment How to access health informa tion online Indication:Non-smoker Start:21-Dec-2018 Instruction Type:Patient Education How to access health informa tion online - Detail Indication:Non-smoker Start:21-Dec-2018 Instruction Type:Patient Education Patient Instructions Indication:Non-smoker Start:21-Dec-2018 Instruction Type:Provider Instructions for Treatment How to access health informa tion online Indication:Non-smoker Start:23-Nov-2018 Instruction Type:Patient Education How to access health informa tion online - Detail Indication:Non-smoker Start:23-Nov-2018 Instruction Type:Patient Education Patient Instructions Indication:Non-smoker Start:23-Nov-2018 Instruction Type:Provider Instructions for Treatment How to access health informa tion online Indication:Non-smoker Start:08-Nov-2018 Instruction Type:Patient Education How to access health informa tion online - Detail Indication:Non-smoker Start:08-Nov-2018 Instruction Type:Patient Education Patient Instructions Indication:Non-smoker Start:08-Nov-2018 Instruction Type:Provider Instructions for Treatment How to access health informa tion online Indication:Non-smoker Start:05-Jul-2018 Instruction Type:Patient Education How to access health informa tion online - Detail Indication:Non-smoker Start:05-Jul-2018 Instruction Type:Patient Education Patient Instructions Indication:Non-smoker Start:05-Jul-2018 Instruction Type:Provider Instructions for Treatment How to access health informa tion online Indication:Non-smoker Start:01-Jul-2018 Instruction Type:Patient Education How to access health informa tion online - Detail Indication:Non-smoker Start:01-Jul-2018 Instruction Type:Patient Education Patient Instructions Indication:Non-smoker Start:01-Jul-2018 Instruction Type:Provider Instructions for Treatment obesity counseling Indication:Benign essential HTN Start:02-Oct-2017 Instruction Type:Provider Instructions for Treatment How to access health informa tion online Indication:BMI 40.0-44.9, adult Start:02-Oct-2017 Instruction Type:Patient Education How to access health informa tion online - Detail Indication:BMI 40.0-44.9, adult Start:02-Oct-2017 Instruction Type:Patient Education Patient Instructions Indication:BMI 40.0-44.9, adult Start:02-Oct-2017 Instruction Type:Provider Instructions for Treatment How to access health informa tion online Indication:Non-smoker Start:04-Sep-2017 Instruction Type:Patient Education How to access health informa tion online - Detail Indication:Non-smoker Start:04-Sep-2017 Instruction Type:Patient Education Patient Instructions Indication:Non-smoker Start:04-Sep-2017 Instruction Type:Provider Instructions for Treatment How to access health informa tion online Indication:Non-smoker Start:03-Nov-2016 Instruction Type:Patient Education How to access health informa tion online - Detail Indication:Non-smoker Start:03-Nov-2016 Instruction Type:Patient Education Patient Instructions Indication:Non-smoker Start:03-Nov-2016 Instruction Type:Provider Instructions for Treatment How to access health informa tion online Indication:Non-smoker Start:20-Oct-2016 Instruction Type:Patient Education How to access health informa tion online - Detail Indication:Non-smoker Start:20-Oct-2016 Instruction Type:Patient Education Patient Instructions Indication:Non-smoker Start:20-Oct-2016 Instruction Type:Provider Instructions for Treatment obesity counseling Indication:Benign essential HTN Start:15-Sep-2016 Instruction Type:Provider Instructions for Treatment How to access health informa tion online Indication:Non-smoker Start:15-Sep-2016 Instruction Type:Patient Education How to access health informa tion online - Detail Indication:Non-smoker Start:15-Sep-2016 Instruction Type:Patient Education Patient Instructions Indication:Non-smoker Start:15-Sep-2016 Instruction Type:Provider Instructions for Treatment How to access health informa tion online Indication:Anxiety Start:02-May-2016 Instruction Type:Patient Education How to access health informa tion online - Detail Indication:Anxiety Start:02-May-2016 Instruction Type:Patient Education Patient Instructions Indication:Anxiety Start:02-May-2016 Instruction Type:Provider Instructions for Treatment obesity counseling Indication:Benign essential HTN Start:10-Sep-2015 Instruction Type:Provider Instructions for Treatment How to access health informa tion online Indication:Anxiety Start:10-Sep-2015 Instruction Type:Patient Education How to access health informa tion online - Detail Indication:Anxiety Start:10-Sep-2015 Instruction Type:Patient Education Patient Instructions Indication:Anxiety Start:10-Sep-2015 Instruction Type:Provider Instructions for Treatment How to access health informa tion online Indication:Hyperlipidemia, mild Start:03-Sep-2015 Instruction Type:Patient Education How to access health informa tion online - Detail Indication:Hyperlipidemia, mild Start:03-Sep-2015 Instruction Type:Patient Education Patient Instructions Indication:Hyperlipidemia, mild Start:03-Sep-2015 Instruction Type:Provider Instructions for Treatment Patient Instructions Indication:Screening, lipid Start:15-May-2014 Instruction Type:Provider Instructions for Treatment Name Dates Details How to access health informa tion online Indication:BMI 35.0-35.9,adult Start:13-Dec-2019 Instruction Type:Patient Education How to access health informa tion online - Detail Indication:BMI 35.0-35.9,adult Start:13-Dec-2019 Instruction Type:Patient Education Patient Instructions Indication:BMI 35.0-35.9,adult Start:13-Dec-2019 Instruction Type:Provider Instructions for Treatment How to access health informa tion online Indication:BMI 35.0-35.9,adult Start:15-Jun-2019 Instruction Type:Patient Education How to access health informa tion online - Detail Indication:BMI 35.0-35.9,adult Start:15-Jun-2019 Instruction Type:Patient Education Patient Instructions Indication:BMI 35.0-35.9,adult Start:15-Jun-2019 Instruction Type:Provider Instructions for Treatment How to access health informa tion online Indication:Non-smoker Start:29-Dec-2018 Instruction Type:Patient Education How to access health informa tion online - Detail Indication:Non-smoker Start:29-Dec-2018 Instruction Type:Patient Education Patient Instructions Indication:Non-smoker Start:29-Dec-2018 Instruction Type:Provider Instructions for Treatment How to access health informa tion online Indication:Non-smoker Start:21-Dec-2018 Instruction Type:Patient Education How to access health informa tion online - Detail Indication:Non-smoker Start:21-Dec-2018 Instruction Type:Patient Education Patient Instructions Indication:Non-smoker Start:21-Dec-2018 Instruction Type:Provider Instructions for Treatment How to access health informa tion online Indication:Non-smoker Start:23-Nov-2018 Instruction Type:Patient Education How to access health informa tion online - Detail Indication:Non-smoker Start:23-Nov-2018 Instruction Type:Patient Education Patient Instructions Indication:Non-smoker Start:23-Nov-2018 Instruction Type:Provider Instructions for Treatment How to access health informa tion online Indication:Non-smoker Start:08-Nov-2018 Instruction Type:Patient Education How to access health informa tion online - Detail Indication:Non-smoker Start:08-Nov-2018 Instruction Type:Patient Education Patient Instructions Indication:Non-smoker Start:08-Nov-2018 Instruction Type:Provider Instructions for Treatment How to access health informa tion online Indication:Non-smoker Start:05-Jul-2018 Instruction Type:Patient Education How to access health informa tion online - Detail Indication:Non-smoker Start:05-Jul-2018 Instruction Type:Patient Education Patient Instructions Indication:Non-smoker Start:05-Jul-2018 Instruction Type:Provider Instructions for Treatment How to access health informa tion online Indication:Non-smoker Start:01-Jul-2018 Instruction Type:Patient Education How to access health informa tion online - Detail Indication:Non-smoker Start:01-Jul-2018 Instruction Type:Patient Education Patient Instructions Indication:Non-smoker Start:01-Jul-2018 Instruction Type:Provider Instructions for Treatment obesity counseling Indication:Benign essential HTN Start:02-Oct-2017 Instruction Type:Provider Instructions for Treatment How to access health informa tion online Indication:BMI 40.0-44.9, adult Start:02-Oct-2017 Instruction Type:Patient Education How to access health informa tion online - Detail Indication:BMI 40.0-44.9, adult Start:02-Oct-2017 Instruction Type:Patient Education Patient Instructions Indication:BMI 40.0-44.9, adult Start:02-Oct-2017 Instruction Type:Provider Instructions for Treatment How to access health informa tion online Indication:Non-smoker Start:04-Sep-2017 Instruction Type:Patient Education How to access health informa tion online - Detail Indication:Non-smoker Start:04-Sep-2017 Instruction Type:Patient Education Patient Instructions Indication:Non-smoker Start:04-Sep-2017 Instruction Type:Provider Instructions for Treatment How to access health informa tion online Indication:Non-smoker Start:03-Nov-2016 Instruction Type:Patient Education How to access health informa tion online - Detail Indication:Non-smoker Start:03-Nov-2016 Instruction Type:Patient Education Patient Instructions Indication:Non-smoker Start:03-Nov-2016 Instruction Type:Provider Instructions for Treatment How to access health informa tion online Indication:Non-smoker Start:20-Oct-2016 Instruction Type:Patient Education How to access health informa tion online - Detail Indication:Non-smoker Start:20-Oct-2016 Instruction Type:Patient Education Patient Instructions Indication:Non-smoker Start:20-Oct-2016 Instruction Type:Provider Instructions for Treatment obesity counseling Indication:Benign essential HTN Start:15-Sep-2016 Instruction Type:Provider Instructions for Treatment How to access health informa tion online Indication:Non-smoker Start:15-Sep-2016 Instruction Type:Patient Education How to access health informa tion online - Detail Indication:Non-smoker Start:15-Sep-2016 Instruction Type:Patient Education Patient Instructions Indication:Non-smoker Start:15-Sep-2016 Instruction Type:Provider Instructions for Treatment How to access health informa tion online Indication:Anxiety Start:02-May-2016 Instruction Type:Patient Education How to access health informa tion online - Detail Indication:Anxiety Start:02-May-2016 Instruction Type:Patient Education Patient Instructions Indication:Anxiety Start:02-May-2016 Instruction Type:Provider Instructions for Treatment obesity counseling Indication:Benign essential HTN Start:10-Sep-2015 Instruction Type:Provider Instructions for Treatment How to access health informa tion online Indication:Anxiety Start:10-Sep-2015 Instruction Type:Patient Education How to access health informa tion online - Detail Indication:Anxiety Start:10-Sep-2015 Instruction Type:Patient Education Patient Instructions Indication:Anxiety Start:10-Sep-2015 Instruction Type:Provider Instructions for Treatment How to access health informa tion online Indication:Hyperlipidemia, mild Start:03-Sep-2015 Instruction Type:Patient Education How to access health informa tion online - Detail Indication:Hyperlipidemia, mild Start:03-Sep-2015 Instruction Type:Patient Education Patient Instructions Indication:Hyperlipidemia, mild Start:03-Sep-2015 Instruction Type:Provider Instructions for Treatment Patient Instructions Indication:Screening, lipid Start:15-May-2014 Instruction Type:Provider Instructions for Treatment Name Dates Details How to access health informa tion online Indication:BMI 35.0-35.9,adult Start:13-Dec-2019 Instruction Type:Patient Education How to access health informa tion online - Detail Indication:BMI 35.0-35.9,adult Start:13-Dec-2019 Instruction Type:Patient Education Patient Instructions Indication:BMI 35.0-35.9,adult Start:13-Dec-2019 Instruction Type:Provider Instructions for Treatment How to access health informa tion online Indication:BMI 35.0-35.9,adult Start:15-Jun-2019 Instruction Type:Patient Education How to access health informa tion online - Detail Indication:BMI 35.0-35.9,adult Start:15-Jun-2019 Instruction Type:Patient Education Patient Instructions Indication:BMI 35.0-35.9,adult Start:15-Jun-2019 Instruction Type:Provider Instructions for Treatment How to access health informa tion online Indication:Non-smoker Start:29-Dec-2018 Instruction Type:Patient Education How to access health informa tion online - Detail Indication:Non-smoker Start:29-Dec-2018 Instruction Type:Patient Education Patient Instructions Indication:Non-smoker Start:29-Dec-2018 Instruction Type:Provider Instructions for Treatment How to access health informa tion online Indication:Non-smoker Start:21-Dec-2018 Instruction Type:Patient Education How to access health informa tion online - Detail Indication:Non-smoker Start:21-Dec-2018 Instruction Type:Patient Education Patient Instructions Indication:Non-smoker Start:21-Dec-2018 Instruction Type:Provider Instructions for Treatment How to access health informa tion online Indication:Non-smoker Start:23-Nov-2018 Instruction Type:Patient Education How to access health informa tion online - Detail Indication:Non-smoker Start:23-Nov-2018 Instruction Type:Patient Education Patient Instructions Indication:Non-smoker Start:23-Nov-2018 Instruction Type:Provider Instructions for Treatment How to access health informa tion online Indication:Non-smoker Start:08-Nov-2018 Instruction Type:Patient Education How to access health informa tion online - Detail Indication:Non-smoker Start:08-Nov-2018 Instruction Type:Patient Education Patient Instructions Indication:Non-smoker Start:08-Nov-2018 Instruction Type:Provider Instructions for Treatment How to access health informa tion online Indication:Non-smoker Start:05-Jul-2018 Instruction Type:Patient Education How to access health informa tion online - Detail Indication:Non-smoker Start:05-Jul-2018 Instruction Type:Patient Education Patient Instructions Indication:Non-smoker Start:05-Jul-2018 Instruction Type:Provider Instructions for Treatment How to access health informa tion online Indication:Non-smoker Start:01-Jul-2018 Instruction Type:Patient Education How to access health informa tion online - Detail Indication:Non-smoker Start:01-Jul-2018 Instruction Type:Patient Education Patient Instructions Indication:Non-smoker Start:01-Jul-2018 Instruction Type:Provider Instructions for Treatment obesity counseling Indication:Benign essential HTN Start:02-Oct-2017 Instruction Type:Provider Instructions for Treatment How to access health informa tion online Indication:BMI 40.0-44.9, adult Start:02-Oct-2017 Instruction Type:Patient Education How to access health informa tion online - Detail Indication:BMI 40.0-44.9, adult Start:02-Oct-2017 Instruction Type:Patient Education Patient Instructions Indication:BMI 40.0-44.9, adult Start:02-Oct-2017 Instruction Type:Provider Instructions for Treatment How to access health informa tion online Indication:Non-smoker Start:04-Sep-2017 Instruction Type:Patient Education How to access health informa tion online - Detail Indication:Non-smoker Start:04-Sep-2017 Instruction Type:Patient Education Patient Instructions Indication:Non-smoker Start:04-Sep-2017 Instruction Type:Provider Instructions for Treatment How to access health informa tion online Indication:Non-smoker Start:03-Nov-2016 Instruction Type:Patient Education How to access health informa tion online - Detail Indication:Non-smoker Start:03-Nov-2016 Instruction Type:Patient Education Patient Instructions Indication:Non-smoker Start:03-Nov-2016 Instruction Type:Provider Instructions for Treatment How to access health informa tion online Indication:Non-smoker Start:20-Oct-2016 Instruction Type:Patient Education How to access health informa tion online - Detail Indication:Non-smoker Start:20-Oct-2016 Instruction Type:Patient Education Patient Instructions Indication:Non-smoker Start:20-Oct-2016 Instruction Type:Provider Instructions for Treatment obesity counseling Indication:Benign essential HTN Start:15-Sep-2016 Instruction Type:Provider Instructions for Treatment How to access health informa tion online Indication:Non-smoker Start:15-Sep-2016 Instruction Type:Patient Education How to access health informa tion online - Detail Indication:Non-smoker Start:15-Sep-2016 Instruction Type:Patient Education Patient Instructions Indication:Non-smoker Start:15-Sep-2016 Instruction Type:Provider Instructions for Treatment How to access health informa tion online Indication:Anxiety Start:02-May-2016 Instruction Type:Patient Education How to access health informa tion online - Detail Indication:Anxiety Start:02-May-2016 Instruction Type:Patient Education Patient Instructions Indication:Anxiety Start:02-May-2016 Instruction Type:Provider Instructions for Treatment obesity counseling Indication:Benign essential HTN Start:10-Sep-2015 Instruction Type:Provider Instructions for Treatment How to access health informa tion online Indication:Anxiety Start:10-Sep-2015 Instruction Type:Patient Education How to access health informa tion online - Detail Indication:Anxiety Start:10-Sep-2015 Instruction Type:Patient Education Patient Instructions Indication:Anxiety Start:10-Sep-2015 Instruction Type:Provider Instructions for Treatment How to access health informa tion online Indication:Hyperlipidemia, mild Start:03-Sep-2015 Instruction Type:Patient Education How to access health informa tion online - Detail Indication:Hyperlipidemia, mild Start:03-Sep-2015 Instruction Type:Patient Education Patient Instructions Indication:Hyperlipidemia, mild Start:03-Sep-2015 Instruction Type:Provider Instructions for Treatment Patient Instructions Indication:Screening, lipid Start:15-May-2014 Instruction Type:Provider Instructions for Treatment Name Dates Details Patient Instructions Indication:Non-smoker Start:26-Mar-2020 Instruction Type:Provider Instructions for Treatment How to Access Health Informa tion Online using Patient Portal and [employer] Indication:Non-smoker Start:26-Mar-2020 Instruction Type:Patient Education How to access health informa tion online Indication:BMI 35.0-35.9,adult Start:13-Dec-2019 Instruction Type:Patient Education How to access health informa tion online - Detail Indication:BMI 35.0-35.9,adult Start:13-Dec-2019 Instruction Type:Patient Education Patient Instructions Indication:BMI 35.0-35.9,adult Start:13-Dec-2019 Instruction Type:Provider Instructions for Treatment How to access health informa tion online Indication:BMI 35.0-35.9,adult Start:15-Jun-2019 Instruction Type:Patient Education How to access health informa tion online - Detail Indication:BMI 35.0-35.9,adult Start:15-Jun-2019 Instruction Type:Patient Education Patient Instructions Indication:BMI 35.0-35.9,adult Start:15-Jun-2019 Instruction Type:Provider Instructions for Treatment How to access health informa tion online Indication:Non-smoker Start:29-Dec-2018 Instruction Type:Patient Education How to access health informa tion online - Detail Indication:Non-smoker Start:29-Dec-2018 Instruction Type:Patient Education Patient Instructions Indication:Non-smoker Start:29-Dec-2018 Instruction Type:Provider Instructions for Treatment How to access health informa tion online Indication:Non-smoker Start:21-Dec-2018 Instruction Type:Patient Education How to access health informa tion online - Detail Indication:Non-smoker Start:21-Dec-2018 Instruction Type:Patient Education Patient Instructions Indication:Non-smoker Start:21-Dec-2018 Instruction Type:Provider Instructions for Treatment How to access health informa tion online Indication:Non-smoker Start:23-Nov-2018 Instruction Type:Patient Education How to access health informa tion online - Detail Indication:Non-smoker Start:23-Nov-2018 Instruction Type:Patient Education Patient Instructions Indication:Non-smoker Start:23-Nov-2018 Instruction Type:Provider Instructions for Treatment How to access health informa tion online Indication:Non-smoker Start:08-Nov-2018 Instruction Type:Patient Education How to access health informa tion online - Detail Indication:Non-smoker Start:08-Nov-2018 Instruction Type:Patient Education Patient Instructions Indication:Non-smoker Start:08-Nov-2018 Instruction Type:Provider Instructions for Treatment How to access health informa tion online Indication:Non-smoker Start:05-Jul-2018 Instruction Type:Patient Education How to access health informa tion online - Detail Indication:Non-smoker Start:05-Jul-2018 Instruction Type:Patient Education Patient Instructions Indication:Non-smoker Start:05-Jul-2018 Instruction Type:Provider Instructions for Treatment How to access health informa tion online Indication:Non-smoker Start:01-Jul-2018 Instruction Type:Patient Education How to access health informa tion online - Detail Indication:Non-smoker Start:01-Jul-2018 Instruction Type:Patient Education Patient Instructions Indication:Non-smoker Start:01-Jul-2018 Instruction Type:Provider Instructions for Treatment obesity counseling Indication:Benign essential HTN Start:02-Oct-2017 Instruction Type:Provider Instructions for Treatment How to access health informa tion online Indication:BMI 40.0-44.9, adult Start:02-Oct-2017 Instruction Type:Patient Education How to access health informa tion online - Detail Indication:BMI 40.0-44.9, adult Start:02-Oct-2017 Instruction Type:Patient Education Patient Instructions Indication:BMI 40.0-44.9, adult Start:02-Oct-2017 Instruction Type:Provider Instructions for Treatment How to access health informa tion online Indication:Non-smoker Start:04-Sep-2017 Instruction Type:Patient Education How to access health informa tion online - Detail Indication:Non-smoker Start:04-Sep-2017 Instruction Type:Patient Education Patient Instructions Indication:Non-smoker Start:04-Sep-2017 Instruction Type:Provider Instructions for Treatment How to access health informa tion online Indication:Non-smoker Start:03-Nov-2016 Instruction Type:Patient Education How to access health informa tion online - Detail Indication:Non-smoker Start:03-Nov-2016 Instruction Type:Patient Education Patient Instructions Indication:Non-smoker Start:03-Nov-2016 Instruction Type:Provider Instructions for Treatment How to access health informa tion online Indication:Non-smoker Start:20-Oct-2016 Instruction Type:Patient Education How to access health informa tion online - Detail Indication:Non-smoker Start:20-Oct-2016 Instruction Type:Patient Education Patient Instructions Indication:Non-smoker Start:20-Oct-2016 Instruction Type:Provider Instructions for Treatment obesity counseling Indication:Benign essential HTN Start:15-Sep-2016 Instruction Type:Provider Instructions for Treatment How to access health informa tion online Indication:Non-smoker Start:15-Sep-2016 Instruction Type:Patient Education How to access health informa tion online - Detail Indication:Non-smoker Start:15-Sep-2016 Instruction Type:Patient Education Patient Instructions Indication:Non-smoker Start:15-Sep-2016 Instruction Type:Provider Instructions for Treatment How to access health informa tion online Indication:Anxiety Start:02-May-2016 Instruction Type:Patient Education How to access health informa tion online - Detail Indication:Anxiety Start:02-May-2016 Instruction Type:Patient Education Patient Instructions Indication:Anxiety Start:02-May-2016 Instruction Type:Provider Instructions for Treatment obesity counseling Indication:Benign essential HTN Start:10-Sep-2015 Instruction Type:Provider Instructions for Treatment How to access health informa tion online Indication:Anxiety Start:10-Sep-2015 Instruction Type:Patient Education How to access health informa tion online - Detail Indication:Anxiety Start:10-Sep-2015 Instruction Type:Patient Education Patient Instructions Indication:Anxiety Start:10-Sep-2015 Instruction Type:Provider Instructions for Treatment How to access health informa tion online Indication:Hyperlipidemia, mild Start:03-Sep-2015 Instruction Type:Patient Education How to access health informa tion online - Detail Indication:Hyperlipidemia, mild Start:03-Sep-2015 Instruction Type:Patient Education Patient Instructions Indication:Hyperlipidemia, mild Start:03-Sep-2015 Instruction Type:Provider Instructions for Treatment Patient Instructions Indication:Screening, lipid Start:15-May-2014 Instruction Type:Provider Instructions for Treatment Name Dates Details How to access health informa tion online Indication:Non-smoker Start:08-Nov-2018 Instruction Type:Patient Education How to access health informa tion online - Detail Indication:Non-smoker Start:08-Nov-2018 Instruction Type:Patient Education Patient Instructions Indication:Non-smoker Start:08-Nov-2018 Instruction Type:Provider Instructions for Treatment How to access health informa tion online Indication:Non-smoker Start:05-Jul-2018 Instruction Type:Patient Education How to access health informa tion online - Detail Indication:Non-smoker Start:05-Jul-2018 Instruction Type:Patient Education Patient Instructions Indication:Non-smoker Start:05-Jul-2018 Instruction Type:Provider Instructions for Treatment How to access health informa tion online Indication:Non-smoker Start:01-Jul-2018 Instruction Type:Patient Education How to access health informa tion online - Detail Indication:Non-smoker Start:01-Jul-2018 Instruction Type:Patient Education Patient Instructions Indication:Non-smoker Start:01-Jul-2018 Instruction Type:Provider Instructions for Treatment obesity counseling Indication:Benign essential HTN Start:02-Oct-2017 Instruction Type:Provider Instructions for Treatment How to access health informa tion online Indication:BMI 40.0-44.9, adult Start:02-Oct-2017 Instruction Type:Patient Education How to access health informa tion online - Detail Indication:BMI 40.0-44.9, adult Start:02-Oct-2017 Instruction Type:Patient Education Patient Instructions Indication:BMI 40.0-44.9, adult Start:02-Oct-2017 Instruction Type:Provider Instructions for Treatment How to access health informa tion online Indication:Non-smoker Start:04-Sep-2017 Instruction Type:Patient Education How to access health informa tion online - Detail Indication:Non-smoker Start:04-Sep-2017 Instruction Type:Patient Education Patient Instructions Indication:Non-smoker Start:04-Sep-2017 Instruction Type:Provider Instructions for Treatment How to access health informa tion online Indication:Non-smoker Start:03-Nov-2016 Instruction Type:Patient Education How to access health informa tion online - Detail Indication:Non-smoker Start:03-Nov-2016 Instruction Type:Patient Education Patient Instructions Indication:Non-smoker Start:03-Nov-2016 Instruction Type:Provider Instructions for Treatment How to access health informa tion online Indication:Non-smoker Start:20-Oct-2016 Instruction Type:Patient Education How to access health informa tion online - Detail Indication:Non-smoker Start:20-Oct-2016 Instruction Type:Patient Education Patient Instructions Indication:Non-smoker Start:20-Oct-2016 Instruction Type:Provider Instructions for Treatment obesity counseling Indication:Benign essential HTN Start:15-Sep-2016 Instruction Type:Provider Instructions for Treatment How to access health informa tion online Indication:Non-smoker Start:15-Sep-2016 Instruction Type:Patient Education How to access health informa tion online - Detail Indication:Non-smoker Start:15-Sep-2016 Instruction Type:Patient Education Patient Instructions Indication:Non-smoker Start:15-Sep-2016 Instruction Type:Provider Instructions for Treatment How to access health informa tion online Indication:Anxiety Start:02-May-2016 Instruction Type:Patient Education How to access health informa tion online - Detail Indication:Anxiety Start:02-May-2016 Instruction Type:Patient Education Patient Instructions Indication:Anxiety Start:02-May-2016 Instruction Type:Provider Instructions for Treatment obesity counseling Indication:Benign essential HTN Start:10-Sep-2015 Instruction Type:Provider Instructions for Treatment How to access health informa tion online Indication:Anxiety Start:10-Sep-2015 Instruction Type:Patient Education How to access health informa tion online - Detail Indication:Anxiety Start:10-Sep-2015 Instruction Type:Patient Education Patient Instructions Indication:Anxiety Start:10-Sep-2015 Instruction Type:Provider Instructions for Treatment How to access health informa tion online Indication:Hyperlipidemia, mild Start:03-Sep-2015 Instruction Type:Patient Education How to access health informa tion online - Detail Indication:Hyperlipidemia, mild Start:03-Sep-2015 Instruction Type:Patient Education Patient Instructions Indication:Hyperlipidemia, mild Start:03-Sep-2015 Instruction Type:Provider Instructions for Treatment Patient Instructions Indication:Screening, lipid Start:15-May-2014 Instruction Type:Provider Instructions for Treatment Name Dates Details How to access health informa tion online Indication:Non-smoker Start:29-Dec-2018 Instruction Type:Patient Education How to access health informa tion online - Detail Indication:Non-smoker Start:29-Dec-2018 Instruction Type:Patient Education Patient Instructions Indication:Non-smoker Start:29-Dec-2018 Instruction Type:Provider Instructions for Treatment How to access health informa tion online Indication:Non-smoker Start:21-Dec-2018 Instruction Type:Patient Education How to access health informa tion online - Detail Indication:Non-smoker Start:21-Dec-2018 Instruction Type:Patient Education Patient Instructions Indication:Non-smoker Start:21-Dec-2018 Instruction Type:Provider Instructions for Treatment How to access health informa tion online Indication:Non-smoker Start:23-Nov-2018 Instruction Type:Patient Education How to access health informa tion online - Detail Indication:Non-smoker Start:23-Nov-2018 Instruction Type:Patient Education Patient Instructions Indication:Non-smoker Start:23-Nov-2018 Instruction Type:Provider Instructions for Treatment How to access health informa tion online Indication:Non-smoker Start:08-Nov-2018 Instruction Type:Patient Education How to access health informa tion online - Detail Indication:Non-smoker Start:08-Nov-2018 Instruction Type:Patient Education Patient Instructions Indication:Non-smoker Start:08-Nov-2018 Instruction Type:Provider Instructions for Treatment How to access health informa tion online Indication:Non-smoker Start:05-Jul-2018 Instruction Type:Patient Education How to access health informa tion online - Detail Indication:Non-smoker Start:05-Jul-2018 Instruction Type:Patient Education Patient Instructions Indication:Non-smoker Start:05-Jul-2018 Instruction Type:Provider Instructions for Treatment How to access health informa tion online Indication:Non-smoker Start:01-Jul-2018 Instruction Type:Patient Education How to access health informa tion online - Detail Indication:Non-smoker Start:01-Jul-2018 Instruction Type:Patient Education Patient Instructions Indication:Non-smoker Start:01-Jul-2018 Instruction Type:Provider Instructions for Treatment obesity counseling Indication:Benign essential HTN Start:02-Oct-2017 Instruction Type:Provider Instructions for Treatment How to access health informa tion online Indication:BMI 40.0-44.9, adult Start:02-Oct-2017 Instruction Type:Patient Education How to access health informa tion online - Detail Indication:BMI 40.0-44.9, adult Start:02-Oct-2017 Instruction Type:Patient Education Patient Instructions Indication:BMI 40.0-44.9, adult Start:02-Oct-2017 Instruction Type:Provider Instructions for Treatment How to access health informa tion online Indication:Non-smoker Start:04-Sep-2017 Instruction Type:Patient Education How to access health informa tion online - Detail Indication:Non-smoker Start:04-Sep-2017 Instruction Type:Patient Education Patient Instructions Indication:Non-smoker Start:04-Sep-2017 Instruction Type:Provider Instructions for Treatment How to access health informa tion online Indication:Non-smoker Start:03-Nov-2016 Instruction Type:Patient Education How to access health informa tion online - Detail Indication:Non-smoker Start:03-Nov-2016 Instruction Type:Patient Education Patient Instructions Indication:Non-smoker Start:03-Nov-2016 Instruction Type:Provider Instructions for Treatment How to access health informa tion online Indication:Non-smoker Start:20-Oct-2016 Instruction Type:Patient Education How to access health informa tion online - Detail Indication:Non-smoker Start:20-Oct-2016 Instruction Type:Patient Education Patient Instructions Indication:Non-smoker Start:20-Oct-2016 Instruction Type:Provider Instructions for Treatment obesity counseling Indication:Benign essential HTN Start:15-Sep-2016 Instruction Type:Provider Instructions for Treatment How to access health informa tion online Indication:Non-smoker Start:15-Sep-2016 Instruction Type:Patient Education How to access health informa tion online - Detail Indication:Non-smoker Start:15-Sep-2016 Instruction Type:Patient Education Patient Instructions Indication:Non-smoker Start:15-Sep-2016 Instruction Type:Provider Instructions for Treatment How to access health informa tion online Indication:Anxiety Start:02-May-2016 Instruction Type:Patient Education How to access health informa tion online - Detail Indication:Anxiety Start:02-May-2016 Instruction Type:Patient Education Patient Instructions Indication:Anxiety Start:02-May-2016 Instruction Type:Provider Instructions for Treatment obesity counseling Indication:Benign essential HTN Start:10-Sep-2015 Instruction Type:Provider Instructions for Treatment How to access health informa tion online Indication:Anxiety Start:10-Sep-2015 Instruction Type:Patient Education How to access health informa tion online - Detail Indication:Anxiety Start:10-Sep-2015 Instruction Type:Patient Education Patient Instructions Indication:Anxiety Start:10-Sep-2015 Instruction Type:Provider Instructions for Treatment How to access health informa tion online Indication:Hyperlipidemia, mild Start:03-Sep-2015 Instruction Type:Patient Education How to access health informa tion online - Detail Indication:Hyperlipidemia, mild Start:03-Sep-2015 Instruction Type:Patient Education Patient Instructions Indication:Hyperlipidemia, mild Start:03-Sep-2015 Instruction Type:Provider Instructions for Treatment Patient Instructions Indication:Screening, lipid Start:15-May-2014 Instruction Type:Provider Instructions for Treatment Name Dates Details How to access health informa tion online Indication:Non-smoker Start:21-Dec-2018 Instruction Type:Patient Education How to access health informa tion online - Detail Indication:Non-smoker Start:21-Dec-2018 Instruction Type:Patient Education Patient Instructions Indication:Non-smoker Start:21-Dec-2018 Instruction Type:Provider Instructions for Treatment How to access health informa tion online Indication:Non-smoker Start:23-Nov-2018 Instruction Type:Patient Education How to access health informa tion online - Detail Indication:Non-smoker Start:23-Nov-2018 Instruction Type:Patient Education Patient Instructions Indication:Non-smoker Start:23-Nov-2018 Instruction Type:Provider Instructions for Treatment How to access health informa tion online Indication:Non-smoker Start:08-Nov-2018 Instruction Type:Patient Education How to access health informa tion online - Detail Indication:Non-smoker Start:08-Nov-2018 Instruction Type:Patient Education Patient Instructions Indication:Non-smoker Start:08-Nov-2018 Instruction Type:Provider Instructions for Treatment How to access health informa tion online Indication:Non-smoker Start:05-Jul-2018 Instruction Type:Patient Education How to access health informa tion online - Detail Indication:Non-smoker Start:05-Jul-2018 Instruction Type:Patient Education Patient Instructions Indication:Non-smoker Start:05-Jul-2018 Instruction Type:Provider Instructions for Treatment How to access health informa tion online Indication:Non-smoker Start:01-Jul-2018 Instruction Type:Patient Education How to access health informa tion online - Detail Indication:Non-smoker Start:01-Jul-2018 Instruction Type:Patient Education Patient Instructions Indication:Non-smoker Start:01-Jul-2018 Instruction Type:Provider Instructions for Treatment obesity counseling Indication:Benign essential HTN Start:02-Oct-2017 Instruction Type:Provider Instructions for Treatment How to access health informa tion online Indication:BMI 40.0-44.9, adult Start:02-Oct-2017 Instruction Type:Patient Education How to access health informa tion online - Detail Indication:BMI 40.0-44.9, adult Start:02-Oct-2017 Instruction Type:Patient Education Patient Instructions Indication:BMI 40.0-44.9, adult Start:02-Oct-2017 Instruction Type:Provider Instructions for Treatment How to access health informa tion online Indication:Non-smoker Start:04-Sep-2017 Instruction Type:Patient Education How to access health informa tion online - Detail Indication:Non-smoker Start:04-Sep-2017 Instruction Type:Patient Education Patient Instructions Indication:Non-smoker Start:04-Sep-2017 Instruction Type:Provider Instructions for Treatment How to access health informa tion online Indication:Non-smoker Start:03-Nov-2016 Instruction Type:Patient Education How to access health informa tion online - Detail Indication:Non-smoker Start:03-Nov-2016 Instruction Type:Patient Education Patient Instructions Indication:Non-smoker Start:03-Nov-2016 Instruction Type:Provider Instructions for Treatment How to access health informa tion online Indication:Non-smoker Start:20-Oct-2016 Instruction Type:Patient Education How to access health informa tion online - Detail Indication:Non-smoker Start:20-Oct-2016 Instruction Type:Patient Education Patient Instructions Indication:Non-smoker Start:20-Oct-2016 Instruction Type:Provider Instructions for Treatment obesity counseling Indication:Benign essential HTN Start:15-Sep-2016 Instruction Type:Provider Instructions for Treatment How to access health informa tion online Indication:Non-smoker Start:15-Sep-2016 Instruction Type:Patient Education How to access health informa tion online - Detail Indication:Non-smoker Start:15-Sep-2016 Instruction Type:Patient Education Patient Instructions Indication:Non-smoker Start:15-Sep-2016 Instruction Type:Provider Instructions for Treatment How to access health informa tion online Indication:Anxiety Start:02-May-2016 Instruction Type:Patient Education How to access health informa tion online - Detail Indication:Anxiety Start:02-May-2016 Instruction Type:Patient Education Patient Instructions Indication:Anxiety Start:02-May-2016 Instruction Type:Provider Instructions for Treatment obesity counseling Indication:Benign essential HTN Start:10-Sep-2015 Instruction Type:Provider Instructions for Treatment How to access health informa tion online Indication:Anxiety Start:10-Sep-2015 Instruction Type:Patient Education How to access health informa tion online - Detail Indication:Anxiety Start:10-Sep-2015 Instruction Type:Patient Education Patient Instructions Indication:Anxiety Start:10-Sep-2015 Instruction Type:Provider Instructions for Treatment How to access health informa tion online Indication:Hyperlipidemia, mild Start:03-Sep-2015 Instruction Type:Patient Education How to access health informa tion online - Detail Indication:Hyperlipidemia, mild Start:03-Sep-2015 Instruction Type:Patient Education Patient Instructions Indication:Hyperlipidemia, mild Start:03-Sep-2015 Instruction Type:Provider Instructions for Treatment Patient Instructions Indication:Screening, lipid Start:15-May-2014 Instruction Type:Provider Instructions for Treatment Summary Purpose Advance Directives Documents on File Type Date Recorded 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 Advance Directive(s) 05/24/2019 5:05 PM Documents on File Type Date Recorded 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 Advance Directive(s) 05/24/2019 5:05 PM Advance Directive Response Recorded Date/ Time Advance Directives No September 30 10:11am Living Will No October 19, 2017 6:33pm Power of Rn Clinical Resource No October 19 8 6:33pm Date Activated Date Inactivated Comments 08/13/2024 1:38 AM Question Answer Comments Plan of Care: Code Status Discussion Completed Decision Maker: Patient Date Activated Date Inactivated Comments 08/12/2024 10:37 PM 08/13/2024 1:38 AM Question Answer Comments Plan of Care: Code Status Discussion Not Compl eted Decision Maker: Provider Rationale: Patient condition does not warra nt discussion Advance Directive Response Recorded Date/ Time Do you have a Healthcare Power of Rn Clinical Resource? No September 07, 2024 4:29pm Advance Directives No September 30 10:11am Medications Administered Section Inactive Administered Medications - up to 3 most recent administrations Medication Order MAR Action Action Date Dose Rate Site fulvestrant 500 mg injection (FASLODEX) 500 mg, INTRAMUSCULAR, ONCE, 1 dose, On Thu06/18/21 at 1030, Hazardous Chemotherapy Drug: Use appropriate PPE. Refrigerate. Given 06/18/2021 11:24 AM EDT 500 mg Buttocks, Left zoledronic ft-mpmdojxi-7.9NaCl 4 mg iv piggyback 100 mL (ZOMETA) 4 mg, INTRAVENOUS, Administer over 15 Minutes, ONCE, 1 dose, On Thu06/18/21 at 1030, Hazardous Potential Reproductive Risk Drug: Use appropriate PPE. New Bag/Syringe/Bottl e 06/18/2021 10:54 AM EDT 4 mg Inactive Administered Medications - up to 3 most recent administrations Medication Order MAR Action Action Date Dose Rate Site fulvestrant 500 mg injection (FASLODEX) 500 mg, INTRAMUSCULAR, ONCE, 1 dose, On Thu07/16/21 at 1500, Hazardous Chemotherapy Drug: Use appropriate PPE. Refrigerate. Given 07/16/2021 2:59 PM EDT 500 mg Buttocks, Left Inactive Administered Medications - up to 3 most recent administrations Medication Order MAR Action Action Date Dose Rate Site fulvestrant 500 mg injection (FASLODEX) 500 mg, INTRAMUSCULAR, ONCE, 1 dose, On Thu08/13/21 at 1600, Hazardous Chemotherapy Drug: Use appropriate PPE. Refrigerate. Given 08/13/2021 3:48 PM EDT 500 mg Buttocks, Left Inactive Administered Medications - up to 3 most recent administrations Medication Order MAR Action Action Date Dose Rate Site fulvestrant 500 mg injection (FASLODEX) 500 mg, INTRAMUSCULAR, ONCE, 1 dose, On Thu09/10/21 at 1030, Hazardous Chemotherapy Drug: Use appropriate PPE. Refrigerate. Given 09/10/2021 10:46 AM EDT 500 mg Buttocks, Left zoledronic wm-aygboebr-5.9NaCl 4 mg iv piggyback 100 mL (ZOMETA) 4 mg, INTRAVENOUS, Administer over 15 Minutes, ONCE, 1 dose, On Thu09/10/21 at 1030, Hazardous Potential Reproductive Risk Drug: Use appropriate PPE. New Bag/Syringe/Bottl e 09/10/2021 10:23 AM EDT 4 mg Inactive Administered Medications - up to 3 most recent administrations Medication Order MAR Action Action Date Dose Rate Site fulvestrant 500 mg injection (FASLODEX) 500 mg, INTRAMUSCULAR, ONCE, 1 dose, On Thu10/08/21 at 1500, Hazardous Chemotherapy Drug: Use appropriate PPE. Refrigerate. Given 10/08/2021 2:57 PM EDT 500 mg Buttocks, Left Inactive Administered Medications - up to 3 most recent administrations Medication Order MAR Action Action Date Dose Rate Site fulvestrant 500 mg injection (FASLODEX) 500 mg, INTRAMUSCULAR, ONCE, 1 dose, On Thu12/04/21 at 1000, Hazardous Chemotherapy Drug: Use appropriate PPE. Refrigerate. Given 12/04/2021 9:57 AM EDT 500 mg Buttocks, Left zoledronic bv-bftwhvcw-4.9NaCl 4 mg iv piggyback 100 mL (ZOMETA) 4 mg, INTRAVENOUS, Administer over 15 Minutes, ONCE, 1 dose, On Thu12/04/21 at 1030, Hazardous Potential Reproductive Risk Drug: Use appropriate PPE. New Bag/Syringe/Bottl e 12/04/2021 10:30 AM EDT 4 mg Inactive Administered Medications - up to 3 most recent administrations Medication Order MAR Action Action Date Dose Rate Site fulvestrant 500 mg injection (FASLODEX) 500 mg, INTRAMUSCULAR, ONCE, 1 dose, On Thu01/08/22 at 1030, Hazardous Chemotherapy Drug: Use appropriate PPE. Refrigerate. Given 01/08/2022 10:27 AM EDT 500 mg Buttocks, Left Active Administered Medications - up to 3 most recent administrations Medication Order MAR Action Action Date Dose Rate Site PHENYLephrine 2.5 % 1 Drop (AK-DILATE, ERA-SYNEPHRINE) 1 Drop, BOTH EYES, DIRECTED, Starting on Thu01/24/22 at 0900, Until Thu01/24/22 at 2058, Administer for dilation PROTECT FROM LIGHT Given 01/24/2022 9:00 AM EDT 1 Drop proparacaine 0.5 % 1 Drop (ALCAINE) 1 Drop, BOTH EYES, DIRECTED, Starting on Thu01/24/22 at 0900, Until Thu01/24/22 at 2058, Administer for pneumo tonometry, tonopen tonometry, or pachymetry. In the event of a proparacaine shortage, administer tetracaine 0.5% ophthalmic drops 1 drop in the left eye as directed for pneumo tonometry, tonopen tonometry, or pachymetry Given 01/24/2022 9:00 AM EDT 1 Drop tropicamide 1 % 1 Drop (MYDRIACYL) 1 Drop, BOTH EYES, DIRECTED, Starting on Thu01/24/22 at 0900, Until Thu01/24/22 at 2059, Administer for dilation Given 01/24/2022 9:00 AM EDT 1 Drop Inactive Administered Medications - up to 3 most recent administrations Medication Order MAR Action Action Date Dose Rate Site fulvestrant 500 mg injection (FASLODEX) 500 mg, INTRAMUSCULAR, ONCE, 1 dose, On Thu02/12/22 at 1100, Hazardous Chemotherapy Drug: Use appropriate PPE. Refrigerate. Given 02/12/2022 10:49 AM EST 500 mg Buttocks, Left Inactive Administered Medications - up to 3 most recent administrations Medication Order MAR Action Action Date Dose Rate Site zoledronic fj-sbpxannt-2.9NaCl 4 mg iv piggyback 100 mL (ZOMETA) 4 mg, INTRAVENOUS, Administer over 15 Minutes, ONCE, 1 dose, On Thu02/26/22 at 1500, Hazardous Potential Reproductive Risk Drug: Use appropriate PPE. New Bag/Syringe/Bottle 02/26/2022 2:58 PM EST 4 mg Inactive Administered Medications - up to 3 most recent administrations Medication Order MAR Action Action Dose Rate Site fulvestrant 500 mg injection (FASLODEX) 500 mg, INTRAMUSCULAR, ONCE, 1 dose, On Thu03/12/22 at 1200, Hazardous Chemotherapy Drug: Use appropriate PPE. Refrigerate. Given 03/12/2022 12:14 PM EST 500 mg Buttocks, Left Inactive Administered Medications - up to 3 most recent administrations Medication Order MAR Action Action Date Dose Rate Site proparacaine 0.5 % 1 Drop (ALCAINE) 1 Drop, BOTH EYES, DIRECTED, Starting on Thu03/21/22 at 1630, Until Thu03/22/22 at 0429, Administer for pneumo tonometry, tonopen tonometry, or pachymetry. In the event of a proparacaine shortage, administer tetracaine 0.5% ophthalmic drops 1 drop in the left eye as directed for pneumo tonometry, tonopen tonometry, or pachymetry Given 03/21/2022 4:16 PM EST 1 Drop Inactive Administered Medications - up to 3 most recent administrations Medication Order MAR Action Action Date Dose Rate Site fulvestrant 500 mg injection (FASLODEX) 500 mg, INTRAMUSCULAR, ONCE, 1 dose, On Thu04/09/22 at 1100, Hazardous Chemotherapy Drug: Use appropriate PPE. Refrigerate. Given 04/09/2022 11:19 AM EST 500 mg Buttocks, Left Inactive Administered Medications - up to 3 most recent administrations Medication Order MAR Action Action Date Dose Rate Site fulvestrant 500 mg injection (FASLODEX) 500 mg, INTRAMUSCULAR, ONCE, 1 dose, On Thu05/07/22 at 1200, Hazardous Chemotherapy Drug: Use appropriate PPE. Refrigerate. Given 05/07/2022 11:55 AM EST 500 mg Buttocks, Left Inactive Administered Medications - up to 3 most recent administrations Medication Order MAR Action Action Date Dose Rate Site zoledronic wk-cawpolry-2.9NaCl 4 mg iv piggyback 100 mL (ZOMETA) 4 mg, INTRAVENOUS, Administer over 15 Minutes, ONCE, 1 dose, On Thu05/21/22 at 1600, Hazardous Potential Reproductive Risk Drug: Use appropriate PPE. New Bag/Syringe/Bottle 05/21/2022 3:45 PM EST 4 mg Inactive Administered Medications - up to 3 most recent administrations Medication Order MAR Action Action Date Dose Rate Site fulvestrant 500 mg injection (FASLODEX) 500 mg, INTRAMUSCULAR, ONCE, 1 dose, On Thu06/04/22 at 0930, Hazardous Chemotherapy Drug: Use appropriate PPE. Refrigerate. Given 06/04/2022 9:39 AM EDT 500 mg Buttocks, Left Inactive Administered Medications - up to 3 most recent administrations Medication Order MAR Action Action Date Dose Rate Site fulvestrant 500 mg injection (FASLODEX) 500 mg, INTRAMUSCULAR, ONCE, 1 dose, On Thu07/02/22 at 1100, Hazardous Chemotherapy Drug: Use appropriate PPE. Refrigerate. Given 07/02/2022 11:16 AM EDT 500 mg Buttocks, Left Inactive Administered Medications - up to 3 most recent administrations Medication Order MAR Action Action Date Dose Rate Site fulvestrant 500 mg injection (FASLODEX) 500 mg, INTRAMUSCULAR, ONCE, 1 dose, On Thu07/30/22 at 1000, Hazardous Chemotherapy Drug: Use appropriate PPE. Refrigerate. Given 07/30/2022 9:57 AM EDT 500 mg Buttocks, Left Inactive Administered Medications - up to 3 most recent administrations Medication Order MAR Action Action Date Dose Rate Site fulvestrant 500 mg injection (FASLODEX) 500 mg, INTRAMUSCULAR, ONCE, 1 dose, On Thu08/27/22 at 1000, Hazardous Chemotherapy Drug: Use appropriate PPE. Refrigerate. Given 08/27/2022 10:15 AM EDT 500 mg Buttocks, Left Inactive Administered Medications - up to 3 most recent administrations Medication Order MAR Action Action Date Dose Rate Site fulvestrant 500 mg injection (FASLODEX) 500 mg, INTRAMUSCULAR, ONCE, 1 dose, On Sunita 09/25/22 at 1000, Hazardous Chemotherapy Drug: Use appropriate PPE. Refrigerate. Given 09/25/2022 10:08 AM EDT 500 mg Buttocks, Left Inactive Administered Medications - up to 3 most recent administrations Medication Order MAR Action Action Date Dose Rate Site fulvestrant 500 mg injection (FASLODEX) 500 mg, INTRAMUSCULAR, ONCE, 1 dose, On Thu10/27/22 at 1200, Hazardous Chemotherapy Drug: Use appropriate PPE. Refrigerate. Given 10/27/2022 11:48 AM EDT 500 mg Buttocks, Left Inactive Administered Medications - up to 3 most recent administrations Medication Order MAR Action Action Date Dose Rate Site zoledronic ol-waduhfjm-2.9NaCl 4 mg iv piggyback 100 mL (ZOMETA) 4 mg, INTRAVENOUS, Administer over 15 Minutes, ONCE, 1 dose, On Thu11/03/22 at 1430, Hazardous Potential Reproductive Risk Drug: Use appropriate PPE. New Bag/Syringe/Bottle 11/03/2022 2:30 PM EDT 4 mg Inactive Administered Medications - up to 3 most recent administrations Medication Order MAR Action Action Date Dose Rate Site fulvestrant 500 mg injection (FASLODEX) 500 mg, INTRAMUSCULAR, ONCE, 1 dose, On Thu11/26/22 at 1030, Hazardous Chemotherapy Drug: Use appropriate PPE. Refrigerate. Given 11/26/2022 10:48 AM EDT 500 mg Buttocks, Left Inactive Administered Medications - up to 3 most recent administrations Medication Order MAR Action Action Date Dose Rate Site fulvestrant 500 mg injection (FASLODEX) 500 mg, INTRAMUSCULAR, ONCE, 1 dose, On 01/26/23 at 1400, Hazardous Chemotherapy Drug: Use appropriate PPE. Refrigerate. Given 01/26/2023 2:53 PM EST 500 mg Buttocks, Right zoledronic iu-lmxhddfe-4.9NaCl 4 mg iv piggyback 100 mL (ZOMETA) 4 mg, INTRAVENOUS, Administer over 15 Minutes, ONCE, 1 dose, On Thu01/26/23 at 1500, Hazardous Potential Reproductive Risk Drug: Use appropriate PPE. New Bag/Syringe/Bottl e 01/26/2023 3:00 PM EST 4 mg Inactive Administered Medications - up to 3 most recent administrations Medication Order MAR Action Action Date Dose Rate Site fulvestrant 500 mg injection (FASLODEX) 500 mg, INTRAMUSCULAR, ONCE, 1 dose, On Thu02/23/23 at 1030, Hazardous Chemotherapy Drug: Use appropriate PPE. Refrigerate. Given 02/23/2023 10:21 AM EST 500 mg Buttocks, Left Reason for Referral Specialty Diagnoses / Procedures Referred By [facility] Referred To Contact CT IMAGING Diagnoses Bone metastases (HCC) Liver metastasis (HCC) Malignant neoplasm of upper-outer quadrant of right breast in female, estrogen receptor positive (HCC) Procedures CT ABD/PEL WO IVCON CT ABD & PELVIS W/O CONTRAST Stephania Hayes MD [address] [place] [address] Ct Imaging Referral ID Status Reason Start Date Expiration Date V isits Requested Visits Authorized [id number] Closed Auto-Generate d Referral 06/24/2021 04/25/2022 1 1 Specialty Diagnoses / Procedures Referred By [facility] Referred To Contact CT IMAGING Diagnoses Bone metastases (HCC) Liver metastasis (HCC) Malignant neoplasm of upper-outer quadrant of right breast in female, estrogen receptor positive (HCC) Procedures CT CHEST WO IVCON CAT SCAN OF CHEST Stephania Hayes MD [address] [place] [id number] Imaging Referral ID Status Reason Start Date Expiration Date V isits Requested Visits Authorized [id number] Closed Auto-Generate d Referral 06/24/2021 04/25/2022 1 1 Specialty Diagnoses / Procedures Referred By [facility] Referred To Contact CT IMAGING Diagnoses Malignant neoplasm of upper-outer quadrant of right breast in female, estrogen receptor positive (HCC) Bone metastases (HCC) Malignant neoplasm of breast in female, estrogen receptor positive, unspecified laterality, unspecified site of breast (HCC) Procedures CT ABD/PEL WO IVCON CT ABD & PELVIS W/O CONTRAST Sandra Hogue, DIGITIZER.SPEECH TEACHER [address] [place] [address] Ct Imaging Referral ID Status Reason Start Date Expiration Date V isits Requested Visits Authorized [id number] Closed Auto-Generate d Referral 12/04/2021 01/03/2023 1 1 Specialty Diagnoses / Procedures Referred By [facility] Referred To Contact CT IMAGING Diagnoses Malignant neoplasm of upper-outer quadrant of right breast in female, estrogen receptor positive (HCC) Bone metastases (HCC) Malignant neoplasm of breast in female, estrogen receptor positive, unspecified laterality, unspecified site of breast (HCC) Procedures CT CHEST WO IVCON DIAGNOSTIC COMPUTED TOMOGRAPHY THORAX W/O CNTRST Sandra Hogue, DIGITIZER.SPEECH TEACHER [address] [place] [address] Ct Imaging Referral ID Status Reason Start Date Expiration Date V isits Requested Visits Authorized [id number] Closed Auto-Generate d Referral 12/04/2021 01/03/2023 1 1 Specialty Diagnoses / Procedures Referred By [facility] Referred To Contact CT IMAGING Diagnoses Malignant neoplasm of breast in female, estrogen receptor positive, unspecified laterality, unspecified site of breast (HCC) Procedures CT ABD/PEL WO IVCON CT ABD & PELVIS W/[place] [address] [place] [address] Ct Imaging [place] [address] Referral ID Status Reason Start Date Expiration Date Visits Requested Visits Authorized [id number] Authorized Auto-Generat ed Referral 10/07/2023 11/05/2024 1 1 Specialty Diagnoses / Procedures Referred By [facility] Referred To Contact CT IMAGING Diagnoses Malignant neoplasm of breast in female, estrogen receptor positive, unspecified laterality, unspecified site of breast (HCC) Procedures CT CHEST WO IVCON DIAGNOSTIC COMPUTED TOMOGRAPHY THORAX W/[place] [address] [place] [address] [place] [address] Referral ID Status Reason Start Date Expiration Date Visits Requested Visits Authorized [id number] Authorized Auto-Generat ed Referral 10/07/2023 11/05/2024 1 1 Specialty Diagnoses / Procedures Referred By [facility] Referred To Contact Radiation Oncology Diagnoses Pleural effusion, malignant Malignant neoplasm metastatic to bone (HCC) Procedures RAD/ONC CONSULT OFFICE/OUTPATIENT NEW HIGH MDM 60 [place] [address] [place] [address] Referral ID Status Reason Start Date Expiration Date Visits Requested Visits Authorized [id number] Authorized PCP Requested Referral 01/27/2024 01/26/2025 1 1 Specialty Diagnoses / Procedures Referred By [facility] Referred To Contact Diagnoses Malignant neoplasm metastatic to bone (HCC) Procedures CT SIM PLANNING RADIATION ONCOLOGY THER RAD SIMULAJ-AIDED FIELD SETTING COMPLEX Luciana Florez MD [address] [place] [address] Referral ID Status Reason Start Date Expiration Date Visits Requested Visits Authorized [id number] New Request PCP Requested Referral 05/15/2024 1 1 Referral ID Status Reason Start Date Expiration Date Visits Requested Visits Authorized [id number] Authorized Auto-Generat ed Referral 04/21/2024 05/21/2025 1 1 Referral ID Status Reason Start Date Expiration Date Visits Requested Visits Authorized [id number] Authorized Auto-Generat ed Referral 04/21/2024 05/21/2025 1 1 Chief Complaint and Reason for Visit Chief Complaint 1 y fu BRUIT Reason for Visit Bruit of left caroti d artery Premature atrial contractions Premature ventricular contraction SVT (supraventricular tachycardia) Essential (primary) hypertension Hyperlipidemia Chief Complaint 1 y fu BRUIT RIGHT LEG PAIN Reason for Visit Bruit of left caroti d artery Premature atrial contractions Premature ventricular contraction SVT (supraventricular tachycardia) Essential (primary) hypertension Hyperlipidemia Chief Complaint Admit Date ACUTE ON CHRONIC ANEMIA September 07, 2024 6:44pm Reason for Visit Admit Date Anemia requiring transfusions September 07, 2024 6:44pm History of breast cancer September 07, 2024 6:44pm Weakness September 07, 2024 6:44 pm Chief Complaint Shortness of breath Additional Source Comments INFORMATION SOURCE (unrecogn ized section and content) DATE CREATED AUTHOR 10/22/2018 [facility] DATE CREATED AUTHOR AUTHOR'S ORGANIZ ATION 02/06/2019 [facility] DATE CREATED AUTHOR AUTHOR'S ORGANIZ ATION 12/25/2021 [facility] DATE CREATED AUTHOR AUTHOR'S ORGANIZ ATION 01/20/2022 [facility] DATE CREATED AUTHOR AUTHOR'S ORGANIZ ATION 01/25/2022 [facility] DATE CREATED AUTHOR AUTHOR'S ORGANIZ ATION 02/28/2022 [facility] DATE CREATED AUTHOR AUTHOR'S ORGANIZ ATION 10/10/2022 [facility] DATE CREATED AUTHOR AUTHOR'S ORGANIZ ATION 10/24/2022 [facility] DATE CREATED AUTHOR AUTHOR'S ORGANIZ ATION 04/24/2023 [facility] DATE CREATED AUTHOR AUTHOR'S ORGANIZ ATION 08/01/2024 [facility] DATE CREATED AUTHOR AUTHOR'S ORGANIZ ATION 08/19/2024 [facility] DATE CREATED AUTHOR AUTHOR'S ORGANIZ ATION 08/30/2024 [facility] DATE CREATED AUTHOR AUTHOR'S ORGANIZ ATION 09/02/2024 [facility] DATE CREATED AUTHOR AUTHOR'S ORGANIZ ATION 09/06/2024 [facility] Source Comments (unrecognize d section and content) In the event this informatio n is protected by the Federal Confidentiality of Alcohol and Drug Abuse Patient Records regulations: The Federal rules restrict any use of the information to criminally investigate or prosecute any alcohol or drug abuse patient.[facility] the event this information is protected by the Federal Confidentiality of Alcohol and Drug Abuse Patient Records regulations: The Federal rules restrict any use of the information to criminally investigate or prosecute any alcohol or drug abuse patient.[facility] CenterIn the event this information is protected by the Federal Confidentiality of Alcohol and Drug Abuse Patient Records regulations: The Federal rules restrict any use of the information to criminally investigate or prosecute any alcohol or drug abuse patient.[facility] CenterIn the event this information is protected by the Federal Confidentiality of Alcohol and Drug Abuse Patient Records regulations: The Federal rules restrict any use of the information to criminally investigate or prosecute any alcohol or drug abuse patient.[facility] CenterIn the event this information is protected by the Federal Confidentiality of Alcohol and Drug Abuse Patient Records regulations: The Federal rules restrict any use of the information to criminally investigate or prosecute any alcohol or drug abuse patient.[facility] CenterIn the event this information is protected by the Federal Confidentiality of Alcohol and Drug Abuse Patient Records regulations: The Federal rules restrict any use of the information to criminally investigate or prosecute any alcohol or drug abuse patient.[facility] the event this information is protected by the Federal Confidentiality of Alcohol and Drug Abuse Patient Records regulations: The Federal rules restrict any use of the information to criminally investigate or prosecute any alcohol or drug abuse patient.[facility] Center[facility] the event this information is protected by the Federal Confidentiality of Alcohol and Drug Abuse Patient Records regulations: The Federal rules restrict any use of the information to criminally investigate or prosecute any alcohol or drug abuse patient.[facility] CenterIn the event this information is protected by the Federal Confidentiality of Alcohol and Drug Abuse Patient Records regulations: The Federal rules restrict any use of the information to criminally investigate or prosecute any alcohol or drug abuse patient.[facility] CenterIn the event this information is protected by the Federal Confidentiality of Alcohol and Drug Abuse Patient Records regulations: The Federal rules restrict any use of the information to criminally investigate or prosecute any alcohol or drug abuse patient.[facility] CenterIn the event this information is protected by the Federal Confidentiality of Alcohol and Drug Abuse Patient Records regulations: The Federal rules restrict any use of the information to criminally investigate or prosecute any alcohol or drug abuse patient.[facility] CenterIn the event this information is protected by the Federal Confidentiality of Alcohol and Drug Abuse Patient Records regulations: The Federal rules restrict any use of the information to criminally investigate or prosecute any alcohol or drug abuse patient.[facility] CenterIn the event this information is protected by the Federal Confidentiality of Alcohol and Drug Abuse Patient Records regulations: The Federal rules restrict any use of the information to criminally investigate or prosecute any alcohol or drug abuse patient.[facility] CenterIn the event this information is protected by the Federal Confidentiality of Alcohol and Drug Abuse Patient Records regulations: The Federal rules restrict any use of the information to criminally investigate or prosecute any alcohol or drug abuse patient.[facility] CenterIn the event this information is protected by the Federal Confidentiality of Alcohol and Drug Abuse Patient Records regulations: The Federal rules restrict any use of the information to criminally investigate or prosecute any alcohol or drug abuse patient.[facility] CenterIn the event this information is protected by the Federal Confidentiality of Alcohol and Drug Abuse Patient Records regulations: The Federal rules restrict any use of the information to criminally investigate or prosecute any alcohol or drug abuse patient.[facility] CenterIn the event this information is protected by the Federal Confidentiality of Alcohol and Drug Abuse Patient Records regulations: The Federal rules restrict any use of the information to criminally investigate or prosecute any alcohol or drug abuse patient.[facility] CenterIn the event this information is protected by the Federal Confidentiality of Alcohol and Drug Abuse Patient Records regulations: The Federal rules restrict any use of the information to criminally investigate or prosecute any alcohol or drug abuse patient.[facility] CenterIn the event this information is protected by the Federal Confidentiality of Alcohol and Drug Abuse Patient Records regulations: The Federal rules restrict any use of the information to criminally investigate or prosecute any alcohol or drug abuse patient.[facility] CenterIn the event this information is protected by the Federal Confidentiality of Alcohol and Drug Abuse Patient Records regulations: The Federal rules restrict any use of the information to criminally investigate or prosecute any alcohol or drug abuse patient.[facility] CenterIn the event this information is protected by the Federal Confidentiality of Alcohol and Drug Abuse Patient Records regulations: The Federal rules restrict any use of the information to criminally investigate or prosecute any alcohol or drug abuse patient.[facility] CenterIn the event this information is protected by the Federal Confidentiality of Alcohol and Drug Abuse Patient Records regulations: The Federal rules restrict any use of the information to criminally investigate or prosecute any alcohol or drug abuse patient.[facility] CenterIn the event this information is protected by the Federal Confidentiality of Alcohol and Drug Abuse Patient Records regulations: The Federal rules restrict any use of the information to criminally investigate or prosecute any alcohol or drug abuse patient.[facility] CenterIn the event this information is protected by the Federal Confidentiality of Alcohol and Drug Abuse Patient Records regulations: The Federal rules restrict any use of the information to criminally investigate or prosecute any alcohol or drug abuse patient.[facility] CenterIn the event this information is protected by the Federal Confidentiality of Alcohol and Drug Abuse Patient Records regulations: The Federal rules restrict any use of the information to criminally investigate or prosecute any alcohol or drug abuse patient.[facility] CenterIn the event this information is protected by the Federal Confidentiality of Alcohol and Drug Abuse Patient Records regulations: The Federal rules restrict any use of the information to criminally investigate or prosecute any alcohol or drug abuse patient.[facility] CenterIn the event this information is protected by the Federal Confidentiality of Alcohol and Drug Abuse Patient Records regulations: The Federal rules restrict any use of the information to criminally investigate or prosecute any alcohol or drug abuse patient.[facility] CenterIn the event this information is protected by the Federal Confidentiality of Alcohol and Drug Abuse Patient Records regulations: The Federal rules restrict any use of the information to criminally investigate or prosecute any alcohol or drug abuse patient.[facility] CenterIn the event this information is protected by the Federal Confidentiality of Alcohol and Drug Abuse Patient Records regulations: The Federal rules restrict any use of the information to criminally investigate or prosecute any alcohol or drug abuse patient.[facility] CenterIn the event this information is protected by the Federal Confidentiality of Alcohol and Drug Abuse Patient Records regulations: The Federal rules restrict any use of the information to criminally investigate or prosecute any alcohol or drug abuse patient.[facility] CenterIn the event this information is protected by the Federal Confidentiality of Alcohol and Drug Abuse Patient Records regulations: The Federal rules restrict any use of the information to criminally investigate or prosecute any alcohol or drug abuse patient.[facility] CenterIn the event this information is protected by the Federal Confidentiality of Alcohol and Drug Abuse Patient Records regulations: The Federal rules restrict any use of the information to criminally investigate or prosecute any alcohol or drug abuse patient.[facility] CenterIn the event this information is protected by the Federal Confidentiality of Alcohol and Drug Abuse Patient Records regulations: The Federal rules restrict any use of the information to criminally investigate or prosecute any alcohol or drug abuse patient.[facility] CenterIn the event this information is protected by the Federal Confidentiality of Alcohol and Drug Abuse Patient Records regulations: The Federal rules restrict any use of the information to criminally investigate or prosecute any alcohol or drug abuse patient.[facility] CenterIn the event this information is protected by the Federal Confidentiality of Alcohol and Drug Abuse Patient Records regulations: The Federal rules restrict any use of the information to criminally investigate or prosecute any alcohol or drug abuse patient.[facility] CenterIn the event this information is protected by the Federal Confidentiality of Alcohol and Drug Abuse Patient Records regulations: The Federal rules restrict any use of the information to criminally investigate or prosecute any alcohol or drug abuse patient.[facility] CenterIn the event this information is protected by the Federal Confidentiality of Alcohol and Drug Abuse Patient Records regulations: The Federal rules restrict any use of the information to criminally investigate or prosecute any alcohol or drug abuse patient.[facility] CenterIn the event this information is protected by the Federal Confidentiality of Alcohol and Drug Abuse Patient Records regulations: The Federal rules restrict any use of the information to criminally investigate or prosecute any alcohol or drug abuse patient.[facility] CenterIn the event this information is protected by the Federal Confidentiality of Alcohol and Drug Abuse Patient Records regulations: The Federal rules restrict any use of the information to criminally investigate or prosecute any alcohol or drug abuse patient.[facility] CenterIn the event this information is protected by the Federal Confidentiality of Alcohol and Drug Abuse Patient Records regulations: The Federal rules restrict any use of the information to criminally investigate or prosecute any alcohol or drug abuse patient.[facility] CenterIn the event this information is protected by the Federal Confidentiality of Alcohol and Drug Abuse Patient Records regulations: The Federal rules restrict any use of the information to criminally investigate or prosecute any alcohol or drug abuse patient.[facility] CenterIn the event this information is protected by the Federal Confidentiality of Alcohol and Drug Abuse Patient Records regulations: The Federal rules restrict any use of the information to criminally investigate or prosecute any alcohol or drug abuse patient.[facility] CenterIn the event this information is protected by the Federal Confidentiality of Alcohol and Drug Abuse Patient Records regulations: The Federal rules restrict any use of the information to criminally investigate or prosecute any alcohol or drug abuse patient.[facility] CenterIn the event this information is protected by the Federal Confidentiality of Alcohol and Drug Abuse Patient Records regulations: The Federal rules restrict any use of the information to criminally investigate or prosecute any alcohol or drug abuse patient.[facility] CenterIn the event this information is protected by the Federal Confidentiality of Alcohol and Drug Abuse Patient Records regulations: The Federal rules restrict any use of the information to criminally investigate or prosecute any alcohol or drug abuse patient.[facility] CenterIn the event this information is protected by the Federal Confidentiality of Alcohol and Drug Abuse Patient Records regulations: The Federal rules restrict any use of the information to criminally investigate or prosecute any alcohol or drug abuse patient.[facility] CenterIn the event this information is protected by the Federal Confidentiality of Alcohol and Drug Abuse Patient Records regulations: The Federal rules restrict any use of the information to criminally investigate or prosecute any alcohol or drug abuse patient.[facility] CenterIn the event this information is protected by the Federal Confidentiality of Alcohol and Drug Abuse Patient Records regulations: The Federal rules restrict any use of the information to criminally investigate or prosecute any alcohol or drug abuse patient.[facility] CenterIn the event this information is protected by the Federal Confidentiality of Alcohol and Drug Abuse Patient Records regulations: The Federal rules restrict any use of the information to criminally investigate or prosecute any alcohol or drug abuse patient.[facility] CenterIn the event this information is protected by the Federal Confidentiality of Alcohol and Drug Abuse Patient Records regulations: The Federal rules restrict any use of the information to criminally investigate or prosecute any alcohol or drug abuse patient.[facility] CenterIn the event this information is protected by the Federal Confidentiality of Alcohol and Drug Abuse Patient Records regulations: The Federal rules restrict any use of the information to criminally investigate or prosecute any alcohol or drug abuse patient.[facility] CenterIn the event this information is protected by the Federal Confidentiality of Alcohol and Drug Abuse Patient Records regulations: The Federal rules restrict any use of the information to criminally investigate or prosecute any alcohol or drug abuse patient.[facility] CenterIn the event this information is protected by the Federal Confidentiality of Alcohol and Drug Abuse Patient Records regulations: The Federal rules restrict any use of the information to criminally investigate or prosecute any alcohol or drug abuse patient.[facility] CenterIn the event this information is protected by the Federal Confidentiality of Alcohol and Drug Abuse Patient Records regulations: The Federal rules restrict any use of the information to criminally investigate or prosecute any alcohol or drug abuse patient.[facility] CenterIn the event this information is protected by the Federal Confidentiality of Alcohol and Drug Abuse Patient Records regulations: The Federal rules restrict any use of the information to criminally investigate or prosecute any alcohol or drug abuse patient.[facility] CenterIn the event this information is protected by the Federal Confidentiality of Alcohol and Drug Abuse Patient Records regulations: The Federal rules restrict any use of the information to criminally investigate or prosecute any alcohol or drug abuse patient.[facility] the event this information is protected by the Federal Confidentiality of Alcohol and Drug Abuse Patient Records regulations: The Federal rules restrict any use of the information to criminally investigate or prosecute any alcohol or drug abuse patient.[facility] the event this information is protected by the Federal Confidentiality of Alcohol and Drug Abuse Patient Records regulations: The Federal rules restrict any use of the information to criminally investigate or prosecute any alcohol or drug abuse patient.[facility] CenterIn the event this information is protected by the Federal Confidentiality of Alcohol and Drug Abuse Patient Records regulations: The Federal rules restrict any use of the information to criminally investigate or prosecute any alcohol or drug abuse patient.[facility] CenterIn the event this information is protected by the Federal Confidentiality of Alcohol and Drug Abuse Patient Records regulations: The Federal rules restrict any use of the information to criminally investigate or prosecute any alcohol or drug abuse patient.[facility] CenterIn the event this information is protected by the Federal Confidentiality of Alcohol and Drug Abuse Patient Records regulations: The Federal rules restrict any use of the information to criminally investigate or prosecute any alcohol or drug abuse patient.[facility] CenterIn the event this information is protected by the Federal Confidentiality of Alcohol and Drug Abuse Patient Records regulations: The Federal rules restrict any use of the information to criminally investigate or prosecute any alcohol or drug abuse patient.[facility] CenterIn the event this information is protected by the Federal Confidentiality of Alcohol and Drug Abuse Patient Records regulations: The Federal rules restrict any use of the information to criminally investigate or prosecute any alcohol or drug abuse patient.[facility] CenterIn the event this information is protected by the Federal Confidentiality of Alcohol and Drug Abuse Patient Records regulations: The Federal rules restrict any use of the information to criminally investigate or prosecute any alcohol or drug abuse patient.[facility] CenterIn the event this information is protected by the Federal Confidentiality of Alcohol and Drug Abuse Patient Records regulations: The Federal rules restrict any use of the information to criminally investigate or prosecute any alcohol or drug abuse patient.[facility] CenterIn the event this information is protected by the Federal Confidentiality of Alcohol and Drug Abuse Patient Records regulations: The Federal rules restrict any use of the information to criminally investigate or prosecute any alcohol or drug abuse patient.[facility] CenterIn the event this information is protected by the Federal Confidentiality of Alcohol and Drug Abuse Patient Records regulations: The Federal rules restrict any use of the information to criminally investigate or prosecute any alcohol or drug abuse patient.[facility] CenterIn the event this information is protected by the Federal Confidentiality of Alcohol and Drug Abuse Patient Records regulations: The Federal rules restrict any use of the information to criminally investigate or prosecute any alcohol or drug abuse patient.[facility] CenterIn the event this information is protected by the Federal Confidentiality of Alcohol and Drug Abuse Patient Records regulations: The Federal rules restrict any use of the information to criminally investigate or prosecute any alcohol or drug abuse patient.[facility] CenterIn the event this information is protected by the Federal Confidentiality of Alcohol and Drug Abuse Patient Records regulations: The Federal rules restrict any use of the information to criminally investigate or prosecute any alcohol or drug abuse patient.[facility] CenterIn the event this information is protected by the Federal Confidentiality of Alcohol and Drug Abuse Patient Records regulations: The Federal rules restrict any use of the information to criminally investigate or prosecute any alcohol or drug abuse patient.[facility] CenterIn the event this information is protected by the Federal Confidentiality of Alcohol and Drug Abuse Patient Records regulations: The Federal rules restrict any use of the information to criminally investigate or prosecute any alcohol or drug abuse patient.[facility] CenterIn the event this information is protected by the Federal Confidentiality of Alcohol and Drug Abuse Patient Records regulations: The Federal rules restrict any use of the information to criminally investigate or prosecute any alcohol or drug abuse patient.[facility] CenterIn the event this information is protected by the Federal Confidentiality of Alcohol and Drug Abuse Patient Records regulations: The Federal rules restrict any use of the information to criminally investigate or prosecute any alcohol or drug abuse patient.[facility] CenterIn the event this information is protected by the Federal Confidentiality of Alcohol and Drug Abuse Patient Records regulations: The Federal rules restrict any use of the information to criminally investigate or prosecute any alcohol or drug abuse patient.[facility] CenterIn the event this information is protected by the Federal Confidentiality of Alcohol and Drug Abuse Patient Records regulations: The Federal rules restrict any use of the information to criminally investigate or prosecute any alcohol or drug abuse patient.[facility] CenterIn the event this information is protected by the Federal Confidentiality of Alcohol and Drug Abuse Patient Records regulations: The Federal rules restrict any use of the information to criminally investigate or prosecute any alcohol or drug abuse patient.[facility] CenterIn the event this information is protected by the Federal Confidentiality of Alcohol and Drug Abuse Patient Records regulations: The Federal rules restrict any use of the information to criminally investigate or prosecute any alcohol or drug abuse patient.[facility] CenterIn the event this information is protected by the Federal Confidentiality of Alcohol and Drug Abuse Patient Records regulations: The Federal rules restrict any use of the information to criminally investigate or prosecute any alcohol or drug abuse patient.[facility] CenterIn the event this information is protected by the Federal Confidentiality of Alcohol and Drug Abuse Patient Records regulations: The Federal rules restrict any use of the information to criminally investigate or prosecute any alcohol or drug abuse patient.[facility] CenterIn the event this information is protected by the Federal Confidentiality of Alcohol and Drug Abuse Patient Records regulations: The Federal rules restrict any use of the information to criminally investigate or prosecute any alcohol or drug abuse patient.[facility] CenterIn the event this information is protected by the Federal Confidentiality of Alcohol and Drug Abuse Patient Records regulations: The Federal rules restrict any use of the information to criminally investigate or prosecute any alcohol or drug abuse patient.[facility] CenterIn the event this information is protected by the Federal Confidentiality of Alcohol and Drug Abuse Patient Records regulations: The Federal rules restrict any use of the information to criminally investigate or prosecute any alcohol or drug abuse patient.[facility] CenterIn the event this information is protected by the Federal Confidentiality of Alcohol and Drug Abuse Patient Records regulations: The Federal rules restrict any use of the information to criminally investigate or prosecute any alcohol or drug abuse patient.[facility] CenterIn the event this information is protected by the Federal Confidentiality of Alcohol and Drug Abuse Patient Records regulations: The Federal rules restrict any use of the information to criminally investigate or prosecute any alcohol or drug abuse patient.[facility] CenterIn the event this information is protected by the Federal Confidentiality of Alcohol and Drug Abuse Patient Records regulations: The Federal rules restrict any use of the information to criminally investigate or prosecute any alcohol or drug abuse patient.[facility] CenterIn the event this information is protected by the Federal Confidentiality of Alcohol and Drug Abuse Patient Records regulations: The Federal rules restrict any use of the information to criminally investigate or prosecute any alcohol or drug abuse patient.[facility] CenterIn the event this information is protected by the Federal Confidentiality of Alcohol and Drug Abuse Patient Records regulations: The Federal rules restrict any use of the information to criminally investigate or prosecute any alcohol or drug abuse patient.[facility] CenterIn the event this information is protected by the Federal Confidentiality of Alcohol and Drug Abuse Patient Records regulations: The Federal rules restrict any use of the information to criminally investigate or prosecute any alcohol or drug abuse patient.[facility] CenterIn the event this information is protected by the Federal Confidentiality of Alcohol and Drug Abuse Patient Records regulations: The Federal rules restrict any use of the information to criminally investigate or prosecute any alcohol or drug abuse patient.[facility] CenterIn the event this information is protected by the Federal Confidentiality of Alcohol and Drug Abuse Patient Records regulations: The Federal rules restrict any use of the information to criminally investigate or prosecute any alcohol or drug abuse patient.[facility] CenterIn the event this information is protected by the Federal Confidentiality of Alcohol and Drug Abuse Patient Records regulations: The Federal rules restrict any use of the information to criminally investigate or prosecute any alcohol or drug abuse patient.[facility] CenterIn the event this information is protected by the Federal Confidentiality of Alcohol and Drug Abuse Patient Records regulations: The Federal rules restrict any use of the information to criminally investigate or prosecute any alcohol or drug abuse patient.[facility] CenterIn the event this information is protected by the Federal Confidentiality of Alcohol and Drug Abuse Patient Records regulations: The Federal rules restrict any use of the information to criminally investigate or prosecute any alcohol or drug abuse patient.[facility] CenterIn the event this information is protected by the Federal Confidentiality of Alcohol and Drug Abuse Patient Records regulations: The Federal rules restrict any use of the information to criminally investigate or prosecute any alcohol or drug abuse patient.[facility] CenterIn the event this information is protected by the Federal Confidentiality of Alcohol and Drug Abuse Patient Records regulations: The Federal rules restrict any use of the information to criminally investigate or prosecute any alcohol or drug abuse patient.[facility] CenterIn the event this information is protected by the Federal Confidentiality of Alcohol and Drug Abuse Patient Records regulations: The Federal rules restrict any use of the information to criminally investigate or prosecute any alcohol or drug abuse patient.[facility] CenterIn the event this information is protected by the Federal Confidentiality of Alcohol and Drug Abuse Patient Records regulations: The Federal rules restrict any use of the information to criminally investigate or prosecute any alcohol or drug abuse patient.[facility] CenterIn the event this information is protected by the Federal Confidentiality of Alcohol and Drug Abuse Patient Records regulations: The Federal rules restrict any use of the information to criminally investigate or prosecute any alcohol or drug abuse patient.[facility] CenterIn the event this information is protected by the Federal Confidentiality of Alcohol and Drug Abuse Patient Records regulations: The Federal rules restrict any use of the information to criminally investigate or prosecute any alcohol or drug abuse patient.[facility] CenterIn the event this information is protected by the Federal Confidentiality of Alcohol and Drug Abuse Patient Records regulations: The Federal rules restrict any use of the information to criminally investigate or prosecute any alcohol or drug abuse patient.[facility] Reason for Visit (unrecogniz ed section and content) Reason Comments Chemotherapy Treatment Specialty Diagnoses / Procedures Referred By Contac t Referred To Contact Diagnoses Malignant neoplasm of upper-outer quadrant of right breast in female, estrogen receptor positive (HCC) Pleural effusion, malignant Stephania Hayes MD [address] [place] [address] [facility] [address] [place] [address] Referral ID Status Reason Start Date Expiration Date V isits Requested Visits Authorized [id number] Authorized 01/13/2020 04/12/[address] Specialty Diagnoses / Procedures Referred By Contac t Referred To Contact CT IMAGING Diagnoses Bone metastases (HCC) Liver metastasis (HCC) Malignant neoplasm of upper-outer quadrant of right breast in female, estrogen receptor positive (HCC) Procedures CT ABD/PEL WO IVCON CT ABD & PELVIS W/O CONTRAST Stephania Hayes MD [address] [place] [address] Ct Imaging Referral ID Status Reason Start Date Expiration Date V isits Requested Visits Authorized [id number] Closed Auto-Generate d Referral 06/24/2021 04/25/2022 1 1 Reason Comments Established Patient Reason Comments Imm/Inj Specialty Diagnoses / Procedures Referred By Contac t Referred To Contact Diagnoses Malignant neoplasm of upper-outer quadrant of right breast in female, estrogen receptor positive (HCC) Pleural effusion, malignant Stephania Hayes MD [address] [place] [address] [facility] [address] [place] [address] Reason Comments Refill Request Reason Comments Patient Update Reason Comments Non-Chemotherapy Treatment Specialty Diagnoses / Procedures [facility] Referred To Contact Diagnoses Malignant neoplasm of upper-outer quadrant of right breast in female, estrogen receptor positive (HCC) Bone metastases (HCC) Stephania Hayes MD [address] [place] [address] [facility] [address] [place] [address] Referral ID Status Reason Start Date Expiration Date V isits Requested Visits Authorized [id number] Authorized 01/13/2020 04/12/2020 1 1 Reason Onset Date Comments SPP Oral Oncology/hematology - Medication Refill 09/30/2021 Ibrance Specialty Diagnoses / Procedures Referred By Contac t Referred To Contact Diagnoses Malignant neoplasm of upper-outer quadrant of right breast in female, estrogen receptor positive (HCC) Pleural effusion, malignant Stephania Hayes MD [address] [place] [address] [facility] [address] [place] [address] Reason Onset Date Comments SPP Oral Oncology/hematology - Medication Refill 10/25/2021 Ibrance Reason Comments Appointment Appointment Reason Onset Date Comments SPP Oral Oncology/hematology - Medication Refill 12/20/2021 Ibrance 125mg Specialty Diagnoses / Procedures [facility]erred By [facility] Referred To Contact CT IMAGING Diagnoses Malignant neoplasm of upper-outer quadrant of right breast in female, estrogen receptor positive (HCC) Bone metastases (HCC) Malignant neoplasm of breast in female, estrogen receptor positive, unspecified laterality, unspecified site of breast (HCC) Procedures CT ABD/PEL WO IVCON CT ABD & PELVIS W/O CONTRAST Sandra Hogue APRN.[employer] [address] [place] [address] Ct Imaging Referral ID Status Reason Start Date Expiration Date V isits Requested Visits Authorized [id number] Closed Auto-Generate d Referral 12/04/2021 01/03/2023 1 1 Reason Comments Radiology NM Reason Comments Blurred Vision Both Eyes Difficulty Reading Both Eyes Glare Reason Comments Patient Question Reason Comments Blurred Vision Both Eyes Difficulty Reading Both Eyes Glare Halos Both Eyes Reason Onset Date Comments SPP Oral Oncology/hematology - Medication Refill 02/18/2022 Ibrance Reason Comments Subconjunctival Hemorrhage Evaluation Ri ght eye for 1 day Specialty Diagnoses / Procedures Referred By [facility] Referred To Contact Diagnoses Malignant neoplasm of upper-outer quadrant of right breast in female, estrogen receptor positive (HCC) Bone metastases (HCC) Stephania Hayes MD [address] [place] [address] [facility] [address] [place] [address] Reason Comments Established Patient Reason Comments New Patient Evaluation Rfd by Dr. Allen for leg pain & tenderness Reason Comments Blurred Vision Right Eye Difficulty Reading Right Eye Glare Halos Right Eye Post-op Cataract OS Status Post Traditio nal Cataract Surgery with PC IOL - Left eye (03/20/2022) Reason Comments Post-op Cataract OD Status Post Cataract Surgery with Monofocal Intraocular Lens Implant Right Eye (06/23/2022) Post-op Cataract OS Status Post Cataract Surgery with Monofocal Intraocular Lens Implant Left Eye (03/20/2022) Reason Comments Ibrance Approval Reason Comments Imm/Inj faslodex Specialty Diagnoses / Procedures Referred By [facility] Referred To Contact Diagnoses Malignant neoplasm of upper-outer quadrant of right breast in female, estrogen receptor positive (HCC) Pleural effusion, malignant Stephania Hayes MD [address] [place] [id number] [facility] [address] [place] [address] Specialty Diagnoses / Procedures Referred By [facility] Referred To Contact Diagnoses Malignant neoplasm of upper-outer quadrant of right breast in female, estrogen receptor positive (HCC) Bone metastases Stephania Hayes MD [address] [place] [address] [facility] [address] [place] [address] Reason Comments AVS 11/03 Reason Comments AVS 11/26/22 Reason Onset Date Comments Refill Request 12/03/2022 Reason Comments Established Patient OV with test results . Reason Comments Radiology CT Specialty Diagnoses / Procedures Referred By [facility] Referred To Contact CT IMAGING Diagnoses Malignant neoplasm of left female breast, unspecified estrogen receptor status, unspecified site of breast (HCC) Procedures CT ABD/PEL WO IVCON CT ABD & PELVIS [place] [address] [place] [id number] [facility] [place] [address] Referral ID Status Reason Start Date Expiration Date V isits Requested Visits Authorized [id number] Closed Auto-Generate d Referral 04/22/2023 05/21/2024 1 1 Specialty Diagnoses / Procedures Referred By Contac t Referred To Contact CT IMAGING Diagnoses Malignant neoplasm of left female breast, unspecified estrogen receptor status, unspecified site of breast (HCC) Procedures CT ABD/PEL WO IVCON CT ABD & PELVIS W/[place] [address] [place] [id number] [facility] [place] [address] Specialty Diagnoses / Procedures Referred By Contac t Referred To Contact Diagnoses Malignant neoplasm of upper-outer quadrant of right breast in female, estrogen receptor positive (HCC) Pleural effusion, malignant Jacob, MD Stephania [address] [place] [address] [facility] [address] [place] [address] Reason Comments Breast Cancer Specialty Diagnoses / Procedures Referred By Contac t Referred To Contact Diagnoses Malignant neoplasm of upper-outer quadrant of right breast in female, estrogen receptor positive (HCC) Procedures CONSULT TO MEDICAL GENETICS - CANCER MEDICAL GENETICS COUNSELING EACH 30 [place] [address] [place] [address] [address] Referral ID Status Reason Start Date Expiration Date Visits Requested Visits Authorized [id number] Pending Review PCP Requested Referral Auto-Generate d Referral 04/22/2023 04/21/2024 1 1 Reason Comments Appointment Reason Comments Established Patient Specialty Diagnoses / Procedures Referred By Contac t Referred To Contact CT IMAGING Diagnoses Malignant neoplasm of breast in female, estrogen receptor positive, unspecified laterality, unspecified site of breast (HCC) Procedures CT ABD/PEL WO IVCON CT ABD & PELVIS W/[place] [address] [place] [address] [address] [id number] Referral ID Status Reason Start Date Expiration Date V isits Requested Visits Authorized [id number] Closed Auto-Generate d Referral 10/07/2023 11/05/2024 1 1 Reason Comments 2024 Ibrance Assistance Renewal Reason Comments Consult Specialty Diagnoses / Procedures Referred By Contac t Referred To Contact Radiation Oncology Diagnoses Pleural effusion, malignant Malignant neoplasm metastatic to bone (HCC) Procedures RAD/ONC CONSULT OFFICE/OUTPATIENT [facility] 60 [place] [address] [place] [id number] Referral ID Status Reason Start Date Expiration Date V isits Requested Visits Authorized [id number] Closed PCP Requested Referral 01/27/2024 01/26/2025 1 1 Reason Onset Date Comments Simulation Request Form 02/15/2024 Reason Comments Patient Education Reason Comments Radiotherapy On-treatment Visit Reason Comments Diarrhea Pain perineal area Reason Comments Opened In Error Reason Comments Recheck Specialty Diagnoses / Procedures Referred By Contac t Referred To Contact CT IMAGING Diagnoses Malignant neoplasm of breast in female, estrogen receptor positive, unspecified laterality, unspecified site of breast (HCC) Procedures CT CHEST WO IVCON DIAGNOSTIC COMPUTED TOMOGRAPHY THORAX W/[place] [address] [place] [address] Phone: tel: fax: CT IMAGING [id number] Referral ID Status Reason Start Date Expiration Date V isits Requested Visits Authorized [id number] Closed Auto-Generate d Referral 04/21/2024 05/21/2025 1 1 Reason Comments Non-Chemotherapy Treatment Chemotherapy Treatment Specialty Diagnoses / Procedures Referred By Contac t Referred To Contact Diagnoses Malignant neoplasm of upper-outer quadrant of right breast in female, estrogen receptor positive (HCC) Pleural effusion, malignant Stephania Hayes MD [address] [place] [address] Phone: tel: fax: Hematology/Oncology [address] [place] [address] Phone: tel: fax: Reason Onset Date Comments Refill Request 05/18/2024 Specialty Diagnoses / Procedures Referred By Michelle jalloh Referred To Contact Diagnoses Malignant neoplasm of upper-outer quadrant of right breast in female, estrogen receptor positive (HCC) Pleural effusion, malignant Damaso Alvarez MD [address] [place] [address] Phone: tel: Damaso Alvarez MD [address] [place] [address] Phone: tel: Referral ID Status Reason Start Date Expiration Date V isits Requested Visits Authorized [id number] Authorized 06/13/2024 09/11/2024 99 99 Reason Comments Abdominal Pain Patient has been see n by [facility] and [facility] for abdominal pain with vomiting that has been going on for at least 3 weeks. Patient states that she has not been able to keep anything down even water. States the medication that [place] gave her has not been helping. Patient denies diarrhea, urinary difficulties or fever. The abdominal pain comes and goes and is not constant. Specialty Diagnoses / Procedures Referred By Michelle jalloh Referred To Contact Diagnoses Intussusception (Multi) Intussusception, ileocecal (Multi) Upper abdominal pain Intestinal obstruction, unspecified cause, unspecified whether partial or complete (Multi) Procedures inpatient Yelena Garcia MD [address] [address] Phone: tel: fax: [facility] [address] [place] [phone] Phone: tel: Referral ID Status Reason Start Date Expiration Date Visits Re quested Visits Authorized [id number] 1 1 Reason Comments Post-op Post OP #1 staple re moval s/p ileocecectomy for acute bowel obstruction secondary to intussusception on 08-12-24 with hospitalization until 08-21-24. Patient have slight abdominal tenderness and takes Aleve for discomfort prn, last dose last night. Patient denies any incision drainage, bleeding or pain and no problems with bowel movements or urination. Care Teams (unrecognized sec tion and content) Java Developer Architect Relationship Specialty Start Date End Date Dot Allen DO PCP - General Internal Medicine 06/06/14 Julita Galarza RN Specialty Commercial Marketing Specialist Oncology 01/14/19 Apollo Nicholson V [address] [place] [address] Referring Internal Medicine 05/10/19 Stephania Hayes MD [address] [place] [address] Hematology/Oncology 05/10/19 Java Developer Architect Relationship Specialty Start Date End Date Dot Allen DO PCP - General Internal Medicine 06/06/14 Julita Galarza RN Specialty Commercial Marketing Specialist Oncology 01/14/19 Apollo Nicholson V [address] [place] [address] Referring Internal Medicine 05/10/19 Stephania Hayes MD [address] [place] [address] Hematology/Oncology 05/10/19 Java Developer Architect Relationship Specialty Start Date End Date Dot Allen DO PCP - General Internal Medicine 06/06/14 Julita Galarza RN Specialty Commercial Marketing Specialist Oncology 01/14/19 Apollo Nicholson V [address] [place] [address] Referring Internal Medicine 05/10/19 Stephania Hayes MD [address] [place] [address] Hematology/Oncology 05/10/19 Java Developer Architect Relationship Specialty Start Date End Date Dot Allen DO PCP - General Internal Medicine 06/06/14 Julita Galarza, RN Specialty Commercial Marketing Specialist Oncology 01/14/19 Apollo Nicholson V [address] [place] [address] Referring Internal Medicine 05/10/19 Stephania Hayes MD [address] [place] [address] Hematology/Oncology 05/10/19 Java Developer Architect Relationship Specialty Start Date End Date Dot Allen DO PCP - General Internal Medicine 06/06/14 Julita Galarza RN Specialty Commercial Marketing Specialist Oncology 01/14/19 Apollo Nicholson V [address] [address] Referring Internal Medicine 05/10/19 Stephania Hayes MD [address] [place] [address] Hematology/Oncology 05/10/19 Carito La RN [address] [place] [address] Refrigerating Engineer Hematology/Oncology 06/19/21 Java Developer Architect Relationship Specialty Start Date End Date Dot Allen DO PCP - General Internal Medicine 06/06/14 Julita Galarza RN Specialty Commercial Marketing Specialist Oncology 01/14/19 Apollo Nicholson V [address] [address] Referring Internal Medicine 05/10/19 Stephania Hayes MD [address] [place] [address] Hematology/Oncology 05/10/19 Carito La, TAMIE [address] [place] [address] Refrigerating Engineer Hematology/Oncology 06/19/21 Java Developer Architect Relationship Specialty Start Date End Date Dot Allen DO PCP - General Internal Medicine 06/06/14 Julita Galarza RN Specialty Commercial Marketing Specialist Oncology 01/14/19 Aopllo Nicholson, V [address] [place] [address] Referring Internal Medicine 05/10/19 Stephania Hayes MD [address] [place] [address] Hematology/Oncology 05/10/19 Carito La RN [address] [place] [address] Refrigerating Engineer Hematology/Oncology 06/19/21 Java Developer Architect Relationship Specialty Start Date End Date Dot Allen DO PCP - General Internal Medicine 06/06/14 Apollo Nicholson, V [address] [place] [address] Referring Internal Medicine 05/10/19 Stephania Hayes MD [address] [place] [address] Hematology/Oncology 05/10/19 Carito La RN [address] [place] [address] Specialty Commercial Marketing Specialist Hematology/Oncology 06/19/21 Java Developer Architect Relationship Specialty Start Date End Date Dot Allen DO PCP - General Internal Medicine 06/06/14 Apollo Nicholson V [address] [place] [address] Referring Internal Medicine 05/10/19 Stephania Hayes MD [address] [place] [address] Hematology/Oncology 05/10/19 Carito La, RN [address] [place] [address] Specialty Commercial Marketing Specialist Hematology/Oncology 06/19/21 Java Developer Architect Relationship Specialty Start Date End Date Dot Allen DO PCP - General Internal Medicine 06/06/14 Apollo Nicholson V [address] [place] [address] Referring Internal Medicine 05/10/19 Stephania Hayes MD [address] [place] [address] Hematology/Oncology 05/10/19 Carito La, RN [address] [place] [address] Specialty Commercial Marketing Specialist Hematology/Oncology 06/19/21 Java Developer Architect Relationship Specialty Start Date End Date Dot Allen, PCP - General Internal Medicine 06/06/14 Apollo Nicholson V [address] [place] [address] Referring Internal Medicine 05/10/19 Stephania Hayes MD [address] [place] [address] Hematology/Oncology 05/10/19 Carito La RN [address] [place] [address] Specialty Commercial Marketing Specialist Hematology/Oncology 06/19/21 Java Developer Architect Relationship Specialty Start Date End Date Dot Allen DO PCP - General Internal Medicine 06/06/14 Apollo Nicholson V [address] [place] [address] Referring Internal Medicine 05/10/19 Stephania Hayes MD [address] [place] [address] Hematology/Oncology 05/10/19 Carito La RN [address] [place] [address] Specialty Commercial Marketing Specialist Hematology/Oncology 06/19/21 Java Developer Architect Relationship Specialty Start Date End Date Dot Allen DO PCP - General Internal Medicine 06/06/14 Apollo Nicholson, V [address] [place] [address] Referring Internal Medicine 05/10/19 Stephania Hayes MD [address] [place] [address] Hematology/Oncology 05/10/19 Carito La RN [address] [place] [address] Specialty Commercial Marketing Specialist Hematology/Oncology 06/19/21 Java Developer Architect Relationship Specialty Start Date End Date Dot Allen DO PCP - General Internal Medicine 06/06/14 Apollo Nicholson V [address] [place] [address] Referring Internal Medicine 05/10/19 Stephania Hayes MD [address] [place] [address] Hematology/Oncology 05/10/19 Carito La, RN [address] [place] [address] Specialty Commercial Marketing Specialist Hematology/Oncology 06/19/21 Java Developer Architect Relationship Specialty Start Date End Date Dot Allen DO PCP - General Internal Medicine 06/06/14 Apollo Nicholson V [address] [place] [address] Referring Internal Medicine 05/10/19 Stephania Hayes MD [address] [place] [address] Hematology/Oncology 05/10/19 Carito La, RN [address] [place] [address] Specialty Commercial Marketing Specialist Hematology/Oncology 06/19/21 Java Developer Architect Relationship Specialty Start Date End Date Dot Allen DO PCP - General Internal Medicine 06/06/14 Apollo Nicholson V [address] [place] [address] Referring Internal Medicine 05/10/19 Stephania Hayes MD [address] [place] [address] Hematology/Oncology 05/10/19 Carito La RN [address] [place] [address] Specialty Commercial Marketing Specialist Hematology/Oncology 06/19/21 Java Developer Architect Relationship Specialty Start Date End Date Dot Allen DO PCP - General Internal Medicine 06/06/14 Apollo Nicholson V [address] [place] [address] Referring Internal Medicine 05/10/19 Stephania Hayes MD [address] [place] [address] Hematology/Oncology 05/10/19 Carito La RN [address] [place] [address] Specialty Commercial Marketing Specialist Hematology/Oncology 06/19/21 Java Developer Architect Relationship Specialty Start Date End Date Dot Allen DO PCP - General Internal Medicine 06/06/14 Apollo Nicholson, V [address] [place] [address] Referring Internal Medicine 05/10/19 Stephania Hayes MD [address] [place] [address] Hematology/Oncology 05/10/19 Carito La RN [address] [place] [address] Specialty Commercial Marketing Specialist Hematology/Oncology 06/19/21 Java Developer Architect Relationship Specialty Start Date End Date Dot Allen DO PCP - General Internal Medicine 06/06/14 Apollo Nicholson V [address] [place] [address] Referring Internal Medicine 05/10/19 Stephania Hayes MD [address] [place] [address] Hematology/Oncology 05/10/19 Carito La, TAMIE [address] [place] [address] Specialty Commercial Marketing Specialist Hematology/Oncology 06/19/21 Java Developer Architect Relationship Specialty Start Date End Date Dot Allen DO PCP - General Internal Medicine 06/06/14 Apollo Nicholson V [address] [place] [address] Referring Internal Medicine 05/10/19 Stephania Hayes MD [address] [place] [address] Hematology/Oncology 05/10/19 Carito La, TAMIE [address] [place] [address] Specialty Commercial Marketing Specialist Hematology/Oncology 06/19/21 Java Developer Architect Relationship Specialty Start Date End Date Dot Allen DO PCP - General Internal Medicine 06/06/14 Apollo Nicholson V [address] [place] [address] Referring Internal Medicine 05/10/19 Stephania Hayes MD [address] [place] [address] Hematology/Oncology 05/10/19 Carito La, TAMIE [address] [place] [address] Specialty Commercial Marketing Specialist Hematology/Oncology 06/19/21 Java Developer Architect Relationship Specialty Start Date End Date Dot Allen DO PCP - General Internal Medicine 06/06/14 Apollo Nicholson, Tito [address] [place] [address] Referring Internal Medicine 05/10/19 Stephania Hayes MD [address] [place] [address] Hematology/Oncology 05/10/19 Carito La RN [address] [place] [address] Specialty Commercial Marketing Specialist Hematology/Oncology 06/19/21 Java Developer Architect Relationship Specialty Start Date End Date Dot Allen DO PCP - General Internal Medicine 06/06/14 Apollo Nicholson, V [address] [place] [address] Referring Internal Medicine 05/10/19 Stephania Hayes MD [address] [place] [address] Hematology/Oncology 05/10/19 Carito La RN [address] [place] [address] Specialty Commercial Marketing Specialist Hematology/Oncology 06/19/21 Java Developer Architect Relationship Specialty Start Date End Date Dot Allen DO PCP - General Internal Medicine 06/06/14 Apollo Nicholson V [address] [place] [address] Referring Internal Medicine 05/10/19 Stephania Hayes MD [address] [place] [address] Hematology/Oncology 05/10/19 Carito La, RN [address] [place] [address] Specialty Commercial Marketing Specialist Hematology/Oncology 06/19/21 Java Developer Architect Relationship Specialty Start Date End Date Dot Allen DO PCP - General Internal Medicine 06/06/14 Apollo Nicholson V [address] [place] [address] Referring Internal Medicine 05/10/19 Stephania Hayes MD [address] [place] [address] Hematology/Oncology 05/10/19 Carito La, RN [address] [place] [address] Specialty Commercial Marketing Specialist Hematology/Oncology 06/19/21 Java Developer Architect Relationship Specialty Start Date End Date Dot Allen DO PCP - General Internal Medicine 06/06/14 Apollo Nicholson V [address] [place] [address] Referring Internal Medicine 05/10/19 Stephania Hayes MD [address] [place] [address] Hematology/Oncology 05/10/19 Carito La RN [address] [place] [address] Specialty Commercial Marketing Specialist Hematology/Oncology 06/19/21 Dipesh Lang [address] [place] [address] Cardiology 02/27/22 Java Developer Architect Relationship Specialty Start Date End Date Dot Allen DO PCP - General Internal Medicine 06/06/14 Apollo Nicholson V [address] [place] [address] Referring Internal Medicine 05/10/19 Stephania Hayes MD [address] [place] [address] Hematology/Oncology 05/10/19 Carito La RN [address] [place] [address] Specialty Commercial Marketing Specialist Hematology/Oncology 06/19/21 Dipesh Lang [address] [place] [address] Cardiology 02/27/22 Java Developer Architect Relationship Specialty Start Date End Date Dot Allen DO PCP - General Internal Medicine 06/06/14 Apollo Nicholson V [address] [place] [address] Referring Internal Medicine 05/10/19 Stephania Hayes MD [address] [place] [address] Hematology/Oncology 05/10/19 Carito La RN [address] [place] [address] Specialty Commercial Marketing Specialist Hematology/Oncology 06/19/21 Dipesh Lang [address] [place] [address] Cardiology 02/27/22 Java Developer Architect Relationship Specialty Start Date End Date Dot Allen DO PCP - General Internal Medicine 06/06/14 Apollo Nicholson V [address] [place] [address] Referring Internal Medicine 05/10/19 Stephania Hayes MD [address] [place] [address] Hematology/Oncology 05/10/19 Carito La RN [address] [place] [address] Specialty Commercial Marketing Specialist Hematology/Oncology 06/19/21 Dipesh Lang [address] [place] [address] Cardiology 02/27/22 Java Developer Architect Relationship Specialty Start Date End Date Dot Allen DO PCP - General Internal Medicine 06/06/14 Apollo Nicholson V [address] [place] [address] Referring Internal Medicine 05/10/19 Stephania Hayes MD [address] [place] [address] Hematology/Oncology 05/10/19 Carito La RN [address] [place] [address] Specialty Commercial Marketing Specialist Hematology/Oncology 06/19/21 Dipesh Lang [address] [place] [address] Cardiology 02/27/22 Java Developer Architect Relationship Specialty Start Date End Date Dot Allen DO PCP - General Internal Medicine 06/06/14 Apollo Nicholson V [address] [place] [address] Referring Internal Medicine 05/10/19 Stephania Hayes MD [address] [place] [address] Hematology/Oncology 05/10/19 Carito La RN [address] [place] [address] Specialty Commercial Marketing Specialist Hematology/Oncology 06/19/21 Dipesh Lang [address] [place] [address] Cardiology 02/27/22 Java Developer Architect Relationship Specialty Start Date End Date Dot Allen DO PCP - General Internal Medicine 06/06/14 Apollo Nicholson V [address] [place] [address] Referring Internal Medicine 05/10/19 Stephania Hayes MD [address] [place] [address] Hematology/Oncology 05/10/19 Carito La RN [address] [place] [address] Specialty Commercial Marketing Specialist Hematology/Oncology 06/19/21 Dipesh Lang [address] [place] [address] Cardiology 02/27/22 Java Developer Architect Relationship Specialty Start Date End Date Dot Allen DO PCP - General Internal Medicine 06/06/14 Apollo Nicholson V [address] [place] [address] Referring Internal Medicine 05/10/19 Stephania Hayes MD [address] [place] [address] Hematology/Oncology 05/10/19 Carito La RN [address] [place] [address] Specialty Commercial Marketing Specialist Hematology/Oncology 06/19/21 Dipesh Lang [address] [place] [address] Cardiology 02/27/22 Java Developer Architect Relationship Specialty Start Date End Date Dot Allen DO PCP - General Internal Medicine 06/06/14 Apollo Nicholson V [address] [place] [address] Referring Internal Medicine 05/10/19 Stephania Hayes MD [address] [place] [address] Hematology/Oncology 05/10/19 Carito La RN [address] [place] [address] Specialty Commercial Marketing Specialist Hematology/Oncology 06/19/21 Dipesh Lang [address] [place] [address] Cardiology 02/27/22 Java Developer Architect Relationship Specialty Start Date End Date Dot Allen DO PCP - General Internal Medicine 06/06/14 Apollo Nicholson V [address] [place] [address] Referring Internal Medicine 05/10/19 Stephania Hayes MD [address] [place] [address] Hematology/Oncology 05/10/19 Carito La RN [address] [place] [address] Specialty Commercial Marketing Specialist Hematology/Oncology 06/19/21 Dipesh Lang [address] [place] [address] Cardiology 02/27/22 Java Developer Architect Relationship Specialty Start Date End Date Dot Allen DO PCP - General Internal Medicine 06/06/14 Apollo Nicholson V [address] [place] [address] Referring Internal Medicine 05/10/19 Stephania Hayes MD [address] [place] [address] Hematology/Oncology 05/10/19 Carito La RN [address] [place] [address] Specialty Commercial Marketing Specialist Hematology/Oncology 06/19/21 Dipesh Lang [address] [place] [address] Cardiology 02/27/22 Java Developer Architect Relationship Specialty Start Date End Date Dot Allen DO PCP - General Internal Medicine 06/06/14 Apollo Nicholson V [address] [place] [address] Referring Internal Medicine 05/10/19 Stephania Hayes MD [address] [place] [address] Hematology/Oncology 05/10/19 Carito La RN [address] [place] [address] Specialty Commercial Marketing Specialist Hematology/Oncology 06/19/21 Dipesh Lang[address] [place] [address] Cardiology 02/27/22 Java Developer Architect Relationship Specialty Start Date End Date Dot Allen DO PCP - General Internal Medicine 06/06/14 Apollo Nicholson, V [address] [place] [address] Referring Internal Medicine 05/10/19 Carito La RN [address] [place] [address] Specialty Commercial Marketing Specialist Hematology/Oncology 06/19/[address] [place] [address] Cardiology 02/27/22 Java Developer Architect Relationship Specialty Start Date End Date Dot Allen DO PCP - General Internal Medicine 06/06/14 Apollo Nicholson V [address] [place] [address] Referring Internal Medicine 05/10/19 Carito La RN [address] [place] [address] Specialty Commercial Marketing Specialist Hematology/Oncology 06/19/21 Dipesh Lang [address] [place] [address] Cardiology 02/27/22 Java Developer Architect Relationship Specialty Start Date End Date Dot Allen DO PCP - General Internal Medicine 06/06/14 Apollo Nicholson V [address] [place] [address] Referring Internal Medicine 05/10/19 Carito La, TAMIE [address] [place] [address] Specialty Commercial Marketing Specialist Hematology/Oncology 06/19/21 Dipesh Lang [address] [place] [address] Cardiology 02/27/22 Java Developer Architect Relationship Specialty Start Date End Date Dot Allen DO PCP - General Internal Medicine 06/06/14 Apollo Nicholson V [address] [place] [address] Referring Internal Medicine 05/10/19 Carito La, TAMIE [address] [place] [address] Specialty Commercial Marketing Specialist Hematology/Oncology 06/19/21 Dipesh Lang [address] [place] [address] Cardiology 02/27/22 Java Developer Architect Relationship Specialty Start Date End Date Dot Allen DO PCP - General Internal Medicine 06/06/14 Apollo Nicholson V [address] [address] Referring Internal Medicine 05/10/19 Carito La, TAMIE [address] [place] [address] Specialty Commercial Marketing Specialist Hematology/Oncology 06/19/21 Dipesh Lang [address] [place] [address] Cardiology 02/27/22 Java Developer Architect Relationship Specialty Start Date End Date Dot Allen DO PCP - General Internal Medicine 06/06/14 Apollo Nicholson V [address] [place] [address] Referring Internal Medicine 05/10/19 Carito La RN [address] [place] [address] Specialty Commercial Marketing Specialist Hematology/Oncology 06/19/21 Dipesh Lang [address] [place] [address] Cardiology 02/27/22 Damaso Alvarez MD [address] [place] [address] Hematology/Oncology 11/05/22 Java Developer Architect Relationship Specialty Start Date End Date Dot Allen DO PCP - General Internal Medicine 06/06/14 Apollo Nicholson V [address] [place] [address] Referring Internal Medicine 05/10/19 Carito La RN [address] [place] [address] Specialty Commercial Marketing Specialist Hematology/Oncology 06/19/21 Dipesh Lang [address] [place] [address] Cardiology 02/27/22 Damaso Alvarez MD [address] [place] [address] Hematology/Oncology 11/05/22 Java Developer Architect Relationship Specialty Start Date End Date Dot Allen DO PCP - General Internal Medicine 06/06/14 Apollo Nicholson V [address] [place] [address] Referring Internal Medicine 05/10/19 Carito La RN [address] [place] [address] Specialty Commercial Marketing Specialist Hematology/Oncology 06/19/21 Dipesh Lang [address] [place] [address] Cardiology 02/27/22 Damaso Alvarez MD [address] [place] [address] Hematology/Oncology 11/05/22 Java Developer Architect Relationship Specialty Start Date End Date Dot Allen, DO PCP - General Internal Medicine 06/06/14 Apollo Nicholson V [address] [place] [address] Referring Internal Medicine 05/10/19 Carito La RN [address] [place] [address] Specialty Commercial Marketing Specialist Hematology/Oncology 06/19/21 Dipesh Lang [address] [place] [address] Cardiology 02/27/22 Damaso Alvarez MD [address] [place] [address] Hematology/Oncology 11/05/22 Java Developer Architect Relationship Specialty Start Date End Date Dot Allen DO PCP - General Internal Medicine 06/06/14 Apollo Nicholson V [address] [place] [address] Referring Internal Medicine 05/10/19 Carito La, TAMIE [address] [place] [address] Specialty Commercial Marketing Specialist Hematology/Oncology 06/19/21 Dipesh Lang MD [address] [place] [address] Cardiology 02/27/22 Damaso Alvarez MD [address] [place] [address] Hematology/Oncology 11/05/22 Java Developer Architect Relationship Specialty Start Date End Date Dot Allen DO PCP - General Internal Medicine 06/06/14 Apollo Nicholson V [address] [place] [address] Referring Internal Medicine 05/10/19 Carito La, TAMIE [address] [place] [address] Specialty Commercial Marketing Specialist Hematology/Oncology 06/19/21 Dipesh Lang MD [address] [place] [address] Cardiology 02/27/22 Damaso Alvarez MD [address] [place] [address] Hematology/Oncology 11/05/22 Java Developer Architect Relationship Specialty Start Date End Date Dot Allen DO PCP - General Internal Medicine 06/06/14 Apollo Nicholson V [address] [place] [address] Referring Internal Medicine 05/10/19 Carito La RN [address] [place] [address] Specialty Commercial Marketing Specialist Hematology/Oncology 06/19/21 Dipesh Lang MD [address] [place] [address] Cardiology 02/27/22 Damaso Alvarez MD [address] [place] [address] Hematology/Oncology 11/05/22 Java Developer Architect Relationship Specialty Start Date End Date Dot Allen DO PCP - General Internal Medicine 06/06/14 Apollo Nicholson V [address] [place] [address] Referring Internal Medicine 05/10/19 AbhinavCarito galvez RN [address] [place] [address] Specialty Commercial Marketing Specialist Hematology/Oncology 06/19/21 Dipesh Lang MD [address] [place] [address] Cardiology 02/27/22 Damaso Alvarez MD [address] [place] [id number] Hematology/Oncology 11/05/22 Java Developer Architect Relationship Specialty Start Date End Date Dot Allen DO PCP - General Internal Medicine 06/06/14 Apollo Nicholson V [address] [place] [address] Referring Internal Medicine 05/10/19 Carito La RN [address] [place] [address] Specialty Commercial Marketing Specialist Hematology/Oncology 06/19/21 Dipesh Lang MD [address] [place] [address] Cardiology 02/27/22 Damaso Alvarez MD [address] [place] [address] Hematology/Oncology 11/05/22 Java Developer Architect Relationship Specialty Start Date End Date Dot Allen DO PCP - General Internal Medicine 06/06/14 Apollo Nicholson V [address] [place] [address] Referring Internal Medicine 05/10/19 Carito La, TAMIE [address] [place] [address] Specialty Commercial Marketing Specialist Hematology/Oncology 06/19/21 Dipesh Lang MD [address] [place] [address] Cardiology 02/27/22 Damaso Alvarez MD [address] [place] [address] Hematology/Oncology 11/05/22 Java Developer Architect Relationship Specialty Start Date End Date Dot Allen DO PCP - General Internal Medicine 06/06/14 Apollo Nicholson V [address] [place] [place] [address] Referring Internal Medicine 05/10/19 Carito La RN [address] [place] [address] Specialty Commercial Marketing Specialist Hematology/Oncology 06/19/21 Dipesh Lang MD [address] [place] [address] Cardiology 02/27/22 Damaso Alvarez MD [address] [place] [address] Hematology/Oncology 11/05/22 Java Developer Architect Relationship Specialty Start Date End Date Dot Allen DO PCP - General Internal Medicine 06/06/14 Apollo Nicholson V [address] [place] [address] Referring Internal Medicine 05/10/19 Carito La, RN [address] [place] [address] Specialty Commercial Marketing Specialist Hematology/Oncology 06/19/21 Dipesh Lang MD [address] [place] [address] Cardiology 02/27/22 Damaso Alvarez MD [address] [place] [address] Hematology/Oncology 11/05/22 Java Developer Architect Relationship Specialty Start Date End Date EligioLuceroDot DO Niharika PCP - General Internal Medicine 06/06/14 Apollo Nicholson V [address] [place] [address] Referring Internal Medicine 05/10/19 Carito La, TAMIE [address] [place] [address] Specialty Commercial Marketing Specialist Hematology/Oncology 06/19/21 Dipesh Lang MD [address] [place] [address] Cardiology 02/27/22 Damaso Alvarez MD [address] [place] [address] Hematology/Oncology 11/05/22 Java Developer Architect Relationship Specialty Start Date End Date Dot Allen DO PCP - General Internal Medicine 06/06/14 Apollo Nicholson V [address] [place] [place] [address] Referring Internal Medicine 05/10/19 Carito La, TAMIE [address] [place] [address] Specialty Commercial Marketing Specialist Hematology/Oncology 06/19/21 Dipesh Lang MD [address] [place] [address] Cardiology 02/27/22 Damaso Alvarez MD [address] [place] [address] Hematology/Oncology 11/05/22 Java Developer Architect Relationship Specialty Start Date End Date Dot Allen DO PCP - General Internal Medicine 06/06/14 Apollo Nicholson V [address] [place] [address] Referring Internal Medicine 05/10/19 Carito La, TAMIE [address] [place] [address] Specialty Commercial Marketing Specialist Hematology/Oncology 06/19/21 Dipesh Lang MD [address] [place] [address] Cardiology 02/27/22 Damaso Alvarez MD [address] [place] [address] Hematology/Oncology 11/05/22 Java Developer Architect Relationship Specialty Start Date End Date Dot Allen DO PCP - General Internal Medicine 06/06/14 Apollo Nicholson V [address] [place] [address] Referring Internal Medicine 05/10/19 Carito La, RN [address] [place] [address] Specialty Commercial Marketing Specialist Hematology/Oncology 06/19/21 Dipesh Lang MD [address] [place] [address] Cardiology 02/27/22 Damaso Alvarez MD [address] [place] [address] Hematology/Oncology 11/05/22 Java Developer Architect Relationship Specialty Start Date End Date Dot Allen DO PCP - General Internal Medicine 06/06/14 Apollo Nicholson V [address] [place] [address] Referring Internal Medicine 05/10/19 Carito La, TAMIE [address] [place] [address] Specialty Commercial Marketing Specialist Hematology/Oncology 06/19/21 Dipesh Lang MD [address] [place] [address] Cardiology 02/27/22 Damaso Alvarez MD [address] [place] [address] Hematology/Oncology 11/05/22 Java Developer Architect Relationship Specialty Start Date End Date Dot Allen DO PCP - General Internal Medicine 06/06/14 Apollo Nicholson V [address] [place] [address] Referring Internal Medicine 05/10/19 Carito La RN [address] [place] [address] Specialty Commercial Marketing Specialist Hematology/Oncology 06/19/21 Dipesh Lang MD [address] [place] [address] Cardiology 02/27/22 Damaso Alvarez MD [address] [place] [address] Hematology/Oncology 11/05/22 Java Developer Architect Relationship Specialty Start Date End Date Dot Allen DO PCP - General Internal Medicine 06/06/14 Apollo Nicholson V [address] [place] [address] Referring Internal Medicine 05/10/19 Carito La RN [address] [place] [address] Specialty Commercial Marketing Specialist Hematology/Oncology 06/19/21 Dipesh Lang MD [address] [place] [address] Cardiology 02/27/22 Damaso Alvarez MD [address] [place] [address] Hematology/Oncology 11/05/22 Java Developer Architect Relationship Specialty Start Date End Date Dot Allen DO PCP - General Internal Medicine 06/06/14 Apollo Nicholson V [address] [place] [address] Referring Internal Medicine 05/10/19 Carito La RN [address] [place] [address] Specialty Commercial Marketing Specialist Hematology/Oncology 06/19/21 Dipesh Lang MD [address] [place] [address] Cardiology 02/27/22 Damaso Alvarez MD [address] [place] [address] Hematology/Oncology 11/05/22 Java Developer Architect Relationship Specialty Start Date End Date Jayy Alleneen DO Niharika PCP - General Internal Medicine 06/06/14 Apollo Nicholson V [address] [place] [address] Referring Internal Medicine 05/10/19 Carito La, TAMIE [address] [place] [address] Specialty Commercial Marketing Specialist Hematology/Oncology 06/19/21 Dipesh Lang MD [address] [place] [address] Cardiology 02/27/22 Damaso Alvarez MD [address] [place] [address] Hematology/Oncology 11/05/22 Java Developer Architect Relationship Specialty Start Date End Date EligioDot crow DO Niharika PCP - General Internal Medicine 06/06/14 Apollo Nicholson V [address] [place] [address] Referring Internal Medicine 05/10/19 Carito La, TAMIE [address] [place] [address] Specialty Commercial Marketing Specialist Hematology/Oncology 06/19/21 Dipesh Lang MD [address] [place] [address] Cardiology 02/27/22 Damaso Alvarez MD [address] [place] [address] Hematology/Oncology 11/05/22 Java Developer Architect Relationship Specialty Start Date End Date Dot Allen DO PCP - General Internal Medicine 06/06/14 Apollo Nicholson V [address] [place] [address] Referring Internal Medicine 05/10/19 Carito La, TAMIE [address] [place] [address] Specialty Commercial Marketing Specialist Hematology/Oncology 06/19/21 Dipesh Lang MD [address] [place] [address] Cardiology 02/27/22 Damaso Alvarez MD [address] [place] [address] Hematology/Oncology 11/05/22 Java Developer Architect Relationship Specialty Start Date End Date Dot Allen DO PCP - General Internal Medicine 06/06/14 Apollo Nicholson V [address] [place] [address] Referring Internal Medicine 05/10/19 Carito La, TAMIE [address] [place] [address] Specialty Commercial Marketing Specialist Hematology/Oncology 06/19/21 Dipesh Lang MD [address] [place] [address] Cardiology 02/27/22 Damaso Alvarez MD [address] [place] [address] Hematology/Oncology 11/05/22 Java Developer Architect Relationship Specialty Start Date End Date Dot Allen DO PCP - General Internal Medicine 06/06/14 Apollo Nicholson V [address] [place] [address] Referring Internal Medicine 05/10/19 Carito La, RN [address] [place] [address] Specialty Commercial Marketing Specialist Hematology/Oncology 06/19/21 Dipesh Lang MD [address] [place] [address] Cardiology 02/27/22 Damaso Alvarez MD [address] [place] [address] Hematology/Oncology 11/05/22 Java Developer Architect Relationship Specialty Start Date End Date Dot Allen DO PCP - General Internal Medicine 06/06/14 Apollo Nicholson V [address] [place] [address] Referring Internal Medicine 05/10/19 Carito La RN [address] [place] [address] Specialty Commercial Marketing Specialist Hematology/Oncology 06/19/21 Dipesh Lang MD [address] [place] [address] Cardiology 02/27/22 Damaso Alvarez MD [address] [place] [address] Hematology/Oncology 11/05/22 Java Developer Architect Relationship Specialty Start Date End Date Dot Allen DO PCP - General Internal Medicine 06/06/14 Apollo Nicholson V [address] [place] [address] Referring Internal Medicine 05/10/19 Carito La RN [address] [place] [address] Specialty Commercial Marketing Specialist Hematology/Oncology 06/19/21 Dipesh Lang MD [address] [place] [address] Cardiology 02/27/22 Damaso Alvarez MD [address] [place] [address] Hematology/Oncology 11/05/22 Java Developer Architect Relationship Specialty Start Date End Date Dot Allen DO PCP - General Internal Medicine 06/06/14 Apollo Nicholson V [address] [place] [address] Referring Internal Medicine 05/10/19 Carito La RN [address] [place] [address] Specialty Commercial Marketing Specialist Hematology/Oncology 06/19/21 Dipesh Lang MD [address] [place] [address] Cardiology 02/27/22 Damaso Alvarez MD [address] [place] [address] Hematology/Oncology 11/05/22 Java Developer Architect Relationship Specialty Start Date End Date EligioDot crow DO Niharika PCP - General Internal Medicine 06/06/14 Apollo Nicholson V [address] [place] [address] Referring Internal Medicine 05/10/19 Carito La, TAMIE [address] [place] [address] Specialty Commercial Marketing Specialist Hematology/Oncology 06/19/21 Dipesh Lang MD [address] [place] [address] Cardiology 02/27/22 Damaso Alvarez MD [address] [place] [address] Hematology/Oncology 11/05/22 Java Developer Architect Relationship Specialty Start Date End Date Dot Allen DO PCP - General Internal Medicine 06/06/14 Apollo Nicholson V [address] [place] [address] Referring Internal Medicine 05/10/19 Carito La, TAMIE [address] [place] [address] Specialty Commercial Marketing Specialist Hematology/Oncology 06/19/21 Dipesh Lang MD [address] [place] [address] Cardiology 02/27/22 Damaso Alvarez MD [address] [place] [address] Hematology/Oncology 11/05/22 Java Developer Architect Relationship Specialty Start Date End Date Dot Allen DO PCP - General Internal Medicine 06/06/14 Apollo Nicholson V [address] [place] [address] Referring Internal Medicine 05/10/19 Carito La, TAMIE [address] [place] [address] Specialty Commercial Marketing Specialist Hematology/Oncology 06/19/21 Dipesh Lang MD [address] [place] [address] Cardiology 02/27/22 Damaso Alvarez MD [address] [place] [address] Hematology/Oncology 11/05/22 Java Developer Architect Relationship Specialty Start Date End Date Dot Allen DO PCP - General Internal Medicine 06/06/14 Apollo Nicholson V [address] [place] [address] Referring Internal Medicine 05/10/19 Carito La RN [address] [place] [address] Specialty Commercial Marketing Specialist Hematology/Oncology 06/19/21 Dipesh Lang MD [address] [place] [address] Cardiology 02/27/22 Damaso Alvarez MD [address] [place] [address] Hematology/Oncology 11/05/22 Java Developer Architect Relationship Specialty Start Date End Date Dot Allen DO PCP - General Internal Medicine 06/06/14 Apollo Nicholson V [address] [place] [address] Referring Internal Medicine 05/10/19 Carito La, TAMIE [address] [facility], [place] [address] Specialty Commercial Marketing Specialist Hematology/Oncology 06/19/21 Dipesh Lang MD [address] [facility] [address] [place], [place] [address] Cardiology 02/27/22 Damaso Alvarez MD [address] [facility] [place] [address] Hematology/Oncology 11/05/22 Java Developer Architect Relationship Specialty Start Date End Date Dot Allen DO [address] [facility] 2 [place], [place] [address] PCP - General 03/23/21 Java Developer Architect Relationship Specialty Start Date End Date Dot Allen DO [address] [facility] 2 [place], [place] [address] PCP - General 03/23/21 Team Status: Active Member Role Status Dates Dr. Dot Allen DO Primary Care Provider Active Team Status: Active Member Role Status Dates Dr. Dot Allen DO Primary Care Provider Active Start: September 07, 2024 Dr. Jake Crotés DO Emergency Provider Active Start: September 07, 2024 Dr. Aubrey Atkinson DO Admit Provider Active Start: September 07, 2024 Dr. Aubrey Atkinson DO Attending Provider Active Start: September 07, 2024 Dr. Aubrey Atkinson DO Referring Provider Active Start: September 07, 2024 Goals (unrecognized section and content) Goals may be documented in a n alternate sectionGoals may be documented in an alternate sectionGoals may be documented in an alternate section Inactive Administered Medications - up to 3 most recent administrations Administered Medications (un recognized section and content) Medication Order MAR Action Action Date Dose Rate Site fulvestrant 500 mg injection (FASLODEX) 500 mg, INTRAMUSCULAR, ONCE, 1 dose, On Thu05/20/23 at 1100, Hazardous Chemotherapy Drug: Use appropriate PPE. Refrigerate. Given 05/20/2023 11:00 AM EST 500 mg Abdomen, RLQ Scheduled Active and Recently Administ ered Medications (unrecognized section and content) Medication Order 08/19/2024 08/20/2024 08/21/2024 carvedilol (Coreg) tablet 12.5 mg 12.5 mg, oral, 2 times daily, First dose on Thu08/13/24 at 0200, Recovery & On Unit 0516 (Not Given - Provider: Laure Giang, TAMIE - Reason: Other)1705 (Given - Provider: Lakshmi Pollock, TAMIE) 0508 (Given - Provider: Laure Giang, RN)1810 (Given - Provider: Lisette Egan, TAMIE) 0630 (Given - Provider: Pauline Monteiro RN)1800 (Due) diatrizoate polly-diatrizoat sod (Gastrografin 37% organic bound iodine) solution 60 mL 60 mL, oral, Once, On Thu08/19/24 at 1100, For 1 dose, May be diluted 1:1 with water, carbonated beverage, milk, or mineral oil for older adults with cachexia., What is the indication of use? Diagnostic Use 1100 (Due) enoxaparin (Lovenox) syringe 40 mg 40 mg, subcutaneous, Every 24 hours, First dose (after last modification) on Thu08/16/24 at 0900, Phase II/On Unit, Indications: deep vein thrombosis prevention 0854 (Given - Provider: Lakshmi Pollock RN) 0916 (Given - Provider: Lisette Egan, TAMIE) 0848 (Given - Provider: Lisette Egan RN) furosemide (Lasix) injection 20 mg (COMPLETED) 20 mg, intravenous, Once, On Thu08/19/24 at 0800, For 1 dose, For doses less than or = 160 mg, give IV push at maximum rate of 40 mg/min For doses greater than 160 mg, dilute in 50 mL and administer at 4 mg/min 0854 (Given - Provider: Lakshmi Pollock RN) furosemide (Lasix) injection 20 mg (COMPLETED) 20 mg, intravenous, Once, On Thu08/20/24 at 0815, For 1 dose, For doses less than or = 160 mg, give IV push at maximum rate of 40 mg/min For doses greater than 160 mg, dilute in 50 mL and administer at 4 mg/min 0914 (Given - Provider: Lisette Egan RN) pantoprazole (ProtoNix) EC tablet 40 mg 40 mg, oral, Daily before breakfast, First dose on Thu08/13/24 at 0700, Phase II/On Unit, For patients with a pre-op history of GERD Do not crush, chew, or split. 0754 (Not Given - Provider: Lakshmi Pollock RN - Reason: Other - Comment: can't be crushed, pt unable to take by mouth) 0818 (Given - Provider: Lisette Egan RN) 0630 (Given - Provider: Pauline Monteiro RN) potassium chloride (Klor-Con) packet 20 mEq 20 mEq, oral, 2 times daily, First dose on Thu08/16/24 at 0900, Dissolve each packet in 4 ounces of water = 5 mEq per 1 oz fluid. 0854 (Given - Provider: Lakshmi Pollock RN)2024 (Given - Provider: Laure Giang RN) 0916 (Given - Provider: Lisette Egan, TAMIE)2009 (Given - Provider: Pauline Monteiro, TAMIE) 0848 (Not Given - Provider: Lisette Egan RN - Reason: Patient/family refused)2100 (Due) potassium phosphates 21 mmol in dextrose 5% 250 mL IV (COMPLETED) 21 mmol, intravenous, at 42.8 mL/hr, Administer over 6 Hours, Once, On Thu08/20/24 at 0645, For 1 dose, Each 3 mmol contains 4.4 mEq potassium. 0933 (New Bag - Provider: Lisette Egan RN)1611 (Stopped - Provider: Lisette Egan RN) venlafaxine XR (Effexor-XR) 24 hr capsule 37.5 mg 37.5 mg, oral, Daily with breakfast, First dose on Thu08/13/24 at 0915, Capsule may be swallowed whole, or may be opened and its contents sprinkled on applesauce if consumed immediately without chewing. Do not crush or chew. 0854 (Given - Provider: Lakshmi Pollock RN) 0818 (Given - Provider: Lisette Egan RN) 0848 (Given - Provider: Lisette Egan RN) Continuous Medication Order 08/19/2024 08/20/2024 08/21/2024 lactated Ringer's infusion (CANCELED) 75 mL/hr, intravenous, Continuous, Starting on 08/13/24 at 0200, For 192 hours, Recovery & On Unit 0000 (Rate/Dose Verify - Provider: Laure Giang RN)0100 (Rate/Dose Verify - Provider: Laure Giang RN)0200 (Rate/Dose Verify - Provider: Laure Giang RN)0300 (Rate/Dose Verify - Provider: Laure Giang RN)0400 (Rate/Dose Verify - Provider: Laure Giang RN)0545 (New Bag - Provider: Laure Giang RN - Comment: [Order ends at this time. Document the following action when infusion is complete: Stopped])0600 (Rate/Dose Verify - Provider: Laure Giang RN)0754 (Stopped - Provider: Lakshmi Pollock RN - Comment: off unit to xray)1048 (Restarted - Provider: Lakshmi Pollock RN)1618 (Rate/Dose Verify - Provider: Lakshmi Pollock RN)1900 (Rate/Dose Verify - Provider: Laure Giang RN)2000 (Rate/Dose Verify - Provider: Laure Giang RN)2100 (Rate/Dose Verify - Provider: Laure Giang RN)2200 (Rate/Dose Verify - Provider: Laure Giang RN)2300 (Rate/Dose Verify - Provider: Laure Giang RN)2359 (New Bag - Provider: Laure Giang RN - Comment: [Order ends at this time. Document the following action when infusion is complete: Stopped]) 0100 (Rate/Dose Verify - Provider: Laure Giang RN)0200 (Rate/Dose Verify - Provider: Laure Giang RN)0300 (Rate/Dose Verify - Provider: Laure Giang RN)0400 (Rate/Dose Verify - Provider: Laure Giang RN)0507 (Rate/Dose Verify - Provider: Laure Giang RN)0600 (Rate/Dose Verify - Provider: Laure Giang RN)0830 (Stopped - Provider: Lisette Egan RN - Comment: [Order ends at this time. Document the following action when infusion is complete: Stopped]) PRN Medication Order 08/19/2024 08/20/2024 08/21/2024 acetaminophen (Tylenol) tablet 650 mg 650 mg, oral, Every 6 hours PRN, pain mild (1-3), first line, Starting on 08/14/24 at 1815, Phase II/On Unit, If ordered PRN for pain, nurse is permitted to administer this medication for higher pain scores based on patient preference? Yes 1136 (Given - Provider: Lisette Egan RN)2009 (Given - Provider: Pauline Monteiro RN) naloxone (Narcan) injection 0.2 mg 0.2 mg, intravenous, Every 5 min PRN, respiratory depression, Starting on 08/13/24 at 0559, Phase II/On Unit ondansetron (Zofran) injection 4 mg(Linked Group 1) 4 mg, intravenous, Every 8 hours PRN, nausea/vomiting, first line, Starting on 08/13/24 at 0559, Phase II/On Unit, 1st Line. Give IV if patient is unable to take orally. If inadequate response within 60 minutes, proceed to next-line agent for same PRN reason or contact provider if no further options ordered. When administering via IV Push, administer over 3-5 minutes. ondansetron ODT (Zofran-ODT) disintegrating tablet 4 mg(Linked Group 1) 4 mg, oral, Every 8 hours PRN, nausea/vomiting, first line, Starting on 08/13/24 at 0559, Phase II/On Unit, 1st Line. Use oral route first, if possible. If inadequate response within 60 minutes, proceed to next-line agent for same PRN reason or contact provider if no further options ordered. oxyCODONE (Roxicodone) immediate release tablet 10 mg 10 mg, oral, Every 4 hours PRN, pain severe (7-10), first line, Starting on 08/13/24 at 0559, Phase II/On Unit, If ordered PRN for pain, nurse is permitted to administer this medication for higher pain scores based on patient preference? Yes oxyCODONE (Roxicodone) immediate release tablet 5 mg 5 mg, oral, Every 4 hours PRN, pain moderate (4-6), first line, Starting on 08/13/24 at 0559, Phase II/On Unit, If ordered PRN for pain, nurse is permitted to administer this medication for higher pain scores based on patient preference? Yes oxygen (O2) therapy inhalation, Continuous PRN - O2/gases, other, Starting on 08/13/24 at 0559, Phase II/On Unit, Wean to room air., Device: Nasal Cannula, Rate in liters per minute: 2 Lpm, Keep O2 Sat Above: 92% 0142 (Rate [employer] - Provider: Jaxson Marr, GRINDER LAP) 1810 (Rate [employer] - Provider: Nisha Frey, GRINDER LAP - Comment: RA 88%-90%) oxygen (O2) therapy inhalation, Continuous PRN - O2/gases, other, Starting on 08/13/24 at 1301, May use O2 vis Nasal Cannula if needed till NG is out, Device: Non-Invasive Ventilation, Rate in liters per minute: 2 LPM, FIO2: 28, Keep O2 Sat Above: 90% 0633 ([employer] - Provider: Adrienne Pham STATION HELPER)1851 (Start - Provider: Latha Thompson, NADIA) 0028 ([employer] - Provider: Sonny Waldrop, GRINDER LAP)2228 (Rate [employer] - Provider: Nisha Frey, GRINDER LAP)2326 (Start - Provider: Lea Chowdhury, GRINDER LAP - Comment: pt asleep RA SpO2 83% 3L FiO2 bleed in via Home CPAP)2330 (Rate [employer] - Provider: Lea Chowdhury, NADIA) 0042 (Stopped - Provider: Lea Chowdhury RRT - Comment: pt took off Home CPAP machine w/3L fiO2 bleed in. pt was on RA 21% w/o Home CPAP with Spo2 88%)0044 (Start - Provider: Lea Chowdhury RRT - Comment: woke pt up to place Home CPAP machine back on pt but pt said She doesn't waant to wear CPAP machine. Pt did allow this RT to place 3L NC in nose. pt does not want to wear cpap machine anymore.)0213 ([employer] - Provider: Lea Chowdhury RRT - Comment: pt remains asleep)0253 (Rate [employer] - Provider: Lea Chowdhury GRINDER LAP - Comment: pt remains asleep Overnight PO in place)0400 (Rate [employer] - Provider: Lea Chowdhury, GRINDER LAP)0643 (Rate [employer] Medical [employer] - Provider: Deborah Abbott, GRINDER LAP) phenoL (Chloraseptic) 1.4 % mouth/throat spray 1 spray 1 spray, Mouth/Throat, Every 2 hour PRN, sore throat, Starting on 08/13/24 at 1944, Phase II/On Unit, Instruct patient to spit out after 15 seconds. Linked Groups Order Group 1: ondansetron ODT (Zofran-ODT) disintegrating tablet 4 mgJump to med 4 mg, oral, Every 8 hours PRN, nausea/vomiting, first line, Starting on 08/13/24 at 0559, Phase II/On Unit, 1st Line. Use oral route first, if possible. If inadequate response within 60 minutes, proceed to next-line agent for same PRN reason or contact provider if no further options ordered. Or ondansetron (Zofran) injection 4 mgJump to med 4 mg, intravenous, Every 8 hours PRN, nausea/vomiting, first line, Starting on 08/13/24 at 0559, Phase II/On Unit, 1st Line. Give IV if patient is unable to take orally. If inadequate response within 60 minutes, proceed to next-line agent for same PRN reason or contact provider if no further options ordered. When administering via IV Push, administer over 3-5 minutes. FOR RECORDS PERTAINING TO PATIENTS WHO ARE OR HAVE BEEN ENROLLED IN A CHEMICAL DEPENDENCY/SUBSTANCEABUSE PROGRAM, SOME INFORMATION MAY BE OMITTED. This clinical summary was aggregated from multiple sources. Caution should be exercised in using it in the provision of clinical care. This summary normalizes information from multiple sources, and as a consequence, information in this document may materially change the coding, format and clinical context of patient data. In addition, data may be omitted in some cases. CLINICAL DECISIONS SHOULD BE BASED ON THE PRIMARY CLINICAL RECORDS. [employer] [facility]. provides no warranty or guarantee of the accuracy or completeness of information in this document.
[2024-09-08] VITALS (7 sets, daily range): BP systolic 148–186; BP diastolic 50–95; PULSE 67–73; RESP 15–18; TEMP 36.6–36.9; O2SAT 93–100
[2024-09-08 07:39] LABS: Hematocrit 26.7 % (37-47); Hemoglobin 8.8 g/dL (12.0-15.0); Mean Corpuscular Hgb 32.8 pg (27.0-32.0); Mean Corpuscular Volume 99.6 fL (81-99); Mean Platelet Vol. 10.6 fl (6.2-12.0); POSITIVE MORPHOLOGY YES; Platelet Count 187 K/mm3 (150-450); RBC Distribution Width CV 20.7 % (11.6-14.6); RBC Distribution Width SD 71.6 fl (35.1-43.9); Red Blood Count 2.68 M/mm3 (4.2-5.4); White Blood Count 4.3 K/mm3 (4.4-11.0)
[2024-09-08 07:41] LABS: Scan Indicated on CBC? Y/N YES- FLAGS NOTED
[2024-09-08 08:00] LABS: Anion Gap 12 (5-15); BUN 11 mg/dL (4-19); BUN/Creat Ratio 14.4 RATIO (10-20); Calcium,Total 8.3 mg/dL (7.6-11.0); Chloride 104 mmol/L (98-108); Creatinine, Serum 0.78 mg/dL (0.70-1.20); EST Glomerular Filtration Rate 78 (>60); Glucose 86 mg/dL (70-99); Potassium 3.4 mmol/L (3.3-5.1); Sodium Level 141 mmol/L (133-145)
[2024-09-08 08:13] LABS: Differential Comment SCANNED
[2024-09-08] MEDS: Venlafaxine XR 37.5 MG Capsule PO (09:09)
[2024-09-08] MEDS: Pantoprazole Sodium 20 MG Tablet PO (09:09)
--- NOTE | 2024-09-08 11:32 | CASEMGMT ---
TAMIE DAN into pt room, pt sitting up in chair in no distress. Pt states she has a CPAP at home but no oxygen. Pt is currently being seen by [facility] for PT and OT but does not know the name of the agency. Pt states she has already been in contact with them and they know she is going home today. She does not want TAMIE DAN to contact them nor is she willing to give the phone number of agency. Pt states she is not sure if it is an agency or a private company. Pt states she lives alone but has hired privately someone who can help whenever needed. Pt states she has DME at home. She denies any homegoing needs at this time. She reports she feels safe to dc home.
--- NOTE | 2024-09-08 12:09 | DCINST_ITS ---
Discharge Instructions DC O2, CPAP, BIPAP needs Home O2 Discharge instructions: No Dressing / Incision Discharge Activity: - (Increase activity as tolerated) Follow Up Care Test Results: Test results from this visit will be discussed in further detail at your follow- up appointment, if applicable. Discharge Plan Admission Admit Date/Time: 09/07/24 18:44 Primary Reason for Your Visit: Low blood count Attending Provider: Emy Yee Primary Care Provider: Miladys Del Valle Consulting Providers: Aubrey Atkinson Instructions Patient Instructions: Blood Transfusion Adult Dc Additional Instructions / Restrictions: DISCHARGE INSTRUCTIONS PLEASE READ *Please take this with you to your next doctors appointment* -Would recommend lab work (CBC) to check your hemoglobin (blood counts) in 3-5 days through your primary care physician's office or oncology office. Please call their office upon discharge to obtain order for lab work. -Please follow-up with Dr. Hills as already scheduled -Please return to the emergency department if you have any vomiting blood, blood in your stool, abdominal pain, lightheadedness, significant shortness of breath or any other concerning signs or symptoms -Please call your primary care provider's office upon discharge to schedule a hospital follow up within 1 week. -For any concerning signs or symptoms please call 911 or proceed to the nearest emergency department Discharge Orders/Prescriptions Prescriptions: Continued fulvestrant [Faslodex] 250 mg/5 mL syringe 500 mg IM QMONTH Patient Comments: pt reports she rcvd this injection today 09/07. Rx Instructions: may divide dose into 2 equally divided injections; one into each buttock Ibrance 125 mg tablet 125 mg PO .COMPLEX Patient Comments: pt reports this med will be due tomorrow 09/08 Rx Instructions: 125 mg orally administer on days 1 through 21 of a 28-day treatment cycle; loratadine [Claritin] 10 mg tablet 10 mg PO DAILY PRN (Reason: allergy symptoms) cyanocobalamin (vitamin B-12) 5,000 mcg tablet,disintegrating 5,000 mcg PO DAILY elderberry fruit and flower 460-115 mg capsule 1 cap PO DAILY melatonin 3 mg tablet 6 mg PO HS PRN (Reason: sleep) multivitamin 1 EACH tablet 1 ea PO DAILY Patient Comments: supplement venlafaxine 37.5 MG capsule 37.5 mg PO DAILY Patient Comments: mood omeprazole 20 MG capsule 20 mg PO DAILY Patient Comments: acid reflux carvedilol 12.5 mg tablet See Rx Instructions .ROUTE .COMPLEX Qty: 180 3RF Dose Instruction: TAKE 1 TABLET BY MOUTH TWICE A DAY FOR HEART Rx Instructions: TAKE 1 TABLET BY MOUTH TWICE A DAY FOR HEART Referrals / Follow Up: Damaso Hills MD [Med Staff - Active Staff] - (As already scheduled) Miladys Del Valle DO [Primary Care Provider] - Within 1 Week Disposition Disposition (needs filled in before D/C Order can be placed): Home, Self Care
--- NOTE | 2024-09-08 12:13 | PCM.DC.SUM ---
Providers Date of Admission: 09/07/24 Date of Discharge: 09/08/24 Primary Care Physician: Dr. Miladys Del Valle DO Reason For Visit: ACUTE ON CHRONIC ANEMIA Diagnosis Discharge Diagnosis (1) Anemia requiring transfusions: Status: Acute Code(s): D64.9 - Anemia, unspecified Plan #Acute on chronic anemia require transfusion # Hypertension # GERD # Metastatic breast cancer Medications at Discharge Home Medications multivitamin 1 ea PO DAILY SUPPLEMENT 09/12/15 omeprazole 20 mg capsule,delayed release 20 mg PO DAILY GERD 09/12/15 venlafaxine 37.5 mg capsule,extended release 24 hr 37.5 mg PO DAILY ANXIETY 09/12/15 fulvestrant 250 mg/5 mL intramuscular syringe (Faslodex) 500 mg IM QMONTH 08/08/19 loratadine 10 mg tablet (Claritin) 10 mg PO DAILY PRN allergy symptoms 09/26/20 cyanocobalamin (vitamin B-12) 5,000 mcg disintegrating tablet 5,000 mcg PO DAILY 09/30/21 elderberry fruit 460 mg-elderberry flower 115 mg capsule 1 cap PO DAILY 09/30/21 melatonin 3 mg tablet 6 mg PO HS PRN sleep 09/30/21 palbociclib 125 mg tablet (Ibrance) 125 mg PO .COMPLEX 09/30/21 carvedilol 12.5 mg tablet See Rx Instructions .Route .COMPLEX #180 tabs 02/04/24 Hospital Course Summary of Care Provided Minutes Spent on Discharge: 25 Hospital Course: 79-year-old female with depression, GERD, breast cancer with recent hospitalization at 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 Her hemoglobin was 10.8 on admission to but dropped down to 7.3 by day of discharge post surgery. Follow-up labs showed hemoglobin of 5.1 prompting her to be referred to the ER. Patient's hemoglobin in the ED did confirm hemoglobin of 5.1 but stool occult negative and patient with normal bowel movements with no blood loss and no overt areas of blood loss, it is suspected that this is due to surgical losses and low production in setting of metastatic cancer given lack of blood loss from elsewhere. Patient given 3 L packed red blood cells with hemoglobin this a.m. of 8.8. Patient feeling better after transfusion, had 2-3 episodes of loose stool this a.m. without blood in her stool and no abdominal pain or nausea or vomiting, no new or acute complaints. She has no evidence of ongoing blood loss and patient already has appointment with Dr. Hills next week with oncology. Feel it is reasonable to discharge patient and advise outpatient labs and oncology follow-up with strict return precautions. Patient agreeable to this plan. Patient discharged home in stable condition. Discharge instructions as follows: -Would recommend lab work (CBC) to check your hemoglobin (blood counts) in 3-5 days through your primary care physician's office or oncology office. Please call their office upon discharge to obtain order for lab work. -Please follow-up with Dr. Hills as already scheduled -Please return to the emergency department if you have any vomiting blood, blood in your stool, abdominal pain, lightheadedness, significant shortness of breath or any other concerning signs or symptoms -Please call your primary care provider's office upon discharge to schedule a hospital follow up within 1 week. -For any concerning signs or symptoms please call 911 or proceed to the nearest emergency department Physical Exam Narrative General: Alert, oriented, no apparent distress HEENT: Atraumatic, normocephalic Eyes: Anicteric, normal conjunctiva, extraocular movements grossly intact Neck: Supple Respiratory: Clear to auscultation bilaterally, normal respiratory effort Cardiovascular: Regular rate and rhythm GI: Soft, nontender, nondistended Extremities: No edema Musculoskeletal: Moving all extremities Neuro: No overt focal neurological deficits Skin: No rashes appreciated, midline incision noted without any significant erythema or drainage Psych: Cooperative Weight / BMI Weight Weight: 90.4 kg Body Mass Index (BMI) 40.2 ABG / Lab / Microbiology Data 09/08/24 07:07 09/08/24 07:07 Laboratory: Laboratory Results - last 24 hr 09/07/24 16:30: WBC 4.8, RBC 1.44 L, Hgb 5.1 L*, Hct 16.6 L, MCV 115.3 H, MCH 35.4 H, MCHC 30.7 L, RDW Std Deviation 65.6 H, RDW Coeff of Isaias 16.1 H, Plt Count TNP, MPV TNP, Immature Gran % (Auto) 1.200 H, Neut % (Auto) 88.7 H, Lymph % (Auto) 5.0 L, [place] % (Auto) 3.9, Eos % (Auto) 1.0, Baso % (Auto) 0.2, Absolute Neuts (auto) 4.3, Absolute Lymphs (auto) 0.24 L, Nucleated RBC % 0, Differential Comment SCANNED, Platelet Estimate ADEQUATE, Polychromasia 2+, Anisocytosis 2+, Sodium 138, Potassium 3.8, Chloride 102, Carbon Dioxide 22.9, Anion Gap 14, BUN 13, Creatinine 0.81, Estim Creat Clear Calc 58.27, Est GFR (MDRD) Non-Af 75, BUN/Creatinine Ratio 15.7, Glucose 85, Calcium 8.6, Total Bilirubin 0.77, AST 33 H, ALT 9, Alkaline Phosphatase 108 H, Total Protein 5.6 L, Albumin 2.7 L, Globulin 2.9, Albumin/Globulin Ratio 1.0, Vitamin B12 885, Blood Type O POSITIVE, Antibody Screen NEGATIVE, Crossmatch See Detail 09/07/24 16:30: Crossmatch See Detail 09/08/24 07:07: WBC 4.3 L, RBC 2.68 L, Hgb 8.8 L, Hct 26.7 L, MCV 99.6 H D, MCH 32.8 H, MCHC 33.0 D, RDW Std Deviation 71.6 H, RDW Coeff of Isaias 20.7 H, Plt Count 187, MPV 10.6, Differential Comment SCANNED, Sodium 141, Potassium 3.4, Chloride 104, Carbon Dioxide 25.0, Anion Gap 12, BUN 11, Creatinine 0.78, Estim Creat Clear Calc 59.00, Est GFR (MDRD) Non-Af 78, BUN/Creatinine Ratio 14.4, Glucose 86, Calcium 8.3, Serum Folate 23.10 Microbiology: Microbiology 09/07/24 17:28 Stool Stool Occult Blood (GEGE) - Final D/C Instructions Discharge Diet: No restrictions DC O2, CPAP, BIPAP Needs Home O2 Discharge instructions: No Meaningful Use Info Meaningful Use Meaningful Use Diagnoses (Choose all that apply): None applicable Ischemic Stroke Statin Dosing Therapy Reference: STATIN DOSE THERAPY REFERENCE: * Patients > 75 years receive moderate or high dose statin therapy. * Patients 75 years or YOUNGER should receive HIGH intensity statin dose unless contraindicated. You will be required to document reason for non-treatment if statin daily dose does not meet guidelines. HIGH DOSE STATIN THERAPY DAILY Atorvastatin > than or = to 40 mg Rosuvastatin > than or = to 20 mg Amlodipine + Atorvastatin > than or = to 2.5/40 mg Ezetimibe + Simvastatin 10/80 mg Simvastatin 80mg Discharge Plan Admission Admit Date/Time: 09/07/24 18:44 Primary Reason for Your Visit: Low blood count Attending Provider: Emy Yee Primary Care Provider: Miladys Del Valle Consulting Providers: Aubrey Atkinson Instructions Patient Instructions: Blood Transfusion Adult Dc Additional Instructions / Restrictions: DISCHARGE INSTRUCTIONS PLEASE READ *Please take this with you to your next doctors appointment* -Would recommend lab work (CBC) to check your hemoglobin (blood counts) in 3-5 days through your primary care physician's office or oncology office. Please call their office upon discharge to obtain order for lab work. -Please follow-up with Dr. Hills as already scheduled -Please return to the emergency department if you have any vomiting blood, blood in your stool, abdominal pain, lightheadedness, significant shortness of breath or any other concerning signs or symptoms -Please call your primary care provider's office upon discharge to schedule a hospital follow up within 1 week. -For any concerning signs or symptoms please call 911 or proceed to the nearest emergency department Discharge Orders/Prescriptions Prescriptions: Continued fulvestrant [Faslodex] 250 mg/5 mL syringe 500 mg IM QMONTH Patient Comments: pt reports she rcvd this injection today 09/07. Rx Instructions: may divide dose into 2 equally divided injections; one into each buttock Ibrance 125 mg tablet 125 mg PO .COMPLEX Patient Comments: pt reports this med will be due tomorrow 09/08 Rx Instructions: 125 mg orally administer on days 1 through 21 of a 28-day treatment cycle; loratadine [Claritin] 10 mg tablet 10 mg PO DAILY PRN (Reason: allergy symptoms) cyanocobalamin (vitamin B-12) 5,000 mcg tablet,disintegrating 5,000 mcg PO DAILY elderberry fruit and flower 460-115 mg capsule 1 cap PO DAILY melatonin 3 mg tablet 6 mg PO HS PRN (Reason: sleep) multivitamin 1 EACH tablet 1 ea PO DAILY Patient Comments: supplement venlafaxine 37.5 MG capsule 37.5 mg PO DAILY Patient Comments: mood omeprazole 20 MG capsule 20 mg PO DAILY Patient Comments: acid reflux carvedilol 12.5 mg tablet See Rx Instructions .ROUTE .COMPLEX Qty: 180 3RF Dose Instruction: TAKE 1 TABLET BY MOUTH TWICE A DAY FOR HEART Rx Instructions: TAKE 1 TABLET BY MOUTH TWICE A DAY FOR HEART Referrals / Follow Up: Damaso Hills MD [Med Staff - Active Staff] - (As already scheduled) Miladys Del Valle DO [Primary Care Provider] - Within 1 Week Disposition Disposition (needs filled in before D/C Order can be placed): Home, Self Care Charges/Coding Visit Charges Inpatient E&M: 32101 Disch Hosp
[2024-09-08] MEDS: Carvedilol 12.5 MG Tablet PO (12:19)
--- NOTE | 2024-09-08 13:00 | CASEMGMT ---
Addendum entered by Patricia Madrid 09/08/24 14:39: Pt requested SW return to room to complete documents with pt dtr present. Pt completed HCPOA document naming dtr Michel as primary agent and son Carlin as alternate. Original document provided to pt, copies given to dtr for agents, copy placed on pt chart by SW. Pt reports no other needs at this time. ABBY Sánchez Original Note: SW met with pt to discuss HCPOA. Pt reports that she does not feel well and declined to complete at this time. Pt requested that SW leave paperwork and she will follow up with a notary or schedule a time to meet with SW. ABBY Sánchez
== END 2024-09-08 15:04 | disposition home or self-care (01) ==
LOC: ED 18:51 → MS3 19:40
PROVIDERS: Admitting Provider Hospitalist; Emergency Provider Emergency Medicine; PCP Internal Medicine; Referring Provider Hospitalist; Visit Provider Internal Medicine
DX: C50.919 Malignant neoplasm of unspecified site of unspecified female breast (principal); C78.5 Secondary malignant neoplasm of large intestine and rectum; E66.813 Obesity, class 3; Z68.41 Body mass index [BMI] 40.0-44.9, adult; D63.0 Anemia in neoplastic disease; K21.9 Gastro-esophageal reflux disease without esophagitis; E78.5 Hyperlipidemia, unspecified; R19.5 Other fecal abnormalities; Z79.818 Long term (current) use of other agents affecting estrogen receptors and estrogen levels; I10 Essential (primary) hypertension; Z87.891 Personal history of nicotine dependence; D53.9 Nutritional anemia, unspecified; Z79.899 Other long term (current) drug therapy
CPT/HCPCS: 36415; 36430; 80048; 80053; 82274; 82607; 82746; 85025; 85027; 86850; 86900; 86901; 86920; 99221; 99285; P9016; A4216; G0378

== ENCOUNTER 2024-09-26 17:38 | Inpatient (IN) | payer MEDICARE, OTHER, SELFPAY ==
[2024-09-26 17:44] VITALS: BP 184/63; PULSE 70; RESP 16; TEMP 36.8; O2SAT 2; BMI 35.4
[2024-09-26 17:53] VITALS: BP 184/63; PULSE 70; RESP 16; TEMP 36.6; O2SAT 97
[2024-09-26 20:05] VITALS: BP 193/62; PULSE 73
[2024-09-26] MEDS: Senna/Docusate Sodium 1 Tablet 2 TABLET PO (20:07)
[2024-09-26] MEDS: APIXABAN 5 MG TABLET PO (20:07)
[2024-09-26 22:00] VITALS: BP 193/62; PULSE 73; RESP 16; RESP 18; O2SAT 97
[2024-09-27] VITALS (11 sets, daily range): BP systolic 124–174; BP diastolic 40–49; PULSE 64–85; RESP 15–18; TEMP 35.5–36.7; O2SAT 95–98
[2024-09-27 06:57] LABS: Hematocrit 26.8 % (37-47); Hemoglobin 8.6 g/dL (12.0-15.0); Immature Granulocytes Count 0.130 X10^3/uL (0.0-0.0); Mean Corp Hgb Conc 32.1 g/dL (32-36); Mean Corpuscular Volume 102.7 fL (81-99); Mean Platelet Vol. 10.1 fl (6.2-12.0); NRBC Flagged by Analyzer 0 % (0-5); POSITIVE DIFFERENTIAL YES; POSITIVE MORPHOLOGY YES; Platelet Count 250 K/mm3 (150-450); RBC Distribution Width CV 20.4 % (11.6-14.6); RBC Distribution Width SD 74.4 fl (35.1-43.9); Red Blood Count 2.61 M/mm3 (4.2-5.4); White Blood Count 4.6 K/mm3 (4.4-11.0)
[2024-09-27 07:04] LABS: Differential Indicated SCAN CRITERIA MET
[2024-09-27 07:31] LABS: Anisocytosis 1+
[2024-09-27 07:32] LABS: Polychromasia 1+; Tear Drop Cell 1+
[2024-09-27 07:37] LABS: AST(SGOT) 20 U/L (<=31); Alanine Aminotransfer ALT/SGPT 10 U/L (<=34); Albumin, Serum 3.4 g/dL (3.4-4.8); Alkaline Phosphatase 89 U/L (35-104); Anion Gap 9 (5-15); BUN 9 mg/dL (4-19); BUN/Creat Ratio 10.9 RATIO (10-20); Calcium,Total 9.4 mg/dL (7.6-11.0); Carbon Dioxide 29.6 mmol/L (21.0-32.0); Chloride 99 mmol/L (98-108); Estimated Creatinine Clearance 53.60 ml/min (50-250); Globulin 2.5 g/dL (2.2-4.2); Glucose 105 mg/dL (70-99); Magnesium 2.0 mg/dL (1.5-2.2); Potassium 4.0 mmol/L (3.3-5.1)
--- NOTE | 2024-09-27 08:04 | EX.PCM.HP.RE ---
HPI - General General Date of Admission: 09/26/24 Date of Service: 09/27/24 Chief Complaint: Post stroke debility HPI Narrative BIANCA MORAES, is a 79 YO F with a PMH of [place], Breast CA treated with Faslodex and Ibrance (metastatic to right iliac bone, pleura and intestine), hiatal hernia, GERD, obesity, hyperlipidemia, depression, allergic rhinitis, mild tricuspid and mitral valve regurgitation, paroxysmal SVT, obstructive sleep apnea tobacco dependence in remission, chronic leukopenia, chronic anemia and recent (July 2024) ileocolic intussusception requiring ileocecectomy (BX + for metastatic breast CA) who presented to an outside emergency department on 09/18/2024 complaining of trouble speaking. NIH was [address] brain showed no acute findings. The symptoms resolved while she was in the emergency department. She was admitted to the hospital with a DX of TIA. UA in the ED showed + Leuk est and she was empirically started on an antibiotic. Urine culture had no significant growth and antibiotics were discontinued. CXR on 09/22/24 showed bilateral basilar airspace opacities and diffuse interstitial infiltrates bilaterally. CTA of the chest showed mucous plugging with consolidation in the right lower lobe and a nodular density in the right lower lobe measuring 0.4 cm. There were bilateral pleural effusions and she had a small volume of ascites and anasarca. There were scattered sclerotic foci throughout the spine and ribs likely representing metastatic disease. She was diuresed and hypoxia improved and SOB resolved. Carotid US showed less than 50% stenosis on the internal carotid arteries. ECHO revealed a negative bubble study. The left ventricular ejection fraction was estimated at 60 to 65%. She had grade 1 diastolic dysfunction. There was moderately increased septal and mildly increased posterior left ventricular wall thickness. Left atrial size was reported as normal. Right atrial size was also normal. There was some sclerosis of the aortic valve but no stenosis. Initial MRI showed punctate foci of diffusion restriction within the right paramedian parietal lobe and right occipital lobe. There was no hemorrhage. And she was continued on ASA and a statin. Repeat MRI done 09/21/24 (due to increasing deficits) showed new strokes in bilateral parietal lobes and left cerebellar hemisphere. She was started on anticoagulation. On Eliquis at admission to in rehab. Oncologist-Dr. Damaso Hills [facility] Medical History (Updated 09/27/24 @ 15:[address] Isela Huggins, DO) History of cardiac dysrhythmia Grade I diastolic dysfunction Mild left atrial enlargement History of pulmonary hypertension Chronic leukopenia Obstructive sleep apnea History of depression Pleural effusion Hiatal hernia Breast cancer GERD (gastroesophageal reflux disease) Hyperlipidemia Essential (primary) hypertension Home Medications ?Medication ?Instructions ?Recorded ?Last Taken ?Type multivitamin 1 ea PO DAILY SUPPLEMENT 09/12/15 Unknown History venlafaxine 37.5 mg 37.5 mg PO DAILY ANXIETY 09/12/15 09/26/24 History capsule,extended release 24 hr fulvestrant 250 mg/5 mL 500 mg IM QMONTH hormon therapy 08/08/19 09/07/24 History intramuscular syringe (Faslodex) Held on 09/26/24. Instructions: MD Ordered cyanocobalamin (vitamin B-12) 5,000 mcg PO DAILY supplement 09/30/21 Unknown History 5,000 mcg disintegrating tablet Held on 09/26/24. Instructions: MD Ordered elderberry fruit 460 mg-elderberry 1 cap PO DAILY supplement 09/30/21 Unknown History flower 115 mg capsule Held on 09/26/24. Instructions: MD Ordered palbociclib 125 mg tablet (Ibrance) 125 mg PO DAILY supplement 09/30/21 Unknown History Held on 09/26/24. Instructions: MD Ordered acetaminophen 500 mg tablet 1,000 mg PO Q6H PRN pain 09/26/24 Unknown History apixaban 5 mg tablet (Eliquis) 5 mg PO BID blood thinner 09/26/24 09/26/24 History aspirin 81 mg tablet 81 mg PO DAILY heart health 09/26/24 09/26/24 History atorvastatin 40 mg tablet (Lipitor) 40 mg PO QHS cholesterol 09/26/24 09/25/24 History carvedilol 12.5 mg tablet 25 mg PO BID blood pressure 09/26/24 09/26/24 History fluorometholone 0.1 % eye 1 drp RIGHT EYE TID FML 09/26/24 09/26/24 History drops,suspension Held on 09/26/24. Instructions: MD Ordered hydralazine 50 mg tablet 50 mg PO TID blood pressure 09/26/24 09/26/24 History losartan 100 mg tablet (Cozaar) 100 mg PO DAILY blood pressure 09/26/24 Unknown History ondansetron 4 mg disintegrating 4 mg PO Q8H PRN nausea and vomiting 09/26/24 Unknown History tablet pantoprazole 40 mg granules 40 mg PO DAILY reflux 09/26/24 Unknown History delayed-release for susp in packet (Protonix) sucralfate 1 gram tablet (Carafate) 1 g PO Q8H stomach 09/26/24 Unknown History Allergy/AdvReac Type Severity Reaction Status Date / Time Iodinated Contrast Media Allergy Intermediate Rash Verified 09/07/24 15:18 (Iodinated Contrast- Oral and IV Dye) Sulfa (Sulfonamide Allergy Rash Verified 09/07/24 15:18 Antibiotics) Family History Mother CAD (coronary artery disease) Surgical History History of intussusception of intestine History of lung surgery History of left knee replacement History of hernia repair (~07/2016) History of breast reconstruction History of breast biopsy History of total right knee replacement History of partial mastectomy of right breast Status post wrist surgery History of total hysterectomy Social History (Updated 09/27/24 @ 14:[address] Isela Huggins DO) household members: none housing: house number of children: 2 Smoking Status: Former smoker how long ago did patient quit smoking: > 20 years ago alcohol intake: current alcohol intake frequency: a few times a month details: occasional substance use type: does not use ROS Constitutional Constitutional: Reports change in weight, fatigue, poor appetite and weakness; Denies chills, fever(s), headache(s) or night sweats Eyes Eyes: Denies blurry vision, change in vision, eye pain or loss of vision ENT HEENT: Reports dysphagia and other Details: having trouble swallowing pills ; Denies abnormal hearing, headache(s), hearing loss, nasal congestion or sore throat Cardiovascular Cardiovascular: Reports orthopnea; Denies chest pain, dyspnea on exertion, edema, lightheadedness, palpitations, paroxysmal nocturnal dyspnea or syncope Respiratory/Chest Respiratory/Chest: Reports shortness of breath with exertion; Denies cough, dyspnea, shortness of breath at rest or wheezing Gastrointestinal Gastrointestinal: Reports constipation; Denies abdominal pain, diarrhea, dyspepsia, hematemesis, hematochezia, nausea or vomiting Genitourinary Genitourinary: Reports urinary incontinence; Denies dysuria, hematuria, nocturia, urinary frequency, urinary hesitancy or urinary urgency Musculoskeletal Musculoskeletal: Denies back pain, joint pain, joint swelling, myalgias or neck pain Integumentary Integumentary: Denies jaundice, pruritus or rash Neurologic Neurologic: Reports confusion and other Details: She has noticed that her ability to thought process is slower than it was prior to the strokes. ; Denies disequilibrium, dizziness, focal weakness, headache(s), paresthesias, seizures or tremor(s) Psychiatric Psychiatric: Reports anxiety, change in appetite, depression and difficulty concentrating; Denies homicidal ideation or suicidal ideation Endocrine Endocrinology: Denies change in body appearance, polydipsia or polyuria Hematologic/Lymphatic Hematologic/Lymphatic: Reports easy bruising; Denies easy bleeding or lymphadenopathy Allergic/Immunologic Allergic/Immunologic: Denies rhinitis, eczemia or asthma Vital Signs Vital Signs Vital Signs: 09/26/24 17:44 09/26/24 17:53 09/26/24 20:05 Temperature 98.2 F 98 F Temperature Source Temporal Temporal Pulse Rate 70 70 73 Pulse Strength Respiratory Rate 16 16 Respiratory Effort Respiratory Depth Respiratory Pattern Blood Pressure 184/63 H 184/63 H 193/62 H Blood Pressure Mean 103 103 Blood Pressure Source Monitor Monitor Blood Pressure Position Sitting Sitting Blood Pressure Location Left Arm Left Arm Pulse Ox 2 97 Oxygen Delivery Method Nasal Cannula Nasal Cannula Oxygen Flow Rate (L/min) 2 09/26/24 22:00 09/26/24 22:00 09/26/24 22:00 Temperature Temperature Source Pulse Rate 73 73 Pulse Strength Normal (2+) Respiratory Rate 16 18 Respiratory Effort Normal Non-Labored Respiratory Depth Normal Respiratory Pattern Normal Blood Pressure 193/62 H Blood Pressure Mean 105 Blood Pressure Source Monitor Blood Pressure Position Sitting Blood Pressure Location Left Arm Pulse Ox 97 97 Oxygen Delivery Method Room Air Nasal Cannula Oxygen Flow Rate (L/min) 2 09/27/24 06:00 09/27/24 06:09 Temperature 97.8 F Temperature Source Oral Pulse Rate 85 85 Pulse Strength Respiratory Rate 16 Respiratory Effort Respiratory Depth Respiratory Pattern Blood Pressure 174/47 H 174/47 H Blood Pressure Mean 89 Blood Pressure Source Monitor Blood Pressure Position Supine Blood Pressure Location Left Arm Pulse Ox 95 Oxygen Delivery Method Nasal Cannula Oxygen Flow Rate (L/min) 2 Weight Weight: 175 lb 4.28 oz Body Mass Index (BMI) 35.4 Indicators for Scoring Admitted with or Primary Diagnosis of CVA/Stroke: Yes Hx of CVA/Stroke: Yes Modified [place] Score MRS Score at time of Evaluation: 4-Moderate/severe disability NIHSS NIHSS 1a. Level of Consciousness: 0 - Alert; keenly responsive 1b. LOC Questions: 0 - Answers BOTH questions correctly 1c. LOC Commands: 0 - Performs BOTH tasks correctly 2. Best Gaze: 0 - Normal 3. Visual: 0 - No visual loss 4. Facial Palsy: 0 - Normal symmetrical movements 5a. Left Arm: 0 - No drift; arm holds 90 (or 45) degrees for full 10 seconds 5b. Right Arm: 0 - No drift; arm holds 90 (or 45) degrees for full 10 seconds 6a. Left Le - No drift; leg holds 30-degree position for full 5 seconds 6b. Right Le - No drift; leg holds 30-degree position for full 5 seconds 7. Limb Ataxia: 0 - Absent 8. Sensory: 0 - Normal; no sensory loss 9. Best Language: 0 - No aphasia; normal 10. Dysarthria: 0 - Normal 11. Extinction and Inattention: 0 - No abnormality Total: 0 Stroke Questions Stroke Team Activated: No Physical Exam Const alert, oriented x3 and no apparent distress Constitutional Narrative: Making good eye contact, appropriate. General Appearance: cooperative and comfortable HEENT HEENT Narrative: Dry mucous membranes. No evidence of thrush. Eyes PERRL, EOMs intact bilaterally, conjunctivae normal and no scleral icterus Eyes Narrative: No discharge from the eyes and no mattering of the eyelashes. No visual field cuts. Smooth pursuits, no nystagmus. General Eye: normal appearance of both eyes Neck no lymphadenopathy, supple, no JVD, No nodes and no carotid bruits General: trachea midline; Negative for anterior neck swelling or torticollis Chest Chest: symmetrical chest wall rise Resp normal respiratory effort and no use of accessory muscles Resp Narrative: Not tachypneic and no conversational dyspnea. She desaturates on RA with exertion. Diminished BS's in the Left base. No crackles and no wheezing. Cardio regular rate, regular rhythm, S1 normal heart sound, S2 normal heart sound, no rub and no gallops Cardio Narrative: She has a systolic MM at the second RICS with radiation to the LVOT, LLSB and the apex. Has aortic sclerosis on recent ECHO. No . No ectopy GI normal to inspection, nondistended, normoactive bowel sounds and non-tender GI Narrative: No guarding with palpation. Healing cicatrix on the midline of the abd due to recent ileocecectomy. She has mild tenderness with palpation around the incision.......... not having pain when no I am not pressing on it. no CVA tenderness Narrative: Denies dysuria. She is incontinent of urine. Back/Spine no CVA tenderness Extremity no clubbing, cyanosis or edema Extremity Narrative: She has hyperpigmentation of the distal LE's and stasis dermatitis with flakey skin. Skin Skin Narrative: No rashes, no skin breakdown. Neuro oriented x3, CN's II-XII intact bilaterally and no focal motor deficits Neuro Narrative: Generalized weakness. Tongue protrudes on the midline. No dysarthria. No aphasia. No visual field cuts. No drift with any of the extremities. No ataxia. No extinction. Intact sensation to pinprick throughout. She is right-hand dominant. Slow to process thoughts. Deficits in higher levels of cognitive dysfunction. Impulsive. Incontinent of both urine and stool. Psych cooperative, denies hallucinations, denies homicidal ideation and denies suicidal ideation Psych Narrative: She makes good eye contact with me most of the time. She is impulsive. Slow to respond at times and recognizes her thinking has been affected by the strokes. She has a flat affect. She also tells me that she feels anxious.......wondering if she is going to be able to go back to living independently when she leaves rehab. Worried about having more strokes. Worried that the CA seems to be spreading and will she have to change treatment. Appearance: grossly normal, appropriate and well kempt Attitude: calm and engaged Activity / Motor Behavior: appropriate eye contact; Negative for psychomotor agitation Speech: No pressured, No slurred and other She has delay in answering questions secondary to cognitive slowing related to recent multiple embolic CVAs. Mood & Affect: depressed and flat affect Thought Process: confused, No flight of ideas and No illogical Attention / Concentration: other And attention and concentration are impaired. Memory / Cognition: cognition impaired Results Lab / Micro Data 09/27/24 06:50 09/27/24 06:50 Labs: Laboratory Results - last 24 hr 09/27/24 06:50: WBC 4.6, RBC 2.61 L, Hgb 8.6 L, Hct 26.8 L, MCV 102.7 H, MCH 33.0 H, MCHC 32.1, RDW Std Deviation 74.4 H, RDW Coeff of Isaias 20.4 H, Plt Count 250, MPV 10.1, Immature Gran % (Auto) 2.800 H, Neut % (Auto) 70.4 H, Lymph % (Auto) 7.8 L, [place] % (Auto) 15.4 H, Eos % (Auto) 1.7, Baso % (Auto) 1.9 H, Absolute Neuts (auto) 3.3, Absolute Lymphs (auto) 0.36 L, Nucleated RBC % 0, Platelet Estimate A, Polychromasia 1+, Anisocytosis 1+, Tear Drop Cells 1+, Ovalocytes 1+, Sodium 138, Potassium 4.0, Chloride 99, Carbon Dioxide 29.6, Anion Gap 9, BUN 9, Creatinine 0.82, Estim Creat Clear Calc 53.60, Est GFR (MDRD) Non-Af 74, BUN/Creatinine Ratio 10.9, Glucose 105 H, Calcium 9.4, Phosphorus 2.5 L, Magnesium 2.0, Total Bilirubin 0.60, AST 20, ALT 10, Alkaline Phosphatase 89, Total Protein 5.9, Albumin 3.4, Globulin 2.5, Albumin/Globulin Ratio 1.4 Assessment & Plan Assessment/Plan (1) Debility: (2) Embolic stroke: QUALIFIERS: Precerebral and cerebral artery: unspecified cerebral artery Qualified Code(s): I63.40 - Cerebral infarction due to embolism of unspecified cerebral artery PLAN: Multiple BL CVA's (3) History of breast cancer: PLAN: with mets to bone (R ilium, ribs, spine), pleura and intestine. 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 Never really recovered from this prior to recent strokes. (9) Generalized muscle weakness: (10) Exercise hypoxemia: PLAN: Is not on oxygen while awake at home. (11) Anxiety: (12) History of depression: PLAN: Not adequately controlled on Effexor XR and anxiwty is increased with Effexor. (13) Anemia requiring transfusions: (14) Chronic leukopenia: (15) Hypophosphatemia: (16) Obstructive sleep apnea: (17) Pleural effusion: PLAN: BL on CT chest done at [facility]. Has had a pleurodesis on the R in the past. Now has Left pleural effusion also. (18) GERD (gastroesophageal reflux disease): QUALIFIERS: Esophagitis presence: esophagitis presence not specified Qualified Code(s): K21.9 - Gastro-esophageal reflux disease without esophagitis (19) Hyperlipidemia: QUALIFIERS: Hyperlipidemia type: unspecified Qualified Code(s): E78.5 - Hyperlipidemia, unspecified (20) Essential (primary) hypertension: (21) History of cardiac dysrhythmia: PLAN: PAC's, PVC's and atrial tachycardia. On Coreg. (22) Grade I diastolic dysfunction: (23) Mild left atrial enlargement: PLAN: Not present on most recent ECHO at [facility]. (24) History of pulmonary hypertension: PLAN: On ECHO in 2019....... PA systolic was estimated at 40 at that time. PLAN: Plan PLAN PT for gait stability OT for ADL's ST for evaluation Analgesics as needed Bowel protocol Fall precautions Assess for Anxiety/Depression GI prophylaxis -pantoprazole DVT prophylaxis - Continue apixaban 5 mg p.o. twice daily Follow up with oncology, neurology, PCP following DC from [facility] Rehab AM lab including CMP, CBC, Mag and Phos - all personally reviewed. Iron, iron saturation and B12. Folate was normal in August 2024. Discontinue Effexor. It is not helping with depression and it has increased anxiety, caused constipation and suppressed appetite. Start sertraline 50 mg p.o. daily.......... increased to 100 mg daily after 1 week if no adverse side effects. Start Klonopin 0.5 mg twice daily......... 1 dose of alprazolam 0.125 mg now for acute anxiety. Add clonidine 0.1 mg p.o. every 8 hours as needed systolic greater than 170 or diastolic greater than 85. I strongly suspect the elevated BP is related to uncontrolled anxiety. Consider palliative care consult prior to DC from rehab No need to tx hypophosphatemia at this time......she is asymptomatic Continue Ibrance and Faslodex for now. Will follow-up with oncology postdischarge from rehab PA and lateral chest x-ray today Have nursing check a pulse ox on room air at rest and after exertion Check vital signs 4 times daily while awake for the next 72 hours Charges/Coding Visit Charges Inpatient E&M: 67855 Init Hosp L3
[2024-09-27] MEDS: APIXABAN 5 MG TABLET PO ×2 (08:24→20:31)
--- NOTE | 2024-09-27 10:09 | REHABEVAL_ITS ---
Admission Information Primary Diagnosis:: Poststroke debility - multiple embolic CVA's BL Status Changes from Prescreening?: No changes Identified Actual Problem List:: Cognitve Impr/Memory Loss, Depression, Bladder Incontinence, Bowel, Incontinence, Alteration in Sleep, Mobility Impaired, Self Care Deficit, BP, Hypertension, Alteration/ Air Exchange and Alteration-Leisure Activ. Potential Problem List:: DVT, Bleeding, Infection, UTI, Aspiration, Falls, Skin Integrity and Depression Risk of Complications DVT: MARCUS Hose and - (Apixaban 5 mg twice daily) Bleeding: Monitor Lab Values, Nursing to Teach Precautions for anti-coagulation therapy., Wound, if applicable, to be assessed every shift. and Stroke patients assessed for lethargy or change in status. Infection: Clinical Staff to Monitor for S/S of infection: and S/S of infection include fever, redness, warmth, etc. Urinary Tract Infection: Monitor for frequency, burning, discomfort, or inconti nence. and Nursing will obtain urine sample for urinalysis and C&S when ordered. Aspiration: Clinical staff will monitor for coughing, drooling, congestion., Speech will evaluate swallowing and dsyphasia. and Nursing will monitor patient swallowing during meals. Falls: Patient will be evaluated for Fall Precautions and Patient will be placed on Fall Precautions as indicated per protocol. Skin Breakdown: Nursing will assess skin daily using assessment tool. and Nursing will place on Skin Breakdown Precautions as indicated. Pain: Clinical staff will assess patient's pain level per protocol., Medications will be given, if needed, and the pain level reassessed. and Other methods: Massage, distraction, decrease stimulus, etc. used PRN. Plan of Care Patient requires physician specializing in physical medicine and rehab oversight to provide close medical supervision of rehab issues including: Pain Management, Sleep Problems, Bowel and Bladder, Medical and co-morbidity Management, DVT prophylaxis, Rehabilitation Leadership and Coordination of treatment team Patient needs Physical Therapy: For a minimum of 1 hour and At least 5 out of 7 days Patient needs Physical Therapy to improve:: Mobility, Strengthening, Transfers, Stretching, ROM, Endurance, Stairs, Gait and Balance Patient needs Occupational Therapy: For a minimum of 1 hour and At least 5 out of 7 days Patient needs Occupational Therapy to improve ADL's incl.: Eating, Grooming, Bathing, Dressing, Toileting, Toilet transfers, Community Reintegration, Higher functioning activities, Household tasks, Adaptive Equipment, Splinting and Other activities as determined Patient requires speech therapy: For a minimum of 1 hour and At least 5 out of 7 days Patient requires speech therapy for: Swallowing, Cognition, Language Skills and Compensatory Strategies Patient requires 24/ Rehabilitation Nursing for: Pain Issues, Identifying and preventing risk factors, Monitoring and reporting current medical conditions, Assisting with ambulation, transfer, and all ADL's, Teaching patients about disease process and medications, Family teaching, Providing safe environment, Bowel and Bladder Issues, Skin integrity and Medication Management Patient needs Stand Up Forklift Operator/ Case Management for: Discharge Planning, Arranging Home Equipment or Services and Family Interventions Patient needs Dietary and Nutrition Services for: Adequate Nutrition, Nutritional Supplements and Nutritional Education Goals Goals Patient will remain: free from falls Patient will perform eating at: MOD I level of assist. Patient will perform bed mobility at: MOD I level of assist. Patient will complete transfers from bed to chair at: MOD I level of assist. Patient will ambulate: - (255 feet with least restrictive device at mod I on various surfaces) Patient will complete upper body dressing at: MOD I level of assist. Patient will complete lower body dressing at: MOD I level of assist. (With adaptive equipment as needed) Patient will complete toilet transfer at: MOD I level of assist. Patient will complete toileting at: MOD I level of assist. Patient will perform bathing at: MOD I level of assist. (With adaptive equipment as needed for lower body bathing) Patient will perform Tub/Shower transfer at: - (Supervision initially for the first 1 to 2 weeks) Patient will complete grooming at: MOD I level of assist. (While standing at the sink) Patient will complete home management skills at: MOD I level of assist. Patient will achieve: - (2-3 steps with 1 handrail at standby assist) Patient will have pain level of: of 3 or less Patient's skin will: remain intact Patient will receive: adequate nutrition. Discharge Planning Pt Prognosis for Sig. Practical Improv. w/in Reasonable Time: Good Estimated Length of stay (days): 21 Anticipated D/C Destination: TBD Was Preadmission Assessment Accurate?: Yes
--- NOTE | 2024-09-27 10:18 | RAD_ITS ---
EXAM: XR Chest, 2 Views CLINICAL INDICATION: PLEURAL EFFUSIONS/HYPOXIA TECHNIQUE: Frontal and lateral views of the chest. COMPARISON: No relevant prior studies available. FINDINGS: LUNGS AND PLEURAL SPACES: Left pleural effusion. HEART: Cardiomegaly with mild congestion. MEDIASTINUM: Unremarkable. Normal mediastinal contour. BONES/JOINTS: Unremarkable. No acute fracture. RAD/Chest PA and Lateral IMPRESSION: 1. Cardiomegaly with mild congestion. 2. Left pleural effusion. [facility]
--- NOTE | 2024-09-27 10:18 | RAD_ITS ---
EXAM: XR Chest, 2 Views CLINICAL INDICATION: PLEURAL EFFUSIONS/HYPOXIA TECHNIQUE: Frontal and lateral views of the chest. COMPARISON: No relevant prior studies available. FINDINGS: LUNGS AND PLEURAL SPACES: Left pleural effusion. HEART: Cardiomegaly with mild congestion. MEDIASTINUM: Unremarkable. Normal mediastinal contour. BONES/JOINTS: Unremarkable. No acute fracture. RAD/Chest PA and Lateral IMPRESSION: 1. Cardiomegaly with mild congestion. 2. Left pleural effusion. Reading [facility]
[2024-09-27 11:05] LABS: Ferritin 886 ng/mL (22-378); Iron 36 ug/dL (50-170); Iron Binding Capacity,Unsat 119 ug/dL (228-428); Vitamin B12 479 pg/mL (180-914)
[2024-09-27 11:40] LABS: Pro- Brain NATRIURETIC PEPTIDE 1299 pg/mL (<=1800)
[2024-09-27 14:09] LABS: Iron Binding Capacity,Total 155 ug/dL (250-450)
[2024-09-27 16:42] LABS: Mucous, Urine 0 SEEN /hpf (<or=2+)
[2024-09-27 16:54] LABS: Color, Urine Yellow (Yellow); Glucose, Dipstick Normal (Normal); Ketone-Dipstick Negative (Negative); Leukocyte Esterase-Dipstick 25 /ul (Negative); Nitrite-Dipstick Negative (Negative); Occult Blood-Urine Negative /ul (Negative); Protein-Dipstick 30 mg/dl (Negative); Specific Gravity, Urine 1.010 (1.002-1.030); Urine Bilirubin Dipstick Negative (Negative)
[2024-09-27 17:42] LABS: Red Blood Cells-Urine 0-5 SEEN /hpf (0-5); Squamous Epithelial Cells - UA 0-5 SEEN /hpf (5-10)
[2024-09-27] MEDS: Senna/Docusate Sodium 1 Tablet 2 TABLET PO (20:30)
[2024-09-28] VITALS (10 sets, daily range): BP systolic 138–163; BP diastolic 35–73; PULSE 72–79; RESP 15–18; TEMP 36.8–37; O2SAT 92–97; BMI 35.4
[2024-09-28] MEDS: APIXABAN 5 MG TABLET PO ×2 (08:20→20:36)
[2024-09-28] MEDS: Senna/Docusate Sodium 1 Tablet 2 TABLET PO (08:20)
--- NOTE | 2024-09-28 09:36 | PN_ITS ---
Subjective Subjective Afebrile VSS -orthostatics were negative yesterday. Blood pressure over the past 24 hours has ranged from 133/41 to 159/45. Heart rate has ranged from 60-74. Maintaining appropriate oxygen saturation on RA Oral intake - FOOD and 50 to 74% of her last 2 meals. FLUIDS good..... She took in 1800 cc yesterday and had 700 out for a balance of +1100. Postvoid residuals x 2 are both less than 10. Discussed with nursing - no problems that need addressed. Occasional urine incontinence........was able to void twice yesterday afternoon. slept well last night. Reviewed the THERAPY notes Medication list reviewed. UA yesterday had 0-5 WBCs and no bacteria. She had a negative Hemoccult stool in mid August. Hemoglobin yesterday was 8.6 which is stable since mid August when it was 8.8. Percent iron saturation yesterday was 20.2% and her ferritin was 886. B12 and serum folate are both within normal limits. Tells me that she laid flat in bed last night to sleep and she had no paroxysmal nocturnal dyspnea or orthopnea. She denies chest pain and also denies palpitations, lightheadedness, cough, nausea/vomiting/abdominal pain, dysuria and calf pain. Seems to be tolerating Klonopin 0.5 mg without excessive drowsiness. She has had 2 doses now. Slept better last night. Denies feeling anxious today. Objective Data Objective Data Vital Signs: Vital Signs Temp Pulse Resp BP Pulse Ox O2 Del Method O2 Flow Rate 98.2 F 74 15 159/45 H 97 Nasal Cannula 2 09/28/24 05:20 09/28/24 05:20 09/28/24 05:20 09/28/24 05:20 09/28/24 06:55 09/28/24 08:26 09/28/24 08:26 Oxygen Flow Rate (L/min) 2 Oxygen Delivery Method Nasal Cannula Weight: 175 lb 4.28 oz Body Mass Index (BMI) 35.4 Intake & Output: Intake and Output for Last 24 Hours 09/26/24 09/27/24 09/28/24 23:59 23:59 23:59 Intake Total 1800 / 2040 340 / 340 Output Total 700 / 700 600 / 600 Balance 1100 / 1340 -260 / -260 Lab / Micro Data 09/27/24 06:50 09/27/24 06:50 Labs: Laboratory Results - last 24 hr 09/27/24 06:50: Iron 36 L, TIBC 155 L, Iron Saturation 23.2, Unsaturated IBC 119 L, Ferritin 886 H, NT pro BNP II 1299, Vitamin B12 479 09/27/24 16:25: Urine Color Yellow, Urine Clarity Clear, Urine pH 7.0, Ur Specific Dawn 1.010, Urine Protein 30 H, Urine Glucose (UA) Normal, Urine Ketones Negative, Urine Occult Blood Negative, Urine Nitrite Negative, Urine Bilirubin Negative, Urine Urobilinogen 4 H, Ur Leukocyte Esterase 25 H, Urine RBC 0-5 SEEN, Urine WBC 0-5 SEEN, Ur Squamous Epith Cells 0-5 SEEN, Urine Bacteria 0 SEEN, Urine Mucus 0 SEEN Radiography Diagnostic Testing: Radiology Impression Chest X-Ray 09/27/24 10:18 IMPRESSION: 1. Cardiomegaly with mild congestion. 2. Left pleural effusion. Reading Location: [facility] Physical Exam Const alert and oriented x3 Constitutional Narrative: Reading on her nook when I entered the room. Seems calmer today. General Appearance: cooperative HEENT moist oral mucous membranes Resp normal respiratory effort and clear to auscultation bilaterally Resp Narrative: Diminished in the left base. No crackles, no wheezes. No conversational dyspnea. Not tachypneic. She frequently has her oxygen on her neck, her forehead, on the top of her nose and not in her nose. Cardio regular rate and regular rhythm Cardio Narrative: Denies palpitations. No gallop. No change in the systolic murmur heard best at the second right intercostal space with radiation to the left chest. Event monitor is in place. She has an appt to follow up with cardiology CLAIMS ADJUSTER SUPERVISOR on 10/28/24. GI normal to inspection, nondistended, normoactive bowel sounds and soft to palpation GI Narrative: No guarding with palpation but does have some mild tenderness with palpation around the recent abdominal incision. Extremity no calf tenderness General Extremity: Negative for edema Assessment & Plan Assessment/Plan (1) Debility: (2) Embolic stroke: QUALIFIERS: Precerebral and cerebral artery: unspecified cerebral artery Qualified Code(s): I63.40 - Cerebral infarction due to embolism of unspecified cerebral artery PLAN: Multiple BL CVA's (3) History of breast cancer: PLAN: with mets to bone (R ilium, ribs, spine), pleura and intestine. 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 (10) Anxiety: (11) History of depression: PLAN: Not adequately controlled on Effexor XR and anxiwty is increased with Effexor. (12) Anemia requiring transfusions: (13) Chronic leukopenia: (14) Pleural effusion: PLAN: BL on CT chest done at [facility]. Has had a pleurodesis on the R in the past. Now has Left pleural effusion also. (15) Essential (primary) hypertension: (16) History of cardiac dysrhythmia: PLAN: PAC's, PVC's and atrial tachycardia. On Coreg. (17) Grade I diastolic dysfunction: (18) Mild left atrial enlargement: PLAN: Not present on most recent ECHO at [facility]. (19) History of pulmonary hypertension: PLAN: On ECHO in 2019....... PA systolic was estimated at 40 at that time. PLAN: Plan 1. Continue therapy 2. No changes to the drug regimen today. 3. Continue to monitor the blood pressure closely. No indication to increase medication at this time. Diastolic is always within goal of the systolic is just mildly elevated....... may be related to stress/anxiety. 4. Check a pulse ox on room air at rest in her room. If this is 90% or above we will limit oxygen use to with exertion. 5. Recheck a CBC and a BMP next Thursday. 6. Will need to follow up with neurology post DC. 7. would likely benefit from psychotherapy for anxiety/depression. I talked with rachell Pearson last night and they actually have someone from Oncology who seems to be doing palliative care for them. All questions were answered. Michel told me she is aqware that she has mets to the spine and ribs and this is not new. Charges/Coding Visit Charges Inpatient E&M: 65349 Subs Hosp L1
[2024-09-29] VITALS (9 sets, daily range): BP systolic 147–166; BP diastolic 43–79; PULSE 65–78; RESP 16; TEMP 36.6–36.7; O2SAT 94–98; BMI 35.4
--- NOTE | 2024-09-29 07:53 | PCM.PROGNOTE ---
Subjective Subjective Marina was seen on TEAM rounds. Daughter Michel and son-in-law Rob were present in the room for rounds. All questions were answered to their satisfaction. Afebrile VSS -blood pressure over the past 24 hours has ranged from 139/43 to 162/79. The heart rate has ranged from 65-79. Maintaining appropriate oxygen saturation on RA at rest. Still requiring O2 with exertion. Oral intake - FOOD good FLUIDS good No urinary incontinence reported since 09/27/24 in the AM Last bowel movement was yesterday. Discussed with nursing - no problems that need addressed. Slept well last night. Reviewed the THERAPY notes Medication list reviewed. And tells me that she slept well last night. She feels rested this morning. She is still feeling a little anxious. Tolerating Klonopin 0.5 mg twice daily with no adverse side effects. Very alert today. Denies chest pain, shortness of breath, palpitations, lightheadedness, pain. she is feeling a little tired today........she is not a morning person and the Klonopin is likely contributing but it has helped considerably with the BP control and she is sleeping well at night now. No adverse RX's to the Sertraline. Objective Data Objective Data Vital Signs: Vital Signs Temp Pulse Resp BP Pulse Ox O2 Del Method O2 Flow Rate 97.9 F 78 16 162/79 H 98 Room Air 2 09/29/24 06:00 09/29/24 06:00 09/29/24 06:00 09/29/24 06:00 09/29/24 06:00 09/29/24 06:00 09/28/24 21:00 Oxygen Flow Rate (L/min) 2 Oxygen Delivery Method Room Air Weight: 175 lb 4.28 oz Body Mass Index (BMI) 35.4 Intake & Output: Intake and Output for Last 24 Hours 09/27/24 09/28/24 09/29/24 23:59 23:59 23:59 Intake Total 1800 / 2040 1700 / 1700 280 / 280 Output Total 700 / 700 1280 / 1280 200 / 200 Balance 1100 / 1340 420 / 420 80 / 80 Lab / Micro Data 09/27/24 06:50 09/27/24 06:50 Physical Exam Const alert and oriented x3 Constitutional Narrative: Was working with ST when I entered the room. She is very alert today and when I ask her a question there is no pause/delay before she answers me. Definitely thought processing more quickly. General Appearance: cooperative HEENT moist oral mucous membranes Resp normal respiratory effort and clear to auscultation bilaterally Resp Narrative: Diminished in the left base. No crackles, no wheezes. No conversational dyspnea. Not tachypneic. Cardio regular rate and regular rhythm Cardio Narrative: Denies palpitations. No gallop. No change in the systolic murmur heard best at the second right intercostal space with radiation to the left chest. Event monitor is in place. She has an appt to follow up with cardiology ART OBJECTS SALESPERSON on 10/28/24. GI normal to inspection, nondistended, normoactive bowel sounds and soft to palpation GI Narrative: No guarding with palpation but does have some mild tenderness with palpation around the recent abdominal incision. Extremity no calf tenderness General Extremity: Negative for edema Skin Rashes: no rashes Wounds: Negative for wounds noted Psych Psych Narrative: Appears less anxious. Sleeping well. Good appetite and fluid intake. More alert and processing thoughts more quickly. Assessment & Plan Assessment/Plan (1) Debility: (2) Embolic stroke: QUALIFIERS: Precerebral and cerebral artery: unspecified cerebral artery Qualified Code(s): I63.40 - Cerebral infarction due to embolism of unspecified cerebral artery PLAN: Multiple BL CVA's (3) History of breast cancer: PLAN: with mets to bone (R ilium, ribs, spine), pleura and intestine. 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 (10) Anxiety: (11) History of depression: PLAN: Not adequately controlled on Effexor XR and anxiwty is increased with Effexor. (12) Anemia requiring transfusions: (13) Chronic leukopenia: (14) Pleural effusion: PLAN: BL on CT chest done at [facility]. Has had a pleurodesis on the R in the past. Now has Left pleural effusion also. (15) Essential (primary) hypertension: (16) History of cardiac dysrhythmia: PLAN: PAC's, PVC's and atrial tachycardia. On Coreg. (17) Grade I diastolic dysfunction: (18) Mild left atrial enlargement: PLAN: Not present on most recent ECHO at [facility]. (19) History of pulmonary hypertension: PLAN: On ECHO in 2019....... PA systolic was estimated at 40 at that time. PLAN: Plan 1. Continue therapy 2. Decrease the a.m. Klonopin to 0.25 mg daily but continue 0.5 mg at 8 PM nightly. 3. Continue sertraline. 4. will need help with finances and medications at DC from rehab. Will also need supervision at home. 5. she would like to be able to drive again going forward and I told her about the drivers rehab program and [facility] and will give her a referral prior to DC. 6. she has a follow up appt scheduled with cardiology ART OBJECTS SALESPERSON post DC to review the event monitor.........she has been in NSR every time I have examined her while she has been on rehab. Charges/Coding Visit Charges Inpatient E&M: 43123 Subs Hosp L2
--- NOTE | 2024-09-29 07:53 | PCM.PROGNOTE ---
Subjective Subjective Marina was seen on TEAM rounds. Daughter Michel and son-in-law Rob were present in the room for rounds. All questions were answered to their satisfaction. Afebrile VSS -blood pressure over the past 24 hours has ranged from 139/43 to 162/79. The heart rate has ranged from 65-79. Maintaining appropriate oxygen saturation on RA at rest. Still requiring O2 with exertion. Oral intake - FOOD good FLUIDS good No urinary incontinence reported since 09/27/24 in the AM Last bowel movement was yesterday. Discussed with nursing - no problems that need addressed. Slept well last night. Reviewed the THERAPY notes Medication list reviewed. And tells me that she slept well last night. She feels rested this morning. She is still feeling a little anxious. Tolerating Klonopin 0.5 mg twice daily with no adverse side effects. Very alert today. Denies chest pain, shortness of breath, palpitations, lightheadedness, pain. she is feeling a little tired today........she is not a morning person and the Klonopin is likely contributing but it has helped considerably with the BP control and she is sleeping well at night now. No adverse RX's to the Sertraline. Objective Data Objective Data Vital Signs: Vital Signs Temp Pulse Resp BP Pulse Ox O2 Del Method O2 Flow Rate 97.9 F 78 16 162/79 H 98 Room Air 2 09/29/24 06:00 09/29/24 06:00 09/29/24 06:00 09/29/24 06:00 09/29/24 06:00 09/29/24 06:00 09/28/24 21:00 Oxygen Flow Rate (L/min) 2 Oxygen Delivery Method Room Air Weight: 175 lb 4.28 oz Body Mass Index (BMI) 35.4 Intake & Output: Intake and Output for Last 24 Hours 09/27/24 09/28/24 09/29/24 23:59 23:59 23:59 Intake Total 1800 / 2040 1700 / 1700 280 / 280 Output Total 700 / 700 1280 / 1280 200 / 200 Balance 1100 / 1340 420 / 420 80 / 80 Lab / Micro Data 09/27/24 06:50 09/27/24 06:50 Physical Exam Const alert and oriented x3 Constitutional Narrative: Was working with ST when I entered the room. She is very alert today and when I ask her a question there is no pause/delay before she answers me. Definitely thought processing more quickly. General Appearance: cooperative HEENT moist oral mucous membranes Resp normal respiratory effort and clear to auscultation bilaterally Resp Narrative: Diminished in the left base. No crackles, no wheezes. No conversational dyspnea. Not tachypneic. Cardio regular rate and regular rhythm Cardio Narrative: Denies palpitations. No gallop. No change in the systolic murmur heard best at the second right intercostal space with radiation to the left chest. Event monitor is in place. She has an appt to follow up with cardiology ANIMAL RIDE ATTENDANT on 10/28/24. GI normal to inspection, nondistended, normoactive bowel sounds and soft to palpation GI Narrative: No guarding with palpation but does have some mild tenderness with palpation around the recent abdominal incision. Extremity no calf tenderness General Extremity: Negative for edema Skin Rashes: no rashes Wounds: Negative for wounds noted Psych Psych Narrative: Appears less anxious. Sleeping well. Good appetite and fluid intake. More alert and processing thoughts more quickly. Assessment & Plan Assessment/Plan (1) Debility: (2) Embolic stroke: QUALIFIERS: Precerebral and cerebral artery: unspecified cerebral artery Qualified Code(s): I63.40 - Cerebral infarction due to embolism of unspecified cerebral artery PLAN: Multiple BL CVA's (3) History of breast cancer: PLAN: with mets to bone (R ilium, ribs, spine), pleura and intestine. 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 (10) Anxiety: (11) History of depression: PLAN: Not adequately controlled on Effexor XR and anxiwty is increased with Effexor. (12) Anemia requiring transfusions: (13) Chronic leukopenia: (14) Pleural effusion: PLAN: BL on CT chest done at [facility]. Has had a pleurodesis on the R in the past. Now has Left pleural effusion also. (15) Essential (primary) hypertension: (16) History of cardiac dysrhythmia: PLAN: PAC's, PVC's and atrial tachycardia. On Coreg. (17) Grade I diastolic dysfunction: (18) Mild left atrial enlargement: PLAN: Not present on most recent ECHO at [facility]. (19) History of pulmonary hypertension: PLAN: On ECHO in 2019....... PA systolic was estimated at 40 at that time. PLAN: Plan 1. Continue therapy 2. Decrease the a.m. Klonopin to 0.25 mg daily but continue 0.5 mg at 8 PM nightly. 3. Continue sertraline. 4. will need help with finances and medications at DC from rehab. Will also need supervision at home. 5. she would like to be able to drive again going forward and I told her about the drivers rehab program and [facility] and will give her a referral prior to DC. 6. she has a follow up appt scheduled with cardiology ANIMAL RIDE ATTENDANT post DC to review the event monitor.........she has been in NSR every time I have examined her while she has been on rehab. Charges/Coding Visit Charges Inpatient E&M: 36642 Subs Hosp L2
[2024-09-29] MEDS: APIXABAN 5 MG TABLET PO ×2 (10:06→21:07)
[2024-09-29] MEDS: Senna/Docusate Sodium 1 Tablet 2 TABLET PO ×2 (10:06→21:07)
--- NOTE | 2024-09-29 13:07 | CASEMGMT ---
Social Work IDT met with patient, dtr and BETH for Team meeting. Discussed patient's progress in PT/OT/ST/SN/MD. Educated to Medicare approval of 13 days with DC 10/09. Pt is making progress, but currently, pt's cognition is impaired and IDT is recommending 24/7 care. Pt scored 30/50 on BCAT. Pt lives at home alone and children both work. SW discussed options for silk screen printer helper in the home, medical alert at OOP cost or SNF for ongoing skilled therapy under Medicare coverage. Offered resources once family decides on DC plan. Will ReTeam weekly. SW will continue to follow for DC planning assistance and support. - Dtr became talking to this worker after IDT exited that they were considering pt DC to son and AVELs house, but they still work. SW offered to hire aides during the day since family will be with her in the evening and nighttime. Family expressed awareness of pt needing 24/7 care and prefer to avoid a SNF. SW provided resources for medical alert, MOW, private duty, and dedicated truck driver's rehab. SW also provided resources for stroke support group and [facility]. SW provided contact information to dtr and requested a call by mid-next week, prior to Team meeting to plan for DC. SW offered ongoing assistance. Dtr appreciative. Dina Simmons SOFTWARE CONFIGURATION SPECIALIST VISITING PROFESSOR
--- NOTE | 2024-09-29 13:07 | CASEMGMT ---
Social Work IDT met with patient, dtr and BETH for Team meeting. Discussed patient's progress in PT/OT/ST/SN/MD. Educated to Medicare approval of 13 days with DC 10/09. Pt is making progress, but currently, pt's cognition is impaired and IDT is recommending 24/7 care. Pt scored 30/50 on BCAT. Pt lives at home alone and children both work. SW discussed options for barrel raiser helper in the home, medical alert at OOP cost or SNF for ongoing skilled therapy under Medicare coverage. Offered resources once family decides on DC plan. Will ReTeam weekly. SW will continue to follow for DC planning assistance and support. - Dtr became talking to this worker after IDT exited that they were considering pt DC to son and AVELs house, but they still work. SW offered to hire aides during the day since family will be with her in the evening and nighttime. Family expressed awareness of pt needing 24/7 care and prefer to avoid a SNF. SW provided resources for medical alert, MOW, private duty, and uke driver's rehab. SW also provided resources for stroke support group and [facility]. SW provided contact information to dtr and requested a call by mid-next week, prior to Team meeting to plan for DC. SW offered ongoing assistance. Dtr appreciative. Dina Simmons HELICOPTER MECHANIC ENERGY SALES CONSULTANT
[2024-09-30] VITALS (7 sets, daily range): BP systolic 126–171; BP diastolic 42–51; PULSE 69–79; RESP 16–17; TEMP 36.6–37.5; O2SAT 92–95; BMI 35.2
[2024-09-30] MEDS: Senna/Docusate Sodium 1 Tablet 2 TABLET PO (08:52)
[2024-09-30] MEDS: APIXABAN 5 MG TABLET PO ×2 (08:52→20:17)
[2024-10-01] VITALS (7 sets, daily range): BP systolic 118–165; BP diastolic 43–82; PULSE 72–79; RESP 18; TEMP 36.2–37; O2SAT 93–98; BMI 35.2
[2024-10-01 07:57] LABS: CORTISOL AM 18.20 ug/dL (6.02-18.40)
[2024-10-01] MEDS: APIXABAN 5 MG TABLET PO ×2 (09:35→20:24)
--- NOTE | 2024-10-01 20:42 | NURSING ---
Pt was taking evening pills. Carafate per pt did not go down causing pt to have an emesis. No other pills noted to be vomited up. Pt states this happens every once in awhile. We have been breaking carafate in half. Pt agreeable to do a slurry with carafate in am. Pt Spo2 96% BP stable. Lungs clear and diminished. No other complaints at this time.
[2024-10-02] VITALS (7 sets, daily range): BP systolic 141–167; BP diastolic 47–55; PULSE 70–85; RESP 17–18; TEMP 36.8–37.4; O2SAT 91–97; BMI 35.2
[2024-10-02] MEDS: APIXABAN 5 MG TABLET PO ×2 (09:11→21:52)
[2024-10-02] MEDS: Senna/Docusate Sodium 1 Tablet 2 TABLET PO ×2 (09:13→21:48)
--- NOTE | 2024-10-02 19:36 | NURSING ---
Darius Gillis came to unit this evening and took event monitor as it is to be returned tomorrow.
--- NOTE | 2024-10-02 19:36 | NURSING ---
Darius Gillis came to unit this evening and took event monitor as it is to be returned tomorrow.
[2024-10-03] VITALS (9 sets, daily range): BP systolic 134–155; BP diastolic 43–65; PULSE 64–74; RESP 14–16; TEMP 36.8–37.2; O2SAT 87–95; BMI 35.2
[2024-10-03] MEDS: Senna/Docusate Sodium 1 Tablet 2 TABLET PO ×2 (10:10→20:43)
[2024-10-03] MEDS: APIXABAN 5 MG TABLET PO ×2 (10:10→21:10)
--- NOTE | 2024-10-03 15:13 | PCM.PROGNOTE ---
Subjective Subjective Afebrile VSS -blood pressure over the past 24 hours has ranged from 135/65 to 167/51. Heart rate is within normal limits. Maintaining appropriate oxygen saturation on RA Oral intake - FOOD good. She refused supper last night and had nausea and an episode of emesis. Ate 75 to 100% of her breakfast today. FLUIDS erratic, fair, some days poor Discussed with nursing - no problems that need addressed Reviewed the THERAPY notes Medication list reviewed. Antihypertensives include carvedilol 25 mg twice daily, hydralazine 50 mg 3 times daily, lisinopril 20 mg twice daily She had nausea and refused supper last night. She had an emesis at approximately 945 last night after taking her pills on an empty stomach. She has no other complaints. Denies lightheadedness, chest pain, shortness of breath, cough, palpitations, abdominal pain, dysuria. Stool was heme positive on 09/30/2024. She has been receiving Protonix 40 mg daily. Objective Data Objective Data Vital Signs: Vital Signs Temp Pulse Resp BP Pulse Ox O2 Del Method O2 Flow Rate 99.0 F 70 16 134/65 H 87 Room Air 2 10/03/24 06:00 10/03/24 13:30 10/03/24 06:00 10/03/24 13:30 10/03/24 09:04 10/03/24 10:00 10/03/24 12:30 Oxygen Flow Rate (L/min) 2 Oxygen Delivery Method Room Air Weight: 175 lb 0.752 oz Body Mass Index (BMI) 35.2 Intake & Output: Intake and Output for Last 24 Hours 10/01/24 10/02/24 10/03/24 23:59 23:59 23:59 Intake Total 795 / 795 1700 / 1700 610 / 610 Output Total 600 / 800 1350 / 1350 Balance 195 / -5 350 / 350 610 / 610 Lab / Micro Data 09/27/24 06:50 09/27/24 06:50 Micro: Microbiology 09/30/24 09:45 Stool Stool Occult Blood (GEGE) - Final Occult Blood Positive Assessment & Plan Assessment/Plan (1) Debility: (2) Embolic stroke: QUALIFIERS: Precerebral and cerebral artery: unspecified cerebral artery Qualified Code(s): I63.40 - Cerebral infarction due to embolism of unspecified cerebral artery PLAN: Multiple BL CVA's (3) History of breast cancer: PLAN: with mets to bone (R ilium, ribs, spine), pleura and intestine. 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 (10) Anxiety: (11) History of depression: PLAN: Not adequately controlled on Effexor XR and anxiwty is increased with Effexor. (12) Anemia requiring transfusions: (13) Chronic leukopenia: (14) Pleural effusion: PLAN: BL on CT chest done at [facility]. Has had a pleurodesis on the R in the past. Now has Left pleural effusion also. (15) Essential (primary) hypertension: (16) History of cardiac dysrhythmia: PLAN: PAC's, PVC's and atrial tachycardia. On Coreg. (17) Grade I diastolic dysfunction: (18) Mild left atrial enlargement: PLAN: Not present on most recent ECHO at [facility]. (19) History of pulmonary hypertension: PLAN: On ECHO in 2019....... PA systolic was estimated at 40 at that time. PLAN: Plan 1. Continue therapy 2. PA and lateral CXR today. If the effusion is bigger on the left then will consult radiology for a diagnostic and therapeutic thoracentesis. Would need to be off the Eliquis for a thoracentesis. 3. Have nursing space out the medications. 4. Add hydrochlorothiazide 12.5 mg daily to the current antihypertensive regimen. Charges/Coding Visit Charges Inpatient E&M: 76795 [facility] Hosp L1
--- NOTE | 2024-10-03 15:45 | RAD_ITS ---
PROCEDURE: CHEST PA AND LATERAL 10/03/2024 REASON FOR EXAM: HYPOXEMIA. TECHNIQUE: CHEST PA AND LATERAL COMPARISON: 09/27/2024 FINDINGS: Lungs/Pleura: Right lung base nodularity with adjacent surgical clip unchanged from prior exam, although increased comparing back to 01/18/2019, however these may be within the overlying right breast soft tissues. Small left basilar pleural effusion and/or subsegmental atelectasis, no significant change. Consolidation not excluded. No pneumothorax. Heart/Mediastinum: Cardiomegaly. Bones/Soft tissues: Mild degenerative changes of the spine. Calcific tendinosis of bilateral shoulder rotator cuffs, greater on the right. Right axillary surgical clips. RAD/Chest PA and Lateral IMPRESSION: Cardiomegaly. Small left basilar pleural effusion and/or atelectasis, unchange d. Nodularity in the right lung base is unchanged, but has progressively increased comparing back to 2019, although this be within the right breast soft tissues. Reading Location: [id number]
--- NOTE | 2024-10-03 15:45 | RAD_ITS ---
PROCEDURE: CHEST PA AND LATERAL 10/03/2024 REASON FOR EXAM: HYPOXEMIA. TECHNIQUE: CHEST PA AND LATERAL COMPARISON: 09/27/2024 FINDINGS: Lungs/Pleura: Right lung base nodularity with adjacent surgical clip unchanged from prior exam, although increased comparing back to 01/18/2019, however these may be within the overlying right breast soft tissues. Small left basilar pleural effusion and/or subsegmental atelectasis, no significant change. Consolidation not excluded. No pneumothorax. Heart/Mediastinum: Cardiomegaly. Bones/Soft tissues: Mild degenerative changes of the spine. Calcific tendinosis of bilateral shoulder rotator cuffs, greater on the right. Right axillary surgical clips. RAD/Chest PA and Lateral IMPRESSION: Cardiomegaly. Small left basilar pleural effusion and/or atelectasis, unchange d. Nodularity in the right lung base is unchanged, but has progressively increased comparing back to 2019, although this be within the right breast soft tissues. Reading Location: [id number]
--- NOTE | 2024-10-03 18:44 | NURSING ---
Pt swallowed meds whole today, no difficulties with swallowing. Last BM 09/30. Provided education, pt continues to refuse prune juice or PRN laxative, states I took the senna, it'll be enough. Bowel sounds normoactive, denies pain/discomfort.
[2024-10-04] VITALS (9 sets, daily range): BP systolic 116–156; BP diastolic 40–47; PULSE 64–71; RESP 16–20; TEMP 36.7–37.2; O2SAT 90–96; BMI 35.2
[2024-10-04] MEDS: Senna/Docusate Sodium 1 Tablet 2 TABLET PO ×2 (08:09→20:39)
[2024-10-04] MEDS: APIXABAN 5 MG TABLET PO ×2 (08:09→20:32)
--- NOTE | 2024-10-04 12:14 | PCM.PROGNOTE ---
Subjective Subjective Afebrile VSS -blood pressures today have been 128/44 and 116/40. Blood pressure last night at bedtime was 150/44. Heart rate is within normal limits. Maintaining appropriate oxygen saturation on RA Oral intake - FOOD good FLUIDS good Discussed with nursing - no problems that need addressed. Sleeping well at night. Reviewed the THERAPY notes Medication list reviewed. Denies nausea, vomiting, abdominal pain, abdominal cramping, chest pain, shortness of breath at rest, calf pain, lightheadedness. Chest x-ray yesterday shows small left pleural effusion with no significant change since the previous chest x-ray. Objective Data Objective Data Vital Signs: Vital Signs Temp Pulse Resp BP Pulse Ox O2 Del Method O2 Flow Rate 98.0 F 67 16 128/44 H 90 Nasal Cannula 2 10/04/24 06:00 10/04/24 06:27 10/04/24 06:00 10/04/24 06:00 10/04/24 09:03 10/04/24 08:03 10/04/24 08:03 Oxygen Flow Rate (L/min) 2 Oxygen Delivery Method Nasal Cannula Weight: 175 lb 0.752 oz Body Mass Index (BMI) 35.2 Intake & Output: Intake and Output for Last 24 Hours 10/02/24 10/03/24 10/04/24 23:59 23:59 23:59 Intake Total 1700 / 1700 1140 / 1140 700 / 700 Output Total 1350 / 1350 300 / 300 550 / 550 Balance 350 / 350 840 / 840 150 / 150 Lab / Micro Data 09/27/24 06:50 09/27/24 06:50 Micro: Microbiology 09/30/24 09:45 Stool Stool Occult Blood (GEGE) - Final Occult Blood Positive Radiography Diagnostic Testing: Radiology Impression Chest X-Ray 10/03/24 15:45 IMPRESSION: Cardiomegaly. Small left basilar pleural effusion and/or atelectasis, unchanged. Nodularity in the right lung base is unchanged, but has progressively increased comparing back to 2019, although this be within the right breast soft tissues. Reading Location: [facility] Physical Exam Const alert, oriented x3 and no apparent distress Constitutional Narrative: Was working with ST when I entered the room. She is very alert today and when I ask her a question there is no pause/delay before she answers me. Definitely thought processing more quickly. General Appearance: cooperative and comfortable HEENT moist oral mucous membranes Eyes PERRL, EOMs intact bilaterally, conjunctivae normal and no scleral icterus Eyes Narrative: No discharge from the eyes and no mattering of the eyelashes. No visual field cuts. Smooth pursuits, no nystagmus. General Eye: normal appearance of both eyes Neck no lymphadenopathy, supple, no JVD, No nodes and no carotid bruits General: trachea midline; Negative for anterior neck swelling or torticollis Chest Chest: symmetrical chest wall rise Resp normal respiratory effort, no use of accessory muscles and clear to auscultation bilaterally Resp Narrative: Diminished in the left base. No crackles, no wheezes. No conversational dyspnea. Not tachypneic. Cardio regular rate, regular rhythm, S1 normal heart sound, S2 normal heart sound, no murmurs, no rub and no gallops Cardio Narrative: Denies palpitations. No gallop. No change in the systolic murmur heard best at the second right intercostal space with radiation to the left chest. Event monitor is in place. She has an appt to follow up with cardiology DIRECT MARKETING SPECIALIST on 10/28/24. GI normal to inspection, nondistended, normoactive bowel sounds, soft to palpation and non-tender GI Narrative: No guarding with palpation but does have some mild tenderness with palpation around the recent abdominal incision. no CVA tenderness Narrative: Denies dysuria. She is incontinent of urine. Back/Spine no CVA tenderness Extremity no clubbing, cyanosis or edema and no calf tenderness Extremity Narrative: She has hyperpigmentation of the distal LE's and stasis dermatitis with flakey skin. General Extremity: Negative for edema Skin Skin Narrative: No rashes, no skin breakdown. Rashes: no rashes Wounds: Negative for wounds noted Neuro oriented x3, CN's II-XII intact bilaterally and no focal motor deficits Neuro Narrative: Generalized weakness. Tongue protrudes on the midline. No dysarthria. No aphasia. No visual field cuts. No drift with any of the extremities. No ataxia. No extinction. Intact sensation to pinprick throughout. She is right-hand dominant. Slow to process thoughts. Deficits in higher levels of cognitive dysfunction. Impulsive. Incontinent of both urine and stool. Motor Exam: strength 5/5 throughout Psych cooperative, affect normal, denies hallucinations, denies homicidal ideation and denies suicidal ideation Psych Narrative: Appears less anxious. Sleeping well. Good appetite and fluid intake. More alert and processing thoughts more quickly. Appearance: grossly normal, appropriate and well kempt Attitude: calm and engaged Activity / Motor Behavior: appropriate eye contact; Negative for psychomotor agitation Speech: No pressured, No slurred and other She has delay in answering questions secondary to cognitive slowing related to recent multiple embolic CVAs. Mood & Affect: depressed and flat affect Thought Process: confused, No flight of ideas and No illogical Attention / Concentration: other And attention and concentration are impaired. 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 Continue therapy 2. Discharge is planned for 10/09/2024 3. Increase sertraline to 100 mg p.o. daily. 4. Continue Klonopin at current dose. 5. Hold hydralazine if the systolic is less than 120. Continue lisinopril 20 mg twice daily, hydrochlorothiazide 12.5 mg daily and Coreg 25 mg twice daily I think she is much less anxious now and this is helping with BP control Hopefully will be able to DC Hydralazine so she does not have to take 4 different medications for HTN. 6. She is only incontinent of stool and urine intermittently now. Charges/Coding Visit Charges Inpatient E&M: 68031 Subs Hosp L1
--- NOTE | 2024-10-04 13:54 | CASEMGMT ---
Addendum entered by Dina Simmons 10/04/24 15:41: Both SNFs can accept. SW phoned dtr to update. Dtr to speak with pt about FOC. Original Note: Social Work Received call from dtr, requesting to discuss DC options. SW educated to options for home with skilled and nonskilled HHC to accommodate 24/7 care recommendation; skilled stay at SNF with Medicare coverage; [place] with skilled HHC. Family discussed possibility of pt staying at son's house, but agreed taht if Medicare will cover SNF stay for continued therapy, that is the first choice. Family is concerned about pt returning home and failing, as pt has done several times prior to stroke. SW validated. Dtr shared pt was at [facility] for about 8 days in the last 30 days. SW educated that would leave pt with about 92 days of coverage. Dtr expressed understanding. Dtr stated pt would prefer to be in [place], but does not want [place] or [facility]. SW offered to place referrals to [facility] and [facility]. Dtr agreed, then pt can provide FOC. SW to place referral. Dtr appreciative. - SW sent referrals to [facility] and [facility] via [facility]. Dina Simmons FIRE SUPERVISOR NURSE COMPANION
--- NOTE | 2024-10-04 13:54 | CASEMGMT ---
Addendum entered by Dina Simmons 10/04/24 15:41: Both SNFs can accept. SW phoned dtr to update. Dtr to speak with pt about FOC. Original Note: Social Work Received call from dtr, requesting to discuss DC options. SW educated to options for home with skilled and nonskilled HHC to accommodate 24/7 care recommendation; skilled stay at SNF with Medicare coverage; [place] with skilled HHC. Family discussed possibility of pt staying at son's house, but agreed taht if Medicare will cover SNF stay for continued therapy, that is the first choice. Family is concerned about pt returning home and failing, as pt has done several times prior to stroke. SW validated. Dtr shared pt was at [facility] for about 8 days in the last 30 days. SW educated that would leave pt with about 92 days of coverage. Dtr expressed understanding. Dtr stated pt would prefer to be in [place], but does not want [place] or [facility] [place]. SW offered to place referrals to [facility] and [facility]. Dtr agreed, then pt can provide FOC. SW to place referral. Dtr appreciative. - SW sent referrals to [facility]. Dina Simmons TUB TENDER WELL LOGGER
[2024-10-05] VITALS (9 sets, daily range): BP systolic 127–157; BP diastolic 42–58; PULSE 64–80; RESP 15–18; TEMP 37–37.4; O2SAT 92–96; BMI 35.2
[2024-10-05] MEDS: Senna/Docusate Sodium 1 Tablet 2 TABLET PO ×2 (08:03→21:07)
[2024-10-05] MEDS: APIXABAN 5 MG TABLET PO ×2 (08:03→21:07)
--- NOTE | 2024-10-05 17:26 | NURSING ---
Returned pts personal medication from med room to daughter, Michel Sanon.
--- NOTE | 2024-10-05 17:26 | NURSING ---
Returned pts personal medication from med room to daughter, Michel Sanon.
[2024-10-06] VITALS (16 sets, daily range): BP systolic 103–154; BP diastolic 34–64; PULSE 60–82; RESP 15–20; TEMP 36.6–37.5; O2SAT 92–97; BMI 35.2
--- NOTE | 2024-10-06 03:01 | NURSING ---
SPO2 AT 95% WITH CPAP OPERATING AT THIS TIME.
--- NOTE | 2024-10-06 03:01 | NURSING ---
SPO2 AT 95% WITH CPAP OPERATING AT THIS TIME.
[2024-10-06 05:57] LABS: Hematocrit 22.1 % (37-47); Hemoglobin 7.3 g/dL (12.0-15.0); Mean Corp Hgb Conc 33.0 g/dL (32-36); Mean Corpuscular Volume 98.7 fL (81-99); Mean Platelet Vol. 9.9 fl (6.2-12.0); POSITIVE MORPHOLOGY YES; Platelet Count 190 K/mm3 (150-450); RBC Distribution Width CV 19.3 % (11.6-14.6); RBC Distribution Width SD 69.5 fl (35.1-43.9); Red Blood Count 2.24 M/mm3 (4.2-5.4); White Blood Count 3.7 K/mm3 (4.4-11.0)
[2024-10-06 05:59] LABS: Scan Indicated on CBC? Y/N YES- FLAGS NOTED
[2024-10-06 06:26] LABS: Anion Gap 10 (5-15); BUN 11 mg/dL (4-19); BUN/Creat Ratio 13.7 RATIO (10-20); Calcium,Total 9.0 mg/dL (7.6-11.0); Carbon Dioxide 26.5 mmol/L (21.0-32.0); Chloride 100 mmol/L (98-108); Estimated Creatinine Clearance 54.91 ml/min (50-250); Glucose 93 mg/dL (70-99); Potassium 3.4 mmol/L (3.3-5.1)
[2024-10-06 06:44] LABS: Differential Comment SCANNED
[2024-10-06] MEDS: APIXABAN 5 MG TABLET PO ×2 (09:08→21:02)
--- NOTE | 2024-10-06 09:54 | CASEMGMT ---
Social Work SW met with patient to discuss DC plans. SW informed pt that [facility] can accept and so can [facility], but does not have beds. SW offered to refer to other SNFs, if pt does not want [facility]. Pt agreed to [facility]. SW will finalize. Pt appreciative. - SW updated [facility] Plan: DC 10/09 to [facility], skilled Dina Simmons ANALYTICAL DATA MINER BRAND AMBASSADORS PROMOTIONAL SALES
--- NOTE | 2024-10-06 09:54 | CASEMGMT ---
Social Work SW met with patient to discuss DC plans. SW informed pt that [facility] can accept and so can [facility], but does not have beds. SW offered to refer to other SNFs, if pt does not want [facility]. Pt agreed to [facility]. SW will finalize. Pt appreciative. - SW updated [facility]000 started in [facility]. Plan: DC 10/09 to [facility], skilled Dina Simmons BOX SEALING MACHINE OPERATOR WOOD AND WOOD PRODUCTS LABOURER
--- NOTE | 2024-10-06 12:46 | CASEMGMT ---
Social Work IDT met with patient, son and DIL for Team meeting. Discussed patient's progress in PT/OT/ST/SN/MD. Confirmed Medicare DC date 10/09, to [facility], skilled with Medicare. Family confirmed transport. No other needs noted. Dina Simmons THIRD LOADER STATION CLEANING PORTER
--- NOTE | 2024-10-06 12:46 | CASEMGMT ---
Social Work IDT met with patient, son and DIL for Team meeting. Discussed patient's progress in PT/OT/ST/SN/MD. Confirmed Medicare DC date 10/09, to [facility], skilled with Medicare. Family confirmed transport. No other needs noted. Dina Simmons DATA POWER CONSULTANT [employer] ARCHITECT
--- NOTE | 2024-10-06 15:11 | PCM.PROGNOTE ---
Subjective Subjective And was seen on team rounds today. Her son Carlin and her dtr-in-law were present in the room for rounds. All questions were answered to their satisfaction. Afebrile VSS -blood pressure is for the most part controlled. The diastolic is always within goal now with occasional elevations in systolic but nothing over 160. She denies lightheadedness. Heart rate is within normal limits. Maintaining appropriate oxygen saturation on RA while at rest and sitting in the recliner. She does desaturate with exertion but is now down to 1 L of oxygen supplementation with exertion. Oral intake - FOOD good FLUIDS fair....consistently > 1,000 cc daily now. Discussed with nursing - no problems that need addressed Reviewed the THERAPY notes Medication list reviewed. All lab from this morning was personally reviewed. White blood cell count is low at 3.7, down from 4.6 on 09/27/2024. She has had intermittent leukopenia in the past. She is afebrile. Hemoglobin is down to 7.3 today from 8.6 on 09/27/2024. Stool is heme positive. Platelets are within normal limits. The BMP is unremarkable today. Potassium is borderline low at 3.4. The creatinine is 0.8 with a BUN of 11 and this is within her baseline. Calcium is within normal limits. Iron saturation was normal earlier in her admission to acute rehab. Objective Data Objective Data Vital Signs: Vital Signs Temp Pulse Resp BP Pulse Ox O2 Del Method O2 Flow Rate 97.9 F 65 16 132/42 H 92 Room Air 1 10/06/24 05:58 10/06/24 15:00 10/06/24 10:00 10/06/24 15:00 10/06/24 10:00 10/06/24 10:08 10/06/24 10:01 Oxygen Flow Rate (L/min) 1 Oxygen Delivery Method Room Air Weight: 175 lb 0.752 oz Body Mass Index (BMI) 35.2 Intake & Output: Intake and Output for Last 24 Hours 10/04/24 10/05/24 10/06/24 23:59 23:59 23:59 Intake Total 1260 / 1260 1180 / 1180 630 / 630 Output Total 800 / 1200 1850 / 2000 640 / 640 Balance 460 / 60 -670 / -820 -10 / -10 Lab / Micro Data 10/06/24 05:27 10/06/24 05:27 Labs: Laboratory Results - last 24 hr 10/06/24 05:27: WBC 3.7 L, RBC 2.24 L, Hgb 7.3 L, Hct 22.1 L, MCV 98.7, MCH 32.6 H, MCHC 33.0, RDW Std Deviation 69.5 H, RDW Coeff of Isaias 19.3 H, Plt Count 190, MPV 9.9, Differential Comment SCANNED, Sodium 137, Potassium 3.4, Chloride 100, Carbon Dioxide 26.5, Anion Gap 10, BUN 11, Creatinine 0.80, Estim Creat Clear Calc 54.91, Est GFR (MDRD) Non-Af 76, BUN/Creatinine Ratio 13.7, Glucose 93, Calcium 9.0 10/06/24 13:45: Blood Type O POSITIVE, Antibody Screen NEGATIVE, Crossmatch See Detail Micro: Microbiology 09/30/24 09:45 Stool Stool Occult Blood (GEGE) - Final Occult Blood Positive Physical Exam Const alert and no apparent distress Constitutional Narrative: Still fatiguing easily and when she fatigues her legs get a little shaky. General Appearance: cooperative HEENT moist oral mucous membranes Resp normal respiratory effort, no use of accessory muscles and clear to auscultation bilaterally Resp Narrative: Diminished in the left base. No crackles, no wheezes. No conversational dyspnea. Not tachypneic. Cardio regular rate, regular rhythm, S1 normal heart sound, S2 normal heart sound, no rub and no gallops Cardio Narrative: Denies palpitations. No gallop. No change in the systolic murmur heard best at the second right intercostal space with radiation to the left chest. Event monitor is in place. She has an appt to follow up with cardiology [employer] on 10/28/24. GI normal to inspection, nondistended, normoactive bowel sounds, soft to palpation and non-tender no CVA tenderness Narrative: Denies dysuria. She is incontinent of urine. Extremity no clubbing, cyanosis or edema and no calf tenderness Skin Skin Narrative: No rashes, no skin breakdown. Rashes: no rashes Wounds: Negative for wounds noted Neuro Neuro Narrative: Generalized weakness, fatigues easily but getting stronger. Cognition is improving but still would require 24/7 supervision. Psych cooperative Psych Narrative: Appears less anxious. Sleeping well. Good appetite and fluid intake. More alert and processing thoughts more quickly. Gets some tremors of the hands when she is anxious. Much better s9ince admission with addition of Klonopin to the drug regimen. Appearance: grossly normal, appropriate and well kempt Attitude: calm and engaged Activity / Motor Behavior: appropriate eye contact; Negative for psychomotor agitation Speech: No pressured, No slurred and other She has delay in answering questions secondary to cognitive slowing related to recent multiple embolic CVAs. Mood & Affect: depressed and flat affect Thought Process: confused, No flight of ideas and No illogical Attention / Concentration: other And attention and concentration are impaired. 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 Continue therapy 2. Type and cross for 2 units of packed red blood cells and transfused today. 3. Consult Dr. Alvarez for endoscopy due to acute on chronic anemia with heme positive stool. 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 4. Anxiety and depression have improved since admission. Klonopin may be contributing to fatigue in the a.m. Although she is not a morning person historically. Will change the Klonopin to 0.25 mg every 12 hours. Will likely continue this at [facility].......has been through a lot since the intestinal resection in July and there are ongoing issues that need to be dealt with. 5. Discharge is planned for 10/09/2024 and she will be going to senior care at [facility]. 6. Will schedule a follow up appt with Dr. Hills. Has been waiting for her to get and ECHO so he can start Enhertu. ECHO shows a normal EF.......will fax and ECHO report and the DC summary to him when she leaves rehab. 7. Apixaban has been placed on hold due to acute on chronic anemia with heme positive stool and in preparation for endoscopy. Charges/Coding Visit Charges Inpatient E&M: 81692 Subs Hosp L2
[2024-10-06] MEDS: 0.9% Normal Saline (250mL Bag) 250 ML 15 ML IV (15:34)
[2024-10-06] MEDS: 0.9% Saline Lock 10 ML Syringe IV (15:35)
--- NOTE | 2024-10-06 18:12 | EX.PCM.CON.G ---
HPI Consult Data Date of Consult: 10/06/24 HPI Narrative Reason for Consultation: Anemia HPI Narrative: BIANCA MORAES, is a 79 F who presents for rehabilitation. She has unfortunate diagnosis of recurrent breast cancer with possible local metastasis. She was recently admitted at outside institution for small bowel obstruction secondary to an ileocecal intussusception. Her hemoglobin was 10.8 on admission to but dropped down to 7.3 by day of discharge post surgery. Follow-up labs showed hemoglobin of 5.1 prompting her to be referred to the ER. Her stool occult negative and patient with normal bowel movements with no blood loss and no overt areas of blood loss, it is suspected that this is due to surgical losses and low production in setting of metastatic cancer given lack of blood loss from elsewhere. She was given 3 L packed red blood cells with hemoglobin this a.m. of 8.8. Patient feeling better after transfusion, had 2-3 episodes of loose stool this a.m. without blood in her stool and no abdominal pain or nausea or vomiting, no new or acute complaints. I was asked to see her due to the fact that her hemoglobin went back down in the setting of anticoagulation and antiplatelet therapy. She has been on pantoprazole and Carafate therapy for this hospitalization since her blood count started dropping. [facility] Medical History (Updated 10/06/24 @ 15:[address] Isela Huggins DO) Hypertension TIA (transient ischemic attack) Stroke/cerebrovascular accident History of cardiac dysrhythmia Grade I diastolic dysfunction Mild left atrial enlargement History of pulmonary hypertension Chronic leukopenia Obstructive sleep apnea History of depression Pleural effusion Hiatal hernia Breast cancer GERD (gastroesophageal reflux disease) Hyperlipidemia Essential (primary) hypertension Home Medications ?Medication ?Instructions ?Recorded ?Last Taken ?Type multivitamin 1 ea PO DAILY SUPPLEMENT 09/12/15 Unknown History venlafaxine 37.5 mg 37.5 mg PO DAILY ANXIETY 09/12/15 09/26/24 History capsule,extended release 24 hr fulvestrant 250 mg/5 mL 500 mg IM QMONTH hormon therapy 08/08/19 09/07/24 History intramuscular syringe (Faslodex) Held on 09/26/24. Instructions: Ordered cyanocobalamin (vitamin B-12) 5,000 mcg PO DAILY supplement 09/30/21 Unknown History 5,000 mcg disintegrating tablet Held on 09/26/24. Instructions: MD Ordered elderberry fruit 460 mg-elderberry 1 cap PO DAILY supplement 09/30/21 Unknown History flower 115 mg capsule Held on 09/26/24. Instructions: MD Ordered palbociclib 125 mg tablet (Ibrance) 125 mg PO DAILY supplement 09/30/21 Unknown History Held on 09/26/24. Instructions: MD Ordered acetaminophen 500 mg tablet 1,000 mg PO Q6H PRN pain 09/26/24 Unknown History apixaban 5 mg tablet (Eliquis) 5 mg PO BID blood thinner 09/26/24 09/26/24 History aspirin 81 mg tablet 81 mg PO DAILY heart health 09/26/24 09/26/24 History atorvastatin 40 mg tablet (Lipitor) 40 mg PO QHS cholesterol 09/26/24 09/25/24 History carvedilol 12.5 mg tablet 25 mg PO BID blood pressure 09/26/24 09/26/24 History fluorometholone 0.1 % eye 1 drp RIGHT EYE TID FML 09/26/24 09/26/24 History drops,suspension Held on 09/26/24. Instructions: MD Ordered hydralazine 50 mg tablet 50 mg PO TID blood pressure 09/26/24 09/26/24 History losartan 100 mg tablet (Cozaar) 100 mg PO DAILY blood pressure 09/26/24 Unknown History ondansetron 4 mg disintegrating 4 mg PO Q8H PRN nausea and vomiting 09/26/24 Unknown History tablet pantoprazole 40 mg granules 40 mg PO DAILY reflux 09/26/24 Unknown History delayed-release for susp in packet (Protonix) sucralfate 1 gram tablet (Carafate) 1 g PO Q8H stomach 09/26/24 Unknown History Allergy/AdvReac Type Severity Reaction Status Date / Time Iodinated Contrast Media Allergy Intermediate Rash Verified 09/07/24 15:18 (Iodinated Contrast- Oral and IV Dye) Sulfa (Sulfonamide Allergy Rash Verified 09/07/24 15:18 Antibiotics) Family History Mother CAD (coronary artery disease) Surgical History History of intussusception of intestine History of lung surgery History of left knee replacement History of hernia repair (~07/2016) History of breast reconstruction History of breast biopsy History of total right knee replacement History of partial mastectomy of right breast Status post wrist surgery History of total hysterectomy Social History (Updated 09/27/24 @ 14:[address] Isela Huggins, ) household members: none housing: house number of children: 2 Smoking Status: Former smoker how long ago did patient quit smoking: > 20 years ago alcohol intake: current alcohol intake frequency: a few times a month details: occasional substance use type: does not use ROS Constitutional Constitutional: Denies fatigue, fever(s), poor appetite, weight gain or weight loss Eyes Eyes: Denies blurry vision, change in vision, eye pain or loss of vision ENT HEENT: Reports dysphagia and other Details: having trouble swallowing pills ; Denies abnormal hearing, headache(s), hearing loss, nasal congestion or sore throat Cardiovascular Cardiovascular: Reports orthopnea; Denies chest pain, dyspnea on exertion, edema, lightheadedness, palpitations, paroxysmal nocturnal dyspnea or syncope Respiratory/Chest Respiratory/Chest: Reports shortness of breath with exertion; Denies cough, dyspnea, shortness of breath at rest or wheezing Gastrointestinal Gastrointestinal: Denies belching, bloating, change in bowel habits, change in stool character, chewing difficulty, coffee ground emesis, constipation, cramping, diarrhea, dyspepsia, dysphagia, early satiety, excessive flatus, fecal incontinence, heartburn, hematemesis, hematochezia, hemorrhoids, loose stools, melena, nausea, odynophagia, rectal bleeding, tenesmus, vomiting or weight changes Genitourinary Genitourinary: Reports urinary incontinence; Denies dysuria, hematuria, nocturia, urinary frequency, urinary hesitancy or urinary urgency Musculoskeletal Musculoskeletal: Denies back pain, joint pain, joint swelling, myalgias or neck pain Integumentary Integumentary: Denies jaundice, pruritus or rash Neurologic Neurologic: Reports confusion and other Details: She has noticed that her ability to thought process is slower than it was prior to the strokes. ; Denies disequilibrium, dizziness, focal weakness, headache(s), paresthesias, seizures or tremor(s) Psychiatric Psychiatric: Reports anxiety, change in appetite, depression and difficulty concentrating; Denies homicidal ideation or suicidal ideation Endocrine Endocrinology: Denies change in body appearance, polydipsia or polyuria Hematologic/Lymphatic Hematologic/Lymphatic: Reports easy bruising; Denies easy bleeding or lymphadenopathy Allergic/Immunologic Allergic/Immunologic: Denies rhinitis, eczemia or asthma Lab / Micro Data 10/06/24 05:27 10/06/24 05:27 Labs: Laboratory Results - last 24 hr 10/06/24 05:27: WBC 3.7 L, RBC 2.24 L, Hgb 7.3 L, Hct 22.1 L, MCV 98.7, MCH 32.6 H, MCHC 33.0, RDW Std Deviation 69.5 H, RDW Coeff of Isaias 19.3 H, Plt Count 190, MPV 9.9, Differential Comment SCANNED, Sodium 137, Potassium 3.4, Chloride 100, Carbon Dioxide 26.5, Anion Gap 10, BUN 11, Creatinine 0.80, Estim Creat Clear Calc 54.91, Est GFR (MDRD) Non-Af 76, BUN/Creatinine Ratio 13.7, Glucose 93, Calcium 9.0 10/06/24 13:45: Blood Type O POSITIVE, Antibody Screen NEGATIVE, Crossmatch See Detail Assessment & Plan Assessment/Plan (1) Hypercoagulable state: (2) Acute on chronic anemia: (3) Heme positive stool: PLAN: Plan 79-year-old with complicated medical history including recurrent breast cancer with metastasis and recent ileocecal valve intussusception status post surgery for a bowel obstruction who is currently dealing with anemia in the setting of anticoagulation and antiplatelet therapy. Recommend upper endoscopy to evaluate upper GI tract and if negative she may need colonoscopy and or capsule endoscopy. She was explained alternatives, risk and benefits including withstanding bleeding, infection, steps, perforation, need for surgery . She will have an ASA of 3.. Charges/Coding Visit Charges Inpatient E&M: 76548 SNF Init L1
[2024-10-06 23:00] LABS: Hematocrit 28.3 % (37-47); Hemoglobin 9.6 g/dL (12.0-15.0)
[2024-10-07] VITALS (13 sets, daily range): BP systolic 129–153; BP diastolic 43–61; PULSE 64–74; RESP 6–16; TEMP 36.4–36.9; O2SAT 91–99; BMI 35.3; BMI 34.0
[2024-10-07 05:53] LABS: Hematocrit 28.6 % (37-47); Hemoglobin 9.6 g/dL (12.0-15.0); Immature Granulocytes Count 0.170 X10^3/uL (0.0-0.0); Mean Corp Hgb Conc 33.6 g/dL (32-36); Mean Corpuscular Volume 91.4 fL (81-99); Mean Platelet Vol. 9.8 fl (6.2-12.0); NRBC Flagged by Analyzer 0 % (0-5); POSITIVE DIFFERENTIAL YES; POSITIVE MORPHOLOGY YES; Platelet Count 183 K/mm3 (150-450); RBC Distribution Width CV 21.1 % (11.6-14.6); RBC Distribution Width SD 68.1 fl (35.1-43.9); Red Blood Count 3.13 M/mm3 (4.2-5.4); White Blood Count 4.8 K/mm3 (4.4-11.0)
--- NOTE | 2024-10-07 05:55 | EKG12_ITS ---
Test Reason : AM EKG Blood Pressure : */* mmHG Vent. Rate : 69 BPM Atrial Rate : 69 BPM P-R Int : 210 ms QRS Dur : 102 ms QT Int : 400 ms P-R-T Axes : 42 10 -1 degrees QTcB Int : 428 ms Sinus rhythm with 1st degree A-V block Incomplete right bundle branch block Borderline ECG When compared with ECG of 19-Oct-2017 16:42, No significant change was found Confirmed by Last Bernstein ([id number]), editorial specialist [facility] ([id number]) on 10/11/2024 5:45:51 AM Referred By: Confirmed By: Last Bernstein
--- NOTE | 2024-10-07 05:55 | EKG12_ITS ---
Test Reason : AM EKG Blood Pressure : */* mmHG Vent. Rate : 69 BPM Atrial Rate : 69 BPM P-R Int : 210 ms QRS Dur : 102 ms QT Int : 400 ms P-R-T Axes : 42 10 -1 degrees QTcB Int : 428 ms Sinus rhythm with 1st degree A-V block Incomplete right bundle branch block Borderline ECG When compared with ECG of 19-Oct-2017 16:42, No significant change was found Confirmed by Last Bernstein ([id number]), news copy editor [facility] ([id number]) on 10/11/2024 5:45:51 AM Referred By: Confirmed By: Last Bernstein
[2024-10-07 06:09] LABS: Prothrombin Time (Protime)PT. 19.9 SECONDS (11.7-14.9)
[2024-10-07 06:10] LABS: Partial Thromboplast Time 41.3 Seconds (24.1-36.2)
[2024-10-07 06:19] LABS: Anion Gap 10 (5-15); BUN 13 mg/dL (4-19); BUN/Creat Ratio 15.2 RATIO (10-20); Calcium,Total 8.9 mg/dL (7.6-11.0); Carbon Dioxide 25.7 mmol/L (21.0-32.0); Chloride 101 mmol/L (98-108); Estimated Creatinine Clearance 48.87 ml/min (50-250); Glucose 94 mg/dL (70-99); Potassium 3.3 mmol/L (3.3-5.1)
[2024-10-07 06:37] LABS: Differential Indicated SCAN CRITERIA MET
[2024-10-07 07:30] LABS: Anisocytosis 2+
--- NOTE | 2024-10-07 11:04 | TREXTCAR_ITS ---
Diet Diet Order/Speech Therapy: INPATIENT Hospital Diet / Speech Therapy Order(s) 10/07/24 00:01 Diet: Nothing Per Oral Was NPO only on 10/07/24 for an EGD. Routine Orders/Code Status Enema Type: Fleetz Enema Frequency: Daily PRN Suppository Type: Dulcolax 10mg Suppository Frequency: Daily PRN Routine Lab Work: - (CBC, MAG and BMP in 1 week) Code Status: Full Code DC O2, CPAP, BIPAP needs Home O2 Discharge instructions: Yes Type of respiratory needs?: Oxygen (Oxygen at rest is WNL but, she desaturates with exertion. ) Oxygen frequency: With Ambulation Oxygen liters per minute during Ambulation: 1-2 Therapies Weight Bearing: Full weight bearing Extremity Affected:: Bilateral Lower (generalized weakness.......no focal weakness. ) Physical Therapy: Eval and Treat Occupational Therapy: Eval and Treat Speech Therapy: Eval and Treat Problem/Diagnosis (1) Debility: Status: Acute Code(s): R53.81 - Other malaise (2) Embolic stroke: Status: Acute Code(s): I63.9 - Cerebral infarction, unspecified Plan: Multiple foci of infarction BL. No hx of AF. No PFO or ASD on ECHO. Emboli presumed to be secondary to hypercoagulable state related to malignancy. Comment: Multiple foci of infarction BL. No hx of AF. No PFO or ASD on ECHO. Emboli presumed to be secondary to hypercoagulable state related to malignancy. (3) Hypercoagulable state: Status: Suspected Code(s): D68.59 - Other primary thrombophilia Plan: Due to metastatic breast cancer. 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 (CVA): Status: Acute Code(s): I63.9 - Cerebral infarction, unspecified; R41.89 - Other symptoms and signs involving cognitive functions and awareness (5) Acute on chronic anemia: Status: Acute Code(s): D64.9 - Anemia, unspecified Plan: EGD done on 08/07/24 Comment: With heme positive stool on Eliquis 5 mg twice daily (6) Heme positive stool: Status: Acute Code(s): R19.5 - Other fecal abnormalities (7) Generalized muscle weakness: Status: Chronic Code(s): M62.81 - Muscle weakness (generalized) Plan: Never really fully recovered her strength after the abd surgery in July 2024 for intestinal intussusception secondary to a metastatic breast lesion in the small intestine. (8) History of intussusception of intestine: Status: Chronic Code(s): Z87.19 - Personal history of other diseases of the digestive system Comment: S/P ileocecectomy in July 2024 related to breast mets to intestine. (9) Exercise hypoxemia: Status: Acute Code(s): R09.02 - Hypoxemia (10) Fecal incontinence: Status: Acute Code(s): R15.9 - Full incontinence of feces (11) Urinary incontinence: Status: Acute Code(s): R32 - Unspecified urinary incontinence (12) Anxiety: Status: Chronic Code(s): F41.9 - Anxiety disorder, unspecified Plan: Could not get the BP within goal on 3 antihypertensives. Started Klonopin BID a nd the BP is better controlled......still with mild systolic HTN when she is anxious (increased after she was told on 10/06/24 that she needed to have an EGD. Diastolic is always within goal now. Was on Effexor at admission to rehab and was having insomnia and increased anxiety. Effexor is known to be associated with these side effects. Effexor was discontinued and she was started on Sertraline which she is tolerating well. Klonopin was decreasd to 0.25 mg Q12H on 10/06/24. (13) Mild left atrial enlargement: Status: Chronic Code(s): I51.7 - Cardiomegaly Comment: On echocardiogram done in 2019....ECHO at [facility] did not show LAE in September 2024. (14) History of pulmonary hypertension: Status: Chronic Code(s): Z86.79 - Personal history of other diseases of the circulatory system Comment: Right ventricular systolic pressure was estimated at 40 mmHg on echocardiogram in 2019 (15) Obstructive sleep apnea: Status: Chronic Code(s): G47.33 - Obstructive sleep apnea (adult) (pediatric) Comment: Compliant with CPAP at night. (16) Chronic leukopenia: Status: Chronic Code(s): D72.819 - Decreased white blood cell count, unspecified (17) History of depression: Status: Chronic Code(s): Z86.59 - Personal history of other mental and behavioral disorders (18) Pleural effusion: Status: Chronic Code(s): J90 - Pleural effusion, not elsewhere classified Plan: the left pleural effusion is small and is not enlarging. No treatment needed on rehab. Comment: Malignant right pleural effusion... Status post pleurodesis. Now with left pleural effusion. (19) GERD (gastroesophageal reflux disease): Status: Chronic Code(s): K21.9 - Gastro-esophageal reflux disease without esophagitis (20) Hyperlipidemia: Status: Chronic Code(s): E78.5 - Hyperlipidemia, unspecified (21) Essential (primary) hypertension: Status: Chronic Code(s): I10 - Essential (primary) hypertension Plan: Difficult to control, emery when anxiety is not controlled. At the time of discharge she is taking lisinopril 20 mg twice daily, hydrochlorothiazide 12.5 mg daily, hydralazine 50 mg 3 times daily and Coreg 25 mg twice daily. Consider CTA of the renal arteries going forward to r/o ANAHI as contributing to HTN. TSH is normal. Cortisol is also normal. (22) Breast cancer: Status: Chronic Code(s): C50.919 - Malignant neoplasm of unspecified site of unspecified female breast Plan: Will follow up with Dr. Hills who plans o discontinuing Faslodex and Ibrance and starting Enhertu. Echocardiogram showed a normal left ventricular ejection fraction recently. Comment: With mets to bone, pleura (status post remote pleurodesis R), ileum (causing intussusception resulting in ileocecectomy in July 2024) Plan 1. Plan discharge to [facility] on 10/09/2024. 2. Will follow-up with Dr. Hills, Dr. Del Valle (PCP), Flores Ly [employer]ICE-Calvin for results of event monitor and Isela Alexandra. Allergies/Procedures Done in Hospital Allergies Iodinated Contrast Media (Iodinated Contrast- Oral and IV Dye) Allergy (Intermediate, Verified 09/07/24 15:18) Rash Sulfa (Sulfonamide Antibiotics) Allergy (Verified 09/07/24 15:18) Rash Procedures: 2-D Echocardiogram (Transthoracic echocardiogram revealed a negative bubble study. The left ventricular ejection fraction was estimated at 60 to 65% with no wall motion abnormalities. She has grade 1 diastolic dysfunction. The re was some sclerosis but no stenosis of the aortic valve. There was increased septal and ) Type of Care/Length of Stay Estimated LOS: Convalescent Care Less Than 30 days Type of Care Needed: Skilled Rehab Potential: Good Prognosis: Good Additional Orders/Day of Discharge H&P will serve as current which was dated: 09/27/24 Day of Discharge: 10/09/24 Dietary and Speech Recommendations Dietitian Recommendations/Changes: Continue Cardiac diet to manage medical conditions. Consult RD if changes occur in nutrition status. Follow Up Care Please follow up with your Primary Care Physician in: APPTS and follow up listed later in this document. Discharge Plan Admission Admit Date/Time: 09/26/24 17:38 Primary Reason for Your Visit: debility due to multiple embolic CVA's. Attending Provider: Isela Huggins Primary Care Provider: Miladys Del Valle Instructions Additional Instructions / Restrictions: 1. At presentation to rehab she was incontinent of urine and stool continuously. Prior to DC she is intermittently continent of both urine and stool. 2. Strength has improved while on rehab but, she still fatigues easily and then her legs get shaky. 3. She is down to 1 LPM of oxygen with exertion at the time of DC from rehab. 4. Cognition is improving and speech is much more fluent now....less problem with word finding. 5. Sleeping well at night now and good appetite. 6. Anxiety is better controlled. Would benefit from psychotherapy. 7. Has been wearing an event monitor while on rehab and she will follow up with Flores BENITEZ post DC to review the results of the monitor. She has had no AF anytime I have examined her on rehab. 8. Dr. Hills's office is supposed to call her (or her family) to schedule follow up for her to start new tx for breast CA with new mets. Discharge Orders/Prescriptions Prescriptions: New clonazepam 0.5 mg Tablet 0.25 mg PO [id number] Qty: 14 0RF hydrocortisone acetate 25 mg Suppository 25 mg FL BID PRN PRN (Reason: hematochezia/rectal pain) Qty: 12 0RF bisacodyl 10 mg Suppository 10 mg FL X1 PRN (Reason: Constipation) Qty: 1 0RF hydrochlorothiazide 12.5 mg Capsule 12.5 mg PO DAILY Qty: 1 0RF sucralfate 1 gram Tablet 1 g PO 1HR_ACHS Qty: 1 0RF lisinopril 20 mg Tablet 20 mg PO BID Qty: 1 0RF sennosides-docusate sodium [Stimulant Laxative Plus] 8.6-50 mg Tablet 2 tab PO BID Qty: 1 0RF sertraline 100 mg Tablet 100 mg PO DAILY Qty: 1 0RF potassium chloride 20 mEq Tablet,Er Particles/Crystals 20 meq PO DAILYCM Qty: 1 0RF magnesium hydroxide 400 mg/5 mL Suspension 30 ml PO X1 PRN (Reason: Constipation) Qty: 30 0RF Continued cyanocobalamin (vitamin B-12) 5,000 mcg tablet,disintegrating 5,000 mcg PO DAILY Patient Comments: to bring from home elderberry fruit and flower 460-115 mg capsule 1 cap PO DAILY multivitamin 1 EACH tablet 1 ea PO DAILY Patient Comments: supplement acetaminophen 500 mg tablet 1,000 mg PO Q6H PRN (Reason: pain) Eliquis 5 mg tablet 5 mg PO BID aspirin 81 mg tablet 81 mg PO DAILY atorvastatin [Lipitor] 40 mg tablet 40 mg PO QHS fluorometholone 0.1 % drops,suspension 1 drp RIGHT EYE TID hydralazine 50 mg tablet 50 mg PO TID ondansetron 4 mg tablet,disintegrating 4 mg PO Q8H PRN (Reason: nausea and vomiting) pantoprazole [Protonix] [address] for susp in packet 40 mg PO DAILY carvedilol 12.5 mg tablet 25 mg PO BID Discontinued fulvestrant [Faslodex] 250 mg/5 mL syringe 500 mg IM QMONTH Patient Comments: pt reports she rcvd this injection today 09/07. Rx Instructions: may divide dose into 2 equally divided injections; one into each buttock Ibrance 125 mg tablet 125 mg PO DAILY Patient Comments: pt to bring from home Rx Instructions: 125 mg orally administer on days 1 through 21 of a 28-day treatment cycle; venlafaxine 37.5 MG capsule 37.5 mg PO DAILY Patient Comments: mood losartan [Cozaar] 100 mg tablet 100 mg PO DAILY sucralfate [Carafate] 1 gram tablet 1 g PO Q8H Referrals / Follow Up: Isela Garcia [Other] - 09/30/24 10:30 am Damaso Hills MD [Med Staff - Active Staff] - (OFFICE WILL CALL PT WITH APPT AFTER DC HAS MOVED TO [place] [facility] [address] [place] [facility] [phone]) Miladys Del Valle, [Primary Care Provider] - 10/13/24 12:15 pm Flores Ly NP-C [Non-Staff] - 10/28/24 11:15 am Disposition Disposition (needs filled in before D/C Order can be placed): [facility] (2) Embolic stroke Qualifiers: Precerebral and cerebral artery: unspecified cerebral artery Qualified Code(s): I63.40 - Cerebral infarction due to embolism of unspecified cerebral artery (10) Fecal incontinence Qualifiers: Fecal incontinence type: full incontinence of feces Qualified Code(s): R15.9 - Full incontinence of feces (11) Urinary incontinence Qualifiers: Urinary Incontinence type: urinary incontinence without sensory awareness Qualified Code(s): N39.42 - Incontinence without sensory awareness (19) GERD (gastroesophageal reflux disease) Qualifiers: Esophagitis presence: esophagitis presence not specified Qualified Code(s): K21.9 - Gastro-esophageal reflux disease without esophagitis (20) Hyperlipidemia Qualifiers: Hyperlipidemia type: unspecified Qualified Code(s): E78.5 - Hyperlipidemia, unspecified (22) Breast cancer Qualifiers: Breast location: unspecified site of breast Laterality: unspecified laterality Patient sex: female
--- NOTE | 2024-10-07 15:14 | DS.PCM_ITS ---
Providers Date of Admission: 09/26/24 Date of Discharge: 10/09/24 Primary Care Physician: Dr. Miladys Del Valle, DO Consultations 10/06/24 15:03 Consult: Gastroenterology Routine Consulting Provider: Kathy Gastroenter[facility] Reason for Consult: anemia with heme + stool on ELiquis EMERGENT Consult: No MD Notified: Yes Date Notified: 10/06/24 Time Notified: 15:03 Method of Notification: Text Reason For Visit: Post stroke debility Diagnosis Discharge Diagnosis (1) Debility: Status: Acute Code(s): R53.81 - Other malaise Plan: Pt was still not recovered from Abd surgery for intestinal intussusception in July 2024 before being admitted to the hospital with multiple embolic CVAs. (2) Embolic stroke: Status: Acute Code(s): I63.9 - Cerebral infarction, unspecified Qualifiers: Precerebral and cerebral artery: unspecified cerebral artery Qualified Code(s): I63.40 - Cerebral infarction due to embolism of unspecified cerebral artery Plan: Multiple foci of infarction BL. No hx of AF. No PFO or ASD on ECHO. Emboli presumed to be secondary to hypercoagulable state related to malignancy. MRI showed punctate foci of diffusion restriction in the bilateral parietal lobes, the right occipital lobe and the left cerebellar hemisphere. (3) Hypercoagulable state: Status: Suspected Code(s): D68.59 - Other primary thrombophilia Plan: Due to metastatic breast cancer. 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 (CVA): Status: Acute Code(s): I63.9 - Cerebral infarction, unspecified; R41.89 - Other symptoms and signs involving cognitive functions and awareness (5) Acute on chronic anemia: Status: Acute Code(s): D64.9 - Anemia, unspecified Plan: EGD done on 08/07/[address] Alvarez. (6) Heme positive stool: Status: Acute Code(s): R19.5 - Other fecal abnormalities (7) Generalized muscle weakness: Status: Chronic Code(s): M62.81 - Muscle weakness (generalized) Plan: Never really fully recovered her strength after the abd surgery in July 2024 for intestinal intussusception secondary to a metastatic breast lesion in the small intestine. (8) History of intussusception of intestine: Status: Chronic Code(s): Z87.19 - Personal history of other diseases of the digestive system Plan: Due to a mass in the small intestine due to metastatic breast CA. (9) Exercise hypoxemia: Status: Acute Code(s): R09.02 - Hypoxemia Plan: This may be chronic. she is saturating fine on RA while sitting in the recliner reading but, she drops into the mid 80's with exertion........She started out on 2 LPM with exertion but, now she is only requiring 1 LPM. (10) Fecal incontinence: Status: Acute Code(s): R15.9 - Full incontinence of feces Qualifiers: Fecal incontinence type: full incontinence of feces Qualified Code(s): R15.9 - Full incontinence of feces Plan: This is improving and it is now intermittent. (11) Urinary incontinence: Status: Acute Code(s): R32 - Unspecified urinary incontinence Qualifiers: Urinary Incontinence type: urinary incontinence without sensory awareness Qualified Code(s): N39.42 - Incontinence without sensory awareness Plan: Intermittent now. Taking her to the toilet at a scheduled time has been helping. (12) Anxiety: Status: Chronic Code(s): F41.9 - Anxiety disorder, unspecified Plan: Could not get the BP within goal on 3 antihypertensives at admission. Started Klonopin BID and the BP is better controlled......still with mild systolic HTN when she is anxious (increased after she was told on 10/06/24 that she needed to have an EGD). Diastolic is always within goal now. Was on Effexor at admission to rehab and was having insomnia and increased anxiety. Effexor is known to be associated with these side effects. Effexor was discontinued and she was started on Sertraline which she is tolerating well. Klonopin was decreasd to 0.25 mg Q12H on 10/06/24. (13) Mild left atrial enlargement: Status: Chronic Code(s): I51.7 - Cardiomegaly (14) History of pulmonary hypertension: Status: Chronic Code(s): Z86.79 - Personal history of other diseases of the circulatory system (15) Obstructive sleep apnea: Status: Chronic Code(s): G47.33 - Obstructive sleep apnea (adult) (pediatric) Plan: Compliant with CPAP (16) Chronic leukopenia: Status: Chronic Code(s): D72.819 - Decreased white blood cell count, unspecified Plan: Comes and goes. No serious leukopenia while on rehab. WBC on 10/07/24 was normal at 4.8. (17) History of depression: Status: Chronic Code(s): Z86.59 - Personal history of other mental and behavioral disorders Plan: tolerating Sertraline 100 mg daily with no adverse side effects. (18) Pleural effusion: Status: Chronic Code(s): J90 - Pleural effusion, not elsewhere classified Plan: The left pleural effusion is small and is not enlarging. No treatment needed on rehab. she has had a pleurodesis on the R in the past for a malignant pleural effusion. (19) GERD (gastroesophageal reflux disease): Status: Chronic Code(s): K21.9 - Gastro-esophageal reflux disease without esophagitis Qualifiers: Esophagitis presence: esophagitis presence not specified Qualified Code(s): K21.9 - Gastro-esophageal reflux disease without esophagitis (20) Hyperlipidemia: Status: Chronic Code(s): E78.5 - Hyperlipidemia, unspecified Qualifiers: Hyperlipidemia type: unspecified Qualified Code(s): E78.5 - Hyperlipidemia, unspecified (21) Essential (primary) hypertension: Status: Chronic Code(s): I10 - Essential (primary) hypertension Plan: Difficult to control, emery when anxiety is not controlled. At the time of discharge she is taking lisinopril 20 mg twice daily, hydrochlorothiazide 12.5 mg daily, hydralazine 50 mg 3 times daily and Coreg 25 mg twice daily. Consider CTA of the renal arteries going forward to r/o ANAHI as contributing to HTN. TSH is normal. Cortisol is also normal. (22) Breast cancer: Status: Chronic Code(s): C50.919 - Malignant neoplasm of unspecified site of unspecified female breast Qualifiers: Breast location: unspecified site of breast Laterality: unspecified laterality Patient sex: female Plan: Will follow up with Dr. Hills who plans on discontinuing Faslodex and Ibrance and starting Enhertu. Echocardiogram showed a normal left ventricular ejection fraction recently. Bubble study was negative. She has grade 1 diastolic dysfunction. Both atria were of normal size. She has sclerosis of the aortic valve with no stenosis. Plan 1. Plan discharge to [facility] on 10/09/2024. 2. Will follow-up with Dr. Hills, Dr. Del Valle (PCP), Flores Ly NP-Calvin for results of event monitor and Isela Garcia. 3. EGD did not reveal a source of GI blood loss. Not unusual to have heme + stool in patients on AC's. If the HGB continues to drop she will need to follow up with Dr. Alvarez for a colonoscopy. 4. HGB is 10.1 at ID. Medications at Discharge Home Medications multivitamin 1 ea PO DAILY SUPPLEMENT 09/12/15 cyanocobalamin (vitamin B-12) 5,000 mcg disintegrating tablet 5,000 mcg PO DAILY supplement 09/30/21 elderberry fruit 460 mg-elderberry flower 115 mg capsule 1 cap PO DAILY supplement 09/30/21 acetaminophen 500 mg tablet 1,000 mg PO Q6H PRN pain 09/26/24 apixaban 5 mg tablet (Eliquis) 5 mg PO BID blood thinner 09/26/24 aspirin 81 mg tablet 81 mg PO DAILY heart health 09/26/24 atorvastatin 40 mg tablet (Lipitor) 40 mg PO QHS cholesterol 09/26/24 carvedilol 12.5 mg tablet 25 mg PO BID blood pressure 09/26/24 fluorometholone 0.1 % eye drops,suspension 1 drp RIGHT EYE TID FML 09/26/24 hydralazine 50 mg tablet 50 mg PO TID blood pressure 09/26/24 ondansetron 4 mg disintegrating tablet 4 mg PO Q8H PRN nausea and vomiting 09/26/24 pantoprazole 40 mg granules delayed-release for susp in packet (Protonix) 40 mg PO DAILY reflux 09/26/24 bisacodyl 10 mg rectal suppository 10 mg FL X1 PRN Constipation #1 ea 10/07/24 clonazepam 0.5 mg tablet 0.25 mg (1/2 x 0.5 mg) PO 699,1999 #14 tabs 10/07/24 hydrochlorothiazide 12.5 mg capsule 12.5 mg PO DAILY #1 cap 10/07/24 hydrocortisone acetate 25 mg rectal suppository 25 mg FL BID PRN PRN hematochezia/rectal pain #12 ea 10/07/24 lisinopril 20 mg tablet 20 mg PO BID #1 TAB 10/07/24 magnesium hydroxide 400 mg/5 mL oral suspension 30 ml PO X1 PRN Constipation #30 mL 10/07/24 potassium chloride 20 mEq tablet,extended release(part/cryst) 20 meq PO DAILYCM #1 TAB 10/07/24 sennosides 8.6 mg-docusate sodium 50 mg tablet (Stimulant Laxative Plus) 2 tab PO BID #1 TAB 10/07/24 sertraline 100 mg tablet 100 mg PO DAILY #1 TAB 10/07/24 sucralfate 1 gram tablet 1 g PO 1HR_ACHS #1 TAB 10/07/24 ascorbic acid (vitamin C) 1,000 mg tablet (Vitamin C) 1,000 mg PO Q48H #1 TAB 10/08/24 ferrous sulfate 325 mg (65 mg iron) tablet 325 mg PO QODAY #1 TAB 10/08/24 Hospital Course Operations None Procedures Transthoracic echo (Normal left ventricular ejection fraction estimated at 60 to 65%. Grade 1 diastolic dysfunction. Aortic valve sclerosis with no stenosis. Moderately increased septal and mildly increased posterior left ventricular wall thickness. Negative bubble contrast study. The echo was done at [facility]) Summary of Care Provided Minutes Spent on Discharge: 48 Hospital Course: BIANCA MORAES, is a 79 YO F with a PMH of [place], Breast CA treated with Faslodex and Ibrance (metastatic to right iliac bone, pleura and intestine), hiatal hernia, GERD, obesity, hyperlipidemia, depression, allergic rhinitis, mild tricuspid and mitral valve regurgitation, paroxysmal SVT, obstructive sleep apnea tobacco dependence in remission, chronic leukopenia, chronic anemia and recent (July 2024) ileocolic intussusception requiring ileocecectomy (BX + for metastatic breast CA) who presented to an outside emergency department on 09/18/2024 complaining of trouble speaking. NIH was [address] brain showed no acute findings. The symptoms resolved while she was in the emergency department. She was admitted to the hospital with a DX of TIA. UA in the ED showed + Leuk est and she was empirically started on an antibiotic. Urine culture had no significant growth and antibiotics were discontinued. An MRI was done and showed punctate foci of diffusion restriction in the right paramedian parietal lobe and the right occipital lobe. She was kept on aspirin and a statin. On 09/21/2024 she had increasing neurologic deficits and a repeat MRI was done and showed new strokes in the bilateral parietal lobes and left cerebellar hemisphere. She was started on anticoagulation with Eliquis. On 09/[address] chest that showed bibasilar airspace opacities and diffuse interstitial infiltrates. There were bilateral pleural effusions. She was diagnosed with volume overload and diuresed with good improvement in hypoxia. On 09/26/2024 she was transferred to the acute inpatient rehab unit at [facility] for 3 hours of therapy daily to restore function/independence at or near her level prior to the recent strokes. Bianca never completely recovered from the ileocecectomy done in July 2024. She briefly went to a long term unit but stayed only a short time and then went home. At the time she presented to acute rehab she had generalized weakness and severe cognitive deficits. She scored a 30/50 on the BCAT (brief cognitive assessment tool) at admission to rehab. A hemoccult stool was checked at admission to rehab and it was positive. A Hemoccult stool in August 2024 was negative. She was on both Carafate and Protonix at admission to rehab. Hemoglobin at admission to rehab was 8.6 and it dropped to 7.3 on 10/06/2024. Eliquis was placed on hold and he was transfused with 2 units of packed red blood cells. The hemoglobin on 10/07/2024 was 9.6. Following transfusion she was more alert, less fatigued and she did better with therapy on 10/07. She had an EGD performed by Dr. Alvarez on 10/07/2024 and it showed normal esophagus, normal stomach and normal duodenum with no source of blood loss identified. Hemoglobin on 10/08/2024 is stable at 10.1. Not unusual to have heme + stool in a patient on anticoagulation. If the hemoglobin continues to drop and she is requiring transfusions she will need to follow-up with Dr. Alvarez to have a colonoscopy. She has required transfusion in the past for anemia. Iron studies while on rehab were not consistent with iron deficiency. Will start an iron supplement QOD at ID from rehab. Bianca was very anxious at admission to rehab and also depressed. She had insomnia and also constipation. She was taking Effexor for depression. Increased anxiety, increased BP, insomnia and constipation are known side effects of Effexor. Effexor was discontinued and she was started on Sertraline. The dose at DC from rehab is 100 mg which she is tolerating with no adverse side effects. She is also taking Klonopin 0.25 mg Q 12 HR. WE were giving 0./5 mg at HS but, she was fatigued in the AM and the dose was decreased to 0.25 mg. She is more alert in the mornings now. She complained of some anxiety on the day of DC. Some of this is associated with cognitive deficits and not remembering information from day to day. She thinks the plan keeps changing when in reality she just can not recall from one day to the next what is happening and what the plan for ongoing treatment is. She is getting stronger with therapy. Still with significant cognitive deficits at DC. Would not be safe at home alone and would need 24/ supervision which family is not able to provide at this time. She is going to be discharged to [facility] for additional therapy/strengthening. At this time discharge from rehab she is able to ascend/descend 6 steps total with bilateral handrails at contact-guard assist/min assist. She has completed the TUG test in 47.31 seconds and she is able to do 4 sit to stands in 30 seconds. She has ambulated up to 150 feet with a front wheeled walker with a wheelchair follow at min assist. Oxygen desaturates with exertion and we have her on 1 LPM with exertion. Pulse ox if WNL at rest and she can be off oxygen when she is sitting in the recliner reading. She is able to complete transfers from various surfaces but still requires contact-guard assist. She is supervision/set up for eating and grooming. She is contact-guard assist for toilet transfer and requires minimal assistance with toileting. She is contact- guard assist for upper body dressing and min assist for lower body dressing. She is min assist for tub/shower transfer. I think she will continue to get stronger with additional therapy. The barrier to her returning to independent living will be the cognitive dysfunction. At admission to rehab the BCAT score was 30/50. It was repeated prior to DC on 10/07 and the score was 32/50 still indicating significant cognitive dysfunction or dementia. She has no significant swallowing deficits and she is on thin liquids and regular textures. Physical Exam Const alert, oriented x3 and no apparent distress Constitutional Narrative: Forgetful. Seems a little anxious today and she admits to this. Knows she is being discharged but, does not know where she is going. She is pleasant and talkative and making good eye contact with me. More alert in the mornings since the dose of Klonopin at HS was decreased to 0.25 mg. Continues to sleep well at night and she has a good appetite General Appearance: cooperative and comfortable HEENT normocephalic, head/scalp atraumatic and hearing grossly normal bilaterally HEENT Narrative: Mucous membranes are little dry. No evidence of thrush. Eyes PERRL, EOMs intact bilaterally, conjunctivae normal and no scleral icterus Eyes Narrative: No discharge from the eyes. No visual field cuts. Neck supple General: trachea midline Chest Chest: symmetrical chest wall rise Resp normal respiratory effort, normal air movement, no use of accessory muscles and clear to auscultation bilaterally Resp Narrative: O2 saturation with exertion on room air is in the mid 80s and she is on supplemental oxygen with activity. Effort and Inspection: able to speak in complete sentences Cardio regular rate, regular rhythm, S1 normal heart sound, S2 normal heart sound, no murmurs and no gallops Cardio Narrative: No ectopy. She has a systolic murmur at the second right intercostal space with radiation to the left ventricular outflow tract, lower left sternal border and the apex. Echocardiogram shows aortic sclerosis with no stenosis. GI normal to inspection, nondistended, normoactive bowel sounds, soft to palpation, non-tender and non-distended GI Narrative: Full fecal incontinence at admission but now only intermittent. no CVA tenderness Narrative: Had full urinary, incontinence at admission to rehab but now is often able to tell us when she has to use the bathroom, especially during the day. Extremity no calf tenderness and no pedal edema Skin no rashes or lesions noted Neuro Neuro Narrative: Continues to have generalized weakness. Strength is equal in all the extremities with no drift. Speech is more fluent and she is not having as much difficulty with word finding when compared to the admission H&P. Intact sensation. No ataxia. No extinction. No visual field cuts. Tongue protrudes on the midline. Continues to have severe cognitive dysfunction. Has not been setting off alarms. Calls for the nurse when she needs to use the RR. Cooperative. Less impulsive. Psych cooperative Psych Narrative: More engaged with me when we are talking. Less anxious than at admission. Anxiety has increased the past few days........suspect due to impending DC......emery since she will not be going home. Affect is still somehwhat flat. Appearance: grossly normal, appropriate and well kempt Attitude: calm and engaged Activity / Motor Behavior: appropriate eye contact Weight / BMI Weight Weight: 168 lb 3.403 oz Body Mass Index (BMI) 34.0 ABG / Lab / Microbiology Data 10/08/24 06:40 10/07/24 05:35 Laboratory: Laboratory Results - last 24 hr 10/06/24 13:45: Blood Type O POSITIVE, Antibody Screen NEGATIVE, Crossmatch See Detail 10/06/24 22:34: Hgb 9.6 L, Hct 28.3 L 10/07/24 05:35: WBC 4.8, RBC 3.13 L, Hgb 9.6 L, Hct 28.6 L, MCV 91.4 D, MCH 30.7, MCHC 33.6, RDW Std Deviation 68.1 H, RDW Coeff of Isaias 21.1 H, Plt Count 183, MPV 9.8, Immature Gran % (Auto) 3.500 H, Neut % (Auto) 73.8 H, Lymph % (Auto) 8.5 L, [place] % (Auto) 9.6, Eos % (Auto) 2.1, Baso % (Auto) 2.5 H, Absolute Neuts (auto) 3.6, Absolute Lymphs (auto) 0.41 L, Nucleated RBC % 0, Differential Comment COMMENT, Anisocytosis 2+, PT 19.9 H, INR 1.7, APTT 41.3 H, Sodium 137, Potassium 3.3, Chloride 101, Carbon Dioxide 25.7, Anion Gap 10, BUN 13, Creatinine 0.88, Estim Creat Clear Calc 48.87 L, Est GFR (MDRD) Non-Af 68, BUN/Creatinine Ratio 15.2, Glucose 94, Calcium 8.9 Microbiology: Microbiology 09/30/24 09:45 Stool Stool Occult Blood (GEGE) - Final Occult Blood Positive Indicators for Scoring Admitted with or Primary Diagnosis of CVA/Stroke: Yes Hx of CVA/Stroke: Yes Modified [place] Score MRS Score at time of Evaluation: 4-Moderate/severe disability (predominantly due to severe cognitive dysfunction. ) NIHSS NIHSS 1a. Level of Consciousness: 0 - Alert; keenly responsive 1b. LOC Questions: 0 - Answers BOTH questions correctly 1c. LOC Commands: 0 - Performs BOTH tasks correctly 2. Best Gaze: 0 - Normal 3. Visual: 0 - No visual loss 4. Facial Palsy: 0 - Normal symmetrical movements 5a. Left Arm: 0 - No drift; arm holds 90 (or 45) degrees for full 10 seconds 5b. Right Arm: 0 - No drift; arm holds 90 (or 45) degrees for full 10 seconds 6a. Left Le - No drift; leg holds 30-degree position for full 5 seconds 6b. Right Le - No drift; leg holds 30-degree position for full 5 seconds 7. Limb Ataxia: 0 - Absent 8. Sensory: 0 - Normal; no sensory loss 9. Best Language: 0 - No aphasia; normal (cognitive dysfunction is primarily with higher level executive functioning/reasoning/problem solving. She was able to identify all the objects I showed her and she is able to read all the words and the sentences on the NIHSS exam card. ) 10. Dysarthria: 0 - Normal 11. Extinction and Inattention: 0 - No abnormality Total: 0 Stroke Questions Stroke Team Activated: No D/C Instructions Diet Diet Order/Speech Therapy: INPATIENT Hospital Diet / Speech Therapy Order(s) 10/07/24 00:01 Diet: Nothing Per Oral Discharge order: Continue INPATIENT Hospital Diet / Speech Therapy Orders: No Discharge Diet: Low fat / Low cholesterol and 4000 mg Sodium Diet DC O2, CPAP, BIPAP Needs RN Home O2 qualification: 2 No Data to Display Home Oxygen Instructions: Home O2 discharge Instructions Type of respiratory needs? Oxygen 10/07/24 11:40 DC Oxygen Instruction Oxygen frequency With Ambulation 10/07/24 11:40 Oxygen liters per minute 1-2 10/07/24 11:40 during Ambulation Home O2 Discharge instructions: Yes Type of respiratory needs?: Oxygen (Oxygen at rest is WNL but, she desaturates with exertion. ) Oxygen frequency: With Ambulation Oxygen liters per minute during Ambulation: 1-2 DC home with Oxygen: Yes Home O2 MD Review: I have reviewed the oxygen testing, and the patient qualifies for home oxygen equipment and portability. The patient is mobile in the home and the community. Needs O2 supplementation with exertion due to desaturation into the mid 80's Meaningful Use Info Meaningful Use Meaningful Use Diagnoses (Choose all that apply): Ischemic CVA (Multiple bilateral embolic CVAs due to hypercoagulable state related to breast CA) CVA Therapy Assessed for PT,OT and/or ST?: Yes Ischemic Stroke Antithrombotic order at d/c?: Yes Dx of Atrial fib/flutter?: No Anticoagulant at discharge?: Yes Statin Dosing Therapy Reference: STATIN DOSE THERAPY REFERENCE: * Patients > 75 years receive moderate or high dose statin therapy. * Patients 75 years or YOUNGER should receive HIGH intensity statin dose unless contraindicated. You will be required to document reason for non-treatment if statin daily dose does not meet guidelines. HIGH DOSE STATIN THERAPY DAILY Atorvastatin > than or = to 40 mg Rosuvastatin > than or = to 20 mg Amlodipine + Atorvastatin > than or = to 2.5/40 mg Ezetimibe + Simvastatin 10/80 mg Simvastatin 80mg Statins at discharge?: Yes Primary Dx Acute Ischemic CVA?: Yes IV thrombolytic ordered during stay?: No Reason IV thrombolytic not ordered: Procedure not Indicated Discharge Plan Admission Admit Date/Time: 09/26/24 17:38 Primary Reason for Your Visit: debility due to multiple embolic CVA's. Attending Provider: Isela Huggins Primary Care Provider: Miladys Del Valle Instructions Additional Instructions / Restrictions: 1. At presentation to rehab she was incontinent of urine and stool continuously. Prior to DC she is intermittently continent of both urine and stool. 2. Strength has improved while on rehab but, she still fatigues easily and then her legs get shaky. 3. She is down to 1 LPM of oxygen with exertion at the time of DC from rehab. 4. Cognition is improving and speech is much more fluent now....less problem with word finding. 5. Sleeping well at night now and good appetite. 6. Anxiety is better controlled. Would benefit from psychotherapy. 7. Has been wearing an event monitor while on rehab and she will follow up with Flores BENITEZ post DC to review the results of the monitor. She has had no AF anytime I have examined her on rehab. 8. Dr. Hills's office is supposed to call her (or her family) to schedule follow up for her to start new tx for breast CA with new mets. 9. EGD revealed normal esophagus, normal stomach and normal duodenum with no source of bleeding. If she continues to require transfusions then drop the hemoglobin she will need to follow-up with Dr. Alvarez for colonoscopy. Discharge Orders/Prescriptions Prescriptions: New clonazepam 0.5 mg Tablet 0.25 mg PO 699,1999 Qty: 14 0RF hydrocortisone acetate 25 mg Suppository 25 mg FL BID PRN PRN (Reason: hematochezia/rectal pain) Qty: 12 0RF bisacodyl 10 mg Suppository 10 mg FL X1 PRN (Reason: Constipation) Qty: 1 0RF hydrochlorothiazide 12.5 mg Capsule 12.5 mg PO DAILY Qty: 1 0RF sucralfate 1 gram Tablet 1 g PO 1HR_ACHS Qty: 1 0RF lisinopril 20 mg Tablet 20 mg PO BID Qty: 1 0RF sennosides-docusate sodium [Stimulant Laxative Plus] 8.6-50 mg Tablet 2 tab PO BID Qty: 1 0RF sertraline 100 mg Tablet 100 mg PO DAILY Qty: 1 0RF potassium chloride 20 mEq Tablet,Er Particles/Crystals 20 meq PO DAILYCM Qty: 1 0RF magnesium hydroxide 400 mg/5 mL Suspension 30 ml PO X1 PRN (Reason: Constipation) Qty: 30 0RF ferrous sulfate 325 mg (65 mg iron) tablet 325 mg PO QODAY Qty: 1 0RF Rx Instructions: please give with a meal and 1,000 mg of Vitamin C. ascorbic acid (vitamin C) [Vitamin C] 1,000 mg tablet 1,000 mg PO Q48H Qty: 1 0RF Rx Instructions: Please give the Vitamin C and the iron together with a meal every other day. Continued cyanocobalamin (vitamin B-12) 5,000 mcg tablet,disintegrating 5,000 mcg PO DAILY Patient Comments: to bring from home elderberry fruit and flower 460-115 mg capsule 1 cap PO DAILY multivitamin 1 EACH tablet 1 ea PO DAILY Patient Comments: supplement acetaminophen 500 mg tablet 1,000 mg PO Q6H PRN (Reason: pain) Eliquis 5 mg tablet 5 mg PO BID aspirin 81 mg tablet 81 mg PO DAILY atorvastatin [Lipitor] 40 mg tablet 40 mg PO QHS fluorometholone 0.1 % drops,suspension 1 drp RIGHT EYE TID hydralazine 50 mg tablet 50 mg PO TID ondansetron 4 mg tablet,disintegrating 4 mg PO Q8H PRN (Reason: nausea and vomiting) pantoprazole [Protonix] 40 mg granules for susp in packet 40 mg PO DAILY carvedilol 12.5 mg tablet 25 mg PO BID Discontinued fulvestrant [Faslodex] 250 mg/5 mL syringe 500 mg IM QMONTH Patient Comments: pt reports she rcvd this injection today 09/07. Rx Instructions: may divide dose into 2 equally divided injections; one into each buttock Ibrance 125 mg tablet 125 mg PO DAILY Patient Comments: pt to bring from home Rx Instructions: 125 mg orally administer on days 1 through 21 of a 28-day treatment cycle; venlafaxine 37.5 MG capsule 37.5 mg PO DAILY Patient Comments: mood losartan [Cozaar] 100 mg tablet 100 mg PO DAILY sucralfate [Carafate] 1 gram tablet 1 g PO Q8H Referrals / Follow Up: Isela Garcia [Other] - 09/30/24 10:30 am Damaso Hills MD [Med Staff - Active Staff] - (OFFICE WILL CALL PT WITH APPT AFTER DC HAS MOVED TO [place] [id number] [address] [facility] [phone]) Miladys Del Valle DO [Primary Care Provider] - 10/13/24 12:15 pm FriendBiju DO [Med Staff - Active Staff] - (Will need F/U for possible lower GI d/t positive occult stool and low hemoglobin ) Flores Ly NP-C [Non-Staff] - 10/28/24 11:15 am Disposition Disposition (needs filled in before D/C Order can be placed): [facility] Facility Charges/Coding Visit Charges Inpatient E&M: 56674 Disch Hosp >30min
[2024-10-07] MEDS: Lactated Ringers 1,000 ML 15 ML IV (15:39)
--- NOTE | 2024-10-07 15:50 | PCM.PRE.AN2 ---
ASA Classification* ASA Classification ASA Classification: 3 and E Assessment & Plan Anesthesia* Anesthesia Assessment Anesthesia Assessment: Discussed sedation and/or anesthesia options, risks, benefits, and alternatives with patient/parents/legal guardian/POA. Questions invited. The patient/parents/legal guardian/POA seems to understand and agrees to proceed with anesthesia plan. Reviewed the physical assessment, medical history, allergy history and patient home medications list prior to surgery/procedure/anesthetic and documented any changes. Performed airway and anesthesia risk assessments. Anesthesia Type Anesthesia Type: MAC History Source History Obtained from:: Patient and Chart Anesthesia Focused Assessment* Temperature: 98.4 F Pulse Rate: 65 Blood Pressure: 153/51 Respiratory Rate: 16 Pulse Ox: 91 Oxygen Delivery Method: Room Air Oxygen Flow Rate (L/min): 2 Airway Assessment Mouth opens: >3 cm Mallampati Score: IV Teeth Condition: Intact Neck Range of motion (ROM): Limited ROM (Somewhat Decreased) Labs Anesthesia Preop lab: CBC WBC 4.8 K/mm3 (4.4-11.0) 10/07/24 05:35 10/07/24 RBC 3.13 M/mm3 (4.2-5.4) L 10/07/24 05:35 10/07/24 Hgb 9.6 g/dL (12.0-15.0) L 10/07/24 05:35 10/07/24 Hct 28.6 % (37-47) L 10/07/24 05:35 10/07/24 Plt Count 183 K/mm3 (150-450) 10/07/24 05:35 10/07/24 CHEMISTRY Potassium 3.3 mmol/L (3.3-5.1) 10/07/24 05:35 10/07/24 Sodium 137 mmol/L (133-145) 10/07/24 05:35 10/07/24 Magnesium 2.0 mg/dL (1.5-2.2) 09/27/24 06:50 09/27/24 Phosphorus 2.5 mg/dL (2.7-4.5) L 09/27/24 06:50 09/27/24 BUN 13 mg/dL (4-19) 10/07/24 05:35 10/07/24 Creatinine 0.88 mg/dL (0.70-1.20) 10/07/24 05:35 10/07/24 Glucose 94 mg/dL (70-99) 10/07/24 05:35 10/07/24 TSH 3.390 uIU/mL (0.300-4.200) 10/01/24 06:56 10/01/24 COAG PT 19.9 SECONDS (11.7-14.9) H 10/07/24 05:35 10/07/24 Pre-Assessment Diagnosis/Proposed Procedure Planned Operative Procedure(s): EGD Anesthesia History 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 When Was Last Pacemaker Check QUESTION #4 FULL TEXT: You/Your Family Experience fever (hyperthermia) with Anesthesia Last Oral Intake Last Oral intake: Last Oral Intake NPO since 00:00 10/07/24 14:10 Meds taken in AM with sips of No 10/07/24 14:10 water? 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 Has anyone observed you stop breathing during sleep? STOP Results Positive 09/26/24 17:44 QUESTION #5 FULL TEXT : Do you snore loudly (louder than talking or can be heard through closed doors)? 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 Specify any problems Hx of Preganancy in last 3 No 09/26/24 17:44 Months Nurse Filling Out Transfusion TIMOTHY 09/26/24 17:44 & Questions: Date: 09/26/24 09/26/24 17:44 Time: 18:24 09/26/24 17:44 Patient unable to answer at this time (ie. 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: /Reproductive Hx- middle school english teacher Hx Now No 10/06/24 22:23 Gestational Age (in weeks): EDC: Hx Hx Para Hx Section SAB No 10/06/24 22:23 Active Medications Active Medications: Current Medications Generic Name Dose Route Start Last Admin Trade Name Freq PRN Reason Stop Dose Admin Acetaminophen 1,000 mg 09/26/24 18:08 10/03/24 05:44 Acetaminophen 500 Mg Tablet PO 1,000 mg Q6H PRN Administration Pain Score 1-10 Apixaban 5 mg 09/26/24 22:00 10/06/24 21:02 Apixaban 5 Mg Tablet PO 5 mg BID REJI Administration Aspirin 81 mg 09/27/24 08:00 10/07/24 09:43 Aspirin 81 Mg Tab.Chew PO Not Given BREAKFAST [facility] Atorvastatin Calcium 40 mg 09/26/24 22:00 10/06/24 21:02 Atorvastatin Calcium 40 Mg Tablet PO 40 mg QHS REJI Administration Bisacodyl 10 mg 09/26/24 18:15 Bisacodyl 10 Mg Suppository RC X1 PRN Constipation Carvedilol 25 mg 09/26/24 22:00 10/07/24 09:43 Carvedilol 25 Mg Tablet PO Not Given BID REJI Clonazepam 0.25 mg 10/06/24 20:00 10/06/24 21:00 Clonazepam 0.5 Mg Tablet PO 0.25 mg 2000 REIJ Administration Cyanocobalamin 5,000 mcg 10/02/24 10:00 10/06/24 09:10 Cyanocobalamin 500 Mcg Tablet PO 5,000 mcg DAILY RJEI Administration Hydralazine HCl 50 mg 09/26/24 22:00 10/07/24 04:39 Hydralazine 50 Mg Tablet PO Not Given TID [facility] Protocol Hydrochlorothiazide 12.5 mg 10/04/24 10:00 10/06/24 09:18 Hydrochlorothiazide 12.5mg PO 12.5 mg DAILY REJI Administration Protocol Hydrocortisone Acetate 25 mg 09/27/24 10:00 Hydrocortisone 25 Mg Suppository RC BID PRN PRN hematochezia/rectal pain Sodium Chloride 250 mls @ 15 mls/hr 10/06/24 15:10 10/06/24 23:26 IV Infused DAILY PRN PRN Infusion BLOOD ADMINISTRATION Lactated Ringer's 1,000 mls @ 15 mls/hr 10/07/24 15:30 10/07/24 15:39 IV 15 mls/hr .Q48H REJI Administration Lisinopril 20 mg 09/30/24 22:00 10/07/24 09:44 Lisinopril 20 Mg Tablet PO Not Given BID [facility] Protocol Magnesium Hydroxide 30 ml 09/26/24 18:15 Magnesium Hydroxide 30 Ml Udc PO X1 PRN Constipation Multivitamins 1 tablet 09/27/24 08:00 10/07/24 09:43 Multivitamins,Therapeutic Tablet PO Not Given DAILYCM REIJ Ondansetron HCl 4 mg 09/26/24 18:08 Ondansetron Odt 4 Mg Tablet PO Q8H PRN nausea and vomiting Pantoprazole Sodium 40 mg 09/27/24 10:00 10/06/24 09:09 Pantoprazole Sodium 40 Mg Tablet PO 40 mg DAILY REJI Administration Potassium Chloride 40 meq 10/07/24 18:00 Potassium Chloride Oral Tablet 20 Meq PO 10/07/24 18:01 X1 ONE Potassium Chloride 20 meq 10/08/24 08:00 Potassium Chloride Oral Tablet 20 Meq PO DAILYCM REJI Senna/Docusate Sodium 2 tablet 09/26/24 22:00 10/07/24 09:44 Senna/Docusate Sodium 1 Tablet PO Not Given BID REJI Sertraline HCl 100 mg 10/05/24 10:00 10/06/24 09:10 Sertraline 100 Mg Tablet PO 100 mg DAILY REJI Administration Sodium Chloride 10 - 40 ml 10/06/24 15:10 10/06/24 15:35 0.9% Saline Lock 10 Ml Syringe IV 20 ml UD PRN Administration SALINE FLUSH Sucralfate 1 gm 09/26/24 22:00 10/07/24 04:39 Sucralfate 1 Gm Tablet PO Not Given 1HR_ACHS REJI PFSH Medical History Hypertension TIA (transient ischemic attack) Stroke/cerebrovascular accident History of cardiac dysrhythmia Grade I diastolic dysfunction Mild left atrial enlargement History of pulmonary hypertension Chronic leukopenia Obstructive sleep apnea History of depression Pleural effusion Hiatal hernia Breast cancer GERD (gastroesophageal reflux disease) Hyperlipidemia Essential (primary) hypertension Home Medications ?Medication ?Instructions ?Recorded ?Last Taken ?Type multivitamin 1 ea PO DAILY SUPPLEMENT 09/12/15 Unknown History cyanocobalamin (vitamin B-12) 5,000 mcg PO DAILY supplement 09/30/21 Unknown History 5,000 mcg disintegrating tablet elderberry fruit 460 mg-elderberry 1 cap PO DAILY supplement 09/30/21 Unknown History flower 115 mg capsule acetaminophen 500 mg tablet 1,000 mg PO Q6H PRN pain 09/26/24 Unknown History apixaban 5 mg tablet (Eliquis) 5 mg PO BID blood thinner 09/26/24 09/26/24 History aspirin 81 mg tablet 81 mg PO DAILY heart health 09/26/24 09/26/24 History atorvastatin 40 mg tablet (Lipitor) 40 mg PO QHS cholesterol 09/26/24 09/25/24 History carvedilol 12.5 mg tablet 25 mg PO BID blood pressure 09/26/24 09/26/24 History fluorometholone 0.1 % eye 1 drp RIGHT EYE TID FML 09/26/24 09/26/24 History drops,suspension hydralazine 50 mg tablet 50 mg PO TID blood pressure 09/26/24 09/26/24 History ondansetron 4 mg disintegrating 4 mg PO Q8H PRN nausea and vomiting 09/26/24 Unknown History tablet pantoprazole 40 mg granules 40 mg PO DAILY reflux 09/26/24 Unknown History delayed-release for susp in packet (Protonix) bisacodyl 10 mg rectal suppository 10 mg NM X1 PRN Constipation #1 ea 10/07/24 Unknown Rx clonazepam 0.5 mg tablet 0.25 mg (1/2 x 0.5 mg) PO 10/07/24 Unknown Rx #14 tabs hydrochlorothiazide 12.5 mg capsule 12.5 mg PO DAILY #1 cap 10/07/24 Unknown Rx hydrocortisone acetate 25 mg 25 mg NM BID PRN PRN 10/07/24 Unknown Rx rectal suppository hematochezia/rectal pain #12 ea lisinopril 20 mg tablet 20 mg PO BID #1 TAB 10/07/24 Unknown Rx magnesium hydroxide 400 mg/5 mL 30 ml PO X1 PRN Constipation #30 mL 10/07/24 Unknown Rx oral suspension potassium chloride 20 mEq 20 meq PO DAILYCM #1 TAB 10/07/24 Unknown Rx tablet,extended release(part/cryst) sennosides 8.6 mg-docusate sodium 2 tab PO BID #1 TAB 10/07/24 Unknown Rx 50 mg tablet (Stimulant Laxative Plus) sertraline 100 mg tablet 100 mg PO DAILY #1 TAB 10/07/24 Unknown Rx sucralfate 1 gram tablet 1 g PO 1HR_ACHS #1 TAB 10/07/24 Unknown Rx Allergy/AdvReac Type Severity Reaction Status Date / Time Iodinated Contrast Media Allergy Intermediate Rash Verified 09/07/24 15:18 (Iodinated Contrast- Oral and IV Dye) Sulfa (Sulfonamide Allergy Rash Verified 09/07/24 15:18 Antibiotics) Family History Mother CAD (coronary artery disease) Surgical History History of intussusception of intestine History of lung surgery History of left knee replacement History of hernia repair (~07/2016) History of breast reconstruction History of breast biopsy History of total right knee replacement History of partial mastectomy of right breast Status post wrist surgery History of total hysterectomy Social History household members: none housing: house number of children: 2 Smoking Status: Former smoker how long ago did patient quit smoking: > 20 years ago alcohol intake: current alcohol intake frequency: a few times a month details: occasional substance use type: does not use Review of Systems (Anesthesia) ROS Narrative System reviewed and no additional complaints, except as documented.
--- NOTE | 2024-10-07 15:50 | PCM.PRE.AN2 ---
ASA Classification* ASA Classification ASA Classification: 3 and E Assessment & Plan Anesthesia* Anesthesia Assessment Anesthesia Assessment: Discussed sedation and/or anesthesia options, risks, benefits, and alternatives with patient/parents/legal guardian/POA. Questions invited. The patient/parents/legal guardian/POA seems to understand and agrees to proceed with anesthesia plan. Reviewed the physical assessment, medical history, allergy history and patient home medications list prior to surgery/procedure/anesthetic and documented any changes. Performed airway and anesthesia risk assessments. Anesthesia Type Anesthesia Type: MAC History Source History Obtained from:: Patient and Chart Anesthesia Focused Assessment* Temperature: 98.4 F Pulse Rate: 65 Blood Pressure: 153/51 Respiratory Rate: 16 Pulse Ox: 91 Oxygen Delivery Method: Room Air Oxygen Flow Rate (L/min): 2 Airway Assessment Mouth opens: >3 cm Mallampati Score: IV Teeth Condition: Intact Neck Range of motion (ROM): Limited ROM (Somewhat Decreased) Labs Anesthesia Preop lab: CBC WBC 4.8 K/mm3 (4.4-11.0) 10/07/24 05:35 10/07/24 RBC 3.13 M/mm3 (4.2-5.4) L 10/07/24 05:35 10/07/24 Hgb 9.6 g/dL (12.0-15.0) L 10/07/24 05:35 10/07/24 Hct 28.6 % (37-47) L 10/07/24 05:35 10/07/24 Plt Count 183 K/mm3 (150-450) 10/07/24 05:35 10/07/24 CHEMISTRY Potassium 3.3 mmol/L (3.3-5.1) 10/07/24 05:35 10/07/24 Sodium 137 mmol/L (133-145) 10/07/24 05:35 10/07/24 Magnesium 2.0 mg/dL (1.5-2.2) 09/27/24 06:50 09/27/24 Phosphorus 2.5 mg/dL (2.7-4.5) L 09/27/24 06:50 09/27/24 BUN 13 mg/dL (4-19) 10/07/24 05:35 10/07/24 Creatinine 0.88 mg/dL (0.70-1.20) 10/07/24 05:35 10/07/24 Glucose 94 mg/dL (70-99) 10/07/24 05:35 10/07/24 TSH 3.390 uIU/mL (0.300-4.200) 10/01/24 06:56 10/01/24 COAG PT 19.9 SECONDS (11.7-14.9) H 10/07/24 05:35 10/07/24 Pre-Assessment Diagnosis/Proposed Procedure Planned Operative Procedure(s): EGD Anesthesia History Anesthesia History - 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 When Was Last Pacemaker Check QUESTION #4 FULL TEXT: You/Your Family Experience fever (hyperthermia) with Anesthesia Last Oral Intake Last Oral intake: Last Oral Intake NPO since 00:00 10/07/24 14:10 Meds taken in AM with sips of No 10/07/24 14:10 water? Meds patient instructed to take am of surgery PONV PONV - special technical operations officer: PONV - special technical operations officer Female HX of Motion Sickness HX of N/V After Surgery Non-Smoker Duration of Surgery greater than 60 minutes Number of Risk Factors PONV Score Height & Weight Height & Weight: Anesthesia: Height & Weight Height 4 ft 11 in 10/07/24 14:10 Weight: 76.3 kg 10/07/24 14:10 Body Mass Index (BMI) 34.0 10/07/24 14:10 Respiratory Assessment Respiratory Assessment - special technical operations officer: Respiratory Tract Infection Hx - special technical operations officer Hx Respiratory Tract Infection No 10/06/24 22:23 STOP Sleep Apnea STOP Sleep Apnea - special technical operations officer: STOP Sleep Apnea - special technical operations officer Hx Hypertension Yes 10/06/24 23:19 Hx Sleep Apnea Yes 09/26/24 17:44 CPAP Yes 09/26/24 17:44 BIPAP No 09/26/24 17:44 Do you snore loudly (louder than talking or can be heard Do you often feel tired/ fatigued/ sleepy during daytime? Has anyone observed you stop breathing during sleep? STOP Results Positive 09/26/24 17:44 QUESTION #5 FULL TEXT : Do you snore loudly (louder than talking or can be heard through closed doors)? 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 Specify any problems Hx of Preganancy in last 3 No 09/26/24 17:44 Months Nurse Filling Out Transfusion TIMOTHY 09/26/24 17:44 & Questions: Date: 09/26/24 09/26/24 17:44 Time: 18:24 09/26/24 17:44 Patient unable to answer at this time (ie. confused, unrespo /Reproduction History /Reproductive History - special technical operations officer: /Reproductive Hx- special technical operations officer Hx Now No 10/06/24 22:23 Gestational Age (in weeks): EDC: Hx Hx Para Hx Section SAB No 10/06/24 22:23 Active Medications Active Medications: Current Medications Generic Name Dose Route Start Last Admin Trade Name Freq PRN Reason Stop Dose Admin Acetaminophen 1,000 mg 09/26/24 18:08 10/03/24 05:44 Acetaminophen 500 Mg Tablet PO 1,000 mg Q6H PRN Administration Pain Score 1-10 Apixaban 5 mg 09/26/24 22:00 10/06/24 21:02 Apixaban 5 Mg Tablet PO 5 mg BID REJI Administration Aspirin 81 mg 09/27/24 08:00 10/07/24 09:43 Aspirin 81 Mg Tab.Chew PO Not Given [facility]AK[facility] Atorvastatin Calcium 40 mg 09/26/24 22:00 10/06/24 21:02 Atorvastatin Calcium 40 Mg Tablet PO 40 mg QHS REJI Administration Bisacodyl 10 mg 09/26/24 18:15 Bisacodyl 10 Mg Suppository RC X1 PRN Constipation Carvedilol 25 mg 09/26/24 22:00 10/07/24 09:43 Carvedilol 25 Mg Tablet PO Not Given BID REJI Clonazepam 0.25 mg 10/06/24 20:00 10/06/24 21:00 Clonazepam 0.5 Mg Tablet PO 0.25 mg 2000 REJI Administration Cyanocobalamin 5,000 mcg 10/02/24 10:00 10/06/24 09:10 Cyanocobalamin 500 Mcg Tablet PO 5,000 mcg DAILY REJI Administration Hydralazine HCl 50 mg 09/26/24 22:00 10/07/24 04:39 Hydralazine 50 Mg Tablet PO Not Given TID [facility] Protocol Hydrochlorothiazide 12.5 mg 10/04/24 10:00 10/06/24 09:18 Hydrochlorothiazide 12.5mg PO 12.5 mg DAILY REJI Administration Protocol Hydrocortisone Acetate 25 mg 09/27/24 10:00 Hydrocortisone 25 Mg Suppository RC BID PRN PRN hematochezia/rectal pain Sodium Chloride 250 mls @ 15 mls/hr 10/06/24 15:10 10/06/24 23:26 IV Infused DAILY PRN PRN Infusion BLOOD ADMINISTRATION Lactated Ringer's 1,000 mls @ 15 mls/hr 10/07/24 15:30 10/07/24 15:39 IV 15 mls/hr .Q48H REJI Administration Lisinopril 20 mg 09/30/24 22:00 10/07/24 09:44 Lisinopril 20 Mg Tablet PO Not Given BID [facility] Protocol Magnesium Hydroxide 30 ml 09/26/24 18:15 Magnesium Hydroxide 30 Ml Udc PO X1 PRN Constipation Multivitamins 1 tablet 09/27/24 08:00 10/07/24 09:43 Multivitamins,Therapeutic Tablet PO Not Given DAILYCM REJI Ondansetron HCl 4 mg 09/26/24 18:08 Ondansetron Odt 4 Mg Tablet PO Q8H PRN nausea and vomiting Pantoprazole Sodium 40 mg 09/27/24 10:00 10/06/24 09:09 Pantoprazole Sodium 40 Mg Tablet PO 40 mg DAILY REJI Administration Potassium Chloride 40 meq 10/07/24 18:00 Potassium Chloride Oral Tablet 20 Meq PO 10/07/24 18:01 X1 ONE Potassium Chloride 20 meq 10/08/24 08:00 Potassium Chloride Oral Tablet 20 Meq PO DAILYCM REJI Senna/Docusate Sodium 2 tablet 09/26/24 22:00 10/07/24 09:44 Senna/Docusate Sodium 1 Tablet PO Not Given BID REJI Sertraline HCl 100 mg 10/05/24 10:00 10/06/24 09:10 Sertraline 100 Mg Tablet PO 100 mg DAILY REJI Administration Sodium Chloride 10 - 40 ml 10/06/24 15:10 10/06/24 15:35 0.9% Saline Lock 10 Ml Syringe IV 20 ml UD PRN Administration SALINE FLUSH Sucralfate 1 gm 09/26/24 22:00 10/07/24 04:39 Sucralfate 1 Gm Tablet PO Not Given 1HR_ACHS REJI PFSH Medical History Hypertension TIA (transient ischemic attack) Stroke/cerebrovascular accident History of cardiac dysrhythmia Grade I diastolic dysfunction Mild left atrial enlargement History of pulmonary hypertension Chronic leukopenia Obstructive sleep apnea History of depression Pleural effusion Hiatal hernia Breast cancer GERD (gastroesophageal reflux disease) Hyperlipidemia Essential (primary) hypertension Home Medications ?Medication ?Instructions ?Recorded ?Last Taken ?Type multivitamin 1 ea PO DAILY SUPPLEMENT 09/12/15 Unknown History cyanocobalamin (vitamin B-12) 5,000 mcg PO DAILY supplement 09/30/21 Unknown History 5,000 mcg disintegrating tablet elderberry fruit 460 mg-elderberry 1 cap PO DAILY supplement 09/30/21 Unknown History flower 115 mg capsule acetaminophen 500 mg tablet 1,000 mg PO Q6H PRN pain 09/26/24 Unknown History apixaban 5 mg tablet (Eliquis) 5 mg PO BID blood thinner 09/26/24 09/26/24 History aspirin 81 mg tablet 81 mg PO DAILY heart health 09/26/24 09/26/24 History atorvastatin 40 mg tablet (Lipitor) 40 mg PO QHS cholesterol 09/26/24 09/25/24 History carvedilol 12.5 mg tablet 25 mg PO BID blood pressure 09/26/24 09/26/24 History fluorometholone 0.1 % eye 1 drp RIGHT EYE TID FML 09/26/24 09/26/24 History drops,suspension hydralazine 50 mg tablet 50 mg PO TID blood pressure 09/26/24 09/26/24 History ondansetron 4 mg disintegrating 4 mg PO Q8H PRN nausea and vomiting 09/26/24 Unknown History tablet pantoprazole 40 mg granules 40 mg PO DAILY reflux 09/26/24 Unknown History delayed-release for susp in packet (Protonix) bisacodyl 10 mg rectal suppository 10 mg HI X1 PRN Constipation #1 ea 10/07/24 Unknown Rx clonazepam 0.5 mg tablet 0.25 mg (1/2 x 0.5 mg) PO 10/07/24 Unknown Rx #14 tabs hydrochlorothiazide 12.5 mg capsule 12.5 mg PO DAILY #1 cap 10/07/24 Unknown Rx hydrocortisone acetate 25 mg 25 mg HI BID PRN PRN 10/07/24 Unknown Rx rectal suppository hematochezia/rectal pain #12 ea lisinopril 20 mg tablet 20 mg PO BID #1 TAB 10/07/24 Unknown Rx magnesium hydroxide 400 mg/5 mL 30 ml PO X1 PRN Constipation #30 mL 10/07/24 Unknown Rx oral suspension potassium chloride 20 mEq 20 meq PO DAILYCM #1 TAB 10/07/24 Unknown Rx tablet,extended release(part/cryst) sennosides 8.6 mg-docusate sodium 2 tab PO BID #1 TAB 10/07/24 Unknown Rx 50 mg tablet (Stimulant Laxative Plus) sertraline 100 mg tablet 100 mg PO DAILY #1 TAB 10/07/24 Unknown Rx sucralfate 1 gram tablet 1 g PO 1HR_ACHS #1 TAB 10/07/24 Unknown Rx Allergy/AdvReac Type Severity Reaction Status Date / Time Iodinated Contrast Media Allergy Intermediate Rash Verified 09/07/24 15:18 (Iodinated Contrast- Oral and IV Dye) Sulfa (Sulfonamide Allergy Rash Verified 09/07/24 15:18 Antibiotics) Family History Mother CAD (coronary artery disease) Surgical History History of intussusception of intestine History of lung surgery History of left knee replacement History of hernia repair (~07/2016) History of breast reconstruction History of breast biopsy History of total right knee replacement History of partial mastectomy of right breast Status post wrist surgery History of total hysterectomy Social History household members: none housing: house number of children: 2 Smoking Status: Former smoker how long ago did patient quit smoking: > 20 years ago alcohol intake: current alcohol intake frequency: a few times a month details: occasional substance use type: does not use Review of Systems (Anesthesia) ROS Narrative System reviewed and no additional complaints, except as documented.
--- NOTE | 2024-10-07 16:04 | PN_ITS ---
Progress Note Patient has been n.p.o. for upper endoscopy today. She did take her Eliquis last night. All questions and concerns answered prior to procedure. Physical Exam Const alert, oriented x3, no apparent distress and healthy appearing General Appearance: cooperative GI normal to inspection, nondistended, normoactive bowel sounds, soft to palpation, non-tender and non-distended Percussion: normal to percussion Rectal Exam: deferred Assessment & Plan Assessment/Plan (1) Hypercoagulable state: (2) Acute on chronic anemia: (3) Heme positive stool: (4) Embolic stroke: QUALIFIERS: Precerebral and cerebral artery: unspecified cerebral artery Qualified Code(s): I63.40 - Cerebral infarction due to embolism of unspecified cerebral artery PLAN: Plan 79-year-old with complicated medical history including recurrent breast cancer with metastasis and recent ileocecal valve intussusception status post surgery for a bowel obstruction who is currently dealing with anemia in the setting of anticoagulation and antiplatelet therapy. Recommend upper endoscopy to evaluate upper GI tract and if negative she may need colonoscopy and or capsule endoscopy. She was explained alternatives, risk and benefits including wit hstanding bleeding, infection, steps, perforation, need for surgery . She will have an ASA of 3.. 10/07/2024-she was explained alternatives, risk and benefits include not withstanding bleeding, infection, sepsis, perforation, need for urgent . She will have an ASA of 3. Visit Charges Inpatient E&M: 64889 Subs Hosp L2
--- NOTE | 2024-10-07 16:22 | PCM.POST.ANE ---
Anesthesia: Postop Eval I Current Vital Signs Temperature: 98 F Pulse Rate: 67 Blood Pressure: 147/56 Respiratory Rate: 16 Pulse Ox: 99 Oxygen Delivery Method: Room Air Assessment Airway patent: Yes Spontaneous unlabored respirations: Yes Mental status: Awake and Calm nausea: No Vomiting: No Anesthesia Complication: No Fluid Hydration Crystalloid volume administer (ml): 100 Total IV fluid infused: 100 Progress Note Anesthesia document: Postop Eval 1 completed: Yes
--- NOTE | 2024-10-07 16:26 | POSTOPAN2_ITS ---
Anesthesia Postop Eval I Sum Postop Eval Completion status Anesthesia document: Postop Eval 1 completed: Yes Anesthesia Postop Eval I Summary Anesthesia Postop Eval I Summary: Anesthesia Postop Eval I: Assessment Summary Airway patent Yes 10/07/24 16:22 CHILD CARE GROUP [email or web address] Spontaneous unlabored Yes 10/07/24 16:22 CHILD CARE GROUP LEADER.MDOT respirations Mental status Awake,Calm 10/07/24 16:22 CHILD CARE GROUP LEADER.MDOT nausea No 10/07/24 16:22 CHILD CARE GROUP LEADER.MDOT Vomiting No 10/07/24 16:22 CHILD CARE GROUP LEADER.MDOT Anesthesia Postop Eval I: Fluid Summary Crystalloid volume administer 100 10/07/24 16:22 CHILD CARE GROUP LEADER.MDOT (ml) Colloids volume administered ( ml) Blood Product volume administered (ml) Total IV fluid infused 100 10/07/24 16:22 CHILD CARE GROUP LEADER.MDOT Anesthesia Postop Eval I: Summary Notes Anesthesia Complication No 10/07/24 16:22 CHILD CARE GROUP LEADER.MDOT Anesthesia Complication Comment: Post-operative progress note Anesthesia: Postop Eval II Evaluation Mental status: Awake and Calm Pain Level: 0 nausea: No Vomiting: No Complications Anesthesia Complication: No
--- NOTE | 2024-10-07 16:26 | POSTOPAN2_ITS ---
Anesthesia Postop Eval I Sum Postop Eval Completion status Anesthesia document: Postop Eval 1 completed: Yes Anesthesia Postop Eval I Summary Anesthesia Postop Eval I Summary: Anesthesia Postop Eval I: Assessment Summary Airway patent Yes 10/07/24 16:22 INSTRUMENTATION CHEMIST.MDOT Spontaneous unlabored Yes 10/07/24 16:22 INSTRUMENTATION CHEMIST.MDOT respirations Mental status Awake,Calm 10/07/24 16:22 INSTRUMENTATION CHEMIST.MDOT nausea No 10/07/24 16:22 INSTRUMENTATION CHEMIST.MDOT Vomiting No 10/07/24 16:22 INSTRUMENTATION CHEMIST.MDOT Anesthesia Postop Eval I: Fluid Summary Crystalloid volume administer 100 10/07/24 16:22 INSTRUMENTATION CHEMIST.MDOT (ml) Colloids volume administered ( ml) Blood Product volume administered (ml) Total IV fluid infused 100 10/07/24 16:22 INSTRUMENTATION CHEMIST.MDOT Anesthesia Postop Eval I: Summary Notes Anesthesia Complication No 10/07/24 16:22 INSTRUMENTATION CHEMIST.MDOT Anesthesia Complication Comment: Post-operative progress note Anesthesia: Postop Eval II Evaluation Mental status: Awake and Calm Pain Level: 0 nausea: No Vomiting: No Complications Anesthesia Complication: No
--- NOTE | 2024-10-07 16:26 | PCM.POSTANE2 ---
Anesthesia Postop Eval I Sum Postop Eval Completion status Anesthesia document: Postop Eval 1 completed: Yes Anesthesia Postop Eval I Summary Anesthesia Postop Eval I Summary: Anesthesia Postop Eval I: Assessment Summary Airway patent Yes 10/07/24 16:22 JUNIOR [email or web address] Spontaneous unlabored Yes 10/07/24 16:22 JUNIOR BUYER.MDOT respirations Mental status Awake,Calm 10/07/24 16:22 JUNIOR [email or web address].MDOT nausea No 10/07/24 16:22 JUNIOR BUYER.MDOT Vomiting No 10/07/24 16:22 JUNIOR [email or web address] Anesthesia Postop Eval I: Fluid Summary Crystalloid volume administer 100 10/07/24 16:22 JUNIOR BUYER.MDOT (ml) Colloids volume administered ( ml) Blood Product volume administered (ml) Total IV fluid infused 100 10/07/24 16:22 JUNIOR BUYER.MDOT Anesthesia Postop Eval I: Summary Notes Anesthesia Complication No 10/07/24 16:22 JUNIOR BUYER.MDOT Anesthesia Complication Comment: Post-operative progress note Anesthesia: Postop Eval II Evaluation Mental status: Awake and Calm Pain Level: 0 nausea: No Vomiting: No Complications Anesthesia Complication: No
--- NOTE | 2024-10-07 16:26 | PCM.POSTANE2 ---
Anesthesia Postop Eval I Sum Postop Eval Completion status Anesthesia document: Postop Eval 1 completed: Yes Anesthesia Postop Eval I Summary Anesthesia Postop Eval I Summary: Anesthesia Postop Eval I: Assessment Summary Airway patent Yes 10/07/24 16:22 CHEESE [email or web address] Spontaneous unlabored Yes 10/07/24 16:22 CHEESE TESTER.MDOT respirations Mental status Awake,Calm 10/07/24 16:22 CHEESE TESTER.MDOT nausea No 10/07/24 16:22 CHEESE TESTER.MDOT Vomiting No 10/07/24 16:22 CHEESE TESTER.MDOT Anesthesia Postop Eval I: Fluid Summary Crystalloid volume administer 100 10/07/24 16:22 CHEESE TESTER.MDOT (ml) Colloids volume administered ( ml) Blood Product volume administered (ml) Total IV fluid infused 100 10/07/24 16:22 CHEESE TESTER.MDOT Anesthesia Postop Eval I: Summary Notes Anesthesia Complication No 10/07/24 16:22 CHEESE TESTER.MDOT Anesthesia Complication Comment: Post-operative progress note Anesthesia: Postop Eval II Evaluation Mental status: Awake and Calm Pain Level: 0 nausea: No Vomiting: No Complications Anesthesia Complication: No
--- NOTE | 2024-10-07 16:29 | OP.CCLET_ITS ---
10/07/2024 Miladys Del Valle [address] [place] [address] Re : [facility] This procedure was performed on Monday, October 07, 2024. My impressions and recommendations are as follows: Impressions : - Normal esophagus. - No gross lesions in the entire stomach. - No gross lesions in the entire examined duodenum. - No specimens collected. Recommendations : - [facility]. - Resume previous diet. - Consider colonoscopy to evaluate patient's surgical site as possible site of GI blood loss - Continue present medications. My findings are described in the full procedure note, which is enclosed. If I can be of further assistance, please feel free to contact me at . Sincerely, Biju Alvarez, 10/07/2024 4:29:02 PM This report has been signed electronically.
--- NOTE | 2024-10-07 16:29 | OP.CCLET_ITS ---
10/07/2024 Miladys Del Valle [address] [place] [address] Re : [facility] Del [facility] This procedure was performed on Monday, October 07, 2024. My impressions and recommendations are as follows: Impressions : - Normal esophagus. - No gross lesions in the entire stomach. - No gross lesions in the entire examined duodenum. - No specimens collected. Recommendations : - [facility]. - Resume previous diet. - Consider colonoscopy to evaluate patient's surgical site as possible site of GI blood loss - Continue present medications. My findings are described in the full procedure note, which is enclosed. If I can be of further assistance, please feel free to contact me at . Sincerely, Biju Alvarez, 10/07/2024 4:29:02 PM This report has been signed electronically.
--- NOTE | 2024-10-07 16:29 | OP.EGD_ITS ---
Patient Name: Marina Levi Procedure Date: 10/07/2024 4:09 PM Date of : 1945 Age: 79 Procedure: Upper GI endoscopy Indications: Iron deficiency anemia, Heme positive stool, Melena Providers: Biju Alvarez DO Medicines: Monitored Anesthesia Care Patient Profile: This is a 79 year old female. Refer to note in patient chart for documentation of history and physical. Patient has symptoms. Her most recent EGD for treatment of bleeding and EGD for ulcer treatment. Complications: No immediate complications. Procedure: Pre-Anesthesia Assessment: - Prior to the procedure, a History and Physical was performed, and patient medications and allergies were reviewed. The patient is competent. The risks and benefits of the procedure and the sedation options and risks were discussed with the patient. All questions were answered and informed consent was obtained. Patient identification and proposed procedure were verified by the physician in the pre-procedure area. Mental Status Examination: alert and oriented. Airway Examination: normal oropharyngeal airway and neck mobility. Respiratory Examination: clear to auscultation. CV Examination: normal. Prophylactic Antibiotics: The patient does not require prophylactic antibiotics. Prior Anticoagulants: The patient has taken no anticoagulant or antiplatelet agents. ASA Grade Assessment: II - A patient with mild systemic disease. After reviewing the risks and benefits, the patient was deemed in satisfactory condition to undergo the procedure. The anesthesia plan was to use monitored anesthesia care (MAC). Immediately prior to administration of medications, the patient was re-assessed for adequacy to receive sedatives. The heart rate, respiratory rate, oxygen saturations, blood pressure, adequacy of pulmonary ventilation, and response to care were monitored throughout the procedure. The physical status of the patient was re-assessed after the procedure. After obtaining informed consent, the endoscope was passed under direct vision. Throughout the procedure, the patient's blood pressure, pulse, and oxygen saturations were monitored continuously. The Endoscope was introduced through the mouth, and advanced to the jejunum. Small bowel enteroscopy was deemed necessary. The upper GI endoscopy was accomplished without difficulty. The patient tolerated the procedure well. Scope In: 4:18:39 PM Scope Out: 4:20:53 PM Total Procedure Duration Time 0 hours 2 minutes 14 seconds Findings: The examined esophagus was normal. No gross lesions were noted in the entire examined stomach. No gross lesions were noted in the entire examined duodenum. Impression: - Normal esophagus. - No gross lesions in the entire stomach. - No gross lesions in the entire examined duodenum. - No specimens collected. Recommendation: - [facility]. - Resume previous diet. - Consider colonoscopy to evaluate patient's surgical site as possible site of GI blood loss - Continue present medications. Procedure Code(s): --- Professional --- 29582, Small intestinal endoscopy, enteroscopy beyond second portion of duodenum, not including ileum; diagnostic, including collection of specimen(s) by brushing or washing, when performed (separate procedure) CPT copyright 2021 [employer]. All rights reserved. The codes documented in this report are preliminary and upon special programs director review may be revised to meet current compliance requirements. Biju Alvarez DO 10/07/2024 4:29:02 PM This report has been signed electronically. Number of Addenda: 0 Note Initiated On: 10/07/2024 4:09 PM
--- NOTE | 2024-10-07 16:29 | OP.EGD_ITS ---
Patient Name: Marina Levi Procedure Date: 10/07/2024 4:09 PM Date of : 1945 Age: 79 Procedure: Upper GI endoscopy Indications: Iron deficiency anemia, Heme positive stool, Melena Providers: Biju Alvarez DO Medicines: Monitored Anesthesia Care Patient Profile: This is a 79 year old female. Refer to note in patient chart for documentation of history and physical. Patient has symptoms. Her most recent EGD for treatment of bleeding and EGD for ulcer treatment. Complications: No immediate complications. Procedure: Pre-Anesthesia Assessment: - Prior to the procedure, a History and Physical was performed, and patient medications and allergies were reviewed. The patient is competent. The risks and benefits of the procedure and the sedation options and risks were discussed with the patient. All questions were answered and informed consent was obtained. Patient identification and proposed procedure were verified by the physician in the pre-procedure area. Mental Status Examination: alert and oriented. Airway Examination: normal oropharyngeal airway and neck mobility. Respiratory Examination: clear to auscultation. CV Examination: normal. Prophylactic Antibiotics: The patient does not require prophylactic antibiotics. Prior Anticoagulants: The patient has taken no anticoagulant or antiplatelet agents. ASA Grade Assessment: II - A patient with mild systemic disease. After reviewing the risks and benefits, the patient was deemed in satisfactory condition to undergo the procedure. The anesthesia plan was to use monitored anesthesia care (MAC). Immediately prior to administration of medications, the patient was re-assessed for adequacy to receive sedatives. The heart rate, respiratory rate, oxygen saturations, blood pressure, adequacy of pulmonary ventilation, and response to care were monitored throughout the procedure. The physical status of the patient was re-assessed after the procedure. After obtaining informed consent, the endoscope was passed under direct vision. Throughout the procedure, the patient's blood pressure, pulse, and oxygen saturations were monitored continuously. The Endoscope was introduced through the mouth, and advanced to the jejunum. Small bowel enteroscopy was deemed necessary. The upper GI endoscopy was accomplished without difficulty. The patient tolerated the procedure well. Scope In: 4:18:39 PM Scope Out: 4:20:53 PM Total Procedure Duration Time 0 hours 2 minutes 14 seconds Findings: The examined esophagus was normal. No gross lesions were noted in the entire examined stomach. No gross lesions were noted in the entire examined duodenum. Impression: - Normal esophagus. - No gross lesions in the entire stomach. - No gross lesions in the entire examined duodenum. - No specimens collected. Recommendation: - [facility]. - Resume previous diet. - Consider colonoscopy to evaluate patient's surgical site as possible site of GI blood loss - Continue present medications. Procedure Code(s): --- Professional --- 77093, Small intestinal endoscopy, enteroscopy beyond second portion of duodenum, not including ileum; diagnostic, including collection of specimen(s) by brushing or washing, when performed (separate procedure) CPT copyright 2021 [employer]. All rights reserved. The codes documented in this report are preliminary and upon office machine installer review may be revised to meet current compliance requirements. Biju Alvarez DO 10/07/2024 4:29:02 PM This report has been signed electronically. Number of Addenda: 0 Note Initiated On: 10/07/2024 4:09 PM
--- NOTE | 2024-10-07 16:49 | NURSING ---
Updated daughter Michel that upper GI was completed.
--- NOTE | 2024-10-07 16:49 | NURSING ---
Updated daughter Michel that upper GI was completed.
[2024-10-07] MEDS: Potassium Chloride Oral Tablet 20 MEQ 40 MEQ PO (17:37)
[2024-10-08 00:02] VITALS: BMI 34.0
[2024-10-08 01:48] VITALS: PULSE 66; RESP 17; O2SAT 98
[2024-10-08 06:00] VITALS: BP 152/48; PULSE 68; RESP 16; TEMP 37.2; O2SAT 96
[2024-10-08 06:23] VITALS: BP 152/48; PULSE 69
[2024-10-08 07:36] LABS: Hematocrit 30.5 % (37-47); Hemoglobin 10.1 g/dL (12.0-15.0); POSITIVE MORPHOLOGY YES
[2024-10-08] MEDS: Potassium Chloride Oral Tablet 20 MEQ PO (10:04)
[2024-10-08 13:05] VITALS: BMI 34.0
[2024-10-08 13:57] VITALS: BP 119/39
[2024-10-08 16:50] VITALS: BP 137/45; PULSE 75; RESP 16; TEMP 36.8; O2SAT 93
[2024-10-08] MEDS: APIXABAN 5 MG TABLET PO (20:34)
[2024-10-08 20:35] VITALS: BP 145/44; PULSE 71; RESP 17; TEMP 36.8; O2SAT 92
[2024-10-09 03:22] VITALS: BMI 34.0
[2024-10-09 06:55] VITALS: BP 134/48; PULSE 68; RESP 17; TEMP 37.2; O2SAT 92
[2024-10-09 07:27] VITALS: BP 134/48; PULSE 68
[2024-10-09] MEDS: Potassium Chloride Oral Tablet 20 MEQ PO (07:28)
[2024-10-09] MEDS: APIXABAN 5 MG TABLET PO ×2 (07:32→07:33)
[2024-10-09 09:56] VITALS: BP 108/36; PULSE 65
[2024-10-09 11:31] VITALS: BP 94/22; PULSE 67
[2024-10-09 13:35] VITALS: BP 94/22; PULSE 68; RESP 17; TEMP 37.2; O2SAT 97
== END 2024-10-09 13:35 | disposition skilled nursing facility (03) | DRG 57 ==
PROVIDERS: Anesthesiology; Internal Medicine Gastroenterology; Admitting Provider Internal Medicine; PCP Internal Medicine; Visit Provider Internal Medicine
PROC: 0DJ08ZZ Inspection of Upper Intestinal Tract, Via Natural or Artificial Opening Endoscopic (ICD-10-PCS; CPT 43235; principal; 2024-10-07 16:25)
DX: I69.318 Other symptoms and signs involving cognitive functions following cerebral infarction (principal); C78.2 Secondary malignant neoplasm of pleura; C78.5 Secondary malignant neoplasm of large intestine and rectum; I47.19 Other supraventricular tachycardia; C79.51 Secondary malignant neoplasm of bone; I50.32 Chronic diastolic (congestive) heart failure; J91.0 Malignant pleural effusion; D68.59 Other primary thrombophilia; I11.0 Hypertensive heart disease with heart failure; D50.9 Iron deficiency anemia, unspecified; E66.9 Obesity, unspecified; C50.919 Malignant neoplasm of unspecified site of unspecified female breast; E78.5 Hyperlipidemia, unspecified; R15.9 Full incontinence of feces; K21.9 Gastro-esophageal reflux disease without esophagitis; F41.9 Anxiety disorder, unspecified; D72.819 Decreased white blood cell count, unspecified; G47.33 Obstructive sleep apnea (adult) (pediatric); R19.5 Other fecal abnormalities; Z87.891 Personal history of nicotine dependence; I49.3 Ventricular premature depolarization; Z79.818 Long term (current) use of other agents affecting estrogen receptors and estrogen levels; R32 Unspecified urinary incontinence; M62.81 Muscle weakness (generalized); Z79.01 Long term (current) use of anticoagulants; N39.42 Incontinence without sensory awareness; Z79.899 Other long term (current) drug therapy; Z79.82 Long term (current) use of aspirin; G47.00 Insomnia, unspecified; Z68.35 Body mass index [BMI] 35.0-35.9, adult; Z87.19 Personal history of other diseases of the digestive system
CPT/HCPCS: 36415; 71046; 80048; 80053; 81001; 82274; 82533; 82607; 82728; 82962; 83540; 83550; 83735; 83880; 84100; 84443; 85014; 85018; 85025; 85027; 85610; 85730; 86850; 86900; 86901; 92507; 92523; 93005; 94668; 97110; 97112; 97116; 97129; 97130; 97162; 97166; 97530; 97535; 97802; 97803; P9016; A4216

== ENCOUNTER → 2025-02-13 | Outpatient (CLI) | payer MEDICARE, OTHER, SELFPAY ==
[2025-02-13 15:09] LABS: Hematocrit 33.0 % (37-47); Hemoglobin 10.1 g/dL (12.0-15.0); Immature Granulocytes Count 0.080 X10^3/uL (0.0-0.0); Mean Corp Hgb Conc 30.6 g/dL (32-36); Mean Corpuscular Volume 105.1 fL (81-99); Mean Platelet Vol. 10.6 fl (6.2-12.0); NRBC Flagged by Analyzer 0 % (0-5); Platelet Count 363 K/mm3 (150-450); RBC Distribution Width CV 15.9 % (11.6-14.6); RBC Distribution Width SD 61.4 fl (35.1-43.9); Red Blood Count 3.14 M/mm3 (4.2-5.4); White Blood Count 9.5 K/mm3 (4.4-11.0)
[2025-02-13 15:48] LABS: Anion Gap 12 (5-15); BUN 21 mg/dL (4-19); BUN/Creat Ratio 14.3 RATIO (10-20); Calcium,Total 9.2 mg/dL (7.6-11.0); Carbon Dioxide 29.6 mmol/L (21.0-32.0); Chloride 97 mmol/L (98-108); Glucose 90 mg/dL (70-99); Potassium 3.7 mmol/L (3.3-5.1); Pro- Brain NATRIURETIC PEPTIDE 371 pg/mL (<=1800)
== END | disposition home or self-care (01) ==
LOC: CIMLAB 12:06
PROVIDERS: PCP Internal Medicine; Referring Provider Internal Medicine; Visit Provider Internal Medicine
DX: I50.9 Heart failure, unspecified (principal)
CPT/HCPCS: 36415; 80048; 83880; 85025